=== PATIENT | male | born 1960 | race Caucasian/White ===

== ENCOUNTER 2016-11-06 10:56 | Emergency (ER) | payer OTHER ==
[~2016-11-06] VITALS: Ht 172.7 cm; Wt 51.0 kg
[~2016-11-06 10:56] MED LIST: CLON-379 PO; HYDR-3498 PO; LANT3I SC; METO-429 PO; MYCO160 PO; NIFE30TA66 PO; PRED-253 PO; PROM25TA14 PO; TACR1CAP26 PO
[2016-11-06 11:07] VITALS: Ht 172.7 cm; Wt 51.0 kg
[2016-11-06] MEDS ORDERED: CEPH-443 PO (11:49)
--- NOTE | 2016-11-06 12:04 | ERD ---
ER Documentation Chief Complaint Date/Time DATE: 11/06/16 TIME: 12:02 Chief Complaint R hand thump pain x 6 days from cut, pt DM and R kidney tx. HPI Patient is insulin-dependent diabetic he has a right kidney transplant for 1 year. He is a 6 days ago he cut his right thumb and currently it is painful. He thinks it is infected. No fevers or chills ROS All systems reviewed and are negative except as per history of present illness. Medications Home Meds Active Scripts Cephalexin* (Keflex*) 500 Mg Capsule, 500 MG PO QID for 5 Days, CAP Prov:DILLAN FLORES DO 11/06/16 Hydrocodone Bit-Acetaminophen* ([place]*) 5-325 Mg Tab, 1 TAB PO Q4H, #10 TAB Prov:GREENRAYO DO 04/28/16 Promethazine Hcl* (Phenergan*) 25 Mg Tablet, 25 MG PO Q6H Y for NAUSEA, #14 TAB Prov:GREENMOLLYRAYO DO 04/28/16 Nifedipine* (Procardia XL*) 30 Mg/Bottle Tab.osm.24, 30 MG PO DAILY, #30 TAB.SA FOR BP >140 Prov:GONZALO CR PAPER SHEETER 04/14/15 Metoprolol Tartrate* (Lopressor*) 50 Mg Tab, 50 MG PO BID, #60 TAB Prov:GONZALO CR PAPER SHEETER 04/14/15 Reported Medications Insulin Glargine* (Lantus*) 100 Unit/Ml Soln, 10 UNIT SC QAM, #1 VIAL 04/28/16 Mycophenolate Sodium* (Myfortic*) 180 Mg Tab, 540 MG PO BID, TAB 06/03/14 Clonidine Hcl* (Clonidine Hcl*) 0.1 Mg Tab, 0.1 MG PO Q4H Y for ELEVATED BLOOD PRESSURE, TAB PRN FOR SBP>160 06/03/14 Prednisone (Prednisone) 5 Mg Tablet, 5 MG PO DAILY, 0 Refills 11/26/10 Tacrolimus* (Prograf*) 1 Mg Capsule, 3 MG PO BID, 0 Refills 11/26/10 Allergies Allergies: Coded Allergies: magnesium (Verified Allergy, Intermediate, 11/06/16) NUMBNESS AND HOT FUSHES PMhx/Soc History of Surgery: Yes (RENAL TRANSPLANT,) Anesthesia Reaction: No Hx 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 Disorder: No Hx Respiratory Disorders: No Hx Cardiac Disorders: Yes (HTN) Hx Psychiatric Problems: No Hx Miscellaneous Medical Probl: Yes (prior polysubstance abuse) Hx Alcohol Use: Yes (2 CANS OF BEER) Hx Substance Use: No Hx Tobacco Use: Yes Smoking Status: Current every day smoker Physical Exam Vitals Vital Signs Date Time Temp Pulse Resp B/P Pulse Ox O2 Delivery O2 Flow Rate FiO2 11/06/16 11:07 98.1 67 16 123/76 98 Physical Exam Const: [] Head: Atraumatic Eyes: Normal Conjunctiva ENT: Normal External Ears, Nose and Mouth. Neck: Full range of motion..~ No meningismus. Resp: Clear to auscultation bilaterally Cardio: Regular rate and rhythm, no murmurs Abd: Soft, non tender, non distended. Normal bowel sounds Skin: No petechiae or rashes Back: No midline or flank tenderness Ext: No cyanosis, . He has a few fingers that have been amputated distally. His right thumb at the distal edge has mild to moderate tenderness to palpation with very faint eschar no warmth no erythema no fluctuance no induration. Neur: Awake and alert Psych: Normal Mood and Affect Procedures/MDM This may be an early infection so I will treat him with antibiotics Keflex. At this point I doubt it is osteomyelitis since it is too early is no fevers or chills. His skin is mostly intact. Differential includes abscess or cellulitis or gangrenous finger dry gangrene or wet gangrene or osteomyelitis. Departure Diagnosis: Primary Impression: Pain of finger of right hand Condition: Stable Patient Instructions: Staph Infection (non-MRSA) DILLAN FLORES DO Nov 06, 2016 12:04
== END 2016-11-06 12:00 | disposition home or self-care (01) ==
LOC: FTE 10:56
DX: M79.641 Pain in right hand (principal); E11.9 Type 2 diabetes mellitus without complications; I10 Essential (primary) hypertension; F17.210 Nicotine dependence, cigarettes, uncomplicated; Z79.4 Long term (current) use of insulin
CPT/HCPCS: 99283

== ENCOUNTER 2016-11-14 15:31 | Emergency (ER) | payer OTHER ==
[~2016-11-14] VITALS: Wt 50.5 kg
[~2016-11-14 15:31] MED LIST changes: +CEPH-443 PO
--- NOTE | 2016-11-14 17:00 | RADRPT ---
PROCEDURE: XR Thumb. CLINICAL INDICATION: Right thumb pain TECHNIQUE: Three views of the right thumb are available for review. COMPARISON: None available FINDINGS: There is no acute osseous or articular abnormality. No evidence for fracture. Bone mineral density is preserved. The articular surfaces are smooth without evidence of marginal erosions. There is sof t tissue swelling. Extensive atherosclerotic vascular calcifications are present. IMPRESSION: 1. Soft tissue swelling. 2. No evidence of cortical destruction or soft tissue gas to suggest osteomyelitis. Please note th at MRI is more sensitive in evaluating for early changes of osteomyelitis. 3. Atherosclerotic vascular calcifications. RPTAT: XX .Isiah Sims MD, MD Date Time Electronically viewed and signed by .Isiah Sims MD, on 11/14/2016 16:59 .d/
[2016-11-14] MEDS ORDERED: NEOM28OI TP (17:18)
[2016-11-14] MEDS ORDERED: DOXY100T20 PO (17:18)
--- NOTE | 2016-11-14 17:23 | ERD ---
ER Documentation Chief Complaint Date/Time DATE: 11/14/16 TIME: 17:20 Chief Complaint fingertip "infection" unresolved post antbx, dark area on tip. hx dm, ampt. HPI This 56-year-old male complains of pain in discoloration of his right thumb tip over the last week. He was seen here and prescribed antibiotics. He is here for recheck. There is a dark area on the tip. Denies any restricted range of motion weakness. 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 There is a history of insulin-dependent diabetes, dialysis and renal transplant. 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 ROS All systems reviewed and are negative except as per history of present illness. Medications Home Meds Active Scripts Doxycycline Hyclate* (Doxycycline Hyclate*) 100 Mg Tablet.dr, 100 MG PO BID for 10 Days, #20 TAB Prov:KAYLIN SAUL MD 11/14/16 Neomycin Sutton/Bacitrac Zn/Poly (Triple Antibiotic Ointment) 28 Gm Oint...g., 28 GM TP BID for 10 Days Prov:KAYLIN SAUL MD 11/14/16 Cephalexin* (Keflex*) 500 Mg Capsule, 500 MG PO QID for 5 Days, CAP Prov:DILLAN FLORES DO 11/06/16 Hydrocodone Bit-Acetaminophen* ([place]*) 5-325 Mg Tab, 1 TAB PO Q4H, #10 TAB Prov:RAYO KRAFT DO 04/28/16 Promethazine Hcl* (Phenergan*) 25 Mg Tablet, 25 MG PO Q6H Y for NAUSEA, #14 TAB Prov:GREENRAYO DO 04/28/16 Nifedipine* (Procardia XL*) 30 Mg/Bottle Tab.osm.24, 30 MG PO DAILY, #30 TAB.SA FOR BP >140 Prov:GONZALO CR NP 04/14/15 Metoprolol Tartrate* (Lopressor*) 50 Mg Tab, 50 MG PO BID, #60 TAB Prov:GONZALO CR COSMETIC ACCOUNT COORDINATOR 04/14/15 Reported Medications Insulin Glargine* (Lantus*) 100 Unit/Ml Soln, 10 UNIT SC QAM, #1 VIAL 04/28/16 Mycophenolate Sodium* (Myfortic*) 180 Mg Tab, 540 MG PO BID, TAB 06/03/14 Clonidine Hcl* (Clonidine Hcl*) 0.1 Mg Tab, 0.1 MG PO Q4H Y for ELEVATED BLOOD PRESSURE, TAB PRN FOR SBP>160 06/03/14 Prednisone (Prednisone) 5 Mg Tablet, 5 MG PO DAILY, 0 Refills 11/26/10 Tacrolimus* (Prograf*) 1 Mg Capsule, 3 MG PO BID, 0 Refills 11/26/10 Allergies Allergies: Coded Allergies: magnesium (Verified Allergy, Intermediate, 11/06/16) NUMBNESS AND HOT FUSHES PMhx/Soc History of Surgery: Yes (RENAL TRANSPLANT,) Anesthesia Reaction: No Hx 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 Disorder: No Hx Respiratory Disorders: No Hx Cardiac Disorders: Yes (HTN) Hx Psychiatric Problems: No Hx Miscellaneous Medical Probl: Yes (prior polysubstance abuse, DMII) Hx Alcohol Use: Yes (2 CANS OF BEER) Hx Substance Use: No Hx Tobacco Use: Yes Smoking Status: Former smoker Physical Exam Vitals Vital Signs Date Time Temp Pulse Resp B/P Pulse Ox O2 Delivery O2 Flow Rate FiO2 11/14/16 15:38 97.6 74 20 109/72 98 Physical Exam Const: [] Alert, [id number]. Head: Atraumatic Eyes: Normal Conjunctiva ENT: Normal External Ears, Nose and Mouth. Neck: Full range of motion..~ No meningismus. Resp: Clear to auscultation bilaterally Cardio: Regular rate and rhythm, no murmurs Abd: Soft, non tender, non distended. Normal bowel sounds Skin: No petechiae or rashes. On the tip of the right thumb there is a small superficial fluctuant paronychia type lesion without significant erythema or warmth or streaking prednisone appreciable bony tenderness or deformities. Small amount of purulent discharge is expressed from the fingertip. Back: No midline or flank tenderness Ext: No cyanosis, or edema Neur: Awake and alert Psych: Normal Mood and Affect Procedures/MDM X-ray righ thumb 2V Interpreted by me: Bones: [No fracture] Joints: [No dislocation] Foreign body: [None]. Impression-normal right thumb x-ray Procedure note-the right thumb tip was debrided of a small paronychial lesion and unroofed. The wound was dressed. This patient presents with a history of severe vascular disease and signs of a paronychia which does not appear to result in any significant deeper infection. There is no evidence of tenosynovitis, osteomyelitis currently but patient certainly is at risk given his comorbidities.. Will be treated with doxycycline, instructions for wound care and referral to hand surgeon for further evaluation treatment. Departure Diagnosis: Primary Impression: Paronychia of finger of right hand Additional Impression: Pain of finger Laterality: right Qualified Code: M79.644 - Pain of finger of right hand Condition: Stable Patient Instructions: Paronychia Referrals: LINN ELLSI MD Additional Instructions: X-ray read as normal. Recheck for worsening redness, fevers, new symptoms. See orthopedist for further evaluation and treatment. KAYLIN SAUL MD Nov 14, 2016 17:22
== END 2016-11-14 17:33 | disposition home or self-care (01) ==
LOC: FTE 15:31
DX: L03.011 Cellulitis of right finger (principal); I10 Essential (primary) hypertension; E11.9 Type 2 diabetes mellitus without complications; Z79.4 Long term (current) use of insulin; Z79.84 Long term (current) use of oral hypoglycemic drugs; Z87.891 Personal history of nicotine dependence
CPT/HCPCS: 29125; 73140; Z7502

== ENCOUNTER 2017-02-03 12:28 | Emergency (ER) | payer OTHER ==
[~2017-02-03] VITALS: Ht 157.5 cm; Wt 62.1 kg
[~2017-02-03 12:28] MED LIST changes: +DOXY100T20 PO; +NEOM28OI TP
[2017-02-03 12:31] VITALS: Ht 157.5 cm; Wt 62.1 kg
[2017-02-03] MEDS ORDERED: CEPHALEXIN 500 MG CAP PO ONE (14:00)
[2017-02-03] MEDS ORDERED: TRIMETHOPRIM/SULFAMETHOX (DS) TAB PO ONE (14:00)
[2017-02-03] MEDS ORDERED: NEOM28OI TP (14:13)
[2017-02-03] MEDS ORDERED: CEPH-443 PO (14:13)
[2017-02-03] MEDS ORDERED: BACTDS PO (14:13)
--- NOTE | 2017-02-03 14:15 | ERD ---
ER Documentation Chief Complaint Date/Time DATE: 02/03/17 TIME: 14:13 Chief Complaint left ring figer,nailbed, pain HPI This 56-year-old male complains of some redness and pain near the nail on his left fourth digit. 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 He states that he was cutting his nails may have cut them too short. Denies any fevers, restricted range of motion or weakness. ROS All systems reviewed and are negative except as per history of present illness. Medications Home Meds Active Scripts Cephalexin* (Keflex*) 500 Mg Capsule, 500 MG PO QID for 7 Days, CAP Prov:KAYLIN SAUL MD 02/03/17 Sulfamethoxazole-Trimethoprim* (Bactrim* DS) 800-160 Mg Tab, 1 TAB PO BID for 7 Days, TAB Prov:KAYLIN SAUL MD 02/03/17 Neomycin Sutton/Bacitrac Zn/Poly (Triple Antibiotic Ointment) 28 Gm Oint...g., 28 GM TP TID for 7 Days Prov:KAYLIN SAUL MD 02/03/17 Doxycycline Hyclate* (Doxycycline Hyclate*) 100 Mg Tablet.dr, 100 MG PO BID for 10 Days, #20 TAB Prov:KAYLIN SAUL MD 11/14/16 Neomycin Sutton/Bacitrac Zn/Poly (Triple Antibiotic Ointment) 28 Gm Oint...g., 28 GM TP BID for 10 Days Prov:KAYLIN SAUL MD 11/14/16 Cephalexin* (Keflex*) 500 Mg Capsule, 500 MG PO QID for 5 Days, CAP Prov:DILLAN FLORES DO 11/06/16 Hydrocodone Bit-Acetaminophen* ([place]*) 5-325 Mg Tab, 1 TAB PO Q4H, #10 TAB Prov:RAYO KRAFT DO 04/28/16 Promethazine Hcl* (Phenergan*) 25 Mg Tablet, 25 MG PO Q6H Y for NAUSEA, #14 TAB Prov:RAYO KRAFT DO 04/28/16 Nifedipine* (Procardia XL*) 30 Mg/Bottle Tab.osm.24, 30 MG PO DAILY, #30 TAB.SA FOR BP >140 Prov:GONZALO CR CHILD CARE COORDINATOR 04/14/15 Metoprolol Tartrate* (Lopressor*) 50 Mg Tab, 50 MG PO BID, #60 TAB Prov:GONZALO CR CHILD CARE COORDINATOR 04/14/15 Reported Medications Insulin Glargine* (Lantus*) 100 Unit/Ml Soln, 10 UNIT SC QAM, #1 VIAL 04/28/16 Mycophenolate Sodium* (Myfortic*) 180 Mg Tab, 540 MG PO BID, TAB 06/03/14 Clonidine Hcl* (Clonidine Hcl*) 0.1 Mg Tab, 0.1 MG PO Q4H Y for ELEVATED BLOOD PRESSURE, TAB PRN FOR SBP>160 06/03/14 Prednisone (Prednisone) 5 Mg Tablet, 5 MG PO DAILY, 0 Refills 11/26/10 Tacrolimus* (Prograf*) 1 Mg Capsule, 3 MG PO BID, 0 Refills 11/26/10 Allergies Allergies: Coded Allergies: magnesium (Verified Allergy, Intermediate, 11/06/16) NUMBNESS AND HOT FUSHES PMhx/Soc History of Surgery: Yes (RENAL TRANSPLANT,) Anesthesia Reaction: No Hx 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 Disorder: No Hx Respiratory Disorders: No Hx Cardiac Disorders: Yes (HTN) Hx Psychiatric Problems: No Hx Miscellaneous Medical Probl: Yes (prior polysubstance abuse, DMII) Hx Alcohol Use: Yes (2 CANS OF BEER) Hx Substance Use: No Hx Tobacco Use: Yes Smoking Status: Never smoker Physical Exam Vitals Vital Signs Date Time Temp Pulse Resp B/P Pulse Ox O2 Delivery O2 Flow Rate FiO2 02/03/17 12:31 98.1 83 18 131/85 99 Physical Exam Const: [] Alert, [id number] per Head: Atraumatic Eyes: Normal Conjunctiva ENT: Normal External Ears, Nose and Mouth. Neck: Full range of motion..~ No meningismus. Resp: Clear to auscultation bilaterally Cardio: Regular rate and rhythm, no murmurs Abd: Soft, non tender, non distended. Normal bowel sounds Skin: No petechiae or rashes Back: No midline or flank tenderness Ext: No cyanosis, or edema. There is some redness and tenderness on the lateral aspect of the nail of the left fourth digit. There is no bony tenderness or deformities or significant swelling. Neur: Awake and alert Psych: Normal Mood and Affect Results 24 hrs Current Medications Medications (Trade) Dose Ordered Sig/Kathryn Route PRN Reason Start Time Stop Time Status Last Admin Dose Admin Trimethoprim/ Sulfamethoxazole (Bactrim (Ds)) 1 tab ONCE ONCE PO 02/03/17 14:00 02/03/17 14:01 DC 02/03/17 14:07 Cephalexin (Keflex) 500 mg ONCE ONCE PO 02/03/17 14:00 02/03/17 14:01 DC 02/03/17 14:07 Procedures/[facility] Procedure note- Left fourth digit was prepped with alcohol. The paronychia was debrided and positive pus is expressed. Wound was dressed and patient tolerated procedure well. Patient presents with a paronychia left fourth digit. There is no signs to suggest osteomyelitis, acute ischemia or gangrene. Patient was treated with Bactrim and Keflex instructions to recheck in 2 days otherwise with primary care doctor this week. Return sooner for fevers, redness, new or worsening symptoms with additional discoloration or signs of ischemia. Departure Diagnosis: Primary Impression: Paronychia Laterality: left Qualified Code: L03.012 - Paronychia, left Condition: Stable Patient Instructions: Paronychia Additional Instructions: Recheck for worsening redness, fevers, new or worsening symptoms. KAYLIN SAUL MD Feb 03, 2017 14:15
== END 2017-02-03 14:34 | disposition home or self-care (01) ==
LOC: FTE 12:28
DX: L03.012 Cellulitis of left finger (principal); E11.9 Type 2 diabetes mellitus without complications; I10 Essential (primary) hypertension; Z87.891 Personal history of nicotine dependence
CPT/HCPCS: Z7502; Z7610; 99284

== ENCOUNTER 2017-04-11 13:05 | Emergency (ER) | payer OTHER ==
[~2017-04-11] VITALS: Ht 157.5 cm; Wt 52.0 kg
[~2017-04-11 13:05] MED LIST changes: +BACTDS PO
[2017-04-11 13:19] VITALS: Ht 157.5 cm; Wt 52.0 kg
[2017-04-11] MEDS ORDERED: SOD CHLORIDE 0.9% 1,000 ML IV STA (13:29)
[2017-04-11 14:09] LABS: ADD SCAN DIFF NO
[2017-04-11 14:12] LABS: ABNORMAL IP MESSAGE 1; BASOPHILS % 0.7 % (0.0-2.0); EOSINOPHILS % 0.5 % (0.0-7.0); HEMATOCRIT 48.1 % (42.0-52.0); HEMOGLOBIN 16.1 g/dl (14.0-18.0); LYMPHOCYTES # 0.4 10^3/ul (0.8-2.9); MEAN CORPUSCULAR HEMOGLOBIN 34.5 pg (29.0-33.0); MEAN CORPUSCULAR HGB CONC 33.5 g/dl (32.0-37.0); MEAN CORPUSCULAR VOLUME 103.2 fl (82.0-101.0); MONOCYTE # 0.3 10^3/ul (0.3-0.9); MONOCYTES % 7.4 % (0.0-11.0); NEUTROPHIL # 3.6 10^3/ul (1.6-7.5); NEUTROPHILS % 81.9 % (39.0-77.0); PLATELET COUNT 188 10^3/UL (140-415); RED BLOOD COUNT 4.66 10^6/ul (4.70-6.10); WHITE BLOOD COUNT 4.3 10^3/ul (4.8-10.8)
[2017-04-11 14:15] LABS: ADD UMIC YES; URINE BILIRUBIN (Dip) NEGATIVE (NEGATIVE); URINE BLOOD (Dip) TRACE (NEGATIVE); URINE COLOR LT. YELLOW (YELLOW); URINE GLUCOSE (Dip) NEGATIVE (NEGATIVE); URINE KETONES (Dip) NEGATIVE (NEGATIVE); URINE LEUKOCYTE ESTERASE (Dip) NEGATIVE (NEGATIVE); URINE NITRITE (Dip) NEGATIVE (NEGATIVE); URINE TOTAL PROTEIN (Dip) 2+ (NEGATIVE); URINE UROBILINOGEN (Dip) 0.2 E.U./dL (0.1-1.0)
--- NOTE | 2017-04-11 14:20 | ERD ---
ER Documentation Chief Complaint Date/Time DATE: 04/11/17 TIME: 14:18 Chief Complaint Complains of right finger pain and swelling x 2 days HPI 56-year-old male history of diabetes, history of osteomyelitis comes to emergency department right third digit pain and swelling, headache, generalized weakness, and vomiting. 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 He states that it is clear to yellow drainage and there is pain at the tip of the finger. He also complains of generalized headache, and he threw up one time this morning. He has felt generally weak today. He denies any fevers, chills, neck stiffness, chest pain or abdominal pain. This patient also secondarily comes in with right third digit pain 1 day. 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 Patient's pain today is better. ROS All systems reviewed and are negative except as per history of present illness. Medications Home Meds Active Scripts Hydrocodone/Acetaminophen ([place] 5-325 Tablet) 1 Each Tablet, 1 TAB PO Q6H Y for PAIN, #10 TAB Prov:JEAN-PIERRE CAMPBELL PA-C 04/11/17 Sulfamethoxazole/Trimethoprim* (Bactrim Ds* Tablet) 1 Each Tablet, 1 TAB PO BID , #14 TAB Prov:JEAN-PIERRE CAMPBELL PA-C 04/11/17 Cephalexin* (Keflex*) 500 Mg Capsule, 500 MG PO QID for 7 Days, CAP Prov:JEAN-PIERRE CAMPBELL PA-C 04/11/17 Cephalexin* (Keflex*) 500 Mg Capsule, 500 MG PO QID for 7 Days, CAP Prov:KAYLIN BLUE MD 02/03/17 Sulfamethoxazole-Trimethoprim* (Bactrim* DS) 800-160 Mg Tab, 1 TAB PO BID for 7 Days, TAB Prov:KAYLIN BLUE MD 02/03/17 Neomycin [place]/Bacitrac Zn/Poly (Triple Antibiotic Ointment) 28 Gm Oint...g., 28 GM TP TID for 7 Days Prov:KAYLIN BLUE MD 02/03/17 Doxycycline Hyclate* (Doxycycline Hyclate*) 100 Mg Tablet.dr, 100 MG PO BID for 10 Days, #20 TAB Prov:KAYLIN BLUE MD 11/14/16 Neomycin [place]/Bacitrac Zn/Poly (Triple Antibiotic Ointment) 28 Gm Oint...g., 28 GM TP BID for 10 Days Prov:KAYLIN BLUE MD 11/14/16 Cephalexin* (Keflex*) 500 Mg Capsule, 500 MG PO QID for 5 Days, CAP Prov:DILLAN FLORES DO 11/06/16 Hydrocodone Bit-Acetaminophen* ([place]*) 5-325 Mg Tab, 1 TAB PO Q4H, #10 TAB Prov:RAYO KRAFT DO 04/28/16 Promethazine Hcl* (Phenergan*) 25 Mg Tablet, 25 MG PO Q6H Y for NAUSEA, #14 TAB Prov:RAYO KRAFT DO 04/28/16 Nifedipine* (Procardia XL*) 30 Mg/Bottle Tab.osm.24, 30 MG PO DAILY, #30 TAB.SA FOR BP >140 Prov:GONZALO CR NP 04/14/15 Metoprolol Tartrate* (Lopressor*) 50 Mg Tab, 50 MG PO BID, #60 TAB Prov:GONZALO CR NP 04/14/15 Reported Medications Insulin Glargine* (Lantus*) 100 Unit/Ml Soln, 10 UNIT SC QAM, #1 VIAL 04/28/16 Mycophenolate Sodium* (Myfortic*) 180 Mg Tab, 540 MG PO BID, TAB 06/03/14 Clonidine Hcl* (Clonidine Hcl*) 0.1 Mg Tab, 0.1 MG PO Q4H Y for ELEVATED BLOOD PRESSURE, TAB PRN FOR SBP>160 06/03/14 Prednisone (Prednisone) 5 Mg Tablet, 5 MG PO DAILY, 0 Refills 11/26/10 Tacrolimus* (Prograf*) 1 Mg Capsule, 3 MG PO BID, 0 Refills 11/26/10 Allergies Allergies: Coded Allergies: magnesium (Verified Allergy, Intermediate, 11/06/16) NUMBNESS AND HOT FUSHES PMhx/Soc History of Surgery: Yes (RENAL TRANSPLANT,) Anesthesia Reaction: No Hx 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 Disorder: No Hx Respiratory Disorders: No Hx Cardiac Disorders: Yes (HTN) Hx Psychiatric Problems: No Hx Miscellaneous Medical Probl: Yes (prior polysubstance abuse, DMII) Hx Alcohol Use: Yes (2 CANS OF BEER) Hx Substance Use: No Hx Tobacco Use: Yes Smoking Status: Never smoker Physical Exam Vitals Vital Signs Date Time Temp Pulse Resp B/P Pulse Ox O2 Delivery O2 Flow Rate FiO2 04/11/17 13:19 97.8 77 20 176/94 100 Physical Exam General: Well-developed, well-nourished. The patient appears in no acute distress. HEENT: Head is normocephalic, atraumatic. No scleral icterus. Pupils are equal , round, and reactive. Oral mucous membranes are moist. No pharyngeal erythema. Neck: Supple. Nontender. Lungs: Clear to auscultation. Normal air movement. Heart: Regular rate and rhythm. S1 and S2 are normal. No murmurs, gallops, or rubs. Abdomen: Soft, nontender, nondistended. Bowel sounds are normoactive. Extremities: Multiple amputations of digits, the right third digit nailbed is intact, there is slight erythema and tenderness at the tip of the finger below the nailbed. Right third digit has slight drainage beneath the nail. No erythema, or warmth, cap refill < 2sec. Neurologic: Alert and oriented 3. No focal deficits. Skin: Normal turgor. No rash or lesions. Result Diagram: 04/11/17 1355 04/11/17 1355 Results 24 hrs Laboratory Tests Test 04/11/17 13:55 04/11/17 14:05 White Blood Count 4.310^3/ul Red Blood Count 4.6610^6/ul Hemoglobin 16.1g/dl Hematocrit 48.1% Mean Corpuscular Volume 103.2fl Mean Corpuscular Hemoglobin 34.5pg Mean Corpuscular Hemoglobin Concent 33.5g/dl Red Cell Distribution Width 12.0% Platelet Count 20213^3/UL Mean Platelet Volume 11.0fl Neutrophils % 81.9% Lymphocytes % 9.0% Monocytes % 7.4% Eosinophils % 0.5% Basophils % 0.7% Nucleated Red Blood Cells % 0.0/100WBC Neutrophils # 3.610^3/ul Lymphocytes # 0.410^3/ul Monocytes # 0.310^3/ul Eosinophils # 0.010^3/ul Basophils # 0.010^3/ul Nucleated Red Blood Cells # 0.010^3/ul Sodium Level 144mmol/L Potassium Level 5.4mmol/L Chloride Level 107mmol/L Carbon Dioxide Level 25mmol/L Anion Gap 17 Blood Urea Nitrogen 20mg/dl Creatinine 1.34mg/dl Glucose Level 160mg/dl Calcium Level 10.9mg/dl Total Bilirubin 0.8mg/dl Direct Bilirubin 0.00mg/dl Indirect Bilirubin 0.8mg/dl Aspartate Amino Transf (AST/SGOT) 115IU/L Alanine Aminotransferase (ALT/SGPT) 110IU/L Alkaline Phosphatase 112IU/L Troponin I 0.018ng/ml Total Protein 8.9g/dl Albumin 5.0g/dl Globulin 3.90g/dl Albumin/Globulin Ratio 1.28 Urine Color LT. YELLOW Urine Clarity CLEAR Urine pH 6.0 Urine Specific [place] 1.020 Urine Ketones NEGATIVE Urine Nitrite NEGATIVE Urine Bilirubin NEGATIVE Urine Urobilinogen 0.2 E.U./dL Urine Leukocyte Esterase NEGATIVE Urine Microscopic RBC 2-5/HPF Urine Microscopic WBC 5-10/HPF Urine Hemoglobin TRACE Urine Glucose NEGATIVE% Urine Total Protein 2+ Current Medications Medications (Trade) Dose Ordered Sig/Kathryn Route PRN Reason Start Time Stop Time Status Last Admin Dose Admin Sodium Chloride (NS) 1,000 ml @ 1,000 mls/hr Q1H STAT IV 04/11/17 13:29 04/11/17 14:28 DC 04/11/17 14:37 Morphine Sulfate (morphine) 4 mg ONCE STAT IV 04/11/17 15:02 04/11/17 15:03 DC 04/11/17 15:05 Ondansetron HCl (Zofran Inj) 4 mg ONCE STAT IV 04/11/17 15:02 04/11/17 15:03 DC 04/11/17 15:05 12-lead EKG(interpreted by supervising physician): Dr. Blue Rate/Rhythm: Normal Sinus Rhythm, rate of 67 QRS, ST, T-waves: Nonspecific ST changes, no reciprocal changes, no changes consistent w/ acute ischemia, no intervals, no dysrhythmias, no ectopy Impression: No evidence of ischemia or arrhythmia Patient: MELITA GRIFFIN : 1960 Age: 56 Sex: M MR #: [id number] DOS: 04/11/17 1329 Ordering MD: JEAN-PIERRE CAMPBELL PA-C Location: [facility] Room/Bed: PROCEDURE: XR Chest. CLINICAL INDICATION: Abdominal pain. TECHNIQUE: Single frontal view of the chest was obtained. COMPARISON: Chest x-ray 04/28/2060 09:[address] scan abdomen pelvis 2014. FINDINGS: There is soft tissue calcifications in the medial aspect of the left arm. There are degenerative osteophytes in the thoracic spine. The heart, cardiomediastinal silhouette and hilar structures are normal. The pulmonary vasculature is normal. There is a left-sided aorta. The lungs are mildly hyperinflated with flattening of the diaphragm. There is a stable 1.1 cm calcification projecting over the medial aspect of the left diaphragm. This corresponds to a calcified lymph node or granuloma a resting in the epidural space ventral to the right ventricle. This is seen on the prior CT scan of . The costophrenic angles are normal. IMPRESSION: 1. Soft tissue calcifications are noted in the anterior mediastinum and medial left arm which may relate to renal osteodystrophy. 2. Pulmonary hyperinflation with no evidence of active cardiopulmonary disease in the chest. There is no evidence of pneumoperitoneum. RPTAT:AAJJ Physician Johanny Date Time Electronically viewed and signed by Jonas Ferraro Physician on 04/11/2017 14:46 JM/ CC: JEAN-PIERRE CAMPBELL PA-C PROCEDURE: XR finger CLINICAL INDICATION: Right middle finger pain TECHNIQUE: 3 views of the right middle finger were obtained. COMPARISON: No prior studies are available for comparison. FINDINGS: There is truncation of the third distal tuft, query postoperative change. Cannot exclude infection at the tip. There is also amputation at the head of the second proximal phalanx. There are extensive vascular calcifications. IMPRESSION: 1. Truncation of the third distal tuft, query postoperative change. Cannot exclude osteomyelitis at the tip of and if there is persistent clinical concern recommend MRI. RPTAT: UU .Parveen James MD, Date Time Electronically viewed and signed by .Parveen James MD, on 04/11/2017 14: 48 .K/ CC: JEAN-PIERRE CAMPBELL PA-C Procedures/MDM Number ER course: Patient had a line established, blood and urine were obtained. He was given a fluid bolus of normal saline 1 L, morphine 4 mg and Zofran 4 mg IV for pain. He was reassessed and states that he is feeling much better at this time. MDM: 56-year-old male comes to the ER for generalized weakness, nausea and headache. Patient's workup was essentially benign. There is no evidence of leukocytosis. Patient has a history of hepatitis C, with mild transaminitis. Creatinine is 1.34, he reports that that is been normal and his medical record was reviewed and a few months ago it was approximately 1.3 previously. Potassium was 5.4, there are no EKG changes, including peak T waves. Patient has not been seen previously and his potassium has been 5.3 and 5.0. No signs of sepsis, renal failure. Overall he is feeling fine, he was given fluids and pain medication and feels much better at this time. I will give him a short course of [place] for home for pain control. 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 He states he has had improved pain starting today. Given his history patient recovered with antibiotics. At this time suspicion for osteomyelitis or limb threatening process is low. The case was reviewed and discussed with Dr. Blue who agrees with the plan of care including labs, treatment, and advanced imaging as appropriate. Patient's blood pressure was elevated (>120/80) but appears stable without evidence of hypertension emergency or urgency. The patient was counseled about the risks of hypertension and urged to pursue outpatient monitoring and therapy within a week with their primary care physician. Departure Diagnosis: Primary Impression: General weakness Additional Impression: Pain of finger Condition: Good JEAN-PIERRE CAMPBELL PA-C Apr 11, 2017 14:20
[2017-04-11 14:41] LABS: ALBUMIN/GLOBULIN RATIO 1.28; BILIRUBIN,INDIRECT 0.8 mg/dl (0-1.1); BILIRUBIN,TOTAL 0.8 mg/dl (0.2-1.3); CALCIUM 10.9 mg/dl (8.4-10.2); CREATININE 1.34 mg/dl (0.61-1.24); POTASSIUM 5.4 mmol/L (3.5-5.1); TOTAL PROTEIN 8.9 g/dl (6.1-8.1)
--- NOTE | 2017-04-11 14:46 | RADRPT ---
PROCEDURE: XR Chest. CLINICAL INDICATION: Abdominal pain. TECHNIQUE: Single frontal view of the chest was obtained. COMPARISON: Chest x-ray 04/28/2060 09:[address] scan abdomen pelvis 12/24/2014. FINDINGS: There is soft tissue calcifications in the medial aspect of the left arm. There are degenerative os teophytes in the thoracic spine. The heart, cardiomediastinal silhouette and hilar structures are n ormal. The pulmonary vasculature is normal. There is a left-sided aorta. The lungs are mildly hyper inflated with flattening of the diaphragm. There is a stable 1.1 cm calcification projecting over t he medial aspect of the left diaphragm. This corresponds to a calcified lymph node or granuloma a r esting in the epidural space ventral to the right ventricle. This is seen on the prior CT scan of 0 12/24/2014. The costophrenic angles are normal. IMPRESSION: 1. Soft tissue calcifications are noted in the anterior mediastinum and medial left arm which may re late to renal osteodystrophy. 2. Pulmonary hyperinflation with no evidence of active cardiopulmonary disease in the chest. There is no evidence of pneumoperitoneum. RPTAT:AAJJ Physician Johanny Date Time Electronically viewed and signed by Physician Johanny on 04/11/2017 14:46 MARINE/
--- NOTE | 2017-04-11 14:48 | RADRPT ---
PROCEDURE: XR finger CLINICAL INDICATION: Right middle finger pain TECHNIQUE: 3 views of the right middle finger were obtained. COMPARISON: No prior studies are available for comparison. FINDINGS: There is truncation of the third distal tuft, query postoperative change. Cannot exclude infection at the tip. There is also amputation at the head of the second proximal phalanx. There are extensi ve vascular calcifications. IMPRESSION: 1. Truncation of the third distal tuft, query postoperative change. Cannot exclude osteomyelitis a t the tip of and if there is persistent clinical concern recommend MRI. RPTAT: UU .Parveen James MD, MD Date Time Electronically viewed and signed by .Parveen James MD, on 04/11/2017 14:48 .K/
[2017-04-11 14:53] LABS: TROPONIN-I 0.018 ng/ml (0.00-0.12)
[2017-04-11] MEDS ORDERED: morphine 4 MG/ML VIAL IV STA (15:02)
[2017-04-11] MEDS ORDERED: ONDANSETRON 4 MG INJ IV STA (15:02)
[2017-04-11] MEDS ORDERED: CEPH-443 PO (15:26)
[2017-04-11] MEDS ORDERED: SULF1TAB31 PO (15:26)
[2017-04-11] MEDS ORDERED: HYDR-906 PO (15:26)
[2017-04-11 16:51] VITALS: TEMP 98.2
== END 2017-04-11 16:51 | disposition home or self-care (01) ==
LOC: FTE 13:05
DX: R53.1 Weakness (principal); E11.9 Type 2 diabetes mellitus without complications; I10 Essential (primary) hypertension; Z79.4 Long term (current) use of insulin
CPT/HCPCS: 36415; 71010; 73140; 80053; 81001; 84484; 85025; 87040; 87086; 96374; 96375; J2270; J2405; J7030; Z7502

== ENCOUNTER 2017-05-03 18:29 | Inpatient (IN) | payer OTHER ==
[~2017-05-03] VITALS: Ht 172.7 cm; Wt 52.0 kg
[~2017-05-03 18:29] MED LIST changes: +HYDR-906 PO; +SULF1TAB31 PO
[2017-05-03] MEDS ORDERED: ONDANSETRON 4 MG INJ IV STA (18:50)
[2017-05-03] MEDS ORDERED: morphine 4 MG/ML VIAL IV STA (18:50)
[2017-05-03] MEDS ORDERED: SOD CHLORIDE 0.9% 1,000 ML IV STA (18:50)
[2017-05-03] MEDS ORDERED: ONDANSETRON 4 MG INJ IV PRN (19:00)
[2017-05-03] MEDS ORDERED: ACETAMINOPHEN 325 MG TAB PO PRN ×2 (19:00→20:00)
[2017-05-03 19:21] LABS: ABNORMAL IP MESSAGE 1; BASOPHILS % 0.5 % (0.0-2.0); EOSINOPHILS # 0.1 10^3/ul (0.0-0.5); EOSINOPHILS % 1.9 % (0.0-7.0); HEMATOCRIT 45.8 % (42.0-52.0); HEMOGLOBIN 15.1 g/dl (14.0-18.0); LYMPHOCYTES # 0.5 10^3/ul (0.8-2.9); LYMPHOCYTES % 13.6 % (15.0-51.0); MEAN CORPUSCULAR HEMOGLOBIN 34.6 pg (29.0-33.0); MEAN CORPUSCULAR VOLUME 104.8 fl (82.0-101.0); MEAN PLATELET VOLUME 10.7 fl (7.4-10.4); MONOCYTE # 0.5 10^3/ul (0.3-0.9); MONOCYTES % 13.6 % (0.0-11.0); NEUTROPHIL # 2.6 10^3/ul (1.6-7.5); NEUTROPHILS % 70.1 % (39.0-77.0); PLATELET COUNT 148 10^3/UL (140-415); RED BLOOD COUNT 4.37 10^6/ul (4.70-6.10); RED CELL DISTRIBUTION WIDTH 13.2 % (11.5-14.5); WHITE BLOOD COUNT 3.7 10^3/ul (4.8-10.8)
[2017-05-03 19:23] LABS: ADD SCAN DIFF NO
[2017-05-03 19:56] LABS: ADD UMIC YES; UR ASCORBIC ACID NEGATIVE (NEGATIVE); UR BILIRUBIN (Dip) NEGATIVE (NEGATIVE); UR BLOOD (Dip) NEGATIVE (NEGATIVE); UR CLARITY CLEAR (CLEAR); UR COLOR YELLOW (YELLOW); UR GLUCOSE (Dip) NEGATIVE (NEGATIVE); UR KETONES (Dip) NEGATIVE (NEGATIVE); UR LEUKOCYTE ESTERASE (Dip) NEGATIVE Leu/ul (NEGATIVE); UR NITRITE (Dip) NEGATIVE (NEGATIVE); UR RBC 2 /HPF (0-5); UR SPECIFIC GRAVITY (Dip) 1.013 (1.003-1.030); UR TOTAL PROTEIN (Dip) 1+ mg/dl (NEGATIVE); UR UROBILINOGEN (Dip) NEGATIVE (NEGATIVE)
[2017-05-03] MEDS ORDERED: PANTOPRAZOLE 40 MG INJ IV ONE (20:00)
[2017-05-03] MEDS ORDERED: FUROSEMIDE 40 MG INJ IV ONE (20:00)
[2017-05-03 20:01] LABS: TROPONIN-I 0.032 ng/ml (0.00-0.12)
[2017-05-03 20:07] LABS: ALBUMIN 4.7 g/dl (3.3-4.9); ALBUMIN/GLOBULIN RATIO 1.56; BILIRUBIN,INDIRECT 0.4 mg/dl (0-1.1); BILIRUBIN,TOTAL 0.4 mg/dl (0.2-1.3); CALCIUM 10.6 mg/dl (8.4-10.2); CREATININE 1.46 mg/dl (0.61-1.24); POTASSIUM 4.3 mmol/L (3.5-5.1); TOTAL PROTEIN 7.7 g/dl (6.1-8.1)
--- NOTE | 2017-05-03 20:17 | CONS ---
Date/Time of Note Date/Time of Note DATE: 05/03/17 TIME: 20:17 Assessment/Plan Assessment/Plan Chief Complaint/Hosp Course Impression: 1. pancreatitis with elevated lipase 2. elevated transaminases 3. macrocytic anemia Recommendations: 1. NPO 2. IVF 3. check folic acid and B12 for macrocytic anemia 4. protonix 40 mg po bid 5. stool for occult blood 6. check acute hepatitis panel 7. trend amylase and lipase Problems: Consultation Date/Type/Reason Admit Date/Time Date of Consultation: May 03, 2017 Type of Consultation: GI Reason for Consultation abdominal pain, nausea and vomiting Hx of Present Illness 56-year-old male who is admitted for intractable abdominal pain, nausea and vomiting. He has h/o hypertension and diabetes. He presents with abdominal pain and vomiting. He had a kidney transplant done in 2009. He said that his last creatinine was 1.9 and his usual creatinine is 1.5. He saw his primary doctor last week. He is trying to take all of his antirejection medicines but said that he is vomiting the medications that he is taking. He said that his primary doctor is Dr. Lange. He denies EtOH use. No f, c, cp, sob, dysuria, dysphagia. all point ros administered, pertinent positives and negatives in HPI otherwise negative. Past Medical History Medical History: diabetes, GERD, hypertension, renal disease Past Surgical History s/p kidney transplant Family History Significant Family History: diabetes Social History Alcohol Use: none Smoking Status: Never smoker Drug Use: none Exam/Review of Systems Vital Signs Vitals Vital Signs Date Time Temp Pulse Resp B/P Pulse Ox O2 Delivery O2 Flow Rate FiO2 05/03/17 19:01 73 16 167/99 98 Room Air 05/03/17 18:32 98.8 Exam Constitutional: alert, oriented, well developed Psych: nl mood/affect, no complaints Head: atraumatic, normocephalic Eyes: EOMI, nl conjunctiva, nl lids, nl sclera ENMT: mucosa pink and moist, nl external ears & nose, nl lips & teeth, nl nasal mucosa & septum Neck: non-tender, supple Respiratory: clear to auscultation, normal air movement Cardiovascular: nl pulses, regular rate and rhythm Gastrointestinal: bowel sounds, non-tender, soft 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: nl mental status, nl speech, nl strength Results Result Diagram: 05/03/17190905/03/171909 Results 24 hrs Laboratory Tests Test 05/03/17 19:00 05/03/17 19:10 Urine Color YELLOW Urine Clarity CLEAR Urine pH 5.0 Urine Specific [place] 1.013 Urine Ketones NEGATIVE Urine Nitrite NEGATIVE Urine Bilirubin NEGATIVE Urine Urobilinogen NEGATIVE Urine Leukocyte Esterase NEGATIVE Urine Microscopic RBC 2 Urine Microscopic WBC 0 Urine Hemoglobin NEGATIVE Urine Glucose NEGATIVE Urine Total Protein 1+ H White Blood Count 3.7 L Red Blood Count 4.37 L Hemoglobin 15.1 Hematocrit 45.8 Mean Corpuscular Volume 104.8 H Mean Corpuscular Hemoglobin 34.6 H Mean Corpuscular Hemoglobin Concent 33.0 Red Cell Distribution Width 13.2 Platelet Count 148 # Mean Platelet Volume 10.7 H Neutrophils % 70.1 Lymphocytes % 13.6 L Monocytes % 13.6 H Eosinophils % 1.9 Basophils % 0.5 Nucleated Red Blood Cells % 0.0 Neutrophils # 2.6 Lymphocytes # 0.5 L Monocytes # 0.5 Eosinophils # 0.1 Basophils # 0.0 Nucleated Red Blood Cells # 0.0 Sodium Level 140 Potassium Level 4.3 Chloride Level 105 Carbon Dioxide Level 24 Anion Gap 15 Blood Urea Nitrogen 17 Creatinine 1.46 H Glucose Level 131 Calcium Level 10.6 H Total Bilirubin 0.4 Direct Bilirubin 0.00 Indirect Bilirubin 0.4 Aspartate Amino Transf (AST/SGOT) 97 H Alanine Aminotransferase (ALT/SGPT) 107 H Alkaline Phosphatase 93 Troponin I 0.032 Total Protein 7.7 Albumin 4.7 Globulin 3.00 Albumin/Globulin Ratio 1.56 Lipase 317 H Medications Medications Current Medications Clonidine (Catap[place]) 0.1 mg Q4H PRN PO ELEVATED BLOOD PRESSURE>150; Start at 20:00 Acetaminophen/ Hydrocodone Bitart ([place] (5/325)) 1 tab Q4H PO ; Start 05/03/17 at 20:00 Acetaminophen/ Hydrocodone Bitart ([place] (5/325)) 1 tab Q6H PRN PO PAIN; Start 05/03/17 at 20:00 Insulin Glargine (Lantus) 10 unit QAM SC ; Start 05/04/17 at 09:00 Metoprolol Tartrate (Lopressor) 50 mg BID PO ; Start 05/03/17 at 21:00 Mycophenolate Sodium (Myfortic) 540 mg BID PO ; Start 05/03/17 at 21:00 Nifedipine (Procardia Xl) 30 mg DAILY PO ; Start 05/04/17 at 09:00 Prednisone (Prednisone) 5 mg DAILY PO ; Start 05/04/17 at 09:00 Tacrolimus (Prograf) 3 mg BID PO ; Start 05/03/17 at 21:00 Acetaminophen (Tylenol Tab) 650 mg Q6 PRN PO FEVER GREATER THAN 100.6; Start at 20:00 Pantoprazole (Protonix Iv) 40 mg DAILY@06 IV ; Start 05/04/17 at 06:00 LIZ TEJEDA MD May 03, 2017 20:17
[2017-05-03] MEDS ORDERED: TACROLIMUS 1 MG CAP PO SCH (21:00)
--- NOTE | 2017-05-03 21:15 | ERA ---
ER Documentation Chief Complaint Date/Time DATE: 05/03/17 TIME: 21:13 Chief Complaint mid ap since last night. vomiting today. hx kidney transplant 2009 HPI Patient is a 56-year-old male with hypertension and diabetes who presents with abdominal pain and vomiting. He had a kidney transplant done in 2009. He said that his last creatinine was 1.9 and his usual creatinine is 1.5. He saw his primary doctor last week. He is trying to take all of his antirejection medicines but said that he is vomiting the medications that he is taking. He said that his primary doctor is Dr. Lange. ROS All systems reviewed and are negative except as per history of present illness. Medications Home Meds Active Scripts Hydrocodone/Acetaminophen (Justin 5-325 Tablet) 1 Each Tablet, 1 TAB PO Q6H Y for PAIN, #10 TAB Prov:JEAN-PIERRE CAMPBELL PA-C 04/11/17 Sulfamethoxazole/Trimethoprim* (Bactrim Ds* Tablet) 1 Each Tablet, 1 TAB PO BID , #14 TAB Prov:JEAN-PIERRE CAMPBELL PA-C 04/11/17 Cephalexin* (Keflex*) 500 Mg Capsule, 500 MG PO QID for 7 Days, CAP Prov:JEAN-PIERRE CAMPBELL PA-C 04/11/17 Cephalexin* (Keflex*) 500 Mg Capsule, 500 MG PO QID for 7 Days, CAP Prov:KAYLIN SAUL MD 02/03/17 Sulfamethoxazole-Trimethoprim* (Bactrim* DS) 800-160 Mg Tab, 1 TAB PO BID for 7 Days, TAB Prov:KAYLIN SAUL MD 02/03/17 Neomycin Sutton/Bacitrac Zn/Poly (Triple Antibiotic Ointment) 28 Gm Oint...g., 28 GM TP TID for 7 Days Prov:KAYLIN SAUL MD 02/03/17 Doxycycline Hyclate* (Doxycycline Hyclate*) 100 Mg Tablet.dr, 100 MG PO BID for 10 Days, #20 TAB Prov:KAYLIN SAUL MD 11/14/16 Neomycin Sutton/Bacitrac Zn/Poly (Triple Antibiotic Ointment) 28 Gm Oint...g., 28 GM TP BID for 10 Days Prov:KAYLIN SAUL MD 11/14/16 Cephalexin* (Keflex*) 500 Mg Capsule, 500 MG PO QID for 5 Days, CAP Prov:DILLAN FLORES DO 11/06/16 Hydrocodone Bit-Acetaminophen* (Justin*) 5-325 Mg Tab, 1 TAB PO Q4H, #10 TAB Prov:RAYO KRAFT DO 04/28/16 Promethazine Hcl* (Phenergan*) 25 Mg Tablet, 25 MG PO Q6H Y for NAUSEA, #14 TAB Prov:RAYO KRAFT DO 04/28/16 Nifedipine* (Procardia XL*) 30 Mg/Bottle Tab.osm.24, 30 MG PO DAILY, #30 TAB.SA FOR BP >140 Prov:GONZALO CR TERRAZZO GRINDER 04/14/15 Metoprolol Tartrate* (Lopressor*) 50 Mg Tab, 50 MG PO BID, #60 TAB Prov:GONZALO CR TERRAZZO GRINDER 04/14/15 Reported Medications Insulin Glargine* (Lantus*) 100 Unit/Ml Soln, 10 UNIT SC QAM, #1 VIAL 04/28/16 Mycophenolate Sodium* (Myfortic*) 180 Mg Tab, 540 MG PO BID, TAB 06/03/14 Clonidine Hcl* (Clonidine Hcl*) 0.1 Mg Tab, 0.1 MG PO Q4H Y for ELEVATED BLOOD PRESSURE, TAB PRN FOR SBP>160 06/03/14 Prednisone (Prednisone) 5 Mg Tablet, 5 MG PO DAILY, 0 Refills 11/26/10 Tacrolimus* (Prograf*) 1 Mg Capsule, 3 MG PO BID, 0 Refills 11/26/10 Allergies Allergies: Coded Allergies: magnesium (Verified Allergy, Intermediate, 05/03/17) NUMBNESS AND HOT FUSHES PMhx/Soc History of Surgery: Yes (RENAL TRANSPLANT) Anesthesia Reaction: No Hx 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 Disorder: No Hx Respiratory Disorders: No Hx Cardiac Disorders: Yes (HTN) Hx Psychiatric Problems: No Hx Miscellaneous Medical Probl: Yes (prior polysubstance abuse, DMII) Hx Alcohol Use: Yes (occasionally) Hx Substance Use: Yes (marijuana prescription last used 22 days ago) Hx Tobacco Use: No Smoking Status: Never smoker FmHx Family History: diabetes Physical Exam Vitals Vital Signs Date Time Temp Pulse Resp B/P Pulse Ox O2 Delivery O2 Flow Rate FiO2 05/03/17 19:01 73 16 167/99 98 Room Air 05/03/17 18:32 98.8 77 16 181/100 100 Physical Exam Const: Moderate distress Head: Atraumatic Eyes: Normal Conjunctiva ENT: Normal External Ears, Nose and Mouth. Neck: Full range of motion..~ No meningismus. Resp: Clear to auscultation bilaterally Cardio: Regular rate and rhythm, no murmurs Abd: Soft, diffuse tenderness to palpation without rebound or guarding Skin: No petechiae or rashes Back: No midline or flank tenderness Ext: No cyanosis, or edema Neur: Awake and alert Psych: Normal Mood and Affect Result Diagram: 05/03/17190905/03/171909 Results 24 hrs Laboratory Tests Test 05/03/17 19:00 05/03/17 19:10 Urine Color YELLOW Urine Clarity CLEAR Urine pH 5.0 Urine Specific [place] 1.013 Urine Ketones NEGATIVEmg/dL Urine Nitrite NEGATIVEmg/dL Urine Bilirubin NEGATIVEmg/dL Urine Urobilinogen NEGATIVEmg/dL Urine Leukocyte Esterase NEGATIVELeu/ul Urine Microscopic RBC 2/HPF Urine Microscopic WBC 0/HPF Urine Hemoglobin NEGATIVEmg/dL Urine Glucose NEGATIVEmg/dL Urine Total Protein 1+mg/dl White Blood Count 3.710^3/ul Red Blood Count 4.3710^6/ul Hemoglobin 15.1g/dl Hematocrit 45.8% Mean Corpuscular Volume 104.8fl Mean Corpuscular Hemoglobin 34.6pg Mean Corpuscular Hemoglobin Concent 33.0g/dl Red Cell Distribution Width 13.2% Platelet Count 18918^3/UL Mean Platelet Volume 10.7fl Neutrophils % 70.1% Lymphocytes % 13.6% Monocytes % 13.6% Eosinophils % 1.9% Basophils % 0.5% Nucleated Red Blood Cells % 0.0/100WBC Neutrophils # 2.610^3/ul Lymphocytes # 0.510^3/ul Monocytes # 0.510^3/ul Eosinophils # 0.110^3/ul Basophils # 0.010^3/ul Nucleated Red Blood Cells # 0.010^3/ul Sodium Level 140mmol/L Potassium Level 4.3mmol/L Chloride Level 105mmol/L Carbon Dioxide Level 24mmol/L Anion Gap 15 Blood Urea Nitrogen 17mg/dl Creatinine 1.46mg/dl Glucose Level 131mg/dl Calcium Level 10.6mg/dl Total Bilirubin 0.4mg/dl Direct Bilirubin 0.00mg/dl Indirect Bilirubin 0.4mg/dl Aspartate Amino Transf (AST/SGOT) 97IU/L Alanine Aminotransferase (ALT/SGPT) 107IU/L Alkaline Phosphatase 93IU/L Troponin I 0.032ng/ml Total Protein 7.7g/dl Albumin 4.7g/dl Globulin 3.00g/dl Albumin/Globulin Ratio 1.56 Lipase 317U/L Current Medications Medications (Trade) Dose Ordered Sig/Kathryn Route PRN Reason Start Time Stop Time Status Last Admin Dose Admin Sodium Chloride (NS) 1,000 ml @ 1,000 mls/hr Q1H STAT IV 05/03/17 18:50 05/03/17 19:49 DC 05/03/17 19:19 Morphine Sulfate (morphine) 4 mg ONCE STAT IV 05/03/17 18:50 05/03/17 18:52 DC 05/03/17 19:19 Ondansetron HCl (Zofran Inj) 4 mg ONCE STAT IV 05/03/17 18:50 05/03/17 18:52 DC 05/03/17 19:19 Ondansetron HCl (Zofran Inj) 4 mg BRIDGE ORDER PRN IV NAUSEA AND/OR VOMITING 05/03/17 19:00 05/03/17 19:50 DC Acetaminophen (Tylenol Tab) 650 mg ER BRIDGE PRN PO MILD PAIN/FEVER 05/03/17 19:00 05/03/17 19:50 DC Clonidine (Catapres) 0.1 mg Q4H PRN PO ELEVATED BLOOD PRESSURE>150 05/03/17 20:00 05/03/17 20:56 Acetaminophen/ Hydrocodone Bitart ([place]in (5/325)) 1 tab Q4H PO 05/03/17 20:00 Acetaminophen/ Hydrocodone Bitart ([place] (5/325)) 1 tab Q6H PRN PO PAIN 05/03/17 20:00 Insulin Glargine (Lantus) 10 unit QAM SC 05/04/17 09:00 Metoprolol Tartrate (Lopressor) 50 mg BID PO 05/03/17 21:00 Mycophenolate Sodium (Myfortic) 540 mg BID PO 05/03/17 21:00 Nifedipine (Procardia Xl) 30 mg DAILY PO 05/04/17 09:00 Prednisone (Prednisone) 5 mg DAILY PO 05/04/17 09:00 Tacrolimus (Prograf) 3 mg BID PO 05/03/17 21:00 Furosemide (Lasix) 40 mg ONCE ONCE IV 05/03/17 20:00 05/03/17 20:00 DC Furosemide (Lasix) 40 mg DAILY IV 05/04/17 09:00 05/04/17 09:00 DC Acetaminophen (Tylenol Tab) 650 mg Q6 PRN PO FEVER GREATER THAN 100.6 05/03/17 20:00 Pantoprazole (Protonix Iv) 40 mg ONCE ONCE IV 05/03/17 20:00 05/03/17 20:01 DC 05/03/17 20:08 Pantoprazole (Protonix Iv) 40 mg DAILY@06 IV 05/04/17 06:00 05/04/17 06:00 DC Insulin Aspart (Novolog Insulin Pen) NOVOLOG *MILD* ALGORITHM WITH MEALS BEDTIME SC 05/03/17 21:00 UNV Miscellaneous Information (* Miscellaneous Pharmacy Order) HYPOGLYCEMIA PROTOCOL w... ONCE ONCE XX 05/03/17 20:30 05/03/17 20:31 UNV Miscellaneous Information (* Miscellaneous Pharmacy Order) Discontinue Glyburide, Glipizide,... ONCE ONCE XX 05/03/17 20:30 05/03/17 20:31 UNV Miscellaneous Information Discontinue all previ... ONCE ONCE XX 05/03/17 20:30 05/03/17 20:31 UNV Lactated Ringer's (Lr) 1,000 ml @ 120 mls/hr Q8H20M IV 05/03/17 21:00 UNV Procedures/MDM EKG read by me: Rate/Rhythm: Regular rate and rhythm at a normal rate Intervals: Normal Impression: No evidence of ischemia or arrhythmia Patient is a 56-year-old male with kidney transplant, dialysis, and hypertension who presents with intractable abdominal pain and vomiting. I am concerned about his vomiting because he is unable to keep his antirejection medications down. Therefore I do think that he requires morphine, Zofran, and IV fluids. I believe he requires admission to the hospital. I spoke with Dr. Maier who was admitted him in the past and Dr. Maier agrees to admit him to the hospital again to a medical surgical bed. At this point I doubt kidney rejection, appendicitis, cholecystitis, or bowel obstruction. He does have a mild elevation of his lipase but at this point I doubt pancreatitis. Departure Diagnosis: Primary Impression: Intractable vomiting Qualified Code: R11.2 - Intractable vomiting with nausea, unspecified vomiting type Additional Impression: Abdominal pain Qualified Code: R10.84 - Generalized abdominal pain Condition: BENJAMIN Mccann MD May 03, 2017 21:15
[2017-05-03] MEDS: INSULIN ASPART [NOVOLOG] 3 ML PEN SC SCH (21:30)
[2017-05-03] MEDS: LACTATED RINGER'S 1,000 ML IV SCH (21:58)
[2017-05-03] MEDS ORDERED: DEXTROSE 50% 50 ML SYRINGE IV PRN ×2 (22:00)
[2017-05-03] MEDS ORDERED: GLUCOSE GEL 15 GRAM TUBE BUCCAL PRN (22:00)
[2017-05-03] MEDS ORDERED: GLUCAGON 1 MG INJ IM PRN (22:00)
[2017-05-03] MEDS ORDERED: GLUCOSE GEL 15 GRAM TUBE PO PRN ×2 (22:00)
[2017-05-03] MEDS: MYCOPHENOLATE (SR) 180 MG TAB PO SCH (22:21)
[2017-05-03] MEDS: TACROLIMUS 0.5 MG CAP PO SCH ×2 (22:21→22:42)
[2017-05-03 22:50] VITALS: Ht 172.7 cm; Wt 52.0 kg
[2017-05-03 23:09] VITALS: PULSE 63
[2017-05-03] MEDS: HYDROCODONE/APAP (5/325) TAB PO SCH ×2 (23:11→23:48)
[2017-05-03] MEDS: METOPROLOL 50 MG TAB PO SCH (23:18)
[2017-05-04] VITALS (11 sets, daily range): BP systolic 103–179; BP diastolic 64–100; PULSE 50–69; RESP 18–20
[2017-05-04] MEDS: ACCUCHECK AT 2AM (Patients on SS coverage) XX SCH (02:00)
[2017-05-04] MEDS: HYDROCODONE/APAP (5/325) TAB PO SCH ×4 (04:08→16:11)
[2017-05-04] MEDS: LACTATED RINGER'S 1,000 ML IV SCH ×2 (05:19→13:08)
[2017-05-04] MEDS ORDERED: PANTOPRAZOLE 40 MG INJ IV SCH (06:00)
--- NOTE | 2017-05-04 07:42 | CONS ---
Date/Time of Note Date/Time of Note DATE: 05/04/17 TIME: 07:40 Assessment/Plan Assessment/Plan Chief Complaint/Hosp Course Impression: 1. pancreatitis with elevated lipase: symptomatically improved 2. elevated transaminases 3. macrocytic anemia Recommendations: 1. trial of clear liquids 2. IVF 3. check folic acid and B12 for macrocytic anemia 4. protonix 40 mg po bid 5. stool for occult blood 6. f/u acute hepatitis panel 7. trend amylase and lipase Problems: Consultation Date/Type/Reason Admit Date/Time May 03, 2017 at 20:05 Initial Consult Date Type of Consultation: GI 24 HR Interval Summary Free Text/Dictation abdominal pain, n/v improved Exam/Review of Systems Vital Signs Vitals Vital Signs Date Time Temp Pulse Resp B/P Pulse Ox O2 Delivery O2 Flow Rate FiO2 05/04/17 05:51 50 05/04/17 04:00 98.8 20 179/100 98 05/03/17 22:43 Room Air Intake and Output 05/03/17 05/03/17 05/04/17 15:00 23:00 07:00 Intake Total 1240 ml Output Total 400 ml Balance 840 ml Exam Constitutional: alert, oriented, well developed Psych: nl mood/affect, no complaints Head: atraumatic, normocephalic Eyes: EOMI, nl conjunctiva, nl lids, nl sclera ENMT: mucosa pink and moist, nl external ears & nose, nl lips & teeth, nl nasal mucosa & septum Neck: non-tender, supple Respiratory: clear to auscultation, normal air movement Cardiovascular: nl pulses, regular rate and rhythm Gastrointestinal: bowel sounds, non-tender, soft Results Result Diagram: 05/03/17190905/03/171909 Results 24 hrs Laboratory Tests Test 05/03/17 19:00 05/03/17 19:10 05/03/17 22:00 Urine Color YELLOW Urine Clarity CLEAR Urine pH 5.0 Urine Specific [place] 1.013 Urine Ketones NEGATIVE Urine Nitrite NEGATIVE Urine Bilirubin NEGATIVE Urine Urobilinogen NEGATIVE Urine Leukocyte Esterase NEGATIVE Urine Microscopic RBC 2 Urine Microscopic WBC 0 Urine Hemoglobin NEGATIVE Urine Glucose NEGATIVE Urine Total Protein 1+ H White Blood Count 3.7 L Red Blood Count 4.37 L Hemoglobin 15.1 Hematocrit 45.8 Mean Corpuscular Volume 104.8 H Mean Corpuscular Hemoglobin 34.6 H Mean Corpuscular Hemoglobin Concent 33.0 Red Cell Distribution Width 13.2 Platelet Count 148 # Mean Platelet Volume 10.7 H Neutrophils % 70.1 Lymphocytes % 13.6 L Monocytes % 13.6 H Eosinophils % 1.9 Basophils % 0.5 Nucleated Red Blood Cells % 0.0 Neutrophils # 2.6 Lymphocytes # 0.5 L Monocytes # 0.5 Eosinophils # 0.1 Basophils # 0.0 Nucleated Red Blood Cells # 0.0 Sodium Level 140 Potassium Level 4.3 Chloride Level 105 Carbon Dioxide Level 24 Anion Gap 15 Blood Urea Nitrogen 17 Creatinine 1.46 H Glucose Level 131 Calcium Level 10.6 H Total Bilirubin 0.4 Direct Bilirubin 0.00 Indirect Bilirubin 0.4 Aspartate Amino Transf (AST/SGOT) 97 H Alanine Aminotransferase (ALT/SGPT) 107 H Alkaline Phosphatase 93 Troponin I 0.032 Total Protein 7.7 Albumin 4.7 Globulin 3.00 Albumin/Globulin Ratio 1.56 Lipase 317 H Bedside Glucose 102 Medications Medications Current Medications Clonidine (Catapres) 0.1 mg Q4H PRN PO ELEVATED BLOOD PRESSURE>150 Last administered on 05/04/17 04:09; Admin Dose 0.1 MG; Start 05/03/17 at 20:00 Acetaminophen/ Hydrocodone Bitart ([place] (5/325)) 1 tab Q4H PO Last administered on 05/04/17 04:08; Admin Dose 1 TAB; Start 05/03/17 at 20:00 Acetaminophen/ Hydrocodone Bitart ([place] (5/325)) 1 tab Q6H PRN PO PAIN; Start 05/03/17 at 20:00 Insulin Glargine (Lantus) 10 unit QAM SC ; Start 05/04/17 at 09:00 Metoprolol Tartrate (Lopressor) 50 mg BID PO Last administered on 05/03/17 23: 18; Admin Dose 50 MG; Start 05/03/17 at 21:00 Mycophenolate Sodium (Myfortic) 540 mg BID PO Last administered on 05/03/17 22: 21; Admin Dose 540 MG; Start 05/03/17 at 21:00 Nifedipine (Procardia Xl) 30 mg DAILY PO ; Start 05/04/17 at 09:00 Prednisone (Prednisone) 5 mg DAILY PO ; Start 05/04/17 at 09:00 Acetaminophen 650 mg 650 mg Q6 PRN PO FEVER GREATER THAN 100.6; Start 05/03/17 at 20:00 Lactated Ringer's (Lr) 1,000 ml @ 120 mls/hr Q8H20M IV Last administered on 05:19; Admin Dose 120 MLS/HR; Start 05/03/17 at 21:00 Diagnostic Test (Pha) (Accu-Chek) 1 ea 02 XX Last administered on 05/04/17 02: 00; Admin Dose 1 EA; Start 05/04/17 at 02:00 Miscellaneous Information 1 ea NOTE XX ; Start 05/03/17 at 22:00 Glucose (Glutose) 15 gm Q15M PRN PO DECREASED GLUCOSE; Start 05/03/17 at 22:00 Glucose (Glutose) 22.5 gm Q15M PRN PO DECREASED GLUCOSE; Start 05/03/17 at 22:00 Dextrose (D50w Syringe) 25 ml Q15M PRN IV DECREASED GLUCOSE; Start 05/03/17 at 22:00 Dextrose (D50w Syringe) 50 ml Q15M PRN IV DECREASED GLUCOSE; Start 05/03/17 at 22:00 Glucagon (Glucagen) 1 mg Q15M PRN IM DECREASED GLUCOSE; Start 05/03/17 at 22:00 Glucose (Glutose) 15 gm Q15M PRN BUCCAL DECREASED GLUCOSE; Start 05/03/17 at 22: 00 Tacrolimus (Prograf) 3 mg BID PO Last administered on 05/03/17 22:42; Admin Dose 3 MG; Start 05/03/17 at 22:30 LIZ TEJEDA MD May 04, 2017 07:42
[2017-05-04] MEDS: INSULIN ASPART [NOVOLOG] 3 ML PEN SC SCH ×4 (08:00→21:00)
[2017-05-04] MEDS: METOPROLOL 50 MG TAB PO SCH (08:34)
[2017-05-04] MEDS: NIFEdipine (XL) 30 MG TAB PO SCH (08:36)
[2017-05-04] MEDS: MYCOPHENOLATE (SR) 180 MG TAB PO SCH ×2 (08:36→21:05)
[2017-05-04] MEDS: TACROLIMUS 0.5 MG CAP PO SCH ×2 (08:37→21:05)
[2017-05-04] MEDS: predniSONE 5 MG TAB PO SCH (08:37)
[2017-05-04] MEDS ORDERED: FUROSEMIDE 40 MG INJ IV SCH (09:00)
[2017-05-04] MEDS ORDERED: INSULIN GLARGINE [LANtus] 3 ML PEN SC SCH (09:00)
[2017-05-04 09:39] LABS: HAAIG REFLEX REFLEX FILED
[2017-05-04 10:03] LABS: AMYLASE 118 U/L (11-123)
[2017-05-04 11:04] LABS: HEPATITIS B CORE ANTIBODY NEGATIVE (NEGATIVE)
[2017-05-04 11:21] LABS: FOLATE 13.2 ng/ml (2.8-20.0)
[2017-05-04] MEDS ORDERED: TACR0.5C PO (11:40)
--- NOTE | 2017-05-04 12:32 | HP ---
Date/Time of Note Date/Time of Note DATE: 05/04/17 TIME: 11:51 Assessment/Plan VTE Prophylaxis VTE Prophylaxis Intervention: other Lines/Catheters IV Catheter Type (from Nrsg): Peripheral IV Urinary Cath still in place: No Assessment/Plan Assessment/Plan - Abdominal pain - Admit to hospital- Tele - Gi CONSULT- Dr Preston notified - covering for Dr Hartley - clear liquid diet - IVF - Zofran, Tylenol. Protonix - Renal disease-SP RENAL TRANSPLANT- 2009 - nephrology consult- Dr Silas Chand is notified -Intractable vomiting- none at present - Former smoker - reinforce smoking cessation - GERD - Protonix - Diabetes - Glycemic control - Hypertension - RESUME HOME MEDS -prior polysubstance abuse-marijuana prescription last used 22 days ago -SCD for DVT prophylaxis Dw Dr Maier/staff/patient HPI/ROS Admit Date/Time Admit Date/Time May 03, 2017 at 20:05 Hx of Present Illness Late Entry for 05/03/2017 at 2035 Chief Complaint mid ap since last night. vomiting today. hx kidney transplant 2009 HPI Patient is a 56-year-old male with past history of hypertension, diabetes, kidney transplant in 2009 is admitted for abdominal pain and vomiting x 1 day Per patient his creatinine was 1.9 and his baseline creatinine is 1.5. He saw his primary doctor last week. Patient stated his antirejection medicines is causing vomiting every time he takes it. He said that his primary doctor is Dr. Lange.Patient is admitted under Dr Maier for further evaluation and treatment. ROS All systems reviewed and are negative except as per history of present illness. Allergies Allergies: Coded Allergies: magnesium (Verified Allergy, Intermediate, 05/03/17) NUMBNESS AND HOT FUSHES ROS ENT: no complaints Respiratory: no complaints Cardiovascular: no complaints Gastrointestinal: nausea, pain Genitourinary: no complaints Musculoskeletal: back pain Psychological: nl mood/affect, no complaints PMH/Family/Social Past Medical History PMhx/Soc History of Surgery: Yes (RENAL TRANSPLANT) Anesthesia Reaction: No Hx 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 Disorder: No Hx Respiratory Disorders: No Hx Cardiac Disorders: Yes (HTN) Hx Psychiatric Problems: No Hx Miscellaneous Medical Probl: Yes (prior polysubstance abuse, DMII) Hx Alcohol Use: Yes (occasionally) Hx Substance Use: Yes (marijuana prescription last used 22 days ago) Hx Tobacco Use: No Smoking Status: Never smoker FmHx Family History: diabetes Medical History: diabetes, GERD, hypertension, renal disease Social History Alcohol Use: none Smoking Status: Former smoker Drug Use: marijuana Exam/Review of Systems Vital Signs Vitals Vital Signs Date Time Temp Pulse Resp B/P Pulse Ox O2 Delivery O2 Flow Rate FiO2 05/04/17 08:00 98.3 52 18 169/90 96 Room Air Intake and Output 05/03/17 05/03/17 05/04/17 15:00 23:00 07:00 Intake Total 1240 ml Output Total 400 ml Balance 840 ml Exam Constitutional: alert, oriented Psych: nl mood/affect Respiratory: clear to auscultation, normal air movement Cardiovascular: nl pulses, regular rate and rhythm Gastrointestinal: soft, tender (Soft, diffuse tenderness to palpation without rebound or guarding) Musculoskeletal: nl extremities to inspection Extremities: normal pulses 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: nl mental status, nl speech Labs Result Diagram: 05/03/17190905/03/171909 Medications Medications Current Medications Clonidine (Catapres) 0.1 mg Q4H PRN PO ELEVATED BLOOD PRESSURE>150 Last administered on 05/04/17 04:09; Admin Dose 0.1 MG; Start 05/03/17 at 20:00 Acetaminophen/ Hydrocodone Bitart ([place] (5/325)) 1 tab Q4H PO Last administered on 05/04/17 08:36; Admin Dose 1 TAB; Start 05/03/17 at 20:00 Acetaminophen/ Hydrocodone Bitart ([place] (5/325)) 1 tab Q6H PRN PO PAIN; Start 05/03/17 at 20:00 Insulin Glargine (Lantus) 10 unit QAM SC Last administered on 05/04/17 08:38; Admin Dose 10 UNIT; Start 05/04/17 at 09:00 Metoprolol Tartrate (Lopressor) 50 mg BID PO Last administered on 05/03/17 23: 18; Admin Dose 50 MG; Start 05/03/17 at 21:00 Mycophenolate Sodium (Myfortic) 540 mg BID PO Last administered on 05/04/17 08: 36; Admin Dose 540 MG; Start 05/03/17 at 21:00 Nifedipine (Procardia Xl) 30 mg DAILY PO Last administered on 05/04/17 08:36; Admin Dose 30 MG; Start 05/04/17 at 09:00 Prednisone (Prednisone) 5 mg DAILY PO Last administered on 05/04/17 08:37; Admin Dose 5 MG; Start 05/04/17 at 09:00 Acetaminophen 650 mg 650 mg Q6 PRN PO FEVER GREATER THAN 100.6; Start 05/03/17 at 20:00 Lactated Ringer's (Lr) 1,000 ml @ 120 mls/hr Q8H20M IV Last administered on 05:19; Admin Dose 120 MLS/HR; Start 05/03/17 at 21:00 Diagnostic Test (Pha) (Accu-Chek) 1 ea 02 XX Last administered on 05/04/17 02: 00; Admin Dose 1 EA; Start 05/04/17 at 02:00 Miscellaneous Information 1 ea NOTE XX ; Start 05/03/17 at 22:00 Glucose (Glutose) 15 gm Q15M PRN PO DECREASED GLUCOSE; Start 05/03/17 at 22:00 Glucose (Glutose) 22.5 gm Q15M PRN PO DECREASED GLUCOSE; Start 05/03/17 at 22:00 Dextrose (D50w Syringe) 25 ml Q15M PRN IV DECREASED GLUCOSE; Start 05/03/17 at 22:00 Dextrose (D50w Syringe) 50 ml Q15M PRN IV DECREASED GLUCOSE; Start 05/03/17 at 22:00 Glucagon (Glucagen) 1 mg Q15M PRN IM DECREASED GLUCOSE; Start 05/03/17 at 22:00 Glucose (Glutose) 15 gm Q15M PRN BUCCAL DECREASED GLUCOSE; Start 05/03/17 at 22: 00 Tacrolimus (Prograf) 3 mg BID PO Last administered on 05/04/17 08:37; Admin Dose 3 MG; Start 05/03/17 at 22:30 Procedures Procedures EKG Rate/Rhythm: Regular rate and rhythm at a normal rate Intervals: Normal Impression: No evidence of ischemia or arrhythmia tion. He does have a mild elevation of his lipase but at this point I doubt pancreatitis. EILEEN COBURN May 04, 2017 12:05
--- NOTE | 2017-05-04 15:01 | CONS ---
Date/Time of Note Date/Time of Note DATE: 05/04/17 TIME: 14:51 Assessment/Plan Assessment/Plan Additional Assessment/Plan 1. Acute Kidney injury due to prerenal azotemia 2. 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 H/o Kidney transplant in 2009 - now on Prograf, myfortic and prednisone 4. abdominal pain Plan: Continue prograf 3 mg BID, prednisone 5 mg daily and myfortic 540mg BID change IVF from LR to NS at 100 cc /hr, will reassess kidney function in AM Expecting Creatinine to improve with IVF will follow up Thank you for this consultation,we will continue to follow up on patient Total time spent is more than 90 minutes, communicated with patient and also communicated with Nursing staff Consultation Date/Type/Reason Admit Date/Time May 03, 2017 at 20:05 Date of Consultation: May 04, 2017 Type of Consultation: NEPHROLOGY Reason for Consultation acute kidney injury Referring Provider: LUPE KAPLAN MD Hx of Present Illness 56-year-old male with past history of hypertension, diabetes, kidney transplant in 2009 is admitted for abdominal pain and vomiting x 1 day Per patient his creatinine was 1.9 and his baseline creatinine is 1.5. He saw his primary doctor last week. Patient stated his antirejection medicines is causing vomiting every time he takes it. pt has been on prograf, prednisone and myfortic pt is not sure about which medication is causing vomiting c/o vomiting, abdominal pain, other ROS negative ENT: no complaints Respiratory: no complaints Cardiovascular: no complaints Gastrointestinal: nausea, pain Genitourinary: no complaints Musculoskeletal: back pain Psychological: nl mood/affect Past Medical History Medical History: diabetes, GERD, hypertension, renal disease (h/o kideny transplant, post transplant CKD ) Past Surgical History Past Surgical Hx: other (h/o Kidney transplant) Social History Alcohol Use: none Smoking Status: Former smoker Drug Use: marijuana Exam/Review of Systems Vital Signs Vitals Vital Signs Date Time Temp Pulse Resp B/P Pulse Ox O2 Delivery O2 Flow Rate FiO2 05/04/17 14:40 52 18 103/64 05/04/17 12:00 98.8 100 Room Air Intake and Output 05/03/17 05/03/17 05/04/17 15:00 23:00 07:00 Intake Total 1240 ml Output Total 400 ml Balance 840 ml Exam Constitutional: alert, oriented, well developed Psych: nl mood/affect, no complaints Head: atraumatic, normocephalic Eyes: EOMI, nl conjunctiva, nl lids, nl sclera ENMT: mucosa pink and moist, nl external ears & nose, nl lips & teeth, nl nasal mucosa & septum Neck: non-tender, supple Respiratory: clear to auscultation, normal air movement Cardiovascular: nl pulses, regular rate and rhythm Gastrointestinal: bowel sounds, non-tender, soft Results Result Diagram: 05/03/17190905/03/171909 Results 24 hrs Laboratory Tests Test 05/03/17 19:00 05/03/17 19:10 05/03/17 22:00 05/04/17 08:14 Urine Color YELLOW Urine Clarity CLEAR Urine pH 5.0 Urine Specific [place] 1.013 Urine Ketones NEGATIVE Urine Nitrite NEGATIVE Urine Bilirubin NEGATIVE Urine Urobilinogen NEGATIVE Urine Leukocyte Esterase NEGATIVE Urine Microscopic RBC 2 Urine Microscopic WBC 0 Urine Hemoglobin NEGATIVE Urine Glucose NEGATIVE Urine Total Protein 1+ H White Blood Count 3.7 L Red Blood Count 4.37 L Hemoglobin 15.1 Hematocrit 45.8 Mean Corpuscular Volume 104.8 H Mean Corpuscular Hemoglobin 34.6 H Mean Corpuscular Hemoglobin Concent 33.0 Red Cell Distribution Width 13.2 Platelet Count 148 # Mean Platelet Volume 10.7 H Neutrophils % 70.1 Lymphocytes % 13.6 L Monocytes % 13.6 H Eosinophils % 1.9 Basophils % 0.5 Nucleated Red Blood Cells % 0.0 Neutrophils # 2.6 Lymphocytes # 0.5 L Monocytes # 0.5 Eosinophils # 0.1 Basophils # 0.0 Nucleated Red Blood Cells # 0.0 Sodium Level 140 Potassium Level 4.3 Chloride Level 105 Carbon Dioxide Level 24 Anion Gap 15 Blood Urea Nitrogen 17 Creatinine 1.46 H Glucose Level 131 Calcium Level 10.6 H Total Bilirubin 0.4 Direct Bilirubin 0.00 Indirect Bilirubin 0.4 Aspartate Amino Transf (AST/SGOT) 97 H Alanine Aminotransferase (ALT/SGPT) 107 H Alkaline Phosphatase 93 Troponin I 0.032 Total Protein 7.7 Albumin 4.7 Globulin 3.00 Albumin/Globulin Ratio 1.56 Lipase 317 H Bedside Glucose 102 118 Test 05/04/17 09:35 05/04/17 12:03 Hemoglobin A1c 6.8 H Amylase Level 118 Lipase 180 Vitamin B12 Level 278 Folate 13.2 Hepatitis B Surface Antigen NEGATIVE Hepatitis B Core Total Antibody NEGATIVE Hepatitis C Antibody REACTIVE H Bedside Glucose 88 Medications Medications Current Medications Clonidine (Catapres) 0.1 mg Q4H PRN PO ELEVATED BLOOD PRESSURE>150 Last administered on 05/04/17 12:11; Admin Dose 0.1 MG; Start 05/03/17 at 20:00 Acetaminophen/ Hydrocodone Bitart ([place] (5/325)) 1 tab Q4H PO Last administered on 05/04/17 12:11; Admin Dose 1 TAB; Start 05/03/17 at 20:00 Acetaminophen/ Hydrocodone Bitart ([place] (5/325)) 1 tab Q6H PRN PO PAIN; Start 05/03/17 at 20:00 Insulin Glargine (Lantus) 10 unit QAM SC Last administered on 05/04/17 08:38; Admin Dose 10 UNIT; Start 05/04/17 at 09:00 Metoprolol Tartrate (Lopressor) 50 mg BID PO Last administered on 05/03/17 23: 18; Admin Dose 50 MG; Start 05/03/17 at 21:00 Mycophenolate Sodium (Myfortic) 540 mg BID PO Last administered on 05/04/17 08: 36; Admin Dose 540 MG; Start 05/03/17 at 21:00 Nifedipine (Procardia Xl) 30 mg DAILY PO Last administered on 05/04/17 08:36; Admin Dose 30 MG; Start 05/04/17 at 09:00 Prednisone (Prednisone) 5 mg DAILY PO Last administered on 05/04/17 08:37; Admin Dose 5 MG; Start 05/04/17 at 09:00 Acetaminophen 650 mg 650 mg Q6 PRN PO FEVER GREATER THAN 100.6; Start 05/03/17 at 20:00 Lactated Ringer's (Lr) 1,000 ml @ 120 mls/hr Q8H20M IV Last administered on 13:08; Admin Dose 120 MLS/HR; Start 05/03/17 at 21:00 Diagnostic Test (Pha) (Accu-Chek) 1 ea 02 XX Last administered on 05/04/17 02: 00; Admin Dose 1 EA; Start 05/04/17 at 02:00 Miscellaneous Information 1 ea NOTE XX ; Start 05/03/17 at 22:00 Glucose (Glutose) 15 gm Q15M PRN PO DECREASED GLUCOSE; Start 05/03/17 at 22:00 Glucose (Glutose) 22.5 gm Q15M PRN PO DECREASED GLUCOSE; Start 05/03/17 at 22:00 Dextrose (D50w Syringe) 25 ml Q15M PRN IV DECREASED GLUCOSE; Start 05/03/17 at 22:00 Dextrose (D50w Syringe) 50 ml Q15M PRN IV DECREASED GLUCOSE; Start 05/03/17 at 22:00 Glucagon (Glucagen) 1 mg Q15M PRN IM DECREASED GLUCOSE; Start 05/03/17 at 22:00 Glucose (Glutose) 15 gm Q15M PRN BUCCAL DECREASED GLUCOSE; Start 05/03/17 at 22: 00 Tacrolimus (Prograf) 3 mg BID PO Last administered on 05/04/17 08:37; Admin Dose 3 MG; Start 05/03/17 at 22:30 SHAKA SIMPSON MD May 04, 2017 15:00
[2017-05-04] MEDS: SOD CHLORIDE 0.9% 1,000 ML IV SCH (15:14)
--- NOTE | 2017-05-04 15:51 | CONS ---
Date/Time of Note Date/Time of Note DATE: 05/04/17 TIME: 15:45 Assessment/Plan Assessment/Plan Chief Complaint/Hosp Course Impression: 1. pancreatitis with elevated lipase: symptomatically improved. amylase and lipase normalized. 2. elevated transaminases 3. macrocytic anemia 4. HCV positive Recommendations: 1. advance diet to 2g 1800 ADA diet 2. IVF 3. check CMP tomorrow 4. protonix 40 mg po bid 5. stool for occult blood 6. elevated transaminases likely due to HCV. This can be treated as out-pt with hepatology referral at [facility] or [facility]. Problems: Consultation Date/Type/Reason Admit Date/Time May 03, 2017 at 20:05 Type of Consultation: GI Referring Provider: LUPE KAPLAN MD 24 HR Interval Summary Free Text/Dictation abdominal pain, n/v improved. Constitutional: improved Exam/Review of Systems Vital Signs Vitals Vital Signs Date Time Temp Pulse Resp B/P Pulse Ox O2 Delivery O2 Flow Rate FiO2 05/04/17 14:40 52 18 103/64 05/04/17 12:00 98.8 100 Room Air Intake and Output 05/03/17 05/03/17 05/04/17 15:00 23:00 07:00 Intake Total 1240 ml Output Total 400 ml Balance 840 ml Exam Constitutional: alert, oriented, well developed Psych: nl mood/affect, no complaints Head: atraumatic, normocephalic Eyes: EOMI, nl conjunctiva, nl lids, nl sclera ENMT: mucosa pink and moist, nl external ears & nose, nl lips & teeth, nl nasal mucosa & septum Neck: non-tender, supple Respiratory: clear to auscultation, normal air movement Cardiovascular: nl pulses, regular rate and rhythm Gastrointestinal: bowel sounds, non-tender, soft Results Result Diagram: 05/03/17190905/03/171909 Results 24 hrs Laboratory Tests Test 05/03/17 19:00 05/03/17 19:10 05/03/17 22:00 05/04/17 08:14 Urine Color YELLOW Urine Clarity CLEAR Urine pH 5.0 Urine Specific [place] 1.013 Urine Ketones NEGATIVE Urine Nitrite NEGATIVE Urine Bilirubin NEGATIVE Urine Urobilinogen NEGATIVE Urine Leukocyte Esterase NEGATIVE Urine Microscopic RBC 2 Urine Microscopic WBC 0 Urine Hemoglobin NEGATIVE Urine Glucose NEGATIVE Urine Total Protein 1+ H White Blood Count 3.7 L Red Blood Count 4.37 L Hemoglobin 15.1 Hematocrit 45.8 Mean Corpuscular Volume 104.8 H Mean Corpuscular Hemoglobin 34.6 H Mean Corpuscular Hemoglobin Concent 33.0 Red Cell Distribution Width 13.2 Platelet Count 148 # Mean Platelet Volume 10.7 H Neutrophils % 70.1 Lymphocytes % 13.6 L Monocytes % 13.6 H Eosinophils % 1.9 Basophils % 0.5 Nucleated Red Blood Cells % 0.0 Neutrophils # 2.6 Lymphocytes # 0.5 L Monocytes # 0.5 Eosinophils # 0.1 Basophils # 0.0 Nucleated Red Blood Cells # 0.0 Sodium Level 140 Potassium Level 4.3 Chloride Level 105 Carbon Dioxide Level 24 Anion Gap 15 Blood Urea Nitrogen 17 Creatinine 1.46 H Glucose Level 131 Calcium Level 10.6 H Total Bilirubin 0.4 Direct Bilirubin 0.00 Indirect Bilirubin 0.4 Aspartate Amino Transf (AST/SGOT) 97 H Alanine Aminotransferase (ALT/SGPT) 107 H Alkaline Phosphatase 93 Troponin I 0.032 Total Protein 7.7 Albumin 4.7 Globulin 3.00 Albumin/Globulin Ratio 1.56 Lipase 317 H Bedside Glucose 102 118 Test 05/04/17 09:35 05/04/17 12:03 Hemoglobin A1c 6.8 H Amylase Level 118 Lipase 180 Vitamin B12 Level 278 Folate 13.2 Hepatitis B Surface Antigen NEGATIVE Hepatitis B Core Total Antibody NEGATIVE Hepatitis C Antibody REACTIVE H Bedside Glucose 88 Medications Medications Current Medications Clonidine (Catapres) 0.1 mg Q4H PRN PO ELEVATED BLOOD PRESSURE>150 Last administered on 05/04/17 12:11; Admin Dose 0.1 MG; Start 05/03/17 at 20:00 Acetaminophen/ Hydrocodone Bitart ([place] (5/325)) 1 tab Q4H PO Last administered on 05/04/17 12:11; Admin Dose 1 TAB; Start 05/03/17 at 20:00 Acetaminophen/ Hydrocodone Bitart ([place] (5/325)) 1 tab Q6H PRN PO PAIN; Start 05/03/17 at 20:00 Insulin Glargine (Lantus) 10 unit QAM SC Last administered on 05/04/17 08:38; Admin Dose 10 UNIT; Start 05/04/17 at 09:00 Metoprolol Tartrate (Lopressor) 50 mg BID PO Last administered on 05/03/17 23: 18; Admin Dose 50 MG; Start 05/03/17 at 21:00 Mycophenolate Sodium (Myfortic) 540 mg BID PO Last administered on 05/04/17 08: 36; Admin Dose 540 MG; Start 05/03/17 at 21:00 Nifedipine (Procardia Xl) 30 mg DAILY PO Last administered on 05/04/17 08:36; Admin Dose 30 MG; Start 05/04/17 at 09:00 Prednisone (Prednisone) 5 mg DAILY PO Last administered on 05/04/17 08:37; Admin Dose 5 MG; Start 05/04/17 at 09:00 Acetaminophen (Tylenol Tab) 650 mg Q6 PRN PO FEVER GREATER THAN 100.6; Start at 20:00 Diagnostic Test (Pha) (Accu-Chek) 1 ea 02 XX Last administered on 05/04/17 02: 00; Admin Dose 1 EA; Start 05/04/17 at 02:00 Miscellaneous Information 1 ea NOTE XX ; Start 05/03/17 at 22:00 Glucose (Glutose) 15 gm Q15M PRN PO DECREASED GLUCOSE; Start 05/03/17 at 22:00 Glucose (Glutose) 22.5 gm Q15M PRN PO DECREASED GLUCOSE; Start 05/03/17 at 22:00 Dextrose (D50w Syringe) 25 ml Q15M PRN IV DECREASED GLUCOSE; Start 05/03/17 at 22:00 Dextrose (D50w Syringe) 50 ml Q15M PRN IV DECREASED GLUCOSE; Start 05/03/17 at 22:00 Glucagon (Glucagen) 1 mg Q15M PRN IM DECREASED GLUCOSE; Start 05/03/17 at 22:00 Glucose (Glutose) 15 gm Q15M PRN BUCCAL DECREASED GLUCOSE; Start 05/03/17 at 22: 00 Tacrolimus 3 mg 3 mg BID PO Last administered on 05/04/17 08:37; Admin Dose 3 MG; Start 05/03/17 at 22:30 Sodium Chloride (NS) 1,000 ml @ 100 mls/hr Q10H IV Last administered on 15:14; Admin Dose 100 MLS/HR; Start 05/04/17 at 15:00 LIZ TEJEDA MD May 04, 2017 15:51
--- NOTE | 2017-05-04 17:53 | PN ---
Date/Time of Note Date/Time of Note DATE: 05/04/17 TIME: 17:15 Assessment/Plan VTE Prophylaxis VTE Prophylaxis Intervention: other Lines/Catheters IV Catheter Type (from Nrsg): Peripheral IV Urinary Cath still in place: No Assessment/Plan Assessment/Plan - Bradycardia- change Metoprolol 25 mg po bid. Hol;d if hr < 60. cont to monitor - Abdominal pain - Admit to hospital- Tele - per Gi CONSULT- Dr Preston - covering for Dr Hartley - clear liquid diet - IVF - Zofran, Tylenol. Protonix - Renal disease-SP [employer]NAL TRANSPLANT- 2009 - nephrology consult- Dr Silas Chand is notified -Intractable vomiting- none at present - Former smoker - reinforce smoking cessation - GERD - Protonix - Diabetes - Glycemic control - Hypertension - RESUME HOME MEDS -prior polysubstance abuse-marijuana prescription last used 22 days ago -SCD for DVT prophylaxis Dw Dr Maier/staff/patient Subjective 24 Hr Interval Summary Respiratory: no complaints Cardiovascular: no complaints Gastrointestinal: pain Genitourinary: no complaints Musculoskeletal: no complaints Exam/Review of Systems Vital Signs Vitals Vital Signs Date Time Temp Pulse Resp B/P Pulse Ox O2 Delivery O2 Flow Rate FiO2 05/04/17 16:00 55 05/04/17 14:40 18 103/64 05/04/17 12:00 98.8 100 Room Air Intake and Output 05/03/17 05/03/17 05/04/17 15:00 23:00 07:00 Intake Total 1240 ml Output Total 400 ml Balance 840 ml Exam Respiratory: clear to auscultation, normal air movement Cardiovascular: nl pulses, regular rate and rhythm Gastrointestinal: soft, tender (DIFFUSE TENDERNESS ON MILD PALPATION) Results Result Diagram: 05/03/17190905/03/171909 Results 24 hrs Laboratory Tests Test 05/03/17 19:00 05/03/17 19:10 05/03/17 22:00 05/04/17 08:14 Urine Color YELLOW Urine Clarity CLEAR Urine pH 5.0 Urine Specific [place] 1.013 Urine Ketones NEGATIVE Urine Nitrite NEGATIVE Urine Bilirubin NEGATIVE Urine Urobilinogen NEGATIVE Urine Leukocyte Esterase NEGATIVE Urine Microscopic RBC 2 Urine Microscopic WBC 0 Urine Hemoglobin NEGATIVE Urine Glucose NEGATIVE Urine Total Protein 1+ H White Blood Count 3.7 L Red Blood Count 4.37 L Hemoglobin 15.1 Hematocrit 45.8 Mean Corpuscular Volume 104.8 H Mean Corpuscular Hemoglobin 34.6 H Mean Corpuscular Hemoglobin Concent 33.0 Red Cell Distribution Width 13.2 Platelet Count 148 # Mean Platelet Volume 10.7 H Neutrophils % 70.1 Lymphocytes % 13.6 L Monocytes % 13.6 H Eosinophils % 1.9 Basophils % 0.5 Nucleated Red Blood Cells % 0.0 Neutrophils # 2.6 Lymphocytes # 0.5 L Monocytes # 0.5 Eosinophils # 0.1 Basophils # 0.0 Nucleated Red Blood Cells # 0.0 Sodium Level 140 Potassium Level 4.3 Chloride Level 105 Carbon Dioxide Level 24 Anion Gap 15 Blood Urea Nitrogen 17 Creatinine 1.46 H Glucose Level 131 Calcium Level 10.6 H Total Bilirubin 0.4 Direct Bilirubin 0.00 Indirect Bilirubin 0.4 Aspartate Amino Transf (AST/SGOT) 97 H Alanine Aminotransferase (ALT/SGPT) 107 H Alkaline Phosphatase 93 Troponin I 0.032 Total Protein 7.7 Albumin 4.7 Globulin 3.00 Albumin/Globulin Ratio 1.56 Lipase 317 H Bedside Glucose 102 118 Test 05/04/17 09:35 05/04/17 12:03 Hemoglobin A1c 6.8 H Amylase Level 118 Lipase 180 Vitamin B12 Level 278 Folate 13.2 Hepatitis B Surface Antigen NEGATIVE Hepatitis B Core Total Antibody NEGATIVE Hepatitis C Antibody REACTIVE H Bedside Glucose 88 Medications Medications Current Medications Clonidine (Catapres) 0.1 mg Q4H PRN PO ELEVATED BLOOD PRESSURE>150 Last administered on 05/04/17 12:11; Admin Dose 0.1 MG; Start 05/03/17 at 20:00 Acetaminophen/ Hydrocodone Bitart ([place] (5/325)) 1 tab Q4H PO Last administered on 05/04/17 16:11; Admin Dose 1 TAB; Start 05/03/17 at 20:00 Acetaminophen/ Hydrocodone Bitart ([place] (5/325)) 1 tab Q6H PRN PO PAIN; Start 05/03/17 at 20:00 Insulin Glargine (Lantus) 10 unit QAM SC Last administered on 05/04/17 08:38; Admin Dose 10 UNIT; Start 05/04/17 at 09:00 Metoprolol Tartrate (Lopressor) 50 mg BID PO Last administered on 05/03/17 23: 18; Admin Dose 50 MG; Start 05/03/17 at 21:00 Mycophenolate Sodium (Myfortic) 540 mg BID PO Last administered on 05/04/17 08: 36; Admin Dose 540 MG; Start 05/03/17 at 21:00 Nifedipine (Procardia Xl) 30 mg DAILY PO Last administered on 05/04/17 08:36; Admin Dose 30 MG; Start 05/04/17 at 09:00 Prednisone (Prednisone) 5 mg DAILY PO Last administered on 05/04/17 08:37; Admin Dose 5 MG; Start 05/04/17 at 09:00 Acetaminophen (Tylenol Tab) 650 mg Q6 PRN PO FEVER GREATER THAN 100.6; Start at 20:00 Diagnostic Test (Pha) (Accu-Chek) 1 ea 02 XX Last administered on 05/04/17 02: 00; Admin Dose 1 EA; Start 05/04/17 at 02:00 Miscellaneous Information 1 ea NOTE XX ; Start 05/03/17 at 22:00 Glucose (Glutose) 15 gm Q15M PRN PO DECREASED GLUCOSE; Start 05/03/17 at 22:00 Glucose (Glutose) 22.5 gm Q15M PRN PO DECREASED GLUCOSE; Start 05/03/17 at 22:00 Dextrose (D50w Syringe) 25 ml Q15M PRN IV DECREASED GLUCOSE; Start 05/03/17 at 22:00 Dextrose (D50w Syringe) 50 ml Q15M PRN IV DECREASED GLUCOSE; Start 05/03/17 at 22:00 Glucagon (Glucagen) 1 mg Q15M PRN IM DECREASED GLUCOSE; Start 05/03/17 at 22:00 Glucose (Glutose) 15 gm Q15M PRN BUCCAL DECREASED GLUCOSE; Start 05/03/17 at 22: 00 Tacrolimus 3 mg 3 mg BID PO Last administered on 05/04/17 08:37; Admin Dose 3 MG; Start 05/03/17 at 22:30 Sodium Chloride (NS) 1,000 ml @ 100 mls/hr Q10H IV Last administered on 15:14; Admin Dose 100 MLS/HR; Start 05/04/17 at 15:00 EILEEN COBURN May 04, 2017 17:26
[2017-05-04] MEDS ORDERED: ONDANSETRON 4 MG INJ IV PRN (19:30)
[2017-05-04] MEDS: METOPROLOL 25 MG TAB PO SCH (21:03)
[2017-05-04] MEDS: morphine 2 MG INJ IV PRN (21:09)
[2017-05-05] VITALS (10 sets, daily range): BP systolic 118–149; BP diastolic 65–84; PULSE 53–72; RESP 18–20
[2017-05-05] MEDS: ACCUCHECK AT 2AM (Patients on SS coverage) XX SCH (02:00)
[2017-05-05] MEDS: SOD CHLORIDE 0.9% 1,000 ML IV SCH ×2 (04:42→13:42)
[2017-05-05 06:48] LABS: BASOPHILS % 0.3 % (0.0-2.0); EOSINOPHILS # 0.1 10^3/ul (0.0-0.5); EOSINOPHILS % 2.7 % (0.0-7.0); HEMATOCRIT 46.2 % (42.0-52.0); HEMOGLOBIN 15.2 g/dl (14.0-18.0); LYMPHOCYTES # 0.7 10^3/ul (0.8-2.9); MEAN CORPUSCULAR HEMOGLOBIN 33.7 pg (29.0-33.0); MEAN CORPUSCULAR HGB CONC 32.9 g/dl (32.0-37.0); MEAN CORPUSCULAR VOLUME 102.4 fl (82.0-101.0); MEAN PLATELET VOLUME 10.8 fl (7.4-10.4); MONOCYTE # 0.4 10^3/ul (0.3-0.9); MONOCYTES % 13.1 % (0.0-11.0); NEUTROPHILS % 62.3 % (39.0-77.0); PLATELET COUNT 133 10^3/UL (140-415); RED BLOOD COUNT 4.51 10^6/ul (4.70-6.10); RED CELL DISTRIBUTION WIDTH 12.7 % (11.5-14.5); WHITE BLOOD COUNT 3.3 10^3/ul (4.8-10.8)
[2017-05-05 07:13] LABS: ALBUMIN 3.9 g/dl (3.3-4.9); ALBUMIN/GLOBULIN RATIO 1.34; BILIRUBIN,INDIRECT 0.8 mg/dl (0-1.1); BILIRUBIN,TOTAL 0.8 mg/dl (0.2-1.3); CALCIUM 10.4 mg/dl (8.4-10.2); CREATININE 1.24 mg/dl (0.61-1.24); POTASSIUM 5.1 mmol/L (3.5-5.1); TOTAL PROTEIN 6.8 g/dl (6.1-8.1)
[2017-05-05] MEDS: INSULIN ASPART [NOVOLOG] 3 ML PEN SC SCH ×4 (08:00→21:00)
[2017-05-05] MEDS: predniSONE 5 MG TAB PO SCH (08:21)
[2017-05-05] MEDS: NIFEdipine (XL) 30 MG TAB PO SCH (08:22)
[2017-05-05] MEDS: TACROLIMUS 0.5 MG CAP PO SCH ×2 (08:24→21:00)
[2017-05-05] MEDS: METOPROLOL 25 MG TAB PO SCH ×2 (08:28→20:55)
[2017-05-05] MEDS: INSULIN GLARGINE [LANtus] 3 ML PEN SC SCH (08:30)
[2017-05-05] MEDS: morphine 2 MG INJ IV PRN (08:31)
[2017-05-05] MEDS: MYCOPHENOLATE (SR) 180 MG TAB PO SCH ×2 (08:48→20:56)
--- NOTE | 2017-05-05 11:44 | PN ---
Date/Time of Note Date/Time of Note DATE: 05/05/17 TIME: 11:37 Assessment/Plan VTE Prophylaxis VTE Prophylaxis Intervention: SCD's Lines/Catheters [facility] Peripheral IV Urinary Cath still in place: No Assessment/Plan Chief Complaint/Hosp Course Sinus rhythm on telemetry patient remains hemodynamically stable, transfer to [facility]. Problems: Assessment/Plan -Intractable nausea and vomiting on admission, currently resolved -Abdominal pain -Possible pancreatitis -HCV positive -Acute kidney injury -History of kidney transplant in 2009, continue Prograf Myfortic and prednisone -Diabetes mellitus, continue Lantus and NovoLog -Hypertension, continue metoprolol. Further recommendations based on clinical course. Plan of care discussed with Dr. Maier. Exam/Review of Systems Vital Signs Vitals Vital Signs Date Time Temp Pulse Resp B/P Pulse Ox O2 Delivery O2 Flow Rate FiO2 05/05/17 08:00 66 05/05/17 07:54 98.9 18 139/76 98 05/04/17 16:00 Room Air Intake and Output 05/04/17 05/04/17 05/05/17 15:00 23:00 07:00 Intake Total 1000 ml 1150 ml 1550 ml Output Total 600 ml 420 ml 700 ml Balance 400 ml 730 ml 850 ml Exam Constitutional: alert, oriented Head: normocephalic ENMT: nl external ears & nose Neck: supple Respiratory: normal air movement Cardiovascular: nl pulses Gastrointestinal: non-tender, soft Extremities: normal pulses 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: nl mental status Results Result Diagram: 05/05/17 0600 05/05/17 0600 Results 24 hrs Laboratory Tests Test 05/04/17 12:03 05/04/17 17:12 05/04/17 21:21 05/05/17 06:00 Bedside Glucose 88 81 185 White Blood Count 3.3 L Red Blood Count 4.51 L Hemoglobin 15.2 Hematocrit 46.2 Mean Corpuscular Volume 102.4 H Mean Corpuscular Hemoglobin 33.7 H Mean Corpuscular Hemoglobin Concent 32.9 Red Cell Distribution Width 12.7 Platelet Count 133 L Mean Platelet Volume 10.8 H Neutrophils % 62.3 Lymphocytes % 21.0 Monocytes % 13.1 H Eosinophils % 2.7 Basophils % 0.3 Nucleated Red Blood Cells % 0.0 Neutrophils # 2.0 Lymphocytes # 0.7 L Monocytes # 0.4 Eosinophils # 0.1 Basophils # 0.0 Nucleated Red Blood Cells # 0.0 Sodium Level 140 Potassium Level 5.1 Chloride Level 103 Carbon Dioxide Level 22 Anion Gap 20 H Blood Urea Nitrogen 15 Creatinine 1.24 Glucose Level 118 Hemoglobin A1c 6.7 H Calcium Level 10.4 H Total Bilirubin 0.8 Direct Bilirubin 0.00 Indirect Bilirubin 0.8 Aspartate Amino Transf (AST/SGOT) 67 H Alanine Aminotransferase (ALT/SGPT) 77 H Alkaline Phosphatase 76 Total Protein 6.8 Albumin 3.9 Globulin 2.90 Albumin/Globulin Ratio 1.34 Test 05/05/17 08:16 Bedside Glucose 124 Medications Medications Current Medications Clonidine (Catapres) 0.1 mg Q4H PRN PO ELEVATED BLOOD PRESSURE>150 Last administered on 05/04/17 12:11; Admin Dose 0.1 MG; Start 05/03/17 at 20:00 Acetaminophen/ Hydrocodone Bitart ([place] (5/325)) 1 tab Q6H PRN PO PAIN; Start 05/03/17 at 20:00 Mycophenolate Sodium (Myfortic) 540 mg BID PO Last administered on 05/05/17 08: 48; Admin Dose 540 MG; Start 05/03/17 at 21:00 Nifedipine (Procardia Xl) 30 mg DAILY PO Last administered on 05/05/17 08:22; Admin Dose 30 MG; Start 05/04/17 at 09:00 Prednisone (Prednisone) 5 mg DAILY PO Last administered on 05/05/17 08:21; Admin Dose 5 MG; Start 05/04/17 at 09:00 Acetaminophen (Tylenol Tab) 650 mg Q6 PRN PO FEVER GREATER THAN 100.6; Start at 20:00 Diagnostic Test (Pha) (Accu-Chek) 1 ea 02 XX Last administered on 05/04/17 02: 00; Admin Dose 1 EA; Start 05/04/17 at 02:00 Miscellaneous Information 1 ea NOTE XX ; Start 05/03/17 at 22:00 Glucose (Glutose) 15 gm Q15M PRN PO DECREASED GLUCOSE; Start 05/03/17 at 22:00 Glucose (Glutose) 22.5 gm Q15M PRN PO DECREASED GLUCOSE; Start 05/03/17 at 22:00 Dextrose (D50w Syringe) 25 ml Q15M PRN IV DECREASED GLUCOSE; Start 05/03/17 at 22:00 Dextrose (D50w Syringe) 50 ml Q15M PRN IV DECREASED GLUCOSE; Start 05/03/17 at 22:00 Glucagon (Glucagen) 1 mg Q15M PRN IM DECREASED GLUCOSE; Start 05/03/17 at 22:00 Glucose (Glutose) 15 gm Q15M PRN BUCCAL DECREASED GLUCOSE; Start 05/03/17 at 22: 00 Tacrolimus 3 mg 3 mg BID PO Last administered on 05/05/17 08:24; Admin Dose 3 MG; Start 05/03/17 at 22:30 Sodium Chloride (NS) 1,000 ml @ 100 mls/hr Q10H IV Last administered on 04:42; Admin Dose 100 MLS/HR; Start 05/04/17 at 15:00 Metoprolol Tartrate (Lopressor) 25 mg BID PO Last administered on 05/04/17 21: 03; Admin Dose 25 MG; Start 05/04/17 at 21:00 Acetaminophen/ Hydrocodone Bitart ([place] (5/325)) 1 tab Q6H PRN PO PAIN; Start 05/05/17 at 00:00 Morphine Sulfate (morphine) 2 mg Q6 PRN IV PAIN LEVEL 7-10 Last administered on 05/05/17 08:31; Admin Dose 2 MG; Start 05/04/17 at 19:30 Ondansetron HCl (Zofran Inj) 4 mg Q6H PRN IV NAUSEA AND/OR VOMITING; Start 05/04 at 19:30 Insulin Glargine (Lantus) 10 unit QAM@08 SC ; Start 05/05/17 at 08:30 LETI RODRIGUEZ May 05, 2017 11:43
[2017-05-05] MEDS: HYDROCODONE/APAP (5/325) TAB PO PRN ×2 (15:21→20:56)
--- NOTE | 2017-05-05 18:55 | CONS ---
Date/Time of Note Date/Time of Note DATE: 05/05/17 TIME: 18:53 Assessment/Plan Assessment/Plan Chief Complaint/Hosp Course 56-year-old male with past history of hypertension, diabetes, kidney transplant in 2009 is admitted for abdominal pain and vomiting x 1 day Per patient his creatinine was 1.9 and his baseline creatinine is 1.5. He saw his primary doctor last week. Patient stated his antirejection medicines is causing vomiting every time he takes it. pt has been on prograf, prednisone and myfortic pt is not sure about which medication is causing vomiting Problems: Additional Assessment/Plan 1. Acute Kidney injury due to prerenal azotemia 2. 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 H/o Kidney transplant in 2009 - now on Prograf, myfortic and prednisone 4. abdominal pain Plan: Continue prograf 3 mg BID, prednisone 5 mg daily and myfortic 540mg BID decrease NS to 40 cc/hr , Cr improved to 1.2 Expecting Creatinine to improve with IVF- d/c IVF will follow up Consultation Date/Type/Reason Admit Date/Time May 03, 2017 at 20:05 Initial Consult Date 05/04/17 Type of Consultation: GI Referring Provider: LUPE KAPLAN MD Exam/Review of Systems Vital Signs Vitals Vital Signs Date Time Temp Pulse Resp B/P Pulse Ox O2 Delivery O2 Flow Rate FiO2 05/05/17 16:00 69 05/05/17 07:54 98.9 18 139/76 98 05/04/17 16:00 Room Air Intake and Output 05/04/17 05/04/17 05/05/17 15:00 23:00 07:00 Intake Total 1000 ml 1150 ml 1550 ml Output Total 600 ml 420 ml 700 ml Balance 400 ml 730 ml 850 ml Results Result Diagram: 05/05/17 0600 05/05/17 0600 Results 24 hrs Laboratory Tests Test 05/04/17 21:21 05/05/17 06:00 05/05/17 08:16 05/05/17 13:00 Bedside Glucose 185 124 145 White Blood Count 3.3 L Red Blood Count 4.51 L Hemoglobin 15.2 Hematocrit 46.2 Mean Corpuscular Volume 102.4 H Mean Corpuscular Hemoglobin 33.7 H Mean Corpuscular Hemoglobin Concent 32.9 Red Cell Distribution Width 12.7 Platelet Count 133 L Mean Platelet Volume 10.8 H Neutrophils % 62.3 Lymphocytes % 21.0 Monocytes % 13.1 H Eosinophils % 2.7 Basophils % 0.3 Nucleated Red Blood Cells % 0.0 Neutrophils # 2.0 Lymphocytes # 0.7 L Monocytes # 0.4 Eosinophils # 0.1 Basophils # 0.0 Nucleated Red Blood Cells # 0.0 Sodium Level 140 Potassium Level 5.1 Chloride Level 103 Carbon Dioxide Level 22 Anion Gap 20 H Blood Urea Nitrogen 15 Creatinine 1.24 Glucose Level 118 Hemoglobin A1c 6.7 H Calcium Level 10.4 H Total Bilirubin 0.8 Direct Bilirubin 0.00 Indirect Bilirubin 0.8 Aspartate Amino Transf (AST/SGOT) 67 H Alanine Aminotransferase (ALT/SGPT) 77 H Alkaline Phosphatase 76 Total Protein 6.8 Albumin 3.9 Globulin 2.90 Albumin/Globulin Ratio 1.34 Test 05/05/17 17:33 Bedside Glucose 178 Medications Medications Current Medications Clonidine (Catapres) 0.1 mg Q4H PRN PO ELEVATED BLOOD PRESSURE>150 Last administered on 05/04/17 12:11; Admin Dose 0.1 MG; Start 05/03/17 at 20:00 Acetaminophen/ Hydrocodone Bitart ([place] (5/325)) 1 tab Q6H PRN PO PAIN Last administered on 05/05/17 15:21; Admin Dose 1 TAB; Start 05/03/17 at 20:00 Mycophenolate Sodium (Myfortic) 540 mg BID PO Last administered on 05/05/17 08: 48; Admin Dose 540 MG; Start 05/03/17 at 21:00 Nifedipine (Procardia Xl) 30 mg DAILY PO Last administered on 05/05/17 08:22; Admin Dose 30 MG; Start 05/04/17 at 09:00 Prednisone (Prednisone) 5 mg DAILY PO Last administered on 05/05/17 08:21; Admin Dose 5 MG; Start 05/04/17 at 09:00 Acetaminophen (Tylenol Tab) 650 mg Q6 PRN PO FEVER GREATER THAN 100.6; Start at 20:00 Diagnostic Test (Pha) (Accu-Chek) 1 ea 02 XX Last administered on 05/04/17 02: 00; Admin Dose 1 EA; Start 05/04/17 at 02:00 Miscellaneous Information 1 ea NOTE XX ; Start 05/03/17 at 22:00 Glucose (Glutose) 15 gm Q15M PRN PO DECREASED GLUCOSE; Start 05/03/17 at 22:00 Glucose (Glutose) 22.5 gm Q15M PRN PO DECREASED GLUCOSE; Start 05/03/17 at 22:00 Dextrose (D50w Syringe) 25 ml Q15M PRN IV DECREASED GLUCOSE; Start 05/03/17 at 22:00 Dextrose (D50w Syringe) 50 ml Q15M PRN IV DECREASED GLUCOSE; Start 05/03/17 at 22:00 Glucagon (Glucagen) 1 mg Q15M PRN IM DECREASED GLUCOSE; Start 05/03/17 at 22:00 Glucose (Glutose) 15 gm Q15M PRN BUCCAL DECREASED GLUCOSE; Start 05/03/17 at 22: 00 Tacrolimus 3 mg 3 mg BID PO Last administered on 05/05/17 08:24; Admin Dose 3 MG; Start 05/03/17 at 22:30 Sodium Chloride (NS) 1,000 ml @ 100 mls/hr Q10H IV Last administered on 13:42; Admin Dose 100 MLS/HR; Start 05/04/17 at 15:00 Metoprolol Tartrate (Lopressor) 25 mg BID PO Last administered on 05/04/17 21: 03; Admin Dose 25 MG; Start 05/04/17 at 21:00 Acetaminophen/ Hydrocodone Bitart ([place] (5/325)) 1 tab Q6H PRN PO PAIN; Start 05/05/17 at 00:00 Morphine Sulfate (morphine) 2 mg Q6 PRN IV PAIN LEVEL 7-10 Last administered on 05/05/17 08:31; Admin Dose 2 MG; Start 05/04/17 at 19:30 Ondansetron HCl (Zofran Inj) 4 mg Q6H PRN IV NAUSEA AND/OR VOMITING; Start 05/04 at 19:30 Insulin Glargine (Lantus) 10 unit QAM@08 SC Last administered on 05/05/17 08:30 ; Admin Dose 10 UNIT; Start 05/05/17 at 08:30 SHAKA SIMPSON MD May 05, 2017 18:55
[2017-05-06] MEDS: SOD CHLORIDE 0.9% 1,000 ML IV SCH (00:45)
[2017-05-06] MEDS: ACCUCHECK AT 2AM (Patients on SS coverage) XX SCH (00:55)
[2017-05-06 06:51] LABS: ADD SCAN DIFF NO
[2017-05-06 06:53] LABS: BASOPHILS % 0.3 % (0.0-2.0); EOSINOPHILS # 0.1 10^3/ul (0.0-0.5); EOSINOPHILS % 2.8 % (0.0-7.0); HEMATOCRIT 48.2 % (42.0-52.0); HEMOGLOBIN 16.3 g/dl (14.0-18.0); LYMPHOCYTES # 0.8 10^3/ul (0.8-2.9); LYMPHOCYTES % 25.7 % (15.0-51.0); MEAN CORPUSCULAR HEMOGLOBIN 34.5 pg (29.0-33.0); MEAN CORPUSCULAR HGB CONC 33.8 g/dl (32.0-37.0); MEAN CORPUSCULAR VOLUME 102.1 fl (82.0-101.0); MEAN PLATELET VOLUME 10.7 fl (7.4-10.4); MONOCYTE # 0.4 10^3/ul (0.3-0.9); MONOCYTES % 12.5 % (0.0-11.0); NEUTROPHIL # 1.9 10^3/ul (1.6-7.5); NEUTROPHILS % 58.4 % (39.0-77.0); PLATELET COUNT 137 10^3/UL (140-415); RED BLOOD COUNT 4.72 10^6/ul (4.70-6.10); RED CELL DISTRIBUTION WIDTH 12.6 % (11.5-14.5); WHITE BLOOD COUNT 3.2 10^3/ul (4.8-10.8)
[2017-05-06 07:12] LABS: CALCIUM 10.8 mg/dl (8.4-10.2); CREATININE 1.19 mg/dl (0.61-1.24); POTASSIUM 4.6 mmol/L (3.5-5.1)
[2017-05-06 07:34] VITALS: BP 143/80; RESP 17
[2017-05-06] MEDS: INSULIN GLARGINE [LANtus] 3 ML PEN SC SCH (08:00)
[2017-05-06] MEDS: INSULIN ASPART [NOVOLOG] 3 ML PEN SC SCH ×4 (08:00→21:00)
--- NOTE | 2017-05-06 09:52 | PN ---
Date/Time of Note Date/Time of Note DATE: 05/06/17 TIME: 09:49 Assessment/Plan Lines/Catheters IV Catheter Type (from Nrs): Peripheral IV Urinary Cath still in place: No Assessment/Plan Assessment/Plan -Intractable nausea and vomiting on admission, currently resolved -Abdominal pain -Possible pancreatitis -HCV positive -Acute kidney injury -History of kidney transplant in 2009, continue Prograf Myfortic and prednisone -Diabetes mellitus, continue Lantus and NovoLog -Hypertension, continue metoprolol. Further recommendations based on clinical course. Plan of care discussed with Dr. Maier. Subjective 24 Hr Interval Summary Free Text/Dictation c/o abdominal pain- pain med is effective, Sinus rhythm on telemetry, ambulatory in [address] per staff ,patient remains hemodynamically stable, Respiratory: no complaints Cardiovascular: no complaints Gastrointestinal: pain Genitourinary: no complaints Musculoskeletal: no complaints Exam/Review of Systems Vital Signs Vitals Vital Signs Date Time Temp Pulse Resp B/P Pulse Ox O2 Delivery O2 Flow Rate FiO2 05/06/17 07:34 98.2 71 17 143/80 98 05/04/17 16:00 Room Air Intake and Output 05/05/17 05/05/17 05/06/17 15:00 23:00 07:00 Intake Total 300 ml 830 ml Output Total 1500 ml Balance 300 ml -670 ml Exam Constitutional: alert, oriented, well developed Respiratory: clear to auscultation, normal air movement Cardiovascular: nl pulses, regular rate and rhythm Gastrointestinal: soft, tender Musculoskeletal: nl extremities to inspection Extremities: normal pulses 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: nl mental status, nl speech Results Result Diagram: 05/06/17 0551 05/06/17 0551 Results 24 hrs Laboratory Tests Test 05/05/17 13:00 05/05/17 17:33 05/05/17 21:05 05/06/17 02:00 Bedside Glucose 145 178 113 Stool Occult Blood NEGATIVE Test 05/06/17 05:51 05/06/17 08:33 White Blood Count 3.2 L Red Blood Count 4.72 Hemoglobin 16.3 Hematocrit 48.2 Mean Corpuscular Volume 102.1 H Mean Corpuscular Hemoglobin 34.5 H Mean Corpuscular Hemoglobin Concent 33.8 Red Cell Distribution Width 12.6 Platelet Count 137 L Mean Platelet Volume 10.7 H Neutrophils % 58.4 Lymphocytes % 25.7 Monocytes % 12.5 H Eosinophils % 2.8 Basophils % 0.3 Nucleated Red Blood Cells % 0.0 Neutrophils # 1.9 Lymphocytes # 0.8 Monocytes # 0.4 Eosinophils # 0.1 Basophils # 0.0 Nucleated Red Blood Cells # 0.0 Sodium Level 143 Potassium Level 4.6 Chloride Level 103 Carbon Dioxide Level 23 Anion Gap 22 H Blood Urea Nitrogen 13 Creatinine 1.19 Glucose Level 99 Calcium Level 10.8 H Bedside Glucose 107 Medications Medications Current Medications Clonidine (Catapres) 0.1 mg Q4H PRN PO ELEVATED BLOOD PRESSURE>150 Last administered on 05/04/17 12:11; Admin Dose 0.1 MG; Start 05/03/17 at 20:00 Acetaminophen/ Hydrocodone Bitart ([place] (5/325)) 1 tab Q6H PRN PO PAIN Last administered on 05/05/17 20:56; Admin Dose 1 TAB; Start 05/03/17 at 20:00 Mycophenolate Sodium (Myfortic) 540 mg BID PO Last administered on 05/05/17 20: 56; Admin Dose 540 MG; Start 05/03/17 at 21:00 Nifedipine (Procardia Xl) 30 mg DAILY PO Last administered on 05/05/17 08:22; Admin Dose 30 MG; Start 05/04/17 at 09:00 Prednisone (Prednisone) 5 mg DAILY PO Last administered on 05/05/17 08:21; Admin Dose 5 MG; Start 05/04/17 at 09:00 Acetaminophen (Tylenol Tab) 650 mg Q6 PRN PO FEVER GREATER THAN 100.6; Start at 20:00 Diagnostic Test (Pha) (Accu-Chek) 1 ea 02 XX Last administered on 05/04/17 02: 00; Admin Dose 1 EA; Start 05/04/17 at 02:00 Miscellaneous Information 1 ea NOTE XX ; Start 05/03/17 at 22:00 Glucose (Glutose) 15 gm Q15M PRN PO DECREASED GLUCOSE; Start 05/03/17 at 22:00 Glucose (Glutose) 22.5 gm Q15M PRN PO DECREASED GLUCOSE; Start 05/03/17 at 22:00 Dextrose (D50w Syringe) 25 ml Q15M PRN IV DECREASED GLUCOSE; Start 05/03/17 at 22:00 Dextrose (D50w Syringe) 50 ml Q15M PRN IV DECREASED GLUCOSE; Start 05/03/17 at 22:00 Glucagon (Glucagen) 1 mg Q15M PRN IM DECREASED GLUCOSE; Start 05/03/17 at 22:00 Glucose (Glutose) 15 gm Q15M PRN BUCCAL DECREASED GLUCOSE; Start 05/03/17 at 22: 00 Tacrolimus 3 mg 3 mg BID PO Last administered on 05/05/17 21:00; Admin Dose 3 MG; Start 05/03/17 at 22:30 Sodium Chloride (NS) 1,000 ml @ 40 mls/hr Q24H IV Last administered on 00:45; Admin Dose 40 MLS/HR; Start 05/04/17 at 15:00 Metoprolol Tartrate (Lopressor) 25 mg BID PO Last administered on 05/05/17 20: 55; Admin Dose 25 MG; Start 05/04/17 at 21:00 Acetaminophen/ Hydrocodone Bitart ([place] (5/325)) 1 tab Q6H PRN PO PAIN; Start 05/05/17 at 00:00 Morphine Sulfate (morphine) 2 mg Q6 PRN IV PAIN LEVEL 7-10 Last administered on 05/05/17 08:31; Admin Dose 2 MG; Start 05/04/17 at 19:30 Ondansetron HCl (Zofran Inj) 4 mg Q6H PRN IV NAUSEA AND/OR VOMITING; Start 05/04 at 19:30 Insulin Glargine (Lantus) 10 unit QAM@08 SC Last administered on 05/05/17 08:30 ; Admin Dose 10 UNIT; Start 05/05/17 at 08:30 EILEEN COBURN May 06, 2017 09:51
[2017-05-06] MEDS: predniSONE 5 MG TAB PO SCH (10:28)
[2017-05-06] MEDS: METOPROLOL 25 MG TAB PO SCH ×2 (10:28→20:42)
[2017-05-06] MEDS: NIFEdipine (XL) 30 MG TAB PO SCH (10:28)
[2017-05-06] MEDS: TACROLIMUS 0.5 MG CAP PO SCH ×2 (10:29→20:42)
[2017-05-06] MEDS: MYCOPHENOLATE (SR) 180 MG TAB PO SCH ×2 (10:29→20:42)
[2017-05-06] MEDS: morphine 2 MG INJ IV PRN (10:40)
--- NOTE | 2017-05-06 11:04 | CONS ---
Date/Time of Note Date/Time of Note DATE: 05/06/17 TIME: 11:03 Assessment/Plan Assessment/Plan Chief Complaint/Hosp Course Impression: 1. pancreatitis with elevated lipase: symptomatically improved. amylase and lipase normalized. 2. elevated transaminases 3. macrocytic anemia 4. HCV positive Recommendations: 1. advance diet to 2g 1800 ADA diet 2. IVF 3. check CMP tomorrow 4. protonix 40 mg po bid 5. stool for occult blood 6. elevated transaminases likely due to HCV. This can be treated as out-pt with hepatology referral at [facility] or [facility]. 7. ok from gi perspective to dc if ok with primary and other consultants. Problems: Consultation Date/Type/Reason Admit Date/Time May 03, 2017 at 20:05 Type of Consultation: GI Referring Provider: LUPE KAPLAN MD 24 HR Interval Summary Free Text/Dictation no n/v, no abdominal pain, wants to go home Constitutional: improved Exam/Review of Systems Vital Signs Vitals Vital Signs Date Time Temp Pulse Resp B/P Pulse Ox O2 Delivery O2 Flow Rate FiO2 05/06/17 07:34 98.2 71 17 143/80 98 05/04/17 16:00 Room Air Intake and Output 05/05/17 05/05/17 05/06/17 15:00 23:00 07:00 Intake Total 300 ml 830 ml Output Total 1500 ml Balance 300 ml -670 ml Exam Constitutional: alert, oriented, well developed Psych: nl mood/affect, no complaints Head: atraumatic, normocephalic Eyes: EOMI, nl conjunctiva, nl lids, nl sclera ENMT: mucosa pink and moist, nl external ears & nose, nl lips & teeth, nl nasal mucosa & septum Neck: non-tender, supple Respiratory: clear to auscultation, normal air movement Cardiovascular: nl pulses, regular rate and rhythm Gastrointestinal: bowel sounds, non-tender, soft Results Result Diagram: 05/06/17 0551 05/06/17 0551 Results 24 hrs Laboratory Tests Test 05/05/17 13:00 05/05/17 17:33 05/05/17 21:05 05/06/17 02:00 Bedside Glucose 145 178 113 Stool Occult Blood NEGATIVE Test 05/06/17 05:51 05/06/17 08:33 White Blood Count 3.2 L Red Blood Count 4.72 Hemoglobin 16.3 Hematocrit 48.2 Mean Corpuscular Volume 102.1 H Mean Corpuscular Hemoglobin 34.5 H Mean Corpuscular Hemoglobin Concent 33.8 Red Cell Distribution Width 12.6 Platelet Count 137 L Mean Platelet Volume 10.7 H Neutrophils % 58.4 Lymphocytes % 25.7 Monocytes % 12.5 H Eosinophils % 2.8 Basophils % 0.3 Nucleated Red Blood Cells % 0.0 Neutrophils # 1.9 Lymphocytes # 0.8 Monocytes # 0.4 Eosinophils # 0.1 Basophils # 0.0 Nucleated Red Blood Cells # 0.0 Sodium Level 143 Potassium Level 4.6 Chloride Level 103 Carbon Dioxide Level 23 Anion Gap 22 H Blood Urea Nitrogen 13 Creatinine 1.19 Glucose Level 99 Calcium Level 10.8 H Bedside Glucose 107 Medications Medications Current Medications Clonidine (Catapres) 0.1 mg Q4H PRN PO ELEVATED BLOOD PRESSURE>150 Last administered on 05/04/17 12:11; Admin Dose 0.1 MG; Start 05/03/17 at 20:00 Acetaminophen/ Hydrocodone Bitart ([place] (5/325)) 1 tab Q6H PRN PO PAIN Last administered on 05/05/17 20:56; Admin Dose 1 TAB; Start 05/03/17 at 20:00 Mycophenolate Sodium (Myfortic) 540 mg BID PO Last administered on 05/06/17 10: 29; Admin Dose 540 MG; Start 05/03/17 at 21:00 Nifedipine (Procardia Xl) 30 mg DAILY PO Last administered on 05/06/17 10:28; Admin Dose 30 MG; Start 05/04/17 at 09:00 Prednisone (Prednisone) 5 mg DAILY PO Last administered on 05/06/17 10:28; Admin Dose 5 MG; Start 05/04/17 at 09:00 Acetaminophen (Tylenol Tab) 650 mg Q6 PRN PO FEVER GREATER THAN 100.6; Start at 20:00 Diagnostic Test (Pha) (Accu-Chek) 1 ea 02 XX Last administered on 05/04/17 02: 00; Admin Dose 1 EA; Start 05/04/17 at 02:00 Miscellaneous Information 1 ea NOTE XX ; Start 05/03/17 at 22:00 Glucose (Glutose) 15 gm Q15M PRN PO DECREASED GLUCOSE; Start 05/03/17 at 22:00 Glucose (Glutose) 22.5 gm Q15M PRN PO DECREASED GLUCOSE; Start 05/03/17 at 22:00 Dextrose (D50w Syringe) 25 ml Q15M PRN IV DECREASED GLUCOSE; Start 05/03/17 at 22:00 Dextrose (D50w Syringe) 50 ml Q15M PRN IV DECREASED GLUCOSE; Start 05/03/17 at 22:00 Glucagon (Glucagen) 1 mg Q15M PRN IM DECREASED GLUCOSE; Start 05/03/17 at 22:00 Glucose (Glutose) 15 gm Q15M PRN BUCCAL DECREASED GLUCOSE; Start 05/03/17 at 22: 00 Tacrolimus 3 mg 3 mg BID PO Last administered on 05/06/17 10:29; Admin Dose 3 MG; Start 05/03/17 at 22:30 Sodium Chloride (NS) 1,000 ml @ 40 mls/hr Q24H IV Last administered on 00:45; Admin Dose 40 MLS/HR; Start 05/04/17 at 15:00 Metoprolol Tartrate (Lopressor) 25 mg BID PO Last administered on 05/06/17 10: 28; Admin Dose 25 MG; Start 05/04/17 at 21:00 Acetaminophen/ Hydrocodone Bitart ([place] (5/325)) 1 tab Q6H PRN PO PAIN; Start 05/05/17 at 00:00 Morphine Sulfate (morphine) 2 mg Q6 PRN IV PAIN LEVEL 7-10 Last administered on 05/06/17 10:40; Admin Dose 2 MG; Start 05/04/17 at 19:30 Ondansetron HCl (Zofran Inj) 4 mg Q6H PRN IV NAUSEA AND/OR VOMITING; Start 05/04 at 19:30 Insulin Glargine (Lantus) 10 unit QAM@08 SC Last administered on 05/05/17 08:30 ; Admin Dose 10 UNIT; Start 05/05/17 at 08:30 LIZ TEJEDA MD May 06, 2017 11:04
[2017-05-06 11:25] VITALS: BP 142/84; RESP 19
--- NOTE | 2017-05-06 13:23 | CONS ---
Date/Time of Note Date/Time of Note DATE: 05/06/17 TIME: 13:21 Assessment/Plan Assessment/Plan Chief Complaint/Hosp Course 56-year-old male with past history of hypertension, diabetes, kidney transplant in 2009 is admitted for abdominal pain and vomiting x 1 day Per patient his creatinine was 1.9 and his baseline creatinine is 1.5. He saw his primary doctor last week. Patient stated his antirejection medicines is causing vomiting every time he takes it. pt has been on prograf, prednisone and myfortic pt is not sure about which medication is causing vomiting Problems: Additional Assessment/Plan 1. Acute Kidney injury due to prerenal azotemia 2. 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 H/o Kidney transplant in 2009 - now on Prograf, myfortic and prednisone 4. abdominal pain Plan: Continue prograf 3 mg BID, prednisone 5 mg daily and myfortic 540mg BID cr imrpoved to normal, d/c IV fluids will follow up Consultation Date/Type/Reason Admit Date/Time May 03, 2017 at 20:05 Initial Consult Date 05/04/17 Type of Consultation: NEPHROLOGY Reason for Consultation Kidney transplant, DESHAUN Referring Provider: LUPE KAPLAN MD 24 HR Interval Summary Free Text/Dictation Cr normal, electrolytes stable, making good urine, BP stable Exam/Review of Systems Vital Signs Vitals Vital Signs Date Time Temp Pulse Resp B/P Pulse Ox O2 Delivery O2 Flow Rate FiO2 05/06/17 11:25 98.6 70 19 142/84 99 05/04/17 16:00 Room Air Intake and Output 05/05/17 05/05/17 05/06/17 15:00 23:00 07:00 Intake Total 300 ml 830 ml Output Total 1500 ml Balance 300 ml -670 ml Exam Constitutional: alert, oriented, well developed Psych: nl mood/affect, no complaints Head: atraumatic, normocephalic Eyes: EOMI, nl conjunctiva, nl lids, nl sclera ENMT: mucosa pink and moist, nl external ears & nose, nl lips & teeth, nl nasal mucosa & septum Neck: non-tender, supple Respiratory: clear to auscultation, normal air movement Cardiovascular: nl pulses, regular rate and rhythm Gastrointestinal: bowel sounds, non-tender, soft RLQ renal allograft in place, no bruit, no thrill Results Result Diagram: 05/06/17 0551 05/06/17 0551 Results 24 hrs Laboratory Tests Test 05/05/17 17:33 05/05/17 21:05 05/06/17 02:00 05/06/17 05:51 Bedside Glucose 178 113 Stool Occult Blood NEGATIVE White Blood Count 3.2 L Red Blood Count 4.72 Hemoglobin 16.3 Hematocrit 48.2 Mean Corpuscular Volume 102.1 H Mean Corpuscular Hemoglobin 34.5 H Mean Corpuscular Hemoglobin Concent 33.8 Red Cell Distribution Width 12.6 Platelet Count 137 L Mean Platelet Volume 10.7 H Neutrophils % 58.4 Lymphocytes % 25.7 Monocytes % 12.5 H Eosinophils % 2.8 Basophils % 0.3 Nucleated Red Blood Cells % 0.0 Neutrophils # 1.9 Lymphocytes # 0.8 Monocytes # 0.4 Eosinophils # 0.1 Basophils # 0.0 Nucleated Red Blood Cells # 0.0 Sodium Level 143 Potassium Level 4.6 Chloride Level 103 Carbon Dioxide Level 23 Anion Gap 22 H Blood Urea Nitrogen 13 Creatinine 1.19 Glucose Level 99 Calcium Level 10.8 H Test 05/06/17 08:33 05/06/17 11:45 Bedside Glucose 107 156 Medications Medications Current Medications Clonidine (Catapres) 0.1 mg Q4H PRN PO ELEVATED BLOOD PRESSURE>150 Last administered on 05/04/17 12:11; Admin Dose 0.1 MG; Start 05/03/17 at 20:00 Acetaminophen/ Hydrocodone Bitart ([place] (5/325)) 1 tab Q6H PRN PO PAIN Last administered on 05/05/17 20:56; Admin Dose 1 TAB; Start 05/03/17 at 20:00 Mycophenolate Sodium (Myfortic) 540 mg BID PO Last administered on 05/06/17 10: 29; Admin Dose 540 MG; Start 05/03/17 at 21:00 Nifedipine (Procardia Xl) 30 mg DAILY PO Last administered on 05/06/17 10:28; Admin Dose 30 MG; Start 05/04/17 at 09:00 Prednisone (Prednisone) 5 mg DAILY PO Last administered on 05/06/17 10:28; Admin Dose 5 MG; Start 05/04/17 at 09:00 Acetaminophen (Tylenol Tab) 650 mg Q6 PRN PO FEVER GREATER THAN 100.6; Start at 20:00 Diagnostic Test (Pha) (Accu-Chek) 1 ea 02 XX Last administered on 05/04/17 02: 00; Admin Dose 1 EA; Start 05/04/17 at 02:00 Miscellaneous Information 1 ea NOTE XX ; Start 05/03/17 at 22:00 Glucose (Glutose) 15 gm Q15M PRN PO DECREASED GLUCOSE; Start 05/03/17 at 22:00 Glucose (Glutose) 22.5 gm Q15M PRN PO DECREASED GLUCOSE; Start 05/03/17 at 22:00 Dextrose (D50w Syringe) 25 ml Q15M PRN IV DECREASED GLUCOSE; Start 05/03/17 at 22:00 Dextrose (D50w Syringe) 50 ml Q15M PRN IV DECREASED GLUCOSE; Start 05/03/17 at 22:00 Glucagon (Glucagen) 1 mg Q15M PRN IM DECREASED GLUCOSE; Start 05/03/17 at 22:00 Glucose (Glutose) 15 gm Q15M PRN BUCCAL DECREASED GLUCOSE; Start 05/03/17 at 22: 00 Tacrolimus 3 mg 3 mg BID PO Last administered on 05/06/17 10:29; Admin Dose 3 MG; Start 05/03/17 at 22:30 Sodium Chloride (NS) 1,000 ml @ 40 mls/hr Q24H IV Last administered on 00:45; Admin Dose 40 MLS/HR; Start 05/04/17 at 15:00 Metoprolol Tartrate (Lopressor) 25 mg BID PO Last administered on 05/06/17 10: 28; Admin Dose 25 MG; Start 05/04/17 at 21:00 Acetaminophen/ Hydrocodone Bitart ([place] (5/325)) 1 tab Q6H PRN PO PAIN; Start 05/05/17 at 00:00 Morphine Sulfate (morphine) 2 mg Q6 PRN IV PAIN LEVEL 7-10 Last administered on 05/06/17 10:40; Admin Dose 2 MG; Start 05/04/17 at 19:30 Ondansetron HCl (Zofran Inj) 4 mg Q6H PRN IV NAUSEA AND/OR VOMITING; Start 05/04 at 19:30 Insulin Glargine (Lantus) 10 unit QAM@08 SC Last administered on 7/3/17at 08:30 ; Admin Dose 10 UNIT; Start 05/05/17 at 08:30 SHAKA SIMPSON MD May 06, 2017 13:23
[2017-05-06 15:42] VITALS: BP 122/70; RESP 17
[2017-05-06] MEDS: HYDROCODONE/APAP (5/325) TAB PO PRN ×2 (16:43→20:45)
[2017-05-06 19:41] VITALS: BP 142/74; RESP 15
[2017-05-06 23:32] VITALS: BP 132/78; RESP 16
[2017-05-07] MEDS: ACCUCHECK AT 2AM (Patients on SS coverage) XX SCH (02:00)
[2017-05-07 03:50] VITALS: BP 149/87; RESP 17
[2017-05-07 07:32] LABS: ADD SCAN DIFF NO
[2017-05-07 07:37] LABS: BASOPHILS % 0.3 % (0.0-2.0); EOSINOPHILS # 0.1 10^3/ul (0.0-0.5); EOSINOPHILS % 2.8 % (0.0-7.0); HEMATOCRIT 52.9 % (42.0-52.0); HEMOGLOBIN 17.4 g/dl (14.0-18.0); LYMPHOCYTES # 0.8 10^3/ul (0.8-2.9); LYMPHOCYTES % 27.6 % (15.0-51.0); MEAN CORPUSCULAR HEMOGLOBIN 33.4 pg (29.0-33.0); MEAN CORPUSCULAR HGB CONC 32.9 g/dl (32.0-37.0); MEAN CORPUSCULAR VOLUME 101.5 fl (82.0-101.0); MEAN PLATELET VOLUME 10.8 fl (7.4-10.4); MONOCYTE # 0.5 10^3/ul (0.3-0.9); MONOCYTES % 17.8 % (0.0-11.0); NEUTROPHIL # 1.5 10^3/ul (1.6-7.5); NEUTROPHILS % 51.2 % (39.0-77.0); PLATELET COUNT 147 10^3/UL (140-415); RED BLOOD COUNT 5.21 10^6/ul (4.70-6.10); RED CELL DISTRIBUTION WIDTH 12.6 % (11.5-14.5); WHITE BLOOD COUNT 2.9 10^3/ul (4.8-10.8)
[2017-05-07] MEDS: INSULIN GLARGINE [LANtus] 3 ML PEN SC SCH (07:57)
[2017-05-07] MEDS: INSULIN ASPART [NOVOLOG] 3 ML PEN SC SCH ×4 (07:57→21:00)
[2017-05-07 07:59] VITALS: BP 129/76; RESP 18
[2017-05-07 08:10] LABS: CALCIUM 11.3 mg/dl (8.4-10.2); CREATININE 1.21 mg/dl (0.61-1.24); POTASSIUM 5.1 mmol/L (3.5-5.1)
[2017-05-07] MEDS: TACROLIMUS 0.5 MG CAP PO SCH ×2 (08:42→22:42)
[2017-05-07] MEDS: MYCOPHENOLATE (SR) 180 MG TAB PO SCH ×2 (08:42→23:12)
[2017-05-07] MEDS: predniSONE 5 MG TAB PO SCH (08:43)
[2017-05-07] MEDS: NIFEdipine (XL) 30 MG TAB PO SCH (08:43)
[2017-05-07] MEDS: METOPROLOL 25 MG TAB PO SCH ×2 (08:43→22:44)
[2017-05-07] MEDS: morphine 2 MG INJ IV PRN ×2 (08:44→16:40)
--- NOTE | 2017-05-07 11:26 | PN ---
Date/Time of Note Date/Time of Note DATE: 05/07/17 TIME: 11:24 Assessment/Plan VTE Prophylaxis VTE Prophylaxis Intervention: SCD's Lines/Catheters IV C[facility] Type (from [facility] Saline Lock Urinary Cath still in place: No Assessment/Plan Chief Complaint/Hosp Course Patient with gradually increased calcium, will discuss with nephrology regarding IV fluids, patient denies any nausea vomiting, creatinine returned to normal value. Assessment/Plan -Intractable nausea and vomiting on admission, currently resolved -Abdominal pain -Possible pancreatitis -HCV positive -Acute kidney injury -History of kidney transplant in 2009, continue Prograf Myfortic and prednisone -Diabetes mellitus, continue Lantus and NovoLog -Hypertension, continue metoprolol. Further recommendations based on clinical course. Plan of care discussed with Dr. Maier. Problems: Exam/Review of Systems Vital Signs Vitals Vital Signs Date Time Temp Pulse Resp B/P Pulse Ox O2 Delivery O2 Flow Rate FiO2 05/07/17 07:59 98.7 79 18 129/76 100 05/04/17 16:00 Room Air Intake and Output 05/06/17 05/06/17 05/07/17 15:00 23:00 07:00 Intake Total 400 ml 200 ml Output Total 1400 ml 1100 ml Balance -1000 ml -900 ml Exam Constitutional: alert, oriented Head: normocephalic ENMT: nl external ears & nose Neck: supple Respiratory: normal air movement Cardiovascular: nl pulses Gastrointestinal: non-tender, soft Extremities: normal pulses 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: nl mental status Results Result Diagram: 05/07/17 0640 05/07/17 0640 Results 24 hrs Laboratory Tests Test 05/06/17 11:45 05/06/17 17:03 05/06/17 20:41 05/07/17 06:40 Bedside Glucose 156 175 135 White Blood Count 2.9 L Red Blood Count 5.21 Hemoglobin 17.4 Hematocrit 52.9 H Mean Corpuscular Volume 101.5 H Mean Corpuscular Hemoglobin 33.4 H Mean Corpuscular Hemoglobin Concent 32.9 Red Cell Distribution Width 12.6 Platelet Count 147 Mean Platelet Volume 10.8 H Neutrophils % 51.2 Lymphocytes % 27.6 Monocytes % 17.8 H Eosinophils % 2.8 Basophils % 0.3 Nucleated Red Blood Cells % 0.0 Neutrophils # 1.5 L Lymphocytes # 0.8 Monocytes # 0.5 Eosinophils # 0.1 Basophils # 0.0 Nucleated Red Blood Cells # 0.0 Sodium Level 142 Potassium Level 5.1 Chloride Level 101 Carbon Dioxide Level 24 Anion Gap 22 H Blood Urea Nitrogen 13 Creatinine 1.21 Glucose Level 128 Calcium Level 11.3 H Test 05/07/17 07:54 Bedside Glucose 111 Medications Medications Current Medications Clonidine (Catapres) 0.1 mg Q4H PRN PO ELEVATED BLOOD PRESSURE>150 Last administered on 05/04/17 12:11; Admin Dose 0.1 MG; Start 05/03/17 at 20:00 Acetaminophen/ Hydrocodone Bitart ([place] (5/325)) 1 tab Q6H PRN PO PAIN Last administered on 05/06/17 20:45; Admin Dose 1 TAB; Start 05/03/17 at 20:00 Mycophenolate Sodium (Myfortic) 540 mg BID PO Last administered on 05/07/17 08: 42; Admin Dose 540 MG; Start 05/03/17 at 21:00 Nifedipine (Procardia Xl) 30 mg DAILY PO Last administered on 05/07/17 08:43; Admin Dose 30 MG; Start 05/04/17 at 09:00 Prednisone (Prednisone) 5 mg DAILY PO Last administered on 05/07/17 08:43; Admin Dose 5 MG; Start 05/04/17 at 09:00 Acetaminophen (Tylenol Tab) 650 mg Q6 PRN PO FEVER GREATER THAN 100.6; Start at 20:00 Diagnostic Test (Pha) (Accu-Chek) 1 ea 02 XX Last administered on 05/04/17 02: 00; Admin Dose 1 EA; Start 05/04/17 at 02:00 Miscellaneous Information 1 ea NOTE XX ; Start 05/03/17 at 22:00 Glucose (Glutose) 15 gm Q15M PRN PO DECREASED GLUCOSE; Start 05/03/17 at 22:00 Glucose (Glutose) 22.5 gm Q15M PRN PO DECREASED GLUCOSE; Start 05/03/17 at 22:00 Dextrose (D50w Syringe) 25 ml Q15M PRN IV DECREASED GLUCOSE; Start 05/03/17 at 22:00 Dextrose (D50w Syringe) 50 ml Q15M PRN IV DECREASED GLUCOSE; Start 05/03/17 at 22:00 Glucagon (Glucagen) 1 mg Q15M PRN IM DECREASED GLUCOSE; Start 05/03/17 at 22:00 Glucose (Glutose) 15 gm Q15M PRN BUCCAL DECREASED GLUCOSE; Start 05/03/17 at 22: 00 Tacrolimus (Prograf) 3 mg BID PO Last administered on 05/07/17 08:42; Admin Dose 3 MG; Start 05/03/17 at 22:30 Metoprolol Tartrate (Lopressor) 25 mg BID PO Last administered on 05/07/17 08: 43; Admin Dose 25 MG; Start 05/04/17 at 21:00 Acetaminophen/ Hydrocodone Bitart ([place] (5/325)) 1 tab Q6H PRN PO PAIN Last administered on 05/06/17 16:43; Admin Dose 1 TAB; Start 05/05/17 at 00:00 Morphine Sulfate (morphine) 2 mg Q6 PRN IV PAIN LEVEL 7-10 Last administered on 05/07/17 08:44; Admin Dose 2 MG; Start 05/04/17 at 19:30 Ondansetron HCl (Zofran Inj) 4 mg Q6H PRN IV NAUSEA AND/OR VOMITING; Start 05/04 at 19:30 Insulin Glargine (Lantus) 10 unit QAM@08 SC Last administered on 05/07/17 07:57 ; Admin Dose 10 UNIT; Start 05/05/17 at 08:30 LEIT RODRIGUEZ May 07, 2017 11:26
[2017-05-07 11:40] VITALS: BP 119/76; RESP 17
--- NOTE | 2017-05-07 12:29 | CONS ---
Date/Time of Note Date/Time of Note DATE: 05/07/17 TIME: 12:26 Assessment/Plan Assessment/Plan Additional Assessment/Plan Impression: 1. pancreatitis with elevated lipase: symptomatically improved. amylase and lipase normalized. 2. elevated transaminases 3. macrocytic anemia 4. HCV positive 5. Diabetes mellitus 6. Renal transplant Plan Continue with PPI If emesis persist then we will start the patient on Reglan. Consultation Date/Type/Reason Admit Date/Time May 03, 2017 at 20:05 Initial Consult Date 05/04/17 Type of Consultation: NEPHROLOGY Referring Provider: LUPE KAPLAN MD 24 HR Interval Summary Free Text/Dictation Patient complains of constant regurgitation No abdominal pain Exam/Review of Systems Vital Signs Vitals Vital Signs Date Time Temp Pulse Resp B/P Pulse Ox O2 Delivery O2 Flow Rate FiO2 05/07/17 11:40 98.1 64 17 119/76 100 05/04/17 16:00 Room Air Intake and Output 05/06/17 05/06/17 05/07/17 15:00 23:00 07:00 Intake Total 400 ml 200 ml Output Total 1400 ml 1100 ml Balance -1000 ml -900 ml Exam Constitutional: alert, oriented, well developed Psych: nl mood/affect, no complaints Head: atraumatic, normocephalic Eyes: EOMI, PERRL, nl conjunctiva, nl lids, nl sclera ENMT: nl external ears & nose, nl lips & teeth, nl nasal mucosa & septum Neck: non-tender, supple Respiratory: clear to auscultation, normal air movement Cardiovascular: nl pulses, regular rate and rhythm Gastrointestinal: nl liver, spleen, non-tender, soft Musculoskeletal: nl extremities to inspection, nl gait and stance Extremities: normal pulses 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: HYDRAUL[employer] II-XII intact, nl mental status, nl speech, nl strength Skin: nl turgor, No rash or lesions Lymph: nl lymph nodes Results Result Diagram: 05/07/17 0640 05/07/17 0640 Results 24 hrs Laboratory Tests Test 05/06/17 17:03 05/06/17 20:41 05/07/17 06:40 05/07/17 07:54 Bedside Glucose 175 135 111 White Blood Count 2.9 L Red Blood Count 5.21 Hemoglobin 17.4 Hematocrit 52.9 H Mean Corpuscular Volume 101.5 H Mean Corpuscular Hemoglobin 33.4 H Mean Corpuscular Hemoglobin Concent 32.9 Red Cell Distribution Width 12.6 Platelet Count 147 Mean Platelet Volume 10.8 H Neutrophils % 51.2 Lymphocytes % 27.6 Monocytes % 17.8 H Eosinophils % 2.8 Basophils % 0.3 Nucleated Red Blood Cells % 0.0 Neutrophils # 1.5 L Lymphocytes # 0.8 Monocytes # 0.5 Eosinophils # 0.1 Basophils # 0.0 Nucleated Red Blood Cells # 0.0 Sodium Level 142 Potassium Level 5.1 Chloride Level 101 Carbon Dioxide Level 24 Anion Gap 22 H Blood Urea Nitrogen 13 Creatinine 1.21 Glucose Level 128 Calcium Level 11.3 H Medications Medications Current Medications Clonidine (Catapres) 0.1 mg Q4H PRN PO ELEVATED BLOOD PRESSURE>150 Last administered on 05/04/17 12:11; Admin Dose 0.1 MG; Start 05/03/17 at 20:00 Acetaminophen/ Hydrocodone Bitart ([place] (5/325)) 1 tab Q6H PRN PO PAIN Last administered on 05/06/17 20:45; Admin Dose 1 TAB; Start 05/03/17 at 20:00 Mycophenolate Sodium (Myfortic) 540 mg BID PO Last administered on 05/07/17 08: 42; Admin Dose 540 MG; Start 05/03/17 at 21:00 Nifedipine (Procardia Xl) 30 mg DAILY PO Last administered on 05/07/17 08:43; Admin Dose 30 MG; Start 05/04/17 at 09:00 Prednisone (Prednisone) 5 mg DAILY PO Last administered on 05/07/17 08:43; Admin Dose 5 MG; Start 05/04/17 at 09:00 Acetaminophen (Tylenol Tab) 650 mg Q6 PRN PO FEVER GREATER THAN 100.6; Start at 20:00 Diagnostic Test (Pha) (Accu-Chek) 1 ea 02 XX Last administered on 05/04/17 02: 00; Admin Dose 1 EA; Start 05/04/17 at 02:00 Miscellaneous Information 1 ea NOTE XX ; Start 05/03/17 at 22:00 Glucose (Glutose) 15 gm Q15M PRN PO DECREASED GLUCOSE; Start 05/03/17 at 22:00 Glucose (Glutose) 22.5 gm Q15M PRN PO DECREASED GLUCOSE; Start 05/03/17 at 22:00 Dextrose (D50w Syringe) 25 ml Q15M PRN IV DECREASED GLUCOSE; Start 05/03/17 at 22:00 Dextrose (D50w Syringe) 50 ml Q15M PRN IV DECREASED GLUCOSE; Start 05/03/17 at 22:00 Glucagon (Glucagen) 1 mg Q15M PRN IM DECREASED GLUCOSE; Start 05/03/17 at 22:00 Glucose (Glutose) 15 gm Q15M PRN BUCCAL DECREASED GLUCOSE; Start 05/03/17 at 22: 00 Tacrolimus (Prograf) 3 mg BID PO Last administered on 05/07/17 08:42; Admin Dose 3 MG; Start 05/03/17 at 22:30 Metoprolol Tartrate (Lopressor) 25 mg BID PO Last administered on 05/07/17 08: 43; Admin Dose 25 MG; Start 05/04/17 at 21:00 Acetaminophen/ Hydrocodone Bitart ([place] (5/325)) 1 tab Q6H PRN PO PAIN Last administered on 05/06/17 16:43; Admin Dose 1 TAB; Start 05/05/17 at 00:00 Morphine Sulfate (morphine) 2 mg Q6 PRN IV PAIN LEVEL 7-10 Last administered on 05/07/17 08:44; Admin Dose 2 MG; Start 05/04/17 at 19:30 Ondansetron HCl (Zofran Inj) 4 mg Q6H PRN IV NAUSEA AND/OR VOMITING; Start 05/04 at 19:30 Insulin Glargine (Lantus) 10 unit QAM@08 SC Last administered on 05/07/17 07:57 ; Admin Dose 10 UNIT; Start 05/05/17 at 08:30 UCHE ZEPEDA MD May 07, 2017 12:29
--- NOTE | 2017-05-07 12:35 | CONS ---
Date/Time of Note Date/Time of Note DATE: 05/07/17 TIME: 12:33 Assessment/Plan Assessment/Plan Chief Complaint/Hosp Course 56-year-old male with past history of hypertension, diabetes, kidney transplant in 2009 is admitted for abdominal pain and vomiting x 1 day Per patient his creatinine was 1.9 and his baseline creatinine is 1.5. He saw his primary doctor last week. Patient stated his antirejection medicines is causing vomiting every time he takes it. pt has been on prograf, prednisone and myfortic pt is not sure about which medication is causing vomiting Problems: Additional Assessment/Plan 1. Acute Kidney injury due to prerenal azotemia 2. 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 H/o Kidney transplant in 2009 - now on Prograf, myfortic and prednisone 4. abdominal pain 5. hypercalemia due to steroids Plan: Continue prograf 3 mg BID, prednisone 5 mg daily and myfortic 540mg BID cr imrpoved to normal, monitor Ca, will give NS at 100 cc/hr x 2 liter then follow up on calcium will follow up Consultation Date/Type/Reason Admit Date/Time May 03, 2017 at 20:05 Initial Consult Date 05/04/17 Type of Consultation: NEPHROLOGY Reason for Consultation kidney transplant, Hypercalcemia Referring Provider: LUPE KAPLAN MD 24 HR Interval Summary Free Text/Dictation stable, no complaints Exam/Review of Systems Vital Signs Vitals Vital Signs Date Time Temp Pulse Resp B/P Pulse Ox O2 Delivery O2 Flow Rate FiO2 05/07/17 11:40 98.1 64 17 119/76 100 05/04/17 16:00 Room Air Intake and Output 05/06/17 05/06/17 05/07/17 15:00 23:00 07:00 Intake Total 400 ml 200 ml Output Total 1400 ml 1100 ml Balance -1000 ml -900 ml Exam Constitutional: alert, oriented, well developed Psych: nl mood/affect, no complaints Head: atraumatic, normocephalic Eyes: EOMI, nl conjunctiva, nl lids, nl sclera ENMT: mucosa pink and moist, nl external ears & nose, nl lips & teeth, nl nasal mucosa & septum Neck: non-tender, supple Respiratory: clear to auscultation, normal air movement Cardiovascular: nl pulses, regular rate and rhythm Gastrointestinal: bowel sounds, non-tender, soft RLQ renal allograft in place, no bruit, no thrill Results Result Diagram: 05/07/17 0640 05/07/17 0640 Results 24 hrs Laboratory Tests Test 05/06/17 17:03 05/06/17 20:41 05/07/17 06:40 05/07/17 07:54 Bedside Glucose 175 135 111 White Blood Count 2.9 L Red Blood Count 5.21 Hemoglobin 17.4 Hematocrit 52.9 H Mean Corpuscular Volume 101.5 H Mean Corpuscular Hemoglobin 33.4 H Mean Corpuscular Hemoglobin Concent 32.9 Red Cell Distribution Width 12.6 Platelet Count 147 Mean Platelet Volume 10.8 H Neutrophils % 51.2 Lymphocytes % 27.6 Monocytes % 17.8 H Eosinophils % 2.8 Basophils % 0.3 Nucleated Red Blood Cells % 0.0 Neutrophils # 1.5 L Lymphocytes # 0.8 Monocytes # 0.5 Eosinophils # 0.1 Basophils # 0.0 Nucleated Red Blood Cells # 0.0 Sodium Level 142 Potassium Level 5.1 Chloride Level 101 Carbon Dioxide Level 24 Anion Gap 22 H Blood Urea Nitrogen 13 Creatinine 1.21 Glucose Level 128 Calcium Level 11.3 H Medications Medications Current Medications Clonidine (Catapres) 0.1 mg Q4H PRN PO ELEVATED BLOOD PRESSURE>150 Last administered on 05/04/17 12:11; Admin Dose 0.1 MG; Start 05/03/17 at 20:00 Acetaminophen/ Hydrocodone Bitart ([place] (5/325)) 1 tab Q6H PRN PO PAIN Last administered on 05/06/17 20:45; Admin Dose 1 TAB; Start 05/03/17 at 20:00 Mycophenolate Sodium (Myfortic) 540 mg BID PO Last administered on 05/07/17 08: 42; Admin Dose 540 MG; Start 05/03/17 at 21:00 Nifedipine (Procardia Xl) 30 mg DAILY PO Last administered on 05/07/17 08:43; Admin Dose 30 MG; Start 05/04/17 at 09:00 Prednisone (Prednisone) 5 mg DAILY PO Last administered on 05/07/17 08:43; Admin Dose 5 MG; Start 05/04/17 at 09:00 Acetaminophen (Tylenol Tab) 650 mg Q6 PRN PO FEVER GREATER THAN 100.6; Start at 20:00 Diagnostic Test (Pha) (Accu-Chek) 1 ea 02 XX Last administered on 05/04/17 02: 00; Admin Dose 1 EA; Start 05/04/17 at 02:00 Miscellaneous Information 1 ea NOTE XX ; Start 05/03/17 at 22:00 Glucose (Glutose) 15 gm Q15M PRN PO DECREASED GLUCOSE; Start 05/03/17 at 22:00 Glucose (Glutose) 22.5 gm Q15M PRN PO DECREASED GLUCOSE; Start 05/03/17 at 22:00 Dextrose (D50w Syringe) 25 ml Q15M PRN IV DECREASED GLUCOSE; Start 05/03/17 at 22:00 Dextrose (D50w Syringe) 50 ml Q15M PRN IV DECREASED GLUCOSE; Start 05/03/17 at 22:00 Glucagon (Glucagen) 1 mg Q15M PRN IM DECREASED GLUCOSE; Start 05/03/17 at 22:00 Glucose (Glutose) 15 gm Q15M PRN BUCCAL DECREASED GLUCOSE; Start 05/03/17 at 22: 00 Tacrolimus (Prograf) 3 mg BID PO Last administered on 05/07/17 08:42; Admin Dose 3 MG; Start 05/03/17 at 22:30 Metoprolol Tartrate (Lopressor) 25 mg BID PO Last administered on 05/07/17 08: 43; Admin Dose 25 MG; Start 05/04/17 at 21:00 Acetaminophen/ Hydrocodone Bitart ([place] (5/325)) 1 tab Q6H PRN PO PAIN Last administered on 05/06/17 16:43; Admin Dose 1 TAB; Start 05/05/17 at 00:00 Morphine Sulfate (morphine) 2 mg Q6 PRN IV PAIN LEVEL 7-10 Last administered on 05/07/17 08:44; Admin Dose 2 MG; Start 05/04/17 at 19:30 Ondansetron HCl (Zofran Inj) 4 mg Q6H PRN IV NAUSEA AND/OR VOMITING; Start 05/04 at 19:30 Insulin Glargine (Lantus) 10 unit QAM@08 SC Last administered on 05/07/17 07:57 ; Admin Dose 10 UNIT; Start 05/05/17 at 08:30 SHAKA SIMPSON MD May 07, 2017 12:35
[2017-05-07] MEDS: SOD CHLORIDE 0.9% 1,000 ML IV SCH ×2 (14:21→23:00)
[2017-05-07 16:03] VITALS: BP 129/79; RESP 18
[2017-05-07 16:56] VITALS: BP 122/80; PULSE 60; RESP 18
[2017-05-07 20:31] VITALS: BP 115/68; RESP 19
[2017-05-07] MEDS: HYDROCODONE/APAP (5/325) TAB PO PRN (21:14)
[2017-05-08] MEDS: ACCUCHECK AT 2AM (Patients on SS coverage) XX SCH ×2 (02:00→23:48)
[2017-05-08 02:07] VITALS: BP 126/74; RESP 19
[2017-05-08] MEDS: SOD CHLORIDE 0.9% 1,000 ML IV SCH ×2 (05:16→18:16)
[2017-05-08] MEDS: HYDROCODONE/APAP (5/325) TAB PO PRN ×3 (06:05→18:15)
[2017-05-08 06:14] LABS: ADD SCAN DIFF NO
[2017-05-08 06:20] LABS: BASOPHILS % 0.9 % (0.0-2.0); EOSINOPHILS # 0.1 10^3/ul (0.0-0.5); EOSINOPHILS % 1.8 % (0.0-7.0); HEMATOCRIT 52.2 % (42.0-52.0); HEMOGLOBIN 17.3 g/dl (14.0-18.0); LYMPHOCYTES # 1.1 10^3/ul (0.8-2.9); LYMPHOCYTES % 33.4 % (15.0-51.0); MEAN CORPUSCULAR HEMOGLOBIN 33.8 pg (29.0-33.0); MEAN CORPUSCULAR HGB CONC 33.1 g/dl (32.0-37.0); MEAN PLATELET VOLUME 11.1 fl (7.4-10.4); MONOCYTE # 0.5 10^3/ul (0.3-0.9); MONOCYTES % 15.8 % (0.0-11.0); NEUTROPHIL # 1.6 10^3/ul (1.6-7.5); NEUTROPHILS % 47.8 % (39.0-77.0); PLATELET COUNT 149 10^3/UL (140-415); RED BLOOD COUNT 5.12 10^6/ul (4.70-6.10); RED CELL DISTRIBUTION WIDTH 12.6 % (11.5-14.5); WHITE BLOOD COUNT 3.4 10^3/ul (4.8-10.8)
[2017-05-08 07:20] LABS: CALCIUM 11.1 mg/dl (8.4-10.2); CREATININE 1.26 mg/dl (0.61-1.24); POTASSIUM 4.3 mmol/L (3.5-5.1)
[2017-05-08] MEDS: INSULIN ASPART [NOVOLOG] 3 ML PEN SC SCH ×4 (08:00→20:47)
[2017-05-08 08:13] VITALS: BP 127/77; RESP 20
[2017-05-08] MEDS: METOPROLOL 25 MG TAB PO SCH ×2 (08:35→20:49)
[2017-05-08] MEDS: predniSONE 5 MG TAB PO SCH (08:36)
[2017-05-08] MEDS: MYCOPHENOLATE (SR) 180 MG TAB PO SCH ×2 (08:36→20:49)
[2017-05-08] MEDS: TACROLIMUS 0.5 MG CAP PO SCH ×2 (08:36→20:50)
[2017-05-08] MEDS: NIFEdipine (XL) 30 MG TAB PO SCH (08:36)
[2017-05-08] MEDS: INSULIN GLARGINE [LANtus] 3 ML PEN SC SCH (08:38)
[2017-05-08 14:14] VITALS: BP 129/77; RESP 20
--- NOTE | 2017-05-08 16:09 | PN ---
Date/Time of Note Date/Time of Note DATE: 05/08/17 TIME: 15:59 Assessment/Plan VTE Prophylaxis VTE Prophylaxis Intervention: other Lines/Catheters [facility]from [facility] Saline Lock Urinary Cath still in place: No Assessment/Plan Assessment/Plan Patient with gradually increased calcium, will discuss with nephrology regarding IV fluids, patient denies any nausea vomiting, creatinine returned to normal value. Assessment/Plan -Intractable nausea and vomiting on admission, currently resolved -Abdominal pain -Possible pancreatitis -HCV positive -Acute kidney injury -History of kidney transplant in 2009, continue Prograf Myfortic and prednisone -Diabetes mellitus, continue Lantus and NovoLog -Hypertension, continue metoprolol. Further recommendations based on clinical course. Plan of care discussed with Dr. Maier. Subjective 24 Hr Interval Summary Free Text/Dictation nc/o abdominal pain- gi follows ambulates well- afebrile, no NVD reporesd Respiratory: no complaints Cardiovascular: no complaints Gastrointestinal: pain Genitourinary: no complaints Musculoskeletal: no complaints Exam/Review of Systems Vital Signs Vitals Vital Signs Date Time Temp Pulse Resp B/P Pulse Ox O2 Delivery O2 Flow Rate FiO2 05/08/17 14:14 97.9 75 20 129/77 98 05/07/17 16:56 Room Air Intake and Output 05/07/17 05/07/17 05/08/17 14:59 22:59 06:59 Intake Total 880 ml 1300 ml Balance 880 ml 1300 ml Exam Constitutional: alert, oriented, well developed Respiratory: clear to auscultation, normal air movement Cardiovascular: nl pulses, regular rate and rhythm Gastrointestinal: non-tender, soft 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: nl mental status, nl speech Results Result Diagram: 05/08/17 0520 05/08/17 0520 Results 24 hrs Laboratory Tests Test 05/07/17 16:52 05/07/17 21:20 05/07/17 22:38 05/08/17 05:20 Bedside Glucose 131 157 123 White Blood Count 3.4 L Red Blood Count 5.12 Hemoglobin 17.3 Hematocrit 52.2 H Mean Corpuscular Volume 102.0 H Mean Corpuscular Hemoglobin 33.8 H Mean Corpuscular Hemoglobin Concent 33.1 Red Cell Distribution Width 12.6 Platelet Count 149 Mean Platelet Volume 11.1 H Neutrophils % 47.8 Lymphocytes % 33.4 Monocytes % 15.8 H Eosinophils % 1.8 Basophils % 0.9 Nucleated Red Blood Cells % 0.0 Neutrophils # 1.6 Lymphocytes # 1.1 Monocytes # 0.5 Eosinophils # 0.1 Basophils # 0.0 Nucleated Red Blood Cells # 0.0 Sodium Level 141 Potassium Level 4.3 Chloride Level 101 Carbon Dioxide Level 23 Anion Gap 21 H Blood Urea Nitrogen 17 Creatinine 1.26 H Glucose Level 97 Calcium Level 11.1 H Test 05/08/17 07:50 05/08/17 11:34 Bedside Glucose 96 96 Medications Medications Current Medications Clonidine (Catapres) 0.1 mg Q4H PRN PO ELEVATED BLOOD PRESSURE>150 Last administered on 05/04/17 12:11; Admin Dose 0.1 MG; Start 05/03/17 at 20:00 Acetaminophen/ Hydrocodone Bitart ([place] (5/325)) 1 tab Q6H PRN PO PAIN Last administered on 05/07/17 21:14; Admin Dose 1 TAB; Start 05/03/17 at 20:00 Mycophenolate Sodium (Myfortic) 540 mg BID PO Last administered on 05/08/17 08: 36; Admin Dose 540 MG; Start 05/03/17 at 21:00 Nifedipine (Procardia Xl) 30 mg DAILY PO Last administered on 05/08/17 08:36; Admin Dose 30 MG; Start 05/04/17 at 09:00 Prednisone (Prednisone) 5 mg DAILY PO Last administered on 05/08/17 08:36; Admin Dose 5 MG; Start 05/04/17 at 09:00 Acetaminophen (Tylenol Tab) 650 mg Q6 PRN PO FEVER GREATER THAN 100.6; Start at 20:00 Diagnostic Test (Pha) (Accu-Chek) 1 ea 02 XX Last administered on 05/04/17 02: 00; Admin Dose 1 EA; Start 05/04/17 at 02:00 Miscellaneous Information 1 ea NOTE XX ; Start 05/03/17 at 22:00 Glucose (Glutose) 15 gm Q15M PRN PO DECREASED GLUCOSE; Start 05/03/17 at 22:00 Glucose (Glutose) 22.5 gm Q15M PRN PO DECREASED GLUCOSE; Start 05/03/17 at 22:00 Dextrose (D50w Syringe) 25 ml Q15M PRN IV DECREASED GLUCOSE; Start 05/03/17 at 22:00 Dextrose (D50w Syringe) 50 ml Q15M PRN IV DECREASED GLUCOSE; Start 05/03/17 at 22:00 Glucagon (Glucagen) 1 mg Q15M PRN IM DECREASED GLUCOSE; Start 05/03/17 at 22:00 Glucose (Glutose) 15 gm Q15M PRN BUCCAL DECREASED GLUCOSE; Start 05/03/17 at 22: 00 Tacrolimus (Prograf) 3 mg BID PO Last administered on 05/08/17 08:36; Admin Dose 3 MG; Start 05/03/17 at 22:30 Metoprolol Tartrate (Lopressor) 25 mg BID PO Last administered on 05/08/17 08: 35; Admin Dose 25 MG; Start 05/04/17 at 21:00 Acetaminophen/ Hydrocodone Bitart ([place] (5/325)) 1 tab Q6H PRN PO PAIN Last administered on 05/08/17 11:55; Admin Dose 1 TAB; Start 05/05/17 at 00:00 Morphine Sulfate (morphine) 2 mg Q6 PRN IV PAIN LEVEL 7-10 Last administered on 05/07/17 16:40; Admin Dose 2 MG; Start 05/04/17 at 19:30 Ondansetron HCl (Zofran Inj) 4 mg Q6H PRN IV NAUSEA AND/OR VOMITING; Start 05/04 at 19:30 Insulin Glargine 10 unit 10 unit QAM@08 SC Last administered on 05/08/17 08:38 ; Admin Dose 10 UNIT; Start 05/05/17 at 08:30 Sodium Chloride (NS) 1,000 ml @ 100 mls/hr Q10H IV Last administered on 05:16; Admin Dose 100 MLS/HR; Start 05/07/17 at 13:00 EILEEN COBURN May 08, 2017 16:09
--- NOTE | 2017-05-08 17:06 | CONS ---
Date/Time of Note Date/Time of Note DATE: 05/08/17 TIME: 17:05 Assessment/Plan Assessment/Plan Chief Complaint/Hosp Course 56-year-old male with past history of hypertension, diabetes, kidney transplant in 2009 is admitted for abdominal pain and vomiting x 1 day Per patient his creatinine was 1.9 and his baseline creatinine is 1.5. He saw his primary doctor last week. Patient stated his antirejection medicines is causing vomiting every time he takes it. pt has been on prograf, prednisone and myfortic pt is not sure about which medication is causing vomiting Problems: Additional Assessment/Plan Additional Assessment/Plan 1. Acute Kidney injury due to prerenal azotemia 2. 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 H/o Kidney transplant in 2009 - now on Prograf, myfortic and prednisone 4. abdominal pain 5. hypercalemia due to steroids Plan: Continue prograf 3 mg BID, prednisone 5 mg daily and myfortic 540mg BID cr imrpoved to normal, monitor Ca, s/p 1 lite rNS, Now Ca 11.1 will follow up Consultation Date/Type/Reason Admit Date/Time May 03, 2017 at 20:05 Initial Consult Date 05/04/17 Type of Consultation: NEPHROLOGY Referring Provider: LUPE KAPLAN MD 24 HR Interval Summary Free Text/Dictation doing ok, BP stable, afebrile, Cr 1.26, Ca 11.1 Exam/Review of Systems Vital Signs Vitals Vital Signs Date Time Temp Pulse Resp B/P Pulse Ox O2 Delivery O2 Flow Rate FiO2 05/08/17 14:14 97.9 75 20 129/77 98 05/07/17 16:56 Room Air Intake and Output 05/07/17 05/07/17 05/08/17 15:00 23:00 07:00 Intake Total 880 ml 1300 ml Balance 880 ml 1300 ml Exam Constitutional: alert, oriented, well developed Psych: nl mood/affect, no complaints Head: atraumatic, normocephalic Eyes: EOMI, nl conjunctiva, nl lids, nl sclera ENMT: mucosa pink and moist, nl external ears & nose, nl lips & teeth, nl nasal mucosa & septum Neck: non-tender, supple Respiratory: clear to auscultation, normal air movement Cardiovascular: nl pulses, regular rate and rhythm Gastrointestinal: bowel sounds, non-tender, soft RLQ renal allograft in place, no bruit, no thrill Results Result Diagram: 05/08/17 0520 05/08/17 0520 Results 24 hrs Laboratory Tests Test 05/07/17 21:20 05/07/17 22:38 05/08/17 05:20 05/08/17 07:50 Bedside Glucose 157 123 96 White Blood Count 3.4 L Red Blood Count 5.12 Hemoglobin 17.3 Hematocrit 52.2 H Mean Corpuscular Volume 102.0 H Mean Corpuscular Hemoglobin 33.8 H Mean Corpuscular Hemoglobin Concent 33.1 Red Cell Distribution Width 12.6 Platelet Count 149 Mean Platelet Volume 11.1 H Neutrophils % 47.8 Lymphocytes % 33.4 Monocytes % 15.8 H Eosinophils % 1.8 Basophils % 0.9 Nucleated Red Blood Cells % 0.0 Neutrophils # 1.6 Lymphocytes # 1.1 Monocytes # 0.5 Eosinophils # 0.1 Basophils # 0.0 Nucleated Red Blood Cells # 0.0 Sodium Level 141 Potassium Level 4.3 Chloride Level 101 Carbon Dioxide Level 23 Anion Gap 21 H Blood Urea Nitrogen 17 Creatinine 1.26 H Glucose Level 97 Calcium Level 11.1 H Test 05/08/17 11:34 Bedside Glucose 96 Medications Medications Current Medications Clonidine (Catapres) 0.1 mg Q4H PRN PO ELEVATED BLOOD PRESSURE>150 Last administered on 05/04/17 12:11; Admin Dose 0.1 MG; Start 05/03/17 at 20:00 Acetaminophen/ Hydrocodone Bitart ([place] (5/325)) 1 tab Q6H PRN PO PAIN Last administered on 05/07/17 21:14; Admin Dose 1 TAB; Start 05/03/17 at 20:00 Mycophenolate Sodium (Myfortic) 540 mg BID PO Last administered on 05/08/17 08: 36; Admin Dose 540 MG; Start 05/03/17 at 21:00 Nifedipine (Procardia Xl) 30 mg DAILY PO Last administered on 05/08/17 08:36; Admin Dose 30 MG; Start 05/04/17 at 09:00 Prednisone (Prednisone) 5 mg DAILY PO Last administered on 05/08/17 08:36; Admin Dose 5 MG; Start 05/04/17 at 09:00 Acetaminophen (Tylenol Tab) 650 mg Q6 PRN PO FEVER GREATER THAN 100.6; Start at 20:00 Diagnostic Test (Pha) (Accu-Chek) 1 ea 02 XX Last administered on 05/04/17 02: 00; Admin Dose 1 EA; Start 05/04/17 at 02:00 Miscellaneous Information 1 ea NOTE XX ; Start 05/03/17 at 22:00 Glucose (Glutose) 15 gm Q15M PRN PO DECREASED GLUCOSE; Start 05/03/17 at 22:00 Glucose (Glutose) 22.5 gm Q15M PRN PO DECREASED GLUCOSE; Start 05/03/17 at 22:00 Dextrose (D50w Syringe) 25 ml Q15M PRN IV DECREASED GLUCOSE; Start 05/03/17 at 22:00 Dextrose (D50w Syringe) 50 ml Q15M PRN IV DECREASED GLUCOSE; Start 05/03/17 at 22:00 Glucagon (Glucagen) 1 mg Q15M PRN IM DECREASED GLUCOSE; Start 05/03/17 at 22:00 Glucose (Glutose) 15 gm Q15M PRN BUCCAL DECREASED GLUCOSE; Start 05/03/17 at 22: 00 Tacrolimus (Prograf) 3 mg BID PO Last administered on 05/08/17 08:36; Admin Dose 3 MG; Start 05/03/17 at 22:30 Metoprolol Tartrate (Lopressor) 25 mg BID PO Last administered on 05/08/17 08: 35; Admin Dose 25 MG; Start 05/04/17 at 21:00 Acetaminophen/ Hydrocodone Bitart ([place] (5/325)) 1 tab Q6H PRN PO PAIN Last administered on 05/08/17 11:55; Admin Dose 1 TAB; Start 05/05/17 at 00:00 Morphine Sulfate (morphine) 2 mg Q6 PRN IV PAIN LEVEL 7-10 Last administered on 05/07/17 16:40; Admin Dose 2 MG; Start 05/04/17 at 19:30 Ondansetron HCl (Zofran Inj) 4 mg Q6H PRN IV NAUSEA AND/OR VOMITING; Start 05/04 at 19:30 Insulin Glargine 10 unit 10 unit QAM@08 SC Last administered on 05/08/17 08:38 ; Admin Dose 10 UNIT; Start 05/05/17 at 08:30 Sodium Chloride (NS) 1,000 ml @ 100 mls/hr Q10H IV Last administered on 05:16; Admin Dose 100 MLS/HR; Start 05/07/17 at 13:00 SHAKA SIMPSON MD May 08, 2017 17:06
[2017-05-08 20:06] VITALS: BP 145/89; RESP 18
--- NOTE | 2017-05-08 20:44 | CONS ---
Date/Time of Note Date/Time of Note DATE: 05/08/17 TIME: 20:44 Assessment/Plan Assessment/Plan Additional Assessment/Plan Impression: 1. pancreatitis with elevated lipase: symptomatically improved. amylase and lipase normalized. 2. elevated transaminases 3. macrocytic anemia 4. HCV positive 5. Diabetes mellitus 6. Renal transplant Plan Continue with PPI If emesis persist then we will start the patient on Reglan. Consultation Date/Type/Reason Admit Date/Time May 03, 2017 at 20:05 Initial Consult Date 05/04/17 Type of Consultation: NEPHROLOGY Referring Provider: LUPE KAPLAN MD 24 HR Interval Summary Constitutional: improved, no complaints Exam/Review of Systems Vital Signs Vitals Vital Signs Date Time Temp Pulse Resp B/P Pulse Ox O2 Delivery O2 Flow Rate FiO2 05/08/17 20:06 98.2 75 18 145/89 99 05/07/17 16:56 Room Air Intake and Output 05/07/17 05/07/17 05/08/17 15:00 23:00 07:00 Intake Total 880 ml 1300 ml Balance 880 ml 1300 ml Exam Constitutional: alert, oriented, well developed Psych: nl mood/affect, no complaints Head: atraumatic, normocephalic Eyes: EOMI, PERRL, nl conjunctiva, nl lids, nl sclera ENMT: nl external ears & nose, nl lips & teeth, nl nasal mucosa & septum Neck: non-tender, supple Respiratory: clear to auscultation, normal air movement Cardiovascular: nl pulses, regular rate and rhythm Gastrointestinal: nl liver, spleen, non-tender, soft Musculoskeletal: nl extremities to inspection, nl gait and stance Extremities: normal pulses 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: MIXER RUNNER II-XII intact, nl mental status, nl speech, nl strength Skin: nl turgor, No rash or lesions Lymph: nl lymph nodes Results Result Diagram: 05/08/17 0520 05/08/17 0520 Results 24 hrs Laboratory Tests Test 05/07/17 21:20 05/07/17 22:38 05/08/17 05:20 05/08/17 07:50 Bedside Glucose 157 123 96 White Blood Count 3.4 L Red Blood Count 5.12 Hemoglobin 17.3 Hematocrit 52.2 H Mean Corpuscular Volume 102.0 H Mean Corpuscular Hemoglobin 33.8 H Mean Corpuscular Hemoglobin Concent 33.1 Red Cell Distribution Width 12.6 Platelet Count 149 Mean Platelet Volume 11.1 H Neutrophils % 47.8 Lymphocytes % 33.4 Monocytes % 15.8 H Eosinophils % 1.8 Basophils % 0.9 Nucleated Red Blood Cells % 0.0 Neutrophils # 1.6 Lymphocytes # 1.1 Monocytes # 0.5 Eosinophils # 0.1 Basophils # 0.0 Nucleated Red Blood Cells # 0.0 Sodium Level 141 Potassium Level 4.3 Chloride Level 101 Carbon Dioxide Level 23 Anion Gap 21 H Blood Urea Nitrogen 17 Creatinine 1.26 H Glucose Level 97 Calcium Level 11.1 H Test 05/08/17 11:34 05/08/17 17:12 Bedside Glucose 96 162 Medications Medications Current Medications Clonidine (Catapres) 0.1 mg Q4H PRN PO ELEVATED BLOOD PRESSURE>150 Last administered on 05/04/17 12:11; Admin Dose 0.1 MG; Start 05/03/17 at 20:00 Acetaminophen/ Hydrocodone Bitart ([place] (5/325)) 1 tab Q6H PRN PO PAIN Last administered on 05/07/17 21:14; Admin Dose 1 TAB; Start 05/03/17 at 20:00 Mycophenolate Sodium (Myfortic) 540 mg BID PO Last administered on 05/08/17 08: 36; Admin Dose 540 MG; Start 05/03/17 at 21:00 Nifedipine (Procardia Xl) 30 mg DAILY PO Last administered on 05/08/17 08:36; Admin Dose 30 MG; Start 05/04/17 at 09:00 Prednisone (Prednisone) 5 mg DAILY PO Last administered on 05/08/17 08:36; Admin Dose 5 MG; Start 05/04/17 at 09:00 Acetaminophen (Tylenol Tab) 650 mg Q6 PRN PO FEVER GREATER THAN 100.6; Start at 20:00 Diagnostic Test (Pha) (Accu-Chek) 1 ea 02 XX Last administered on 05/04/17 02: 00; Admin Dose 1 EA; Start 05/04/17 at 02:00 Miscellaneous Information 1 ea NOTE XX ; Start 05/03/17 at 22:00 Glucose (Glutose) 15 gm Q15M PRN PO DECREASED GLUCOSE; Start 05/03/17 at 22:00 Glucose (Glutose) 22.5 gm Q15M PRN PO DECREASED GLUCOSE; Start 05/03/17 at 22:00 Dextrose (D50w Syringe) 25 ml Q15M PRN IV DECREASED GLUCOSE; Start 05/03/17 at 22:00 Dextrose (D50w Syringe) 50 ml Q15M PRN IV DECREASED GLUCOSE; Start 05/03/17 at 22:00 Glucagon (Glucagen) 1 mg Q15M PRN IM DECREASED GLUCOSE; Start 05/03/17 at 22:00 Glucose (Glutose) 15 gm Q15M PRN BUCCAL DECREASED GLUCOSE; Start 05/03/17 at 22: 00 Tacrolimus (Prograf) 3 mg BID PO Last administered on 05/08/17 08:36; Admin Dose 3 MG; Start 05/03/17 at 22:30 Metoprolol Tartrate (Lopressor) 25 mg BID PO Last administered on 05/08/17 08: 35; Admin Dose 25 MG; Start 05/04/17 at 21:00 Acetaminophen/ Hydrocodone Bitart ([place] (5/325)) 1 tab Q6H PRN PO PAIN Last administered on 05/08/17 18:15; Admin Dose 1 TAB; Start 05/05/17 at 00:00 Morphine Sulfate (morphine) 2 mg Q6 PRN IV PAIN LEVEL 7-10 Last administered on 05/07/17 16:40; Admin Dose 2 MG; Start 05/04/17 at 19:30 Ondansetron HCl (Zofran Inj) 4 mg Q6H PRN IV NAUSEA AND/OR VOMITING; Start 05/04 at 19:30 Insulin Glargine 10 unit 10 unit QAM@08 SC Last administered on 05/08/17 08:38 ; Admin Dose 10 UNIT; Start 05/05/17 at 08:30 Sodium Chloride (NS) 1,000 ml @ 100 mls/hr Q10H IV Last administered on 18:16; Admin Dose 100 MLS/HR; Start 05/07/17 at 13:00 UCHE ZEPEDA MD May 08, 2017 20:44
[2017-05-09] MEDS: HYDROCODONE/APAP (5/325) TAB PO PRN ×2 (02:09→08:35)
[2017-05-09 02:12] VITALS: BP 159/86; PULSE 72; RESP 18
[2017-05-09 02:51] VITALS: BP 135/96; RESP 19
[2017-05-09] MEDS: INSULIN ASPART [NOVOLOG] 3 ML PEN SC SCH ×2 (08:00→12:22)
[2017-05-09 08:03] VITALS: BP 152/90; RESP 17
[2017-05-09] MEDS: INSULIN GLARGINE [LANtus] 3 ML PEN SC SCH (08:32)
[2017-05-09] MEDS: TACROLIMUS 0.5 MG CAP PO SCH (08:35)
[2017-05-09] MEDS: MYCOPHENOLATE (SR) 180 MG TAB PO SCH (08:35)
[2017-05-09] MEDS: METOPROLOL 25 MG TAB PO SCH (08:36)
[2017-05-09] MEDS: NIFEdipine (XL) 30 MG TAB PO SCH (08:36)
[2017-05-09] MEDS: predniSONE 5 MG TAB PO SCH (08:36)
[2017-05-09] MEDS ORDERED: HYDR-906 PO (11:47)
[2017-05-09] MEDS ORDERED: PRED5 PO (11:47)
[2017-05-09] MEDS ORDERED: FAMO20TA18 PO (11:47)
[2017-05-09] MEDS ORDERED: TACR0.5C18 PO (11:47)
[2017-05-09] MEDS ORDERED: MYCO160 PO (11:47)
[2017-05-09 14:36] VITALS: BP 126/70; RESP 18
--- NOTE | 2017-05-09 17:13 | DS ---
Date/Time of Note Date/Time of Note DATE: 05/09/17 TIME: 17:11 Discharge Summary Admission/Discharge Info Admit Date/Time May 03, 2017 at 20:05 Discharge Date/Time May 09, 2017 at 15:30 Discharge Diagnosis -Intractable nausea and vomiting on admission, currently resolved -Abdominal pain -Possible pancreatitis -HCV positive -Acute kidney injury -History of kidney transplant in 2009 -Diabetes mellitus -Hypertension Patient Condition: Good Hx of Present Illness Patient is a 56-year-old male with past history of hypertension, diabetes, kidney transplant in 2009 is admitted for abdominal pain and vomiting x 1 day Per patient his creatinine was 1.9 and his baseline creatinine is 1.5. He saw his primary doctor last week. Patient stated his antirejection medicines is causing vomiting every time he takes it. He said that his primary doctor is Dr. Lange.Patient is admitted under Dr Maier for further evaluation and treatment. Hospital Course -Intractable nausea and vomiting on admission, currently resolved -Abdominal pain -Possible pancreatitis -HCV positive -Acute kidney injury -History of kidney transplant in 2009, continue Prograf Myfortic and prednisone -Diabetes mellitus, continue Lantus and NovoLog -Hypertension, continue metoprolol. Home Meds Active Scripts Famotidine* (Famotidine*) 20 Mg Tablet, 20 MG PO BID, #60 TAB Prov:LETI RODRIGUEZ 05/09/17 Tacrolimus* (Prograf*) 0.5 Mg Capsule, 3 MG PO BID for 30 Days, CAP Prov:LETI RODRIGUEZ 05/09/17 Prednisone* (Prednisone*) 5 Mg Tab, 5 MG PO DAILY for 30 Days, TAB Prov:LETI RODRIGUEZ 05/09/17 Mycophenolate Sodium* (Myfortic*) 180 Mg Tab, 540 MG PO BID for 30 Days, TAB Prov:LETI RODRIGUEZ 05/09/17 Hydrocodone/Acetaminophen ([place] 5-325 Tablet) 1 Each Tablet, 1 TAB PO Q6H Y for PAIN, #30 TAB Prov:LETI RODRIGUEZ 05/09/17 Nifedipine* (Procardia XL*) 30 Mg/Bottle Tab.osm.24, 30 MG PO DAILY, #30 TAB.SA FOR BP >140 Prov:GONZALO CR NP 04/14/15 Metoprolol Tartrate* (Lopressor*) 50 Mg Tab, 50 MG PO BID, #60 TAB Prov:CRGONZALO Argenis GONZALES 04/14/15 Reported Medications Insulin Glargine* (Lantus*) 100 Unit/Ml Soln, 10 UNIT SC QAM, #1 VIAL 04/28/16 Clonidine Hcl* (Clonidine Hcl*) 0.1 Mg Tab, 0.1 MG PO Q4H Y for ELEVATED BLOOD PRESSURE, TAB PRN FOR SBP>160 06/03/14 Discontinued Reported Medications Tacrolimus* (Tacrolimus*) 0.5 Mg Capsule, 0.5 MG PO QHS, CAP 05/04/17 Mycophenolate Sodium* (Myfortic*) 180 Mg Tab, 540 MG PO BID, TAB 06/03/14 Prednisone (Prednisone) 5 Mg Tablet, 5 MG PO DAILY, 0 Refills 11/26/10 Tacrolimus* (Prograf*) 1 Mg Capsule, 1 MG PO DAILY, 0 Refills 11/26/10 Discontinued Scripts Sulfamethoxazole/Trimethoprim* (Bactrim Ds* Tablet) 1 Each Tablet, 1 TAB PO BID , #14 TAB Prov:JEAN-PIERRE CAMPBELL PA-C 04/11/17 Cephalexin* (Keflex*) 500 Mg Capsule, 500 MG PO QID for 7 Days, CAP Prov:JEAN-PIERRE CAMPBELL PA-C 04/11/17 Cephalexin* (Keflex*) 500 Mg Capsule, 500 MG PO QID for 7 Days, CAP Prov:KAYLIN SAUL MD 02/03/17 Sulfamethoxazole-Trimethoprim* (Bactrim* DS) 800-160 Mg Tab, 1 TAB PO BID for 7 Days, TAB Prov:KAYLIN SAUL MD 02/03/17 Neomycin [place]/Bacitrac Zn/Poly (Triple Antibiotic Ointment) 28 Gm Oint...g., 28 GM TP TID for 7 Days Prov:KAYLIN SAUL MD 02/03/17 Doxycycline Hyclate* (Doxycycline Hyclate*) 100 Mg Tablet.dr, 100 MG PO BID for 10 Days, #20 TAB Prov:KAYLIN SAUL MD 11/14/16 Neomycin [place]/Bacitrac Zn/Poly (Triple Antibiotic Ointment) 28 Gm Oint...g., 28 GM TP BID for 10 Days Prov:KAYLIN SAUL MD 11/14/16 Cephalexin* (Keflex*) 500 Mg Capsule, 500 MG PO QID for 5 Days, CAP Prov:DILLAN FLORES DO 11/06/16 Hydrocodone Bit-Acetaminophen* ([place]*) 5-325 Mg Tab, 1 TAB PO Q4H, #10 TAB Prov:SWAPNILRAYO 04/28/16 Promethazine Hcl* (Phenergan*) 25 Mg Tablet, 25 MG PO Q6H Y for NAUSEA, #14 TAB Prov:SWAPNILRAYOHARRIS OLVERA 04/28/16 Follow-up Plan Follow-up with PMD in 1 to weeks BMP in 1 2 weeks for follow-up with Dr. Chand in 1-2 weeks Primary Care Provider Zeus Lange Time spent on discharge: > 30 minutes Pending Labs Laboratory Tests Test 05/08/17 17:12 05/08/17 20:47 05/09/17 07:52 05/09/17 11:52 Bedside Glucose 162mg/dL (70-220) 127mg/dL (70-220) 98mg/dL (70-220) 217mg/dL (70-220) LETI RODRIGUEZ May 09, 2017 17:12
--- NOTE | 2017-05-09 17:41 | CONS ---
Date/Time of Note Date/Time of Note DATE: 05/09/17 TIME: 17:40 Assessment/Plan Assessment/Plan Additional Assessment/Plan 1. Acute Kidney injury due to prerenal azotemia 2. 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 H/o Kidney transplant in 2009 - now on Prograf, myfortic and prednisone 4. abdominal pain 5. hypercalemia due to steroids Plan: Continue prograf 3 mg BID, prednisone 5 mg daily and myfortic 540mg BID cr imrpoved to normal, monitor Ca, s/p 1 lite rNS, Now Ca 11.1 will follow up Consultation Date/Type/Reason Admit Date/Time May 03, 2017 at 20:05 Initial Consult Date 05/04/17 Type of Consultation: NEPHROLOGY Referring Provider: LUPE KAPLAN MD 24 HR Interval Summary Free Text/Dictation afebrile, BP stable, no complaints, Exam/Review of Systems Vital Signs Vitals Vital Signs Date Time Temp Pulse Resp B/P Pulse Ox O2 Delivery O2 Flow Rate FiO2 05/09/17 14:36 97.9 70 18 126/70 100 05/07/17 16:56 Room Air Intake and Output 05/08/17 05/08/17 05/09/17 15:00 23:00 07:00 Intake Total 560 ml 1440 ml Balance 560 ml 1440 ml Exam Constitutional: alert, oriented, well developed Psych: nl mood/affect, no complaints Head: atraumatic, normocephalic Eyes: EOMI, nl conjunctiva, nl lids, nl sclera ENMT: mucosa pink and moist, nl external ears & nose, nl lips & teeth, nl nasal mucosa & septum Neck: non-tender, supple Respiratory: clear to auscultation, normal air movement Cardiovascular: nl pulses, regular rate and rhythm Gastrointestinal: bowel sounds, non-tender, soft RLQ renal allograft in place, no bruit, no thrill Results Result Diagram: 05/08/17 0520 05/08/17 0520 Results 24 hrs Laboratory Tests Test 05/08/17 20:47 05/09/17 07:52 05/09/17 11:52 Bedside Glucose 127 98 217 SHAKA SIMPSON MD May 09, 2017 17:41
== END 2017-05-09 15:30 | disposition home or self-care (01) | DRG 439 ==
LOC: E/R 18:29 → MS4 20:05 → PP2 05-07 16:23
PROVIDERS: ADMIT Internal Medicine; ATTEND Internal Medicine
DX: K85.90 Acute pancreatitis without necrosis or infection, unspecified (principal); N17.9 Acute kidney failure, unspecified; E11.22 Type 2 diabetes mellitus with diabetic chronic kidney disease; Z94.0 Kidney transplant status; I12.9 Hypertensive chronic kidney disease with stage 1 through stage 4 chronic kidney disease, or unspecified chronic kidney disease; K21.9 Gastro-esophageal reflux disease without esophagitis; D53.9 Nutritional anemia, unspecified; E87.5 Hyperkalemia; N18.9 Chronic kidney disease, unspecified; R74.0 Nonspecific elevation of levels of transaminase and lactic acid dehydrogenase [LDH]; F12.90 Cannabis use, unspecified, uncomplicated; Z87.891 Personal history of nicotine dependence
CPT/HCPCS: 36415; 80048; 80053; 81001; 82150; 82270; 82607; 82746; 82962; 83036; 83690; 84484; 85025; 86704; 86709; 86803; 87340; 93005; 96374; 96375; C9113; J1815; J2270; J2405; J7030; J7120; J7507; J7512

== ENCOUNTER 2017-08-08 13:34 | Inpatient (IN) | payer OTHER ==
[~2017-08-08] VITALS: Ht 172.7 cm; Wt 44.0 kg
[~2017-08-08 13:34] MED LIST changes: -BACTDS PO; -CEPH-443 PO; -DOXY100T20 PO; +FAMO20TA18 PO; -HYDR-3498 PO; -NEOM28OI TP; -PRED-253 PO; +PRED5TAB PO; -PROM25TA14 PO; -SULF1TAB31 PO; +TACR0.5C18 PO; -TACR1CAP26 PO
[2017-08-08] MEDS ORDERED: VANCOMYCIN 1 GM (PMX) 250 ML IVPB ONE (15:00)
[2017-08-08] MEDS: ACETAMINOPHEN 325 MG TAB PO STA ×2 (15:04→15:06)
[2017-08-08] MEDS: PIPER-TAZO 3.375 GM IV (PMX) 100 ML IVPB STA ×2 (15:05→15:37)
[2017-08-08] MEDS ORDERED: ONDANSETRON 4 MG INJ IV STA (15:09)
[2017-08-08] MEDS ORDERED: morphine 4 MG/ML VIAL IV STA (15:09)
[2017-08-08 15:20] LABS: ABNORMAL IP MESSAGE 1; BASOPHILS % 0.6 % (0.0-2.0); EOSINOPHILS % 0.6 % (0.0-7.0); HEMATOCRIT 50.7 % (42.0-52.0); HEMOGLOBIN 16.4 g/dl (14.0-18.0); LYMPHOCYTES # 0.3 10^3/ul (0.8-2.9); LYMPHOCYTES % 7.4 % (15.0-51.0); MEAN CORPUSCULAR HEMOGLOBIN 34.1 pg (29.0-33.0); MEAN CORPUSCULAR HGB CONC 32.3 g/dl (32.0-37.0); MEAN CORPUSCULAR VOLUME 105.4 fl (82.0-101.0); MEAN PLATELET VOLUME 10.5 fl (7.4-10.4); MONOCYTE # 0.2 10^3/ul (0.3-0.9); MONOCYTES % 5.3 % (0.0-11.0); NEUTROPHIL # 2.9 10^3/ul (1.6-7.5); NEUTROPHILS % 86.1 % (39.0-77.0); PLATELET COUNT 147 10^3/UL (140-415); POSITIVE DIFF @See below; RED BLOOD COUNT 4.81 10^6/ul (4.70-6.10); RED CELL DISTRIBUTION WIDTH 12.5 % (11.5-14.5); WHITE BLOOD COUNT 3.4 10^3/ul (4.8-10.8)
[2017-08-08 15:41] LABS: INR 1.01; PROTIME 13.3 Sec (12.2-14.2)
[2017-08-08 15:42] LABS: PARTIAL THROMBOPLASTIN TIME 28.5 Sec (25.0-35.0)
[2017-08-08 15:46] LABS: ALBUMIN 4.3 g/dl (3.3-4.9); ALBUMIN/GLOBULIN RATIO 1.19; BILIRUBIN,INDIRECT 0.4 mg/dl (0-1.1); BILIRUBIN,TOTAL 0.4 mg/dl (0.2-1.3); CALCIUM 10.1 mg/dl (8.4-10.2); CREATININE 1.6 mg/dl (0.61-1.24); TOTAL PROTEIN 7.9 g/dl (6.1-8.1)
[2017-08-08 15:55] LABS: ADD UMIC YES; UR ASCORBIC ACID NEGATIVE (NEGATIVE); UR BILIRUBIN (Dip) NEGATIVE (NEGATIVE); UR BLOOD (Dip) NEGATIVE (NEGATIVE); UR CLARITY CLEAR (CLEAR); UR COLOR YELLOW (YELLOW); UR GLUCOSE (Dip) NEGATIVE (NEGATIVE); UR KETONES (Dip) NEGATIVE (NEGATIVE); UR LEUKOCYTE ESTERASE (Dip) NEGATIVE Leu/ul (NEGATIVE); UR NITRITE (Dip) NEGATIVE (NEGATIVE); UR RBC 1 /HPF (0-5); UR SPECIFIC GRAVITY (Dip) 1.021 (1.003-1.030); UR TOTAL PROTEIN (Dip) 2+ mg/dl (NEGATIVE); UR UROBILINOGEN (Dip) 1+ mg/dL (NEGATIVE)
--- NOTE | 2017-08-08 16:29 | RADRPT ---
PROCEDURE: XR left Hand. CLINICAL INDICATION: Ulcer/pain TECHNIQUE: Three views of the left hand were obtained. COMPARISON: No prior studies are available for comparison. 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 There is irregu larity of the soft tissues overlying the second distal phalanx. There is also cortical irregularity at the tuft. Early osteomyelitis cannot be excluded. The remaining osseous structures are intact and there are are extensive vascular calcifications. There is calcification in the soft tissues lateral to the distal radius. IMPRESSION: 1. Cortical irregularity at the tuft of the second distal phalanx with overlying soft tissue defect , suggesting early osteomyelitis. Please note that MRI is more sensitive in evaluating for early elana nges of osteomyelitis. 2. 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 3. Extensive vascular calcifications. RPTAT: HH .Isiah Sims MD, Date Time Electronically viewed and signed by .Isiah Sims MD, on 08/08/2017 16:28 .d/
[2017-08-08 16:42] VITALS: TEMP 97.7
[2017-08-08] MEDS ORDERED: DIPHENHYDRAMINE 50 MG INJ IV ONE (17:00)
--- NOTE | 2017-08-08 17:23 | ERA ---
ER Documentation Chief Complaint Date/Time DATE: 08/08/17 TIME: 17:10 Chief Complaint SWELLING ON FINGERS HPI 56-year-old man complains of left index and right ring fingertip pain 4 days. He has had similar pains in the past and has required fingertip amputation secondary to uncontrolled diabetes and osteomyelitis. 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 He denies direct injury to the fingers, no skin breakdown, no bleeding, no fevers or chills. Patient denies chest pain or shortness of breath, no recent antibiotic use. ROS All systems reviewed and are negative except as per history of present illness. Medications Home Meds Active Scripts Famotidine* (Famotidine*) 20 Mg Tablet, 20 MG PO BID, #60 TAB Prov:LETI RODRIGUEZ 05/09/17 Tacrolimus* (Prograf*) 0.5 Mg Capsule, 3 MG PO BID for 30 Days, CAP Prov:LETI RODRIGUEZ 05/09/17 Prednisone* (Prednisone*) 5 Mg Tab, 5 MG PO DAILY for 30 Days, TAB Prov:LETI RODRIGUEZ 05/09/17 Mycophenolate Sodium* (Myfortic*) 180 Mg Tab, 540 MG PO BID for 30 Days, TAB Prov:LETI RODRIGUEZ 05/09/17 Hydrocodone/Acetaminophen (Amagon 5-325 Tablet) 1 Each Tablet, 1 TAB PO Q6H Y for PAIN, #30 TAB Prov:LETI RODRIGUEZ 05/09/17 Nifedipine* (Procardia XL*) 30 Mg/Bottle Tab.osm.24, 30 MG PO DAILY, #30 TAB.SA FOR BP >140 Prov:GONZALO CR SPORTS MARKETING COORDINATOR 04/14/15 Metoprolol Tartrate* (Lopressor*) 50 Mg Tab, 50 MG PO BID, #60 TAB Prov:GONZALO CR SPORTS MARKETING COORDINATOR 04/14/15 Reported Medications Insulin Glargine* (Lantus*) 100 Unit/Ml Soln, 10 UNIT SC QAM, #1 VIAL 04/28/16 Clonidine Hcl* (Clonidine Hcl*) 0.1 Mg Tab, 0.1 MG PO Q4H Y for ELEVATED BLOOD PRESSURE, TAB PRN FOR SBP>160 06/03/14 Allergies Allergies: Coded Allergies: magnesium (Verified Allergy, Intermediate, 08/08/17) NUMBNESS AND HOT FUSHES PMhx/Soc Hypertension, diabetes mellitus, dyslipidemia, prior kidney transplant not currently on hemodialysis History of Surgery: Yes (Renal transplant 2009) Anesthesia Reaction: No Hx 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 Disorder: No Hx Respiratory Disorders: No Hx Cardiac Disorders: Yes (HTN) Hx Psychiatric Problems: No Hx Miscellaneous Medical Probl: Yes (Prior polysubstane abuse,DMII) Hx Alcohol Use: Yes (occasionally) Hx Substance Use: Yes (marijuana) Hx Tobacco Use: No Smoking Status: Former smoker FmHx Family History: No diabetes Physical Exam Vitals Vital Signs Date Time Temp Pulse Resp B/P Pulse Ox O2 Delivery O2 Flow Rate FiO2 08/08/17 16:42 97.7 66 18 100/68 99 Room Air 08/08/17 13:43 98.2 76 18 107/62 98 Physical Exam GENERAL: Well-developed, well-nourished, well-hydrated, in no apparent distress , looks nontoxic in appearance HEENT: Moist mucous membranes, pink conjunctiva, no cervical spine tenderness or step-off deformities, no goiter, no jaundice or icterus, extraocular movements intact without pain. No submandibular induration, and no pharyngeal erythema NEURO: Alert and oriented 3, cranial nerves II through XII intact bilaterally, pupils equal round reactive to light, no focal deficits or facial asymmetry, sensation intact distally Strength 5/5 in upper and lower extremities bilaterally CARDIAC: Regular rate and rhythm, no murmurs rubs or gallops LUNGS: Clear bilaterally no wheezing crackles or stridor ABDOMEN: Soft nontender, no guarding, no rigidity, no rebound, no psoas sign no obturator sign. Normoactive bowel sounds SKIN: Warm and dry to touch, no abrasions, contusions, or hematomas, no lacerations, no ecchymosis, no target lesions, and without ulcers EXTREMITIES: Left index finger and right ring finger are both indurated with distal pallor, multiple superficial abrasions to the hand, and prior finger amputation with stump's appearing clean and dry PSYCH: Normal affect without agitation or irritability Result Diagram: 08/08/17 1504 08/08/17 1504 Results 24 hrs Laboratory Tests Test 08/08/17 15:04 08/08/17 15:30 White Blood Count 3.410^3/ul Red Blood Count 4.8110^6/ul Hemoglobin 16.4g/dl Hematocrit 50.7% Mean Corpuscular Volume 105.4fl Mean Corpuscular Hemoglobin 34.1pg Mean Corpuscular Hemoglobin Concent 32.3g/dl Red Cell Distribution Width 12.5% Platelet Count 09624^3/UL Mean Platelet Volume 10.5fl Neutrophils % 86.1% Lymphocytes % 7.4% Monocytes % 5.3% Eosinophils % 0.6% Basophils % 0.6% Nucleated Red Blood Cells % 0.0/100WBC Neutrophils # 2.910^3/ul Lymphocytes # 0.310^3/ul Monocytes # 0.210^3/ul Eosinophils # 0.010^3/ul Basophils # 0.010^3/ul Nucleated Red Blood Cells # 0.010^3/ul Prothrombin Time 13.3Sec Prothrombin Time Ratio 1.0 INR International Normalized Ratio 1.01 Activated Partial Thromboplast Time 28.5Sec Sodium Level 140mmol/L Potassium Level 6.0mmol/L Chloride Level 107mmol/L Carbon Dioxide Level 25mmol/L Anion Gap 14 Blood Urea Nitrogen 32mg/dl Creatinine 1.60mg/dl Glucose Level 218mg/dl Lactic Acid Level 1.7mmol/L Calcium Level 10.1mg/dl Total Bilirubin 0.4mg/dl Direct Bilirubin 0.00mg/dl Indirect Bilirubin 0.4mg/dl Aspartate Amino Transf (AST/SGOT) 67IU/L Alanine Aminotransferase (ALT/SGPT) 57IU/L Alkaline Phosphatase 103IU/L Total Protein 7.9g/dl Albumin 4.3g/dl Globulin 3.60g/dl Albumin/Globulin Ratio 1.19 Urine Color YELLOW Urine Clarity CLEAR Urine pH 5.0 Urine Specific [place] 1.021 Urine Ketones NEGATIVEmg/dL Urine Nitrite NEGATIVEmg/dL Urine Bilirubin NEGATIVEmg/dL Urine Urobilinogen 1+mg/dL Urine Leukocyte Esterase NEGATIVELeu/ul Urine Microscopic RBC 1/HPF Urine Microscopic WBC 1/HPF Urine Hemoglobin NEGATIVEmg/dL Urine Glucose NEGATIVEmg/dL Urine Total Protein 2+mg/dl Current Medications Medications (Trade) Dose Ordered Sig/Kathryn Route PRN Reason Start Time Stop Time Status Last Admin Dose Admin Acetaminophen 650 mg 650 mg ONCE STAT PO 08/08/17 14:50 08/08/17 14:53 DC Vancomycin HCl 250 ml @ 125 mls/hr ONCE ONCE IVPB 08/08/17 15:00 08/08/17 16:59 DC 08/08/17 16:14 Piperacillin Sod/ Tazobactam Sod (Zosyn 3.375gm/ 100 ml (Pmx)) 100 ml @ 100 mls/hr ONCE STAT IVPB 08/08/17 14:50 08/08/17 15:49 DC 08/08/17 15:37 Morphine Sulfate (morphine) 4 mg ONCE STAT IV 08/08/17 15:09 08/08/17 15:10 DC 08/08/17 15:37 Ondansetron HCl (Zofran Inj) 4 mg ONCE STAT IV 08/08/17 15:09 08/08/17 15:10 DC 08/08/17 15:37 Diphenhydramine HCl (Benadryl) 25 mg ONCE ONCE IV 08/08/17 17:00 08/08/17 17:01 DC 08/08/17 17:03 Furosemide 20 mg 20 mg ONCE ONCE IV 08/08/17 17:30 08/08/17 17:31 Calcium Gluconate/ Sodium Chloride (Ca Gluc/NS) 110 ml @ 110 mls/hr ONCE ONCE IVPB 08/08/17 17:30 08/08/17 18:29 UNV Procedures/MDM IV line was established 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 Patient was afebrile. I administered morphine 4 mg IV, Zofran 4 mg IV, vancomycin 1 g IV, Zosyn 3.375 g IV, and acetaminophen 650 mg p.o. Three-view x-ray of the left hand was performed, read by me no acute fracture dislocation noted although there is evidence of early osteomyelitis of the tuft of the distal phalanx of the left index finger. Three-view x-ray of the right hand was performed, read by me no acute fracture dislocation noted with evidence of early osteomyelitis of the tuft of the distal phalanx of the fourth digit. EKG performed, read by me revealed a sinus bradycardia 52 bpm, normal axis, narrow QRS complex, no concerning ST elevations or depressions noted. CBC was unremarkable, electrolytes revealed hyperkalemia at 6 with acute kidney injury and a BUN/creatinine of 38/1.6. Liver function tests normal, troponin negative, lactic acid low Coagulation profile was normal. I also administered Benadryl 50 mg IV 1, for suspected hyperkalemia patient received furosemide 20 mg IV and calcium gluconate 1 g IV. Patient has no signs of acute soft tissue infection but has osteomyelitis of the left index and right ring finger with evidence of hyperkalemia and acute kidney injury. He will be admitted to [facility] for continued medical management and IV antibiotics. Departure Diagnosis: Primary Impression: Finger osteomyelitis, left Additional Impressions: Finger osteomyelitis, right Acute kidney injury Hyperkalemia Condition: LIZ Marinelli MD Aug 08, 2017 17:22
[2017-08-08] MEDS ORDERED: FUROSEMIDE 20 MG INJ IV ONE (17:30)
[2017-08-08] MEDS ORDERED: ALBUTEROL 0.083% (NEB) 2.5 MG/3 ML AMP HHN STA (17:42)
[2017-08-08] MEDS ORDERED: CALCIUM GLUCONATE 10% 1 GM in SOD CHLORIDE 0.9% 100 ML IVPB ONE (18:30)
[2017-08-08 19:05] VITALS: BP 163/73; RESP 18
[2017-08-08 19:27] LABS: CALCIUM 9.7 mg/dl (8.4-10.2); CREATININE 1.5 mg/dl (0.61-1.24); POTASSIUM 5.9 mmol/L (3.5-5.1)
[2017-08-08 19:33] VITALS: Ht 172.7 cm; Wt 44.0 kg
[2017-08-08 20:00] VITALS: BP 130/67; RESP 20
--- NOTE | 2017-08-08 20:59 | RADRPT ---
PROCEDURE: XR Hand. CLINICAL INDICATION: Pain and swelling. TECHNIQUE: Three views of the right hand. COMPARISON: Right third finger x-rays dated 04/11/2017. FINDINGS: The patient is status post amputation of the second finger at the second proximal phalanx neck. Soft tissue swelling is noted along the fingers. Apparent increased periosteal reaction is seen at the t ip of the third distal phalanx, possibly representing osteomyelitis. No fracture or dislocation is i dentified. There are arterial calcifications. IMPRESSION: 1. Apparent increased periosteal reaction at the tip of the third distal phalanx, possibly represen ting osteomyelitis. 2. Status post amputation of the second finger at the second proximal phalanx neck. RPTAT: HTAR .Chandler Hernandez MD, Date Time Electronically viewed and signed by .Chandler Hernandez MD, on 08/08/2017 20:59 .R/
[2017-08-08] MEDS ORDERED: VANCOMYCIN IV PER PHARMACY XX SCH (21:00)
[2017-08-08] MEDS ORDERED: CEFEPIME 1GM/50 ML (PMX) 50 ML IVPB SCH (21:00)
[2017-08-08] MEDS ORDERED: [UNRECOGNIZED DRUG - REMARK] XX ONE (21:00)
[2017-08-08] MEDS: INSULIN ASPART [NOVOLOG] 3 ML PEN SC SCH (21:00)
[2017-08-08] MEDS ORDERED: HYDROCODONE/APAP (5/325) TAB PO PRN (21:00)
[2017-08-08] MEDS ORDERED: GLUCOSE GEL 15 GRAM TUBE PO PRN ×2 (21:30)
[2017-08-08] MEDS ORDERED: GLUCAGON 1 MG INJ IM PRN (21:30)
[2017-08-08] MEDS ORDERED: GLUCOSE GEL 15 GRAM TUBE BUCCAL PRN (21:30)
[2017-08-08] MEDS ORDERED: DEXTROSE 50% 50 ML SYRINGE IV PRN ×2 (21:30)
[2017-08-08] MEDS: MYCOPHENOLATE (SR) 180 MG TAB PO SCH (22:28)
[2017-08-08] MEDS: FAMOTIDINE 20 MG TAB PO SCH (22:28)
[2017-08-08] MEDS: METOPROLOL 50 MG TAB PO SCH (22:29)
[2017-08-08] MEDS: TACROLIMUS 0.5 MG CAP PO SCH (22:29)
[2017-08-08] MEDS: INSULIN GLARGINE [LANtus] 3 ML PEN SC SCH (22:46)
[2017-08-09] MEDS: DAPTOMYCIN 250 MG in SOD CHLORIDE 0.9% 100 ML IVPB SCH ×2 (00:57→23:45)
[2017-08-09] MEDS: ACCU-CHEK XX SCH (01:08)
[2017-08-09] MEDS ORDERED: ACCU-CHEK XX SCH (02:00)
[2017-08-09 02:28] VITALS: BP 146/57; RESP 20
[2017-08-09 05:51] LABS: BASOPHILS % 0.8 % (0.0-2.0); EOSINOPHILS # 0.1 10^3/ul (0.0-0.5); EOSINOPHILS % 2.5 % (0.0-7.0); HEMATOCRIT 46.9 % (42.0-52.0); HEMOGLOBIN 15.4 g/dl (14.0-18.0); LYMPHOCYTES # 0.7 10^3/ul (0.8-2.9); LYMPHOCYTES % 19.6 % (15.0-51.0); MEAN CORPUSCULAR HEMOGLOBIN 34.3 pg (29.0-33.0); MEAN CORPUSCULAR HGB CONC 32.8 g/dl (32.0-37.0); MEAN CORPUSCULAR VOLUME 104.5 fl (82.0-101.0); MEAN PLATELET VOLUME 10.9 fl (7.4-10.4); MONOCYTE # 0.5 10^3/ul (0.3-0.9); MONOCYTES % 12.8 % (0.0-11.0); NEUTROPHIL # 2.3 10^3/ul (1.6-7.5); NEUTROPHILS % 63.8 % (39.0-77.0); PLATELET COUNT 146 10^3/UL (140-415); RED BLOOD COUNT 4.49 10^6/ul (4.70-6.10); RED CELL DISTRIBUTION WIDTH 12.4 % (11.5-14.5); WHITE BLOOD COUNT 3.7 10^3/ul (4.8-10.8)
[2017-08-09 06:15] LABS: CALCIUM 9.7 mg/dl (8.4-10.2); CREATININE 1.59 mg/dl (0.61-1.24); POTASSIUM 4.5 mmol/L (3.5-5.1)
[2017-08-09 07:28] VITALS: BP 172/87; RESP 18
[2017-08-09] MEDS: INSULIN ASPART [NOVOLOG] 3 ML PEN SC SCH ×4 (08:15→21:00)
[2017-08-09] MEDS: predniSONE 5 MG TAB PO SCH (08:42)
[2017-08-09] MEDS: FAMOTIDINE 20 MG TAB PO SCH (08:43)
[2017-08-09] MEDS: METOPROLOL 50 MG TAB PO SCH ×2 (08:43→21:00)
[2017-08-09] MEDS: MYCOPHENOLATE (SR) 180 MG TAB PO SCH ×2 (08:44→21:11)
[2017-08-09] MEDS: TACROLIMUS 0.5 MG CAP PO SCH ×2 (08:52→21:10)
[2017-08-09] MEDS ORDERED: CEFEPIME 1GM/50 ML (PMX) 50 ML IVPB SCH (09:00)
[2017-08-09] MEDS: INSULIN GLARGINE [LANtus] 3 ML PEN SC SCH ×2 (09:11→21:17)
[2017-08-09] MEDS: HYDROCODONE/APAP (7.5/325) TAB PO PRN ×3 (10:39→21:12)
[2017-08-09] MEDS: AMLODIPINE 5 MG TAB PO SCH (10:45)
--- NOTE | 2017-08-09 11:54 | CONS ---
Date/Time of Note Date/Time of Note DATE: 08/09/17 TIME: 11:54 Assessment/Plan Assessment/Plan Additional Assessment/Plan ASSESSMENT: 1. Acute Kidney inury on CKD due to Prerenal azotemia and Infection 2. Left finger infection possibel recurrent OM of left finger 3.h/o OM of R 2nd finger s/p amputation at proximal phalanx neck, and h/o OM of L 3rd finger s/p amputation at middle and distal phalanges 4. 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 h/o ESRD, was on HD - s/p renal transplant in 2009 (on tacrolimus 3mg bid, mycophenolate 540 mg bid, prednisone 5 mg daily), mild renal insufficiency at baseline 6. rheumatoid arthritis 7. chronic HCV infection 8. HTN 9. dyslipidemia 10. h/o polysubstance and IV drug use. 11. h/o pernicious anemia. 12. h/o erosive esophagitis and gastritis Plan: pt has previously had a full CKD work up - no need to repeat it I will give IVF NS Monitor Cr and electrolytes and replace as needed BP stable IV abx as per ID Continue current Immunosuppression for kidney transplant,( tacrolimus 3mg bid, mycophenolate 540 mg bid, prednisone 5 mg daily) pt has no signs and symptoms of tracrolimus toxicity, so we will monitor it. Thanks for consultation, we will conitnue to follow up on patient. Consultation Date/Type/Reason Admit Date/Time Aug 08, 2017 at 16:53 Date of Consultation: Aug 09, 2017 Type of Consultation: NEPHROLOGY Reason for Consultation acute kidney injury, CKD Referring Provider: LUPE KAPLAN MD Hx of Present Illness 56 yo male with DM and s/p renal transplant in 2009 (on tacrolimus 3mg bid, mycophenolate 540 mg bid, prednisone 5 mg daily), rheumatoid arthritis and HCV infection. Pt has h/o OM of R 2nd finger s/p amputation at proximal phalanx neck , and h/o OM of L 3rd finger s/p amputation at middle and distal phalanges. Pt was readmitted on 08/08/2017 due to pain in his R 4th finger and L 2nd finger. Pt denies purulence. 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 XR showed periosteal reaction at the tip of R 3rd distal phalanx, suspicious for OM, cortical irregularity at the tuft of L 2nd distal phalanx with overlying soft tissue defect, suggesting early OM. Pt is receiving daptomycin and cefepime. Pt reports less stiffness and pain of the effected fingers. pt had a Creatinine of 1.6 on admission, BP stable, awaiting MRI of finger to be done, renal has been consulted for DESHAUN on CKD and management of immunosuppression. Constitutional: no complaints Eyes: no complaints ENT: no complaints Respiratory: no complaints Cardiovascular: no complaints Gastrointestinal: no complaints Genitourinary: no complaints Musculoskeletal: other (finger pain left ) Skin: no complaints Neurologic: no complaints Endocrine: no complaints Lymphatic: no complaints Psychological: no complaints Immunologic: no complaints Past Medical History Medical History: diabetes, high cholesterol, hypertension, other (Recurrent left finger OM ) Past Surgical History Past Surgical Hx: other (kidnety transplant surgery . left finger surgery ) Family History Significant Family History: no pertinent family hx Social History Alcohol Use: none Smoking Status: Former smoker Drug Use: none Exam/Review of Systems Vital Signs Vitals Vital Signs Date Time Temp Pulse Resp B/P Pulse Ox O2 Delivery O2 Flow Rate FiO2 08/09/17 07:28 97.9 60 18 172/87 98 08/08/17 18:19 Room Air 08/08/17 18:18 21 Intake and Output 08/08/17 08/08/17 08/09/17 15:00 23:00 07:00 Intake Total 460 ml 100 ml Output Total 1000 ml Balance 460 ml -900 ml Exam Constitutional: alert Psych: no complaints Head: normocephalic Eyes: nl conjunctiva ENMT: nl external ears & nose, nl lips & teeth, nl nasal mucosa & septum Neck: non-tender, supple Respiratory: clear to auscultation, normal air movement Cardiovascular: nl pulses, regular rate and rhythm Gastrointestinal: non-tender, soft Musculoskeletal: other (left finger swelling possible abscess vs OM ) Extremities: normal pulses 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: INSIDE SALES EXECUTIVE II-XII intact, nl mental status, nl speech, nl strength Lymph: nl lymph nodes Results Result Diagram: 08/09/1752508/09/17525 Results 24 hrs Laboratory Tests Test 08/08/17 15:04 08/08/17 15:30 08/08/17 17:45 08/08/17 20:06 White Blood Count 3.4 L Red Blood Count 4.81 Hemoglobin 16.4 Hematocrit 50.7 Mean Corpuscular Volume 105.4 H Mean Corpuscular Hemoglobin 34.1 H Mean Corpuscular Hemoglobin Concent 32.3 Red Cell Distribution Width 12.5 Platelet Count 147 Mean Platelet Volume 10.5 H Neutrophils % 86.1 H Lymphocytes % 7.4 L Monocytes % 5.3 Eosinophils % 0.6 Basophils % 0.6 Nucleated Red Blood Cells % 0.0 Neutrophils # 2.9 Lymphocytes # 0.3 L Monocytes # 0.2 L Eosinophils # 0.0 Basophils # 0.0 Nucleated Red Blood Cells # 0.0 Prothrombin Time 13.3 Prothrombin Time Ratio 1.0 INR International Normalized Ratio 1.01 Activated Partial Thromboplast Time 28.5 Sodium Level 140 136 Potassium Level 6.0 H 5.9 H Chloride Level 107 107 Carbon Dioxide Level 25 25 Anion Gap 14 10 Blood Urea Nitrogen 32 H 31 H Creatinine 1.60 H 1.50 H Glucose Level 218 249 H Lactic Acid Level 1.7 1.5 2.0 Calcium Level 10.1 9.7 Total Bilirubin 0.4 Direct Bilirubin 0.00 Indirect Bilirubin 0.4 Aspartate Amino Transf (AST/SGOT) 67 H Alanine Aminotransferase (ALT/SGPT) 57 Alkaline Phosphatase 103 Total Protein 7.9 Albumin 4.3 Globulin 3.60 H Albumin/Globulin Ratio 1.19 Urine Color YELLOW Urine Clarity CLEAR Urine pH 5.0 Urine Specific [place] 1.021 Urine Ketones NEGATIVE Urine Nitrite NEGATIVE Urine Bilirubin NEGATIVE Urine Urobilinogen 1+ H Urine Leukocyte Esterase NEGATIVE Urine Microscopic RBC 1 Urine Microscopic WBC 1 Urine Hemoglobin NEGATIVE Urine Glucose NEGATIVE Urine Total Protein 2+ H Troponin I 0.024 Test 08/08/17 20:28 08/08/17 22:42 08/09/17 05:26 08/09/17 08:40 Bedside Glucose 179 92 Hemoglobin A1c 7.1 H White Blood Count 3.7 L Red Blood Count 4.49 L Hemoglobin 15.4 Hematocrit 46.9 Mean Corpuscular Volume 104.5 H Mean Corpuscular Hemoglobin 34.3 H Mean Corpuscular Hemoglobin Concent 32.8 Red Cell Distribution Width 12.4 Platelet Count 146 Mean Platelet Volume 10.9 H Neutrophils % 63.8 Lymphocytes % 19.6 Monocytes % 12.8 H Eosinophils % 2.5 Basophils % 0.8 Nucleated Red Blood Cells % 0.0 Neutrophils # 2.3 Lymphocytes # 0.7 L Monocytes # 0.5 Eosinophils # 0.1 Basophils # 0.0 Nucleated Red Blood Cells # 0.0 Erythrocyte Sedimentation Rate 4 Sodium Level 142 Potassium Level 4.5 Chloride Level 110 Carbon Dioxide Level 24 Anion Gap 13 Blood Urea Nitrogen 28 H Creatinine 1.59 H Glucose Level 110 # Calcium Level 9.7 Medications Medications Current Medications Clonidine (Catapres) 0.1 mg Q4H PRN PO ELEVATED BLOOD PRESSURE Last administered on 08/09/17 11:25; Admin Dose 0.1 MG; Start 08/08/17 at 21:00 Insulin Glargine (Lantus) 5 unit BID SC Last administered on 08/09/17 09:11; Admin Dose 5 UNIT; Start 08/08/17 at 21:25 Metoprolol Tartrate (Lopressor) 50 mg BID PO Last administered on 08/09/17 08: 43; Admin Dose 50 MG; Start 08/08/17 at 21:26 Mycophenolate Sodium (Myfortic) 540 mg BID PO Last administered on 08/09/17 08 :44; Admin Dose 540 MG; Start 08/08/17 at 22:00 Prednisone (Prednisone) 5 mg DAILY PO Last administered on 08/09/17 08:42; Admin Dose 5 MG; Start 08/09/17 at 09:00 Tacrolimus (Prograf) 3 mg BID PO Last administered on 08/09/17 08:52; Admin Dose 3 MG; Start 08/08/17 at 21:00 Diagnostic Test (Pha) (Accu-Chek) 1 ea 02 XX ; Start 08/09/17 at 02:00 Miscellaneous Information 1 ea NOTE XX ; Start 08/08/17 at 21:30 Glucose (Glutose) 15 gm Q15M PRN PO DECREASED GLUCOSE; Start 08/08/17 at 21:30 Glucose (Glutose) 22.5 gm Q15M PRN PO DECREASED GLUCOSE; Start 08/08/17 at 21: 30 Dextrose (D50w Syringe) 25 ml Q15M PRN IV DECREASED GLUCOSE; Start 08/08/17 at 21:30 Dextrose (D50w Syringe) 50 ml Q15M PRN IV DECREASED GLUCOSE; Start 08/08/17 at 21:30 Glucagon (Glucagen) 1 mg Q15M PRN IM DECREASED GLUCOSE; Start 08/08/17 at 21:30 Glucose 15 gm 15 gm Q15M PRN BUCCAL DECREASED GLUCOSE; Start 08/08/17 at 21:30 Daptomycin 250 mg/ Sodium Chloride 100 ml @ 200 mls/hr Q24H IVPB Last administered on 08/09/17 00:57; Admin Dose 200 MLS/HR; Start 08/09/17 at 00:00 Cefepime HCl (Maxipime 1gm/50 ml (Pmx)) 50 ml @ 100 mls/hr Q12 IVPB Last administered on 08/09/17 08:42; Admin Dose 100 MLS/HR; Start 08/09/17 at 09:00 Acetaminophen/ Hydrocodone Bitart ([place] (7.5-325)) 1 tab Q4H PRN PO PAIN LEVEL 4-7 Last administered on 08/09/17 10:39; Admin Dose 1 TAB; Start at 09:30 Amlodipine Besylate (Norvasc) 5 mg DAILY PO Last administered on 08/09/17 10: 45; Admin Dose 5 MG; Start 08/09/17 at 09:30 Pantoprazole (Protonix Tab) 40 mg DAILY@06 PO ; Start 08/10/17 at 10:00 SHAKA SIMPSON MD Aug 09, 2017 11:54
[2017-08-09] MEDS ORDERED: SOD CHLORIDE 0.9% 1,000 ML IV SCH (12:00)
--- NOTE | 2017-08-09 13:22 | CONS ---
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 (XR showed periosteal reaction at the tip of R 3rd distal phalanx, suspicious for OM) and L 2nd fingertip (XR showed cortical irregularity at the tuft of L 2nd distal phalanx with overlying soft tissue defect, suggesting early OM) - h/o OM of R 2nd finger s/p amputation at proximal phalanx neck, and h/o OM of L 3rd finger s/p amputation at middle and distal phalanges - DM - h/o ESRD, was on HD - s/p renal transplant in 2009 (on tacrolimus 3mg bid, mycophenolate 540 mg bid , prednisone 5 mg daily), mild renal insufficiency at baseline - rheumatoid arthritis - chronic HCV infection - HTN - dyslipidemia - h/o polysubstance and IV drug use. - h/o pernicious anemia. - h/o hyperparathyroidism. - h/o erosive esophagitis and gastritis recommendations - will review the result of MRI - I recommend vascular studies/consult on his vascular sufficiency of b/l fingers - I recommend pip/tazo and daptomycin (vancomycin was switched to dapto by the primary provider) 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 and his RN Problems: Consultation Date/Type/Reason Admit Date/Time Aug 08, 2017 at 16:53 Date of Consultation: Aug 09, 2017 Type of Consultation: ID Reason for Consultation recurrent OM finger tips Hx of Present Illness This is a 56 yo male with DM and s/p renal transplant in 2009 (on tacrolimus 3mg bid, mycophenolate 540 mg bid, prednisone 5 mg daily), rheumatoid arthritis and HCV infection. Pt has h/o OM of R 2nd finger s/p amputation at proximal phalanx neck, and h/o OM of L 3rd finger s/p amputation at middle and distal phalanges. Pt was readmitted on 08/08/2017 due to pain in his R 4th finger and L 2nd finger. Pt denies purulence. 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 XR showed periosteal reaction at the tip of R 3rd distal phalanx, suspicious for OM, cortical irregularity at the tuft of L 2nd distal phalanx with overlying soft tissue defect, suggesting early OM. Pt is receiving daptomycin and cefepime. Pt reports less stiffness and pain of the effected fingers. At present Pt's waiting for MRI of b/l hands. Dr. Maier requested ID consultation on this Pt. Constitutional: no complaints Eyes: no complaints ENT: no complaints Respiratory: no complaints Cardiovascular: no complaints Gastrointestinal: no complaints Genitourinary: no complaints Musculoskeletal: bone/joint pain (R 3rd and L 2nd finger), restricted range of motion (R 3rd finger), No swelling Skin: laceration (R 4th finger) Neurologic: no complaints Past Medical History Medical History: diabetes, renal disease, other (ESRD, used to be on HD) Past Surgical History Past Surgical Hx: endoscopy, other (s/p renal transplant) Social History Alcohol Use: none Smoking Status: Former smoker Exam/Review of Systems Vital Signs Vitals Vital Signs Date Time Temp Pulse Resp B/P Pulse Ox O2 Delivery O2 Flow Rate FiO2 08/09/17 07:28 97.9 60 18 172/87 98 08/08/17 18:19 Room Air 08/08/17 18:18 21 Intake and Output 08/08/17 08/08/17 08/09/17 15:00 23:00 07:00 Intake Total 460 ml 100 ml Output Total 1000 ml Balance 460 ml -900 ml Exam Constitutional: alert, oriented, well developed Psych: nl mood/affect, no complaints Head: atraumatic, normocephalic Eyes: nl conjunctiva, nl lids, nl sclera ENMT: nl external ears & nose, nl nasal mucosa & septum Neck: supple Respiratory: clear to auscultation, normal air movement Cardiovascular: nl pulses, regular rate and rhythm Gastrointestinal: non-tender, soft Musculoskeletal: other (tender R3rd and L 2nd finger tips; s/p amputation of R 2nd and L 3rd finger tips), swelling Extremities: other (old AVF in her LUE), No edema 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: MERCHANDISE COORDINATOR II-XII intact, nl mental status, nl speech Skin: rash or lesions (laceration to R 4th finger tip) Results Result Diagram: 08/09/1752508/09/17525 Results 24 hrs Laboratory Tests Test 08/08/17 15:04 08/08/17 15:30 08/08/17 17:45 08/08/17 20:06 White Blood Count 3.4 L Red Blood Count 4.81 Hemoglobin 16.4 Hematocrit 50.7 Mean Corpuscular Volume 105.4 H Mean Corpuscular Hemoglobin 34.1 H Mean Corpuscular Hemoglobin Concent 32.3 Red Cell Distribution Width 12.5 Platelet Count 147 Mean Platelet Volume 10.5 H Neutrophils % 86.1 H Lymphocytes % 7.4 L Monocytes % 5.3 Eosinophils % 0.6 Basophils % 0.6 Nucleated Red Blood Cells % 0.0 Neutrophils # 2.9 Lymphocytes # 0.3 L Monocytes # 0.2 L Eosinophils # 0.0 Basophils # 0.0 Nucleated Red Blood Cells # 0.0 Prothrombin Time 13.3 Prothrombin Time Ratio 1.0 INR International Normalized Ratio 1.01 Activated Partial Thromboplast Time 28.5 Sodium Level 140 136 Potassium Level 6.0 H 5.9 H Chloride Level 107 107 Carbon Dioxide Level 25 25 Anion Gap 14 10 Blood Urea Nitrogen 32 H 31 H Creatinine 1.60 H 1.50 H Glucose Level 218 249 H Lactic Acid Level 1.7 1.5 2.0 Calcium Level 10.1 9.7 Total Bilirubin 0.4 Direct Bilirubin 0.00 Indirect Bilirubin 0.4 Aspartate Amino Transf (AST/SGOT) 67 H Alanine Aminotransferase (ALT/SGPT) 57 Alkaline Phosphatase 103 Total Protein 7.9 Albumin 4.3 Globulin 3.60 H Albumin/Globulin Ratio 1.19 Urine Color YELLOW Urine Clarity CLEAR Urine pH 5.0 Urine Specific [place] 1.021 Urine Ketones NEGATIVE Urine Nitrite NEGATIVE Urine Bilirubin NEGATIVE Urine Urobilinogen 1+ H Urine Leukocyte Esterase NEGATIVE Urine Microscopic RBC 1 Urine Microscopic WBC 1 Urine Hemoglobin NEGATIVE Urine Glucose NEGATIVE Urine Total Protein 2+ H Troponin I 0.024 Test 08/08/17 20:28 08/08/17 22:42 08/09/17 05:26 08/09/17 08:40 Bedside Glucose 179 92 Hemoglobin A1c 7.1 H White Blood Count 3.7 L Red Blood Count 4.49 L Hemoglobin 15.4 Hematocrit 46.9 Mean Corpuscular Volume 104.5 H Mean Corpuscular Hemoglobin 34.3 H Mean Corpuscular Hemoglobin Concent 32.8 Red Cell Distribution Width 12.4 Platelet Count 146 Mean Platelet Volume 10.9 H Neutrophils % 63.8 Lymphocytes % 19.6 Monocytes % 12.8 H Eosinophils % 2.5 Basophils % 0.8 Nucleated Red Blood Cells % 0.0 Neutrophils # 2.3 Lymphocytes # 0.7 L Monocytes # 0.5 Eosinophils # 0.1 Basophils # 0.0 Nucleated Red Blood Cells # 0.0 Erythrocyte Sedimentation Rate 4 Sodium Level 142 Potassium Level 4.5 Chloride Level 110 Carbon Dioxide Level 24 Anion Gap 13 Blood Urea Nitrogen 28 H Creatinine 1.59 H Glucose Level 110 # Calcium Level 9.7 Test 08/09/17 12:37 Bedside Glucose 130 Medications Medications Current Medications Clonidine (Catapres) 0.1 mg Q4H PRN PO ELEVATED BLOOD PRESSURE Last administered on 08/09/17 11:25; Admin Dose 0.1 MG; Start 08/08/17 at 21:00 Insulin Glargine (Lantus) 5 unit BID SC Last administered on 08/09/17 09:11; Admin Dose 5 UNIT; Start 08/08/17 at 21:25 Metoprolol Tartrate (Lopressor) 50 mg BID PO Last administered on 08/09/17 08: 43; Admin Dose 50 MG; Start 08/08/17 at 21:26 Mycophenolate Sodium (Myfortic) 540 mg BID PO Last administered on 08/09/17 08 :44; Admin Dose 540 MG; Start 08/08/17 at 22:00 Prednisone (Prednisone) 5 mg DAILY PO Last administered on 08/09/17 08:42; Admin Dose 5 MG; Start 08/09/17 at 09:00 Tacrolimus (Prograf) 3 mg BID PO Last administered on 08/09/17 08:52; Admin Dose 3 MG; Start 08/08/17 at 21:00 Diagnostic Test (Pha) (Accu-Chek) 1 ea 02 XX ; Start 08/09/17 at 02:00 Miscellaneous Information 1 ea NOTE XX ; Start 08/08/17 at 21:30 Glucose (Glutose) 15 gm Q15M PRN PO DECREASED GLUCOSE; Start 08/08/17 at 21:30 Glucose (Glutose) 22.5 gm Q15M PRN PO DECREASED GLUCOSE; Start 08/08/17 at 21: 30 Dextrose (D50w Syringe) 25 ml Q15M PRN IV DECREASED GLUCOSE; Start 08/08/17 at 21:30 Dextrose (D50w Syringe) 50 ml Q15M PRN IV DECREASED GLUCOSE; Start 08/08/17 at 21:30 Glucagon (Glucagen) 1 mg Q15M PRN IM DECREASED GLUCOSE; Start 08/08/17 at 21:30 Glucose 15 gm 15 gm Q15M PRN BUCCAL DECREASED GLUCOSE; Start 08/08/17 at 21:30 Daptomycin 250 mg/ Sodium Chloride 100 ml @ 200 mls/hr Q24H IVPB Last administered on 08/09/17 00:57; Admin Dose 200 MLS/HR; Start 08/09/17 at 00:00 Cefepime HCl (Maxipime 1gm/50 ml (Pmx)) 50 ml @ 100 mls/hr Q12 IVPB Last administered on 08/09/17 08:42; Admin Dose 100 MLS/HR; Start 08/09/17 at 09:00 Acetaminophen/ Hydrocodone Bitart ([place] (7.5-325)) 1 tab Q4H PRN PO PAIN LEVEL 4-7 Last administered on 08/09/17 10:39; Admin Dose 1 TAB; Start at 09:30 Amlodipine Besylate (Norvasc) 5 mg DAILY PO Last administered on 08/09/17 10: 45; Admin Dose 5 MG; Start 08/09/17 at 09:30 Pantoprazole 40 mg 40 mg DAILY@06 PO ; Start 08/10/17 at 10:00 Sodium Chloride (NS) 1,000 ml @ 70 mls/hr [id number] IV Last administered on 08/09 12:39; Admin Dose 70 MLS/HR; Start 08/09/17 at 12:00; Stop 08/10/17 at 02: 17 MAGO VAIL M.D. Aug 09, 2017 13:14
[2017-08-09 13:43] VITALS: BP 103/66; RESP 16
[2017-08-09 13:46] VITALS: BP 136/63
[2017-08-09] MEDS: PIPER-TAZO 2.25 GM (PMX) 50 ML IVPB SCH ×2 (14:24→21:11)
--- NOTE | 2017-08-09 16:57 | HP ---
Date/Time of Note Date/Time of Note DATE: 08/09/17 TIME: 16:57 Assessment/Plan VTE Prophylaxis VTE Prophylaxis Intervention: other Lines/Catheters [facility] Saline Lock Urinary Cath still in place: No Assessment/Plan Assessment/Plan --Left finger infection possibel recurrent OM of left finger - Per ID -Acute Kidney inury on CKD due to Prerenal azotemia and Infection - Per Nephrology -h/o OM of R 2nd finger s/p amputation at proximal phalanx neck, and h/o OM of L 3rd finger s/p amputation at middle and distal phalanges - DM causing low proteinuric CKD from Diabetic nephropathy - Glycemic control -h/o ESRD, was on HD - s/p renal transplant in 2009 (on tacrolimus 3mg bid, mycophenolate 540 mg bid, prednisone 5 mg daily), mild renal insufficiency at baseline - rheumatoid arthritis - chronic HCV infection - HTN - dyslipidemia - h/o polysubstance and IV drug use. - h/o pernicious anemia. -h/o erosive esophagitis and gastritis Plan of care dR Maier HPI/ROS Admit Date/Time Admit Date/Time Aug 08, 2017 at 16:53 ROS Eyes: no complaints ENT: no complaints Respiratory: no complaints Cardiovascular: no complaints Gastrointestinal: no complaints Genitourinary: no complaints Musculoskeletal: other (finger pain left ) Skin: no complaints Neurologic: no complaints Lymphatic: no complaints Psychological: no complaints Immunologic: no complaints PMH/Family/Social Past Medical History Medical History: diabetes, high cholesterol, hypertension, other (Recurrent left finger OM ) Past Surgical History Past Surgical Hx: other (kidnety transplant surgery . left finger surgery ) Social History Alcohol Use: none Smoking Status: Former smoker Drug Use: none Exam/Review of Systems Vital Signs Vitals Vital Signs Date Time Temp Pulse Resp B/P Pulse Ox O2 Delivery O2 Flow Rate FiO2 08/09/17 13:46 136/63 08/09/17 07:28 97.9 60 18 98 08/08/17 18:19 Room Air 08/08/17 18:18 21 Intake and Output 08/08/17 08/08/17 08/09/17 15:00 23:00 07:00 Intake Total 460 ml 100 ml Output Total 1000 ml Balance 460 ml -900 ml Exam Constitutional: alert, oriented Psych: nl mood/affect Respiratory: clear to auscultation, normal air movement Cardiovascular: nl pulses, regular rate and rhythm Gastrointestinal: non-tender, soft Musculoskeletal: nl extremities to inspection Labs Result Diagram: 08/09/1752508/09/17525 Medications Medications Current Medications Clonidine (Catapres) 0.1 mg Q4H PRN PO ELEVATED BLOOD PRESSURE Last administered on 08/09/17 11:25; Admin Dose 0.1 MG; Start 08/08/17 at 21:00 Insulin Glargine (Lantus) 5 unit BID SC Last administered on 08/09/17 09:11; Admin Dose 5 UNIT; Start 08/08/17 at 21:25 Metoprolol Tartrate (Lopressor) 50 mg BID PO Last administered on 08/09/17 08: 43; Admin Dose 50 MG; Start 08/08/17 at 21:26 Mycophenolate Sodium (Myfortic) 540 mg BID PO Last administered on 08/09/17 08 :44; Admin Dose 540 MG; Start 08/08/17 at 22:00 Prednisone (Prednisone) 5 mg DAILY PO Last administered on 08/09/17 08:42; Admin Dose 5 MG; Start 08/09/17 at 09:00 Tacrolimus (Prograf) 3 mg BID PO Last administered on 08/09/17 08:52; Admin Dose 3 MG; Start 08/08/17 at 21:00 Diagnostic Test (Pha) (Accu-Chek) 1 ea 02 XX ; Start 08/09/17 at 02:00 Miscellaneous Information 1 ea NOTE XX ; Start 08/08/17 at 21:30 Glucose (Glutose) 15 gm Q15M PRN PO DECREASED GLUCOSE; Start 08/08/17 at 21:30 Glucose (Glutose) 22.5 gm Q15M PRN PO DECREASED GLUCOSE; Start 08/08/17 at 21: 30 Dextrose (D50w Syringe) 25 ml Q15M PRN IV DECREASED GLUCOSE; Start 08/08/17 at 21:30 Dextrose (D50w Syringe) 50 ml Q15M PRN IV DECREASED GLUCOSE; Start 08/08/17 at 21:30 Glucagon (Glucagen) 1 mg Q15M PRN IM DECREASED GLUCOSE; Start 08/08/17 at 21:30 Glucose 15 gm 15 gm Q15M PRN BUCCAL DECREASED GLUCOSE; Start 08/08/17 at 21:30 Daptomycin/Sodium Chloride (Cubicin/NS) 100 ml @ 200 mls/hr Q24H IVPB Last administered on 08/09/17 00:57; Admin Dose 200 MLS/HR; Start 08/09/17 at 00:00 Acetaminophen/ Hydrocodone Bitart ([place] (7.5-325)) 1 tab Q4H PRN PO PAIN LEVEL 4-7 Last administered on 08/09/17 15:41; Admin Dose 1 TAB; Start at 09:30 Amlodipine Besylate (Norvasc) 5 mg DAILY PO Last administered on 08/09/17 10: 45; Admin Dose 5 MG; Start 08/09/17 at 09:30 Pantoprazole 40 mg 40 mg DAILY@06 PO ; Start 08/10/17 at 10:00 Sodium Chloride 1,000 ml @ 70 mls/hr [id number] IV Last administered on 12:39; Admin Dose 70 MLS/HR; Start 08/09/17 at 12:00; Stop 08/10/17 at 02: 17 Piperacillin Sod/ Tazobactam Sod (Zosyn 2.25gm/ 50ml (Pmx)) 50 ml @ 100 mls/hr Q8 IVPB Last administered on 08/09/17 14:24; Admin Dose 100 MLS/HR; Start 08/09/17 at 14:30 EILEEN COBURN Aug 09, 2017 16:57
--- NOTE | 2017-08-09 16:58 | PN ---
Date/Time of Note Date/Time of Note DATE: 08/09/17 TIME: 16:57 Assessment/Plan Lines/Catheters IV Catheter Type (from Nrsg): Saline Lock Urinary Cath still in place: No Subjective 24 Hr Interval Summary Free Text/Dictation Awaiting for MRI darrin mahmood staff Exam/Review of Systems Vital Signs Vitals Vital Signs Date Time Temp Pulse Resp B/P Pulse Ox O2 Delivery O2 Flow Rate FiO2 08/09/17 13:46 136/63 08/09/17 07:28 97.9 60 18 98 08/08/17 18:19 Room Air 08/08/17 18:18 21 Intake and Output 08/08/17 08/08/17 08/09/17 15:00 23:00 07:00 Intake Total 460 ml 100 ml Output Total 1000 ml Balance 460 ml -900 ml Results Result Diagram: 08/09/17 0526 08/09/17 0526 Results 24 hrs Laboratory Tests Test 08/08/17 17:45 08/08/17 20:06 08/08/17 20:28 08/08/17 22:42 Sodium Level 136 Potassium Level 5.9 H Chloride Level 107 Carbon Dioxide Level 25 Anion Gap 10 Blood Urea Nitrogen 31 H Creatinine 1.50 H Glucose Level 249 H Lactic Acid Level 1.5 2.0 Calcium Level 9.7 Troponin I 0.024 Bedside Glucose 179 Hemoglobin A1c 7.1 H Test 08/09/17 05:26 08/09/17 08:40 08/09/17 12:37 White Blood Count 3.7 L Red Blood Count 4.49 L Hemoglobin 15.4 Hematocrit 46.9 Mean Corpuscular Volume 104.5 H Mean Corpuscular Hemoglobin 34.3 H Mean Corpuscular Hemoglobin Concent 32.8 Red Cell Distribution Width 12.4 Platelet Count 146 Mean Platelet Volume 10.9 H Neutrophils % 63.8 Lymphocytes % 19.6 Monocytes % 12.8 H Eosinophils % 2.5 Basophils % 0.8 Nucleated Red Blood Cells % 0.0 Neutrophils # 2.3 Lymphocytes # 0.7 L Monocytes # 0.5 Eosinophils # 0.1 Basophils # 0.0 Nucleated Red Blood Cells # 0.0 Erythrocyte Sedimentation Rate 4 Sodium Level 142 Potassium Level 4.5 Chloride Level 110 Carbon Dioxide Level 24 Anion Gap 13 Blood Urea Nitrogen 28 H Creatinine 1.59 H Glucose Level 110 # Calcium Level 9.7 Bedside Glucose 92 130 Medications Medications Current Medications Clonidine (Catapres) 0.1 mg Q4H PRN PO ELEVATED BLOOD PRESSURE Last administered on 08/09/17 11:25; Admin Dose 0.1 MG; Start 08/08/17 at 21:00 Insulin Glargine (Lantus) 5 unit BID SC Last administered on 08/09/17 09:11; Admin Dose 5 UNIT; Start 08/08/17 at 21:25 Metoprolol Tartrate (Lopressor) 50 mg BID PO Last administered on 08/09/17 08: 43; Admin Dose 50 MG; Start 08/08/17 at 21:26 Mycophenolate Sodium (Myfortic) 540 mg BID PO Last administered on 08/09/17 08 :44; Admin Dose 540 MG; Start 08/08/17 at 22:00 Prednisone (Prednisone) 5 mg DAILY PO Last administered on 08/09/17 08:42; Admin Dose 5 MG; Start 08/09/17 at 09:00 Tacrolimus (Prograf) 3 mg BID PO Last administered on 08/09/17 08:52; Admin Dose 3 MG; Start 08/08/17 at 21:00 Diagnostic Test (Pha) (Accu-Chek) 1 ea 02 XX ; Start 08/09/17 at 02:00 Miscellaneous Information 1 ea NOTE XX ; Start 08/08/17 at 21:30 Glucose (Glutose) 15 gm Q15M PRN PO DECREASED GLUCOSE; Start 08/08/17 at 21:30 Glucose (Glutose) 22.5 gm Q15M PRN PO DECREASED GLUCOSE; Start 08/08/17 at 21: 30 Dextrose (D50w Syringe) 25 ml Q15M PRN IV DECREASED GLUCOSE; Start 08/08/17 at 21:30 Dextrose (D50w Syringe) 50 ml Q15M PRN IV DECREASED GLUCOSE; Start 08/08/17 at 21:30 Glucagon (Glucagen) 1 mg Q15M PRN IM DECREASED GLUCOSE; Start 08/08/17 at 21:30 Glucose 15 gm 15 gm Q15M PRN BUCCAL DECREASED GLUCOSE; Start 08/08/17 at 21:30 Daptomycin/Sodium Chloride (Cubicin/NS) 100 ml @ 200 mls/hr Q24H IVPB Last administered on 08/09/17 00:57; Admin Dose 200 MLS/HR; Start 08/09/17 at 00:00 Acetaminophen/ Hydrocodone Bitart ([place] (7.5-325)) 1 tab Q4H PRN PO PAIN LEVEL 4-7 Last administered on 08/09/17 15:41; Admin Dose 1 TAB; Start at 09:30 Amlodipine Besylate (Norvasc) 5 mg DAILY PO Last administered on 08/09/17 10: 45; Admin Dose 5 MG; Start 08/09/17 at 09:30 Pantoprazole 40 mg 40 mg DAILY@06 PO ; Start 08/10/17 at 10:00 Sodium Chloride 1,000 ml @ 70 mls/hr [id number] IV Last administered on 12:39; Admin Dose 70 MLS/HR; Start 08/09/17 at 12:00; Stop 08/10/17 at 02: 17 Piperacillin Sod/ Tazobactam Sod (Zosyn 2.25gm/ 50ml (Pmx)) 50 ml @ 100 mls/hr Q8 IVPB Last administered on 08/09/17 14:24; Admin Dose 100 MLS/HR; Start 08/09/17 at 14:30 EILEEN COBURN Aug 09, 2017 16:58
[2017-08-09 20:35] VITALS: BP 171/75; RESP 18
[2017-08-10] MEDS: ACCU-CHEK XX SCH (01:33)
[2017-08-10] MEDS ORDERED: VANCOMYCIN 1 GM in NS 250 ML IVPB SCH (03:00)
[2017-08-10] MEDS: PIPER-TAZO 2.25 GM (PMX) 50 ML IVPB SCH ×3 (05:18→21:29)
[2017-08-10] MEDS: HYDROCODONE/APAP (7.5/325) TAB PO PRN ×3 (05:18→19:46)
[2017-08-10 06:17] LABS: CREATININE 1.57 mg/dl (0.61-1.24)
[2017-08-10 08:13] VITALS: BP 122/56; PULSE 50; RESP 18
[2017-08-10] MEDS: INSULIN ASPART [NOVOLOG] 3 ML PEN SC SCH ×4 (08:25→20:38)
[2017-08-10] MEDS: INSULIN GLARGINE [LANtus] 3 ML PEN SC SCH ×2 (08:40→20:40)
[2017-08-10] MEDS: predniSONE 5 MG TAB PO SCH (08:44)
[2017-08-10] MEDS: AMLODIPINE 5 MG TAB PO SCH (08:44)
[2017-08-10] MEDS: MYCOPHENOLATE (SR) 180 MG TAB PO SCH ×2 (08:45→20:32)
[2017-08-10] MEDS: TACROLIMUS 0.5 MG CAP PO SCH ×2 (08:45→20:33)
[2017-08-10] MEDS: METOPROLOL 50 MG TAB PO SCH ×2 (08:46→20:31)
[2017-08-10] MEDS: PANTOPRAZOLE (EC) 40 MG TAB PO SCH (11:08)
--- NOTE | 2017-08-10 12:04 | CONS ---
Date/Time of Note Date/Time of Note DATE: 08/10/17 TIME: 12:03 Assessment/Plan Assessment/Plan Chief Complaint/Hosp Course 56 yo male with DM and s/p renal transplant in 2009 (on tacrolimus 3mg bid, mycophenolate 540 mg bid, prednisone 5 mg daily), rheumatoid arthritis and HCV infection. Pt has h/o OM of R 2nd finger s/p amputation at proximal phalanx neck , and h/o OM of L 3rd finger s/p amputation at middle and distal phalanges. Pt was readmitted on 08/08/2017 due to pain in his R 4th finger and L 2nd finger. Pt denies purulence. 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 XR showed periosteal reaction at the tip of R 3rd distal phalanx, suspicious for OM, cortical irregularity at the tuft of L 2nd distal phalanx with overlying soft tissue defect, suggesting early OM. Pt is receiving daptomycin and cefepime. Pt reports less stiffness and pain of the effected fingers. pt had a Creatinine of 1.6 on admission, BP stable, awaiting MRI of finger to be done, renal has been consulted for DESHAUN on CKD and management of immunosuppression. Problems: Additional Assessment/Plan 1. Acute Kidney inury on CKD due to Prerenal azotemia and Infection 2. Left finger infection possibel recurrent OM of left finger 3.h/o OM of R 2nd finger s/p amputation at proximal phalanx neck, and h/o OM of L 3rd finger s/p amputation at middle and distal phalanges 4. 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 h/o ESRD, was on HD - s/p renal transplant in 2009 (on tacrolimus 3mg bid, mycophenolate 540 mg bid, prednisone 5 mg daily), mild renal insufficiency at baseline 6. rheumatoid arthritis 7. chronic HCV infection 8. HTN 9. dyslipidemia 10. h/o polysubstance and IV drug use. 11. h/o pernicious anemia. 12. h/o erosive esophagitis and gastritis Plan: pt has previously had a full CKD work up - no need to repeat it S/p 1 liter IVF NS, Now Cr 1.58 stable Monitor Cr and electrolytes and replace as needed IV abx as per ID Continue current Immunosuppression for kidney transplant,( tacrolimus 3mg bid, mycophenolate 540 mg bid, prednisone 5 mg daily) pt has no signs and symptoms of tracrolimus toxicity, so we will monitor it. Progral level is ordered with AM labs tomorrow Consultation Date/Type/Reason Admit Date/Time Aug 08, 2017 at 16:53 Initial Consult Date 08/09/17 Type of Consultation: NEPHROLOGY Referring Provider: LUPE KAPLAN MD 24 HR Interval Summary Free Text/Dictation Cr 1.58 stable, pt is on IV Abx as per ID, on Immunosuppression Exam/Review of Systems Vital Signs Vitals Vital Signs Date Time Temp Pulse Resp B/P Pulse Ox O2 Delivery O2 Flow Rate FiO2 08/10/17 08:13 98.2 50 18 122/56 97 Room Air 08/08/17 18:18 21 Intake and Output 08/09/17 08/09/17 08/10/17 15:00 23:00 07:00 Intake Total 50 ml 1510 ml 780 ml Output Total 400 ml Balance 50 ml 1510 ml 380 ml Exam Constitutional: alert Psych: no complaints Head: normocephalic Eyes: nl conjunctiva ENMT: nl external ears & nose, nl lips & teeth, nl nasal mucosa & septum Neck: non-tender, supple Respiratory: clear to auscultation, normal air movement Cardiovascular: nl pulses, regular rate and rhythm Gastrointestinal: non-tender, soft Musculoskeletal: other (left finger swelling possible abscess vs OM ) Extremities: normal pulses 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: JACKET PREPARER II-XII intact, nl mental status, nl speech, nl strength Lymph: nl lymph nodes Results Result Diagram: 08/09/17 0526 08/10/17 0507 Results 24 hrs Laboratory Tests Test 08/09/17 12:37 08/09/17 17:44 08/09/17 21:08 08/10/17 05:07 Bedside Glucose 130 233 H 167 Blood Urea Nitrogen 25 H Creatinine 1.57 H Creatine Kinase 29 Test 08/10/17 08:08 Bedside Glucose 148 Medications Medications Current Medications Clonidine (Catapres) 0.1 mg Q4H PRN PO ELEVATED BLOOD PRESSURE Last administered on 08/10/17 05:26; Admin Dose 0.1 MG; Start 08/08/17 at 21:00 Insulin Glargine (Lantus) 5 unit BID SC Last administered on 08/10/17 08:40; Admin Dose 5 UNIT; Start 08/08/17 at 21:25 Metoprolol Tartrate (Lopressor) 50 mg BID PO Last administered on 08/09/17 08: 43; Admin Dose 50 MG; Start 08/08/17 at 21:26 Mycophenolate Sodium (Myfortic) 540 mg BID PO Last administered on 08/10/17 08 :45; Admin Dose 540 MG; Start 08/08/17 at 22:00 Prednisone (Prednisone) 5 mg DAILY PO Last administered on 08/10/17 08:44; Admin Dose 5 MG; Start 08/09/17 at 09:00 Tacrolimus (Prograf) 3 mg BID PO Last administered on 08/10/17 08:45; Admin Dose 3 MG; Start 08/08/17 at 21:00 Diagnostic Test (Pha) (Accu-Chek) 1 ea 02 XX ; Start 08/09/17 at 02:00 Miscellaneous Information 1 ea NOTE XX ; Start 08/08/17 at 21:30 Glucose (Glutose) 15 gm Q15M PRN PO DECREASED GLUCOSE; Start 08/08/17 at 21:30 Glucose (Glutose) 22.5 gm Q15M PRN PO DECREASED GLUCOSE; Start 08/08/17 at 21: 30 Dextrose (D50w Syringe) 25 ml Q15M PRN IV DECREASED GLUCOSE; Start 08/08/17 at 21:30 Dextrose (D50w Syringe) 50 ml Q15M PRN IV DECREASED GLUCOSE; Start 08/08/17 at 21:30 Glucagon (Glucagen) 1 mg Q15M PRN IM DECREASED GLUCOSE; Start 08/08/17 at 21:30 Glucose 15 gm 15 gm Q15M PRN BUCCAL DECREASED GLUCOSE; Start 08/08/17 at 21:30 Daptomycin/Sodium Chloride (Cubicin/NS) 100 ml @ 200 mls/hr Q24H IVPB Last administered on 08/09/17 23:45; Admin Dose 200 MLS/HR; Start 08/09/17 at 00:00 Acetaminophen/ Hydrocodone Bitart ([place] (7.5-325)) 1 tab Q4H PRN PO PAIN LEVEL 4-7 Last administered on 08/10/17 05:18; Admin Dose 1 TAB; Start at 09:30 Amlodipine Besylate (Norvasc) 5 mg DAILY PO Last administered on 08/10/17 08: 44; Admin Dose 5 MG; Start 08/09/17 at 09:30 Pantoprazole 40 mg 40 mg DAILY@06 PO Last administered on 08/10/17 11:08; Admin Dose 40 MG; Start 08/10/17 at 10:00 Piperacillin Sod/ Tazobactam Sod (Zosyn 2.25gm/ 50ml (Pmx)) 50 ml @ 100 mls/hr Q8 IVPB Last administered on 08/10/17 05:18; Admin Dose 100 MLS/HR; Start 08/09/17 at 14:30 SHAKA SIMPSON MD Aug 10, 2017 12:04
--- NOTE | 2017-08-10 12:05 | CONS ---
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 (XR showed periosteal reaction at the tip of R 3rd distal phalanx, suspicious for OM) and L 2nd fingertip (XR showed cortical irregularity at the tuft of L 2nd distal phalanx with overlying soft tissue defect, suggesting early OM) - h/o OM of R 2nd finger s/p amputation at proximal phalanx neck, and h/o OM of L 3rd finger s/p amputation at middle and distal phalanges - DM - h/o ESRD, was on HD - s/p renal transplant in 2009 (on tacrolimus 3mg bid, mycophenolate 540 mg bid , prednisone 5 mg daily), mild renal insufficiency at baseline - rheumatoid arthritis - chronic HCV infection - HTN - dyslipidemia - h/o polysubstance and IV drug use. - h/o pernicious anemia. - h/o hyperparathyroidism. - h/o erosive esophagitis and gastritis recommendations - will review the result of MRI (not done yet) - I recommend pip/tazo and daptomycin (08/09/2017-) 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 Problems: Consultation Date/Type/Reason Admit Date/Time Aug 08, 2017 at 16:53 Initial Consult Date 08/09/17 Type of Consultation: ID Referring Provider: LUPE KAPLAN MD 24 HR Interval Summary Constitutional: improved, no complaints Detailed Summary Eyes: no complaints ENT: no complaints Respiratory: no complaints Cardiovascular: no complaints Gastrointestinal: no complaints Genitourinary: no complaints Musculoskeletal: other (pain of L 2nd and R 3rd fingers is rated at 3), restricted range of motion (although less restructed than before), No swelling Neurologic: no complaints, other (Pt reports intact sensation of fingers) Exam/Review of Systems Vital Signs Vitals Vital Signs Date Time Temp Pulse Resp B/P Pulse Ox O2 Delivery O2 Flow Rate FiO2 08/10/17 08:13 98.2 50 18 122/56 97 Room Air 08/08/17 18:18 21 Intake and Output 08/09/17 08/09/17 08/10/17 15:00 23:00 07:00 Intake Total 50 ml 1510 ml 780 ml Output Total 400 ml Balance 50 ml 1510 ml 380 ml Exam Constitutional: alert, oriented, well developed Psych: nl mood/affect, no complaints Head: atraumatic, normocephalic Eyes: nl conjunctiva, nl lids ENMT: nl external ears & nose, nl nasal mucosa & septum Neck: supple Respiratory: clear to auscultation, normal air movement Cardiovascular: nl pulses, regular rate and rhythm Gastrointestinal: non-tender, soft Musculoskeletal: other (s/p amputation of R 2nd and L 3rd finger tips. R 3rd and L 2nd finger tips are dry and TTP) Extremities: No edema 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: [employer] II-XII intact, nl mental status Results Result Diagram: 08/09/17 0526 08/10/17 0507 Results 24 hrs Laboratory Tests Test 08/09/17 12:37 08/09/17 17:44 08/09/17 21:08 08/10/17 05:07 Bedside Glucose 130 233 H 167 Blood Urea Nitrogen 25 H Creatinine 1.57 H Creatine Kinase 29 Test 08/10/17 08:08 Bedside Glucose 148 Medications Medications Current Medications Clonidine (Catapres) 0.1 mg Q4H PRN PO ELEVATED BLOOD PRESSURE Last administered on 08/10/17 05:26; Admin Dose 0.1 MG; Start 08/08/17 at 21:00 Insulin Glargine (Lantus) 5 unit BID SC Last administered on 08/10/17 08:40; Admin Dose 5 UNIT; Start 08/08/17 at 21:25 Metoprolol Tartrate (Lopressor) 50 mg BID PO Last administered on 08/09/17 08: 43; Admin Dose 50 MG; Start 08/08/17 at 21:26 Mycophenolate Sodium (Myfortic) 540 mg BID PO Last administered on 08/10/17 08 :45; Admin Dose 540 MG; Start 08/08/17 at 22:00 Prednisone (Prednisone) 5 mg DAILY PO Last administered on 08/10/17 08:44; Admin Dose 5 MG; Start 08/09/17 at 09:00 Tacrolimus (Prograf) 3 mg BID PO Last administered on 08/10/17 08:45; Admin Dose 3 MG; Start 08/08/17 at 21:00 Diagnostic Test (Pha) (Accu-Chek) 1 ea 02 XX ; Start 08/09/17 at 02:00 Miscellaneous Information 1 ea NOTE XX ; Start 08/08/17 at 21:30 Glucose (Glutose) 15 gm Q15M PRN PO DECREASED GLUCOSE; Start 08/08/17 at 21:30 Glucose (Glutose) 22.5 gm Q15M PRN PO DECREASED GLUCOSE; Start 08/08/17 at 21: 30 Dextrose (D50w Syringe) 25 ml Q15M PRN IV DECREASED GLUCOSE; Start 08/08/17 at 21:30 Dextrose (D50w Syringe) 50 ml Q15M PRN IV DECREASED GLUCOSE; Start 08/08/17 at 21:30 Glucagon (Glucagen) 1 mg Q15M PRN IM DECREASED GLUCOSE; Start 08/08/17 at 21:30 Glucose 15 gm 15 gm Q15M PRN BUCCAL DECREASED GLUCOSE; Start 08/08/17 at 21:30 Daptomycin/Sodium Chloride (Cubicin/NS) 100 ml @ 200 mls/hr Q24H IVPB Last administered on 08/09/17 23:45; Admin Dose 200 MLS/HR; Start 08/09/17 at 00:00 Acetaminophen/ Hydrocodone Bitart ([place] (7.5-325)) 1 tab Q4H PRN PO PAIN LEVEL 4-7 Last administered on 08/10/17 05:18; Admin Dose 1 TAB; Start at 09:30 Amlodipine Besylate (Norvasc) 5 mg DAILY PO Last administered on 08/10/17 08: 44; Admin Dose 5 MG; Start 08/09/17 at 09:30 Pantoprazole 40 mg 40 mg DAILY@06 PO Last administered on 08/10/17 11:08; Admin Dose 40 MG; Start 08/10/17 at 10:00 Piperacillin Sod/ Tazobactam Sod (Zosyn 2.25gm/ 50ml (Pmx)) 50 ml @ 100 mls/hr Q8 IVPB Last administered on 08/10/17 05:18; Admin Dose 100 MLS/HR; Start 08/09/17 at 14:30 MAGO VAIL M.D. Aug 10, 2017 12:05
[2017-08-10 14:03] VITALS: BP 149/61; PULSE 60; RESP 18
--- NOTE | 2017-08-10 14:25 | PN ---
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 - h/o pernicious anemia. -h/o erosive esophagitis and gastritis Plan of care dR Maier Subjective 24 Hr Interval Summary Free Text/Dictation going for MRI- both hand, afebrile, no new events reported Respiratory: no complaints Cardiovascular: no complaints Gastrointestinal: no complaints Musculoskeletal: bone/joint pain Skin: no complaints Neurologic: no complaints Exam/Review of Systems Vital Signs Vitals Vital Signs Date Time Temp Pulse Resp B/P Pulse Ox O2 Delivery O2 Flow Rate FiO2 08/10/17 14:03 97.3 60 18 149/61 99 Room Air 08/08/17 18:18 21 Intake and Output 08/09/17 08/09/17 08/10/17 15:00 23:00 07:00 Intake Total 50 ml 1510 ml 780 ml Output Total 400 ml Balance 50 ml 1510 ml 380 ml Exam Constitutional: alert, oriented Respiratory: clear to auscultation, normal air movement Gastrointestinal: non-tender, soft Musculoskeletal: other Extremities: normal pulses 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: nl speech Results Result Diagram: 08/09/17 0526 08/10/17 0507 Results 24 hrs Laboratory Tests Test 08/09/17 17:44 08/09/17 21:08 08/10/17 05:07 08/10/17 08:08 Bedside Glucose 233 H 167 148 Blood Urea Nitrogen 25 H Creatinine 1.57 H Creatine Kinase 29 Test 08/10/17 12:16 Bedside Glucose 154 Medications Medications Current Medications Clonidine (Catapres) 0.1 mg Q4H PRN PO ELEVATED BLOOD PRESSURE Last administered on 08/10/17 05:26; Admin Dose 0.1 MG; Start 08/08/17 at 21:00 Insulin Glargine (Lantus) 5 unit BID SC Last administered on 08/10/17 08:40; Admin Dose 5 UNIT; Start 08/08/17 at 21:25 Metoprolol Tartrate (Lopressor) 50 mg BID PO Last administered on 08/09/17 08: 43; Admin Dose 50 MG; Start 08/08/17 at 21:26 Mycophenolate Sodium (Myfortic) 540 mg BID PO Last administered on 08/10/17 08 :45; Admin Dose 540 MG; Start 08/08/17 at 22:00 Prednisone (Prednisone) 5 mg DAILY PO Last administered on 08/10/17 08:44; Admin Dose 5 MG; Start 08/09/17 at 09:00 Tacrolimus (Prograf) 3 mg BID PO Last administered on 08/10/17 08:45; Admin Dose 3 MG; Start 08/08/17 at 21:00 Diagnostic Test (Pha) (Accu-Chek) 1 ea 02 XX ; Start 08/09/17 at 02:00 Miscellaneous Information 1 ea NOTE XX ; Start 08/08/17 at 21:30 Glucose (Glutose) 15 gm Q15M PRN PO DECREASED GLUCOSE; Start 08/08/17 at 21:30 Glucose (Glutose) 22.5 gm Q15M PRN PO DECREASED GLUCOSE; Start 08/08/17 at 21: 30 Dextrose (D50w Syringe) 25 ml Q15M PRN IV DECREASED GLUCOSE; Start 08/08/17 at 21:30 Dextrose (D50w Syringe) 50 ml Q15M PRN IV DECREASED GLUCOSE; Start 08/08/17 at 21:30 Glucagon (Glucagen) 1 mg Q15M PRN IM DECREASED GLUCOSE; Start 08/08/17 at 21:30 Glucose 15 gm 15 gm Q15M PRN BUCCAL DECREASED GLUCOSE; Start 08/08/17 at 21:30 Daptomycin/Sodium Chloride (Cubicin/NS) 100 ml @ 200 mls/hr Q24H IVPB Last administered on 08/09/17 23:45; Admin Dose 200 MLS/HR; Start 08/09/17 at 00:00 Acetaminophen/ Hydrocodone Bitart ([place] (7.5-325)) 1 tab Q4H PRN PO PAIN LEVEL 4-7 Last administered on 08/10/17 12:17; Admin Dose 1 TAB; Start at 09:30 Amlodipine Besylate (Norvasc) 5 mg DAILY PO Last administered on 08/10/17 08: 44; Admin Dose 5 MG; Start 08/09/17 at 09:30 Pantoprazole 40 mg 40 mg DAILY@06 PO Last administered on 08/10/17 11:08; Admin Dose 40 MG; Start 08/10/17 at 10:00 Piperacillin Sod/ Tazobactam Sod (Zosyn 2.25gm/ 50ml (Pmx)) 50 ml @ 100 mls/hr Q8 IVPB Last administered on 08/10/17 05:18; Admin Dose 100 MLS/HR; Start 08/09/17 at 14:30 EILEEN COBURN Aug 10, 2017 14:25
[2017-08-10 20:00] VITALS: BP 189/79; RESP 18
[2017-08-11] MEDS: DAPTOMYCIN 250 MG in SOD CHLORIDE 0.9% 100 ML IVPB SCH ×2 (00:36→23:19)
--- NOTE | 2017-08-11 01:34 | HP ---
DATE OF ADMISSION: 08/08/2017 CHIEF COMPLAINT AND HISTORY OF PRESENT ILLNESS: The patient is a 56-year-old gentleman well known t o me from previous admissions. The patient has history of hypertension, diabetes, status post renal transplant in 2009, hepatitis C, came to ER with a history of pain and swelling of tip of left inde x finger and right 3rd finger. The patient also has superficial ulceration. The patient also has h istory of previous amputation of right index finger and left middle finger in the past. Patient did not have any fever or chills. No reported recent trauma. No reported chest pain, shortness of hayley ath. Patient does say that he has a history of melenic stool and vomiting. The patient stated that he has been losing weight and in fact, his weight from back in May 2017 was 52 kg, now he is down to 44 kg. The patient stated that he was supposed to see a GI doctor as an outpatient, but could no t see due to referral issues. The patient was seen in the ER and underwent right hand x-ray, which revealed increased periosteal of the third distal phalanx, possibly representing osteomyelitis . The patient is status post amputation of the right second finger at the 2nd proximal phalanx neck . The patient also had soft tissue swelling along the fingers. Left hand x-ray is pending. The patel olea is being admitted for further evaluation and management. REVIEW OF SYSTEMS: A total of 10 systems reviewed. The patient does have occasional upper abdomina l discomfort and had intermittent vomiting and recently had melenic stool. In addition, patient has pain in the left index finger and right 3rd finger. No leg edema. No shortness of breath. No hea dache, dizziness, syncope. Rest of review of systems unremarkable. PAST MEDICAL HISTORY: As stated above. ALLERGIES: MAGNESIUM WHICH CAUSES NUMBNESS AND HOT FLASHES. FAMILY HISTORY: Mother in her 70s due to CVA and had history of diabetes and chronic kidney di sease, and was on hemodialysis. Father at age 76 due to NV with a history of diabetes. SOCIAL HISTORY: The patient is , has 3 children, on disability. No smoking. No alcohol abu se. History of polysubstance abuse and IV drug abuse in the past, specifically cocaine and marijuan a. PAST SURGICAL HISTORY: The patient is status post right knee transplant in 2009 at [facility], st atus post left upper extremity AV graft, status post repair of left upper extremity graft, pseudoane urysm and thrombectomy in 2009, status post amputation of the left middle finger and right index fin elsa. ALLERGIES: MAGNESIUM. PHYSICAL EXAMINATION: GENERAL: The patient to be conscious, awake, alert. VITAL SIGNS: On the day of admission, temperature 97.5, pulse 66, respirations 18, blood pressure 1 30/67, O2 saturation 96% on room air. HEENT: Atraumatic, normocephalic. Conjunctivae and lids normal. Oropharynx clear. NECK: Supple. No mass, no thyromegaly. CHEST: Fairly clear. No use of accessory muscles. CARDIOVASCULAR: S1, S2 normal, no murmur. ABDOMEN: Soft, nontender. Bowel sounds present. EXTREMITIES: No leg edema. Pedal pulses palpable. SKIN: Without acute rash. Left index finger has tenderness, mild swelling and erythema and superfi cial ulceration. Right 3rd fingertip also has superficial ulceration and local tenderness. NEUROLOGIC: The patient is awake, alert, fairly oriented with no gross focal deficit. LABORATORY DATA: On the day of admission, WBC 3.4, hemoglobin 16.4, platelets 147. Chemistry upon admission, sodium 140, potassium 6, BUN 32, creatinine 1.6, glucose 218, calcium 10.1, bilirubin 0.4 , AST 67, ALT 57, alkaline phosphatase is 103, albumin 4.3. IMPRESSION: 1. Right 3rd finger distal osteomyelitis. Left index finger distal phalanx also suggests early ost eomyelitis. Extensive vascular calcification also noted. 2. Hypertension. 3. Diabetes mellitus. 4. Weight loss, abdominal pain and melenic stools. 5. Diabetes mellitus. 6. End-stage renal disease status post kidney transplant. 7. Hyperkalemia. 8. Hepatitis C. 9. Weight loss. PLAN: Patient admitted on medical floor. Patient will be started on IV daptomycin and IV cefepime. The patient will receive treatment for hyperkalemia and nephrology consult from Dr. Hector Chand and I D consult, Dr. Johnson has been requested. We will put him on sliding scale and Lantus. We will c ontinue metoprolol and antirejection medication. We will get a GI consult from Dr. Hartley regarding weight loss, melena and history of intermittent vomiting and abdominal pain. Meanwhile, we will ob tain abdominal CT scan. The patient was recently seen by Dr. Hartley for pancreatitis, and in the pa st had upper endoscopy which revealed diffuse distal esophagitis. We will empirically start patient on Protonix. I will hold off on any antiplatelet or anticoagulant. Further recommendations will d epend on patient's hospital course. Dictated By: LUPE DUARTE/NAK[place] Conf#: [id number] DID#: [id number]
[2017-08-11] MEDS: ACCU-CHEK XX SCH (02:00)
[2017-08-11 02:56] VITALS: BP 161/85; RESP 20
[2017-08-11] MEDS: PIPER-TAZO 2.25 GM (PMX) 50 ML IVPB SCH ×3 (05:28→22:43)
[2017-08-11] MEDS: HYDROCODONE/APAP (7.5/325) TAB PO PRN ×4 (05:29→22:47)
[2017-08-11] MEDS: PANTOPRAZOLE (EC) 40 MG TAB PO SCH (05:29)
[2017-08-11 05:50] LABS: BASOPHILS % 0.7 % (0.0-2.0); EOSINOPHILS # 0.1 10^3/ul (0.0-0.5); EOSINOPHILS % 2.1 % (0.0-7.0); HEMATOCRIT 48.6 % (42.0-52.0); HEMOGLOBIN 15.9 g/dl (14.0-18.0); MEAN CORPUSCULAR HEMOGLOBIN 33.1 pg (29.0-33.0); MEAN CORPUSCULAR HGB CONC 32.7 g/dl (32.0-37.0); MEAN CORPUSCULAR VOLUME 101.3 fl (82.0-101.0); MEAN PLATELET VOLUME 10.5 fl (7.4-10.4); MONOCYTE # 0.4 10^3/ul (0.3-0.9); MONOCYTES % 9.5 % (0.0-11.0); NEUTROPHIL # 2.7 10^3/ul (1.6-7.5); NEUTROPHILS % 64.5 % (39.0-77.0); PLATELET COUNT 150 10^3/UL (140-415); RED CELL DISTRIBUTION WIDTH 12.2 % (11.5-14.5); WHITE BLOOD COUNT 4.2 10^3/ul (4.8-10.8)
[2017-08-11 06:09] LABS: INR 1.1; PROTIME 14.2 Sec (12.2-14.2); PT RATIO 1.1
[2017-08-11 06:10] LABS: PARTIAL THROMBOPLASTIN TIME 28.4 Sec (25.0-35.0)
[2017-08-11 06:22] LABS: ALBUMIN 3.2 g/dl (3.3-4.9); ALBUMIN/GLOBULIN RATIO 0.88; BILIRUBIN,INDIRECT 0.4 mg/dl (0-1.1); BILIRUBIN,TOTAL 0.4 mg/dl (0.2-1.3); CREATININE 1.62 mg/dl (0.61-1.24); POTASSIUM 4.7 mmol/L (3.5-5.1); TOTAL PROTEIN 6.8 g/dl (6.1-8.1)
[2017-08-11 06:26] LABS: CALCIUM 9.8 mg/dl (8.4-10.2); CREATININE 1.6 mg/dl (0.61-1.24); POTASSIUM 4.8 mmol/L (3.5-5.1)
[2017-08-11 07:23] VITALS: BP 160/92; RESP 18
--- NOTE | 2017-08-11 07:47 | RADRPT ---
PROCEDURE: MRI OF THE LEFT HAND. CLINICAL INDICATION: Second digit osteomyelitis. Left hand. TECHNIQUE: Multiple MR pulse sequences in multiple planes were obtained. Images were interpreted o high-resolution PACS system. COMPARISON: DR HAND 08/08/2017; MR 12/24/2014 FINDINGS: There is a skin and subcutaneous wound overlying the second distal phalanx seen on the coronal seque nce image 5. There is subcutaneous edema and skin thickening in this region, in keeping with celluli tis. No evidence for a drainable fluid collection. Surgical changes seen at the third flexor tendons . There is abnormal T1 bone marrow signal infiltration and edema throughout the second distal phalanx of cortical destruction consistent with osteomyelitis. There has been amputation of the third middle and distal phalanges. The third proximal phalanx demonstrate normal bone marrow signal. Bone marrow signal elsewhere in the hand is also normal without additional foci of osteomyelitis. IMPRESSION: 1. Evidence of osteomyelitis at the second distal phalanx with overlying wound/ulcer. 2. Findings of cellulitis about the second distal phalanx without evidence of a drainable fluid col lection. RPTAT: HH .Isiah Sims MD, MD Date Time Electronically viewed and signed by .Isiah Sims MD, on 08/11/2017 07:47 .d/
--- NOTE | 2017-08-11 07:54 | RADRPT ---
PROCEDURE: MRI OF THE RIGHT HAND. CLINICAL INDICATION: Clinical concern is for osteomyelitis of the ring finger. TECHNIQUE: Multiple MR pulse sequences in multiple planes were obtained. Images were interpreted o high-resolution PACS system. COMPARISON: MR 08/10/2017; DR CORTES 08/08/2017 FINDINGS: There is subcutaneous edema surrounding the fourth middle and distal phalanges with mild skin thicke ronel, compatible with cellulitis based on the clinical scenario. No drainable fluid collection is id entified. There are surgical changes at the second flexor tendons noting abrupt blunting of the seco nd flexor digitorum profundus, either surgery related or remote tear. The remaining tendons are main tained. The patient has undergone prior amputation of the second middle and distal phalanges. There is no ev idence for osteomyelitis throughout the hand. There is skin and subcutaneous induration surrounding the first distal phalanx volarly either from scarring or prior infection. IMPRESSION: 1. Subcutaneous edema and skin thickening over the distal fourth phalanx, compatible with celluliti s. 2. No evidence for osteomyelitis at this time. 3. Prior amputation of the second middle and distal phalanges noting surgical changes at the flexor tendons. RPTAT: HH .Isiah Sims MD, Date Time Electronically viewed and signed by .Isiah Sims MD, MD on 08/11/2017 07:53 .d/
[2017-08-11] MEDS: INSULIN ASPART [NOVOLOG] 3 ML PEN SC SCH ×4 (07:58→20:33)
[2017-08-11] MEDS: INSULIN GLARGINE [LANtus] 3 ML PEN SC SCH (08:12)
[2017-08-11] MEDS: TACROLIMUS 0.5 MG CAP PO SCH ×2 (08:18→20:29)
[2017-08-11] MEDS: predniSONE 5 MG TAB PO SCH (08:18)
[2017-08-11] MEDS: METOPROLOL 50 MG TAB PO SCH ×2 (08:20→20:29)
[2017-08-11] MEDS: AMLODIPINE 5 MG TAB PO SCH (08:39)
[2017-08-11] MEDS: MYCOPHENOLATE (SR) 180 MG TAB PO SCH ×2 (08:42→20:28)
[2017-08-11 10:45] VITALS: BP 132/83; PULSE 58
--- NOTE | 2017-08-11 11:09 | CONS ---
DATE OF ADMISSION: 08/08/2017 DATE OF CONSULTATION: TYPE OF CONSULTATION: Gastrointestinal. HISTORY OF PRESENT ILLNESS: The patient is a 56-year-old male with a history of diabetes mellitus; renal transplant in 2009; on Tacrolimus 3 mg b.i.d., Mycophenolate 540 mg b.i.d., Prednisone; rheuma toid arthritis; history of hepatitis C virus infection who was admitted to the hospital for osteomye litis of the 2nd finger, status post amputation; history of ____ left 3rd finger, status post-amputa tion; now is readmitted with the pain in the right 4th finger and the left 2nd finger. GI consult h as been called for history of anemia and significant weight loss. The patient also complains of shun n in the epigastric area. PAST MEDICAL HISTORY: Diabetes mellitus, end-stage renal disease, status post renal transplant, on immunosuppressive medication, rheumatoid arthritis, chronic hepatitis C viral infection, hypertensio n, dyslipidemia, history of polysubstance and IV drug abuse, hypoparathyroidism, history of pernicio us anemia. PHYSICAL EXAMINATION GENERAL: Thin built, definitely lost weight, alert, awake, not in distress. CARDIOVASCULAR: No murmur, gallop or click. LUNGS: Clear. ABDOMEN: Benign. EXTREMITIES: No edema. CENTRAL NERVOUS SYSTEM: Grossly within normal limits. LABORATORY DATA: Hematocrit dropped from 50 to 46, but is stable; creatine is 1.57; glucose is 154. Hand x-ray was done on 08/08/2017 which shows tip of the 3rd distal phalanx possible osteomyelitis . IMPRESSION: 1. Osteomyelitis of the finger. 2. Diabetes mellitus. 3. Status post renal transplant, on immunosuppressive medication. 4. Hepatitis C virus infection in the past. 5. Epigastric pain for months. 6. Significant weight loss. The patient definitely looks cachectic. 7. History of melena which stopped 5 days ago. PLAN: At this point is to continue present care. We will continue PPI, monitor H and H and the pat ient will undergo upper endoscopy when more stable. Dictated By: UCHE LEVINE/NTS Conf#: [id number] DID#: [id number] CC: LUPE KAPLAN MD;*EndCC*
--- NOTE | 2017-08-11 11:38 | CONS ---
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 (XR showed periosteal reaction at the tip of R 3rd distal phalanx, suspicious for OM, MRI showed cellulitis of distal R 4th phalanx, without OM) and L 2nd fingertip (XR showed cortical irregularity at the tuft of L 2nd distal phalanx with overlying soft tissue defect, suggesting early OM, MRI showed OM at L 2nd distal phalanx with, cellulitis about L 2nd distal phalanx without drainable fluid collection.) - h/o OM of R 2nd finger s/p amputation at proximal phalanx neck, and h/o OM of L 3rd finger s/p amputation at middle and distal phalanges - DM - h/o ESRD, was on HD - s/p renal transplant in 2009 (on tacrolimus 3mg bid, mycophenolate 540 mg bid , prednisone 5 mg daily), mild renal insufficiency at baseline - rheumatoid arthritis - chronic HCV infection - HTN - dyslipidemia - h/o polysubstance and IV drug use. - h/o pernicious anemia. - h/o hyperparathyroidism. - h/o erosive esophagitis and gastritis - myalgia recommendations - continue pip/tazo and daptomycin (08/09/2017-). I recommend 6 weeks of IV antibiotics for his recurrent OM. Need to monitor CK while Pt's on daptomycin. CK was 28 on 08/10/2017. Will check again tomorrow. If his myalgia worsens, will change dapto - I recommend hand surgery consult 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 Problems: Consultation Date/Type/Reason Admit Date/Time Aug 08, 2017 at 16:53 Initial Consult Date 08/09/17 Type of Consultation: ID Referring Provider: LUPE KAPLAN MD 24 HR Interval Summary Constitutional: no complaints Detailed Summary Eyes: no complaints ENT: no complaints Respiratory: no complaints Cardiovascular: no complaints Gastrointestinal: no complaints Genitourinary: no complaints Musculoskeletal: bone/joint pain (chronic arthritis pain of the body, myalgia) , restricted range of motion (L 2nd) Skin: skin lesions (swelling of skin of L 2nd distal phalanx, no pus) Neurologic: no complaints Exam/Review of Systems Vital Signs Vitals Vital Signs Date Time Temp Pulse Resp B/P Pulse Ox O2 Delivery O2 Flow Rate FiO2 08/11/17 10:45 58 132/83 08/11/17 07:23 98.2 18 99 08/10/17 14:03 Room Air 08/08/17 18:18 21 Intake and Output 08/10/17 08/10/17 08/11/17 15:00 23:00 07:00 Intake Total 1060 ml 550 ml Output Total 100 ml Balance 1060 ml 450 ml Results Result Diagram: 08/11/17 0454 08/11/17 0454 Results 24 hrs Laboratory Tests Test 08/10/17 12:16 08/10/17 17:18 08/10/17 20:36 08/11/17 04:54 Bedside Glucose 154 252 H 178 White Blood Count 4.2 L Red Blood Count 4.80 Hemoglobin 15.9 Hematocrit 48.6 Mean Corpuscular Volume 101.3 H Mean Corpuscular Hemoglobin 33.1 H Mean Corpuscular Hemoglobin Concent 32.7 Red Cell Distribution Width 12.2 Platelet Count 150 Mean Platelet Volume 10.5 H Neutrophils % 64.5 Lymphocytes % 23.0 Monocytes % 9.5 Eosinophils % 2.1 Basophils % 0.7 Nucleated Red Blood Cells % 0.0 Neutrophils # 2.7 Lymphocytes # 1.0 Monocytes # 0.4 Eosinophils # 0.1 Basophils # 0.0 Nucleated Red Blood Cells # 0.0 Prothrombin Time 14.2 Prothrombin Time Ratio 1.1 INR International Normalized Ratio 1.10 Activated Partial Thromboplast Time 28.4 Sodium Level 139 Potassium Level 4.8 Chloride Level 109 Carbon Dioxide Level 22 Anion Gap 13 Blood Urea Nitrogen 21 H Creatinine 1.60 H Glucose Level 118 Calcium Level 9.8 Magnesium Level 1.6 L Total Bilirubin 0.4 Direct Bilirubin 0.00 Indirect Bilirubin 0.4 Aspartate Amino Transf (AST/SGOT) 46 Alanine Aminotransferase (ALT/SGPT) 46 Alkaline Phosphatase 73 Total Protein 6.8 Albumin 3.2 L Globulin 3.60 H Albumin/Globulin Ratio 0.88 Test 08/11/17 07:57 Bedside Glucose 97 Medications Medications Current Medications Clonidine (Catapres) 0.1 mg Q4H PRN PO ELEVATED BLOOD PRESSURE Last administered on 08/11/17t 02:14; Admin Dose 0.1 MG; Start 08/08/17 at 21:00 Insulin Glargine (Lantus) 5 unit BID SC Last administered on 08/11/17 08:12; Admin Dose 5 UNIT; Start 08/08/17 at 21:25 Metoprolol Tartrate (Lopressor) 50 mg BID PO Last administered on 08/11/17 08: 20; Admin Dose 50 MG; Start 08/08/17 at 21:26 Mycophenolate Sodium (Myfortic) 540 mg BID PO Last administered on 08/11/17 08 :42; Admin Dose 540 MG; Start 08/08/17 at 22:00 Prednisone (Prednisone) 5 mg DAILY PO Last administered on 08/11/17 08:18; Admin Dose 5 MG; Start 08/09/17 at 09:00 Tacrolimus (Prograf) 3 mg BID PO Last administered on 08/11/17 08:18; Admin Dose 3 MG; Start 08/08/17 at 21:00 Diagnostic Test (Pha) (Accu-Chek) 1 ea 02 XX ; Start 08/09/17 at 02:00 Miscellaneous Information 1 ea NOTE XX ; Start 08/08/17 at 21:30 Glucose (Glutose) 15 gm Q15M PRN PO DECREASED GLUCOSE; Start 08/08/17 at 21:30 Glucose (Glutose) 22.5 gm Q15M PRN PO DECREASED GLUCOSE; Start 08/08/17 at 21: 30 Dextrose (D50w Syringe) 25 ml Q15M PRN IV DECREASED GLUCOSE; Start 08/08/17 at 21:30 Dextrose (D50w Syringe) 50 ml Q15M PRN IV DECREASED GLUCOSE; Start 08/08/17 at 21:30 Glucagon (Glucagen) 1 mg Q15M PRN IM DECREASED GLUCOSE; Start 08/08/17 at 21:30 Glucose 15 gm 15 gm Q15M PRN BUCCAL DECREASED GLUCOSE; Start 08/08/17 at 21:30 Daptomycin/Sodium Chloride (Cubicin/NS) 100 ml @ 200 mls/hr Q24H IVPB Last administered on 08/11/17 00:36; Admin Dose 200 MLS/HR; Start 08/09/17 at 00:00 Acetaminophen/ Hydrocodone Bitart ([place] (7.5-325)) 1 tab Q4H PRN PO PAIN LEVEL 4-7 Last administered on 08/11/17 10:44; Admin Dose 1 TAB; Start at 09:30 Amlodipine Besylate (Norvasc) 5 mg DAILY PO Last administered on 08/11/17 08: 39; Admin Dose 5 MG; Start 08/09/17 at 09:30 Pantoprazole 40 mg 40 mg DAILY@06 PO Last administered on 08/11/17 05:29; Admin Dose 40 MG; Start 08/10/17 at 10:00 Piperacillin Sod/ Tazobactam Sod (Zosyn 2.25gm/ 50ml (Pmx)) 50 ml @ 100 mls/hr Q8 IVPB Last administered on 08/11/17 05:28; Admin Dose 100 MLS/HR; Start 08/09/17 at 14:30 MAGO VAIL M.D. Aug 11, 2017 11:38
--- NOTE | 2017-08-11 14:46 | PN ---
Date/Time of Note Date/Time of Note DATE: 08/11/17 TIME: 14:38 Assessment/Plan VTE Prophylaxis VTE Prophylaxis Intervention: SCD's Lines/Catheters IV Catheter Type (from [facility]): [facility] [facility] Urinary Cath still in place: No Assessment/Plan Chief Complaint/Hosp Course Patient with episode of hypoglycemia, will hold Lantus, continue NovoLog per mild algorithm sliding scale. Problems: Assessment/Plan - Right 3rd finger distal osteomyelitis. Left index finger distal phalanx also suggests early osteomyelitis. Continue antibiotics per ID. Dr. Awan is following infection disease consultation. - Weight loss, abdominal pain and melenic stools. Continue PPI. Dr Hartley is following in in gastroenterology consultation. Plan for endoscopy when patient is more stable - End-stage renal disease, status post kidney transplant in 2009. Continued on antirejection therapy with baseline creatinine is about 1.5. - Hypertension. Continue Norvasc and metoprolol. - Diabetes mellitus. Continue NovoLog per mild algorithm sliding scale. - Hepatitis C. Further recommendations based on clinical course. Plan of care discussed with Dr. Maier. Exam/Review of Systems Vital Signs Vitals Vital Signs Date Time Temp Pulse Resp B/P Pulse Ox O2 Delivery O2 Flow Rate FiO2 08/11/17 10:45 58 132/83 08/11/17 07:23 98.2 18 99 08/10/17 14:03 Room Air 08/08/17 18:18 21 Intake and Output 08/10/17 08/10/17 08/11/17 15:00 23:00 07:00 Intake Total 1060 ml 550 ml Output Total 100 ml Balance 1060 ml 450 ml Exam Constitutional: alert, oriented Head: normocephalic Neck: supple Respiratory: normal air movement Cardiovascular: nl pulses Gastrointestinal: non-tender, soft Extremities: normal pulses, other (swelling L 2nd distal phalanx) Results Result Diagram: 08/11/17 0454 08/11/17 0454 Results 24 hrs Laboratory Tests Test 08/10/17 17:18 08/10/17 20:36 08/11/17 04:54 08/11/17 07:57 Bedside Glucose 252 H 178 97 White Blood Count 4.2 L Red Blood Count 4.80 Hemoglobin 15.9 Hematocrit 48.6 Mean Corpuscular Volume 101.3 H Mean Corpuscular Hemoglobin 33.1 H Mean Corpuscular Hemoglobin Concent 32.7 Red Cell Distribution Width 12.2 Platelet Count 150 Mean Platelet Volume 10.5 H Neutrophils % 64.5 Lymphocytes % 23.0 Monocytes % 9.5 Eosinophils % 2.1 Basophils % 0.7 Nucleated Red Blood Cells % 0.0 Neutrophils # 2.7 Lymphocytes # 1.0 Monocytes # 0.4 Eosinophils # 0.1 Basophils # 0.0 Nucleated Red Blood Cells # 0.0 Prothrombin Time 14.2 Prothrombin Time Ratio 1.1 INR International Normalized Ratio 1.10 Activated Partial Thromboplast Time 28.4 Sodium Level 139 Potassium Level 4.8 Chloride Level 109 Carbon Dioxide Level 22 Anion Gap 13 Blood Urea Nitrogen 21 H Creatinine 1.60 H Glucose Level 118 Calcium Level 9.8 Magnesium Level 1.6 L Total Bilirubin 0.4 Direct Bilirubin 0.00 Indirect Bilirubin 0.4 Aspartate Amino Transf (AST/SGOT) 46 Alanine Aminotransferase (ALT/SGPT) 46 Alkaline Phosphatase 73 Total Protein 6.8 Albumin 3.2 L Globulin 3.60 H Albumin/Globulin Ratio 0.88 Test 08/11/17 12:03 08/11/17 13:47 08/11/17 14:14 Bedside Glucose 192 67 L 135 Medications Medications Current Medications Clonidine (Catapres) 0.1 mg Q4H PRN PO ELEVATED BLOOD PRESSURE Last administered on 08/11/17 02:14; Admin Dose 0.1 MG; Start 08/08/17 at 21:00 Insulin Glargine (Lantus) 5 unit BID SC Last administered on 08/11/17 08:12; Admin Dose 5 UNIT; Start 08/08/17 at 21:25 Metoprolol Tartrate (Lopressor) 50 mg BID PO Last administered on 08/11/17 08: 20; Admin Dose 50 MG; Start 08/08/17 at 21:26 Mycophenolate Sodium (Myfortic) 540 mg BID PO Last administered on 08/11/17 08 :42; Admin Dose 540 MG; Start 08/08/17 at 22:00 Prednisone (Prednisone) 5 mg DAILY PO Last administered on 08/11/17 08:18; Admin Dose 5 MG; Start 08/09/17 at 09:00 Tacrolimus (Prograf) 3 mg BID PO Last administered on 08/11/17 08:18; Admin Dose 3 MG; Start 08/08/17 at 21:00 Diagnostic Test (Pha) (Accu-Chek) 1 ea 02 XX ; Start 08/09/17 at 02:00 Miscellaneous Information 1 ea NOTE XX ; Start 08/08/17 at 21:30 Glucose (Glutose) 15 gm Q15M PRN PO DECREASED GLUCOSE; Start 08/08/17 at 21:30 Glucose (Glutose) 22.5 gm Q15M PRN PO DECREASED GLUCOSE; Start 08/08/17 at 21: 30 Dextrose (D50w Syringe) 25 ml Q15M PRN IV DECREASED GLUCOSE; Start 08/08/17 at 21:30 Dextrose (D50w Syringe) 50 ml Q15M PRN IV DECREASED GLUCOSE; Start 08/08/17 at 21:30 Glucagon (Glucagen) 1 mg Q15M PRN IM DECREASED GLUCOSE; Start 08/08/17 at 21:30 Glucose 15 gm 15 gm Q15M PRN BUCCAL DECREASED GLUCOSE; Start 08/08/17 at 21:30 Daptomycin/Sodium Chloride (Cubicin/NS) 100 ml @ 200 mls/hr Q24H IVPB Last administered on 08/11/17 00:36; Admin Dose 200 MLS/HR; Start 08/09/17 at 00:00 Acetaminophen/ Hydrocodone Bitart ([place] (7.5-325)) 1 tab Q4H PRN PO PAIN LEVEL 4-7 Last administered on 08/11/17 10:44; Admin Dose 1 TAB; Start at 09:30 Amlodipine Besylate (Norvasc) 5 mg DAILY PO Last administered on 08/11/17 08: 39; Admin Dose 5 MG; Start 08/09/17 at 09:30 Pantoprazole 40 mg 40 mg DAILY@06 PO Last administered on 08/11/17 05:29; Admin Dose 40 MG; Start 08/10/17 at 10:00 Piperacillin Sod/ Tazobactam Sod (Zosyn 2.25gm/ 50ml (Pmx)) 50 ml @ 100 mls/hr Q8 IVPB Last administered on 08/11/17 14:17; Admin Dose 100 MLS/HR; Start 08/09/17 at 14:30 LETI RODRIGUEZ Aug 11, 2017 14:46 LETI RODRIGUEZ Aug 11, 2017 14:46
[2017-08-11 15:07] VITALS: BP 137/80; RESP 18
--- NOTE | 2017-08-11 16:44 | CONS ---
Date/Time of Note Date/Time of Note DATE: 08/11/17 TIME: 16:43 Assessment/Plan Assessment/Plan Additional Assessment/Plan IMPRESSION: 1. Osteomyelitis of the finger. 2. Diabetes mellitus. 3. Status post renal transplant, on immunosuppressive medication. 4. Hepatitis C virus infection in the past. 5. Epigastric pain for months. 6. Significant weight loss. The patient definitely looks cachectic. 7. History of melena which stopped 5 days ago. 8. Cachexia PLAN: At this point is to continue present care. We will continue PPI, monitor H and H and the patient will undergo upper endoscopy in a.m. to find out the cause of his persistent epigastric pain melanotic stool and weight loss. Discussed with the patient and is agreed for the procedure Consultation Date/Type/Reason Admit Date/Time Aug 08, 2017 at 16:53 Initial Consult Date 08/09/17 Type of Consultation: ID Referring Provider: LUPE KAPLAN MD 24 HR Interval Summary Free Text/Dictation Patient does complain of epigastric pain Constitutional: improved Exam/Review of Systems Vital Signs Vitals Vital Signs Date Time Temp Pulse Resp B/P Pulse Ox O2 Delivery O2 Flow Rate FiO2 08/11/17 15:07 97.4 64 18 137/80 98 08/10/17 14:03 Room Air 08/08/17 18:18 21 Intake and Output 08/10/17 08/10/17 08/11/17 15:00 23:00 07:00 Intake Total 1060 ml 550 ml Output Total 100 ml Balance 1060 ml 450 ml Exam Constitutional: alert, oriented, well developed Psych: nl mood/affect, no complaints Head: atraumatic, normocephalic Eyes: EOMI, PERRL, nl conjunctiva, nl lids, nl sclera ENMT: nl external ears & nose, nl lips & teeth, nl nasal mucosa & septum Neck: non-tender, supple Respiratory: clear to auscultation, normal air movement Cardiovascular: nl pulses, regular rate and rhythm Gastrointestinal: nl liver, spleen, non-tender, soft Musculoskeletal: nl extremities to inspection, nl gait and stance Extremities: normal pulses 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: SAFETY REPRESENTATIVE II-XII intact, nl mental status, nl speech, nl strength Skin: nl turgor, No rash or lesions Lymph: nl lymph nodes Results Result Diagram: 08/11/17 0454 08/11/17 0454 Results 24 hrs Laboratory Tests Test 08/10/17 17:18 08/10/17 20:36 08/11/17 04:54 08/11/17 07:57 Bedside Glucose 252 H 178 97 White Blood Count 4.2 L Red Blood Count 4.80 Hemoglobin 15.9 Hematocrit 48.6 Mean Corpuscular Volume 101.3 H Mean Corpuscular Hemoglobin 33.1 H Mean Corpuscular Hemoglobin Concent 32.7 Red Cell Distribution Width 12.2 Platelet Count 150 Mean Platelet Volume 10.5 H Neutrophils % 64.5 Lymphocytes % 23.0 Monocytes % 9.5 Eosinophils % 2.1 Basophils % 0.7 Nucleated Red Blood Cells % 0.0 Neutrophils # 2.7 Lymphocytes # 1.0 Monocytes # 0.4 Eosinophils # 0.1 Basophils # 0.0 Nucleated Red Blood Cells # 0.0 Prothrombin Time 14.2 Prothrombin Time Ratio 1.1 INR International Normalized Ratio 1.10 Activated Partial Thromboplast Time 28.4 Sodium Level 139 Potassium Level 4.8 Chloride Level 109 Carbon Dioxide Level 22 Anion Gap 13 Blood Urea Nitrogen 21 H Creatinine 1.60 H Glucose Level 118 Calcium Level 9.8 Magnesium Level 1.6 L Total Bilirubin 0.4 Direct Bilirubin 0.00 Indirect Bilirubin 0.4 Aspartate Amino Transf (AST/SGOT) 46 Alanine Aminotransferase (ALT/SGPT) 46 Alkaline Phosphatase 73 Total Protein 6.8 Albumin 3.2 L Globulin 3.60 H Albumin/Globulin Ratio 0.88 Test 08/11/17 12:03 08/11/17 13:47 08/11/17 14:14 08/11/17 14:35 Bedside Glucose 192 67 L 135 161 Medications Medications Current Medications Clonidine (Catapres) 0.1 mg Q4H PRN PO ELEVATED BLOOD PRESSURE Last administered on 08/11/17 02:14; Admin Dose 0.1 MG; Start 08/08/17 at 21:00 Insulin Glargine (Lantus) 5 unit BID SC Last administered on 08/11/17 08:12; Admin Dose 5 UNIT; Start 08/08/17 at 21:25; Status Future Hold Metoprolol Tartrate (Lopressor) 50 mg BID PO Last administered on 08/11/17 08: 20; Admin Dose 50 MG; Start 08/08/17 at 21:26 Mycophenolate Sodium (Myfortic) 540 mg BID PO Last administered on 08/11/17 08 :42; Admin Dose 540 MG; Start 08/08/17 at 22:00 Prednisone (Prednisone) 5 mg DAILY PO Last administered on 08/11/17 08:18; Admin Dose 5 MG; Start 08/09/17 at 09:00 Tacrolimus (Prograf) 3 mg BID PO Last administered on 08/11/17 08:18; Admin Dose 3 MG; Start 08/08/17 at 21:00 Diagnostic Test (Pha) (Accu-Chek) 1 ea 02 XX ; Start 08/09/17 at 02:00 Miscellaneous Information 1 ea NOTE XX ; Start 08/08/17 at 21:30 Glucose (Glutose) 15 gm Q15M PRN PO DECREASED GLUCOSE; Start 08/08/17 at 21:30 Glucose (Glutose) 22.5 gm Q15M PRN PO DECREASED GLUCOSE; Start 08/08/17 at 21: 30 Dextrose (D50w Syringe) 25 ml Q15M PRN IV DECREASED GLUCOSE; Start 08/08/17 at 21:30 Dextrose (D50w Syringe) 50 ml Q15M PRN IV DECREASED GLUCOSE; Start 08/08/17 at 21:30 Glucagon (Glucagen) 1 mg Q15M PRN IM DECREASED GLUCOSE; Start 08/08/17 at 21:30 Glucose 15 gm 15 gm Q15M PRN BUCCAL DECREASED GLUCOSE; Start 08/08/17 at 21:30 Daptomycin/Sodium Chloride (Cubicin/NS) 100 ml @ 200 mls/hr Q24H IVPB Last administered on 08/11/17 00:36; Admin Dose 200 MLS/HR; Start 08/09/17 at 00:00 Acetaminophen/ Hydrocodone Bitart ([place] (7.5-325)) 1 tab Q4H PRN PO PAIN LEVEL 4-7 Last administered on 08/11/17 10:44; Admin Dose 1 TAB; Start at 09:30 Amlodipine Besylate (Norvasc) 5 mg DAILY PO Last administered on 08/11/17 08: 39; Admin Dose 5 MG; Start 08/09/17 at 09:30 Pantoprazole 40 mg 40 mg DAILY@06 PO Last administered on 08/11/17 05:29; Admin Dose 40 MG; Start 08/10/17 at 10:00 Piperacillin Sod/ Tazobactam Sod (Zosyn 2.25gm/ 50ml (Pmx)) 50 ml @ 100 mls/hr Q8 IVPB Last administered on 08/11/17t 14:17; Admin Dose 100 MLS/HR; Start 08/09/17 at 14:30 UCHE ZEPEDA MD Aug 11, 2017 16:44
--- NOTE | 2017-08-11 16:48 | CONS ---
Date/Time of Note Date/Time of Note DATE: 08/11/17 TIME: 16:46 Assessment/Plan Assessment/Plan Additional Assessment/Plan 1. Acute Kidney inury on CKD due to Prerenal azotemia and Infection 2. Left finger infection possibel recurrent OM of left finger 3.h/o OM of R 2nd finger s/p amputation at proximal phalanx neck, and h/o OM of L 3rd finger s/p amputation at middle and distal phalanges 4. 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 h/o ESRD, was on HD - s/p renal transplant in 2009 (on tacrolimus 3mg bid, mycophenolate 540 mg bid, prednisone 5 mg daily), mild renal insufficiency at baseline 6. rheumatoid arthritis 7. chronic HCV infection 8. HTN 9. dyslipidemia 10. h/o polysubstance and IV drug use. 11. h/o pernicious anemia. 12. h/o erosive esophagitis and gastritis Plan: pt has previously had a full CKD work up - no need to repeat it Cr 1.6, stable in last few days Monitor Cr and electrolytes and replace as needed IV abx as per ID Continue current Immunosuppression for kidney transplant,( tacrolimus 3mg bid, mycophenolate 540 mg bid, prednisone 5 mg daily) pt has no signs and symptoms of tracrolimus toxicity, so we will monitor it. Consultation Date/Type/Reason Admit Date/Time Aug 08, 2017 at 16:53 Initial Consult Date 08/09/17 Type of Consultation: NEPHROLOGY Referring Provider: LUPE KAPLAN MD 24 HR Interval Summary Free Text/Dictation Cr stable around 1.6, Other electrolytes normal Exam/Review of Systems Vital Signs Vitals Vital Signs Date Time Temp Pulse Resp B/P Pulse Ox O2 Delivery O2 Flow Rate FiO2 08/11/17 15:07 97.4 64 18 137/80 98 08/10/17 14:03 Room Air 08/08/17 18:18 21 Intake and Output 08/10/17 08/10/17 08/11/17 15:00 23:00 07:00 Intake Total 1060 ml 550 ml Output Total 100 ml Balance 1060 ml 450 ml Exam Constitutional: alert Psych: no complaints Head: normocephalic ENMT: nl external ears & nose Neck: non-tender, supple Respiratory: clear to auscultation, diminished breath sounds, normal air movement Cardiovascular: nl pulses, regular rate and rhythm Gastrointestinal: non-tender, soft Musculoskeletal: nl extremities to inspection, other ((left finger swelling possible abscess vs OM )) 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: EDITOR NEWS II-XII intact, nl mental status, nl speech Results Result Diagram: 08/11/17 0454 08/11/17 0454 Results 24 hrs Laboratory Tests Test 08/10/17 17:18 08/10/17 20:36 08/11/17 04:54 08/11/17 07:57 Bedside Glucose 252 H 178 97 White Blood Count 4.2 L Red Blood Count 4.80 Hemoglobin 15.9 Hematocrit 48.6 Mean Corpuscular Volume 101.3 H Mean Corpuscular Hemoglobin 33.1 H Mean Corpuscular Hemoglobin Concent 32.7 Red Cell Distribution Width 12.2 Platelet Count 150 Mean Platelet Volume 10.5 H Neutrophils % 64.5 Lymphocytes % 23.0 Monocytes % 9.5 Eosinophils % 2.1 Basophils % 0.7 Nucleated Red Blood Cells % 0.0 Neutrophils # 2.7 Lymphocytes # 1.0 Monocytes # 0.4 Eosinophils # 0.1 Basophils # 0.0 Nucleated Red Blood Cells # 0.0 Prothrombin Time 14.2 Prothrombin Time Ratio 1.1 INR International Normalized Ratio 1.10 Activated Partial Thromboplast Time 28.4 Sodium Level 139 Potassium Level 4.8 Chloride Level 109 Carbon Dioxide Level 22 Anion Gap 13 Blood Urea Nitrogen 21 H Creatinine 1.60 H Glucose Level 118 Calcium Level 9.8 Magnesium Level 1.6 L Total Bilirubin 0.4 Direct Bilirubin 0.00 Indirect Bilirubin 0.4 Aspartate Amino Transf (AST/SGOT) 46 Alanine Aminotransferase (ALT/SGPT) 46 Alkaline Phosphatase 73 Total Protein 6.8 Albumin 3.2 L Globulin 3.60 H Albumin/Globulin Ratio 0.88 Test 08/11/17 12:03 08/11/17 13:47 08/11/17 14:14 08/11/17 14:35 Bedside Glucose 192 67 L 135 161 Medications Medications Current Medications Clonidine (Catapres) 0.1 mg Q4H PRN PO ELEVATED BLOOD PRESSURE Last administered on 08/11/17 02:14; Admin Dose 0.1 MG; Start 08/08/17 at 21:00 Insulin Glargine (Lantus) 5 unit BID SC Last administered on 08/11/17 08:12; Admin Dose 5 UNIT; Start 08/08/17 at 21:25; Status Future Hold Metoprolol Tartrate (Lopressor) 50 mg BID PO Last administered on 08/11/17 08: 20; Admin Dose 50 MG; Start 08/08/17 at 21:26 Mycophenolate Sodium (Myfortic) 540 mg BID PO Last administered on 08/11/17 08 :42; Admin Dose 540 MG; Start 08/08/17 at 22:00 Prednisone (Prednisone) 5 mg DAILY PO Last administered on 08/11/17 08:18; Admin Dose 5 MG; Start 08/09/17 at 09:00 Tacrolimus (Prograf) 3 mg BID PO Last administered on 08/11/17 08:18; Admin Dose 3 MG; Start 08/08/17 at 21:00 Diagnostic Test (Pha) (Accu-Chek) 1 ea 02 XX ; Start 08/09/17 at 02:00 Miscellaneous Information 1 ea NOTE XX ; Start 08/08/17 at 21:30 Glucose (Glutose) 15 gm Q15M PRN PO DECREASED GLUCOSE; Start 08/08/17 at 21:30 Glucose (Glutose) 22.5 gm Q15M PRN PO DECREASED GLUCOSE; Start 08/08/17 at 21: 30 Dextrose (D50w Syringe) 25 ml Q15M PRN IV DECREASED GLUCOSE; Start 08/08/17 at 21:30 Dextrose (D50w Syringe) 50 ml Q15M PRN IV DECREASED GLUCOSE; Start 08/08/17 at 21:30 Glucagon (Glucagen) 1 mg Q15M PRN IM DECREASED GLUCOSE; Start 08/08/17 at 21:30 Glucose 15 gm 15 gm Q15M PRN BUCCAL DECREASED GLUCOSE; Start 08/08/17 at 21:30 Daptomycin/Sodium Chloride (Cubicin/NS) 100 ml @ 200 mls/hr Q24H IVPB Last administered on 08/11/17 00:36; Admin Dose 200 MLS/HR; Start 08/09/17 at 00:00 Acetaminophen/ Hydrocodone Bitart ([place] (7.5-325)) 1 tab Q4H PRN PO PAIN LEVEL 4-7 Last administered on 08/11/17 10:44; Admin Dose 1 TAB; Start at 09:30 Amlodipine Besylate (Norvasc) 5 mg DAILY PO Last administered on 08/11/17 08: 39; Admin Dose 5 MG; Start 08/09/17 at 09:30 Pantoprazole 40 mg 40 mg DAILY@06 PO Last administered on 08/11/17 05:29; Admin Dose 40 MG; Start 08/10/17 at 10:00 Piperacillin Sod/ Tazobactam Sod (Zosyn 2.25gm/ 50ml (Pmx)) 50 ml @ 100 mls/hr Q8 IVPB Last administered on 08/11/17 14:17; Admin Dose 100 MLS/HR; Start 08/09/17 at 14:30 SHAKA SIMPSON MD Aug 11, 2017 16:48
[2017-08-11 20:17] VITALS: BP 170/92; RESP 20
--- NOTE | 2017-08-11 20:43 | RADRPT ---
PROCEDURE: XR Chest. CLINICAL INDICATION: Preoperative. TECHNIQUE: Single frontal view. COMPARISON: 04/11/2017. FINDINGS: The lungs are clear. The heart size is normal. There is no pleural effusion or pneumothorax. Surgical clips are present in the neck IMPRESSION: 1. Prior neck surgery. 2. Otherwise normal chest x-ray. RPTAT: QQ .Arun Mora MD, MD Date Time Electronically viewed and signed by .Arun Mora MD, on 08/11/2017 20:42 .R/
[2017-08-12] VITALS (13 sets, daily range): BP systolic 100–176; BP diastolic 60–101; PULSE 48–68; RESP 14–34
[2017-08-12] MEDS: ACCU-CHEK XX SCH (02:00)
[2017-08-12] MEDS: PANTOPRAZOLE (EC) 40 MG TAB PO SCH (06:00)
[2017-08-12] MEDS: PIPER-TAZO 2.25 GM (PMX) 50 ML IVPB SCH ×3 (06:02→21:03)
[2017-08-12] MEDS: HYDROCODONE/APAP (7.5/325) TAB PO PRN ×3 (06:12→20:55)
[2017-08-12 06:23] LABS: WHITE BLOOD COUNT 5.7 10^3/ul (4.8-10.8)
[2017-08-12 06:24] LABS: BASOPHILS % 0.5 % (0.0-2.0); EOSINOPHILS # 0.1 10^3/ul (0.0-0.5); EOSINOPHILS % 1.2 % (0.0-7.0); HEMOGLOBIN 17.1 g/dl (14.0-18.0); LYMPHOCYTES # 1.1 10^3/ul (0.8-2.9); LYMPHOCYTES % 18.6 % (15.0-51.0); MEAN CORPUSCULAR HEMOGLOBIN 32.7 pg (29.0-33.0); MEAN CORPUSCULAR HGB CONC 32.3 g/dl (32.0-37.0); MEAN CORPUSCULAR VOLUME 101.3 fl (82.0-101.0); MEAN PLATELET VOLUME 10.8 fl (7.4-10.4); MONOCYTE # 0.6 10^3/ul (0.3-0.9); MONOCYTES % 9.9 % (0.0-11.0); NEUTROPHIL # 3.9 10^3/ul (1.6-7.5); NEUTROPHILS % 69.4 % (39.0-77.0); PLATELET COUNT 168 10^3/UL (140-415); RED BLOOD COUNT 5.23 10^6/ul (4.70-6.10); RED CELL DISTRIBUTION WIDTH 12.1 % (11.5-14.5)
[2017-08-12 06:53] LABS: CALCIUM 10.4 mg/dl (8.4-10.2); CREATININE 1.5 mg/dl (0.61-1.24)
[2017-08-12] MEDS: INSULIN ASPART [NOVOLOG] 3 ML PEN SC SCH ×4 (08:07→21:10)
[2017-08-12] MEDS: METOPROLOL 50 MG TAB PO SCH ×2 (08:27→21:00)
[2017-08-12] MEDS: predniSONE 5 MG TAB PO SCH (08:28)
[2017-08-12] MEDS: TACROLIMUS 0.5 MG CAP PO SCH ×2 (08:28→20:53)
[2017-08-12] MEDS: AMLODIPINE 5 MG TAB PO SCH (08:28)
[2017-08-12] MEDS: MYCOPHENOLATE (SR) 180 MG TAB PO SCH ×2 (08:28→20:54)
[2017-08-12] MEDS ORDERED: PROPOFOL 40 ML ONE (10:13)
[2017-08-12] MEDS ORDERED: FENTAnyl 50 MCG/ML VIAL ONE (10:13)
[2017-08-12] MEDS ORDERED: LIDOCAINE 100 MG SYRINGE ONE (10:13)
--- NOTE | 2017-08-12 10:31 | OPPN ---
Date/Time of Note Date/Time of Note DATE: 08/12/17 TIME: 10:29 Proc Note GI Procedure Date 08/12/17 Pre-procedure Diagnosis Weight loss epigastric pain and history of melanotic stool Post-procedure Diagnosis Severe gastritis, esophagitis Procedure Performed: Endoscopy Surgeon see signature line Bow Rehairer none Anesthesia Type: MAC Tourniquet Time none EBL none Transfusion required none Biopsy 1: 3 gastric biopsies, esophageal biopsy 1 Grafts/Implants none Tubes/Drains none Complication(s) none Pt Condition post procedure: stable Disposition: PACU Indications: persistent vomiting Operative\Procedure Findings EGD with biopsies Severe gastritis Erosive esophagitis Procedure Description See dictated report UCHE ZEPEDA MD Aug 12, 2017 10:31
[2017-08-12] MEDS ORDERED: ONDANSETRON 4 MG INJ IV PRN (11:30)
[2017-08-12] MEDS ORDERED: FENTAnyl 25 MCG IV PRN (11:30)
[2017-08-12] MEDS ORDERED: MIDAZOLAM IV PRN (11:30)
--- NOTE | 2017-08-12 14:33 | PN ---
Date/Time of Note Date/Time of Note DATE: 08/12/17 TIME: 14:29 Assessment/Plan VTE Prophylaxis VTE Prophylaxis Intervention: LMWH Lines/Catheters IV [facility]ter Type (from [facility] Peripheral IV Urinary Cath still in place: No Assessment/Plan Chief Complaint/Hosp Course Assessment/Plan - Right 3rd finger distal osteomyelitis. Left index finger distal phalanx also suggests early osteomyelitis. Continue antibiotics per ID. Dr. Awan is following infection disease consultation. - Weight loss, abdominal pain and melenic stools. Continue PPI. Dr Hartley is following in in gastroenterology consultation. Plan for endoscopy when patient is more stable - End-stage renal disease, status post kidney transplant in 2009. Continued on antirejection therapy with baseline creatinine is about 1.5. - Hypertension. Continue Norvasc and metoprolol. - Diabetes mellitus. Continue NovoLog per mild algorithm sliding scale. - Hepatitis C. Further recommendations based on clinical course. Plan of care discussed with Dr. Maier. Problems: Exam/Review of Systems Vital Signs Vitals Vital Signs Date Time Temp Pulse Resp B/P Pulse Ox O2 Delivery O2 Flow Rate FiO2 08/12/17 11:43 98.1 58 18 113/67 98 Room Air 08/08/17 18:18 21 Intake and Output 08/11/17 08/11/17 08/12/17 15:00 23:00 07:00 Intake Total 50 ml 420 ml 390 ml Output Total 600 ml 800 ml Balance 50 ml -180 ml -410 ml Exam Constitutional: alert, oriented Head: normocephalic Neck: supple Respiratory: normal air movement Cardiovascular: nl pulses Gastrointestinal: non-tender, soft Extremities: normal pulses, other (swelling L 2nd distal phalanx) Results Result Diagram: 08/12/17 0540 08/12/17 0540 Results 24 hrs Laboratory Tests Test 08/11/17 14:35 08/11/17 17:37 08/11/17 20:32 08/12/17 05:40 Bedside Glucose 161 181 174 White Blood Count 5.7 # Red Blood Count 5.23 Hemoglobin 17.1 Hematocrit 53.0 H Mean Corpuscular Volume 101.3 H Mean Corpuscular Hemoglobin 32.7 Mean Corpuscular Hemoglobin Concent 32.3 Red Cell Distribution Width 12.1 Platelet Count 168 Mean Platelet Volume 10.8 H Neutrophils % 69.4 Lymphocytes % 18.6 Monocytes % 9.9 Eosinophils % 1.2 Basophils % 0.5 Nucleated Red Blood Cells % 0.0 Neutrophils # 3.9 Lymphocytes # 1.1 Monocytes # 0.6 Eosinophils # 0.1 Basophils # 0.0 Nucleated Red Blood Cells # 0.0 Sodium Level 139 Potassium Level 5.0 Chloride Level 108 Carbon Dioxide Level 23 Anion Gap 13 Blood Urea Nitrogen 20 Creatinine 1.50 H Glucose Level 113 Calcium Level 10.4 H Creatine Kinase 25 Test 08/12/17 08:05 08/12/17 10:14 08/12/17 11:42 Bedside Glucose 113 104 94 Medications Medications Current Medications Clonidine (Catapres) 0.1 mg Q4H PRN PO ELEVATED BLOOD PRESSURE Last administered on 08/12/17 06:11; Admin Dose 0.1 MG; Start 08/08/17 at 21:00 Insulin Glargine (Lantus) 5 unit BID SC Last administered on 08/11/17 08:12; Admin Dose 5 UNIT; Start 08/08/17 at 21:25; Status Future Hold Metoprolol Tartrate (Lopressor) 50 mg BID PO Last administered on 08/12/17 08 :27; Admin Dose 50 MG; Start 08/08/17 at 21:26 Mycophenolate Sodium (Myfortic) 540 mg BID PO Last administered on 08/11/17 20 :28; Admin Dose 540 MG; Start 08/08/17 at 22:00 Prednisone (Prednisone) 5 mg DAILY PO Last administered on 08/11/17 08:18; Admin Dose 5 MG; Start 08/09/17 at 09:00 Tacrolimus (Prograf) 3 mg BID PO Last administered on 08/11/17 20:29; Admin Dose 3 MG; Start 08/08/17 at 21:00 Diagnostic Test (Pha) (Accu-Chek) 1 ea 02 XX ; Start 08/09/17 at 02:00 Miscellaneous Information 1 ea NOTE XX ; Start 08/08/17 at 21:30 Glucose (Glutose) 15 gm Q15M PRN PO DECREASED GLUCOSE; Start 08/08/17 at 21:30 Glucose (Glutose) 22.5 gm Q15M PRN PO DECREASED GLUCOSE; Start 08/08/17 at 21: 30 Dextrose (D50w Syringe) 25 ml Q15M PRN IV DECREASED GLUCOSE; Start 08/08/17 at 21:30 Dextrose (D50w Syringe) 50 ml Q15M PRN IV DECREASED GLUCOSE; Start 08/08/17 at 21:30 Glucagon (Glucagen) 1 mg Q15M PRN IM DECREASED GLUCOSE; Start 08/08/17 at 21:30 Glucose 15 gm 15 gm Q15M PRN BUCCAL DECREASED GLUCOSE; Start 08/08/17 at 21:30 Daptomycin/Sodium Chloride (Cubicin/NS) 100 ml @ 200 mls/hr Q24H IVPB Last administered on 08/11/17 23:19; Admin Dose 200 MLS/HR; Start 08/09/17 at 00:00 Acetaminophen/ Hydrocodone Bitart ([place] (7.5-325)) 1 tab Q4H PRN PO PAIN LEVEL 4-7 Last administered on 08/12/17 14:08; Admin Dose 1 TAB; Start at 09:30 Amlodipine Besylate (Norvasc) 5 mg DAILY PO Last administered on 08/12/17 08: 28; Admin Dose 5 MG; Start 08/09/17 at 09:30 Pantoprazole 40 mg 40 mg DAILY@06 PO Last administered on 08/11/17 05:29; Admin Dose 40 MG; Start 08/10/17 at 10:00 Piperacillin Sod/ Tazobactam Sod (Zosyn 2.25gm/ 50ml (Pmx)) 50 ml @ 100 mls/hr Q8 IVPB Last administered on 08/12/17 13:32; Admin Dose 100 MLS/HR; Start at 14:30 LETI RODRIGUEZ Aug 12, 2017 14:33
--- NOTE | 2017-08-12 17:13 | CONS ---
Date/Time of Note Date/Time of Note DATE: 08/12/17 TIME: 17:12 Assessment/Plan Assessment/Plan Additional Assessment/Plan 1. Acute Kidney inury on CKD due to Prerenal azotemia and Infection 2. Left finger infection possibel recurrent OM of left finger 3.h/o OM of R 2nd finger s/p amputation at proximal phalanx neck, and h/o OM of L 3rd finger s/p amputation at middle and distal phalanges 4. 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 h/o ESRD, was on HD - s/p renal transplant in 2009 (on tacrolimus 3mg bid, mycophenolate 540 mg bid, prednisone 5 mg daily), mild renal insufficiency at baseline 6. rheumatoid arthritis 7. chronic HCV infection 8. HTN 9. dyslipidemia 10. h/o polysubstance and IV drug use. 11. h/o pernicious anemia. 12. h/o erosive esophagitis and gastritis Plan: pt has previously had a full CKD work up - no need to repeat it Cr 1.5, K 5.0, stable in last few days Monitor Cr and electrolytes and replace as needed IV abx as per ID Continue current Immunosuppression for kidney transplant,( tacrolimus 3mg bid, mycophenolate 540 mg bid, prednisone 5 mg daily) pt has no signs and symptoms of tracrolimus toxicity, so we will monitor it. Consultation Date/Type/Reason Admit Date/Time Aug 08, 2017 at 16:53 Initial Consult Date 08/09/17 Type of Consultation: NEPHROLOGY Referring Provider: LUPE KAPLAN MD 24 HR Interval Summary Free Text/Dictation no acute events, getting IV abx Exam/Review of Systems Vital Signs Vitals Vital Signs Date Time Temp Pulse Resp B/P Pulse Ox O2 Delivery O2 Flow Rate FiO2 08/12/17 15:14 98.1 56 16 129/83 99 08/12/17 11:43 Room Air 08/08/17 18:18 21 Intake and Output 08/11/17 08/11/17 08/12/17 15:00 23:00 07:00 Intake Total 50 ml 420 ml 390 ml Output Total 600 ml 800 ml Balance 50 ml -180 ml -410 ml Results Result Diagram: 08/12/17 0540 08/12/17 0540 Results 24 hrs Laboratory Tests Test 08/11/17 17:37 08/11/17 20:32 08/12/17 05:40 08/12/17 08:05 Bedside Glucose 181 174 113 White Blood Count 5.7 # Red Blood Count 5.23 Hemoglobin 17.1 Hematocrit 53.0 H Mean Corpuscular Volume 101.3 H Mean Corpuscular Hemoglobin 32.7 Mean Corpuscular Hemoglobin Concent 32.3 Red Cell Distribution Width 12.1 Platelet Count 168 Mean Platelet Volume 10.8 H Neutrophils % 69.4 Lymphocytes % 18.6 Monocytes % 9.9 Eosinophils % 1.2 Basophils % 0.5 Nucleated Red Blood Cells % 0.0 Neutrophils # 3.9 Lymphocytes # 1.1 Monocytes # 0.6 Eosinophils # 0.1 Basophils # 0.0 Nucleated Red Blood Cells # 0.0 Sodium Level 139 Potassium Level 5.0 Chloride Level 108 Carbon Dioxide Level 23 Anion Gap 13 Blood Urea Nitrogen 20 Creatinine 1.50 H Glucose Level 113 Calcium Level 10.4 H Creatine Kinase 25 Test 08/12/17 10:14 08/12/17 11:42 Bedside Glucose 104 94 Medications Medications Current Medications Clonidine (Catapres) 0.1 mg Q4H PRN PO ELEVATED BLOOD PRESSURE Last administered on 08/12/17 06:11; Admin Dose 0.1 MG; Start 08/08/17 at 21:00 Insulin Glargine (Lantus) 5 unit BID SC Last administered on 08/11/17 08:12; Admin Dose 5 UNIT; Start 08/08/17 at 21:25; Status Future Hold Metoprolol Tartrate (Lopressor) 50 mg BID PO Last administered on 08/12/17 08 :27; Admin Dose 50 MG; Start 08/08/17 at 21:26 Mycophenolate Sodium (Myfortic) 540 mg BID PO Last administered on 08/11/17 20 :28; Admin Dose 540 MG; Start 08/08/17 at 22:00 Prednisone (Prednisone) 5 mg DAILY PO Last administered on 08/11/17 08:18; Admin Dose 5 MG; Start 08/09/17 at 09:00 Tacrolimus (Prograf) 3 mg BID PO Last administered on 08/11/17 20:29; Admin Dose 3 MG; Start 08/08/17 at 21:00 Diagnostic Test (Pha) (Accu-Chek) 1 ea 02 XX ; Start 08/09/17 at 02:00 Miscellaneous Information 1 ea NOTE XX ; Start 08/08/17 at 21:30 Glucose (Glutose) 15 gm Q15M PRN PO DECREASED GLUCOSE; Start 08/08/17 at 21:30 Glucose (Glutose) 22.5 gm Q15M PRN PO DECREASED GLUCOSE; Start 08/08/17 at 21: 30 Dextrose (D50w Syringe) 25 ml Q15M PRN IV DECREASED GLUCOSE; Start 08/08/17 at 21:30 Dextrose (D50w Syringe) 50 ml Q15M PRN IV DECREASED GLUCOSE; Start 08/08/17 at 21:30 Glucagon (Glucagen) 1 mg Q15M PRN IM DECREASED GLUCOSE; Start 08/08/17 at 21:30 Glucose 15 gm 15 gm Q15M PRN BUCCAL DECREASED GLUCOSE; Start 08/08/17 at 21:30 Daptomycin/Sodium Chloride (Cubicin/NS) 100 ml @ 200 mls/hr Q24H IVPB Last administered on 08/11/17 23:19; Admin Dose 200 MLS/HR; Start 08/09/17 at 00:00 Acetaminophen/ Hydrocodone Bitart ([place] (7.5-325)) 1 tab Q4H PRN PO PAIN LEVEL 4-7 Last administered on 08/12/17 14:08; Admin Dose 1 TAB; Start at 09:30 Amlodipine Besylate (Norvasc) 5 mg DAILY PO Last administered on 08/12/17 08: 28; Admin Dose 5 MG; Start 08/09/17 at 09:30 Pantoprazole 40 mg 40 mg DAILY@06 PO Last administered on 08/11/17 05:29; Admin Dose 40 MG; Start 08/10/17 at 10:00 Piperacillin Sod/ Tazobactam Sod (Zosyn 2.25gm/ 50ml (Pmx)) 50 ml @ 100 mls/hr Q8 IVPB Last administered on 08/12/17 13:32; Admin Dose 100 MLS/HR; Start at 14:30 Enoxaparin Sodium (Lovenox) 30 mg DAILY SC ; Start 08/13/17 at 09:00 SHAKA SIMPSON MD Aug 12, 2017 17:13
--- NOTE | 2017-08-12 17:33 | CONS ---
Date/Time of Note Date/Time of Note DATE: 08/12/17 TIME: 17:28 Assessment/Plan Assessment/Plan Chief Complaint/Hosp Course assessment/impression - recurrent OM of R 3rd fingertip (XR showed periosteal reaction at the tip of R 3rd distal phalanx, suspicious for OM, MRI showed cellulitis of distal R 4th phalanx, without OM) and L 2nd fingertip (XR showed cortical irregularity at the tuft of L 2nd distal phalanx with overlying soft tissue defect, suggesting early OM, MRI showed OM at L 2nd distal phalanx with, cellulitis about L 2nd distal phalanx without drainable fluid collection.) - h/o OM of R 2nd finger s/p amputation at proximal phalanx neck, and h/o OM of L 3rd finger s/p amputation at middle and distal phalanges - DM - erosive esophagitis and gastritis s/p EGD on 08/12/2017 - h/o ESRD, was on HD - s/p renal transplant in 2009 (on tacrolimus 3mg bid, mycophenolate 540 mg bid , prednisone 5 mg daily), mild renal insufficiency at baseline - rheumatoid arthritis - chronic HCV infection - HTN - dyslipidemia - h/o polysubstance and IV drug use. - h/o pernicious anemia. - h/o hyperparathyroidism. - myalgia recommendations - continue pip/tazo and daptomycin (08/09/2017-). I recommend 6 weeks of IV antibiotics for his recurrent OM. Need to monitor CK while Pt's on daptomycin. CK was 25 on 08/12/2017. - I recommend hand surgery consult 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 Problems: Consultation Date/Type/Reason Admit Date/Time Aug 08, 2017 at 16:53 Initial Consult Date 08/09/17 Type of Consultation: ID Referring Provider: LUPE KAPLAN MD 24 HR Interval Summary Free Text/Dictation s/p EGD Constitutional: no complaints Detailed Summary Eyes: no complaints ENT: no complaints Respiratory: no complaints Cardiovascular: no complaints Gastrointestinal: No diarrhea, No pain Musculoskeletal: bone/joint pain (pain of L 2nd finger tip is rated at 3), restricted range of motion (due to swelling of fingertip of L 2nd finger) Skin: other (denies drainage), No erythema Neurologic: no complaints Exam/Review of Systems Vital Signs Vitals Vital Signs Date Time Temp Pulse Resp B/P Pulse Ox O2 Delivery O2 Flow Rate FiO2 08/12/17 15:14 98.1 56 16 129/83 99 08/12/17 11:43 Room Air 08/08/17 18:18 21 Intake and Output 08/11/17 08/11/17 08/12/17 15:00 23:00 07:00 Intake Total 50 ml 420 ml 390 ml Output Total 600 ml 800 ml Balance 50 ml -180 ml -410 ml Exam Constitutional: alert, oriented, well developed Psych: nl mood/affect, no complaints Head: normocephalic Eyes: nl conjunctiva, nl lids ENMT: nl external ears & nose, nl nasal mucosa & septum Neck: supple Respiratory: clear to auscultation, normal air movement Musculoskeletal: range of motion (limited range of motion of L 2nd finger), swelling (L 2nd fingertip) 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: FIRE ASSISTANT II-XII intact, nl mental status Skin: other (pale skin of L 2nd fingertip) Results Result Diagram: 08/12/17 0540 08/12/17 0540 Results 24 hrs Laboratory Tests Test 08/11/17 17:37 08/11/17 20:32 08/12/17 05:40 08/12/17 08:05 Bedside Glucose 181 174 113 White Blood Count 5.7 # Red Blood Count 5.23 Hemoglobin 17.1 Hematocrit 53.0 H Mean Corpuscular Volume 101.3 H Mean Corpuscular Hemoglobin 32.7 Mean Corpuscular Hemoglobin Concent 32.3 Red Cell Distribution Width 12.1 Platelet Count 168 Mean Platelet Volume 10.8 H Neutrophils % 69.4 Lymphocytes % 18.6 Monocytes % 9.9 Eosinophils % 1.2 Basophils % 0.5 Nucleated Red Blood Cells % 0.0 Neutrophils # 3.9 Lymphocytes # 1.1 Monocytes # 0.6 Eosinophils # 0.1 Basophils # 0.0 Nucleated Red Blood Cells # 0.0 Sodium Level 139 Potassium Level 5.0 Chloride Level 108 Carbon Dioxide Level 23 Anion Gap 13 Blood Urea Nitrogen 20 Creatinine 1.50 H Glucose Level 113 Calcium Level 10.4 H Creatine Kinase 25 Test 08/12/17 10:14 08/12/17 11:42 Bedside Glucose 104 94 Medications Medications Current Medications Clonidine (Catapres) 0.1 mg Q4H PRN PO ELEVATED BLOOD PRESSURE Last administered on 08/12/17t 06:11; Admin Dose 0.1 MG; Start 08/08/17 at 21:00 Insulin Glargine (Lantus) 5 unit BID SC Last administered on 08/11/17 08:12; Admin Dose 5 UNIT; Start 08/08/17 at 21:25; Status Future Hold Metoprolol Tartrate (Lopressor) 50 mg BID PO Last administered on 08/12/17 08 :27; Admin Dose 50 MG; Start 08/08/17 at 21:26 Mycophenolate Sodium (Myfortic) 540 mg BID PO Last administered on 08/11/17 20 :28; Admin Dose 540 MG; Start 08/08/17 at 22:00 Prednisone (Prednisone) 5 mg DAILY PO Last administered on 08/11/17 08:18; Admin Dose 5 MG; Start 08/09/17 at 09:00 Tacrolimus (Prograf) 3 mg BID PO Last administered on 08/11/17 20:29; Admin Dose 3 MG; Start 08/08/17 at 21:00 Diagnostic Test (Pha) (Accu-Chek) 1 ea 02 XX ; Start 08/09/17 at 02:00 Miscellaneous Information 1 ea NOTE XX ; Start 08/08/17 at 21:30 Glucose (Glutose) 15 gm Q15M PRN PO DECREASED GLUCOSE; Start 08/08/17 at 21:30 Glucose (Glutose) 22.5 gm Q15M PRN PO DECREASED GLUCOSE; Start 08/08/17 at 21: 30 Dextrose (D50w Syringe) 25 ml Q15M PRN IV DECREASED GLUCOSE; Start 08/08/17 at 21:30 Dextrose (D50w Syringe) 50 ml Q15M PRN IV DECREASED GLUCOSE; Start 08/08/17 at 21:30 Glucagon (Glucagen) 1 mg Q15M PRN IM DECREASED GLUCOSE; Start 08/08/17 at 21:30 Glucose 15 gm 15 gm Q15M PRN BUCCAL DECREASED GLUCOSE; Start 08/08/17 at 21:30 Daptomycin/Sodium Chloride (Cubicin/NS) 100 ml @ 200 mls/hr Q24H IVPB Last administered on 08/11/17 23:19; Admin Dose 200 MLS/HR; Start 08/09/17 at 00:00 Acetaminophen/ Hydrocodone Bitart ([place] (7.5-325)) 1 tab Q4H PRN PO PAIN LEVEL 4-7 Last administered on 08/12/17 14:08; Admin Dose 1 TAB; Start at 09:30 Amlodipine Besylate (Norvasc) 5 mg DAILY PO Last administered on 08/12/17 08: 28; Admin Dose 5 MG; Start 08/09/17 at 09:30 Pantoprazole 40 mg 40 mg DAILY@06 PO Last administered on 08/11/17 05:29; Admin Dose 40 MG; Start 08/10/17 at 10:00 Piperacillin Sod/ Tazobactam Sod (Zosyn 2.25gm/ 50ml (Pmx)) 50 ml @ 100 mls/hr Q8 IVPB Last administered on 08/12/17 13:32; Admin Dose 100 MLS/HR; Start at 14:30 Enoxaparin Sodium (Lovenox) 30 mg DAILY SC ; Start 08/13/17 at 09:00 MAGO VAIL M.D. Aug 12, 2017 17:33
[2017-08-13] VITALS (9 sets, daily range): BP systolic 132–180; BP diastolic 73–100; PULSE 74–94; RESP 16–18
[2017-08-13] MEDS: DAPTOMYCIN 250 MG in SOD CHLORIDE 0.9% 100 ML IVPB SCH (00:26)
[2017-08-13] MEDS: ACCU-CHEK XX SCH (02:00)
--- NOTE | 2017-08-13 04:47 | GILP ---
DATE OF PROCEDURE: PROCEDURE: Esophagogastroduodenoscopy with biopsy. INDICATION: The patient is a 56-year-old male undergoing this procedure for significant weight loss , epigastric pain and history of passing black colored stool. The purpose is to evaluate the upper GI tract and find out the cause of his symptoms. The risk of the procedure, related and unrelated complications, anesthetic risks, alternatives discu ssed. Informed consent was obtained. DESCRIPTION OF PROCEDURE: Patient was brought to the GI lab, sedated by Dr. Aviles. After optim al sedation, scope was passed with much ease into esophagus. Z-line was at 30 cm. The patient had a -like projection extending proximally by about 2 cm. Also had element of erosive esophagitis . Stomach mucosa revealed severe gastritis. Multiple biopsies obtained. Duodenum, first and secon d part appeared normal. Retroversion also was normal. Scope was straightened out and removed with good patient tolerance. IMPRESSION: 1. Erosive esophagitis, rule out Juan's. 2. Severe gastritis. PLAN: Continue PPI. Pending H. pylori results. Dictated By: UCHE LEVINE/NAK[place] Conf#: [id number] DID#: [id number] CC: LUPE KAPLAN MD;*End*
[2017-08-13] MEDS: PIPER-TAZO 2.25 GM (PMX) 50 ML IVPB SCH ×3 (06:09→22:18)
[2017-08-13] MEDS: PANTOPRAZOLE (EC) 40 MG TAB PO SCH (06:10)
[2017-08-13 06:19] LABS: BASOPHILS % 0.7 % (0.0-2.0); EOSINOPHILS # 0.1 10^3/ul (0.0-0.5); EOSINOPHILS % 1.9 % (0.0-7.0); HEMATOCRIT 48.9 % (42.0-52.0); HEMOGLOBIN 16.2 g/dl (14.0-18.0); LYMPHOCYTES # 1.1 10^3/ul (0.8-2.9); LYMPHOCYTES % 27.2 % (15.0-51.0); MEAN CORPUSCULAR HEMOGLOBIN 33.8 pg (29.0-33.0); MEAN CORPUSCULAR HGB CONC 33.1 g/dl (32.0-37.0); MEAN CORPUSCULAR VOLUME 101.9 fl (82.0-101.0); MEAN PLATELET VOLUME 10.9 fl (7.4-10.4); MONOCYTE # 0.5 10^3/ul (0.3-0.9); MONOCYTES % 12.6 % (0.0-11.0); NEUTROPHIL # 2.4 10^3/ul (1.6-7.5); NEUTROPHILS % 57.4 % (39.0-77.0); PLATELET COUNT 142 10^3/UL (140-415); RED CELL DISTRIBUTION WIDTH 11.9 % (11.5-14.5); WHITE BLOOD COUNT 4.1 10^3/ul (4.8-10.8)
[2017-08-13 06:49] LABS: CALCIUM 10.2 mg/dl (8.4-10.2); CREATININE 1.54 mg/dl (0.61-1.24)
[2017-08-13 06:54] LABS: POTASSIUM 5.2 mmol/L (3.5-5.1)
[2017-08-13] MEDS: INSULIN ASPART [NOVOLOG] 3 ML PEN SC SCH ×4 (08:02→21:00)
[2017-08-13] MEDS: METOPROLOL 50 MG TAB PO SCH ×2 (08:03→20:59)
[2017-08-13] MEDS: predniSONE 5 MG TAB PO SCH (08:04)
[2017-08-13] MEDS: AMLODIPINE 5 MG TAB PO SCH (08:04)
[2017-08-13] MEDS: MYCOPHENOLATE (SR) 180 MG TAB PO SCH ×2 (08:04→21:01)
[2017-08-13] MEDS: TACROLIMUS 0.5 MG CAP PO SCH ×2 (08:05→20:58)
[2017-08-13] MEDS: ENOXAPARIN 30 MG/0.3 ML SYG SC SCH (08:41)
[2017-08-13] MEDS ORDERED: ONDANSETRON 4 MG INJ IV PRN (09:00)
[2017-08-13] MEDS: HYDROCODONE/APAP (7.5/325) TAB PO PRN (09:42)
--- NOTE | 2017-08-13 09:47 | CONS ---
Date/Time of Note Date/Time of Note DATE: 08/13/17 TIME: 09:44 Assessment/Plan Assessment/Plan Chief Complaint/Hosp Course assessment/impression - recurrent OM of R 3rd fingertip (XR showed periosteal reaction at the tip of R 3rd distal phalanx, suspicious for OM, MRI showed cellulitis of distal R 4th phalanx, without OM) and L 2nd fingertip (XR showed cortical irregularity at the tuft of L 2nd distal phalanx with overlying soft tissue defect, suggesting early OM, MRI showed OM at L 2nd distal phalanx with, cellulitis about L 2nd distal phalanx without drainable fluid collection.) - h/o OM of R 2nd finger s/p amputation at proximal phalanx neck, and h/o OM of L 3rd finger s/p amputation at middle and distal phalanges - DM - erosive esophagitis and gastritis s/p EGD on 08/12/2017 - h/o ESRD, was on HD - s/p renal transplant in 2009 (on tacrolimus 3mg bid, mycophenolate 540 mg bid , prednisone 5 mg daily), mild renal insufficiency at baseline - rheumatoid arthritis - chronic HCV infection - HTN - dyslipidemia - h/o polysubstance and IV drug use. - h/o pernicious anemia. - h/o hyperparathyroidism. - myalgia recommendations - continue pip/tazo and daptomycin (08/09/2017-). I recommend 6 weeks of IV antibiotics for his recurrent OM. Need to monitor CK while Pt's on daptomycin. CK was 25 on 08/12/2017. Will adjust the dose according to GFR - I recommend hand surgery consult if available 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 Problems: Consultation Date/Type/Reason Admit Date/Time Aug 08, 2017 at 16:53 Initial Consult Date 08/09/17 Type of Consultation: ID Referring Provider: LUPE KAPLAN MD 24 HR Interval Summary Constitutional: no complaints Detailed Summary Eyes: no complaints ENT: no complaints Respiratory: no complaints Cardiovascular: no complaints Gastrointestinal: no complaints Genitourinary: no complaints Musculoskeletal: bone/joint pain ("better"), restricted range of motion ( better than before) Skin: other (denies purulence from L 2nd fingertip) Neurologic: no complaints Exam/Review of Systems Vital Signs Vitals Vital Signs Date Time Temp Pulse Resp B/P Pulse Ox O2 Delivery O2 Flow Rate FiO2 10/11/17 07:41 97.8 81 18 178/95 98 08/12/17 11:43 Room Air Intake and Output 08/12/17 08/12/17 08/13/17 15:00 23:00 07:00 Intake Total 100 ml 410 ml 510 ml Output Total 725 ml Balance 100 ml 410 ml -215 ml Exam Constitutional: alert, oriented, well developed Psych: nl mood/affect, no complaints Head: atraumatic, normocephalic Eyes: nl conjunctiva, nl lids ENMT: nl external ears & nose, nl nasal mucosa & septum Neck: supple Musculoskeletal: joint tenderness (upon deep palpation of L 2nd fingertip), range of motion (can flex L 2nd finger 45 degrees), swelling (L 2nd fingertip) Extremities: normal pulses, No edema Skin: nl turgor Results Result Diagram: 08/13/17 0534 08/13/17 0534 Results 24 hrs Laboratory Tests Test 08/12/17 10:14 08/12/17 11:42 08/12/17 17:23 08/12/17 21:06 Bedside Glucose 104 94 206 157 Test 08/13/17 02:37 08/13/17 05:34 08/13/17 08:00 Bedside Glucose 128 116 White Blood Count 4.1 #L Red Blood Count 4.80 Hemoglobin 16.2 Hematocrit 48.9 Mean Corpuscular Volume 101.9 H Mean Corpuscular Hemoglobin 33.8 H Mean Corpuscular Hemoglobin Concent 33.1 Red Cell Distribution Width 11.9 Platelet Count 142 Mean Platelet Volume 10.9 H Neutrophils % 57.4 Lymphocytes % 27.2 Monocytes % 12.6 H Eosinophils % 1.9 Basophils % 0.7 Nucleated Red Blood Cells % 0.0 Neutrophils # 2.4 Lymphocytes # 1.1 Monocytes # 0.5 Eosinophils # 0.1 Basophils # 0.0 Nucleated Red Blood Cells # 0.0 Sodium Level 135 Potassium Level 5.2 H Chloride Level 107 Carbon Dioxide Level 23 Anion Gap 10 Blood Urea Nitrogen 24 H Creatinine 1.54 H Glucose Level 122 Calcium Level 10.2 Medications Medications Current Medications Clonidine (Catapres) 0.1 mg Q4H PRN PO ELEVATED BLOOD PRESSURE Last administered on 08/12/17t 06:11; Admin Dose 0.1 MG; Start 08/08/17 at 21:00 Insulin Glargine (Lantus) 5 unit BID SC Last administered on 08/11/17 08:12; Admin Dose 5 UNIT; Start 08/08/17 at 21:25; Status Future Hold Metoprolol Tartrate (Lopressor) 50 mg BID PO Last administered on 08/13/17 08 :03; Admin Dose 50 MG; Start 08/08/17 at 21:26 Mycophenolate Sodium (Myfortic) 540 mg BID PO Last administered on 08/13/17 08:04; Admin Dose 540 MG; Start 08/08/17 at 22:00 Prednisone (Prednisone) 5 mg DAILY PO Last administered on 08/13/17 08:04; Admin Dose 5 MG; Start 08/09/17 at 09:00 Tacrolimus (Prograf) 3 mg BID PO Last administered on 08/13/17 08:05; Admin Dose 3 MG; Start 08/08/17 at 21:00 Diagnostic Test (Pha) (Accu-Chek) 1 ea 02 XX ; Start 08/09/17 at 02:00 Miscellaneous Information 1 ea NOTE XX ; Start 08/08/17 at 21:30 Glucose (Glutose) 15 gm Q15M PRN PO DECREASED GLUCOSE; Start 08/08/17 at 21:30 Glucose (Glutose) 22.5 gm Q15M PRN PO DECREASED GLUCOSE; Start 08/08/17 at 21: 30 Dextrose (D50w Syringe) 25 ml Q15M PRN IV DECREASED GLUCOSE; Start 08/08/17 at 21:30 Dextrose (D50w Syringe) 50 ml Q15M PRN IV DECREASED GLUCOSE; Start 08/08/17 at 21:30 Glucagon (Glucagen) 1 mg Q15M PRN IM DECREASED GLUCOSE; Start 08/08/17 at 21:30 Glucose 15 gm 15 gm Q15M PRN BUCCAL DECREASED GLUCOSE; Start 08/08/17 at 21:30 Daptomycin/Sodium Chloride (Cubicin/NS) 100 ml @ 200 mls/hr Q24H IVPB Last administered on 08/13/17 00:26; Admin Dose 200 MLS/HR; Start 08/09/17 at 00:00 Acetaminophen/ Hydrocodone Bitart ([place] (7.5-325)) 1 tab Q4H PRN PO PAIN LEVEL 4-7 Last administered on 08/13/17 09:42; Admin Dose 1 TAB; Start at 09:30 Amlodipine Besylate (Norvasc) 5 mg DAILY PO Last administered on 08/13/17 08: 04; Admin Dose 5 MG; Start 08/09/17 at 09:30 Pantoprazole 40 mg 40 mg DAILY@06 PO Last administered on 08/13/17 06:10; Admin Dose 40 MG; Start 08/10/17 at 10:00 Piperacillin Sod/ Tazobactam Sod (Zosyn 2.25gm/ 50ml (Pmx)) 50 ml @ 100 mls/hr Q8 IVPB Last administered on 08/13/17 06:09; Admin Dose 100 MLS/HR; Start at 14:30 Enoxaparin Sodium (Lovenox) 30 mg DAILY SC ; Start 08/13/17 at 09:00 Ondansetron HCl (Zofran Inj) 4 mg Q6H PRN IV NAUSEA AND/OR VOMITING Last administered on 08/13/17 09:41; Admin Dose 4 MG; Start 08/13/17 at 09:00 MAGO VAIL M.D. Aug 13, 2017 09:47
--- NOTE | 2017-08-13 11:19 | PN ---
Date/Time of Note Date/Time of Note DATE: 08/13/17 TIME: 11:15 Assessment/Plan VTE Prophylaxis VTE Prophylaxis Intervention: SCD's Lines/Catheters IV Catheter Type (from [facility]): [facility] Lock Urinary Cath still in place: No Assessment/Plan Chief Complaint/Hosp Course Pt is s/p EGD, has emesis, complains of pain. Assessment/Plan - Right 3rd finger distal osteomyelitis. Left index finger distal phalanx also suggests early osteomyelitis. Continue antibiotics per ID. Dr. Awan is following infection disease consultation. - Erosive esophagitis, rule out Juan's. Severe gastritis per EGD on 08/13. Continue Protonix. - Weight loss, abdominal pain and melenic stools. Dr Hartley is following in in gastroenterology consultation. - End-stage renal disease, status post kidney transplant in 2009. Continued on antirejection therapy with baseline creatinine is about 1.5. - Hypertension. Continue Norvasc and metoprolol. - Diabetes mellitus. Continue NovoLog per mild algorithm sliding scale. - Hepatitis C. Further recommendations based on clinical course. Plan of care discussed with Dr. Maier. Problems: Exam/Review of Systems Vital Signs Vitals Vital Signs Date Time Temp Pulse Resp B/P Pulse Ox O2 Delivery O2 Flow Rate FiO2 08/13/17 11:00 77 175/93 08/13/17 07:41 97.8 18 98 08/12/17 11:43 Room Air Intake and Output 08/12/17 08/12/17 08/13/17 14:59 22:59 06:59 Intake Total 100 ml 410 ml 510 ml Output Total 725 ml Balance 100 ml 410 ml -215 ml Exam Constitutional: alert, oriented Head: normocephalic Neck: supple Respiratory: normal air movement Cardiovascular: nl pulses Gastrointestinal: non-tender, soft Extremities: normal pulses, other (swelling L 2nd distal phalanx) Results Result Diagram: 08/13/17 0534 08/13/17 0534 Results 24 hrs Laboratory Tests Test 08/12/17 11:42 08/12/17 17:23 08/12/17 21:06 08/13/17 02:37 Bedside Glucose 94 206 157 128 Test 08/13/17 05:34 08/13/17 08:00 White Blood Count 4.1 #L Red Blood Count 4.80 Hemoglobin 16.2 Hematocrit 48.9 Mean Corpuscular Volume 101.9 H Mean Corpuscular Hemoglobin 33.8 H Mean Corpuscular Hemoglobin Concent 33.1 Red Cell Distribution Width 11.9 Platelet Count 142 Mean Platelet Volume 10.9 H Neutrophils % 57.4 Lymphocytes % 27.2 Monocytes % 12.6 H Eosinophils % 1.9 Basophils % 0.7 Nucleated Red Blood Cells % 0.0 Neutrophils # 2.4 Lymphocytes # 1.1 Monocytes # 0.5 Eosinophils # 0.1 Basophils # 0.0 Nucleated Red Blood Cells # 0.0 Sodium Level 135 Potassium Level 5.2 H Chloride Level 107 Carbon Dioxide Level 23 Anion Gap 10 Blood Urea Nitrogen 24 H Creatinine 1.54 H Glucose Level 122 Calcium Level 10.2 Bedside Glucose 116 Medications Medications Current Medications Clonidine (Catapres) 0.1 mg Q4H PRN PO ELEVATED BLOOD PRESSURE Last administered on 08/12/17 06:11; Admin Dose 0.1 MG; Start 08/08/17 at 21:00 Insulin Glargine (Lantus) 5 unit BID SC Last administered on 08/11/17 08:12; Admin Dose 5 UNIT; Start 08/08/17 at 21:25; Status Future Hold Metoprolol Tartrate (Lopressor) 50 mg BID PO Last administered on 08/13/17 08 :03; Admin Dose 50 MG; Start 08/08/17 at 21:26 Mycophenolate Sodium (Myfortic) 540 mg BID PO Last administered on 08/13/17 08:04; Admin Dose 540 MG; Start 08/08/17 at 22:00 Prednisone (Prednisone) 5 mg DAILY PO Last administered on 08/13/17 08:04; Admin Dose 5 MG; Start 08/09/17 at 09:00 Tacrolimus (Prograf) 3 mg BID PO Last administered on 08/13/17 08:05; Admin Dose 3 MG; Start 08/08/17 at 21:00 Diagnostic Test (Pha) (Accu-Chek) 1 ea 02 XX ; Start 08/09/17 at 02:00 Miscellaneous Information 1 ea NOTE XX ; Start 08/08/17 at 21:30 Glucose (Glutose) 15 gm Q15M PRN PO DECREASED GLUCOSE; Start 08/08/17 at 21:30 Glucose (Glutose) 22.5 gm Q15M PRN PO DECREASED GLUCOSE; Start 08/08/17 at 21: 30 Dextrose (D50w Syringe) 25 ml Q15M PRN IV DECREASED GLUCOSE; Start 08/08/17 at 21:30 Dextrose (D50w Syringe) 50 ml Q15M PRN IV DECREASED GLUCOSE; Start 08/08/17 at 21:30 Glucagon (Glucagen) 1 mg Q15M PRN IM DECREASED GLUCOSE; Start 08/08/17 at 21:30 Glucose 15 gm 15 gm Q15M PRN BUCCAL DECREASED GLUCOSE; Start 08/08/17 at 21:30 Daptomycin/Sodium Chloride (Cubicin/NS) 100 ml @ 200 mls/hr Q24H IVPB Last administered on 08/13/17 00:26; Admin Dose 200 MLS/HR; Start 08/09/17 at 00:00 Acetaminophen/ Hydrocodone Bitart ([place] (7.5-325)) 1 tab Q4H PRN PO PAIN LEVEL 4-7 Last administered on 08/13/17 09:42; Admin Dose 1 TAB; Start at 09:30 Amlodipine Besylate (Norvasc) 5 mg DAILY PO Last administered on 08/13/17 08: 04; Admin Dose 5 MG; Start 08/09/17 at 09:30 Pantoprazole 40 mg 40 mg DAILY@06 PO Last administered on 08/13/17 06:10; Admin Dose 40 MG; Start 08/10/17 at 10:00 Piperacillin Sod/ Tazobactam Sod (Zosyn 2.25gm/ 50ml (Pmx)) 50 ml @ 100 mls/hr Q8 IVPB Last administered on 08/13/17 06:09; Admin Dose 100 MLS/HR; Start at 14:30 Enoxaparin Sodium (Lovenox) 30 mg DAILY SC ; Start 08/13/17 at 09:00 Ondansetron HCl (Zofran Inj) 4 mg Q6H PRN IV NAUSEA AND/OR VOMITING Last administered on 08/13/17 09:41; Admin Dose 4 MG; Start 08/13/17 at 09:00 LETI RODRIGUEZ Aug 13, 2017 11:19
[2017-08-13] MEDS: ONDANSETRON 4 MG INJ IV PRN ×2 (11:48→16:07)
[2017-08-13] MEDS: morphine 2 MG INJ IV PRN ×3 (11:48→21:09)
[2017-08-13] MEDS: hydrALAzine 20 MG INJ IV PRN (14:19)
--- NOTE | 2017-08-13 17:19 | CONS ---
Date/Time of Note Date/Time of Note DATE: 08/13/17 TIME: 17:18 Assessment/Plan Assessment/Plan Additional Assessment/Plan IMPRESSION: 1. Osteomyelitis of the finger. 2. Diabetes mellitus. 3. Status post renal transplant, on immunosuppressive medication. 4. Hepatitis C virus infection in the past. 5. Epigastric pain for months. 6. Significant weight loss. The patient definitely looks cachectic. 7. History of melena which stopped 5 days ago. 8. Cachexia 9. Juan esophagus Plan Continue PPI Reglan for nausea vomiting Megace to improved appetite Consultation Date/Type/Reason Admit Date/Time Aug 08, 2017 at 16:53 Initial Consult Date 08/09/17 Type of Consultation: ID Referring Provider: LUPE KAPLAN MD 24 HR Interval Summary Free Text/Dictation Complaints of epigastric pain and nausea Exam/Review of Systems Vital Signs Vitals Vital Signs Date Time Temp Pulse Resp B/P Pulse Ox O2 Delivery O2 Flow Rate FiO2 08/13/17 14:43 97.9 89 16 132/73 98 Room Air Intake and Output 08/12/17 08/12/17 08/13/17 15:00 23:00 07:00 Intake Total 100 ml 410 ml 510 ml Output Total 725 ml Balance 100 ml 410 ml -215 ml Exam Constitutional: alert, oriented, well developed Psych: nl mood/affect, no complaints Head: atraumatic, normocephalic Eyes: EOMI, PERRL, nl conjunctiva, nl lids, nl sclera ENMT: nl external ears & nose, nl lips & teeth, nl nasal mucosa & septum Neck: non-tender, supple Respiratory: clear to auscultation, normal air movement Cardiovascular: nl pulses, regular rate and rhythm Gastrointestinal: nl liver, spleen, non-tender, soft Musculoskeletal: nl extremities to inspection, nl gait and stance Extremities: normal pulses 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: BUCKLE ASSEMBLER II-XII intact, nl mental status, nl speech, nl strength Skin: nl turgor, No rash or lesions Lymph: nl lymph nodes Results Result Diagram: 08/13/17 0534 08/13/17 0534 Results 24 hrs Laboratory Tests Test 08/12/17 17:23 08/12/17 21:06 08/13/17 02:37 08/13/17 05:34 Bedside Glucose 206 157 128 White Blood Count 4.1 #L Red Blood Count 4.80 Hemoglobin 16.2 Hematocrit 48.9 Mean Corpuscular Volume 101.9 H Mean Corpuscular Hemoglobin 33.8 H Mean Corpuscular Hemoglobin Concent 33.1 Red Cell Distribution Width 11.9 Platelet Count 142 Mean Platelet Volume 10.9 H Neutrophils % 57.4 Lymphocytes % 27.2 Monocytes % 12.6 H Eosinophils % 1.9 Basophils % 0.7 Nucleated Red Blood Cells % 0.0 Neutrophils # 2.4 Lymphocytes # 1.1 Monocytes # 0.5 Eosinophils # 0.1 Basophils # 0.0 Nucleated Red Blood Cells # 0.0 Sodium Level 135 Potassium Level 5.2 H Chloride Level 107 Carbon Dioxide Level 23 Anion Gap 10 Blood Urea Nitrogen 24 H Creatinine 1.54 H Glucose Level 122 Calcium Level 10.2 Test 08/13/17 08:00 08/13/17 11:52 Bedside Glucose 116 135 Medications Medications Current Medications Clonidine (Catapres) 0.1 mg Q4H PRN PO ELEVATED BLOOD PRESSURE Last administered on 08/12/17 06:11; Admin Dose 0.1 MG; Start 08/08/17 at 21:00 Insulin Glargine (Lantus) 5 unit BID SC Last administered on 08/11/17 08:12; Admin Dose 5 UNIT; Start 08/08/17 at 21:25; Status Future Hold Metoprolol Tartrate (Lopressor) 50 mg BID PO Last administered on 08/13/17 08 :03; Admin Dose 50 MG; Start 08/08/17 at 21:26 Mycophenolate Sodium (Myfortic) 540 mg BID PO Last administered on 08/13/17 08:04; Admin Dose 540 MG; Start 08/08/17 at 22:00 Prednisone (Prednisone) 5 mg DAILY PO Last administered on 08/13/17 08:04; Admin Dose 5 MG; Start 08/09/17 at 09:00 Tacrolimus (Prograf) 3 mg BID PO Last administered on 08/13/17 08:05; Admin Dose 3 MG; Start 08/08/17 at 21:00 Diagnostic Test (Pha) (Accu-Chek) 1 ea 02 XX ; Start 08/09/17 at 02:00 Miscellaneous Information 1 ea NOTE XX ; Start 08/08/17 at 21:30 Glucose (Glutose) 15 gm Q15M PRN PO DECREASED GLUCOSE; Start 08/08/17 at 21:30 Glucose (Glutose) 22.5 gm Q15M PRN PO DECREASED GLUCOSE; Start 08/08/17 at 21: 30 Dextrose (D50w Syringe) 25 ml Q15M PRN IV DECREASED GLUCOSE; Start 08/08/17 at 21:30 Dextrose (D50w Syringe) 50 ml Q15M PRN IV DECREASED GLUCOSE; Start 08/08/17 at 21:30 Glucagon (Glucagen) 1 mg Q15M PRN IM DECREASED GLUCOSE; Start 08/08/17 at 21:30 Glucose 15 gm 15 gm Q15M PRN BUCCAL DECREASED GLUCOSE; Start 08/08/17 at 21:30 Daptomycin/Sodium Chloride (Cubicin/NS) 100 ml @ 200 mls/hr Q24H IVPB Last administered on 08/13/17 00:26; Admin Dose 200 MLS/HR; Start 08/09/17 at 00:00 Acetaminophen/ Hydrocodone Bitart ([place] (7.5-325)) 1 tab Q4H PRN PO PAIN LEVEL 4-7 Last administered on 08/13/17 09:42; Admin Dose 1 TAB; Start at 09:30 Amlodipine Besylate 5 mg 5 mg DAILY PO Last administered on 08/13/17 08:04; Admin Dose 5 MG; Start 08/09/17 at 09:30 Piperacillin Sod/ Tazobactam Sod (Zosyn 2.25gm/ 50ml (Pmx)) 50 ml @ 100 mls/hr Q8 IVPB Last administered on 08/13/17 13:40; Admin Dose 100 MLS/HR; Start at 14:30 Enoxaparin Sodium (Lovenox) 30 mg DAILY SC ; Start 08/13/17 at 09:00 Morphine Sulfate (morphine) 2 mg Q4H PRN IV PAIN LEVEL 6-10 Last administered on 08/13/17 16:07; Admin Dose 2 MG; Start 08/13/17 at 11:30 Ondansetron HCl (Zofran Inj) 4 mg Q4H PRN IV NAUSEA AND/OR VOMITING Last administered on 08/13/17 16:07; Admin Dose 4 MG; Start 08/13/17 at 11:30 Hydralazine HCl (Apresoline) 10 mg Q6H PRN IV ELEVATED BLOOD PRESSURE Last administered on 08/13/17t 14:19; Admin Dose 10 MG; Start 08/13/17 at 14:00 Pantoprazole (Protonix Iv) 40 mg DAILY@06 IV ; Start 08/14/17 at 21:00 Metoclopramide HCl (Reglan) 10 mg Q8 IV ; Start 08/13/17 at 22:00 UCHE ZEPEDA MD Aug 13, 2017 17:19
[2017-08-13] MEDS ORDERED: BARIUM SULF 2% 450 ML BTL (BERRY SMOOTHIE) PO ONE (17:30)
--- NOTE | 2017-08-13 18:48 | CONS ---
Date/Time of Note Date/Time of Note DATE: 08/13/17 TIME: 18:47 Assessment/Plan Assessment/Plan Additional Assessment/Plan 1. Acute Kidney inury on CKD due to Prerenal azotemia and Infection 2. Left finger infection possibel recurrent OM of left finger 3.h/o OM of R 2nd finger s/p amputation at proximal phalanx neck, and h/o OM of L 3rd finger s/p amputation at middle and distal phalanges 4. 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 h/o ESRD, was on HD - s/p renal transplant in 2009 (on tacrolimus 3mg bid, mycophenolate 540 mg bid, prednisone 5 mg daily), mild renal insufficiency at baseline 6. rheumatoid arthritis 7. chronic HCV infection 8. HTN 9. dyslipidemia 10. h/o polysubstance and IV drug use. 11. h/o pernicious anemia. 12. h/o erosive esophagitis and gastritis Plan: pt has previously had a full CKD work up - no need to repeat it Cr 1.5, K 5.2- will give kayexalate 15 gram po x 1 dose today , Monitor Cr and electrolytes and replace as needed IV abx as per ID Continue current Immunosuppression for kidney transplant,( tacrolimus 3mg bid, mycophenolate 540 mg bid, prednisone 5 mg daily) pt has no signs and symptoms of tracrolimus toxicity, so we will monitor it. Consultation Date/Type/Reason Admit Date/Time Aug 08, 2017 at 16:53 Initial Consult Date 08/09/17 Type of Consultation: NEPHROLOGY Referring Provider: LUPE KAPLAN MD 24 HR Interval Summary Free Text/Dictation K 5.2, Cr 1.5 Exam/Review of Systems Vital Signs Vitals Vital Signs Date Time Temp Pulse Resp B/P Pulse Ox O2 Delivery O2 Flow Rate FiO2 08/13/17 14:43 97.9 89 16 132/73 98 Room Air Intake and Output 08/12/17 08/12/17 08/13/17 15:00 23:00 07:00 Intake Total 100 ml 410 ml 510 ml Output Total 725 ml Balance 100 ml 410 ml -215 ml Exam Constitutional: alert Psych: no complaints Head: normocephalic ENMT: nl external ears & nose Neck: non-tender, supple Respiratory: clear to auscultation, diminished breath sounds, normal air movement Cardiovascular: nl pulses, regular rate and rhythm Gastrointestinal: non-tender, soft Musculoskeletal: nl extremities to inspection, other ((left finger swelling possible abscess vs OM )) 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: HOUSEHOLD CHORES II-XII intact, nl mental status, nl speech Results Result Diagram: 08/13/17 0534 08/13/17 0534 Results 24 hrs Laboratory Tests Test 08/12/17 21:06 08/13/17 02:37 08/13/17 05:34 08/13/17 08:00 Bedside Glucose 157 128 116 White Blood Count 4.1 #L Red Blood Count 4.80 Hemoglobin 16.2 Hematocrit 48.9 Mean Corpuscular Volume 101.9 H Mean Corpuscular Hemoglobin 33.8 H Mean Corpuscular Hemoglobin Concent 33.1 Red Cell Distribution Width 11.9 Platelet Count 142 Mean Platelet Volume 10.9 H Neutrophils % 57.4 Lymphocytes % 27.2 Monocytes % 12.6 H Eosinophils % 1.9 Basophils % 0.7 Nucleated Red Blood Cells % 0.0 Neutrophils # 2.4 Lymphocytes # 1.1 Monocytes # 0.5 Eosinophils # 0.1 Basophils # 0.0 Nucleated Red Blood Cells # 0.0 Sodium Level 135 Potassium Level 5.2 H Chloride Level 107 Carbon Dioxide Level 23 Anion Gap 10 Blood Urea Nitrogen 24 H Creatinine 1.54 H Glucose Level 122 Calcium Level 10.2 Test 08/13/17 11:52 08/13/17 17:48 Bedside Glucose 135 185 Medications Medications Current Medications Clonidine (Catapres) 0.1 mg Q4H PRN PO ELEVATED BLOOD PRESSURE Last administered on 08/12/17 06:11; Admin Dose 0.1 MG; Start 08/08/17 at 21:00 Insulin Glargine (Lantus) 5 unit BID SC Last administered on 08/11/17 08:12; Admin Dose 5 UNIT; Start 08/08/17 at 21:25; Status Future Hold Metoprolol Tartrate (Lopressor) 50 mg BID PO Last administered on 08/13/17 08 :03; Admin Dose 50 MG; Start 08/08/17 at 21:26 Mycophenolate Sodium (Myfortic) 540 mg BID PO Last administered on 08/13/17 08:04; Admin Dose 540 MG; Start 08/08/17 at 22:00 Prednisone (Prednisone) 5 mg DAILY PO Last administered on 08/13/17 08:04; Admin Dose 5 MG; Start 08/09/17 at 09:00 Tacrolimus (Prograf) 3 mg BID PO Last administered on 08/13/17 08:05; Admin Dose 3 MG; Start 08/08/17 at 21:00 Diagnostic Test (Pha) (Accu-Chek) 1 ea 02 XX ; Start 08/09/17 at 02:00 Miscellaneous Information 1 ea NOTE XX ; Start 08/08/17 at 21:30 Glucose (Glutose) 15 gm Q15M PRN PO DECREASED GLUCOSE; Start 08/08/17 at 21:30 Glucose (Glutose) 22.5 gm Q15M PRN PO DECREASED GLUCOSE; Start 08/08/17 at 21: 30 Dextrose (D50w Syringe) 25 ml Q15M PRN IV DECREASED GLUCOSE; Start 08/08/17 at 21:30 Dextrose (D50w Syringe) 50 ml Q15M PRN IV DECREASED GLUCOSE; Start 08/08/17 at 21:30 Glucagon (Glucagen) 1 mg Q15M PRN IM DECREASED GLUCOSE; Start 08/08/17 at 21:30 Glucose 15 gm 15 gm Q15M PRN BUCCAL DECREASED GLUCOSE; Start 08/08/17 at 21:30 Daptomycin/Sodium Chloride (Cubicin/NS) 100 ml @ 200 mls/hr Q24H IVPB Last administered on 08/13/17 00:26; Admin Dose 200 MLS/HR; Start 08/09/17 at 00:00 Acetaminophen/ Hydrocodone Bitart ([place] (7.5-325)) 1 tab Q4H PRN PO PAIN LEVEL 4-7 Last administered on 08/13/17 09:42; Admin Dose 1 TAB; Start at 09:30 Amlodipine Besylate 5 mg 5 mg DAILY PO Last administered on 08/13/17 08:04; Admin Dose 5 MG; Start 08/09/17 at 09:30 Piperacillin Sod/ Tazobactam Sod (Zosyn 2.25gm/ 50ml (Pmx)) 50 ml @ 100 mls/hr Q8 IVPB Last administered on 08/13/17 13:40; Admin Dose 100 MLS/HR; Start at 14:30 Enoxaparin Sodium (Lovenox) 30 mg DAILY SC ; Start 08/13/17 at 09:00 Morphine Sulfate (morphine) 2 mg Q4H PRN IV PAIN LEVEL 6-10 Last administered on 08/13/17 16:07; Admin Dose 2 MG; Start 08/13/17 at 11:30 Ondansetron HCl (Zofran Inj) 4 mg Q4H PRN IV NAUSEA AND/OR VOMITING Last administered on 08/13/17 16:07; Admin Dose 4 MG; Start 08/13/17 at 11:30 Hydralazine HCl (Apresoline) 10 mg Q6H PRN IV ELEVATED BLOOD PRESSURE Last administered on 08/13/17 14:19; Admin Dose 10 MG; Start 08/13/17 at 14:00 Pantoprazole (Protonix Iv) 40 mg DAILY@06 IV ; Start 08/14/17 at 21:00 Metoclopramide HCl (Reglan) 10 mg Q8 IV ; Start 08/13/17 at 22:00 SHAKA SIMPSON MD Aug 13, 2017 18:48
[2017-08-13] MEDS ORDERED: NA POLYST SULFON 15 GM/60 ML BTL PO ONE (19:00)
[2017-08-13] MEDS: METOCLOPRAMIDE 10 MG INJ IV SCH (21:09)
--- NOTE | 2017-08-13 22:04 | RADRPT ---
PROCEDURE: CT Abdomen and Pelvis without contrast. CLINICAL INDICATION: Abdominal and pelvic pain. Weight loss. TECHNIQUE: CT scan of the abdomen and pelvis without contrast was performed. Coronal and sagittal reformatted images were obtained from the axial source images. Images were reviewed on a high-resolu [employer] Edge PACS workstation. Total exam DLP is 386.10 mGy-cm. CTDIvol is 7.19 mGy. One or more of the fo llowin dose reduction techniques were used: Automated exposure control, adjustment of the mA and/or kV according to patient size, use of iterative reconstruction technique. COMPARISON: CT scan of the abdomen and pelvis dated 04/10/2015. FINDINGS: The lung bases are normal. There is no pleural effusion. The liver is normal in size and attenuation. There is no focal hepatic lesion. The gallbladder is distended but otherwise unremarkable. The bile ducts are normal. The spleen is normal in size. There is no focal splenic lesion. Both adrenals are normal with no enlargement or mass. The pancreas is unremarkable with no mass or evidence of pancreatitis. Both kidneys are severely atrophic and calcified consistent with chronic renal failure. The abdominal aorta is not dilated. There is calcification in the aorta consistent with atherosclero sis. There is no retroperitoneal lymphadenopathy or mass. There is no pelvic lymphadenopathy or mass. A transplant kidney is present in the right iliac fossa, unchanged. The bladder is unremarkable. The periappendiceal region is unremarkable with no evidence of appendicitis. The bowel and mesentery are normal. There is no free fluid or free gas. There are degenerative changes of the spine and hips. There is no fracture or lytic lesion. There is diffuse osteosclerosis consistent with renal osteodystrophy. IMPRESSION: 1. Distended gallbladder. 2. Severely atrophic and calcified kidneys, unchanged. 3. Atherosclerosis. 4. Transplant kidney in the right iliac fossa. 5. Degenerative changes of the spine and hips. 6. Diffuse osteosclerosis consistent with renal osteodystrophy. RPTAT: QQ .Arun Mora MD, MD Date Time Electronically viewed and signed by .Arun Mora MD, MD on 08/13/2017 22:03 .R/
[2017-08-14] MEDS: DAPTOMYCIN 250 MG in SOD CHLORIDE 0.9% 100 ML IVPB SCH (00:58)
[2017-08-14] MEDS: ACCU-CHEK XX SCH (01:33)
[2017-08-14] MEDS: morphine 2 MG INJ IV PRN ×4 (01:36→20:55)
[2017-08-14 02:00] VITALS: BP 134/90; RESP 20
[2017-08-14] MEDS: PIPER-TAZO 2.25 GM (PMX) 50 ML IVPB SCH ×3 (05:37→20:55)
[2017-08-14] MEDS: METOCLOPRAMIDE 10 MG INJ IV SCH ×3 (05:37→20:55)
[2017-08-14 07:57] VITALS: BP 128/85; RESP 16
[2017-08-14] MEDS: TACROLIMUS 0.5 MG CAP PO SCH (08:09)
[2017-08-14] MEDS: predniSONE 5 MG TAB PO SCH (08:10)
[2017-08-14] MEDS: AMLODIPINE 5 MG TAB PO SCH (08:11)
[2017-08-14] MEDS: METOPROLOL 50 MG TAB PO SCH ×2 (08:11→20:32)
[2017-08-14] MEDS: ENOXAPARIN 30 MG/0.3 ML SYG SC SCH (08:12)
[2017-08-14] MEDS: MYCOPHENOLATE (SR) 180 MG TAB PO SCH ×2 (08:12→20:30)
[2017-08-14] MEDS: INSULIN ASPART [NOVOLOG] 3 ML PEN SC SCH ×4 (08:23→21:09)
--- NOTE | 2017-08-14 10:37 | CONS ---
Date/Time of Note Date/Time of Note DATE: 08/14/17 TIME: 10:36 Assessment/Plan Assessment/Plan Additional Assessment/Plan IMPRESSION: 1. Osteomyelitis of the finger. 2. Diabetes mellitus. 3. Status post renal transplant, on immunosuppressive medication. 4. Hepatitis C virus infection in the past. 5. Epigastric pain for months. 6. Significant weight loss. The patient definitely looks cachectic. 7. History of melena which stopped 5 days ago. 8. Cachexia 9. Juan esophagus 10. Distended gallbladder but normal biliary system Plan Continue PPI Reglan for nausea vomiting Megace to improved appetite Consultation Date/Type/Reason Admit Date/Time Aug 08, 2017 at 16:53 Initial Consult Date 08/09/17 Type of Consultation: NEPHROLOGY Referring Provider: LUPE KAPLAN MD 24 HR Interval Summary Free Text/Dictation Is able to eat much better. Exam/Review of Systems Vital Signs Vitals Vital Signs Date Time Temp Pulse Resp B/P Pulse Ox O2 Delivery O2 Flow Rate FiO2 08/14/17 07:57 98.1 82 16 128/85 98 08/13/17 14:43 Room Air Intake and Output 08/13/17 08/13/17 08/14/17 15:00 23:00 07:00 Intake Total 50 ml 290 ml 590 ml Output Total 1100 ml 600 ml Balance 50 ml -810 ml -10 ml Exam Constitutional: alert, oriented, well developed Psych: nl mood/affect, no complaints Head: atraumatic, normocephalic Eyes: EOMI, PERRL, nl conjunctiva, nl lids, nl sclera ENMT: nl external ears & nose, nl lips & teeth, nl nasal mucosa & septum Neck: non-tender, supple Respiratory: clear to auscultation, normal air movement Cardiovascular: nl pulses, regular rate and rhythm Gastrointestinal: nl liver, spleen, non-tender, soft Musculoskeletal: nl extremities to inspection, nl gait and stance Extremities: normal pulses 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: LIBRARY SPECIALIST II-XII intact, nl mental status, nl speech, nl strength Skin: nl turgor, No rash or lesions Lymph: nl lymph nodes Results Result Diagram: 08/13/17 0534 08/13/17 0534 Results 24 hrs Laboratory Tests Test 08/13/17 11:52 08/13/17 17:48 08/13/17 21:03 08/14/17 08:01 Bedside Glucose 135 185 150 222 H Medications Medications Current Medications Clonidine (Catapres) 0.1 mg Q4H PRN PO ELEVATED BLOOD PRESSURE Last administered on 08/12/17 06:11; Admin Dose 0.1 MG; Start 08/08/17 at 21:00 Insulin Glargine (Lantus) 5 unit BID SC Last administered on 08/11/17 08:12; Admin Dose 5 UNIT; Start 08/08/17 at 21:25; Status Future Hold Metoprolol Tartrate (Lopressor) 50 mg BID PO Last administered on 08/14/17 08 :11; Admin Dose 50 MG; Start 08/08/17 at 21:26 Mycophenolate Sodium (Myfortic) 540 mg BID PO Last administered on 08/14/17 08:12; Admin Dose 540 MG; Start 08/08/17 at 22:00 Prednisone (Prednisone) 5 mg DAILY PO Last administered on 08/14/17 08:10; Admin Dose 5 MG; Start 08/09/17 at 09:00 Tacrolimus (Prograf) 3 mg BID PO Last administered on 08/14/17 08:09; Admin Dose 3 MG; Start 08/08/17 at 21:00 Diagnostic Test (Pha) (Accu-Chek) 1 ea 02 XX ; Start 08/09/17 at 02:00 Miscellaneous Information 1 ea NOTE XX ; Start 08/08/17 at 21:30 Glucose (Glutose) 15 gm Q15M PRN PO DECREASED GLUCOSE; Start 08/08/17 at 21:30 Glucose (Glutose) 22.5 gm Q15M PRN PO DECREASED GLUCOSE; Start 08/08/17 at 21: 30 Dextrose (D50w Syringe) 25 ml Q15M PRN IV DECREASED GLUCOSE; Start 08/08/17 at 21:30 Dextrose (D50w Syringe) 50 ml Q15M PRN IV DECREASED GLUCOSE; Start 08/08/17 at 21:30 Glucagon (Glucagen) 1 mg Q15M PRN IM DECREASED GLUCOSE; Start 08/08/17 at 21:30 Glucose 15 gm 15 gm Q15M PRN BUCCAL DECREASED GLUCOSE; Start 08/08/17 at 21:30 Daptomycin/Sodium Chloride (Cubicin/NS) 100 ml @ 200 mls/hr Q24H IVPB Last administered on 08/14/17 00:58; Admin Dose 200 MLS/HR; Start 08/09/17 at 00:00 Acetaminophen/ Hydrocodone Bitart ([place] (7.5-325)) 1 tab Q4H PRN PO PAIN LEVEL 4-7 Last administered on 08/13/17 09:42; Admin Dose 1 TAB; Start at 09:30 Amlodipine Besylate 5 mg 5 mg DAILY PO Last administered on 08/14/17 08:11; Admin Dose 5 MG; Start 08/09/17 at 09:30 Piperacillin Sod/ Tazobactam Sod (Zosyn 2.25gm/ 50ml (Pmx)) 50 ml @ 100 mls/hr Q8 IVPB Last administered on 08/14/17 05:37; Admin Dose 100 MLS/HR; Start at 14:30 Enoxaparin Sodium (Lovenox) 30 mg DAILY SC ; Start 08/13/17 at 09:00 Morphine Sulfate (morphine) 2 mg Q4H PRN IV PAIN LEVEL 6-10 Last administered on 08/14/17 10:00; Admin Dose 2 MG; Start 08/13/17 at 11:30 Ondansetron HCl (Zofran Inj) 4 mg Q4H PRN IV NAUSEA AND/OR VOMITING Last administered on 08/13/17 16:07; Admin Dose 4 MG; Start 08/13/17 at 11:30 Hydralazine HCl (Apresoline) 10 mg Q6H PRN IV ELEVATED BLOOD PRESSURE Last administered on 08/13/17 14:19; Admin Dose 10 MG; Start 08/13/17 at 14:00 Pantoprazole (Protonix Iv) 40 mg DAILY@06 IV ; Start 08/14/17 at 21:00 Metoclopramide HCl (Reglan) 10 mg Q8 IV Last administered on 08/14/17 05:37; Admin Dose 10 MG; Start 08/13/17 at 22:00 UCHE ZEPEDA MD Aug 14, 2017 10:37
--- NOTE | 2017-08-14 11:04 | CONS ---
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 (XR showed periosteal reaction at the tip of R 3rd distal phalanx, suspicious for OM, MRI showed cellulitis of distal R 4th phalanx, without OM) and L 2nd fingertip (XR showed cortical irregularity at the tuft of L 2nd distal phalanx with overlying soft tissue defect, suggesting early OM, MRI showed OM at L 2nd distal phalanx with, cellulitis about L 2nd distal phalanx without drainable fluid collection.) - h/o OM of R 2nd finger s/p amputation at proximal phalanx neck, and h/o OM of L 3rd finger s/p amputation at middle and distal phalanges - DM - Juan's esophagus and gastritis s/p EGD on 08/12/2017. No H. pylori on Bx - h/o ESRD, was on HD - s/p renal transplant in 2009 (on tacrolimus 3mg bid, mycophenolate 540 mg bid , prednisone 5 mg daily), mild renal insufficiency at baseline - rheumatoid arthritis - chronic HCV infection - HTN - dyslipidemia - h/o polysubstance and IV drug use. - h/o pernicious anemia. - h/o hyperparathyroidism. recommendations - continue pip/tazo and daptomycin (08/09/2017-). I recommend 6 weeks of IV antibiotics for his recurrent OM. Need to monitor CK while Pt's on daptomycin. CK was 25 on 08/12/2017. Will adjust the dose according to GFR - I recommend hand surgery consult if available 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 Problems: Consultation Date/Type/Reason Admit Date/Time Aug 08, 2017 at 16:53 Initial Consult Date 08/09/17 Type of Consultation: ID Referring Provider: LUPE KAPLAN MD 24 HR Interval Summary Constitutional: improved, no complaints Detailed Summary Eyes: no complaints ENT: no complaints Respiratory: no complaints Cardiovascular: no complaints Gastrointestinal: no complaints Genitourinary: no complaints Musculoskeletal: No bone/joint pain (reports no more pain of L 2nd finger) Neurologic: no complaints Exam/Review of Systems Vital Signs Vitals Vital Signs Date Time Temp Pulse Resp B/P Pulse Ox O2 Delivery O2 Flow Rate FiO2 08/14/17 07:57 98.1 82 16 128/85 98 08/13/17 14:43 Room Air Intake and Output 08/13/17 08/13/17 08/14/17 15:00 23:00 07:00 Intake Total 50 ml 290 ml 590 ml Output Total 1100 ml 600 ml Balance 50 ml -810 ml -10 ml Exam Constitutional: alert, oriented, well developed Psych: nl mood/affect, no complaints Head: atraumatic, normocephalic Eyes: nl conjunctiva, nl lids ENMT: nl external ears & nose, nl nasal mucosa & septum Musculoskeletal: other (only upon deep palpation, tender L 2nd fingertip), swelling (L 2nd finger but can flex more easily) Extremities: normal pulses, other (AVF in LUE), No edema 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, nl mental status, nl speech, nl strength Skin: rash or lesions (old lacerations on finger tips, pale skin of L 2nd finger) Results Result Diagram: 08/13/17 0534 08/13/17 0534 Results 24 hrs Laboratory Tests Test 08/13/17 11:52 08/13/17 17:48 08/13/17 21:03 08/14/17 08:01 Bedside Glucose 135 185 150 222 H Medications Medications Current Medications Clonidine (Catapres) 0.1 mg Q4H PRN PO ELEVATED BLOOD PRESSURE Last administered on 08/12/17 06:11; Admin Dose 0.1 MG; Start 08/08/17 at 21:00 Insulin Glargine (Lantus) 5 unit BID SC Last administered on 08/11/17 08:12; Admin Dose 5 UNIT; Start 08/08/17 at 21:25; Status Future Hold Metoprolol Tartrate (Lopressor) 50 mg BID PO Last administered on 08/14/17 08 :11; Admin Dose 50 MG; Start 08/08/17 at 21:26 Mycophenolate Sodium (Myfortic) 540 mg BID PO Last administered on 08/14/17 08:12; Admin Dose 540 MG; Start 08/08/17 at 22:00 Prednisone (Prednisone) 5 mg DAILY PO Last administered on 08/14/17 08:10; Admin Dose 5 MG; Start 08/09/17 at 09:00 Tacrolimus (Prograf) 3 mg BID PO Last administered on 08/14/17 08:09; Admin Dose 3 MG; Start 08/08/17 at 21:00 Diagnostic Test (Pha) (Accu-Chek) 1 ea 02 XX ; Start 08/09/17 at 02:00 Miscellaneous Information 1 ea NOTE XX ; Start 08/08/17 at 21:30 Glucose (Glutose) 15 gm Q15M PRN PO DECREASED GLUCOSE; Start 08/08/17 at 21:30 Glucose (Glutose) 22.5 gm Q15M PRN PO DECREASED GLUCOSE; Start 08/08/17 at 21: 30 Dextrose (D50w Syringe) 25 ml Q15M PRN IV DECREASED GLUCOSE; Start 08/08/17 at 21:30 Dextrose (D50w Syringe) 50 ml Q15M PRN IV DECREASED GLUCOSE; Start 08/08/17 at 21:30 Glucagon (Glucagen) 1 mg Q15M PRN IM DECREASED GLUCOSE; Start 08/08/17 at 21:30 Glucose 15 gm 15 gm Q15M PRN BUCCAL DECREASED GLUCOSE; Start 08/08/17 at 21:30 Daptomycin/Sodium Chloride (Cubicin/NS) 100 ml @ 200 mls/hr Q24H IVPB Last administered on 08/14/17 00:58; Admin Dose 200 MLS/HR; Start 08/09/17 at 00:00 Acetaminophen/ Hydrocodone Bitart ([place] (7.5-325)) 1 tab Q4H PRN PO PAIN LEVEL 4-7 Last administered on 08/13/17 09:42; Admin Dose 1 TAB; Start at 09:30 Amlodipine Besylate 5 mg 5 mg DAILY PO Last administered on 08/14/17 08:11; Admin Dose 5 MG; Start 08/09/17 at 09:30 Piperacillin Sod/ Tazobactam Sod (Zosyn 2.25gm/ 50ml (Pmx)) 50 ml @ 100 mls/hr Q8 IVPB Last administered on 08/14/17 05:37; Admin Dose 100 MLS/HR; Start at 14:30 Enoxaparin Sodium (Lovenox) 30 mg DAILY SC ; Start 08/13/17 at 09:00 Morphine Sulfate (morphine) 2 mg Q4H PRN IV PAIN LEVEL 6-10 Last administered on 08/14/17 10:00; Admin Dose 2 MG; Start 08/13/17 at 11:30 Ondansetron HCl (Zofran Inj) 4 mg Q4H PRN IV NAUSEA AND/OR VOMITING Last administered on 08/13/17 16:07; Admin Dose 4 MG; Start 08/13/17 at 11:30 Hydralazine HCl (Apresoline) 10 mg Q6H PRN IV ELEVATED BLOOD PRESSURE Last administered on 08/13/17 14:19; Admin Dose 10 MG; Start 08/13/17 at 14:00 Pantoprazole (Protonix Iv) 40 mg DAILY@06 IV ; Start 08/14/17 at 21:00 Metoclopramide HCl (Reglan) 10 mg Q8 IV Last administered on 08/14/17 05:37; Admin Dose 10 MG; Start 08/13/17 at 22:00 MAGO VAIL M.D. Aug 14, 2017 11:04
[2017-08-14 13:52] VITALS: BP 107/71; RESP 16
--- NOTE | 2017-08-14 17:38 | PN ---
Date/Time of Note Date/Time of Note DATE: 08/14/17 TIME: 17:32 Assessment/Plan VTE Prophylaxis VTE Prophylaxis Intervention: other Lines/Catheters IV [facility] Type [facility] Peripheral IV Urinary Cath still in place: No Assessment/Plan Assessment/Plan -Abdominal pain - CT abd/pelvis- distended - per GI - Right 3rd finger distal osteomyelitis. Left index finger distal phalanx also suggests early osteomyelitis. Continue antibiotics per ID. Dr. Awan is following infection disease consultation. - Erosive esophagitis, rule out Juan's. Severe gastritis per EGD on 08/13. Continue Protonix. - Weight loss, abdominal pain and melenic stools. Dr Hartley is following in in gastroenterology consultation. - End-stage renal disease, status post kidney transplant in 2009. Continued on antirejection therapy with baseline creatinine is about 1.5. - Hypertension. Continue Norvasc and metoprolol. - Diabetes mellitus. Continue NovoLog per mild algorithm sliding scale. - Hepatitis C. Further recommendations based on clinical course. Plan of care discussed with Dr. Maier. Exam/Review of Systems Vital Signs Vitals Vital Signs Date Time Temp Pulse Resp B/P Pulse Ox O2 Delivery O2 Flow Rate FiO2 08/14/17 13:52 97.7 68 16 107/71 96 08/13/17 14:43 Room Air Intake and Output 08/13/17 08/13/17 08/14/17 15:00 23:00 07:00 Intake Total 50 ml 290 ml 590 ml Output Total 1100 ml 600 ml Balance 50 ml -810 ml -10 ml Exam Constitutional: alert, well developed Respiratory: diminished breath sounds Results Result Diagram: 08/13/17 0534 08/13/17 0534 Results 24 hrs Laboratory Tests Test 08/13/17 17:48 08/13/17 21:03 08/14/17 08:01 08/14/17 11:57 Bedside Glucose 185 150 222 H 163 Test 08/14/17 16:43 Bedside Glucose 298 H Medications Medications Current Medications Clonidine (Catapres) 0.1 mg Q4H PRN PO ELEVATED BLOOD PRESSURE Last administered on 08/12/17 06:11; Admin Dose 0.1 MG; Start 08/08/17 at 21:00 Insulin Glargine (Lantus) 5 unit BID SC Last administered on 08/11/17 08:12; Admin Dose 5 UNIT; Start 08/08/17 at 21:25; Status Future Hold Metoprolol Tartrate (Lopressor) 50 mg BID PO Last administered on 08/14/17 08 :11; Admin Dose 50 MG; Start 08/08/17 at 21:26 Mycophenolate Sodium (Myfortic) 540 mg BID PO Last administered on 08/14/17 08:12; Admin Dose 540 MG; Start 08/08/17 at 22:00 Prednisone (Prednisone) 5 mg DAILY PO Last administered on 08/14/17 08:10; Admin Dose 5 MG; Start 08/09/17 at 09:00 Tacrolimus (Prograf) 3 mg BID PO Last administered on 08/14/17 08:09; Admin Dose 3 MG; Start 08/08/17 at 21:00 Diagnostic Test (Pha) (Accu-Chek) 1 ea 02 XX ; Start 08/09/17 at 02:00 Miscellaneous Information 1 ea NOTE XX ; Start 08/08/17 at 21:30 Glucose (Glutose) 15 gm Q15M PRN PO DECREASED GLUCOSE; Start 08/08/17 at 21:30 Glucose (Glutose) 22.5 gm Q15M PRN PO DECREASED GLUCOSE; Start 08/08/17 at 21: 30 Dextrose (D50w Syringe) 25 ml Q15M PRN IV DECREASED GLUCOSE; Start 08/08/17 at 21:30 Dextrose (D50w Syringe) 50 ml Q15M PRN IV DECREASED GLUCOSE; Start 08/08/17 at 21:30 Glucagon (Glucagen) 1 mg Q15M PRN IM DECREASED GLUCOSE; Start 08/08/17 at 21:30 Glucose 15 gm 15 gm Q15M PRN BUCCAL DECREASED GLUCOSE; Start 08/08/17 at 21:30 Daptomycin/Sodium Chloride (Cubicin/NS) 100 ml @ 200 mls/hr Q24H IVPB Last administered on 08/14/17 00:58; Admin Dose 200 MLS/HR; Start 08/09/17 at 00:00 Acetaminophen/ Hydrocodone Bitart ([place] (7.5-325)) 1 tab Q4H PRN PO PAIN LEVEL 4-7 Last administered on 08/13/17 09:42; Admin Dose 1 TAB; Start at 09:30 Amlodipine Besylate 5 mg 5 mg DAILY PO Last administered on 08/14/17 08:11; Admin Dose 5 MG; Start 08/09/17 at 09:30 Piperacillin Sod/ Tazobactam Sod (Zosyn 2.25gm/ 50ml (Pmx)) 50 ml @ 100 mls/hr Q8 IVPB Last administered on 08/14/17 13:59; Admin Dose 100 MLS/HR; Start at 14:30 Enoxaparin Sodium (Lovenox) 30 mg DAILY SC ; Start 08/13/17 at 09:00 Morphine Sulfate (morphine) 2 mg Q4H PRN IV PAIN LEVEL 6-10 Last administered on 08/14/17 10:00; Admin Dose 2 MG; Start 08/13/17 at 11:30 Ondansetron HCl (Zofran Inj) 4 mg Q4H PRN IV NAUSEA AND/OR VOMITING Last administered on 08/13/17 16:07; Admin Dose 4 MG; Start 08/13/17 at 11:30 Hydralazine HCl (Apresoline) 10 mg Q6H PRN IV ELEVATED BLOOD PRESSURE Last administered on 08/13/17 14:19; Admin Dose 10 MG; Start 08/13/17 at 14:00 Pantoprazole (Protonix Iv) 40 mg DAILY@06 IV ; Start 08/14/17 at 21:00 Metoclopramide HCl (Reglan) 10 mg Q8 IV Last administered on 08/14/17 05:37; Admin Dose 10 MG; Start 08/13/17 at 22:00 EILEEN COBURN Aug 14, 2017 17:38
[2017-08-14] MEDS: SOD CHLORIDE 0.45% 1,000 ML IV SCH (17:55)
[2017-08-14 19:37] VITALS: BP 133/81; RESP 18
[2017-08-14 19:52] LABS: ABNORMAL IP MESSAGE 1; BASOPHILS % 0.5 % (0.0-2.0); HEMATOCRIT 52.9 % (42.0-52.0); HEMOGLOBIN 17.7 g/dl (14.0-18.0); LYMPHOCYTES # 0.5 10^3/ul (0.8-2.9); LYMPHOCYTES % 10.9 % (15.0-51.0); MEAN CORPUSCULAR HEMOGLOBIN 33.9 pg (29.0-33.0); MEAN CORPUSCULAR HGB CONC 33.5 g/dl (32.0-37.0); MEAN CORPUSCULAR VOLUME 101.3 fl (82.0-101.0); MEAN PLATELET VOLUME 11.2 fl (7.4-10.4); MONOCYTE # 0.5 10^3/ul (0.3-0.9); MONOCYTES % 11.7 % (0.0-11.0); NEUTROPHIL # 3.2 10^3/ul (1.6-7.5); NEUTROPHILS % 76.7 % (39.0-77.0); PLATELET COUNT 152 10^3/UL (140-415); POSITIVE DIFF @See below; RED BLOOD COUNT 5.22 10^6/ul (4.70-6.10); RED CELL DISTRIBUTION WIDTH 11.9 % (11.5-14.5); WHITE BLOOD COUNT 4.1 10^3/ul (4.8-10.8)
[2017-08-14 19:54] LABS: CALCIUM 10.2 mg/dl (8.4-10.2); CREATININE 1.81 mg/dl (0.61-1.24); POTASSIUM 5.5 mmol/L (3.5-5.1)
[2017-08-14] MEDS: PANTOPRAZOLE 40 MG INJ IV SCH (20:30)
--- NOTE | 2017-08-14 20:31 | CONS ---
Date/Time of Note Date/Time of Note DATE: 08/14/17 TIME: 20:29 Assessment/Plan Assessment/Plan Additional Assessment/Plan 1. Acute Kidney inury on CKD due to Prerenal azotemia and Infection 2. Left finger infection possibel recurrent OM of left finger 3.h/o OM of R 2nd finger s/p amputation at proximal phalanx neck, and h/o OM of L 3rd finger s/p amputation at middle and distal phalanges 4. 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 h/o ESRD, was on HD - s/p renal transplant in 2009 (on tacrolimus 3mg bid, mycophenolate 540 mg bid, prednisone 5 mg daily), mild renal insufficiency at baseline 6. rheumatoid arthritis 7. chronic HCV infection 8. HTN 9. dyslipidemia 10. h/o polysubstance and IV drug use. 11. h/o pernicious anemia. 12. h/o erosive esophagitis and gastritis Plan: pt has previously had a full CKD work up - no need to repeat it Cr bumped to 1.8, K 5.5- will stop his Prograf due to worsenign Cr and Hyperkalemia- Continue IV NS at 60 cc/hr IV abx as per ID Continue current Immunosuppression for kidney transplant,( Tacrolimus stoppday today - continue mycophenolate 540 mg bid, prednisone 5 mg daily) pt has no signs and symptoms of tracrolimus toxicity, so we will monitor it. Consultation Date/Type/Reason Admit Date/Time Aug 08, 2017 at 16:53 Initial Consult Date 08/09/17 Type of Consultation: NEPHROLOGY Referring Provider: LUPE KAPLAN MD 24 HR Interval Summary Free Text/Dictation Cr bumped to 1.8, K 5.5, pt is on Daptomycin, prograf Exam/Review of Systems Vital Signs Vitals Vital Signs Date Time Temp Pulse Resp B/P Pulse Ox O2 Delivery O2 Flow Rate FiO2 08/14/17 19:37 98.0 79 18 133/81 98 08/13/17 14:43 Room Air Intake and Output 08/13/17 08/13/17 08/14/17 15:00 23:00 07:00 Intake Total 50 ml 290 ml 590 ml Output Total 1100 ml 600 ml Balance 50 ml -810 ml -10 ml Exam Constitutional: alert Psych: no complaints Head: normocephalic ENMT: nl external ears & nose Neck: non-tender, supple Respiratory: clear to auscultation, diminished breath sounds, normal air movement Cardiovascular: nl pulses, regular rate and rhythm Gastrointestinal: non-tender, soft Musculoskeletal: nl extremities to inspection, other ((left finger swelling possible abscess vs OM )) 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, nl mental status, nl speech Results Result Diagram: 08/14/17185208/14/171852 Results 24 hrs Laboratory Tests Test 08/13/17 21:03 08/14/17 08:01 08/14/17 11:57 08/14/17 16:43 Bedside Glucose 150 222 H 163 298 H Test 08/14/17 18:53 White Blood Count 4.1 L Red Blood Count 5.22 Hemoglobin 17.7 Hematocrit 52.9 H Mean Corpuscular Volume 101.3 H Mean Corpuscular Hemoglobin 33.9 H Mean Corpuscular Hemoglobin Concent 33.5 Red Cell Distribution Width 11.9 Platelet Count 152 Mean Platelet Volume 11.2 H Neutrophils % 76.7 Lymphocytes % 10.9 L Monocytes % 11.7 H Eosinophils % 0.0 Basophils % 0.5 Nucleated Red Blood Cells % 0.0 Neutrophils # 3.2 Lymphocytes # 0.5 L Monocytes # 0.5 Eosinophils # 0.0 Basophils # 0.0 Nucleated Red Blood Cells # 0.0 Sodium Level 137 Potassium Level 5.5 H Chloride Level 104 Carbon Dioxide Level 21 Anion Gap 18 #H Blood Urea Nitrogen 29 H Creatinine 1.81 H Glucose Level 314 #H Calcium Level 10.2 Medications Medications Current Medications Clonidine (Catapres) 0.1 mg Q4H PRN PO ELEVATED BLOOD PRESSURE Last administered on 08/12/17 06:11; Admin Dose 0.1 MG; Start 08/08/17 at 21:00 Metoprolol Tartrate (Lopressor) 50 mg BID PO Last administered on 08/14/17 08 :11; Admin Dose 50 MG; Start 08/08/17 at 21:26 Mycophenolate Sodium (Myfortic) 540 mg BID PO Last administered on 08/14/17 08:12; Admin Dose 540 MG; Start 08/08/17 at 22:00 Prednisone (Prednisone) 5 mg DAILY PO Last administered on 10/12/17at 08:10; Admin Dose 5 MG; Start 08/09/17 at 09:00 Tacrolimus (Prograf) 3 mg BID PO Last administered on 08/14/17 08:09; Admin Dose 3 MG; Start 08/08/17 at 21:00 Diagnostic Test (Pha) (Accu-Chek) 1 ea 02 XX ; Start 08/09/17 at 02:00 Miscellaneous Information 1 ea NOTE XX ; Start 08/08/17 at 21:30 Glucose (Glutose) 15 gm Q15M PRN PO DECREASED GLUCOSE; Start 08/08/17 at 21:30 Glucose (Glutose) 22.5 gm Q15M PRN PO DECREASED GLUCOSE; Start 08/08/17 at 21: 30 Dextrose (D50w Syringe) 25 ml Q15M PRN IV DECREASED GLUCOSE; Start 08/08/17 at 21:30 Dextrose (D50w Syringe) 50 ml Q15M PRN IV DECREASED GLUCOSE; Start 08/08/17 at 21:30 Glucagon (Glucagen) 1 mg Q15M PRN IM DECREASED GLUCOSE; Start 08/08/17 at 21:30 Glucose 15 gm 15 gm Q15M PRN BUCCAL DECREASED GLUCOSE; Start 08/08/17 at 21:30 Daptomycin/Sodium Chloride (Cubicin/NS) 100 ml @ 200 mls/hr Q24H IVPB Last administered on 08/14/17 00:58; Admin Dose 200 MLS/HR; Start 08/09/17 at 00:00 Acetaminophen/ Hydrocodone Bitart ([place] (7.5-325)) 1 tab Q4H PRN PO PAIN LEVEL 4-7 Last administered on 08/13/17 09:42; Admin Dose 1 TAB; Start at 09:30 Amlodipine Besylate 5 mg 5 mg DAILY PO Last administered on 08/14/17 08:11; Admin Dose 5 MG; Start 08/09/17 at 09:30 Piperacillin Sod/ Tazobactam Sod (Zosyn 2.25gm/ 50ml (Pmx)) 50 ml @ 100 mls/hr Q8 IVPB Last administered on 08/14/17 13:59; Admin Dose 100 MLS/HR; Start at 14:30 Enoxaparin Sodium (Lovenox) 30 mg DAILY SC ; Start 08/13/17 at 09:00 Morphine Sulfate (morphine) 2 mg Q4H PRN IV PAIN LEVEL 6-10 Last administered on 08/14/17 17:56; Admin Dose 2 MG; Start 08/13/17 at 11:30 Ondansetron HCl (Zofran Inj) 4 mg Q4H PRN IV NAUSEA AND/OR VOMITING Last administered on 08/13/17 16:07; Admin Dose 4 MG; Start 08/13/17 at 11:30 Hydralazine HCl (Apresoline) 10 mg Q6H PRN IV ELEVATED BLOOD PRESSURE Last administered on 08/13/17 14:19; Admin Dose 10 MG; Start 08/13/17 at 14:00 Pantoprazole (Protonix Iv) 40 mg DAILY@06 IV ; Start 08/14/17 at 21:00 Metoclopramide HCl (Reglan) 10 mg Q8 IV Last administered on 08/14/17 05:37; Admin Dose 10 MG; Start 08/13/17 at 22:00 Insulin Glargine 8 unit 8 unit BID SC ; Start 08/14/17 at 21:00 Sodium Chloride (1/2 NS) 1,000 ml @ 60 mls/hr [id number] IV Last administered on 08/14/17 17:55; Admin Dose 60 MLS/HR; Start 08/14/17 at 18:00 SHAKA SIMPSON MD Aug 14, 2017 20:31
[2017-08-14] MEDS: INSULIN GLARGINE [LANtus] 3 ML PEN SC SCH (21:09)
[2017-08-15] MEDS: DAPTOMYCIN 250 MG in SOD CHLORIDE 0.9% 100 ML IVPB SCH (00:21)
[2017-08-15] MEDS: ACCU-CHEK XX SCH (02:00)
[2017-08-15] MEDS: METOCLOPRAMIDE 10 MG INJ IV SCH ×3 (05:07→21:25)
[2017-08-15] MEDS: PANTOPRAZOLE 40 MG INJ IV SCH (05:07)
[2017-08-15] MEDS: PIPER-TAZO 2.25 GM (PMX) 50 ML IVPB SCH ×3 (05:07→21:26)
[2017-08-15 06:12] LABS: BASOPHILS % 0.6 % (0.0-2.0); EOSINOPHILS # 0.1 10^3/ul (0.0-0.5); EOSINOPHILS % 1.2 % (0.0-7.0); HEMATOCRIT 47.1 % (42.0-52.0); HEMOGLOBIN 15.5 g/dl (14.0-18.0); LYMPHOCYTES # 1.2 10^3/ul (0.8-2.9); LYMPHOCYTES % 23.4 % (15.0-51.0); MEAN CORPUSCULAR HEMOGLOBIN 33.3 pg (29.0-33.0); MEAN CORPUSCULAR HGB CONC 32.9 g/dl (32.0-37.0); MEAN CORPUSCULAR VOLUME 101.3 fl (82.0-101.0); MEAN PLATELET VOLUME 11.2 fl (7.4-10.4); MONOCYTE # 0.7 10^3/ul (0.3-0.9); MONOCYTES % 13.7 % (0.0-11.0); NEUTROPHIL # 3.1 10^3/ul (1.6-7.5); NEUTROPHILS % 60.7 % (39.0-77.0); PLATELET COUNT 149 10^3/UL (140-415); RED BLOOD COUNT 4.65 10^6/ul (4.70-6.10); RED CELL DISTRIBUTION WIDTH 11.9 % (11.5-14.5); WHITE BLOOD COUNT 5.1 10^3/ul (4.8-10.8)
[2017-08-15 06:26] LABS: CALCIUM 10.4 mg/dl (8.4-10.2); CREATININE 1.76 mg/dl (0.61-1.24)
[2017-08-15 07:22] VITALS: BP 139/51; RESP 18
[2017-08-15] MEDS: INSULIN ASPART [NOVOLOG] 3 ML PEN SC SCH ×4 (08:04→21:00)
[2017-08-15] MEDS: METOPROLOL 50 MG TAB PO SCH ×2 (08:14→21:25)
[2017-08-15] MEDS: predniSONE 5 MG TAB PO SCH (08:14)
[2017-08-15] MEDS: MYCOPHENOLATE (SR) 180 MG TAB PO SCH ×2 (08:14→20:42)
[2017-08-15] MEDS: HYDROCODONE/APAP (7.5/325) TAB PO PRN ×3 (08:30→20:42)
[2017-08-15] MEDS: INSULIN GLARGINE [LANtus] 3 ML PEN SC SCH ×2 (08:44→21:29)
[2017-08-15] MEDS: ENOXAPARIN 30 MG/0.3 ML SYG SC SCH (09:00)
--- NOTE | 2017-08-15 09:36 | CONS ---
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 (XR showed periosteal reaction at the tip of R 3rd distal phalanx, suspicious for OM, MRI showed cellulitis of distal R 4th phalanx, without OM) and L 2nd fingertip (XR showed cortical irregularity at the tuft of L 2nd distal phalanx with overlying soft tissue defect, suggesting early OM, MRI showed OM at L 2nd distal phalanx with, cellulitis about L 2nd distal phalanx without drainable fluid collection.) - h/o OM of R 2nd finger s/p amputation at proximal phalanx neck, and h/o OM of L 3rd finger s/p amputation at middle and distal phalanges - DM - Juan's esophagus and gastritis s/p EGD on 08/12/2017. No H. pylori on Bx - h/o ESRD, was on HD - s/p renal transplant in 2009 (on tacrolimus 3mg bid, mycophenolate 540 mg bid , prednisone 5 mg daily), mild renal insufficiency at baseline - rheumatoid arthritis - chronic HCV infection - HTN - dyslipidemia - h/o polysubstance and IV drug use. - h/o pernicious anemia. - h/o hyperparathyroidism. recommendations - continue pip/tazo and daptomycin (08/09/2017-). I recommend 6 weeks of IV antibiotics for his recurrent OM. Need to monitor CK while Pt's on daptomycin. CK was 25 on 08/12/2017. Will adjust the dose according to GFR - hand hygiene and prevention of injuries and infection at work discussed with Pt several times during this admission. He understood. 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 Problems: Consultation Date/Type/Reason Admit Date/Time Aug 08, 2017 at 16:53 Initial Consult Date 08/09/17 Type of Consultation: ID Referring Provider: LUPE KAPLAN MD 24 HR Interval Summary Constitutional: improved Detailed Summary Eyes: no complaints ENT: no complaints Respiratory: no complaints Cardiovascular: no complaints Gastrointestinal: no complaints Genitourinary: no complaints Musculoskeletal: other (denies pain of L 2nd finger), swelling (L 2nd finger), No bone/joint pain, No restricted range of motion Skin: laceration (from prior injuries on various fingertips) Neurologic: no complaints Endocrine: no complaints Exam/Review of Systems Vital Signs Vitals Vital Signs Date Time Temp Pulse Resp B/P Pulse Ox O2 Delivery O2 Flow Rate FiO2 08/15/17 07:22 97.7 64 18 139/51 08/14/17 19:37 98 08/13/17 14:43 Room Air Intake and Output 08/14/17 08/14/17 08/15/17 15:00 23:00 07:00 Intake Total 50 ml 720 ml 1650 ml Output Total 650 ml Balance 50 ml 720 ml 1000 ml Exam Constitutional: alert, oriented, well developed Psych: nl mood/affect, no complaints Head: atraumatic, normocephalic Eyes: nl conjunctiva, nl lids ENMT: nl external ears & nose, nl nasal mucosa & septum Neck: supple Musculoskeletal: range of motion (full of L 2nd finger), swelling (of L 2nd finger, but no induration or tenderness) Extremities: No edema Skin: other (pale color and scab on L 2nd finger, but no drainage) Results Result Diagram: 08/15/17 0530 08/15/17 0530 Results 24 hrs Laboratory Tests Test 08/14/17 11:57 08/14/17 16:43 08/14/17 18:53 08/14/17 20:28 Bedside Glucose 163 298 H 264 H White Blood Count 4.1 L Red Blood Count 5.22 Hemoglobin 17.7 Hematocrit 52.9 H Mean Corpuscular Volume 101.3 H Mean Corpuscular Hemoglobin 33.9 H Mean Corpuscular Hemoglobin Concent 33.5 Red Cell Distribution Width 11.9 Platelet Count 152 Mean Platelet Volume 11.2 H Neutrophils % 76.7 Lymphocytes % 10.9 L Monocytes % 11.7 H Eosinophils % 0.0 Basophils % 0.5 Nucleated Red Blood Cells % 0.0 Neutrophils # 3.2 Lymphocytes # 0.5 L Monocytes # 0.5 Eosinophils # 0.0 Basophils # 0.0 Nucleated Red Blood Cells # 0.0 Sodium Level 137 Potassium Level 5.5 H Chloride Level 104 Carbon Dioxide Level 21 Anion Gap 18 #H Blood Urea Nitrogen 29 H Creatinine 1.81 H Glucose Level 314 #H Calcium Level 10.2 Test 08/15/17 02:47 08/15/17 05:30 08/15/17 08:02 Bedside Glucose 108 120 White Blood Count 5.1 # Red Blood Count 4.65 L Hemoglobin 15.5 Hematocrit 47.1 Mean Corpuscular Volume 101.3 H Mean Corpuscular Hemoglobin 33.3 H Mean Corpuscular Hemoglobin Concent 32.9 Red Cell Distribution Width 11.9 Platelet Count 149 Mean Platelet Volume 11.2 H Neutrophils % 60.7 Lymphocytes % 23.4 Monocytes % 13.7 H Eosinophils % 1.2 Basophils % 0.6 Nucleated Red Blood Cells % 0.0 Neutrophils # 3.1 Lymphocytes # 1.2 Monocytes # 0.7 Eosinophils # 0.1 Basophils # 0.0 Nucleated Red Blood Cells # 0.0 Sodium Level 138 Potassium Level 5.0 Chloride Level 105 Carbon Dioxide Level 26 Anion Gap 12 Blood Urea Nitrogen 28 H Creatinine 1.76 H Glucose Level 126 # Calcium Level 10.4 H Medications Medications Current Medications Clonidine (Catapres) 0.1 mg Q4H PRN PO ELEVATED BLOOD PRESSURE Last administered on 08/12/17 06:11; Admin Dose 0.1 MG; Start 08/08/17 at 21:00 Metoprolol Tartrate (Lopressor) 50 mg BID PO Last administered on 08/15/17 08 :14; Admin Dose 50 MG; Start 08/08/17 at 21:26 Mycophenolate Sodium (Myfortic) 540 mg BID PO Last administered on 08/15/17 08:14; Admin Dose 540 MG; Start 08/08/17 at 22:00 Prednisone (Prednisone) 5 mg DAILY PO Last administered on 08/15/17 08:14; Admin Dose 5 MG; Start 08/09/17 at 09:00 Diagnostic Test (Pha) (Accu-Chek) 1 ea 02 XX Last administered on 08/15/17 02 :00; Admin Dose 1 EA; Start 08/09/17 at 02:00 Miscellaneous Information 1 ea NOTE XX ; Start 08/08/17 at 21:30 Glucose (Glutose) 15 gm Q15M PRN PO DECREASED GLUCOSE; Start 08/08/17 at 21:30 Glucose (Glutose) 22.5 gm Q15M PRN PO DECREASED GLUCOSE; Start 08/08/17 at 21: 30 Dextrose (D50w Syringe) 25 ml Q15M PRN IV DECREASED GLUCOSE; Start 08/08/17 at 21:30 Dextrose (D50w Syringe) 50 ml Q15M PRN IV DECREASED GLUCOSE; Start 08/08/17 at 21:30 Glucagon (Glucagen) 1 mg Q15M PRN IM DECREASED GLUCOSE; Start 08/08/17 at 21:30 Glucose 15 gm 15 gm Q15M PRN BUCCAL DECREASED GLUCOSE; Start 08/08/17 at 21:30 Daptomycin/Sodium Chloride (Cubicin/NS) 100 ml @ 200 mls/hr Q24H IVPB Last administered on 08/15/17 00:21; Admin Dose 200 MLS/HR; Start 08/09/17 at 00:00 Acetaminophen/ Hydrocodone Bitart ([place] (7.5-325)) 1 tab Q4H PRN PO PAIN LEVEL 4-7 Last administered on 08/15/17 08:30; Admin Dose 1 TAB; Start at 09:30 Amlodipine Besylate 5 mg 5 mg DAILY PO Last administered on 08/14/17 08:11; Admin Dose 5 MG; Start 08/09/17 at 09:30 Piperacillin Sod/ Tazobactam Sod (Zosyn 2.25gm/ 50ml (Pmx)) 50 ml @ 100 mls/hr Q8 IVPB Last administered on 08/15/17 05:07; Admin Dose 100 MLS/HR; Start at 14:30 Enoxaparin Sodium (Lovenox) 30 mg DAILY SC ; Start 08/13/17 at 09:00 Morphine Sulfate (morphine) 2 mg Q4H PRN IV PAIN LEVEL 6-10 Last administered on 08/14/17 20:55; Admin Dose 2 MG; Start 08/13/17 at 11:30 Ondansetron HCl (Zofran Inj) 4 mg Q4H PRN IV NAUSEA AND/OR VOMITING Last administered on 08/13/17 16:07; Admin Dose 4 MG; Start 08/13/17 at 11:30 Hydralazine HCl (Apresoline) 10 mg Q6H PRN IV ELEVATED BLOOD PRESSURE Last administered on 08/13/17 14:19; Admin Dose 10 MG; Start 08/13/17 at 14:00 Pantoprazole (Protonix Iv) 40 mg DAILY@06 IV Last administered on 08/15/17 05 :07; Admin Dose 40 MG; Start 08/14/17 at 21:00 Metoclopramide HCl (Reglan) 10 mg Q8 IV Last administered on 08/15/17 05:07; Admin Dose 10 MG; Start 08/13/17 at 22:00 Insulin Glargine 8 unit 8 unit BID SC Last administered on 08/15/17 08:44; Admin Dose 8 UNIT; Start 08/14/17 at 21:00 Sodium Chloride (1/2 NS) 1,000 ml @ 60 mls/hr [id number] IV Last administered on 08/14/17 17:55; Admin Dose 60 MLS/HR; Start 08/14/17 at 18:00 MAGO VAIL M.D. Aug 15, 2017 09:36
[2017-08-15] MEDS: AMLODIPINE 5 MG TAB PO SCH (09:47)
[2017-08-15 09:48] VITALS: BP 127/80; PULSE 54
[2017-08-15] MEDS: SOD CHLORIDE 0.45% 1,000 ML IV SCH ×2 (10:29→14:03)
[2017-08-15 12:54] VITALS: BP 122/54; RESP 18
--- NOTE | 2017-08-15 14:35 | CONS ---
Date/Time of Note Date/Time of Note DATE: 08/15/17 TIME: 14:33 Assessment/Plan Assessment/Plan Additional Assessment/Plan 1. Acute Kidney inury on CKD due to Prerenal azotemia and Infection 2. Left finger infection possibel recurrent OM of left finger 3.h/o OM of R 2nd finger s/p amputation at proximal phalanx neck, and h/o OM of L 3rd finger s/p amputation at middle and distal phalanges 4. 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 h/o ESRD, was on HD - s/p renal transplant in 2009 (on tacrolimus 3mg bid, mycophenolate 540 mg bid, prednisone 5 mg daily), mild renal insufficiency at baseline 6. rheumatoid arthritis 7. chronic HCV infection 8. HTN 9. dyslipidemia 10. h/o polysubstance and IV drug use. 11. h/o pernicious anemia. 12. h/o erosive esophagitis and gastritis 13. Hyperkalemia- resolved after prograf stopped Plan: pt has previously had a full CKD work up - no need to repeat it Cr slightly improved to 1.76- K normal today, Prograf was stopped yesterday , we will continue to hold off prograf now Continue IV NS at 60 cc/hr IV abx as per ID Continue current Immunosuppression for kidney transplant,( Tacrolimus stoppday on - continue mycophenolate 540 mg bid, prednisone 5 mg daily) pt has no signs and symptoms of tracrolimus toxicity, so we will monitor it. Consultation Date/Type/Reason Admit Date/Time Aug 08, 2017 at 16:53 Initial Consult Date 08/09/17 Type of Consultation: NEPHROLOGY Referring Provider: LUPE KAPLAN MD 24 HR Interval Summary Free Text/Dictation doing ok, BP stable, Cr 1.76- sligklty better than last time Exam/Review of Systems Vital Signs Vitals Vital Signs Date Time Temp Pulse Resp B/P Pulse Ox O2 Delivery O2 Flow Rate FiO2 08/15/17 12:54 98.0 62 18 122/54 100 08/13/17 14:43 Room Air Intake and Output 08/14/17 08/14/17 08/15/17 15:00 23:00 07:00 Intake Total 50 ml 720 ml 1650 ml Output Total 650 ml Balance 50 ml 720 ml 1000 ml Exam Constitutional: alert Psych: no complaints Head: normocephalic ENMT: nl external ears & nose Neck: non-tender, supple Respiratory: clear to auscultation, diminished breath sounds, normal air movement Cardiovascular: nl pulses, regular rate and rhythm Gastrointestinal: non-tender, soft Musculoskeletal: nl extremities to inspection, other ((left finger swelling )) 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: MACHINE SETUP OPERATOR II-XII intact, nl mental status, nl speech Results Result Diagram: 08/15/17 0530 08/15/17 0530 Results 24 hrs Laboratory Tests Test 08/14/17 16:43 08/14/17 18:53 08/14/17 20:28 08/15/17 02:47 Bedside Glucose 298 H 264 H 108 White Blood Count 4.1 L Red Blood Count 5.22 Hemoglobin 17.7 Hematocrit 52.9 H Mean Corpuscular Volume 101.3 H Mean Corpuscular Hemoglobin 33.9 H Mean Corpuscular Hemoglobin Concent 33.5 Red Cell Distribution Width 11.9 Platelet Count 152 Mean Platelet Volume 11.2 H Neutrophils % 76.7 Lymphocytes % 10.9 L Monocytes % 11.7 H Eosinophils % 0.0 Basophils % 0.5 Nucleated Red Blood Cells % 0.0 Neutrophils # 3.2 Lymphocytes # 0.5 L Monocytes # 0.5 Eosinophils # 0.0 Basophils # 0.0 Nucleated Red Blood Cells # 0.0 Sodium Level 137 Potassium Level 5.5 H Chloride Level 104 Carbon Dioxide Level 21 Anion Gap 18 #H Blood Urea Nitrogen 29 H Creatinine 1.81 H Glucose Level 314 #H Calcium Level 10.2 Test 08/15/17 05:30 08/15/17 08:02 08/15/17 12:05 White Blood Count 5.1 # Red Blood Count 4.65 L Hemoglobin 15.5 Hematocrit 47.1 Mean Corpuscular Volume 101.3 H Mean Corpuscular Hemoglobin 33.3 H Mean Corpuscular Hemoglobin Concent 32.9 Red Cell Distribution Width 11.9 Platelet Count 149 Mean Platelet Volume 11.2 H Neutrophils % 60.7 Lymphocytes % 23.4 Monocytes % 13.7 H Eosinophils % 1.2 Basophils % 0.6 Nucleated Red Blood Cells % 0.0 Neutrophils # 3.1 Lymphocytes # 1.2 Monocytes # 0.7 Eosinophils # 0.1 Basophils # 0.0 Nucleated Red Blood Cells # 0.0 Sodium Level 138 Potassium Level 5.0 Chloride Level 105 Carbon Dioxide Level 26 Anion Gap 12 Blood Urea Nitrogen 28 H Creatinine 1.76 H Glucose Level 126 # Calcium Level 10.4 H Bedside Glucose 120 188 Medications Medications Current Medications Clonidine (Catapres) 0.1 mg Q4H PRN PO ELEVATED BLOOD PRESSURE Last administered on 08/12/17 06:11; Admin Dose 0.1 MG; Start 08/08/17 at 21:00 Metoprolol Tartrate (Lopressor) 50 mg BID PO Last administered on 08/15/17 08 :14; Admin Dose 50 MG; Start 08/08/17 at 21:26 Mycophenolate Sodium (Myfortic) 540 mg BID PO Last administered on 08/15/17 08:14; Admin Dose 540 MG; Start 08/08/17 at 22:00 Prednisone (Prednisone) 5 mg DAILY PO Last administered on 08/15/17 08:14; Admin Dose 5 MG; Start 08/09/17 at 09:00 Diagnostic Test (Pha) (Accu-Chek) 1 ea 02 XX Last administered on 08/15/17 02 :00; Admin Dose 1 EA; Start 08/09/17 at 02:00 Miscellaneous Information 1 ea NOTE XX ; Start 08/08/17 at 21:30 Glucose (Glutose) 15 gm Q15M PRN PO DECREASED GLUCOSE; Start 08/08/17 at 21:30 Glucose (Glutose) 22.5 gm Q15M PRN PO DECREASED GLUCOSE; Start 08/08/17 at 21: 30 Dextrose (D50w Syringe) 25 ml Q15M PRN IV DECREASED GLUCOSE; Start 08/08/17 at 21:30 Dextrose (D50w Syringe) 50 ml Q15M PRN IV DECREASED GLUCOSE; Start 08/08/17 at 21:30 Glucagon (Glucagen) 1 mg Q15M PRN IM DECREASED GLUCOSE; Start 08/08/17 at 21:30 Glucose (Glutose) 15 gm Q15M PRN BUCCAL DECREASED GLUCOSE; Start 08/08/17 at 21 :30 Acetaminophen/ Hydrocodone Bitart ([place] (7.5-325)) 1 tab Q4H PRN PO PAIN LEVEL 4-7 Last administered on 08/15/17 14:17; Admin Dose 1 TAB; Start at 09:30 Amlodipine Besylate 5 mg 5 mg DAILY PO Last administered on 08/15/17 09:47; Admin Dose 5 MG; Start 08/09/17 at 09:30 Piperacillin Sod/ Tazobactam Sod (Zosyn 2.25gm/ 50ml (Pmx)) 50 ml @ 100 mls/hr Q8 IVPB Last administered on 08/15/17 05:07; Admin Dose 100 MLS/HR; Start at 14:30 Enoxaparin Sodium (Lovenox) 30 mg DAILY SC ; Start 08/13/17 at 09:00 Morphine Sulfate (morphine) 2 mg Q4H PRN IV PAIN LEVEL 6-10 Last administered on 08/14/17 20:55; Admin Dose 2 MG; Start 08/13/17 at 11:30 Ondansetron HCl (Zofran Inj) 4 mg Q4H PRN IV NAUSEA AND/OR VOMITING Last administered on 08/13/17 16:07; Admin Dose 4 MG; Start 08/13/17 at 11:30 Hydralazine HCl (Apresoline) 10 mg Q6H PRN IV ELEVATED BLOOD PRESSURE Last administered on 08/13/17 14:19; Admin Dose 10 MG; Start 08/13/17 at 14:00 Pantoprazole (Protonix Iv) 40 mg DAILY@06 IV Last administered on 08/15/17 05 :07; Admin Dose 40 MG; Start 08/14/17 at 21:00 Metoclopramide HCl (Reglan) 10 mg Q8 IV Last administered on 08/15/17 14:10; Admin Dose 10 MG; Start 08/13/17 at 22:00 Insulin Glargine 8 unit 8 unit BID SC Last administered on 08/15/17 08:44; Admin Dose 8 UNIT; Start 08/14/17 at 21:00 Sodium Chloride 1,000 ml @ 60 mls/hr [id number] IV Last administered on 14:03; Admin Dose 60 MLS/HR; Start 08/14/17 at 18:00 Daptomycin/Sodium Chloride (Cubicin/NS) 100 ml @ 200 mls/hr Q48H IVPB ; Start 08/17/17 at 00:00 SHAKA SIMPSON MD Aug 15, 2017 14:35
--- NOTE | 2017-08-15 15:56 | RADRPT ---
Vent Rate: 60 bpm RR Interval: 0 msec IN Interval: 174 msec QRS Duration: 86 msec QT Interval: 446 msec QTC Interval: 446 msec P-R-T [place]: 79 - 72 - 81 degrees Normal sinus rhythm with sinus arrhythmia Septal infarct , age undetermined Abnormal ECG Electronically Signed By: Freeman Carrillo [id number]
--- NOTE | 2017-08-15 16:44 | PN ---
Date/Time of Note Date/Time of Note DATE: 08/15/17 TIME: 16:43 Assessment/Plan VTE Prophylaxis VTE Prophylaxis Intervention: SCD's Lines/Catheters IV [facility]ter Type (from [facility]): Peripheral IV Urinary Cath still in place: No Assessment/Plan Chief Complaint/Hosp Course Pt denies any emesis denies nausea denies abdominal pain. Assessment/Plan - Right 3rd finger distal osteomyelitis. Left index finger distal phalanx also suggests early osteomyelitis. Continue antibiotics per ID. Dr. Awan is following infection disease consultation. - Juan's esophagus and severe gastritis per EGD on 08/13. Continue Protonix. - Weight loss, abdominal pain and melenic stools. Dr Hartley is following in in gastroenterology consultation. - End-stage renal disease, status post kidney transplant in 2009. Continued on antirejection therapy with baseline creatinine is about 1.5. - Hypertension. Continue Norvasc and metoprolol. - Diabetes mellitus. Continue NovoLog per mild algorithm sliding scale. - Hepatitis C. Further recommendations based on clinical course. Plan of care discussed with Dr. Maier. Problems: Exam/Review of Systems Vital Signs Vitals Vital Signs Date Time Temp Pulse Resp B/P Pulse Ox O2 Delivery O2 Flow Rate FiO2 08/15/17 12:54 98.0 62 18 122/54 100 08/13/17 14:43 Room Air Intake and Output 08/14/17 08/14/17 08/15/17 15:00 23:00 07:00 Intake Total 50 ml 720 ml 1650 ml Output Total 650 ml Balance 50 ml 720 ml 1000 ml Exam Constitutional: alert, oriented Head: normocephalic Neck: supple Respiratory: normal air movement Cardiovascular: nl pulses Gastrointestinal: non-tender, soft Extremities: normal pulses, other (swelling L 2nd distal phalanx) Results Result Diagram: 08/15/17 0530 08/15/17 0530 Results 24 hrs Laboratory Tests Test 08/14/17 18:53 08/14/17 20:28 08/15/17 02:47 08/15/17 05:30 White Blood Count 4.1 L 5.1 # Red Blood Count 5.22 4.65 L Hemoglobin 17.7 15.5 Hematocrit 52.9 H 47.1 Mean Corpuscular Volume 101.3 H 101.3 H Mean Corpuscular Hemoglobin 33.9 H 33.3 H Mean Corpuscular Hemoglobin Concent 33.5 32.9 Red Cell Distribution Width 11.9 11.9 Platelet Count 152 149 Mean Platelet Volume 11.2 H 11.2 H Neutrophils % 76.7 60.7 Lymphocytes % 10.9 L 23.4 Monocytes % 11.7 H 13.7 H Eosinophils % 0.0 1.2 Basophils % 0.5 0.6 Nucleated Red Blood Cells % 0.0 0.0 Neutrophils # 3.2 3.1 Lymphocytes # 0.5 L 1.2 Monocytes # 0.5 0.7 Eosinophils # 0.0 0.1 Basophils # 0.0 0.0 Nucleated Red Blood Cells # 0.0 0.0 Sodium Level 137 138 Potassium Level 5.5 H 5.0 Chloride Level 104 105 Carbon Dioxide Level 21 26 Anion Gap 18 #H 12 Blood Urea Nitrogen 29 H 28 H Creatinine 1.81 H 1.76 H Glucose Level 314 #H 126 # Calcium Level 10.2 10.4 H Bedside Glucose 264 H 108 Test 08/15/17 08:02 08/15/17 12:05 Bedside Glucose 120 188 Medications Medications Current Medications Clonidine (Catapres) 0.1 mg Q4H PRN PO ELEVATED BLOOD PRESSURE Last administered on 08/12/17 06:11; Admin Dose 0.1 MG; Start 08/08/17 at 21:00 Metoprolol Tartrate (Lopressor) 50 mg BID PO Last administered on 08/15/17 08 :14; Admin Dose 50 MG; Start 08/08/17 at 21:26 Mycophenolate Sodium (Myfortic) 540 mg BID PO Last administered on 08/15/17 08:14; Admin Dose 540 MG; Start 08/08/17 at 22:00 Prednisone (Prednisone) 5 mg DAILY PO Last administered on 08/15/17 08:14; Admin Dose 5 MG; Start 08/09/17 at 09:00 Diagnostic Test (Pha) (Accu-Chek) 1 ea 02 XX Last administered on 08/15/17 02 :00; Admin Dose 1 EA; Start 08/09/17 at 02:00 Miscellaneous Information 1 ea NOTE XX ; Start 08/08/17 at 21:30 Glucose (Glutose) 15 gm Q15M PRN PO DECREASED GLUCOSE; Start 08/08/17 at 21:30 Glucose (Glutose) 22.5 gm Q15M PRN PO DECREASED GLUCOSE; Start 08/08/17 at 21: 30 Dextrose (D50w Syringe) 25 ml Q15M PRN IV DECREASED GLUCOSE; Start 08/08/17 at 21:30 Dextrose (D50w Syringe) 50 ml Q15M PRN IV DECREASED GLUCOSE; Start 08/08/17 at 21:30 Glucagon (Glucagen) 1 mg Q15M PRN IM DECREASED GLUCOSE; Start 08/08/17 at 21:30 Glucose (Glutose) 15 gm Q15M PRN BUCCAL DECREASED GLUCOSE; Start 08/08/17 at 21 :30 Acetaminophen/ Hydrocodone Bitart ([place] (7.5-325)) 1 tab Q4H PRN PO PAIN LEVEL 4-7 Last administered on 08/15/17 14:17; Admin Dose 1 TAB; Start at 09:30 Amlodipine Besylate 5 mg 5 mg DAILY PO Last administered on 08/15/17 09:47; Admin Dose 5 MG; Start 08/09/17 at 09:30 Piperacillin Sod/ Tazobactam Sod (Zosyn 2.25gm/ 50ml (Pmx)) 50 ml @ 100 mls/hr Q8 IVPB Last administered on 08/15/17 14:44; Admin Dose 100 MLS/HR; Start at 14:30 Enoxaparin Sodium (Lovenox) 30 mg DAILY SC ; Start 08/13/17 at 09:00 Morphine Sulfate (morphine) 2 mg Q4H PRN IV PAIN LEVEL 6-10 Last administered on 08/14/17 20:55; Admin Dose 2 MG; Start 08/13/17 at 11:30 Ondansetron HCl (Zofran Inj) 4 mg Q4H PRN IV NAUSEA AND/OR VOMITING Last administered on 08/13/17 16:07; Admin Dose 4 MG; Start 08/13/17 at 11:30 Hydralazine HCl (Apresoline) 10 mg Q6H PRN IV ELEVATED BLOOD PRESSURE Last administered on 08/13/17 14:19; Admin Dose 10 MG; Start 08/13/17 at 14:00 Pantoprazole (Protonix Iv) 40 mg DAILY@06 IV Last administered on 08/15/17 05 :07; Admin Dose 40 MG; Start 08/14/17 at 21:00 Metoclopramide HCl (Reglan) 10 mg Q8 IV Last administered on 08/15/17 14:10; Admin Dose 10 MG; Start 08/13/17 at 22:00 Insulin Glargine 8 unit 8 unit BID SC Last administered on 08/15/17 08:44; Admin Dose 8 UNIT; Start 08/14/17 at 21:00 Sodium Chloride 1,000 ml @ 60 mls/hr [id number] IV Last administered on 14:03; Admin Dose 60 MLS/HR; Start 08/14/17 at 18:00 Daptomycin/Sodium Chloride (Cubicin/NS) 100 ml @ 200 mls/hr Q48H IVPB ; Start 08/17/17 at 00:00 LETI RODRIGUEZ Aug 15, 2017 16:44
--- NOTE | 2017-08-15 18:45 | CONS ---
Date/Time of Note Date/Time of Note DATE: 08/15/17 TIME: 18:45 Assessment/Plan Assessment/Plan Additional Assessment/Plan IMPRESSION: 1. Osteomyelitis of the finger. 2. Diabetes mellitus. 3. Status post renal transplant, on immunosuppressive medication. 4. Hepatitis C virus infection in the past. 5. Epigastric pain for months. 6. Significant weight loss. The patient definitely looks cachectic. 7. History of melena which stopped 5 days ago. 8. Cachexia 9. Juan esophagus 10. Distended gallbladder but normal biliary system Plan Continue PPI Reglan for nausea vomiting Megace to improved appetite Consultation Date/Type/Reason Admit Date/Time Aug 08, 2017 at 16:53 Initial Consult Date 08/09/17 Type of Consultation: NEPHROLOGY Referring Provider: LUPE KAPLAN MD 24 HR Interval Summary Free Text/Dictation Appetite is improving slowly Constitutional: improved Exam/Review of Systems Vital Signs Vitals Vital Signs Date Time Temp Pulse Resp B/P Pulse Ox O2 Delivery O2 Flow Rate FiO2 08/15/17 12:54 98.0 62 18 122/54 100 08/13/17 14:43 Room Air Intake and Output 08/14/17 08/14/17 08/15/17 15:00 23:00 07:00 Intake Total 50 ml 720 ml 1650 ml Output Total 650 ml Balance 50 ml 720 ml 1000 ml Exam Constitutional: alert, oriented, well developed Psych: nl mood/affect, no complaints Head: atraumatic, normocephalic Eyes: EOMI, PERRL, nl conjunctiva, nl lids, nl sclera ENMT: nl external ears & nose, nl lips & teeth, nl nasal mucosa & septum Neck: non-tender, supple Respiratory: clear to auscultation, normal air movement Cardiovascular: nl pulses, regular rate and rhythm Gastrointestinal: nl liver, spleen, non-tender, soft Musculoskeletal: nl extremities to inspection, nl gait and stance Extremities: normal pulses 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: SCIENTIFIC ILLUSTRATOR II-XII intact, nl mental status, nl speech, nl strength Skin: nl turgor, No rash or lesions Lymph: nl lymph nodes Results Result Diagram: 08/15/17 0530 08/15/17 0530 Results 24 hrs Laboratory Tests Test 08/14/17 18:53 08/14/17 20:28 08/15/17 02:47 08/15/17 05:30 White Blood Count 4.1 L 5.1 # Red Blood Count 5.22 4.65 L Hemoglobin 17.7 15.5 Hematocrit 52.9 H 47.1 Mean Corpuscular Volume 101.3 H 101.3 H Mean Corpuscular Hemoglobin 33.9 H 33.3 H Mean Corpuscular Hemoglobin Concent 33.5 32.9 Red Cell Distribution Width 11.9 11.9 Platelet Count 152 149 Mean Platelet Volume 11.2 H 11.2 H Neutrophils % 76.7 60.7 Lymphocytes % 10.9 L 23.4 Monocytes % 11.7 H 13.7 H Eosinophils % 0.0 1.2 Basophils % 0.5 0.6 Nucleated Red Blood Cells % 0.0 0.0 Neutrophils # 3.2 3.1 Lymphocytes # 0.5 L 1.2 Monocytes # 0.5 0.7 Eosinophils # 0.0 0.1 Basophils # 0.0 0.0 Nucleated Red Blood Cells # 0.0 0.0 Sodium Level 137 138 Potassium Level 5.5 H 5.0 Chloride Level 104 105 Carbon Dioxide Level 21 26 Anion Gap 18 #H 12 Blood Urea Nitrogen 29 H 28 H Creatinine 1.81 H 1.76 H Glucose Level 314 #H 126 # Calcium Level 10.2 10.4 H Bedside Glucose 264 H 108 Test 08/15/17 08:02 08/15/17 12:05 08/15/17 17:50 Bedside Glucose 120 188 216 Medications Medications Current Medications Clonidine (Catapres) 0.1 mg Q4H PRN PO ELEVATED BLOOD PRESSURE Last administered on 08/12/17 06:11; Admin Dose 0.1 MG; Start 08/08/17 at 21:00 Metoprolol Tartrate (Lopressor) 50 mg BID PO Last administered on 08/15/17 08 :14; Admin Dose 50 MG; Start 08/08/17 at 21:26 Mycophenolate Sodium (Myfortic) 540 mg BID PO Last administered on 08/15/17 08:14; Admin Dose 540 MG; Start 08/08/17 at 22:00 Prednisone (Prednisone) 5 mg DAILY PO Last administered on 08/15/17 08:14; Admin Dose 5 MG; Start 08/09/17 at 09:00 Diagnostic Test (Pha) (Accu-Chek) 1 ea 02 XX Last administered on 08/15/17 02 :00; Admin Dose 1 EA; Start 08/09/17 at 02:00 Miscellaneous Information 1 ea NOTE XX ; Start 08/08/17 at 21:30 Glucose (Glutose) 15 gm Q15M PRN PO DECREASED GLUCOSE; Start 08/08/17 at 21:30 Glucose (Glutose) 22.5 gm Q15M PRN PO DECREASED GLUCOSE; Start 08/08/17 at 21: 30 Dextrose (D50w Syringe) 25 ml Q15M PRN IV DECREASED GLUCOSE; Start 08/08/17 at 21:30 Dextrose (D50w Syringe) 50 ml Q15M PRN IV DECREASED GLUCOSE; Start 08/08/17 at 21:30 Glucagon (Glucagen) 1 mg Q15M PRN IM DECREASED GLUCOSE; Start 08/08/17 at 21:30 Glucose (Glutose) 15 gm Q15M PRN BUCCAL DECREASED GLUCOSE; Start 08/08/17 at 21 :30 Acetaminophen/ Hydrocodone Bitart ([place] (7.5-325)) 1 tab Q4H PRN PO PAIN LEVEL 4-7 Last administered on 08/15/17 14:17; Admin Dose 1 TAB; Start at 09:30 Amlodipine Besylate 5 mg 5 mg DAILY PO Last administered on 08/15/17 09:47; Admin Dose 5 MG; Start 08/09/17 at 09:30 Piperacillin Sod/ Tazobactam Sod (Zosyn 2.25gm/ 50ml (Pmx)) 50 ml @ 100 mls/hr Q8 IVPB Last administered on 08/15/17 14:44; Admin Dose 100 MLS/HR; Start at 14:30 Enoxaparin Sodium (Lovenox) 30 mg DAILY SC ; Start 08/13/17 at 09:00 Morphine Sulfate (morphine) 2 mg Q4H PRN IV PAIN LEVEL 6-10 Last administered on 08/14/17 20:55; Admin Dose 2 MG; Start 08/13/17 at 11:30 Ondansetron HCl (Zofran Inj) 4 mg Q4H PRN IV NAUSEA AND/OR VOMITING Last administered on 08/13/17 16:07; Admin Dose 4 MG; Start 08/13/17 at 11:30 Hydralazine HCl (Apresoline) 10 mg Q6H PRN IV ELEVATED BLOOD PRESSURE Last administered on 08/13/17 14:19; Admin Dose 10 MG; Start 08/13/17 at 14:00 Pantoprazole (Protonix Iv) 40 mg DAILY@06 IV Last administered on 08/15/17 05 :07; Admin Dose 40 MG; Start 08/14/17 at 21:00 Metoclopramide HCl (Reglan) 10 mg Q8 IV Last administered on 08/15/17 14:10; Admin Dose 10 MG; Start 08/13/17 at 22:00 Insulin Glargine 8 unit 8 unit BID SC Last administered on 08/15/17 08:44; Admin Dose 8 UNIT; Start 08/14/17 at 21:00 Sodium Chloride 1,000 ml @ 60 mls/hr [id number] IV Last administered on 14:03; Admin Dose 60 MLS/HR; Start 08/14/17 at 18:00 Daptomycin/Sodium Chloride (Cubicin/NS) 100 ml @ 200 mls/hr Q48H IVPB ; Start 08/17/17 at 00:00 UCHE ZEPEDA MD Aug 15, 2017 18:45
[2017-08-15 20:44] VITALS: BP 188/81; PULSE 60; RESP 18
[2017-08-15 21:30] VITALS: BP 132/78; RESP 18
[2017-08-16 01:30] VITALS: BP 188/88; PULSE 50; RESP 18
[2017-08-16] MEDS: hydrALAzine 20 MG INJ IV PRN (01:33)
[2017-08-16] MEDS: ACCU-CHEK XX SCH (01:39)
[2017-08-16 02:11] VITALS: BP 157/86; RESP 18
[2017-08-16] MEDS: HYDROCODONE/APAP (7.5/325) TAB PO PRN ×4 (02:50→21:38)
[2017-08-16] MEDS: SOD CHLORIDE 0.45% 1,000 ML IV SCH ×2 (03:20→21:39)
[2017-08-16] MEDS: METOCLOPRAMIDE 10 MG INJ IV SCH ×3 (05:31→22:43)
[2017-08-16] MEDS: PANTOPRAZOLE 40 MG INJ IV SCH (05:31)
[2017-08-16] MEDS: PIPER-TAZO 2.25 GM (PMX) 50 ML IVPB SCH ×3 (05:32→22:43)
[2017-08-16 06:32] LABS: BASOPHILS % 0.6 % (0.0-2.0); EOSINOPHILS # 0.1 10^3/ul (0.0-0.5); EOSINOPHILS % 1.2 % (0.0-7.0); HEMOGLOBIN 15.7 g/dl (14.0-18.0); LYMPHOCYTES # 1.2 10^3/ul (0.8-2.9); LYMPHOCYTES % 25.3 % (15.0-51.0); MEAN CORPUSCULAR HEMOGLOBIN 33.6 pg (29.0-33.0); MEAN CORPUSCULAR HGB CONC 33.4 g/dl (32.0-37.0); MEAN CORPUSCULAR VOLUME 100.6 fl (82.0-101.0); MEAN PLATELET VOLUME 11.2 fl (7.4-10.4); MONOCYTE # 0.5 10^3/ul (0.3-0.9); MONOCYTES % 10.4 % (0.0-11.0); NEUTROPHILS % 62.1 % (39.0-77.0); PLATELET COUNT 161 10^3/UL (140-415); RED BLOOD COUNT 4.67 10^6/ul (4.70-6.10); RED CELL DISTRIBUTION WIDTH 11.8 % (11.5-14.5); WHITE BLOOD COUNT 4.8 10^3/ul (4.8-10.8)
[2017-08-16 07:09] LABS: CALCIUM 10.2 mg/dl (8.4-10.2); CREATININE 1.74 mg/dl (0.61-1.24); POTASSIUM 4.4 mmol/L (3.5-5.1)
[2017-08-16 07:39] VITALS: BP 149/70; RESP 18
[2017-08-16] MEDS: INSULIN ASPART [NOVOLOG] 3 ML PEN SC SCH ×4 (07:49→21:34)
[2017-08-16] MEDS: INSULIN GLARGINE [LANtus] 3 ML PEN SC SCH ×2 (07:56→21:34)
[2017-08-16] MEDS: predniSONE 5 MG TAB PO SCH (08:30)
[2017-08-16] MEDS: MYCOPHENOLATE (SR) 180 MG TAB PO SCH ×2 (08:30→21:22)
[2017-08-16] MEDS: METOPROLOL 50 MG TAB PO SCH ×2 (08:31→21:26)
[2017-08-16] MEDS: AMLODIPINE 5 MG TAB PO SCH (08:31)
[2017-08-16] MEDS: ENOXAPARIN 30 MG/0.3 ML SYG SC SCH (09:00)
--- NOTE | 2017-08-16 10:50 | PN ---
Date/Time of Note Date/Time of Note DATE: 08/16/17 TIME: 10:50 Assessment/Plan VTE Prophylaxis VTE Prophylaxis Intervention: other Lines/Catheters IV [facility] Type (from [facility] Peripheral IV Urinary Cath still in place: No Assessment/Plan Chief Complaint/Hosp Course - Right 3rd finger distal osteomyelitis. Left index finger distal phalanx also suggests early osteomyelitis. Continue antibiotics per ID. Dr. Awan is following infection disease consultation. - Juan's esophagus and severe gastritis per EGD on 08/13. Continue Protonix. - Weight loss, abdominal pain and melenic stools. Dr Hartley is following in in gastroenterology consultation. - End-stage renal disease, status post kidney transplant in 2009. Continued on antirejection therapy with baseline creatinine is about 1.5. - Hypertension. Continue Norvasc and metoprolol. - Diabetes mellitus. Continue NovoLog per mild algorithm sliding scale. - Hepatitis C. Problems: Subjective 24 Hr Interval Summary Free Text/Dictation Patient has no complaints Exam/Review of Systems Vital Signs Vitals Vital Signs Date Time Temp Pulse Resp B/P Pulse Ox O2 Delivery O2 Flow Rate FiO2 08/16/17 07:39 97.6 77 18 149/70 99 08/16/17 02:11 Room Air Intake and Output 08/15/17 08/15/17 08/16/17 15:00 23:00 07:00 Intake Total 900 ml 1590 ml Output Total 700 ml 850 ml Balance 200 ml 740 ml Exam Constitutional: well developed Head: atraumatic, normocephalic Neck: supple Respiratory: clear to auscultation Cardiovascular: regular rate and rhythm Gastrointestinal: non-tender, soft Extremities: normal pulses Results Result Diagram: 08/16/17 0515 08/16/17 0515 Results 24 hrs Laboratory Tests Test 08/15/17 12:05 08/15/17 17:50 08/15/17 21:22 08/16/17 01:37 Bedside Glucose 188 216 153 71 Test 08/16/17 05:15 08/16/17 07:48 White Blood Count 4.8 Red Blood Count 4.67 L Hemoglobin 15.7 Hematocrit 47.0 Mean Corpuscular Volume 100.6 Mean Corpuscular Hemoglobin 33.6 H Mean Corpuscular Hemoglobin Concent 33.4 Red Cell Distribution Width 11.8 Platelet Count 161 Mean Platelet Volume 11.2 H Neutrophils % 62.1 Lymphocytes % 25.3 Monocytes % 10.4 Eosinophils % 1.2 Basophils % 0.6 Nucleated Red Blood Cells % 0.0 Neutrophils # 3.0 Lymphocytes # 1.2 Monocytes # 0.5 Eosinophils # 0.1 Basophils # 0.0 Nucleated Red Blood Cells # 0.0 Sodium Level 140 Potassium Level 4.4 Chloride Level 107 Carbon Dioxide Level 24 Anion Gap 13 Blood Urea Nitrogen 25 H Creatinine 1.74 H Glucose Level 82 # Calcium Level 10.2 Bedside Glucose 86 Medications Medications Current Medications Clonidine (Catapres) 0.1 mg Q4H PRN PO ELEVATED BLOOD PRESSURE Last administered on 08/12/17 06:11; Admin Dose 0.1 MG; Start 08/08/17 at 21:00 Metoprolol Tartrate (Lopressor) 50 mg BID PO Last administered on 08/16/17 08 :31; Admin Dose 50 MG; Start 08/08/17 at 21:26 Mycophenolate Sodium (Myfortic) 540 mg BID PO Last administered on 08/16/17 08:30; Admin Dose 540 MG; Start 08/08/17 at 22:00 Prednisone (Prednisone) 5 mg DAILY PO Last administered on 08/16/17 08:30; Admin Dose 5 MG; Start 08/09/17 at 09:00 Diagnostic Test (Pha) (Accu-Chek) 1 ea 02 XX Last administered on 08/16/17 01 :39; Admin Dose 1 EA; Start 08/09/17 at 02:00 Miscellaneous Information 1 ea NOTE XX ; Start 08/08/17 at 21:30 Glucose (Glutose) 15 gm Q15M PRN PO DECREASED GLUCOSE; Start 08/08/17 at 21:30 Glucose (Glutose) 22.5 gm Q15M PRN PO DECREASED GLUCOSE; Start 08/08/17 at 21: 30 Dextrose (D50w Syringe) 25 ml Q15M PRN IV DECREASED GLUCOSE; Start 08/08/17 at 21:30 Dextrose (D50w Syringe) 50 ml Q15M PRN IV DECREASED GLUCOSE; Start 08/08/17 at 21:30 Glucagon (Glucagen) 1 mg Q15M PRN IM DECREASED GLUCOSE; Start 08/08/17 at 21:30 Glucose (Glutose) 15 gm Q15M PRN BUCCAL DECREASED GLUCOSE; Start 08/08/17 at 21 :30 Acetaminophen/ Hydrocodone Bitart ([place] (7.5-325)) 1 tab Q4H PRN PO PAIN LEVEL 4-7 Last administered on 08/16/17 08:02; Admin Dose 1 TAB; Start at 09:30 Amlodipine Besylate 5 mg 5 mg DAILY PO Last administered on 08/16/17 08:31; Admin Dose 5 MG; Start 08/09/17 at 09:30 Piperacillin Sod/ Tazobactam Sod (Zosyn 2.25gm/ 50ml (Pmx)) 50 ml @ 100 mls/hr Q8 IVPB Last administered on 08/16/17 05:32; Admin Dose 100 MLS/HR; Start at 14:30 Enoxaparin Sodium (Lovenox) 30 mg DAILY SC ; Start 08/13/17 at 09:00 Morphine Sulfate (morphine) 2 mg Q4H PRN IV PAIN LEVEL 6-10 Last administered on 08/14/17 20:55; Admin Dose 2 MG; Start 08/13/17 at 11:30 Ondansetron HCl (Zofran Inj) 4 mg Q4H PRN IV NAUSEA AND/OR VOMITING Last administered on 08/13/17 16:07; Admin Dose 4 MG; Start 08/13/17 at 11:30 Hydralazine HCl (Apresoline) 10 mg Q6H PRN IV ELEVATED BLOOD PRESSURE Last administered on 08/16/17 01:33; Admin Dose 10 MG; Start 08/13/17 at 14:00 Pantoprazole (Protonix Iv) 40 mg DAILY@06 IV Last administered on 08/16/17 05 :31; Admin Dose 40 MG; Start 08/14/17 at 21:00 Metoclopramide HCl (Reglan) 10 mg Q8 IV Last administered on 08/16/17 05:31; Admin Dose 10 MG; Start 08/13/17 at 22:00 Insulin Glargine 8 unit 8 unit BID SC Last administered on 08/16/17 07:56; Admin Dose 8 UNIT; Start 08/14/17 at 21:00 Sodium Chloride 1,000 ml @ 60 mls/hr [id number] IV Last administered on 03:20; Admin Dose 60 MLS/HR; Start 08/14/17 at 18:00 Daptomycin/Sodium Chloride (Cubicin/NS) 100 ml @ 200 mls/hr Q48H IVPB ; Start 08/17/17 at 00:00 ROJAS BYRD Aug 16, 2017 10:50
--- NOTE | 2017-08-16 11:50 | CONS ---
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 (XR showed periosteal reaction at the tip of R 3rd distal phalanx, suspicious for OM, MRI showed cellulitis of distal R 4th phalanx, without OM) and L 2nd fingertip (XR showed cortical irregularity at the tuft of L 2nd distal phalanx with overlying soft tissue defect, suggesting early OM, MRI showed OM at L 2nd distal phalanx with, cellulitis about L 2nd distal phalanx without drainable fluid collection.) - h/o OM of R 2nd finger s/p amputation at proximal phalanx neck, and h/o OM of L 3rd finger s/p amputation at middle and distal phalanges - DM - Juan's esophagus and gastritis s/p EGD on 08/12/2017. No H. pylori on Bx - h/o ESRD, was on HD - s/p renal transplant in 2009 (on tacrolimus 3mg bid, mycophenolate 540 mg bid , prednisone 5 mg daily), mild renal insufficiency at baseline - rheumatoid arthritis - chronic HCV infection - HTN - dyslipidemia - h/o polysubstance and IV drug use. - h/o pernicious anemia. - h/o hyperparathyroidism. recommendations - continue pip/tazo and daptomycin (08/09/2017-). I recommend 6 weeks of IV antibiotics for his recurrent OM. Need to monitor CK while Pt's on daptomycin. CK was 25 on 08/12/2017. Will adjust the dose according to GFR - hand hygiene and prevention of injuries and infection at work discussed with Pt several times during this admission. He understood. 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 Problems: Consultation Date/Type/Reason Admit Date/Time Aug 08, 2017 at 16:53 Initial Consult Date 08/09/17 Type of Consultation: ID Referring Provider: LUPE KAPLAN MD 24 HR Interval Summary Constitutional: no complaints Detailed Summary Eyes: no complaints ENT: no complaints Respiratory: no complaints Cardiovascular: no complaints Gastrointestinal: no complaints Genitourinary: no complaints Musculoskeletal: No bone/joint pain, No swelling Skin: no complaints Exam/Review of Systems Vital Signs Vitals Vital Signs Date Time Temp Pulse Resp B/P Pulse Ox O2 Delivery O2 Flow Rate FiO2 08/16/17 07:39 97.6 77 18 149/70 99 08/16/17 02:11 Room Air Intake and Output 08/15/17 08/15/17 08/16/17 15:00 23:00 07:00 Intake Total 900 ml 1590 ml Output Total 700 ml 850 ml Balance 200 ml 740 ml Exam Constitutional: alert, oriented, well developed Psych: nl mood/affect, no complaints Head: atraumatic, normocephalic Eyes: nl conjunctiva, nl lids, nl sclera ENMT: nl external ears & nose, nl nasal mucosa & septum Neck: supple Musculoskeletal: nl extremities to inspection, other (AVF of LUE) Extremities: No edema 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, nl mental status Skin: other (L 2nd fingertip is pale but non-TTP), rash or lesions (old lacerations on fingertips, no purulence) Results Result Diagram: 08/16/17 0515 08/16/17 0515 Results 24 hrs Laboratory Tests Test 08/15/17 12:05 08/15/17 17:50 08/15/17 21:22 08/16/17 01:37 Bedside Glucose 188 216 153 71 Test 08/16/17 05:15 08/16/17 07:48 White Blood Count 4.8 Red Blood Count 4.67 L Hemoglobin 15.7 Hematocrit 47.0 Mean Corpuscular Volume 100.6 Mean Corpuscular Hemoglobin 33.6 H Mean Corpuscular Hemoglobin Concent 33.4 Red Cell Distribution Width 11.8 Platelet Count 161 Mean Platelet Volume 11.2 H Neutrophils % 62.1 Lymphocytes % 25.3 Monocytes % 10.4 Eosinophils % 1.2 Basophils % 0.6 Nucleated Red Blood Cells % 0.0 Neutrophils # 3.0 Lymphocytes # 1.2 Monocytes # 0.5 Eosinophils # 0.1 Basophils # 0.0 Nucleated Red Blood Cells # 0.0 Sodium Level 140 Potassium Level 4.4 Chloride Level 107 Carbon Dioxide Level 24 Anion Gap 13 Blood Urea Nitrogen 25 H Creatinine 1.74 H Glucose Level 82 # Calcium Level 10.2 Bedside Glucose 86 Medications Medications Current Medications Clonidine (Catapres) 0.1 mg Q4H PRN PO ELEVATED BLOOD PRESSURE Last administered on 08/12/17t 06:11; Admin Dose 0.1 MG; Start 08/08/17 at 21:00 Metoprolol Tartrate (Lopressor) 50 mg BID PO Last administered on 08/16/17 08 :31; Admin Dose 50 MG; Start 08/08/17 at 21:26 Mycophenolate Sodium (Myfortic) 540 mg BID PO Last administered on 08/16/17 08:30; Admin Dose 540 MG; Start 08/08/17 at 22:00 Prednisone (Prednisone) 5 mg DAILY PO Last administered on 08/16/17 08:30; Admin Dose 5 MG; Start 08/09/17 at 09:00 Diagnostic Test (Pha) (Accu-Chek) 1 ea 02 XX Last administered on 08/16/17 01 :39; Admin Dose 1 EA; Start 08/09/17 at 02:00 Miscellaneous Information 1 ea NOTE XX ; Start 08/08/17 at 21:30 Glucose (Glutose) 15 gm Q15M PRN PO DECREASED GLUCOSE; Start 08/08/17 at 21:30 Glucose (Glutose) 22.5 gm Q15M PRN PO DECREASED GLUCOSE; Start 08/08/17 at 21: 30 Dextrose (D50w Syringe) 25 ml Q15M PRN IV DECREASED GLUCOSE; Start 08/08/17 at 21:30 Dextrose (D50w Syringe) 50 ml Q15M PRN IV DECREASED GLUCOSE; Start 08/08/17 at 21:30 Glucagon (Glucagen) 1 mg Q15M PRN IM DECREASED GLUCOSE; Start 08/08/17 at 21:30 Glucose (Glutose) 15 gm Q15M PRN BUCCAL DECREASED GLUCOSE; Start 08/08/17 at 21 :30 Acetaminophen/ Hydrocodone Bitart ([place] (7.5-325)) 1 tab Q4H PRN PO PAIN LEVEL 4-7 Last administered on 08/16/17 08:02; Admin Dose 1 TAB; Start at 09:30 Amlodipine Besylate 5 mg 5 mg DAILY PO Last administered on 08/16/17 08:31; Admin Dose 5 MG; Start 08/09/17 at 09:30 Piperacillin Sod/ Tazobactam Sod (Zosyn 2.25gm/ 50ml (Pmx)) 50 ml @ 100 mls/hr Q8 IVPB Last administered on 08/16/17 05:32; Admin Dose 100 MLS/HR; Start at 14:30 Enoxaparin Sodium (Lovenox) 30 mg DAILY SC ; Start 08/13/17 at 09:00 Morphine Sulfate (morphine) 2 mg Q4H PRN IV PAIN LEVEL 6-10 Last administered on 08/14/17 20:55; Admin Dose 2 MG; Start 08/13/17 at 11:30 Ondansetron HCl (Zofran Inj) 4 mg Q4H PRN IV NAUSEA AND/OR VOMITING Last administered on 08/13/17 16:07; Admin Dose 4 MG; Start 08/13/17 at 11:30 Hydralazine HCl (Apresoline) 10 mg Q6H PRN IV ELEVATED BLOOD PRESSURE Last administered on 08/16/17 01:33; Admin Dose 10 MG; Start 08/13/17 at 14:00 Pantoprazole (Protonix Iv) 40 mg DAILY@06 IV Last administered on 08/16/17 05 :31; Admin Dose 40 MG; Start 08/14/17 at 21:00 Metoclopramide HCl (Reglan) 10 mg Q8 IV Last administered on 08/16/17 05:31; Admin Dose 10 MG; Start 08/13/17 at 22:00 Insulin Glargine 8 unit 8 unit BID SC Last administered on 08/16/17 07:56; Admin Dose 8 UNIT; Start 08/14/17 at 21:00 Sodium Chloride 1,000 ml @ 60 mls/hr [id number] IV Last administered on 03:20; Admin Dose 60 MLS/HR; Start 08/14/17 at 18:00 Daptomycin/Sodium Chloride (Cubicin/NS) 100 ml @ 200 mls/hr Q48H IVPB ; Start 08/17/17 at 00:00 MAGO VAIL M.D. Aug 16, 2017 11:50
--- NOTE | 2017-08-16 13:58 | CONS ---
Date/Time of Note Date/Time of Note DATE: 08/16/17 TIME: 13:56 Assessment/Plan Assessment/Plan Additional Assessment/Plan 1. Acute Kidney inury on CKD due to Prerenal azotemia and Infection 2. 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 h/o ESRD, was on HD - s/p renal transplant in 2009 (on tacrolimus 3mg bid, mycophenolate 540 mg bid, prednisone 5 mg daily), mild renal insufficiency at baseline 6. rheumatoid arthritis 7. chronic HCV infection 8. HTN 9. dyslipidemia 10. h/o polysubstance and IV drug use. 11. h/o pernicious anemia. 12. h/o erosive esophagitis and gastritis 13. Hyperkalemia- resolved after prograf stopped Plan: -pt has previously had a full CKD work up - no need to repeat it -Cr slightly improved to 1.74- K normal today, Prograf was stopped yesterday , we will continue to hold off prograf now -Continue IV NS at 60 cc/hr -IV abx as per ID -Continue current Immunosuppression for kidney transplant,( Tacrolimus stopped day on - continue mycophenolate 540 mg bid, prednisone 5 mg daily) -pt has no signs and symptoms of tacrolimus toxicity, so we will monitor it. - Dw Dr Silas Chand Consultation Date/Type/Reason Admit Date/Time Aug 08, 2017 at 16:53 Initial Consult Date 08/09/17 Type of Consultation: ID Referring Provider: LUPE KAPLAN MD 24 HR Interval Summary Constitutional: improved, requiring IVF Detailed Summary Respiratory: no complaints Cardiovascular: no complaints Gastrointestinal: no complaints Genitourinary: no complaints Musculoskeletal: bone/joint pain Exam/Review of Systems Vital Signs Vitals Vital Signs Date Time Temp Pulse Resp B/P Pulse Ox O2 Delivery O2 Flow Rate FiO2 08/16/17 07:39 97.6 77 18 149/70 99 08/16/17 02:11 Room Air Intake and Output 08/15/17 08/15/17 08/16/17 15:00 23:00 07:00 Intake Total 900 ml 1590 ml Output Total 700 ml 850 ml Balance 200 ml 740 ml Exam Constitutional: alert, well developed Respiratory: clear to auscultation, normal air movement Cardiovascular: nl pulses, regular rate and rhythm Gastrointestinal: non-tender, soft Musculoskeletal: other (OM of left finger ) Extremities: normal pulses 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: nl mental status, nl speech, nl strength Results Result Diagram: 08/16/17 0515 08/16/17 0515 Results 24 hrs Laboratory Tests Test 08/15/17 17:50 08/15/17 21:22 08/16/17 01:37 08/16/17 05:15 Bedside Glucose 216 153 71 White Blood Count 4.8 Red Blood Count 4.67 L Hemoglobin 15.7 Hematocrit 47.0 Mean Corpuscular Volume 100.6 Mean Corpuscular Hemoglobin 33.6 H Mean Corpuscular Hemoglobin Concent 33.4 Red Cell Distribution Width 11.8 Platelet Count 161 Mean Platelet Volume 11.2 H Neutrophils % 62.1 Lymphocytes % 25.3 Monocytes % 10.4 Eosinophils % 1.2 Basophils % 0.6 Nucleated Red Blood Cells % 0.0 Neutrophils # 3.0 Lymphocytes # 1.2 Monocytes # 0.5 Eosinophils # 0.1 Basophils # 0.0 Nucleated Red Blood Cells # 0.0 Sodium Level 140 Potassium Level 4.4 Chloride Level 107 Carbon Dioxide Level 24 Anion Gap 13 Blood Urea Nitrogen 25 H Creatinine 1.74 H Glucose Level 82 # Calcium Level 10.2 Test 08/16/17 07:48 08/16/17 12:01 Bedside Glucose 86 100 Medications Medications Current Medications Clonidine (Catapres) 0.1 mg Q4H PRN PO ELEVATED BLOOD PRESSURE Last administered on 08/12/17 06:11; Admin Dose 0.1 MG; Start 08/08/17 at 21:00 Metoprolol Tartrate (Lopressor) 50 mg BID PO Last administered on 08/16/17 08 :31; Admin Dose 50 MG; Start 08/08/17 at 21:26 Mycophenolate Sodium (Myfortic) 540 mg BID PO Last administered on 08/16/17 08:30; Admin Dose 540 MG; Start 08/08/17 at 22:00 Prednisone (Prednisone) 5 mg DAILY PO Last administered on 08/16/17 08:30; Admin Dose 5 MG; Start 08/09/17 at 09:00 Diagnostic Test (Pha) (Accu-Chek) 1 ea 02 XX Last administered on 08/16/17 01 :39; Admin Dose 1 EA; Start 08/09/17 at 02:00 Miscellaneous Information 1 ea NOTE XX ; Start 08/08/17 at 21:30 Glucose (Glutose) 15 gm Q15M PRN PO DECREASED GLUCOSE; Start 08/08/17 at 21:30 Glucose (Glutose) 22.5 gm Q15M PRN PO DECREASED GLUCOSE; Start 08/08/17 at 21: 30 Dextrose (D50w Syringe) 25 ml Q15M PRN IV DECREASED GLUCOSE; Start 08/08/17 at 21:30 Dextrose (D50w Syringe) 50 ml Q15M PRN IV DECREASED GLUCOSE; Start 08/08/17 at 21:30 Glucagon (Glucagen) 1 mg Q15M PRN IM DECREASED GLUCOSE; Start 08/08/17 at 21:30 Glucose (Glutose) 15 gm Q15M PRN BUCCAL DECREASED GLUCOSE; Start 08/08/17 at 21 :30 Acetaminophen/ Hydrocodone Bitart ([place] (7.5-325)) 1 tab Q4H PRN PO PAIN LEVEL 4-7 Last administered on 08/16/17 12:17; Admin Dose 1 TAB; Start at 09:30 Amlodipine Besylate 5 mg 5 mg DAILY PO Last administered on 08/16/17 08:31; Admin Dose 5 MG; Start 08/09/17 at 09:30 Piperacillin Sod/ Tazobactam Sod (Zosyn 2.25gm/ 50ml (Pmx)) 50 ml @ 100 mls/hr Q8 IVPB Last administered on 08/16/17 05:32; Admin Dose 100 MLS/HR; Start at 14:30 Enoxaparin Sodium (Lovenox) 30 mg DAILY SC ; Start 08/13/17 at 09:00 Morphine Sulfate (morphine) 2 mg Q4H PRN IV PAIN LEVEL 6-10 Last administered on 08/14/17 20:55; Admin Dose 2 MG; Start 08/13/17 at 11:30 Ondansetron HCl (Zofran Inj) 4 mg Q4H PRN IV NAUSEA AND/OR VOMITING Last administered on 08/13/17 16:07; Admin Dose 4 MG; Start 08/13/17 at 11:30 Hydralazine HCl (Apresoline) 10 mg Q6H PRN IV ELEVATED BLOOD PRESSURE Last administered on 08/16/17 01:33; Admin Dose 10 MG; Start 08/13/17 at 14:00 Pantoprazole (Protonix Iv) 40 mg DAILY@06 IV Last administered on 08/16/17 05 :31; Admin Dose 40 MG; Start 08/14/17 at 21:00 Metoclopramide HCl (Reglan) 10 mg Q8 IV Last administered on 08/16/17 05:31; Admin Dose 10 MG; Start 08/13/17 at 22:00 Insulin Glargine 8 unit 8 unit BID SC Last administered on 08/16/17 07:56; Admin Dose 8 UNIT; Start 08/14/17 at 21:00 Sodium Chloride 1,000 ml @ 60 mls/hr [id number] IV Last administered on 03:20; Admin Dose 60 MLS/HR; Start 08/14/17 at 18:00 Daptomycin/Sodium Chloride (Cubicin/NS) 100 ml @ 200 mls/hr Q48H IVPB ; Start 08/17/17 at 00:00 EILEEN COBURN Aug 16, 2017 13:58
[2017-08-16 14:48] VITALS: BP 119/64; RESP 16
--- NOTE | 2017-08-16 16:18 | CONS ---
Date/Time of Note Date/Time of Note DATE: 08/16/17 TIME: 16:17 Assessment/Plan Assessment/Plan Additional Assessment/Plan IMPRESSION: 1. Osteomyelitis of the finger. 2. Diabetes mellitus. 3. Status post renal transplant, on immunosuppressive medication. 4. Hepatitis C virus infection in the past. 5. Epigastric pain for months. 6. Significant weight loss. The patient definitely looks cachectic. 7. History of melena which stopped 5 days ago. 8. Cachexia, patient is eating better and feeling good now 9. Juan esophagus 10. Distended gallbladder but normal biliary system Plan Continue PPI Reglan for nausea vomiting Megace to improved appetite Consultation Date/Type/Reason Admit Date/Time Aug 08, 2017 at 16:53 Initial Consult Date 08/09/17 Type of Consultation: ID Referring Provider: LUPE KAPLAN MD Exam/Review of Systems Vital Signs Vitals Vital Signs Date Time Temp Pulse Resp B/P Pulse Ox O2 Delivery O2 Flow Rate FiO2 08/16/17 14:48 98.4 61 16 119/64 98 08/16/17 02:11 Room Air Intake and Output 08/15/17 08/15/17 08/16/17 15:00 23:00 07:00 Intake Total 900 ml 1590 ml Output Total 700 ml 850 ml Balance 200 ml 740 ml Exam Constitutional: alert, oriented, well developed Psych: nl mood/affect, no complaints Head: atraumatic, normocephalic Eyes: EOMI, PERRL, nl conjunctiva, nl lids, nl sclera ENMT: nl external ears & nose, nl lips & teeth, nl nasal mucosa & septum Neck: non-tender, supple Respiratory: clear to auscultation, normal air movement Cardiovascular: nl pulses, regular rate and rhythm Gastrointestinal: nl liver, spleen, non-tender, soft Musculoskeletal: nl extremities to inspection, nl gait and stance Extremities: normal pulses 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, nl mental status, nl speech, nl strength Skin: nl turgor, No rash or lesions Lymph: nl lymph nodes Results Result Diagram: 08/16/17 0515 08/16/17 0515 Results 24 hrs Laboratory Tests Test 08/15/17 17:50 08/15/17 21:22 08/16/17 01:37 08/16/17 05:15 Bedside Glucose 216 153 71 White Blood Count 4.8 Red Blood Count 4.67 L Hemoglobin 15.7 Hematocrit 47.0 Mean Corpuscular Volume 100.6 Mean Corpuscular Hemoglobin 33.6 H Mean Corpuscular Hemoglobin Concent 33.4 Red Cell Distribution Width 11.8 Platelet Count 161 Mean Platelet Volume 11.2 H Neutrophils % 62.1 Lymphocytes % 25.3 Monocytes % 10.4 Eosinophils % 1.2 Basophils % 0.6 Nucleated Red Blood Cells % 0.0 Neutrophils # 3.0 Lymphocytes # 1.2 Monocytes # 0.5 Eosinophils # 0.1 Basophils # 0.0 Nucleated Red Blood Cells # 0.0 Sodium Level 140 Potassium Level 4.4 Chloride Level 107 Carbon Dioxide Level 24 Anion Gap 13 Blood Urea Nitrogen 25 H Creatinine 1.74 H Glucose Level 82 # Calcium Level 10.2 Test 08/16/17 07:48 08/16/17 12:01 Bedside Glucose 86 100 Medications Medications Current Medications Clonidine (Catapres) 0.1 mg Q4H PRN PO ELEVATED BLOOD PRESSURE Last administered on 08/12/17 06:11; Admin Dose 0.1 MG; Start 08/08/17 at 21:00 Metoprolol Tartrate (Lopressor) 50 mg BID PO Last administered on 08/16/17 08 :31; Admin Dose 50 MG; Start 08/08/17 at 21:26 Mycophenolate Sodium (Myfortic) 540 mg BID PO Last administered on 08/16/17 08:30; Admin Dose 540 MG; Start 08/08/17 at 22:00 Prednisone (Prednisone) 5 mg DAILY PO Last administered on 08/16/17 08:30; Admin Dose 5 MG; Start 08/09/17 at 09:00 Diagnostic Test (Pha) (Accu-Chek) 1 ea 02 XX Last administered on 08/16/17 01 :39; Admin Dose 1 EA; Start 08/09/17 at 02:00 Miscellaneous Information 1 ea NOTE XX ; Start 08/08/17 at 21:30 Glucose (Glutose) 15 gm Q15M PRN PO DECREASED GLUCOSE; Start 08/08/17 at 21:30 Glucose (Glutose) 22.5 gm Q15M PRN PO DECREASED GLUCOSE; Start 08/08/17 at 21: 30 Dextrose (D50w Syringe) 25 ml Q15M PRN IV DECREASED GLUCOSE; Start 08/08/17 at 21:30 Dextrose (D50w Syringe) 50 ml Q15M PRN IV DECREASED GLUCOSE; Start 08/08/17 at 21:30 Glucagon (Glucagen) 1 mg Q15M PRN IM DECREASED GLUCOSE; Start 08/08/17 at 21:30 Glucose (Glutose) 15 gm Q15M PRN BUCCAL DECREASED GLUCOSE; Start 08/08/17 at 21 :30 Acetaminophen/ Hydrocodone Bitart ([place] (7.5-325)) 1 tab Q4H PRN PO PAIN LEVEL 4-7 Last administered on 08/16/17 12:17; Admin Dose 1 TAB; Start at 09:30 Amlodipine Besylate 5 mg 5 mg DAILY PO Last administered on 08/16/17 08:31; Admin Dose 5 MG; Start 08/09/17 at 09:30 Piperacillin Sod/ Tazobactam Sod (Zosyn 2.25gm/ 50ml (Pmx)) 50 ml @ 100 mls/hr Q8 IVPB Last administered on 08/16/17 14:05; Admin Dose 100 MLS/HR; Start at 14:30 Enoxaparin Sodium (Lovenox) 30 mg DAILY SC ; Start 08/13/17 at 09:00 Morphine Sulfate (morphine) 2 mg Q4H PRN IV PAIN LEVEL 6-10 Last administered on 08/14/17 20:55; Admin Dose 2 MG; Start 08/13/17 at 11:30 Ondansetron HCl (Zofran Inj) 4 mg Q4H PRN IV NAUSEA AND/OR VOMITING Last administered on 08/13/17 16:07; Admin Dose 4 MG; Start 08/13/17 at 11:30 Hydralazine HCl (Apresoline) 10 mg Q6H PRN IV ELEVATED BLOOD PRESSURE Last administered on 08/16/17 01:33; Admin Dose 10 MG; Start 08/13/17 at 14:00 Metoclopramide HCl (Reglan) 10 mg Q8 IV Last administered on 08/16/17 05:31; Admin Dose 10 MG; Start 08/13/17 at 22:00 Insulin Glargine 8 unit 8 unit BID SC Last administered on 08/16/17 07:56; Admin Dose 8 UNIT; Start 08/14/17 at 21:00 Sodium Chloride 1,000 ml @ 60 mls/hr [id number] IV Last administered on 03:20; Admin Dose 60 MLS/HR; Start 08/14/17 at 18:00 Daptomycin/Sodium Chloride (Cubicin/NS) 100 ml @ 200 mls/hr Q48H IVPB ; Start 08/17/17 at 00:00 Pantoprazole (Protonix Tab) 40 mg DAILY@06 PO ; Start 08/17/17 at 06:00 UCHE ZEPEDA MD Aug 16, 2017 16:18
[2017-08-16 20:00] VITALS: BP 116/68; PULSE 64; RESP 18
[2017-08-17] MEDS: DAPTOMYCIN 250 MG in SOD CHLORIDE 0.9% 100 ML IVPB SCH (00:26)
[2017-08-17 02:00] VITALS: BP 112/72; PULSE 56; RESP 18
[2017-08-17] MEDS: ACCU-CHEK XX SCH (02:00)
[2017-08-17] MEDS: PANTOPRAZOLE (EC) 40 MG TAB PO SCH (05:34)
[2017-08-17] MEDS: METOCLOPRAMIDE 10 MG INJ IV SCH ×3 (05:34→21:23)
[2017-08-17] MEDS: PIPER-TAZO 2.25 GM (PMX) 50 ML IVPB SCH ×3 (05:34→21:22)
[2017-08-17 07:24] VITALS: BP 99/59; RESP 16
[2017-08-17] MEDS: INSULIN ASPART [NOVOLOG] 3 ML PEN SC SCH ×4 (08:01→21:25)
[2017-08-17] MEDS: INSULIN GLARGINE [LANtus] 3 ML PEN SC SCH ×2 (08:09→21:21)
[2017-08-17] MEDS: HYDROCODONE/APAP (7.5/325) TAB PO PRN ×3 (08:10→21:21)
[2017-08-17] MEDS: predniSONE 5 MG TAB PO SCH (08:52)
[2017-08-17] MEDS: MYCOPHENOLATE (SR) 180 MG TAB PO SCH ×2 (08:52→21:21)
[2017-08-17] MEDS: AMLODIPINE 5 MG TAB PO SCH (09:00)
[2017-08-17] MEDS: METOPROLOL 50 MG TAB PO SCH ×2 (09:00→21:20)
[2017-08-17] MEDS: ENOXAPARIN 30 MG/0.3 ML SYG SC SCH (09:00)
--- NOTE | 2017-08-17 11:53 | PN ---
Date/Time of Note Date/Time of Note DATE: 08/17/17 TIME: 11:53 Assessment/Plan VTE Prophylaxis VTE Prophylaxis Intervention: other Lines/Catheters IV C[facility]ter Type [facility]from [facility] Peripheral IV Urinary Cath still in place: No Assessment/Plan Chief Complaint/Hosp Course - Right 3rd finger distal osteomyelitis. Left index finger distal phalanx also suggests early osteomyelitis. Continue antibiotics per ID. Dr. Awan is following infection disease consultation. - Juan's esophagus and severe gastritis per EGD on 08/13. Continue Protonix. - Weight loss, abdominal pain and melenic stools. Dr Hartley is following in in gastroenterology consultation. - End-stage renal disease, status post kidney transplant in 2009. Continued on antirejection therapy with baseline creatinine is about 1.5. - Hypertension. Continue Norvasc and metoprolol. - Diabetes mellitus. Continue NovoLog per mild algorithm sliding scale. - Hepatitis C. Problems: Subjective 24 Hr Interval Summary Free Text/Dictation Patient has no complaints Exam/Review of Systems Vital Signs Vitals Vital Signs Date Time Temp Pulse Resp B/P Pulse Ox O2 Delivery O2 Flow Rate FiO2 08/17/17 07:24 98.0 55 16 99/59 97 08/17/17 02:00 Room Air Intake and Output 08/16/17 08/16/17 08/17/17 15:00 23:00 07:00 Intake Total 50 ml 1480 ml 1340 ml Output Total 1000 ml 800 ml Balance 50 ml 480 ml 540 ml Exam Constitutional: well developed Head: atraumatic, normocephalic Neck: supple Respiratory: clear to auscultation Cardiovascular: regular rate and rhythm Gastrointestinal: non-tender, soft Extremities: normal pulses Results Result Diagram: 08/16/17 0515 08/16/17 0515 Results 24 hrs Laboratory Tests Test 08/16/17 12:01 08/16/17 17:19 08/16/17 21:19 08/17/17 02:06 Bedside Glucose 100 137 194 122 Test 08/17/17 07:59 Bedside Glucose 100 Medications Medications Current Medications Clonidine (Catapres) 0.1 mg Q4H PRN PO ELEVATED BLOOD PRESSURE Last administered on 08/12/17t 06:11; Admin Dose 0.1 MG; Start 08/08/17 at 21:00 Metoprolol Tartrate (Lopressor) 50 mg BID PO Last administered on 08/16/17 21 :26; Admin Dose 50 MG; Start 08/08/17 at 21:26 Mycophenolate Sodium (Myfortic) 540 mg BID PO Last administered on 08/17/17 08:52; Admin Dose 540 MG; Start 08/08/17 at 22:00 Prednisone (Prednisone) 5 mg DAILY PO Last administered on 08/17/17 08:52; Admin Dose 5 MG; Start 08/09/17 at 09:00 Diagnostic Test (Pha) (Accu-Chek) 1 ea 02 XX Last administered on 08/16/17 01 :39; Admin Dose 1 EA; Start 08/09/17 at 02:00 Miscellaneous Information 1 ea NOTE XX ; Start 08/08/17 at 21:30 Glucose (Glutose) 15 gm Q15M PRN PO DECREASED GLUCOSE; Start 08/08/17 at 21:30 Glucose (Glutose) 22.5 gm Q15M PRN PO DECREASED GLUCOSE; Start 08/08/17 at 21: 30 Dextrose (D50w Syringe) 25 ml Q15M PRN IV DECREASED GLUCOSE; Start 08/08/17 at 21:30 Dextrose (D50w Syringe) 50 ml Q15M PRN IV DECREASED GLUCOSE; Start 08/08/17 at 21:30 Glucagon (Glucagen) 1 mg Q15M PRN IM DECREASED GLUCOSE; Start 08/08/17 at 21:30 Glucose (Glutose) 15 gm Q15M PRN BUCCAL DECREASED GLUCOSE; Start 08/08/17 at 21 :30 Acetaminophen/ Hydrocodone Bitart ([place] (7.5-325)) 1 tab Q4H PRN PO PAIN LEVEL 4-7 Last administered on 08/17/17 08:10; Admin Dose 1 TAB; Start at 09:30 Amlodipine Besylate 5 mg 5 mg DAILY PO Last administered on 08/16/17 08:31; Admin Dose 5 MG; Start 08/09/17 at 09:30 Piperacillin Sod/ Tazobactam Sod (Zosyn 2.25gm/ 50ml (Pmx)) 50 ml @ 100 mls/hr Q8 IVPB Last administered on 08/17/17 05:34; Admin Dose 100 MLS/HR; Start at 14:30 Enoxaparin Sodium (Lovenox) 30 mg DAILY SC ; Start 08/13/17 at 09:00 Morphine Sulfate (morphine) 2 mg Q4H PRN IV PAIN LEVEL 6-10 Last administered on 08/14/17 20:55; Admin Dose 2 MG; Start 08/13/17 at 11:30 Ondansetron HCl (Zofran Inj) 4 mg Q4H PRN IV NAUSEA AND/OR VOMITING Last administered on 08/13/17 16:07; Admin Dose 4 MG; Start 08/13/17 at 11:30 Hydralazine HCl (Apresoline) 10 mg Q6H PRN IV ELEVATED BLOOD PRESSURE Last administered on 08/16/17 01:33; Admin Dose 10 MG; Start 08/13/17 at 14:00 Metoclopramide HCl (Reglan) 10 mg Q8 IV Last administered on 08/17/17 05:34; Admin Dose 10 MG; Start 08/13/17 at 22:00 Insulin Glargine 8 unit 8 unit BID SC Last administered on 08/17/17 08:09; Admin Dose 8 UNIT; Start 08/14/17 at 21:00 Sodium Chloride 1,000 ml @ 60 mls/hr [id number] IV Last administered on 21:39; Admin Dose 60 MLS/HR; Start 08/14/17 at 18:00 Daptomycin/Sodium Chloride (Cubicin/NS) 100 ml @ 200 mls/hr Q48H IVPB Last administered on 08/17/17 00:26; Admin Dose 200 MLS/HR; Start 08/17/17 at 00: 00 Pantoprazole (Protonix Tab) 40 mg DAILY@06 PO Last administered on 08/17/17 05:34; Admin Dose 40 MG; Start 08/17/17 at 06:00 ROJAS BYRD Aug 17, 2017 11:53
--- NOTE | 2017-08-17 12:26 | CONS ---
Date/Time of Note Date/Time of Note DATE: 08/17/17 TIME: 12:24 Assessment/Plan Assessment/Plan Additional Assessment/Plan 1. Acute Kidney inury on CKD due to Prerenal azotemia and Infection 2. 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 h/o ESRD, was on HD - s/p renal transplant in 2009 (on tacrolimus 3mg bid, mycophenolate 540 mg bid, prednisone 5 mg daily), mild renal insufficiency at baseline 6. rheumatoid arthritis 7. chronic HCV infection 8. HTN 9. dyslipidemia 10. h/o polysubstance and IV drug use. 11. h/o pernicious anemia. 12. h/o erosive esophagitis and gastritis 13. Hyperkalemia- resolved after prograf stopped Plan: -pt has previously had a full CKD work up - no need to repeat it -Cr slightly improved to 1.74- K normal today, - no labs today, Prograf was stopped yesterday , we will continue to hold off prograf now -Continue IV NS at 60 cc/hr -IV abx as per ID -Continue current Immunosuppression for kidney transplant,( Tacrolimus stopped day on - continue mycophenolate 540 mg bid, prednisone 5 mg daily) -pt has no signs and symptoms of tacrolimus toxicity, so we will monitor it. - Dw Dr Silas Chand Consultation Date/Type/Reason Admit Date/Time Aug 08, 2017 at 16:53 Initial Consult Date 08/09/17 Type of Consultation: ID Referring Provider: LUPE KAPLAN MD 24 HR Interval Summary Constitutional: improved, requiring IVF Detailed Summary Respiratory: no complaints Cardiovascular: no complaints Gastrointestinal: no complaints Genitourinary: no complaints Musculoskeletal: bone/joint pain Skin: no complaints Neurologic: no complaints Exam/Review of Systems Vital Signs Vitals Vital Signs Date Time Temp Pulse Resp B/P Pulse Ox O2 Delivery O2 Flow Rate FiO2 08/17/17 07:24 98.0 55 16 99/59 97 08/17/17 02:00 Room Air Intake and Output 08/16/17 08/16/17 08/17/17 15:00 23:00 07:00 Intake Total 50 ml 1480 ml 1340 ml Output Total 1000 ml 800 ml Balance 50 ml 480 ml 540 ml Exam Constitutional: alert, oriented Respiratory: clear to auscultation, normal air movement Cardiovascular: nl pulses, other (S1S2), regular rate and rhythm Gastrointestinal: non-tender, soft Musculoskeletal: other (Left finger osteomylitis- improving- noerythema, edema , drainage noted.) Extremities: normal pulses 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: nl mental status, nl speech Results Result Diagram: 08/16/1715 08/16/1715 Results 24 hrs Laboratory Tests Test 08/16/17 17:19 08/16/17 21:19 08/17/17 02:06 08/17/17 07:59 Bedside Glucose 137 194 122 100 Test 08/17/17 12:09 Bedside Glucose 127 Medications Medications Current Medications Clonidine (Catapres) 0.1 mg Q4H PRN PO ELEVATED BLOOD PRESSURE Last administered on 08/12/17 06:11; Admin Dose 0.1 MG; Start 08/08/17 at 21:00 Metoprolol Tartrate (Lopressor) 50 mg BID PO Last administered on 08/16/17 21 :26; Admin Dose 50 MG; Start 08/08/17 at 21:26 Mycophenolate Sodium (Myfortic) 540 mg BID PO Last administered on 08/17/17 08:52; Admin Dose 540 MG; Start 08/08/17 at 22:00 Prednisone (Prednisone) 5 mg DAILY PO Last administered on 08/17/17 08:52; Admin Dose 5 MG; Start 08/09/17 at 09:00 Diagnostic Test (Pha) (Accu-Chek) 1 ea 02 XX Last administered on 08/16/17 01 :39; Admin Dose 1 EA; Start 08/09/17 at 02:00 Miscellaneous Information 1 ea NOTE XX ; Start 08/08/17 at 21:30 Glucose (Glutose) 15 gm Q15M PRN PO DECREASED GLUCOSE; Start 08/08/17 at 21:30 Glucose (Glutose) 22.5 gm Q15M PRN PO DECREASED GLUCOSE; Start 08/08/17 at 21: 30 Dextrose (D50w Syringe) 25 ml Q15M PRN IV DECREASED GLUCOSE; Start 08/08/17 at 21:30 Dextrose (D50w Syringe) 50 ml Q15M PRN IV DECREASED GLUCOSE; Start 08/08/17 at 21:30 Glucagon (Glucagen) 1 mg Q15M PRN IM DECREASED GLUCOSE; Start 08/08/17 at 21:30 Glucose (Glutose) 15 gm Q15M PRN BUCCAL DECREASED GLUCOSE; Start 08/08/17 at 21 :30 Acetaminophen/ Hydrocodone Bitart ([place] (7.5-325)) 1 tab Q4H PRN PO PAIN LEVEL 4-7 Last administered on 08/17/17 08:10; Admin Dose 1 TAB; Start at 09:30 Amlodipine Besylate 5 mg 5 mg DAILY PO Last administered on 08/16/17 08:31; Admin Dose 5 MG; Start 08/09/17 at 09:30 Piperacillin Sod/ Tazobactam Sod (Zosyn 2.25gm/ 50ml (Pmx)) 50 ml @ 100 mls/hr Q8 IVPB Last administered on 08/17/17 05:34; Admin Dose 100 MLS/HR; Start at 14:30 Enoxaparin Sodium (Lovenox) 30 mg DAILY SC ; Start 08/13/17 at 09:00 Morphine Sulfate (morphine) 2 mg Q4H PRN IV PAIN LEVEL 6-10 Last administered on 08/14/17 20:55; Admin Dose 2 MG; Start 08/13/17 at 11:30 Ondansetron HCl (Zofran Inj) 4 mg Q4H PRN IV NAUSEA AND/OR VOMITING Last administered on 08/13/17 16:07; Admin Dose 4 MG; Start 08/13/17 at 11:30 Hydralazine HCl (Apresoline) 10 mg Q6H PRN IV ELEVATED BLOOD PRESSURE Last administered on 08/16/17 01:33; Admin Dose 10 MG; Start 08/13/17 at 14:00 Metoclopramide HCl (Reglan) 10 mg Q8 IV Last administered on 08/17/17 05:34; Admin Dose 10 MG; Start 08/13/17 at 22:00 Insulin Glargine 8 unit 8 unit BID SC Last administered on 08/17/17 08:09; Admin Dose 8 UNIT; Start 08/14/17 at 21:00 Sodium Chloride 1,000 ml @ 60 mls/hr [id number] IV Last administered on 21:39; Admin Dose 60 MLS/HR; Start 08/14/17 at 18:00 Daptomycin/Sodium Chloride (Cubicin/NS) 100 ml @ 200 mls/hr Q48H IVPB Last administered on 08/17/17 00:26; Admin Dose 200 MLS/HR; Start 08/17/17 at 00: 00 Pantoprazole (Protonix Tab) 40 mg DAILY@06 PO Last administered on 08/17/17 05:34; Admin Dose 40 MG; Start 08/17/17 at 06:00 EILEEN COBURN Aug 17, 2017 12:26
[2017-08-17] MEDS: SOD CHLORIDE 0.45% 1,000 ML IV SCH ×2 (12:40→17:23)
--- NOTE | 2017-08-17 13:30 | CONS ---
Date/Time of Note Date/Time of Note DATE: 08/17/17 TIME: 13:27 Assessment/Plan Assessment/Plan Chief Complaint/Hosp Course assessment/impression - recurrent OM of R 3rd fingertip (XR showed periosteal reaction at the tip of R 3rd distal phalanx, suspicious for OM, MRI showed cellulitis of distal R 4th phalanx, without OM) and L 2nd fingertip (XR showed cortical irregularity at the tuft of L 2nd distal phalanx with overlying soft tissue defect, suggesting early OM, MRI showed OM at L 2nd distal phalanx with, cellulitis about L 2nd distal phalanx without drainable fluid collection.) - h/o OM of R 2nd finger s/p amputation at proximal phalanx neck, and h/o OM of L 3rd finger s/p amputation at middle and distal phalanges - DM - Juan's esophagus and gastritis s/p EGD on 08/12/2017. No H. pylori on Bx - h/o ESRD, was on HD - s/p renal transplant in 2009 (on tacrolimus 3mg bid, mycophenolate 540 mg bid , prednisone 5 mg daily), mild renal insufficiency at baseline - rheumatoid arthritis - chronic HCV infection - HTN - dyslipidemia - h/o polysubstance and IV drug use. - h/o pernicious anemia. - h/o hyperparathyroidism. recommendations - continue renally dosed pip/tazo and daptomycin (08/09/2017-). I recommend 6 weeks of IV antibiotics for his recurrent OM. Need to monitor CK while Pt's on daptomycin. CK was 25 on 08/12/2017. Will adjust the dose according to GFR - hand hygiene and prevention of injuries and infection at work discussed with Pt several times during this admission. He understood. 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 Problems: Consultation Date/Type/Reason Admit Date/Time Aug 08, 2017 at 16:53 Initial Consult Date 08/09/17 Type of Consultation: ID Referring Provider: LUPE KAPLAN MD 24 HR Interval Summary Constitutional: no complaints Detailed Summary Eyes: no complaints ENT: no complaints Respiratory: no complaints Cardiovascular: no complaints Gastrointestinal: no complaints Genitourinary: no complaints, other (urinating a lot) Musculoskeletal: no complaints, No bone/joint pain Skin: skin lesions (old lacerations on fingertips, none is painful and purulent ) Exam/Review of Systems Vital Signs Vitals Vital Signs Date Time Temp Pulse Resp B/P Pulse Ox O2 Delivery O2 Flow Rate FiO2 08/17/17 07:24 98.0 55 16 99/59 97 08/17/17 02:00 Room Air Intake and Output 08/16/17 08/16/17 08/17/17 15:00 23:00 07:00 Intake Total 50 ml 1480 ml 1340 ml Output Total 1000 ml 800 ml Balance 50 ml 480 ml 540 ml Exam Constitutional: alert, oriented, well developed Psych: nl mood/affect, no complaints Head: atraumatic, normocephalic Eyes: nl conjunctiva, nl lids, nl sclera ENMT: nl external ears & nose, nl nasal mucosa & septum Neck: supple Musculoskeletal: swelling (L 2nd fingertip, only tender to deep palpation) Extremities: normal pulses, No edema 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: 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-XII 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, nl mental status, nl speech Skin: rash or lesions (old dried lacerations on fingertips) Results Result Diagram: 08/16/1715 08/16/1715 Results 24 hrs Laboratory Tests Test 08/16/17 17:19 08/16/17 21:19 08/17/17 02:06 08/17/17 07:59 Bedside Glucose 137 194 122 100 Test 08/17/17 12:09 Bedside Glucose 127 Medications Medications Current Medications Clonidine (Catapres) 0.1 mg Q4H PRN PO ELEVATED BLOOD PRESSURE Last administered on 08/12/17 06:11; Admin Dose 0.1 MG; Start 08/08/17 at 21:00 Metoprolol Tartrate (Lopressor) 50 mg BID PO Last administered on 08/16/17 21 :26; Admin Dose 50 MG; Start 08/08/17 at 21:26 Mycophenolate Sodium (Myfortic) 540 mg BID PO Last administered on 08/17/17 08:52; Admin Dose 540 MG; Start 08/08/17 at 22:00 Prednisone (Prednisone) 5 mg DAILY PO Last administered on 08/17/17 08:52; Admin Dose 5 MG; Start 08/09/17 at 09:00 Diagnostic Test (Pha) (Accu-Chek) 1 ea 02 XX Last administered on 08/16/17 01 :39; Admin Dose 1 EA; Start 08/09/17 at 02:00 Miscellaneous Information 1 ea NOTE XX ; Start 08/08/17 at 21:30 Glucose (Glutose) 15 gm Q15M PRN PO DECREASED GLUCOSE; Start 08/08/17 at 21:30 Glucose (Glutose) 22.5 gm Q15M PRN PO DECREASED GLUCOSE; Start 08/08/17 at 21: 30 Dextrose (D50w Syringe) 25 ml Q15M PRN IV DECREASED GLUCOSE; Start 08/08/17 at 21:30 Dextrose (D50w Syringe) 50 ml Q15M PRN IV DECREASED GLUCOSE; Start 08/08/17 at 21:30 Glucagon (Glucagen) 1 mg Q15M PRN IM DECREASED GLUCOSE; Start 08/08/17 at 21:30 Glucose (Glutose) 15 gm Q15M PRN BUCCAL DECREASED GLUCOSE; Start 08/08/17 at 21 :30 Acetaminophen/ Hydrocodone Bitart ([place] (7.5-325)) 1 tab Q4H PRN PO PAIN LEVEL 4-7 Last administered on 08/17/17 08:10; Admin Dose 1 TAB; Start at 09:30 Amlodipine Besylate 5 mg 5 mg DAILY PO Last administered on 08/16/17 08:31; Admin Dose 5 MG; Start 08/09/17 at 09:30 Piperacillin Sod/ Tazobactam Sod (Zosyn 2.25gm/ 50ml (Pmx)) 50 ml @ 100 mls/hr Q8 IVPB Last administered on 08/17/17 05:34; Admin Dose 100 MLS/HR; Start at 14:30 Enoxaparin Sodium (Lovenox) 30 mg DAILY SC ; Start 08/13/17 at 09:00 Morphine Sulfate (morphine) 2 mg Q4H PRN IV PAIN LEVEL 6-10 Last administered on 08/14/17 20:55; Admin Dose 2 MG; Start 08/13/17 at 11:30 Ondansetron HCl (Zofran Inj) 4 mg Q4H PRN IV NAUSEA AND/OR VOMITING Last administered on 08/13/17 16:07; Admin Dose 4 MG; Start 08/13/17 at 11:30 Hydralazine HCl (Apresoline) 10 mg Q6H PRN IV ELEVATED BLOOD PRESSURE Last administered on 08/16/17 01:33; Admin Dose 10 MG; Start 08/13/17 at 14:00 Metoclopramide HCl (Reglan) 10 mg Q8 IV Last administered on 08/17/17 05:34; Admin Dose 10 MG; Start 08/13/17 at 22:00 Insulin Glargine 8 unit 8 unit BID SC Last administered on 08/17/17 08:09; Admin Dose 8 UNIT; Start 08/14/17 at 21:00 Sodium Chloride 1,000 ml @ 60 mls/hr [id number] IV Last administered on 21:39; Admin Dose 60 MLS/HR; Start 08/14/17 at 18:00 Daptomycin/Sodium Chloride (Cubicin/NS) 100 ml @ 200 mls/hr Q48H IVPB Last administered on 08/17/17 00:26; Admin Dose 200 MLS/HR; Start 08/17/17 at 00: 00 Pantoprazole (Protonix Tab) 40 mg DAILY@06 PO Last administered on 08/17/17 05:34; Admin Dose 40 MG; Start 08/17/17 at 06:00 MAOG VAIL M.D. Aug 17, 2017 13:30
[2017-08-17 14:43] VITALS: BP 124/63; RESP 16
[2017-08-17 20:15] VITALS: BP 133/80; RESP 20
[2017-08-18] MEDS: ACCU-CHEK XX SCH (02:00)
[2017-08-18 02:02] VITALS: BP 127/78; RESP 20
[2017-08-18] MEDS: PANTOPRAZOLE (EC) 40 MG TAB PO SCH (05:11)
[2017-08-18] MEDS: HYDROCODONE/APAP (7.5/325) TAB PO PRN ×4 (05:11→22:59)
[2017-08-18] MEDS: PIPER-TAZO 2.25 GM (PMX) 50 ML IVPB SCH ×3 (05:11→21:20)
[2017-08-18] MEDS: METOCLOPRAMIDE 10 MG INJ IV SCH ×3 (05:12→21:55)
[2017-08-18 07:53] VITALS: BP 146/81; RESP 18
[2017-08-18] MEDS: INSULIN ASPART [NOVOLOG] 3 ML PEN SC SCH ×4 (08:14→20:53)
[2017-08-18] MEDS: METOPROLOL 50 MG TAB PO SCH ×2 (08:17→20:14)
[2017-08-18] MEDS: MYCOPHENOLATE (SR) 180 MG TAB PO SCH ×2 (08:17→20:15)
[2017-08-18] MEDS: predniSONE 5 MG TAB PO SCH (08:17)
[2017-08-18] MEDS: AMLODIPINE 5 MG TAB PO SCH (08:18)
[2017-08-18] MEDS: ENOXAPARIN 30 MG/0.3 ML SYG SC SCH (09:00)
[2017-08-18] MEDS: INSULIN GLARGINE [LANtus] 3 ML PEN SC SCH ×2 (09:06→20:57)
--- NOTE | 2017-08-18 10:03 | CONS ---
Date/Time of Note Date/Time of Note DATE: 08/18/17 TIME: 09:59 Assessment/Plan Assessment/Plan Additional Assessment/Plan 1. Acute Kidney inury on CKD due to Prerenal azotemia and Infection 2. Left finger infection possibel recurrent OM of left finger 3.h/o OM of R 2nd finger s/p amputation at proximal phalanx neck, and h/o OM of L 3rd finger s/p amputation at middle and distal phalanges 4. 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 h/o ESRD, was on HD - s/p renal transplant in 2009 (on tacrolimus 3mg bid, mycophenolate 540 mg bid, prednisone 5 mg daily), mild renal insufficiency at baseline 6. rheumatoid arthritis 7. chronic HCV infection 8. HTN 9. dyslipidemia 10. h/o polysubstance and IV drug use. 11. h/o pernicious anemia. 12. h/o erosive esophagitis and gastritis 13. Hyperkalemia- resolved after prograf stopped Plan: Cr last one is 1.76- no labs today to review yet - prograf was stopped last week due to rising cr and Hyperkalemia- we will continue to hold off prograf now Continue IV NS at 60 cc/hr stat CBC and BMP ordered for today- depending on labs we will decide for IVF and resumption of prograf. IV abx as per ID pt has previously had a full CKD work up - no need to repeat it Continue current Immunosuppression for kidney transplant,( Tacrolimus stoppday on - continue mycophenolate 540 mg bid, prednisone 5 mg daily) pt has no signs and symptoms of tracrolimus toxicity, so we will monitor it. Consultation Date/Type/Reason Admit Date/Time Aug 08, 2017 at 16:53 Initial Consult Date 08/09/17 Type of Consultation: NEPHROLOGY Referring Provider: LUPE KAPLAN MD 24 HR Interval Summary Free Text/Dictation pt stable, doing well, no labs today to review last cr 1.74 Exam/Review of Systems Vital Signs Vitals Vital Signs Date Time Temp Pulse Resp B/P Pulse Ox O2 Delivery O2 Flow Rate FiO2 08/18/17 07:53 97.7 60 18 146/81 98 08/17/17 02:00 Room Air Intake and Output 08/17/17 08/17/17 08/18/17 15:00 23:00 07:00 Intake Total 50 ml 1230 ml 1330 ml Output Total 1200 ml 750 ml Balance 50 ml 30 ml 580 ml Exam Constitutional: alert Psych: no complaints Head: normocephalic ENMT: nl external ears & nose Neck: non-tender, supple Respiratory: clear to auscultation, diminished breath sounds, normal air movement Cardiovascular: nl pulses, regular rate and rhythm Gastrointestinal: non-tender, soft Musculoskeletal: nl extremities to inspection, other ((left finger swelling )) 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, nl mental status, nl speech Results Result Diagram: 08/16/1751408/16/17514 Results 24 hrs Laboratory Tests Test 08/17/17 12:09 08/17/17 17:14 08/17/17 21:18 08/18/17 02:41 Bedside Glucose 127 173 192 81 Test 08/18/17 08:06 08/18/17 08:24 08/18/17 08:49 Bedside Glucose 67 L 87 130 Medications Medications Current Medications Clonidine (Catapres) 0.1 mg Q4H PRN PO ELEVATED BLOOD PRESSURE Last administered on 08/12/17 06:11; Admin Dose 0.1 MG; Start 08/08/17 at 21:00 Metoprolol Tartrate (Lopressor) 50 mg BID PO Last administered on 08/18/17 08 :17; Admin Dose 50 MG; Start 08/08/17 at 21:26 Mycophenolate Sodium (Myfortic) 540 mg BID PO Last administered on 08/18/17 08:17; Admin Dose 540 MG; Start 08/08/17 at 22:00 Prednisone (Prednisone) 5 mg DAILY PO Last administered on 08/18/17 08:17; Admin Dose 5 MG; Start 08/09/17 at 09:00 Diagnostic Test (Pha) (Accu-Chek) 1 ea 02 XX Last administered on 08/16/17 01 :39; Admin Dose 1 EA; Start 08/09/17 at 02:00 Miscellaneous Information 1 ea NOTE XX ; Start 08/08/17 at 21:30 Glucose (Glutose) 15 gm Q15M PRN PO DECREASED GLUCOSE; Start 08/08/17 at 21:30 Glucose (Glutose) 22.5 gm Q15M PRN PO DECREASED GLUCOSE; Start 08/08/17 at 21: 30 Dextrose (D50w Syringe) 25 ml Q15M PRN IV DECREASED GLUCOSE; Start 08/08/17 at 21:30 Dextrose (D50w Syringe) 50 ml Q15M PRN IV DECREASED GLUCOSE; Start 08/08/17 at 21:30 Glucagon (Glucagen) 1 mg Q15M PRN IM DECREASED GLUCOSE; Start 08/08/17 at 21:30 Glucose (Glutose) 15 gm Q15M PRN BUCCAL DECREASED GLUCOSE; Start 08/08/17 at 21 :30 Acetaminophen/ Hydrocodone Bitart ([place] (7.5-325)) 1 tab Q4H PRN PO PAIN LEVEL 4-7 Last administered on 08/18/17 05:11; Admin Dose 1 TAB; Start at 09:30 Amlodipine Besylate 5 mg 5 mg DAILY PO Last administered on 08/18/17 08:18; Admin Dose 5 MG; Start 08/09/17 at 09:30 Piperacillin Sod/ Tazobactam Sod (Zosyn 2.25gm/ 50ml (Pmx)) 50 ml @ 100 mls/hr Q8 IVPB Last administered on 08/18/17 05:11; Admin Dose 100 MLS/HR; Start at 14:30 Enoxaparin Sodium (Lovenox) 30 mg DAILY SC ; Start 08/13/17 at 09:00 Morphine Sulfate (morphine) 2 mg Q4H PRN IV PAIN LEVEL 6-10 Last administered on 08/14/17 20:55; Admin Dose 2 MG; Start 08/13/17 at 11:30 Ondansetron HCl (Zofran Inj) 4 mg Q4H PRN IV NAUSEA AND/OR VOMITING Last administered on 08/13/17 16:07; Admin Dose 4 MG; Start 08/13/17 at 11:30 Hydralazine HCl (Apresoline) 10 mg Q6H PRN IV ELEVATED BLOOD PRESSURE Last administered on 08/16/17 01:33; Admin Dose 10 MG; Start 08/13/17 at 14:00 Metoclopramide HCl (Reglan) 10 mg Q8 IV Last administered on 08/17/17 21:23; Admin Dose 10 MG; Start 08/13/17 at 22:00 Insulin Glargine 8 unit 8 unit BID SC Last administered on 08/18/17 09:06; Admin Dose 8 UNIT; Start 08/14/17 at 21:00 Sodium Chloride 1,000 ml @ 60 mls/hr [id number] IV Last administered on 17:23; Admin Dose 60 MLS/HR; Start 08/14/17 at 18:00 Daptomycin/Sodium Chloride (Cubicin/NS) 100 ml @ 200 mls/hr Q48H IVPB Last administered on 08/17/17 00:26; Admin Dose 200 MLS/HR; Start 08/17/17 at 00: 00 Pantoprazole (Protonix Tab) 40 mg DAILY@06 PO Last administered on 08/18/17 05:11; Admin Dose 40 MG; Start 08/17/17 at 06:00 SHAKA SIMPSON MD Aug 18, 2017 10:03
--- NOTE | 2017-08-18 10:41 | CONS ---
Date/Time of Note Date/Time of Note DATE: 08/18/17 TIME: 10:39 Assessment/Plan Assessment/Plan Chief Complaint/Hosp Course assessment/impression - recurrent OM of R 3rd fingertip (XR showed periosteal reaction at the tip of R 3rd distal phalanx, suspicious for OM, MRI showed cellulitis of distal R 4th phalanx, without OM) and L 2nd fingertip (XR showed cortical irregularity at the tuft of L 2nd distal phalanx with overlying soft tissue defect, suggesting early OM, MRI showed OM at L 2nd distal phalanx with, cellulitis about L 2nd distal phalanx without drainable fluid collection.) - h/o OM of R 2nd finger s/p amputation at proximal phalanx neck, and h/o OM of L 3rd finger s/p amputation at middle and distal phalanges - DM - Juan's esophagus and gastritis s/p EGD on 08/12/2017. No H. pylori on Bx - h/o ESRD, was on HD - s/p renal transplant in 2009 (on tacrolimus 3mg bid, mycophenolate 540 mg bid , prednisone 5 mg daily), mild renal insufficiency at baseline - rheumatoid arthritis - chronic HCV infection - HTN - dyslipidemia - h/o polysubstance and IV drug use. - h/o pernicious anemia. - h/o hyperparathyroidism. recommendations - continue renally dosed pip/tazo and daptomycin (08/09/2017-). I recommend 6 weeks of IV antibiotics for his recurrent OM. Need to monitor CK while Pt's on daptomycin. CK was 25 on 08/12/2017. Will adjust the dose according to GFR - hand hygiene and prevention of injuries and infection at work discussed with Pt several times during this admission. He understood. 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 Problems: Consultation Date/Type/Reason Admit Date/Time Aug 08, 2017 at 16:53 Initial Consult Date 08/09/17 Type of Consultation: ID Referring Provider: LUPE KAPLAN MD 24 HR Interval Summary Constitutional: no complaints Detailed Summary Eyes: no complaints ENT: no complaints Respiratory: no complaints Cardiovascular: no complaints Gastrointestinal: no complaints Genitourinary: no complaints, No dysuria Musculoskeletal: no complaints, other (s/p amputation of fingertip of R 2nd and L 3rd), No bone/joint pain, No restricted range of motion Skin: other (old skin tears and laceration on finger tips, painless) Neurologic: no complaints Exam/Review of Systems Vital Signs Vitals Vital Signs Date Time Temp Pulse Resp B/P Pulse Ox O2 Delivery O2 Flow Rate FiO2 08/18/17 07:53 97.7 60 18 146/81 98 08/17/17 02:00 Room Air Intake and Output 08/17/17 08/17/17 08/18/17 15:00 23:00 07:00 Intake Total 50 ml 1230 ml 1330 ml Output Total 1200 ml 750 ml Balance 50 ml 30 ml 580 ml Exam Constitutional: alert, oriented, well developed Psych: nl mood/affect, no complaints Head: atraumatic, normocephalic Eyes: nl conjunctiva, nl lids ENMT: nl external ears & nose, nl nasal mucosa & septum Neck: supple Musculoskeletal: range of motion (full), swelling (mild, L 2rd finger) Extremities: normal pulses, No edema 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: DRIER II-XII intact, nl mental status, nl speech, nl strength Skin: rash or lesions (old lecerations on the finger tips, fingertips were non- TTP) Results Result Diagram: 08/16/1751408/16/1715 Results 24 hrs Laboratory Tests Test 08/17/17 12:09 08/17/17 17:14 08/17/17 21:18 08/18/17 02:41 Bedside Glucose 127 173 192 81 Test 08/18/17 08:06 08/18/17 08:24 08/18/17 08:49 Bedside Glucose 67 L 87 130 Medications Medications Current Medications Clonidine (Catapres) 0.1 mg Q4H PRN PO ELEVATED BLOOD PRESSURE Last administered on 08/12/17 06:11; Admin Dose 0.1 MG; Start 08/08/17 at 21:00 Metoprolol Tartrate (Lopressor) 50 mg BID PO Last administered on 08/18/17 08 :17; Admin Dose 50 MG; Start 08/08/17 at 21:26 Mycophenolate Sodium (Myfortic) 540 mg BID PO Last administered on 08/18/17 08:17; Admin Dose 540 MG; Start 08/08/17 at 22:00 Prednisone (Prednisone) 5 mg DAILY PO Last administered on 08/18/17 08:17; Admin Dose 5 MG; Start 08/09/17 at 09:00 Diagnostic Test (Pha) (Accu-Chek) 1 ea 02 XX Last administered on 08/16/17 01 :39; Admin Dose 1 EA; Start 08/09/17 at 02:00 Miscellaneous Information 1 ea NOTE XX ; Start 08/08/17 at 21:30 Glucose (Glutose) 15 gm Q15M PRN PO DECREASED GLUCOSE; Start 08/08/17 at 21:30 Glucose (Glutose) 22.5 gm Q15M PRN PO DECREASED GLUCOSE; Start 08/08/17 at 21: 30 Dextrose (D50w Syringe) 25 ml Q15M PRN IV DECREASED GLUCOSE; Start 08/08/17 at 21:30 Dextrose (D50w Syringe) 50 ml Q15M PRN IV DECREASED GLUCOSE; Start 08/08/17 at 21:30 Glucagon (Glucagen) 1 mg Q15M PRN IM DECREASED GLUCOSE; Start 08/08/17 at 21:30 Glucose (Glutose) 15 gm Q15M PRN BUCCAL DECREASED GLUCOSE; Start 08/08/17 at 21 :30 Acetaminophen/ Hydrocodone Bitart ([place] (7.5-325)) 1 tab Q4H PRN PO PAIN LEVEL 4-7 Last administered on 08/18/17 10:10; Admin Dose 1 TAB; Start at 09:30 Amlodipine Besylate 5 mg 5 mg DAILY PO Last administered on 08/18/17 08:18; Admin Dose 5 MG; Start 08/09/17 at 09:30 Piperacillin Sod/ Tazobactam Sod (Zosyn 2.25gm/ 50ml (Pmx)) 50 ml @ 100 mls/hr Q8 IVPB Last administered on 08/18/17 05:11; Admin Dose 100 MLS/HR; Start at 14:30 Enoxaparin Sodium (Lovenox) 30 mg DAILY SC ; Start 08/13/17 at 09:00 Morphine Sulfate (morphine) 2 mg Q4H PRN IV PAIN LEVEL 6-10 Last administered on 08/14/17 20:55; Admin Dose 2 MG; Start 08/13/17 at 11:30 Ondansetron HCl (Zofran Inj) 4 mg Q4H PRN IV NAUSEA AND/OR VOMITING Last administered on 08/13/17 16:07; Admin Dose 4 MG; Start 08/13/17 at 11:30 Hydralazine HCl (Apresoline) 10 mg Q6H PRN IV ELEVATED BLOOD PRESSURE Last administered on 08/16/17 01:33; Admin Dose 10 MG; Start 08/13/17 at 14:00 Metoclopramide HCl (Reglan) 10 mg Q8 IV Last administered on 08/17/17 21:23; Admin Dose 10 MG; Start 08/13/17 at 22:00 Insulin Glargine 8 unit 8 unit BID SC Last administered on 08/18/17 09:06; Admin Dose 8 UNIT; Start 08/14/17 at 21:00 Sodium Chloride 1,000 ml @ 60 mls/hr [id number] IV Last administered on 17:23; Admin Dose 60 MLS/HR; Start 08/14/17 at 18:00 Daptomycin/Sodium Chloride (Cubicin/NS) 100 ml @ 200 mls/hr Q48H IVPB Last administered on 08/17/17 00:26; Admin Dose 200 MLS/HR; Start 08/17/17 at 00: 00 Pantoprazole (Protonix Tab) 40 mg DAILY@06 PO Last administered on 08/18/17 05:11; Admin Dose 40 MG; Start 08/17/17 at 06:00 MAGO VAIL M.D. Aug 18, 2017 10:41
[2017-08-18 11:50] LABS: BASOPHILS % 0.8 % (0.0-2.0); HEMATOCRIT 48.5 % (42.0-52.0); HEMOGLOBIN 15.3 g/dl (14.0-18.0); LYMPHOCYTES # 0.7 10^3/ul (0.8-2.9); LYMPHOCYTES % 17.2 % (15.0-51.0); MEAN CORPUSCULAR HEMOGLOBIN 32.4 pg (29.0-33.0); MEAN CORPUSCULAR HGB CONC 31.5 g/dl (32.0-37.0); MEAN CORPUSCULAR VOLUME 102.8 fl (82.0-101.0); MEAN PLATELET VOLUME 11.3 fl (7.4-10.4); MONOCYTE # 0.5 10^3/ul (0.3-0.9); MONOCYTES % 13.1 % (0.0-11.0); NEUTROPHIL # 2.7 10^3/ul (1.6-7.5); NEUTROPHILS % 67.6 % (39.0-77.0); PLATELET COUNT 146 10^3/UL (140-415); RED BLOOD COUNT 4.72 10^6/ul (4.70-6.10); RED CELL DISTRIBUTION WIDTH 11.9 % (11.5-14.5)
[2017-08-18 12:29] LABS: CALCIUM 10.2 mg/dl (8.4-10.2); CREATININE 1.52 mg/dl (0.61-1.24); POTASSIUM 4.6 mmol/L (3.5-5.1)
[2017-08-18] MEDS: SOD CHLORIDE 0.45% 1,000 ML IV SCH ×2 (13:21→22:00)
[2017-08-18 14:26] VITALS: BP 118/70; RESP 18
--- NOTE | 2017-08-18 18:21 | PN ---
Date/Time of Note Date/Time of Note DATE: 08/18/17 TIME: 18:19 Assessment/Plan VTE Prophylaxis VTE Prophylaxis Intervention: SCD's Lines/Catheters IV Catheter Type (from [facility]): Peripheral IV Urinary Cath still in place: No Assessment/Plan Chief Complaint/Hosp Course Pt denies any emesis denies nausea denies, tolerated diet well, denies abdominal pain. Assessment/Plan - Right 3rd finger distal osteomyelitis. Left index finger distal phalanx also suggests early osteomyelitis. Continue antibiotics per ID. Dr. Awan is following infection disease consultation. - Juan's esophagus and severe gastritis per EGD on 08/13. Continue Protonix. - Weight loss, abdominal pain and melenic stools. Dr Hartley is following in in gastroenterology consultation. - End-stage renal disease, status post kidney transplant in 2009. Continued on antirejection therapy with baseline creatinine is about 1.5. - Hypertension. Continue Norvasc and metoprolol. - Diabetes mellitus. Continue NovoLog per mild algorithm sliding scale. - Hepatitis C. Further recommendations based on clinical course. Plan of care discussed with Dr. Maier. Problems: Exam/Review of Systems Vital Signs Vitals Vital Signs Date Time Temp Pulse Resp B/P Pulse Ox O2 Delivery O2 Flow Rate FiO2 08/18/17 14:26 98.4 65 18 118/70 96 08/17/17 02:00 Room Air Intake and Output 08/17/17 08/17/17 08/18/17 15:00 23:00 07:00 Intake Total 50 ml 1230 ml 1330 ml Output Total 1200 ml 750 ml Balance 50 ml 30 ml 580 ml Exam Constitutional: alert, oriented Head: normocephalic Neck: supple Respiratory: normal air movement Cardiovascular: nl pulses Gastrointestinal: non-tender, soft Extremities: normal pulses Results Result Diagram: 08/18/17 1114 08/18/17 1114 Results 24 hrs Laboratory Tests Test 08/17/17 21:18 08/18/17 02:41 08/18/17 08:06 08/18/17 08:24 Bedside Glucose 192 81 67 L 87 Test 08/18/17 08:49 08/18/17 11:14 08/18/17 12:00 08/18/17 17:33 Bedside Glucose 130 131 114 White Blood Count 4.0 L Red Blood Count 4.72 Hemoglobin 15.3 Hematocrit 48.5 Mean Corpuscular Volume 102.8 H Mean Corpuscular Hemoglobin 32.4 Mean Corpuscular Hemoglobin Concent 31.5 L Red Cell Distribution Width 11.9 Platelet Count 146 Mean Platelet Volume 11.3 H Neutrophils % 67.6 Lymphocytes % 17.2 Monocytes % 13.1 H Eosinophils % 1.0 Basophils % 0.8 Nucleated Red Blood Cells % 0.0 Neutrophils # 2.7 Lymphocytes # 0.7 L Monocytes # 0.5 Eosinophils # 0.0 Basophils # 0.0 Nucleated Red Blood Cells # 0.0 Sodium Level 139 Potassium Level 4.6 Chloride Level 106 Carbon Dioxide Level 22 Anion Gap 16 Blood Urea Nitrogen 20 Creatinine 1.52 H Glucose Level 110 Calcium Level 10.2 Medications Medications Current Medications Clonidine (Catapres) 0.1 mg Q4H PRN PO ELEVATED BLOOD PRESSURE Last administered on 08/12/17 06:11; Admin Dose 0.1 MG; Start 08/08/17 at 21:00 Metoprolol Tartrate (Lopressor) 50 mg BID PO Last administered on 08/18/17 08 :17; Admin Dose 50 MG; Start 08/08/17 at 21:26 Mycophenolate Sodium (Myfortic) 540 mg BID PO Last administered on 08/18/17 08:17; Admin Dose 540 MG; Start 08/08/17 at 22:00 Prednisone (Prednisone) 5 mg DAILY PO Last administered on 08/18/17 08:17; Admin Dose 5 MG; Start 08/09/17 at 09:00 Diagnostic Test (Pha) (Accu-Chek) 1 ea 02 XX Last administered on 08/16/17 01 :39; Admin Dose 1 EA; Start 08/09/17 at 02:00 Miscellaneous Information 1 ea NOTE XX ; Start 08/08/17 at 21:30 Glucose (Glutose) 15 gm Q15M PRN PO DECREASED GLUCOSE; Start 08/08/17 at 21:30 Glucose (Glutose) 22.5 gm Q15M PRN PO DECREASED GLUCOSE; Start 08/08/17 at 21: 30 Dextrose (D50w Syringe) 25 ml Q15M PRN IV DECREASED GLUCOSE; Start 08/08/17 at 21:30 Dextrose (D50w Syringe) 50 ml Q15M PRN IV DECREASED GLUCOSE; Start 08/08/17 at 21:30 Glucagon (Glucagen) 1 mg Q15M PRN IM DECREASED GLUCOSE; Start 08/08/17 at 21:30 Glucose (Glutose) 15 gm Q15M PRN BUCCAL DECREASED GLUCOSE; Start 08/08/17 at 21 :30 Acetaminophen/ Hydrocodone Bitart ([place] (7.5-325)) 1 tab Q4H PRN PO PAIN LEVEL 4-7 Last administered on 08/18/17 17:45; Admin Dose 1 TAB; Start at 09:30 Amlodipine Besylate 5 mg 5 mg DAILY PO Last administered on 08/18/17 08:18; Admin Dose 5 MG; Start 08/09/17 at 09:30 Piperacillin Sod/ Tazobactam Sod (Zosyn 2.25gm/ 50ml (Pmx)) 50 ml @ 100 mls/hr Q8 IVPB Last administered on 08/18/17 13:19; Admin Dose 100 MLS/HR; Start at 14:30 Enoxaparin Sodium (Lovenox) 30 mg DAILY SC ; Start 08/13/17 at 09:00 Morphine Sulfate (morphine) 2 mg Q4H PRN IV PAIN LEVEL 6-10 Last administered on 08/14/17 20:55; Admin Dose 2 MG; Start 08/13/17 at 11:30 Ondansetron HCl (Zofran Inj) 4 mg Q4H PRN IV NAUSEA AND/OR VOMITING Last administered on 08/13/17 16:07; Admin Dose 4 MG; Start 08/13/17 at 11:30 Hydralazine HCl (Apresoline) 10 mg Q6H PRN IV ELEVATED BLOOD PRESSURE Last administered on 08/16/17 01:33; Admin Dose 10 MG; Start 08/13/17 at 14:00 Metoclopramide HCl 10 mg 10 mg Q8 IV Last administered on 08/17/17 21:23; Admin Dose 10 MG; Start 08/13/17 at 22:00 Sodium Chloride 1,000 ml @ 60 mls/hr [id number] IV Last administered on 13:21; Admin Dose 60 MLS/HR; Start 08/14/17 at 18:00 Daptomycin/Sodium Chloride (Cubicin/NS) 100 ml @ 200 mls/hr Q48H IVPB Last administered on 08/17/17 00:26; Admin Dose 200 MLS/HR; Start 08/17/17 at 00: 00 Pantoprazole (Protonix Tab) 40 mg DAILY@06 PO Last administered on 08/18/17 05:11; Admin Dose 40 MG; Start 08/17/17 at 06:00 Insulin Glargine (Lantus) 5 unit BID SC ; Start 08/18/17 at 21:00 LETI RODRIGUEZ Aug 18, 2017 18:21
[2017-08-18 20:24] VITALS: BP 164/88; RESP 18
[2017-08-18 23:00] VITALS: BP 143/79; PULSE 55; RESP 20
[2017-08-18] MEDS: DAPTOMYCIN 250 MG in SOD CHLORIDE 0.9% 100 ML IVPB SCH (23:50)
[2017-08-19] MEDS: ACCU-CHEK XX SCH (01:29)
[2017-08-19 02:12] VITALS: BP 160/63; RESP 18
[2017-08-19] MEDS: PIPER-TAZO 2.25 GM (PMX) 50 ML IVPB SCH ×3 (04:45→21:23)
[2017-08-19] MEDS: METOCLOPRAMIDE 10 MG INJ IV SCH ×3 (04:49→21:26)
[2017-08-19] MEDS: PANTOPRAZOLE (EC) 40 MG TAB PO SCH (06:00)
[2017-08-19 06:37] LABS: BASOPHIL # 0.1 10^3/ul (0.0-0.1); BASOPHILS % 1.5 % (0.0-2.0); EOSINOPHILS % 1.2 % (0.0-7.0); HEMOGLOBIN 15.8 g/dl (14.0-18.0); LYMPHOCYTES % 28.9 % (15.0-51.0); MEAN CORPUSCULAR HEMOGLOBIN 33.5 pg (29.0-33.0); MEAN CORPUSCULAR HGB CONC 32.9 g/dl (32.0-37.0); MEAN CORPUSCULAR VOLUME 101.7 fl (82.0-101.0); MEAN PLATELET VOLUME 11.4 fl (7.4-10.4); MONOCYTE # 0.4 10^3/ul (0.3-0.9); MONOCYTES % 10.6 % (0.0-11.0); NEUTROPHILS % 57.5 % (39.0-77.0); PLATELET COUNT 155 10^3/UL (140-415); RED BLOOD COUNT 4.72 10^6/ul (4.70-6.10); RED CELL DISTRIBUTION WIDTH 11.6 % (11.5-14.5); WHITE BLOOD COUNT 3.4 10^3/ul (4.8-10.8)
[2017-08-19 07:13] LABS: CALCIUM 10.5 mg/dl (8.4-10.2); CREATININE 1.45 mg/dl (0.61-1.24)
[2017-08-19 07:54] VITALS: BP 151/93; RESP 16
[2017-08-19] MEDS: INSULIN ASPART [NOVOLOG] 3 ML PEN SC SCH ×4 (08:15→21:00)
[2017-08-19] MEDS: ENOXAPARIN 30 MG/0.3 ML SYG SC SCH ×2 (09:00→09:09)
[2017-08-19] MEDS: HYDROCODONE/APAP (7.5/325) TAB PO PRN ×2 (09:05→13:39)
[2017-08-19] MEDS: MYCOPHENOLATE (SR) 180 MG TAB PO SCH ×2 (09:05→21:23)
[2017-08-19] MEDS: AMLODIPINE 5 MG TAB PO SCH (09:06)
[2017-08-19] MEDS: METOPROLOL 50 MG TAB PO SCH ×2 (09:06→21:24)
[2017-08-19] MEDS: predniSONE 5 MG TAB PO SCH (09:06)
[2017-08-19] MEDS: INSULIN GLARGINE [LANtus] 3 ML PEN SC SCH ×2 (09:09→21:26)
--- NOTE | 2017-08-19 09:14 | CONS ---
Date/Time of Note Date/Time of Note DATE: 08/19/17 TIME: 09:12 Assessment/Plan Assessment/Plan Additional Assessment/Plan 1. Acute Kidney inury on CKD due to Prerenal azotemia and Infection 2. Left finger infection possibel recurrent OM of left finger 3.h/o OM of R 2nd finger s/p amputation at proximal phalanx neck, and h/o OM of L 3rd finger s/p amputation at middle and distal phalanges 4. 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 h/o ESRD, was on HD - s/p renal transplant in 2009 (on tacrolimus 3mg bid, mycophenolate 540 mg bid, prednisone 5 mg daily), mild renal insufficiency at baseline 6. rheumatoid arthritis 7. chronic HCV infection 8. HTN 9. dyslipidemia 10. h/o polysubstance and IV drug use. 11. h/o pernicious anemia. 12. h/o erosive esophagitis and gastritis 13. Hyperkalemia- resolved after prograf stopped Plan: Cr improved to 1.45 - prograf was stopped last week due to rising cr and Hyperkalemia- we will continue to hold off prograf now and plan is to start it from Continue IV NS at 60 cc/hr IV abx as per ID pt has previously had a full CKD work up - no need to repeat it Continue current Immunosuppression for kidney transplant,( Tacrolimus stoppday on - continue mycophenolate 540 mg bid, prednisone 5 mg daily) pt has no signs and symptoms of tracrolimus toxicity, so we will monitor it. Consultation Date/Type/Reason Admit Date/Time Aug 08, 2017 at 16:53 Initial Consult Date 08/09/17 Type of Consultation: NEPHROLOGY Reason for Consultation kidney transplant patient with Acute kidney injury Referring Provider: LUPE KAPLAN MD 24 HR Interval Summary Free Text/Dictation Cr improved to 1.45, tacrolimus has been on hold Exam/Review of Systems Vital Signs Vitals Vital Signs Date Time Temp Pulse Resp B/P Pulse Ox O2 Delivery O2 Flow Rate FiO2 08/19/17 07:54 97.8 62 16 151/93 99 08/17/17 02:00 Room Air Intake and Output 08/18/17 08/18/17 08/19/17 15:00 23:00 07:00 Intake Total 270 ml 1570 ml 750 ml Output Total 1800 ml Balance 270 ml -230 ml 750 ml Exam Constitutional: alert Psych: no complaints Head: normocephalic ENMT: nl external ears & nose Neck: non-tender, supple Respiratory: clear to auscultation, diminished breath sounds, normal air movement Cardiovascular: nl pulses, regular rate and rhythm Gastrointestinal: non-tender, soft Musculoskeletal: nl extremities to inspection, other ((left finger swelling )) 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: SURVEILLANCE DIRECTOR II-XII intact, nl mental status, nl speech Results Result Diagram: 08/19/17 0543 08/19/17 0543 Results 24 hrs Laboratory Tests Test 08/18/17 11:14 08/18/17 12:00 08/18/17 17:33 08/18/17 20:52 White Blood Count 4.0 L Red Blood Count 4.72 Hemoglobin 15.3 Hematocrit 48.5 Mean Corpuscular Volume 102.8 H Mean Corpuscular Hemoglobin 32.4 Mean Corpuscular Hemoglobin Concent 31.5 L Red Cell Distribution Width 11.9 Platelet Count 146 Mean Platelet Volume 11.3 H Neutrophils % 67.6 Lymphocytes % 17.2 Monocytes % 13.1 H Eosinophils % 1.0 Basophils % 0.8 Nucleated Red Blood Cells % 0.0 Neutrophils # 2.7 Lymphocytes # 0.7 L Monocytes # 0.5 Eosinophils # 0.0 Basophils # 0.0 Nucleated Red Blood Cells # 0.0 Sodium Level 139 Potassium Level 4.6 Chloride Level 106 Carbon Dioxide Level 22 Anion Gap 16 Blood Urea Nitrogen 20 Creatinine 1.52 H Glucose Level 110 Calcium Level 10.2 Bedside Glucose 131 114 171 Test 08/19/17 05:43 08/19/17 08:06 White Blood Count 3.4 L Red Blood Count 4.72 Hemoglobin 15.8 Hematocrit 48.0 Mean Corpuscular Volume 101.7 H Mean Corpuscular Hemoglobin 33.5 H Mean Corpuscular Hemoglobin Concent 32.9 Red Cell Distribution Width 11.6 Platelet Count 155 Mean Platelet Volume 11.4 H Neutrophils % 57.5 Lymphocytes % 28.9 Monocytes % 10.6 Eosinophils % 1.2 Basophils % 1.5 Nucleated Red Blood Cells % 0.0 Neutrophils # 2.0 Lymphocytes # 1.0 Monocytes # 0.4 Eosinophils # 0.0 Basophils # 0.1 Nucleated Red Blood Cells # 0.0 Sodium Level 140 Potassium Level 5.0 Chloride Level 107 Carbon Dioxide Level 23 Anion Gap 15 Blood Urea Nitrogen 23 H Creatinine 1.45 H Glucose Level 81 Calcium Level 10.5 H Creatine Kinase 26 Bedside Glucose 89 Medications Medications Current Medications Clonidine (Catapres) 0.1 mg Q4H PRN PO ELEVATED BLOOD PRESSURE Last administered on 08/12/17 06:11; Admin Dose 0.1 MG; Start 08/08/17 at 21:00 Metoprolol Tartrate (Lopressor) 50 mg BID PO Last administered on 08/19/17 09 :06; Admin Dose 50 MG; Start 08/08/17 at 21:26 Mycophenolate Sodium (Myfortic) 540 mg BID PO Last administered on 08/19/17 09:05; Admin Dose 540 MG; Start 08/08/17 at 22:00 Prednisone (Prednisone) 5 mg DAILY PO Last administered on 08/19/17 09:06; Admin Dose 5 MG; Start 08/09/17 at 09:00 Diagnostic Test (Pha) (Accu-Chek) 1 ea 02 XX Last administered on 08/16/17 01 :39; Admin Dose 1 EA; Start 08/09/17 at 02:00 Miscellaneous Information 1 ea NOTE XX ; Start 08/08/17 at 21:30 Glucose (Glutose) 15 gm Q15M PRN PO DECREASED GLUCOSE; Start 08/08/17 at 21:30 Glucose (Glutose) 22.5 gm Q15M PRN PO DECREASED GLUCOSE; Start 08/08/17 at 21: 30 Dextrose (D50w Syringe) 25 ml Q15M PRN IV DECREASED GLUCOSE; Start 08/08/17 at 21:30 Dextrose (D50w Syringe) 50 ml Q15M PRN IV DECREASED GLUCOSE; Start 08/08/17 at 21:30 Glucagon (Glucagen) 1 mg Q15M PRN IM DECREASED GLUCOSE; Start 08/08/17 at 21:30 Glucose (Glutose) 15 gm Q15M PRN BUCCAL DECREASED GLUCOSE; Start 08/08/17 at 21 :30 Acetaminophen/ Hydrocodone Bitart ([place] (7.5-325)) 1 tab Q4H PRN PO PAIN LEVEL 4-7 Last administered on 08/19/17 09:05; Admin Dose 1 TAB; Start at 09:30 Amlodipine Besylate 5 mg 5 mg DAILY PO Last administered on 08/19/17 09:06; Admin Dose 5 MG; Start 08/09/17 at 09:30 Piperacillin Sod/ Tazobactam Sod (Zosyn 2.25gm/ 50ml (Pmx)) 50 ml @ 100 mls/hr Q8 IVPB Last administered on 08/19/17 04:45; Admin Dose 100 MLS/HR; Start at 14:30 Enoxaparin Sodium (Lovenox) 30 mg DAILY SC Last administered on 08/19/17 09: 09; Admin Dose 30 MG; Start 08/13/17 at 09:00 Morphine Sulfate (morphine) 2 mg Q4H PRN IV PAIN LEVEL 6-10 Last administered on 08/14/17 20:55; Admin Dose 2 MG; Start 08/13/17 at 11:30 Ondansetron HCl (Zofran Inj) 4 mg Q4H PRN IV NAUSEA AND/OR VOMITING Last administered on 08/13/17 16:07; Admin Dose 4 MG; Start 08/13/17 at 11:30 Hydralazine HCl (Apresoline) 10 mg Q6H PRN IV ELEVATED BLOOD PRESSURE Last administered on 08/16/17 01:33; Admin Dose 10 MG; Start 08/13/17 at 14:00 Metoclopramide HCl 10 mg 10 mg Q8 IV Last administered on 08/17/17 21:23; Admin Dose 10 MG; Start 08/13/17 at 22:00 Sodium Chloride 1,000 ml @ 60 mls/hr [id number] IV Last administered on 13:21; Admin Dose 60 MLS/HR; Start 08/14/17 at 18:00 Daptomycin/Sodium Chloride (Cubicin/NS) 100 ml @ 200 mls/hr Q48H IVPB Last administered on 08/18/17 23:50; Admin Dose 200 MLS/HR; Start 08/17/17 at 00: 00 Pantoprazole (Protonix Tab) 40 mg DAILY@06 PO Last administered on 08/18/17 05:11; Admin Dose 40 MG; Start 08/17/17 at 06:00 Insulin Glargine (Lantus) 5 unit BID SC Last administered on 08/19/17 09:09; Admin Dose 5 UNIT; Start 08/18/17 at 21:00 SHAKA SIMPSON MD Aug 19, 2017 09:14
--- NOTE | 2017-08-19 11:34 | CONS ---
Date/Time of Note Date/Time of Note DATE: 08/19/17 TIME: 11:23 Assessment/Plan Assessment/Plan Chief Complaint/Hosp Course assessment/impression - recurrent OM of R 3rd fingertip (XR showed periosteal reaction at the tip of R 3rd distal phalanx, suspicious for OM, MRI showed cellulitis of distal R 4th phalanx, without OM) and L 2nd fingertip (XR showed cortical irregularity at the tuft of L 2nd distal phalanx with overlying soft tissue defect, suggesting early OM, MRI showed OM at L 2nd distal phalanx with, cellulitis about L 2nd distal phalanx without drainable fluid collection.) - h/o OM of R 2nd finger s/p amputation at proximal phalanx neck, and h/o OM of L 3rd finger s/p amputation at middle and distal phalanges - DM - Juan's esophagus and gastritis s/p EGD on 08/12/2017. No H. pylori on Bx - h/o ESRD, was on HD - s/p renal transplant in 2009 (on tacrolimus 3mg bid, mycophenolate 540 mg bid , prednisone 5 mg daily), mild renal insufficiency at baseline - rheumatoid arthritis - chronic HCV infection - HTN - dyslipidemia - h/o polysubstance and IV drug use. - h/o pernicious anemia. - h/o hyperparathyroidism. recommendations - continue renally dosed pip/tazo and daptomycin (08/09/2017-). I recommend 6 weeks of IV antibiotics for his recurrent OM. Need to monitor CK while Pt's on daptomycin. CK was 25 on 08/12/2017. will repeat tomorrow. Will adjust the dose according to GFR - management, hand hygiene, gloves, and prevention of injuries and infection discussed with Pt Problems: Consultation Date/Type/Reason Admit Date/Time Aug 08, 2017 at 16:53 Initial Consult Date 08/09/17 Type of Consultation: ID Referring Provider: LUPE KAPLAN MD 24 HR Interval Summary Constitutional: no complaints Detailed Summary Eyes: no complaints ENT: no complaints Respiratory: no complaints Cardiovascular: no complaints Gastrointestinal: no complaints Genitourinary: no complaints Musculoskeletal: No bone/joint pain Skin: no complaints, skin lesions (old laceration on fingertips), No erythema Neurologic: no complaints Exam/Review of Systems Vital Signs Vitals Vital Signs Date Time Temp Pulse Resp B/P Pulse Ox O2 Delivery O2 Flow Rate FiO2 08/19/17 07:54 97.8 62 16 151/93 99 08/17/17 02:00 Room Air Intake and Output 08/18/17 08/18/17 08/19/17 15:00 23:00 07:00 Intake Total 270 ml 1570 ml 750 ml Output Total 1800 ml Balance 270 ml -230 ml 750 ml Exam Constitutional: alert, oriented, well developed Psych: no complaints Head: normocephalic Eyes: nl conjunctiva ENMT: nl external ears & nose, nl nasal mucosa & septum Neck: supple Musculoskeletal: swelling (L 2nd fingertip, but not fluctuant) Extremities: normal pulses, No edema 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: GUEST EXPERIENCE SPECIALIST II-XII intact, nl mental status, nl speech, nl strength Skin: other (pale color of L 2nd fingertip but non-TTP) Results Result Diagram: 08/19/17 0543 08/19/17 0543 Results 24 hrs Laboratory Tests Test 08/18/17 12:00 08/18/17 17:33 08/18/17 20:52 08/19/17 05:43 Bedside Glucose 131 114 171 White Blood Count 3.4 L Red Blood Count 4.72 Hemoglobin 15.8 Hematocrit 48.0 Mean Corpuscular Volume 101.7 H Mean Corpuscular Hemoglobin 33.5 H Mean Corpuscular Hemoglobin Concent 32.9 Red Cell Distribution Width 11.6 Platelet Count 155 Mean Platelet Volume 11.4 H Neutrophils % 57.5 Lymphocytes % 28.9 Monocytes % 10.6 Eosinophils % 1.2 Basophils % 1.5 Nucleated Red Blood Cells % 0.0 Neutrophils # 2.0 Lymphocytes # 1.0 Monocytes # 0.4 Eosinophils # 0.0 Basophils # 0.1 Nucleated Red Blood Cells # 0.0 Sodium Level 140 Potassium Level 5.0 Chloride Level 107 Carbon Dioxide Level 23 Anion Gap 15 Blood Urea Nitrogen 23 H Creatinine 1.45 H Glucose Level 81 Calcium Level 10.5 H Creatine Kinase 26 Test 08/19/17 08:06 Bedside Glucose 89 Medications Medications Current Medications Clonidine (Catapres) 0.1 mg Q4H PRN PO ELEVATED BLOOD PRESSURE Last administered on 08/12/17t 06:11; Admin Dose 0.1 MG; Start 08/08/17 at 21:00 Metoprolol Tartrate (Lopressor) 50 mg BID PO Last administered on 08/19/17 09 :06; Admin Dose 50 MG; Start 08/08/17 at 21:26 Mycophenolate Sodium (Myfortic) 540 mg BID PO Last administered on 08/19/17 09:05; Admin Dose 540 MG; Start 08/08/17 at 22:00 Prednisone (Prednisone) 5 mg DAILY PO Last administered on 08/19/17 09:06; Admin Dose 5 MG; Start 08/09/17 at 09:00 Diagnostic Test (Pha) (Accu-Chek) 1 ea 02 XX Last administered on 08/16/17 01 :39; Admin Dose 1 EA; Start 08/09/17 at 02:00 Miscellaneous Information 1 ea NOTE XX ; Start 08/08/17 at 21:30 Glucose (Glutose) 15 gm Q15M PRN PO DECREASED GLUCOSE; Start 08/08/17 at 21:30 Glucose (Glutose) 22.5 gm Q15M PRN PO DECREASED GLUCOSE; Start 08/08/17 at 21: 30 Dextrose (D50w Syringe) 25 ml Q15M PRN IV DECREASED GLUCOSE; Start 08/08/17 at 21:30 Dextrose (D50w Syringe) 50 ml Q15M PRN IV DECREASED GLUCOSE; Start 08/08/17 at 21:30 Glucagon (Glucagen) 1 mg Q15M PRN IM DECREASED GLUCOSE; Start 08/08/17 at 21:30 Glucose (Glutose) 15 gm Q15M PRN BUCCAL DECREASED GLUCOSE; Start 08/08/17 at 21 :30 Acetaminophen/ Hydrocodone Bitart ([place] (7.5-325)) 1 tab Q4H PRN PO PAIN LEVEL 4-7 Last administered on 08/19/17 09:05; Admin Dose 1 TAB; Start at 09:30 Amlodipine Besylate 5 mg 5 mg DAILY PO Last administered on 08/19/17 09:06; Admin Dose 5 MG; Start 08/09/17 at 09:30 Piperacillin Sod/ Tazobactam Sod (Zosyn 2.25gm/ 50ml (Pmx)) 50 ml @ 100 mls/hr Q8 IVPB Last administered on 08/19/17 04:45; Admin Dose 100 MLS/HR; Start at 14:30 Enoxaparin Sodium (Lovenox) 30 mg DAILY SC ; Start 08/13/17 at 09:00 Morphine Sulfate (morphine) 2 mg Q4H PRN IV PAIN LEVEL 6-10 Last administered on 08/14/17 20:55; Admin Dose 2 MG; Start 08/13/17 at 11:30 Ondansetron HCl (Zofran Inj) 4 mg Q4H PRN IV NAUSEA AND/OR VOMITING Last administered on 08/13/17 16:07; Admin Dose 4 MG; Start 08/13/17 at 11:30 Hydralazine HCl (Apresoline) 10 mg Q6H PRN IV ELEVATED BLOOD PRESSURE Last administered on 08/16/17 01:33; Admin Dose 10 MG; Start 08/13/17 at 14:00 Metoclopramide HCl 10 mg 10 mg Q8 IV Last administered on 08/17/17 21:23; Admin Dose 10 MG; Start 08/13/17 at 22:00 Sodium Chloride 1,000 ml @ 60 mls/hr [id number] IV Last administered on 13:21; Admin Dose 60 MLS/HR; Start 08/14/17 at 18:00 Daptomycin/Sodium Chloride (Cubicin/NS) 100 ml @ 200 mls/hr Q48H IVPB Last administered on 08/18/17 23:50; Admin Dose 200 MLS/HR; Start 08/17/17 at 00: 00 Pantoprazole (Protonix Tab) 40 mg DAILY@06 PO Last administered on 08/18/17 05:11; Admin Dose 40 MG; Start 08/17/17 at 06:00 Insulin Glargine (Lantus) 5 unit BID SC Last administered on 08/19/17 09:09; Admin Dose 5 UNIT; Start 08/18/17 at 21:00 MAGO VAIL M.D. Aug 19, 2017 11:34
[2017-08-19 14:40] VITALS: BP 129/83; RESP 16
[2017-08-19] MEDS: SOD CHLORIDE 0.45% 1,000 ML IV SCH (15:02)
--- NOTE | 2017-08-19 15:12 | PN ---
Date/Time of Note Date/Time of Note DATE: 08/19/17 TIME: 15:11 Assessment/Plan VTE Prophylaxis VTE Prophylaxis Intervention: SCD's Lines/Catheters IV Catheter Type (from [facility]): Peripheral IV Urinary Cath still in place: No Assessment/Plan Chief Complaint/Hosp Course Pt denies any emesis denies nausea denies, tolerated diet well, denies abdominal pain. Case management to arrange home health for IV antibiotics. Assessment/Plan - Right 3rd finger distal osteomyelitis. Left index finger distal phalanx also suggests early osteomyelitis. Continue antibiotics per ID. Dr. Awan is following infection disease consultation. - Juan's esophagus and severe gastritis per EGD on 08/13. Continue Protonix. - Weight loss, abdominal pain and melenic stools. Dr Hartley is following in in gastroenterology consultation. - End-stage renal disease, status post kidney transplant in 2009. Continued on antirejection therapy with baseline creatinine is about 1.5. - Hypertension. Continue Norvasc and metoprolol. - Diabetes mellitus. Continue NovoLog per mild algorithm sliding scale. - Hepatitis C. Further recommendations based on clinical course. Plan of care discussed with Dr. Maier. Problems: Exam/Review of Systems Vital Signs Vitals Vital Signs Date Time Temp Pulse Resp B/P Pulse Ox O2 Delivery O2 Flow Rate FiO2 08/19/17 07:54 97.8 62 16 151/93 99 08/17/17 02:00 Room Air Intake and Output 08/18/17 08/18/17 08/19/17 15:00 23:00 07:00 Intake Total 270 ml 1570 ml 750 ml Output Total 1800 ml Balance 270 ml -230 ml 750 ml Exam Constitutional: alert, oriented Head: normocephalic Neck: supple Respiratory: normal air movement Cardiovascular: nl pulses Gastrointestinal: non-tender, soft Extremities: normal pulses Results Result Diagram: 08/19/17 0543 08/19/17 0543 Results 24 hrs Laboratory Tests Test 08/18/17 17:33 08/18/17 20:52 08/19/17 05:43 08/19/17 08:06 Bedside Glucose 114 171 89 White Blood Count 3.4 L Red Blood Count 4.72 Hemoglobin 15.8 Hematocrit 48.0 Mean Corpuscular Volume 101.7 H Mean Corpuscular Hemoglobin 33.5 H Mean Corpuscular Hemoglobin Concent 32.9 Red Cell Distribution Width 11.6 Platelet Count 155 Mean Platelet Volume 11.4 H Neutrophils % 57.5 Lymphocytes % 28.9 Monocytes % 10.6 Eosinophils % 1.2 Basophils % 1.5 Nucleated Red Blood Cells % 0.0 Neutrophils # 2.0 Lymphocytes # 1.0 Monocytes # 0.4 Eosinophils # 0.0 Basophils # 0.1 Nucleated Red Blood Cells # 0.0 Sodium Level 140 Potassium Level 5.0 Chloride Level 107 Carbon Dioxide Level 23 Anion Gap 15 Blood Urea Nitrogen 23 H Creatinine 1.45 H Glucose Level 81 Calcium Level 10.5 H Creatine Kinase 26 Test 08/19/17 12:11 Bedside Glucose 140 Medications Medications Current Medications Clonidine (Catapres) 0.1 mg Q4H PRN PO ELEVATED BLOOD PRESSURE Last administered on 08/12/17 06:11; Admin Dose 0.1 MG; Start 08/08/17 at 21:00 Metoprolol Tartrate (Lopressor) 50 mg BID PO Last administered on 08/19/17 09 :06; Admin Dose 50 MG; Start 08/08/17 at 21:26 Mycophenolate Sodium (Myfortic) 540 mg BID PO Last administered on 08/19/17 09:05; Admin Dose 540 MG; Start 08/08/17 at 22:00 Prednisone (Prednisone) 5 mg DAILY PO Last administered on 08/19/17 09:06; Admin Dose 5 MG; Start 08/09/17 at 09:00 Diagnostic Test (Pha) (Accu-Chek) 1 ea 02 XX Last administered on 08/16/17 01 :39; Admin Dose 1 EA; Start 08/09/17 at 02:00 Miscellaneous Information 1 ea NOTE XX ; Start 08/08/17 at 21:30 Glucose (Glutose) 15 gm Q15M PRN PO DECREASED GLUCOSE; Start 08/08/17 at 21:30 Glucose (Glutose) 22.5 gm Q15M PRN PO DECREASED GLUCOSE; Start 08/08/17 at 21: 30 Dextrose (D50w Syringe) 25 ml Q15M PRN IV DECREASED GLUCOSE; Start 08/08/17 at 21:30 Dextrose (D50w Syringe) 50 ml Q15M PRN IV DECREASED GLUCOSE; Start 08/08/17 at 21:30 Glucagon (Glucagen) 1 mg Q15M PRN IM DECREASED GLUCOSE; Start 08/08/17 at 21:30 Glucose (Glutose) 15 gm Q15M PRN BUCCAL DECREASED GLUCOSE; Start 08/08/17 at 21 :30 Acetaminophen/ Hydrocodone Bitart ([place] (7.5-325)) 1 tab Q4H PRN PO PAIN LEVEL 4-7 Last administered on 08/19/17 13:39; Admin Dose 1 TAB; Start at 09:30 Amlodipine Besylate 5 mg 5 mg DAILY PO Last administered on 08/19/17 09:06; Admin Dose 5 MG; Start 08/09/17 at 09:30 Piperacillin Sod/ Tazobactam Sod (Zosyn 2.25gm/ 50ml (Pmx)) 50 ml @ 100 mls/hr Q8 IVPB Last administered on 08/19/17 13:05; Admin Dose 100 MLS/HR; Start at 14:30 Enoxaparin Sodium (Lovenox) 30 mg DAILY SC ; Start 08/13/17 at 09:00 Morphine Sulfate (morphine) 2 mg Q4H PRN IV PAIN LEVEL 6-10 Last administered on 08/14/17 20:55; Admin Dose 2 MG; Start 08/13/17 at 11:30 Ondansetron HCl (Zofran Inj) 4 mg Q4H PRN IV NAUSEA AND/OR VOMITING Last administered on 08/13/17 16:07; Admin Dose 4 MG; Start 08/13/17 at 11:30 Hydralazine HCl (Apresoline) 10 mg Q6H PRN IV ELEVATED BLOOD PRESSURE Last administered on 08/16/17 01:33; Admin Dose 10 MG; Start 08/13/17 at 14:00 Metoclopramide HCl 10 mg 10 mg Q8 IV Last administered on 08/17/17 21:23; Admin Dose 10 MG; Start 08/13/17 at 22:00 Sodium Chloride 1,000 ml @ 60 mls/hr [id number] IV Last administered on 15:02; Admin Dose 60 MLS/HR; Start 08/14/17 at 18:00 Daptomycin/Sodium Chloride (Cubicin/NS) 100 ml @ 200 mls/hr Q48H IVPB Last administered on 08/18/17 23:50; Admin Dose 200 MLS/HR; Start 08/17/17 at 00: 00 Pantoprazole (Protonix Tab) 40 mg DAILY@06 PO Last administered on 08/18/17 05:11; Admin Dose 40 MG; Start 08/17/17 at 06:00 Insulin Glargine (Lantus) 5 unit BID SC Last administered on 08/19/17 09:09; Admin Dose 5 UNIT; Start 08/18/17 at 21:00 LETI RODRIGUEZ Aug 19, 2017 15:12
[2017-08-19] MEDS ORDERED: MEGESTROL 40 MG TAB PO SCH (17:00)
--- NOTE | 2017-08-19 18:04 | CONS ---
Date/Time of Note Date/Time of Note DATE: 08/19/17 TIME: 18:04 Assessment/Plan Assessment/Plan Additional Assessment/Plan IMPRESSION: 1. Osteomyelitis of the finger. 2. Diabetes mellitus. 3. Status post renal transplant, on immunosuppressive medication. 4. Hepatitis C virus infection in the past. 5. Epigastric pain for months. 6. Significant weight loss. The patient definitely looks cachectic. 7. History of melena which stopped 5 days ago. 8. Cachexia, patient is eating better and feeling good now 9. Juan esophagus 10. Distended gallbladder but normal biliary system Plan Continue PPI Reglan for nausea vomiting Consultation Date/Type/Reason Admit Date/Time Aug 08, 2017 at 16:53 Initial Consult Date 08/09/17 Type of Consultation: ID Referring Provider: LUPE KAPLAN MD 24 HR Interval Summary Constitutional: improved Exam/Review of Systems Vital Signs Vitals Vital Signs Date Time Temp Pulse Resp B/P Pulse Ox O2 Delivery O2 Flow Rate FiO2 08/19/17 14:40 98.8 71 16 129/83 99 08/17/17 02:00 Room Air Intake and Output 08/18/17 08/18/17 08/19/17 15:00 23:00 07:00 Intake Total 270 ml 1570 ml 750 ml Output Total 1800 ml Balance 270 ml -230 ml 750 ml Exam Constitutional: alert, oriented, well developed Psych: nl mood/affect, no complaints Head: atraumatic, normocephalic Eyes: EOMI, PERRL, nl conjunctiva, nl lids, nl sclera ENMT: nl external ears & nose, nl lips & teeth, nl nasal mucosa & septum Neck: non-tender, supple Respiratory: clear to auscultation, normal air movement Cardiovascular: nl pulses, regular rate and rhythm Gastrointestinal: nl liver, spleen, non-tender, soft Musculoskeletal: nl extremities to inspection, nl gait and stance Extremities: normal pulses 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: PULP MIXER II-XII intact, nl mental status, nl speech, nl strength Skin: nl turgor, No rash or lesions Lymph: nl lymph nodes Results Result Diagram: 08/19/17 0543 08/19/17 0543 Results 24 hrs Laboratory Tests Test 08/18/17 20:52 08/19/17 05:43 08/19/17 08:06 08/19/17 12:11 Bedside Glucose 171 89 140 White Blood Count 3.4 L Red Blood Count 4.72 Hemoglobin 15.8 Hematocrit 48.0 Mean Corpuscular Volume 101.7 H Mean Corpuscular Hemoglobin 33.5 H Mean Corpuscular Hemoglobin Concent 32.9 Red Cell Distribution Width 11.6 Platelet Count 155 Mean Platelet Volume 11.4 H Neutrophils % 57.5 Lymphocytes % 28.9 Monocytes % 10.6 Eosinophils % 1.2 Basophils % 1.5 Nucleated Red Blood Cells % 0.0 Neutrophils # 2.0 Lymphocytes # 1.0 Monocytes # 0.4 Eosinophils # 0.0 Basophils # 0.1 Nucleated Red Blood Cells # 0.0 Sodium Level 140 Potassium Level 5.0 Chloride Level 107 Carbon Dioxide Level 23 Anion Gap 15 Blood Urea Nitrogen 23 H Creatinine 1.45 H Glucose Level 81 Calcium Level 10.5 H Creatine Kinase 26 Test 08/19/17 17:16 Bedside Glucose 153 Medications Medications Current Medications Clonidine (Catapres) 0.1 mg Q4H PRN PO ELEVATED BLOOD PRESSURE Last administered on 08/12/17 06:11; Admin Dose 0.1 MG; Start 08/08/17 at 21:00 Metoprolol Tartrate (Lopressor) 50 mg BID PO Last administered on 08/19/17 09 :06; Admin Dose 50 MG; Start 08/08/17 at 21:26 Mycophenolate Sodium (Myfortic) 540 mg BID PO Last administered on 08/19/17 09:05; Admin Dose 540 MG; Start 08/08/17 at 22:00 Prednisone (Prednisone) 5 mg DAILY PO Last administered on 08/19/17 09:06; Admin Dose 5 MG; Start 08/09/17 at 09:00 Diagnostic Test (Pha) (Accu-Chek) 1 ea 02 XX Last administered on 08/16/17 01 :39; Admin Dose 1 EA; Start 08/09/17 at 02:00 Miscellaneous Information 1 ea NOTE XX ; Start 08/08/17 at 21:30 Glucose (Glutose) 15 gm Q15M PRN PO DECREASED GLUCOSE; Start 08/08/17 at 21:30 Glucose (Glutose) 22.5 gm Q15M PRN PO DECREASED GLUCOSE; Start 08/08/17 at 21: 30 Dextrose (D50w Syringe) 25 ml Q15M PRN IV DECREASED GLUCOSE; Start 08/08/17 at 21:30 Dextrose (D50w Syringe) 50 ml Q15M PRN IV DECREASED GLUCOSE; Start 08/08/17 at 21:30 Glucagon (Glucagen) 1 mg Q15M PRN IM DECREASED GLUCOSE; Start 08/08/17 at 21:30 Glucose (Glutose) 15 gm Q15M PRN BUCCAL DECREASED GLUCOSE; Start 08/08/17 at 21 :30 Acetaminophen/ Hydrocodone Bitart ([place] (7.5-325)) 1 tab Q4H PRN PO PAIN LEVEL 4-7 Last administered on 08/19/17 13:39; Admin Dose 1 TAB; Start at 09:30 Amlodipine Besylate 5 mg 5 mg DAILY PO Last administered on 08/19/17 09:06; Admin Dose 5 MG; Start 08/09/17 at 09:30 Piperacillin Sod/ Tazobactam Sod (Zosyn 2.25gm/ 50ml (Pmx)) 50 ml @ 100 mls/hr Q8 IVPB Last administered on 08/19/17 13:05; Admin Dose 100 MLS/HR; Start at 14:30 Enoxaparin Sodium (Lovenox) 30 mg DAILY SC ; Start 08/13/17 at 09:00 Morphine Sulfate (morphine) 2 mg Q4H PRN IV PAIN LEVEL 6-10 Last administered on 08/14/17 20:55; Admin Dose 2 MG; Start 08/13/17 at 11:30 Ondansetron HCl (Zofran Inj) 4 mg Q4H PRN IV NAUSEA AND/OR VOMITING Last administered on 08/13/17 16:07; Admin Dose 4 MG; Start 08/13/17 at 11:30 Hydralazine HCl (Apresoline) 10 mg Q6H PRN IV ELEVATED BLOOD PRESSURE Last administered on 08/16/17 01:33; Admin Dose 10 MG; Start 08/13/17 at 14:00 Metoclopramide HCl 10 mg 10 mg Q8 IV Last administered on 08/17/17 21:23; Admin Dose 10 MG; Start 08/13/17 at 22:00 Sodium Chloride 1,000 ml @ 60 mls/hr [id number] IV Last administered on 15:02; Admin Dose 60 MLS/HR; Start 08/14/17 at 18:00 Daptomycin/Sodium Chloride (Cubicin/NS) 100 ml @ 200 mls/hr Q48H IVPB Last administered on 08/18/17 23:50; Admin Dose 200 MLS/HR; Start 08/17/17 at 00: 00 Pantoprazole (Protonix Tab) 40 mg DAILY@06 PO Last administered on 08/18/17 05:11; Admin Dose 40 MG; Start 08/17/17 at 06:00 Insulin Glargine (Lantus) 5 unit BID SC Last administered on 08/19/17 09:09; Admin Dose 5 UNIT; Start 08/18/17 at 21:00 Megestrol Acetate (Megace Susp) 400 mg DAILY PO ; Start 08/20/17 at 09:00 UCHE ZEPEDA MD Aug 19, 2017 18:04
[2017-08-19 20:22] VITALS: BP 142/93; RESP 20
[2017-08-20] MEDS: ACCU-CHEK XX SCH (02:00)
[2017-08-20 03:03] VITALS: BP 135/84; RESP 18
[2017-08-20] MEDS: PANTOPRAZOLE (EC) 40 MG TAB PO SCH (05:10)
[2017-08-20] MEDS: PIPER-TAZO 2.25 GM (PMX) 50 ML IVPB SCH ×3 (05:10→21:13)
[2017-08-20] MEDS: METOCLOPRAMIDE 10 MG INJ IV SCH ×4 (05:10→21:13)
[2017-08-20] MEDS: SOD CHLORIDE 0.45% 1,000 ML IV SCH (05:10)
[2017-08-20 07:23] LABS: CALCIUM 10.5 mg/dl (8.4-10.2); CREATININE 1.38 mg/dl (0.61-1.24); POTASSIUM 4.6 mmol/L (3.5-5.1)
[2017-08-20 07:54] VITALS: BP 120/81; RESP 16
[2017-08-20] MEDS: INSULIN ASPART [NOVOLOG] 3 ML PEN SC SCH ×4 (08:15→21:00)
[2017-08-20] MEDS ORDERED: MEGESTROL PO SCH (09:00)
[2017-08-20] MEDS: ENOXAPARIN 30 MG/0.3 ML SYG SC SCH (09:00)
[2017-08-20] MEDS: MEGESTROL (40 MG/ML) 10ML CUP PO SCH (09:16)
[2017-08-20] MEDS: MYCOPHENOLATE (SR) 180 MG TAB PO SCH ×2 (09:16→21:02)
[2017-08-20] MEDS: AMLODIPINE 5 MG TAB PO SCH (09:16)
[2017-08-20] MEDS: METOPROLOL 50 MG TAB PO SCH ×2 (09:17→21:03)
[2017-08-20] MEDS: predniSONE 5 MG TAB PO SCH (09:17)
[2017-08-20] MEDS: INSULIN GLARGINE [LANtus] 3 ML PEN SC SCH ×2 (09:20→21:06)
--- NOTE | 2017-08-20 09:59 | CONS ---
Date/Time of Note Date/Time of Note DATE: 08/20/17 TIME: 09:59 Assessment/Plan Assessment/Plan Chief Complaint/Hosp Course assessment/impression - recurrent OM of R 3rd fingertip (XR showed periosteal reaction at the tip of R 3rd distal phalanx, suspicious for OM, MRI showed cellulitis of distal R 4th phalanx, without OM) and L 2nd fingertip (XR showed cortical irregularity at the tuft of L 2nd distal phalanx with overlying soft tissue defect, suggesting early OM, MRI showed OM at L 2nd distal phalanx with, cellulitis about L 2nd distal phalanx without drainable fluid collection.) - h/o OM of R 2nd finger s/p amputation at proximal phalanx neck, and h/o OM of L 3rd finger s/p amputation at middle and distal phalanges - DM - Juan's esophagus and gastritis s/p EGD on 08/12/2017. No H. pylori on Bx - h/o ESRD, was on HD - s/p renal transplant in 2009 (on tacrolimus 3mg bid, mycophenolate 540 mg bid , prednisone 5 mg daily), mild renal insufficiency at baseline - rheumatoid arthritis - chronic HCV infection - HTN - dyslipidemia - h/o polysubstance and IV drug use. - h/o pernicious anemia. - h/o hyperparathyroidism. recommendations - continue renally dosed pip/tazo and daptomycin (08/09/2017-). I recommend 6 weeks of IV antibiotics for his recurrent OM. Need to monitor CK while Pt's on daptomycin. CK was 23 on 08/20/2017. Will adjust the dose according to GFR - management, hand hygiene, gloves, and prevention of injuries and infection discussed with Pt during this admission Problems: Consultation Date/Type/Reason Admit Date/Time Aug 08, 2017 at 16:53 Initial Consult Date 08/09/17 Type of Consultation: ID Referring Provider: LUPE KAPLAN MD 24 HR Interval Summary Free Text/Dictation Pt was in the shower and I could not evaluate him today Exam/Review of Systems Vital Signs Vitals Vital Signs Date Time Temp Pulse Resp B/P Pulse Ox O2 Delivery O2 Flow Rate FiO2 08/20/17 07:54 97.9 74 16 120/81 98 08/17/17 02:00 Room Air Intake and Output 08/19/17 08/19/1708/20/17 15:00 23:00 07:00 Intake Total 810 ml 1490 ml 500 ml Output Total 1450 ml 1350 ml 1050 ml Balance -640 ml 140 ml -550 ml Results Result Diagram: 08/19/17 0543 08/20/17 0536 Results 24 hrs Laboratory Tests Test 08/19/17 12:11 08/19/17 17:16 08/19/17 21:20 08/20/17 05:36 Bedside Glucose 140 153 152 Sodium Level 139 Potassium Level 4.6 Chloride Level 106 Carbon Dioxide Level 20 L Anion Gap 18 H Blood Urea Nitrogen 26 H Creatinine 1.38 H Glucose Level 97 Calcium Level 10.5 H Creatine Kinase 23 Test 08/20/17 08:06 Bedside Glucose 103 Medications Medications Current Medications Clonidine (Catapres) 0.1 mg Q4H PRN PO ELEVATED BLOOD PRESSURE Last administered on 08/12/17 06:11; Admin Dose 0.1 MG; Start 08/08/17 at 21:00 Metoprolol Tartrate (Lopressor) 50 mg BID PO Last administered on 08/20/17 09 :17; Admin Dose 50 MG; Start 08/08/17 at 21:26 Mycophenolate Sodium (Myfortic) 540 mg BID PO Last administered on 08/20/17 09:16; Admin Dose 540 MG; Start 08/08/17 at 22:00 Prednisone (Prednisone) 5 mg DAILY PO Last administered on 08/20/17 09:17; Admin Dose 5 MG; Start 08/09/17 at 09:00 Diagnostic Test (Pha) (Accu-Chek) 1 ea 02 XX Last administered on 08/16/17 01 :39; Admin Dose 1 EA; Start 08/09/17 at 02:00 Miscellaneous Information 1 ea NOTE XX ; Start 08/08/17 at 21:30 Glucose (Glutose) 15 gm Q15M PRN PO DECREASED GLUCOSE; Start 08/08/17 at 21:30 Glucose (Glutose) 22.5 gm Q15M PRN PO DECREASED GLUCOSE; Start 08/08/17 at 21: 30 Dextrose (D50w Syringe) 25 ml Q15M PRN IV DECREASED GLUCOSE; Start 08/08/17 at 21:30 Dextrose (D50w Syringe) 50 ml Q15M PRN IV DECREASED GLUCOSE; Start 08/08/17 at 21:30 Glucagon (Glucagen) 1 mg Q15M PRN IM DECREASED GLUCOSE; Start 08/08/17 at 21:30 Glucose (Glutose) 15 gm Q15M PRN BUCCAL DECREASED GLUCOSE; Start 08/08/17 at 21 :30 Acetaminophen/ Hydrocodone Bitart ([place] (7.5-325)) 1 tab Q4H PRN PO PAIN LEVEL 4-7 Last administered on 08/19/17 13:39; Admin Dose 1 TAB; Start at 09:30 Amlodipine Besylate 5 mg 5 mg DAILY PO Last administered on 08/20/17 09:16; Admin Dose 5 MG; Start 08/09/17 at 09:30 Piperacillin Sod/ Tazobactam Sod (Zosyn 2.25gm/ 50ml (Pmx)) 50 ml @ 100 mls/hr Q8 IVPB Last administered on 08/20/17 05:10; Admin Dose 100 MLS/HR; Start at 14:30 Enoxaparin Sodium (Lovenox) 30 mg DAILY SC ; Start 08/13/17 at 09:00 Morphine Sulfate (morphine) 2 mg Q4H PRN IV PAIN LEVEL 6-10 Last administered on 08/14/17 20:55; Admin Dose 2 MG; Start 08/13/17 at 11:30 Ondansetron HCl (Zofran Inj) 4 mg Q4H PRN IV NAUSEA AND/OR VOMITING Last administered on 08/13/17 16:07; Admin Dose 4 MG; Start 08/13/17 at 11:30 Hydralazine HCl (Apresoline) 10 mg Q6H PRN IV ELEVATED BLOOD PRESSURE Last administered on 08/16/17 01:33; Admin Dose 10 MG; Start 08/13/17 at 14:00 Metoclopramide HCl 10 mg 10 mg Q8 IV Last administered on 08/20/17 05:10; Admin Dose 10 MG; Start 08/13/17 at 22:00 Sodium Chloride (1/2 NS) 1,000 ml @ 60 mls/hr [id number] IV Last administered on 08/20/17 05:10; Admin Dose 60 MLS/HR; Start 08/14/17 at 18:00 Pantoprazole (Protonix Tab) 40 mg DAILY@06 PO Last administered on 08/20/17 05:10; Admin Dose 40 MG; Start 08/17/17 at 06:00 Insulin Glargine (Lantus) 5 unit BID SC Last administered on 08/20/17 09:20; Admin Dose 5 UNIT; Start 08/18/17 at 21:00 Megestrol Acetate 400 mg 400 mg DAILY PO Last administered on 08/20/17 09:16 ; Admin Dose 400 MG; Start 08/20/17 at 09:00 Daptomycin/Sodium Chloride (Cubicin/NS) 100 ml @ 200 mls/hr Q24H IVPB ; Start 08/20/17 at 16:00 MAGO VAIL M.D. Aug 20, 2017 09:59
[2017-08-20] MEDS: morphine 2 MG INJ IV PRN (10:04)
--- NOTE | 2017-08-20 15:13 | CONS ---
Date/Time of Note Date/Time of Note DATE: 08/20/17 TIME: 15:11 Assessment/Plan Assessment/Plan Additional Assessment/Plan 1. Acute Kidney inury on CKD due to Prerenal azotemia and Infection 2. Left finger infection possibel recurrent OM of left finger 3.h/o OM of R 2nd finger s/p amputation at proximal phalanx neck, and h/o OM of L 3rd finger s/p amputation at middle and distal phalanges 4. 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 h/o ESRD, was on HD - s/p renal transplant in 2009 (on tacrolimus 3mg bid, mycophenolate 540 mg bid, prednisone 5 mg daily), mild renal insufficiency at baseline 6. rheumatoid arthritis 7. chronic HCV infection 8. HTN 9. dyslipidemia 10. h/o polysubstance and IV drug use. 11. h/o pernicious anemia. 12. h/o erosive esophagitis and gastritis 13. Hyperkalemia- resolved after prograf stopped Plan: Cr improved to 1.38 - prograf was stopped last week due to rising cr and Hyperkalemia- we will continue to hold off prograf now and plan is to start it from Tomorrow. d/c IV fluid NS IV abx as per ID pt has previously had a full CKD work up - no need to repeat it Continue current Immunosuppression for kidney transplant,( Tacrolimus stoppday on - continue mycophenolate 540 mg bid, prednisone 5 mg daily) pt has no signs and symptoms of tracrolimus toxicity, so we will monitor it. Consultation Date/Type/Reason Admit Date/Time Aug 08, 2017 at 16:53 Initial Consult Date 08/09/17 Type of Consultation: NEPHROLOGY Referring Provider: LUPE KAPLAN MD 24 HR Interval Summary Free Text/Dictation Cr 1.38 but HCo3 20, p tstable, no complaitns from renal point of view Exam/Review of Systems Vital Signs Vitals Vital Signs Date Time Temp Pulse Resp B/P Pulse Ox O2 Delivery O2 Flow Rate FiO2 08/20/17 07:54 97.9 74 16 120/81 98 08/17/17 02:00 Room Air Intake and Output 08/19/17 08/19/17 08/20/17 15:00 23:00 07:00 Intake Total 810 ml 1490 ml 550 ml Output Total 1450 ml 1350 ml 1050 ml Balance -640 ml 140 ml -500 ml Exam Constitutional: alert Psych: no complaints Head: normocephalic ENMT: nl external ears & nose Neck: non-tender, supple Respiratory: clear to auscultation, diminished breath sounds, normal air movement Cardiovascular: nl pulses, regular rate and rhythm Gastrointestinal: non-tender, soft Musculoskeletal: nl extremities to inspection, other ((left finger swelling )) 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: CHEMISTRY ASSOCIATE II-XII intact, nl mental status, nl speech Results Result Diagram: 08/19/17 0543 08/20/17 0536 Results 24 hrs Laboratory Tests Test 08/19/17 17:16 08/19/17 21:20 08/20/17 05:36 08/20/17 08:06 Bedside Glucose 153 152 103 Sodium Level 139 Potassium Level 4.6 Chloride Level 106 Carbon Dioxide Level 20 L Anion Gap 18 H Blood Urea Nitrogen 26 H Creatinine 1.38 H Glucose Level 97 Calcium Level 10.5 H Creatine Kinase 23 Test 08/20/17 12:35 Bedside Glucose 138 Medications Medications Current Medications Clonidine (Catapres) 0.1 mg Q4H PRN PO ELEVATED BLOOD PRESSURE Last administered on 08/12/17 06:11; Admin Dose 0.1 MG; Start 08/08/17 at 21:00 Metoprolol Tartrate (Lopressor) 50 mg BID PO Last administered on 08/20/17 09 :17; Admin Dose 50 MG; Start 08/08/17 at 21:26 Mycophenolate Sodium (Myfortic) 540 mg BID PO Last administered on 08/20/17 09:16; Admin Dose 540 MG; Start 08/08/17 at 22:00 Prednisone (Prednisone) 5 mg DAILY PO Last administered on 08/20/17 09:17; Admin Dose 5 MG; Start 08/09/17 at 09:00 Diagnostic Test (Pha) (Accu-Chek) 1 ea 02 XX Last administered on 08/16/17 01 :39; Admin Dose 1 EA; Start 08/09/17 at 02:00 Miscellaneous Information 1 ea NOTE XX ; Start 08/08/17 at 21:30 Glucose (Glutose) 15 gm Q15M PRN PO DECREASED GLUCOSE; Start 08/08/17 at 21:30 Glucose (Glutose) 22.5 gm Q15M PRN PO DECREASED GLUCOSE; Start 08/08/17 at 21: 30 Dextrose (D50w Syringe) 25 ml Q15M PRN IV DECREASED GLUCOSE; Start 08/08/17 at 21:30 Dextrose (D50w Syringe) 50 ml Q15M PRN IV DECREASED GLUCOSE; Start 08/08/17 at 21:30 Glucagon (Glucagen) 1 mg Q15M PRN IM DECREASED GLUCOSE; Start 08/08/17 at 21:30 Glucose (Glutose) 15 gm Q15M PRN BUCCAL DECREASED GLUCOSE; Start 08/08/17 at 21 :30 Acetaminophen/ Hydrocodone Bitart ([place] (7.5-325)) 1 tab Q4H PRN PO PAIN LEVEL 4-7 Last administered on 08/19/17 13:39; Admin Dose 1 TAB; Start at 09:30 Amlodipine Besylate 5 mg 5 mg DAILY PO Last administered on 08/20/17 09:16; Admin Dose 5 MG; Start 08/09/17 at 09:30 Piperacillin Sod/ Tazobactam Sod (Zosyn 2.25gm/ 50ml (Pmx)) 50 ml @ 100 mls/hr Q8 IVPB Last administered on 08/20/17 13:48; Admin Dose 100 MLS/HR; Start at 14:30 Enoxaparin Sodium (Lovenox) 30 mg DAILY SC ; Start 08/13/17 at 09:00 Morphine Sulfate (morphine) 2 mg Q4H PRN IV PAIN LEVEL 6-10 Last administered on 08/20/17 10:04; Admin Dose 2 MG; Start 08/13/17 at 11:30 Ondansetron HCl (Zofran Inj) 4 mg Q4H PRN IV NAUSEA AND/OR VOMITING Last administered on 08/13/17 16:07; Admin Dose 4 MG; Start 08/13/17 at 11:30 Hydralazine HCl (Apresoline) 10 mg Q6H PRN IV ELEVATED BLOOD PRESSURE Last administered on 08/16/17 01:33; Admin Dose 10 MG; Start 08/13/17 at 14:00 Metoclopramide HCl 10 mg 10 mg Q8 IV Last administered on 08/20/17 05:10; Admin Dose 10 MG; Start 08/13/17 at 22:00 Sodium Chloride (1/2 NS) 1,000 ml @ 60 mls/hr [id number] IV Last administered on 08/20/17 05:10; Admin Dose 60 MLS/HR; Start 08/14/17 at 18:00 Pantoprazole (Protonix Tab) 40 mg DAILY@06 PO Last administered on 08/20/17 05:10; Admin Dose 40 MG; Start 08/17/17 at 06:00 Insulin Glargine (Lantus) 5 unit BID SC Last administered on 08/20/17 09:20; Admin Dose 5 UNIT; Start 08/18/17 at 21:00 Megestrol Acetate 400 mg 400 mg DAILY PO Last administered on 08/20/17 09:16 ; Admin Dose 400 MG; Start 08/20/17 at 09:00 Daptomycin/Sodium Chloride (Cubicin/NS) 100 ml @ 200 mls/hr Q24H IVPB ; Start 08/20/17 at 16:00 SHAKA SIMPSON MD Aug 20, 2017 15:13
[2017-08-20] MEDS: DAPTOMYCIN 250 MG in SOD CHLORIDE 0.9% 100 ML IVPB SCH (16:35)
--- NOTE | 2017-08-20 17:16 | PN ---
Date/Time of Note Date/Time of Note DATE: 08/20/17 TIME: 17:11 Assessment/Plan VTE Prophylaxis VTE Prophylaxis Intervention: SCD's Lines/Catheters IV Catheter Type (from [facility] Peripheral IV Urinary Cath still in place: No Assessment/Plan Chief Complaint/Hosp Course Pt denies any emesis denies nausea denies, tolerated diet well, denies abdominal pain. Case management to arrange home health for IV antibiotics. PICC line ordered. Assessment/Plan - Right 3rd finger distal osteomyelitis. Left index finger distal phalanx also suggests early osteomyelitis. Continue antibiotics per ID. Dr. Awan is following infection disease consultation. - Juan's esophagus and severe gastritis per EGD on 08/13. Continue Protonix. - Weight loss, abdominal pain and melenic stools. Dr Hartley is following in in gastroenterology consultation. - End-stage renal disease, status post kidney transplant in 2009. Continued on antirejection therapy with baseline creatinine is about 1.5. - Hypertension. Continue Norvasc and metoprolol. - Diabetes mellitus. Continue NovoLog per mild algorithm sliding scale. - Hepatitis C. Further recommendations based on clinical course. Plan of care discussed with Dr. Maier. Problems: Exam/Review of Systems Vital Signs Vitals Vital Signs Date Time Temp Pulse Resp B/P Pulse Ox O2 Delivery O2 Flow Rate FiO2 08/20/17 07:54 97.9 74 16 120/81 98 08/17/17 02:00 Room Air Intake and Output 08/19/17 08/19/17 08/20/17 15:00 23:00 07:00 Intake Total 810 ml 1490 ml 550 ml Output Total 1450 ml 1350 ml 1050 ml Balance -640 ml 140 ml -500 ml Exam Constitutional: alert, oriented Head: normocephalic Neck: supple Respiratory: normal air movement Cardiovascular: nl pulses Gastrointestinal: non-tender, soft Extremities: normal pulses Results Result Diagram: 08/19/17 0543 08/20/17 0536 Results 24 hrs Laboratory Tests Test 08/19/17 17:16 08/19/17 21:20 08/20/17 05:36 08/20/17 08:06 Bedside Glucose 153 152 103 Sodium Level 139 Potassium Level 4.6 Chloride Level 106 Carbon Dioxide Level 20 L Anion Gap 18 H Blood Urea Nitrogen 26 H Creatinine 1.38 H Glucose Level 97 Calcium Level 10.5 H Creatine Kinase 23 Test 08/20/17 12:35 Bedside Glucose 138 Medications Medications Current Medications Clonidine (Catapres) 0.1 mg Q4H PRN PO ELEVATED BLOOD PRESSURE Last administered on 08/12/17 06:11; Admin Dose 0.1 MG; Start 08/08/17 at 21:00 Metoprolol Tartrate (Lopressor) 50 mg BID PO Last administered on 08/20/17 09 :17; Admin Dose 50 MG; Start 08/08/17 at 21:26 Mycophenolate Sodium (Myfortic) 540 mg BID PO Last administered on 08/20/17 09:16; Admin Dose 540 MG; Start 08/08/17 at 22:00 Prednisone (Prednisone) 5 mg DAILY PO Last administered on 08/20/17 09:17; Admin Dose 5 MG; Start 08/09/17 at 09:00 Diagnostic Test (Pha) (Accu-Chek) 1 ea 02 XX Last administered on 08/16/17 01 :39; Admin Dose 1 EA; Start 08/09/17 at 02:00 Miscellaneous Information 1 ea NOTE XX ; Start 08/08/17 at 21:30 Glucose (Glutose) 15 gm Q15M PRN PO DECREASED GLUCOSE; Start 08/08/17 at 21:30 Glucose (Glutose) 22.5 gm Q15M PRN PO DECREASED GLUCOSE; Start 08/08/17 at 21: 30 Dextrose (D50w Syringe) 25 ml Q15M PRN IV DECREASED GLUCOSE; Start 08/08/17 at 21:30 Dextrose (D50w Syringe) 50 ml Q15M PRN IV DECREASED GLUCOSE; Start 08/08/17 at 21:30 Glucagon (Glucagen) 1 mg Q15M PRN IM DECREASED GLUCOSE; Start 08/08/17 at 21:30 Glucose (Glutose) 15 gm Q15M PRN BUCCAL DECREASED GLUCOSE; Start 08/08/17 at 21 :30 Acetaminophen/ Hydrocodone Bitart ([place] (7.5-325)) 1 tab Q4H PRN PO PAIN LEVEL 4-7 Last administered on 08/19/17 13:39; Admin Dose 1 TAB; Start at 09:30 Amlodipine Besylate 5 mg 5 mg DAILY PO Last administered on 08/20/17 09:16; Admin Dose 5 MG; Start 08/09/17 at 09:30 Piperacillin Sod/ Tazobactam Sod (Zosyn 2.25gm/ 50ml (Pmx)) 50 ml @ 100 mls/hr Q8 IVPB Last administered on 08/20/17 13:48; Admin Dose 100 MLS/HR; Start at 14:30 Enoxaparin Sodium (Lovenox) 30 mg DAILY SC ; Start 08/13/17 at 09:00 Morphine Sulfate (morphine) 2 mg Q4H PRN IV PAIN LEVEL 6-10 Last administered on 08/20/17 10:04; Admin Dose 2 MG; Start 08/13/17 at 11:30 Ondansetron HCl (Zofran Inj) 4 mg Q4H PRN IV NAUSEA AND/OR VOMITING Last administered on 08/13/17 16:07; Admin Dose 4 MG; Start 08/13/17 at 11:30 Hydralazine HCl (Apresoline) 10 mg Q6H PRN IV ELEVATED BLOOD PRESSURE Last administered on 08/16/17 01:33; Admin Dose 10 MG; Start 08/13/17 at 14:00 Metoclopramide HCl (Reglan) 10 mg Q8 IV Last administered on 08/20/17 05:10; Admin Dose 10 MG; Start 08/13/17 at 22:00 Pantoprazole (Protonix Tab) 40 mg DAILY@06 PO Last administered on 08/20/17 05:10; Admin Dose 40 MG; Start 08/17/17 at 06:00 Insulin Glargine (Lantus) 5 unit BID SC Last administered on 08/20/17 09:20; Admin Dose 5 UNIT; Start 08/18/17 at 21:00 Megestrol Acetate 400 mg 400 mg DAILY PO Last administered on 08/20/17 09:16 ; Admin Dose 400 MG; Start 08/20/17 at 09:00 Daptomycin/Sodium Chloride (Cubicin/NS) 100 ml @ 200 mls/hr Q24H IVPB Last administered on 08/20/17 16:35; Admin Dose 200 MLS/HR; Start 08/20/17 at 16: 00 Tacrolimus (Prograf) 1 mg Q12 PO ; Start 08/21/17 at 09:00 LETI RODRIGUEZ Aug 20, 2017 17:16
[2017-08-20] MEDS ORDERED: LORAZEPAM 2 MG INJ IV ONE (17:30)
[2017-08-20] MEDS ORDERED: LIDOCAINE 1% (MPF) 5 ML VIAL SC ONE (18:00)
[2017-08-20 19:55] VITALS: BP 134/72; RESP 20
[2017-08-20] MEDS: HYDROCODONE/APAP (7.5/325) TAB PO PRN (21:13)
[2017-08-21 02:00] VITALS: BP 106/71; RESP 20
[2017-08-21] MEDS: ACCU-CHEK XX SCH (02:00)
[2017-08-21] MEDS: METOCLOPRAMIDE 10 MG INJ IV SCH ×3 (05:38→22:16)
[2017-08-21] MEDS: PIPER-TAZO 2.25 GM (PMX) 50 ML IVPB SCH ×3 (05:38→22:16)
[2017-08-21] MEDS: PANTOPRAZOLE (EC) 40 MG TAB PO SCH (05:39)
[2017-08-21 06:29] LABS: BASOPHILS % 0.6 % (0.0-2.0); EOSINOPHILS % 0.2 % (0.0-7.0); HEMATOCRIT 45.6 % (42.0-52.0); HEMOGLOBIN 14.6 g/dl (14.0-18.0); LYMPHOCYTES # 0.9 10^3/ul (0.8-2.9); LYMPHOCYTES % 17.4 % (15.0-51.0); MEAN CORPUSCULAR HEMOGLOBIN 32.9 pg (29.0-33.0); MEAN CORPUSCULAR VOLUME 102.7 fl (82.0-101.0); MEAN PLATELET VOLUME 11.5 fl (7.4-10.4); MONOCYTE # 0.6 10^3/ul (0.3-0.9); MONOCYTES % 12.5 % (0.0-11.0); NEUTROPHIL # 3.5 10^3/ul (1.6-7.5); NEUTROPHILS % 68.9 % (39.0-77.0); PLATELET COUNT 143 10^3/UL (140-415); RED BLOOD COUNT 4.44 10^6/ul (4.70-6.10); RED CELL DISTRIBUTION WIDTH 11.9 % (11.5-14.5); WHITE BLOOD COUNT 5.1 10^3/ul (4.8-10.8)
[2017-08-21 07:09] LABS: CALCIUM 10.3 mg/dl (8.4-10.2); CREATININE 1.69 mg/dl (0.61-1.24); POTASSIUM 4.8 mmol/L (3.5-5.1)
[2017-08-21 07:26] VITALS: BP 115/74; RESP 20
[2017-08-21] MEDS: INSULIN ASPART [NOVOLOG] 3 ML PEN SC SCH ×4 (08:15→21:12)
[2017-08-21] MEDS ORDERED: TACROLIMUS 1 MG CAP PO SCH (09:00)
--- NOTE | 2017-08-21 09:24 | CONS ---
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 (XR showed periosteal reaction at the tip of R 3rd distal phalanx, suspicious for OM, MRI showed cellulitis of distal R 4th phalanx, without OM) and L 2nd fingertip (XR showed cortical irregularity at the tuft of L 2nd distal phalanx with overlying soft tissue defect, suggesting early OM, MRI showed OM at L 2nd distal phalanx with, cellulitis about L 2nd distal phalanx without drainable fluid collection.) - h/o OM of R 2nd finger s/p amputation at proximal phalanx neck, and h/o OM of L 3rd finger s/p amputation at middle and distal phalanges - DM - Juan's esophagus and gastritis s/p EGD on 08/12/2017. No H. pylori on Bx - h/o ESRD, was on HD - s/p renal transplant in 2009 (on tacrolimus 3mg bid, mycophenolate 540 mg bid , prednisone 5 mg daily), mild renal insufficiency at baseline - rheumatoid arthritis - chronic HCV infection - HTN - dyslipidemia - h/o polysubstance and IV drug use. - h/o pernicious anemia. - h/o hyperparathyroidism. recommendations - continue renally dosed pip/tazo and daptomycin (08/09/2017-). I recommend 6 weeks of IV antibiotics for his recurrent OM. Need to monitor CK while Pt's on daptomycin. CK was 23 on 08/20/2017. Will adjust the dose according to GFR 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 Problems: Consultation Date/Type/Reason Admit Date/Time Aug 08, 2017 at 16:53 Initial Consult Date 08/09/17 Type of Consultation: ID Referring Provider: LUPE KAPLAN MD 24 HR Interval Summary Constitutional: no complaints Detailed Summary Eyes: no complaints ENT: no complaints Respiratory: no complaints Cardiovascular: no complaints Gastrointestinal: no complaints Genitourinary: no complaints Musculoskeletal: other (reports FROM of L 2nd finger) Skin: laceration (old lacerations on finger tips, unchanged), no complaints Neurologic: no complaints Exam/Review of Systems Vital Signs Vitals Vital Signs Date Time Temp Pulse Resp B/P Pulse Ox O2 Delivery O2 Flow Rate FiO2 08/21/17 07:26 98.0 59 20 115/74 99 Intake and Output 08/20/17 08/20/17 08/21/17 15:00 23:00 07:00 Intake Total 50 ml 1660 ml 580 ml Output Total 950 ml 1200 ml Balance 50 ml 710 ml -620 ml Exam Constitutional: alert, oriented, well developed Psych: nl mood/affect, no complaints Head: atraumatic, normocephalic Eyes: nl conjunctiva, nl lids, nl sclera ENMT: nl external ears & nose Neck: supple Musculoskeletal: nl extremities to inspection, other (L 2nd finger has FROM, non-TTP), No swelling Extremities: No edema 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: WOODS BOSS II-XII intact, nl mental status, nl speech, nl strength Skin: nl turgor Results Result Diagram: 08/21/17 0539 08/21/17 0539 Results 24 hrs Laboratory Tests Test 08/20/17 12:35 08/20/17 17:25 08/20/17 21:01 08/21/17 05:39 Bedside Glucose 138 234 H 126 White Blood Count 5.1 # Red Blood Count 4.44 L Hemoglobin 14.6 Hematocrit 45.6 Mean Corpuscular Volume 102.7 H Mean Corpuscular Hemoglobin 32.9 Mean Corpuscular Hemoglobin Concent 32.0 Red Cell Distribution Width 11.9 Platelet Count 143 Mean Platelet Volume 11.5 H Neutrophils % 68.9 Lymphocytes % 17.4 Monocytes % 12.5 H Eosinophils % 0.2 Basophils % 0.6 Nucleated Red Blood Cells % 0.0 Neutrophils # 3.5 Lymphocytes # 0.9 Monocytes # 0.6 Eosinophils # 0.0 Basophils # 0.0 Nucleated Red Blood Cells # 0.0 Sodium Level 138 Potassium Level 4.8 Chloride Level 107 Carbon Dioxide Level 19 L Anion Gap 17 H Blood Urea Nitrogen 42 #H Creatinine 1.69 H Glucose Level 112 Calcium Level 10.3 H Test 08/21/17 08:12 Bedside Glucose 110 Medications Medications Current Medications Clonidine (Catapres) 0.1 mg Q4H PRN PO ELEVATED BLOOD PRESSURE Last administered on 08/12/17t 06:11; Admin Dose 0.1 MG; Start 08/08/17 at 21:00 Metoprolol Tartrate (Lopressor) 50 mg BID PO Last administered on 08/20/17 21 :03; Admin Dose 50 MG; Start 08/08/17 at 21:26 Mycophenolate Sodium (Myfortic) 540 mg BID PO Last administered on 08/20/17 21:02; Admin Dose 540 MG; Start 08/08/17 at 22:00 Prednisone (Prednisone) 5 mg DAILY PO Last administered on 08/20/17 09:17; Admin Dose 5 MG; Start 08/09/17 at 09:00 Diagnostic Test (Pha) (Accu-Chek) 1 ea 02 XX Last administered on 08/16/17 01 :39; Admin Dose 1 EA; Start 08/09/17 at 02:00 Miscellaneous Information 1 ea NOTE XX ; Start 08/08/17 at 21:30 Glucose (Glutose) 15 gm Q15M PRN PO DECREASED GLUCOSE; Start 08/08/17 at 21:30 Glucose (Glutose) 22.5 gm Q15M PRN PO DECREASED GLUCOSE; Start 08/08/17 at 21: 30 Dextrose (D50w Syringe) 25 ml Q15M PRN IV DECREASED GLUCOSE; Start 08/08/17 at 21:30 Dextrose (D50w Syringe) 50 ml Q15M PRN IV DECREASED GLUCOSE; Start 08/08/17 at 21:30 Glucagon (Glucagen) 1 mg Q15M PRN IM DECREASED GLUCOSE; Start 08/08/17 at 21:30 Glucose (Glutose) 15 gm Q15M PRN BUCCAL DECREASED GLUCOSE; Start 08/08/17 at 21 :30 Acetaminophen/ Hydrocodone Bitart ([place] (7.5-325)) 1 tab Q4H PRN PO PAIN LEVEL 4-7 Last administered on 08/20/17 21:13; Admin Dose 1 TAB; Start at 09:30 Amlodipine Besylate 5 mg 5 mg DAILY PO Last administered on 08/20/17 09:16; Admin Dose 5 MG; Start 08/09/17 at 09:30 Piperacillin Sod/ Tazobactam Sod (Zosyn 2.25gm/ 50ml (Pmx)) 50 ml @ 100 mls/hr Q8 IVPB Last administered on 08/21/17 05:38; Admin Dose 100 MLS/HR; Start at 14:30 Enoxaparin Sodium (Lovenox) 30 mg DAILY SC ; Start 08/13/17 at 09:00 Morphine Sulfate (morphine) 2 mg Q4H PRN IV PAIN LEVEL 6-10 Last administered on 08/20/17 10:04; Admin Dose 2 MG; Start 08/13/17 at 11:30 Ondansetron HCl (Zofran Inj) 4 mg Q4H PRN IV NAUSEA AND/OR VOMITING Last administered on 08/13/17 16:07; Admin Dose 4 MG; Start 08/13/17 at 11:30 Hydralazine HCl (Apresoline) 10 mg Q6H PRN IV ELEVATED BLOOD PRESSURE Last administered on 08/16/17 01:33; Admin Dose 10 MG; Start 08/13/17 at 14:00 Metoclopramide HCl (Reglan) 10 mg Q8 IV Last administered on 08/21/17 05:38; Admin Dose 10 MG; Start 08/13/17 at 22:00 Pantoprazole (Protonix Tab) 40 mg DAILY@06 PO Last administered on 08/21/17 05:39; Admin Dose 40 MG; Start 08/17/17 at 06:00 Insulin Glargine (Lantus) 5 unit BID SC Last administered on 08/20/17 21:06; Admin Dose 5 UNIT; Start 08/18/17 at 21:00 Megestrol Acetate 400 mg 400 mg DAILY PO Last administered on 08/20/17 09:16 ; Admin Dose 400 MG; Start 08/20/17 at 09:00 Daptomycin/Sodium Chloride (Cubicin/NS) 100 ml @ 200 mls/hr Q24H IVPB Last administered on 08/20/17 16:35; Admin Dose 200 MLS/HR; Start 08/20/17 at 16: 00 Tacrolimus (Prograf) 1 mg Q12 PO ; Start 08/21/17 at 09:00 MAGO VAIL M.D. Aug 21, 2017 09:24
[2017-08-21] MEDS: MEGESTROL (40 MG/ML) 10ML CUP PO SCH (09:41)
[2017-08-21] MEDS: predniSONE 5 MG TAB PO SCH (09:42)
[2017-08-21] MEDS: AMLODIPINE 5 MG TAB PO SCH (09:43)
[2017-08-21] MEDS: MYCOPHENOLATE (SR) 180 MG TAB PO SCH ×2 (09:43→21:07)
[2017-08-21] MEDS: METOPROLOL 50 MG TAB PO SCH ×2 (09:44→21:00)
[2017-08-21] MEDS: ENOXAPARIN 30 MG/0.3 ML SYG SC SCH (09:47)
[2017-08-21] MEDS: morphine 2 MG INJ IV PRN (09:59)
[2017-08-21] MEDS: INSULIN GLARGINE [LANtus] 3 ML PEN SC SCH ×2 (10:06→21:11)
--- NOTE | 2017-08-21 10:09 | CONS ---
Date/Time of Note Date/Time of Note DATE: 08/21/17 TIME: 10:08 Assessment/Plan Assessment/Plan Additional Assessment/Plan Additional Assessment/Plan IMPRESSION: 1. Osteomyelitis of the finger. 2. Diabetes mellitus. 3. Status post renal transplant, on immunosuppressive medication. 4. Hepatitis C virus infection in the past. 5. Epigastric pain for months. 6. Significant weight loss. The patient definitely looks cachectic. 7. History of melena which stopped 5 days ago. 8. Cachexia, patient is eating better and feeling good now 9. Juan esophagus 10. Distended gallbladder but normal biliary system Plan Continue PPI Reglan for nausea vomiting We will record patient's weight on a regular basis Consultation Date/Type/Reason Admit Date/Time Aug 08, 2017 at 16:53 Initial Consult Date 08/09/17 Type of Consultation: ID Referring Provider: LUPE KAPLAN MD 24 HR Interval Summary Free Text/Dictation Patient is eating much better No GI complaints Constitutional: improved Exam/Review of Systems Vital Signs Vitals Vital Signs Date Time Temp Pulse Resp B/P Pulse Ox O2 Delivery O2 Flow Rate FiO2 08/21/17 07:26 98.0 59 20 115/74 99 Intake and Output 08/20/17 08/20/17 08/21/17 15:00 23:00 07:00 Intake Total 50 ml 1660 ml 580 ml Output Total 950 ml 1200 ml Balance 50 ml 710 ml -620 ml Exam Constitutional: alert, oriented, well developed Psych: nl mood/affect, no complaints Head: atraumatic, normocephalic Eyes: EOMI, PERRL, nl conjunctiva, nl lids, nl sclera ENMT: nl external ears & nose, nl lips & teeth, nl nasal mucosa & septum Neck: non-tender, supple Respiratory: clear to auscultation, normal air movement Cardiovascular: nl pulses, regular rate and rhythm Gastrointestinal: nl liver, spleen, non-tender, soft Musculoskeletal: nl extremities to inspection, nl gait and stance Extremities: normal pulses 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: RESTAURANT CREW II-XII intact, nl mental status, nl speech, nl strength Skin: nl turgor, No rash or lesions Lymph: nl lymph nodes Results Result Diagram: 08/21/17 0539 08/21/17 0539 Results 24 hrs Laboratory Tests Test 08/20/17 12:35 08/20/17 17:25 08/20/17 21:01 08/21/17 05:39 Bedside Glucose 138 234 H 126 White Blood Count 5.1 # Red Blood Count 4.44 L Hemoglobin 14.6 Hematocrit 45.6 Mean Corpuscular Volume 102.7 H Mean Corpuscular Hemoglobin 32.9 Mean Corpuscular Hemoglobin Concent 32.0 Red Cell Distribution Width 11.9 Platelet Count 143 Mean Platelet Volume 11.5 H Neutrophils % 68.9 Lymphocytes % 17.4 Monocytes % 12.5 H Eosinophils % 0.2 Basophils % 0.6 Nucleated Red Blood Cells % 0.0 Neutrophils # 3.5 Lymphocytes # 0.9 Monocytes # 0.6 Eosinophils # 0.0 Basophils # 0.0 Nucleated Red Blood Cells # 0.0 Sodium Level 138 Potassium Level 4.8 Chloride Level 107 Carbon Dioxide Level 19 L Anion Gap 17 H Blood Urea Nitrogen 42 #H Creatinine 1.69 H Glucose Level 112 Calcium Level 10.3 H Test 08/21/17 08:12 08/21/17 10:03 Bedside Glucose 110 136 Medications Medications Current Medications Clonidine (Catapres) 0.1 mg Q4H PRN PO ELEVATED BLOOD PRESSURE Last administered on 08/12/17 06:11; Admin Dose 0.1 MG; Start 08/08/17 at 21:00 Metoprolol Tartrate (Lopressor) 50 mg BID PO Last administered on 08/21/17 09 :44; Admin Dose 50 MG; Start 08/08/17 at 21:26 Mycophenolate Sodium (Myfortic) 540 mg BID PO Last administered on 08/21/17 09:43; Admin Dose 540 MG; Start 08/08/17 at 22:00 Prednisone (Prednisone) 5 mg DAILY PO Last administered on 08/21/17 09:42; Admin Dose 5 MG; Start 08/09/17 at 09:00 Diagnostic Test (Pha) (Accu-Chek) 1 ea 02 XX Last administered on 08/16/17 01 :39; Admin Dose 1 EA; Start 08/09/17 at 02:00 Miscellaneous Information 1 ea NOTE XX ; Start 08/08/17 at 21:30 Glucose (Glutose) 15 gm Q15M PRN PO DECREASED GLUCOSE; Start 08/08/17 at 21:30 Glucose (Glutose) 22.5 gm Q15M PRN PO DECREASED GLUCOSE; Start 08/08/17 at 21: 30 Dextrose (D50w Syringe) 25 ml Q15M PRN IV DECREASED GLUCOSE; Start 08/08/17 at 21:30 Dextrose (D50w Syringe) 50 ml Q15M PRN IV DECREASED GLUCOSE; Start 08/08/17 at 21:30 Glucagon (Glucagen) 1 mg Q15M PRN IM DECREASED GLUCOSE; Start 08/08/17 at 21:30 Glucose (Glutose) 15 gm Q15M PRN BUCCAL DECREASED GLUCOSE; Start 08/08/17 at 21 :30 Acetaminophen/ Hydrocodone Bitart ([place] (7.5-325)) 1 tab Q4H PRN PO PAIN LEVEL 4-7 Last administered on 08/20/17 21:13; Admin Dose 1 TAB; Start at 09:30 Amlodipine Besylate 5 mg 5 mg DAILY PO Last administered on 08/21/17 09:43; Admin Dose 5 MG; Start 08/09/17 at 09:30 Piperacillin Sod/ Tazobactam Sod (Zosyn 2.25gm/ 50ml (Pmx)) 50 ml @ 100 mls/hr Q8 IVPB Last administered on 08/21/17 05:38; Admin Dose 100 MLS/HR; Start at 14:30 Enoxaparin Sodium (Lovenox) 30 mg DAILY SC Last administered on 08/21/17 09: 47; Admin Dose 30 MG; Start 08/13/17 at 09:00 Morphine Sulfate (morphine) 2 mg Q4H PRN IV PAIN LEVEL 6-10 Last administered on 08/21/17 09:59; Admin Dose 2 MG; Start 08/13/17 at 11:30 Ondansetron HCl (Zofran Inj) 4 mg Q4H PRN IV NAUSEA AND/OR VOMITING Last administered on 08/13/17 16:07; Admin Dose 4 MG; Start 08/13/17 at 11:30 Hydralazine HCl (Apresoline) 10 mg Q6H PRN IV ELEVATED BLOOD PRESSURE Last administered on 08/16/17 01:33; Admin Dose 10 MG; Start 08/13/17 at 14:00 Metoclopramide HCl (Reglan) 10 mg Q8 IV Last administered on 08/21/17 05:38; Admin Dose 10 MG; Start 08/13/17 at 22:00 Pantoprazole (Protonix Tab) 40 mg DAILY@06 PO Last administered on 08/21/17 05:39; Admin Dose 40 MG; Start 08/17/17 at 06:00 Insulin Glargine (Lantus) 5 unit BID SC Last administered on 08/21/17 10:06; Admin Dose 5 UNIT; Start 08/18/17 at 21:00 Megestrol Acetate 400 mg 400 mg DAILY PO Last administered on 08/21/17 09:41 ; Admin Dose 400 MG; Start 08/20/17 at 09:00 Daptomycin/Sodium Chloride (Cubicin/NS) 100 ml @ 200 mls/hr Q24H IVPB Last administered on 08/20/17 16:35; Admin Dose 200 MLS/HR; Start 08/20/17 at 16: 00 Tacrolimus (Prograf) 1 mg Q12 PO Last administered on 08/21/17 09:44; Admin Dose 1 MG; Start 08/21/17 at 09:00 UCHE ZEPEDA MD Aug 21, 2017 10:09
[2017-08-21] MEDS: DAPTOMYCIN 250 MG in SOD CHLORIDE 0.9% 100 ML IVPB SCH (15:29)
[2017-08-21] MEDS ORDERED: LORAZEPAM 2 MG INJ IV ONE (17:00)
--- NOTE | 2017-08-21 17:41 | CONS ---
Date/Time of Note Date/Time of Note DATE: 08/21/17 TIME: 17:39 Assessment/Plan Assessment/Plan Additional Assessment/Plan 1. Acute Kidney inury on CKD due to Prerenal azotemia and Infection 2. Left finger infection possibel recurrent OM of left finger 3.h/o OM of R 2nd finger s/p amputation at proximal phalanx neck, and h/o OM of L 3rd finger s/p amputation at middle and distal phalanges 4. 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 h/o ESRD, was on HD - s/p renal transplant in 2009 (on tacrolimus 3mg bid, mycophenolate 540 mg bid, prednisone 5 mg daily), mild renal insufficiency at baseline 6. rheumatoid arthritis 7. chronic HCV infection 8. HTN 9. dyslipidemia 10. h/o polysubstance and IV drug use. 11. h/o pernicious anemia. 12. h/o erosive esophagitis and gastritis 13. Hyperkalemia- resolved after prograf stopped Plan: Cr bumped from 1.38 to 1.69- after prograf was restarted, will stop prograf for now if continues to have high Cr then we will give IVF NS IV abx as per ID pt has previously had a full CKD work up - no need to repeat it Continue current Immunosuppression for kidney transplant,( Tacrolimus stoppday on - resumed on 08/20 and again stopped on 08/21/17- continue mycophenolate 540 mg bid, prednisone 5 mg daily) pt has no signs and symptoms of tracrolimus toxicity, so we will monitor it. Consultation Date/Type/Reason Admit Date/Time Aug 08, 2017 at 16:53 Initial Consult Date 08/09/17 Type of Consultation: NEPHROLOGY Referring Provider: LUPE KAPLAN MD Exam/Review of Systems Vital Signs Vitals Vital Signs Date Time Temp Pulse Resp B/P Pulse Ox O2 Delivery O2 Flow Rate FiO2 08/21/17 07:26 98.0 59 20 115/74 99 Intake and Output 08/20/17 08/20/17 08/21/17 15:00 23:00 07:00 Intake Total 50 ml 1660 ml 580 ml Output Total 950 ml 1200 ml Balance 50 ml 710 ml -620 ml Exam Constitutional: alert Psych: no complaints Head: normocephalic ENMT: nl external ears & nose Neck: non-tender, supple Respiratory: clear to auscultation, diminished breath sounds, normal air movement Cardiovascular: nl pulses, regular rate and rhythm Gastrointestinal: non-tender, soft Musculoskeletal: nl extremities to inspection, other ((left finger swelling )) 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: TECHNOLOGY ADMINISTRATOR II-XII intact, nl mental status, nl speech Results Result Diagram: 08/21/17 0539 08/21/17 0539 Results 24 hrs Laboratory Tests Test 08/20/17 21:01 08/21/17 05:39 08/21/17 08:12 08/21/17 10:03 Bedside Glucose 126 110 136 White Blood Count 5.1 # Red Blood Count 4.44 L Hemoglobin 14.6 Hematocrit 45.6 Mean Corpuscular Volume 102.7 H Mean Corpuscular Hemoglobin 32.9 Mean Corpuscular Hemoglobin Concent 32.0 Red Cell Distribution Width 11.9 Platelet Count 143 Mean Platelet Volume 11.5 H Neutrophils % 68.9 Lymphocytes % 17.4 Monocytes % 12.5 H Eosinophils % 0.2 Basophils % 0.6 Nucleated Red Blood Cells % 0.0 Neutrophils # 3.5 Lymphocytes # 0.9 Monocytes # 0.6 Eosinophils # 0.0 Basophils # 0.0 Nucleated Red Blood Cells # 0.0 Sodium Level 138 Potassium Level 4.8 Chloride Level 107 Carbon Dioxide Level 19 L Anion Gap 17 H Blood Urea Nitrogen 42 #H Creatinine 1.69 H Glucose Level 112 Calcium Level 10.3 H Test 08/21/17 12:20 Bedside Glucose 97 Medications Medications Current Medications Clonidine (Catapres) 0.1 mg Q4H PRN PO ELEVATED BLOOD PRESSURE Last administered on 08/12/17 06:11; Admin Dose 0.1 MG; Start 08/08/17 at 21:00 Metoprolol Tartrate (Lopressor) 50 mg BID PO Last administered on 08/21/17 09 :44; Admin Dose 50 MG; Start 08/08/17 at 21:26 Mycophenolate Sodium (Myfortic) 540 mg BID PO Last administered on 08/21/17 09:43; Admin Dose 540 MG; Start 08/08/17 at 22:00 Prednisone (Prednisone) 5 mg DAILY PO Last administered on 08/21/17 09:42; Admin Dose 5 MG; Start 08/09/17 at 09:00 Diagnostic Test (Pha) (Accu-Chek) 1 ea 02 XX Last administered on 08/16/17 01 :39; Admin Dose 1 EA; Start 08/09/17 at 02:00 Miscellaneous Information 1 ea NOTE XX ; Start 08/08/17 at 21:30 Glucose (Glutose) 15 gm Q15M PRN PO DECREASED GLUCOSE; Start 08/08/17 at 21:30 Glucose (Glutose) 22.5 gm Q15M PRN PO DECREASED GLUCOSE; Start 08/08/17 at 21: 30 Dextrose (D50w Syringe) 25 ml Q15M PRN IV DECREASED GLUCOSE; Start 08/08/17 at 21:30 Dextrose (D50w Syringe) 50 ml Q15M PRN IV DECREASED GLUCOSE; Start 08/08/17 at 21:30 Glucagon (Glucagen) 1 mg Q15M PRN IM DECREASED GLUCOSE; Start 08/08/17 at 21:30 Glucose (Glutose) 15 gm Q15M PRN BUCCAL DECREASED GLUCOSE; Start 08/08/17 at 21 :30 Acetaminophen/ Hydrocodone Bitart ([place] (7.5-325)) 1 tab Q4H PRN PO PAIN LEVEL 4-7 Last administered on 08/20/17 21:13; Admin Dose 1 TAB; Start at 09:30 Amlodipine Besylate 5 mg 5 mg DAILY PO Last administered on 08/21/17 09:43; Admin Dose 5 MG; Start 08/09/17 at 09:30 Piperacillin Sod/ Tazobactam Sod (Zosyn 2.25gm/ 50ml (Pmx)) 50 ml @ 100 mls/hr Q8 IVPB Last administered on 08/21/17 14:37; Admin Dose 100 MLS/HR; Start at 14:30 Enoxaparin Sodium (Lovenox) 30 mg DAILY SC Last administered on 08/21/17 09: 47; Admin Dose 30 MG; Start 08/13/17 at 09:00 Morphine Sulfate (morphine) 2 mg Q4H PRN IV PAIN LEVEL 6-10 Last administered on 08/21/17 09:59; Admin Dose 2 MG; Start 08/13/17 at 11:30 Ondansetron HCl (Zofran Inj) 4 mg Q4H PRN IV NAUSEA AND/OR VOMITING Last administered on 08/13/17 16:07; Admin Dose 4 MG; Start 08/13/17 at 11:30 Hydralazine HCl (Apresoline) 10 mg Q6H PRN IV ELEVATED BLOOD PRESSURE Last administered on 08/16/17 01:33; Admin Dose 10 MG; Start 08/13/17 at 14:00 Metoclopramide HCl (Reglan) 10 mg Q8 IV Last administered on 08/21/17 14:37; Admin Dose 10 MG; Start 08/13/17 at 22:00 Pantoprazole (Protonix Tab) 40 mg DAILY@06 PO Last administered on 08/21/17 05:39; Admin Dose 40 MG; Start 08/17/17 at 06:00 Insulin Glargine (Lantus) 5 unit BID SC Last administered on 08/21/17 10:06; Admin Dose 5 UNIT; Start 08/18/17 at 21:00 Megestrol Acetate 400 mg 400 mg DAILY PO Last administered on 08/21/17 09:41 ; Admin Dose 400 MG; Start 08/20/17 at 09:00 Daptomycin/Sodium Chloride (Cubicin/NS) 100 ml @ 200 mls/hr Q24H IVPB Last administered on 08/21/17 15:29; Admin Dose 200 MLS/HR; Start 08/20/17 at 16: 00 Tacrolimus (Prograf) 1 mg Q12 PO Last administered on 08/21/17 09:44; Admin Dose 1 MG; Start 08/21/17 at 09:00 SHAKA SIMPSON MD Aug 21, 2017 17:41
--- NOTE | 2017-08-21 18:11 | RADRPT ---
PROCEDURE: XR Chest. CLINICAL INDICATION: PICC placement. TECHNIQUE: Portable AP semi supine view of the chest was obtained. COMPARISON: 04/28/2016 FINDINGS: The distal tip of the right sided PICC is slightly called and probably within the azygos vein. The c ardiomediastinal silhouette is within normal limits. The lungs are clear. There is no evidence for pleural effusion, pneumothorax or pulmonary vascular congestion. The osseous structures are intact with no evidence for acute abnormality. RPTAT:[id number] IMPRESSION: Distal tip of the right PICC is believed to be directed into the azygos vein without evidence for ac zara intrathoracic pathology. Physician Dc Date Time Electronically viewed and signed by Physician Dc on 08/21/2017 18:10 JR/
--- NOTE | 2017-08-21 18:12 | RADRPT ---
PROCEDURE: XR Chest. CLINICAL INDICATION: PICC line placement. TECHNIQUE: Single frontal chest x-ray. COMPARISON: 08/21/2017 at 17 57 FINDINGS: Right PICC line is been slightly pulled back with the tip now in a straight position in the SVC.. Pr eviously demonstrated distal loop is no longer present. Heart is normal in size.. There is no conge stive heart failure.. No focal infiltrate is seen. There is no pleural effusion. There is no pneum othorax. The osseous structures are unremarkable. IMPRESSION: Straightening of the distal aspect of the right PICC line with tip in the SVC. RPTAT: [id number] .Harmeet Sierra MD, Date Time Electronically viewed and signed by .Harmeet Sierra MD, on 08/21/2017 18:11 .K/
--- NOTE | 2017-08-21 19:10 | RADRPT ---
PROCEDURE: Ultrasound guidance for placement of needle in right upper extremity vein. CLINICAL INDICATION: Venous access. TECHNIQUE: Limited sonography of the right upper extremity was performed. Ultrasound images were recorded and stored in the patient's medical record. COMPARISON: None. FINDINGS: The ultrasound images demonstrate a patent right upper extremity vein. The PICC line was inserted b y the PICC line nurse. IMPRESSION: 1. Ultrasound guidance for a needle placement in a right upper extremity vein. 2. The visualized right upper extremity vein is patent. RPTAT: QQ .Arun Mora MD, MD Date Time Electronically viewed and signed by .Arun Mora MD, on 08/21/2017 19:10 .R/
--- NOTE | 2017-08-21 22:01 | PN ---
Date/Time of Note Date/Time of Note DATE: 08/21/17 TIME: 22:00 Assessment/Plan Lines/Catheters IV [facility]ter Type (from [facility]): PICC Line Urinary Cath still in place: No Assessment/Plan Assessment/Plan - Right 3rd finger distal osteomyelitis. Left index finger distal phalanx also suggests early osteomyelitis. Continue antibiotics per ID. Dr. Awan is following infection disease consultation. - Juan's esophagus and severe gastritis per EGD on 08/13. Continue Protonix. - Weight loss, abdominal pain and melenic stools. Dr Hartley is following in in gastroenterology consultation. - End-stage renal disease, status post kidney transplant in 2009. Continued on antirejection therapy with baseline creatinine is about 1.5. - Hypertension. Continue Norvasc and metoprolol. - Diabetes mellitus. Continue NovoLog per mild algorithm sliding scale. - Hepatitis C. Further recommendations based on clinical course. Plan of care discussed with Dr. Maier. Exam/Review of Systems Vital Signs Vitals Vital Signs Date Time Temp Pulse Resp B/P Pulse Ox O2 Delivery O2 Flow Rate FiO2 08/21/17 07:26 98.0 59 20 115/74 99 Intake and Output 08/20/17 08/20/17 08/21/17 15:00 23:00 07:00 Intake Total 50 ml 1660 ml 580 ml Output Total 950 ml 1200 ml Balance 50 ml 710 ml -620 ml Results Result Diagram: 08/21/17 0539 08/21/17 0539 Results 24 hrs Laboratory Tests Test 08/21/17 05:39 08/21/17 08:12 08/21/17 10:03 08/21/17 12:20 White Blood Count 5.1 # Red Blood Count 4.44 L Hemoglobin 14.6 Hematocrit 45.6 Mean Corpuscular Volume 102.7 H Mean Corpuscular Hemoglobin 32.9 Mean Corpuscular Hemoglobin Concent 32.0 Red Cell Distribution Width 11.9 Platelet Count 143 Mean Platelet Volume 11.5 H Neutrophils % 68.9 Lymphocytes % 17.4 Monocytes % 12.5 H Eosinophils % 0.2 Basophils % 0.6 Nucleated Red Blood Cells % 0.0 Neutrophils # 3.5 Lymphocytes # 0.9 Monocytes # 0.6 Eosinophils # 0.0 Basophils # 0.0 Nucleated Red Blood Cells # 0.0 Sodium Level 138 Potassium Level 4.8 Chloride Level 107 Carbon Dioxide Level 19 L Anion Gap 17 H Blood Urea Nitrogen 42 #H Creatinine 1.69 H Glucose Level 112 Calcium Level 10.3 H Bedside Glucose 110 136 97 Test 08/21/17 18:39 08/21/17 21:05 Bedside Glucose 122 203 Medications Medications Current Medications Clonidine (Catapres) 0.1 mg Q4H PRN PO ELEVATED BLOOD PRESSURE Last administered on 08/12/17 06:11; Admin Dose 0.1 MG; Start 08/08/17 at 21:00 Metoprolol Tartrate (Lopressor) 50 mg BID PO Last administered on 08/21/17 09 :44; Admin Dose 50 MG; Start 08/08/17 at 21:26 Mycophenolate Sodium (Myfortic) 540 mg BID PO Last administered on 08/21/17 21:07; Admin Dose 540 MG; Start 08/08/17 at 22:00 Prednisone (Prednisone) 5 mg DAILY PO Last administered on 08/21/17 09:42; Admin Dose 5 MG; Start 08/09/17 at 09:00 Diagnostic Test (Pha) (Accu-Chek) 1 ea 02 XX Last administered on 08/16/17 01 :39; Admin Dose 1 EA; Start 08/09/17 at 02:00 Miscellaneous Information 1 ea NOTE XX ; Start 08/08/17 at 21:30 Glucose (Glutose) 15 gm Q15M PRN PO DECREASED GLUCOSE; Start 08/08/17 at 21:30 Glucose (Glutose) 22.5 gm Q15M PRN PO DECREASED GLUCOSE; Start 08/08/17 at 21: 30 Dextrose (D50w Syringe) 25 ml Q15M PRN IV DECREASED GLUCOSE; Start 08/08/17 at 21:30 Dextrose (D50w Syringe) 50 ml Q15M PRN IV DECREASED GLUCOSE; Start 08/08/17 at 21:30 Glucagon (Glucagen) 1 mg Q15M PRN IM DECREASED GLUCOSE; Start 08/08/17 at 21:30 Glucose (Glutose) 15 gm Q15M PRN BUCCAL DECREASED GLUCOSE; Start 08/08/17 at 21 :30 Acetaminophen/ Hydrocodone Bitart ([place] (7.5-325)) 1 tab Q4H PRN PO PAIN LEVEL 4-7 Last administered on 08/20/17 21:13; Admin Dose 1 TAB; Start at 09:30 Amlodipine Besylate 5 mg 5 mg DAILY PO Last administered on 08/21/17 09:43; Admin Dose 5 MG; Start 08/09/17 at 09:30 Piperacillin Sod/ Tazobactam Sod (Zosyn 2.25gm/ 50ml (Pmx)) 50 ml @ 100 mls/hr Q8 IVPB Last administered on 08/21/17 14:37; Admin Dose 100 MLS/HR; Start at 14:30 Enoxaparin Sodium (Lovenox) 30 mg DAILY SC Last administered on 08/21/17 09: 47; Admin Dose 30 MG; Start 08/13/17 at 09:00 Morphine Sulfate (morphine) 2 mg Q4H PRN IV PAIN LEVEL 6-10 Last administered on 08/21/17 09:59; Admin Dose 2 MG; Start 08/13/17 at 11:30 Ondansetron HCl (Zofran Inj) 4 mg Q4H PRN IV NAUSEA AND/OR VOMITING Last administered on 08/13/17 16:07; Admin Dose 4 MG; Start 08/13/17 at 11:30 Hydralazine HCl (Apresoline) 10 mg Q6H PRN IV ELEVATED BLOOD PRESSURE Last administered on 08/16/17 01:33; Admin Dose 10 MG; Start 08/13/17 at 14:00 Metoclopramide HCl (Reglan) 10 mg Q8 IV Last administered on 08/21/17 14:37; Admin Dose 10 MG; Start 08/13/17 at 22:00 Pantoprazole (Protonix Tab) 40 mg DAILY@06 PO Last administered on 08/21/17 05:39; Admin Dose 40 MG; Start 08/17/17 at 06:00 Insulin Glargine (Lantus) 5 unit BID SC Last administered on 08/21/17 21:11; Admin Dose 5 UNIT; Start 08/18/17 at 21:00 Megestrol Acetate 400 mg 400 mg DAILY PO Last administered on 08/21/17 09:41 ; Admin Dose 400 MG; Start 08/20/17 at 09:00 Daptomycin/Sodium Chloride (Cubicin/NS) 100 ml @ 200 mls/hr Q24H IVPB Last administered on 10/19/17at 15:29; Admin Dose 200 MLS/HR; Start 08/20/17 at 16: 00 IV Flush (NS 10 ml) 10 ml PRN PRN IV IV PROTOCOL; Start 08/21/17 at 19:30 EILEEN COBURN Aug 21, 2017 22:01
[2017-08-21 22:44] VITALS: BP 111/46; RESP 18
[2017-08-22] MEDS: HYDROCODONE/APAP (7.5/325) TAB PO PRN ×2 (02:21→21:28)
[2017-08-22] MEDS: ACCU-CHEK XX SCH (02:22)
[2017-08-22 03:32] VITALS: BP 131/60; RESP 18
[2017-08-22] MEDS: PIPER-TAZO 2.25 GM (PMX) 50 ML IVPB SCH ×3 (05:31→21:23)
[2017-08-22] MEDS: METOCLOPRAMIDE 10 MG INJ IV SCH ×3 (05:31→21:23)
[2017-08-22] MEDS: PANTOPRAZOLE (EC) 40 MG TAB PO SCH (05:31)
[2017-08-22 05:59] LABS: BASOPHILS % 1.2 % (0.0-2.0); EOSINOPHILS % 0.3 % (0.0-7.0); HEMATOCRIT 41.7 % (42.0-52.0); HEMOGLOBIN 13.7 g/dl (14.0-18.0); LYMPHOCYTES % 30.4 % (15.0-51.0); MEAN CORPUSCULAR HEMOGLOBIN 32.9 pg (29.0-33.0); MEAN CORPUSCULAR HGB CONC 32.9 g/dl (32.0-37.0); MEAN CORPUSCULAR VOLUME 100.2 fl (82.0-101.0); MEAN PLATELET VOLUME 11.5 fl (7.4-10.4); MONOCYTE # 0.5 10^3/ul (0.3-0.9); MONOCYTES % 14.5 % (0.0-11.0); NEUTROPHIL # 1.8 10^3/ul (1.6-7.5); NEUTROPHILS % 53.3 % (39.0-77.0); PLATELET COUNT 144 10^3/UL (140-415); RED BLOOD COUNT 4.16 10^6/ul (4.70-6.10); RED CELL DISTRIBUTION WIDTH 11.8 % (11.5-14.5); WHITE BLOOD COUNT 3.3 10^3/ul (4.8-10.8)
[2017-08-22 06:37] LABS: MAGNESIUM 1.6 mg/dl (1.7-2.5); PHOSPHORUS 3.7 mg/dl (2.5-4.9)
[2017-08-22 06:41] LABS: CALCIUM 10.4 mg/dl (8.4-10.2); CREATININE 1.54 mg/dl (0.61-1.24); POTASSIUM 4.1 mmol/L (3.5-5.1)
[2017-08-22] MEDS: INSULIN ASPART [NOVOLOG] 3 ML PEN SC SCH ×4 (07:59→20:58)
[2017-08-22 08:08] VITALS: BP 225/84; RESP 18
[2017-08-22 08:25] VITALS: BP 158/58; PULSE 75
[2017-08-22] MEDS: METOPROLOL 50 MG TAB PO SCH ×2 (08:26→20:54)
[2017-08-22] MEDS: MYCOPHENOLATE (SR) 180 MG TAB PO SCH ×2 (08:26→20:54)
[2017-08-22] MEDS: MEGESTROL (40 MG/ML) 10ML CUP PO SCH (08:26)
[2017-08-22] MEDS: AMLODIPINE 5 MG TAB PO SCH (08:26)
[2017-08-22] MEDS: predniSONE 5 MG TAB PO SCH (08:27)
[2017-08-22] MEDS: ENOXAPARIN 30 MG/0.3 ML SYG SC SCH (08:32)
[2017-08-22] MEDS: INSULIN GLARGINE [LANtus] 3 ML PEN SC SCH ×2 (08:32→20:58)
[2017-08-22] MEDS: morphine 2 MG INJ IV PRN ×2 (09:52→15:40)
[2017-08-22 09:56] VITALS: BP 118/49; PULSE 72
--- NOTE | 2017-08-22 10:18 | CONS ---
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 (XR showed periosteal reaction at the tip of R 3rd distal phalanx, suspicious for OM, MRI showed cellulitis of distal R 4th phalanx, without OM) and L 2nd fingertip (XR showed cortical irregularity at the tuft of L 2nd distal phalanx with overlying soft tissue defect, suggesting early OM, MRI showed OM at L 2nd distal phalanx with, cellulitis about L 2nd distal phalanx without drainable fluid collection.) - h/o OM of R 2nd finger s/p amputation at proximal phalanx neck, and h/o OM of L 3rd finger s/p amputation at middle and distal phalanges - DM - Juan's esophagus and gastritis s/p EGD on 08/12/2017. No H. pylori on Bx - h/o ESRD, was on HD - s/p renal transplant in 2009 (on tacrolimus 3mg bid, mycophenolate 540 mg bid , prednisone 5 mg daily), chronic renal insufficiency at baseline - rheumatoid arthritis - chronic HCV infection - HTN - dyslipidemia - h/o polysubstance and IV drug use. - h/o pernicious anemia. - h/o hyperparathyroidism. recommendations - I recommend renally dosed pip/tazo and daptomycin (08/09/2017-) x6 weeks for his recurrent OM. Suggested end date:09/20/2017. Please order weekly CBC, BMP and CK while Pt's on IV antibiotic at home. CK was 23 on 08/20/2017. Please ensure that Pt gets a follow up appointment with an ID specialist who is contracted with his insurance. 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 Problems: Consultation Date/Type/Reason Admit Date/Time Aug 08, 2017 at 16:53 Initial Consult Date 08/09/17 Type of Consultation: ID Referring Provider: LUPE KAPLAN MD 24 HR Interval Summary Constitutional: no complaints Detailed Summary Eyes: no complaints ENT: no complaints Respiratory: no complaints Cardiovascular: no complaints Gastrointestinal: no complaints Genitourinary: no complaints Musculoskeletal: no complaints (Pt has had amputation of R 2nd and L 3rd fingers) Skin: no complaints, skin lesions (old laceration on R 3rd fingertip) Neurologic: no complaints Exam/Review of Systems Vital Signs Vitals Vital Signs Date Time Temp Pulse Resp B/P Pulse Ox O2 Delivery O2 Flow Rate FiO2 08/22/17 09:56 72 118/49 08/22/17 08:08 98.6 18 98 Intake and Output 08/21/17 08/21/17 08/22/17 15:00 23:00 07:00 Intake Total 480 ml 250 ml Output Total 900 ml 300 ml 200 ml Balance -420 ml -50 ml -200 ml Exam Constitutional: alert, oriented, well developed Psych: nl mood/affect, no complaints Head: atraumatic, normocephalic Eyes: nl conjunctiva, nl lids, nl sclera ENMT: nl external ears & nose, nl nasal mucosa & septum Neck: supple Musculoskeletal: nl extremities to inspection, range of motion (normal of all intact fingers), No swelling Extremities: other (AVF in LUE), No edema 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: [employer] II-XII intact, nl mental status, nl speech Skin: rash or lesions (old laceration on R 3rd finger tip is closed and non-TTP ) Results Result Diagram: 08/22/17 0501 08/22/17 0501 Results 24 hrs Laboratory Tests Test 08/21/17 12:20 08/21/17 18:39 08/21/17 21:05 08/22/17 02:15 Bedside Glucose 97 122 203 92 Test 08/22/17 05:01 08/22/17 07:58 White Blood Count 3.3 #L Red Blood Count 4.16 L Hemoglobin 13.7 L Hematocrit 41.7 L Mean Corpuscular Volume 100.2 Mean Corpuscular Hemoglobin 32.9 Mean Corpuscular Hemoglobin Concent 32.9 Red Cell Distribution Width 11.8 Platelet Count 144 Mean Platelet Volume 11.5 H Neutrophils % 53.3 Lymphocytes % 30.4 Monocytes % 14.5 H Eosinophils % 0.3 Basophils % 1.2 Nucleated Red Blood Cells % 0.0 Neutrophils # 1.8 Lymphocytes # 1.0 Monocytes # 0.5 Eosinophils # 0.0 Basophils # 0.0 Nucleated Red Blood Cells # 0.0 Sodium Level 140 Potassium Level 4.1 Chloride Level 107 Carbon Dioxide Level 25 Anion Gap 12 Blood Urea Nitrogen 42 H Creatinine 1.54 H Glucose Level 89 Calcium Level 10.4 H Phosphorus Level 3.7 Magnesium Level 1.6 L Bedside Glucose 103 Medications Medications Current Medications Clonidine (Catapres) 0.1 mg Q4H PRN PO ELEVATED BLOOD PRESSURE Last administered on 08/12/17 06:11; Admin Dose 0.1 MG; Start 08/08/17 at 21:00 Metoprolol Tartrate (Lopressor) 50 mg BID PO Last administered on 08/22/17 08 :26; Admin Dose 50 MG; Start 08/08/17 at 21:26 Mycophenolate Sodium (Myfortic) 540 mg BID PO Last administered on 08/22/17 08:26; Admin Dose 540 MG; Start 08/08/17 at 22:00 Prednisone (Prednisone) 5 mg DAILY PO Last administered on 08/22/17 08:27; Admin Dose 5 MG; Start 08/09/17 at 09:00 Diagnostic Test (Pha) (Accu-Chek) 1 ea 02 XX Last administered on 08/22/17 02 :22; Admin Dose 1 EA; Start 08/09/17 at 02:00 Miscellaneous Information 1 ea NOTE XX ; Start 08/08/17 at 21:30 Glucose (Glutose) 15 gm Q15M PRN PO DECREASED GLUCOSE; Start 08/08/17 at 21:30 Glucose (Glutose) 22.5 gm Q15M PRN PO DECREASED GLUCOSE; Start 08/08/17 at 21: 30 Dextrose (D50w Syringe) 25 ml Q15M PRN IV DECREASED GLUCOSE; Start 08/08/17 at 21:30 Dextrose (D50w Syringe) 50 ml Q15M PRN IV DECREASED GLUCOSE; Start 08/08/17 at 21:30 Glucagon (Glucagen) 1 mg Q15M PRN IM DECREASED GLUCOSE; Start 08/08/17 at 21:30 Glucose (Glutose) 15 gm Q15M PRN BUCCAL DECREASED GLUCOSE; Start 08/08/17 at 21 :30 Acetaminophen/ Hydrocodone Bitart ([place] (7.5-325)) 1 tab Q4H PRN PO PAIN LEVEL 4-7 Last administered on 08/22/17 02:21; Admin Dose 1 TAB; Start at 09:30 Amlodipine Besylate 5 mg 5 mg DAILY PO Last administered on 08/22/17 08:26; Admin Dose 5 MG; Start 08/09/17 at 09:30 Piperacillin Sod/ Tazobactam Sod (Zosyn 2.25gm/ 50ml (Pmx)) 50 ml @ 100 mls/hr Q8 IVPB Last administered on 08/22/17 05:31; Admin Dose 100 MLS/HR; Start at 14:30 Enoxaparin Sodium (Lovenox) 30 mg DAILY SC Last administered on 08/22/17 08: 32; Admin Dose 30 MG; Start 08/13/17 at 09:00 Morphine Sulfate (morphine) 2 mg Q4H PRN IV PAIN LEVEL 6-10 Last administered on 08/22/17 09:52; Admin Dose 2 MG; Start 08/13/17 at 11:30 Ondansetron HCl (Zofran Inj) 4 mg Q4H PRN IV NAUSEA AND/OR VOMITING Last administered on 08/13/17 16:07; Admin Dose 4 MG; Start 08/13/17 at 11:30 Hydralazine HCl (Apresoline) 10 mg Q6H PRN IV ELEVATED BLOOD PRESSURE Last administered on 08/16/17 01:33; Admin Dose 10 MG; Start 08/13/17 at 14:00 Metoclopramide HCl (Reglan) 10 mg Q8 IV Last administered on 08/22/17 05:31; Admin Dose 10 MG; Start 08/13/17 at 22:00 Pantoprazole (Protonix Tab) 40 mg DAILY@06 PO Last administered on 08/22/17 05:31; Admin Dose 40 MG; Start 08/17/17 at 06:00 Insulin Glargine (Lantus) 5 unit BID SC Last administered on 08/22/17 08:32; Admin Dose 5 UNIT; Start 08/18/17 at 21:00 Megestrol Acetate (Megace Susp) 400 mg DAILY PO Last administered on 08:26; Admin Dose 400 MG; Start 08/20/17 at 09:00 IV Flush 10 ml 10 ml PRN PRN IV IV PROTOCOL; Start 08/21/17 at 19:30 Daptomycin/Sodium Chloride (Cubicin/NS) 100 ml @ 200 mls/hr Q48H IVPB ; Start 08/23/17 at 16:00; Stop 09/20/17 at 23:59 MAGO VAIL M.D. Aug 22, 2017 10:18
[2017-08-22 13:40] VITALS: BP 112/46; RESP 16
--- NOTE | 2017-08-22 16:47 | PN ---
Date/Time of Note Date/Time of Note DATE: 08/22/17 TIME: 16:45 Assessment/Plan VTE Prophylaxis VTE Prophylaxis Intervention: SCD's Lines/Catheters IV [facility] Type (from [facility]): PICC Line Central line still needed: Yes Urinary Cath still in place: No Assessment/Plan Chief Complaint/Hosp Course Patient remains hemodynamically stable, dissipate discharge home upon arrangement for home health IV antibiotics by case management. Patient needs renally dosed Zosyn and daptomycin until 09/20 ( orders written)according to infectious disease recommendations. This management also arranged for follow- up with infection disease according to patient's insurance. Plan of care is discussed with nurse outreach case manager Brandi. Assessment/Plan - Right 3rd finger distal osteomyelitis. Left index finger distal phalanx also suggests early osteomyelitis. Continue antibiotics per ID. Dr. Awan is following infection disease consultation. - Juan's esophagus and severe gastritis per EGD on 08/13. Continue Protonix. - Weight loss, abdominal pain and melenic stools. Dr Hartley is following in in gastroenterology consultation. - End-stage renal disease, status post kidney transplant in 2009. Continued on antirejection therapy with baseline creatinine is about 1.5. - Hypertension. Continue Norvasc and metoprolol. - Diabetes mellitus. Continue NovoLog per mild algorithm sliding scale. - Hepatitis C. Further recommendations based on clinical course. Plan of care discussed with Dr. Maier. Problems: Exam/Review of Systems Vital Signs Vitals Vital Signs Date Time Temp Pulse Resp B/P Pulse Ox O2 Delivery O2 Flow Rate FiO2 08/22/17 13:40 98.6 64 16 112/46 99 Intake and Output 08/21/17 08/21/17 08/22/17 15:00 23:00 07:00 Intake Total 480 ml 250 ml Output Total 900 ml 300 ml 200 ml Balance -420 ml -50 ml -200 ml Exam Constitutional: alert, oriented Head: normocephalic Neck: supple Respiratory: normal air movement Cardiovascular: nl pulses Gastrointestinal: non-tender, soft Extremities: normal pulses Results Result Diagram: 08/22/17 0501 08/22/17 0501 Results 24 hrs Laboratory Tests Test 08/21/17 18:39 08/21/17 21:05 08/22/17 02:15 08/22/17 05:01 Bedside Glucose 122 203 92 White Blood Count 3.3 #L Red Blood Count 4.16 L Hemoglobin 13.7 L Hematocrit 41.7 L Mean Corpuscular Volume 100.2 Mean Corpuscular Hemoglobin 32.9 Mean Corpuscular Hemoglobin Concent 32.9 Red Cell Distribution Width 11.8 Platelet Count 144 Mean Platelet Volume 11.5 H Neutrophils % 53.3 Lymphocytes % 30.4 Monocytes % 14.5 H Eosinophils % 0.3 Basophils % 1.2 Nucleated Red Blood Cells % 0.0 Neutrophils # 1.8 Lymphocytes # 1.0 Monocytes # 0.5 Eosinophils # 0.0 Basophils # 0.0 Nucleated Red Blood Cells # 0.0 Sodium Level 140 Potassium Level 4.1 Chloride Level 107 Carbon Dioxide Level 25 Anion Gap 12 Blood Urea Nitrogen 42 H Creatinine 1.54 H Glucose Level 89 Calcium Level 10.4 H Phosphorus Level 3.7 Magnesium Level 1.6 L Test 08/22/17 07:58 08/22/17 12:05 Bedside Glucose 103 157 Medications Medications Current Medications Clonidine (Catapres) 0.1 mg Q4H PRN PO ELEVATED BLOOD PRESSURE Last administered on 08/12/17 06:11; Admin Dose 0.1 MG; Start 08/08/17 at 21:00 Metoprolol Tartrate (Lopressor) 50 mg BID PO Last administered on 08/22/17 08 :26; Admin Dose 50 MG; Start 08/08/17 at 21:26 Mycophenolate Sodium (Myfortic) 540 mg BID PO Last administered on 08/22/17 08:26; Admin Dose 540 MG; Start 08/08/17 at 22:00 Prednisone (Prednisone) 5 mg DAILY PO Last administered on 08/22/17 08:27; Admin Dose 5 MG; Start 08/09/17 at 09:00 Diagnostic Test (Pha) (Accu-Chek) 1 ea 02 XX Last administered on 08/22/17 02 :22; Admin Dose 1 EA; Start 08/09/17 at 02:00 Miscellaneous Information 1 ea NOTE XX ; Start 08/08/17 at 21:30 Glucose (Glutose) 15 gm Q15M PRN PO DECREASED GLUCOSE; Start 08/08/17 at 21:30 Glucose (Glutose) 22.5 gm Q15M PRN PO DECREASED GLUCOSE; Start 08/08/17 at 21: 30 Dextrose (D50w Syringe) 25 ml Q15M PRN IV DECREASED GLUCOSE; Start 08/08/17 at 21:30 Dextrose (D50w Syringe) 50 ml Q15M PRN IV DECREASED GLUCOSE; Start 08/08/17 at 21:30 Glucagon (Glucagen) 1 mg Q15M PRN IM DECREASED GLUCOSE; Start 08/08/17 at 21:30 Glucose (Glutose) 15 gm Q15M PRN BUCCAL DECREASED GLUCOSE; Start 08/08/17 at 21 :30 Acetaminophen/ Hydrocodone Bitart ([place] (7.5-325)) 1 tab Q4H PRN PO PAIN LEVEL 4-7 Last administered on 08/22/17 02:21; Admin Dose 1 TAB; Start at 09:30 Amlodipine Besylate 5 mg 5 mg DAILY PO Last administered on 08/22/17 08:26; Admin Dose 5 MG; Start 08/09/17 at 09:30 Piperacillin Sod/ Tazobactam Sod (Zosyn 2.25gm/ 50ml (Pmx)) 50 ml @ 100 mls/hr Q8 IVPB Last administered on 08/22/17 13:27; Admin Dose 100 MLS/HR; Start at 14:30 Enoxaparin Sodium (Lovenox) 30 mg DAILY SC Last administered on 08/22/17 08: 32; Admin Dose 30 MG; Start 08/13/17 at 09:00 Morphine Sulfate (morphine) 2 mg Q4H PRN IV PAIN LEVEL 6-10 Last administered on 08/22/17 15:40; Admin Dose 2 MG; Start 08/13/17 at 11:30 Ondansetron HCl (Zofran Inj) 4 mg Q4H PRN IV NAUSEA AND/OR VOMITING Last administered on 08/13/17 16:07; Admin Dose 4 MG; Start 08/13/17 at 11:30 Hydralazine HCl (Apresoline) 10 mg Q6H PRN IV ELEVATED BLOOD PRESSURE Last administered on 08/16/17 01:33; Admin Dose 10 MG; Start 08/13/17 at 14:00 Metoclopramide HCl (Reglan) 10 mg Q8 IV Last administered on 08/22/17 13:27; Admin Dose 10 MG; Start 08/13/17 at 22:00 Pantoprazole (Protonix Tab) 40 mg DAILY@06 PO Last administered on 08/22/17 05:31; Admin Dose 40 MG; Start 08/17/17 at 06:00 Insulin Glargine (Lantus) 5 unit BID SC Last administered on 08/22/17 08:32; Admin Dose 5 UNIT; Start 08/18/17 at 21:00 Megestrol Acetate (Megace Susp) 400 mg DAILY PO Last administered on 08:26; Admin Dose 400 MG; Start 08/20/17 at 09:00 IV Flush 10 ml 10 ml PRN PRN IV IV PROTOCOL; Start 08/21/17 at 19:30 Daptomycin/Sodium Chloride (Cubicin/NS) 100 ml @ 200 mls/hr Q48H IVPB ; Start 08/23/17 at 16:00; Stop 09/20/17 at 23:59 LETI RODRIGUEZ Aug 22, 2017 16:47
--- NOTE | 2017-08-22 17:39 | CONS ---
Date/Time of Note Date/Time of Note DATE: 08/22/17 TIME: 17:38 Assessment/Plan Assessment/Plan Additional Assessment/Plan IMPRESSION: 1. Osteomyelitis of the finger. 2. Diabetes mellitus. 3. Status post renal transplant, on immunosuppressive medication. 4. Hepatitis C virus infection in the past. 5. Epigastric pain for months. 6. Significant weight loss. The patient definitely looks cachectic. 7. History of melena which stopped 5 days ago. 8. Cachexia, patient is eating better and feeling good now 9. Juan esophagus 10. Distended gallbladder but normal biliary system Plan Continue PPI Reglan for nausea vomiting We will record patient's weight on a regular basis. Patient weight is not recorded Consultation Date/Type/Reason Admit Date/Time Aug 08, 2017 at 16:53 Initial Consult Date 08/09/17 Type of Consultation: ID Referring Provider: LUPE KAPLAN MD 24 HR Interval Summary Constitutional: improved, no complaints Exam/Review of Systems Vital Signs Vitals Vital Signs Date Time Temp Pulse Resp B/P Pulse Ox O2 Delivery O2 Flow Rate FiO2 08/22/17 13:40 98.6 64 16 112/46 99 Intake and Output 08/21/17 08/21/17 08/22/17 15:00 23:00 07:00 Intake Total 480 ml 250 ml Output Total 900 ml 300 ml 200 ml Balance -420 ml -50 ml -200 ml Exam Constitutional: alert, oriented, well developed Psych: nl mood/affect, no complaints Head: atraumatic, normocephalic Eyes: EOMI, PERRL, nl conjunctiva, nl lids, nl sclera ENMT: nl external ears & nose, nl lips & teeth, nl nasal mucosa & septum Neck: non-tender, supple Respiratory: clear to auscultation, normal air movement Cardiovascular: nl pulses, regular rate and rhythm Gastrointestinal: nl liver, spleen, non-tender, soft Musculoskeletal: nl extremities to inspection, nl gait and stance Extremities: normal pulses 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, nl mental status, nl speech, nl strength Skin: nl turgor, No rash or lesions Lymph: nl lymph nodes Results Result Diagram: 08/22/17 0501 08/22/17 0501 Results 24 hrs Laboratory Tests Test 08/21/17 18:39 08/21/17 21:05 08/22/17 02:15 08/22/17 05:01 Bedside Glucose 122 203 92 White Blood Count 3.3 #L Red Blood Count 4.16 L Hemoglobin 13.7 L Hematocrit 41.7 L Mean Corpuscular Volume 100.2 Mean Corpuscular Hemoglobin 32.9 Mean Corpuscular Hemoglobin Concent 32.9 Red Cell Distribution Width 11.8 Platelet Count 144 Mean Platelet Volume 11.5 H Neutrophils % 53.3 Lymphocytes % 30.4 Monocytes % 14.5 H Eosinophils % 0.3 Basophils % 1.2 Nucleated Red Blood Cells % 0.0 Neutrophils # 1.8 Lymphocytes # 1.0 Monocytes # 0.5 Eosinophils # 0.0 Basophils # 0.0 Nucleated Red Blood Cells # 0.0 Sodium Level 140 Potassium Level 4.1 Chloride Level 107 Carbon Dioxide Level 25 Anion Gap 12 Blood Urea Nitrogen 42 H Creatinine 1.54 H Glucose Level 89 Calcium Level 10.4 H Phosphorus Level 3.7 Magnesium Level 1.6 L Test 08/22/17 07:58 08/22/17 12:05 Bedside Glucose 103 157 Medications Medications Current Medications Clonidine (Catapres) 0.1 mg Q4H PRN PO ELEVATED BLOOD PRESSURE Last administered on 08/12/17 06:11; Admin Dose 0.1 MG; Start 08/08/17 at 21:00 Metoprolol Tartrate (Lopressor) 50 mg BID PO Last administered on 08/22/17 08 :26; Admin Dose 50 MG; Start 08/08/17 at 21:26 Mycophenolate Sodium (Myfortic) 540 mg BID PO Last administered on 08/22/17 08:26; Admin Dose 540 MG; Start 08/08/17 at 22:00 Prednisone (Prednisone) 5 mg DAILY PO Last administered on 08/22/17 08:27; Admin Dose 5 MG; Start 08/09/17 at 09:00 Diagnostic Test (Pha) (Accu-Chek) 1 ea 02 XX Last administered on 08/22/17 02 :22; Admin Dose 1 EA; Start 08/09/17 at 02:00 Miscellaneous Information 1 ea NOTE XX ; Start 08/08/17 at 21:30 Glucose (Glutose) 15 gm Q15M PRN PO DECREASED GLUCOSE; Start 08/08/17 at 21:30 Glucose (Glutose) 22.5 gm Q15M PRN PO DECREASED GLUCOSE; Start 08/08/17 at 21: 30 Dextrose (D50w Syringe) 25 ml Q15M PRN IV DECREASED GLUCOSE; Start 08/08/17 at 21:30 Dextrose (D50w Syringe) 50 ml Q15M PRN IV DECREASED GLUCOSE; Start 08/08/17 at 21:30 Glucagon (Glucagen) 1 mg Q15M PRN IM DECREASED GLUCOSE; Start 08/08/17 at 21:30 Glucose (Glutose) 15 gm Q15M PRN BUCCAL DECREASED GLUCOSE; Start 08/08/17 at 21 :30 Acetaminophen/ Hydrocodone Bitart ([place] (7.5-325)) 1 tab Q4H PRN PO PAIN LEVEL 4-7 Last administered on 08/22/17 02:21; Admin Dose 1 TAB; Start at 09:30 Amlodipine Besylate 5 mg 5 mg DAILY PO Last administered on 08/22/17 08:26; Admin Dose 5 MG; Start 08/09/17 at 09:30 Piperacillin Sod/ Tazobactam Sod (Zosyn 2.25gm/ 50ml (Pmx)) 50 ml @ 100 mls/hr Q8 IVPB Last administered on 08/22/17 13:27; Admin Dose 100 MLS/HR; Start at 14:30 Enoxaparin Sodium (Lovenox) 30 mg DAILY SC Last administered on 08/22/17 08: 32; Admin Dose 30 MG; Start 08/13/17 at 09:00 Morphine Sulfate (morphine) 2 mg Q4H PRN IV PAIN LEVEL 6-10 Last administered on 08/22/17 15:40; Admin Dose 2 MG; Start 08/13/17 at 11:30 Ondansetron HCl (Zofran Inj) 4 mg Q4H PRN IV NAUSEA AND/OR VOMITING Last administered on 08/13/17 16:07; Admin Dose 4 MG; Start 08/13/17 at 11:30 Hydralazine HCl (Apresoline) 10 mg Q6H PRN IV ELEVATED BLOOD PRESSURE Last administered on 08/16/17 01:33; Admin Dose 10 MG; Start 08/13/17 at 14:00 Metoclopramide HCl (Reglan) 10 mg Q8 IV Last administered on 08/22/17 13:27; Admin Dose 10 MG; Start 08/13/17 at 22:00 Pantoprazole (Protonix Tab) 40 mg DAILY@06 PO Last administered on 08/22/17 05:31; Admin Dose 40 MG; Start 08/17/17 at 06:00 Insulin Glargine (Lantus) 5 unit BID SC Last administered on 08/22/17 08:32; Admin Dose 5 UNIT; Start 08/18/17 at 21:00 Megestrol Acetate (Megace Susp) 400 mg DAILY PO Last administered on 08:26; Admin Dose 400 MG; Start 08/20/17 at 09:00 IV Flush 10 ml 10 ml PRN PRN IV IV PROTOCOL; Start 08/21/17 at 19:30 Daptomycin/Sodium Chloride (Cubicin/NS) 100 ml @ 200 mls/hr Q48H IVPB ; Start 08/23/17 at 16:00; Stop 09/20/17 at 23:59 UCHE ZEPEDA MD Aug 22, 2017 17:39
--- NOTE | 2017-08-22 18:24 | CONS ---
Date/Time of Note Date/Time of Note DATE: 08/22/17 TIME: 18:23 Assessment/Plan Assessment/Plan Additional Assessment/Plan 1. Acute Kidney inury on CKD due to Prerenal azotemia and Infection 2. Left finger infection possibel recurrent OM of left finger 3.h/o OM of R 2nd finger s/p amputation at proximal phalanx neck, and h/o OM of L 3rd finger s/p amputation at middle and distal phalanges 4. 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 h/o ESRD, was on HD - s/p renal transplant in 2009 (on tacrolimus 3mg bid, mycophenolate 540 mg bid, prednisone 5 mg daily), mild renal insufficiency at baseline 6. rheumatoid arthritis 7. chronic HCV infection 8. HTN 9. dyslipidemia 10. h/o polysubstance and IV drug use. 11. h/o pernicious anemia. 12. h/o erosive esophagitis and gastritis 13. Hyperkalemia- resolved after prograf stopped Plan: Cr 1.54 from 1.69 after prograf stopped yesterday if continues to have high Cr then we will give IVF NS IV abx as per ID pt has previously had a full CKD work up - no need to repeat it Continue current Immunosuppression for kidney transplant,( Tacrolimus stoppday on - resumed on 08/20 and again stopped on 08/21/17- continue mycophenolate 540 mg bid, prednisone 5 mg daily) Consultation Date/Type/Reason Admit Date/Time Aug 08, 2017 at 16:53 Initial Consult Date 08/09/17 Type of Consultation: NEPHROLOGY Referring Provider: LUPE KAPLAN MD 24 HR Interval Summary Free Text/Dictation Cr 1.54, Prograf stoppe dyesteday Exam/Review of Systems Vital Signs Vitals Vital Signs Date Time Temp Pulse Resp B/P Pulse Ox O2 Delivery O2 Flow Rate FiO2 08/22/17 13:40 98.6 64 16 112/46 99 Intake and Output 08/21/17 08/21/17 08/22/17 15:00 23:00 07:00 Intake Total 480 ml 250 ml Output Total 900 ml 300 ml 200 ml Balance -420 ml -50 ml -200 ml Results Result Diagram: 08/22/17 0501 08/22/17 0501 Results 24 hrs Laboratory Tests Test 08/21/17 18:39 08/21/17 21:05 08/22/17 02:15 08/22/17 05:01 Bedside Glucose 122 203 92 White Blood Count 3.3 #L Red Blood Count 4.16 L Hemoglobin 13.7 L Hematocrit 41.7 L Mean Corpuscular Volume 100.2 Mean Corpuscular Hemoglobin 32.9 Mean Corpuscular Hemoglobin Concent 32.9 Red Cell Distribution Width 11.8 Platelet Count 144 Mean Platelet Volume 11.5 H Neutrophils % 53.3 Lymphocytes % 30.4 Monocytes % 14.5 H Eosinophils % 0.3 Basophils % 1.2 Nucleated Red Blood Cells % 0.0 Neutrophils # 1.8 Lymphocytes # 1.0 Monocytes # 0.5 Eosinophils # 0.0 Basophils # 0.0 Nucleated Red Blood Cells # 0.0 Sodium Level 140 Potassium Level 4.1 Chloride Level 107 Carbon Dioxide Level 25 Anion Gap 12 Blood Urea Nitrogen 42 H Creatinine 1.54 H Glucose Level 89 Calcium Level 10.4 H Phosphorus Level 3.7 Magnesium Level 1.6 L Test 08/22/17 07:58 08/22/17 12:05 08/22/17 17:31 Bedside Glucose 103 157 141 Medications Medications Current Medications Clonidine (Catapres) 0.1 mg Q4H PRN PO ELEVATED BLOOD PRESSURE Last administered on 08/12/17 06:11; Admin Dose 0.1 MG; Start 08/08/17 at 21:00 Metoprolol Tartrate (Lopressor) 50 mg BID PO Last administered on 08/22/17 08 :26; Admin Dose 50 MG; Start 08/08/17 at 21:26 Mycophenolate Sodium (Myfortic) 540 mg BID PO Last administered on 08/22/17 08:26; Admin Dose 540 MG; Start 08/08/17 at 22:00 Prednisone (Prednisone) 5 mg DAILY PO Last administered on 08/22/17 08:27; Admin Dose 5 MG; Start 08/09/17 at 09:00 Diagnostic Test (Pha) (Accu-Chek) 1 ea 02 XX Last administered on 08/22/17 02 :22; Admin Dose 1 EA; Start 08/09/17 at 02:00 Miscellaneous Information 1 ea NOTE XX ; Start 08/08/17 at 21:30 Glucose (Glutose) 15 gm Q15M PRN PO DECREASED GLUCOSE; Start 08/08/17 at 21:30 Glucose (Glutose) 22.5 gm Q15M PRN PO DECREASED GLUCOSE; Start 08/08/17 at 21: 30 Dextrose (D50w Syringe) 25 ml Q15M PRN IV DECREASED GLUCOSE; Start 08/08/17 at 21:30 Dextrose (D50w Syringe) 50 ml Q15M PRN IV DECREASED GLUCOSE; Start 08/08/17 at 21:30 Glucagon (Glucagen) 1 mg Q15M PRN IM DECREASED GLUCOSE; Start 08/08/17 at 21:30 Glucose (Glutose) 15 gm Q15M PRN BUCCAL DECREASED GLUCOSE; Start 08/08/17 at 21 :30 Acetaminophen/ Hydrocodone Bitart ([place] (7.5-325)) 1 tab Q4H PRN PO PAIN LEVEL 4-7 Last administered on 08/22/17 02:21; Admin Dose 1 TAB; Start at 09:30 Amlodipine Besylate 5 mg 5 mg DAILY PO Last administered on 08/22/17 08:26; Admin Dose 5 MG; Start 08/09/17 at 09:30 Piperacillin Sod/ Tazobactam Sod (Zosyn 2.25gm/ 50ml (Pmx)) 50 ml @ 100 mls/hr Q8 IVPB Last administered on 08/22/17 13:27; Admin Dose 100 MLS/HR; Start at 14:30 Enoxaparin Sodium (Lovenox) 30 mg DAILY SC Last administered on 08/22/17 08: 32; Admin Dose 30 MG; Start 08/13/17 at 09:00 Morphine Sulfate (morphine) 2 mg Q4H PRN IV PAIN LEVEL 6-10 Last administered on 08/22/17 15:40; Admin Dose 2 MG; Start 08/13/17 at 11:30 Ondansetron HCl (Zofran Inj) 4 mg Q4H PRN IV NAUSEA AND/OR VOMITING Last administered on 08/13/17 16:07; Admin Dose 4 MG; Start 08/13/17 at 11:30 Hydralazine HCl (Apresoline) 10 mg Q6H PRN IV ELEVATED BLOOD PRESSURE Last administered on 08/16/17 01:33; Admin Dose 10 MG; Start 08/13/17 at 14:00 Metoclopramide HCl (Reglan) 10 mg Q8 IV Last administered on 08/22/17 13:27; Admin Dose 10 MG; Start 08/13/17 at 22:00 Pantoprazole (Protonix Tab) 40 mg DAILY@06 PO Last administered on 08/22/17 05:31; Admin Dose 40 MG; Start 08/17/17 at 06:00 Insulin Glargine (Lantus) 5 unit BID SC Last administered on 08/22/17 08:32; Admin Dose 5 UNIT; Start 08/18/17 at 21:00 Megestrol Acetate (Megace Susp) 400 mg DAILY PO Last administered on 08:26; Admin Dose 400 MG; Start 08/20/17 at 09:00 IV Flush 10 ml 10 ml PRN PRN IV IV PROTOCOL; Start 08/21/17 at 19:30 Daptomycin/Sodium Chloride (Cubicin/NS) 100 ml @ 200 mls/hr Q48H IVPB ; Start 08/23/17 at 16:00; Stop 09/20/17 at 23:59 SHAKA SIMPSON MD Aug 22, 2017 18:24
[2017-08-22 20:00] VITALS: BP 123/52; RESP 20
[2017-08-23] MEDS: ACCU-CHEK XX SCH (02:00)
[2017-08-23 02:11] VITALS: BP 104/53; RESP 18
[2017-08-23] MEDS: morphine 2 MG INJ IV PRN ×3 (04:32→19:48)
[2017-08-23] MEDS: PIPER-TAZO 2.25 GM (PMX) 50 ML IVPB SCH ×3 (05:14→21:35)
[2017-08-23] MEDS: PANTOPRAZOLE (EC) 40 MG TAB PO SCH (05:14)
[2017-08-23] MEDS: METOCLOPRAMIDE 10 MG INJ IV SCH ×3 (05:14→21:34)
[2017-08-23 07:00] LABS: CALCIUM 10.8 mg/dl (8.4-10.2); CREATININE 1.66 mg/dl (0.61-1.24)
[2017-08-23] MEDS: INSULIN ASPART [NOVOLOG] 3 ML PEN SC SCH ×4 (08:13→21:00)
[2017-08-23] MEDS: MEGESTROL (40 MG/ML) 10ML CUP PO SCH (08:14)
[2017-08-23] MEDS: AMLODIPINE 5 MG TAB PO SCH (08:14)
[2017-08-23] MEDS: METOPROLOL 50 MG TAB PO SCH ×2 (08:15→21:50)
[2017-08-23] MEDS: MYCOPHENOLATE (SR) 180 MG TAB PO SCH ×2 (08:15→21:35)
[2017-08-23] MEDS: predniSONE 5 MG TAB PO SCH (08:15)
[2017-08-23 08:21] VITALS: BP 146/51; RESP 16
[2017-08-23] MEDS: INSULIN GLARGINE [LANtus] 3 ML PEN SC SCH ×2 (08:22→21:42)
[2017-08-23] MEDS: ENOXAPARIN 30 MG/0.3 ML SYG SC SCH (08:23)
--- NOTE | 2017-08-23 12:39 | CONS ---
Date/Time of Note Date/Time of Note DATE: 08/23/17 TIME: 12:36 Assessment/Plan Assessment/Plan Chief Complaint/Hosp Course assessment/impression - recurrent OM of R 3rd fingertip (XR showed periosteal reaction at the tip of R 3rd distal phalanx, suspicious for OM, MRI showed cellulitis of distal R 4th phalanx, without OM) and L 2nd fingertip (XR showed cortical irregularity at the tuft of L 2nd distal phalanx with overlying soft tissue defect, suggesting early OM, MRI showed OM at L 2nd distal phalanx with, cellulitis about L 2nd distal phalanx without drainable fluid collection.) - h/o OM of R 2nd finger s/p amputation at proximal phalanx neck, and h/o OM of L 3rd finger s/p amputation at middle and distal phalanges - DM - Juan's esophagus and gastritis s/p EGD on 08/12/2017. No H. pylori on Bx - h/o ESRD, was on HD - s/p renal transplant in 2009 (on tacrolimus 3mg bid, mycophenolate 540 mg bid , prednisone 5 mg daily), chronic renal insufficiency at baseline - rheumatoid arthritis - chronic HCV infection - HTN - dyslipidemia - h/o polysubstance and IV drug use. - h/o pernicious anemia. - h/o hyperparathyroidism. recommendations - I recommend renally dosed pip/tazo and daptomycin (08/09/2017-) x6 weeks for his recurrent OM. Suggested end date:09/20/2017. Please order weekly CBC, BMP and CK while Pt's on IV antibiotic at home. CK was 23 on 08/20/2017. Please ensure that Pt gets a follow up appointment with an ID specialist who is contracted with his insurance. 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 Problems: Consultation Date/Type/Reason Admit Date/Time Aug 08, 2017 at 16:53 Initial Consult Date 08/09/17 Type of Consultation: ID Referring Provider: LUPE KAPLAN MD 24 HR Interval Summary Constitutional: no complaints Detailed Summary Eyes: no complaints ENT: no complaints Respiratory: no complaints Cardiovascular: no complaints Gastrointestinal: no complaints Genitourinary: no complaints Musculoskeletal: other (s/p amputation of fingertip of R 2nd and L 3rd), No bone/joint pain, No restricted range of motion Skin: laceration (old lacerations on fingertips) Neurologic: no complaints Exam/Review of Systems Vital Signs Vitals Vital Signs Date Time Temp Pulse Resp B/P Pulse Ox O2 Delivery O2 Flow Rate FiO2 08/23/17 08:21 98.7 77 16 146/51 97 Intake and Output 08/22/17 08/22/17 08/23/17 15:00 23:00 07:00 Intake Total 750 ml 2040 ml 100 ml Output Total 800 ml 800 ml Balance -50 ml 1240 ml 100 ml Exam Constitutional: alert, oriented, well developed Psych: nl mood/affect, no complaints Head: atraumatic, normocephalic Eyes: nl conjunctiva, nl lids ENMT: nl external ears & nose, nl nasal mucosa & septum Neck: supple Musculoskeletal: other (FROM of bilateral fingers) Extremities: No edema 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, nl mental status, nl speech Skin: nl turgor, rash or lesions (old lacerations on the fingertips are clean) Results Result Diagram: 08/22/17 0501 08/23/17 0516 Results 24 hrs Laboratory Tests Test 08/22/17 17:31 08/22/17 20:53 08/23/17 05:16 08/23/17 08:12 Bedside Glucose 141 157 122 Sodium Level 141 Potassium Level 4.0 Chloride Level 107 Carbon Dioxide Level 23 Anion Gap 15 Blood Urea Nitrogen 48 H Creatinine 1.66 H Glucose Level 106 Calcium Level 10.8 H Test 08/23/17 11:58 Bedside Glucose 135 Medications Medications Current Medications Clonidine (Catapres) 0.1 mg Q4H PRN PO ELEVATED BLOOD PRESSURE Last administered on 08/12/17 06:11; Admin Dose 0.1 MG; Start 08/08/17 at 21:00 Metoprolol Tartrate (Lopressor) 50 mg BID PO Last administered on 08/23/17 08 :15; Admin Dose 50 MG; Start 08/08/17 at 21:26 Mycophenolate Sodium (Myfortic) 540 mg BID PO Last administered on 08/23/17 08:15; Admin Dose 540 MG; Start 08/08/17 at 22:00 Prednisone (Prednisone) 5 mg DAILY PO Last administered on 08/23/17 08:15; Admin Dose 5 MG; Start 08/09/17 at 09:00 Diagnostic Test (Pha) (Accu-Chek) 1 ea 02 XX Last administered on 08/22/17 02 :22; Admin Dose 1 EA; Start 08/09/17 at 02:00 Miscellaneous Information 1 ea NOTE XX ; Start 08/08/17 at 21:30 Glucose (Glutose) 15 gm Q15M PRN PO DECREASED GLUCOSE; Start 08/08/17 at 21:30 Glucose (Glutose) 22.5 gm Q15M PRN PO DECREASED GLUCOSE; Start 08/08/17 at 21: 30 Dextrose (D50w Syringe) 25 ml Q15M PRN IV DECREASED GLUCOSE; Start 08/08/17 at 21:30 Dextrose (D50w Syringe) 50 ml Q15M PRN IV DECREASED GLUCOSE; Start 08/08/17 at 21:30 Glucagon (Glucagen) 1 mg Q15M PRN IM DECREASED GLUCOSE; Start 08/08/17 at 21:30 Glucose (Glutose) 15 gm Q15M PRN BUCCAL DECREASED GLUCOSE; Start 08/08/17 at 21 :30 Acetaminophen/ Hydrocodone Bitart ([place] (7.5-325)) 1 tab Q4H PRN PO PAIN LEVEL 4-7 Last administered on 08/22/17 21:28; Admin Dose 1 TAB; Start at 09:30 Amlodipine Besylate 5 mg 5 mg DAILY PO Last administered on 08/23/17 08:14; Admin Dose 5 MG; Start 08/09/17 at 09:30 Piperacillin Sod/ Tazobactam Sod (Zosyn 2.25gm/ 50ml (Pmx)) 50 ml @ 100 mls/hr Q8 IVPB Last administered on 08/23/17 05:14; Admin Dose 100 MLS/HR; Start at 14:30 Enoxaparin Sodium (Lovenox) 30 mg DAILY SC Last administered on 08/22/17 08: 32; Admin Dose 30 MG; Start 08/13/17 at 09:00 Morphine Sulfate (morphine) 2 mg Q4H PRN IV PAIN LEVEL 6-10 Last administered on 08/23/17 11:19; Admin Dose 2 MG; Start 08/13/17 at 11:30 Ondansetron HCl (Zofran Inj) 4 mg Q4H PRN IV NAUSEA AND/OR VOMITING Last administered on 08/13/17 16:07; Admin Dose 4 MG; Start 08/13/17 at 11:30 Hydralazine HCl (Apresoline) 10 mg Q6H PRN IV ELEVATED BLOOD PRESSURE Last administered on 08/16/17 01:33; Admin Dose 10 MG; Start 08/13/17 at 14:00 Metoclopramide HCl (Reglan) 10 mg Q8 IV Last administered on 08/23/17 05:14; Admin Dose 10 MG; Start 08/13/17 at 22:00 Pantoprazole (Protonix Tab) 40 mg DAILY@06 PO Last administered on 08/23/17 05:14; Admin Dose 40 MG; Start 08/17/17 at 06:00 Insulin Glargine (Lantus) 5 unit BID SC Last administered on 08/23/17 08:22; Admin Dose 5 UNIT; Start 08/18/17 at 21:00 Megestrol Acetate (Megace Susp) 400 mg DAILY PO Last administered on 08:26; Admin Dose 400 MG; Start 08/20/17 at 09:00 IV Flush 10 ml 10 ml PRN PRN IV IV PROTOCOL; Start 08/21/17 at 19:30 Daptomycin/Sodium Chloride (Cubicin/NS) 100 ml @ 200 mls/hr Q48H IVPB ; Start 08/23/17 at 16:00; Stop 09/20/17 at 23:59 MAGO VAIL M.D. Aug 23, 2017 12:38
[2017-08-23 14:08] VITALS: BP 172/61; RESP 16
[2017-08-23] MEDS ORDERED: DAPTOMYCIN 250 MG in SOD CHLORIDE 0.9% 100 ML IVPB SCH (16:00)
--- NOTE | 2017-08-23 16:06 | PN ---
Date/Time of Note Date/Time of Note DATE: 08/23/17 TIME: 16:05 Assessment/Plan Lines/Catheters IV Catheter Type (from Nrs): PICC Line Urinary Cath still in place: No Assessment/Plan Assessment/Plan - Right 3rd finger distal osteomyelitis. Left index finger distal phalanx also suggests early osteomyelitis. Continue antibiotics per ID. Dr. Awan is following infection disease consultation. - Juan's esophagus and severe gastritis per EGD on 08/13. Continue Protonix. - Weight loss, abdominal pain and melenic stools. Dr Hartley is following in in gastroenterology consultation. - End-stage renal disease, status post kidney transplant in 2009. Continued on antirejection therapy with baseline creatinine is about 1.5. - Hypertension. Continue Norvasc and metoprolol. - Diabetes mellitus. Continue NovoLog per mild algorithm sliding scale. - Hepatitis C. Further recommendations based on clinical course. Plan of care discussed with Dr. Maier. Exam/Review of Systems Vital Signs Vitals Vital Signs Date Time Temp Pulse Resp B/P Pulse Ox O2 Delivery O2 Flow Rate FiO2 08/23/17 14:08 98.5 16 172/61 98 08/23/17 08:21 77 Intake and Output 08/22/17 08/22/17 08/23/17 15:00 23:00 07:00 Intake Total 750 ml 2040 ml 100 ml Output Total 800 ml 800 ml Balance -50 ml 1240 ml 100 ml Results Result Diagram: 08/22/17 0501 08/23/17 0516 Results 24 hrs Laboratory Tests Test 08/22/17 17:31 08/22/17 20:53 08/23/17 05:16 08/23/17 08:12 Bedside Glucose 141 157 122 Sodium Level 141 Potassium Level 4.0 Chloride Level 107 Carbon Dioxide Level 23 Anion Gap 15 Blood Urea Nitrogen 48 H Creatinine 1.66 H Glucose Level 106 Calcium Level 10.8 H Test 08/23/17 11:58 Bedside Glucose 135 Medications Medications Current Medications Clonidine (Catapres) 0.1 mg Q4H PRN PO ELEVATED BLOOD PRESSURE Last administered on 08/12/17 06:11; Admin Dose 0.1 MG; Start 08/08/17 at 21:00 Metoprolol Tartrate (Lopressor) 50 mg BID PO Last administered on 08/23/17 08 :15; Admin Dose 50 MG; Start 08/08/17 at 21:26 Mycophenolate Sodium (Myfortic) 540 mg BID PO Last administered on 08/23/17 08:15; Admin Dose 540 MG; Start 08/08/17 at 22:00 Prednisone (Prednisone) 5 mg DAILY PO Last administered on 08/23/17 08:15; Admin Dose 5 MG; Start 08/09/17 at 09:00 Diagnostic Test (Pha) (Accu-Chek) 1 ea 02 XX Last administered on 08/22/17 02 :22; Admin Dose 1 EA; Start 08/09/17 at 02:00 Miscellaneous Information 1 ea NOTE XX ; Start 08/08/17 at 21:30 Glucose (Glutose) 15 gm Q15M PRN PO DECREASED GLUCOSE; Start 08/08/17 at 21:30 Glucose (Glutose) 22.5 gm Q15M PRN PO DECREASED GLUCOSE; Start 08/08/17 at 21: 30 Dextrose (D50w Syringe) 25 ml Q15M PRN IV DECREASED GLUCOSE; Start 08/08/17 at 21:30 Dextrose (D50w Syringe) 50 ml Q15M PRN IV DECREASED GLUCOSE; Start 08/08/17 at 21:30 Glucagon (Glucagen) 1 mg Q15M PRN IM DECREASED GLUCOSE; Start 08/08/17 at 21:30 Glucose (Glutose) 15 gm Q15M PRN BUCCAL DECREASED GLUCOSE; Start 08/08/17 at 21 :30 Acetaminophen/ Hydrocodone Bitart ([place] (7.5-325)) 1 tab Q4H PRN PO PAIN LEVEL 4-7 Last administered on 08/22/17 21:28; Admin Dose 1 TAB; Start at 09:30 Amlodipine Besylate 5 mg 5 mg DAILY PO Last administered on 08/23/17 08:14; Admin Dose 5 MG; Start 08/09/17 at 09:30 Piperacillin Sod/ Tazobactam Sod (Zosyn 2.25gm/ 50ml (Pmx)) 50 ml @ 100 mls/hr Q8 IVPB Last administered on 08/23/17 14:49; Admin Dose 100 MLS/HR; Start at 14:30 Enoxaparin Sodium (Lovenox) 30 mg DAILY SC Last administered on 08/22/17 08: 32; Admin Dose 30 MG; Start 08/13/17 at 09:00 Morphine Sulfate (morphine) 2 mg Q4H PRN IV PAIN LEVEL 6-10 Last administered on 08/23/17 11:19; Admin Dose 2 MG; Start 08/13/17 at 11:30 Ondansetron HCl (Zofran Inj) 4 mg Q4H PRN IV NAUSEA AND/OR VOMITING Last administered on 08/13/17 16:07; Admin Dose 4 MG; Start 08/13/17 at 11:30 Hydralazine HCl (Apresoline) 10 mg Q6H PRN IV ELEVATED BLOOD PRESSURE Last administered on 08/16/17 01:33; Admin Dose 10 MG; Start 08/13/17 at 14:00 Metoclopramide HCl (Reglan) 10 mg Q8 IV Last administered on 08/23/17 14:49; Admin Dose 10 MG; Start 08/13/17 at 22:00 Pantoprazole (Protonix Tab) 40 mg DAILY@06 PO Last administered on 08/23/17 05:14; Admin Dose 40 MG; Start 08/17/17 at 06:00 Insulin Glargine (Lantus) 5 unit BID SC Last administered on 08/23/17 08:22; Admin Dose 5 UNIT; Start 08/18/17 at 21:00 Megestrol Acetate (Megace Susp) 400 mg DAILY PO Last administered on 08:26; Admin Dose 400 MG; Start 08/20/17 at 09:00 IV Flush 10 ml 10 ml PRN PRN IV IV PROTOCOL; Start 08/21/17 at 19:30 Daptomycin/Sodium Chloride (Cubicin/NS) 100 ml @ 200 mls/hr Q48H IVPB ; Start 08/23/17 at 16:00; Stop 09/20/17 at 23:59 EIELEN COBURN Aug 23, 2017 16:06
--- NOTE | 2017-08-23 17:28 | CONS ---
Date/Time of Note Date/Time of Note DATE: 08/23/17 TIME: 17:28 Assessment/Plan Assessment/Plan Additional Assessment/Plan 1. Acute Kidney inury on CKD due to Prerenal azotemia and Infection 2. Left finger infection possibel recurrent OM of left finger 3.h/o OM of R 2nd finger s/p amputation at proximal phalanx neck, and h/o OM of L 3rd finger s/p amputation at middle and distal phalanges 4. 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 h/o ESRD, was on HD - s/p renal transplant in 2009 (on tacrolimus 3mg bid, mycophenolate 540 mg bid, prednisone 5 mg daily), mild renal insufficiency at baseline 6. rheumatoid arthritis 7. chronic HCV infection 8. HTN 9. dyslipidemia 10. h/o polysubstance and IV drug use. 11. h/o pernicious anemia. 12. h/o erosive esophagitis and gastritis 13. Hyperkalemia- resolved after prograf stopped Plan: Cr 1.66 if continues to have high Cr then we will give IVF NS IV abx as per ID pt has previously had a full CKD work up - no need to repeat it Continue current Immunosuppression for kidney transplant,( Tacrolimus stoppday on - resumed on 08/20 and again stopped on 08/21/17- continue mycophenolate 540 mg bid, prednisone 5 mg daily) Consultation Date/Type/Reason Admit Date/Time Aug 08, 2017 at 16:53 Initial Consult Date 08/09/17 Type of Consultation: NEPHROLOGY Referring Provider: LUPE KAPLAN MD Exam/Review of Systems Vital Signs Vitals Vital Signs Date Time Temp Pulse Resp B/P Pulse Ox O2 Delivery O2 Flow Rate FiO2 08/23/17 14:08 98.5 16 172/61 98 08/23/17 08:21 77 Intake and Output 08/22/17 08/22/17 08/23/17 14:59 22:59 06:59 Intake Total 750 ml 2040 ml 100 ml Output Total 800 ml 800 ml Balance -50 ml 1240 ml 100 ml Results Result Diagram: 08/22/17 0501 08/23/17 0516 Results 24 hrs Laboratory Tests Test 08/22/17 17:31 08/22/17 20:53 08/23/17 05:16 08/23/17 08:12 Bedside Glucose 141 157 122 Sodium Level 141 Potassium Level 4.0 Chloride Level 107 Carbon Dioxide Level 23 Anion Gap 15 Blood Urea Nitrogen 48 H Creatinine 1.66 H Glucose Level 106 Calcium Level 10.8 H Test 08/23/17 11:58 Bedside Glucose 135 Medications Medications Current Medications Clonidine (Catapres) 0.1 mg Q4H PRN PO ELEVATED BLOOD PRESSURE Last administered on 08/12/17 06:11; Admin Dose 0.1 MG; Start 08/08/17 at 21:00 Metoprolol Tartrate (Lopressor) 50 mg BID PO Last administered on 08/23/17 08 :15; Admin Dose 50 MG; Start 08/08/17 at 21:26 Mycophenolate Sodium (Myfortic) 540 mg BID PO Last administered on 08/23/17 08:15; Admin Dose 540 MG; Start 08/08/17 at 22:00 Prednisone (Prednisone) 5 mg DAILY PO Last administered on 08/23/17 08:15; Admin Dose 5 MG; Start 08/09/17 at 09:00 Diagnostic Test (Pha) (Accu-Chek) 1 ea 02 XX Last administered on 08/22/17 02 :22; Admin Dose 1 EA; Start 08/09/17 at 02:00 Miscellaneous Information 1 ea NOTE XX ; Start 08/08/17 at 21:30 Glucose (Glutose) 15 gm Q15M PRN PO DECREASED GLUCOSE; Start 08/08/17 at 21:30 Glucose (Glutose) 22.5 gm Q15M PRN PO DECREASED GLUCOSE; Start 08/08/17 at 21: 30 Dextrose (D50w Syringe) 25 ml Q15M PRN IV DECREASED GLUCOSE; Start 08/08/17 at 21:30 Dextrose (D50w Syringe) 50 ml Q15M PRN IV DECREASED GLUCOSE; Start 08/08/17 at 21:30 Glucagon (Glucagen) 1 mg Q15M PRN IM DECREASED GLUCOSE; Start 08/08/17 at 21:30 Glucose (Glutose) 15 gm Q15M PRN BUCCAL DECREASED GLUCOSE; Start 08/08/17 at 21 :30 Acetaminophen/ Hydrocodone Bitart ([place] (7.5-325)) 1 tab Q4H PRN PO PAIN LEVEL 4-7 Last administered on 08/22/17 21:28; Admin Dose 1 TAB; Start at 09:30 Amlodipine Besylate 5 mg 5 mg DAILY PO Last administered on 08/23/17 08:14; Admin Dose 5 MG; Start 08/09/17 at 09:30 Piperacillin Sod/ Tazobactam Sod (Zosyn 2.25gm/ 50ml (Pmx)) 50 ml @ 100 mls/hr Q8 IVPB Last administered on 08/23/17 14:49; Admin Dose 100 MLS/HR; Start at 14:30 Enoxaparin Sodium (Lovenox) 30 mg DAILY SC Last administered on 08/22/17 08: 32; Admin Dose 30 MG; Start 08/13/17 at 09:00 Morphine Sulfate (morphine) 2 mg Q4H PRN IV PAIN LEVEL 6-10 Last administered on 08/23/17 11:19; Admin Dose 2 MG; Start 08/13/17 at 11:30 Ondansetron HCl (Zofran Inj) 4 mg Q4H PRN IV NAUSEA AND/OR VOMITING Last administered on 08/13/17 16:07; Admin Dose 4 MG; Start 08/13/17 at 11:30 Hydralazine HCl (Apresoline) 10 mg Q6H PRN IV ELEVATED BLOOD PRESSURE Last administered on 08/16/17 01:33; Admin Dose 10 MG; Start 08/13/17 at 14:00 Metoclopramide HCl (Reglan) 10 mg Q8 IV Last administered on 08/23/17 14:49; Admin Dose 10 MG; Start 08/13/17 at 22:00 Pantoprazole (Protonix Tab) 40 mg DAILY@06 PO Last administered on 08/23/17 05:14; Admin Dose 40 MG; Start 08/17/17 at 06:00 Insulin Glargine (Lantus) 5 unit BID SC Last administered on 08/23/17 08:22; Admin Dose 5 UNIT; Start 08/18/17 at 21:00 Megestrol Acetate (Megace Susp) 400 mg DAILY PO Last administered on 08:26; Admin Dose 400 MG; Start 08/20/17 at 09:00 IV Flush 10 ml 10 ml PRN PRN IV IV PROTOCOL; Start 10/19/17 at 19:30 Daptomycin/Sodium Chloride (Cubicin/NS) 100 ml @ 200 mls/hr Q48H IVPB ; Start 08/23/17 at 16:00; Stop 09/20/17 at 23:59 SHAKA SIMPSON MD Aug 23, 2017 17:28
[2017-08-23 21:00] VITALS: BP 150/60; PULSE 72; RESP 19
[2017-08-24] MEDS: ACCU-CHEK XX SCH (02:00)
[2017-08-24 03:10] VITALS: BP 110/57; PULSE 65; RESP 19
[2017-08-24] MEDS: PIPER-TAZO 2.25 GM (PMX) 50 ML IVPB SCH ×3 (05:46→19:27)
[2017-08-24] MEDS: PANTOPRAZOLE (EC) 40 MG TAB PO SCH (05:47)
[2017-08-24] MEDS: morphine 2 MG INJ IV PRN ×2 (05:48→13:15)
[2017-08-24] MEDS: METOCLOPRAMIDE 10 MG INJ IV SCH ×2 (05:54→14:08)
[2017-08-24 06:21] LABS: BASOPHILS % 1.1 % (0.0-2.0); EOSINOPHILS # 0.1 10^3/ul (0.0-0.5); EOSINOPHILS % 1.3 % (0.0-7.0); HEMATOCRIT 41.6 % (42.0-52.0); HEMOGLOBIN 13.5 g/dl (14.0-18.0); LYMPHOCYTES # 1.2 10^3/ul (0.8-2.9); LYMPHOCYTES % 31.6 % (15.0-51.0); MEAN CORPUSCULAR HEMOGLOBIN 32.6 pg (29.0-33.0); MEAN CORPUSCULAR HGB CONC 32.5 g/dl (32.0-37.0); MEAN CORPUSCULAR VOLUME 100.5 fl (82.0-101.0); MEAN PLATELET VOLUME 11.7 fl (7.4-10.4); MONOCYTE # 0.5 10^3/ul (0.3-0.9); MONOCYTES % 12.6 % (0.0-11.0); NEUTROPHILS % 53.1 % (39.0-77.0); PLATELET COUNT 139 10^3/UL (140-415); RED BLOOD COUNT 4.14 10^6/ul (4.70-6.10); RED CELL DISTRIBUTION WIDTH 11.9 % (11.5-14.5); WHITE BLOOD COUNT 3.7 10^3/ul (4.8-10.8)
[2017-08-24 06:50] LABS: CALCIUM 10.2 mg/dl (8.4-10.2); CREATININE 1.6 mg/dl (0.61-1.24); POTASSIUM 4.2 mmol/L (3.5-5.1)
[2017-08-24 07:53] VITALS: BP 181/87; RESP 16
[2017-08-24] MEDS: INSULIN ASPART [NOVOLOG] 3 ML PEN SC SCH ×3 (08:13→17:35)
[2017-08-24] MEDS: MYCOPHENOLATE (SR) 180 MG TAB PO SCH (08:14)
[2017-08-24] MEDS: MEGESTROL (40 MG/ML) 10ML CUP PO SCH (08:14)
[2017-08-24] MEDS: METOPROLOL 50 MG TAB PO SCH (08:15)
[2017-08-24] MEDS: AMLODIPINE 5 MG TAB PO SCH (08:16)
[2017-08-24] MEDS: predniSONE 5 MG TAB PO SCH (08:16)
[2017-08-24] MEDS: INSULIN GLARGINE [LANtus] 3 ML PEN SC SCH (08:26)
[2017-08-24] MEDS: ENOXAPARIN 30 MG/0.3 ML SYG SC SCH (08:27)
--- NOTE | 2017-08-24 10:53 | CONS ---
Date/Time of Note Date/Time of Note DATE: 08/24/17 TIME: 10:51 Assessment/Plan Assessment/Plan Chief Complaint/Hosp Course assessment/impression - recurrent OM of R 3rd fingertip (XR showed periosteal reaction at the tip of R 3rd distal phalanx, suspicious for OM, MRI showed cellulitis of distal R 4th phalanx, without OM) and L 2nd fingertip (XR showed cortical irregularity at the tuft of L 2nd distal phalanx with overlying soft tissue defect, suggesting early OM, MRI showed OM at L 2nd distal phalanx with, cellulitis about L 2nd distal phalanx without drainable fluid collection.) - h/o OM of R 2nd finger s/p amputation at proximal phalanx neck, and h/o OM of L 3rd finger s/p amputation at middle and distal phalanges - DM - Juan's esophagus and gastritis s/p EGD on 08/12/2017. No H. pylori on Bx - h/o ESRD, was on HD - s/p renal transplant in 2009 (on tacrolimus 3mg bid, mycophenolate 540 mg bid , prednisone 5 mg daily), chronic renal insufficiency at baseline - rheumatoid arthritis - chronic HCV infection - HTN - dyslipidemia - h/o polysubstance and IV drug use. - h/o pernicious anemia. - h/o hyperparathyroidism. recommendations - I recommend renally dosed pip/tazo and daptomycin (08/09/2017-) x6 weeks for his recurrent OM. Suggested end date:09/20/2017. Please order weekly CBC, BMP and CK while Pt's on IV antibiotic at home. CK was 23 on 08/20/2017. Please ensure that Pt gets a follow up appointment with an ID specialist who is contracted with his insurance. 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 Problems: Consultation Date/Type/Reason Admit Date/Time Aug 08, 2017 at 16:53 Initial Consult Date 08/09/17 Type of Consultation: ID Referring Provider: LUPE KAPLAN MD 24 HR Interval Summary Constitutional: improved, no complaints Detailed Summary Eyes: no complaints Respiratory: no complaints Cardiovascular: no complaints Gastrointestinal: no complaints Genitourinary: no complaints, No dysuria Musculoskeletal: other (FROM of fingers), No bone/joint pain, No swelling Skin: no complaints, skin lesions (old lacerations on fingertips are non- painful) Neurologic: no complaints Exam/Review of Systems Vital Signs Vitals Vital Signs Date Time Temp Pulse Resp B/P Pulse Ox O2 Delivery O2 Flow Rate FiO2 08/24/17 07:53 98.3 64 16 181/87 100 08/24/17 03:10 Room Air Intake and Output 08/23/17 08/23/17 08/24/17 15:00 23:00 07:00 Intake Total 1600 ml 920 ml 850 ml Output Total 800 ml 1100 ml 1200 ml Balance 800 ml -180 ml -350 ml Exam Constitutional: alert, oriented, well developed Psych: nl mood/affect, no complaints Head: atraumatic, normocephalic Eyes: nl conjunctiva, nl lids ENMT: nl external ears & nose, nl nasal mucosa & septum Neck: supple Musculoskeletal: other (s/p amputation of R 2nd and L 3rd fingertips), range of motion (full), No joint tenderness, No swelling Extremities: normal pulses, other (AVF in LUE), No edema Results Result Diagram: 08/24/1751708/24/17517 Results 24 hrs Laboratory Tests Test 08/23/17 11:58 08/23/17 17:29 08/23/17 21:33 08/24/17 05:18 Bedside Glucose 135 219 151 White Blood Count 3.7 L Red Blood Count 4.14 L Hemoglobin 13.5 L Hematocrit 41.6 L Mean Corpuscular Volume 100.5 Mean Corpuscular Hemoglobin 32.6 Mean Corpuscular Hemoglobin Concent 32.5 Red Cell Distribution Width 11.9 Platelet Count 139 L Mean Platelet Volume 11.7 H Neutrophils % 53.1 Lymphocytes % 31.6 Monocytes % 12.6 H Eosinophils % 1.3 Basophils % 1.1 Nucleated Red Blood Cells % 0.0 Neutrophils # 2.0 Lymphocytes # 1.2 Monocytes # 0.5 Eosinophils # 0.1 Basophils # 0.0 Nucleated Red Blood Cells # 0.0 Sodium Level 140 Potassium Level 4.2 Chloride Level 107 Carbon Dioxide Level 23 Anion Gap 14 Blood Urea Nitrogen 44 H Creatinine 1.60 H Glucose Level 104 Calcium Level 10.2 Test 08/24/17 08:12 Bedside Glucose 110 Medications Medications Current Medications Clonidine (Catapres) 0.1 mg Q4H PRN PO ELEVATED BLOOD PRESSURE Last administered on 08/12/17 06:11; Admin Dose 0.1 MG; Start 08/08/17 at 21:00 Metoprolol Tartrate (Lopressor) 50 mg BID PO Last administered on 08/24/17 08 :15; Admin Dose 50 MG; Start 08/08/17 at 21:26 Mycophenolate Sodium (Myfortic) 540 mg BID PO Last administered on 08/24/17 08:14; Admin Dose 540 MG; Start 08/08/17 at 22:00 Prednisone (Prednisone) 5 mg DAILY PO Last administered on 08/24/17 08:16; Admin Dose 5 MG; Start 08/09/17 at 09:00 Diagnostic Test (Pha) (Accu-Chek) 1 ea 02 XX Last administered on 08/22/17 02 :22; Admin Dose 1 EA; Start 08/09/17 at 02:00 Miscellaneous Information 1 ea NOTE XX ; Start 08/08/17 at 21:30 Glucose (Glutose) 15 gm Q15M PRN PO DECREASED GLUCOSE; Start 08/08/17 at 21:30 Glucose (Glutose) 22.5 gm Q15M PRN PO DECREASED GLUCOSE; Start 08/08/17 at 21: 30 Dextrose (D50w Syringe) 25 ml Q15M PRN IV DECREASED GLUCOSE; Start 08/08/17 at 21:30 Dextrose (D50w Syringe) 50 ml Q15M PRN IV DECREASED GLUCOSE; Start 08/08/17 at 21:30 Glucagon (Glucagen) 1 mg Q15M PRN IM DECREASED GLUCOSE; Start 08/08/17 at 21:30 Glucose (Glutose) 15 gm Q15M PRN BUCCAL DECREASED GLUCOSE; Start 08/08/17 at 21 :30 Acetaminophen/ Hydrocodone Bitart ([place] (7.5-325)) 1 tab Q4H PRN PO PAIN LEVEL 4-7 Last administered on 08/22/17 21:28; Admin Dose 1 TAB; Start at 09:30 Amlodipine Besylate 5 mg 5 mg DAILY PO Last administered on 08/24/17 08:16; Admin Dose 5 MG; Start 08/09/17 at 09:30 Piperacillin Sod/ Tazobactam Sod (Zosyn 2.25gm/ 50ml (Pmx)) 50 ml @ 100 mls/hr Q8 IVPB Last administered on 08/24/17 05:46; Admin Dose 100 MLS/HR; Start at 14:30 Enoxaparin Sodium (Lovenox) 30 mg DAILY SC Last administered on 08/24/17 08: 27; Admin Dose 30 MG; Start 08/13/17 at 09:00 Morphine Sulfate (morphine) 2 mg Q4H PRN IV PAIN LEVEL 6-10 Last administered on 08/24/17 05:48; Admin Dose 2 MG; Start 08/13/17 at 11:30 Ondansetron HCl (Zofran Inj) 4 mg Q4H PRN IV NAUSEA AND/OR VOMITING Last administered on 08/13/17 16:07; Admin Dose 4 MG; Start 08/13/17 at 11:30 Hydralazine HCl (Apresoline) 10 mg Q6H PRN IV ELEVATED BLOOD PRESSURE Last administered on 08/16/17 01:33; Admin Dose 10 MG; Start 08/13/17 at 14:00 Metoclopramide HCl (Reglan) 10 mg Q8 IV Last administered on 08/23/17 21:34; Admin Dose 10 MG; Start 08/13/17 at 22:00 Pantoprazole (Protonix Tab) 40 mg DAILY@06 PO Last administered on 08/24/17 05:47; Admin Dose 40 MG; Start 08/17/17 at 06:00 Insulin Glargine (Lantus) 5 unit BID SC Last administered on 08/24/17 08:26; Admin Dose 5 UNIT; Start 08/18/17 at 21:00 Megestrol Acetate (Megace Susp) 400 mg DAILY PO Last administered on 08:14; Admin Dose 400 MG; Start 08/20/17 at 09:00 IV Flush 10 ml 10 ml PRN PRN IV IV PROTOCOL; Start 08/21/17 at 19:30 Daptomycin/Sodium Chloride (Cubicin/NS) 100 ml @ 200 mls/hr Q48H IVPB Last administered on 08/23/17 19:48; Admin Dose 200 MLS/HR; Start 08/23/17 at 16: 00; Stop 09/20/17 at 23:59 MAGO VAIL M.D. Aug 24, 2017 10:53
--- NOTE | 2017-08-24 12:14 | CONS ---
Date/Time of Note Date/Time of Note DATE: 08/24/17 TIME: 12:11 Assessment/Plan Assessment/Plan Additional Assessment/Plan 1. Acute Kidney inury on CKD due to Prerenal azotemia and Infection 2. Left finger infection possibel recurrent OM of left finger 3.h/o OM of R 2nd finger s/p amputation at proximal phalanx neck, and h/o OM of L 3rd finger s/p amputation at middle and distal phalanges 4. 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 h/o ESRD, was on HD - s/p renal transplant in 2009 (on tacrolimus 3mg bid, mycophenolate 540 mg bid, prednisone 5 mg daily), mild renal insufficiency at baseline 6. rheumatoid arthritis 7. chronic HCV infection 8. HTN 9. dyslipidemia 10. h/o polysubstance and IV drug use. 11. h/o pernicious anemia. 12. h/o erosive esophagitis and gastritis 13. Hyperkalemia- resolved after prograf stopped Plan: Cr 1.66- will give NS at 60 cc/hr x 2 liter then stop IV abx as per ID pt has previously had a full CKD work up - no need to repeat it Continue current Immunosuppression for kidney transplant,( Tacrolimus stoppday on - resumed on 08/20 and again stopped on 08/21/17- continue mycophenolate 540 mg bid, prednisone 5 mg daily) Will follow up Consultation Date/Type/Reason Admit Date/Time Aug 08, 2017 at 16:53 Initial Consult Date 08/09/17 Type of Consultation: NEPHROLOGY Referring Provider: LUPE KAPLAN MD 24 HR Interval Summary Free Text/Dictation Cr remains elevaed 1.6, Bp stable Exam/Review of Systems Vital Signs Vitals Vital Signs Date Time Temp Pulse Resp B/P Pulse Ox O2 Delivery O2 Flow Rate FiO2 08/24/17 07:53 98.3 64 16 181/87 100 08/24/17 03:10 Room Air Intake and Output 08/23/17 08/23/17 08/24/17 15:00 23:00 07:00 Intake Total 1600 ml 920 ml 850 ml Output Total 800 ml 1100 ml 1200 ml Balance 800 ml -180 ml -350 ml Exam Constitutional: alert Respiratory: clear to auscultation, diminished breath sounds, normal air movement Cardiovascular: nl pulses, regular rate and rhythm Gastrointestinal: non-tender, soft Musculoskeletal: nl extremities to inspection, other ((left finger swelling )) 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: MAINTENANCE CONSTRUCTION HEL[employer] II-XII intact, nl mental status, nl speech Results Result Diagram: 08/24/1751708/24/17517 Results 24 hrs Laboratory Tests Test 08/23/17 17:29 08/23/17 21:33 08/24/17 05:18 08/24/17 08:12 Bedside Glucose 219 151 110 White Blood Count 3.7 L Red Blood Count 4.14 L Hemoglobin 13.5 L Hematocrit 41.6 L Mean Corpuscular Volume 100.5 Mean Corpuscular Hemoglobin 32.6 Mean Corpuscular Hemoglobin Concent 32.5 Red Cell Distribution Width 11.9 Platelet Count 139 L Mean Platelet Volume 11.7 H Neutrophils % 53.1 Lymphocytes % 31.6 Monocytes % 12.6 H Eosinophils % 1.3 Basophils % 1.1 Nucleated Red Blood Cells % 0.0 Neutrophils # 2.0 Lymphocytes # 1.2 Monocytes # 0.5 Eosinophils # 0.1 Basophils # 0.0 Nucleated Red Blood Cells # 0.0 Sodium Level 140 Potassium Level 4.2 Chloride Level 107 Carbon Dioxide Level 23 Anion Gap 14 Blood Urea Nitrogen 44 H Creatinine 1.60 H Glucose Level 104 Calcium Level 10.2 Medications Medications Current Medications Clonidine (Catapres) 0.1 mg Q4H PRN PO ELEVATED BLOOD PRESSURE Last administered on 08/12/17 06:11; Admin Dose 0.1 MG; Start 08/08/17 at 21:00 Metoprolol Tartrate (Lopressor) 50 mg BID PO Last administered on 08/24/17 08 :15; Admin Dose 50 MG; Start 08/08/17 at 21:26 Mycophenolate Sodium (Myfortic) 540 mg BID PO Last administered on 08/24/17 08:14; Admin Dose 540 MG; Start 08/08/17 at 22:00 Prednisone (Prednisone) 5 mg DAILY PO Last administered on 08/24/17 08:16; Admin Dose 5 MG; Start 08/09/17 at 09:00 Diagnostic Test (Pha) (Accu-Chek) 1 ea 02 XX Last administered on 08/22/17 02 :22; Admin Dose 1 EA; Start 08/09/17 at 02:00 Miscellaneous Information 1 ea NOTE XX ; Start 08/08/17 at 21:30 Glucose (Glutose) 15 gm Q15M PRN PO DECREASED GLUCOSE; Start 08/08/17 at 21:30 Glucose (Glutose) 22.5 gm Q15M PRN PO DECREASED GLUCOSE; Start 08/08/17 at 21: 30 Dextrose (D50w Syringe) 25 ml Q15M PRN IV DECREASED GLUCOSE; Start 08/08/17 at 21:30 Dextrose (D50w Syringe) 50 ml Q15M PRN IV DECREASED GLUCOSE; Start 08/08/17 at 21:30 Glucagon (Glucagen) 1 mg Q15M PRN IM DECREASED GLUCOSE; Start 08/08/17 at 21:30 Glucose (Glutose) 15 gm Q15M PRN BUCCAL DECREASED GLUCOSE; Start 08/08/17 at 21 :30 Acetaminophen/ Hydrocodone Bitart ([place] (7.5-325)) 1 tab Q4H PRN PO PAIN LEVEL 4-7 Last administered on 08/22/17 21:28; Admin Dose 1 TAB; Start at 09:30 Amlodipine Besylate 5 mg 5 mg DAILY PO Last administered on 08/24/17 08:16; Admin Dose 5 MG; Start 08/09/17 at 09:30 Piperacillin Sod/ Tazobactam Sod (Zosyn 2.25gm/ 50ml (Pmx)) 50 ml @ 100 mls/hr Q8 IVPB Last administered on 08/24/17 05:46; Admin Dose 100 MLS/HR; Start at 14:30 Enoxaparin Sodium (Lovenox) 30 mg DAILY SC Last administered on 08/24/17 08: 27; Admin Dose 30 MG; Start 08/13/17 at 09:00 Morphine Sulfate (morphine) 2 mg Q4H PRN IV PAIN LEVEL 6-10 Last administered on 08/24/17 05:48; Admin Dose 2 MG; Start 08/13/17 at 11:30 Ondansetron HCl (Zofran Inj) 4 mg Q4H PRN IV NAUSEA AND/OR VOMITING Last administered on 08/13/17 16:07; Admin Dose 4 MG; Start 08/13/17 at 11:30 Hydralazine HCl (Apresoline) 10 mg Q6H PRN IV ELEVATED BLOOD PRESSURE Last administered on 08/16/17 01:33; Admin Dose 10 MG; Start 08/13/17 at 14:00 Metoclopramide HCl (Reglan) 10 mg Q8 IV Last administered on 08/23/17 21:34; Admin Dose 10 MG; Start 08/13/17 at 22:00 Pantoprazole (Protonix Tab) 40 mg DAILY@06 PO Last administered on 08/24/17 05:47; Admin Dose 40 MG; Start 08/17/17 at 06:00 Insulin Glargine (Lantus) 5 unit BID SC Last administered on 08/24/17 08:26; Admin Dose 5 UNIT; Start 08/18/17 at 21:00 Megestrol Acetate (Megace Susp) 400 mg DAILY PO Last administered on 08:14; Admin Dose 400 MG; Start 08/20/17 at 09:00 IV Flush 10 ml 10 ml PRN PRN IV IV PROTOCOL; Start 08/21/17 at 19:30 Daptomycin/Sodium Chloride (Cubicin/NS) 100 ml @ 200 mls/hr Q48H IVPB Last administered on 08/23/17 19:48; Admin Dose 200 MLS/HR; Start 08/23/17 at 16: 00; Stop 09/20/17 at 23:59 SHAKA SIMPSON MD Aug 24, 2017 12:14
[2017-08-24] MEDS ORDERED: SOD CHLORIDE 0.9% 1,000 ML IV SCH (12:30)
[2017-08-24 16:06] VITALS: BP 187/86; RESP 16
--- NOTE | 2017-08-24 18:26 | PDOCDIS ---
Discharge Instructions HOME CARE INSTRUCTIONS: Special Diet: 1800 ADA FOLLOW UP/APPOINTMENTS Follow-up Plan FU with Primary x 1 week FU with nephrology as recommended. FU with infection disease as recommended. Call 911 or go to the nearest hospital if symptoms get worse. Patient and family verbalized understanding dc instructions. [facility]/ staff EILEEN COBURN Aug 24, 2017 18:26
[2017-08-24] MEDS ORDERED: MEGE400O4 PO (18:34)
[2017-08-24] MEDS ORDERED: PRED20TA PO (18:34)
--- NOTE | 2017-08-24 18:39 | DS ---
Date/Time of Note Date/Time of Note DATE: 08/24/17 TIME: 18:39 Discharge Summary Admission/Discharge Info Admit Date/Time Aug 08, 2017 at 16:53 Discharge Date/Time Hospital Course assessment/impression - recurrent OM of R 3rd fingertip (XR showed periosteal reaction at the tip of R 3rd distal phalanx, suspicious for OM, MRI showed cellulitis of distal R 4th phalanx, without OM) and L 2nd fingertip (XR showed cortical irregularity at the tuft of L 2nd distal phalanx with overlying soft tissue defect, suggesting early OM, MRI showed OM at L 2nd distal phalanx with, cellulitis about L 2nd distal phalanx without drainable fluid collection.) - h/o OM of R 2nd finger s/p amputation at proximal phalanx neck, and h/o OM of L 3rd finger s/p amputation at middle and distal phalanges - DM - Juan's esophagus and gastritis s/p EGD on 08/12/2017. No H. pylori on Bx - h/o ESRD, was on HD - s/p renal transplant in 2009 (on tacrolimus 3mg bid, mycophenolate 540 mg bid , prednisone 5 mg daily), chronic renal insufficiency at baseline - rheumatoid arthritis - chronic HCV infection - HTN - dyslipidemia - h/o polysubstance and IV drug use. - h/o pernicious anemia. - h/o hyperparathyroidism. recommendations - I recommend renally dosed pip/tazo and daptomycin (08/09/2017-) x6 weeks for his recurrent OM. Suggested end date:09/20/2017. Please order weekly CBC, BMP and CK while Pt's on IV antibiotic at home. CK was 23 on 08/20/2017. Please ensure that Pt gets a follow up appointment with an ID specialist who is contracted with his insurance. 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 Home Meds Active Scripts Megestrol Acetate (Megestrol Acetate) 400 Mg/10 Ml Oral.susp, 400 MG PO DAILY for 30 Days Prov:EILEEN COBURN 08/24/17 Prednisone* (Prednisone*) 20 Mg Tab, 5 MG PO DAILY for 30 Days, TAB Prov:EILEEN COBURN 08/24/17 Famotidine* (Famotidine*) 20 Mg Tablet, 20 MG PO BID, #60 TAB Prov:CALIN RODRIGUEZA 05/09/17 Tacrolimus* (Prograf*) 0.5 Mg Capsule, 3 MG PO BID for 30 Days, CAP Prov:ERICA RODRIGUEZLANA 05/09/17 Prednisone* (Prednisone*) 5 Mg Tab, 5 MG PO DAILY for 30 Days, TAB Prov:ERICA RODRIGUEZLANA 05/09/17 Mycophenolate Sodium* (Myfortic*) 180 Mg Tab, 540 MG PO BID for 30 Days, TAB Prov:JENNIFER,LETI 05/09/17 Hydrocodone/Acetaminophen ([place] 5-325 Tablet) 1 Each Tablet, 1 TAB PO Q6H Y for PAIN, #30 TAB Prov:KENDRICK RODRIGUEZETLANA 05/09/17 Metoprolol Tartrate* (Lopressor*) 50 Mg Tab, 50 MG PO BID, #60 TAB Prov:GONZALO CR SECOND CHEF 04/14/15 Reported Medications Insulin Glargine* (Lantus*) 100 Unit/Ml Soln, 5 UNIT SC BID, #1 VIAL 04/28/16 Clonidine Hcl* (Clonidine Hcl*) 0.1 Mg Tab, 0.1 MG PO Q4H Y for ELEVATED BLOOD PRESSURE, TAB PRN FOR SBP>160 06/03/14 Follow-up Plan FU with Primary x 1 week FU with nephrology as recommended. FU with infection disease as recommended. Call 911 or go to the nearest hospital if symptoms get worse. Patient and family verbalized understanding dc instructions. Dw Dr Sloan/ staff Primary Care Provider Zeus Doan Pending Labs Laboratory Tests Test 08/23/17 21:33 08/24/17 05:18 08/24/17 08:12 08/24/17 12:22 Bedside Glucose 151mg/dL (70-220) 110mg/dL (70-220) 151mg/dL (70-220) White Blood Count 3.710^3/ul (4.8-10.8) Red Blood Count 4.1410^6/ul (4.70-6.10) Hemoglobin 13.5g/dl (14.0-18.0) Hematocrit 41.6% (42.0-52.0) Mean Corpuscular Volume 100.5fl (82.0-101.0) Mean Corpuscular Hemoglobin 32.6pg (29.0-33.0) Mean Corpuscular Hemoglobin Concent 32.5g/dl (32.0-37.0) Red Cell Distribution Width 11.9% (11.5-14.5) Platelet Count 16393^3/UL (140-415) Mean Platelet Volume 11.7fl (7.4-10.4) Neutrophils % 53.1% (39.0-77.0) Lymphocytes % 31.6% (15.0-51.0) Monocytes % 12.6% (0.0-11.0) Eosinophils % 1.3% (0.0-7.0) Basophils % 1.1% (0.0-2.0) Nucleated Red Blood Cells % 0.0/100WBC (0.0-0.0) Neutrophils # 2.010^3/ul (1.6-7.5) Lymphocytes # 1.210^3/ul (0.8-2.9) Monocytes # 0.510^3/ul (0.3-0.9) Eosinophils # 0.110^3/ul (0.0-0.5) Basophils # 0.010^3/ul (0.0-0.1) Nucleated Red Blood Cells # 0.010^3/ul (0.0-0.0) Sodium Level 140mmol/L (135-144) Potassium Level 4.2mmol/L (3.5-5.1) Chloride Level 107mmol/L (97-110) Carbon Dioxide Level 23mmol/L (21-31) Anion Gap 14 (8-16) Blood Urea Nitrogen 44mg/dl (7-20) Creatinine 1.60mg/dl (0.61-1.24) Glucose Level 104mg/dl (70-220) Calcium Level 10.2mg/dl (8.4-10.2) Test 08/24/17 17:28 Bedside Glucose 147mg/dL (70-220) EILEEN COBURN Aug 24, 2017 18:39
== END 2017-08-24 21:00 | disposition home health service (06) | DRG 540 ==
LOC: FTE 13:34 → MS2 16:53
PROVIDERS: ADMIT Internal Medicine; ATTEND Internal Medicine
PROC: 02HV33Z Insertion of Infusion Device into Superior Vena Cava, Percutaneous Approach (ICD-10-PCS; 2017-08-08)
PROC: 0DB68ZX Excision of Stomach, Via Natural or Artificial Opening Endoscopic, Diagnostic (ICD-10-PCS; 2017-08-12)
PROC: 0DB58ZX Excision of Esophagus, Via Natural or Artificial Opening Endoscopic, Diagnostic (ICD-10-PCS; principal; 2017-08-12 09:30)
DX: M86.8X8 Other osteomyelitis, other site (principal); N17.9 Acute kidney failure, unspecified; R64 Cachexia; E11.21 Type 2 diabetes mellitus with diabetic nephropathy; Z94.0 Kidney transplant status; Z68.1 Body mass index [BMI] 19.9 or less, adult; K92.1 Melena; E87.5 Hyperkalemia; L03.011 Cellulitis of right finger; L03.012 Cellulitis of left finger; E78.5 Hyperlipidemia, unspecified; Z87.891 Personal history of nicotine dependence; Z79.4 Long term (current) use of insulin; Z79.52 Long term (current) use of systemic steroids; E11.22 Type 2 diabetes mellitus with diabetic chronic kidney disease; I12.9 Hypertensive chronic kidney disease with stage 1 through stage 4 chronic kidney disease, or unspecified chronic kidney disease; N18.9 Chronic kidney disease, unspecified; M06.9 Rheumatoid arthritis, unspecified; Z89.022 Acquired absence of left finger(s); Z89.021 Acquired absence of right finger(s); B19.20 Unspecified viral hepatitis C without hepatic coma; K29.70 Gastritis, unspecified, without bleeding; K22.70 Barrett's esophagus without dysplasia
CPT/HCPCS: 36415; 36569; 71010; 73218; 74176; 76937; 80048; 80053; 80197; 81001; 82550; 82565; 82962; 83036; 83605; 83735; 84100; 84484; 84520; 85025; 85610; 85651; 85730; 87040; 88305; 88312; 88313; 93005; 94640; 94664; 96365; 96366; 96368; 96375; J1940; C9113; J0360; J0610; J0692; J1200; J1650; J1815; J2001; J2060; J2270; J2405; J2543; J2765; J3010; J3370; J7030; J7507; J7512

== ENCOUNTER 2017-09-20 14:24 | Emergency (ER) | payer OTHER ==
[~2017-09-20] VITALS: Ht 167.6 cm; Wt 48.6 kg
[~2017-09-20 14:24] MED LIST changes: +MEGE400O4 PO; -NIFE30TA66 PO; +PRED20TA PO
[2017-09-20 14:29] VITALS: Ht 167.6 cm; Wt 48.6 kg
[2017-09-20 14:58] LABS: ABNORMAL IP MESSAGE 1; BASOPHILS % 0.7 % (0.0-2.0); HEMATOCRIT 42.2 % (42.0-52.0); HEMOGLOBIN 13.9 g/dl (14.0-18.0); LYMPHOCYTES # 0.3 10^3/ul (0.8-2.9); MEAN CORPUSCULAR HEMOGLOBIN 33.7 pg (29.0-33.0); MEAN CORPUSCULAR HGB CONC 32.9 g/dl (32.0-37.0); MEAN CORPUSCULAR VOLUME 102.2 fl (82.0-101.0); MEAN PLATELET VOLUME 11.2 fl (7.4-10.4); MONOCYTE # 0.2 10^3/ul (0.3-0.9); NEUTROPHIL # 2.5 10^3/ul (1.6-7.5); PLATELET COUNT 145 10^3/UL (140-415); POSITIVE DIFF @See below; RED BLOOD COUNT 4.13 10^6/ul (4.70-6.10)
[2017-09-20 15:14] LABS: INR 1.01; PARTIAL THROMBOPLASTIN TIME 26.9 Sec (25.0-35.0); PROTIME 13.3 Sec (12.2-14.2)
[2017-09-20 15:22] LABS: BILIRUBIN,INDIRECT 0.1 mg/dl (0-1.1); BILIRUBIN,TOTAL 0.1 mg/dl (0.2-1.3); CALCIUM 10.2 mg/dl (8.4-10.2)
[2017-09-20 15:25] LABS: TOTAL PROTEIN 7.1 g/dl (6.1-8.1)
[2017-09-20 15:29] LABS: ALBUMIN/GLOBULIN RATIO 1.29; CREATININE 1.78 mg/dl (0.61-1.24)
[2017-09-20 15:32] LABS: TROPONIN-I 0.027 ng/ml (0.00-0.12)
--- NOTE | 2017-09-20 15:38 | RADRPT ---
PROCEDURE: Chest radiograph CLINICAL INDICATION: Possible Sepsis. COMPARISON: Radiograph 04/28/2016. TECHNIQUE: Single frontal chest radiograph. FINDINGS: Right PICC terminates in the superior vena cava. Calcified granuloma within the left lower lung. 6 mm nodule in the right mid lung. No pleural effusion or focal parenchymal opacity. The cardiomediastinal silhouette is normal. No suspicious bone lesion. Surgical clips within the lower right neck. IMPRESSION: 6 mm nodule in the right mid lung. Chest CT should be considered for further evaluation. RPTAT: PP Physician Pam Date Time Electronically viewed and signed by Physician Pam on 09/20/2017 15:38 LG/
[2017-09-20 16:05] LABS: ADD UMIC YES; UR ASCORBIC ACID NEGATIVE (NEGATIVE); UR BILIRUBIN (Dip) NEGATIVE (NEGATIVE); UR BLOOD (Dip) NEGATIVE (NEGATIVE); UR CLARITY CLEAR (CLEAR); UR COLOR YELLOW (YELLOW); UR GLUCOSE (Dip) 3+ mg/dL (NEGATIVE); UR KETONES (Dip) NEGATIVE (NEGATIVE); UR LEUKOCYTE ESTERASE (Dip) NEGATIVE Leu/ul (NEGATIVE); UR NITRITE (Dip) NEGATIVE (NEGATIVE); UR RBC 0 /HPF (0-5); UR SPECIFIC GRAVITY (Dip) 1.023 (1.003-1.030); UR TOTAL PROTEIN (Dip) 2+ mg/dl (NEGATIVE); UR UROBILINOGEN (Dip) NEGATIVE (NEGATIVE)
--- NOTE | 2017-09-20 16:11 | ERD ---
ER Documentation Chief Complaint Chief Complaint Complains of weakness Hx of Dialysis HPI 56-year-old male presents the emergency department complaining of generalized weakness. Patient has a long-standing history of a renal transplant, he is no longer on dialysis. He states that recently has been receiving IV antibiotics through his PICC line for osteomyelitis of his finger. This is been ongoing for a long time now. He presents the emergency department complaining of generalized, but not focal weakness. He reports no fevers or chills, cough or shortness of breath, vomiting or abdominal pain, urinary symptoms. His symptoms are generally nonspecific. ROS All systems reviewed and are negative except as per history of present illness. Medications Home Meds Active Scripts Megestrol Acetate (Megestrol Acetate) 400 Mg/10 Ml Oral.susp, 400 MG PO DAILY for 30 Days Prov:EILEEN COBURN 08/24/17 Famotidine* (Famotidine*) 20 Mg Tablet, 20 MG PO BID, #60 TAB Prov:LETI RODRIGUEZ 05/09/17 Tacrolimus* (Prograf*) 0.5 Mg Capsule, 3 MG PO BID for 30 Days, CAP Prov:LETI RODRIGUEZ 05/09/17 Mycophenolate Sodium* (Myfortic*) 180 Mg Tab, 540 MG PO BID for 30 Days, TAB Prov:LETI RODRIGUEZ 05/09/17 Hydrocodone/Acetaminophen ([place] 5-325 Tablet) 1 Each Tablet, 1 TAB PO Q6H Y for PAIN, #30 TAB Prov:LETI RODRIGUEZ 05/09/17 Metoprolol Tartrate* (Lopressor*) 50 Mg Tab, 50 MG PO BID, #60 TAB Prov:GONZALO CR NP 04/14/15 Reported Medications Insulin Glargine* (Lantus*) 100 Unit/Ml Soln, 5 UNIT SC BID, #1 VIAL 04/28/16 Clonidine Hcl* (Clonidine Hcl*) 0.1 Mg Tab, 0.1 MG PO Q4H Y for ELEVATED BLOOD PRESSURE, TAB PRN FOR SBP>160 06/03/14 Discontinued Scripts Prednisone* (Prednisone*) 20 Mg Tab, 5 MG PO DAILY for 30 Days, TAB Prov:EILEEN COBURN 08/24/17 Prednisone* (Prednisone*) 5 Mg Tab, 5 MG PO DAILY for 30 Days, TAB Prov:LETI RODRIGUEZ 05/09/17 Allergies Allergies: Coded Allergies: magnesium (Verified Allergy, Intermediate, 08/08/17) NUMBNESS AND HOT FUSHES PMhx/Soc History of Surgery: Yes (FINGER SX, kidney transplant ) Anesthesia Reaction: No Hx 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 Disorder: No Hx Respiratory Disorders: No Hx Cardiac Disorders: Yes (HTN) Hx Psychiatric Problems: No Hx Alcohol Use: No Hx Substance Use: Yes (MARIJUANA) Hx Tobacco Use: No Smoking Status: Never smoker FmHx Noncontributory for chief complaint Physical Exam Vitals Vital Signs Date Time Temp Pulse Resp B/P Pulse Ox O2 Delivery O2 Flow Rate FiO2 09/20/17 15:33 67 17 97/73 100 Room Air 09/20/17 14:45 Nasal Cannula 09/20/17 14:29 97.1 122 20 132/75 80 Physical Exam GENERAL: Patient is chronically cachectic but in no acute distress HEENT: Pupils equal, round, and reactive to light. EOMI. There is no scleral icterus. Well-hydrated NECK: C-spine is soft and supple, there is no meningismus. There is no cervical lymphadenopathy. LUNGS: Clear to auscultation bilaterally. There are no rales, wheezes or rhonchi. HEART: Regular rate and rhythm, no murmurs, clicks, rubs or gallops. ABDOMEN: Soft, non-tender, non-distended. There are bowel sounds in all four quadrants. No rebound or guarding. EXTREMITIES: There is no peripheral cyanosis or edema. No focal swelling or erythema. Left upper extremity dialysis grafts are noted. No obvious bruit, thrill or evidence of infection NEURO: The patient moves all four extremities with 5/5 strength. Cranial nerves II - XII are intact. Normal gait. Alert and oriented SKIN: There is no apparent rash or petechiae. PICC line is noted without evidence of infection HEME/LYMPHATIC: There is no evidence of excessive bruising or lymphedema. PSYCHIATRIC: The patient does not appear anxious or depressed. Result Diagram: 09/20/17 1431 09/20/17 1431 Results 24 hrs Laboratory Tests Test 09/20/17 14:31 09/20/17 14:46 White Blood Count 3.010^3/ul Red Blood Count 4.1310^6/ul Hemoglobin 13.9g/dl Hematocrit 42.2% Mean Corpuscular Volume 102.2fl Mean Corpuscular Hemoglobin 33.7pg Mean Corpuscular Hemoglobin Concent 32.9g/dl Red Cell Distribution Width 13.0% Platelet Count 57191^3/UL Mean Platelet Volume 11.2fl Neutrophils % 82.0% Lymphocytes % 10.0% Monocytes % 7.0% Eosinophils % 0.0% Basophils % 0.7% Nucleated Red Blood Cells % 0.0/100WBC Neutrophils # 2.510^3/ul Lymphocytes # 0.310^3/ul Monocytes # 0.210^3/ul Eosinophils # 0.010^3/ul Basophils # 0.010^3/ul Nucleated Red Blood Cells # 0.010^3/ul Prothrombin Time 13.3Sec Prothrombin Time Ratio 1.0 INR International Normalized Ratio 1.01 Activated Partial Thromboplast Time 26.9Sec Sodium Level 141mmol/L Potassium Level 5.0mmol/L Chloride Level 110mmol/L Carbon Dioxide Level 18mmol/L Anion Gap 18 Blood Urea Nitrogen 23mg/dl Creatinine 1.78mg/dl Glucose Level 209mg/dl Lactic Acid Level 1.6mmol/L Calcium Level 10.2mg/dl Total Bilirubin 0.1mg/dl Direct Bilirubin 0.00mg/dl Indirect Bilirubin 0.1mg/dl Aspartate Amino Transf (AST/SGOT) 117IU/L Alanine Aminotransferase (ALT/SGPT) 143IU/L Alkaline Phosphatase 83IU/L Troponin I 0.027ng/ml Total Protein 7.1g/dl Albumin 4.0g/dl Globulin 3.10g/dl Albumin/Globulin Ratio 1.29 Urine Color YELLOW Urine Clarity CLEAR Urine pH 5.0 Urine Specific [place] 1.023 Urine Ketones NEGATIVEmg/dL Urine Nitrite NEGATIVEmg/dL Urine Bilirubin NEGATIVEmg/dL Urine Urobilinogen NEGATIVEmg/dL Urine Leukocyte Esterase NEGATIVELeu/ul Urine Microscopic RBC 0/HPF Urine Microscopic WBC 1/HPF Urine Hemoglobin NEGATIVEmg/dL Urine Glucose 3+mg/dL Urine Total Protein 2+mg/dl Procedures/MDM Patient was taken to a room, seen and evaluated. Comfort measures were initiated. Diagnostic tests were ordered and reviewed. 3 LEAD RHYTHM STRIP: Normal sinus rhythm without ectopy EK lead EKG reviewed by myself: Normal Sinus Rhythm Normal [place] and intervals No ST elevation, depression, or T wave inversion Impression: Normal EKG RADIOLOGY: reviewed with the radiologist REEVALUATION: Patient is remained stable in the emergency department. His heart rate normalized, he was ambulatory without difficulty. MEDICAL DECISION MAKIN-year-old male after kidney transplant presents with generalized weakness. Differential diagnosis entertained was broad and potential high acuity and focused on possible infectious, electrolyte, ischemic concerns. Ultimately, patient's clinical presentation and diagnostic workup demonstrates none of these high risk considerations. He is afebrile with a normal white count and a normal lactate and no evidence of acute infection at this time. His electrolytes demonstrated kidney function which is about the same as what it has been since his transplant. He has no evidence of severe dehydration at this time and clinically feels well and seems appropriate for outpatient care. Departure Diagnosis: Primary Impression: Acute weakness Condition: Stable Patient Instructions: Weakness, Unk Cause Referrals: LIZ BASS (PCP) Additional Instructions: Please continue your antibiotics with your PICC line at home as usual. Return for any problems or concerns. MILAN LEE Sep 20, 2017 16:11
[2017-09-20 16:15] VITALS: BP 121/52; PULSE 58; RESP 16; TEMP 97.5
== END 2017-09-20 16:26 | disposition home or self-care (01) ==
LOC: E/R 14:24
DX: R53.1 Weakness (principal); I10 Essential (primary) hypertension; E11.9 Type 2 diabetes mellitus without complications; R07.9 Chest pain, unspecified; Z79.4 Long term (current) use of insulin
CPT/HCPCS: 36415; 71010; 80053; 81001; 83605; 84484; 85025; 85610; 85730; 87040; 87086; 93005; Z7502

== ENCOUNTER 2017-10-03 10:42 | Emergency (ER) | payer OTHER ==
[~2017-10-03] VITALS: Ht 172.7 cm; Wt 49.6 kg
[~2017-10-03 10:42] MED LIST changes: -PRED20TA PO; -PRED5TAB PO
[2017-10-03 10:44] VITALS: Ht 172.7 cm; Wt 49.6 kg
[2017-10-03] MEDS ORDERED: DOXY100T20 PO (11:48)
--- NOTE | 2017-10-03 11:53 | ERD ---
ER Documentation Chief Complaint Chief Complaint Pt states " I had a varicose vein ruptured" to L leg, no bleeding, DM HPI This 56-year-old male presents with some bleeding from a varicose vein 3 days ago. He currently has no bleeding.This 56-year-old male presents with some bleeding from a varicose vein 3 days ago. He has some bruising as well.He has an additional complaint of some redness and pain in the tip of his left index finger. He has a history of amputations due to peripheral vascular disease. ROS All systems reviewed and are negative except as per history of present illness. Medications Home Meds Active Scripts Doxycycline Hyclate* (Doxycycline Hyclate*) 100 Mg Tablet.dr, 100 MG PO BID for 10 Days, TAB Prov:KAYLIN SAUL MD 10/03/17 Megestrol Acetate (Megestrol Acetate) 400 Mg/10 Ml Oral.susp, 400 MG PO DAILY for 30 Days Prov:EILEEN COBURN 08/24/17 Famotidine* (Famotidine*) 20 Mg Tablet, 20 MG PO BID, #60 TAB Prov:LETI RODRIGUEZ 05/09/17 Tacrolimus* (Prograf*) 0.5 Mg Capsule, 3 MG PO BID for 30 Days, CAP Prov:LETI RODRIGUEZ 05/09/17 Mycophenolate Sodium* (Myfortic*) 180 Mg Tab, 540 MG PO BID for 30 Days, TAB Prov:LETI RODRIGUEZ 05/09/17 Hydrocodone/Acetaminophen ([place] 5-325 Tablet) 1 Each Tablet, 1 TAB PO Q6H Y for PAIN, #30 TAB Prov:LETI RODRIGUEZ 05/09/17 Metoprolol Tartrate* (Lopressor*) 50 Mg Tab, 50 MG PO BID, #60 TAB Prov:GONZALO CR NP 04/14/15 Reported Medications Insulin Glargine* (Lantus*) 100 Unit/Ml Soln, 5 UNIT SC BID, #1 VIAL 04/28/16 Clonidine Hcl* (Clonidine Hcl*) 0.1 Mg Tab, 0.1 MG PO Q4H Y for ELEVATED BLOOD PRESSURE, TAB PRN FOR SBP>160 06/03/14 Allergies Allergies: Coded Allergies: magnesium (Verified Allergy, Intermediate, 08/08/17) NUMBNESS AND HOT FUSHES PMhx/Soc History of Surgery: Yes (FINGER SX, kidney transplant ) Anesthesia Reaction: No Hx 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 Disorder: No Hx Respiratory Disorders: No Hx Cardiac Disorders: Yes (HTN) Hx Psychiatric Problems: No Hx Alcohol Use: No Hx Substance Use: Yes (MARIJUANA) Hx Tobacco Use: No Physical Exam Vitals Vital Signs Date Time Temp Pulse Resp B/P Pulse Ox O2 Delivery O2 Flow Rate FiO2 10/03/17 10:44 97.4 89 16 135/75 100 Physical Exam Const: []Alert, pleasant, not ill-appearing . Head: Atraumatic Eyes: Normal Conjunctiva ENT: Normal External Ears, Nose and Mouth. Neck: Full range of motion..~ No meningismus. Resp: Clear to auscultation bilaterally Cardio: Regular rate and rhythm, no murmurs Abd: Soft, non tender, non distended. Normal bowel sounds Skin: No petechiae or rashes Back: No midline or flank tenderness Ext: No cyanosis, or edema. Slight redness and scabbing the tip of the left index finger. He has no significant tenderness and cap refill is less than 2 seconds. No appreciable fluctuance. The distal aspect of the left posterior calf there is a scab previous varicose vein bleeding which is currently not bleeding. The surrounding bruising without warmth, erythema. There is no calf swelling or Homans sign. Neur: Awake and alert Psych: Normal Mood and Affect Procedures/MDM . Slight redness and scabbing the tip of the left index finger. He has no significant tenderness and cap refill is less than 2 seconds. No appreciable fluctuance. The distal aspect of the left posterior calf there is a scab previous varicose vein bleeding which is currently not bleeding. The surrounding bruising without warmth, erythema. There is no calf swelling or Homans sign.Patient has appears to be satisfactorily healing ruptured varicose vein without active bleeding. Signs or symptoms status is DVT, significant cellulitis. Is possibly an early infection of the tip of his left index finger without significant signs of cellulitis, abscess, signs or symptoms to suggest cellulitis or tenosynovitis.We discharged home the prescription of doxycycline, return precautions and primary care follow-up. Departure Diagnosis: Primary Impression: Paronychia Additional Impression: Varicose ulceration Laterality: left Qualified Code: I83.029 - Varicose ulcer of left lower extremity Condition: Stable Patient Instructions: Paronychia, Varicose Veins Additional Instructions: MELANI HERNÁNDEZ, KAYLIN BARRETO MD Oct 03, 2017 11:53
== END 2017-10-03 12:52 | disposition home or self-care (01) ==
LOC: FTE 10:42
DX: L03.012 Cellulitis of left finger (principal); I83.029 Varicose veins of left lower extremity with ulcer of unspecified site; L97.829 Non-pressure chronic ulcer of other part of left lower leg with unspecified severity; I10 Essential (primary) hypertension; E11.9 Type 2 diabetes mellitus without complications; Z79.4 Long term (current) use of insulin
CPT/HCPCS: 99283

== ENCOUNTER 2017-10-09 17:35 | Emergency (ER) | payer OTHER ==
[~2017-10-09] VITALS: Ht 170.2 cm; Wt 48.9 kg
[~2017-10-09 17:35] MED LIST changes: +DOXY100T20 PO
[2017-10-09 17:40] VITALS: Ht 170.2 cm; Wt 48.9 kg
[2017-10-09] MEDS ORDERED: HYDROCODONE/APAP (5/325) TAB PO ONE (19:00)
--- NOTE | 2017-10-09 19:14 | ERD ---
ER Documentation Chief Complaint Chief Complaint left leg pain since yesterday, bruise noted to left leg HPI This a 56-year-old male presents emergency department today complaining of left lower leg pain and bruising after "his vein exploded". Denies any trauma, fevers or chills. ROS All systems reviewed and are negative except as per history of present illness. Medications Home Meds Active Scripts Acetaminophen* (Tylophen*) 500 Mg Capsule, 1 CAP PO Q6H Y for PAIN AND OR ELEVATED TEMP, #30 CAP Prov:CHATA GILBERT PA-C 10/09/17 Hydrocodone/Acetaminophen ([place] 5-325 Tablet) 1 Each Tablet, 1 TAB PO Q6H Y for PAIN, #10 TAB Prov:CHATA GILBERT PA-C 10/09/17 Doxycycline Hyclate* (Doxycycline Hyclate*) 100 Mg Tablet.dr, 100 MG PO BID for 10 Days, TAB Prov:KAYLIN SAUL MD 10/03/17 Megestrol Acetate (Megestrol Acetate) 400 Mg/10 Ml Oral.susp, 400 MG PO DAILY for 30 Days Prov:EILEEN COBURN 08/24/17 Famotidine* (Famotidine*) 20 Mg Tablet, 20 MG PO BID, #60 TAB Prov:LETI RODRIGUEZ 05/09/17 Tacrolimus* (Prograf*) 0.5 Mg Capsule, 3 MG PO BID for 30 Days, CAP Prov:LETI RODRIGUEZ 05/09/17 Mycophenolate Sodium* (Myfortic*) 180 Mg Tab, 540 MG PO BID for 30 Days, TAB Prov:LETI RODRIGUEZ 05/09/17 Hydrocodone/Acetaminophen ([place] 5-325 Tablet) 1 Each Tablet, 1 TAB PO Q6H Y for PAIN, #30 TAB Prov:LETI RODRIGUEZ 05/09/17 Metoprolol Tartrate* (Lopressor*) 50 Mg Tab, 50 MG PO BID, #60 TAB Prov:GONZALO CR NP 04/14/15 Reported Medications Insulin Glargine* (Lantus*) 100 Unit/Ml Soln, 5 UNIT SC BID, #1 VIAL 04/28/16 Clonidine Hcl* (Clonidine Hcl*) 0.1 Mg Tab, 0.1 MG PO Q4H Y for ELEVATED BLOOD PRESSURE, TAB PRN FOR SBP>160 06/03/14 Allergies Allergies: Coded Allergies: magnesium (Verified Allergy, Intermediate, 08/08/17) NUMBNESS AND HOT FUSHES PMhx/Soc History of Surgery: Yes (FINGER SX, kidney transplant ) Anesthesia Reaction: No Hx 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 Disorder: No Hx Respiratory Disorders: No Hx Cardiac Disorders: Yes (HTN) Hx Psychiatric Problems: No Hx Alcohol Use: No Hx Substance Use: Yes (MARIJUANA) Hx Tobacco Use: No Physical Exam Vitals Vital Signs Date Time Temp Pulse Resp B/P Pulse Ox O2 Delivery O2 Flow Rate FiO2 10/09/17 17:40 98.2 80 18 168/90 97 Physical Exam Const: NAD Head: Atraumatic Eyes: Normal Conjunctiva ENT: Normal External Ears, Nose and Mouth. Neck: Full range of motion..~ No meningismus. Resp: Clear to auscultation bilaterally Cardio: Regular rate and rhythm, no murmurs Skin: No petechiae or rashes Ext: Left lower leg with evidence of ecchymosis. Full active range of motion at knee and ankle. Pulses 2+. Distal neurovascularly intact. No erythema or warmth. Neur: Awake and alert Psych: Normal Mood and Affect Results 24 hrs Current Medications Medications (Trade) Dose Ordered Sig/Kathryn Route PRN Reason Start Time Stop Time Status Last Admin Dose Admin Acetaminophen/ Hydrocodone Bitart ([place] (5/325)) 1 tab ONCE ONCE PO 10/09/17 19:00 10/09/17 19:01 DC 10/09/17 19:28 DIAGNOSTIC IMAGING REPORT Patient: MELITA GRIFFIN : 1960 Age: 56 Sex: M MR #: [id number] DOS: 10/09/17 0000 Ordering MD: CHATA GILBERT PA-C Location: [facility] Room/Bed: PROCEDURE: US Lower extremity Venous. CLINICAL INDICATION: Pain and swelling TECHNIQUE: Multiple sonographic images of the left lower extremity deep venous system was obtained utilizing grayscale, color-flow, compressive sonography and doppler imaging with augmentation. The images were reviewed on a PACS workstation. COMPARISON: None. FINDINGS: There is normal compressibility and flow within the left common femoral, deep femoral, superficial femoral and popliteal veins. Normal respiratory variation and augmentation is seen. There is normal color flow and compressibility of left posterior tibial and peroneal veins IMPRESSION: No sonographic evidence for left lower extremity deep venous thrombosis. RPTAT: HH .Rom Martinez MD, MD Date Time Electronically viewed and signed by .Rom Martinez MD, MD on 10/09/2017 19:26 .W/ CC: CHATA GILBERT PA-C Procedures/MDM This 56-year-old male who presents the emergency department today complaining of bruising in his lower leg after his "vein exploded". Patient is afebrile and otherwise well-appearing. Patient had previously taken [place] for a problem that he had previously and was seen here in the emergency department for. Upon review of patient's medical records he was here for a paronychia. Patient does have a history of a kidney transplant RA diabetes and hepatitis C from a blood transfusion in the early . He no longer is on dialysis. I discussed the patient with Dr. English and he recommended a venous US and pain medication. Patient was given a [place] here in the emergency department. Doppler ultrasound shows no sonographic evidence for left lower extremity deep venous thrombosis. Symptoms at this time is consistent with lower extremity bruising. There is no erythema or warmth. Low suspicion for phlebitis or cellulitis. Patient will be given a prescription for short course of [place], Tylenol for home At this time the patient is stable for discharge and outpatient management. Patient should follow up with their PCP in the next 1-2 days. They may return to the emergency department sooner for any persistent or worsening of symptoms. Patient understood and agreed with the plan. Departure Diagnosis: Primary Impression: Pain of left leg Additional Impression: Ecchymosis Condition: Fair CHATA GILBERT PA-C Oct 09, 2017 19:14
--- NOTE | 2017-10-09 19:27 | RADRPT ---
PROCEDURE: US Lower extremity Venous. CLINICAL INDICATION: Pain and swelling TECHNIQUE: Multiple sonographic images of the left lower extremity deep venous system was obtained utilizing grayscale, color-flow, compressive sonography and doppler imaging with augmentation. The images were reviewed on a PACS workstation. COMPARISON: None. FINDINGS: There is normal compressibility and flow within the left common femoral, deep femoral, superficial f emoral and popliteal veins. Normal respiratory variation and augmentation is seen. There is normal color flow and compressibility of left posterior tibial and peroneal veins IMPRESSION: No sonographic evidence for left lower extremity deep venous thrombosis. RPTAT: HH .Rom Martinez MD, MD Date Time Electronically viewed and signed by .Rom Martinez MD, on 10/09/2017 19:26 .W/
[2017-10-09] MEDS ORDERED: ACET500C5 PO (19:39)
[2017-10-09] MEDS ORDERED: HYDR-906 PO (19:39)
[2017-10-09 19:59] VITALS: BP 158/44; PULSE 74; RESP 18; TEMP 98.1
== END 2017-10-09 20:02 | disposition home or self-care (01) ==
LOC: FTE 17:35
DX: M79.605 Pain in left leg (principal); R58 Hemorrhage, not elsewhere classified; I10 Essential (primary) hypertension; Z79.4 Long term (current) use of insulin
CPT/HCPCS: 93971; Z7502; Z7610; 99284

== ENCOUNTER 2018-03-14 02:16 | Inpatient (IN) | END 2018-04-10 19:10 | disposition home or self-care (01) | DRG 638 ==

== ENCOUNTER 2018-09-23 17:49 | Emergency (ER) | END 2018-09-23 22:40 | disposition home or self-care (01) ==

== ENCOUNTER 2018-12-09 13:35 | Inpatient (IN) | payer OTHER ==
[~2018-12-09] VITALS: Ht 172.7 cm; Wt 52.0 kg
[2018-12-09] VITALS (7 sets, daily range): BP systolic 148–210; BP diastolic 56–101; PULSE 64–92; RESP 18–20; Ht 172.7 cm; Wt 52.0 kg
[~2018-12-09 13:35] MED LIST changes: +ASPI-831 PO; +ATOR10TA65 PO; -DOXY100T20 PO; -FAMO20TA18 PO; +GLIP5TAB13 PO; -HYDR-906 PO; +INSU100C SQ; -LANT3I SC; -MEGE400O4 PO; -METO-429 PO; +METO10TA92 PO; +ONDA4TAB14 PO; +PRED5TAB PO; +SITA50TA2 PO; +TACR0.5C PO; -TACR0.5C18 PO
[2018-12-09] MEDS ORDERED: VANCOMYCIN 1 GM (PMX) 250 ML IVPB STA (14:06)
[2018-12-09] MEDS ORDERED: PIPER-TAZO 3.375 GM IV (PMX) 100 ML IVPB STA (14:06)
[2018-12-09] MEDS ORDERED: ACETAMINOPHEN 325 MG TAB PO PRN ×2 (14:30→18:30)
[2018-12-09] MEDS ORDERED: ONDANSETRON 4 MG INJ IV PRN (14:30)
[2018-12-09] MEDS ORDERED: CLON-379 PO (14:55)
[2018-12-09] MEDS ORDERED: GLIP5TAB13 PO (14:55)
[2018-12-09] MEDS ORDERED: PRED5TAB PO (14:55)
[2018-12-09] MEDS ORDERED: MYCO180T2 PO (14:56)
[2018-12-09] MEDS ORDERED: TACR1CAP PO ×2 (14:57)
[2018-12-09] MEDS ORDERED: SITA50TA2 PO (15:00)
--- NOTE | 2018-12-09 15:17 | ERD ---
ER Documentation Chief Complaint Chief Complaint RIGHT 3RD FINGER TIP NECROTIC HPI Patient is a 58-year-old male with diabetes and history of kidney disease with kidney transplant who presents with right third finger necrosis. The patient has had 4 days of symptoms and the skin has been darkening over the past 3 days. He denies pain at this time. Upon review of old medical records the patient has multiple visits to the ER with admissions. He has had no treatment as of yet. ROS All systems reviewed and are negative except as per history of present illness. Medications Home Meds Reported Medications Sitagliptin* (Januvia*) 50 Mg Tablet, 50 MG PO DAILY, #30 TAB 12/09/18 Tacrolimus* (Tacrolimus*) 1 Mg Capsule, 3 MG PO QAM, CAP 12/09/18 Tacrolimus* (Tacrolimus*) 1 Mg Capsule, 2 MG PO QHS, CAP 12/09/18 Mycophenolate Sodium* (Mycophenolic Acid*) 180 Mg Tablet.dr, 540 MG PO Q12, TAB 12/09/18 Prednisone* (Prednisone*) 5 Mg Tab, 5 MG PO DAILY, TAB 12/09/18 Glipizide* (Glipizide*) 5 Mg Tablet, 5 MG PO AC BREAKFAST DINNER, TAB 12/09/18 Clonidine Hcl* (Clonidine Hcl*) 0.1 Mg Tab, 0.1 MG PO DAILY, TAB 12/09/18 Insulin Lispro (Humalog) 100 Unit/1 Ml Cartridge, 0 SQ SLIDING SCALE, EA INSURANECE NOT COVERED THIS INSULIN 09/23/18 Discontinued Reported Medications Atorvastatin Calcium (Atorvastatin Calcium) 10 Mg Tablet, 10 MG PO QHS, #30 TAB 09/23/18 Prednisone* (Prednisone*) 5 Mg Tab, 5 MG PO DAILY, TAB 09/23/18 Metoclopramide* (Reglan*) 10 Mg Tablet, 10 MG PO NEEDED, TAB 09/23/18 Glipizide* (Glipizide*) 5 Mg Tablet, 5 MG PO AC BREAKFAST DINNER, TAB 09/23/18 Sitagliptin* (Januvia*) 50 Mg Tablet, 50 MG PO DAILY, #30 TAB 09/23/18 Tacrolimus* (Tacrolimus*) 0.5 Mg Capsule, 2 MG PO Q12, CAP 09/23/18 Clonidine Hcl* (Clonidine Hcl*) 0.1 Mg Tab, 0.1 MG PO DAILY, TAB 09/23/18 Discontinued Scripts Ondansetron (Ondansetron Odt) 4 Mg Tab.rapdis, 4 MG PO Q6H PRN for NAUSEA AND/OR VOMITING, #10 TAB Prov:LIZ OCHOA MD 09/23/18 Aspirin (Aspirin) 81 Mg Chew, 81 MG PO DAILY for 30 Days, TAB Prov:LETI RODRIGUEZ 04/10/18 Mycophenolate Sodium* (Myfortic*) 180 Mg Tab, 540 MG PO BID for 30 Days, TAB Prov:LETI RODRIGUEZ 05/09/17 Allergies Allergies: Coded Allergies: magnesium (Unverified Allergy, Intermediate, 12/09/18) NUMBNESS AND HOT FUSHES PMhx/Soc History of Surgery: Yes (kidney transplant 2011) Anesthesia Reaction: No Hx 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 Disorder: No Hx Respiratory Disorders: No Hx Cardiac Disorders: Yes (HTN, hyperlipidemia) Hx Psychiatric Problems: No Hx Miscellaneous Medical Probl: Yes (DM) Hx Alcohol Use: No Hx Substance Use: No Hx Tobacco Use: No Smoking Status: Never smoker FmHx Family History: diabetes Physical Exam Vitals Vital Signs Date Temp Pulse Resp B/P (MAP) Pulse Ox O2 O2 Flow FiO2 Time Delivery Rate 12/09/18 98.1 67 16 137/85 100 13:46 (102) Physical Exam Const: No acute distress Head: Atraumatic Eyes: Normal Conjunctiva ENT: Normal External Ears, Nose and Mouth. Neck: Full range of motion. No meningismus. Resp: Clear to auscultation bilaterally Cardio: Regular rate and rhythm, no murmurs Abd: Soft, non tender, non distended. Normal bowel sounds Skin: Gangrene to the distal right third finger Back: No midline or flank tenderness Ext: Previous amputations to multiple different fingers Neur: Awake and alert Psych: Normal Mood and Affect Result Diagram: 12/09/18 1430 Results 24 hrs Laboratory Tests Test 12/09/18 14:30 12/09/18 14:35 White Blood Count 6.3 10^3/ul Red Blood Count 2.76 10^6/ul Hemoglobin 9.2 g/dl Hematocrit 28.4 % Mean Corpuscular Volume 102.9 fl Mean Corpuscular Hemoglobin 33.3 pg Mean Corpuscular Hemoglobin Concent 32.4 g/dl Red Cell Distribution Width 13.2 % Platelet Count 152 10^3/UL Mean Platelet Volume 11.1 fl Immature Granulocytes % 0.300 % Neutrophils % 93.2 % Lymphocytes % 3.0 % Monocytes % 3.3 % Eosinophils % 0.0 % Basophils % 0.2 % Nucleated Red Blood Cells % 0.0 /100WBC Immature Granulocytes # 0.020 10^3/ul Neutrophils # 5.9 10^3/ul Lymphocytes # 0.2 10^3/ul Monocytes # 0.2 10^3/ul Eosinophils # 0.0 10^3/ul Basophils # 0.0 10^3/ul Nucleated Red Blood Cells # 0.0 10^3/ul Prothrombin Time 13.7 Sec Prothrombin Time Ratio 1.1 INR International Normalized Ratio 1.04 Activated Partial Thromboplast Time 28.2 Sec POC Venous Lactate 2.2 mmol/L Current Medications Medications Dose Sig/Kathryn Start Time Status Last (Trade) Ordered Route PRN Stop Time Admin Dose Reason Admin Vancomycin 250 ml @ ONCE STAT 12/09/18 12/09/18 HCl 125 mls/hr IVPB 14:06 12/09/18 15:02 16:05 Piperacillin 100 ml @ ONCE STAT 12/09/18 DC 12/09/18 Sod/ 200 mls/hr IVPB 14:06 12/09/18 14:41 Tazobactam 14:35 Sod Ondansetron 4 mg BRIDGE ORDER 12/09/18 HCl (Zofran PRN IV 14:30 12/10/18 Inj) NAUSEA/VOMITI 14:29 NG 650 mg ER BRIDGE 12/09/18 Acetaminophen PRN PO 14:30 12/10/18 (Tylenol .MILD PAIN 14:29 Tab) 1-3 OR TEMP Procedures/MDM X-ray of the right hand read by radiology. EKG read by me: Rate/Rhythm: Sinus bradycardia Intervals: Normal Impression: Bradycardia without ischemia Sepsis Documentation: Patient's infectious symptoms have not stabilized and the patient is at risk of rapid decompensation. The patient will be admitted for careful hydration, antibiotic therapy, and infectious source control. SEVERE SEPSIS CRITERIA: Infectious source: Gangrene of the right third finger End organ damage indicated by: Lactic acid 2.2 SEPSIS MANAGEMENT Time of recognition of sepsis: 1435. Time of recognition of severe sepsis: 1435. Time of recognition of septic shock: No septic shock at this time. 3 HOUR BUNDLE Blood cultures x 2 before broad-spectrum antibiotics: Yes 30 ml/kg NS bolus given Initial lactate 2.2 Repeat lactate pending SEPTIC SHOCK ASSESSMENT: No lactic acid > 4.0 No persistent hypotension (SBP < 90 or 40 mmHg drop, MAP < 65) despite 30 mL/kg IV fluid bolus VOLUME REASSESSMENT FOR SEPTIC SHOCK: No septic shock at this time PERSISTENT HYPOTENSION TREATMENT: Comfort care no Central line not Required Vasopressor started not required I considered further perfusion assessment with CVP measurement, SCVO2, bedside ultrasound volume assessment, passive leg raise, trial of further fluid bolus. And proceeded with 30 ml/kg fluid bolus of NSS, broad spectrum antibiotics, and admission. CRITICAL CARE Critical care time 35 minutes Emergent fluid management while maintaining close respiratory support. Provision of immediate and broad-spectrum antibiotic therapy. Simultaneous assessment for possible sources in order to direct targeted therapy. Consideration for invasive and chemical support to prevent cardiopulmonary collapse. Critical care time is independent of procedures performed. Departure Diagnosis: Primary Impression: Severe sepsis Additional Impressions: Gangrene Hyperkalemia Renal failure Renal failure chronicity: unspecified chronicity Qualified Codes: N19 - Unspecified kidney failure Condition: Serious BENJAMIN CHAPMAN MD Dec 09, 2018 15:17
[2018-12-09] MEDS ORDERED: NA BICARBONATE 8.4% 50 ML SYG IV STA (15:18)
[2018-12-09] MEDS ORDERED: INSULIN LISPRO 100 UNIT/ML VIAL SC ONE (15:30)
--- NOTE | 2018-12-09 16:50 | NUR ---
Patient admitted to 2283, alert and verbally responsive. No acute distress. oriented to staff, call light. Instructed patient to ask for assistance. Call light within reach.
--- NOTE | 2018-12-09 18:03 | HP ---
Date/Time of Note Date/Time of Note DATE: 12/09/18 TIME: 17:46 Assessment/Plan VTE Prophylaxis Pharmacological prophylaxis: heparin Lines/Catheters IV [facility] Saline Lock Assessment/Plan Assessment/Plan -Severe sepsis, continue IV fluids monitor lactate, continue broad-spectrum antibiotics. Dr. Olmstead is asked to see patient in infection disease consultation. -Right middle finger cellulitis with gangrene -Hyperkalemia -Renal failure, patient baseline creatinine is 1.5. Continue IV fluids. Dr. Meyers is asked to see patient in nephrology consultation. -Status post kidney transplant in 2009. -Diabetes mellitus type 2 we will continue Lantus and NovoLog will obtain hemoglobin A1c. -Hypertension -History of right fourth finger gangrene -History of Juan's esophagus and severe gastritis. -Chronic HCV infection -Rheumatoid arthritis -History of polysubstance and IV drug use Further recommendations based on clinical course. Plan of care discussed with Dr. Maier. Result Diagram: 12/09/18 1430 12/09/18 1430 Results 24hrs Laboratory Tests Test 12/09/18 14:30 12/09/18 14:35 12/09/18 14:45 12/09/18 15:45 White Blood Count 6.3 Red Blood Count 2.76 #L Hemoglobin 9.2 #L Hematocrit 28.4 #L Mean Corpuscular Volume 102.9 H Mean Corpuscular 33.3 H Hemoglobin Mean Corpuscular 32.4 Hemoglobin Concent Red Cell Distribution 13.2 Width Platelet Count 152 Mean Platelet Volume 11.1 H Immature Granulocytes % 0.300 Neutrophils % 93.2 H Lymphocytes % 3.0 L Monocytes % 3.3 Eosinophils % 0.0 Basophils % 0.2 Nucleated Red Blood 0.0 Cells % Immature Granulocytes # 0.020 Neutrophils # 5.9 Lymphocytes # 0.2 L Monocytes # 0.2 L Eosinophils # 0.0 Basophils # 0.0 Nucleated Red Blood 0.0 Cells # Prothrombin Time 13.7 Prothrombin Time Ratio 1.1 INR International 1.04 Normalized Ratio Activated 28.2 Partial Thromboplast Time Sodium Level 134 L Potassium Level 6.1 *H Chloride Level 107 Carbon Dioxide Level 18 L Anion Gap 9 Blood Urea Nitrogen 48 H Creatinine 3.21 H Est Glomerular Filtrat 20 L Rate mL/min Glucose Level 500 *H Calcium Level 9.0 Total Bilirubin 0.1 L Direct Bilirubin 0.00 Indirect Bilirubin 0.1 Aspartate Amino 30 Transf (AST/SGOT) Alanine 27 Aminotransferase (ALT/SG PT) Alkaline Phosphatase 94 Troponin I 0.040 Total Protein 6.4 Albumin 3.3 Globulin 3.10 Albumin/Globulin Ratio 1.06 POC Venous Lactate 2.2 *H Urine Color YELLOW Urine Clarity CLEAR Urine pH 5.0 Urine Specific [place] 1.017 Urine Ketones NEGATIVE Urine Nitrite NEGATIVE Urine Bilirubin NEGATIVE Urine Urobilinogen NEGATIVE Urine Leukocyte Esterase NEGATIVE Urine Microscopic RBC 2 Urine Microscopic WBC 1 Urine Hemoglobin 1+ H Urine Glucose 3+ H Urine Total Protein 3+ H Bedside Glucose 531 *H Test 12/09/18 17:18 Bedside Glucose 393 H HPI/ROS Admit Date/Time Admit Date/Time Dec 09, 2018 at 14:30 Hx of Present Illness The patient is 58-year-old gentleman known to me from previous admission when patient was admitted for right fourth finger cellulitis, gangrene and osteomyelitis was treated with long-term antibiotics. Patient has multiple chronic conditions including diabetes mellitus type 2, end-stage renal disease status post kidney transplant in 2009 currently on antirejection therapy, chronic HCV infection, rheumatoid arthritis, hypertension, history of Juan's esophagus and severe gastritis, history of polysubstance and IV drug use. Patient presented to emergency room with right third finger necrosis, patient stated that the symptoms started 4 days ago and skin darkening progressed over the last couple of days. Patient denies any fever chills denies any nausea vomiting diarrhea, patient denies any chest pain denies shortness of breath. L actic acid was elevated however patient did not have any fever no leukocytosis. Patient blood sugar was 500 and he also noted to have hyperkalemia which was treated in the emergency room. Patient was started on broad-spectrum antibiotics and admitted for further evaluation and management. ROS 12 point review of system is negative except for what mentioned in HPI PMH/Family/Social Past Medical History Medical History: diabetes, hypertension, renal disease Medications Current Medications Ondansetron HCl (Zofran Inj) 4 mg BRIDGE ORDER PRN IV NAUSEA/VOMITING; Start 12/09/18 at 14:30; Stop 12/10/18 at 14:29 Acetaminophen (Tylenol Tab) 650 mg ER BRIDGE PRN PO .MILD PAIN 1-3 OR TEMP; St art 12/09/18 at 14:30; Stop 2/7/19 at 14:29 Coded Allergies: magnesium (Unverified Allergy, Intermediate, 12/09/18) NUMBNESS AND HOT FUSHES Past Surgical History Past Surgical Hx: other (Status post kidney transplant in 2009) Family History Significant Family History: other Social History Alcohol Use: none Smoking Status: Never smoker Drug Use: other (Former drug user) Exam/Review of Systems Vital Signs Vitals Vital Signs Date Temp Pulse Resp B/P (MAP) Pulse Ox O2 O2 Flow FiO2 Time Delivery Rate 12/09/18 98.0 60 20 172/92 96 Room Air 16:32 (118) Exam Constitutional: alert, oriented Neck: supple Respiratory: clear to auscultation Cardiovascular: nl pulses Gastrointestinal: soft, non-tender Musculoskeletal: nl extremities to inspection Extremities: normal pulses, other (Right middle finger tip necrosis) 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: nl mental status Skin: nl LETI Mattson Dec 09, 2018 17:57
[2018-12-09] MEDS: SOD CHLORIDE 0.9% 1,000 ML IV SCH (18:24)
[2018-12-09] MEDS: morphine SULFATE/PF (2 MG/2 ML) SYG IV PRN ×2 (18:25→22:42)
[2018-12-09] MEDS ORDERED: DEXTROSE 50% 50 ML SYRINGE IV PRN ×2 (18:30)
[2018-12-09] MEDS ORDERED: GLUCAGON 1 MG INJ IM PRN (18:30)
[2018-12-09] MEDS ORDERED: BISACODYL (EC) 5 MG TAB PO PRN (18:30)
[2018-12-09] MEDS ORDERED: GLUCOSE GEL 15 GRAM TUBE PO PRN ×2 (18:30)
[2018-12-09] MEDS ORDERED: GLUCOSE GEL 15 GRAM TUBE BUCCAL PRN (18:30)
[2018-12-09] MEDS ORDERED: SODIUM POLYSTYRENE 15 GM KIT (POWDER + SORBITOL) PO ONE (18:30)
[2018-12-09] MEDS ORDERED: DOCUSATE SODIUM 100 MG CAP PO PRN (18:30)
--- NOTE | 2018-12-09 18:30 | NUR ---
Patient was transferred from [facility] to Telemetry. No shortness of breath noted. no complaint of pain.
--- NOTE | 2018-12-09 18:35 | NUR ---
Patient being transferred to [facility], patient alert and verbally responsive. Patient with order for Kayexalate 3ogm, patient refusing per patient medication makes him sick in his stomach, explained to the patient, willing to take 15gm, paged STATEMENT PROCESSOR Hilda, waiting for call back. Report given to Roxanne DÍAZ. IV hydration infusing.
[2018-12-09] MEDS ORDERED: SODIUM CHLORIDE 0.9% 1L BAG IV* STA (19:14)
--- NOTE | 2018-12-09 19:38 | NUR ---
EOSS Received call from chemistry of elevated lactic acid. Patient also took only half of dose of kayexelate due to stomach discomfort. Dr. Maier made aware. Received order for NS bolus and AM lab draws. Noted and carried out. Endorsed to car shifter RN regarding bolus dose and calculation. All needs attended to and met. Kept comfortable. Call light within reach.
[2018-12-09] MEDS: INSULIN ASPART [NOVOLOG] 3 ML PEN SC SCH (20:22)
[2018-12-09] MEDS: FAMOTIDINE 20 MG TAB PO SCH (20:47)
[2018-12-09] MEDS: HEPARIN 5,000 UNIT/1 ML VIAL SC SCH (20:49)
[2018-12-09] MEDS ORDERED: hydrALAzine 20 MG INJ IV PRN (21:00)
[2018-12-09] MEDS: AMLODIPINE 10 MG TAB PO SCH (21:31)
[2018-12-09] MEDS: MYCOPHENOLATE (SR) 180 MG TAB PO SCH (21:31)
[2018-12-09] MEDS: TACROLIMUS 1 MG CAP PO SCH (21:31)
[2018-12-09] MEDS: INSULIN GLARGINE [LANTus] (100 UNITS/ML) SYG SC SCH (21:38)
[2018-12-09] MEDS: ONDANSETRON 4 MG INJ IV PRN (23:00)
[2018-12-09] MEDS ORDERED: ZOLPIDEM 5 MG TAB PO PRN (23:30)
[2018-12-10] VITALS (13 sets, daily range): BP systolic 120–211; BP diastolic 68–98; PULSE 60–80; RESP 18–22
[2018-12-10] MEDS: ACCU-CHEK XX SCH (01:51)
[2018-12-10] MEDS ORDERED: VANCOMYCIN IV PER PHARMACY XX SCH (04:30)
--- NOTE | 2018-12-10 04:51 | NUR ---
blood culture - gram (+) cocci in pairs and clusters, Dr. Maier notified, got order for Vancomycin IV per pharmacy; will continue to monitor patient
--- NOTE | 2018-12-10 06:28 | NUR ---
end of shift: patient is alert and oriented; sinus rhythm on monitor; BP better controlled after giving IV Hydralazine, Clonidine and Amlodipine; given Morphine for generalized pain; placed on O2 -2 L NC due to some shortness of breath; patient refused Heparion SC, will get order for SCD; needs attended; will endorse to dayshift nurse
[2018-12-10] MEDS: SOD CHLORIDE 0.9% 1,000 ML IV SCH ×2 (06:43→21:00)
[2018-12-10] MEDS ORDERED: glipiZIDE 5 MG TAB PO SCH (07:00)
[2018-12-10] MEDS: morphine SULFATE/PF (2 MG/2 ML) SYG IV PRN ×2 (07:03→12:56)
[2018-12-10] MEDS: INSULIN ASPART [NOVOLOG] 3 ML PEN SC SCH ×7 (08:00→20:35)
--- NOTE | 2018-12-10 08:01 | CONS ---
Assessment/Plan Assessment/Plan Hospital Course (Demo Recall) asked to consult. will be in shortly Consultation Date/Type/Reason Admit Date/Time Dec 09, 2018 at 14:30 Initial Consult Date Date/Time of Note DATE: 12/10/18 TIME: 08:01 Exam/Review of Systems Exam Vitals Vital Signs Date Temp Pulse Resp B/P (MAP) Pulse Ox O2 O2 Flow FiO2 Time Delivery Rate 12/10/18 97.4 80 18 211/98 99 07:20 (135) 12/10/18 Nasal 2.0 04:27 Cannula Intake and Output 12/09/18 12/09/18 12/10/18 1515:00 23:00 07:00 IntakeIntake Total 240 ml 300 ml OutputOutput Total 400 ml BalanceBalance 240 ml -100 ml Results Result Diagram: 12/10/18 0526 12/10/18 0527 Results 24hrs Laboratory Tests Test 12/09/18 14:30 12/09/18 14:35 12/09/18 14:45 12/09/18 15:45 White Blood Count 6.3 Red Blood Count 2.76 #L Hemoglobin 9.2 #L Hematocrit 28.4 #L Mean Corpuscular Volume 102.9 H Mean Corpuscular 33.3 H Hemoglobin Mean Corpuscular 32.4 Hemoglobin Concent Red Cell Distribution 13.2 Width Platelet Count 152 Mean Platelet Volume 11.1 H Immature Granulocytes % 0.300 Neutrophils % 93.2 H Lymphocytes % 3.0 L Monocytes % 3.3 Eosinophils % 0.0 Basophils % 0.2 Nucleated Red Blood 0.0 Cells % Immature Granulocytes # 0.020 Neutrophils # 5.9 Lymphocytes # 0.2 L Monocytes # 0.2 L Eosinophils # 0.0 Basophils # 0.0 Nucleated Red Blood 0.0 Cells # Prothrombin Time 13.7 Prothrombin Time Ratio 1.1 INR International 1.04 Normalized Ratio Activated 28.2 Partial Thromboplast Time Sodium Level 134 L Potassium Level 6.1 *H Chloride Level 107 Carbon Dioxide Level 18 L Anion Gap 9 Blood Urea Nitrogen 48 H Creatinine 3.21 H Est Glomerular Filtrat 20 L Rate mL/min Glucose Level 500 *H Calcium Level 9.0 Total Bilirubin 0.1 L Direct Bilirubin 0.00 Indirect Bilirubin 0.1 Aspartate Amino 30 Transf (AST/SGOT) Alanine 27 Aminotransferase (ALT/SG PT) Alkaline Phosphatase 94 Troponin I 0.040 Total Protein 6.4 Albumin 3.3 Globulin 3.10 Albumin/Globulin Ratio 1.06 POC Venous Lactate 2.2 *H Urine Color YELLOW Urine Clarity CLEAR Urine pH 5.0 Urine Specific [place] 1.017 Urine Ketones NEGATIVE Urine Nitrite NEGATIVE Urine Bilirubin NEGATIVE Urine Urobilinogen NEGATIVE Urine Leukocyte Esterase NEGATIVE Urine Microscopic RBC 2 Urine Microscopic WBC 1 Urine Hemoglobin 1+ H Urine Glucose 3+ H Urine Total Protein 3+ H Bedside Glucose 531 *H Test 12/09/18 17:18 12/09/18 17:56 12/09/18 20:21 12/10/18 05:26 Bedside Glucose 393 H 89 Lactic Acid Level 4.9 *H White Blood Count 8.0 # Red Blood Count 3.23 L Hemoglobin 10.6 L Hematocrit 32.8 L Mean Corpuscular Volume 101.5 H Mean Corpuscular 32.8 Hemoglobin Mean Corpuscular 32.3 Hemoglobin Concent Red Cell Distribution 13.2 Width Platelet Count 183 # Mean Platelet Volume 11.7 H Immature Granulocytes % 0.500 H Neutrophils % 83.7 H Lymphocytes % 8.5 L Monocytes % 6.6 Eosinophils % 0.3 Basophils % 0.4 Nucleated Red Blood 0.0 Cells % Immature Granulocytes # 0.040 H Neutrophils # 6.7 Lymphocytes # 0.7 L Monocytes # 0.5 Eosinophils # 0.0 Basophils # 0.0 Nucleated Red Blood 0.0 Cells # Test 12/10/18 05:27 12/10/18 07:05 Sodium Level 141 Potassium Level 4.8 Chloride Level 114 H Carbon Dioxide Level 18 L Anion Gap 9 Blood Urea Nitrogen 43 H Creatinine 3.14 H Est Glomerular Filtrat 20 L Rate mL/min Glucose Level 63 #L Hemoglobin A1c 10.5 H Lactic Acid Level 1.6 Calcium Level 9.5 Total Bilirubin 0.1 L Direct Bilirubin 0.00 Indirect Bilirubin 0.1 Aspartate Amino 34 Transf (AST/SGOT) Alanine 25 Aminotransferase (ALT/SG PT) Alkaline Phosphatase 92 Total Protein 6.7 Albumin 3.3 Globulin 3.40 H Albumin/Globulin Ratio 0.97 Bedside Glucose 77 Medications Medication Current Medications Clonidine (Catapres) 0.1 mg DAILY PO ; Start 12/10/18 at 09:00 Mycophenolate Sodium (Myfortic) 540 mg Q12 PO Last administered on 12/09/18at 21:31; Admin Dose 540 MG; Start 12/09/18 at 21:00 Prednisone (Prednisone) 5 mg DAILY PO ; Start 12/10/18 at 09:00 Tacrolimus (Prograf) 2 mg QHS PO Last administered on 12/09/18at 21:31; Admin Dose 2 MG; Start 12/09/18 at 21:00 Tacrolimus (Prograf) 3 mg QAM PO ; Start 12/10/18 at 09:00 Diagnostic Test (Pha) (Accu-Chek) 1 ea 02 XX ; Start 12/10/18 at 02:00 Insulin Glargine (Lantus) 13 units DAILY@2000 SC Last administered on 12/09/18at 21:38; Admin Dose 13 UNITS; Start 12/09/18 at 20:00 Insulin Aspart (Novolog Insulin Pen) 4 unit WITH MEALS SC ; Start 12/10/18 at 08:00 Insulin Aspart (Novolog Insulin Pen) NOVOLOG *MILD* ALGORITHM WITH MEALS BEDTIME SC ; Start 12/09/18 at 21:00 Ondansetron HCl (Zofran Inj) 4 mg Q6H PRN IV NAUSEA/VOMITING Last administered on 12/09/18at 23:00; Admin Dose 4 MG; Start 12/09/18 at 18:30 Acetaminophen (Tylenol Tab) 650 mg Q6H PRN PO .PAIN 1-3 OR TEMP Last administered on 12/09/18at 22:14; Admin Dose 650 MG; Start 12/09/18 at 18:30 Morphine Sulfate (morphine SULFATE (PF)) 2 mg Q4H PRN IV .SEVERE PAIN 7-10 Last administered on 12/10/18 07:03; Admin Dose 2 MG; Start 12/09/18 at 18:30 Docusate Sodium (Colace) 100 mg Q12H PRN PO .CONSTIPATION; Start 12/09/18 at 18:30 Bisacodyl (Dulcolax) 5 mg DAILY PRN PO .CONSTIPATION; Start 12/09/18 at 18:30 Famotidine (Pepcid) 20 mg DAILY PO Last administered on 12/09/18at 20:47; Admin D ose 20 MG; Start 12/09/18 at 21:00 Heparin Sodium (Porcine) (Heparin (5000 Units/1ml)) 5,000 unit Q12 SC ; Start 12/09/18 at 21:00 Sodium Chloride 1,000 ml @ 75 mls/hr [id number] IV Last administered on 12/10/18at 06:43; Admin Dose 75 MLS/HR; Start 12/09/18 at 18:30 Miscellaneous Information 1 ea NOTE XX ; Start 12/09/18 at 18:30 Glucose (Glutose) 15 gm Q15M PRN PO DECREASED GLUCOSE; Start 12/09/18 at 18:30 Glucose (Glutose) 22.5 gm Q15M PRN PO DECREASED GLUCOSE; Start 12/09/18 at 18:30 Dextrose (D50w Syringe) 25 ml Q15M PRN IV DECREASED GLUCOSE; Start 12/09/18 at 18:30 Dextrose (D50w Syringe) 50 ml Q15M PRN IV DECREASED GLUCOSE; Start 12/09/18 at 18:30 Glucagon (Glucagen) 1 mg Q15M PRN IM DECREASED GLUCOSE; Start 12/09/18 at 18:30 Glucose (Glutose) 15 gm Q15M PRN BUCCAL DECREASED GLUCOSE; Start 12/09/18 at 18:30 Hydralazine HCl (Apresoline) 20 mg Q4 PRN IV SBP > 160 Last administered on 12/09/18at 21:32; Admin Dose 20 MG; Start 12/09/18 at 21:00 Clonidine (Catapres) 0.1 mg Q6H PRN PO SBP> 160 Last administered on 12/09/18at 22:14; Admin Dose 0.1 MG; Start 12/09/18 at 21:00 Amlodipine Besylate (Norvasc) 10 mg DAILY PO Last administered on 12/09/18at 21:31; Admin Dose 10 MG; Start 12/09/18 at 21:00 Zolpidem Tartrate (Ambien) 5 mg HS PRN PO INSOMNIA; Start 12/09/18 at 23:30 Vancomycin HCl (Vanco Iv Per Pharmacy) VANCOMYCIN PER PHARMACY PER PROTOCOL XX ; Start 12/10/18 at 04:30 Vancomycin/Sodium Chloride 250 ml @ 125 mls/hr Q48H IVPB ; Start 12/10/18 at 15:00 PARAMJIT COTTRELL MD Dec 10, 2018 08:01
[2018-12-10] MEDS: TACROLIMUS 1 MG CAP PO SCH ×2 (08:20→20:34)
[2018-12-10] MEDS: MYCOPHENOLATE (SR) 180 MG TAB PO SCH ×2 (08:20→20:34)
[2018-12-10] MEDS: FAMOTIDINE 20 MG TAB PO SCH (08:20)
[2018-12-10] MEDS: predniSONE 5 MG TAB PO SCH (08:20)
[2018-12-10] MEDS: AMLODIPINE 10 MG TAB PO SCH (08:21)
[2018-12-10] MEDS: HEPARIN 5,000 UNIT/1 ML VIAL SC SCH ×2 (08:22→21:00)
--- NOTE | 2018-12-10 10:30 | QN ---
Documentation Comment seen and excamined HARVINDER BLOOD MD Dec 10, 2018 10:30
--- NOTE | 2018-12-10 11:13 | NUR ---
RX NOTE RE: VANCOMYCIN VANCO PER RX BUN/SCR: 43/3.14 WBC: 8 TMAX: 99.2 ALLERGIES: MAGNESIUM HEIGHT: 68" WEIGHT: 52KG VANCOMYCIN 1GM X1 GIVEN, C/W VANCOMYCIN 750MG IV Q48HR. PHARMACY TO FOLLOW
--- NOTE | 2018-12-10 11:44 | CONS ---
Assessment/Plan Assessment/Plan Hospital Course (Demo Recall) progressive swelling of distal aspect of right ring finger with xray showing further of erosion and lucency involving the distal aspect of the distal phalanx of the right ring finger suspicious for osteomyelitis with improved but slight associated soft tissue swelling Hx of: - OM of R 4th digit: swelling with new erosive changes and osteopenia of the underlying R 4th distal phalanx, suggestive of osteomyelitis; wound culture grew Serratia on 03/18/18 and Serratia + CoNS (likely colonizer) on 04/04/18 ; Pt declined amputation. ESR 39 on 03/18/2018 - mild subtle increased activity within the upper aspect of LUE, nonspecific, on WBC tagged scan on 04/05/2018 - h/o OM of R 3rd fingertip (XR showed periosteal reaction at the tip of R 3rd distal phalanx, suspicious for OM, MRI showed cellulitis of distal R 4th phalanx, without OM) and L 2nd fingertip (XR showed cortical irregularity at the tuft of L 2nd distal phalanx with overlying soft tissue defect, suggesting early OM, MRI showed OM at L 2nd distal phalanx with, cellulitis about L 2nd distal phalanx without drainable fluid collection.) - h/o OM of R 2nd finger s/p amputation at proximal phalanx neck, and h/o OM of L 3rd finger s/p amputation at middle and distal phalanges - DM - Hgb A1c 12.2% - h/o Juan's esophagus and gastritis s/p EGD on 08/12/2017. No H. pylori on Bx - h/o ESRD, was on HD - s/p renal transplant in 2009 (on tacrolimus, mycophenolate and prednisone), chronic renal insufficiency at baseline - BLE atherosclerosis - Seen by Vascular Surgery - onychomycosis, tinea pedis - Seen by Podiatry - rheumatoid arthritis - chronic HCV infection - HTN - dyslipidemia - h/o polysubstance and IV drug use. - h/o pernicious anemia. - h/o hyperparathyroidism - thrombosed graft of LUE Recommendations: - Hold off Vanco - consider vasc surgery eval - cont. zosyn for now - Consider MRI - ESR serially Consultation Date/Type/Reason Admit Date/Time Dec 09, 2018 at 14:30 Date of Consultation: Dec 10, 2018 Type of Consult id Reason for Consultation abx recs Date/Time of Note DATE: 12/10/18 TIME: 11:36 Hx of Present Illness This is a 56 yo male with DM and s/p renal transplant in 2009 (on tacrolimus 3mg bid, mycophenolate 540 mg bid, prednisone 5 mg daily), rheumatoid arthritis and HCV infection. Pt has h/o OM of R 2nd finger s/p amputation at proximal phalanx neck, and h/o OM of L 3rd finger s/p amputation at middle and distal phalanges. Pt was readmitted on 08/08/2017 due to pain in his R 4th finger and L 2nd finger. He was diagnosed with OM of R 3rd fingertip (XR showed periosteal reaction at the tip of R 3rd distal phalanx, suspicious for OM, MRI showed cellulitis of dis jeffrey R 4th phalanx, without OM) and L 2nd fingertip (XR showed cortical irregularity at the tuft of L 2nd distal phalanx with overlying soft tissue defect, suggesting early OM, MRI showed OM at L 2nd distal phalanx with, cellulitis about L 2nd distal phalanx without drainable fluid collection. He com pleted a six week course of Dapto/Zosyn. He has not tolerated Vanco in the past with ARF. He was admitted again in April of 2018 for recurrent OM of Distal fourth digit swelling with new erosive changes and osteopenia of the underlying fourth distal phalanx, suggestive of osteomyelitis.Cxs revealed proteus on that admission. He completed a 6 week course of po levofloxacin at that time. He has now been admitted for progressive swelling of distal aspect of right ring finger with xray showing further of erosion and lucency involving the distal aspect of the distal phalanx of the right ring finger suspicious for osteomyelitis with improved but slight associated soft tissue swelling. Past Medical History Medical History: diabetes, hypertension, renal disease Home Meds Reported Medications Sitagliptin* (Januvia*) 50 Mg Tablet, 50 MG PO DAILY, #30 TAB 12/09/18 Tacrolimus* (Tacrolimus*) 1 Mg Capsule, 3 MG PO QAM, CAP 12/09/18 Tacrolimus* (Tacrolimus*) 1 Mg Capsule, 2 MG PO QHS, CAP 12/09/18 Mycophenolate Sodium* (Mycophenolic Acid*) 180 Mg Tablet.dr, 540 MG PO Q12, TAB 12/09/18 Prednisone* (Prednisone*) 5 Mg Tab, 5 MG PO DAILY, TAB 12/09/18 Glipizide* (Glipizide*) 5 Mg Tablet, 5 MG PO AC BREAKFAST DINNER, TAB 12/09/18 Clonidine Hcl* (Clonidine Hcl*) 0.1 Mg Tab, 0.1 MG PO DAILY, TAB 12/09/18 Insulin Lispro (Humalog) 100 Unit/1 Ml Cartridge, 0 SQ SLIDING SCALE, EA INSURANECE NOT COVERED THIS INSULIN 09/23/18 Discontinued Reported Medications Atorvastatin Calcium (Atorvastatin Calcium) 10 Mg Tablet, 10 MG PO QHS, #30 TAB 09/23/18 Prednisone* (Prednisone*) 5 Mg Tab, 5 MG PO DAILY, TAB 09/23/18 Metoclopramide* (Reglan*) 10 Mg Tablet, 10 MG PO NEEDED, TAB 09/23/18 Glipizide* (Glipizide*) 5 Mg Tablet, 5 MG PO AC BREAKFAST DINNER, TAB 09/23/18 Sitagliptin* (Januvia*) 50 Mg Tablet, 50 MG PO DAILY, #30 TAB 09/23/18 Tacrolimus* (Tacrolimus*) 0.5 Mg Capsule, 2 MG PO Q12, CAP 09/23/18 Clonidine Hcl* (Clonidine Hcl*) 0.1 Mg Tab, 0.1 MG PO DAILY, TAB 09/23/18 Discontinued Scripts Ondansetron (Ondansetron Odt) 4 Mg Tab.rapdis, 4 MG PO Q6H PRN for NAUSEA AND/OR VOMITING, #10 TAB Prov:LIZ OCHOA MD 09/23/18 Aspirin (Aspirin) 81 Mg Chew, 81 MG PO DAILY for 30 Days, TAB Prov:LETI RODRIGUEZ 04/10/18 Mycophenolate Sodium* (Myfortic*) 180 Mg Tab, 540 MG PO BID for 30 Days, TAB Prov:LETI RODRIGUEZ 05/09/17 Medications Current Medications Clonidine (Catapres) 0.1 mg DAILY PO Last administered on 12/10/18at 08:20; Admin Dose 0.1 MG; Start 12/10/18 at 09:00 Mycophenolate Sodium (Myfortic) 540 mg Q12 PO Last administered on 12/10/18at 08:20; Admin Dose 540 MG; Start 12/09/18 at 21:00 Prednisone (Prednisone) 5 mg DAILY PO Last administered on 12/10/18 08:20; Admin Dose 5 MG; Start 12/10/18 at 09:00 Tacrolimus (Prograf) 2 mg QHS PO Last administered on 12/09/18 21:31; Admin Dose 2 MG; Start 12/09/18 at 21:00 Tacrolimus (Prograf) 3 mg QAM PO Last administered on 12/10/18 08:20; Admin Dose 3 MG; Start 12/10/18 at 09:00 Diagnostic Test (Pha) (Accu-Chek) 1 ea 02 XX ; Start 12/10/18 at 02:00 Insulin Glargine (Lantus) 13 units DAILY@2000 SC Last administered on 12/09/18 21:38; Admin Dose 13 UNITS; Start 12/09/18 at 20:00 Insulin Aspart (Novolog Insulin Pen) 4 unit WITH MEALS SC ; Start 12/10/18 at 08:00 Insulin Aspart (Novolog Insulin Pen) NOVOLOG *MILD* ALGORITHM WITH MEALS BEDTIME SC ; Start 12/09/18 at 21:00 Ondansetron HCl (Zofran Inj) 4 mg Q6H PRN IV NAUSEA/VOMITING Last administered on 12/09/18 23:00; Admin Dose 4 MG; Start 12/09/18 at 18:30 Acetaminophen (Tylenol Tab) 650 mg Q6H PRN PO .PAIN 1-3 OR TEMP Last administered on 12/09/18 22:14; Admin Dose 650 MG; Start 12/09/18 at 18:30 Morphine Sulfate (morphine SULFATE (PF)) 2 mg Q4H PRN IV .SEVERE PAIN 7-10 Last administered on 12/10/18 07:03; Admin Dose 2 MG; Start 12/09/18 at 18:30 Docusate Sodium (Colace) 100 mg Q12H PRN PO .CONSTIPATION; Start 12/09/18 at 18:30 Bisacodyl (Dulcolax) 5 mg DAILY PRN PO .CONSTIPATION; Start 12/09/18 at 18:30 Famotidine (Pepcid) 20 mg DAILY PO Last administered on 12/10/18 08:20; Admin Dose 20 MG; Start 12/09/18 at 21:00 Heparin Sodium (Porcine) (Heparin (5000 Units/1ml)) 5,000 unit Q12 SC ; Start 12/09/18 at 21:00 Sodium Chloride 1,000 ml @ 75 mls/hr [id number] IV Last administered on 12/10/18at 06:43; Admin Dose 75 MLS/HR; Start 12/09/18 at 18:30 Miscellaneous Information 1 ea NOTE XX ; Start 12/09/18 at 18:30 Glucose (Glutose) 15 gm Q15M PRN PO DECREASED GLUCOSE; Start 12/09/18 at 18:30 Glucose (Glutose) 22.5 gm Q15M PRN PO DECREASED GLUCOSE; Start 12/09/18 at 18:30 Dextrose (D50w Syringe) 25 ml Q15M PRN IV DECREASED GLUCOSE; Start 12/09/18 at 18:30 Dextrose (D50w Syringe) 50 ml Q15M PRN IV DECREASED GLUCOSE; Start 12/09/18 at 18:30 Glucagon (Glucagen) 1 mg Q15M PRN IM DECREASED GLUCOSE; Start 12/09/18 at 18:30 Glucose (Glutose) 15 gm Q15M PRN BUCCAL DECREASED GLUCOSE; Start 12/09/18 at 18:30 Hydralazine HCl (Apresoline) 20 mg Q4 PRN IV SBP > 160 Last administered on 12/09/18at 21:32; Admin Dose 20 MG; Start 12/09/18 at 21:00 Clonidine (Catapres) 0.1 mg Q6H PRN PO SBP> 160 Last administered on 12/09/18at 22:14; Admin Dose 0.1 MG; Start 12/09/18 at 21:00 Amlodipine Besylate (Norvasc) 10 mg DAILY PO Last administered on 12/10/18at 08:21; Admin Dose 10 MG; Start 12/09/18 at 21:00 Zolpidem Tartrate (Ambien) 5 mg HS PRN PO INSOMNIA; Start 12/09/18 at 23:30 Vancomycin HCl (Vanco Iv Per Pharmacy) VANCOMYCIN PER PHARMACY PER PROTOCOL XX ; Start 12/10/18 at 04:30 Vancomycin/Sodium Chloride 250 ml @ 125 mls/hr Q48H IVPB ; Start 12/11/18 at 15:00 Allergies: Coded Allergies: magnesium (Unverified Allergy, Intermediate, 12/09/18) NUMBNESS AND HOT FUSHES Past Surgical History Past Surgical Hx: other (Status post kidney transplant in 2009) Social History Alcohol Use: none Smoking Status: Never smoker Drug Use: other (Former drug user) Exam/Review of Systems Exam Vitals Vital Signs Date Temp Pulse Resp B/P (MAP) Pulse Ox O2 O2 Flow FiO2 Time Delivery Rate 12/10/18 98.3 70 18 146/78 96 Room Air 11:30 (100) 12/10/18 2.0 08:20 Intake and Output 12/09/18 12/09/18 12/10/18 1515:00 23:00 07:00 IntakeIntake Total 240 ml 300 ml OutputOutput Total 400 ml BalanceBalance 240 ml -100 ml Constitutional: alert, oriented, well developed Psych: no complaints, nl mood/affect Head: normocephalic, atraumatic Eyes: nl conjunctiva, EOMI, nl lids, nl sclera, PERRL Neck: supple, non-tender Respiratory: clear to auscultation, normal air movement Cardiovascular: regular rate and rhythm, nl pulses Extremities: other (purplish necrotic changes of finger. ) Results Result Diagram: 12/10/18 0526 12/10/18 0527 Results 24hrs Laboratory Tests Test 12/09/18 14:30 12/09/18 14:35 12/09/18 14:45 12/09/18 15:45 White Blood Count 6.3 Red Blood Count 2.76 #L Hemoglobin 9.2 #L Hematocrit 28.4 #L Mean Corpuscular Volume 102.9 H Mean Corpuscular 33.3 H Hemoglobin Mean Corpuscular 32.4 Hemoglobin Concent Red Cell Distribution 13.2 Width Platelet Count 152 Mean Platelet Volume 11.1 H Immature Granulocytes % 0.300 Neutrophils % 93.2 H Lymphocytes % 3.0 L Monocytes % 3.3 Eosinophils % 0.0 Basophils % 0.2 Nucleated Red Blood 0.0 Cells % Immature Granulocytes # 0.020 Neutrophils # 5.9 Lymphocytes # 0.2 L Monocytes # 0.2 L Eosinophils # 0.0 Basophils # 0.0 Nucleated Red Blood 0.0 Cells # Prothrombin Time 13.7 Prothrombin Time Ratio 1.1 INR International 1.04 Normalized Ratio Activated 28.2 Partial Thromboplast Time Sodium Level 134 L Potassium Level 6.1 *H Chloride Level 107 Carbon Dioxide Level 18 L Anion Gap 9 Blood Urea Nitrogen 48 H Creatinine 3.21 H Est Glomerular Filtrat 20 L Rate mL/min Glucose Level 500 *H Calcium Level 9.0 Total Bilirubin 0.1 L Direct Bilirubin 0.00 Indirect Bilirubin 0.1 Aspartate Amino 30 Transf (AST/SGOT) Alanine 27 Aminotransferase (ALT/SG PT) Alkaline Phosphatase 94 Troponin I 0.040 Total Protein 6.4 Albumin 3.3 Globulin 3.10 Albumin/Globulin Ratio 1.06 POC Venous Lactate 2.2 *H Urine Color YELLOW Urine Clarity CLEAR Urine pH 5.0 Urine Specific [place] 1.017 Urine Ketones NEGATIVE Urine Nitrite NEGATIVE Urine Bilirubin NEGATIVE Urine Urobilinogen NEGATIVE Urine Leukocyte Esterase NEGATIVE Urine Microscopic RBC 2 Urine Microscopic WBC 1 Urine Hemoglobin 1+ H Urine Glucose 3+ H Urine Total Protein 3+ H Bedside Glucose 531 *H Test 12/09/18 17:18 12/09/18 17:56 12/09/18 20:21 12/10/18 05:26 Bedside Glucose 393 H 89 Lactic Acid Level 4.9 *H White Blood Count 8.0 # Red Blood Count 3.23 L Hemoglobin 10.6 L Hematocrit 32.8 L Mean Corpuscular Volume 101.5 H Mean Corpuscular 32.8 Hemoglobin Mean Corpuscular 32.3 Hemoglobin Concent Red Cell Distribution 13.2 Width Platelet Count 183 # Mean Platelet Volume 11.7 H Immature Granulocytes % 0.500 H Neutrophils % 83.7 H Lymphocytes % 8.5 L Monocytes % 6.6 Eosinophils % 0.3 Basophils % 0.4 Nucleated Red Blood 0.0 Cells % Immature Granulocytes # 0.040 H Neutrophils # 6.7 Lymphocytes # 0.7 L Monocytes # 0.5 Eosinophils # 0.0 Basophils # 0.0 Nucleated Red Blood 0.0 Cells # Test 12/10/18 05:27 12/10/18 07:05 12/10/18 08:17 Sodium Level 141 Potassium Level 4.8 Chloride Level 114 H Carbon Dioxide Level 18 L Anion Gap 9 Blood Urea Nitrogen 43 H Creatinine 3.14 H Est Glomerular Filtrat 20 L Rate mL/min Glucose Level 63 #L Hemoglobin A1c 10.5 H Lactic Acid Level 1.6 Calcium Level 9.5 Total Bilirubin 0.1 L Direct Bilirubin 0.00 Indirect Bilirubin 0.1 Aspartate Amino 34 Transf (AST/SGOT) Alanine 25 Aminotransferase (ALT/SG PT) Alkaline Phosphatase 92 Total Protein 6.7 Albumin 3.3 Globulin 3.40 H Albumin/Globulin Ratio 0.97 Bedside Glucose 77 95 Medications Medication Current Medications Clonidine (Catapres) 0.1 mg DAILY PO Last administered on 12/10/18 08:20; Admin Dose 0.1 MG; Start 12/10/18 at 09:00 Mycophenolate Sodium (Myfortic) 540 mg Q12 PO Last administered on 12/10/18 08:20; Admin Dose 540 MG; Start 12/09/18 at 21:00 Prednisone (Prednisone) 5 mg DAILY PO Last administered on 12/10/18 08:20; Admin Dose 5 MG; Start 12/10/18 at 09:00 Tacrolimus (Prograf) 2 mg QHS PO Last administered on 12/09/18 21:31; Admin Dose 2 MG; Start 12/09/18 at 21:00 Tacrolimus (Prograf) 3 mg QAM PO Last administered on 12/10/18 08:20; Admin Dose 3 MG; Start 12/10/18 at 09:00 Diagnostic Test (Pha) (Accu-Chek) 1 ea 02 XX ; Start 12/10/18 at 02:00 Insulin Glargine (Lantus) 13 units DAILY@2000 SC Last administered on 12/09/18 21:38; Admin Dose 13 UNITS; Start 12/09/18 at 20:00 Insulin Aspart (Novolog Insulin Pen) 4 unit WITH MEALS SC ; Start 12/10/18 at 08:00 Insulin Aspart (Novolog Insulin Pen) NOVOLOG *MILD* ALGORITHM WITH MEALS BEDTIME SC ; Start 12/09/18 at 21:00 Ondansetron HCl (Zofran Inj) 4 mg Q6H PRN IV NAUSEA/VOMITING Last administered on 12/09/18 23:00; Admin Dose 4 MG; Start 12/09/18 at 18:30 Acetaminophen (Tylenol Tab) 650 mg Q6H PRN PO .PAIN 1-3 OR TEMP Last administered on 12/09/18 22:14; Admin Dose 650 MG; Start 12/09/18 at 18:30 Morphine Sulfate (morphine SULFATE (PF)) 2 mg Q4H PRN IV .SEVERE PAIN 7-10 Last administered on 12/10/18 07:03; Admin Dose 2 MG; Start 12/09/18 at 18:30 Docusate Sodium (Colace) 100 mg Q12H PRN PO .CONSTIPATION; Start 12/09/18 at 18:30 Bisacodyl (Dulcolax) 5 mg DAILY PRN PO .CONSTIPATION; Start 12/09/18 at 18:30 Famotidine (Pepcid) 20 mg DAILY PO Last administered on 12/10/18at 08:20; Admin Dose 20 MG; Start 12/09/18 at 21:00 Heparin Sodium (Porcine) (Heparin (5000 Units/1ml)) 5,000 unit Q12 SC ; Start 12/09/18 at 21:00 Sodium Chloride 1,000 ml @ 75 mls/hr [id number] IV Last administered on 12/10/18at 06:43; Admin Dose 75 MLS/HR; Start 12/09/18 at 18:30 Miscellaneous Information 1 ea NOTE XX ; Start 12/09/18 at 18:30 Glucose (Glutose) 15 gm Q15M PRN PO DECREASED GLUCOSE; Start 12/09/18 at 18:30 Glucose (Glutose) 22.5 gm Q15M PRN PO DECREASED GLUCOSE; Start 12/09/18 at 18:30 Dextrose (D50w Syringe) 25 ml Q15M PRN IV DECREASED GLUCOSE; Start 12/09/18 at 18:30 Dextrose (D50w Syringe) 50 ml Q15M PRN IV DECREASED GLUCOSE; Start 12/09/18 at 18:30 Glucagon (Glucagen) 1 mg Q15M PRN IM DECREASED GLUCOSE; Start 12/09/18 at 18:30 Glucose (Glutose) 15 gm Q15M PRN BUCCAL DECREASED GLUCOSE; Start 12/09/18 at 18:30 Hydralazine HCl (Apresoline) 20 mg Q4 PRN IV SBP > 160 Last administered on 12/09/18at 21:32; Admin Dose 20 MG; Start 12/09/18 at 21:00 Clonidine (Catapres) 0.1 mg Q6H PRN PO SBP> 160 Last administered on 12/09/18at 22:14; Admin Dose 0.1 MG; Start 12/09/18 at 21:00 Amlodipine Besylate (Norvasc) 10 mg DAILY PO Last administered on 12/10/18at 08:21; Admin Dose 10 MG; Start 12/09/18 at 21:00 Zolpidem Tartrate (Ambien) 5 mg HS PRN PO INSOMNIA; Start 12/09/18 at 23:30 Vancomycin HCl (Vanco Iv Per Pharmacy) VANCOMYCIN PER PHARMACY PER PROTOCOL XX ; Start 12/10/18 at 04:30 Vancomycin/Sodium Chloride 250 ml @ 125 mls/hr Q48H IVPB ; Start 12/11/18 at 15 :00 PARAMJIT COTTRELL MD Dec 10, 2018 11:44
[2018-12-10] MEDS: PIPER-TAZO 2.25 GM (PMX) 50 ML IVPB SCH ×2 (14:49→21:04)
--- NOTE | 2018-12-10 15:44 | PN ---
Date/Time of Note Date/Time of Note DATE: 12/10/18 TIME: 15:42 Assessment/Plan VTE Prophylaxis Risk score (from [facility] [place]0 risk: 3 SCD applied (from [facility] [place]): No Lines/Catheters IV Catheter Type (from [facility]): Peripheral IV Assessment/Plan Hospital Course Assessment/Plan -Severe sepsis, continue IV fluids monitor lactate, continue broad-spectrum antibiotics. Dr. Olmstead is following in infection disease consultation. -Right middle finger cellulitis with gangrene -Hyperkalemia -Renal failure, patient baseline creatinine is 1.5. Continue IV fluids. Dr. Meyers is following in nephrology consultation. -Status post kidney transplant in 2009. -Diabetes mellitus type 2, hemoglobin A1c is 10.5. Continue Lantus and NovoLog. -Hypertension. -History of right fourth finger gangrene -History of Juan's esophagus and severe gastritis. -Chronic HCV infection -Rheumatoid arthritis -History of polysubstance and IV drug use Further recommendations based on clinical course. Plan of care discussed with Dr. Maier. Result Diagram: 12/10/18 0526 12/10/18 0527 Results 24hrs Laboratory Tests Test 12/09/18 15:45 12/09/18 17:18 12/09/18 17:56 12/09/18 20:21 Bedside Glucose 531 *H 393 H 89 Lactic Acid Level 4.9 *H Test 12/10/18 05:26 12/10/18 05:27 12/10/18 07:05 12/10/18 08:17 White Blood Count 8.0 # Red Blood Count 3.23 L Hemoglobin 10.6 L Hematocrit 32.8 L Mean Corpuscular Volume 101.5 H Mean Corpuscular 32.8 Hemoglobin Mean Corpuscular 32.3 Hemoglobin Concent Red Cell Distribution 13.2 Width Platelet Count 183 # Mean Platelet Volume 11.7 H Immature Granulocytes % 0.500 H Neutrophils % 83.7 H Lymphocytes % 8.5 L Monocytes % 6.6 Eosinophils % 0.3 Basophils % 0.4 Nucleated Red Blood 0.0 Cells % Immature Granulocytes # 0.040 H Neutrophils # 6.7 Lymphocytes # 0.7 L Monocytes # 0.5 Eosinophils # 0.0 Basophils # 0.0 Nucleated Red Blood 0.0 Cells # Sodium Level 141 Potassium Level 4.8 Chloride Level 114 H Carbon Dioxide Level 18 L Anion Gap 9 Blood Urea Nitrogen 43 H Creatinine 3.14 H Est Glomerular Filtrat 20 L Rate mL/min Glucose Level 63 #L Hemoglobin A1c 10.5 H Lactic Acid Level 1.6 Calcium Level 9.5 Total Bilirubin 0.1 L Direct Bilirubin 0.00 Indirect Bilirubin 0.1 Aspartate Amino 34 Transf (AST/SGOT) Alanine 25 Aminotransferase (ALT/SG PT) Alkaline Phosphatase 92 Total Protein 6.7 Albumin 3.3 Globulin 3.40 H Albumin/Globulin Ratio 0.97 Bedside Glucose 77 95 Test 12/10/18 12:01 12/10/18 13:00 Bedside Glucose 81 Urine Random Sodium 106 H Exam/Review of Systems Exam Vitals Vital Signs Date Temp Pulse Resp B/P (MAP) Pulse Ox O2 O2 Flow FiO2 Time Delivery Rate 12/10/18 98.2 73 19 162/77 99 Room Air 15:19 (105) 12/10/18 2.0 08:20 Intake and Output 12/09/18 12/09/18 12/10/18 1515:00 23:00 07:00 IntakeIntake Total 240 ml 300 ml OutputOutput Total 400 ml BalanceBalance 240 ml -100 ml Exam Constitutional: alert, oriented Respiratory: clear to auscultation Cardiovascular: nl pulses Gastrointestinal: soft, non-tender Musculoskeletal: nl extremities to inspection Extremities: normal pulses, other (Right middle finger tip necrosis) 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: nl mental status Skin: nl turgor Results Results 24hrs Laboratory Tests Test 12/09/18 15:45 12/09/18 17:18 12/09/18 17:56 12/09/18 20:21 Bedside Glucose 531 *H 393 H 89 Lactic Acid Level 4.9 *H Test 12/10/18 05:26 12/10/18 05:27 12/10/18 07:05 12/10/18 08:17 White Blood Count 8.0 # Red Blood Count 3.23 L Hemoglobin 10.6 L Hematocrit 32.8 L Mean Corpuscular Volume 101.5 H Mean Corpuscular 32.8 Hemoglobin Mean Corpuscular 32.3 Hemoglobin Concent Red Cell Distribution 13.2 Width Platelet Count 183 # Mean Platelet Volume 11.7 H Immature Granulocytes % 0.500 H Neutrophils % 83.7 H Lymphocytes % 8.5 L Monocytes % 6.6 Eosinophils % 0.3 Basophils % 0.4 Nucleated Red Blood 0.0 Cells % Immature Granulocytes # 0.040 H Neutrophils # 6.7 Lymphocytes # 0.7 L Monocytes # 0.5 Eosinophils # 0.0 Basophils # 0.0 Nucleated Red Blood 0.0 Cells # Sodium Level 141 Potassium Level 4.8 Chloride Level 114 H Carbon Dioxide Level 18 L Anion Gap 9 Blood Urea Nitrogen 43 H Creatinine 3.14 H Est Glomerular Filtrat 20 L Rate mL/min Glucose Level 63 #L Hemoglobin A1c 10.5 H Lactic Acid Level 1.6 Calcium Level 9.5 Total Bilirubin 0.1 L Direct Bilirubin 0.00 Indirect Bilirubin 0.1 Aspartate Amino 34 Transf (AST/SGOT) Alanine 25 Aminotransferase (ALT/SG PT) Alkaline Phosphatase 92 Total Protein 6.7 Albumin 3.3 Globulin 3.40 H Albumin/Globulin Ratio 0.97 Bedside Glucose 77 95 Test 12/10/18 12:01 12/10/18 13:00 Bedside Glucose 81 Urine Random Sodium 106 H Medications Medication Current Medications Clonidine (Catapres) 0.1 mg DAILY PO Last administered on 12/10/18 08:20; Admin Dose 0.1 MG; Start 12/10/18 at 09:00 Mycophenolate Sodium (Myfortic) 540 mg Q12 PO Last administered on 12/10/18 08:20; Admin Dose 540 MG; Start 12/09/18 at 21:00 Prednisone (Prednisone) 5 mg DAILY PO Last administered on 12/10/18 08:20; Admin Dose 5 MG; Start 12/10/18 at 09:00 Tacrolimus (Prograf) 2 mg QHS PO Last administered on 12/09/18 21:31; Admin Dose 2 MG; Start 12/09/18 at 21:00 Tacrolimus (Prograf) 3 mg QAM PO Last administered on 12/10/18 08:20; Admin Dose 3 MG; Start 12/10/18 at 09:00 Diagnostic Test (Pha) (Accu-Chek) 1 ea 02 XX ; Start 12/10/18 at 02:00 Insulin Glargine (Lantus) 13 units DAILY@2000 SC Last administered on 12/09/18 21:38; Admin Dose 13 UNITS; Start 12/09/18 at 20:00 Insulin Aspart (Novolog Insulin Pen) 4 unit WITH MEALS SC Last administered on 12/10/18at 12:06; Admin Dose 4 UNIT; Start 12/10/18 at 08:00 Insulin Aspart (Novolog Insulin Pen) NOVOLOG *MILD* ALGORITHM WITH MEALS BEDTIME SC ; Start 12/09/18 at 21:00 Ondansetron HCl (Zofran Inj) 4 mg Q6H PRN IV NAUSEA/VOMITING Last administered on 12/09/18at 23:00; Admin Dose 4 MG; Start 12/09/18 at 18:30 Acetaminophen (Tylenol Tab) 650 mg Q6H PRN PO .PAIN 1-3 OR TEMP Last administered on 12/09/18at 22:14; Admin Dose 650 MG; Start 12/09/18 at 18:30 Morphine Sulfate (morphine SULFATE (PF)) 2 mg Q4H PRN IV .SEVERE PAIN 7-10 Last administered on 12/10/18at 12:56; Admin Dose 2 MG; Start 12/09/18 at 18:30 Docusate Sodium (Colace) 100 mg Q12H PRN PO .CONSTIPATION; Start 12/09/18 at 18:30 Bisacodyl (Dulcolax) 5 mg DAILY PRN PO .CONSTIPATION; Start 12/09/18 at 18:30 Famotidine (Pepcid) 20 mg DAILY PO Last administered on 12/10/18at 08:20; Admin Dose 20 MG; Start 12/09/18 at 21:00 Heparin Sodium (Porcine) (Heparin (5000 Units/1ml)) 5,000 unit Q12 SC ; Start 12/09/18 at 21:00 Sodium Chloride 1,000 ml @ 75 mls/hr [id number] IV Last administered on 12/10/18at 06:43; Admin Dose 75 MLS/HR; Start 12/09/18 at 18:30 Miscellaneous Information 1 ea NOTE XX ; Start 12/09/18 at 18:30 Glucose (Glutose) 15 gm Q15M PRN PO DECREASED GLUCOSE; Start 12/09/18 at 18:30 Glucose (Glutose) 22.5 gm Q15M PRN PO DECREASED GLUCOSE; Start 12/09/18 at 18:30 Dextrose (D50w Syringe) 25 ml Q15M PRN IV DECREASED GLUCOSE; Start 12/09/18 at 18:30 Dextrose (D50w Syringe) 50 ml Q15M PRN IV DECREASED GLUCOSE; Start 12/09/18 at 18:30 Glucagon (Glucagen) 1 mg Q15M PRN IM DECREASED GLUCOSE; Start 12/09/18 at 18:30 Glucose (Glutose) 15 gm Q15M PRN BUCCAL DECREASED GLUCOSE; Start 12/09/18 at 18:30 Hydralazine HCl (Apresoline) 20 mg Q4 PRN IV SBP > 160 Last administered on 12/09/18at 21:32; Admin Dose 20 MG; Start 12/09/18 at 21:00 Clonidine (Catapres) 0.1 mg Q6H PRN PO SBP> 160 Last administered on 12/09/18at 22:14; Admin Dose 0.1 MG; Start 12/09/18 at 21:00 Amlodipine Besylate (Norvasc) 10 mg DAILY PO Last administered on 12/10/18at 08:21; Admin Dose 10 MG; Start 12/09/18 at 21:00 Zolpidem Tartrate (Ambien) 5 mg HS PRN PO INSOMNIA; Start 12/09/18 at 23:30 Piperacillin Sod/ Tazobactam Sod 50 ml @ 100 mls/hr Q8 IVPB Last administered on 12/10/18at 14:49; Admin Dose 100 MLS/HR; Start 12/10/18 at 14:00 LETI RODRIGUEZ Dec 10, 2018 15:44
--- NOTE | 2018-12-10 17:01 | HP ---
DATE OF ADMISSION: 12/09/2018 TYPE OF CONSULTATION: Renal. REASON FOR CONSULTATION: Acute renal failure. 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 The patient said that the symptoms started 4 days ago and the skin darkening progressed o geremias the last couple of days. Denies any fevers, chills, nausea, vomiting, diarrhea, any chest pain, ay shortness of breath. On admission, lactic acid was elevated. Blood sugar was 500. On admission, labs showed sodium of 134, potassium of 6.1, bicarbonate of 18, BUN of 48, creatinine of 3.21. The patient's baseline creatinine is 1.5 and lactate was 4.9. Renal was consulted. White count was 6.3, hemoglobin 9.2, platelet count 152. The patient received Kayexalate and was admitted for further ma nagement and was started on IV fluids. PAST MEDICAL HISTORY: Significant for: 1. Diabetes. 2. Hypertension. 3. History of right foot gangrene. 4. History of Juan esophagus with severe gastritis. 5. Chronic HCV infection. 6. Rheumatoid arthritis. 7. History of polysubstance abuse. 8. DDRT in 2009. ALLERGIES: MAGNESIUM. PAST SURGICAL HISTORY: Status post DDRT in 2009. SOCIAL HISTORY: Former drug user. MEDICATIONS TAKING AT HOME: 1. Clonidine 0.1. 2. Glipizide 5 mg. 3. Insulin lispro. 4. Prednisone 5. 5. Januvia 50. 6. Mycophenolate 550 q.12. 7. Tacrolimus 3 q.a.m. and 2 q.p.m. REVIEW OF SYSTEMS: The patient denies any chest pain, any shortness of breath, denies any abdominal pain, nausea, vomiting, diarrhea. According to the patient, he has not been eating much. Denies any headache, any blurry vision. Denies any urinary problems. Denies any nocturia. PHYSICAL EXAMINATION: VITAL SIGNS: Blood pressure initially was 132/85, heart rate of 70, afebrile, saturating 96%. GENERAL: The patient is awake, alert, oriented, does not appear to be in any acute distress. NECK: Supple. No JVD. HEART: Regular rate, rhythm. LUNGS: Clear to auscultate bilaterally. EXTREMITIES: The patient had a right middle toe necrosis. NEUROLOGIC: Nonfocal. ABDOMEN: Right abdomen has no tenderness to palpation at the graft site. LABORATORY DATA: Shows BUN of 48, creatinine of 3.21, baseline around 1.5. White count of 8.0, hemo globin 10.6, platelet count 183. UA showed 1+ hemoglobin, urine sodium 106, urine glucose 3+, urine total protein is 3+. ASSESSMENT AND PLAN: This is a 58-year-old male who presented with: 1. Acute on chronic renal failure. The patient denies any symptoms. The patient's baseline creatin ine is 1.5. UA shows proteinuria and glucosuria. The patient could have osmotic diuresis secondary to hyperglycemia, rule out acute tubular necrosis, also rule out obstruction. 2. Hyperkalemia, could be secondary to uncontrolled sugars/worsening renal failure, rule out Prograf toxicity. 3. Metabolic acidosis. 4. Sepsis, questionable. 5. Right middle finger cellulitis with gangrene. 6. Status post donor renal transplantation in 2009. 6. Hypertension. 7. Right 4th toe gangrene. 8. Severe peripheral vascular disease. 9. History of Juan's esophagitis. 10. Chronic hepatitis C virus infection. 11. History of polysubstance use. PLAN: At this period of time, the patient is admitted to med/surg unit. We will get stat renal ultr asound. Renally dose all meds. We would be cautious in giving IV antibiotics like vancomycin and Zo syn that could damage the kidneys. We will also get a stat renal ultrasound to check for hydronephro sis. We will also check for tacrolimus level. Continue the current immunosuppression. Rest of the treatment will depend on the patient's hospitalization course. Dictated By: HARVINDER KUMAR/NAKIA Conf#: [id number] DID#: [id number] CC: LUPE KAPLAN MD; RAMILA GONZALEZ MD;*EndCC*
--- NOTE | 2018-12-10 17:47 | CONS ---
Assessment/Plan Assessment/Plan Problems: (1) Type 2 diabetes mellitus with diabetic peripheral angiopathy with gangrene Status: Chronic Comment: Pt. w/ good glycemic control on insulin doses chosen by primary team based on sq insulin protocol. Consider adding linagliptin if BG highly variable. Will monitor and adjust insulin doses as needed. Of note, pt. w/ poor control at home given A1c of 10.5%, especially in the setting of anemia of chronic renal disease which falsely lowers A1c. Pt. needs DM education more than he needs inpt. endocrinology at this time. Pt. would benefit from outpt. endo follow-up. 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 R 3rd finger became painful and began to darken and turn dusky. Yesterday came to ER for this and denied other symptoms. Despite normal WBC and afebrile (+) elevated lactic acid. Blood cultures (+) for gram (+) cocci. BG w as > 500 mg/dL, A1c 10.5%. Primary team initiated insulin via insulin order set. BG IMMEDIATELY normalized and now in goal range. Endo consulted. Constitutional: no complaints Eyes: no complaints ENT: no complaints Respiratory: no complaints Cardiovascular: no complaints Gastrointestinal: no complaints Genitourinary: no complaints Musculoskeletal: bone/joint pain (R 3rd finger) Neurologic: no complaints Past Medical History Medical History: diabetes, high cholesterol, hypertension, renal disease, other (PVD, RA, gastritis, Juan's Esophagus, ) Home Meds Reported Medications Sitagliptin* (Januvia*) 50 Mg Tablet, 50 MG PO DAILY, #30 TAB 12/09/18 Tacrolimus* (Tacrolimus*) 1 Mg Capsule, 3 MG PO QAM, CAP 12/09/18 Tacrolimus* (Tacrolimus*) 1 Mg Capsule, 2 MG PO QHS, CAP 12/09/18 Mycophenolate Sodium* (Mycophenolic Acid*) 180 Mg Tablet.dr, 540 MG PO Q12, TAB 12/09/18 Prednisone* (Prednisone*) 5 Mg Tab, 5 MG PO DAILY, TAB 12/09/18 Glipizide* (Glipizide*) 5 Mg Tablet, 5 MG PO AC BREAKFAST DINNER, TAB 12/09/18 Clonidine Hcl* (Clonidine Hcl*) 0.1 Mg Tab, 0.1 MG PO DAILY, TAB 12/09/18 Insulin Lispro (Humalog) 100 Unit/1 Ml Cartridge, 0 SQ SLIDING SCALE, EA INSURANECE NOT COVERED THIS INSULIN 09/23/18 Discontinued Reported Medications Atorvastatin Calcium (Atorvastatin Calcium) 10 Mg Tablet, 10 MG PO QHS, #30 TAB 09/23/18 Prednisone* (Prednisone*) 5 Mg Tab, 5 MG PO DAILY, TAB 09/23/18 Metoclopramide* (Reglan*) 10 Mg Tablet, 10 MG PO NEEDED, TAB 09/23/18 Glipizide* (Glipizide*) 5 Mg Tablet, 5 MG PO AC BREAKFAST DINNER, TAB 09/23/18 Sitagliptin* (Januvia*) 50 Mg Tablet, 50 MG PO DAILY, #30 TAB 09/23/18 Tacrolimus* (Tacrolimus*) 0.5 Mg Capsule, 2 MG PO Q12, CAP 09/23/18 Clonidine Hcl* (Clonidine Hcl*) 0.1 Mg Tab, 0.1 MG PO DAILY, TAB 09/23/18 Discontinued Scripts Ondansetron (Ondansetron Odt) 4 Mg Tab.rapdis, 4 MG PO Q6H PRN for NAUSEA AND/OR VOMITING, #10 TAB Prov:LIZ OCHOA MD 09/23/18 Aspirin (Aspirin) 81 Mg Chew, 81 MG PO DAILY for 30 Days, TAB Prov:LETI RODRIGUEZ 04/10/18 Mycophenolate Sodium* (Myfortic*) 180 Mg Tab, 540 MG PO BID for 30 Days, TAB Prov:LETI RODRIGUEZ 05/09/17 Medications Current Medications Clonidine (Catapres) 0.1 mg DAILY PO Last administered on 12/10/18 08:20; Admin Dose 0.1 MG; Start 12/10/18 at 09:00 Mycophenolate Sodium (Myfortic) 540 mg Q12 PO Last administered on 12/10/18 08:20; Admin Dose 540 MG; Start 12/09/18 at 21:00 Prednisone (Prednisone) 5 mg DAILY PO Last administered on 12/10/18 08:20; Admin Dose 5 MG; Start 12/10/18 at 09:00 Tacrolimus (Prograf) 2 mg QHS PO Last administered on 12/09/18 21:31; Admin Dose 2 MG; Start 12/09/18 at 21:00 Tacrolimus (Prograf) 3 mg QAM PO Last administered on 12/10/18 08:20; Admin Dose 3 MG; Start 12/10/18 at 09:00 Diagnostic Test (Pha) (Accu-Chek) 1 ea 02 XX ; Start 12/10/18 at 02:00 Insulin Glargine (Lantus) 13 units DAILY@2000 SC Last administered on 12/09/18 21:38; Admin Dose 13 UNITS; Start 12/09/18 at 20:00 Insulin Aspart (Novolog Insulin Pen) 4 unit WITH MEALS SC Last administered on 12/10/18 12:06; Admin Dose 4 UNIT; Start 12/10/18 at 08:00 Insulin Aspart (Novolog Insulin Pen) NOVOLOG *MILD* ALGORITHM WITH MEALS BEDTIME SC ; Start 12/09/18 at 21:00 Ondansetron HCl (Zofran Inj) 4 mg Q6H PRN IV NAUSEA/VOMITING Last administered on 12/09/18 23:00; Admin Dose 4 MG; Start 12/09/18 at 18:30 Acetaminophen (Tylenol Tab) 650 mg Q6H PRN PO .PAIN 1-3 OR TEMP Last administered on 12/09/18 22:14; Admin Dose 650 MG; Start 12/09/18 at 18:30 Morphine Sulfate (morphine SULFATE (PF)) 2 mg Q4H PRN IV .SEVERE PAIN 7-10 Last administered on 12/10/18 12:56; Admin Dose 2 MG; Start 12/09/18 at 18:30 Docusate Sodium (Colace) 100 mg Q12H PRN PO .CONSTIPATION; Start 12/09/18 at 18:30 Bisacodyl (Dulcolax) 5 mg DAILY PRN PO .CONSTIPATION; Start 12/09/18 at 18:30 Famotidine (Pepcid) 20 mg DAILY PO Last administered on 12/10/18at 08:20; Admin Dose 20 MG; Start 12/09/18 at 21:00 Heparin Sodium (Porcine) (Heparin (5000 Units/1ml)) 5,000 unit Q12 SC ; Start 12/09/18 at 21:00 Sodium Chloride 1,000 ml @ 75 mls/hr [id number] IV Last administered on 12/10/18at 06:43; Admin Dose 75 MLS/HR; Start 12/09/18 at 18:30 Miscellaneous Information 1 ea NOTE XX ; Start 12/09/18 at 18:30 Glucose (Glutose) 15 gm Q15M PRN PO DECREASED GLUCOSE; Start 12/09/18 at 18:30 Glucose (Glutose) 22.5 gm Q15M PRN PO DECREASED GLUCOSE; Start 12/09/18 at 18:30 Dextrose (D50w Syringe) 25 ml Q15M PRN IV DECREASED GLUCOSE; Start 12/09/18 at 18:30 Dextrose (D50w Syringe) 50 ml Q15M PRN IV DECREASED GLUCOSE; Start 12/09/18 at 18:30 Glucagon (Glucagen) 1 mg Q15M PRN IM DECREASED GLUCOSE; Start 12/09/18 at 18:30 Glucose (Glutose) 15 gm Q15M PRN BUCCAL DECREASED GLUCOSE; Start 12/09/18 at 18:30 Hydralazine HCl (Apresoline) 20 mg Q4 PRN IV SBP > 160 Last administered on 12/09/18at 21:32; Admin Dose 20 MG; Start 12/09/18 at 21:00 Clonidine (Catapres) 0.1 mg Q6H PRN PO SBP> 160 Last administered on 12/09/18at 22:14; Admin Dose 0.1 MG; Start 12/09/18 at 21:00 Amlodipine Besylate (Norvasc) 10 mg DAILY PO Last administered on 12/10/18at 08:21; Admin Dose 10 MG; Start 12/09/18 at 21:00 Zolpidem Tartrate (Ambien) 5 mg HS PRN PO INSOMNIA; Start 12/09/18 at 23:30 Piperacillin Sod/ Tazobactam Sod 50 ml @ 100 mls/hr Q8 IVPB Last administered on 12/10/18at 14:49; Admin Dose 100 MLS/HR; Start 12/10/18 at 14:00 Allergies: Coded Allergies: magnesium (Unverified Allergy, Intermediate, 12/09/18) NUMBNESS AND HOT FUSHES Past Surgical History Past Surgical Hx: other (parathyroidectomy, AV-shunt, Kidney transplant, multiple distal finger amputations) Family History Significant Family History: diabetes, vascular disease (CVA) Social History b. 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 PT. VIGOROUSLY DENIES THIS.) Exam/Review of Systems Exam Vitals VS - Last 72 Hours, by Label Date Temp Pulse Resp B/P (MAP) Pulse Ox O2 O2 Flow FiO2 Time Delivery Rate 12/10/18 73 16:13 12/10/18 98.2 73 19 162/77 99 Room Air 15:19 (105) 12/10/18 72 12:15 12/10/18 98.3 70 18 146/78 96 Room Air 11:30 (100) 12/10/18 Nasal 2.0 08:20 Cannula 12/10/18 69 08:16 12/10/18 97.4 80 18 211/98 99 07:20 (135) 12/10/18 98.2 60 18 120/75 98 Nasal 2.0 04:27 (90) Cannula 12/10/18 71 04:00 12/10/18 99.2 79 18 132/68 99 Nasal 2.0 00:30 (89) Cannula 12/10/18 80 00:00 12/09/18 92 170/90 22:38 (116) 12/09/18 91 198/93 22:15 (128) 12/09/18 Nasal 2.0 20:00 Cannula 12/09/18 71 20:00 12/09/18 99.0 77 18 210/101 95 Room Air 19:55 (137) 12/09/18 71 18:47 12/09/18 148/56 17:05 (86) 12/09/18 97.9 64 20 202/101 100 17:00 (134) 12/09/18 98.0 60 20 172/92 96 Room Air 16:32 (118) 12/09/18 98.1 67 16 137/85 100 13:46 (102) Vital Signs Date Temp Pulse Resp B/P (MAP) Pulse Ox O2 O2 Flow FiO2 Time Delivery Rate 12/10/18 73 16:13 12/10/18 98.2 19 162/77 99 Room Air 15:19 (105) 12/10/18 2.0 08:20 Intake and Output 12/09/18 12/09/18 12/10/18 1515:00 23:00 07:00 IntakeIntake Total 240 ml 300 ml OutputOutput Total 400 ml BalanceBalance 240 ml -100 ml Constitutional: alert, oriented, frail Psych: no complaints, nl mood/affect Eyes: nl conjunctiva, EOMI, nl lids, nl sclera, PERRL ENMT: nl external ears & nose, mucosa pink and moist Neck: supple, non-tender; No bruits, No masses, No thyromegaly Respiratory: clear to auscultation, normal air movement Cardiovascular: regular rate and rhythm, murmurs/extra sounds ((+) JUN RUSB); No nl pulses, No edema, No rub Gastrointestinal: soft, nl liver, spleen, bowel sounds, tender ((+) TTP BLQ); No mass, No rebound or guarding Musculoskeletal: No nl extremities to inspection (L distal 3rd digit, R distal 2nd digit amputated; R distal digit ecchymotic and some surrounding erythema) Extremities: No normal pulses, No cyanosis, No clubbing, No edema 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, nl mental status, nl speech, nl strength, other (tremulous) Additional Comments Bedside Glucose - 72 Hours Test 12/09/18 15:45 12/09/18 17:18 12/09/18 20:21 12/10/18 07:05 Bedside 531 393 89 77 Glucose mg/dL (70-220) mg/dL (70-220) mg/dL (70-220) mg/dL (70-220) *H H Test 12/10/18 08:17 12/10/18 12:01 12/10/18 17:29 Bedside 95 81 162 Glucose mg/dL (70-220) mg/dL (70-220) mg/dL (70-220) Results Result Diagram: 12/10/18 0526 12/10/18 0527 Results 24hrs Laboratory Tests Test 12/09/18 17:56 12/09/18 20:21 12/10/18 05:26 12/10/18 05:27 Lactic Acid Level 4.9 *H 1.6 Bedside Glucose 89 White Blood Count 8.0 # Red Blood Count 3.23 L Hemoglobin 10.6 L Hematocrit 32.8 L Mean Corpuscular Volume 101.5 H Mean Corpuscular 32.8 Hemoglobin Mean Corpuscular 32.3 Hemoglobin Concent Red Cell Distribution 13.2 Width Platelet Count 183 # Mean Platelet Volume 11.7 H Immature Granulocytes % 0.500 H Neutrophils % 83.7 H Lymphocytes % 8.5 L Monocytes % 6.6 Eosinophils % 0.3 Basophils % 0.4 Nucleated Red Blood 0.0 Cells % Immature Granulocytes # 0.040 H Neutrophils # 6.7 Lymphocytes # 0.7 L Monocytes # 0.5 Eosinophils # 0.0 Basophils # 0.0 Nucleated Red Blood 0.0 Cells # Sodium Level 141 Potassium Level 4.8 Chloride Level 114 H Carbon Dioxide Level 18 L Anion Gap 9 Blood Urea Nitrogen 43 H Creatinine 3.14 H Est Glomerular Filtrat 20 L Rate mL/min Glucose Level 63 #L Hemoglobin A1c 10.5 H Calcium Level 9.5 Total Bilirubin 0.1 L Direct Bilirubin 0.00 Indirect Bilirubin 0.1 Aspartate Amino 34 Transf (AST/SGOT) Alanine 25 Aminotransferase (ALT/SG PT) Alkaline Phosphatase 92 Total Protein 6.7 Albumin 3.3 Globulin 3.40 H Albumin/Globulin Ratio 0.97 Test 12/10/18 07:05 12/10/18 08:17 12/10/18 12:01 12/10/18 13:00 Bedside Glucose 77 95 81 Urine Eosinophils % 0.0 Urine Random Sodium 106 H Medications Medication Current Medications Clonidine (Catapres) 0.1 mg DAILY PO Last administered on 12/10/18at 08:20; Admin Dose 0.1 MG; Start 12/10/18 at 09:00 Mycophenolate Sodium (Myfortic) 540 mg Q12 PO Last administered on 12/10/18 08:20; Admin Dose 540 MG; Start 12/09/18 at 21:00 Prednisone (Prednisone) 5 mg DAILY PO Last administered on 12/10/18 08:20; Admin Dose 5 MG; Start 12/10/18 at 09:00 Tacrolimus (Prograf) 2 mg QHS PO Last administered on 12/09/18 21:31; Admin Dose 2 MG; Start 12/09/18 at 21:00 Tacrolimus (Prograf) 3 mg QAM PO Last administered on 12/10/18 08:20; Admin Dose 3 MG; Start 12/10/18 at 09:00 Diagnostic Test (Pha) (Accu-Chek) 1 ea 02 XX ; Start 12/10/18 at 02:00 Insulin Glargine (Lantus) 13 units DAILY@2000 SC Last administered on 12/09/18 21:38; Admin Dose 13 UNITS; Start 12/09/18 at 20:00 Insulin Aspart (Novolog Insulin Pen) 4 unit WITH MEALS SC Last administered on 12/10/18 12:06; Admin Dose 4 UNIT; Start 12/10/18 at 08:00 Insulin Aspart (Novolog Insulin Pen) NOVOLOG *MILD* ALGORITHM WITH MEALS BEDTIME SC ; Start 12/09/18 at 21:00 Ondansetron HCl (Zofran Inj) 4 mg Q6H PRN IV NAUSEA/VOMITING Last administered on 12/09/18 23:00; Admin Dose 4 MG; Start 12/09/18 at 18:30 Acetaminophen (Tylenol Tab) 650 mg Q6H PRN PO .PAIN 1-3 OR TEMP Last administered on 12/09/18 22:14; Admin Dose 650 MG; Start 12/09/18 at 18:30 Morphine Sulfate (morphine SULFATE (PF)) 2 mg Q4H PRN IV .SEVERE PAIN 7-10 Last administered on 12/10/18 12:56; Admin Dose 2 MG; Start 12/09/18 at 18:30 Docusate Sodium (Colace) 100 mg Q12H PRN PO .CONSTIPATION; Start 12/09/18 at 18:30 Bisacodyl (Dulcolax) 5 mg DAILY PRN PO .CONSTIPATION; Start 12/09/18 at 18:30 Famotidine (Pepcid) 20 mg DAILY PO Last administered on 12/10/18at 08:20; Admin Dose 20 MG; Start 12/09/18 at 21:00 Heparin Sodium (Porcine) (Heparin (5000 Units/1ml)) 5,000 unit Q12 SC ; Start 12/09/18 at 21:00 Sodium Chloride 1,000 ml @ 75 mls/hr [id number] IV Last administered on 12/10/18at 06:43; Admin Dose 75 MLS/HR; Start 12/09/18 at 18:30 Miscellaneous Information 1 ea NOTE XX ; Start 12/09/18 at 18:30 Glucose (Glutose) 15 gm Q15M PRN PO DECREASED GLUCOSE; Start 12/09/18 at 18:30 Glucose (Glutose) 22.5 gm Q15M PRN PO DECREASED GLUCOSE; Start 12/09/18 at 18:30 Dextrose (D50w Syringe) 25 ml Q15M PRN IV DECREASED GLUCOSE; Start 12/09/18 at 18:30 Dextrose (D50w Syringe) 50 ml Q15M PRN IV DECREASED GLUCOSE; Start 12/09/18 at 18:30 Glucagon (Glucagen) 1 mg Q15M PRN IM DECREASED GLUCOSE; Start 12/09/18 at 18:30 Glucose (Glutose) 15 gm Q15M PRN BUCCAL DECREASED GLUCOSE; Start 12/09/18 at 18:30 Hydralazine HCl (Apresoline) 20 mg Q4 PRN IV SBP > 160 Last administered on 12/09/18at 21:32; Admin Dose 20 MG; Start 12/09/18 at 21:00 Clonidine (Catapres) 0.1 mg Q6H PRN PO SBP> 160 Last administered on 12/09/18at 22:14; Admin Dose 0.1 MG; Start 12/09/18 at 21:00 Amlodipine Besylate (Norvasc) 10 mg DAILY PO Last administered on 12/10/18at 08: 21; Admin Dose 10 MG; Start 12/09/18 at 21:00 Zolpidem Tartrate (Ambien) 5 mg HS PRN PO INSOMNIA; Start 12/09/18 at 23:30 Piperacillin Sod/ Tazobactam Sod 50 ml @ 100 mls/hr Q8 IVPB Last administered on 12/10/18at 14:49; Admin Dose 100 MLS/HR; Start 12/10/18 at 14:00 SYLVESTER CAGLE MD Dec 10, 2018 17:44
[2018-12-10] MEDS: HYDROCODONE/APAP (10/325) TAB PO PRN (18:50)
--- NOTE | 2018-12-10 19:04 | NUR ---
EOSS: Continue NS at 75c/hr, BS checked as ordered and covered with Insulin. Medicated for pain as needed. BP elevated in AM am, BP meds given. All needs attended. Will continue to monitor.
--- NOTE | 2018-12-10 19:34 | CONS ---
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 The patient said that the symptoms started 4 days ago and the skin darkening progressed over the last couple of days. On admission the blood sugar was 500, sodium 134, potassium 6.1, bicarbonate 18, BUN of 48, creatinine of 3.21. The patient's baseline creatinine is 1.5 and that has been going gradually up since 2017. Patient states that he has an appointment at [facility] on December 11, 2018 to have biopsy of the kidney transplant because of the rising creatinine. He underwent a renal ultrasound and that showed that the transplanted kidney is a little a hydronephrotic. Therefore a urological consultation was requested. Patient states that he does have a nocturia about 3 times a night and during the day he voids 4-5 times. He denies any dysuria. He states his urinary stream is strong and there is no gross hematuria. He denies any history of urinary tract infection. The patient does have severe atherosclerosis of his vessels. He does have peripheral vascular disease. He is creatinine has been going up gradually and he was supposed to go to [facility] tomorrow to undergo biopsy of his transplanted kidney. On the ultrasound that he had today it did show a small right hydronephrosis and that is not unusual to see that in the transplanted kidney especially when the bladder is full. I will have the nurse check his postvoid residual after he voids and also may start him on tamsulosin to help him empty his bladder better. A urine culture has already been ordered and was has to make sure there is no urinary tract infection. 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 The patient said that the symptoms started 4 days ago and the skin darkening progressed over the last couple of days. On admission the blood sugar was 500, sodium 134, potassium 6.1, bicarbonate 18, BUN of 48, creatinine of 3.21. The patient's baseline creatinine is 1.5 and that has been going gradually up since 2017. Patient states that he has an appointment at [facility] on December 11, 2018 to have biopsy of the kidney transplant because of the rising creatinine. He underwent a renal ultrasound and that showed that the transplanted kidney is a little a hydronephrotic. Therefore a urological consultation was requested. Patient states that he does have a nocturia about 3 times a night and during the day he voids 4-5 times. He denies any dysuria. He states his urinary stream is strong and there is no gross hematuria. He denies any history of urinary tract infection. Constitutional: no complaints Eyes: no complaints ENT: no complaints Respiratory: No shortness of breath Cardiovascular: No chest pain Gastrointestinal: No nausea, No vomiting Genitourinary: flank pain (Left side about a week earlier but that has subsided.); No dysuria, No hematuria Skin: other (Ischemia and apparent necrosis of the tip of the right middle finger) Neurologic: no complaints Endocrine: other (History of diabetes) Lymphatic: no complaints Psychological: no complaints Immunologic: no complaints Past Medical History Medical History: diabetes, high cholesterol, hypertension, renal disease, other (PVD, RA, gastritis, Juan's Esophagus, ) Home Meds Reported Medications Sitagliptin* (Januvia*) 50 Mg Tablet, 50 MG PO DAILY, #30 TAB 12/09/18 Tacrolimus* (Tacrolimus*) 1 Mg Capsule, 3 MG PO QAM, CAP 12/09/18 Tacrolimus* (Tacrolimus*) 1 Mg Capsule, 2 MG PO QHS, CAP 12/09/18 Mycophenolate Sodium* (Mycophenolic Acid*) 180 Mg Tablet.dr, 540 MG PO Q12, TAB 12/09/18 Prednisone* (Prednisone*) 5 Mg Tab, 5 MG PO DAILY, TAB 12/09/18 Glipizide* (Glipizide*) 5 Mg Tablet, 5 MG PO AC BREAKFAST DINNER, TAB 12/09/18 Clonidine Hcl* (Clonidine Hcl*) 0.1 Mg Tab, 0.1 MG PO DAILY, TAB 12/09/18 Insulin Lispro (Humalog) 100 Unit/1 Ml Cartridge, 0 SQ SLIDING SCALE, EA INSURANECE NOT COVERED THIS INSULIN 09/23/18 Discontinued Reported Medications Atorvastatin Calcium (Atorvastatin Calcium) 10 Mg Tablet, 10 MG PO QHS, #30 TAB 09/23/18 Prednisone* (Prednisone*) 5 Mg Tab, 5 MG PO DAILY, TAB 09/23/18 Metoclopramide* (Reglan*) 10 Mg Tablet, 10 MG PO NEEDED, TAB 09/23/18 Glipizide* (Glipizide*) 5 Mg Tablet, 5 MG PO AC BREAKFAST DINNER, TAB 09/23/18 Sitagliptin* (Januvia*) 50 Mg Tablet, 50 MG PO DAILY, #30 TAB 09/23/18 Tacrolimus* (Tacrolimus*) 0.5 Mg Capsule, 2 MG PO Q12, CAP 09/23/18 Clonidine Hcl* (Clonidine Hcl*) 0.1 Mg Tab, 0.1 MG PO DAILY, TAB 09/23/18 Discontinued Scripts Ondansetron (Ondansetron Odt) 4 Mg Tab.rapdis, 4 MG PO Q6H PRN for NAUSEA AND/OR VOMITING, #10 TAB Prov:LIZ OCHOA MD 09/23/18 Aspirin (Aspirin) 81 Mg Chew, 81 MG PO DAILY for 30 Days, TAB Prov:LETI RODRIGUEZ 04/10/18 Mycophenolate Sodium* (Myfortic*) 180 Mg Tab, 540 MG PO BID for 30 Days, TAB Prov:LETI RODRIGUEZ 05/09/17 Medications Current Medications Mycophenolate Sodium (Myfortic) 540 mg Q12 PO Last administered on 12/10/18at 08:20; Admin Dose 540 MG; Start 12/09/18 at 21:00 Prednisone (Prednisone) 5 mg DAILY PO Last administered on 12/10/18at 08:20; Admin Dose 5 MG; Start 12/10/18 at 09:00 Tacrolimus (Prograf) 2 mg QHS PO Last administered on 12/09/18 21:31; Admin Dose 2 MG; Start 12/09/18 at 21:00 Tacrolimus (Prograf) 3 mg QAM PO Last administered on 12/10/18 08:20; Admin Dose 3 MG; Start 12/10/18 at 09:00 Diagnostic Test (Pha) (Accu-Chek) 1 ea 02 XX ; Start 12/10/18 at 02:00 Insulin Glargine (Lantus) 13 units DAILY@2000 SC Last administered on 12/09/18 21:38; Admin Dose 13 UNITS; Start 12/09/18 at 20:00 Insulin Aspart (Novolog Insulin Pen) 4 unit WITH MEALS SC Last administered on 12/10/18 17:38; Admin Dose 4 UNIT; Start 12/10/18 at 08:00 Insulin Aspart (Novolog Insulin Pen) NOVOLOG *MILD* ALGORITHM WITH MEALS BEDTIME SC Last administered on 12/10/18 17:38; Admin Dose 1 UNIT; Start 12/09/18 at 21:00 Ondansetron HCl (Zofran Inj) 4 mg Q6H PRN IV NAUSEA/VOMITING Last administered on 12/09/18 23:00; Admin Dose 4 MG; Start 12/09/18 at 18:30 Acetaminophen (Tylenol Tab) 650 mg Q6H PRN PO .PAIN 1-3 OR TEMP Last administered on 12/09/18 22:14; Admin Dose 650 MG; Start 12/09/18 at 18:30 Morphine Sulfate (morphine SULFATE (PF)) 2 mg Q4H PRN IV .SEVERE PAIN 7-10 Last administered on 12/10/18 12:56; Admin Dose 2 MG; Start 12/09/18 at 18:30 Docusate Sodium (Colace) 100 mg Q12H PRN PO .CONSTIPATION; Start 12/09/18 at 18:30 Bisacodyl (Dulcolax) 5 mg DAILY PRN PO .CONSTIPATION; Start 12/09/18 at 18:30 Famotidine (Pepcid) 20 mg DAILY PO Last administered on 12/10/18 08:20; Admin Dose 20 MG; Start 12/09/18 at 21:00 Heparin Sodium (Porcine) (Heparin (5000 Units/1ml)) 5,000 unit Q12 SC ; Start 12/09/18 at 21:00 Sodium Chloride 1,000 ml @ 75 mls/hr [id number] IV Last administered on 12/10/18at 06:43; Admin Dose 75 MLS/HR; Start 12/09/18 at 18:30 Miscellaneous Information 1 ea NOTE XX ; Start 12/09/18 at 18:30 Glucose (Glutose) 15 gm Q15M PRN PO DECREASED GLUCOSE; Start 12/09/18 at 18:30 Glucose (Glutose) 22.5 gm Q15M PRN PO DECREASED GLUCOSE; Start 12/09/18 at 18:30 Dextrose (D50w Syringe) 25 ml Q15M PRN IV DECREASED GLUCOSE; Start 12/09/18 at 18:30 Dextrose (D50w Syringe) 50 ml Q15M PRN IV DECREASED GLUCOSE; Start 12/09/18 at 18:30 Glucagon (Glucagen) 1 mg Q15M PRN IM DECREASED GLUCOSE; Start 12/09/18 at 18:30 Glucose (Glutose) 15 gm Q15M PRN BUCCAL DECREASED GLUCOSE; Start 12/09/18 at 18:30 Hydralazine HCl (Apresoline) 20 mg Q4 PRN IV SBP > 160 Last administered on 12/09/18at 21:32; Admin Dose 20 MG; Start 12/09/18 at 21:00 Clonidine (Catapres) 0.1 mg Q6H PRN PO SBP> 160 Last administered on 12/09/18at 22:14; Admin Dose 0.1 MG; Start 12/09/18 at 21:00 Amlodipine Besylate (Norvasc) 10 mg DAILY PO Last administered on 12/10/18at 08:21; Admin Dose 10 MG; Start 12/09/18 at 21:00 Zolpidem Tartrate (Ambien) 5 mg HS PRN PO INSOMNIA; Start 12/09/18 at 23:30 Piperacillin Sod/ Tazobactam Sod 50 ml @ 100 mls/hr Q8 IVPB Last administered on 12/10/18at 14:49; Admin Dose 100 MLS/HR; Start 12/10/18 at 14:00 Acetaminophen/ Hydrocodone Bitart (Novice (10/325)) 1 tab Q6H PRN PO MODERATE PAIN LEVEL 4-6 Last administered on 2/7/19at 18:50; Admin Dose 1 TAB; Start 12/10/18 at 19:00 Clonidine (Catapres) 0.1 mg BID PO ; Start 12/10/18 at 21:00; Status UNV Hydralazine HCl (Apresoline) 25 mg Q8 PO ; Start 12/10/18 at 22:00; Status UNV Allergies: Coded Allergies: magnesium (Unverified Allergy, Intermediate, 12/09/18) NUMBNESS AND HOT FUSHES Past Surgical History Past Surgical Hx: other (parathyroidectomy, AV-shunt, Kidney transplant, multiple distal finger amputations) Social History Alcohol Use: sober Smoking Status: Never smoker Drug Use: cocaine (in past), marijuana (intermittent), other (OF NOTE: MULTIPLE CHART NOTES INDICATE H/O IVDA. PT. VIGOROUSLY DENIES THIS.) Exam/Review of Systems Exam Vitals Vital Signs Date Temp Pulse Resp B/P (MAP) Pulse Ox O2 O2 Flow FiO2 Time Delivery Rate 12/10/18 73 16:13 12/10/18 98.2 19 162/77 99 Room Air 15:19 (105) 12/10/18 2.0 08:20 Intake and Output 12/09/18 12/09/18 12/10/18 1515:00 23:00 07:00 IntakeIntake Total 240 ml 300 ml OutputOutput Total 400 ml BalanceBalance 240 ml -100 ml Constitutional: alert, oriented Psych: no complaints Head: normocephalic Eyes: nl conjunctiva ENMT: nl external ears & nose Neck: supple, non-tender Respiratory: normal air movement; No wheezing Cardiovascular: No jugular venous distention (JVD) Gastrointestinal: soft, non-tender, other (No tenderness over the transplanted kidney) Genitourinary - Male: nl penis, nl scrotum, other (Rectal exam: Prostate is soft and mildly enlarged.) Extremities: other (Tip of right index finger amputated, tip of left middle finger amputated) 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: nl mental status Skin: other (Ischemia of right middle finger) Results Result Diagram: 12/10/1852512/10/18 05 Results 24hrs Laboratory Tests Test 12/09/18 20:21 12/10/18 05:26 12/10/18 05:27 12/10/18 07:05 Bedside Glucose 89 77 White Blood Count 8.0 # Red Blood Count 3.23 L Hemoglobin 10.6 L Hematocrit 32.8 L Mean Corpuscular Volume 101.5 H Mean Corpuscular 32.8 Hemoglobin Mean Corpuscular 32.3 Hemoglobin Concent Red Cell Distribution 13.2 Width Platelet Count 183 # Mean Platelet Volume 11.7 H Immature Granulocytes % 0.500 H Neutrophils % 83.7 H Lymphocytes % 8.5 L Monocytes % 6.6 Eosinophils % 0.3 Basophils % 0.4 Nucleated Red Blood 0.0 Cells % Immature Granulocytes # 0.040 H Neutrophils # 6.7 Lymphocytes # 0.7 L Monocytes # 0.5 Eosinophils # 0.0 Basophils # 0.0 Nucleated Red Blood 0.0 Cells # Sodium Level 141 Potassium Level 4.8 Chloride Level 114 H Carbon Dioxide Level 18 L Anion Gap 9 Blood Urea Nitrogen 43 H Creatinine 3.14 H Est Glomerular Filtrat 20 L Rate mL/min Glucose Level 63 #L Hemoglobin A1c 10.5 H Lactic Acid Level 1.6 Calcium Level 9.5 Total Bilirubin 0.1 L Direct Bilirubin 0.00 Indirect Bilirubin 0.1 Aspartate Amino 34 Transf (AST/SGOT) Alanine 25 Aminotransferase (ALT/SG PT) Alkaline Phosphatase 92 Total Protein 6.7 Albumin 3.3 Globulin 3.40 H Albumin/Globulin Ratio 0.97 Test 12/10/18 08:17 12/10/18 12:01 12/10/18 13:00 12/10/18 17:29 Bedside Glucose 95 81 162 Urine Eosinophils % 0.0 Urine Random Sodium 106 H Imaging Imaging Renal ultrasound: FINDINGS: Bilateral [place] kidneys are atrophic. No hydronephrosis. Transplant right pelvic kidney measures 13 cm in length. Mild hydronephrosis with pelvic wall thickening. The urinary bladder is mildly distended with diffuse wall thickening. Small free fluid. CT of the abdomen and pelvis done in September 2018: The lung bases are clear. The heart size is normal, without pericardial thickening or effusion. The liver is normal in size and density without focal mass or intrahepatic biliary dilatation. The spleen is normal in size and homogeneous in density. The stomach is partially collapsed, but is grossly unremarkable. The pancreas as visualized is normal. The gallbladder and biliary tree are unremarkable and there is no evidence for biliary dilatation. The adrenal glands are symmetric and normal. Bilateral calcified atrophic kidneys again seen. The aorta is of normal caliber. Aortic vascular calcifications are present. Extensive calcifications in the splenic artery. There is no retroperitoneal lymphadenopathy. The paul hepatis region is clear. The bowel and mesentery, as visualized, are equally unremarkable. CT pelvis: Transcribe kidney again seen in the right iliac fossa, with mild perinephric fluid and fat inflammatory changes. A contrast enhanced CT examination the abdomen and pelvis may be of further use. The small bowel loops situated within the pelvis are unremarkable. The pelvic organs are otherwise normal. The pelvic sidewalls and inguinal regions are clear. The sigmoid colon and rectum are remarkable for mild sigmoid diverticulosis. No mass, lymphadenopathy, or free fluid is seen. No acute inflammation is seen. Dystrophic calcifications in the bilateral seminal vesicles and in the arterial structures over the pelvis. The surrounding osseous structures are degenerative changes in the bilateral hips with joint compartment narrowing and marginal osteophytes. No osteolytic or osteoblastic lesion is detected. Medications Medication Current Medications Mycophenolate Sodium (Myfortic) 540 mg Q12 PO Last administered on 12/10/18 08:20; Admin Dose 540 MG; Start 12/09/18 at 21:00 Prednisone (Prednisone) 5 mg DAILY PO Last administered on 12/10/18 08:20; Admin Dose 5 MG; Start 12/10/18 at 09:00 Tacrolimus (Prograf) 2 mg QHS PO Last administered on 12/09/18 21:31; Admin Dose 2 MG; Start 12/09/18 at 21:00 Tacrolimus (Prograf) 3 mg QAM PO Last administered on 12/10/18 08:20; Admin Dose 3 MG; Start 12/10/18 at 09:00 Diagnostic Test (Pha) (Accu-Chek) 1 ea 02 XX ; Start 12/10/18 at 02:00 Insulin Glargine (Lantus) 13 units DAILY@2000 SC Last administered on 12/09/18 21:38; Admin Dose 13 UNITS; Start 12/09/18 at 20:00 Insulin Aspart (Novolog Insulin Pen) 4 unit WITH MEALS SC Last administered on 12/10/18 17:38; Admin Dose 4 UNIT; Start 12/10/18 at 08:00 Insulin Aspart (Novolog Insulin Pen) NOVOLOG *MILD* ALGORITHM WITH MEALS BEDTIME SC Last administered on 12/10/18 17:38; Admin Dose 1 UNIT; Start 12/09/18 at 21:00 Ondansetron HCl (Zofran Inj) 4 mg Q6H PRN IV NAUSEA/VOMITING Last administered on 12/09/18at 23:00; Admin Dose 4 MG; Start 12/09/18 at 18:30 Acetaminophen (Tylenol Tab) 650 mg Q6H PRN PO .PAIN 1-3 OR TEMP Last administered on 12/09/18at 22:14; Admin Dose 650 MG; Start 12/09/18 at 18:30 Morphine Sulfate (morphine SULFATE (PF)) 2 mg Q4H PRN IV .SEVERE PAIN 7-10 Last administered on 12/10/18at 12:56; Admin Dose 2 MG; Start 12/09/18 at 18:30 Docusate Sodium (Colace) 100 mg Q12H PRN PO .CONSTIPATION; Start 12/09/18 at 18:30 Bisacodyl (Dulcolax) 5 mg DAILY PRN PO .CONSTIPATION; Start 12/09/18 at 18:30 Famotidine (Pepcid) 20 mg DAILY PO Last administered on 12/10/18at 08:20; Admin Dose 20 MG; Start 12/09/18 at 21:00 Heparin Sodium (Porcine) (Heparin (5000 Units/1ml)) 5,000 unit Q12 SC ; Start 12/09/18 at 21:00 Sodium Chloride 1,000 ml @ 75 mls/hr [id number] IV Last administered on 12/10/18at 06:43; Admin Dose 75 MLS/HR; Start 12/09/18 at 18:30 Miscellaneous Information 1 ea NOTE XX ; Start 12/09/18 at 18:30 Glucose (Glutose) 15 gm Q15M PRN PO DECREASED GLUCOSE; Start 12/09/18 at 18:30 Glucose (Glutose) 22.5 gm Q15M PRN PO DECREASED GLUCOSE; Start 12/09/18 at 18:30 Dextrose (D50w Syringe) 25 ml Q15M PRN IV DECREASED GLUCOSE; Start 12/09/18 at 18:30 Dextrose (D50w Syringe) 50 ml Q15M PRN IV DECREASED GLUCOSE; Start 12/09/18 at 18:30 Glucagon (Glucagen) 1 mg Q15M PRN IM DECREASED GLUCOSE; Start 12/09/18 at 18:30 Glucose (Glutose) 15 gm Q15M PRN BUCCAL DECREASED GLUCOSE; Start 12/09/18 at 18:30 Hydralazine HCl (Apresoline) 20 mg Q4 PRN IV SBP > 160 Last administered on 12/09/18at 21:32; Admin Dose 20 MG; Start 12/09/18 at 21:00 Clonidine (Catapres) 0.1 mg Q6H PRN PO SBP> 160 Last administered on 12/09/18at 22:14; Admin Dose 0.1 MG; Start 12/09/18 at 21:00 Amlodipine Besylate (Norvasc) 10 mg DAILY PO Last administered on 12/10/18at 08:21; Admin Dose 10 MG; Start 12/09/18 at 21:00 Zolpidem Tartrate (Ambien) 5 mg HS PRN PO INSOMNIA; Start 12/09/18 at 23:30 Piperacillin Sod/ Tazobactam Sod 50 ml @ 100 mls/hr Q8 IVPB Last administered on 12/10/18at 14:49; Admin Dose 100 MLS/HR; Start 12/10/18 at 14:00 Acetaminophen/ Hydrocodone Bitart (Novice (10/325)) 1 tab Q6H PRN PO MODERATE PAIN LEVEL 4-6 Last administered on 12/10/18at 18:50; Admin Dose 1 TAB; Start 12/10/18 at 19:00 Clonidine (Catapres) 0.1 mg BID PO ; Start 12/10/18 at 21:00; Status UNV Hydralazine HCl (Apresoline) 25 mg Q8 PO ; Start 12/10/18 at 22:00; Status UNV RAMILA GONZALEZ MD Dec 10, 2018 19:24
[2018-12-10] MEDS: TAMSULOSIN (SR) 0.4 MG CAP PO SCH (20:34)
[2018-12-10] MEDS: INSULIN GLARGINE [LANTus] (100 UNITS/ML) SYG SC SCH (20:41)
--- NOTE | 2018-12-10 23:57 | CONS ---
DATE OF ADMISSION: 12/09/2018 DATE OF CONSULTATION: 12/10/2018 REASON FOR CONSULTATION: Hypertension. REQUESTING PHYSICIAN: Lul Kaplan MD. HISTORY OF PRESENT ILLNESS: Mr. Manley is a 58-year-old male with history of diabetes mellitus, Juan's esophagus, rheumatoid arthritis, kidney transplant in 2009, and renal failure who presents with gangrenous changes of the right middle finger. Initially upon arrival, temperature 98.1, blood pressure 137/85, pulse 67, respiratory rate 16, satting 100%. The patient's labs were notable for white count 6.3, hemoglobin 9.2, platelet count 152. Sodium 134, potassium 6.1, creatinine 3.21, BUN of 48, glucose of 500. Troponin negative. The patient underwent a hand x-ray revealing further erosion and this involved the distal aspect of the phalanx of the right ring finger, suspicious for osteomyelitis which is improved with slight associated soft tissue swelling. There is increased soft tissue swelling around the soft tissue of the right middle finger, the osseous segments appeared unchanged with slight sclerosis and shortening of the tuft, and has previous amputations of proximal phalanx of the right index finger. The patient had no current chart for my review at this time. The patient had been admitted to floor, and since being admitted to the floor, the patient has continued to have elevated systolic blood pressures, is labile but as high as 160s and even 200 at times. PAST MEDICAL HISTORY: As above in HPI. MEDICATIONS CURRENTLY IN HOSPITAL: 1. Prednisone 5 mg a day. 2. Clonidine 0.1 mg daily. 3. Ambien. 4. Tacrolimus (Prograf). 5. Pepcid. 6. Heparin. 7. Hydralazine. 8. Norvasc. 9. IV fluid hydration. 10. Lantus. ALLERGIES: MAGNESIUM. SOCIAL HISTORY: History of polysubstance abuse. None currently. FAMILY HISTORY: No history of sudden cardiac or early CAD. REVIEW OF SYSTEMS: As above in HPI. CONSTITUTIONAL: No fevers, chills. PULMONARY: No current shortness of breath. CARDIOVASCULAR: No current chest pain. GASTROINTESTINAL: No vomiting. GENITOURINARY: Renal failure. PSYCHIATRIC: No documented psych history. NEUROLOGIC: No documented CVA. ENDOCRINE: Diabetes mellitus. PHYSICAL EXAMINATION: VITAL SIGNS: Temperature 98.2, blood pressure 162/77, pulse 73, respiratory rate 19, satting 99%. GENERAL: The patient is alert, awake, in no acute distress. NECK: JVP approximately 8 to 9 cm of water. CHEST: Fair air movement throughout. HEART: Regular rate and rhythm. Normal S1, S2, I/ systolic murmur, nondisplaced PMI. ABDOMEN: Positive bowel sounds, soft. EXTREMITIES: No significant pitting edema, 1+ pulses bilateral posterior tibial. LABORATORY DATA: Most recently from today, sodium 141, potassium 4.8, creatinine of 3.1, BUN of 43, white count of 8, hemoglobin 10.6, platelet count 183. IMAGING STUDIES: As above in HPI. No further imaging studies for my review at this time. ELECTROCARDIOGRAM: No electrocardiogram for my review at this time. IMPRESSION: 1. Hypertension, uncontrolled. 2. Gangrenous changes of the patient's finger. 3. Renal failure. 4. Rheumatoid arthritis. 5. Diabetes mellitus. 6. History of Juan's esophagus. 7. Dyslipidemia. RECOMMENDATIONS: 1. At this time, would maintain the patient on telemetry monitoring to follow rhythm and rates closely. 2. Would continue the patient's Norvasc and at this time in the setting of renal failure, will add hydralazine in order to improve overall systolic blood pressure control, likely somewhat labile due to clonidine dosing daily and would just like to wean this off as possible. 3. Continue the patient's oral hypoglycemics, following blood sugars closely. 4. Check a 2D echo to further assess patient's ejection fraction, wall motion and any major valve abnormalities, and will completely rule out myocardial infarction. Additionally, we will check a baseline EKG now and repeat EKG in the morning to assess for any significant abnormalities or changes, and will check a fasting lipid panel for general risk stratification at this time. 5. Further workup and treatment of patient's ongoing clinical issues including gangrenous finger per PMD and alternative consultations. Thank you for allowing me to take part in the care of this patient. I will continue to follow very closely with you with further recommendations to be made as the patient progresses through his inpatient hospital clinical course. Dictated By: ABDELRAHMAN DELUNA/NAKIA Conf#: [id number] DID#: [id number] CC: LUL KAPLAN MD;*EndCC* MTDD
[2018-12-11] VITALS (12 sets, daily range): BP systolic 117–161; BP diastolic 68–81; PULSE 60–97; RESP 17–19
[2018-12-11] MEDS: ACCU-CHEK XX SCH (00:38)
[2018-12-11] MEDS: HYDROCODONE/APAP (10/325) TAB PO PRN ×4 (01:07→23:33)
[2018-12-11] MEDS: PIPER-TAZO 2.25 GM (PMX) 50 ML IVPB SCH ×3 (05:12→22:37)
[2018-12-11] MEDS: INSULIN ASPART [NOVOLOG] 3 ML PEN SC SCH ×7 (08:00→21:00)
[2018-12-11] MEDS: AMLODIPINE 10 MG TAB PO SCH (08:51)
[2018-12-11] MEDS: MYCOPHENOLATE (SR) 180 MG TAB PO SCH (08:52)
[2018-12-11] MEDS: TACROLIMUS 1 MG CAP PO SCH ×2 (08:52→20:58)
[2018-12-11] MEDS: predniSONE 5 MG TAB PO SCH (08:53)
[2018-12-11] MEDS: FAMOTIDINE 20 MG TAB PO SCH (08:53)
[2018-12-11] MEDS: HEPARIN 5,000 UNIT/1 ML VIAL SC SCH ×2 (09:00→20:14)
[2018-12-11] MEDS: SOD CHLORIDE 0.9% 1,000 ML IV SCH ×2 (09:57→21:14)
[2018-12-11] MEDS ORDERED: morphine 2 MG INJ IV PRN (11:22)
--- NOTE | 2018-12-11 12:03 | CONS ---
[facility] Name: Esvin Manley Unit Number: [id number] Date of : 1960 Patient Status: Admitted Inpatient Attending Doctor: Lul Maier MD Edit: HARVINDER BLOOD MD on 12/11/18 @ 22:10 PT SEEN an examined with RN OPERATING ROOM Acute on chronic renal failure, spoke to [facility] Cr was 2.5 in 10/20 now 3.19 culd be due to sepsis vs ATN vs prograft toxicity vs mild hydro iv fluids hold myfortic due to bacterimia progratt levels pending urology called spoke to [facility] will accept pt for higher level of care > will need renal biopsy and transplant urology dr alvarado renal tranplant [facility] will see pt renally dose all meds avodi nephrotoxins Assessment/Plan Assessment/Plan Hospital Course (Demo Recall) 1. Acute on chronic renal failure. Hydronephrosis. 2. Hyperkalemia, could be secondary to uncontrolled sugars/worsening renal failure, rule out Prograf toxicity. 3. Metabolic acidosis. 4. Sepsis, questionable. 5. Right middle finger cellulitis with gangrene. 6. Status post donor renal transplantation in 2009. 6. Hypertension. 7. Right 4th toe gangrene. 8. Severe peripheral vascular disease. 9. History of Juan's esophagitis. 10. Chronic hepatitis C virus infection. 11. History of polysubstance use. 12. DM type II Assessment/Plan (Daily) -creatinine the same -c/w IV fluids - hydronephrosis management dr Noguera. -continue the current immunosuppression. Consultation Date/Type/Reason Admit Date/Time Dec 09, 2018 at 14:30 Initial Consult Date 12/10/18 Type of Consult nephrology Reason for Consultation dr Meyers Requesting Provider: HARVINDER BLOOD MD Date/Time of Note DATE: 12/11/18 TIME: 12:00 24 HR Interval Summary Constitutional: no complaints Exam/Review of Systems Exam Vitals Vital Signs Date Temp Pulse Resp B/P (MAP) Pulse Ox O2 O2 Flow FiO2 Time Delivery Rate 12/11/18 98.2 97 18 161/81 99 11:13 (107) 12/10/18 Nasal 2.0 23:11 Cannula Intake and Output 12/10/18 12/10/18 12/11/18 1515:00 23:00 07:00 IntakeIntake Total 680 ml 250 ml OutputOutput Total 300 ml 300 ml BalanceBalance -300 ml 680 ml -50 ml Constitutional: alert Head: normocephalic ENMT: nl external ears & nose Neck: supple Respiratory: clear to auscultation Cardiovascular: regular rate and rhythm Gastrointestinal: soft Results Result Diagram: 12/10/18 0526 12/11/18 1016 Results 24hrs Laboratory Tests Test 12/10/18 12:01 12/10/18 13:00 12/10/18 17:29 12/10/18 20:33 Bedside Glucose 81 162 172 Urine Eosinophils % 0.0 Urine Random Sodium 106 H Test 12/11/18 00:19 12/11/18 00:32 12/11/18 01:01 12/11/18 05:22 Creatine Kinase 26 26 Creatine Kinase Index 2.9 3.6 Creatinine Kinase MB 0.76 0.94 (Mass) Troponin I 0.086 0.080 Bedside Glucose 59 L 106 Test 12/11/18 08:44 12/11/18 09:11 12/11/18 10:16 12/11/18 11:28 Bedside Glucose 69 L 113 69 L Sodium Level 138 Potassium Level 4.8 Chloride Level 116 H Carbon Dioxide Level 18 L Anion Gap 4 L Blood Urea Nitrogen 36 H Creatinine 3.19 H Est Glomerular Filtrat 20 L Rate mL/min Glucose Level 61 L Calcium Level 9.1 Medications Medication Current Medications Mycophenolate Sodium (Myfortic) 540 mg Q12 PO Last administered on 12/11/18at 08:52; Admin Dose 540 MG; Start 12/09/18 at 21:00 Prednisone (Prednisone) 5 mg DAILY PO Last administered on 12/11/18at 08:53; Admi n Dose 5 MG; Start 12/10/18 at 09:00 Tacrolimus (Prograf) 2 mg QHS PO Last administered on 12/10/18 20:34; Admin Dose 2 MG; Start 12/09/18 at 21:00 Tacrolimus (Prograf) 3 mg QAM PO Last administered on 12/11/18 08:52; Admin Dose 3 MG; Start 12/10/18 at 09:00 Diagnostic Test (Pha) (Accu-Chek) 1 ea 02 XX Last administered on 12/11/18 00:38; Admin Dose 1 EA; Start 12/10/18 at 02:00 Insulin Glargine (Lantus) 13 units DAILY@2000 SC Last administered on 12/10/18 20:41; Admin Dose 13 UNITS; Start 12/09/18 at 20:00 Insulin Aspart (Novolog Insulin Pen) 4 unit WITH MEALS SC Last administered on 12/11/18 09:33; Admin Dose 4 UNIT; Start 12/10/18 at 08:00 Insulin Aspart (Novolog Insulin Pen) NOVOLOG *MILD* ALGORITHM WITH MEALS BEDTIME SC Last administered on 12/10/18 17:38; Admin Dose 1 UNIT; Start 12/09/18 at 21:00 Ondansetron HCl (Zofran Inj) 4 mg Q6H PRN IV NAUSEA/VOMITING Last administered on 12/09/18 23:00; Admin Dose 4 MG; Start 12/09/18 at 18:30 Acetaminophen (Tylenol Tab) 650 mg Q6H PRN PO .PAIN 1-3 OR TEMP Last administered on 12/09/18 22:14; Admin Dose 650 MG; Start 12/09/18 at 18:30 Docusate Sodium (Colace) 100 mg Q12H PRN PO .CONSTIPATION; Start 12/09/18 at 18:30 Bisacodyl (Dulcolax) 5 mg DAILY PRN PO .CONSTIPATION; Start 12/09/18 at 18:30 Famotidine (Pepcid) 20 mg DAILY PO Last administered on 12/11/18 08:53; Admin Dose 20 MG; Start 12/09/18 at 21:00 Heparin Sodium (Porcine) (Heparin (5000 Units/1ml)) 5,000 unit Q12 SC ; Start 12/09/18 at 21:00 Sodium Chloride 1,000 ml @ 75 mls/hr [id number] IV Last administered on 12/11/18 09:57; Admin Dose 75 MLS/HR; Start 12/09/18 at 18:30 Miscellaneous Information 1 ea NOTE XX ; Start 12/09/18 at 18:30 Glucose (Glutose) 15 gm Q15M PRN PO DECREASED GLUCOSE; Start 12/09/18 at 18:30 Glucose (Glutose) 22.5 gm Q15M PRN PO DECREASED GLUCOSE; Start 12/09/18 at 18:30 Dextrose (D50w Syringe) 25 ml Q15M PRN IV DECREASED GLUCOSE; Start 12/09/18 at 18:30 Dextrose (D50w Syringe) 50 ml Q15M PRN IV DECREASED GLUCOSE; Start 12/09/18 at 18:30 Glucagon (Glucagen) 1 mg Q15M PRN IM DECREASED GLUCOSE; Start 12/09/18 at 18:30 Glucose (Glutose) 15 gm Q15M PRN BUCCAL DECREASED GLUCOSE; Start 12/09/18 at 18:30 Hydralazine HCl (Apresoline) 20 mg Q4 PRN IV SBP > 160 Last administered on 12/09/18 21:32; Admin Dose 20 MG; Start 12/09/18 at 21:00 Clonidine (Catapres) 0.1 mg Q6H PRN PO SBP> 160 Last administered on 12/09/18 22:14; Admin Dose 0.1 MG; Start 12/09/18 at 21:00 Amlodipine Besylate (Norvasc) 10 mg DAILY PO Last administered on 12/11/18 08: 51; Admin Dose 10 MG; Start 12/09/18 at 21:00 Zolpidem Tartrate (Ambien) 5 mg HS PRN PO INSOMNIA; Start 12/09/18 at 23:30 Piperacillin Sod/ Tazobactam Sod 50 ml @ 100 mls/hr Q8 IVPB Last administered on 12/11/18 05:12; Admin Dose 100 MLS/HR; Start 12/10/18 at 14:00 Acetaminophen/ Hydrocodone Bitart ([place] (10/325)) 1 tab Q6H PRN PO MODERATE PAIN LEVEL 4-6 Last administered on 12/11/18 08:52; Admin Dose 1 TAB; Start 12/10/18 at 19:00 Clonidine (Catapres) 0.1 mg BID PO Last administered on 2/8/19at 11:04; Admin Dose 0.1 MG; Start 12/10/18 at 21:00 Hydralazine HCl (Apresoline) 25 mg Q8 PO Last administered on 12/11/18at 05:12; Admin Dose 25 MG; Start 12/10/18 at 22:00 Tamsulosin HCl (Flomax) 0.4 mg HS PO Last administered on 12/10/18at 20:34; Admin Dose 0.4 MG; Start 12/10/18 at 21:00 Morphine Sulfate (morphine) 2 mg Q4H PRN IV .SEVERE PAIN 7-10; Start 12/11/18 at 11:22 GENNARO GAO Dec 11, 2018 12:02
--- NOTE | 2018-12-11 12:40 | CONS ---
Assessment/Plan Assessment/Plan Hospital Course (Demo Recall) IMPRESSION: 1. Hypertension-labile 2. Gangrenous changes of the patient's finger. 3. Renal failure on HD 4. Rheumatoid arthritis. 5. Diabetes mellitus. 6. History of Juan's esophagus. 7. Dyslipidemia. Recc: -Tele -serial ecg's -Continue clonidine and increase hydralazine -Continue Norvasc -Continue immunosuppresives -HD for volume removal Consultation Date/Type/Reason Admit Date/Time Dec 09, 2018 at 14:30 Initial Consult Date 12/10/18 Type of Consult Cardiology Reason for Consultation HTN Requesting Provider: HARVINDER BLOOD MD Date/Time of Note DATE: 12/11/18 TIME: 12:36 Exam/Review of Systems Vital Signs Vitals Vital Signs Date Temp Pulse Resp B/P (MAP) Pulse Ox O2 O2 Flow FiO2 Time Delivery Rate 12/11/18 98.2 97 18 161/81 99 11:13 (107) 12/10/18 Nasal 2.0 23:11 Cannula Intake and Output 12/10/18 12/10/18 12/11/18 1515:00 23:00 07:00 IntakeIntake Total 680 ml 250 ml OutputOutput Total 300 ml 300 ml BalanceBalance -300 ml 680 ml -50 ml Exam Exam Review of Systems: CONSTITUTIONAL: No fevers, chills. PULMONARY: No sob CARDIOVASCULAR: No chest pain/palpitations GASTROINTESTINAL: No nausea/vomiting. GENITOURINARY: No hematuria/dysuria. MUSCULOSKELETAL: No myagias/arthalgias. PSYCHIATRIC: The patient denies depression. NEUROLOGIC: No weakness Constitutional: alert Psych: no complaints Head: normocephalic ENMT: mucosa pink and moist Neck: supple, jvd (9 cm water) Respiratory: diminished breath sounds (at bases/B) Cardiovascular: regular rate and rhythm Gastrointestinal: soft, non-tender Musculoskeletal: muscle tone (normal) Extremities: other (gangrenous changes of finger) 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: other (No focal deficits) Labs Result Diagram: 12/10/18 0526 12/11/18 1016 Results 24hrs Laboratory Tests Test 12/10/18 13:00 12/10/18 17:29 12/10/18 20:33 12/11/18 00:19 Urine Eosinophils % 0.0 Urine Random Sodium 106 H Bedside Glucose 162 172 Creatine Kinase 26 Creatine Kinase Index 2.9 Creatinine Kinase MB 0.76 (Mass) Troponin I 0.086 Test 12/11/18 00:32 12/11/18 01:01 12/11/18 05:22 12/11/18 08:44 Bedside Glucose 59 L 106 69 L Creatine Kinase 26 Creatine Kinase Index 3.6 Creatinine Kinase MB 0.94 (Mass) Troponin I 0.080 Test 12/11/18 09:11 12/11/18 10:16 12/11/18 11:28 12/11/18 12:10 Bedside Glucose 113 69 L 127 Sodium Level 138 Potassium Level 4.8 Chloride Level 116 H Carbon Dioxide Level 18 L Anion Gap 4 L Blood Urea Nitrogen 36 H Creatinine 3.19 H Est Glomerular Filtrat 20 L Rate mL/min Glucose Level 61 L Calcium Level 9.1 Medications Medications Current Medications Mycophenolate Sodium (Myfortic) 540 mg Q12 PO Last administered on 12/11/18 08:52; Admin Dose 540 MG; Start 12/09/18 at 21:00 Prednisone (Prednisone) 5 mg DAILY PO Last administered on 12/11/18 08:53; Admin Dose 5 MG; Start 12/10/18 at 09:00 Tacrolimus (Prograf) 2 mg QHS PO Last administered on 12/10/18 20:34; Admin Dose 2 MG; Start 12/09/18 at 21:00 Tacrolimus (Prograf) 3 mg QAM PO Last administered on 12/11/18 08:52; Admin Dose 3 MG; Start 12/10/18 at 09:00 Diagnostic Test (Pha) (Accu-Chek) 1 ea 02 XX Last administered on 12/11/18 00:38; Admin Dose 1 EA; Start 12/10/18 at 02:00 Insulin Glargine (Lantus) 13 units DAILY@2000 SC Last administered on 12/10/18 20:41; Admin Dose 13 UNITS; Start 12/09/18 at 20:00 Insulin Aspart (Novolog Insulin Pen) 4 unit WITH MEALS SC Last administered on 12/11/18 12:14; Admin Dose 4 UNIT; Start 12/10/18 at 08:00 Insulin Aspart (Novolog Insulin Pen) NOVOLOG *MILD* ALGORITHM WITH MEALS BEDTIME SC Last administered on 12/10/18 17:38; Admin Dose 1 UNIT; Start at 21:00 Ondansetron HCl (Zofran Inj) 4 mg Q6H PRN IV NAUSEA/VOMITING Last administered on 12/09/18at 23:00; Admin Dose 4 MG; Start 12/09/18 at 18:30 Acetaminophen (Tylenol Tab) 650 mg Q6H PRN PO .PAIN 1-3 OR TEMP Last administered on 12/09/18at 22:14; Admin Dose 650 MG; Start 12/09/18 at 18:30 Docusate Sodium (Colace) 100 mg Q12H PRN PO .CONSTIPATION; Start 12/09/18 at 18:30 Bisacodyl (Dulcolax) 5 mg DAILY PRN PO .CONSTIPATION; Start 12/09/18 at 18:30 Famotidine (Pepcid) 20 mg DAILY PO Last administered on 12/11/18at 08:53; Admin Dose 20 MG; Start 12/09/18 at 21:00 Heparin Sodium (Porcine) (Heparin (5000 Units/1ml)) 5,000 unit Q12 SC ; Start 12/09/18 at 21:00 Sodium Chloride 1,000 ml @ 75 mls/hr [id number] IV Last administered on 12/11/18at 09:57; Admin Dose 75 MLS/HR; Start 12/09/18 at 18:30 Miscellaneous Information 1 ea NOTE XX ; Start 12/09/18 at 18:30 Glucose (Glutose) 15 gm Q15M PRN PO DECREASED GLUCOSE; Start 12/09/18 at 18:30 Glucose (Glutose) 22.5 gm Q15M PRN PO DECREASED GLUCOSE; Start 12/09/18 at 18:30 Dextrose (D50w Syringe) 25 ml Q15M PRN IV DECREASED GLUCOSE; Start 12/09/18 at 18:30 Dextrose (D50w Syringe) 50 ml Q15M PRN IV DECREASED GLUCOSE; Start 12/09/18 at 18:30 Glucagon (Glucagen) 1 mg Q15M PRN IM DECREASED GLUCOSE; Start 12/09/18 at 18:30 Glucose (Glutose) 15 gm Q15M PRN BUCCAL DECREASED GLUCOSE; Start 12/09/18 at 18:30 Hydralazine HCl (Apresoline) 20 mg Q4 PRN IV SBP > 160 Last administered on 12/09/18at 21:32; Admin Dose 20 MG; Start 12/09/18 at 21:00 Clonidine (Catapres) 0.1 mg Q6H PRN PO SBP> 160 Last administered on 12/09/18 22:14; Admin Dose 0.1 MG; Start 12/09/18 at 21:00 Amlodipine Besylate (Norvasc) 10 mg DAILY PO Last administered on 12/11/18 08:5 1; Admin Dose 10 MG; Start 12/09/18 at 21:00 Zolpidem Tartrate (Ambien) 5 mg HS PRN PO INSOMNIA; Start 12/09/18 at 23:30 Piperacillin Sod/ Tazobactam Sod 50 ml @ 100 mls/hr Q8 IVPB Last administered on 12/11/18 05:12; Admin Dose 100 MLS/HR; Start 12/10/18 at 14:00 Acetaminophen/ Hydrocodone Bitart ([place] (10/325)) 1 tab Q6H PRN PO MODERATE PAIN LEVEL 4-6 Last administered on 12/11/18 08:52; Admin Dose 1 TAB; Start 12/10/18 at 19:00 Clonidine (Catapres) 0.1 mg BID PO Last administered on 12/11/18 11:04; Admin Dose 0.1 MG; Start 12/10/18 at 21:00 Hydralazine HCl (Apresoline) 25 mg Q8 PO Last administered on 12/11/18 05:12; Admin Dose 25 MG; Start 12/10/18 at 22:00 Tamsulosin HCl (Flomax) 0.4 mg HS PO Last administered on 12/10/18 20:34; Admin Dose 0.4 MG; Start 12/10/18 at 21:00 Morphine Sulfate (morphine) 2 mg Q4H PRN IV .SEVERE PAIN 7-10; Start 12/11/18 at 11:22 ABDELRAHMAN KNOTT Dec 11, 2018 12:40
--- NOTE | 2018-12-11 13:37 | CONS ---
Assessment/Plan Assessment/Plan Problems: (1) Type 2 diabetes mellitus with diabetic peripheral angiopathy with gangrene Status: Chronic Comment: Good glycemic control w/ BG lower fasting and pre-lunch, higher pre- dinner and at hs. Decrease lantus to 10 units but add NPH 4 units in am w/ prednisone. Cont. Novolog 4 units qac. Hopefully this provides better glucose stability throughout the day. Reeval tomorrow. 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 Qualified Codes: E11.52 - Type 2 diabetes mellitus with diabetic peripheral angiopathy with gangrene; Z79.4 - custodial (current) use of insulin Consultation Date/Type/Reason Admit Date/Time Dec 09, 2018 at 14:30 Initial Consult Date 12/10/18 Type of Consult Endocrinology Reason for Consultation T2DM management Requesting Provider: HARVINDER BLOOD MD Date/Time of Note DATE: 12/11/18 TIME: 13:35 24 HR Interval Summary Constitutional: no complaints, improved Detailed Summary Respiratory: no complaints Cardiovascular: no complaints Gastrointestinal: no complaints Genitourinary: no complaints Musculoskeletal: no complaints Neurologic: no complaints Exam/Review of Systems Exam Vitals VS - Last 72 Hours, by Label Date Temp Pulse Resp B/P (MAP) Pulse Ox O2 O2 Flow FiO2 Time Delivery Rate 12/11/18 87 12:01 12/11/18 98.2 97 18 161/81 99 11:13 (107) 12/11/18 66 08:20 12/11/18 98.0 65 19 119/68 98 07:45 (85) 12/11/18 97.7 61 19 117/72 99 04:03 (87) 12/11/18 64 04:00 12/11/18 60 00:00 12/10/18 98.1 71 22 160/91 100 23:27 (114) 12/10/18 Nasal 2.0 23:11 Cannula 12/10/18 75 20:11 12/10/18 98.7 73 21 159/84 99 20:00 (109) 12/10/18 73 16:13 12/10/18 98.2 73 19 162/77 99 Room Air 15:19 (105) 12/10/18 72 12:15 12/10/18 98.3 70 18 146/78 96 Room Air 11:30 (100) 12/10/18 Nasal 2.0 08:20 Cannula 12/10/18 69 08:16 12/10/18 97.4 80 18 211/98 99 07:20 (135) 12/10/18 98.2 60 18 120/75 98 Nasal 2.0 04:27 (90) Cannula 12/10/18 71 04:00 12/10/18 99.2 79 18 132/68 99 Nasal 2.0 00:30 (89) Cannula 12/10/18 80 00:00 12/09/18 92 170/90 22:38 (116) 12/09/18 91 198/93 22:15 (128) 12/09/18 Nasal 2.0 20:00 Cannula 12/09/18 71 20:00 12/09/18 99.0 77 18 210/101 95 Room Air 19:55 (137) 12/09/18 71 18:47 12/09/18 148/56 17:05 (86) 12/09/18 97.9 64 20 202/101 100 17:00 (134) 12/09/18 98.0 60 20 172/92 96 Room Air 16:32 (118) 12/09/18 98.1 67 16 137/85 100 13:46 (102) Vital Signs Date Temp Pulse Resp B/P (MAP) Pulse Ox O2 O2 Flow FiO2 Time Delivery Rate 12/11/18 87 12:01 12/11/18 98.2 18 161/81 99 11:13 (107) 12/10/18 Nasal 2.0 23:11 Cannula Intake and Output 12/10/18 12/10/18 12/11/18 1515:00 23:00 07:00 IntakeIntake Total 680 ml 250 ml OutputOutput Total 300 ml 300 ml BalanceBalance -300 ml 680 ml -50 ml Constitutional: alert, oriented, frail Psych: no complaints, nl mood/affect Respiratory: clear to auscultation, normal air movement Cardiovascular: regular rate and rhythm; No edema, No murmurs/extra sounds, No rub Gastrointestinal: soft, nl liver, spleen, non-tender, bowel sounds; No mass, No rebound or guarding Musculoskeletal: No nl extremities to inspection (distal finger amps, R distal 3rd finger w/ blue discoloration) Extremities: No cyanosis, No clubbing, No edema 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: 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 MAKER II-XII intact, nl mental status, nl speech, nl strength Additional Comments Bedside Glucose - 72 Hours Test 12/09/18 15:45 12/09/18 17:18 12/09/18 20:21 12/10/18 07:05 Bedside 531 393 89 77 Glucose mg/dL (70-220) mg/dL (70-220) mg/dL (70-220) mg/dL (70-220) *H H Test 12/10/18 08:17 12/10/18 12:01 12/10/18 17:29 12/10/18 20:33 Bedside 95 81 162 172 Glucose mg/dL (70-220) mg/dL (70-220) mg/dL (70-220) mg/dL (70-220) Test 12/11/18 00:32 12/11/18 01:01 12/11/18 08:44 12/11/18 09:11 Bedside 59 106 69 113 Glucose mg/dL (70-220) mg/dL (70-220) mg/dL (70-220) mg/dL (70-220) L L Test 12/11/18 11:28 12/11/18 12:10 Bedside 69 127 Glucose mg/dL (70-220) mg/dL (70-220) L Results Result Diagram: 12/10/18 0526 12/11/18 1016 Results 24hrs Laboratory Tests Test 12/10/18 17:29 12/10/18 20:33 12/11/18 00:19 12/11/18 00:32 Bedside Glucose 162 172 59 L Creatine Kinase 26 Creatine Kinase Index 2.9 Creatinine Kinase MB 0.76 (Mass) Troponin I 0.086 Test 12/11/18 01:01 12/11/18 05:22 12/11/18 08:44 12/11/18 09:11 Bedside Glucose 106 69 L 113 Creatine Kinase 26 Creatine Kinase Index 3.6 Creatinine Kinase MB 0.94 (Mass) Troponin I 0.080 Test 12/11/18 10:16 12/11/18 11:28 12/11/18 12:10 12/11/18 12:17 Sodium Level 138 Potassium Level 4.8 Chloride Level 116 H Carbon Dioxide Level 18 L Anion Gap 4 L Blood Urea Nitrogen 36 H Creatinine 3.19 H Est Glomerular Filtrat 20 L Rate mL/min Glucose Level 61 L Calcium Level 9.1 Bedside Glucose 69 L 127 Creatine Kinase 28 Creatine Kinase Index 3.7 Creatinine Kinase MB 1.04 (Mass) Troponin I 0.051 Medications Medication Current Medications Mycophenolate Sodium (Myfortic) 540 mg Q12 PO Last administered on 12/11/18 08:52; Admin Dose 540 MG; Start 12/09/18 at 21:00 Prednisone (Prednisone) 5 mg DAILY PO Last administered on 12/11/18 08:53; Admin Dose 5 MG; Start 12/10/18 at 09:00 Tacrolimus (Prograf) 2 mg QHS PO Last administered on 12/10/18 20:34; Admin Dose 2 MG; Start 12/09/18 at 21:00 Tacrolimus (Prograf) 3 mg QAM PO Last administered on 12/11/18 08:52; Admin Dose 3 MG; Start 12/10/18 at 09:00 Diagnostic Test (Pha) (Accu-Chek) 1 ea 02 XX Last administered on 12/11/18 00:38; Admin Dose 1 EA; Start 12/10/18 at 02:00 Insulin Aspart (Novolog Insulin Pen) 4 unit WITH MEALS SC Last administered on 12/11/18 12:14; Admin Dose 4 UNIT; Start 12/10/18 at 08:00 Insulin Aspart (Novolog Insulin Pen) NOVOLOG *MILD* ALGORITHM WITH MEALS BEDTIME SC Last administered on 12/10/18 17:38; Admin Dose 1 UNIT; Start 12/09/18 at 21:00 Ondansetron HCl (Zofran Inj) 4 mg Q6H PRN IV NAUSEA/VOMITING Last administered on 12/09/18 23:00; Admin Dose 4 MG; Start 12/09/18 at 18:30 Acetaminophen (Tylenol Tab) 650 mg Q6H PRN PO .PAIN 1-3 OR TEMP Last administered on 12/09/18 22:14; Admin Dose 650 MG; Start 12/09/18 at 18:30 Docusate Sodium (Colace) 100 mg Q12H PRN PO .CONSTIPATION; Start 12/09/18 at 18:30 Bisacodyl (Dulcolax) 5 mg DAILY PRN PO .CONSTIPATION; Start 12/09/18 at 18:30 Famotidine (Pepcid) 20 mg DAILY PO Last administered on 12/11/18 08:53; Admin Dose 20 MG; Start 12/09/18 at 21:00 Heparin Sodium (Porcine) (Heparin (5000 Units/1ml)) 5,000 unit Q12 SC ; Start 12/09/18 at 21:00 Sodium Chloride 1,000 ml @ 75 mls/hr [id number] IV Last administered on 12/11/18at 09:57; Admin Dose 75 MLS/HR; Start 12/09/18 at 18:30 Miscellaneous Information 1 ea NOTE XX ; Start 12/09/18 at 18:30 Glucose (Glutose) 15 gm Q15M PRN PO DECREASED GLUCOSE; Start 12/09/18 at 18:30 Glucose (Glutose) 22.5 gm Q15M PRN PO DECREASED GLUCOSE; Start 12/09/18 at 18:30 Dextrose (D50w Syringe) 25 ml Q15M PRN IV DECREASED GLUCOSE; Start 12/09/18 at 18:30 Dextrose (D50w Syringe) 50 ml Q15M PRN IV DECREASED GLUCOSE; Start 12/09/18 at 18:30 Glucagon (Glucagen) 1 mg Q15M PRN IM DECREASED GLUCOSE; Start 12/09/18 at 18:30 Glucose (Glutose) 15 gm Q15M PRN BUCCAL DECREASED GLUCOSE; Start 12/09/18 at 18:30 Hydralazine HCl (Apresoline) 20 mg Q4 PRN IV SBP > 160 Last administered on 12/09/18at 21:32; Admin Dose 20 MG; Start 12/09/18 at 21:00 Clonidine (Catapres) 0.1 mg Q6H PRN PO SBP> 160 Last administered on 12/09/18at 22:14; Admin Dose 0.1 MG; Start 12/09/18 at 21:00 Amlodipine Besylate (Norvasc) 10 mg DAILY PO Last administered on 12/11/18 08:51; Admin Dose 10 MG; Start 12/09/18 at 21:00 Zolpidem Tartrate (Ambien) 5 mg HS PRN PO INSOMNIA; Start 12/09/18 at 23:30 Piperacillin Sod/ Tazobactam Sod 50 ml @ 100 mls/hr Q8 IVPB Last administered on 12/11/18at 05:12; Admin Dose 100 MLS/HR; Start 12/10/18 at 14:00 Acetaminophen/ Hydrocodone Bitart ([place] (10)) 1 tab Q6H PRN PO MODERATE PAIN LEVEL 4-6 Last administered on 12/11/18at 08:52; Admin Dose 1 TAB; Start 12/10/18 at 19:00 Clonidine (Catapres) 0.1 mg BID PO Last administered on 12/11/18at 11:04; Admin Dose 0.1 MG; Start 12/10/18 at 21:00 Hydralazine HCl (Apresoline) 25 mg Q8 PO Last administered on 12/11/18at 05:12; Admin Dose 25 MG; Start 12/10/18 at 22:00 Tamsulosin HCl (Flomax) 0.4 mg HS PO Last administered on 12/10/18at 20:34; Admin Dose 0.4 MG; Start 12/10/18 at 21:00 Morphine Sulfate (morphine) 2 mg Q4H PRN IV .SEVERE PAIN 7-10; Start 12/11/18 at 11:22 Insulin Glargine (Lantus) 10 units DAILY@2000 SC ; Start 12/11/18 at 20:00 Insulin Human NPH (Humulin N) 4 unit DAILY@0900 SC ; Start 12/12/18 at 09:00 SYLVESTER CAGLE MD Dec 11, 2018 13:37
[2018-12-11] MEDS ORDERED: VANCOMYCIN 750 MG (PMX) 250 ML IVPB SCH (15:00)
--- NOTE | 2018-12-11 15:03 | CONS ---
Assessment/Plan Assessment/Plan Hospital Course (Demo Recall) - progressive swelling of distal aspect of right ring finger with x-ray showing further of erosion and lucency involving the distal aspect of the distal phalanx of the right ring finger suspicious for osteomyelitis with improved but slight associated soft tissue swelling - h/o OM of R 4th digit: swelling with new erosive changes and osteopenia of the underlying R 4th distal phalanx, suggestive of osteomyelitis; wound culture grew Serratia on 03/18/18 and Serratia + CoNS (likely colonizer) on 04/04/18 ; Pt declined amputation. ESR 39 on 03/18/2018. S/p Levaquin x 6 weeks - bacteremia d/t S. aureus 12/09/2018 - S. aureus and GNR in urine cx 12/09/2018 - h/o mild subtle increased activity within the upper aspect of LUE, nonspecific, on WBC tagged scan on 04/05/2018 - h/o OM of R 3rd fingertip (XR showed periosteal reaction at the tip of R 3rd distal phalanx, suspicious for OM, MRI showed cellulitis of distal R 4th phalanx, without OM) and L 2nd fingertip (XR showed cortical irregularity at the tuft of L 2nd distal phalanx with overlying soft tissue defect, suggesting early OM, MRI showed OM at L 2nd distal phalanx with, cellulitis about L 2nd distal phalanx without drainable fluid collection.) - h/o OM of R 2nd finger s/p amputation at proximal phalanx neck, and h/o OM of L 3rd finger s/p amputation at middle and distal phalanges - DM - Hgb A1c 10.5% - h/o Juan's esophagus and gastritis s/p EGD on 08/12/2017. No H. pylori on Bx - h/o ESRD, was on HD - s/p renal transplant in 2009 (on tacrolimus, mycophenolate and prednisone), chronic renal insufficiency at baseline - BLE atherosclerosis - Seen by Vascular Surgery during last admit - onychomycosis, tinea pedis - Seen by Contact Manager during last admit - rheumatoid arthritis - chronic HCV infection - HTN - dyslipidemia - h/o polysubstance and IV drug use. - anemia of chronic disease with h/o pernicious anemia - h/o hyperparathyroidism - thrombosed graft of LUE Recommendations: - Hold off vancomycin - Continue Zosyn for now - F/u final blood and urine cx - Ordered repeat blood cx in AM - Consider vasc surgery eval - Consider MRI - ESR serially Management d/w patient, RN Yvette, and Dr. Olmstead Consultation Date/Type/Reason Admit Date/Time Dec 09, 2018 at 14:30 Initial Consult Date 12/10/18 Requesting Provider: HARVINDER BLOOD MD Date/Time of Note DATE: 12/11/18 TIME: 15:01 24 HR Interval Summary Free Text/Dictation Denies pain, SOB, n/v/d, dysuria. Blood cx growing S. aureus and urine cx growing S. aureus and GNR. Exam/Review of Systems Exam Vitals Vital Signs Date Temp Pulse Resp B/P (MAP) Pulse Ox O2 O2 Flow FiO2 Time Delivery Rate 12/11/18 87 12:01 12/11/18 98.2 18 161/81 99 11:13 (107) 12/10/18 Nasal 2.0 23:11 Cannula Intake and Output 12/10/18 12/10/18 12/11/18 1515:00 23:00 07:00 IntakeIntake Total 680 ml 250 ml OutputOutput Total 300 ml 300 ml BalanceBalance -300 ml 680 ml -50 ml Constitutional: alert, oriented, well developed, frail, other (thin, cachectic) Psych: no complaints, nl mood/affect Head: normocephalic, atraumatic ENMT: nl external ears & nose, nl nasal mucosa & septum Neck: supple Respiratory: clear to auscultation, normal air movement Cardiovascular: regular rate and rhythm, nl pulses; No edema Gastrointestinal: soft, non-tender Musculoskeletal: other (LUE AVF graft with no TTP, no bruit, no thrill) Extremities: normal pulses, other (partial amputation of R 2nd and 3rd fingers and L 2nd and 3rd fingers; Blue discoloration of R middle finger distally; R 3rd and 4th fingers are swollen); No edema 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: nl mental status, nl speech, nl strength Skin: nl turgor Results Result Diagram: 12/10/18 0526 12/11/18 1016 Results 24hrs Laboratory Tests Test 12/10/18 17:29 12/10/18 20:33 12/11/18 00:19 12/11/18 00:32 Bedside Glucose 162 172 59 L Creatine Kinase 26 Creatine Kinase Index 2.9 Creatinine Kinase MB 0.76 (Mass) Troponin I 0.086 Test 12/11/18 01:01 12/11/18 05:22 12/11/18 08:44 12/11/18 09:11 Bedside Glucose 106 69 L 113 Creatine Kinase 26 Creatine Kinase Index 3.6 Creatinine Kinase MB 0.94 (Mass) Troponin I 0.080 Test 12/11/18 10:16 12/11/18 11:28 12/11/18 12:10 12/11/18 12:17 Sodium Level 138 Potassium Level 4.8 Chloride Level 116 H Carbon Dioxide Level 18 L Anion Gap 4 L Blood Urea Nitrogen 36 H Creatinine 3.19 H Est Glomerular Filtrat 20 L Rate mL/min Glucose Level 61 L Calcium Level 9.1 Bedside Glucose 69 L 127 Creatine Kinase 28 Creatine Kinase Index 3.7 Creatinine Kinase MB 1.04 (Mass) Troponin I 0.051 Imaging Imaging Renal US 12/10/2018: Mild transplant kidney hydronephrosis with pelvic wall thickening. Diffuse bladder wall thickening. Infectious/inflammatory process not excluded. R hand x-ray 12/09/2018: 1. There is been further of erosion and lucency involving the distal aspect of the distal phalanx of the right ring finger suspicious for osteomyelitis with improved but slight associated soft tissue swelling. 2. Although there is increased soft tissue swelling involving the soft tissues of the right middle finger the osseous elements appear unchanged with slight sclerosis in shortening of the tuft at the distal phalanx but with no acute osseous destruction identified. 3. There is again previous amputation at the distal aspect of the proximal phalanx of the right index finger. 4. Well-marginated lucencies are again seen in the waist of the right carpal navicular and within the proximal lateral capitate suspicious for cysts. 5. Extensive vascular calcification is again evident. Medications Medication Current Medications Mycophenolate Sodium (Myfortic) 540 mg Q12 PO Last administered on 12/11/18at 08:52; Admin Dose 540 MG; Start 12/09/18 at 21:00 Prednisone (Prednisone) 5 mg DAILY PO Last administered on 12/11/18at 08:53; Admin Dose 5 MG; Start 12/10/18 at 09:00 Tacrolimus (Prograf) 2 mg QHS PO Last administered on 12/10/18at 20:34; Admin Dose 2 MG; Start 12/09/18 at 21:00 Tacrolimus (Prograf) 3 mg QAM PO Last administered on 12/11/18 08:52; Admin Dose 3 MG; Start 12/10/18 at 09:00 Diagnostic Test (Pha) (Accu-Chek) 1 ea 02 XX Last administered on 12/11/18 00:38; Admin Dose 1 EA; Start 12/10/18 at 02:00 Insulin Aspart (Novolog Insulin Pen) 4 unit WITH MEALS SC Last administered on 12/11/18 12:14; Admin Dose 4 UNIT; Start 12/10/18 at 08:00 Insulin Aspart (Novolog Insulin Pen) NOVOLOG *MILD* ALGORITHM WITH MEALS BEDTIME SC Last administered on 12/10/18 17:38; Admin Dose 1 UNIT; Start 12/09/18 at 21:00 Ondansetron HCl (Zofran Inj) 4 mg Q6H PRN IV NAUSEA/VOMITING Last administered on 12/09/18 23:00; Admin Dose 4 MG; Start 12/09/18 at 18:30 Acetaminophen (Tylenol Tab) 650 mg Q6H PRN PO .PAIN 1-3 OR TEMP Last administered on 12/09/18 22:14; Admin Dose 650 MG; Start 12/09/18 at 18:30 Docusate Sodium (Colace) 100 mg Q12H PRN PO .CONSTIPATION; Start 12/09/18 at 18:30 Bisacodyl (Dulcolax) 5 mg DAILY PRN PO .CONSTIPATION; Start 12/09/18 at 18:30 Famotidine (Pepcid) 20 mg DAILY PO Last administered on 12/11/18 08:53; Admin Dose 20 MG; Start 12/09/18 at 21:00 Heparin Sodium (Porcine) (Heparin (5000 Units/1ml)) 5,000 unit Q12 SC ; Start 12/09/18 at 21:00 Sodium Chloride 1,000 ml @ 75 mls/hr [id number] IV Last administered on 12/11/18 09:57; Admin Dose 75 MLS/HR; Start 12/09/18 at 18:30 Miscellaneous Information 1 ea NOTE XX ; Start 12/09/18 at 18:30 Glucose (Glutose) 15 gm Q15M PRN PO DECREASED GLUCOSE; Start 12/09/18 at 18:30 Glucose (Glutose) 22.5 gm Q15M PRN PO DECREASED GLUCOSE; Start 12/09/18 at 18:30 Dextrose (D50w Syringe) 25 ml Q15M PRN IV DECREASED GLUCOSE; Start 12/09/18 at 18:30 Dextrose (D50w Syringe) 50 ml Q15M PRN IV DECREASED GLUCOSE; Start 12/09/18 at 18:30 Glucagon (Glucagen) 1 mg Q15M PRN IM DECREASED GLUCOSE; Start 12/09/18 at 18:30 Glucose (Glutose) 15 gm Q15M PRN BUCCAL DECREASED GLUCOSE; Start 12/09/18 at 18:30 Hydralazine HCl (Apresoline) 20 mg Q4 PRN IV SBP > 160 Last administered on 12/09/18 21:32; Admin Dose 20 MG; Start 12/09/18 at 21:00 Clonidine (Catapres) 0.1 mg Q6H PRN PO SBP> 160 Last administered on 12/09/18 22:14; Admin Dose 0.1 MG; Start 12/09/18 at 21:00 Amlodipine Besylate (Norvasc) 10 mg DAILY PO Last administered on 12/11/18 08:51; Admin Dose 10 MG; Start 12/09/18 at 21:00 Zolpidem Tartrate (Ambien) 5 mg HS PRN PO INSOMNIA; Start 12/09/18 at 23:30 Piperacillin Sod/ Tazobactam Sod 50 ml @ 100 mls/hr Q8 IVPB Last administered on 12/11/18 14:54; Admin Dose 100 MLS/HR; Start 12/10/18 at 14:00 Acetaminophen/ Hydrocodone Bitart ([place] (10325)) 1 tab Q6H PRN PO MODERATE PAIN LEVEL 4-6 Last administered on 12/11/18 08:52; Admin Dose 1 TAB; Start 12/10/18 at 19:00 Clonidine (Catapres) 0.1 mg BID PO Last administered on 12/11/18 11:04; Admin Dose 0.1 MG; Start 12/10/18 at 21:00 Hydralazine HCl (Apresoline) 25 mg Q8 PO Last administered on 12/11/18 14:55; Admin Dose 25 MG; Start 12/10/18 at 22:00 Tamsulosin HCl (Flomax) 0.4 mg HS PO Last administered on 12/10/18at 20:34; Admin Dose 0.4 MG; Start 12/10/18 at 21:00 Morphine Sulfate (morphine) 2 mg Q4H PRN IV .SEVERE PAIN 7-10; Start 12/11/18 at 11:22 Insulin Glargine (Lantus) 10 units DAILY@2000 SC ; Start 12/11/18 at 20:00 Insulin Human NPH (Humulin N) 4 unit DAILY@0900 SC ; Start 12/12/18 at 09:00 CYNTHIA SHANNON NP Dec 11, 2018 15:03
--- NOTE | 2018-12-11 15:34 | PN ---
Date/Time of Note Date/Time of Note DATE: 12/11/18 TIME: 15:24 Assessment/Plan VTE Prophylaxis [place] [facility] [place] risk: 3 [place] applied [place] [facility] [place] Yes Pharmacological prophylaxis: heparin Lines/Catheters IV [facility]ter Type (from [facility]): Peripheral IV Assessment/Plan Hospital Course Patient remains hemodynamically stable, afebrile, been seen by multiple consultants. Assessment/Plan -Severe sepsis with Staphylococcus bacteremia, continue antibiotics per ID. Dr. Olmstead is following in infection disease consultation. -Right middle finger cellulitis with gangrene. Dr. Castro is asked to see patient in orthopedic surgery consultation. -Hyperkalemia -Renal failure, patient baseline creatinine is 1.5. Continue IV fluids. Dr. Meyres is following in nephrology consultation. -Status post kidney transplant in 2009. -Poorly controlled diabetes mellitus type 2, hemoglobin A1c is 10.5. Continue Lantus and NovoLog. Dr. Almonte is following in endocrinology consultation. -Hypertension. -History of right fourth finger gangrene -History of Juan's esophagus and severe gastritis. -Chronic HCV infection -Rheumatoid arthritis -History of polysubstance and IV drug use -Poor medical compliance with his diabetic regimen Further recommendations based on clinical course. Plan of care discussed with Dr. Maier. Result Diagram: 12/10/18 0526 12/11/18 1016 Results 24hrs Laboratory Tests Test 12/10/18 17:29 12/10/18 20:33 12/11/18 00:19 12/11/18 00:32 Bedside Glucose 162 172 59 L Creatine Kinase 26 Creatine Kinase Index 2.9 Creatinine Kinase MB 0.76 (Mass) Troponin I 0.086 Test 12/11/18 01:01 12/11/18 05:22 12/11/18 08:44 12/11/18 09:11 Bedside Glucose 106 69 L 113 Creatine Kinase 26 Creatine Kinase Index 3.6 Creatinine Kinase MB 0.94 (Mass) Troponin I 0.080 Test 12/11/18 10:16 12/11/18 11:28 12/11/18 12:10 12/11/18 12:17 Sodium Level 138 Potassium Level 4.8 Chloride Level 116 H Carbon Dioxide Level 18 L Anion Gap 4 L Blood Urea Nitrogen 36 H Creatinine 3.19 H Est Glomerular Filtrat 20 L Rate mL/min Glucose Level 61 L Calcium Level 9.1 Bedside Glucose 69 L 127 Creatine Kinase 28 Creatine Kinase Index 3.7 Creatinine Kinase MB 1.04 (Mass) Troponin I 0.051 Exam/Review of Systems Exam Vitals Vital Signs Date Temp Pulse Resp B/P (MAP) Pulse Ox O2 O2 Flow FiO2 Time Delivery Rate 12/11/18 87 12:01 12/11/18 98.2 18 161/81 99 11:13 (107) 12/10/18 Nasal 2.0 23:11 Cannula Intake and Output 12/10/18 12/10/18 12/11/18 1515:00 23:00 07:00 IntakeIntake Total 680 ml 250 ml OutputOutput Total 300 ml 300 ml BalanceBalance -300 ml 680 ml -50 ml Exam Constitutional: alert, oriented Respiratory: clear to auscultation Cardiovascular: nl pulses Gastrointestinal: soft, non-tender Musculoskeletal: nl extremities to inspection Extremities: normal pulses, other (Right middle finger tip necrosis) 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: nl mental status Skin: nl turgor Results Results 24hrs Laboratory Tests Test 12/10/18 17:29 12/10/18 20:33 12/11/18 00:19 12/11/18 00:32 Bedside Glucose 162 172 59 L Creatine Kinase 26 Creatine Kinase Index 2.9 Creatinine Kinase MB 0.76 (Mass) Troponin I 0.086 Test 12/11/18 01:01 12/11/18 05:22 12/11/18 08:44 12/11/18 09:11 Bedside Glucose 106 69 L 113 Creatine Kinase 26 Creatine Kinase Index 3.6 Creatinine Kinase MB 0.94 (Mass) Troponin I 0.080 Test 12/11/18 10:16 12/11/18 11:28 12/11/18 12:10 12/11/18 12:17 Sodium Level 138 Potassium Level 4.8 Chloride Level 116 H Carbon Dioxide Level 18 L Anion Gap 4 L Blood Urea Nitrogen 36 H Creatinine 3.19 H Est Glomerular Filtrat 20 L Rate mL/min Glucose Level 61 L Calcium Level 9.1 Bedside Glucose 69 L 127 Creatine Kinase 28 Creatine Kinase Index 3.7 Creatinine Kinase MB 1.04 (Mass) Troponin I 0.051 Medications Medication Current Medications Mycophenolate Sodium (Myfortic) 540 mg Q12 PO Last administered on 12/11/18at 08:52; Admin Dose 540 MG; Start 12/09/18 at 21:00 Prednisone (Prednisone) 5 mg DAILY PO Last administered on 12/11/18 08:53; Admin Dose 5 MG; Start 12/10/18 at 09:00 Tacrolimus (Prograf) 2 mg QHS PO Last administered on 12/10/18 20:34; Admin Dose 2 MG; Start 12/09/18 at 21:00 Tacrolimus (Prograf) 3 mg QAM PO Last administered on 12/11/18 08:52; Admin Dose 3 MG; Start 12/10/18 at 09:00 Diagnostic Test (Pha) (Accu-Chek) 1 ea 02 XX Last administered on 12/11/18 00:38; Admin Dose 1 EA; Start 12/10/18 at 02:00 Insulin Aspart (Novolog Insulin Pen) 4 unit WITH MEALS SC Last administered on 12/11/18 12:14; Admin Dose 4 UNIT; Start 12/10/18 at 08:00 Insulin Aspart (Novolog Insulin Pen) NOVOLOG *MILD* ALGORITHM WITH MEALS BEDTIME SC Last administered on 12/10/18 17:38; Admin Dose 1 UNIT; Start 12/09/18 at 21:00 Ondansetron HCl (Zofran Inj) 4 mg Q6H PRN IV NAUSEA/VOMITING Last administered on 12/09/18 23:00; Admin Dose 4 MG; Start 12/09/18 at 18:30 Acetaminophen (Tylenol Tab) 650 mg Q6H PRN PO .PAIN 1-3 OR TEMP Last administered on 12/09/18 22:14; Admin Dose 650 MG; Start 12/09/18 at 18:30 Docusate Sodium (Colace) 100 mg Q12H PRN PO .CONSTIPATION; Start 12/09/18 at 18:30 Bisacodyl (Dulcolax) 5 mg DAILY PRN PO .CONSTIPATION; Start 12/09/18 at 18:30 Famotidine (Pepcid) 20 mg DAILY PO Last administered on 12/11/18 08:53; Admin D ose 20 MG; Start 12/09/18 at 21:00 Heparin Sodium (Porcine) (Heparin (5000 Units/1ml)) 5,000 unit Q12 SC ; Start 12/09/18 at 21:00 Sodium Chloride 1,000 ml @ 75 mls/hr [id number] IV Last administered on 12/11/18 09:57; Admin Dose 75 MLS/HR; Start 12/09/18 at 18:30 Miscellaneous Information 1 ea NOTE XX ; Start 12/09/18 at 18:30 Glucose (Glutose) 15 gm Q15M PRN PO DECREASED GLUCOSE; Start 12/09/18 at 18:30 Glucose (Glutose) 22.5 gm Q15M PRN PO DECREASED GLUCOSE; Start 12/09/18 at 18:30 Dextrose (D50w Syringe) 25 ml Q15M PRN IV DECREASED GLUCOSE; Start 12/09/18 at 18:30 Dextrose (D50w Syringe) 50 ml Q15M PRN IV DECREASED GLUCOSE; Start 12/09/18 at 18:30 Glucagon (Glucagen) 1 mg Q15M PRN IM DECREASED GLUCOSE; Start 12/09/18 at 18:30 Glucose (Glutose) 15 gm Q15M PRN BUCCAL DECREASED GLUCOSE; Start 12/09/18 at 18:30 Hydralazine HCl (Apresoline) 20 mg Q4 PRN IV SBP > 160 Last administered on 12/09/18at 21:32; Admin Dose 20 MG; Start 12/09/18 at 21:00 Clonidine (Catapres) 0.1 mg Q6H PRN PO SBP> 160 Last administered on 12/09/18 22:14; Admin Dose 0.1 MG; Start 12/09/18 at 21:00 Amlodipine Besylate (Norvasc) 10 mg DAILY PO Last administered on 12/11/18 08:51; Admin Dose 10 MG; Start 12/09/18 at 21:00 Zolpidem Tartrate (Ambien) 5 mg HS PRN PO INSOMNIA; Start 12/09/18 at 23:30 Piperacillin Sod/ Tazobactam Sod 50 ml @ 100 mls/hr Q8 IVPB Last administered on 12/11/18 14:54; Admin Dose 100 MLS/HR; Start 12/10/18 at 14:00 Acetaminophen/ Hydrocodone Bitart ([place] (10/325)) 1 tab Q6H PRN PO MODERATE PAIN LEVEL 4-6 Last administered on 12/11/18 08:52; Admin Dose 1 TAB; Start 12/10/18 at 19:00 Clonidine (Catapres) 0.1 mg BID PO Last administered on 12/11/18at 11:04; Admin Dose 0.1 MG; Start 12/10/18 at 21:00 Hydralazine HCl (Apresoline) 25 mg Q8 PO Last administered on 12/11/18at 14:55; Admin Dose 25 MG; Start 12/10/18 at 22:00 Tamsulosin HCl (Flomax) 0.4 mg HS PO Last administered on 12/10/18at 20:34; Admin Dose 0.4 MG; Start 12/10/18 at 21:00 Morphine Sulfate (morphine) 2 mg Q4H PRN IV .SEVERE PAIN 7-10; Start 12/11/18 at 11:22 Insulin Glargine (Lantus) 10 units DAILY@2000 SC ; Start 12/11/18 at 20:00 Insulin Human NPH (Humulin N) 4 unit DAILY@0900 SC ; Start 12/12/18 at 09:00 LETI RODRIGUEZ Dec 11, 2018 15:34
--- NOTE | 2018-12-11 15:53 | NUR ---
Diabetes Education Referral: Thank you for the referral. R: Upon discharge, pt's insurance covers Basaglar and Admelog. HbA1c 10.5%; 52kg; BMI 17; Cr 3.14; Admitting serum glucose 500 mg/dl Pt stated he has had T2DM for about 3 years. Pt stated he used to inject Lantus but his insurance switched him to Basalgar. He stated he tried Basaglar for over 1 month and never saw the effect so he stopped using it about 10 days prior to this admission. Pt stated he tried to get Humalog but neither his PCP or his public speaking coach would prescribe it. Prior to this admission pt was taking Glipizide 5 mg BID and Januvia (unknown dose) BID. With the use of handouts discussed the timing of the insulins, locations of administration, to rotate the administration site, proper storage of the insulin, and to never inject insulin cold. Also discussed with patient how diabetes works in the body, where the glucose comes from, how food breaks down into glucose, and how different insulins (Basaglar and Admelog) work. Reviewed glucose targets (pre and post meal), reviewed the different food groups and when/how to manage glucose by adjusting the carbohydrates and proteins. Pt stated he has a glucometer at home; briefly reviewed the correct finger stick technique. Pt very upset that "no one takes care of me or my DM". Provided resources for future follow up and encouraged pt to find a PCP or living skills advisor to help manage his BG. Pt very fearful of having to go back onto HD. Will continue to follow.
--- NOTE | 2018-12-11 18:19 | RADRPT ---
Echocardiogram Report Patient Name: MELITA GRIFFINPatient ID: [id number] : 1960 (58y 2m)Study Date: 12/11/2018 7:42:09 AM Gender: MAccession #: [id number] Tech: [place] Location: Ref.Physician: ABDELRAHMAN AMEZCUA Height(Cm): BSA: Weight(Kg): Quality: AdequateAccount #: Procedures: Echocardiographic Report: Transthoracic echocardiogram with complete 2D, M-Mode, and doppler examination. Indications: Hypertension. Measurements: 2D/M Mode Doppler Measurement Value Normal Range Measurement Value Normal Range LVIDd 2D 3.8 [ 4.2 - 5.8 ] cm JENNY VTI 1.6 [ 2.0 - 4.0 ] cm2 LVIDs 2D 2.5 [ 2.5 - 4.0 ] cm AV Mean Robert 1.6 [ 70.0 - 90.0 ] cm/sec LVPWd 2D 1.1 [ 0.6 - 1.0 ] cm AV Mean PG 13.0 [ 2.0 - 4.0 ] mmHg IVSd 2D 1.4 [ 0.6 - 1.0 ] cm AV VTI 47.7 cm AoR Diam 2D 2.7 [ 2.6 - 3.4 ] cm LVOT Mean Robert 0.7 [ 60.0 - 80.0 ] cm/sec EDV 2D 60.0 [ 62.0 - 150.0 ] ml LVOT Mean PG 2.0 [ 1.0 - 3.0 ] mmHg ESV 2D 21.7 [ 21.0 - 61.0 ] ml LVOT Peak Robert 1.1 [ 70.0 - 110.0 ] cm/sec EF 2D 63.8 [ 52.0 - 72.0 ] percent LVOT Peak PG 5.0 [ 2.0 - 6.0 ] mmHg LA Dimen 2D 3.6 [ 3.0 - 4.0 ] cm LVOT VTI 25.1 [ 20.0 - 30.0 ] cm LVOT Diam 2.0 [ 2.3 - 2.9 ] cm MV E Peak Robert 0.7 [ 60.0 - 130.0 ] cm/sec MV A Peak Robert 0.4 [ 100.0 - 120.0 ] cm/sec MV E/A 1.8 [ 0.8 - 1.5 ] ratio MV Decel Time 349 [ 104 - 258 ] msec Lat E` Robert 0.1 [ 10.0 - 15.0 ] cm/sec Lateral E/E` 10.3 [ 1.0 - 2.0 ] ratio MV E/A 1.8 [ 0.8 - 1.5 ] ratio TR Peak Robert 2.3 [ 100.0 - 280.0 ] cm/sec TR Peak PG 22.0 mmHg RVSP 25.0 [ 10.0 - 36.0 ] mmHg RA Pressure 3.0 mmHg Findings: Left Ventricle: Normal left ventricular systolic function. Normal left ventricular cavity size. Moderate asymmetric septal hypertrophy. Ejection fraction is visually estimated at 60-65 %. Tissue Doppler/Mitral Doppler indices are within normal limits. Right Ventricle: Normal right ventricular size. Normal right ventricular systolic function. Left Atrium: The left atrium is normal in size. Right Atrium: The right atrium is normal in size. Mitral Valve: Mitral valve leaflets appear mildly thickened. Mild mitral annular calcification. Trace mitral regurgitation. Aortic Valve: Mild to moderate aortic stenosis. Aortic valve Max velocity 2.45 m/sec. Max PG 24.00 mmHg. Mean PG 13.00 mmHg. Aortic valve area 1.65 cm2. Aortic cusps appear moderately calcified. Tricuspid Valve: Normal appearance of the tricuspid valve. Estimated peak PA systolic pressure 25 mmHg. There is trace tricuspid regurgitation. Pulmonic Valve: Normal pulmonic valve appearance. Pericardium: Normal pericardium with no significant pericardial effusion. Aorta: Normal aortic root. IVC: Normal size and normal respiratory collapse consistent with normal right atrial pressure. Conclusions: Normal left ventricular systolic function. Normal left ventricular cavity size. Moderate asymmetric septal hypertrophy. Ejection fraction is visually estimated at 60-65 %. Tissue Doppler/Mitral Doppler indices are within normal limits. Mitral valve leaflets appear mildly thickened. Mild mitral annular calcification. Trace mitral regurgitation. Mild to moderate aortic stenosis. Aortic valve Max velocity 2.45 m/sec. Max PG 24.00 mmHg. Mean PG 13.00 mmHg. Aortic valve area 1.65 cm2. Aortic cusps appear moderately calcified. Normal appearance of the tricuspid valve. Estimated peak PA systolic pressure 25 mmHg. There is trace tricuspid regurgitation. Electronically Signed By: Abdelrahman Amezcua 2018-12-11 18:18:41 PST
--- NOTE | 2018-12-11 19:49 | NUR ---
EOSS: Patient BS went down to 69, couple of times, Dr. Almonte made aware with order. For CM consult for transfer to [facility] re: medical service and renal, liver transplant to follow.Continue IV fluids. All needs attended. Will continue to monitor.
[2018-12-11] MEDS ORDERED: INSULIN GLARGINE [LANTus] (100 UNITS/ML) SYG SC SCH (20:00)
[2018-12-11] MEDS: TAMSULOSIN (SR) 0.4 MG CAP PO SCH (20:58)
--- NOTE | 2018-12-11 21:12 | NUR ---
NURSING NOTE: PT IS REFUSING IV FLUID. PT STATES "I'M TAKING ON TOO MUCH WATER." CALLED DR. KAPLAN TO INFORM . AWARE. NO NEW ORDERS
[2018-12-12] VITALS (10 sets, daily range): BP systolic 105–164; BP diastolic 66–85; PULSE 63–104; RESP 16–20
[2018-12-12] MEDS: SOD CHLORIDE 0.9% 1,000 ML IV SCH ×2 (00:15→20:15)
[2018-12-12] MEDS: ACCU-CHEK XX SCH (02:14)
[2018-12-12] MEDS: PIPER-TAZO 2.25 GM (PMX) 50 ML IVPB SCH ×3 (05:32→23:42)
[2018-12-12] MEDS: HYDROCODONE/APAP (10/325) TAB PO PRN ×4 (05:33→23:43)
--- NOTE | 2018-12-12 07:00 | NUR ---
NURSING NOTE EOSS: ALL PT NEEDS TAKEN CARE OF. DID HOURLY ROUNDING. GAVE PAIN MEDS PRN ORDERED. ENCOURAGED PT TO TURN Q 2HRS. PT TOLERATED WELL. PT REFUSED IV FLUID. DR. KAPLAN MADE AWARE. DID BLADDER SCAN FOR POST VOID RESIDUAL ORDERED. V/S STABLE. ENDORSED TO DAYSHIFT RN
[2018-12-12] MEDS: INSULIN ASPART [NOVOLOG] 3 ML PEN SC SCH ×7 (08:00→21:00)
[2018-12-12] MEDS: HEPARIN 5,000 UNIT/1 ML VIAL SC SCH ×2 (09:00→21:00)
[2018-12-12] MEDS: predniSONE 5 MG TAB PO SCH (09:53)
[2018-12-12] MEDS: AMLODIPINE 10 MG TAB PO SCH (09:54)
[2018-12-12] MEDS: FAMOTIDINE 20 MG TAB PO SCH (09:54)
[2018-12-12] MEDS: TACROLIMUS 1 MG CAP PO SCH ×2 (09:54→21:37)
[2018-12-12] MEDS: NPH, HUMAN INSULIN ISOPHANE 3ML VIAL SC SCH (09:59)
--- NOTE | 2018-12-12 11:08 | PN ---
Date/Time of Note Date/Time of Note DATE: 12/12/18 TIME: 11:07 Assessment/Plan VTE Prophylaxis Risk score (from [facility])>0 risk: 2 SCD applied (from [facility]): Yes Pharmacological prophylaxis: LMWH Lines/Catheters IV Catheter Type (from [facility]): Peripheral IV Assessment/Plan Hospital Course -Severe sepsis with Staphylococcus bacteremia, continue antibiotics per ID. Dr. Olmstead is following in infection disease consultation. -Right middle finger cellulitis with gangrene. Dr. Castro is asked to see patient in orthopedic surgery consultation. -Hyperkalemia -Renal failure, patient baseline creatinine is 1.5. Continue IV fluids. Dr. Meyers is following in nephrology consultation. -Status post kidney transplant in 2009. -Poorly controlled diabetes mellitus type 2, hemoglobin A1c is 10.5. Continue Lantus and NovoLog. Dr. Almonte is following in endocrinology consultation. -Hypertension. -History of right fourth finger gangrene -History of Juan's esophagus and severe gastritis. -Chronic HCV infection -Rheumatoid arthritis -History of polysubstance and IV drug use -Poor medical compliance with his diabetic regimen Result Diagram: 12/12/18 0537 12/12/18 0537 Results 24hrs Laboratory Tests Test 12/11/18 11:28 12/11/18 12:10 12/11/18 12:17 12/11/18 17:37 Bedside Glucose 69 L 127 152 Creatine Kinase 28 Creatine Kinase Index 3.7 Creatinine Kinase MB 1.04 (Mass) Troponin I 0.051 Test 12/11/18 20:46 12/12/18 02:11 12/12/18 05:37 12/12/18 07:49 Bedside Glucose 137 124 108 White Blood Count 5.8 # Red Blood Count 3.04 L Hemoglobin 10.0 L Hematocrit 31.7 L Mean Corpuscular Volume 104.3 H Mean Corpuscular 32.9 Hemoglobin Mean Corpuscular 31.5 L Hemoglobin Concent Red Cell Distribution 13.2 Width Platelet Count 218 Mean Platelet Volume 10.7 H Immature Granulocytes % 0.500 H Neutrophils % 70.5 Lymphocytes % 17.5 Monocytes % 10.7 Eosinophils % 0.5 Basophils % 0.3 Nucleated Red Blood 0.0 Cells % Immature Granulocytes # 0.030 Neutrophils # 4.1 Lymphocytes # 1.0 Monocytes # 0.6 Eosinophils # 0.0 Basophils # 0.0 Nucleated Red Blood 0.0 Cells # Sodium Level 139 Potassium Level 5.2 H Chloride Level 112 H Carbon Dioxide Level 16 L Anion Gap 11 # Blood Urea Nitrogen 40 H Creatinine 3.47 H Est Glomerular Filtrat 18 L Rate mL/min Glucose Level 55 L Calcium Level 9.8 Magnesium Level 2.0 Test 12/12/18 09:51 Bedside Glucose 85 Subjective 24 Hr Interval Summary Free Text/Dictation Patient has no complaints, states that the gangrene is improved Exam/Review of Systems Exam Vitals Vital Signs Date Temp Pulse Resp B/P (MAP) Pulse Ox O2 O2 Flow FiO2 Time Delivery Rate 12/12/18 67 08:01 12/12/18 97.5 20 113/66 100 Nasal 07:20 (82) Cannula 12/11/18 2.0 20:00 Intake and Output 12/11/18 12/11/18 12/12/18 1515:00 23:00 07:00 IntakeIntake Total 1000 ml 2180 ml 500 ml OutputOutput Total 800 ml 350 ml BalanceBalance 1000 ml 1380 ml 150 ml Constitutional: well developed Head: normocephalic, atraumatic Neck: supple Respiratory: diminished breath sounds Cardiovascular: regular rate and rhythm Gastrointestinal: soft, non-tender Extremities: normal pulses Results Results 24hrs Laboratory Tests Test 12/11/18 11:28 12/11/18 12:10 12/11/18 12:17 12/11/18 17:37 Bedside Glucose 69 L 127 152 Creatine Kinase 28 Creatine Kinase Index 3.7 Creatinine Kinase MB 1.04 (Mass) Troponin I 0.051 Test 12/11/18 20:46 12/12/18 02:11 12/12/18 05:37 12/12/18 07:49 Bedside Glucose 137 124 108 White Blood Count 5.8 # Red Blood Count 3.04 L Hemoglobin 10.0 L Hematocrit 31.7 L Mean Corpuscular Volume 104.3 H Mean Corpuscular 32.9 Hemoglobin Mean Corpuscular 31.5 L Hemoglobin Concent Red Cell Distribution 13.2 Width Platelet Count 218 Mean Platelet Volume 10.7 H Immature Granulocytes % 0.500 H Neutrophils % 70.5 Lymphocytes % 17.5 Monocytes % 10.7 Eosinophils % 0.5 Basophils % 0.3 Nucleated Red Blood 0.0 Cells % Immature Granulocytes # 0.030 Neutrophils # 4.1 Lymphocytes # 1.0 Monocytes # 0.6 Eosinophils # 0.0 Basophils # 0.0 Nucleated Red Blood 0.0 Cells # Sodium Level 139 Potassium Level 5.2 H Chloride Level 112 H Carbon Dioxide Level 16 L Anion Gap 11 # Blood Urea Nitrogen 40 H Creatinine 3.47 H Est Glomerular Filtrat 18 L Rate mL/min Glucose Level 55 L Calcium Level 9.8 Magnesium Level 2.0 Test 12/12/18 09:51 Bedside Glucose 85 Medications Medication Current Medications Prednisone (Prednisone) 5 mg DAILY PO Last administered on 12/12/18 09:53; Admin Dose 5 MG; Start 12/10/18 at 09:00 Tacrolimus (Prograf) 2 mg QHS PO Last administered on 12/11/18 20:58; Admin Dose 2 MG; Start 12/09/18 at 21:00 Tacrolimus (Prograf) 3 mg QAM PO Last administered on 12/12/18 09:54; Admin Dose 3 MG; Start 12/10/18 at 09:00 Diagnostic Test (Pha) (Accu-Chek) 1 ea 02 XX Last administered on 12/12/18 02:14; Admin Dose 1 EA; Start 12/10/18 at 02:00 Insulin Aspart (Novolog Insulin Pen) 4 unit WITH MEALS SC Last administered on 12/12/18 08:25; Admin Dose 4 UNIT; Start 12/10/18 at 08:00 Insulin Aspart (Novolog Insulin Pen) NOVOLOG *MILD* ALGORITHM WITH MEALS BEDTIME SC Last administered on 12/11/18 17:50; Admin Dose 1 UNIT; Start 12/09/18 at 21:00 Ondansetron HCl (Zofran Inj) 4 mg Q6H PRN IV NAUSEA/VOMITING Last administered on 12/09/18 23:00; Admin Dose 4 MG; Start 12/09/18 at 18:30 Acetaminophen (Tylenol Tab) 650 mg Q6H PRN PO .PAIN 1-3 OR TEMP Last administered on 12/09/18 22:14; Admin Dose 650 MG; Start 12/09/18 at 18:30 Docusate Sodium (Colace) 100 mg Q12H PRN PO .CONSTIPATION; Start 12/09/18 at 18:30 Bisacodyl (Dulcolax) 5 mg DAILY PRN PO .CONSTIPATION; Start 12/09/18 at 18:30 Famotidine (Pepcid) 20 mg DAILY PO Last administered on 12/12/18 09:54; Admin Dose 20 MG; Start 12/09/18 at 21:00 Heparin Sodium (Porcine) (Heparin (5000 Units/1ml)) 5,000 unit Q12 SC ; Start 12/09/18 at 21:00 Sodium Chloride 1,000 ml @ 50 mls/hr Q20H IV Last administered on 12/11/18at 09:57; Admin Dose 75 MLS/HR; Start 12/09/18 at 18:30 Miscellaneous Information 1 ea NOTE XX ; Start 12/09/18 at 18:30 Glucose (Glutose) 15 gm Q15M PRN PO DECREASED GLUCOSE; Start 12/09/18 at 18:30 Glucose (Glutose) 22.5 gm Q15M PRN PO DECREASED GLUCOSE; Start 12/09/18 at 18:30 Dextrose (D50w Syringe) 25 ml Q15M PRN IV DECREASED GLUCOSE; Start 12/09/18 at 18:30 Dextrose (D50w Syringe) 50 ml Q15M PRN IV DECREASED GLUCOSE; Start 12/09/18 at 18:30 Glucagon (Glucagen) 1 mg Q15M PRN IM DECREASED GLUCOSE; Start 12/09/18 at 18:30 Glucose (Glutose) 15 gm Q15M PRN BUCCAL DECREASED GLUCOSE; Start 12/09/18 at 18: 30 Hydralazine HCl (Apresoline) 20 mg Q4 PRN IV SBP > 160 Last administered on 12/09/18at 21:32; Admin Dose 20 MG; Start 12/09/18 at 21:00 Clonidine (Catapres) 0.1 mg Q6H PRN PO SBP> 160 Last administered on 12/09/18at 22:14; Admin Dose 0.1 MG; Start 12/09/18 at 21:00 Amlodipine Besylate (Norvasc) 10 mg DAILY PO Last administered on 12/12/18 09:54; Admin Dose 10 MG; Start 12/09/18 at 21:00 Zolpidem Tartrate (Ambien) 5 mg HS PRN PO INSOMNIA; Start 12/09/18 at 23:30 Piperacillin Sod/ Tazobactam Sod 50 ml @ 100 mls/hr Q8 IVPB Last administered on 2/9/19at 05:32; Admin Dose 100 MLS/HR; Start 12/10/18 at 14:00 Acetaminophen/ Hydrocodone Bitart ([place] (10/325)) 1 tab Q6H PRN PO MODERATE PAIN LEVEL 4-6 Last administered on 12/12/18 05:33; Admin Dose 1 TAB; Start 12/10/18 at 19:00 Clonidine (Catapres) 0.1 mg BID PO Last administered on 12/12/18 09:54; Admin Dose 0.1 MG; Start 12/10/18 at 21:00 Hydralazine HCl (Apresoline) 25 mg Q8 PO Last administered on 12/12/18 05:32; Admin Dose 25 MG; Start 12/10/18 at 22:00 Tamsulosin HCl (Flomax) 0.4 mg HS PO Last administered on 12/11/18 20:58; Admin Dose 0.4 MG; Start 12/10/18 at 21:00 Morphine Sulfate (morphine) 2 mg Q4H PRN IV .SEVERE PAIN 7-10; Start 12/11/18 at 11:22 Insulin Glargine (Lantus) 10 units DAILY@2000 SC Last administered on 12/11/18 21:04; Admin Dose 10 UNITS; Start 12/11/18 at 20:00 Insulin Human NPH (Humulin N) 4 unit DAILY@0900 SC Last administered on 12/12/18 09:59; Admin Dose 4 UNIT; Start 12/12/18 at 09:00 ROJAS BYRD Dec 12, 2018 11:08
--- NOTE | 2018-12-12 11:34 | CONS ---
Assessment/Plan Assessment/Plan Hospital Course (Demo Recall) IMPRESSION: 1. Hypertension-labile 2. Gangrenous changes of the patient's finger. 3. Renal failure on HD 4. Rheumatoid arthritis. 5. Diabetes mellitus. 6. History of Juan's esophagus. 7. Dyslipidemia. Recc: -Tele -serial ecg's -Continue clonidine and increase hydralazine -Continue Norvasc -Continue immunosuppresives -HD for volume removal Consultation Date/Type/Reason Admit Date/Time Dec 09, 2018 at 14:30 Initial Consult Date 12/10/18 Type of Consult Cardiology Reason for Consultation HTN Requesting Provider: HARVINDER BLOOD MD Date/Time of Note DATE: 12/12/18 TIME: 11:31 Exam/Review of Systems Vital Signs Vitals Vital Signs Date Temp Pulse Resp B/P (MAP) Pulse Ox O2 O2 Flow FiO2 Time Delivery Rate 12/12/18 97.8 68 20 105/68 97 Room Air 11:09 (80) 12/11/18 2.0 20:00 Intake and Output 12/11/18 12/11/18 12/12/18 1515:00 23:00 07:00 IntakeIntake Total 1000 ml 2180 ml 500 ml OutputOutput Total 800 ml 350 ml BalanceBalance 1000 ml 1380 ml 150 ml Exam Exam Review of Systems: CONSTITUTIONAL: No fevers, chills. PULMONARY: No sob CARDIOVASCULAR: No chest pain/palpitations GASTROINTESTINAL: No nausea/vomiting. GENITOURINARY: No hematuria/dysuria. MUSCULOSKELETAL: No myagias/arthalgias. PSYCHIATRIC: The patient denies depression. NEUROLOGIC: No weakness Constitutional: alert Psych: no complaints Head: normocephalic ENMT: mucosa pink and moist Neck: supple, jvd (9 cm water) Respiratory: diminished breath sounds (at bases/B) Cardiovascular: regular rate and rhythm Gastrointestinal: soft, non-tender Musculoskeletal: muscle tone (normal) Extremities: edema (none) 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: other (No focal deficits) Labs Result Diagram: 12/12/18 0537 12/12/18 0537 Results 24hrs Laboratory Tests Test 12/11/18 12:10 12/11/18 12:17 12/11/18 17:37 12/11/18 20:46 Bedside Glucose 127 152 137 Creatine Kinase 28 Creatine Kinase Index 3.7 Creatinine Kinase MB 1.04 (Mass) Troponin I 0.051 Test 12/12/18 02:11 12/12/18 05:37 12/12/18 07:49 12/12/18 09:51 Bedside Glucose 124 108 85 White Blood Count 5.8 # Red Blood Count 3.04 L Hemoglobin 10.0 L Hematocrit 31.7 L Mean Corpuscular Volume 104.3 H Mean Corpuscular 32.9 Hemoglobin Mean Corpuscular 31.5 L Hemoglobin Concent Red Cell Distribution 13.2 Width Platelet Count 218 Mean Platelet Volume 10.7 H Immature Granulocytes % 0.500 H Neutrophils % 70.5 Lymphocytes % 17.5 Monocytes % 10.7 Eosinophils % 0.5 Basophils % 0.3 Nucleated Red Blood 0.0 Cells % Immature Granulocytes # 0.030 Neutrophils # 4.1 Lymphocytes # 1.0 Monocytes # 0.6 Eosinophils # 0.0 Basophils # 0.0 Nucleated Red Blood 0.0 Cells # Sodium Level 139 Potassium Level 5.2 H Chloride Level 112 H Carbon Dioxide Level 16 L Anion Gap 11 # Blood Urea Nitrogen 40 H Creatinine 3.47 H Est Glomerular Filtrat 18 L Rate mL/min Glucose Level 55 L Calcium Level 9.8 Magnesium Level 2.0 Medications Medications Current Medications Prednisone (Prednisone) 5 mg DAILY PO Last administered on 12/12/18 09:53; Admin Dose 5 MG; Start 12/10/18 at 09:00 Tacrolimus (Prograf) 2 mg QHS PO Last administered on 12/11/18 20:58; Admin Dose 2 MG; Start 12/09/18 at 21:00 Tacrolimus (Prograf) 3 mg QAM PO Last administered on 12/12/18 09:54; Admin Dose 3 MG; Start 12/10/18 at 09:00 Diagnostic Test (Pha) (Accu-Chek) 1 ea 02 XX Last administered on 12/12/18 02:14; Admin Dose 1 EA; Start 12/10/18 at 02:00 Insulin Aspart (Novolog Insulin Pen) 4 unit WITH MEALS SC Last administered on 12/12/18 08:25; Admin Dose 4 UNIT; Start 12/10/18 at 08:00 Insulin Aspart (Novolog Insulin Pen) NOVOLOG *MILD* ALGORITHM WITH MEALS BEDTIME SC Last administered on 12/11/18 17:50; Admin Dose 1 UNIT; Start 12/09/18 at 21:00 Ondansetron HCl (Zofran Inj) 4 mg Q6H PRN IV NAUSEA/VOMITING Last administered on 12/09/18at 23:00; Admin Dose 4 MG; Start 12/09/18 at 18:30 Acetaminophen (Tylenol Tab) 650 mg Q6H PRN PO .PAIN 1-3 OR TEMP Last administered on 12/09/18at 22:14; Admin Dose 650 MG; Start 12/09/18 at 18:30 Docusate Sodium (Colace) 100 mg Q12H PRN PO .CONSTIPATION; Start 12/09/18 at 18:30 Bisacodyl (Dulcolax) 5 mg DAILY PRN PO .CONSTIPATION; Start 12/09/18 at 18:30 Famotidine (Pepcid) 20 mg DAILY PO Last administered on 12/12/18at 09:54; Admin Dose 20 MG; Start 12/09/18 at 21:00 Heparin Sodium (Porcine) (Heparin (5000 Units/1ml)) 5,000 unit Q12 SC ; Start 12/09/18 at 21:00 Sodium Chloride 1,000 ml @ 50 mls/hr Q20H IV Last administered on 12/11/18at 09:57; Admin Dose 75 MLS/HR; Start 12/09/18 at 18:30 Miscellaneous Information 1 ea NOTE XX ; Start 12/09/18 at 18:30 Glucose (Glutose) 15 gm Q15M PRN PO DECREASED GLUCOSE; Start 12/09/18 at 18:30 Glucose (Glutose) 22.5 gm Q15M PRN PO DECREASED GLUCOSE; Start 12/09/18 at 18:30 Dextrose (D50w Syringe) 25 ml Q15M PRN IV DECREASED GLUCOSE; Start 12/09/18 at 18:30 Dextrose (D50w Syringe) 50 ml Q15M PRN IV DECREASED GLUCOSE; Start 12/09/18 at 18:30 Glucagon (Glucagen) 1 mg Q15M PRN IM DECREASED GLUCOSE; Start 12/09/18 at 18:30 Glucose (Glutose) 15 gm Q15M PRN BUCCAL DECREASED GLUCOSE; Start 12/09/18 at 18:30 Hydralazine HCl (Apresoline) 20 mg Q4 PRN IV SBP > 160 Last administered on 12/09/18at 21:32; Admin Dose 20 MG; Start 12/09/18 at 21:00 Clonidine (Catapres) 0.1 mg Q6H PRN PO SBP> 160 Last administered on 12/09/18 22:14; Admin Dose 0.1 MG; Start 12/09/18 at 21:00 Amlodipine Besylate (Norvasc) 10 mg DAILY PO Last administered on 12/12/18 09:54; Admin Dose 10 MG; Start 12/09/18 at 21:00 Zolpidem Tartrate (Ambien) 5 mg HS PRN PO INSOMNIA; Start 12/09/18 at 23:30 Piperacillin Sod/ Tazobactam Sod 50 ml @ 100 mls/hr Q8 IVPB Last administered on 12/12/18 05:32; Admin Dose 100 MLS/HR; Start 12/10/18 at 14:00 Acetaminophen/ Hydrocodone Bitart ([place] (10/325)) 1 tab Q6H PRN PO MODERATE PAIN LEVEL 4-6 Last administered on 12/12/18 05:33; Admin Dose 1 TAB; Start 12/10/18 at 19:00 Clonidine (Catapres) 0.1 mg BID PO Last administered on 12/12/18 09:54; Admin Dose 0.1 MG; Start 12/10/18 at 21:00 Hydralazine HCl (Apresoline) 25 mg Q8 PO Last administered on 12/12/18 05:32; Admin Dose 25 MG; Start 12/10/18 at 22:00 Tamsulosin HCl (Flomax) 0.4 mg HS PO Last administered on 12/11/18 20:58; Admin Dose 0.4 MG; Start 12/10/18 at 21:00 Morphine Sulfate (morphine) 2 mg Q4H PRN IV .SEVERE PAIN 7-10; Start 12/11/18 at 11:22 Insulin Glargine (Lantus) 10 units DAILY@2000 SC Last administered on 12/11/18 21:04; Admin Dose 10 UNITS; Start 12/11/18 at 20:00 Insulin Human NPH (Humulin N) 4 unit DAILY@0900 SC Last administered on 12/12/18 09:59; Admin Dose 4 UNIT; Start 12/12/18 at 09:00 ABDELRAHMAN KNOTT Dec 12, 2018 11:34
--- NOTE | 2018-12-12 12:41 | NUR ---
CASE MANAGEMENT NOTE RECEIVED ORDER TO ARRANGE FOR TRANSFER TO [facility], MARGARITO CONTACTED ELIUD AT THE TRANSFER CENTER, PER HER TRANSPLANT WAS DONE AT [facility] AND SHE REQUESTED THAT MD BLOOD CONTACT MD ROBERTS AT [facility] AND HAVE MD CALL THE TRANSFER CENTER TO ACCEPT THE PT, CM FAXED OVER FACESHEET REQUESTED BY YESENIA ALONG WITH CELL PHONE. CM WILL CONTINUE TO FOLLOW UP. CM ALSO S/W TO MD BLOOD AND MADE HER AWARE. PER MD PT WILL NEED TO BE ADMITTED UNDER MEDICAL AND MD ROBERTS WILL FOLLOW ONCE PT IS ADMITTED.CM WILL MAKE [facility] AWARE. CORINA EVERETT RN,[facility] EXT [phone]
--- NOTE | 2018-12-12 12:55 | CONS ---
Assessment/Plan Assessment/Plan Hospital Course (Demo Recall) Type 2 DM -fasting and prelunch hypoglycemia -will decrease lantus to 8 units at bedtime -decrease novolog to 3 units TIDAC -continue NPH 4 units daily, if hypoglycemia persists will consider d iscontinuing -continue mild dose novolog correction with meals and bedtime -check FS AC and hS Consultation Date/Type/Reason Admit Date/Time Dec 09, 2018 at 14:30 Initial Consult Date 12/10/18 Requesting Provider: HARVINDER BLOOD MD Date/Time of Note DATE: 12/12/18 TIME: 12:52 24 HR Interval Summary Free Text/Dictation Patient seen and examined at bedside, no acute events overnight. Hypoglycemia noted today. Exam/Review of Systems Exam Vitals Vital Signs Date Temp Pulse Resp B/P (MAP) Pulse Ox O2 O2 Flow FiO2 Time Delivery Rate 12/12/18 97.8 68 20 105/68 97 Room Air 11:09 (80) 12/11/18 2.0 20:00 Intake and Output 12/11/18 12/11/18 12/12/18 1414:59 22:59 06:59 IntakeIntake Total 1000 ml 2180 ml 500 ml OutputOutput Total 800 ml 350 ml BalanceBalance 1000 ml 1380 ml 150 ml Exam General: Comfortable in appearance, not in acute distress. Skin appropriate for ethnicity Eye: Extraocular movements are intact, Normal conjunctiva. HENT: Normocephalic, atraumatic. Respiratory: Respirations are non-labored, Breath sounds are equal, Symmetrical chest wall expansion. Cardiovascular: S1, S2. No murmur. No LE edema Gastrointestinal: Soft, Non-tender, Non-distended, Normal bowel sounds. Integumentary: Warm to touch. Right third fingertip with gangrene Neurologic: Alert, Oriented. Cognition and Speech: Speech clear and coherent, Functional cognition intact. Psychiatric: Cooperative, Appropriate mood & affect. Results Result Diagram: 12/12/1837 12/12/1837 Results 24hrs Laboratory Tests Test 12/11/18 17:37 12/11/18 20:46 12/12/18 02:11 12/12/18 05:37 Bedside Glucose 152 137 124 White Blood Count 5.8 # Red Blood Count 3.04 L Hemoglobin 10.0 L Hematocrit 31.7 L Mean Corpuscular Volume 104.3 H Mean Corpuscular 32.9 Hemoglobin Mean Corpuscular 31.5 L Hemoglobin Concent Red Cell Distribution 13.2 Width Platelet Count 218 Mean Platelet Volume 10.7 H Immature Granulocytes % 0.500 H Neutrophils % 70.5 Lymphocytes % 17.5 Monocytes % 10.7 Eosinophils % 0.5 Basophils % 0.3 Nucleated Red Blood 0.0 Cells % Immature Granulocytes # 0.030 Neutrophils # 4.1 Lymphocytes # 1.0 Monocytes # 0.6 Eosinophils # 0.0 Basophils # 0.0 Nucleated Red Blood 0.0 Cells # Sodium Level 139 Potassium Level 5.2 H Chloride Level 112 H Carbon Dioxide Level 16 L Anion Gap 11 # Blood Urea Nitrogen 40 H Creatinine 3.47 H Est Glomerular Filtrat 18 L Rate mL/min Glucose Level 55 L Calcium Level 9.8 Magnesium Level 2.0 Test 12/12/18 07:49 12/12/18 09:51 12/12/18 12:30 Bedside Glucose 108 85 66 L Medications Medication Current Medications Prednisone (Prednisone) 5 mg DAILY PO Last administered on 12/12/18 09:53; Admin Dose 5 MG; Start 12/10/18 at 09:00 Tacrolimus (Prograf) 2 mg QHS PO Last administered on 12/11/18 20:58; Admin Dose 2 MG; Start 12/09/18 at 21:00 Tacrolimus (Prograf) 3 mg QAM PO Last administered on 12/12/18 09:54; Admin Dose 3 MG; Start 12/10/18 at 09:00 Diagnostic Test (Pha) (Accu-Chek) 1 ea 02 XX Last administered on 12/12/18 02:14; Admin Dose 1 EA; Start 12/10/18 at 02:00 Insulin Aspart (Novolog Insulin Pen) 4 unit WITH MEALS SC Last administered on 12/12/18 08:25; Admin Dose 4 UNIT; Start 12/10/18 at 08:00 Insulin Aspart (Novolog Insulin Pen) NOVOLOG *MILD* ALGORITHM WITH MEALS BEDTIME SC Last administered on 12/11/18 17:50; Admin Dose 1 UNIT; Start 12/09/18 at 21:00 Ondansetron HCl (Zofran Inj) 4 mg Q6H PRN IV NAUSEA/VOMITING Last administered on 12/09/18 23:00; Admin Dose 4 MG; Start 12/09/18 at 18:30 Acetaminophen (Tylenol Tab) 650 mg Q6H PRN PO .PAIN 1-3 OR TEMP Last administered on 12/09/18at 22:14; Admin Dose 650 MG; Start 12/09/18 at 18:30 Docusate Sodium (Colace) 100 mg Q12H PRN PO .CONSTIPATION; Start 12/09/18 at 18:30 Bisacodyl (Dulcolax) 5 mg DAILY PRN PO .CONSTIPATION; Start 12/09/18 at 18:30 Famotidine (Pepcid) 20 mg DAILY PO Last administered on 12/12/18at 09:54; Admin Dose 20 MG; Start 12/09/18 at 21:00 Heparin Sodium (Porcine) (Heparin (5000 Units/1ml)) 5,000 unit Q12 SC ; Start 12/09/18 at 21:00 Sodium Chloride 1,000 ml @ 50 mls/hr Q20H IV Last administered on 12/11/18at 09:57; Admin Dose 75 MLS/HR; Start 12/09/18 at 18:30 Miscellaneous Information 1 ea NOTE XX ; Start 12/09/18 at 18:30 Glucose (Glutose) 15 gm Q15M PRN PO DECREASED GLUCOSE; Start 12/09/18 at 18:30 Glucose (Glutose) 22.5 gm Q15M PRN PO DECREASED GLUCOSE; Start 12/09/18 at 18:30 Dextrose (D50w Syringe) 25 ml Q15M PRN IV DECREASED GLUCOSE; Start 12/09/18 at 18:30 Dextrose (D50w Syringe) 50 ml Q15M PRN IV DECREASED GLUCOSE; Start 12/09/18 at 18:30 Glucagon (Glucagen) 1 mg Q15M PRN IM DECREASED GLUCOSE; Start 12/09/18 at 18:30 Glucose (Glutose) 15 gm Q15M PRN BUCCAL DECREASED GLUCOSE; Start 12/09/18 at 18:30 Hydralazine HCl (Apresoline) 20 mg Q4 PRN IV SBP > 160 Last administered on 12/09/18at 21:32; Admin Dose 20 MG; Start 12/09/18 at 21:00 Clonidine (Catapres) 0.1 mg Q6H PRN PO SBP> 160 Last administered on 12/09/18at 22:14; Admin Dose 0.1 MG; Start 12/09/18 at 21:00 Amlodipine Besylate (Norvasc) 10 mg DAILY PO Last administered on 12/12/18 09:54; Admin Dose 10 MG; Start 12/09/18 at 21:00 Zolpidem Tartrate (Ambien) 5 mg HS PRN PO INSOMNIA; Start 12/09/18 at 23:30 Piperacillin Sod/ Tazobactam Sod 50 ml @ 100 mls/hr Q8 IVPB Last administered on 12/12/18 05:32; Admin Dose 100 MLS/HR; Start 12/10/18 at 14:00 Acetaminophen/ Hydrocodone Bitart ([place] ()) 1 tab Q6H PRN PO MODERATE PAIN LEVEL 4-6 Last administered on 12/12/18 11:41; Admin Dose 1 TAB; Start 12/10/18 at 19:00 Clonidine (Catapres) 0.1 mg BID PO Last administered on 12/12/18 09:54; Admin Dose 0.1 MG; Start 12/10/18 at 21:00 Hydralazine HCl (Apresoline) 25 mg Q8 PO Last administered on 12/12/18 05:32; Admin Dose 25 MG; Start 12/10/18 at 22:00 Tamsulosin HCl (Flomax) 0.4 mg HS PO Last administered on 12/11/18 20:58; Admin Dose 0.4 MG; Start 12/10/18 at 21:00 Morphine Sulfate (morphine) 2 mg Q4H PRN IV .SEVERE PAIN 7-10; Start 12/11/18 at 11:22 Insulin Glargine (Lantus) 10 units DAILY@2000 SC Last administered on 12/11/18 21:04; Admin Dose 10 UNITS; Start 12/11/18 at 20:00 Insulin Human NPH (Humulin N) 4 unit DAILY@0900 SC Last administered on 12/12/18 09:59; Admin Dose 4 UNIT; Start 12/12/18 at 09:00 LASHAWN CORTEZ MD Dec 12, 2018 12:55
--- NOTE | 2018-12-12 13:36 | CONS ---
Assessment/Plan Assessment/Plan Hospital Course (Demo Recall) - Progressive swelling of distal aspect of right ring finger with x-ray showing further of erosion and lucency involving the distal aspect of the distal phalanx of the right ring finger suspicious for osteomyelitis with improved but slight associated soft tissue swelling - Hx OM of R 4th digit: swelling with new erosive changes and osteopenia of the underlying R 4th distal phalanx, suggestive of osteomyelitis; wound culture grew Serratia on 03/18/18 and Serratia + CoNS (likely colonizer) on 04/04/18 ; Pt declined amputation. ESR 39 on 03/18/2018. S/p Levaquin x 6 weeks - Bacteremia d/t S. aureus 12/09/2018 - MRSA and K. pneumoniae in urine cx 12/09/2018 - Hx mild subtle increased activity within the upper aspect of LUE, nonspecific, on WBC tagged scan on 04/05/2018 - Hx OM of R 3rd fingertip (XR showed periosteal reaction at the tip of R 3rd distal phalanx, suspicious for OM, MRI showed cellulitis of distal R 4th phalanx, without OM) and L 2nd fingertip (XR showed cortical irregularity at the tuft of L 2nd distal phalanx with overlying soft tissue defect, suggesting early OM, MRI showed OM at L 2nd distal phalanx with, cellulitis about L 2nd distal phalanx without drainable fluid collection.) - Hx OM of R 2nd finger s/p amputation at proximal phalanx neck, and h/o OM of L 3rd finger s/p amputation at middle and distal phalanges - DM - Hgb A1c 10.5% - Hx Juan's esophagus and gastritis s/p EGD on 08/12/2017. No H. pylori on Bx - Hx ESRD, was on HD - S/p renal transplant in 2009 (on tacrolimus, mycophenolate and prednisone), chronic renal insufficiency at baseline - BLE atherosclerosis - Seen by Vascular Surgery during last admit - Onychomycosis, tinea pedis - Seen by General Cargo Clerk during last admit - Rheumatoid arthritis - Chronic HCV infection - HTN - Dyslipidemia - Hx polysubstance and IV drug use. - Anemia of chronic disease with h/o pernicious anemia - Hx hyperparathyroidism - Thrombosed graft of LUE Recommendations: - Hold off vancomycin - Continue Zosyn for now - F/u repeat blood cultures (pending in process) - Consider vasc surgery eval - Consider MRI - ESR serially Management d/w patient, and with Dr. Olmstead Thank you Consultation Date/Type/Reason Admit Date/Time Dec 09, 2018 at 14:30 Initial Consult Date 12/10/18 Requesting Provider: HARVINDER BLOOD MD Date/Time of Note DATE: 12/12/18 TIME: 13:27 24 HR Interval Summary Free Text/Dictation Patient has remained afebrile. He denied all ROS, showed me his R 3rd finger and states the "swelling less." Urine culture grew MRSA and K pneumoniae, patient was moved to an isolation room. Repeat blood culture from 12/09/18 growing MSSA as well. Repeat blood cultures from this am are pending in process. Exam/Review of Systems Exam Vitals Vital Signs Date Temp Pulse Resp B/P (MAP) Pulse Ox O2 O2 Flow FiO2 Time Delivery Rate 12/12/18 70 12:01 12/12/18 97.8 20 105/68 97 Room Air 11:09 (80) 12/11/18 2.0 20:00 Intake and Output 12/11/18 12/11/18 12/12/18 1515:00 23:00 07:00 IntakeIntake Total 1000 ml 2180 ml 500 ml OutputOutput Total 800 ml 350 ml BalanceBalance 1000 ml 1380 ml 150 ml Exam Constitutional: alert, oriented, well developed, frail, other (thin, cachectic) Psych: no complaints, nl mood/affect Head: normocephalic, atraumatic ENMT: nl external ears & nose, nl nasal mucosa & septum Neck: supple Respiratory: clear to auscultation, normal air movement Cardiovascular: regular rate and rhythm, nl pulses; No edema Gastrointestinal: soft, non-tender Musculoskeletal: other (LUE AVF graft with no TTP, no bruit, no thrill) Extremities: normal pulses, other (partial amputation of R 2nd and 3rd fingers and L 2nd and 3rd fingers; Blue discoloration of R middle finger distally; R 3rd and 4th fingers are swollen); No edema 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: nl mental status, nl speech, nl strength Skin: nl turgor Results Result Diagram: 12/12/18 0537 12/12/18 0537 Results 24hrs Laboratory Tests Test 12/11/18 17:37 12/11/18 20:46 12/12/18 02:11 12/12/18 05:37 Bedside Glucose 152 137 124 White Blood Count 5.8 # Red Blood Count 3.04 L Hemoglobin 10.0 L Hematocrit 31.7 L Mean Corpuscular Volume 104.3 H Mean Corpuscular 32.9 Hemoglobin Mean Corpuscular 31.5 L Hemoglobin Concent Red Cell Distribution 13.2 Width Platelet Count 218 Mean Platelet Volume 10.7 H Immature Granulocytes % 0.500 H Neutrophils % 70.5 Lymphocytes % 17.5 Monocytes % 10.7 Eosinophils % 0.5 Basophils % 0.3 Nucleated Red Blood 0.0 Cells % Immature Granulocytes # 0.030 Neutrophils # 4.1 Lymphocytes # 1.0 Monocytes # 0.6 Eosinophils # 0.0 Basophils # 0.0 Nucleated Red Blood 0.0 Cells # Sodium Level 139 Potassium Level 5.2 H Chloride Level 112 H Carbon Dioxide Level 16 L Anion Gap 11 # Blood Urea Nitrogen 40 H Creatinine 3.47 H Est Glomerular Filtrat 18 L Rate mL/min Glucose Level 55 L Calcium Level 9.8 Magnesium Level 2.0 Test 12/12/18 07:49 12/12/18 09:51 12/12/18 12:30 12/12/18 13:12 Bedside Glucose 108 85 66 L 69 L Medications Medication Current Medications Prednisone (Prednisone) 5 mg DAILY PO Last administered on 12/12/18 09:53; Admin Dose 5 MG; Start 12/10/18 at 09:00 Tacrolimus (Prograf) 2 mg QHS PO Last administered on 12/11/18 20:58; Admin Dose 2 MG; Start 12/09/18 at 21:00 Tacrolimus (Prograf) 3 mg QAM PO Last administered on 12/12/18at 09:54; Admin Dose 3 MG; Start 12/10/18 at 09:00 Diagnostic Test (Pha) (Accu-Chek) 1 ea 02 XX Last administered on 12/12/18 02:14; Admin Dose 1 EA; Start 12/10/18 at 02:00 Insulin Aspart (Novolog Insulin Pen) NOVOLOG *MILD* ALGORITHM WITH MEALS BEDTIME SC Last administered on 12/11/18 17:50; Admin Dose 1 UNIT; Start 12/09/18 at 21:00 Ondansetron HCl (Zofran Inj) 4 mg Q6H PRN IV NAUSEA/VOMITING Last administered on 12/09/18at 23:00; Admin Dose 4 MG; Start 12/09/18 at 18:30 Acetaminophen (Tylenol Tab) 650 mg Q6H PRN PO .PAIN 1-3 OR TEMP Last administered on 12/09/18at 22:14; Admin Dose 650 MG; Start 12/09/18 at 18:30 Docusate Sodium (Colace) 100 mg Q12H PRN PO .CONSTIPATION; Start 12/09/18 at 18:30 Bisacodyl (Dulcolax) 5 mg DAILY PRN PO .CONSTIPATION; Start 12/09/18 at 18:30 Famotidine (Pepcid) 20 mg DAILY PO Last administered on 12/12/18at 09:54; Admin Dose 20 MG; Start 12/09/18 at 21:00 Heparin Sodium (Porcine) (Heparin (5000 Units/1ml)) 5,000 unit Q12 SC ; Start 12/09/18 at 21:00 Sodium Chloride 1,000 ml @ 50 mls/hr Q20H IV Last administered on 12/11/18at 09:57; Admin Dose 75 MLS/HR; Start 12/09/18 at 18:30 Miscellaneous Information 1 ea NOTE XX ; Start 12/09/18 at 18:30 Glucose (Glutose) 15 gm Q15M PRN PO DECREASED GLUCOSE; Start 12/09/18 at 18:30 Glucose (Glutose) 22.5 gm Q15M PRN PO DECREASED GLUCOSE; Start 12/09/18 at 18:30 Dextrose (D50w Syringe) 25 ml Q15M PRN IV DECREASED GLUCOSE; Start 12/09/18 at 18:30 Dextrose (D50w Syringe) 50 ml Q15M PRN IV DECREASED GLUCOSE; Start 12/09/18 at 18:30 Glucagon (Glucagen) 1 mg Q15M PRN IM DECREASED GLUCOSE; Start 12/09/18 at 18:30 Glucose (Glutose) 15 gm Q15M PRN BUCCAL DECREASED GLUCOSE; Start 12/09/18 at 18:30 Hydralazine HCl (Apresoline) 20 mg Q4 PRN IV SBP > 160 Last administered on 12/09/18at 21:32; Admin Dose 20 MG; Start 12/09/18 at 21:00 Clonidine (Catapres) 0.1 mg Q6H PRN PO SBP> 160 Last administered on 12/09/18 22:14; Admin Dose 0.1 MG; Start 12/09/18 at 21:00 Amlodipine Besylate (Norvasc) 10 mg DAILY PO Last administered on 12/12/18 09:54; Admin Dose 10 MG; Start 12/09/18 at 21:00 Zolpidem Tartrate (Ambien) 5 mg HS PRN PO INSOMNIA; Start 12/09/18 at 23:30 Piperacillin Sod/ Tazobactam Sod 50 ml @ 100 mls/hr Q8 IVPB Last administered on 12/12/18 05:32; Admin Dose 100 MLS/HR; Start 12/10/18 at 14:00 Acetaminophen/ Hydrocodone Bitart ([place] ()) 1 tab Q6H PRN PO MODERATE PAIN LEVEL 4-6 Last administered on 12/12/18 11:41; Admin Dose 1 TAB; Start 12/10/18 at 19:00 Clonidine (Catapres) 0.1 mg BID PO Last administered on 12/12/18 09:54; Admin Dose 0.1 MG; Start 12/10/18 at 21:00 Hydralazine HCl (Apresoline) 25 mg Q8 PO Last administered on 12/12/18 05:32; Admin Dose 25 MG; Start 12/10/18 at 22:00 Tamsulosin HCl (Flomax) 0.4 mg HS PO Last administered on 12/11/18 20:58; Admin Dose 0.4 MG; Start 12/10/18 at 21:00 Morphine Sulfate (morphine) 2 mg Q4H PRN IV .SEVERE PAIN 7-10; Start 12/11/18 at 11:22 Insulin Human NPH (Humulin N) 4 unit DAILY@0900 SC Last administered on 12/12/18 09:59; Admin Dose 4 UNIT; Start 12/12/18 at 09:00 Insulin Aspart (Novolog Insulin Pen) 3 unit WITH MEALS SC ; Start 12/12/18 at 1 8:00 Insulin Glargine (Lantus) 8 units DAILY@2000 SC ; Start 12/12/18 at 20:00 MAHAD MAHARAJ NP Dec 12, 2018 13:36
--- NOTE | 2018-12-12 13:53 | CONS ---
Consult Date/Type/Reason Admit Date/Time Dec 09, 2018 at 14:30 Initial Consult Date 12/10/18 Type of Consultation: Urology Reason for Consultation Mild hydronephrosis in the transplanted kidney, urinary tract infection Requesting Provider: HARVINDER BLOOD MD Date/Time of Note DATE: 12/12/18 TIME: 13:42 Subjective Patient is comfortable and he denies any pain in the suprapubic area Objective Vitals Vital Signs Date Temp Pulse Resp B/P (MAP) Pulse Ox O2 O2 Flow FiO2 Time Delivery Rate 12/12/18 70 12:01 12/12/18 97.8 20 105/68 97 Room Air 11:09 (80) 12/11/18 2.0 20:00 Intake and Output 12/11/18 12/11/18 12/12/18 1414:59 22:59 06:59 IntakeIntake Total 1000 ml 2180 ml 500 ml OutputOutput Total 800 ml 350 ml BalanceBalance 1000 ml 1380 ml 150 ml Exam The abdomen is soft the patient is able to void on his own and this morning he voided 220 mL and his postvoid residual by the bladder scan was 110 ml Results/Medications Result Diagram: 12/12/18 0537 12/12/18 0537 Results 24 hrs Laboratory Tests Test 12/11/18 17:37 12/11/18 20:46 12/12/18 02:11 12/12/18 05:37 Bedside Glucose 152 137 124 White Blood Count 5.8 # Red Blood Count 3.04 L Hemoglobin 10.0 L Hematocrit 31.7 L Mean Corpuscular Volume 104.3 H Mean Corpuscular 32.9 Hemoglobin Mean Corpuscular 31.5 L Hemoglobin Concent Red Cell Distribution 13.2 Width Platelet Count 218 Mean Platelet Volume 10.7 H Immature Granulocytes % 0.500 H Neutrophils % 70.5 Lymphocytes % 17.5 Monocytes % 10.7 Eosinophils % 0.5 Basophils % 0.3 Nucleated Red Blood 0.0 Cells % Immature Granulocytes # 0.030 Neutrophils # 4.1 Lymphocytes # 1.0 Monocytes # 0.6 Eosinophils # 0.0 Basophils # 0.0 Nucleated Red Blood 0.0 Cells # Sodium Level 139 Potassium Level 5.2 H Chloride Level 112 H Carbon Dioxide Level 16 L Anion Gap 11 # Blood Urea Nitrogen 40 H Creatinine 3.47 H Est Glomerular Filtrat 18 L Rate mL/min Glucose Level 55 L Calcium Level 9.8 Magnesium Level 2.0 Test 12/12/18 07:49 12/12/18 09:51 12/12/18 12:30 12/12/18 13:12 Bedside Glucose 108 85 66 L 69 L Home Meds Reported Medications Sitagliptin* (Januvia*) 50 Mg Tablet, 50 MG PO DAILY, #30 TAB 12/09/18 Tacrolimus* (Tacrolimus*) 1 Mg Capsule, 3 MG PO QAM, CAP 12/09/18 Tacrolimus* (Tacrolimus*) 1 Mg Capsule, 2 MG PO QHS, CAP 12/09/18 Mycophenolate Sodium* (Mycophenolic Acid*) 180 Mg Tablet.dr, 540 MG PO Q12, TAB 12/09/18 Prednisone* (Prednisone*) 5 Mg Tab, 5 MG PO DAILY, TAB 12/09/18 Glipizide* (Glipizide*) 5 Mg Tablet, 5 MG PO AC BREAKFAST DINNER, TAB 12/09/18 Clonidine Hcl* (Clonidine Hcl*) 0.1 Mg Tab, 0.1 MG PO DAILY, TAB 12/09/18 Insulin Lispro (Humalog) 100 Unit/1 Ml Cartridge, 0 SQ SLIDING SCALE, EA INSURANECE NOT COVERED THIS INSULIN 09/23/18 Discontinued Reported Medications Atorvastatin Calcium (Atorvastatin Calcium) 10 Mg Tablet, 10 MG PO QHS, #30 TAB 09/23/18 Prednisone* (Prednisone*) 5 Mg Tab, 5 MG PO DAILY, TAB 09/23/18 Metoclopramide* (Reglan*) 10 Mg Tablet, 10 MG PO NEEDED, TAB 09/23/18 Glipizide* (Glipizide*) 5 Mg Tablet, 5 MG PO AC BREAKFAST DINNER, TAB 09/23/18 Sitagliptin* (Januvia*) 50 Mg Tablet, 50 MG PO DAILY, #30 TAB 09/23/18 Tacrolimus* (Tacrolimus*) 0.5 Mg Capsule, 2 MG PO Q12, CAP 09/23/18 Clonidine Hcl* (Clonidine Hcl*) 0.1 Mg Tab, 0.1 MG PO DAILY, TAB 09/23/18 Discontinued Scripts Ondansetron (Ondansetron Odt) 4 Mg Tab.rapdis, 4 MG PO Q6H PRN for NAUSEA AND/OR VOMITING, #10 TAB Prov:LIZ OCHOA MD 09/23/18 Aspirin (Aspirin) 81 Mg Chew, 81 MG PO DAILY for 30 Days, TAB Prov:LETI RODRIGUEZ 04/10/18 Mycophenolate Sodium* (Myfortic*) 180 Mg Tab, 540 MG PO BID for 30 Days, TAB Prov:LETI RODRIGUEZ 05/09/17 Medications Current Medications Prednisone (Prednisone) 5 mg DAILY PO Last administered on 12/12/18 09:53; Admin Dose 5 MG; Start 12/10/18 at 09:00 Tacrolimus (Prograf) 2 mg QHS PO Last administered on 12/11/18 20:58; Admin Dose 2 MG; Start 12/09/18 at 21:00 Tacrolimus (Prograf) 3 mg QAM PO Last administered on 12/12/18 09:54; Admin Dose 3 MG; Start 12/10/18 at 09:00 Diagnostic Test (Pha) (Accu-Chek) 1 ea 02 XX Last administered on 12/12/18 02:14; Admin Dose 1 EA; Start 12/10/18 at 02:00 Insulin Aspart (Novolog Insulin Pen) NOVOLOG *MILD* ALGORITHM WITH MEALS BEDTIME SC Last administered on 12/11/18 17:50; Admin Dose 1 UNIT; Start 12/09/18 at 21:00 Ondansetron HCl (Zofran Inj) 4 mg Q6H PRN IV NAUSEA/VOMITING Last administered on 12/09/18 23:00; Admin Dose 4 MG; Start 12/09/18 at 18:30 Acetaminophen (Tylenol Tab) 650 mg Q6H PRN PO .PAIN 1-3 OR TEMP Last administered on 12/09/18 22:14; Admin Dose 650 MG; Start 12/09/18 at 18:30 Docusate Sodium (Colace) 100 mg Q12H PRN PO .CONSTIPATION; Start 12/09/18 at 18:30 Bisacodyl (Dulcolax) 5 mg DAILY PRN PO .CONSTIPATION; Start 12/09/18 at 18:30 Famotidine (Pepcid) 20 mg DAILY PO Last administered on 12/12/18 09:54; Admin Dose 20 MG; Start 12/09/18 at 21:00 Heparin Sodium (Porcine) (Heparin (5000 Units/1ml)) 5,000 unit Q12 SC ; Start 12/09/18 at 21:00 Sodium Chloride 1,000 ml @ 50 mls/hr Q20H IV Last administered on 12/11/18 09:57; Admin Dose 75 MLS/HR; Start 12/09/18 at 18:30 Miscellaneous Information 1 ea NOTE XX ; Start 12/09/18 at 18:30 Glucose (Glutose) 15 gm Q15M PRN PO DECREASED GLUCOSE; Start 12/09/18 at 18:30 Glucose (Glutose) 22.5 gm Q15M PRN PO DECREASED GLUCOSE; Start 12/09/18 at 18:30 Dextrose (D50w Syringe) 25 ml Q15M PRN IV DECREASED GLUCOSE; Start 12/09/18 at 18:30 Dextrose (D50w Syringe) 50 ml Q15M PRN IV DECREASED GLUCOSE; Start 12/09/18 at 18:30 Glucagon (Glucagen) 1 mg Q15M PRN IM DECREASED GLUCOSE; Start 12/09/18 at 18:30 Glucose (Glutose) 15 gm Q15M PRN BUCCAL DECREASED GLUCOSE; Start 12/09/18 at 18:30 Hydralazine HCl (Apresoline) 20 mg Q4 PRN IV SBP > 160 Last administered on 12/09/18 21:32; Admin Dose 20 MG; Start 12/09/18 at 21:00 Clonidine (Catapres) 0.1 mg Q6H PRN PO SBP> 160 Last administered on 12/09/18 22:14; Admin Dose 0.1 MG; Start 12/09/18 at 21:00 Amlodipine Besylate (Norvasc) 10 mg DAILY PO Last administered on 12/12/18 09:54; Admin Dose 10 MG; Start 12/09/18 at 21:00 Zolpidem Tartrate (Ambien) 5 mg HS PRN PO INSOMNIA; Start 12/09/18 at 23:30 Piperacillin Sod/ Tazobactam Sod 50 ml @ 100 mls/hr Q8 IVPB Last administered on 12/12/18 05:32; Admin Dose 100 MLS/HR; Start 12/10/18 at 14:00 Acetaminophen/ Hydrocodone Bitart ([place] (10/325)) 1 tab Q6H PRN PO MODERATE PAIN LEVEL 4-6 Last administered on 12/12/18at 11:41; Admin Dose 1 TAB; Start 12/10/18 at 19:00 Clonidine (Catapres) 0.1 mg BID PO Last administered on 12/12/18at 09:54; Admin Dose 0.1 MG; Start 12/10/18 at 21:00 Hydralazine HCl (Apresoline) 25 mg Q8 PO Last administered on 12/12/18at 05:32; Admin Dose 25 MG; Start 12/10/18 at 22:00 Tamsulosin HCl (Flomax) 0.4 mg HS PO Last administered on 12/11/18at 20:58; Admin Dose 0.4 MG; Start 12/10/18 at 21:00 Morphine Sulfate (morphine) 2 mg Q4H PRN IV .SEVERE PAIN 7-10; Start 12/11/18 at 11:22 Insulin Human NPH (Humulin N) 4 unit DAILY@0900 SC Last administered on 12/12/18at 09:59; Admin Dose 4 UNIT; Start 12/12/18 at 09:00 Insulin Aspart (Novolog Insulin Pen) 3 unit WITH MEALS SC ; Start 12/12/18 at 18:00 Insulin Glargine (Lantus) 8 units DAILY@2000 SC ; Start 12/12/18 at 20:00 Assessment/Plan Hospital Course (Demo Recall) This is a 58-year-old male with a past medical history of cadaveric kidney transplant in 2009, on Tacrolimus , prednisone 5 mg daily, rheumatoid arthritis, HCV infection, history of 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 The patient said that the symptoms started 4 days ago and the skin darkening progressed over the last couple of days. On admission the blood sugar was 500, sodium 134, potassium 6.1, bicarbonate 18, BUN of 48, creatinine of 3.21. The patient's baseline creatinine is 1.5 and that has been going gradually up since 2017. Patient states that he has an appointment at [facility] on December 11, 2018 to have biopsy of the kidney transplant because of the rising creatinine. He underwent a renal ultrasound and that showed that the transplanted kidney is a little a hydronephrotic. Therefore a urological consultation was requested. Patient states that he does have nocturia about 3 times a night and during the day he voids 4-5 times. He denies any dysuria. He states his urinary stream is strong and there is no gross hematuria. He denies any history of urinary tract infection. The patient does have severe atherosclerosis of his vessels. He does have peripheral vascular disease. He is creatinine has been going up gradually and he was supposed to go to [facility] to undergo biopsy of his transplanted kidney. The ultrasound that he had did show a small right hydronephrosis and that is not unusual to see that in the transplanted kidney especially when the bladder is full. The patient does void and he did this morning about 220 mL and his postvoid residual by bladder scan was 110 mL. His urine culture did show MRSA. He is being followed by infectious disease and he is on Zosyn. RAMILA GONZALEZ MD Dec 12, 2018 13:53
--- NOTE | 2018-12-12 13:53 | CONS ---
Assessment/Plan Assessment/Plan Hospital Course (Demo Recall) 1. Acute on chronic renal failure. Creatinine is increasing. Hydronephrosis. Dr Blood spoke to [facility], Cr was 2.5 in 10/20 now 3.47. It could be due to sepsis vs ATN vs Prograf toxicity vs mild hydronephrosis. Recommended transfer to tertiary center 2. Hyperkalemia, could be secondary to uncontrolled sugars/worsening renal failure, rule out Prograf toxicity. 3. Metabolic acidosis. 4. Sepsis, questionable. 5. Right middle finger cellulitis with gangrene. 6. Status post donor renal transplantation in 2009. 6. Hypertension. 7. Right 4th toe gangrene. 8. Severe peripheral vascular disease. 9. History of Juan's esophagitis. 10. Chronic hepatitis C virus infection. 11. History of polysubstance use. 12. DM type II Assessment/Plan (Daily) -iv fluids -hold myfortic due to bacteremia. -Prograf levels pending -urology dr Noguera called -spoke to [facility] will accept pt for higher level of care > will need renal biopsy and transplant urology -dr Jordan renal transplant team will see pt -renally dose all meds -avoid nephrotoxins Consultation Date/Type/Reason Admit Date/Time Dec 09, 2018 at 14:30 Initial Consult Date 12/10/18 Type of Consult nephrology Requesting Provider: HARVINDER BLOOD MD Date/Time of Note DATE: 12/12/18 TIME: 13:49 24 HR Interval Summary Constitutional: no complaints Exam/Review of Systems Exam Vitals Vital Signs Date Temp Pulse Resp B/P (MAP) Pulse Ox O2 O2 Flow FiO2 Time Delivery Rate 12/12/18 70 12:01 12/12/18 97.8 20 105/68 97 Room Air 11:09 (80) 12/11/18 2.0 20:00 Intake and Output 12/11/18 12/11/18 12/12/18 1515:00 23:00 07:00 IntakeIntake Total 1000 ml 2180 ml 500 ml OutputOutput Total 800 ml 350 ml BalanceBalance 1000 ml 1380 ml 150 ml Constitutional: alert, oriented Eyes: nl conjunctiva ENMT: nl external ears & nose Neck: supple Respiratory: clear to auscultation Cardiovascular: regular rate and rhythm Results Result Diagram: 12/12/18 0537 12/12/18 0537 Results 24hrs Laboratory Tests Test 12/11/18 17:37 12/11/18 20:46 12/12/18 02:11 12/12/18 05:37 Bedside Glucose 152 137 124 White Blood Count 5.8 # Red Blood Count 3.04 L Hemoglobin 10.0 L Hematocrit 31.7 L Mean Corpuscular Volume 104.3 H Mean Corpuscular 32.9 Hemoglobin Mean Corpuscular 31.5 L Hemoglobin Concent Red Cell Distribution 13.2 Width Platelet Count 218 Mean Platelet Volume 10.7 H Immature Granulocytes % 0.500 H Neutrophils % 70.5 Lymphocytes % 17.5 Monocytes % 10.7 Eosinophils % 0.5 Basophils % 0.3 Nucleated Red Blood 0.0 Cells % Immature Granulocytes # 0.030 Neutrophils # 4.1 Lymphocytes # 1.0 Monocytes # 0.6 Eosinophils # 0.0 Basophils # 0.0 Nucleated Red Blood 0.0 Cells # Sodium Level 139 Potassium Level 5.2 H Chloride Level 112 H Carbon Dioxide Level 16 L Anion Gap 11 # Blood Urea Nitrogen 40 H Creatinine 3.47 H Est Glomerular Filtrat 18 L Rate mL/min Glucose Level 55 L Calcium Level 9.8 Magnesium Level 2.0 Test 12/12/18 07:49 12/12/18 09:51 12/12/18 12:30 12/12/18 13:12 Bedside Glucose 108 85 66 L 69 L Medications Medication Current Medications Prednisone (Prednisone) 5 mg DAILY PO Last administered on 12/12/18at 09:53; Admin Dose 5 MG; Start 12/10/18 at 09:00 Tacrolimus (Prograf) 2 mg QHS PO Last administered on 12/11/18at 20:58; Admin Dose 2 MG; Start 12/09/18 at 21:00 Tacrolimus (Prograf) 3 mg QAM PO Last administered on 12/12/18 09:54; Admin Dose 3 MG; Start 12/10/18 at 09:00 Diagnostic Test (Pha) (Accu-Chek) 1 ea 02 XX Last administered on 12/12/18at 02:14; Admin Dose 1 EA; Start 12/10/18 at 02:00 Insulin Aspart (Novolog Insulin Pen) NOVOLOG *MILD* ALGORITHM WITH MEALS BEDTIME SC Last administered on 12/11/18at 17:50; Admin Dose 1 UNIT; Start 12/09/18 at 21:00 Ondansetron HCl (Zofran Inj) 4 mg Q6H PRN IV NAUSEA/VOMITING Last administered on 12/09/18at 23:00; Admin Dose 4 MG; Start 12/09/18 at 18:30 Acetaminophen (Tylenol Tab) 650 mg Q6H PRN PO .PAIN 1-3 OR TEMP Last administered on 12/09/18at 22:14; Admin Dose 650 MG; Start 12/09/18 at 18:30 Docusate Sodium (Colace) 100 mg Q12H PRN PO .CONSTIPATION; Start 12/09/18 at 18:30 Bisacodyl (Dulcolax) 5 mg DAILY PRN PO .CONSTIPATION; Start 12/09/18 at 18:30 Famotidine (Pepcid) 20 mg DAILY PO Last administered on 12/12/18at 09:54; Admin Dose 20 MG; Start 12/09/18 at 21:00 Heparin Sodium (Porcine) (Heparin (5000 Units/1ml)) 5,000 unit Q12 SC ; Start 12/09/18 at 21:00 Sodium Chloride 1,000 ml @ 50 mls/hr Q20H IV Last administered on 12/11/18 09:57; Admin Dose 75 MLS/HR; Start 12/09/18 at 18:30 Miscellaneous Information 1 ea NOTE XX ; Start 12/09/18 at 18:30 Glucose (Glutose) 15 gm Q15M PRN PO DECREASED GLUCOSE; Start 12/09/18 at 18:30 Glucose (Glutose) 22.5 gm Q15M PRN PO DECREASED GLUCOSE; Start 12/09/18 at 18:30 Dextrose (D50w Syringe) 25 ml Q15M PRN IV DECREASED GLUCOSE; Start 12/09/18 at 18:30 Dextrose (D50w Syringe) 50 ml Q15M PRN IV DECREASED GLUCOSE; Start 12/09/18 at 18:30 Glucagon (Glucagen) 1 mg Q15M PRN IM DECREASED GLUCOSE; Start 12/09/18 at 18:30 Glucose (Glutose) 15 gm Q15M PRN BUCCAL DECREASED GLUCOSE; Start 12/09/18 at 18:30 Hydralazine HCl (Apresoline) 20 mg Q4 PRN IV SBP > 160 Last administered on 2/6/19at 21:32; Admin Dose 20 MG; Start 12/09/18 at 21:00 Clonidine (Catapres) 0.1 mg Q6H PRN PO SBP> 160 Last administered on 12/09/18 22:14; Admin Dose 0.1 MG; Start 12/09/18 at 21:00 Amlodipine Besylate (Norvasc) 10 mg DAILY PO Last administered on 12/12/18 09:54; Admin Dose 10 MG; Start 12/09/18 at 21:00 Zolpidem Tartrate (Ambien) 5 mg HS PRN PO INSOMNIA; Start 12/09/18 at 23:30 Piperacillin Sod/ Tazobactam Sod 50 ml @ 100 mls/hr Q8 IVPB Last administered on 12/12/18 05:32; Admin Dose 100 MLS/HR; Start 12/10/18 at 14:00 Acetaminophen/ Hydrocodone Bitart ([place] (10/325)) 1 tab Q6H PRN PO MODERATE PAIN LEVEL 4-6 Last administered on 12/12/18 11:41; Admin Dose 1 TAB; Start 12/10/18 at 19:00 Clonidine (Catapres) 0.1 mg BID PO Last administered on 12/12/18 09:54; Admin Dose 0.1 MG; Start 12/10/18 at 21:00 Hydralazine HCl (Apresoline) 25 mg Q8 PO Last administered on 12/12/18 05:32; Admin Dose 25 MG; Start 12/10/18 at 22:00 Tamsulosin HCl (Flomax) 0.4 mg HS PO Last administered on 12/11/18 20:58; Admin Dose 0.4 MG; Start 12/10/18 at 21:00 Morphine Sulfate (morphine) 2 mg Q4H PRN IV .SEVERE PAIN 7-10; Start 12/11/18 at 11:22 Insulin Human NPH (Humulin N) 4 unit DAILY@0900 SC Last administered on 12/12/18 09:59; Admin Dose 4 UNIT; Start 12/12/18 at 09:00 Insulin Aspart (Novolog Insulin Pen) 3 unit WITH MEALS SC ; Start 12/12/18 at 18:00 Insulin Glargine (Lantus) 8 units DAILY@2000 SC ; Start 2/9/19 at 20:00 GENNARO GAO Dec 12, 2018 13:53
--- NOTE | 2018-12-12 16:10 | NUR ---
MARGARITO NOTE FOLLOWED UP WITH ESSIE AT [facility] IN REGARD TO UPDATES AND AT THIS TIME, MARGARITO WAS DIRECTED TO CALL [phone] Addendum: 12/12/18 at 1623 by JF EVERETT RN, CM CM WAS CONNECTED TO THE COORDINATOR, KEO [phone] SILAS.
--- NOTE | 2018-12-12 16:13 | CONS ---
DATE OF ADMISSION: 12/09/2018 DATE OF CONSULTATION: 12/12/2018 TYPE OF CONSULTATION: Orthopedic surgical consultation. HISTORY OF PRESENT ILLNESS: The patient is a 58-year-old male with a known history of diabetes along with chronic kidney disease who had a kidney transplant lately. 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 At this time, he developed some swelling and discoloration involving the tip of the right middle fing er, which started about a week ago and was admitted. According to the patient since his admission, he is having decreasing pain and swelling involving the distal phalanx of the right middle finger. He had an AV shunt placed in the upper extremities for his chronic disease and because of that, he wa s developing ischemic gangrene involving multiple finger and was treated with amputation more on the left side. There was an old shunt in the left upper extremity and there were multiple fingers which was treated with amputation. On the right side, the brachial artery was palpable and right hand is r elatively warm, even though radial artery and ulnar artery is not palpable. Right hand itself is als o warm. There is a preexisting amputation of the distal phalanx of the right index finger and there is a brownish discoloration involving the distal phalanx of the right middle finger. There also was a mild deformity involving the distal phalanx of the right ring finger. X-ray shows soft tissue swel ling involving the distal phalanx of the right middle finger; however, there were no bony destruction s. PHYSICAL EXAMINATION: He is afebrile at this time, and there was no leukocytosis. DIAGNOSTIC IMPRESSION: Possible residual ischemic changes involving the distal phalanx of the right middle finger. RECOMMENDATIONS FOR MANAGEMENT: While discussing for possible amputation of the distal phalanx of th e right middle finger, the patient claims that is entirely pain free and he feels that it is better a t this time than the time of admission and he wanted to wait for a while before we can consider amput ation and because of the absence of pain and because of the absence of any signs of acute pyogenic pr ocess, I felt that it is acceptable to wait and see for a while before we carry out any amputation. Dictated By: REMINGTON MOON/NAKIA Conf#: [id number] [facility]#: [id number]
--- NOTE | 2018-12-12 16:31 | NUR ---
CM NOTE CM WAS CONNECTED TO THE COORDINATOR FOR TRANSPLANT,KIDNEY TRANSPLANT KEO [phone] TRANSPLANT. PER HER SHE WORKS WITH DR ROBERTS AND SHE WILL CONTACT [facility] [phone] AND WILL FOLLOW UP,SHE WAS PROVIDED THE NUMBER OF THE FLOOR AND WILL FOLLOW UP. A CM WILL FOLLOW UP. CORINA EVERETT RN [facility] EXT [id number]
[2018-12-12] MEDS: TAMSULOSIN (SR) 0.4 MG CAP PO SCH (21:36)
[2018-12-12] MEDS: INSULIN GLARGINE [LANTus] (100 UNITS/ML) SYG SC SCH (22:09)
[2018-12-13] VITALS (9 sets, daily range): BP systolic 106–157; BP diastolic 66–86; PULSE 62–87; RESP 18
[2018-12-13] MEDS: ACCU-CHEK XX SCH (02:00)
[2018-12-13] MEDS: HYDROCODONE/APAP (10/325) TAB PO PRN ×3 (06:08→18:22)
[2018-12-13] MEDS: PIPER-TAZO 2.25 GM (PMX) 50 ML IVPB SCH (06:16)
--- NOTE | 2018-12-13 06:41 | NUR ---
EOSS Pt AAO x4. No s/s of respiratory distress, pain or discomfort.Voided clear jv urine. Dressing change today per order. All medications well tolerated. Call within reach, bed in low position, brakes locked, call light within reach, upper side rails in raised position, belongings and bedside table positioned within patient's reach. No acute changes
[2018-12-13] MEDS: INSULIN ASPART [NOVOLOG] 3 ML PEN SC SCH ×6 (08:31→21:00)
[2018-12-13] MEDS: NPH, HUMAN INSULIN ISOPHANE 3ML VIAL SC SCH (08:31)
[2018-12-13] MEDS: HEPARIN 5,000 UNIT/1 ML VIAL SC SCH ×2 (08:58→21:00)
[2018-12-13] MEDS: predniSONE 5 MG TAB PO SCH (09:08)
[2018-12-13] MEDS: FAMOTIDINE 20 MG TAB PO SCH (09:08)
[2018-12-13] MEDS: AMLODIPINE 10 MG TAB PO SCH (09:09)
[2018-12-13] MEDS: TACROLIMUS 1 MG CAP PO SCH ×2 (09:09→22:03)
--- NOTE | 2018-12-13 09:16 | CONS ---
[facility] HCIS Consult Follow-up Patient Name: Esvin Manley Unit Number: [id number] Date of : 1960 Patient Status: Admitted Inpatient Attending Doctor: Lul Maier MD Edit: HARVINDER BLOOD MD on 12/13/18 @ 16:51 PT SEEN an examined with BICYCLE REPAIRMAN Acute on chronic renal failure[facility]5 [facility]/20 now 3.19> 3.9 culd be due to sepsis vs ATN vs prograft toxicity vs mild hydro hold myfortic due to bacterimia dec Prograft already to 2/2 Prograft levels pending Kayexalate prn bicarb gtt iv bicarb monitor UOP [facility] of [facility] > will need renal biopsy and transplant urology dr jordan renal tranplant [facility]o will see pt renally dose all meds [place] nephrotoxins Already spoke to finance effectiveness manager , manoloiikaterin for auth Assessment/Plan Assessment/Plan Hospital Course (Demo Recall) 1. Acute on chronic renal failure. Creatinine is increasing. Hydronephrosis. Dr Blood spoke to [facility], Cr was 2.5 in 10/20 on admission is 3.47. It could be due to sepsis vs ATN vs Prograf toxicity vs mild hydronephrosis. Recommended transfer to tertiary center 2. Hyperkalemia, could be secondary to uncontrolled sugars/worsening renal failure, rule out Prograf toxicity. 3. Metabolic acidosis. 4. Sepsis, questionable. 5. Right middle finger cellulitis with gangrene. 6. Status post donor renal transplantation in 2009. 6. Hypertension. 7. Right 4th toe gangrene. 8. Severe peripheral vascular disease. 9. History of Juan's esophagitis. 10. Chronic hepatitis C virus infection. 11. History of polysubstance use. 12. DM type II Assessment/Plan (Daily) -c/w iv fluids -Prograf levels pending -urology dr Noguera [facility] of [facility] > will need renal biopsy and transplant urology -dr Jordan renal transplant team will see pt -renally dose all meds -avoid nephrotoxins Consultation Date/Type/Reason Admit Date/Time Dec 09, 2018 at 14:30 Initial Consult Date 12/10/18 Type of Consult nephrology Requesting Provider: HARVINDER BLOOD MD Date/Time of Note DATE: 12/13/18 TIME: 09:15 Exam/Review of Systems Exam Vitals Vital Signs Date Temp Pulse Resp B/P (MAP) Pulse Ox O2 O2 Flow FiO2 Time Delivery Rate 12/13/18 63 08:01 12/13/18 98.0 18 127/75 98 07:52 (92) 12/13/18 Nasal 2.0 01:59 Cannula Intake and Output 12/12/18 12/12/18 12/13/18 1515:00 23:00 07:00 IntakeIntake Total 960 ml 350 ml OutputOutput Total 225 ml 900 ml 200 ml BalanceBalance -225 ml 60 ml 150 ml Constitutional: alert, oriented Respiratory: clear to auscultation Cardiovascular: regular rate and rhythm Gastrointestinal: soft Results Result Diagram: 12/12/18 0537 12/12/18 0537 Results 24hrs Laboratory Tests Test 12/12/18 09:51 12/12/18 12:30 12/12/18 13:12 12/12/18 17:08 Bedside Glucose 85 66 L 69 L 211 Test 12/12/18 21:40 12/13/18 08:21 Bedside Glucose 174 189 Medications Medication Current Medications Prednisone (Prednisone) 5 mg DAILY PO Last administered on 12/13/18at 09:08; Admin Dose 5 MG; Start 12/10/18 at 09:00 Tacrolimus (Prograf) 2 mg QHS PO Last administered on 12/12/18at 21:37; Admin Dose 2 MG; Start 12/09/18 at 21:00 Diagnostic Test (Pha) (Accu-Chek) 1 ea 02 XX Last administered on 12/12/18at 02:14; Admin Dose 1 EA; Start 12/10/18 at 02:00 Insulin Aspart (Novolog Insulin Pen) NOVOLOG *MILD* ALGORITHM WITH MEALS BEDTIME SC Last administered on 12/13/18 08:31; Admin Dose 2 UNIT; Start 12/09/18 at 21:00 Ondansetron HCl (Zofran Inj) 4 mg Q6H PRN IV NAUSEA/VOMITING Last administered on 12/09/18at 23:00; Admin Dose 4 MG; Start 12/09/18 at 18:30 Acetaminophen (Tylenol Tab) 650 mg Q6H PRN PO .PAIN 1-3 OR TEMP Last administered on 12/09/18at 22:14; Admin Dose 650 MG; Start 12/09/18 at 18:30 Docusate Sodium (Colace) 100 mg Q12H PRN PO .CONSTIPATION; Start 12/09/18 at 18:30 Bisacodyl (Dulcolax) 5 mg DAILY PRN PO .CONSTIPATION; Start 12/09/18 at 18:30 Famotidine (Pepcid) 20 mg DAILY PO Last administered on 12/13/18at 09:08; Admin Dose 20 MG; Start 12/09/18 at 21:00 Heparin Sodium (Porcine) (Heparin (5000 Units/1ml)) 5,000 unit Q12 SC ; Start 12/09/18 at 21:00 Sodium Chloride 1,000 ml @ 50 mls/hr Q20H IV Last administered on 12/11/18at 09:57; Admin Dose 75 MLS/HR; Start 12/09/18 at 18:30 Miscellaneous Information 1 ea NOTE XX ; Start 12/09/18 at 18:30 Glucose (Glutose) 15 gm Q15M PRN PO DECREASED GLUCOSE; Start 12/09/18 at 18:30 Glucose (Glutose) 22.5 gm Q15M PRN PO DECREASED GLUCOSE; Start 12/09/18 at 18:30 Dextrose (D50w Syringe) 25 ml Q15M PRN IV DECREASED GLUCOSE; Start 12/09/18 at 18:30 Dextrose (D50w Syringe) 50 ml Q15M PRN IV DECREASED GLUCOSE; Start 12/09/18 at 18:30 Glucagon (Glucagen) 1 mg Q15M PRN IM DECREASED GLUCOSE; Start 12/09/18 at 18:30 Glucose (Glutose) 15 gm Q15M PRN BUCCAL DECREASED GLUCOSE; Start 12/09/18 at 18:30 Hydralazine HCl (Apresoline) 20 mg Q4 PRN IV SBP > 160 Last administered on 12/09 21:32; Admin Dose 20 MG; Start 12/09/18 at 21:00 Clonidine (Catapres) 0.1 mg Q6H PRN PO SBP> 160 Last administered on 12/09/18 22:14; Admin Dose 0.1 MG; Start 12/09/18 at 21:00 Amlodipine Besylate (Norvasc) 10 mg DAILY PO Last administered on 12/13/18 09:09; Admin Dose 10 MG; Start 12/09/18 at 21:00 Zolpidem Tartrate (Ambien) 5 mg HS PRN PO INSOMNIA; Start 12/09/18 at 23:30 Piperacillin Sod/ Tazobactam Sod 50 ml @ 100 mls/hr Q8 IVPB Last administered on 12/13/18 06:16; Admin Dose 100 MLS/HR; Start 12/10/18 at 14:00 Acetaminophen/ Hydrocodone Bitart ([place] ()) 1 tab Q6H PRN PO MODERATE PAIN LEVEL 4-6 Last administered on 12/13/18 06:08; Admin Dose 1 TAB; Start 12/10/18 at 19:00 Clonidine (Catapres) 0.1 mg BID PO Last administered on 12/13/18 09:09; Admin Dose 0.1 MG; Start 12/10/18 at 21:00 Hydralazine HCl (Apresoline) 25 mg Q8 PO Last administered on 12/13/18 06:07; Admin Dose 25 MG; Start 12/10/18 at 22:00 Tamsulosin HCl (Flomax) 0.4 mg HS PO Last administered on 12/12/18 21:36; Admin Dose 0.4 MG; Start 12/10/18 at 21:00 Morphine Sulfate (morphine) 2 mg Q4H PRN IV .SEVERE PAIN 7-10; Start 12/11/18 at 11:22 Insulin Human NPH (Humulin N) 4 unit DAILY@0900 SC Last administered on 12/13/18 08:31; Admin Dose 4 UNIT; Start 12/12/18 at 09:00 Insulin Aspart (Novolog Insulin Pen) 3 unit WITH MEALS SC Last administered on 12/13/18 08:31; Admin Dose 3 UNIT; Start 12/12/18 at 18:00 Insulin Glargine (Lantus) 8 units DAILY@2000 SC Last administered on 12/12/18at 22:09; Admin Dose 8 UNITS; Start 12/12/18 at 20:00 Tacrolimus (Prograf) 2 mg QAM PO Last administered on 12/13/18at 09:09; Admin Dose 2 MG; Start 12/13/18 at 09:00 GENNARO GAO Dec 13, 2018 09:16
--- NOTE | 2018-12-13 11:11 | CONS ---
Assessment/Plan Assessment/Plan Hospital Course (Demo Recall) IMPRESSION: 1. Hypertension-labile 2. Gangrenous changes of the patient's finger. 3. Renal failure on HD 4. Rheumatoid arthritis. 5. Diabetes mellitus. 6. History of Juan's esophagus. 7. Dyslipidemia. Recc: -Tele -serial ecg's -Continue clonidine and hydralazine with reasonable bp control -Continue Norvasc -Continue immunosuppresives -HD for volume removal -ongoing ortho eval of finger with probable conservative management at this time Consultation Date/Type/Reason Admit Date/Time Dec 09, 2018 at 14:30 Initial Consult Date 12/10/18 Type of Consult Cardiology Reason for Consultation HTN Requesting Provider: HARVINDER BLOOD MD Date/Time of Note DATE: 12/13/18 TIME: 11:09 Exam/Review of Systems Vital Signs Vitals Vital Signs Date Temp Pulse Resp B/P (MAP) Pulse Ox O2 O2 Flow FiO2 Time Delivery Rate 12/13/18 63 08:01 12/13/18 98.0 18 127/75 98 07:52 (92) 12/13/18 Nasal 2.0 01:59 Cannula Intake and Output 12/12/18 12/12/18 12/13/18 1515:00 23:00 07:00 IntakeIntake Total 960 ml 350 ml OutputOutput Total 225 ml 900 ml 200 ml BalanceBalance -225 ml 60 ml 150 ml Exam Exam Review of Systems: CONSTITUTIONAL: No fevers, chills. PULMONARY: No sob CARDIOVASCULAR: No chest pain/palpitations GASTROINTESTINAL: No nausea/vomiting. GENITOURINARY: No hematuria/dysuria. MUSCULOSKELETAL: No myagias/arthalgias. PSYCHIATRIC: The patient denies depression. NEUROLOGIC: No weakness Constitutional: alert, oriented Psych: no complaints Head: normocephalic ENMT: mucosa pink and moist Neck: supple, jvd (9 cm water) Respiratory: clear to auscultation Cardiovascular: regular rate and rhythm Gastrointestinal: soft, non-tender Musculoskeletal: muscle tone (normal) Extremities: edema (none) 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: other (No focal defiicts) Labs Result Diagram: 12/12/18 0537 12/12/18 0537 Results 24hrs Laboratory Tests Test 12/12/18 12:30 12/12/18 13:12 12/12/18 17:08 12/12/18 21:40 Bedside Glucose 66 L 69 L 211 174 Test 12/13/18 08:21 Bedside Glucose 189 Medications Medications Current Medications Prednisone (Prednisone) 5 mg DAILY PO Last administered on 12/13/18 09:08; Admin Dose 5 MG; Start 12/10/18 at 09:00 Tacrolimus (Prograf) 2 mg QHS PO Last administered on 12/12/18 21:37; Admin Dose 2 MG; Start 12/09/18 at 21:00 Diagnostic Test (Pha) (Accu-Chek) 1 ea 02 XX Last administered on 12/12/18 02:14; Admin Dose 1 EA; Start 12/10/18 at 02:00 Insulin Aspart (Novolog Insulin Pen) NOVOLOG *MILD* ALGORITHM WITH MEALS BEDT JÚNIOR SC Last administered on 12/13/18 08:31; Admin Dose 2 UNIT; Start 12/09/18 at 21:00 Ondansetron HCl (Zofran Inj) 4 mg Q6H PRN IV NAUSEA/VOMITING Last administered on 12/09/18 23:00; Admin Dose 4 MG; Start 12/09/18 at 18:30 Acetaminophen (Tylenol Tab) 650 mg Q6H PRN PO .PAIN 1-3 OR TEMP Last adm inistered on 12/09/18 22:14; Admin Dose 650 MG; Start 12/09/18 at 18:30 Docusate Sodium (Colace) 100 mg Q12H PRN PO .CONSTIPATION; Start 12/09/18 at 18:30 Bisacodyl (Dulcolax) 5 mg DAILY PRN PO .CONSTIPATION; Start 12/09/18 at 18:30 Famotidine (Pepcid) 20 mg DAILY PO Last administered on 12/13/18 09:08; Admin Dose 20 MG; Start 12/09/18 at 21:00 Heparin Sodium (Porcine) (Heparin (5000 Units/1ml)) 5,000 unit Q12 SC ; Start 12/09/18 at 21:00 Sodium Chloride 1,000 ml @ 50 mls/hr Q20H IV Last administered on 12/11/18 09:57; Admin Dose 75 MLS/HR; Start 12/09/18 at 18:30 Miscellaneous Information 1 ea NOTE XX ; Start 12/09/18 at 18:30 Glucose (Glutose) 15 gm Q15M PRN PO DECREASED GLUCOSE; Start 12/09/18 at 18:30 Glucose (Glutose) 22.5 gm Q15M PRN PO DECREASED GLUCOSE; Start 12/09/18 at 18:30 Dextrose (D50w Syringe) 25 ml Q15M PRN IV DECREASED GLUCOSE; Start 12/09/18 at 18:30 Dextrose (D50w Syringe) 50 ml Q15M PRN IV DECREASED GLUCOSE; Start 12/09/18 at 18:30 Glucagon (Glucagen) 1 mg Q15M PRN IM DECREASED GLUCOSE; Start 12/09/18 at 18:30 Glucose (Glutose) 15 gm Q15M PRN BUCCAL DECREASED GLUCOSE; Start 12/09/18 at 18:30 Hydralazine HCl (Apresoline) 20 mg Q4 PRN IV SBP > 160 Last administered on 12/09/18 21:32; Admin Dose 20 MG; Start 12/09/18 at 21:00 Clonidine (Catapres) 0.1 mg Q6H PRN PO SBP> 160 Last administered on 12/09/18 22:14; Admin Dose 0.1 MG; Start 12/09/18 at 21:00 Amlodipine Besylate (Norvasc) 10 mg DAILY PO Last administered on 12/13/18 09:09; Admin Dose 10 MG; Start 12/09/18 at 21:00 Zolpidem Tartrate (Ambien) 5 mg HS PRN PO INSOMNIA; Start 12/09/18 at 23:30 Piperacillin Sod/ Tazobactam Sod 50 ml @ 100 mls/hr Q8 IVPB Last administered on 12/13/18 06:16; Admin Dose 100 MLS/HR; Start 12/10/18 at 14:00 Acetaminophen/ Hydrocodone Bitart ([place] (10/325)) 1 tab Q6H PRN PO MODERATE PAIN LEVEL 4-6 Last administered on 12/13/18 06:08; Admin Dose 1 TAB; Start 12/10/18 at 19:00 Clonidine (Catapres) 0.1 mg BID PO Last administered on 12/13/18 09:09; Admin Dose 0.1 MG; Start 12/10/18 at 21:00 Hydralazine HCl (Apresoline) 25 mg Q8 PO Last administered on 12/13/18 06:07; Admin Dose 25 MG; Start 12/10/18 at 22:00 Tamsulosin HCl (Flomax) 0.4 mg HS PO Last administered on 12/12/18 21:36; Admin Dose 0.4 MG; Start 12/10/18 at 21:00 Morphine Sulfate (morphine) 2 mg Q4H PRN IV .SEVERE PAIN 7-10; Start 12/11/18 at 11:22 Insulin Human NPH (Humulin N) 4 unit DAILY@0900 SC Last administered on 12/13/18 08:31; Admin Dose 4 UNIT; Start 12/12/18 at 09:00 Insulin Aspart (Novolog Insulin Pen) 3 unit WITH MEALS SC Last administered on 12/13/18 08:31; Admin Dose 3 UNIT; Start 12/12/18 at 18:00 Insulin Glargine (Lantus) 8 units DAILY@2000 SC Last administered on 12/12/18 22:09; Admin Dose 8 UNITS; Start 12/12/18 at 20:00 Tacrolimus (Prograf) 2 mg QAM PO Last administered on 12/13/18 09:09; Admin Dose 2 MG; Start 12/13/18 at 09:00 ABDELRAHMAN KNOTT Dec 13, 2018 11:11
--- NOTE | 2018-12-13 11:29 | CONS ---
Assessment/Plan Assessment/Plan Hospital Course (Demo Recall) - Progressive swelling of distal aspect of right ring finger with x-ray showing further of erosion and lucency involving the distal aspect of the distal phalanx of the right ring finger suspicious for osteomyelitis with improved but slight associated soft tissue swelling - Hx OM of R 4th digit: swelling with new erosive changes and osteopenia of the underlying R 4th distal phalanx, suggestive of osteomyelitis; wound culture grew Serratia on 03/18/18 and Serratia + CoNS (likely colonizer) on 04/04/18 ; Pt declined amputation. ESR 39 on 03/18/2018. S/p Levaquin x 6 weeks - Bacteremia d/t S. aureus 12/09/2018, repeat blood cx 12/12/18 NGTD - MRSA and K. pneumoniae in urine cx 12/09/2018 - UA was neg for pyuria - Hx mild subtle increased activity within the upper aspect of LUE, nonspecific, on WBC tagged scan on 04/05/2018 - Hx OM of R 3rd fingertip (XR showed periosteal reaction at the tip of R 3rd distal phalanx, suspicious for OM, MRI showed cellulitis of distal R 4th phalanx, without OM) and L 2nd fingertip (XR showed cortical irregularity at the tuft of L 2nd distal phalanx with overlying soft tissue defect, suggesting early OM, MRI showed OM at L 2nd distal phalanx with, cellulitis about L 2nd distal phalanx without drainable fluid collection.) - Hx OM of R 2nd finger s/p amputation at proximal phalanx neck, and h/o OM of L 3rd finger s/p amputation at middle and distal phalanges - DM - Hgb A1c 10.5% - Hx Juan's esophagus and gastritis s/p EGD on 08/12/2017. No H. pylori on Bx - Hx ESRD, was on HD - S/p renal transplant in 2009 (on tacrolimus, mycophenolate and prednisone), chronic renal insufficiency at baseline - BLE atherosclerosis - Seen by Vascular Surgery during last admit - Onychomycosis, tinea pedis - Seen by [facility] during last admit - Rheumatoid arthritis - Chronic HCV infection - HTN - Dyslipidemia - Hx polysubstance and IV drug use. - Anemia of chronic disease with h/o pernicious anemia - Hx hyperparathyroidism - Thrombosed graft of LUE Recommendations: - Hold off vancomycin - Start unasyn - ordered - Discontinue zosyn - ordered - F/u repeat blood cultures 12/12/18 (NGTD) - Consider vasc surgery eval - Consider MRI - ESR serially Management d/w patient, and with Dr. Olmstead Thank you Consultation Date/Type/Reason Admit Date/Time Dec 09, 2018 at 14:30 Initial Consult Date 12/10/18 Type of Consult ID Requesting Provider: HARVINDER BLOOD MD Date/Time of Note DATE: 12/13/18 TIME: 11:28 24 HR Interval Summary Free Text/Dictation Patient states "jorge glaser" and shows me his wrapped right 3rd finger and states "I can't see it because the dressing is there." Remains afebrile, no acute issues reported by nursing. Exam/Review of Systems Exam Vitals Vital Signs Date Temp Pulse Resp B/P (MAP) Pulse Ox O2 O2 Flow FiO2 Time Delivery Rate 12/13/18 63 08:01 12/13/18 98.0 18 127/75 98 07:52 (92) 12/13/18 Nasal 2.0 01:59 Cannula Intake and Output 12/12/18 12/12/18 12/13/18 1414:59 22:59 06:59 IntakeIntake Total 960 ml 350 ml OutputOutput Total 225 ml 900 ml 200 ml BalanceBalance -225 ml 60 ml 150 ml Allergies Coded Allergies magnesium (Unverified Allergy, Intermediate, 12/09/18) NUMBNESS AND HOT FUSHES Exam Constitutional: alert, oriented, well developed, frail, other (thin, cachectic) Psych: no complaints, nl mood/affect Head: normocephalic, atraumatic ENMT: nl external ears & nose, nl nasal mucosa & septum Neck: supple Respiratory: clear to auscultation, normal air movement Cardiovascular: regular rate and rhythm, nl pulses; No edema Gastrointestinal: soft, non-tender Musculoskeletal: other (LUE AVF graft with no TTP, no bruit, no thrill) Extremities: normal pulses, other (partial amputation of R 2nd and 3rd fingers and L 2nd and 3rd fingers; R middle finger is covered with a cdi kerlix gauze; R 3rd and 4th fingers are swollen); No edema 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: nl mental status, nl speech, nl strength Skin: nl turgor Results Result Diagram: 12/12/18 0537 12/12/18 0537 Results 24hrs Laboratory Tests Test 12/12/18 12:30 12/12/18 13:12 12/12/18 17:08 12/12/18 21:40 Bedside Glucose 66 L 69 L 211 174 Test 12/13/18 08:21 Bedside Glucose 189 Medications Medication Current Medications Prednisone (Prednisone) 5 mg DAILY PO Last administered on 12/13/18 09:08; Admin Dose 5 MG; Start 12/10/18 at 09:00 Tacrolimus (Prograf) 2 mg QHS PO Last administered on 12/12/18 21:37; Admin Dose 2 MG; Start 12/09/18 at 21:00 Diagnostic Test (Pha) (Accu-Chek) 1 ea 02 XX Last administered on 12/12/18 02:14; Admin Dose 1 EA; Start 12/10/18 at 02:00 Insulin Aspart (Novolog Insulin Pen) NOVOLOG *MILD* ALGORITHM WITH MEALS BEDTIME SC Last administered on 12/13/18 08:31; Admin Dose 2 UNIT; Start 12/09/18 at 21:00 Ondansetron HCl (Zofran Inj) 4 mg Q6H PRN IV NAUSEA/VOMITING Last administered on 12/09/18 23:00; Admin Dose 4 MG; Start 12/09/18 at 18:30 Acetaminophen (Tylenol Tab) 650 mg Q6H PRN PO .PAIN 1-3 OR TEMP Last administered on 12/09/18 22:14; Admin Dose 650 MG; Start 12/09/18 at 18:30 Docusate Sodium (Colace) 100 mg Q12H PRN PO .CONSTIPATION; Start 12/09/18 at 18:30 Bisacodyl (Dulcolax) 5 mg DAILY PRN PO .CONSTIPATION; Start 12/09/18 at 18:30 Famotidine (Pepcid) 20 mg DAILY PO Last administered on 12/13/18 09:08; Admin Dose 20 MG; Start 12/09/18 at 21:00 Heparin Sodium (Porcine) (Heparin (5000 Units/1ml)) 5,000 unit Q12 SC ; Start 12/09/18 at 21:00 Sodium Chloride 1,000 ml @ 50 mls/hr Q20H IV Last administered on 12/11/18 09:57; Admin Dose 75 MLS/HR; Start 12/09/18 at 18:30 Miscellaneous Information 1 ea NOTE XX ; Start 12/09/18 at 18:30 Glucose (Glutose) 15 gm Q15M PRN PO DECREASED GLUCOSE; Start 12/09/18 at 18:30 Glucose (Glutose) 22.5 gm Q15M PRN PO DECREASED GLUCOSE; Start 12/09/18 at 18:30 Dextrose (D50w Syringe) 25 ml Q15M PRN IV DECREASED GLUCOSE; Start 12/09/18 at 18:30 Dextrose (D50w Syringe) 50 ml Q15M PRN IV DECREASED GLUCOSE; Start 12/09/18 at 18:30 Glucagon (Glucagen) 1 mg Q15M PRN IM DECREASED GLUCOSE; Start 12/09/18 at 18:30 Glucose (Glutose) 15 gm Q15M PRN BUCCAL DECREASED GLUCOSE; Start 12/09/18 at 18:30 Hydralazine HCl (Apresoline) 20 mg Q4 PRN IV SBP > 160 Last administered on 12/09/18 21:32; Admin Dose 20 MG; Start 12/09/18 at 21:00 Clonidine (Catapres) 0.1 mg Q6H PRN PO SBP> 160 Last administered on 12/09/18 22:14; Admin Dose 0.1 MG; Start 12/09/18 at 21:00 Amlodipine Besylate (Norvasc) 10 mg DAILY PO Last administered on 12/13/18 09:09; Admin Dose 10 MG; Start 12/09/18 at 21:00 Zolpidem Tartrate (Ambien) 5 mg HS PRN PO INSOMNIA; Start 12/09/18 at 23:30 Piperacillin Sod/ Tazobactam Sod 50 ml @ 100 mls/hr Q8 IVPB Last administered on 12/13/18 06:16; Admin Dose 100 MLS/HR; Start 12/10/18 at 14:00 Acetaminophen/ Hydrocodone Bitart ([place] (10/325)) 1 tab Q6H PRN PO MODERATE PAIN LEVEL 4-6 Last administered on 12/13/18 06:08; Admin Dose 1 TAB; Start 12/10/18 at 19:00 Clonidine (Catapres) 0.1 mg BID PO Last administered on 12/13/18 09:09; Admin Dose 0.1 MG; Start 12/10/18 at 21:00 Hydralazine HCl (Apresoline) 25 mg Q8 PO Last administered on 12/13/18 06:07; Admin Dose 25 MG; Start 12/10/18 at 22:00 Tamsulosin HCl (Flomax) 0.4 mg HS PO Last administered on 12/12/18 21:36; Admin Dose 0.4 MG; Start 12/10/18 at 21:00 Morphine Sulfate (morphine) 2 mg Q4H PRN IV .SEVERE PAIN 7-10; Start 12/11/18 at 11:22 Insulin Human NPH (Humulin N) 4 unit DAILY@0900 SC Last administered on 12/13/18 08:31; Admin Dose 4 UNIT; Start 12/12/18 at 09:00 Insulin Aspart (Novolog Insulin Pen) 3 unit WITH MEALS SC Last administered on 12/13/18 08:31; Admin Dose 3 UNIT; Start 12/12/18 at 18:00 Insulin Glargine (Lantus) 8 units DAILY@2000 SC Last administered on 12/12/18 22:09; Admin Dose 8 UNITS; Start 12/12/18 at 20:00 Tacrolimus (Prograf) 2 mg QAM PO Last administered on 12/13/18 09:09; Admin Dose 2 MG; Start 12/13/18 at 09:00 MAHAD MAHARAJ NP Dec 13, 2018 11:29
--- NOTE | 2018-12-13 12:04 | PN ---
Date/Time of Note Date/Time of Note DATE: 12/13/18 TIME: 12:03 Assessment/Plan VTE Prophylaxis Risk score (from Ns)>0 risk: 2 SCD applied (from Ns): Yes Pharmacological prophylaxis: LMWH Lines/Catheters [facility] [place] Assessment/Plan Hospital Course -Severe sepsis with Staphylococcus bacteremia, continue antibiotics per ID. Dr. Olmstead is following in infection disease consultation. -Right middle finger cellulitis with gangrene. Dr. Castro is asked to see patient in orthopedic surgery consultation. -Hyperkalemia -Renal failure, patient baseline creatinine is 1.5. Continue IV fluids. Dr. Meyers is following in nephrology consultation. -Status post kidney transplant in 2009. -Poorly controlled diabetes mellitus type 2, hemoglobin A1c is 10.5. Continue Lantus and NovoLog. Dr. Almonte is following in endocrinology consultation. -Hypertension. -History of right fourth finger gangrene -History of Juan's esophagus and severe gastritis. -Chronic HCV infection -Rheumatoid arthritis -History of polysubstance and IV drug use -Poor medical compliance with his diabetic regimen Result Diagram: 12/12/18 0537 12/12/18 0537 Results 24hrs Laboratory Tests Test 12/12/18 12:30 12/12/18 13:12 12/12/18 17:08 12/12/18 21:40 Bedside Glucose 66 L 69 L 211 174 Test 12/13/18 08:21 Bedside Glucose 189 Subjective 24 Hr Interval Summary Free Text/Dictation Patient has no complaints Exam/Review of Systems Exam Vitals Vital Signs Date Temp Pulse Resp B/P (MAP) Pulse Ox O2 O2 Flow FiO2 Time Delivery Rate 12/13/18 98.0 70 18 106/66 98 11:51 (79) 12/13/18 Nasal 2.0 01:59 Cannula Intake and Output 12/12/18 12/12/18 12/13/18 1515:00 23:00 07:00 IntakeIntake Total 960 ml 350 ml OutputOutput Total 225 ml 900 ml 200 ml BalanceBalance -225 ml 60 ml 150 ml Constitutional: well developed Head: normocephalic, atraumatic Neck: supple Respiratory: clear to auscultation Cardiovascular: regular rate and rhythm Gastrointestinal: soft, non-tender Extremities: normal pulses Results Results 24hrs Laboratory Tests Test 12/12/18 12:30 2/9/19 13:12 12/12/18 17:08 12/12/18 21:40 Bedside Glucose 66 L 69 L 211 174 Test 12/13/18 08:21 Bedside Glucose 189 Medications Medication Current Medications Prednisone (Prednisone) 5 mg DAILY PO Last administered on 12/13/18 09:08; Admin Dose 5 MG; Start 12/10/18 at 09:00 Tacrolimus (Prograf) 2 mg QHS PO Last administered on 12/12/18 21:37; Admin D ose 2 MG; Start 12/09/18 at 21:00 Diagnostic Test (Pha) (Accu-Chek) 1 ea 02 XX Last administered on 12/12/18 02:14; Admin Dose 1 EA; Start 12/10/18 at 02:00 Insulin Aspart (Novolog Insulin Pen) NOVOLOG *MILD* ALGORITHM WITH MEALS BEDTIME SC Last administered on 12/13/18 08:31; Admin Dose 2 UNIT; Start 12/09/18 at 21:00 Ondansetron HCl (Zofran Inj) 4 mg Q6H PRN IV NAUSEA/VOMITING Last administered on 12/09/18 23:00; Admin Dose 4 MG; Start 12/09/18 at 18:30 Acetaminophen (Tylenol Tab) 650 mg Q6H PRN PO .PAIN 1-3 OR TEMP Last administered on 12/09/18 22:14; Admin Dose 650 MG; Start 12/09/18 at 18:30 Docusate Sodium (Colace) 100 mg Q12H PRN PO .CONSTIPATION; Start 12/09/18 at 18:30 Bisacodyl (Dulcolax) 5 mg DAILY PRN PO .CONSTIPATION; Start 12/09/18 at 18:30 Famotidine (Pepcid) 20 mg DAILY PO Last administered on 12/13/18 09:08; Admin Dose 20 MG; Start 12/09/18 at 21:00 Heparin Sodium (Porcine) (Heparin (5000 Units/1ml)) 5,000 unit Q12 SC ; Start 12/09/18 at 21:00 Sodium Chloride 1,000 ml @ 50 mls/hr Q20H IV Last administered on 12/11/18 09:57; Admin Dose 75 MLS/HR; Start 12/09/18 at 18:30 Miscellaneous Information 1 ea NOTE XX ; Start 12/09/18 at 18:30 Glucose (Glutose) 15 gm Q15M PRN PO DECREASED GLUCOSE; Start 12/09/18 at 18:30 Glucose (Glutose) 22.5 gm Q15M PRN PO DECREASED GLUCOSE; Start 12/09/18 at 18:30 Dextrose (D50w Syringe) 25 ml Q15M PRN IV DECREASED GLUCOSE; Start 12/09/18 at 18:30 Dextrose (D50w Syringe) 50 ml Q15M PRN IV DECREASED GLUCOSE; Start 12/09/18 at 18:30 Glucagon (Glucagen) 1 mg Q15M PRN IM DECREASED GLUCOSE; Start 12/09/18 at 18:30 Glucose (Glutose) 15 gm Q15M PRN BUCCAL DECREASED GLUCOSE; Start 12/09/18 at 18:30 Hydralazine HCl (Apresoline) 20 mg Q4 PRN IV SBP > 160 Last administered on 12/09/18at 21:32; Admin Dose 20 MG; Start 12/09/18 at 21:00 Clonidine (Catapres) 0.1 mg Q6H PRN PO SBP> 160 Last administered on 12/09/18 22:14; Admin Dose 0.1 MG; Start 12/09/18 at 21:00 Amlodipine Besylate (Norvasc) 10 mg DAILY PO Last administered on 12/13/18 09:09; Admin Dose 10 MG; Start 12/09/18 at 21:00 Zolpidem Tartrate (Ambien) 5 mg HS PRN PO INSOMNIA; Start 12/09/18 at 23:30 Piperacillin Sod/ Tazobactam Sod 50 ml @ 100 mls/hr Q8 IVPB Last administered on 12/13/18at 06:16; Admin Dose 100 MLS/HR; Start 12/10/18 at 14:00 Acetaminophen/ Hydrocodone Bitart ([place] (10/325)) 1 tab Q6H PRN PO MODERATE PAIN LEVEL 4-6 Last administered on 12/13/18 06:08; Admin Dose 1 TAB; Start 12/10/18 at 19:00 Clonidine (Catapres) 0.1 mg BID PO Last administered on 12/13/18 09:09; Admin Dose 0.1 MG; Start 12/10/18 at 21:00 Hydralazine HCl (Apresoline) 25 mg Q8 PO Last administered on 12/13/18 06:07; Admin Dose 25 MG; Start 12/10/18 at 22:00 Tamsulosin HCl (Flomax) 0.4 mg HS PO Last administered on 12/12/18 21:36; Admin Dose 0.4 MG; Start 12/10/18 at 21:00 Morphine Sulfate (morphine) 2 mg Q4H PRN IV .SEVERE PAIN 7-10; Start 12/11/18 at 11:22 Insulin Human NPH (Humulin N) 4 unit DAILY@0900 SC Last administered on 12/13/18 08:31; Admin Dose 4 UNIT; Start 12/12/18 at 09:00 Insulin Aspart (Novolog Insulin Pen) 3 unit WITH MEALS SC Last administered on 12/13/18 08:31; Admin Dose 3 UNIT; Start 12/12/18 at 18:00 Insulin Glargine (Lantus) 8 units DAILY@2000 SC Last administered on 12/12/18 22:09; Admin Dose 8 UNITS; Start 12/12/18 at 20:00 Tacrolimus (Prograf) 2 mg QAM PO Last administered on 12/13/18 09:09; Admin Dose 2 MG; Start 12/13/18 at 09:00 ROJAS BYRD Dec 13, 2018 12:04
--- NOTE | 2018-12-13 12:11 | CONS ---
Assessment/Plan Assessment/Plan Hospital Course (Demo Recall) EMR reviewed case d/w rocket motor tester Unasyn x 6 weeks Consultation Date/Type/Reason Admit Date/Time Dec 09, 2018 at 14:30 Initial Consult Date Type of Consult id Requesting Provider: HARVINDER BLOOD MD Date/Time of Note DATE: 12/13/18 TIME: 12:10 Exam/Review of Systems Exam Vitals Vital Signs Date Temp Pulse Resp B/P (MAP) Pulse Ox O2 O2 Flow FiO2 Time Delivery Rate 12/13/18 98.0 70 18 106/66 98 11:51 (79) 12/13/18 Nasal 2.0 01:59 Cannula Intake and Output 12/12/18 12/12/18 12/13/18 1515:00 23:00 07:00 IntakeIntake Total 960 ml 350 ml OutputOutput Total 225 ml 900 ml 200 ml BalanceBalance -225 ml 60 ml 150 ml Results Result Diagram: 12/12/18 0537 12/12/18 0537 Results 24hrs Laboratory Tests Test 12/12/18 12:30 12/12/18 13:12 12/12/18 17:08 12/12/18 21:40 Bedside Glucose 66 L 69 L 211 174 Test 12/13/18 08:21 Bedside Glucose 189 Medications Medication Current Medications Prednisone (Prednisone) 5 mg DAILY PO Last administered on 12/13/18at 09:08; Admin Dose 5 MG; Start 12/10/18 at 09:00 Tacrolimus (Prograf) 2 mg QHS PO Last administered on 12/12/18at 21:37; Admin Dose 2 MG; Start 12/09/18 at 21:00 Diagnostic Test (Pha) (Accu-Chek) 1 ea 02 XX Last administered on 12/12/18at 02:14; Admin Dose 1 EA; Start 12/10/18 at 02:00 Insulin Aspart (Novolog Insulin Pen) NOVOLOG *MILD* ALGORITHM WITH MEALS BEDTIME SC Last administered on 12/13/18at 08:31; Admin Dose 2 UNIT; Start 12/09/18 at 21:00 Ondansetron HCl (Zofran Inj) 4 mg Q6H PRN IV NAUSEA/VOMITING Last administered on 12/09/18at 23:00; Admin Dose 4 MG; Start 12/09/18 at 18:30 Acetaminophen (Tylenol Tab) 650 mg Q6H PRN PO .PAIN 1-3 OR TEMP Last administered on 12/09/18at 22:14; Admin Dose 650 MG; Start 12/09/18 at 18:30 Docusate Sodium (Colace) 100 mg Q12H PRN PO .CONSTIPATION; Start 12/09/18 at 18:30 Bisacodyl (Dulcolax) 5 mg DAILY PRN PO .CONSTIPATION; Start 12/09/18 at 18:30 Famotidine (Pepcid) 20 mg DAILY PO Last administered on 12/13/18at 09:08; Admin Dose 20 MG; Start 12/09/18 at 21:00 Heparin Sodium (Porcine) (Heparin (5000 Units/1ml)) 5,000 unit Q12 SC ; Start 12/09/18 at 21:00 Sodium Chloride 1,000 ml @ 50 mls/hr Q20H IV Last administered on 12/11/18at 09:57; Admin Dose 75 MLS/HR; Start 12/09/18 at 18:30 Miscellaneous Information 1 ea NOTE XX ; Start 12/09/18 at 18:30 Glucose (Glutose) 15 gm Q15M PRN PO DECREASED GLUCOSE; Start 12/09/18 at 18:30 Glucose (Glutose) 22.5 gm Q15M PRN PO DECREASED GLUCOSE; Start 12/09/18 at 18:30 Dextrose (D50w Syringe) 25 ml Q15M PRN IV DECREASED GLUCOSE; Start 12/09/18 at 18:30 Dextrose (D50w Syringe) 50 ml Q15M PRN IV DECREASED GLUCOSE; Start 12/09/18 at 18:30 Glucagon (Glucagen) 1 mg Q15M PRN IM DECREASED GLUCOSE; Start 12/09/18 at 18:30 Glucose (Glutose) 15 gm Q15M PRN BUCCAL DECREASED GLUCOSE; Start 12/09/18 at 18:30 Hydralazine HCl (Apresoline) 20 mg Q4 PRN IV SBP > 160 Last administered on 12/09/18at 21:32; Admin Dose 20 MG; Start 12/09/18 at 21:00 Clonidine (Catapres) 0.1 mg Q6H PRN PO SBP> 160 Last administered on 12/09/18at 22:14; Admin Dose 0.1 MG; Start 12/09/18 at 21:00 Amlodipine Besylate (Norvasc) 10 mg DAILY PO Last administered on 12/13/18 09:09; Admin Dose 10 MG; Start 12/09/18 at 21:00 Zolpidem Tartrate (Ambien) 5 mg HS PRN PO INSOMNIA; Start 12/09/18 at 23:30 Piperacillin Sod/ Tazobactam Sod 50 ml @ 100 mls/hr Q8 IVPB Last administered on 12/13/18 06:16; Admin Dose 100 MLS/HR; Start 12/10/18 at 14:00 Acetaminophen/ Hydrocodone Bitart ([place] ()) 1 tab Q6H PRN PO MODERATE PAIN LEVEL 4-6 Last administered on 12/13/18 06:08; Admin Dose 1 TAB; Start 12/10/18 at 19:00 Clonidine (Catapres) 0.1 mg BID PO Last administered on 12/13/18 09:09; Admin Dose 0.1 MG; Start 12/10/18 at 21:00 Hydralazine HCl (Apresoline) 25 mg Q8 PO Last administered on 12/13/18 06:07; Admin Dose 25 MG; Start 12/10/18 at 22:00 Tamsulosin HCl (Flomax) 0.4 mg HS PO Last administered on 12/12/18 21:36; Admin Dose 0.4 MG; Start 12/10/18 at 21:00 Morphine Sulfate (morphine) 2 mg Q4H PRN IV .SEVERE PAIN 7-10; Start 12/11/18 at 11:22 Insulin Human NPH (Humulin N) 4 unit DAILY@0900 SC Last administered on 12/13/18 08:31; Admin Dose 4 UNIT; Start 12/12/18 at 09:00 Insulin Aspart (Novolog Insulin Pen) 3 unit WITH MEALS SC Last administered on 12/13/18 08:31; Admin Dose 3 UNIT; Start 12/12/18 at 18:00 Insulin Glargine (Lantus) 8 units DAILY@2000 SC Last administered on 12/12/18 22:09; Admin Dose 8 UNITS; Start 12/12/18 at 20:00 Tacrolimus (Prograf) 2 mg QAM PO Last administered on 12/13/18 09:09; Admin Dose 2 MG; Start 2/10/19 at 09:00 PARAMJIT COTTRELL MD Dec 13, 2018 12:11
--- NOTE | 2018-12-13 12:13 | NUR ---
Blood glucose 59. Patient stated he felt shaky and weak. He refused apple juice but wanted 1 can of regular cola (240ml).1 can of cola given. He started feeling better 5 minutes after he was drinking the soda. He said there is no more shakiness.
--- NOTE | 2018-12-13 12:29 | NUR ---
Blood glucose went up to 112 at this time. Patient denies shakiness or weakness and is talking with the at bedside. Continue to monitor.
--- NOTE | 2018-12-13 13:07 | CONS ---
Assessment/Plan Assessment/Plan Hospital Course (Demo Recall) Type 2 DM -Prelunch hypoglycemia which started prior to initiation of NPH -will decrease Novolog to 2 units with breakfast and also adjust novolog correction scale to start correction at FS >180 -continue Novolog 3 units with lunch and dinner -continue Lantus 8 units at bedtime -continue NPH 4 units daily to cover prednisone -mild dose Novolog correction with meals and bedtime adjusted to start when FS >180 -check FS AC and HS Consultation Date/Type/Reason Admit Date/Time Dec 09, 2018 at 14:30 Initial Consult Date 12/10/18 Requesting Provider: HARVINDER BLOOD MD Date/Time of Note DATE: 12/13/18 TIME: 13:03 24 HR Interval Summary Free Text/Dictation Patient seen and examined at bedside. prelunch hypoglycemia noted again today. He remains on prednisone 5mg po daily. Exam/Review of Systems Exam Vitals Vital Signs Date Temp Pulse Resp B/P (MAP) Pulse Ox O2 O2 Flow FiO2 Time Delivery Rate 12/13/18 98.0 70 18 106/66 98 11:51 (79) 12/13/18 Nasal 2.0 01:59 Cannula Intake and Output 12/12/18 12/12/18 12/13/18 1515:00 23:00 07:00 IntakeIntake Total 960 ml 350 ml OutputOutput Total 225 ml 900 ml 200 ml BalanceBalance -225 ml 60 ml 150 ml Exam General: Comfortable in appearance, not in acute distress. Skin appropriate for ethnicity Eye: Extraocular movements are intact, Normal conjunctiva. HENT: Normocephalic, atraumatic. Respiratory: Respirations are non-labored, Symmetrical chest wall expansion. Cardiovascular: Good peripheral pulse. No LE edema Gastrointestinal: Soft, Non-tender, Non-distended.. Integumentary: Warm to touch. Neurologic: Alert, Oriented. Cognition and Speech: Speech clear and coherent, Functional cognition intact. Psychiatric: Cooperative, Appropriate mood & affect. Results Result Diagram: 12/12/18 0537 12/12/18 0537 Results 24hrs Laboratory Tests Test 12/12/18 13:12 12/12/18 17:08 12/12/18 21:40 12/13/18 08:21 Bedside Glucose 69 L 211 174 189 Test 12/13/18 12:13 12/13/18 12:27 12/13/18 12:45 12/13/18 12:55 Bedside Glucose 59 L 112 116 119 Medications Medication Current Medications Prednisone (Prednisone) 5 mg DAILY PO Last administered on 12/13/18 09:08; Admin Dose 5 MG; Start 12/10/18 at 09:00 Tacrolimus (Prograf) 2 mg QHS PO Last administered on 12/12/18 21:37; Admin Dose 2 MG; Start 12/09/18 at 21:00 Diagnostic Test (Pha) (Accu-Chek) 1 ea 02 XX Last administered on 12/12/18 02:14; Admin Dose 1 EA; Start 12/10/18 at 02:00 Insulin Aspart (Novolog Insulin Pen) NOVOLOG *MILD* ALGORITHM WITH MEALS BEDTIME SC Last administered on 12/13/18 08:31; Admin Dose 2 UNIT; Start 12/09/18 at 21:00 Ondansetron HCl (Zofran Inj) 4 mg Q6H PRN IV NAUSEA/VOMITING Last administered on 12/09/18 23:00; Admin Dose 4 MG; Start 12/09/18 at 18:30 Acetaminophen (Tylenol Tab) 650 mg Q6H PRN PO .PAIN 1-3 OR TEMP Last administered on 12/09/18 22:14; Admin Dose 650 MG; Start 12/09/18 at 18:30 Docusate Sodium (Colace) 100 mg Q12H PRN PO .CONSTIPATION; Start 12/09/18 at 18:30 Bisacodyl (Dulcolax) 5 mg DAILY PRN PO .CONSTIPATION; Start 12/09/18 at 18:30 Famotidine (Pepcid) 20 mg DAILY PO Last administered on 12/13/18 09:08; Admin Dose 20 MG; Start 12/09/18 at 21:00 Heparin Sodium (Porcine) (Heparin (5000 Units/1ml)) 5,000 unit Q12 SC ; Start 12/09/18 at 21:00 Sodium Chloride 1,000 ml @ 50 mls/hr Q20H IV Last administered on 12/11/18 09:57; Admin Dose 75 MLS/HR; Start 12/09/18 at 18:30 Miscellaneous Information 1 ea NOTE XX ; Start 12/09/18 at 18:30 Glucose (Glutose) 15 gm Q15M PRN PO DECREASED GLUCOSE; Start 12/09/18 at 18:30 Glucose (Glutose) 22.5 gm Q15M PRN PO DECREASED GLUCOSE; Start 12/09/18 at 18:30 Dextrose (D50w Syringe) 25 ml Q15M PRN IV DECREASED GLUCOSE; Start 12/09/18 at 18:30 Dextrose (D50w Syringe) 50 ml Q15M PRN IV DECREASED GLUCOSE; Start 12/09/18 at 18:30 Glucagon (Glucagen) 1 mg Q15M PRN IM DECREASED GLUCOSE; Start 12/09/18 at 18:30 Glucose (Glutose) 15 gm Q15M PRN BUCCAL DECREASED GLUCOSE; Start 12/09/18 at 18:30 Hydralazine HCl (Apresoline) 20 mg Q4 PRN IV SBP > 160 Last administered on 12/09/18 21:32; Admin Dose 20 MG; Start 12/09/18 at 21:00 Clonidine (Catapres) 0.1 mg Q6H PRN PO SBP> 160 Last administered on 12/09/18 22:14; Admin Dose 0.1 MG; Start 12/09/18 at 21:00 Amlodipine Besylate (Norvasc) 10 mg DAILY PO Last administered on 12/13/18 09:09; Admin Dose 10 MG; Start 12/09/18 at 21:00 Zolpidem Tartrate (Ambien) 5 mg HS PRN PO INSOMNIA; Start 12/09/18 at 23:30 Acetaminophen/ Hydrocodone Bitart ([place] (10/325)) 1 tab Q6H PRN PO MODERATE PAIN LEVEL 4-6 Last administered on 12/13/18 06:08; Admin Dose 1 TAB; Start 12/10/18 at 19:00 Clonidine (Catapres) 0.1 mg BID PO Last administered on 12/13/18 09:09; Admin Dose 0.1 MG; Start 12/10/18 at 21:00 Hydralazine HCl (Apresoline) 25 mg Q8 PO Last administered on 12/13/18 06:07; Admin Dose 25 MG; Start 12/10/18 at 22:00 Tamsulosin HCl (Flomax) 0.4 mg HS PO Last administered on 12/12/18 21:36; Admin Dose 0.4 MG; Start 12/10/18 at 21:00 Morphine Sulfate (morphine) 2 mg Q4H PRN IV .SEVERE PAIN 7-10; Start 12/11/18 at 11:22 Insulin Human NPH (Humulin N) 4 unit DAILY@0900 SC Last administered on 12/13/18at 08:31; Admin Dose 4 UNIT; Start 12/12/18 at 09:00 Insulin Aspart (Novolog Insulin Pen) 3 unit WITH MEALS SC Last administered on 12/13/18at 08:31; Admin Dose 3 UNIT; Start 12/12/18 at 18:00 Insulin Glargine (Lantus) 8 units DAILY@2000 SC Last administered on 12/12/18at 22:09; Admin Dose 8 UNITS; Start 12/12/18 at 20:00 Tacrolimus (Prograf) 2 mg QAM PO Last administered on 12/13/18at 09:09; Admin Dose 2 MG; Start 12/13/18 at 09:00 Ampicillin Sodium/ Sulbactam Sodium 50 ml @ 100 mls/hr Q12 IVPB ; Start 12/13/18 at 13:00 LASHAWN CORTEZ MD Dec 13, 2018 13:07
[2018-12-13] MEDS: AMPICILLIN/SULB 1.5GM/NS (PMX) 50 ML IVPB SCH ×2 (14:10→21:00)
[2018-12-13] MEDS: SOD CHLORIDE 0.9% 1,000 ML IV SCH (14:58)
[2018-12-13] MEDS ORDERED: SODIUM POLYSTYRENE 15 GM KIT (POWDER + SORBITOL) PO ONE (17:00)
[2018-12-13] MEDS ORDERED: NA BICARBONATE 8.4% 50 ML SYG IV ONE (17:00)
--- NOTE | 2018-12-13 17:20 | NUR ---
pt adamantly refused PO kayexalate, Dr Fofana spoke with pt and he agreed to enema form but that is no longer available, Dr Fofana notified
[2018-12-13] MEDS ORDERED: STERILE IV SCH (17:30)
[2018-12-13] MEDS ORDERED: SODIUM BICARBONATE IV SCH (17:30)
[2018-12-13] MEDS: SODIUM BICARBONATE (IV ADD) 50 MEQ in DEXTROSE 5% 950 ML IV SCH (17:30)
--- NOTE | 2018-12-13 19:03 | CONS ---
Consult Date/Type/Reason Admit Date/Time Dec 09, 2018 at 14:30 Initial Consult Date 12/10/18 Type of Consultation: Urology Reason for Consultation High postvoid residual, urinary tract infection and hydronephrosis in the transplanted kidney. Requesting Provider: HARVINDER BLOOD MD Date/Time of Note DATE: 12/13/18 TIME: 19:00 Subjective The patient states he is comfortable and is voiding better. Objective Vitals Vital Signs Date Temp Pulse Resp B/P (MAP) Pulse Ox O2 O2 Flow FiO2 Time Delivery Rate 12/13/18 98.0 73 18 112/67 98 16:10 (82) 12/13/18 Nasal 2.0 01:59 Cannula Intake and Output 12/12/18 12/12/18 12/13/18 1515:00 23:00 07:00 IntakeIntake Total 960 ml 400 ml OutputOutput Total 225 ml 900 ml 200 ml BalanceBalance -225 ml 60 ml 200 ml Exam There is no suprapubic tenderness, the urine is clear. He is trying to double void to minimize the postvoid residual. Results/Medications Result Diagram: 12/12/18 0537 12/13/18 1539 Results 24 hrs Laboratory Tests Test 12/12/18 21:40 12/13/18 08:21 12/13/18 12:13 12/13/18 12:27 Bedside Glucose 174 189 59 L 112 Test 12/13/18 12:45 12/13/18 12:55 12/13/18 15:39 12/13/18 17:38 Bedside Glucose 116 119 206 Sodium Level 137 Potassium Level 5.8 H Chloride Level 112 H Carbon Dioxide Level 15 L Anion Gap 10 Blood Urea Nitrogen 45 H Creatinine 3.92 H Est Glomerular 16 L Filtrat Rate mL/min Glucose Level 164 # Calcium Level 9.8 Home Meds Reported Medications Sitagliptin* (Januvia*) 50 Mg Tablet, 50 MG PO DAILY, #30 TAB 12/09/18 Tacrolimus* (Tacrolimus*) 1 Mg Capsule, 3 MG PO QAM, CAP 12/09/18 Tacrolimus* (Tacrolimus*) 1 Mg Capsule, 2 MG PO QHS, CAP 12/09/18 Mycophenolate Sodium* (Mycophenolic Acid*) 180 Mg Tablet.dr, 540 MG PO Q12, TAB 12/09/18 Prednisone* (Prednisone*) 5 Mg Tab, 5 MG PO DAILY, TAB 12/09/18 Glipizide* (Glipizide*) 5 Mg Tablet, 5 MG PO AC BREAKFAST DINNER, TAB 12/09/18 Clonidine Hcl* (Clonidine Hcl*) 0.1 Mg Tab, 0.1 MG PO DAILY, TAB 12/09/18 Insulin Lispro (Humalog) 100 Unit/1 Ml Cartridge, 0 SQ SLIDING SCALE, EA INSURANECE NOT COVERED THIS INSULIN 09/23/18 Discontinued Reported Medications Atorvastatin Calcium (Atorvastatin Calcium) 10 Mg Tablet, 10 MG PO QHS, #30 TAB 09/23/18 Prednisone* (Prednisone*) 5 Mg Tab, 5 MG PO DAILY, TAB 09/23/18 Metoclopramide* (Reglan*) 10 Mg Tablet, 10 MG PO NEEDED, TAB 09/23/18 Glipizide* (Glipizide*) 5 Mg Tablet, 5 MG PO AC BREAKFAST DINNER, TAB 09/23/18 Sitagliptin* (Januvia*) 50 Mg Tablet, 50 MG PO DAILY, #30 TAB 09/23/18 Tacrolimus* (Tacrolimus*) 0.5 Mg Capsule, 2 MG PO Q12, CAP 09/23/18 Clonidine Hcl* (Clonidine Hcl*) 0.1 Mg Tab, 0.1 MG PO DAILY, TAB 09/23/18 Discontinued Scripts Ondansetron (Ondansetron Odt) 4 Mg Tab.rapdis, 4 MG PO Q6H PRN for NAUSEA AND/OR VOMITING, #10 TAB Prov:LIZ OCHOA MD 09/23/18 Aspirin (Aspirin) 81 Mg Chew, 81 MG PO DAILY for 30 Days, TAB Prov:LETI RODRIGUEZ 04/10/18 Mycophenolate Sodium* (Myfortic*) 180 Mg Tab, 540 MG PO BID for 30 Days, TAB Prov:LETI RODRIGUEZ 05/09/17 Medications Current Medications Prednisone (Prednisone) 5 mg DAILY PO Last administered on 12/13/18at 09:08; Admin Dose 5 MG; Start 12/10/18 at 09:00 Diagnostic Test (Pha) (Accu-Chek) 1 ea 02 XX Last administered on 12/12/18at 02:14; Admin Dose 1 EA; Start 12/10/18 at 02:00 Ondansetron HCl (Zofran Inj) 4 mg Q6H PRN IV NAUSEA/VOMITING Last administered on 12/09/18at 23:00; Admin Dose 4 MG; Start 12/09/18 at 18:30 Acetaminophen (Tylenol Tab) 650 mg Q6H PRN PO .PAIN 1-3 OR TEMP Last administered on 12/09/18at 22:14; Admin Dose 650 MG; Start 12/09/18 at 18:30 Docusate Sodium (Colace) 100 mg Q12H PRN PO .CONSTIPATION; Start 12/09/18 at 18:30 Bisacodyl (Dulcolax) 5 mg DAILY PRN PO .CONSTIPATION; Start 12/09/18 at 18:30 Famotidine (Pepcid) 20 mg DAILY PO Last administered on 12/13/18at 09:08; Admin Dose 20 MG; Start 12/09/18 at 21:00 Heparin Sodium (Porcine) (Heparin (5000 Units/1ml)) 5,000 unit Q12 SC ; Start 12/09/18 at 21:00 Miscellaneous Information 1 ea NOTE XX ; Start 12/09/18 at 18:30 Glucose (Glutose) 15 gm Q15M PRN PO DECREASED GLUCOSE; Start 12/09/18 at 18:30 Glucose (Glutose) 22.5 gm Q15M PRN PO DECREASED GLUCOSE; Start 12/09/18 at 18:30 Dextrose (D50w Syringe) 25 ml Q15M PRN IV DECREASED GLUCOSE; Start 12/09/18 at 18:30 Dextrose (D50w Syringe) 50 ml Q15M PRN IV DECREASED GLUCOSE; Start 12/09/18 at 18:30 Glucagon (Glucagen) 1 mg Q15M PRN IM DECREASED GLUCOSE; Start 12/09/18 at 18:30 Glucose (Glutose) 15 gm Q15M PRN BUCCAL DECREASED GLUCOSE; Start 12/09/18 at 18:30 Hydralazine HCl (Apresoline) 20 mg Q4 PRN IV SBP > 160 Last administered on 12/09/18at 21:32; Admin Dose 20 MG; Start 12/09/18 at 21:00 Clonidine (Catapres) 0.1 mg Q6H PRN PO SBP> 160 Last administered on 12/09/18at 22:14; Admin Dose 0.1 MG; Start 12/09/18 at 21:00 Amlodipine Besylate (Norvasc) 10 mg DAILY PO Last administered on 12/13/18 09:09; Admin Dose 10 MG; Start 12/09/18 at 21:00 Zolpidem Tartrate (Ambien) 5 mg HS PRN PO INSOMNIA; Start 12/09/18 at 23:30 Acetaminophen/ Hydrocodone Bitart ([place] (10/325)) 1 tab Q6H PRN PO MODERATE PAIN LEVEL 4-6 Last administered on 12/13/18 18:22; Admin Dose 1 TAB; Start 12/10/18 at 19:00 Clonidine (Catapres) 0.1 mg BID PO Last administered on 12/13/18 09:09; Admin Dose 0.1 MG; Start 12/10/18 at 21:00 Hydralazine HCl (Apresoline) 25 mg Q8 PO Last administered on 12/13/18 06:07; Admin Dose 25 MG; Start 12/10/18 at 22:00 Tamsulosin HCl (Flomax) 0.4 mg HS PO Last administered on 12/12/18 21:36; Admin Dose 0.4 MG; Start 12/10/18 at 21:00 Morphine Sulfate (morphine) 2 mg Q4H PRN IV .SEVERE PAIN 7-10; Start 12/11/18 at 11:22 Insulin Human NPH (Humulin N) 4 unit DAILY@0900 SC Last administered on 12/13/18 08:31; Admin Dose 4 UNIT; Start 12/12/18 at 09:00 Insulin Glargine (Lantus) 8 units DAILY@2000 SC Last administered on 12/12/18 22:09; Admin Dose 8 UNITS; Start 12/12/18 at 20:00 Tacrolimus (Prograf) 2 mg QAM PO Last administered on 12/13/18 09:09; Admin Dose 2 MG; Start 12/13/18 at 09:00 Ampicillin Sodium/ Sulbactam Sodium 50 ml @ 100 mls/hr Q12 IVPB Last administered on 12/13/18 14:10; Admin Dose 100 MLS/HR; Start 12/13/18 at 13:00 Insulin Aspart (Novolog Insulin Pen) 3 unit AC LUNCH DINNER SC Last administered on 12/13/18 17:46; Admin Dose 3 UNIT; Start 12/13/18 at 17:30 Insulin Aspart (Novolog Insulin Pen) NOVOLOG *MILD* ALGORITHM WITH MEALS BEDTIME SC Last administered on 12/13/18at 17:46; Admin Dose 1 UNIT; Start 12/13/18 at 18:00 Insulin Aspart (Novolog Insulin Pen) 2 unit AC BREAKFAST SC ; Start 12/14/18 at 07:00 Sodium Bicarbonate 50 meq/Dextrose 1,000 ml @ 40 mls/hr Q24H IV ; Start 12/13/18 at 17:30; Stop 12/14/18 at 18:29 Tacrolimus (Prograf) 1 mg QHS PO ; Start 12/13/18 at 21:00 Assessment/Plan Hospital Course (Demo Recall) This is a 58-year-old male with a past medical history of cadaveric kidney transplant in 2009, on Tacrolimus , prednisone 5 mg daily, rheumatoid arthritis, HCV infection, history of 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 The patient said that the symptoms started 4 days ago and the skin darkening progressed over the last couple of days. On admission the blood sugar was 500, sodium 134, potassium 6.1, bicarbonate 18, BUN of 48, creatinine of 3.21. The patient's baseline creatinine is 1.5 and that has been going gradually up since 2017. Patient states that he has an appointment at [facility] on December 11, 2018 to have biopsy of the kidney transplant because of the rising creatinine. He underwent a renal ultrasound and that showed that the transplanted kidney is a little a hydronephrotic. Therefore a urological consultation was requested. Patient states that he does have nocturia about 3 times a night and during the day he voids 4-5 times. He denies any dysuria. He states his urinary stream is strong and there is no gross hematuria. He denies any history of urinary tract infection. The patient does have severe atherosclerosis of his vessels. He does have peripheral vascular disease. He is creatinine has been going up gradually and he was supposed to go to [facility] to undergo biopsy of his transplanted kidney. The ultrasound that he had did show a small right hydronephrosis and that is not unusual to see that in the transplanted kidney especially when the bladder is full. The patient does void and the postvoid residual ranged between 64 and 98 mL. Plan is to continue to treat the infection and on encourage him to double urinate to help empty his bladder better. RAMILA GONZALEZ MD Dec 13, 2018 19:03
--- NOTE | 2018-12-13 20:40 | NUR ---
Nursing Note: Dr. Brigido Garcia. Per pharmacy, hospitalist can sign. Notified Dr. Mcfarland Addendum: 12/14/18 at 0457 by KENNETH LAMAS RN ERROR
--- NOTE | 2018-12-13 20:40 | NUR ---
Nursing Note: Dr. Fofana wants patient to receive Veltassa for his K+ level of 5.8 since he previously refused Kayexalate. According to pharmacy, has to sign non-formulary drug request form. Notified pharmacy that MD is not here. Per pharmacy, hospitalist can sign. Notified Dr. Fofana. Per MD, hospitalist can sign. Notified Dr. Funk. Per Dr. Funk he will come sign form.
[2018-12-13] MEDS: TAMSULOSIN (SR) 0.4 MG CAP PO SCH (21:51)
[2018-12-13] MEDS ORDERED: SPECIAL NON-STANDARD MEDICATION PO ONE (22:00)
[2018-12-13] MEDS: INSULIN GLARGINE [LANTus] (100 UNITS/ML) SYG SC SCH (22:02)
[2018-12-13] MEDS ORDERED: PATIROMER CALCIUM SORBITEX 16.8 GM PKT PO SCH (22:30)
[2018-12-14] VITALS (12 sets, daily range): BP systolic 112–155; BP diastolic 54–83; PULSE 69–96; RESP 18–19
[2018-12-14] MEDS: HYDROCODONE/APAP (10/325) TAB PO PRN ×3 (00:28→13:33)
--- NOTE | 2018-12-14 00:39 | NUR ---
Nursing Note: Unable to insert new IV. Notified Dr. Hobbs. New order for PICC line insertion.
[2018-12-14] MEDS ORDERED: LIDOCAINE 1% (MPF) 5 ML VIAL SC ONE (01:00)
--- NOTE | 2018-12-14 01:33 | NUR ---
Nursing Note: Spoke to Bryon from [facility] Addendum: 12/14/18 at 0135 by KENNETH LAMAS RN CORRECTION: Spoke to Bryon from [facility]. Per Bryon there is no bed yet.
[2018-12-14] MEDS: ACCU-CHEK XX SCH (02:00)
--- NOTE | 2018-12-14 05:50 | NUR ---
Nursing Note: Dr. Cobb awarethataptient has not received his sodium bicarb IV fluids due to not having an IV access.
[2018-12-14] MEDS ORDERED: INSULIN ASPART [NOVOLOG] 3 ML PEN SC SCH (07:00)
--- NOTE | 2018-12-14 07:00 | NUR ---
EOSS: Patient resting comfortably in stable condition.Pt a/o X4 and on room air. VS stable. Sodium carbonate IV fluids not infused. Consent for PICC line obtained. Will endorse to oncoming RN.
[2018-12-14] MEDS: AMPICILLIN/SULB 1.5GM/NS (PMX) 50 ML IVPB SCH ×2 (07:52→16:27)
[2018-12-14] MEDS: INSULIN ASPART [NOVOLOG] 3 ML PEN SC SCH ×6 (07:53→20:50)
[2018-12-14] MEDS: TACROLIMUS 1 MG CAP PO SCH ×2 (07:54→21:08)
[2018-12-14] MEDS: predniSONE 5 MG TAB PO SCH (07:54)
[2018-12-14] MEDS: FAMOTIDINE 20 MG TAB PO SCH (07:55)
[2018-12-14] MEDS: AMLODIPINE 10 MG TAB PO SCH (07:55)
[2018-12-14] MEDS: HEPARIN 5,000 UNIT/1 ML VIAL SC SCH ×2 (07:58→21:00)
[2018-12-14] MEDS: NPH, HUMAN INSULIN ISOPHANE 3ML VIAL SC SCH (08:06)
--- NOTE | 2018-12-14 11:08 | CONS ---
Assessment/Plan Assessment/Plan Hospital Course (Demo Recall) - Progressive swelling of distal aspect of right ring finger with x-ray showing further of erosion and lucency involving the distal aspect of the distal phalanx of the right ring finger suspicious for osteomyelitis with improved but slight associated soft tissue swelling - Hx OM of R 4th digit: swelling with new erosive changes and osteopenia of the underlying R 4th distal phalanx, suggestive of osteomyelitis; wound culture grew Serratia on 03/18/18 and Serratia + CoNS (likely colonizer) on 04/04/18 ; Pt declined amputation. ESR 39 on 03/18/2018. S/p Levaquin x 6 weeks - Bacteremia d/t S. aureus 12/09/2018, repeat blood cx 12/12/18 NGTD - MRSA and K. pneumoniae in urine cx 12/09/2018 - UA was neg for pyuria - Hx mild subtle increased activity within the upper aspect of LUE, nonspecific, on WBC tagged scan on 04/05/2018 - Hx OM of R 3rd fingertip (XR showed periosteal reaction at the tip of R 3rd distal phalanx, suspicious for OM, MRI showed cellulitis of distal R 4th phalanx, without OM) and L 2nd fingertip (XR showed cortical irregularity at the tuft of L 2nd distal phalanx with overlying soft tissue defect, suggesting early OM, MRI showed OM at L 2nd distal phalanx with, cellulitis about L 2nd distal phalanx without drainable fluid collection.) - Hx OM of R 2nd finger s/p amputation at proximal phalanx neck, and h/o OM of L 3rd finger s/p amputation at middle and distal phalanges - DM - Hgb A1c 10.5% - Hx Juan's esophagus and gastritis s/p EGD on 08/12/2017. No H. pylori on Bx - Hx ESRD, was on HD - S/p renal transplant in 2009 (on tacrolimus, mycophenolate and prednisone), chronic renal insufficiency at baseline - BLE atherosclerosis - Seen by Vascular Surgery during last admit - Onychomycosis, tinea pedis - Seen by [employer] Worker during last admit - Rheumatoid arthritis - Chronic HCV infection - HTN - Dyslipidemia - Hx polysubstance and IV drug use. - Anemia of chronic disease with h/o pernicious anemia - Hx hyperparathyroidism - Thrombosed graft of LUE Recommendations: - Hold off vancomycin - Continue renally dosed unasyn x6 week course - F/u repeat blood cultures 12/12/18 (NGTD) - Consider vasc surgery eval - Consider MRI - ESR serially Management d/w patient, Dr. Blood, and with Dr. Olmstead Thank you Consultation Date/Type/Reason Admit Date/Time Dec 09, 2018 at 14:30 Initial Consult Date 12/10/18 Type of Consult ID Requesting Provider: HARVINDER BLOOD MD Date/Time of Note DATE: 12/14/18 TIME: 11:06 24 HR Interval Summary Free Text/Dictation Pending transfer to [facility], no bed yet. Patient remains afebrile. Blood culture repeat 12/12/18 is ngtd. When I spoke with patient he denied all ROS. Exam/Review of Systems Exam Vitals Vital Signs Date Temp Pulse Resp B/P (MAP) Pulse Ox O2 O2 Flow FiO2 Time Delivery Rate 12/14/18 88 08:01 12/14/18 98.0 18 133/71 98 07:39 (91) 12/13/18 Nasal 2.0 01:59 Cannula Intake and Output 12/13/18 12/13/18 12/14/18 1515:00 23:00 07:00 IntakeIntake Total 50 ml 850 ml 500 ml OutputOutput Total 1025 ml 369 ml BalanceBalance 50 ml -175 ml 131 ml Exam Constitutional: alert, oriented, well developed, frail, other (thin, cachectic) Psych: no complaints, nl mood/affect Head: normocephalic, atraumatic ENMT: nl external ears & nose, nl nasal mucosa & septum Neck: supple Respiratory: clear to auscultation, normal air movement Cardiovascular: regular rate and rhythm, nl pulses; No edema Gastrointestinal: soft, non-tender Musculoskeletal: other (LUE AVF graft site with no TTP, no bruit, no thrill) Extremities: normal pulses, other (partial amputation of R 2nd and 3rd fingers and L 2nd and 3rd fingers; R middle finger is open to air, greyish discoloration of tip, nonttp with swelling.; R 3rd and 4th fingers are swollen); No edema 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: nl mental status, nl speech, nl strength Skin: nl turgor Results Result Diagram: 12/12/18 0537 12/14/18 0508 Results 24hrs Laboratory Tests Test 12/13/18 12:13 12/13/18 12:27 12/13/18 12:45 12/13/18 12:55 Bedside Glucose 59 L 112 116 119 Test 12/13/18 15:39 12/13/18 17:38 12/13/18 21:55 12/13/18 23:30 Sodium Level 137 Potassium Level 5.8 H Chloride Level 112 H Carbon Dioxide 15 L Level Anion Gap 10 Blood Urea 45 H Nitrogen Creatinine 3.92 H Est Glomerular 16 L Filtrat Rate mL/min Glucose Level 164 # Calcium Level 9.8 Bedside Glucose 206 162 Urine Color YELLOW Urine Clarity SLIGHTLY CLOUDY A Urine pH 5.0 Urine Specific 1.017 [place] Urine Ketones NEGATIVE Urine Nitrite NEGATIVE Urine Bilirubin NEGATIVE Urine NEGATIVE Urobilinogen Urine Leukocyte NEGATIVE Esterase Urine Microscopic 1 RBC Urine Microscopic 1 WBC Urine Hemoglobin NEGATIVE Urine Glucose 1+ H Urine Total 2+ H Protein Test 12/14/18 03:50 12/14/18 05:08 12/14/18 07:53 Bedside Glucose 146 129 Sodium Level 138 Potassium Level 5.3 H Chloride Level 114 H Carbon Dioxide 15 L Level Anion Gap 9 Blood Urea 47 H Nitrogen Creatinine 4.01 H Est Glomerular 15 L Filtrat Rate mL/min Glucose Level 133 Calcium Level 9.6 Imaging Imaging CXR 12/13/18 IMPRESSION: No pneumonia or failure. Hyperinflation. Probable skin fold right chest, however, pneumothorax cannot be ruled out. chest x-ray is recommended for more definitive diagnosis. Abd/Pelvis CT 12/13/18 IMPRESSION: 1. Right iliac fossa transplant kidney. Mild prominence and urothelial thickening of the transplant collecting system similar to at least 08/13/2017, with decreased surrounding soft tissue stranding. This is nonspecific, superimposed infectious process may have a similar imaging appearance. 2. Atrophic bilateral [place] kidneys. Prominence of the left greater than right distal [place] ureters, similar in appearance to the baseline available exam dated 01/12/2013. 3. Extensive vascular calcifications as above, including coronary artery calcifications. 4. Small to moderate amount of intraperitoneal free fluid. 5. Additional findings as described above Echo 12/10/18 Conclusions: Normal left ventricular systolic function. Normal left ventricular cavity size. Moderate asymmetric septal hypertrophy. Ejection fraction is visually estimated at 60-65 %. Tissue Doppler/Mitral Doppler indices are within normal limits. Mitral valve leaflets appear mildly thickened. Mild mitral annular calcification. Trace mitral regurgitation. Mild to moderate aortic stenosis. Aortic valve Max velocity 2.45 m/sec. Max PG 24.00 mmHg. Mean PG 13.00 mmHg. Aortic valve area 1.65 cm2. Aortic cusps appear moderately calcified. Normal appearance of the tricuspid valve. Estimated peak PA systolic pressure 25 mmHg. There is trace tricuspid regurgitation. Medications Medication Current Medications Prednisone (Prednisone) 5 mg DAILY PO Last administered on 12/14/18at 07:54; Admin Dose 5 MG; Start 12/10/18 at 09:00 Diagnostic Test (Pha) (Accu-Chek) 1 ea 02 XX Last administered on 12/12/18at 02:14; Admin Dose 1 EA; Start 12/10/18 at 02:00 Ondansetron HCl (Zofran Inj) 4 mg Q6H PRN IV NAUSEA/VOMITING Last administered on 12/09/18at 23:00; Admin Dose 4 MG; Start 12/09/18 at 18:30 Acetaminophen (Tylenol Tab) 650 mg Q6H PRN PO .PAIN 1-3 OR TEMP Last administered on 12/09/18at 22:14; Admin Dose 650 MG; Start 12/09/18 at 18:30 Docusate Sodium (Colace) 100 mg Q12H PRN PO .CONSTIPATION; Start 12/09/18 at 18:30 Bisacodyl (Dulcolax) 5 mg DAILY PRN PO .CONSTIPATION; Start 12/09/18 at 18:30 Famotidine (Pepcid) 20 mg DAILY PO Last administered on 12/14/18at 07:55; Admin Dose 20 MG; Start 12/09/18 at 21:00 Heparin Sodium (Porcine) (Heparin (5000 Units/1ml)) 5,000 unit Q12 SC ; Start 12/09/18 at 21:00 Miscellaneous Information 1 ea NOTE XX ; Start 12/09/18 at 18:30 Glucose (Glutose) 15 gm Q15M PRN PO DECREASED GLUCOSE; Start 12/09/18 at 18:30 Glucose (Glutose) 22.5 gm Q15M PRN PO DECREASED GLUCOSE; Start 12/09/18 at 18:30 Dextrose (D50w Syringe) 25 ml Q15M PRN IV DECREASED GLUCOSE; Start 12/09/18 at 18:30 Dextrose (D50w Syringe) 50 ml Q15M PRN IV DECREASED GLUCOSE; Start 12/09/18 at 18:30 Glucagon (Glucagen) 1 mg Q15M PRN IM DECREASED GLUCOSE; Start 12/09/18 at 18:30 Glucose (Glutose) 15 gm Q15M PRN BUCCAL DECREASED GLUCOSE; Start 12/09/18 at 18:30 Hydralazine HCl (Apresoline) 20 mg Q4 PRN IV SBP > 160 Last administered on 12/09/18at 21:32; Admin Dose 20 MG; Start 12/09/18 at 21:00 Clonidine (Catapres) 0.1 mg Q6H PRN PO SBP> 160 Last administered on 12/09/18 22:14; Admin Dose 0.1 MG; Start 12/09/18 at 21:00 Amlodipine Besylate (Norvasc) 10 mg DAILY PO Last administered on 12/14/18 07:55; Admin Dose 10 MG; Start 12/09/18 at 21:00 Zolpidem Tartrate (Ambien) 5 mg HS PRN PO INSOMNIA; Start 12/09/18 at 23:30 Acetaminophen/ Hydrocodone Bitart ([place] (10/325)) 1 tab Q6H PRN PO MODERATE PAIN LEVEL 4-6 Last administered on 12/14/18 06:48; Admin Dose 1 TAB; Start 12/10/18 at 19:00 Clonidine (Catapres) 0.1 mg BID PO Last administered on 12/14/18at 07:55; Admin Dose 0.1 MG; Start 12/10/18 at 21:00 Hydralazine HCl (Apresoline) 25 mg Q8 PO Last administered on 12/14/18 06:35; Admin Dose 25 MG; Start 12/10/18 at 22:00 Tamsulosin HCl (Flomax) 0.4 mg HS PO Last administered on 12/13/18 21:51; Admin Dose 0.4 MG; Start 12/10/18 at 21:00 Morphine Sulfate (morphine) 2 mg Q4H PRN IV .SEVERE PAIN 7-10; Start 12/11/18 at 11:22 Insulin Human NPH (Humulin N) 4 unit DAILY@0900 SC Last administered on 12/14/18 08:06; Admin Dose 4 UNIT; Start 12/12/18 at 09:00 Insulin Glargine (Lantus) 8 units DAILY@2000 SC Last administered on 12/13/18 22:02; Admin Dose 8 UNITS; Start 12/12/18 at 20:00 Tacrolimus (Prograf) 2 mg QAM PO Last administered on 12/14/18at 07:54; Admin Dose 2 MG; Start 12/13/18 at 09:00 Ampicillin Sodium/ Sulbactam Sodium 50 ml @ 100 mls/hr Q12 IVPB Last administered on 12/13/18 14:10; Admin Dose 100 MLS/HR; Start 12/13/18 at 13:00 Insulin Aspart (Novolog Insulin Pen) 3 unit AC LUNCH DINNER SC Last administered on 12/13/18 17:46; Admin Dose 3 UNIT; Start 12/13/18 at 17:30 Insulin Aspart (Novolog Insulin Pen) NOVOLOG *MILD* ALGORITHM WITH MEALS BEDTIME SC Last administered on 12/13/18 17:46; Admin Dose 1 UNIT; Start 12/13/18 at 18:00 Insulin Aspart (Novolog Insulin Pen) 2 unit AC BREAKFAST SC Last administered on 12/14/18 08:06; Admin Dose 2 UNIT; Start 12/14/18 at 07:00 Sodium Bicarbonate 50 meq/Dextrose 1,000 ml @ 40 mls/hr Q24H IV ; Start 12/13/18 at 17:30; Stop 12/14/18 at 18:29 Tacrolimus (Prograf) 1 mg QHS PO Last administered on 12/13/18 22:03; Admin Dose 1 MG; Start 12/13/18 at 21:00 MAHAD MAHARAJ NP Dec 14, 2018 11:08
--- NOTE | 2018-12-14 11:17 | CONS ---
Assessment/Plan Assessment/Plan Hospital Course (Demo Recall) IMPRESSION: 1. Hypertension-labile 2. Gangrenous changes of the patient's finger. 3. Renal failure on HD 4. Rheumatoid arthritis. 5. Diabetes mellitus. 6. History of Juan's esophagus. 7. Dyslipidemia. Recc: -Tele -serial ecg's -Continue clonidine and hydralazine with reasonable bp control -Continue Norvasc -Continue immunosuppresives -HD for volume removal -ongoing ortho eval of finger with probable conservative management at this time Consultation Date/Type/Reason Admit Date/Time Dec 09, 2018 at 14:30 Initial Consult Date 12/10/18 Type of Consult Cardiology Reason for Consultation HTN Requesting Provider: HARVINDER BLOOD MD Date/Time of Note DATE: 12/14/18 TIME: 11:16 Exam/Review of Systems Vital Signs Vitals Vital Signs Date Temp Pulse Resp B/P (MAP) Pulse Ox O2 O2 Flow FiO2 Time Delivery Rate 12/14/18 88 08:01 12/14/18 98.0 18 133/71 98 07:39 (91) 12/13/18 Nasal 2.0 01:59 Cannula Intake and Output 12/13/18 12/13/18 12/14/18 1515:00 23:00 07:00 IntakeIntake Total 50 ml 850 ml 500 ml OutputOutput Total 1025 ml 369 ml BalanceBalance 50 ml -175 ml 131 ml Exam Exam Review of Systems: CONSTITUTIONAL: No fevers, chills. PULMONARY: No sob CARDIOVASCULAR: No chest pain/palpitations GASTROINTESTINAL: No nausea/vomiting. GENITOURINARY: No hematuria/dysuria. MUSCULOSKELETAL: No myagias/arthalgias. PSYCHIATRIC: The patient denies depression. NEUROLOGIC: No weakness Constitutional: alert Head: normocephalic ENMT: mucosa pink and moist Neck: supple, jvd (9 cm water) Respiratory: diminished breath sounds (at bases/B) Cardiovascular: regular rate and rhythm Gastrointestinal: soft, non-tender Musculoskeletal: muscle tone (normnal) Extremities: edema (none), other (finger with gangrenous changes) Labs Result Diagram: 12/12/18 0537 12/14/18 0508 Results 24hrs Laboratory Tests Test 12/13/18 12:13 12/13/18 12:27 12/13/18 12:45 12/13/18 12:55 Bedside Glucose 59 L 112 116 119 Test 12/13/18 15:39 12/13/18 17:38 12/13/18 21:55 12/13/18 23:30 Sodium Level 137 Potassium Level 5.8 H Chloride Level 112 H Carbon Dioxide 15 L Level Anion Gap 10 Blood Urea 45 H Nitrogen Creatinine 3.92 H Est Glomerular 16 L Filtrat Rate mL/min Glucose Level 164 # Calcium Level 9.8 Bedside Glucose 206 162 Urine Color YELLOW Urine Clarity SLIGHTLY CLOUDY A Urine pH 5.0 Urine Specific 1.017 [place] Urine Ketones NEGATIVE Urine Nitrite NEGATIVE Urine Bilirubin NEGATIVE Urine NEGATIVE Urobilinogen Urine Leukocyte NEGATIVE Esterase Urine Microscopic 1 RBC Urine Microscopic 1 WBC Urine Hemoglobin NEGATIVE Urine Glucose 1+ H Urine Total 2+ H Protein Test 12/14/18 03:50 12/14/18 05:08 12/14/18 07:53 Bedside Glucose 146 129 Sodium Level 138 Potassium Level 5.3 H Chloride Level 114 H Carbon Dioxide 15 L Level Anion Gap 9 Blood Urea 47 H Nitrogen Creatinine 4.01 H Est Glomerular 15 L Filtrat Rate mL/min Glucose Level 133 Calcium Level 9.6 Medications Medications Current Medications Prednisone (Prednisone) 5 mg DAILY PO Last administered on 12/14/18 07:54; Admin Dose 5 MG; Start 12/10/18 at 09:00 Diagnostic Test (Pha) (Accu-Chek) 1 ea 02 XX Last administered on 12/12/18at 02:14; Admin Dose 1 EA; Start 12/10/18 at 02:00 Ondansetron HCl (Zofran Inj) 4 mg Q6H PRN IV NAUSEA/VOMITING Last administered on 12/09/18at 23:00; Admin Dose 4 MG; Start 12/09/18 at 18:30 Acetaminophen (Tylenol Tab) 650 mg Q6H PRN PO .PAIN 1-3 OR TEMP Last administered on 12/09/18 22:14; Admin Dose 650 MG; Start 12/09/18 at 18:30 Docusate Sodium (Colace) 100 mg Q12H PRN PO .CONSTIPATION; Start 12/09/18 at 18:30 Bisacodyl (Dulcolax) 5 mg DAILY PRN PO .CONSTIPATION; Start 12/09/18 at 18:30 Famotidine (Pepcid) 20 mg DAILY PO Last administered on 12/14/18 07:55; Admin Dose 20 MG; Start 12/09/18 at 21:00 Heparin Sodium (Porcine) (Heparin (5000 Units/1ml)) 5,000 unit Q12 SC ; Start 12/09/18 at 21:00 Miscellaneous Information 1 ea NOTE XX ; Start 12/09/18 at 18:30 Glucose (Glutose) 15 gm Q15M PRN PO DECREASED GLUCOSE; Start 12/09/18 at 18:30 Glucose (Glutose) 22.5 gm Q15M PRN PO DECREASED GLUCOSE; Start 12/09/18 at 18:30 Dextrose (D50w Syringe) 25 ml Q15M PRN IV DECREASED GLUCOSE; Start 12/09/18 at 18:30 Dextrose (D50w Syringe) 50 ml Q15M PRN IV DECREASED GLUCOSE; Start 12/09/18 at 18:30 Glucagon (Glucagen) 1 mg Q15M PRN IM DECREASED GLUCOSE; Start 12/09/18 at 18:30 Glucose (Glutose) 15 gm Q15M PRN BUCCAL DECREASED GLUCOSE; Start 12/09/18 at 18:30 Hydralazine HCl (Apresoline) 20 mg Q4 PRN IV SBP > 160 Last administered on 12/09/18at 21:32; Admin Dose 20 MG; Start 12/09/18 at 21:00 Clonidine (Catapres) 0.1 mg Q6H PRN PO SBP> 160 Last administered on 12/09/18at 22:14; Admin Dose 0.1 MG; Start 12/09/18 at 21:00 Amlodipine Besylate (Norvasc) 10 mg DAILY PO Last administered on 12/14/18 07:55; Admin Dose 10 MG; Start 12/09/18 at 21:00 Zolpidem Tartrate (Ambien) 5 mg HS PRN PO INSOMNIA; Start 12/09/18 at 23:30 Acetaminophen/ Hydrocodone Bitart ([place] (10/325)) 1 tab Q6H PRN PO MODERATE PAIN LEVEL 4-6 Last administered on 12/14/18 06:48; Admin Dose 1 TAB; Start 12/10/18 at 19:00 Clonidine (Catapres) 0.1 mg BID PO Last administered on 12/14/18 07:55; Admin Dose 0.1 MG; Start 12/10/18 at 21:00 Hydralazine HCl (Apresoline) 25 mg Q8 PO Last administered on 12/14/18 06:35; Admin Dose 25 MG; Start 12/10/18 at 22:00 Tamsulosin HCl (Flomax) 0.4 mg HS PO Last administered on 12/13/18 21:51; Admin Dose 0.4 MG; Start 12/10/18 at 21:00 Morphine Sulfate (morphine) 2 mg Q4H PRN IV .SEVERE PAIN 7-10; Start 12/11/18 at 11:22 Insulin Human NPH (Humulin N) 4 unit DAILY@0900 SC Last administered on 12/14/18 08:06; Admin Dose 4 UNIT; Start 12/12/18 at 09:00 Insulin Glargine (Lantus) 8 units DAILY@2000 SC Last administered on 12/13/18 22:02; Admin Dose 8 UNITS; Start 12/12/18 at 20:00 Tacrolimus (Prograf) 2 mg QAM PO Last administered on 12/14/18 07:54; Admin Dose 2 MG; Start 12/13/18 at 09:00 Ampicillin Sodium/ Sulbactam Sodium 50 ml @ 100 mls/hr Q12 IVPB Last administered on 12/13/18 14:10; Admin Dose 100 MLS/HR; Start 12/13/18 at 13:00 Insulin Aspart (Novolog Insulin Pen) 3 unit AC LUNCH DINNER SC Last administered on 12/13/18 17:46; Admin Dose 3 UNIT; Start 12/13/18 at 17:30 Insulin Aspart (Novolog Insulin Pen) NOVOLOG *MILD* ALGORITHM WITH MEALS BEDTIME SC Last administered on 12/13/18 17:46; Admin Dose 1 UNIT; Start 12/13/18 at 18:00 Insulin Aspart (Novolog Insulin Pen) 2 unit AC BREAKFAST SC Last administered on 12/14/18 08:06; Admin Dose 2 UNIT; Start 12/14/18 at 07:00 Sodium Bicarbonate 50 meq/Dextrose 1,000 ml @ 40 mls/hr Q24H IV ; Start 12/13/18 at 17:30; Stop 12/14/18 at 18:29 Tacrolimus (Prograf) 1 mg QHS PO Last administered on 12/13/18 22:03; Admin Dose 1 MG; Start 12/13/18 at 21:00 ABDELRAHMAN KNOTT Dec 14, 2018 11:17
--- NOTE | 2018-12-14 11:35 | NUR ---
MARGARITO Notes: T/c made to [facility] [employer] Fidel PN: [phone] whom stated that they are still waiting for the Financial Clearance of the patient. As soon as they will get it they will call us back for the bed. Addendum: 12/14/18 at 1355 by ALEK IQBAL RN, CM MARGARITO Notes: T/c made to SHARON Draper CM to discuss the case, as per Baron we need an GUERDA for this patient since this a CAP patient to [facility]. Reached out to Tegan eW[employer]s ext [phone] left a message to her voicemail to contact Mayra of [facility] PN: [phone] for them to coordinate with this transfer. Notified both persons that MD Harper wants tihis case expedited due to worsening kiidney function of the patient. Will follow the case for the day. MARGARITO Bernard ext [phone]
[2018-12-14] MEDS ORDERED: SPECIAL NON-STANDARD MEDICATION PO ONE (12:30)
--- NOTE | 2018-12-14 12:40 | CONS ---
Assessment/Plan Assessment/Plan Assessment/Plan (Daily) 58 y/o with #. Acute on chronic renal failure, spoke to [facility] Cr was 2.5 in 10/20 now 3.19> 3.9 culd be due to sepsis vs ATN due to sepsis/meds vs prograft toxicity vs mild hydro; Cr continue to rise. Pt also has underlying DM nephropathy ;hold myfortic due to bacterimia;dec Prograft already to 2/2 from 3/2 Levels 12m resend new levels # Hyperkalemia, could be secondary to uncontrolled sugars/worsening renal failure/acidosis , vs prograft , dose reduced #. Non gap Metabolic acidosis.due to worsening renal failure #. Sepsis # Right middle finger cellulitis with gangrene. # Status post donor renal transplantation in 2009. # Hypertension. #. Right 4th toe gangrene. #. Severe peripheral vascular disease. #. History of Juan's esophagitis. #. Chronic hepatitis C virus infection. # History of polysubstance use. #. DM type II Assessment/Plan (Daily) -We will again give Veltassa for hyperkalemia. -Patient cannot have a PICC line will get as ordered by PMD will order midline and patient will have a IV bicarb as patient is refusing it -Monitor potassium, urine output, currently no emergent indication of dialysis, however continue to monitor the patient closely very closely -Prograf was reduced to 2 / 2 repeat Prograf level sent. Hold Myfortic due to staph bacteremia. Continue with prednisone -ID to renally dose all antibiotics -Continue with Flomax , urology following -Patient will likely need kidney biopsy patient also has history of Prograf toxicity unable to monitor Prograf levels in [facility] as it takes 4 days for the levels to come back need to be transferred to higher level of care for further monitoring and possible kidney biopsy and immunosuppression with -spoke the patient at the bedside, so spoke to the nurse coordinator Christa at [facility], spoke to the telephonic nurse case manager still waiting for GUERDA between insurances patient needs to get transferred to higher level of care NOHEMY -Renally dose all meds -Avoid nephrotoxins -repeat blood cultures pending -DM control per primary Consultation Date/Type/Reason Admit Date/Time Dec 09, 2018 at 14:30 Initial Consult Date 12/10/18 Requesting Provider: HARVINDER BLOOD MD Date/Time of Note DATE: 12/14/18 TIME: 12:28 24 HR Interval Summary Free Text/Dictation he feels okay. Denies any chest pain/shortness of breath Was placed for PICC line however will switch her to midline uop 1294 in last 24 hours cr continue to get worse k 5.3 today given Veltassa yesterday Exam/Review of Systems Exam Vitals Vital Signs Date Temp Pulse Resp B/P (MAP) Pulse Ox O2 O2 Flow FiO2 Time Delivery Rate 12/14/18 98.0 69 18 116/70 97 11:16 (85) 12/13/18 Nasal 2.0 01:59 Cannula Intake and Output 12/13/18 12/13/18 12/14/18 1515:00 23:00 07:00 IntakeIntake Total 50 ml 850 ml 500 ml OutputOutput Total 1025 ml 369 ml BalanceBalance 50 ml -175 ml 131 ml Exam Constitutional: alert, oriented Respiratory: clear to auscultation Cardiovascular: regular rate and rhythm Gastrointestinal: soft Left flank tenderness Gangrene Results Result Diagram: 12/12/18 0537 12/14/18 0508 Results 24hrs Laboratory Tests Test 12/13/18 12:45 12/13/18 12:55 12/13/18 15:39 12/13/18 17:38 Bedside Glucose 116 119 206 Sodium Level 137 Potassium Level 5.8 H Chloride Level 112 H Carbon Dioxide 15 L Level Anion Gap 10 Blood Urea 45 H Nitrogen Creatinine 3.92 H Est Glomerular 16 L Filtrat Rate mL/min Glucose Level 164 # Calcium Level 9.8 Test 12/13/18 21:55 12/13/18 23:30 12/14/18 03:50 12/14/18 05:08 Bedside Glucose 162 146 Urine Color YELLOW Urine Clarity SLIGHTLY CLOUDY A Urine pH 5.0 Urine Specific 1.017 [place] Urine Ketones NEGATIVE Urine Nitrite NEGATIVE Urine Bilirubin NEGATIVE Urine NEGATIVE Urobilinogen Urine Leukocyte NEGATIVE Esterase Urine Microscopic 1 RBC Urine Microscopic 1 WBC Urine Hemoglobin NEGATIVE Urine Glucose 1+ H Urine Total 2+ H Protein Sodium Level 138 Potassium Level 5.3 H Chloride Level 114 H Carbon Dioxide 15 L Level Anion Gap 9 Blood Urea 47 H Nitrogen Creatinine 4.01 H Est Glomerular 15 L Filtrat Rate mL/min Glucose Level 133 Calcium Level 9.6 Test 12/14/18 07:53 12/14/18 12:27 Bedside Glucose 129 177 Medications Medication Current Medications Prednisone (Prednisone) 5 mg DAILY PO Last administered on 12/14/18at 07:54; Admin Dose 5 MG; Start 12/10/18 at 09:00 Diagnostic Test (Pha) (Accu-Chek) 1 ea 02 XX Last administered on 12/12/18at 02:14; Admin Dose 1 EA; Start 12/10/18 at 02:00 Ondansetron HCl (Zofran Inj) 4 mg Q6H PRN IV NAUSEA/VOMITING Last administered on 12/09/18at 23:00; Admin Dose 4 MG; Start 12/09/18 at 18:30 Acetaminophen (Tylenol Tab) 650 mg Q6H PRN PO .PAIN 1-3 OR TEMP Last administered on 12/09/18at 22:14; Admin Dose 650 MG; Start 12/09/18 at 18:30 Docusate Sodium (Colace) 100 mg Q12H PRN PO .CONSTIPATION; Start 12/09/18 at 18:30 Bisacodyl (Dulcolax) 5 mg DAILY PRN PO .CONSTIPATION; Start 12/09/18 at 18:30 Famotidine (Pepcid) 20 mg DAILY PO Last administered on 12/14/18at 07:55; Admin Dose 20 MG; Start 12/09/18 at 21:00 Heparin Sodium (Porcine) (Heparin (5000 Units/1ml)) 5,000 unit Q12 SC ; Start 12/09/18 at 21:00 Miscellaneous Information 1 ea NOTE XX ; Start 12/09/18 at 18:30 Glucose (Glutose) 15 gm Q15M PRN PO DECREASED GLUCOSE; Start 12/09/18 at 18:30 Glucose (Glutose) 22.5 gm Q15M PRN PO DECREASED GLUCOSE; Start 12/09/18 at 18:30 Dextrose (D50w Syringe) 25 ml Q15M PRN IV DECREASED GLUCOSE; Start 12/09/18 at 18:30 Dextrose (D50w Syringe) 50 ml Q15M PRN IV DECREASED GLUCOSE; Start 12/09/18 at 18:30 Glucagon (Glucagen) 1 mg Q15M PRN IM DECREASED GLUCOSE; Start 12/09/18 at 18:30 Glucose (Glutose) 15 gm Q15M PRN BUCCAL DECREASED GLUCOSE; Start 12/09/18 at 18:30 Hydralazine HCl (Apresoline) 20 mg Q4 PRN IV SBP > 160 Last administered on 12/09/18 21:32; Admin Dose 20 MG; Start 12/09/18 at 21:00 Clonidine (Catapres) 0.1 mg Q6H PRN PO SBP> 160 Last administered on 12/09/18 22:14; Admin Dose 0.1 MG; Start 12/09/18 at 21:00 Amlodipine Besylate (Norvasc) 10 mg DAILY PO Last administered on 12/14/18 07:55; Admin Dose 10 MG; Start 12/09/18 at 21:00 Zolpidem Tartrate (Ambien) 5 mg HS PRN PO INSOMNIA; Start 12/09/18 at 23:30 Acetaminophen/ Hydrocodone Bitart ([place] (10)) 1 tab Q6H PRN PO MODERATE PAIN LEVEL 4-6 Last administered on 12/14/18 06:48; Admin Dose 1 TAB; Start 12/10/18 at 19:00 Clonidine (Catapres) 0.1 mg BID PO Last administered on 12/14/18 07:55; Admin Dose 0.1 MG; Start 12/10/18 at 21:00 Hydralazine HCl (Apresoline) 25 mg Q8 PO Last administered on 12/14/18 06:35; Admin Dose 25 MG; Start 12/10/18 at 22:00 Tamsulosin HCl (Flomax) 0.4 mg HS PO Last administered on 12/13/18 21:51; Admin Dose 0.4 MG; Start 12/10/18 at 21:00 Morphine Sulfate (morphine) 2 mg Q4H PRN IV .SEVERE PAIN 7-10; Start 12/11/18 at 11:22 Insulin Human NPH (Humulin N) 4 unit DAILY@0900 SC Last administered on 12/14/18 08:06; Admin Dose 4 UNIT; Start 12/12/18 at 09:00 Insulin Glargine (Lantus) 8 units DAILY@2000 SC Last administered on 12/13/18 22:02; Admin Dose 8 UNITS; Start 12/12/18 at 20:00 Tacrolimus (Prograf) 2 mg QAM PO Last administered on 2/11/19at 07:54; Admin Dose 2 MG; Start 12/13/18 at 09:00 Ampicillin Sodium/ Sulbactam Sodium 50 ml @ 100 mls/hr Q12 IVPB Last administered on 12/13/18at 14:10; Admin Dose 100 MLS/HR; Start 12/13/18 at 13:00 Insulin Aspart (Novolog Insulin Pen) 3 unit AC LUNCH DINNER SC Last administered on 12/13/18at 17:46; Admin Dose 3 UNIT; Start 12/13/18 at 17:30 Insulin Aspart (Novolog Insulin Pen) NOVOLOG *MILD* ALGORITHM WITH MEALS BEDTIME SC Last administered on 12/13/18at 17:46; Admin Dose 1 UNIT; Start 12/13/18 at 18:00 Insulin Aspart (Novolog Insulin Pen) 2 unit AC BREAKFAST SC Last administered on 12/14/18at 08:06; Admin Dose 2 UNIT; Start 12/14/18 at 07:00 Sodium Bicarbonate 50 meq/Dextrose 1,000 ml @ 40 mls/hr Q24H IV ; Start 12/13/18 at 17:30; Stop 12/14/18 at 18:29 Tacrolimus (Prograf) 1 mg QHS PO Last administered on 12/13/18at 22:03; Admin Dose 1 MG; Start 12/13/18 at 21:00 Non-Formulary Medication 1 ea ONCE ONCE PO ; Start 12/14/18 at 12:30; Stop 12/14/18 at 12:31; Status HARVINDER COLLINS MD Dec 14, 2018 12:39
[2018-12-14] MEDS ORDERED: PATIROMER CALCIUM SORBITEX 16.8 GM PKT PO SCH (13:30)
--- NOTE | 2018-12-14 13:59 | CONS ---
Assessment/Plan Assessment/Plan Problems: (1) Type 2 diabetes mellitus with diabetic peripheral angiopathy with gangrene Status: Chronic Comment: Post-prandial BG after breakfast low yesterday but high today. Yesterday, scheduled bolus of Novolog was decreased from 3 to 2. Clearly pt. needs 3 units novolog w/ breakfast and will re-implement this. However, the correctional scale of 1 unit to 40 mg/dL starting at 140 mg/dL is likely too much for this pt. in the mornings when prednisone is not active. Will give pt. 2 different correctional scales. Cont. mild alg. for dinner and hs but start a lower custom scale of 1:50 mg/dL over 200 mg/dL. Cont. lantus 8 units qhs and NPH 4 units in the morning w/ prednisone and 3 units Novolog w/ all meals. Reeval tomorrow. 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 Monitor mood. Consultation Date/Type/Reason Admit Date/Time Dec 09, 2018 at 14:30 Initial Consult Date 12/10/18 Type of Consult Endocrinology Reason for Consultation T2DM OOC Requesting Provider: HARVINDER BLOOD MD Date/Time of Note DATE: 12/14/18 TIME: 13:54 24 HR Interval Summary Constitutional: no complaints, improved Detailed Summary Respiratory: no complaints Cardiovascular: no complaints Gastrointestinal: no complaints Genitourinary: no complaints Musculoskeletal: bone/joint pain (diffuse but pain meds help) Neurologic: no complaints Psychological: depression Exam/Review of Systems Exam Vitals VS - Last 72 Hours, by Label Date Temp Pulse Resp B/P (MAP) Pulse Ox O2 O2 Flow FiO2 Time Delivery Rate 12/14/18 69 12:01 12/14/18 98.0 69 18 116/70 97 11:16 (85) 12/14/18 88 08:01 12/14/18 98.0 73 18 133/71 98 07:39 (91) 12/14/18 97.4 78 18 155/83 100 04:00 (107) 12/14/18 75 04:00 12/14/18 96 00:00 12/14/18 98.3 75 18 132/72 96 00:00 (92) 12/13/18 98.4 86 18 156/82 98 20:00 (106) 12/13/18 81 20:00 12/13/18 98.0 73 18 112/67 98 16:10 (82) 12/13/18 82 16:01 12/13/18 72 12:01 12/13/18 98.0 70 18 106/66 98 11:51 (79) 12/13/18 63 08:01 12/13/18 98.0 87 18 127/75 98 07:52 (92) 12/13/18 62 04:00 12/13/18 98.2 72 18 130/78 97 04:00 (95) 12/13/18 Nasal 2.0 01:59 Cannula 12/13/18 74 00:00 12/13/18 98.0 70 18 108/67 100 00:00 (81) 12/12/18 Nasal 2.0 20:20 Cannula 12/12/18 94 20:00 12/12/18 98.0 104 18 164/85 99 20:00 (111) 12/12/18 98 16:01 12/12/18 97.5 80 16 131/73 95 Nasal 15:26 (92) Cannula 12/12/18 70 12:01 12/12/18 97.8 68 20 105/68 97 Room Air 11:09 (80) 12/12/18 67 08:01 12/12/18 97.5 63 20 113/66 100 Nasal 07:20 (82) Cannula 12/12/18 98.2 79 18 131/75 99 04:13 (93) 12/12/18 65 04:00 12/12/18 72 00:00 12/11/18 98.2 76 18 132/73 99 23:51 (92) 12/11/18 Nasal 2.0 20:00 Cannula 12/11/18 78 20:00 12/11/18 97.9 81 17 141/71 100 19:45 (94) 12/11/18 82 16:17 12/11/18 97.7 82 18 129/72 100 16:15 (91) Vital Signs Date Temp Pulse Resp B/P (MAP) Pulse Ox O2 O2 Flow FiO2 Time Delivery Rate 12/14/18 69 12:01 12/14/18 98.0 18 116/70 97 11:16 (85) 12/13/18 Nasal 2.0 01:59 Cannula Intake and Output 12/13/18 12/13/18 12/14/18 1515:00 23:00 07:00 IntakeIntake Total 50 ml 850 ml 500 ml OutputOutput Total 1025 ml 369 ml BalanceBalance 50 ml -175 ml 131 ml Constitutional: alert, oriented, frail Psych: depression (tearful) Respiratory: clear to auscultation, normal air movement Cardiovascular: regular rate and rhythm; No edema, No murmurs/extra sounds, No rub Gastrointestinal: soft, nl liver, spleen, non-tender, bowel sounds; No mass, No rebound or guarding Musculoskeletal: No nl extremities to inspection (R 2nd finger and L 3rd finger distal amps, R 3rd finger w/ distal ecchymosis but improved vs. day of admit) Extremities: No cyanosis, No clubbing, No edema 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: HIV NURSE II-XII intact, nl mental status, nl speech, nl strength, other (tremulous) Additional Comments Bedside Glucose - 72 Hours Test 12/11/18 17:37 12/11/18 20:46 12/12/18 02:11 12/12/18 07:49 Bedside 152 137 124 108 Glucose mg/dL (70-220) mg/dL (70-220) mg/dL (70-220) mg/dL (70-220) Test 12/12/18 09:51 12/12/18 12:30 12/12/18 13:12 12/12/18 17:08 Bedside 85 66 69 211 Glucose mg/dL (70-220) mg/dL (70-220) mg/dL (70-220) mg/dL (70-220) L L Test 12/12/18 21:40 12/13/18 08:21 12/13/18 12:13 12/13/18 12:27 Bedside 174 189 59 112 Glucose mg/dL (70-220) mg/dL (70-220) mg/dL (70-220) mg/dL (70-220) L Test 12/13/18 12:45 12/13/18 12:55 12/13/18 17:38 12/13/18 21:55 Bedside 116 119 206 162 Glucose mg/dL (70-220) mg/dL (70-220) mg/dL (70-220) mg/dL (70-220) Test 12/14/18 03:50 12/14/18 07:53 12/14/18 12:27 Bedside 146 129 177 Glucose mg/dL (70-220) mg/dL (70-220) mg/dL (70-220) Results Result Diagram: 12/12/18 0537 12/14/18 0508 Results 24hrs Laboratory Tests Test 12/13/18 15:39 12/13/18 17:38 12/13/18 21:55 12/13/18 23:30 Sodium Level 137 Potassium Level 5.8 H Chloride Level 112 H Carbon Dioxide 15 L Level Anion Gap 10 Blood Urea 45 H Nitrogen Creatinine 3.92 H Est Glomerular 16 L Filtrat Rate mL/min Glucose Level 164 # Calcium Level 9.8 Bedside Glucose 206 162 Urine Color YELLOW Urine Clarity SLIGHTLY CLOUDY A Urine pH 5.0 Urine Specific 1.017 [place] Urine Ketones NEGATIVE Urine Nitrite NEGATIVE Urine Bilirubin NEGATIVE Urine NEGATIVE Urobilinogen Urine Leukocyte NEGATIVE Esterase Urine Microscopic 1 RBC Urine Microscopic 1 WBC Urine Hemoglobin NEGATIVE Urine Glucose 1+ H Urine Total 2+ H Protein Test 12/14/18 03:50 12/14/18 05:08 12/14/18 07:53 12/14/18 12:27 Bedside Glucose 146 129 177 Sodium Level 138 Potassium Level 5.3 H Chloride Level 114 H Carbon Dioxide 15 L Level Anion Gap 9 Blood Urea 47 H Nitrogen Creatinine 4.01 H Est Glomerular 15 L Filtrat Rate mL/min Glucose Level 133 Calcium Level 9.6 Medications Medication Current Medications Prednisone (Prednisone) 5 mg DAILY PO Last administered on 12/14/18at 07:54; Admin Dose 5 MG; Start 12/10/18 at 09:00 Diagnostic Test (Pha) (Accu-Chek) 1 ea 02 XX Last administered on 12/12/18at 02:14; Admin Dose 1 EA; Start 12/10/18 at 02:00 Ondansetron HCl (Zofran Inj) 4 mg Q6H PRN IV NAUSEA/VOMITING Last administered on 12/09/18at 23:00; Admin Dose 4 MG; Start 12/09/18 at 18:30 Acetaminophen (Tylenol Tab) 650 mg Q6H PRN PO .PAIN 1-3 OR TEMP Last administered on 12/09/18at 22:14; Admin Dose 650 MG; Start 12/09/18 at 18:30 Docusate Sodium (Colace) 100 mg Q12H PRN PO .CONSTIPATION; Start 12/09/18 at 18:30 Bisacodyl (Dulcolax) 5 mg DAILY PRN PO .CONSTIPATION; Start 12/09/18 at 18:30 Famotidine (Pepcid) 20 mg DAILY PO Last administered on 12/14/18at 07:55; Admin Dose 20 MG; Start 12/09/18 at 21:00 Heparin Sodium (Porcine) (Heparin (5000 Units/1ml)) 5,000 unit Q12 SC ; Start 12/09/18 at 21:00 Miscellaneous Information 1 ea NOTE XX ; Start 12/09/18 at 18:30 Glucose (Glutose) 15 gm Q15M PRN PO DECREASED GLUCOSE; Start 12/09/18 at 18:30 Glucose (Glutose) 22.5 gm Q15M PRN PO DECREASED GLUCOSE; Start 12/09/18 at 18:30 Dextrose (D50w Syringe) 25 ml Q15M PRN IV DECREASED GLUCOSE; Start 12/09/18 at 18:30 Dextrose (D50w Syringe) 50 ml Q15M PRN IV DECREASED GLUCOSE; Start 12/09/18 at 18:30 Glucagon (Glucagen) 1 mg Q15M PRN IM DECREASED GLUCOSE; Start 12/09/18 at 18:30 Glucose (Glutose) 15 gm Q15M PRN BUCCAL DECREASED GLUCOSE; Start 12/09/18 at 18: 30 Hydralazine HCl (Apresoline) 20 mg Q4 PRN IV SBP > 160 Last administered on 12/09/18at 21:32; Admin Dose 20 MG; Start 12/09/18 at 21:00 Clonidine (Catapres) 0.1 mg Q6H PRN PO SBP> 160 Last administered on 12/09/18at 22:14; Admin Dose 0.1 MG; Start 12/09/18 at 21:00 Amlodipine Besylate (Norvasc) 10 mg DAILY PO Last administered on 12/14/18at 07:55; Admin Dose 10 MG; Start 12/09/18 at 21:00 Zolpidem Tartrate (Ambien) 5 mg HS PRN PO INSOMNIA; Start 12/09/18 at 23:30 Acetaminophen/ Hydrocodone Bitart ([place] (10)) 1 tab Q6H PRN PO MODERATE PAIN LEVEL 4-6 Last administered on 12/14/18 13:33; Admin Dose 1 TAB; Start 12/10/18 at 19:00 Clonidine (Catapres) 0.1 mg BID PO Last administered on 12/14/18 07:55; Admin Dose 0.1 MG; Start 12/10/18 at 21:00 Hydralazine HCl (Apresoline) 25 mg Q8 PO Last administered on 12/14/18 13:33; Admin Dose 25 MG; Start 12/10/18 at 22:00 Tamsulosin HCl (Flomax) 0.4 mg HS PO Last administered on 12/13/18 21:51; Admin Dose 0.4 MG; Start 12/10/18 at 21:00 Morphine Sulfate (morphine) 2 mg Q4H PRN IV .SEVERE PAIN 7-10; Start 12/11/18 at 11:22 Insulin Human NPH (Humulin N) 4 unit DAILY@0900 SC Last administered on 12/14/18 08:06; Admin Dose 4 UNIT; Start 12/12/18 at 09:00 Insulin Glargine (Lantus) 8 units DAILY@2000 SC Last administered on 12/13/18 22:02; Admin Dose 8 UNITS; Start 12/12/18 at 20:00 Tacrolimus (Prograf) 2 mg QAM PO Last administered on 12/14/18 07:54; Admin Dose 2 MG; Start 12/13/18 at 09:00 Ampicillin Sodium/ Sulbactam Sodium 50 ml @ 100 mls/hr Q12 IVPB Last administered on 12/13/18 14:10; Admin Dose 100 MLS/HR; Start 12/13/18 at 13:00 Insulin Aspart (Novolog Insulin Pen) 3 unit AC LUNCH DINNER SC Last administered on 12/14/18 12:33; Admin Dose 3 UNIT; Start 12/13/18 at 17:30 Sodium Bicarbonate 50 meq/Dextrose 1,000 ml @ 40 mls/hr Q24H IV ; Start 12/13/18 at 17:30; Stop 12/14/18 at 18:29 Tacrolimus (Prograf) 1 mg QHS PO Last administered on 12/13/18at 22:03; Admin Dose 1 MG; Start 12/13/18 at 21:00 Insulin Aspart (Novolog Insulin Pen) 3 unit AC BREAKFAST SC ; Start 12/15/18 at 07:00 Insulin Aspart (Novolog Insulin Pen) NOVOLOG *MILD* ALGORITHM AC DINNER BEDTIME SC ; Start 12/14/18 at 17:30 Insulin Aspart (Novolog Insulin Pen) NOVOLOG *CUSTOM* ALGORITHM AC BREAKFAST LUNCH SC ; Start 12/15/18 at 07:00 Miscellaneous Information (* Miscellaneous Pharmacy Order) Discontinue all previ... ONCE ONCE XX ; Start 12/14/18 at 14:00; Stop 12/14/18 at 14:01; Status UNSYLVESTER CAMARENA MD Dec 14, 2018 13:59
--- NOTE | 2018-12-14 14:13 | PN ---
Date/Time of Note Date/Time of Note DATE: 12/14/18 TIME: 14:12 Assessment/Plan VTE Prophylaxis Risk score (from Nsg)>0 risk: 1 SCD applied (from Nsg): Yes Pharmacological prophylaxis: heparin Lines/Catheters IV Catheter Type (from Nrsg): [place]ine [place] Assessment/Plan Hospital Course Patient is awake alert, pending transfer to [facility]. DW with Dorene [employer] for Dr Olmstead for possibly down grading abx due to nephrotoxicity. Assessment/Plan -Severe sepsis with Staphylococcus bacteremia, continue antibiotics per ID. Dr. Olmstead is following in infection disease consultation. -Right middle finger cellulitis with gangrene. Dr. Castro is asked to see patient in orthopedic surgery consultation. -Hyperkalemia -Renal failure, patient baseline creatinine is 1.5. Continue IV fluids. Dr. Meyers is following in nephrology consultation. -Status post cadaveric kidney transplant in 2009. -Poorly controlled diabetes mellitus type 2, hemoglobin A1c is 10.5. Continue Lantus and NovoLog. Dr. Almonte is following in endocrinology consultation. -Hypertension. -History of right fourth finger gangrene -History of Juan's esophagus and severe gastritis. -Chronic HCV infection -Rheumatoid arthritis -History of polysubstance and IV drug use -Poor medical compliance with his diabetic regimen Further recommendations based on clinical course. Plan of care discussed with Dr. Maier. Result Diagram: 12/12/18 0537 12/14/18 0508 Results 24hrs Laboratory Tests Test 12/13/18 15:39 12/13/18 17:38 12/13/18 21:55 12/13/18 23:30 Sodium Level 137 Potassium Level 5.8 H Chloride Level 112 H Carbon Dioxide 15 L Level Anion Gap 10 Blood Urea 45 H Nitrogen Creatinine 3.92 H Est Glomerular 16 L Filtrat Rate mL/min Glucose Level 164 # Calcium Level 9.8 Bedside Glucose 206 162 Urine Color YELLOW Urine Clarity SLIGHTLY CLOUDY A Urine pH 5.0 Urine Specific 1.017 [place] Urine Ketones NEGATIVE Urine Nitrite NEGATIVE Urine Bilirubin NEGATIVE Urine NEGATIVE Urobilinogen Urine Leukocyte NEGATIVE Esterase Urine Microscopic 1 RBC Urine Microscopic 1 WBC Urine Hemoglobin NEGATIVE Urine Glucose 1+ H Urine Total 2+ H Protein Test 12/14/18 03:50 12/14/18 05:08 12/14/18 07:53 12/14/18 12:27 Bedside Glucose 146 129 177 Sodium Level 138 Potassium Level 5.3 H Chloride Level 114 H Carbon Dioxide 15 L Level Anion Gap 9 Blood Urea 47 H Nitrogen Creatinine 4.01 H Est Glomerular 15 L Filtrat Rate mL/min Glucose Level 133 Calcium Level 9.6 Exam/Review of Systems Exam Vitals Vital Signs Date Temp Pulse Resp B/P (MAP) Pulse Ox O2 O2 Flow FiO2 Time Delivery Rate 12/14/18 69 12:01 12/14/18 98.0 18 116/70 97 11:16 (85) 12/13/18 Nasal 2.0 01:59 Cannula Intake and Output 12/13/18 12/13/18 12/14/18 1515:00 23:00 07:00 IntakeIntake Total 50 ml 850 ml 500 ml OutputOutput Total 1025 ml 369 ml BalanceBalance 50 ml -175 ml 131 ml Exam Constitutional: alert, oriented Respiratory: clear to auscultation Cardiovascular: nl pulses Gastrointestinal: soft, non-tender Musculoskeletal: nl extremities to inspection Extremities: normal pulses, other (Right middle finger tip necrosis) 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: nl mental status Skin: nl turgor Results Results 24hrs Laboratory Tests Test 12/13/18 15:39 12/13/18 17:38 12/13/18 21:55 12/13/18 23:30 Sodium Level 137 Potassium Level 5.8 H Chloride Level 112 H Carbon Dioxide 15 L Level Anion Gap 10 Blood Urea 45 H Nitrogen Creatinine 3.92 H Est Glomerular 16 L Filtrat Rate mL/min Glucose Level 164 # Calcium Level 9.8 Bedside Glucose 206 162 Urine Color YELLOW Urine Clarity SLIGHTLY CLOUDY A Urine pH 5.0 Urine Specific 1.017 [place] Urine Ketones NEGATIVE Urine Nitrite NEGATIVE Urine Bilirubin NEGATIVE Urine NEGATIVE Urobilinogen Urine Leukocyte NEGATIVE Esterase Urine Microscopic 1 RBC Urine Microscopic 1 WBC Urine Hemoglobin NEGATIVE Urine Glucose 1+ H Urine Total 2+ H Protein Test 12/14/18 03:50 12/14/18 05:08 12/14/18 07:53 12/14/18 12:27 Bedside Glucose 146 129 177 Sodium Level 138 Potassium Level 5.3 H Chloride Level 114 H Carbon Dioxide 15 L Level Anion Gap 9 Blood Urea 47 H Nitrogen Creatinine 4.01 H Est Glomerular 15 L Filtrat Rate mL/min Glucose Level 133 Calcium Level 9.6 Medications Medication Current Medications Prednisone (Prednisone) 5 mg DAILY PO Last administered on 12/14/18at 07:54; Admin Dose 5 MG; Start 12/10/18 at 09:00 Diagnostic Test (Pha) (Accu-Chek) 1 ea 02 XX Last administered on 12/12/18at 02:14; Admin Dose 1 EA; Start 12/10/18 at 02:00 Ondansetron HCl (Zofran Inj) 4 mg Q6H PRN IV NAUSEA/VOMITING Last administered on 12/09/18at 23:00; Admin Dose 4 MG; Start 12/09/18 at 18:30 Acetaminophen (Tylenol Tab) 650 mg Q6H PRN PO .PAIN 1-3 OR TEMP Last administered on 12/09/18at 22:14; Admin Dose 650 MG; Start 12/09/18 at 18:30 Docusate Sodium (Colace) 100 mg Q12H PRN PO .CONSTIPATION; Start 12/09/18 at 18:30 Bisacodyl (Dulcolax) 5 mg DAILY PRN PO .CONSTIPATION; Start 12/09/18 at 18:30 Famotidine (Pepcid) 20 mg DAILY PO Last administered on 12/14/18at 07:55; Admin Dose 20 MG; Start 12/09/18 at 21:00 Heparin Sodium (Porcine) (Heparin (5000 Units/1ml)) 5,000 unit Q12 SC ; Start 12/09/18 at 21:00 Miscellaneous Information 1 ea NOTE XX ; Start 12/09/18 at 18:30 Glucose (Glutose) 15 gm Q15M PRN PO DECREASED GLUCOSE; Start 12/09/18 at 18:30 Glucose (Glutose) 22.5 gm Q15M PRN PO DECREASED GLUCOSE; Start 12/09/18 at 18:30 Dextrose (D50w Syringe) 25 ml Q15M PRN IV DECREASED GLUCOSE; Start 12/09/18 at 18:30 Dextrose (D50w Syringe) 50 ml Q15M PRN IV DECREASED GLUCOSE; Start 12/09/18 at 1 8:30 Glucagon (Glucagen) 1 mg Q15M PRN IM DECREASED GLUCOSE; Start 12/09/18 at 18:30 Glucose (Glutose) 15 gm Q15M PRN BUCCAL DECREASED GLUCOSE; Start 12/09/18 at 18:30 Hydralazine HCl (Apresoline) 20 mg Q4 PRN IV SBP > 160 Last administered on 12/09/18 21:32; Admin Dose 20 MG; Start 12/09/18 at 21:00 Clonidine (Catapres) 0.1 mg Q6H PRN PO SBP> 160 Last administered on 12/09/18 22:14; Admin Dose 0.1 MG; Start 12/09/18 at 21:00 Amlodipine Besylate (Norvasc) 10 mg DAILY PO Last administered on 12/14/18 07:55; Admin Dose 10 MG; Start 12/09/18 at 21:00 Zolpidem Tartrate (Ambien) 5 mg HS PRN PO INSOMNIA; Start 12/09/18 at 23:30 Acetaminophen/ Hydrocodone Bitart ([place] (10)) 1 tab Q6H PRN PO MODERATE PAIN LEVEL 4-6 Last administered on 12/14/18 13:33; Admin Dose 1 TAB; Start 12/10/18 at 19:00 Clonidine (Catapres) 0.1 mg BID PO Last administered on 12/14/18 07:55; Admin Dose 0.1 MG; Start 12/10/18 at 21:00 Hydralazine HCl (Apresoline) 25 mg Q8 PO Last administered on 12/14/18 13:33; Admin Dose 25 MG; Start 12/10/18 at 22:00 Tamsulosin HCl (Flomax) 0.4 mg HS PO Last administered on 12/13/18 21:51; Admin Dose 0.4 MG; Start 12/10/18 at 21:00 Morphine Sulfate (morphine) 2 mg Q4H PRN IV .SEVERE PAIN 7-10; Start 12/11/18 at 11:22 Insulin Human NPH (Humulin N) 4 unit DAILY@0900 SC Last administered on 12/14/18 08:06; Admin Dose 4 UNIT; Start 12/12/18 at 09:00 Insulin Glargine (Lantus) 8 units DAILY@2000 SC Last administered on 12/13/18 22:02; Admin Dose 8 UNITS; Start 12/12/18 at 20:00 Tacrolimus (Prograf) 2 mg QAM PO Last administered on 12/14/18 07:54; Admin Dose 2 MG; Start 12/13/18 at 09:00 Ampicillin Sodium/ Sulbactam Sodium 50 ml @ 100 mls/hr Q12 IVPB Last administe red on 12/13/18at 14:10; Admin Dose 100 MLS/HR; Start 12/13/18 at 13:00 Insulin Aspart (Novolog Insulin Pen) 3 unit AC LUNCH DINNER SC Last administered on 12/14/18at 12:33; Admin Dose 3 UNIT; Start 12/13/18 at 17:30 Sodium Bicarbonate 50 meq/Dextrose 1,000 ml @ 40 mls/hr Q24H IV ; Start 12/13/18 at 17:30; Stop 12/14/18 at 18:29 Tacrolimus (Prograf) 1 mg QHS PO Last administered on 12/13/18at 22:03; Admin Dose 1 MG; Start 12/13/18 at 21:00 Insulin Aspart (Novolog Insulin Pen) 3 unit AC BREAKFAST SC ; Start 12/15/18 at 07:00 Insulin Aspart (Novolog Insulin Pen) NOVOLOG *MILD* ALGORITHM AC DINNER BEDTIME SC ; Start 12/14/18 at 17:30 Insulin Aspart (Novolog Insulin Pen) NOVOLOG *CUSTOM* ALGORITHM AC BREAKFAST LUNCH SC ; Start 12/15/18 at 07:00 Escitalopram Oxalate (Lexapro) 10 mg DAILY PO ; Start 12/14/18 at 14:00 LETI RODRIGUEZ Dec 14, 2018 14:13
[2018-12-14] MEDS: ESCITALOPRAM 10 MG TAB PO SCH (14:41)
[2018-12-14] MEDS: ONDANSETRON 4 MG INJ IV PRN ×2 (16:27→23:07)
[2018-12-14] MEDS: SODIUM BICARBONATE (IV ADD) 50 MEQ in DEXTROSE 5% 950 ML IV SCH (17:30)
--- NOTE | 2018-12-14 17:46 | NUR ---
RN notes patient awake in bed, aox4 able to make needs known, due medications given. pt had c/o pain, managed well with pain medications and relaxation technique, pt to be transferred to [facility] CM working on the case. pt aware with POC. stable at this time, will endorse
[2018-12-14] MEDS: INSULIN GLARGINE [LANTus] (100 UNITS/ML) SYG SC SCH (19:58)
[2018-12-14] MEDS: TAMSULOSIN (SR) 0.4 MG CAP PO SCH (21:08)
[2018-12-14] MEDS ORDERED: morphine LIQ (10 MG/5 ML) CUP PO PRN (23:00)
[2018-12-15] VITALS (11 sets, daily range): BP systolic 114–130; BP diastolic 44–56; PULSE 71–103; RESP 18–19
[2018-12-15] MEDS: AMPICILLIN/SULB 1.5GM/NS (PMX) 50 ML IVPB SCH ×3 (00:40→21:40)
[2018-12-15] MEDS: ACCU-CHEK XX SCH (01:23)
--- NOTE | 2018-12-15 01:55 | NUR ---
Sharona from [facility] called re update on pt status . she said there is no bed and CM will work on it tomorrow.
--- NOTE | 2018-12-15 06:03 | NUR ---
eoss; pt states feeling weak refusing some of his meds. on 24h urine collection for creat clearance started 12/15 and due 12/16 @ 0100. plan transfer to [facility] when CM arrange transfer. tele shows SR/stach. will continue to monitor.
[2018-12-15] MEDS: INSULIN ASPART [NOVOLOG] 3 ML PEN SC SCH ×7 (07:00→22:30)
[2018-12-15] MEDS: HEPARIN 5,000 UNIT/1 ML VIAL SC SCH ×2 (07:54→21:00)
[2018-12-15] MEDS: FAMOTIDINE 20 MG TAB PO SCH (07:55)
[2018-12-15] MEDS: AMLODIPINE 10 MG TAB PO SCH (07:55)
[2018-12-15] MEDS: predniSONE 5 MG TAB PO SCH (07:55)
[2018-12-15] MEDS: ESCITALOPRAM 10 MG TAB PO SCH (07:55)
[2018-12-15] MEDS: TACROLIMUS 1 MG CAP PO SCH ×2 (07:56→21:18)
[2018-12-15] MEDS: NPH, HUMAN INSULIN ISOPHANE 3ML VIAL SC SCH (08:02)
--- NOTE | 2018-12-15 08:52 | CONS ---
Consult Date/Type/Reason Admit Date/Time Dec 09, 2018 at 14:30 Initial Consult Date 12/10/18 Type of Consultation: Urology Reason for Consultation Mild hydronephrosis of the transplanted kidney Requesting Provider: HARVINDER BLOOD MD Date/Time of Note DATE: 12/15/18 TIME: 08:47 Subjective Patient denies having any pain and states that he is voiding well. Objective Vitals Vital Signs Date Temp Pulse Resp B/P (MAP) Pulse Ox O2 O2 Flow FiO2 Time Delivery Rate 12/15/18 77 04:00 12/15/18 97.9 18 122/55 98 03:56 (77) 12/13/18 Nasal 2.0 01:59 Cannula Intake and Output 12/14/18 12/14/18 12/15/18 1515:00 23:00 07:00 IntakeIntake Total 700 ml 130 ml OutputOutput Total 730 ml 200 ml BalanceBalance -30 ml -70 ml Exam The abdomen is soft and there is no suprapubic tenderness. Results/Medications Result Diagram: 12/15/18 0544 12/15/18 0544 Results 24 hrs Laboratory Tests Test 12/14/18 12:27 12/14/18 17:11 12/14/18 19:57 12/15/18 01:06 Bedside Glucose 177 126 170 Urine Eosinophils % 0.0 Test 12/15/18 05:44 12/15/18 07:51 White Blood Count 4.4 #L Red Blood Count 2.67 L Hemoglobin 8.8 L Hematocrit 27.8 L Mean Corpuscular 104.1 H Volume Mean Corpuscular 33.0 Hemoglobin Mean Corpuscular 31.7 L Hemoglobin Concent Red Cell 12.7 Distribution Width Platelet Count 192 Mean Platelet Volume 10.0 Immature 0.700 H Granulocytes % Neutrophils % 72.8 Lymphocytes % 15.9 Monocytes % 9.4 Eosinophils % 0.7 Basophils % 0.5 Nucleated Red Blood 0.0 Cells % Immature 0.030 Granulocytes # Neutrophils # 3.2 Lymphocytes # 0.7 L Monocytes # 0.4 Eosinophils # 0.0 Basophils # 0.0 Nucleated Red Blood 0.0 Cells # Sodium Level 138 Potassium Level 5.6 H Chloride Level 116 H Carbon Dioxide Level 15 L Anion Gap 7 Blood Urea Nitrogen 46 H Creatinine 4.34 H Est Glomerular 14 L Filtrat Rate mL/min Glucose Level 129 Calcium Level 9.7 Bedside Glucose 115 Home Meds Reported Medications Sitagliptin* (Januvia*) 50 Mg Tablet, 50 MG PO DAILY, #30 TAB 12/09/18 Tacrolimus* (Tacrolimus*) 1 Mg Capsule, 3 MG PO QAM, CAP 12/09/18 Tacrolimus* (Tacrolimus*) 1 Mg Capsule, 2 MG PO QHS, CAP 12/09/18 Mycophenolate Sodium* (Mycophenolic Acid*) 180 Mg Tablet.dr, 540 MG PO Q12, TAB 12/09/18 Prednisone* (Prednisone*) 5 Mg Tab, 5 MG PO DAILY, TAB 12/09/18 Glipizide* (Glipizide*) 5 Mg Tablet, 5 MG PO AC BREAKFAST DINNER, TAB 12/09/18 Clonidine Hcl* (Clonidine Hcl*) 0.1 Mg Tab, 0.1 MG PO DAILY, TAB 12/09/18 Insulin Lispro (Humalog) 100 Unit/1 Ml Cartridge, 0 SQ SLIDING SCALE, EA INSURANECE NOT COVERED THIS INSULIN 09/23/18 Discontinued Reported Medications Atorvastatin Calcium (Atorvastatin Calcium) 10 Mg Tablet, 10 MG PO QHS, #30 TAB 09/23/18 Prednisone* (Prednisone*) 5 Mg Tab, 5 MG PO DAILY, TAB 09/23/18 Metoclopramide* (Reglan*) 10 Mg Tablet, 10 MG PO NEEDED, TAB 09/23/18 Glipizide* (Glipizide*) 5 Mg Tablet, 5 MG PO AC BREAKFAST DINNER, TAB 09/23/18 Sitagliptin* (Januvia*) 50 Mg Tablet, 50 MG PO DAILY, #30 TAB 09/23/18 Tacrolimus* (Tacrolimus*) 0.5 Mg Capsule, 2 MG PO Q12, CAP 09/23/18 Clonidine Hcl* (Clonidine Hcl*) 0.1 Mg Tab, 0.1 MG PO DAILY, TAB 09/23/18 Discontinued Scripts Ondansetron (Ondansetron Odt) 4 Mg Tab.rapdis, 4 MG PO Q6H PRN for NAUSEA AND/OR VOMITING, #10 TAB Prov:LIZ OCHOA MD 09/23/18 Aspirin (Aspirin) 81 Mg Chew, 81 MG PO DAILY for 30 Days, TAB Prov:LETI RODRIGUEZ 04/10/18 Mycophenolate Sodium* (Myfortic*) 180 Mg Tab, 540 MG PO BID for 30 Days, TAB Prov:LETI RODRIGUEZ 05/09/17 Medications Current Medications Prednisone (Prednisone) 5 mg DAILY PO Last administered on 12/15/18at 07:55; Admin Dose 5 MG; Start 12/10/18 at 09:00 Diagnostic Test (Pha) (Accu-Chek) 1 ea 02 XX Last administered on 12/12/18at 02:14; Admin Dose 1 EA; Start 12/10/18 at 02:00 Ondansetron HCl (Zofran Inj) 4 mg Q6H PRN IV NAUSEA/VOMITING Last administered on 12/14/18at 23:07; Admin Dose 4 MG; Start 12/09/18 at 18:30 Acetaminophen (Tylenol Tab) 650 mg Q6H PRN PO .PAIN 1-3 OR TEMP Last administered on 12/09/18at 22:14; Admin Dose 650 MG; Start 12/09/18 at 18:30 Docusate Sodium (Colace) 100 mg Q12H PRN PO .CONSTIPATION; Start 12/09/18 at 18:30 Bisacodyl (Dulcolax) 5 mg DAILY PRN PO .CONSTIPATION; Start 12/09/18 at 18:30 Famotidine (Pepcid) 20 mg DAILY PO Last administered on 12/15/18at 07:55; Admin Dose 20 MG; Start 12/09/18 at 21:00 Heparin Sodium (Porcine) (Heparin (5000 Units/1ml)) 5,000 unit Q12 SC ; Start 12/09/18 at 21:00 Miscellaneous Information 1 ea NOTE XX ; Start 12/09/18 at 18:30 Glucose (Glutose) 15 gm Q15M PRN PO DECREASED GLUCOSE; Start 12/09/18 at 18:30 Glucose (Glutose) 22.5 gm Q15M PRN PO DECREASED GLUCOSE; Start 12/09/18 at 18:30 Dextrose (D50w Syringe) 25 ml Q15M PRN IV DECREASED GLUCOSE; Start 12/09/18 at 18:30 Dextrose (D50w Syringe) 50 ml Q15M PRN IV DECREASED GLUCOSE; Start 12/09/18 at 18:30 Glucagon (Glucagen) 1 mg Q15M PRN IM DECREASED GLUCOSE; Start 12/09/18 at 18:30 Glucose (Glutose) 15 gm Q15M PRN BUCCAL DECREASED GLUCOSE; Start 12/09/18 at 18:30 Hydralazine HCl (Apresoline) 20 mg Q4 PRN IV SBP > 160 Last administered on 12/09 21:32; Admin Dose 20 MG; Start 12/09/18 at 21:00 Clonidine (Catapres) 0.1 mg Q6H PRN PO SBP> 160 Last administered on 12/09/18 22:14; Admin Dose 0.1 MG; Start 12/09/18 at 21:00 Amlodipine Besylate (Norvasc) 10 mg DAILY PO Last administered on 12/15/18 07:55; Admin Dose 10 MG; Start 12/09/18 at 21:00 Zolpidem Tartrate (Ambien) 5 mg HS PRN PO INSOMNIA; Start 12/09/18 at 23:30 Acetaminophen/ Hydrocodone Bitart ([place] (10/325)) 1 tab Q6H PRN PO MODERATE PAIN LEVEL 4-6 Last administered on 12/14/18 13:33; Admin Dose 1 TAB; Start 12/10/18 at 19:00 Clonidine (Catapres) 0.1 mg BID PO Last administered on 12/15/18 07:56; Admin Dose 0.1 MG; Start 12/10/18 at 21:00 Hydralazine HCl (Apresoline) 25 mg Q8 PO Last administered on 12/15/18 05:46; Admin Dose 25 MG; Start 12/10/18 at 22:00 Tamsulosin HCl (Flomax) 0.4 mg HS PO Last administered on 12/14/18 21:08; Admin Dose 0.4 MG; Start 12/10/18 at 21:00 Insulin Human NPH (Humulin N) 4 unit DAILY@0900 SC Last administered on 12/15/18 08:02; Admin Dose 4 UNIT; Start 12/12/18 at 09:00 Insulin Glargine (Lantus) 8 units DAILY@2000 SC Last administered on 12/13/18 22:02; Admin Dose 8 UNITS; Start 12/12/18 at 20:00 Tacrolimus (Prograf) 2 mg QAM PO Last administered on 12/15/18 07:56; Admin Dose 2 MG; Start 12/13/18 at 09:00 Ampicillin Sodium/ Sulbactam Sodium 50 ml @ 100 mls/hr Q12 IVPB Last administered on 12/15/18at 07:56; Admin Dose 100 MLS/HR; Start 12/13/18 at 13:00 Insulin Aspart (Novolog Insulin Pen) 3 unit AC LUNCH DINNER SC Last administered on 12/14/18at 12:33; Admin Dose 3 UNIT; Start 12/13/18 at 17:30 Tacrolimus (Prograf) 1 mg QHS PO Last administered on 12/14/18at 21:08; Admin Dose 1 MG; Start 12/13/18 at 21:00 Insulin Aspart (Novolog Insulin Pen) 3 unit AC BREAKFAST SC Last administered on 12/15/18at 08:01; Admin Dose 3 UNIT; Start 12/15/18 at 07:00 Insulin Aspart (Novolog Insulin Pen) NOVOLOG *MILD* ALGORITHM AC DINNER BEDTIME SC ; Start 12/14/18 at 17:30 Insulin Aspart (Novolog Insulin Pen) NOVOLOG *CUSTOM* ALGORITHM AC BREAKFAST LUNCH SC ; Start 12/15/18 at 07:00 Escitalopram Oxalate (Lexapro) 10 mg DAILY PO Last administered on 12/15/18at 07:55; Admin Dose 10 MG; Start 12/14/18 at 14:00 Morphine Sulfate (morphine) 6 mg Q4H PRN PO SEVERE PAIN LEVEL 7-10; Start 12/14/18 at 23:[address] scan of the abdomen and pelvis: FINDINGS: In the absence of intravenous contrast, the study constitutes a limited assessment of the solid organs, bowel and vessels. Lower thorax: Trace bilateral pleural effusions with mild associated atelectatic changes. Small hiatal hernia. Coronary artery calcifications are partially visualized. Liver: Normal. Bile Ducts: Normal Gallbladder: Mild diffuse wall thickening, nonspecific in the setting of free fluid. Pancreas: Normal. Spleen: Normal. Adrenal Glands: Normal. Kidneys/Ureters: Bilateral [place] kidneys are atrophic and largely calcified. Prominence of the left greater than right distal [place] ureters, similar in appearance to the baseline available exam on 01/12/2013. Right iliac fossa transplant kidney. There is mild prominence and wall thickening of the transplant collecting system similar to at least 08/13/2017, with decreased surrounding soft tissue stranding. Bladder: Normal. Reproductive organs: Hydrocele. Calcification of the vas deferens, a finding seen in association with diabetes. Prostate gland is normal in size. Gastrointestinal Tract: Apparent periampullary duodenal diverticulum. Moderate amount of stool in the colon. Gas filled appendix without findings to suggest appendicitis. Peritoneum/Retroperitoneum: Small to moderate amount of intraperitoneal free fluid. Diffuse mesenteric edema. Lymph nodes: No gross adenopathy. Vessels: Atherosclerotic calcifications of the aorta and its branches, particularly of the splenic artery and branches of the SMA. Musculoskeletal: Diffusely increased sclerosis of the osseous structures compatible with renal osteodystrophy. Mild multilevel degenerative changes of the visualized spine, and hips. Scattered soft tissue calcifications are present. Assessment/Plan Hospital Course (Demo Recall) This is a 58-year-old male with a past medical history of cadaveric kidney transplant in 2009, on Tacrolimus , prednisone 5 mg daily, rheumatoid arthritis, HCV infection, history of digital right 4th toe gangrene, history of diabetes with CKD III due to diabetic nephropathy, history of severe peripheral arterial disease, multiple small digital amputations, hypertension, who came to the emerg ency department complaining of right 3rd finger necrosis. The patient said that the symptoms started 4 days ago and the skin darkening progressed over the last couple of days. On admission the blood sugar was 500, sodium 134, potassium 6.1, bicarbonate 18, BUN of 48, creatinine of 3.21. The patient's baseline creatinine is 1.5 and that has been going gradually up since 2017. Patient stated that he had an appointment at [facility] on December 11, 2018 to have biopsy of the kidney transplant because of the rising creatinine. He underwent a renal ultrasound and that showed that the transplanted kidney is a little hydronephrotic. Therefore a urological consultation was requested. Patient states that he does have nocturia about 3 times a night and during the day he voids 4-5 times. He denies any dysuria. He states his urinary stream is strong and there is no gross hematuria. He denies any history of urinary tract infection. The patient does have severe atherosclerosis of his vessels. He does have peripheral vascular disease. His creatinine has been going up gradually and he was supposed to go to [facility] to undergo biopsy of his transplanted kidney. The ultrasound that he had did show a small right hydronephrosis and that is not unusual to see that in the transplanted kidney especially when the bladder is full. The patient does void and the postvoid residual ranged between 64 and 98 mL. We will try to recheck his postvoid residual again Plan is to continue to treat the infection and encourage him to double urinate to help empty his bladder better. RAMILA GONZALEZ MD Dec 15, 2018 08:51
[2018-12-15] MEDS: HYDROCODONE/APAP (10/325) TAB PO PRN ×2 (08:55→18:54)
[2018-12-15] MEDS ORDERED: NA BICARBONATE 8.4% 50 ML SYG IV ONE ×2 (10:30→12:00)
--- NOTE | 2018-12-15 10:51 | CONS ---
Consult Date/Type/Reason Admit Date/Time Dec 09, 2018 at 14:30 Initial Consult Date 12/10/18 Type of Consultation: Urology Requesting Provider: HARVINDER BLOOD MD Date/Time of Note DATE: 12/15/18 TIME: 10:51 Subjective VS reviewed Objective Vitals Vital Signs Date Temp Pulse Resp B/P (MAP) Pulse Ox O2 O2 Flow FiO2 Time Delivery Rate 12/15/18 103 08:01 12/15/18 97.9 18 122/55 98 03:56 (77) 12/13/18 Nasal 2.0 01:59 Cannula Intake and Output 12/14/18 12/14/18 12/15/18 1515:00 23:00 07:00 IntakeIntake Total 700 ml 130 ml OutputOutput Total 730 ml 200 ml BalanceBalance -30 ml -70 ml Results/Medications Result Diagram: 12/15/18 0544 12/15/18 0544 Results 24 hrs Laboratory Tests Test 12/14/18 12:27 12/14/18 17:11 12/14/18 19:57 12/15/18 01:06 Bedside Glucose 177 126 170 Urine Eosinophils % 0.0 Test 12/15/18 05:44 12/15/18 07:51 White Blood Count 4.4 #L Red Blood Count 2.67 L Hemoglobin 8.8 L Hematocrit 27.8 L Mean Corpuscular 104.1 H Volume Mean Corpuscular 33.0 Hemoglobin Mean Corpuscular 31.7 L Hemoglobin Concent Red Cell 12.7 Distribution Width Platelet Count 192 Mean Platelet Volume 10.0 Immature 0.700 H Granulocytes % Neutrophils % 72.8 Lymphocytes % 15.9 Monocytes % 9.4 Eosinophils % 0.7 Basophils % 0.5 Nucleated Red Blood 0.0 Cells % Immature 0.030 Granulocytes # Neutrophils # 3.2 Lymphocytes # 0.7 L Monocytes # 0.4 Eosinophils # 0.0 Basophils # 0.0 Nucleated Red Blood 0.0 Cells # Sodium Level 138 Potassium Level 5.6 H Chloride Level 116 H Carbon Dioxide Level 15 L Anion Gap 7 Blood Urea Nitrogen 46 H Creatinine 4.34 H Est Glomerular 14 L Filtrat Rate mL/min Glucose Level 129 Calcium Level 9.7 Bedside Glucose 115 Home Meds Reported Medications Sitagliptin* (Januvia*) 50 Mg Tablet, 50 MG PO DAILY, #30 TAB 12/09/18 Tacrolimus* (Tacrolimus*) 1 Mg Capsule, 3 MG PO QAM, CAP 12/09/18 Tacrolimus* (Tacrolimus*) 1 Mg Capsule, 2 MG PO QHS, CAP 12/09/18 Mycophenolate Sodium* (Mycophenolic Acid*) 180 Mg Tablet.dr, 540 MG PO Q12, TAB 12/09/18 Prednisone* (Prednisone*) 5 Mg Tab, 5 MG PO DAILY, TAB 12/09/18 Glipizide* (Glipizide*) 5 Mg Tablet, 5 MG PO AC BREAKFAST DINNER, TAB 12/09/18 Clonidine Hcl* (Clonidine Hcl*) 0.1 Mg Tab, 0.1 MG PO DAILY, TAB 12/09/18 Insulin Lispro (Humalog) 100 Unit/1 Ml Cartridge, 0 SQ SLIDING SCALE, EA INSURANECE NOT COVERED THIS INSULIN 09/23/18 Discontinued Reported Medications Atorvastatin Calcium (Atorvastatin Calcium) 10 Mg Tablet, 10 MG PO QHS, #30 TAB 09/23/18 Prednisone* (Prednisone*) 5 Mg Tab, 5 MG PO DAILY, TAB 09/23/18 Metoclopramide* (Reglan*) 10 Mg Tablet, 10 MG PO NEEDED, TAB 09/23/18 Glipizide* (Glipizide*) 5 Mg Tablet, 5 MG PO AC BREAKFAST DINNER, TAB 09/23/18 Sitagliptin* (Januvia*) 50 Mg Tablet, 50 MG PO DAILY, #30 TAB 09/23/18 Tacrolimus* (Tacrolimus*) 0.5 Mg Capsule, 2 MG PO Q12, CAP 09/23/18 Clonidine Hcl* (Clonidine Hcl*) 0.1 Mg Tab, 0.1 MG PO DAILY, TAB 09/23/18 Discontinued Scripts Ondansetron (Ondansetron Odt) 4 Mg Tab.rapdis, 4 MG PO Q6H PRN for NAUSEA AND/OR VOMITING, #10 TAB Prov:LIZ OCHOA MD 09/23/18 Aspirin (Aspirin) 81 Mg Chew, 81 MG PO DAILY for 30 Days, TAB Prov:LETI RODRIGUEZ 04/10/18 Mycophenolate Sodium* (Myfortic*) 180 Mg Tab, 540 MG PO BID for 30 Days, TAB Prov:LETI RODRIGUEZ 05/09/17 Medications Current Medications Prednisone (Prednisone) 5 mg DAILY PO Last administered on 12/15/18at 07:55; Admin Dose 5 MG; Start 12/10/18 at 09:00 Diagnostic Test (Pha) (Accu-Chek) 1 ea 02 XX Last administered on 12/12/18at 02:14; Admin Dose 1 EA; Start 12/10/18 at 02:00 Ondansetron HCl (Zofran Inj) 4 mg Q6H PRN IV NAUSEA/VOMITING Last administered on 12/14/18at 23:07; Admin Dose 4 MG; Start 12/09/18 at 18:30 Acetaminophen (Tylenol Tab) 650 mg Q6H PRN PO .PAIN 1-3 OR TEMP Last administered on 12/09/18at 22:14; Admin Dose 650 MG; Start 12/09/18 at 18:30 Docusate Sodium (Colace) 100 mg Q12H PRN PO .CONSTIPATION; Start 12/09/18 at 18:30 Bisacodyl (Dulcolax) 5 mg DAILY PRN PO .CONSTIPATION; Start 12/09/18 at 18:30 Famotidine (Pepcid) 20 mg DAILY PO Last administered on 12/15/18at 07:55; Admin Dose 20 MG; Start 12/09/18 at 21:00 Heparin Sodium (Porcine) (Heparin (5000 Units/1ml)) 5,000 unit Q12 SC ; Start 12/09/18 at 21:00 Miscellaneous Information 1 ea NOTE XX ; Start 12/09/18 at 18:30 Glucose (Glutose) 15 gm Q15M PRN PO DECREASED GLUCOSE; Start 12/09/18 at 18:30 Glucose (Glutose) 22.5 gm Q15M PRN PO DECREASED GLUCOSE; Start 12/09/18 at 18:30 Dextrose (D50w Syringe) 25 ml Q15M PRN IV DECREASED GLUCOSE; Start 12/09/18 at 18:30 Dextrose (D50w Syringe) 50 ml Q15M PRN IV DECREASED GLUCOSE; Start 12/09/18 at 18:30 Glucagon (Glucagen) 1 mg Q15M PRN IM DECREASED GLUCOSE; Start 12/09/18 at 18:30 Glucose (Glutose) 15 gm Q15M PRN BUCCAL DECREASED GLUCOSE; Start 12/09/18 at 18:30 Hydralazine HCl (Apresoline) 20 mg Q4 PRN IV SBP > 160 Last administered on 12/09/18 21:32; Admin Dose 20 MG; Start 12/09/18 at 21:00 Clonidine (Catapres) 0.1 mg Q6H PRN PO SBP> 160 Last administered on 12/09/18 22:14; Admin Dose 0.1 MG; Start 12/09/18 at 21:00 Amlodipine Besylate (Norvasc) 10 mg DAILY PO Last administered on 12/15/18 07:55; Admin Dose 10 MG; Start 12/09/18 at 21:00 Zolpidem Tartrate (Ambien) 5 mg HS PRN PO INSOMNIA; Start 12/09/18 at 23:30 Acetaminophen/ Hydrocodone Bitart ([place] (10)) 1 tab Q6H PRN PO MODERATE PAIN LEVEL 4-6 Last administered on 12/15/18 08:55; Admin Dose 1 TAB; Start 12/10/18 at 19:00 Clonidine (Catapres) 0.1 mg BID PO Last administered on 12/15/18 07:56; Admin Dose 0.1 MG; Start 12/10/18 at 21:00 Hydralazine HCl (Apresoline) 25 mg Q8 PO Last administered on 12/15/18 05:46; Admin Dose 25 MG; Start 12/10/18 at 22:00 Tamsulosin HCl (Flomax) 0.4 mg HS PO Last administered on 12/14/18 21:08; Admin Dose 0.4 MG; Start 12/10/18 at 21:00 Insulin Human NPH (Humulin N) 4 unit DAILY@0900 SC Last administered on 12/15/18 08:02; Admin Dose 4 UNIT; Start 12/12/18 at 09:00 Insulin Glargine (Lantus) 8 units DAILY@2000 SC Last administered on 12/13/18 22:02; Admin Dose 8 UNITS; Start 12/12/18 at 20:00 Ampicillin Sodium/ Sulbactam Sodium 50 ml @ 100 mls/hr Q12 IVPB Last administered on 12/15/18 07:56; Admin Dose 100 MLS/HR; Start 12/13/18 at 13:00 Insulin Aspart (Novolog Insulin Pen) 3 unit AC LUNCH DINNER SC Last administered on 2/11/19at 12:33; Admin Dose 3 UNIT; Start 12/13/18 at 17:30 Tacrolimus (Prograf) 1 mg QHS PO Last administered on 12/14/18at 21:08; Admin Dose 1 MG; Start 12/13/18 at 21:00 Insulin Aspart (Novolog Insulin Pen) 3 unit AC BREAKFAST SC Last administered on 12/15/18at 08:01; Admin Dose 3 UNIT; Start 12/15/18 at 07:00 Insulin Aspart (Novolog Insulin Pen) NOVOLOG *MILD* ALGORITHM AC DINNER BEDTIME SC ; Start 12/14/18 at 17:30 Insulin Aspart (Novolog Insulin Pen) NOVOLOG *CUSTOM* ALGORITHM AC BREAKFAST LUNCH SC ; Start 12/15/18 at 07:00 Escitalopram Oxalate (Lexapro) 10 mg DAILY PO Last administered on 12/15/18at 07:55; Admin Dose 10 MG; Start 12/14/18 at 14:00 Morphine Sulfate (morphine) 6 mg Q4H PRN PO SEVERE PAIN LEVEL 7-10; Start 12/14/18 at 23:00 Tacrolimus (Prograf) 1 mg QAM PO ; Start 12/16/18 at 09:00 Miscellaneous Information (* Miscellaneous Pharmacy Order) GIVE VELTASSA 16.8 GM X1 ONCE XX ; Start 12/15/18 at 10:30 Patiromer (Veltassa) 16.8 gm ONCE PO ; Start 12/15/18 at 11:00; Stop 12/15/18 at 11:01 RAQUEL BAIRES MD Dec 15, 2018 10:51
[2018-12-15] MEDS ORDERED: PATIROMER CALCIUM SORBITEX 16.8 GM PKT PO SCH (11:00)
--- NOTE | 2018-12-15 12:00 | NUR ---
case management note followed up with Tegan Wells ext [phone] left a message to her voicemail to contact Mayra of [facility] PN: [phone] in regard to the transfer to [facility], cm will continue to follow up.
--- NOTE | 2018-12-15 12:31 | CONS ---
Assessment/Plan Assessment/Plan Assessment/Plan (Daily) 8 y/o with #. Acute on chronic renal failure, spoke to [facility] Cr was 2.5 in 10/20 now 3.19> 3.9 culd be due to sepsis vs ATN due to sepsis/meds vs prograft toxicity vs mild hydro; Cr continue to rise. Pt also has underlying DM nephropathy ;hold myfortic due to bacterimia;dec Prograft already to 2/2 from 3/2 Levels 12m resend new levels , Cr continue to rise # Hyperkalemia, could be secondary to uncontrolled sugars/worsening renal failure/acidosis , vs prograft , dose reduced #. Non gap Metabolic acidosis.due to worsening renal failure #. Sepsis # Right middle finger cellulitis with gangrene. # Status post donor renal transplantation in 2009. # Hypertension. #. Right 4th toe gangrene. #. Severe peripheral vascular disease. #. History of Juan's esophagitis. #. Chronic hepatitis C virus infection. # History of polysubstance use. #. DM type II Assessment/Plan (Daily) -We will again give Veltassa for hyperkalemia. -We will start the patient on bicarb drip patient had refused it yesterday we will do it again patient agreed -Dose reduce Prograft 11/03 -Nichole, and agreed -We will need sw worker consult to address for depression will need psych consult -he is refusing dialysis controlled currently said that he would go back to [place] if he needs to be started on dialysis need to address depression issues. Spoke to PMD -Monitor potassium, urine output, patient might need hemodialysis in the next 24 hours - Hold Myfortic due to staph bacteremia. Continue with prednisone -ID to renally dose all antibiotics -Continue with Flomax , urology following -Patient will likely need kidney biopsy patient also has history of Prograf toxicity unable to monitor Prograf levels in [facility] as it takes 4 days for the levels to come back need to be transferred to higher level of care for further monitoring and possible kidney biopsy and immunosuppression with -spoke the patient at the bedside, so spoke to the nurse coordinator Christa at [facility], spoke to the dependency case manager still waiting for GUERDA between insurances patient needs to get transferred to higher level of care NOHEMY -Renally dose all meds -Avoid nephrotoxins -repeat blood cultures neg -DM control per primary Consultation Date/Type/Reason Admit Date/Time Dec 09, 2018 at 14:30 Initial Consult Date 12/10/18 Requesting Provider: HARVINDER BLOOD MD Date/Time of Note DATE: 12/15/18 TIME: 12:26 24 HR Interval Summary Free Text/Dictation Refused bicarb drip yesterday. Spoke to the patient today due to worsening renal failure, metabolic acidosis and the necessity to do bicarb drip, patient agreed Patient is also very depressed tearful said if he started on dialysis he wants to go back to [place], rest all his issues will also talk to social services counselor Still having urine output of 1 L Exam/Review of Systems Exam Vitals Vital Signs Date Temp Pulse Resp B/P (MAP) Pulse Ox O2 O2 Flow FiO2 Time Delivery Rate 12/15/18 103 08:01 12/15/18 97.9 18 122/55 98 03:56 (77) 12/13/18 Nasal 2.0 01:59 Cannula Intake and Output 12/14/18 12/14/18 12/15/18 1414:59 22:59 06:59 IntakeIntake Total 500 ml 700 ml 130 ml OutputOutput Total 100 ml 730 ml 200 ml BalanceBalance 400 ml -30 ml -70 ml Exam Constitutional: alert, oriented Respiratory: clear to auscultation Cardiovascular: regular rate and rhythm Gastrointestinal: soft Left flank tenderness Gangrene Results Result Diagram: 12/15/18 0544 12/15/18 0544 Results 24hrs Laboratory Tests Test 12/14/18 12:27 12/14/18 17:11 12/14/18 19:57 12/15/18 01:06 Bedside Glucose 177 126 170 Urine Eosinophils % 0.0 Test 12/15/18 05:44 12/15/18 07:51 12/15/18 12:24 White Blood Count 4.4 #L Red Blood Count 2.67 L Hemoglobin 8.8 L Hematocrit 27.8 L Mean Corpuscular 104.1 H Volume Mean Corpuscular 33.0 Hemoglobin Mean Corpuscular 31.7 L Hemoglobin Concent Red Cell 12.7 Distribution Width Platelet Count 192 Mean Platelet Volume 10.0 Immature 0.700 H Granulocytes % Neutrophils % 72.8 Lymphocytes % 15.9 Monocytes % 9.4 Eosinophils % 0.7 Basophils % 0.5 Nucleated Red Blood 0.0 Cells % Immature 0.030 Granulocytes # Neutrophils # 3.2 Lymphocytes # 0.7 L Monocytes # 0.4 Eosinophils # 0.0 Basophils # 0.0 Nucleated Red Blood 0.0 Cells # Sodium Level 138 Potassium Level 5.6 H Chloride Level 116 H Carbon Dioxide Level 15 L Anion Gap 7 Blood Urea Nitrogen 46 H Creatinine 4.34 H Est Glomerular 14 L Filtrat Rate mL/min Glucose Level 129 Calcium Level 9.7 Bedside Glucose 115 178 Medications Medication Current Medications Prednisone (Prednisone) 5 mg DAILY PO Last administered on 12/15/18 07:55; Admin Dose 5 MG; Start 12/10/18 at 09:00 Diagnostic Test (Pha) (Accu-Chek) 1 ea 02 XX Last administered on 12/12/18at 02:14; Admin Dose 1 EA; Start 12/10/18 at 02:00 Ondansetron HCl (Zofran Inj) 4 mg Q6H PRN IV NAUSEA/VOMITING Last administered on 12/14/18 23:07; Admin Dose 4 MG; Start 12/09/18 at 18:30 Acetaminophen (Tylenol Tab) 650 mg Q6H PRN PO .PAIN 1-3 OR TEMP Last administered on 12/09/18at 22:14; Admin Dose 650 MG; Start 12/09/18 at 18:30 Docusate Sodium (Colace) 100 mg Q12H PRN PO .CONSTIPATION; Start 12/09/18 at 18:30 Bisacodyl (Dulcolax) 5 mg DAILY PRN PO .CONSTIPATION; Start 12/09/18 at 18:30 Famotidine (Pepcid) 20 mg DAILY PO Last administered on 12/15/18at 07:55; Admin Dose 20 MG; Start 12/09/18 at 21:00 Heparin Sodium (Porcine) (Heparin (5000 Units/1ml)) 5,000 unit Q12 SC ; Start 12/09/18 at 21:00 Miscellaneous Information 1 ea NOTE XX ; Start 12/09/18 at 18:30 Glucose (Glutose) 15 gm Q15M PRN PO DECREASED GLUCOSE; Start 12/09/18 at 18:30 Glucose (Glutose) 22.5 gm Q15M PRN PO DECREASED GLUCOSE; Start 12/09/18 at 18:30 Dextrose (D50w Syringe) 25 ml Q15M PRN IV DECREASED GLUCOSE; Start 12/09/18 at 18:30 Dextrose (D50w Syringe) 50 ml Q15M PRN IV DECREASED GLUCOSE; Start 12/09/18 at 18:30 Glucagon (Glucagen) 1 mg Q15M PRN IM DECREASED GLUCOSE; Start 12/09/18 at 18:30 Glucose (Glutose) 15 gm Q15M PRN BUCCAL DECREASED GLUCOSE; Start 12/09/18 at 18:30 Hydralazine HCl (Apresoline) 20 mg Q4 PRN IV SBP > 160 Last administered on 12/09/18 21:32; Admin Dose 20 MG; Start 12/09/18 at 21:00 Clonidine (Catapres) 0.1 mg Q6H PRN PO SBP> 160 Last administered on 12/09/18 22:14; Admin Dose 0.1 MG; Start 12/09/18 at 21:00 Amlodipine Besylate (Norvasc) 10 mg DAILY PO Last administered on 12/15/18 07:55; Admin Dose 10 MG; Start 12/09/18 at 21:00 Zolpidem Tartrate (Ambien) 5 mg HS PRN PO INSOMNIA; Start 12/09/18 at 23:30 Acetaminophen/ Hydrocodone Bitart ([place] (10/325)) 1 tab Q6H PRN PO MODERATE PAIN LEVEL 4-6 Last administered on 12/15/18 08:55; Admin Dose 1 TAB; Start 12/10/18 at 19:00 Clonidine (Catapres) 0.1 mg BID PO Last administered on 12/15/18 07:56; Admin Dose 0.1 MG; Start 12/10/18 at 21:00 Hydralazine HCl (Apresoline) 25 mg Q8 PO Last administered on 12/15/18 05:46; Admin Dose 25 MG; Start 12/10/18 at 22:00 Tamsulosin HCl (Flomax) 0.4 mg HS PO Last administered on 12/14/18 21:08; Admin Dose 0.4 MG; Start 12/10/18 at 21:00 Insulin Human NPH (Humulin N) 4 unit DAILY@0900 SC Last administered on 12/15/18 08:02; Admin Dose 4 UNIT; Start 12/12/18 at 09:00 Insulin Glargine (Lantus) 8 units DAILY@2000 SC Last administered on 12/13/18at 22:02; Admin Dose 8 UNITS; Start 12/12/18 at 20:00 Ampicillin Sodium/ Sulbactam Sodium 50 ml @ 100 mls/hr Q12 IVPB Last administered on 12/15/18at 07:56; Admin Dose 100 MLS/HR; Start 12/13/18 at 13:00 Insulin Aspart (Novolog Insulin Pen) 3 unit AC LUNCH DINNER SC Last administered on 12/14/18at 12:33; Admin Dose 3 UNIT; Start 12/13/18 at 17:30 Tacrolimus (Prograf) 1 mg QHS PO Last administered on 12/14/18at 21:08; Admin Dose 1 MG; Start 12/13/18 at 21:00 Insulin Aspart (Novolog Insulin Pen) 3 unit AC BREAKFAST SC Last administered on 12/15/18at 08:01; Admin Dose 3 UNIT; Start 12/15/18 at 07:00 Insulin Aspart (Novolog Insulin Pen) NOVOLOG *MILD* ALGORITHM AC DINNER BEDTIME SC ; Start 12/14/18 at 17:30 Insulin Aspart (Novolog Insulin Pen) NOVOLOG *CUSTOM* ALGORITHM AC BREAKFAST LUNCH SC ; Start 12/15/18 at 07:00 Escitalopram Oxalate (Lexapro) 10 mg DAILY PO Last administered on 12/15/18at 07:55; Admin Dose 10 MG; Start 12/14/18 at 14:00 Morphine Sulfate (morphine) 6 mg Q4H PRN PO SEVERE PAIN LEVEL 7-10; Start 12/14/18 at 23:00 Tacrolimus (Prograf) 1 mg QAM PO ; Start 12/16/18 at 09:00 Miscellaneous Information (* Miscellaneous Pharmacy Order) GIVE VELTASSA 16.8 GM X1 ONCE XX ; Start 12/15/18 at 10:30 Sodium Bicarbonate 50 meq/Dextrose 1,000 ml @ 40 mls/hr Q24H IV ; Start 12/15/18 at 13:00 HARVINDER BLOOD MD Dec 15, 2018 12:31
[2018-12-15] MEDS ORDERED: CA CHLORIDE 10% 10 ML SYRINGE IV STA (12:36)
--- NOTE | 2018-12-15 12:49 | NUR ---
case management note followed up with Fidel [phone] at the transplant center and made him aware that mary anne was provided to [facility],per Fidel he will contact abhinav yun and will follow up, he also made cm aware that hospital is at capacity and even after clearance (financial) they will have to have a bed before pt can be transfer, cm will continue to follow up.
[2018-12-15] MEDS ORDERED: SODIUM BICARBONATE (IV ADD) 50 MEQ in DEXTROSE 5% 1,000 ML IV SCH (13:00)
[2018-12-15] MEDS: ONDANSETRON 4 MG INJ IV PRN (13:02)
--- NOTE | 2018-12-15 14:37 | CONS ---
Assessment/Plan Assessment/Plan Hospital Course (Demo Recall) - Progressive swelling of distal aspect of right ring finger with x-ray showing further of erosion and lucency involving the distal aspect of the distal phalanx of the right ring finger suspicious for osteomyelitis with improved but slight associated soft tissue swelling - Hx OM of R 4th digit: swelling with new erosive changes and osteopenia of the underlying R 4th distal phalanx, suggestive of osteomyelitis; wound culture grew Serratia on 03/18/18 and Serratia + CoNS (likely colonizer) on 04/04/18 ; Pt declined amputation. ESR 39 on 03/18/2018. S/p Levaquin x 6 weeks - Bacteremia d/t MSSA 12/09/2018, repeat blood cx 12/12/18 NGTD - MRSA and K. pneumoniae in urine cx 12/09/2018 - UA was neg for pyuria - Hx mild subtle increased activity within the upper aspect of LUE, nonspecific, on WBC tagged scan on 04/05/2018 - Hx OM of R 3rd fingertip (XR showed periosteal reaction at the tip of R 3rd distal phalanx, suspicious for OM, MRI showed cellulitis of distal R 4th phalanx, without OM) and L 2nd fingertip (XR showed cortical irregularity at the tuft of L 2nd distal phalanx with overlying soft tissue defect, suggesting early OM, MRI showed OM at L 2nd distal phalanx with, cellulitis about L 2nd distal phalanx without drainable fluid collection.) - Hx OM of R 2nd finger s/p amputation at proximal phalanx neck, and h/o OM of L 3rd finger s/p amputation at middle and distal phalanges - Acute on chronic renal failure - Hyperkalemia with metabolic acidosis - Hx ESRD, was on HD - S/p renal transplant in 2009 (on tacrolimus, mycophenolate and prednisone), chronic renal insufficiency at baseline - DM - Hgb A1c 10.5% - Hx Juan's esophagus and gastritis s/p EGD on 08/12/2017. No H. pylori on Bx - BLE atherosclerosis - Seen by Vascular Surgery during last admit - Onychomycosis, tinea pedis - Seen by [employer] during last admit - Rheumatoid arthritis - Chronic HCV infection - HTN - Dyslipidemia - Hx polysubstance and IV drug use. - Anemia of chronic disease with h/o pernicious anemia - Hx hyperparathyroidism - Thrombosed graft of LUE - Depression Recommendations: - Continue renally dosed Unasyn (12/13/2018-) x6 week course - F/u repeat blood cultures 12/12/18 (NGTD) - Consider vasc surgery eval - Consider MRI - Serial ESR Management d/w patient, RN Tor, and with Dr. Olmstead Consultation Date/Type/Reason Admit Date/Time Dec 09, 2018 at 14:30 Initial Consult Date 12/10/18 Requesting Provider: HARVINDER BLOOD MD Date/Time of Note DATE: 12/15/18 TIME: 14:37 24 HR Interval Summary Free Text/Dictation Pt states "I feel sick". C/o generalized weakness, nausea but no vomiting. Currently denies pain. States has 3 children, "but they are all working". Reports sadness re: current medical condition. Chart reviewed; Attempting to transfer to [facility] to be followed by Renal Transplant Service Exam/Review of Systems Exam Vitals Vital Signs Date Temp Pulse Resp B/P (MAP) Pulse Ox O2 O2 Flow FiO2 Time Delivery Rate 12/15/18 97.7 79 18 130/56 100 Nasal 12:42 (80) Cannula 12/13/18 2.0 01:59 Intake and Output 12/14/18 12/14/18 12/15/18 1414:59 22:59 06:59 IntakeIntake Total 500 ml 700 ml 130 ml OutputOutput Total 100 ml 730 ml 200 ml BalanceBalance 400 ml -30 ml -70 ml Exam Constitutional: alert, oriented, well developed, frail, other (thin, cachectic) Psych: depression (started to become tearful; poor eye contact) Head: normocephalic, atraumatic ENMT: nl external ears & nose, nl nasal mucosa & septum Neck: supple Respiratory: clear to auscultation, normal air movement Cardiovascular: regular rate and rhythm, nl pulses; No edema Gastrointestinal: soft, distended, tender Musculoskeletal: other (LUE AVF graft site with no TTP, no bruit, no thrill) Extremities: normal pulses, other (partial amputation of R 2nd and 3rd fingers and L 2nd and 3rd fingers; [place] discoloration of R middle finger distally; R 3rd and 4th fingers are swollen); No edema 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: nl mental status, nl speech, nl strength Skin: nl turgor Results Result Diagram: 12/15/18 0544 12/15/18 0544 Results 24hrs Laboratory Tests Test 12/14/18 17:11 12/14/18 19:57 12/15/18 01:06 12/15/18 05:44 Bedside Glucose 126 170 Urine Eosinophils % 0.0 White Blood Count 4.4 #L Red Blood Count 2.67 L Hemoglobin 8.8 L Hematocrit 27.8 L Mean Corpuscular 104.1 H Volume Mean Corpuscular 33.0 Hemoglobin Mean Corpuscular 31.7 L Hemoglobin Concent Red Cell 12.7 Distribution Width Platelet Count 192 Mean Platelet Volume 10.0 Immature 0.700 H Granulocytes % Neutrophils % 72.8 Lymphocytes % 15.9 Monocytes % 9.4 Eosinophils % 0.7 Basophils % 0.5 Nucleated Red Blood 0.0 Cells % Immature 0.030 Granulocytes # Neutrophils # 3.2 Lymphocytes # 0.7 L Monocytes # 0.4 Eosinophils # 0.0 Basophils # 0.0 Nucleated Red Blood 0.0 Cells # Sodium Level 138 Potassium Level 5.6 H Chloride Level 116 H Carbon Dioxide Level 15 L Anion Gap 7 Blood Urea Nitrogen 46 H Creatinine 4.34 H Est Glomerular 14 L Filtrat Rate mL/min Glucose Level 129 Calcium Level 9.7 Test 12/15/18 07:51 12/15/18 12:24 Bedside Glucose 115 178 Imaging Imaging Abd/Pelvis CT 12/13/18 1. Right iliac fossa transplant kidney. Mild prominence and urothelial thickening of the transplant collecting system similar to at least 08/13/2017, with decreased surrounding soft tissue stranding. This is nonspecific, superimposed infectious process may have a similar imaging appearance. 2. Atrophic bilateral hoopa kidneys. Prominence of the left greater than right distal hoopa ureters, similar in appearance to the baseline available exam dated 01/12/2013. 3. Extensive vascular calcifications as above, including coronary artery calcifications. 4. Small to moderate amount of intraperitoneal free fluid. 5. Additional findings as described above CXR 12/13/18 No pneumonia or failure. Hyperinflation. Probable skin fold right chest, however, pneumothorax cannot be ruled out. chest x-ray is recommended for more definitive diagnosis. Echo 12/10/18 Normal left ventricular systolic function. Normal left ventricular cavity size. Moderate asymmetric septal hypertrophy. Ejection fraction is visually estimated at 60-65 %. Tissue Doppler/Mitral Doppler indices are within normal limits. Mitral valve leaflets appear mildly thickened. Mild mitral annular calcification. Trace mitral regurgitation. Mild to moderate aortic stenosis. Aortic valve Max velocity 2.45 m/sec. Max PG 24.00 mmHg. Mean PG 13.00 mmHg. Aortic valve area 1.65 cm2. Aortic cusps appear moderately calcified. Normal appearance of the tricuspid valve. Estimated peak PA systolic pressure 25 mmHg. There is trace tricuspid regurgitation. Medications Medication Current Medications Prednisone (Prednisone) 5 mg DAILY PO Last administered on 12/15/18 07:55; Admin Dose 5 MG; Start 12/10/18 at 09:00 Diagnostic Test (Pha) (Accu-Chek) 1 ea 02 XX Last administered on 12/12/18 02:14; Admin Dose 1 EA; Start 12/10/18 at 02:00 Ondansetron HCl (Zofran Inj) 4 mg Q6H PRN IV NAUSEA/VOMITING Last administered on 12/15/18 13:02; Admin Dose 4 MG; Start 12/09/18 at 18:30 Acetaminophen (Tylenol Tab) 650 mg Q6H PRN PO .PAIN 1-3 OR TEMP Last administered on 12/09/18 22:14; Admin Dose 650 MG; Start 12/09/18 at 18:30 Docusate Sodium (Colace) 100 mg Q12H PRN PO .CONSTIPATION; Start 12/09/18 at 18:30 Bisacodyl (Dulcolax) 5 mg DAILY PRN PO .CONSTIPATION; Start 12/09/18 at 18:30 Famotidine (Pepcid) 20 mg DAILY PO Last administered on 12/15/18at 07:55; Admin Dose 20 MG; Start 12/09/18 at 21:00 Heparin Sodium (Porcine) (Heparin (5000 Units/1ml)) 5,000 unit Q12 SC ; Start 12/09/18 at 21:00 Miscellaneous Information 1 ea NOTE XX ; Start 12/09/18 at 18:30 Glucose (Glutose) 15 gm Q15M PRN PO DECREASED GLUCOSE; Start 12/09/18 at 18:30 Glucose (Glutose) 22.5 gm Q15M PRN PO DECREASED GLUCOSE; Start 12/09/18 at 18:30 Dextrose (D50w Syringe) 25 ml Q15M PRN IV DECREASED GLUCOSE; Start 12/09/18 at 18:30 Dextrose (D50w Syringe) 50 ml Q15M PRN IV DECREASED GLUCOSE; Start 12/09/18 at 18:30 Glucagon (Glucagen) 1 mg Q15M PRN IM DECREASED GLUCOSE; Start 12/09/18 at 18:30 Glucose (Glutose) 15 gm Q15M PRN BUCCAL DECREASED GLUCOSE; Start 12/09/18 at 18:30 Hydralazine HCl (Apresoline) 20 mg Q4 PRN IV SBP > 160 Last administered on 12/09/18 21:32; Admin Dose 20 MG; Start 12/09/18 at 21:00 Clonidine (Catapres) 0.1 mg Q6H PRN PO SBP> 160 Last administered on 12/09/18 22:14; Admin Dose 0.1 MG; Start 12/09/18 at 21:00 Amlodipine Besylate (Norvasc) 10 mg DAILY PO Last administered on 12/15/18 07:55; Admin Dose 10 MG; Start 12/09/18 at 21:00 Zolpidem Tartrate (Ambien) 5 mg HS PRN PO INSOMNIA; Start 12/09/18 at 23:30 Acetaminophen/ Hydrocodone Bitart ([place] (10/325)) 1 tab Q6H PRN PO MODERATE PAIN LEVEL 4-6 Last administered on 12/15/18 08:55; Admin Dose 1 TAB; Start 12/10/18 at 19:00 Clonidine (Catapres) 0.1 mg BID PO Last administered on 12/15/18 07:56; Admin Dose 0.1 MG; Start 12/10/18 at 21:00 Hydralazine HCl (Apresoline) 25 mg Q8 PO Last administered on 12/15/18 13:36; Admin Dose 25 MG; Start 12/10/18 at 22:00 Tamsulosin HCl (Flomax) 0.4 mg HS PO Last administered on 12/14/18 21:08; Admin Dose 0.4 MG; Start 12/10/18 at 21:00 Insulin Human NPH (Humulin N) 4 unit DAILY@0900 SC Last administered on 10/21at 08:02; Admin Dose 4 UNIT; Start 12/12/18 at 09:00 Insulin Glargine (Lantus) 8 units DAILY@2000 SC Last administered on 12/13/18at 22:02; Admin Dose 8 UNITS; Start 12/12/18 at 20:00 Ampicillin Sodium/ Sulbactam Sodium 50 ml @ 100 mls/hr Q12 IVPB Last administered on 12/15/18at 07:56; Admin Dose 100 MLS/HR; Start 12/13/18 at 13:00 Insulin Aspart (Novolog Insulin Pen) 3 unit AC LUNCH DINNER SC Last administered on 12/15/18at 12:42; Admin Dose 3 UNIT; Start 12/13/18 at 17:30 Tacrolimus (Prograf) 1 mg QHS PO Last administered on 12/14/18at 21:08; Admin Dose 1 MG; Start 12/13/18 at 21:00 Insulin Aspart (Novolog Insulin Pen) 3 unit AC BREAKFAST SC Last administered on 12/15/18at 08:01; Admin Dose 3 UNIT; Start 12/15/18 at 07:00 Insulin Aspart (Novolog Insulin Pen) NOVOLOG *MILD* ALGORITHM AC DINNER BEDTIME SC ; Start 12/14/18 at 17:30 Insulin Aspart (Novolog Insulin Pen) NOVOLOG *CUSTOM* ALGORITHM AC BREAKFAST LUNCH SC ; Start 12/15/18 at 07:00 Escitalopram Oxalate (Lexapro) 10 mg DAILY PO Last administered on 12/15/18at 07:55; Admin Dose 10 MG; Start 12/14/18 at 14:00 Morphine Sulfate (morphine) 6 mg Q4H PRN PO SEVERE PAIN LEVEL 7-10; Start 12/14/18 at 23:00 Tacrolimus (Prograf) 1 mg QAM PO ; Start 12/16/18 at 09:00 Miscellaneous Information (* Miscellaneous Pharmacy Order) GIVE VELTASSA 16.8 GM X1 ONCE XX ; Start 12/15/18 at 10:30 Sodium Bicarbonate 50 meq/Dextrose 1,000 ml @ 40 mls/hr Q24H IV Last administered on 12/15/18at 12:23; Admin Dose 40 MLS/HR; Start 12/15/18 at 13:00 CYNTHIA SHANNON NP Dec 15, 2018 14:37
--- NOTE | 2018-12-15 15:26 | NUR ---
SW: CONSULTATION SW received consultation to meet with this patient for depression and refusal of HD. SW met with this 58-year-old Vietnamese/ Nigerien speaking male at bedside. 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 Patient states he currently lives with and children at [address] [place] [address] #[place] [address]. States he is disabled but unable to receive financial assistance, as he states he is an illegal immigrant. [facility] Patient states he was independent at home prior to hospitalization. States that his primary mode of transportation is public bus. Patient states that he has been refusing to get his HD because it is "hard." Patient unable to provide any additional information. He did admit to feeling depressed, but states he does not want to talk about it. States he plans to speak with his family about it. States he has good support from his family, but states he has not had a chance to speak with his family today about how he is feeling. States he does NOT want to , and wants to get better, and is considering HD. He verbalized understanding of the risks of not getting HD. States he is merely feeling sad at this time due to his condition, but states that he wants to get better. Patient denies any past/ present thoughts, ideations or plans of suicide/ homicide. Patient declined speaking with psychiatric therapist, and states that he does not want to take any antidepressant medication. States he merely wants to speak with his family later today. He denies any questions/ concerns at this time. SW provided psychosocial counseling and affirmation of feelings. Patient aware that SW remains available as needed throughout patient's treatment process.
--- NOTE | 2018-12-15 16:02 | PN ---
Date/Time of Note Date/Time of Note DATE: 12/15/18 TIME: 15:59 Assessment/Plan VTE Prophylaxis Risk score (from Ns)>0 risk: 1 SCD applied (from Ns): No Lines/Catheters IV C[facility] Type [facility]from [facility] Mid Line Assessment/Plan Hospital Course Patient is very depressed, refused starting on dialysis. Suggested psychiatric consult, patient refused. Assessment/Plan -Severe sepsis with Staphylococcus bacteremia, continue antibiotics per ID. Dr. Olmstead is following in infection disease consultation. -Right middle finger cellulitis with gangrene. S/p evaluation by Dr. Castro in orthopedic surgery consultation. -Hyperkalemia -Renal failure, patient baseline creatinine is 1.5. Continue IV fluids. Dr. Meyers is following in nephrology consultation. -Status post cadaveric kidney transplant in 2009. -Poorly controlled diabetes mellitus type 2, hemoglobin A1c is 10.5. Continue Lantus and NovoLog. Dr. Almonte is following in endocrinology consultation. -Hypertension. -History of right fourth finger gangrene -History of Juan's esophagus and severe gastritis. -Chronic HCV infection -Rheumatoid arthritis -History of polysubstance and IV drug use -Poor medical compliance with his diabetic regimen Further recommendations based on clinical course. Plan of care discussed with Dr. Maier. Result Diagram: 12/15/18 0544 12/15/18 0544 Results 24hrs Laboratory Tests Test 12/14/18 17:11 12/14/18 19:57 12/15/18 01:06 12/15/18 05:44 Bedside Glucose 126 170 Urine Eosinophils % 0.0 White Blood Count 4.4 #L Red Blood Count 2.67 L Hemoglobin 8.8 L Hematocrit 27.8 L Mean Corpuscular 104.1 H Volume Mean Corpuscular 33.0 Hemoglobin Mean Corpuscular 31.7 L Hemoglobin Concent Red Cell 12.7 Distribution Width Platelet Count 192 Mean Platelet Volume 10.0 Immature 0.700 H Granulocytes % Neutrophils % 72.8 Lymphocytes % 15.9 Monocytes % 9.4 Eosinophils % 0.7 Basophils % 0.5 Nucleated Red Blood 0.0 Cells % Immature 0.030 Granulocytes # Neutrophils # 3.2 Lymphocytes # 0.7 L Monocytes # 0.4 Eosinophils # 0.0 Basophils # 0.0 Nucleated Red Blood 0.0 Cells # Sodium Level 138 Potassium Level 5.6 H Chloride Level 116 H Carbon Dioxide Level 15 L Anion Gap 7 Blood Urea Nitrogen 46 H Creatinine 4.34 H Est Glomerular 14 L Filtrat Rate mL/min Glucose Level 129 Calcium Level 9.7 Test 12/15/18 07:51 12/15/18 12:24 Bedside Glucose 115 178 Exam/Review of Systems Exam Vitals Vital Signs Date Temp Pulse Resp B/P (MAP) Pulse Ox O2 O2 Flow FiO2 Time Delivery Rate 12/15/18 97.9 86 19 114/44 96 15:44 (67) 12/15/18 Nasal 12:42 Cannula 12/13/18 2.0 01:59 Intake and Output 12/14/18 12/14/18 12/15/18 1515:00 23:00 07:00 IntakeIntake Total 700 ml 130 ml OutputOutput Total 730 ml 200 ml BalanceBalance -30 ml -70 ml Exam Constitutional: alert, oriented Respiratory: clear to auscultation Cardiovascular: nl pulses Gastrointestinal: soft, non-tender Musculoskeletal: nl extremities to inspection Extremities: normal pulses, other (Right middle finger tip necrosis, resolving) 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: nl mental status Skin: nl turgor Results Results 24hrs Laboratory Tests Test 12/14/18 17:11 12/14/18 19:57 12/15/18 01:06 12/15/18 05:44 Bedside Glucose 126 170 Urine Eosinophils % 0.0 White Blood Count 4.4 #L Red Blood Count 2.67 L Hemoglobin 8.8 L Hematocrit 27.8 L Mean Corpuscular 104.1 H Volume Mean Corpuscular 33.0 Hemoglobin Mean Corpuscular 31.7 L Hemoglobin Concent Red Cell 12.7 Distribution Width Platelet Count 192 Mean Platelet Volume 10.0 Immature 0.700 H Granulocytes % Neutrophils % 72.8 Lymphocytes % 15.9 Monocytes % 9.4 Eosinophils % 0.7 Basophils % 0.5 Nucleated Red Blood 0.0 Cells % Immature 0.030 Granulocytes # Neutrophils # 3.2 Lymphocytes # 0.7 L Monocytes # 0.4 Eosinophils # 0.0 Basophils # 0.0 Nucleated Red Blood 0.0 Cells # Sodium Level 138 Potassium Level 5.6 H Chloride Level 116 H Carbon Dioxide Level 15 L Anion Gap 7 Blood Urea Nitrogen 46 H Creatinine 4.34 H Est Glomerular 14 L Filtrat Rate mL/min Glucose Level 129 Calcium Level 9.7 Test 12/15/18 07:51 12/15/18 12:24 Bedside Glucose 115 178 Medications Medication Current Medications Prednisone (Prednisone) 5 mg DAILY PO Last administered on 12/15/18at 07:55; Admin Dose 5 MG; Start 12/10/18 at 09:00 Diagnostic Test (Pha) (Accu-Chek) 1 ea 02 XX Last administered on 12/12/18at 02:14; Admin Dose 1 EA; Start 12/10/18 at 02:00 Ondansetron HCl (Zofran Inj) 4 mg Q6H PRN IV NAUSEA/VOMITING Last administered on 12/15/18at 13:02; Admin Dose 4 MG; Start 12/09/18 at 18:30 Acetaminophen (Tylenol Tab) 650 mg Q6H PRN PO .PAIN 1-3 OR TEMP Last administered on 12/09/18at 22:14; Admin Dose 650 MG; Start 12/09/18 at 18:30 Docusate Sodium (Colace) 100 mg Q12H PRN PO .CONSTIPATION; Start 12/09/18 at 18:30 Bisacodyl (Dulcolax) 5 mg DAILY PRN PO .CONSTIPATION; Start 12/09/18 at 18:30 Famotidine (Pepcid) 20 mg DAILY PO Last administered on 12/15/18at 07:55; Admin Dose 20 MG; Start 12/09/18 at 21:00 Heparin Sodium (Porcine) (Heparin (5000 Units/1ml)) 5,000 unit Q12 SC ; Start 12/09/18 at 21:00 Miscellaneous Information 1 ea NOTE XX ; Start 12/09/18 at 18:30 Glucose (Glutose) 15 gm Q15M PRN PO DECREASED GLUCOSE; Start 12/09/18 at 18:30 Glucose (Glutose) 22.5 gm Q15M PRN PO DECREASED GLUCOSE; Start 12/09/18 at 18:30 Dextrose (D50w Syringe) 25 ml Q15M PRN IV DECREASED GLUCOSE; Start 12/09/18 at 18:30 Dextrose (D50w Syringe) 50 ml Q15M PRN IV DECREASED GLUCOSE; Start 12/09/18 at 18:30 Glucagon (Glucagen) 1 mg Q15M PRN IM DECREASED GLUCOSE; Start 12/09/18 at 18:30 Glucose (Glutose) 15 gm Q15M PRN BUCCAL DECREASED GLUCOSE; Start 12/09/18 at 18:30 Hydralazine HCl (Apresoline) 20 mg Q4 PRN IV SBP > 160 Last administered on 12/09/18 21:32; Admin Dose 20 MG; Start 12/09/18 at 21:00 Clonidine (Catapres) 0.1 mg Q6H PRN PO SBP> 160 Last administered on 12/09/18 22:14; Admin Dose 0.1 MG; Start 12/09/18 at 21:00 Amlodipine Besylate (Norvasc) 10 mg DAILY PO Last administered on 12/15/18 07:55; Admin Dose 10 MG; Start 12/09/18 at 21:00 Zolpidem Tartrate (Ambien) 5 mg HS PRN PO INSOMNIA; Start 12/09/18 at 23:30 Acetaminophen/ Hydrocodone Bitart ([place] (10/)) 1 tab Q6H PRN PO MODERATE PAIN LEVEL 4-6 Last administered on 12/15/18 08:55; Admin Dose 1 TAB; Start 12/10/18 at 19:00 Clonidine (Catapres) 0.1 mg BID PO Last administered on 12/15/18 07:56; Admin Dose 0.1 MG; Start 12/10/18 at 21:00 Hydralazine HCl (Apresoline) 25 mg Q8 PO Last administered on 12/15/18 13:36; Admin Dose 25 MG; Start 12/10/18 at 22:00 Tamsulosin HCl (Flomax) 0.4 mg HS PO Last administered on 12/14/18 21:08; Admin Dose 0.4 MG; Start 12/10/18 at 21:00 Insulin Human NPH (Humulin N) 4 unit DAILY@0900 SC Last administered on 12/15/18 08:02; Admin Dose 4 UNIT; Start 12/12/18 at 09:00 Insulin Glargine (Lantus) 8 units DAILY@2000 SC Last administered on 12/13/18 22:02; Admin Dose 8 UNITS; Start 12/12/18 at 20:00 Ampicillin Sodium/ Sulbactam Sodium 50 ml @ 100 mls/hr Q12 IVPB Last administ ered on 12/15/18 07:56; Admin Dose 100 MLS/HR; Start 12/13/18 at 13:00 Insulin Aspart (Novolog Insulin Pen) 3 unit AC LUNCH DINNER SC Last administered on 12/15/18at 12:42; Admin Dose 3 UNIT; Start 12/13/18 at 17:30 Tacrolimus (Prograf) 1 mg QHS PO Last administered on 12/14/18at 21:08; Admin Dose 1 MG; Start 12/13/18 at 21:00 Insulin Aspart (Novolog Insulin Pen) 3 unit AC BREAKFAST SC Last administered on 12/15/18at 08:01; Admin Dose 3 UNIT; Start 12/15/18 at 07:00 Insulin Aspart (Novolog Insulin Pen) NOVOLOG *MILD* ALGORITHM AC DINNER BEDTIME SC ; Start 12/14/18 at 17:30 Insulin Aspart (Novolog Insulin Pen) NOVOLOG *CUSTOM* ALGORITHM AC BREAKFAST LUNCH SC ; Start 12/15/18 at 07:00 Escitalopram Oxalate (Lexapro) 10 mg DAILY PO Last administered on 12/15/18at 07:55; Admin Dose 10 MG; Start 12/14/18 at 14:00 Morphine Sulfate (morphine) 6 mg Q4H PRN PO SEVERE PAIN LEVEL 7-10; Start 12/14/18 at 23:00 Tacrolimus (Prograf) 1 mg QAM PO ; Start 12/16/18 at 09:00 Miscellaneous Information (* Miscellaneous Pharmacy Order) GIVE VELTASSA 16.8 GM X1 ONCE XX ; Start 12/15/18 at 10:30 Sodium Bicarbonate 50 meq/Dextrose 1,000 ml @ 40 mls/hr Q24H IV Last administered on 12/15/18at 12:23; Admin Dose 40 MLS/HR; Start 12/15/18 at 13:00 LETI RODRIGUEZ Dec 15, 2018 16:02
--- NOTE | 2018-12-15 16:30 | NUR ---
cm note followed up with pretty at [facility] and per him no bed available at this time, he requested that chart be copied, imaging on disc, poltz on chart and a discharge summary also, extension service specialist in charge sandy made aware.
--- NOTE | 2018-12-15 17:47 | NUR ---
RN notes patient awake in bed, aox4 able to make needs known. all due medications given, needs attended. pt s/w Dr. Fofana and is agreeable to have dialysis if needed. FC inserted per Dr. Fofana's order. per CM, pending bed from [facility]. pt aware with POC. stable at this time, will endorse
--- NOTE | 2018-12-15 18:06 | CONS ---
Assessment/Plan Assessment/Plan Problems: (1) Abdominal pain Status: Acute Comment: Pt. attributes to veltassa. Zofran not helpful. Will try reglan. (2) Nausea with vomiting Status: Acute Comment: Pt. attributes to veltassa. Zofran not helpful. Will try reglan. (3) Type 2 diabetes mellitus with diabetic peripheral angiopathy with gangrene Status: Chronic Comment: BG in fair control. Slightly higher now that pt. has started on IV D5 for NaHCO3. If BG continues to elevate will increase insulin doses. If not, current level is acceptable. Reeval tomorrow. Qualifiers: Diabetes mellitus shelter insulin use: with shelter use Qualified Codes: E11.52 - Type 2 diabetes mellitus with diabetic peripheral angiopathy with gangrene; Z79.4 - intermediate (current) use of insulin Consultation Date/Type/Reason Admit Date/Time Dec 09, 2018 at 14:30 Initial Consult Date 12/10/18 Type of Consult Endocrinology Reason for Consultation T2DM OOC Requesting Provider: HARVINDER BLOOD MD Date/Time of Note DATE: 12/15/18 TIME: 18:02 24 HR Interval Summary Constitutional: No no complaints, No improved Detailed Summary Respiratory: no complaints Cardiovascular: no complaints Gastrointestinal: pain, nausea (attributes to veltassa) Genitourinary: no complaints Musculoskeletal: no complaints Neurologic: no complaints Exam/Review of Systems Exam Vitals VS - Last 72 Hours, by Label Date Temp Pulse Resp B/P (MAP) Pulse Ox O2 O2 Flow FiO2 Time Delivery Rate 12/15/18 92 16:01 12/15/18 97.9 86 19 114/44 96 15:44 (67) 12/15/18 97.7 79 18 130/56 100 Nasal 12:42 (80) Cannula 12/15/18 82 12:01 12/15/18 103 08:01 12/15/18 77 04:00 12/15/18 97.9 78 18 122/55 98 03:56 (77) 12/15/18 71 00:00 12/14/18 98.2 85 19 112/54 99 23:56 (73) 12/14/18 98.0 84 19 117/56 99 20:45 (76) 12/14/18 92 20:00 12/14/18 86 16:02 12/14/18 98.0 80 18 122/60 99 15:53 (80) 12/14/18 69 12:01 12/14/18 98.0 69 18 116/70 97 11:16 (85) 12/14/18 88 08:01 12/14/18 98.0 73 18 133/71 98 07:39 (91) 12/14/18 97.4 78 18 155/83 100 04:00 (107) 12/14/18 75 04:00 12/14/18 96 00:00 12/14/18 98.3 75 18 132/72 96 00:00 (92) 12/13/18 98.4 86 18 156/82 98 20:00 (106) 12/13/18 81 20:00 12/13/18 98.0 73 18 112/67 98 16:10 (82) 12/13/18 82 16:01 12/13/18 72 12:01 12/13/18 98.0 70 18 106/66 98 11:51 (79) 12/13/18 63 08:01 12/13/18 98.0 87 18 127/75 98 07:52 (92) 12/13/18 62 04:00 12/13/18 98.2 72 18 130/78 97 04:00 (95) 12/13/18 Nasal 2.0 01:59 Cannula 12/13/18 74 00:00 12/13/18 98.0 70 18 108/67 100 00:00 (81) 12/12/18 Nasal 2.0 20:20 Cannula 12/12/18 94 20:00 12/12/18 98.0 104 18 164/85 99 20:00 (111) Vital Signs Date Temp Pulse Resp B/P (MAP) Pulse Ox O2 O2 Flow FiO2 Time Delivery Rate 12/15/18 92 16:01 12/15/18 97.9 19 114/44 96 15:44 (67) 12/15/18 Nasal 12:42 Cannula 12/13/18 2.0 01:59 Intake and Output 12/14/18 12/14/18 12/15/18 1515:00 23:00 07:00 IntakeIntake Total 700 ml 130 ml OutputOutput Total 730 ml 200 ml BalanceBalance -30 ml -70 ml Constitutional: alert, oriented, frail Psych: depression Respiratory: clear to auscultation, normal air movement Cardiovascular: regular rate and rhythm; No edema, No murmurs/extra sounds, No rub Gastrointestinal: soft, nl liver, spleen, bowel sounds, distended, tender (diffusely TTP); No non-tender, No mass, No rebound or guarding Musculoskeletal: nl extremities to inspection Extremities: No cyanosis, No clubbing, No edema 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: DATA CONTROL CLERK II-XII intact, nl mental status, nl speech, nl strength Additional Comments Bedside Glucose - 72 Hours Test 12/12/18 21:40 12/13/18 08:21 12/13/18 12:13 12/13/18 12:27 Bedside 174 189 59 112 Glucose mg/dL (70-220) mg/dL (70-220) mg/dL (70-220) mg/dL (70-220) L Test 12/13/18 12:45 12/13/18 12:55 12/13/18 17:38 12/13/18 21:55 Bedside 116 119 206 162 Glucose mg/dL (70-220) mg/dL (70-220) mg/dL (70-220) mg/dL (70-220) Test 12/14/18 03:50 12/14/18 07:53 12/14/18 12:27 12/14/18 17:11 Bedside 146 129 177 126 Glucose mg/dL (70-220) mg/dL (70-220) mg/dL (70-220) mg/dL (70-220) Test 12/14/18 19:57 12/15/18 07:51 12/15/18 12:24 12/15/18 16:57 Bedside 170 115 178 192 Glucose mg/dL (70-220) mg/dL (70-220) mg/dL (70-220) mg/dL (70-220) Results Result Diagram: 12/15/1844 12/15/1844 Results 24hrs Laboratory Tests Test 12/14/18 19:57 12/15/18 01:06 12/15/18 05:44 12/15/18 07:51 Bedside Glucose 170 115 Urine Eosinophils % 0.0 White Blood Count 4.4 #L Red Blood Count 2.67 L Hemoglobin 8.8 L Hematocrit 27.8 L Mean Corpuscular 104.1 H Volume Mean Corpuscular 33.0 Hemoglobin Mean Corpuscular 31.7 L Hemoglobin Concent Red Cell 12.7 Distribution Width Platelet Count 192 Mean Platelet Volume 10.0 Immature 0.700 H Granulocytes % Neutrophils % 72.8 Lymphocytes % 15.9 Monocytes % 9.4 Eosinophils % 0.7 Basophils % 0.5 Nucleated Red Blood 0.0 Cells % Immature 0.030 Granulocytes # Neutrophils # 3.2 Lymphocytes # 0.7 L Monocytes # 0.4 Eosinophils # 0.0 Basophils # 0.0 Nucleated Red Blood 0.0 Cells # Sodium Level 138 Potassium Level 5.6 H Chloride Level 116 H Carbon Dioxide Level 15 L Anion Gap 7 Blood Urea Nitrogen 46 H Creatinine 4.34 H Est Glomerular 14 L Filtrat Rate mL/min Glucose Level 129 Calcium Level 9.7 Test 12/15/18 12:24 12/15/18 16:57 Bedside Glucose 178 192 Medications Medication Current Medications Prednisone (Prednisone) 5 mg DAILY PO Last administered on 12/15/18 07:55; Admin Dose 5 MG; Start 12/10/18 at 09:00 Diagnostic Test (Pha) (Accu-Chek) 1 ea 02 XX Last administered on 12/12/18at 02:14; Admin Dose 1 EA; Start 12/10/18 at 02:00 Ondansetron HCl (Zofran Inj) 4 mg Q6H PRN IV NAUSEA/VOMITING Last administered on 12/15/18 13:02; Admin Dose 4 MG; Start 12/09/18 at 18:30 Acetaminophen (Tylenol Tab) 650 mg Q6H PRN PO .PAIN 1-3 OR TEMP Last administered on 12/09/18at 22:14; Admin Dose 650 MG; Start 12/09/18 at 18:30 Docusate Sodium (Colace) 100 mg Q12H PRN PO .CONSTIPATION; Start 12/09/18 at 18:30 Bisacodyl (Dulcolax) 5 mg DAILY PRN PO .CONSTIPATION; Start 12/09/18 at 18:30 Famotidine (Pepcid) 20 mg DAILY PO Last administered on 12/15/18at 07:55; Admin Dose 20 MG; Start 12/09/18 at 21:00 Heparin Sodium (Porcine) (Heparin (5000 Units/1ml)) 5,000 unit Q12 SC ; Start 12/09/18 at 21:00 Miscellaneous Information 1 ea NOTE XX ; Start 12/09/18 at 18:30 Glucose (Glutose) 15 gm Q15M PRN PO DECREASED GLUCOSE; Start 12/09/18 at 18:30 Glucose (Glutose) 22.5 gm Q15M PRN PO DECREASED GLUCOSE; Start 12/09/18 at 18:30 Dextrose (D50w Syringe) 25 ml Q15M PRN IV DECREASED GLUCOSE; Start 12/09/18 at 18:30 Dextrose (D50w Syringe) 50 ml Q15M PRN IV DECREASED GLUCOSE; Start 12/09/18 at 18:30 Glucagon (Glucagen) 1 mg Q15M PRN IM DECREASED GLUCOSE; Start 12/09/18 at 18:30 Glucose (Glutose) 15 gm Q15M PRN BUCCAL DECREASED GLUCOSE; Start 12/09/18 at 1 8:30 Hydralazine HCl (Apresoline) 20 mg Q4 PRN IV SBP > 160 Last administered on 12/09/18 21:32; Admin Dose 20 MG; Start 12/09/18 at 21:00 Clonidine (Catapres) 0.1 mg Q6H PRN PO SBP> 160 Last administered on 12/09/18 22:14; Admin Dose 0.1 MG; Start 12/09/18 at 21:00 Amlodipine Besylate (Norvasc) 10 mg DAILY PO Last administered on 12/15/18 07:55; Admin Dose 10 MG; Start 12/09/18 at 21:00 Zolpidem Tartrate (Ambien) 5 mg HS PRN PO INSOMNIA; Start 12/09/18 at 23:30 Acetaminophen/ Hydrocodone Bitart ([place] (10/325)) 1 tab Q6H PRN PO MODERATE PAIN LEVEL 4-6 Last administered on 12/15/18 08:55; Admin Dose 1 TAB; Start 12/10/18 at 19:00 Clonidine (Catapres) 0.1 mg BID PO Last administered on 12/15/18 07:56; Admin Dose 0.1 MG; Start 12/10/18 at 21:00 Hydralazine HCl (Apresoline) 25 mg Q8 PO Last administered on 12/15/18 13:36; Admin Dose 25 MG; Start 12/10/18 at 22:00 Tamsulosin HCl (Flomax) 0.4 mg HS PO Last administered on 12/14/18 21:08; Admin Dose 0.4 MG; Start 12/10/18 at 21:00 Insulin Human NPH (Humulin N) 4 unit DAILY@0900 SC Last administered on 12/15/18 08:02; Admin Dose 4 UNIT; Start 12/12/18 at 09:00 Insulin Glargine (Lantus) 8 units DAILY@2000 SC Last administered on 12/13/18 22:02; Admin Dose 8 UNITS; Start 12/12/18 at 20:00 Ampicillin Sodium/ Sulbactam Sodium 50 ml @ 100 mls/hr Q12 IVPB Last administered on 12/15/18 07:56; Admin Dose 100 MLS/HR; Start 12/13/18 at 13:00 Insulin Aspart (Novolog Insulin Pen) 3 unit AC LUNCH DINNER SC Last administered on 12/15/18 17:00; Admin Dose 3 UNIT; Start 12/13/18 at 17:30 Tacrolimus (Prograf) 1 mg QHS PO Last administered on 12/14/18 21:08; Admin Dose 1 MG; Start 12/13/18 at 21:00 Insulin Aspart (Novolog Insulin Pen) 3 unit AC BREAKFAST SC Last administered on 12/15/18 08:01; Admin Dose 3 UNIT; Start 12/15/18 at 07:00 Insulin Aspart (Novolog Insulin Pen) NOVOLOG *MILD* ALGORITHM AC DINNER BEDTIME SC Last administered on 12/15/18 17:00; Admin Dose 1 UNIT; Start 12/14/18 at 17:30 Insulin Aspart (Novolog Insulin Pen) NOVOLOG *CUSTOM* ALGORITHM AC BREAKFAST LUNCH SC ; Start 12/15/18 at 07:00 Escitalopram Oxalate (Lexapro) 10 mg DAILY PO Last administered on 12/15/18at 07:55; Admin Dose 10 MG; Start 12/14/18 at 14:00 Morphine Sulfate (morphine) 6 mg Q4H PRN PO SEVERE PAIN LEVEL 7-10; Start 12/14/18 at 23:00 Tacrolimus (Prograf) 1 mg QAM PO ; Start 12/16/18 at 09:00 Miscellaneous Information (* Miscellaneous Pharmacy Order) GIVE VELTASSA 16.8 GM X1 ONCE XX ; Start 12/15/18 at 10:30 Sodium Bicarbonate 50 meq/Dextrose 1,000 ml @ 40 mls/hr Q24H IV Last administered on 12/15/18at 12:23; Admin Dose 40 MLS/HR; Start 12/15/18 at 13:00 SYLVESTER CAGLE MD Dec 15, 2018 18:06
[2018-12-15] MEDS ORDERED: METOCLOPRAMIDE 10 MG INJ IV PRN (18:30)
[2018-12-15] MEDS: TAMSULOSIN (SR) 0.4 MG CAP PO SCH (21:18)
[2018-12-15] MEDS: INSULIN GLARGINE [LANTus] (100 UNITS/ML) SYG SC SCH (22:30)
[2018-12-16] VITALS (12 sets, daily range): BP systolic 106–150; BP diastolic 43–68; PULSE 76–98; RESP 18–19
[2018-12-16] MEDS: ACCU-CHEK XX SCH (01:55)
--- NOTE | 2018-12-16 04:29 | NUR ---
Pt.s V/S have been stable, no distress nor pain noted, , NSR, 24 hr urine collection sent to lab, pt. oliguric w/ dark colored urine on the feliciano cath , pt. has moods, signs of depression; refused some medications inspite teachings; pt. refused to have me resume his IVF, refused IVF w/ Na Bicarb totally inspite teachings.
[2018-12-16] MEDS: INSULIN ASPART [NOVOLOG] 3 ML PEN SC SCH ×7 (07:00→20:56)
[2018-12-16] MEDS: TACROLIMUS 1 MG CAP PO SCH ×2 (08:12→20:56)
[2018-12-16] MEDS: ESCITALOPRAM 10 MG TAB PO SCH (08:12)
[2018-12-16] MEDS: FAMOTIDINE 20 MG TAB PO SCH (08:12)
[2018-12-16] MEDS: predniSONE 5 MG TAB PO SCH (08:12)
[2018-12-16] MEDS: AMLODIPINE 10 MG TAB PO SCH (08:13)
[2018-12-16] MEDS: HEPARIN 5,000 UNIT/1 ML VIAL SC SCH ×2 (08:16→20:50)
[2018-12-16] MEDS: NPH, HUMAN INSULIN ISOPHANE 3ML VIAL SC SCH (08:24)
[2018-12-16] MEDS: HYDROCODONE/APAP (10/325) TAB PO PRN ×2 (08:29→19:08)
[2018-12-16] MEDS: AMPICILLIN/SULB 1.5GM/NS (PMX) 50 ML IVPB SCH ×2 (08:29→20:44)
--- NOTE | 2018-12-16 11:46 | PN ---
Date/Time of Note Date/Time of Note DATE: 12/16/18 TIME: 11:43 Assessment/Plan VTE Prophylaxis Risk score (from Ns)>0 risk: 1 [place] [facility] [place] contraindicated: patient refusal Pharmacological prophylaxis: heparin Lines/Catheters [facility] Mid Line Central line still needed: Yes Urinary Cath still in place: Yes Reason Cath still needed: urinary retention Assessment/Plan Hospital Course Patient is very depressed refused assessment, medication and Accu-Chek. Obtain an psychiatric consult. Assessment/Plan -Severe sepsis with Staphylococcus bacteremia, continue antibiotics per ID. Dr. Olmstead is following in infection disease consultation. -Right middle finger cellulitis with gangrene. S/p evaluation by Dr. Castro in orthopedic surgery consultation. -Hyperkalemia -Acute on chronic renal failure, patient baseline creatinine is 1.5. Continue IV fluids. Dr. Meyers is following in nephrology consultation. -Status post cadaveric kidney transplant in 2009. -Poorly controlled diabetes mellitus type 2, hemoglobin A1c is 10.5. Continue Lantus and NovoLog. Dr. Almonte is following in endocrinology consultation. -Hypertension. -History of right fourth finger gangrene -History of Juan's esophagus and severe gastritis. -Chronic HCV infection -Rheumatoid arthritis -History of polysubstance and IV drug use -Poor medical compliance with his diabetic regimen Further recommendations based on clinical course. Plan of care discussed with Dr. Maier. Result Diagram: 12/16/18 0504 12/16/18 0525 Results 24hrs Laboratory Tests Test 12/15/18 12:24 12/15/18 16:57 12/15/18 18:43 12/15/18 21:49 Bedside Glucose 178 192 192 Sodium Level 138 Potassium Level 5.6 H Chloride Level 111 H Carbon Dioxide Level 16 L Anion Gap 11 Blood Urea Nitrogen 48 H Creatinine 4.32 H Est Glomerular 14 L Filtrat Rate mL/min Glucose Level 179 Calcium Level 10.4 H Test 12/16/18 01:00 12/16/18 01:35 12/16/18 01:54 12/16/18 05:04 Urine Random 110.61 Creatinine Urine Total Volume 600 24 Hours Urine Creatinine 24 Timed Creatinine Clearance 10.7 L Urine Collection 24 Duration Urine Total Volume 600 (Protein) Urine Total Protein 24 Hour Bedside Glucose 181 White Blood Count 5.5 # Red Blood Count 2.76 L Hemoglobin 9.0 L Hematocrit 28.4 L Mean Corpuscular 102.9 H Volume Mean Corpuscular 32.6 Hemoglobin Mean Corpuscular 31.7 L Hemoglobin Concent Red Cell 12.7 Distribution Width Platelet Count 210 Mean Platelet Volume 10.7 H Immature 0.500 H Granulocytes % Neutrophils % 81.0 H Lymphocytes % 9.9 L Monocytes % 8.0 Eosinophils % 0.2 Basophils % 0.4 Nucleated Red Blood 0.0 Cells % Immature 0.030 Granulocytes # Neutrophils # 4.4 Lymphocytes # 0.5 L Monocytes # 0.4 Eosinophils # 0.0 Basophils # 0.0 Nucleated Red Blood 0.0 Cells # Phosphorus Level 5.4 H Test 12/16/18 05:25 12/16/18 07:35 12/16/18 08:14 12/16/18 10:44 Sodium Level 140 Potassium Level 5.4 H Chloride Level 112 H Carbon Dioxide Level 17 L Anion Gap 11 Blood Urea Nitrogen 49 H Creatinine 4.20 H Est Glomerular 15 L Filtrat Rate mL/min Glucose Level 119 # Calcium Level 9.9 Bedside Glucose 94 145 104 Exam/Review of Systems Exam Vitals Vital Signs Date Temp Pulse Resp B/P (MAP) Pulse Ox O2 O2 Flow FiO2 Time Delivery Rate 12/16/18 98 08:32 12/16/18 97.9 19 150/63 100 08:00 (92) 12/15/18 Nasal 12:42 Cannula 12/13/18 2.0 01:59 Intake and Output 12/15/18 12/15/18 12/16/18 1515:00 23:00 07:00 IntakeIntake Total 250 ml 120 ml OutputOutput Total 300 ml 125 ml BalanceBalance -300 ml 250 ml -5 ml Exam Constitutional: alert, oriented Respiratory: clear to auscultation Cardiovascular: nl pulses Gastrointestinal: soft, non-tender Musculoskeletal: nl extremities to inspection Extremities: normal pulses, other (Right middle finger tip necrosis, resolving) 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: nl mental status Skin: nl turgor Results Results 24hrs Laboratory Tests Test 12/15/18 12:24 12/15/18 16:57 12/15/18 18:43 12/15/18 21:49 Bedside Glucose 178 192 192 Sodium Level 138 Potassium Level 5.6 H Chloride Level 111 H Carbon Dioxide Level 16 L Anion Gap 11 Blood Urea Nitrogen 48 H Creatinine 4.32 H Est Glomerular 14 L Filtrat Rate mL/min Glucose Level 179 Calcium Level 10.4 H Test 12/16/18 01:00 12/16/18 01:35 12/16/18 01:54 12/16/18 05:04 Urine Random 110.61 Creatinine Urine Total Volume 600 24 Hours Urine Creatinine 24 Timed Creatinine Clearance 10.7 L Urine Collection 24 Duration Urine Total Volume 600 (Protein) Urine Total Protein 24 Hour Bedside Glucose 181 White Blood Count 5.5 # Red Blood Count 2.76 L Hemoglobin 9.0 L Hematocrit 28.4 L Mean Corpuscular 102.9 H Volume Mean Corpuscular 32.6 Hemoglobin Mean Corpuscular 31.7 L Hemoglobin Concent Red Cell 12.7 Distribution Width Platelet Count 210 Mean Platelet Volume 10.7 H Immature 0.500 H Granulocytes % Neutrophils % 81.0 H Lymphocytes % 9.9 L Monocytes % 8.0 Eosinophils % 0.2 Basophils % 0.4 Nucleated Red Blood 0.0 Cells % Immature 0.030 Granulocytes # Neutrophils # 4.4 Lymphocytes # 0.5 L Monocytes # 0.4 Eosinophils # 0.0 Basophils # 0.0 Nucleated Red Blood 0.0 Cells # Phosphorus Level 5.4 H Test 12/16/18 05:25 12/16/18 07:35 12/16/18 08:14 12/16/18 10:44 Sodium Level 140 Potassium Level 5.4 H Chloride Level 112 H Carbon Dioxide Level 17 L Anion Gap 11 Blood Urea Nitrogen 49 H Creatinine 4.20 H Est Glomerular 15 L Filtrat Rate mL/min Glucose Level 119 # Calcium Level 9.9 Bedside Glucose 94 145 104 Medications Medication Current Medications Prednisone (Prednisone) 5 mg DAILY PO Last administered on 12/16/18at 08:12; Admin Dose 5 MG; Start 12/10/18 at 09:00 Diagnostic Test (Pha) (Accu-Chek) 1 ea 02 XX Last administered on 12/16/18at 01:55; Admin Dose 1 EA; Start 12/10/18 at 02:00 Ondansetron HCl (Zofran Inj) 4 mg Q6H PRN IV NAUSEA/VOMITING Last administered on 12/15/18at 13:02; Admin Dose 4 MG; Start 12/09/18 at 18:30 Acetaminophen (Tylenol Tab) 650 mg Q6H PRN PO .PAIN 1-3 OR TEMP Last administered on 12/09/18at 22:14; Admin Dose 650 MG; Start 12/09/18 at 18:30 Docusate Sodium (Colace) 100 mg Q12H PRN PO .CONSTIPATION; Start 12/09/18 at 18:30 Bisacodyl (Dulcolax) 5 mg DAILY PRN PO .CONSTIPATION; Start 12/09/18 at 18:30 Famotidine (Pepcid) 20 mg DAILY PO Last administered on 12/16/18at 08:12; Admin Dose 20 MG; Start 12/09/18 at 21:00 Heparin Sodium (Porcine) (Heparin (5000 Units/1ml)) 5,000 unit Q12 SC ; Start 12/09/18 at 21:00 Miscellaneous Information 1 ea NOTE XX ; Start 12/09/18 at 18:30 Glucose (Glutose) 15 gm Q15M PRN PO DECREASED GLUCOSE; Start 12/09/18 at 18:30 Glucose (Glutose) 22.5 gm Q15M PRN PO DECREASED GLUCOSE; Start 12/09/18 at 18:30 Dextrose (D50w Syringe) 25 ml Q15M PRN IV DECREASED GLUCOSE; Start 12/09/18 at 18:30 Dextrose (D50w Syringe) 50 ml Q15M PRN IV DECREASED GLUCOSE; Start 12/09/18 at 18:30 Glucagon (Glucagen) 1 mg Q15M PRN IM DECREASED GLUCOSE; Start 12/09/18 at 18:30 Glucose (Glutose) 15 gm Q15M PRN BUCCAL DECREASED GLUCOSE; Start 12/09/18 at 18:30 Hydralazine HCl (Apresoline) 20 mg Q4 PRN IV SBP > 160 Last administered on 12/09/18at 21:32; Admin Dose 20 MG; Start 12/09/18 at 21:00 Clonidine (Catapres) 0.1 mg Q6H PRN PO SBP> 160 Last administered on 12/09/18at 22:14; Admin Dose 0.1 MG; Start 12/09/18 at 21:00 Amlodipine Besylate (Norvasc) 10 mg DAILY PO Last administered on 12/16/18at 08:13; Admin Dose 10 MG; Start 12/09/18 at 21:00 Zolpidem Tartrate (Ambien) 5 mg HS PRN PO INSOMNIA; Start 12/09/18 at 23:30 Acetaminophen/ Hydrocodone Bitart ([place] (10/325)) 1 tab Q6H PRN PO MODERATE PAIN LEVEL 4-6 Last administered on 12/16/18 08:29; Admin Dose 1 TAB; Start 12/10/18 at 19:00 Clonidine (Catapres) 0.1 mg BID PO Last administered on 12/16/18 08:13; Admin Dose 0.1 MG; Start 12/10/18 at 21:00 Hydralazine HCl (Apresoline) 25 mg Q8 PO Last administered on 12/15/18 21:18; Admin Dose 25 MG; Start 12/10/18 at 22:00 Tamsulosin HCl (Flomax) 0.4 mg HS PO Last administered on 12/15/18 21:18; Admin Dose 0.4 MG; Start 12/10/18 at 21:00 Insulin Human NPH (Humulin N) 4 unit DAILY@0900 SC Last administered on 12/16/18 08:24; Admin Dose 4 UNIT; Start 12/12/18 at 09:00 Insulin Glargine (Lantus) 8 units DAILY@2000 SC Last administered on 12/15/18 22:30; Admin Dose 8 UNITS; Start 12/12/18 at 20:00 Ampicillin Sodium/ Sulbactam Sodium 50 ml @ 100 mls/hr Q12 IVPB Last administered on 12/16/18 08:29; Admin Dose 100 MLS/HR; Start 12/13/18 at 13:00 Insulin Aspart (Novolog Insulin Pen) 3 unit AC LUNCH DINNER SC Last administered on 12/15/18 17:00; Admin Dose 3 UNIT; Start 12/13/18 at 17:30 Tacrolimus (Prograf) 1 mg QHS PO Last administered on 12/15/18 21:18; Admin Dose 1 MG; Start 12/13/18 at 21:00 Insulin Aspart (Novolog Insulin Pen) 3 unit AC BREAKFAST SC Last administered on 12/16/18 08:24; Admin Dose 3 UNIT; Start 12/15/18 at 07:00 Insulin Aspart (Novolog Insulin Pen) NOVOLOG *MILD* ALGORITHM AC DINNER BEDTIME SC Last administered on 12/15/18 22:30; Admin Dose 1 UNIT; Start 12/14/18 at 17:30 Insulin Aspart (Novolog Insulin Pen) NOVOLOG *CUSTOM* ALGORITHM AC BREAKFAST LUNCH SC ; Start 12/15/18 at 07:00 Escitalopram Oxalate (Lexapro) 10 mg DAILY PO Last administered on 12/16/18at 08:12; Admin Dose 10 MG; Start 12/14/18 at 14:00 Morphine Sulfate (morphine) 6 mg Q4H PRN PO SEVERE PAIN LEVEL 7-10; Start 12/14/18 at 23:00 Tacrolimus (Prograf) 1 mg QAM PO Last administered on 12/16/18at 08:12; Admin Dose 1 MG; Start 12/16/18 at 09:00 Miscellaneous Information (* Miscellaneous Pharmacy Order) GIVE VELTASSA 16.8 GM X1 ONCE XX ; Start 12/15/18 at 10:30 Sodium Bicarbonate 50 meq/Dextrose 1,000 ml @ 40 mls/hr Q24H IV Last administered on 12/15/18at 12:23; Admin Dose 40 MLS/HR; Start 12/15/18 at 13:00 Metoclopramide HCl (Reglan) 10 mg Q6H PRN IV NAUSEA; Start 12/15/18 at 18:30 LETI RODRIGUEZ Dec 16, 2018 11:46
--- NOTE | 2018-12-16 11:51 | NUR ---
RN NOTES: PT IS REFUSING TO HAVE HIS BLOOD SUGAR CHECKED NOW. HE SAYS THAT HE DOES NOT WANT TO EAT RIGHT NOW. I TOLD HIM TO LET ME KNOW WHEN HE WANTS TO EAT SO THAT I CAN CHECK HIS BLOOD SUGAR AND GIVEN HIM NOVOLOG 3 UNITS SCHEDULED AND SLIDING SCALE IF NEEDED. WILL CONTINUE TO MONITOR PT.
[2018-12-16] MEDS ORDERED: NA BICARBONATE 8.4% 50 ML SYG IV ONE (13:00)
--- NOTE | 2018-12-16 13:09 | CONS ---
Assessment/Plan Assessment/Plan Hospital Course (Demo Recall) - Progressive swelling of distal aspect of right ring finger with x-ray showing further of erosion and lucency involving the distal aspect of the distal phalanx of the right ring finger suspicious for osteomyelitis with improved but slight associated soft tissue swelling - Hx OM of R 4th digit: swelling with new erosive changes and osteopenia of the underlying R 4th distal phalanx, suggestive of osteomyelitis; wound culture grew Serratia on 03/18/18 and Serratia + CoNS (likely colonizer) on 04/04/18 ; Pt declined amputation. ESR 39 on 03/18/2018. S/p Levaquin x 6 weeks - Bacteremia d/t MSSA 12/09/2018, repeat blood cx 12/12/18 NGTD - MRSA and K. pneumoniae in urine cx 12/09/2018 - UA was neg for pyuria - Hx mild subtle increased activity within the upper aspect of LUE, nonspecific, on WBC tagged scan on 04/05/2018 - Hx OM of R 3rd fingertip (XR showed periosteal reaction at the tip of R 3rd distal phalanx, suspicious for OM, MRI showed cellulitis of distal R 4th phalanx, without OM) and L 2nd fingertip (XR showed cortical irregularity at the tuft of L 2nd distal phalanx with overlying soft tissue defect, suggesting early OM, MRI showed OM at L 2nd distal phalanx with, cellulitis about L 2nd distal phalanx without drainable fluid collection.) - Hx OM of R 2nd finger s/p amputation at proximal phalanx neck, and h/o OM of L 3rd finger s/p amputation at middle and distal phalanges - Acute on chronic renal failure - Hyperkalemia with metabolic acidosis - Hx ESRD, was on HD - S/p renal transplant in 2009 (on tacrolimus, mycophenolate and prednisone), chronic renal insufficiency at baseline - DM - Hgb A1c 10.5% - Hx Juan's esophagus and gastritis s/p EGD on 08/12/2017. No H. pylori on Bx - BLE atherosclerosis - Seen by Vascular Surgery during last admit - Onychomycosis, tinea pedis - Seen by [employer] during last admit - Rheumatoid arthritis - Chronic HCV infection - HTN - Dyslipidemia - Hx polysubstance and IV drug use. - Anemia of chronic disease with h/o pernicious anemia - Hx hyperparathyroidism - Thrombosed graft of LUE - Depression Recommendations: - Continue renally dosed Unasyn (12/13/2018-)x 2 weeks and then PO Augmentin x 4weeks to complete therapy - F/u repeat blood cultures 12/12/18 (NGTD) - Consider vasc surgery eval - Serial ESR Consultation Date/Type/Reason Admit Date/Time Dec 09, 2018 at 14:30 Initial Consult Date Type of Consult id Requesting Provider: HARVINDER BLOOD MD Date/Time of Note DATE: 12/16/18 TIME: 13:08 Exam/Review of Systems Exam Vitals Vital Signs Date Temp Pulse Resp B/P (MAP) Pulse Ox O2 O2 Flow FiO2 Time Delivery Rate 12/16/18 81 12:20 12/16/18 97.9 19 124/68 98 11:40 (86) 12/15/18 Nasal 12:42 Cannula 12/13/18 2.0 01:59 Intake and Output 12/15/18 12/15/18 12/16/18 1515:00 23:00 07:00 IntakeIntake Total 250 ml 120 ml OutputOutput Total 300 ml 125 ml BalanceBalance -300 ml 250 ml -5 ml Constitutional: alert, oriented, well developed Head: normocephalic, atraumatic Eyes: nl conjunctiva, EOMI, nl lids, nl sclera, PERRL Respiratory: clear to auscultation, normal air movement Gastrointestinal: soft, nl liver, spleen, non-tender Skin: other (finger healing) Results Result Diagram: 12/16/18 0504 12/16/18 0525 Results 24hrs Laboratory Tests Test 12/15/18 16:57 12/15/18 18:43 12/15/18 21:49 12/16/18 01:00 Bedside Glucose 192 192 Sodium Level 138 Potassium Level 5.6 H Chloride Level 111 H Carbon Dioxide Level 16 L Anion Gap 11 Blood Urea Nitrogen 48 H Creatinine 4.32 H Est Glomerular 14 L Filtrat Rate mL/min Glucose Level 179 Calcium Level 10.4 H Urine Random 110.61 Creatinine Urine Total Volume 600 24 Hours Urine Creatinine 24 Timed Creatinine Clearance 10.7 L Test 12/16/18 01:35 12/16/18 01:54 12/16/18 05:04 12/16/18 05:25 Urine Collection 24 Duration Urine Total Volume 600 (Protein) Urine Total Protein 24 Hour Bedside Glucose 181 White Blood Count 5.5 # Red Blood Count 2.76 L Hemoglobin 9.0 L Hematocrit 28.4 L Mean Corpuscular 102.9 H Volume Mean Corpuscular 32.6 Hemoglobin Mean Corpuscular 31.7 L Hemoglobin Concent Red Cell 12.7 Distribution Width Platelet Count 210 Mean Platelet Volume 10.7 H Immature 0.500 H Granulocytes % Neutrophils % 81.0 H Lymphocytes % 9.9 L Monocytes % 8.0 Eosinophils % 0.2 Basophils % 0.4 Nucleated Red Blood 0.0 Cells % Immature 0.030 Granulocytes # Neutrophils # 4.4 Lymphocytes # 0.5 L Monocytes # 0.4 Eosinophils # 0.0 Basophils # 0.0 Nucleated Red Blood 0.0 Cells # Phosphorus Level 5.4 H Sodium Level 140 Potassium Level 5.4 H Chloride Level 112 H Carbon Dioxide Level 17 L Anion Gap 11 Blood Urea Nitrogen 49 H Creatinine 4.20 H Est Glomerular 15 L Filtrat Rate mL/min Glucose Level 119 # Calcium Level 9.9 Test 12/16/18 07:35 12/16/18 08:14 12/16/18 10:44 Bedside Glucose 94 145 104 Medications Medication Current Medications Prednisone (Prednisone) 5 mg DAILY PO Last administered on 12/16/18at 08:12; Admin Dose 5 MG; Start 12/10/18 at 09:00 Diagnostic Test (Pha) (Accu-Chek) 1 ea 02 XX Last administered on 12/16/18at 01:55; Admin Dose 1 EA; Start 12/10/18 at 02:00 Ondansetron HCl (Zofran Inj) 4 mg Q6H PRN IV NAUSEA/VOMITING Last administered on 12/15/18at 13:02; Admin Dose 4 MG; Start 12/09/18 at 18:30 Acetaminophen (Tylenol Tab) 650 mg Q6H PRN PO .PAIN 1-3 OR TEMP Last admini stered on 12/09/18at 22:14; Admin Dose 650 MG; Start 12/09/18 at 18:30 Docusate Sodium (Colace) 100 mg Q12H PRN PO .CONSTIPATION; Start 12/09/18 at 18:30 Bisacodyl (Dulcolax) 5 mg DAILY PRN PO .CONSTIPATION; Start 12/09/18 at 18:30 Famotidine (Pepcid) 20 mg DAILY PO Last administered on 12/16/18at 08:12; Admin Dose 20 MG; Start 12/09/18 at 21:00 Heparin Sodium (Porcine) (Heparin (5000 Units/1ml)) 5,000 unit Q12 SC ; Start 12/09/18 at 21:00 Miscellaneous Information 1 ea NOTE XX ; Start 12/09/18 at 18:30 Glucose (Glutose) 15 gm Q15M PRN PO DECREASED GLUCOSE; Start 12/09/18 at 18:30 Glucose (Glutose) 22.5 gm Q15M PRN PO DECREASED GLUCOSE; Start 12/09/18 at 18:30 Dextrose (D50w Syringe) 25 ml Q15M PRN IV DECREASED GLUCOSE; Start 12/09/18 at 18:30 Dextrose (D50w Syringe) 50 ml Q15M PRN IV DECREASED GLUCOSE; Start 12/09/18 at 18:30 Glucagon (Glucagen) 1 mg Q15M PRN IM DECREASED GLUCOSE; Start 12/09/18 at 18:30 Glucose (Glutose) 15 gm Q15M PRN BUCCAL DECREASED GLUCOSE; Start 12/09/18 at 18:30 Hydralazine HCl (Apresoline) 20 mg Q4 PRN IV SBP > 160 Last administered on 12/09/18at 21:32; Admin Dose 20 MG; Start 12/09/18 at 21:00 Clonidine (Catapres) 0.1 mg Q6H PRN PO SBP> 160 Last administered on 12/09/18at 22:14; Admin Dose 0.1 MG; Start 12/09/18 at 21:00 Amlodipine Besylate (Norvasc) 10 mg DAILY PO Last administered on 12/16/18at 08:13; Admin Dose 10 MG; Start 12/09/18 at 21:00 Zolpidem Tartrate (Ambien) 5 mg HS PRN PO INSOMNIA; Start 12/09/18 at 23:30 Acetaminophen/ Hydrocodone Bitart ([place] (10/325)) 1 tab Q6H PRN PO MODERATE PAIN LEVEL 4-6 Last administered on 12/16/18 08:29; Admin Dose 1 TAB; Start 12/10/18 at 19:00 Clonidine (Catapres) 0.1 mg BID PO Last administered on 12/16/18at 08:13; Admin Dose 0.1 MG; Start 12/10/18 at 21:00 Hydralazine HCl (Apresoline) 25 mg Q8 PO Last administered on 12/15/18 21:18; Admin Dose 25 MG; Start 12/10/18 at 22:00 Tamsulosin HCl (Flomax) 0.4 mg HS PO Last administered on 12/15/18 21:18; Admin Dose 0.4 MG; Start 12/10/18 at 21:00 Insulin Human NPH (Humulin N) 4 unit DAILY@0900 SC Last administered on 12/16/18 08:24; Admin Dose 4 UNIT; Start 12/12/18 at 09:00 Insulin Glargine (Lantus) 8 units DAILY@2000 SC Last administered on 12/15/18 22:30; Admin Dose 8 UNITS; Start 12/12/18 at 20:00 Ampicillin Sodium/ Sulbactam Sodium 50 ml @ 100 mls/hr Q12 IVPB Last administered on 12/16/18 08:29; Admin Dose 100 MLS/HR; Start 12/13/18 at 13:00 Insulin Aspart (Novolog Insulin Pen) 3 unit AC LUNCH DINNER SC Last administered on 12/15/18 17:00; Admin Dose 3 UNIT; Start 12/13/18 at 17:30 Tacrolimus (Prograf) 1 mg QHS PO Last administered on 12/15/18 21:18; Admin Dose 1 MG; Start 12/13/18 at 21:00 Insulin Aspart (Novolog Insulin Pen) 3 unit AC BREAKFAST SC Last administered on 12/16/18 08:24; Admin Dose 3 UNIT; Start 12/15/18 at 07:00 Insulin Aspart (Novolog Insulin Pen) NOVOLOG *MILD* ALGORITHM AC DINNER BEDTIME SC Last administered on 12/15/18 22:30; Admin Dose 1 UNIT; Start 12/14/18 at 17:30 Insulin Aspart (Novolog Insulin Pen) NOVOLOG *CUSTOM* ALGORITHM AC BREAKFAST LUNCH SC ; Start 12/15/18 at 07:00 Escitalopram Oxalate (Lexapro) 10 mg DAILY PO Last administered on 12/16/18 08:12; Admin Dose 10 MG; Start 12/14/18 at 14:00 Morphine Sulfate (morphine) 6 mg Q4H PRN PO SEVERE PAIN LEVEL 7-10; Start 12/14/18 at 23:00 Tacrolimus (Prograf) 1 mg QAM PO Last administered on 12/16/18at 08:12; Admin Dose 1 MG; Start 12/16/18 at 09:00 Miscellaneous Information (* Miscellaneous Pharmacy Order) GIVE VELTASSA 16.8 GM X1 ONCE XX ; Start 12/15/18 at 10:30 Metoclopramide HCl (Reglan) 10 mg Q6H PRN IV NAUSEA; Start 12/15/18 at 18:30 Sodium Bicarbonate (Sodium Bicarbonate Tab) 650 mg BID ONCE PO ; Start 12/16/18 at 13:00; Stop 12/16/18 at 13:01; Status UNV Miscellaneous Information (* Miscellaneous Pharmacy Order) VELTASSA 16 GM PO X1 ONCE XX ; Start 12/16/18 at 13:00; Status UNV PARAMJIT COTTRELL MD Dec 16, 2018 13:09
--- NOTE | 2018-12-16 13:11 | PN ---
Date/Time of Note Date/Time of Note DATE: 12/16/18 TIME: 13:05 Assessment/Plan VTE Prophylaxis Risk score (from Ns)>0 risk: 1 SCD applied (from Ns): No SCD contraindicated: low risk/ambulating Pharmacological prophylaxis: NA/contraindicated Pharm contraindication: low risk/ambulating Lines/Catheters [facility] Urinary Cath still in place: Yes Reason Cath still needed: urinary retention Assessment/Plan Hospital Course 58 y/o with 58 y/o with #. Acute on chronic renal failure, spoke to vikas Cr was 2.5 in 10/20 now 3.19> 3.9 culd be due to sepsis vs ATN due to sepsis/meds vs prograft toxicity vs mild hydro; Cr continue to rise. Pt also has underlying DM nephropathy ;hold myfortic due to bacterimia;dec Prograft already to 2/2 from 3/2 Levels 12m resend new levels , Cr continue to rise, # Hyperkalemia, could be secondary to uncontrolled sugars/worsening renal failure/acidosis , vs prograft , dose reduced #. Non gap Metabolic acidosis.due to worsening renal failure #. Sepsis # Right middle finger cellulitis with gangrene. # Status post donor renal transplantation in 2009. # Hypertension. #. Right 4th toe gangrene. #. Severe peripheral vascular disease. #. History of Juan's esophagitis. #. Chronic hepatitis C virus infection. # History of polysubstance use. #. DM type II Assessment/Plan (Daily) -We will again give Veltassa for hyperkalemia. -We will start the patient on bicarb drip > pt refused - Cr is stable today infact downtrended a bit probaly had ATN which could have peaked, montior Cr -cw Prograft 11/03 -Varela, -Monitor potassium, urine output, patient might need hemodialysis in the next 24 hours - Hold Myfortic due to staph bacteremia. Continue with prednisone -ID to renally dose all antibiotics -Continue with Flomax , urology following -Patient will likely need kidney biopsy patient also has history of Prograf toxicity unable to monitor Prograf levels in critical [facility] Hospital as it takes 4 days for the levels to come back need to be transferred to higher level of care for further monitoring and possible kidney biopsy and immunosuppression with -spoke the patient at the bedside, so spoke to the nurse coordinator Christa at [facility], spoke to the outpatient case manager still waiting for GUERDA between insurances patient needs to get transferred to higher level of care NOHEMY -Renally dose all meds -Avoid nephrotoxins -repeat blood cultures neg -DM control per primary Result Diagram: 12/16/18 0504 12/16/18 0525 Results 24hrs Laboratory Tests Test 12/15/18 16:57 12/15/18 18:43 12/15/18 21:49 12/16/18 01:00 Bedside Glucose 192 192 Sodium Level 138 Potassium Level 5.6 H Chloride Level 111 H Carbon Dioxide Level 16 L Anion Gap 11 Blood Urea Nitrogen 48 H Creatinine 4.32 H Est Glomerular 14 L Filtrat Rate mL/min Glucose Level 179 Calcium Level 10.4 H Urine Random 110.61 Creatinine Urine Total Volume 600 24 Hours Urine Creatinine 24 Timed Creatinine Clearance 10.7 L Test 12/16/18 01:35 12/16/18 01:54 12/16/18 05:04 12/16/18 05:25 Urine Collection 24 Duration Urine Total Volume 600 (Protein) Urine Total Protein 24 Hour Bedside Glucose 181 White Blood Count 5.5 # Red Blood Count 2.76 L Hemoglobin 9.0 L Hematocrit 28.4 L Mean Corpuscular 102.9 H Volume Mean Corpuscular 32.6 Hemoglobin Mean Corpuscular 31.7 L Hemoglobin Concent Red Cell 12.7 Distribution Width Platelet Count 210 Mean Platelet Volume 10.7 H Immature 0.500 H Granulocytes % Neutrophils % 81.0 H Lymphocytes % 9.9 L Monocytes % 8.0 Eosinophils % 0.2 Basophils % 0.4 Nucleated Red Blood 0.0 Cells % Immature 0.030 Granulocytes # Neutrophils # 4.4 Lymphocytes # 0.5 L Monocytes # 0.4 Eosinophils # 0.0 Basophils # 0.0 Nucleated Red Blood 0.0 Cells # Phosphorus Level 5.4 H Sodium Level 140 Potassium Level 5.4 H Chloride Level 112 H Carbon Dioxide Level 17 L Anion Gap 11 Blood Urea Nitrogen 49 H Creatinine 4.20 H Est Glomerular 15 L Filtrat Rate mL/min Glucose Level 119 # Calcium Level 9.9 Test 12/16/18 07:35 12/16/18 08:14 12/16/18 10:44 Bedside Glucose 94 145 104 Subjective 24 Hr Interval Summary Free Text/Dictation Pt has uop 1L yesterday No sob k 5.4 refusing bicarb gtt Exam/Review of Systems Exam Vitals Vital Signs Date Temp Pulse Resp B/P (MAP) Pulse Ox O2 O2 Flow FiO2 Time Delivery Rate 12/16/18 81 12:20 12/16/18 97.9 19 124/68 98 11:40 (86) 12/15/18 Nasal 12:42 Cannula 12/13/18 2.0 01:59 Intake and Output 12/15/18 12/15/18 12/16/18 1515:00 23:00 07:00 IntakeIntake Total 250 ml 120 ml OutputOutput Total 300 ml 125 ml BalanceBalance -300 ml 250 ml -5 ml Exam Constitutional: alert, oriented Respiratory: clear to auscultation Cardiovascular: regular rate and rhythm Gastrointestinal: soft Left flank tenderness Gangrene Results Results 24hrs Laboratory Tests Test 12/15/18 16:57 12/15/18 18:43 12/15/18 21:49 12/16/18 01:00 Bedside Glucose 192 192 Sodium Level 138 Potassium Level 5.6 H Chloride Level 111 H Carbon Dioxide Level 16 L Anion Gap 11 Blood Urea Nitrogen 48 H Creatinine 4.32 H Est Glomerular 14 L Filtrat Rate mL/min Glucose Level 179 Calcium Level 10.4 H Urine Random 110.61 Creatinine Urine Total Volume 600 24 Hours Urine Creatinine 24 Timed Creatinine Clearance 10.7 L Test 12/16/18 01:35 12/16/18 01:54 12/16/18 05:04 12/16/18 05:25 Urine Collection 24 Duration Urine Total Volume 600 (Protein) Urine Total Protein 24 Hour Bedside Glucose 181 White Blood Count 5.5 # Red Blood Count 2.76 L Hemoglobin 9.0 L Hematocrit 28.4 L Mean Corpuscular 102.9 H Volume Mean Corpuscular 32.6 Hemoglobin Mean Corpuscular 31.7 L Hemoglobin Concent Red Cell 12.7 Distribution Width Platelet Count 210 Mean Platelet Volume 10.7 H Immature 0.500 H Granulocytes % Neutrophils % 81.0 H Lymphocytes % 9.9 L Monocytes % 8.0 Eosinophils % 0.2 Basophils % 0.4 Nucleated Red Blood 0.0 Cells % Immature 0.030 Granulocytes # Neutrophils # 4.4 Lymphocytes # 0.5 L Monocytes # 0.4 Eosinophils # 0.0 Basophils # 0.0 Nucleated Red Blood 0.0 Cells # Phosphorus Level 5.4 H Sodium Level 140 Potassium Level 5.4 H Chloride Level 112 H Carbon Dioxide Level 17 L Anion Gap 11 Blood Urea Nitrogen 49 H Creatinine 4.20 H Est Glomerular 15 L Filtrat Rate mL/min Glucose Level 119 # Calcium Level 9.9 Test 12/16/18 07:35 12/16/18 08:14 12/16/18 10:44 Bedside Glucose 94 145 104 Medications Medication Current Medications Prednisone (Prednisone) 5 mg DAILY PO Last administered on 12/16/18at 08:12; Admin Dose 5 MG; Start 12/10/18 at 09:00 Diagnostic Test (Pha) (Accu-Chek) 1 ea 02 XX Last administered on 12/16/18 01:55; Admin Dose 1 EA; Start 12/10/18 at 02:00 Ondansetron HCl (Zofran Inj) 4 mg Q6H PRN IV NAUSEA/VOMITING Last administered on 12/15/18at 13:02; Admin Dose 4 MG; Start 12/09/18 at 18:30 Acetaminophen (Tylenol Tab) 650 mg Q6H PRN PO .PAIN 1-3 OR TEMP Last administered on 12/09/18at 22:14; Admin Dose 650 MG; Start 12/09/18 at 18:30 Docusate Sodium (Colace) 100 mg Q12H PRN PO .CONSTIPATION; Start 12/09/18 at 18:30 Bisacodyl (Dulcolax) 5 mg DAILY PRN PO .CONSTIPATION; Start 12/09/18 at 18:30 Famotidine (Pepcid) 20 mg DAILY PO Last administered on 12/16/18at 08:12; Admin Dose 20 MG; Start 12/09/18 at 21:00 Heparin Sodium (Porcine) (Heparin (5000 Units/1ml)) 5,000 unit Q12 SC ; Start 12/09/18 at 21:00 Miscellaneous Information 1 ea NOTE XX ; Start 12/09/18 at 18:30 Glucose (Glutose) 15 gm Q15M PRN PO DECREASED GLUCOSE; Start 12/09/18 at 18:30 Glucose (Glutose) 22.5 gm Q15M PRN PO DECREASED GLUCOSE; Start 12/09/18 at 18:30 Dextrose (D50w Syringe) 25 ml Q15M PRN IV DECREASED GLUCOSE; Start 12/09/18 at 18:30 Dextrose (D50w Syringe) 50 ml Q15M PRN IV DECREASED GLUCOSE; Start 12/09/18 at 18:30 Glucagon (Glucagen) 1 mg Q15M PRN IM DECREASED GLUCOSE; Start 12/09/18 at 18:30 Glucose (Glutose) 15 gm Q15M PRN BUCCAL DECREASED GLUCOSE; Start 12/09/18 at 18:30 Hydralazine HCl (Apresoline) 20 mg Q4 PRN IV SBP > 160 Last administered on 12/09/18at 21:32; Admin Dose 20 MG; Start 12/09/18 at 21:00 Clonidine (Catapres) 0.1 mg Q6H PRN PO SBP> 160 Last administered on 12/09/18 22:14; Admin Dose 0.1 MG; Start 12/09/18 at 21:00 Amlodipine Besylate (Norvasc) 10 mg DAILY PO Last administered on 12/16/18 08:13; Admin Dose 10 MG; Start 12/09/18 at 21:00 Zolpidem Tartrate (Ambien) 5 mg HS PRN PO INSOMNIA; Start 12/09/18 at 23:30 Acetaminophen/ Hydrocodone Bitart ([place] (10/325)) 1 tab Q6H PRN PO MODERATE PAIN LEVEL 4-6 Last administered on 12/16/18 08:29; Admin Dose 1 TAB; Start 12/10/18 at 19:00 Clonidine (Catapres) 0.1 mg BID PO Last administered on 12/16/18 08:13; Admin Dose 0.1 MG; Start 12/10/18 at 21:00 Hydralazine HCl (Apresoline) 25 mg Q8 PO Last administered on 12/15/18 21:18; Admin Dose 25 MG; Start 12/10/18 at 22:00 Tamsulosin HCl (Flomax) 0.4 mg HS PO Last administered on 12/15/18 21:18; Admin Dose 0.4 MG; Start 12/10/18 at 21:00 Insulin Human NPH (Humulin N) 4 unit DAILY@0900 SC Last administered on 12/16/18 08:24; Admin Dose 4 UNIT; Start 12/12/18 at 09:00 Insulin Glargine (Lantus) 8 units DAILY@2000 SC Last administered on 12/15/18 22:30; Admin Dose 8 UNITS; Start 12/12/18 at 20:00 Ampicillin Sodium/ Sulbactam Sodium 50 ml @ 100 mls/hr Q12 IVPB Last administered on 12/16/18 08:29; Admin Dose 100 MLS/HR; Start 12/13/18 at 13:00 Insulin Aspart (Novolog Insulin Pen) 3 unit AC LUNCH DINNER SC Last administered on 12/15/18at 17:00; Admin Dose 3 UNIT; Start 12/13/18 at 17:30 Tacrolimus (Prograf) 1 mg QHS PO Last administered on 12/15/18 21:18; Admin Dose 1 MG; Start 12/13/18 at 21:00 Insulin Aspart (Novolog Insulin Pen) 3 unit AC BREAKFAST SC Last administered on 12/16/18 08:24; Admin Dose 3 UNIT; Start 12/15/18 at 07:00 Insulin Aspart (Novolog Insulin Pen) NOVOLOG *MILD* ALGORITHM AC DINNER BEDTIME SC Last administered on 12/15/18 22:30; Admin Dose 1 UNIT; Start 12/14/18 at 17:30 Insulin Aspart (Novolog Insulin Pen) NOVOLOG *CUSTOM* ALGORITHM AC BREAKFAST LUNCH SC ; Start 12/15/18 at 07:00 Escitalopram Oxalate (Lexapro) 10 mg DAILY PO Last administered on 12/16/18 08:12; Admin Dose 10 MG; Start 12/14/18 at 14:00 Morphine Sulfate (morphine) 6 mg Q4H PRN PO SEVERE PAIN LEVEL 7-10; Start 12/14/18 at 23:00 Tacrolimus (Prograf) 1 mg QAM PO Last administered on 12/16/18at 08:12; Admin Dose 1 MG; Start 12/16/18 at 09:00 Miscellaneous Information (* Miscellaneous Pharmacy Order) GIVE VELTASSA 16.8 GM X1 ONCE XX ; Start 12/15/18 at 10:30 Metoclopramide HCl (Reglan) 10 mg Q6H PRN IV NAUSEA; Start 12/15/18 at 18:30 Sodium Bicarbonate (Sodium Bicarbonate Tab) 650 mg BID ONCE PO ; Start 12/16/18 at 13:00; Stop 12/16/18 at 13:01; Status UNV Miscellaneous Information (* Miscellaneous Pharmacy Order) VELTASSA 16 GM PO X1 ONCE XX ; Start 12/16/18 at 13:00; Status UNV HARVINDER BLOOD MD Dec 16, 2018 13:11
--- NOTE | 2018-12-16 13:28 | CONS ---
Assessment/Plan Assessment/Plan Hospital Course (Demo Recall) IMPRESSION: 1. Hypertension-labile 2. Gangrenous changes of the patient's finger. 3. Renal failure on HD 4. Rheumatoid arthritis. 5. Diabetes mellitus. 6. History of Juan's esophagus. 7. Dyslipidemia. Recc: -Tele -serial ecg's -Continue clonidine and hydralazine with reasonable bp control -Continue Norvasc -Continue immunosuppresives -HD for volume removal -ongoing ortho eval of finger with probable conservative management at this time Consultation Date/Type/Reason Admit Date/Time Dec 09, 2018 at 14:30 Initial Consult Date 12/10/18 Type of Consult Cardiology Reason for Consultation HTN Requesting Provider: HARVINDER BLOOD MD Date/Time of Note DATE: 12/16/18 TIME: 13:25 Exam/Review of Systems Vital Signs Vitals Vital Signs Date Temp Pulse Resp B/P (MAP) Pulse Ox O2 O2 Flow FiO2 Time Delivery Rate 12/16/18 81 12:20 12/16/18 97.9 19 124/68 98 11:40 (86) 12/15/18 Nasal 12:42 Cannula 12/13/18 2.0 01:59 Intake and Output 12/15/18 12/15/18 12/16/18 1515:00 23:00 07:00 IntakeIntake Total 250 ml 120 ml OutputOutput Total 300 ml 125 ml BalanceBalance -300 ml 250 ml -5 ml Exam Exam Review of Systems: CONSTITUTIONAL: No fevers, chills. PULMONARY: No sob CARDIOVASCULAR: No chest pain/palpitations GASTROINTESTINAL: No nausea/vomiting. GENITOURINARY: No hematuria/dysuria. MUSCULOSKELETAL: No myagias/arthalgias. PSYCHIATRIC: The patient denies depression. NEUROLOGIC: No weakness Constitutional: alert Psych: no complaints ENMT: mucosa pink and moist Neck: supple, jvd (9cm) Respiratory: diminished breath sounds Cardiovascular: regular rate and rhythm Gastrointestinal: soft, non-tender Musculoskeletal: muscle tone (yobany) Extremities: edema (none), other (gangrenous changes of finger) 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: other (No focal degficits) Labs Result Diagram: 12/16/18 0504 12/16/18 0525 Results 24hrs Laboratory Tests Test 12/15/18 16:57 12/15/18 18:43 12/15/18 21:49 12/16/18 01:00 Bedside Glucose 192 192 Sodium Level 138 Potassium Level 5.6 H Chloride Level 111 H Carbon Dioxide Level 16 L Anion Gap 11 Blood Urea Nitrogen 48 H Creatinine 4.32 H Est Glomerular 14 L Filtrat Rate mL/min Glucose Level 179 Calcium Level 10.4 H Urine Random 110.61 Creatinine Urine Total Volume 600 24 Hours Urine Creatinine 24 Timed Creatinine Clearance 10.7 L Test 12/16/18 01:35 12/16/18 01:54 12/16/18 05:04 12/16/18 05:25 Urine Collection 24 Duration Urine Total Volume 600 (Protein) Urine Total Protein 24 Hour Bedside Glucose 181 White Blood Count 5.5 # Red Blood Count 2.76 L Hemoglobin 9.0 L Hematocrit 28.4 L Mean Corpuscular 102.9 H Volume Mean Corpuscular 32.6 Hemoglobin Mean Corpuscular 31.7 L Hemoglobin Concent Red Cell 12.7 Distribution Width Platelet Count 210 Mean Platelet Volume 10.7 H Immature 0.500 H Granulocytes % Neutrophils % 81.0 H Lymphocytes % 9.9 L Monocytes % 8.0 Eosinophils % 0.2 Basophils % 0.4 Nucleated Red Blood 0.0 Cells % Immature 0.030 Granulocytes # Neutrophils # 4.4 Lymphocytes # 0.5 L Monocytes # 0.4 Eosinophils # 0.0 Basophils # 0.0 Nucleated Red Blood 0.0 Cells # Phosphorus Level 5.4 H Sodium Level 140 Potassium Level 5.4 H Chloride Level 112 H Carbon Dioxide Level 17 L Anion Gap 11 Blood Urea Nitrogen 49 H Creatinine 4.20 H Est Glomerular 15 L Filtrat Rate mL/min Glucose Level 119 # Calcium Level 9.9 Test 12/16/18 07:35 12/16/18 08:14 12/16/18 10:44 Bedside Glucose 94 145 104 Medications Medications Current Medications Prednisone (Prednisone) 5 mg DAILY PO Last administered on 12/16/18at 08:12; Admin Dose 5 MG; Start 12/10/18 at 09:00 Diagnostic Test (Pha) (Accu-Chek) 1 ea 02 XX Last administered on 12/16/18at 01:55; Admin Dose 1 EA; Start 12/10/18 at 02:00 Ondansetron HCl (Zofran Inj) 4 mg Q6H PRN IV NAUSEA/VOMITING Last administered on 12/15/18at 13:02; Admin Dose 4 MG; Start 12/09/18 at 18:30 Acetaminophen (Tylenol Tab) 650 mg Q6H PRN PO .PAIN 1-3 OR TEMP Last administered on 12/09/18at 22:14; Admin Dose 650 MG; Start 12/09/18 at 18:30 Docusate Sodium (Colace) 100 mg Q12H PRN PO .CONSTIPATION; Start 12/09/18 at 18:30 Bisacodyl (Dulcolax) 5 mg DAILY PRN PO .CONSTIPATION; Start 12/09/18 at 18:30 Famotidine (Pepcid) 20 mg DAILY PO Last administered on 12/16/18at 08:12; Admin Dose 20 MG; Start 12/09/18 at 21:00 Heparin Sodium (Porcine) (Heparin (5000 Units/1ml)) 5,000 unit Q12 SC ; Start 12/09/18 at 21:00 Miscellaneous Information 1 ea NOTE XX ; Start 12/09/18 at 18:30 Glucose (Glutose) 15 gm Q15M PRN PO DECREASED GLUCOSE; Start 12/09/18 at 18:30 Glucose (Glutose) 22.5 gm Q15M PRN PO DECREASED GLUCOSE; Start 12/09/18 at 18:30 Dextrose (D50w Syringe) 25 ml Q15M PRN IV DECREASED GLUCOSE; Start 12/09/18 at 18:30 Dextrose (D50w Syringe) 50 ml Q15M PRN IV DECREASED GLUCOSE; Start 12/09/18 at 18:30 Glucagon (Glucagen) 1 mg Q15M PRN IM DECREASED GLUCOSE; Start 12/09/18 at 18:30 Glucose (Glutose) 15 gm Q15M PRN BUCCAL DECREASED GLUCOSE; Start 12/09/18 at 18:30 Hydralazine HCl (Apresoline) 20 mg Q4 PRN IV SBP > 160 Last administered on 12/09/18at 21:32; Admin Dose 20 MG; Start 12/09/18 at 21:00 Clonidine (Catapres) 0.1 mg Q6H PRN PO SBP> 160 Last administered on 12/09/18at 22:14; Admin Dose 0.1 MG; Start 12/09/18 at 21:00 Amlodipine Besylate (Norvasc) 10 mg DAILY PO Last administered on 12/16/18at 08:13; Admin Dose 10 MG; Start 12/09/18 at 21:00 Zolpidem Tartrate (Ambien) 5 mg HS PRN PO INSOMNIA; Start 12/09/18 at 23:30 Acetaminophen/ Hydrocodone Bitart ([place] (10/325)) 1 tab Q6H PRN PO MODERATE PAIN LEVEL 4-6 Last administered on 12/16/18 08:29; Admin Dose 1 TAB; Start 12/10/18 at 19:00 Clonidine (Catapres) 0.1 mg BID PO Last administered on 12/16/18 08:13; Admin Dose 0.1 MG; Start 12/10/18 at 21:00 Hydralazine HCl (Apresoline) 25 mg Q8 PO Last administered on 12/15/18 21:18; Admin Dose 25 MG; Start 12/10/18 at 22:00 Tamsulosin HCl (Flomax) 0.4 mg HS PO Last administered on 12/15/18 21:18; Admin Dose 0.4 MG; Start 12/10/18 at 21:00 Insulin Human NPH (Humulin N) 4 unit DAILY@0900 SC Last administered on 12/16/18 08:24; Admin Dose 4 UNIT; Start 12/12/18 at 09:00 Insulin Glargine (Lantus) 8 units DAILY@2000 SC Last administered on 12/15/18 22:30; Admin Dose 8 UNITS; Start 12/12/18 at 20:00 Ampicillin Sodium/ Sulbactam Sodium 50 ml @ 100 mls/hr Q12 IVPB Last administered on 12/16/18 08:29; Admin Dose 100 MLS/HR; Start 12/13/18 at 13:00 Insulin Aspart (Novolog Insulin Pen) 3 unit AC LUNCH DINNER SC Last administered on 12/15/18 17:00; Admin Dose 3 UNIT; Start 12/13/18 at 17:30 Tacrolimus (Prograf) 1 mg QHS PO Last administered on 12/15/18 21:18; Admin Dose 1 MG; Start 12/13/18 at 21:00 Insulin Aspart (Novolog Insulin Pen) 3 unit AC BREAKFAST SC Last administered on 12/16/18 08:24; Admin Dose 3 UNIT; Start 12/15/18 at 07:00 Insulin Aspart (Novolog Insulin Pen) NOVOLOG *MILD* ALGORITHM AC DINNER BEDTIME SC Last administered on 12/15/18at 22:30; Admin Dose 1 UNIT; Start 12/14/18 at 17:30 Insulin Aspart (Novolog Insulin Pen) NOVOLOG *CUSTOM* ALGORITHM AC BREAKFAST LUNCH SC ; Start 12/15/18 at 07:00 Escitalopram Oxalate (Lexapro) 10 mg DAILY PO Last administered on 12/16/18at 08:12; Admin Dose 10 MG; Start 12/14/18 at 14:00 Morphine Sulfate (morphine) 6 mg Q4H PRN PO SEVERE PAIN LEVEL 7-10; Start 12/14/18 at 23:00 Tacrolimus (Prograf) 1 mg QAM PO Last administered on 12/16/18at 08:12; Admin Dose 1 MG; Start 12/16/18 at 09:00 Miscellaneous Information (* Miscellaneous Pharmacy Order) GIVE VELTASSA 16.8 GM X1 ONCE XX ; Start 12/15/18 at 10:30 Metoclopramide HCl (Reglan) 10 mg Q6H PRN IV NAUSEA; Start 12/15/18 at 18:30 Sodium Bicarbonate (Sodium Bicarbonate Tab) 650 mg BID PO ; Start 12/16/18 at 13:00 Patiromer (Veltassa) 16.8 gm ONCE PO ; Start 12/16/18 at 14:00; Stop 12/16/18 at 20:00 ABDELRAHMAN KNOTT Dec 16, 2018 13:28
--- NOTE | 2018-12-16 13:31 | CONS ---
Assessment/Plan Assessment/Plan Problems: (1) Type 2 diabetes mellitus with diabetic peripheral angiopathy with gangrene Status: Chronic Comment: Excellent glycemic control. All values in goal range today and only minimally above goal last night. Cont. current insulin doses and reeval tomorrow. 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 Consultation Date/Type/Reason Admit Date/Time Dec 09, 2018 at 14:30 Initial Consult Date 12/10/18 Type of Consult Endocrinology Reason for Consultation [address] Requesting Provider: HARVINDER BLOOD MD Date/Time of Note DATE: 12/16/18 TIME: 13:28 24 HR Interval Summary Constitutional: no complaints, improved Detailed Summary Respiratory: no complaints Cardiovascular: no complaints Gastrointestinal: no complaints; No pain, No decreased appetite, No nausea, No vomiting Genitourinary: no complaints Musculoskeletal: no complaints Neurologic: no complaints Exam/Review of Systems Exam Vitals VS - Last 72 Hours, by Label Date Temp Pulse Resp B/P (MAP) Pulse Ox O2 O2 Flow FiO2 Time Delivery Rate 12/16/18 81 12:20 12/16/18 97.9 78 19 124/68 98 11:40 (86) 12/16/18 98 08:32 12/16/18 97.9 93 19 150/63 100 08:00 (92) 12/16/18 79 04:00 12/16/18 98.2 84 19 106/43 99 03:18 (64) 12/16/18 79 00:00 12/15/18 98.1 96 19 117/53 99 23:12 (74) 12/15/18 78 20:00 12/15/18 98.1 91 19 119/51 98 19:32 (73) 12/15/18 92 16:01 12/15/18 97.9 86 19 114/44 96 15:44 (67) 12/15/18 97.7 79 18 130/56 100 Nasal 12:42 (80) Cannula 12/15/18 82 12:01 12/15/18 103 08:01 12/15/18 77 04:00 12/15/18 97.9 78 18 122/55 98 03:56 (77) 12/15/18 71 00:00 12/14/18 98.2 85 19 112/54 99 23:56 (73) 12/14/18 98.0 84 19 117/56 99 20:45 (76) 12/14/18 92 20:00 12/14/18 86 16:02 12/14/18 98.0 80 18 122/60 99 15:53 (80) 12/14/18 69 12:01 12/14/18 98.0 69 18 116/70 97 11:16 (85) 12/14/18 88 08:01 12/14/18 98.0 73 18 133/71 98 07:39 (91) 12/14/18 97.4 78 18 155/83 100 04:00 (107) 12/14/18 75 04:00 12/14/18 96 00:00 12/14/18 98.3 75 18 132/72 96 00:00 (92) 12/13/18 98.4 86 18 156/82 98 20:00 (106) 12/13/18 81 20:00 12/13/18 98.0 73 18 112/67 98 16:10 (82) 12/13/18 82 16:01 Vital Signs Date Temp Pulse Resp B/P (MAP) Pulse Ox O2 O2 Flow FiO2 Time Delivery Rate 12/16/18 81 12:20 12/16/18 97.9 19 124/68 98 11:40 (86) 12/15/18 Nasal 12:42 Cannula 12/13/18 2.0 01:59 Intake and Output 12/15/18 12/15/18 12/16/18 1515:00 23:00 07:00 IntakeIntake Total 250 ml 120 ml OutputOutput Total 300 ml 125 ml BalanceBalance -300 ml 250 ml -5 ml Constitutional: alert, oriented, frail Psych: no complaints, nl mood/affect Respiratory: clear to auscultation, normal air movement Cardiovascular: regular rate and rhythm; No edema, No murmurs/extra sounds, No rub Gastrointestinal: soft, nl liver, spleen, non-tender, bowel sounds; No mass, No rebound or guarding Musculoskeletal: No nl extremities to inspection (R 3rd finger w/ demarcating gangrene. 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, nl mental status, nl speech, nl strength Additional Comments Bedside Glucose - 72 Hours Test 12/13/18 17:38 12/13/18 21:55 12/14/18 03:50 12/14/18 07:53 Bedside 206 162 146 129 Glucose mg/dL (70-220) mg/dL (70-220) mg/dL (70-220) mg/dL (70-220) Test 12/14/18 12:27 12/14/18 17:11 12/14/18 19:57 12/15/18 07:51 Bedside 177 126 170 115 Glucose mg/dL (70-220) mg/dL (70-220) mg/dL (70-220) mg/dL (70-220) Test 12/15/18 12:24 12/15/18 16:57 12/15/18 21:49 12/16/18 01:54 Bedside 178 192 192 181 Glucose mg/dL (70-220) mg/dL (70-220) mg/dL (70-220) mg/dL (70-220) Test 12/16/18 07:35 12/16/18 08:14 12/16/18 10:44 Bedside 94 145 104 Glucose mg/dL (70-220) mg/dL (70-220) mg/dL (70-220) Results Result Diagram: 12/16/18 0504 12/16/18 0525 Results 24hrs Laboratory Tests Test 12/15/18 16:57 12/15/18 18:43 12/15/18 21:49 12/16/18 01:00 Bedside Glucose 192 192 Sodium Level 138 Potassium Level 5.6 H Chloride Level 111 H Carbon Dioxide Level 16 L Anion Gap 11 Blood Urea Nitrogen 48 H Creatinine 4.32 H Est Glomerular 14 L Filtrat Rate mL/min Glucose Level 179 Calcium Level 10.4 H Urine Random 110.61 Creatinine Urine Total Volume 600 24 Hours Urine Creatinine 24 Timed Creatinine Clearance 10.7 L Test 12/16/18 01:35 12/16/18 01:54 12/16/18 05:04 12/16/18 05:25 Urine Collection 24 Duration Urine Total Volume 600 (Protein) Urine Total Protein 24 Hour Bedside Glucose 181 White Blood Count 5.5 # Red Blood Count 2.76 L Hemoglobin 9.0 L Hematocrit 28.4 L Mean Corpuscular 102.9 H Volume Mean Corpuscular 32.6 Hemoglobin Mean Corpuscular 31.7 L Hemoglobin Concent Red Cell 12.7 Distribution Width Platelet Count 210 Mean Platelet Volume 10.7 H Immature 0.500 H Granulocytes % Neutrophils % 81.0 H Lymphocytes % 9.9 L Monocytes % 8.0 Eosinophils % 0.2 Basophils % 0.4 Nucleated Red Blood 0.0 Cells % Immature 0.030 Granulocytes # Neutrophils # 4.4 Lymphocytes # 0.5 L Monocytes # 0.4 Eosinophils # 0.0 Basophils # 0.0 Nucleated Red Blood 0.0 Cells # Phosphorus Level 5.4 H Sodium Level 140 Potassium Level 5.4 H Chloride Level 112 H Carbon Dioxide Level 17 L Anion Gap 11 Blood Urea Nitrogen 49 H Creatinine 4.20 H Est Glomerular 15 L Filtrat Rate mL/min Glucose Level 119 # Calcium Level 9.9 Test 12/16/18 07:35 12/16/18 08:14 12/16/18 10:44 Bedside Glucose 94 145 104 Medications Medication Current Medications Prednisone (Prednisone) 5 mg DAILY PO Last administered on 12/16/18 08:12; Admin Dose 5 MG; Start 12/10/18 at 09:00 Diagnostic Test (Pha) (Accu-Chek) 1 ea 02 XX Last administered on 12/16/18 01:55; Admin Dose 1 EA; Start 12/10/18 at 02:00 Ondansetron HCl (Zofran Inj) 4 mg Q6H PRN IV NAUSEA/VOMITING Last administered on 12/15/18 13:02; Admin Dose 4 MG; Start 12/09/18 at 18:30 Acetaminophen (Tylenol Tab) 650 mg Q6H PRN PO .PAIN 1-3 OR TEMP Last administered on 12/09/18 22:14; Admin Dose 650 MG; Start 12/09/18 at 18:30 Docusate Sodium (Colace) 100 mg Q12H PRN PO .CONSTIPATION; Start 12/09/18 at 18:30 Bisacodyl (Dulcolax) 5 mg DAILY PRN PO .CONSTIPATION; Start 12/09/18 at 18:30 Famotidine (Pepcid) 20 mg DAILY PO Last administered on 12/16/18 08:12; Admin Dose 20 MG; Start 12/09/18 at 21:00 Heparin Sodium (Porcine) (Heparin (5000 Units/1ml)) 5,000 unit Q12 SC ; Start 12/09/18 at 21:00 Miscellaneous Information 1 ea NOTE XX ; Start 12/09/18 at 18:30 Glucose (Glutose) 15 gm Q15M PRN PO DECREASED GLUCOSE; Start 12/09/18 at 18:30 Glucose (Glutose) 22.5 gm Q15M PRN PO DECREASED GLUCOSE; Start 12/09/18 at 18:30 Dextrose (D50w Syringe) 25 ml Q15M PRN IV DECREASED GLUCOSE; Start 12/09/18 at 18:30 Dextrose (D50w Syringe) 50 ml Q15M PRN IV DECREASED GLUCOSE; Start 12/09/18 at 18:30 Glucagon (Glucagen) 1 mg Q15M PRN IM DECREASED GLUCOSE; Start 12/09/18 at 18:30 Glucose (Glutose) 15 gm Q15M PRN BUCCAL DECREASED GLUCOSE; Start 12/09/18 at 18:30 Hydralazine HCl (Apresoline) 20 mg Q4 PRN IV SBP > 160 Last administered on 12/09/18at 21:32; Admin Dose 20 MG; Start 12/09/18 at 21:00 Clonidine (Catapres) 0.1 mg Q6H PRN PO SBP> 160 Last administered on 12/09/18at 22:14; Admin Dose 0.1 MG; Start 12/09/18 at 21:00 Amlodipine Besylate (Norvasc) 10 mg DAILY PO Last administered on 12/16/18 08:13; Admin Dose 10 MG; Start 12/09/18 at 21:00 Zolpidem Tartrate (Ambien) 5 mg HS PRN PO INSOMNIA; Start 12/09/18 at 23:30 Acetaminophen/ Hydrocodone Bitart ([place] (10/325)) 1 tab Q6H PRN PO MODERATE PAIN LEVEL 4-6 Last administered on 12/16/18at 08:29; Admin Dose 1 TAB; Start 12/10/18 at 19:00 Clonidine (Catapres) 0.1 mg BID PO Last administered on 12/16/18at 08:13; Admin Dose 0.1 MG; Start 12/10/18 at 21:00 Hydralazine HCl (Apresoline) 25 mg Q8 PO Last administered on 12/15/18 21:18; Admin Dose 25 MG; Start 12/10/18 at 22:00 Tamsulosin HCl (Flomax) 0.4 mg HS PO Last administered on 12/15/18 21:18; Admin Dose 0.4 MG; Start 12/10/18 at 21:00 Insulin Human NPH (Humulin N) 4 unit DAILY@0900 SC Last administered on 12/16/18 08:24; Admin Dose 4 UNIT; Start 12/12/18 at 09:00 Insulin Glargine (Lantus) 8 units DAILY@2000 SC Last administered on 12/15/18 22:30; Admin Dose 8 UNITS; Start 12/12/18 at 20:00 Ampicillin Sodium/ Sulbactam Sodium 50 ml @ 100 mls/hr Q12 IVPB Last administered on 12/16/18 08:29; Admin Dose 100 MLS/HR; Start 12/13/18 at 13:00 Insulin Aspart (Novolog Insulin Pen) 3 unit AC LUNCH DINNER SC Last administered on 12/15/18 17:00; Admin Dose 3 UNIT; Start 12/13/18 at 17:30 Tacrolimus (Prograf) 1 mg QHS PO Last administered on 12/15/18 21:18; Admin Dose 1 MG; Start 12/13/18 at 21:00 Insulin Aspart (Novolog Insulin Pen) 3 unit AC BREAKFAST SC Last administered on 12/16/18 08:24; Admin Dose 3 UNIT; Start 12/15/18 at 07:00 Insulin Aspart (Novolog Insulin Pen) NOVOLOG *MILD* ALGORITHM AC DINNER BEDTIME SC Last administered on 12/15/18 22:30; Admin Dose 1 UNIT; Start 12/14/18 at 17:30 Insulin Aspart (Novolog Insulin Pen) NOVOLOG *CUSTOM* ALGORITHM AC BREAKFAST LUNCH SC ; Start 12/15/18 at 07:00 Escitalopram Oxalate (Lexapro) 10 mg DAILY PO Last administered on 12/16/18 08:12; Admin Dose 10 MG; Start 12/14/18 at 14:00 Morphine Sulfate (morphine) 6 mg Q4H PRN PO SEVERE PAIN LEVEL 7-10; Start 12/14/18 at 23:00 Tacrolimus (Prograf) 1 mg QAM PO Last administered on 2/13/19at 08:12; Admin Dose 1 MG; Start 12/16/18 at 09:00 Miscellaneous Information (* Miscellaneous Pharmacy Order) GIVE VELTASSA 16.8 GM X1 ONCE XX ; Start 12/15/18 at 10:30 Metoclopramide HCl (Reglan) 10 mg Q6H PRN IV NAUSEA; Start 12/15/18 at 18:30 Sodium Bicarbonate (Sodium Bicarbonate Tab) 650 mg BID PO ; Start 12/16/18 at 13:00 Patiromer (Veltassa) 16.8 gm ONCE PO ; Start 12/16/18 at 14:00; Stop 12/16/18 at 20:00 SYLVESTER CAGLE MD Dec 16, 2018 13:31
[2018-12-16] MEDS ORDERED: PATIROMER CALCIUM SORBITEX 16.8 GM PKT PO SCH (14:00)
[2018-12-16] MEDS: NA BICARBONATE 650 MG TAB PO SCH ×2 (15:04→20:48)
--- NOTE | 2018-12-16 15:11 | NUR ---
RN NOTES: PT HAS BEEN REFUSING SEVERAL OF THE MEDICATIONS THAT ARE SCHEDULED. HE REFUSED VELTASSA AND SODIUM BICARB IV PUSH. HE SAYS THAT THESE MEDICATIONS MAKE HIM NAUSEOUS AND BURN UP INSIDE. HE ALSO REFUSED THE AFTERNOON DOSE OF NOVOLOG 3 UNITS BECAUSE HE SAID THAT HE DOESN'T WANT TO EAT NOW AND DOESN'T WANT HIS INSULIN NOW. WILL CONTINUE TO MONITOR PT. Addendum: 12/16/18 at 1525 by BUD MEDEIROS RN MD AWARE OF PT REFUSING MEDS
--- NOTE | 2018-12-16 17:49 | NUR ---
RN NOTES: PT REFUSED NOVOLOG 3 UNITS SCHEDULED DOSE. BLOOD GLUCOSE WAS 104 WHEN CHECKED. HE DOES NOT WANT THE NOVOLOG 3 UNITS SCHEDULED DOSE BECAUSE HE SAYS THAT HE MAY NOT EAT AND DOES NOT WANT HIS SUGAR TO DROP MORE. I TOLD PT TO LET ME KNOW WHEN HE WANTS TO EAT SO I CAN CHECK HIS BLOOD SUGAR AGAIN. WILL CONTINUE TO MONITOR PT.
[2018-12-16] MEDS: INSULIN GLARGINE [LANTus] (100 UNITS/ML) SYG SC SCH (20:00)
[2018-12-16] MEDS: TAMSULOSIN (SR) 0.4 MG CAP PO SCH (20:48)
[2018-12-17] VITALS (10 sets, daily range): BP systolic 107–133; BP diastolic 47–52; PULSE 63–88; RESP 19–20
[2018-12-17] MEDS: ACCU-CHEK XX SCH (02:00)
--- NOTE | 2018-12-17 03:20 | NUR ---
NURSE NOTE At this time, received a call from Maliha from [facility] regarding patient transfer status. As of now, there is still no bed available.
[2018-12-17] MEDS: HYDROCODONE/APAP (10/325) TAB PO PRN ×2 (04:06→12:04)
[2018-12-17] MEDS: INSULIN ASPART [NOVOLOG] 3 ML PEN SC SCH ×7 (07:00→21:43)
--- NOTE | 2018-12-17 07:39 | NUR ---
EOSS: Patient alert and oriented x4. Cooperative at the beginning of shift, however refused heparin and Lantus. Was able to convince patient to wear SCDs, but only for a short period of time. No acute distress or discomfort noted throughout the night. Patient is currently resting comfortably, vitals stable. Hourly rounding done. All other needs anticipated and met. Will endorse to oncoming shift to continue to monitor.
[2018-12-17] MEDS: NPH, HUMAN INSULIN ISOPHANE 3ML VIAL SC SCH (08:08)
[2018-12-17] MEDS: HEPARIN 5,000 UNIT/1 ML VIAL SC SCH ×2 (08:08→21:00)
[2018-12-17] MEDS: NA BICARBONATE 650 MG TAB PO SCH ×2 (08:52→21:16)
[2018-12-17] MEDS: FAMOTIDINE 20 MG TAB PO SCH (08:52)
[2018-12-17] MEDS: AMPICILLIN/SULB 1.5GM/NS (PMX) 50 ML IVPB SCH ×2 (08:52→21:16)
[2018-12-17] MEDS: ESCITALOPRAM 10 MG TAB PO SCH (08:52)
[2018-12-17] MEDS: predniSONE 5 MG TAB PO SCH (08:52)
[2018-12-17] MEDS: AMLODIPINE 10 MG TAB PO SCH (08:54)
--- NOTE | 2018-12-17 09:55 | NUR ---
case management note followed up with Lucio [phone] at the transfer center at [facility] and at this time, there are no bed available, cm will continue to follow up. Halina Fitzpatrick RN,[facility] ext [phone]
[2018-12-17] MEDS: TACROLIMUS 1 MG CAP PO SCH ×2 (11:18→21:16)
--- NOTE | 2018-12-17 11:20 | CONS ---
Assessment/Plan Assessment/Plan Hospital Course (Demo Recall) IMPRESSION: 1. Hypertension-labile and on lower end today 2. Gangrenous changes of the patient's finger. 3. Renal failure on HD 4. Rheumatoid arthritis. 5. Diabetes mellitus. 6. History of Juan's esophagus. 7. Dyslipidemia. 8. Bacteremia-S aureus Recc: -Tele -serial ecg's -antihypertensives held today due to low BP. -Continue immunosuppresives -HD for volume removal -ongoing ortho eval of finger with probable conservative management at this time -possible transfer to higher level of care Consultation Date/Type/Reason Admit Date/Time Dec 09, 2018 at 14:30 Initial Consult Date 12/10/18 Type of Consult Cardiology Reason for Consultation HTN Requesting Provider: HARVINDER BLOOD MD Date/Time of Note DATE: 12/17/18 TIME: 11:17 Exam/Review of Systems Vital Signs Vitals Vital Signs Date Temp Pulse Resp B/P (MAP) Pulse Ox O2 O2 Flow FiO2 Time Delivery Rate 12/17/18 78 08:19 12/17/18 98.1 20 107/52 96 Room Air 07:38 (70) Intake and Output 12/16/18 12/16/18 12/17/18 1515:00 23:00 07:00 IntakeIntake Total 200 ml OutputOutput Total 500 ml BalanceBalance -300 ml Exam Exam Review of Systems: CONSTITUTIONAL: No fevers, chills. PULMONARY: No sob CARDIOVASCULAR: No chest pain/palpitations GASTROINTESTINAL: No nausea/vomiting. GENITOURINARY: No hematuria/dysuria. MUSCULOSKELETAL: No myagias/arthalgias. PSYCHIATRIC: The patient denies depression. NEUROLOGIC: generalized weakness today Psych: no complaints Head: normocephalic ENMT: mucosa pink and moist Neck: supple, jvd (9 cm water) Respiratory: diminished breath sounds Cardiovascular: regular rate and rhythm Gastrointestinal: soft, non-tender Musculoskeletal: muscle tone (normal) Extremities: edema (none), other (fonger with gangrenous changes) 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: other (No focal deficits) Labs Result Diagram: 12/16/18 0504 12/16/18 0525 Results 24hrs Laboratory Tests Test 12/16/18 17:07 12/16/18 20:52 12/17/18 07:45 Bedside Glucose 104 132 89 Medications Medications Current Medications Prednisone (Prednisone) 5 mg DAILY PO Last administered on 12/17/18at 08:52; Admin Dose 5 MG; Start 12/10/18 at 09:00 Diagnostic Test (Pha) (Accu-Chek) 1 ea 02 XX Last administered on 12/16/18at 01:55; Admin Dose 1 EA; Start 12/10/18 at 02:00 Ondansetron HCl (Zofran Inj) 4 mg Q6H PRN IV NAUSEA/VOMITING Last administered on 12/15/18at 13:02; Admin Dose 4 MG; Start 12/09/18 at 18:30 Acetaminophen (Tylenol Tab) 650 mg Q6H PRN PO .PAIN 1-3 OR TEMP Last administered on 12/09/18at 22:14; Admin Dose 650 MG; Start 12/09/18 at 18:30 Docusate Sodium (Colace) 100 mg Q12H PRN PO .CONSTIPATION; Start 12/09/18 at 18:30 Bisacodyl (Dulcolax) 5 mg DAILY PRN PO .CONSTIPATION; Start 12/09/18 at 18:30 Famotidine (Pepcid) 20 mg DAILY PO Last administered on 12/17/18at 08:52; Admin Dose 20 MG; Start 12/09/18 at 21:00 Heparin Sodium (Porcine) (Heparin (5000 Units/1ml)) 5,000 unit Q12 SC ; Start 12/09/18 at 21:00 Miscellaneous Information 1 ea NOTE XX ; Start 12/09/18 at 18:30 Glucose (Glutose) 15 gm Q15M PRN PO DECREASED GLUCOSE; Start 12/09/18 at 18:30 Glucose (Glutose) 22.5 gm Q15M PRN PO DECREASED GLUCOSE; Start 12/09/18 at 18:30 Dextrose (D50w Syringe) 25 ml Q15M PRN IV DECREASED GLUCOSE; Start 12/09/18 at 18:30 Dextrose (D50w Syringe) 50 ml Q15M PRN IV DECREASED GLUCOSE; Start 12/09/18 at 18:30 Glucagon (Glucagen) 1 mg Q15M PRN IM DECREASED GLUCOSE; Start 12/09/18 at 18:30 Glucose (Glutose) 15 gm Q15M PRN BUCCAL DECREASED GLUCOSE; Start 12/09/18 at 18:30 Hydralazine HCl (Apresoline) 20 mg Q4 PRN IV SBP > 160 Last administered on 12/09/18 21:32; Admin Dose 20 MG; Start 12/09/18 at 21:00 Clonidine (Catapres) 0.1 mg Q6H PRN PO SBP> 160 Last administered on 12/09/18 22:14; Admin Dose 0.1 MG; Start 12/09/18 at 21:00 Amlodipine Besylate (Norvasc) 10 mg DAILY PO Last administered on 12/16/18 08:13; Admin Dose 10 MG; Start 12/09/18 at 21:00 Zolpidem Tartrate (Ambien) 5 mg HS PRN PO INSOMNIA; Start 12/09/18 at 23:30 Acetaminophen/ Hydrocodone Bitart ([place] (10/325)) 1 tab Q6H PRN PO MODERATE PAIN LEVEL 4-6 Last administered on 12/17/18 04:06; Admin Dose 1 TAB; Start 12/10/18 at 19:00 Clonidine (Catapres) 0.1 mg BID PO Last administered on 12/16/18 20:48; Admin Dose 0.1 MG; Start 12/10/18 at 21:00 Hydralazine HCl (Apresoline) 25 mg Q8 PO Last administered on 12/17/18 05:46; Admin Dose 25 MG; Start 12/10/18 at 22:00 Tamsulosin HCl (Flomax) 0.4 mg HS PO Last administered on 12/16/18 20:48; Admin Dose 0.4 MG; Start 12/10/18 at 21:00 Insulin Human NPH (Humulin N) 4 unit DAILY@0900 SC Last administered on 12/16/18 08:24; Admin Dose 4 UNIT; Start 12/12/18 at 09:00 Insulin Glargine (Lantus) 8 units DAILY@2000 SC Last administered on 12/15/18 22:30; Admin Dose 8 UNITS; Start 12/12/18 at 20:00 Ampicillin Sodium/ Sulbactam Sodium 50 ml @ 100 mls/hr Q12 IVPB Last administered on 12/17/18 08:52; Admin Dose 100 MLS/HR; Start 12/13/18 at 13:00 Insulin Aspart (Novolog Insulin Pen) 3 unit AC LUNCH DINNER SC Last administered on 12/15/18 17:00; Admin Dose 3 UNIT; Start 12/13/18 at 17:30 Tacrolimus (Prograf) 1 mg QHS PO Last administered on 12/16/18 20:56; Admin Dose 1 MG; Start 12/13/18 at 21:00 Insulin Aspart (Novolog Insulin Pen) 3 unit AC BREAKFAST SC Last administered on 12/16/18 08:24; Admin Dose 3 UNIT; Start 12/15/18 at 07:00 Insulin Aspart (Novolog Insulin Pen) NOVOLOG *MILD* ALGORITHM AC DINNER BEDTIME SC Last administered on 12/15/18 22:30; Admin Dose 1 UNIT; Start 12/14/18 at 17:30 Insulin Aspart (Novolog Insulin Pen) NOVOLOG *CUSTOM* ALGORITHM AC BREAKFAST LUNCH SC ; Start 12/15/18 at 07:00 Escitalopram Oxalate (Lexapro) 10 mg DAILY PO Last administered on 12/17/18 08:52; Admin Dose 10 MG; Start 12/14/18 at 14:00 Morphine Sulfate (morphine) 6 mg Q4H PRN PO SEVERE PAIN LEVEL 7-10; Start 12/14/18 at 23:00 Tacrolimus (Prograf) 1 mg QAM PO Last administered on 12/16/18 08:12; Admin Dose 1 MG; Start 12/16/18 at 09:00 Miscellaneous Information (* Miscellaneous Pharmacy Order) GIVE VELTASSA 16.8 GM X1 ONCE XX ; Start 12/15/18 at 10:30 Metoclopramide HCl (Reglan) 10 mg Q6H PRN IV NAUSEA; Start 12/15/18 at 18:30 Sodium Bicarbonate (Sodium Bicarbonate Tab) 650 mg BID PO Last administered on 12/17/18 08:52; Admin Dose 650 MG; Start 12/16/18 at 13:00 ABDELRAHMAN KNOTT Dec 17, 2018 11:20
[2018-12-17] MEDS: ONDANSETRON 4 MG INJ IV PRN (12:04)
--- NOTE | 2018-12-17 13:43 | CONS ---
Assessment/Plan Assessment/Plan Hospital Course (Demo Recall) - Progressive swelling of distal aspect of right ring finger with x-ray showing further of erosion and lucency involving the distal aspect of the distal phalanx of the right ring finger suspicious for osteomyelitis with improved but slight associated soft tissue swelling - Hx OM of R 4th digit: swelling with new erosive changes and osteopenia of the underlying R 4th distal phalanx, suggestive of osteomyelitis; wound culture grew Serratia on 03/18/18 and Serratia + CoNS (likely colonizer) on 04/04/18 ; Pt declined amputation. ESR 39 on 03/18/2018. S/p Levaquin x 6 weeks - Bacteremia d/t MSSA 12/09/2018, repeat blood cx 12/12/18 NGTD - MRSA and K. pneumoniae in urine cx 12/09/2018 - UA was neg for pyuria - Hx mild subtle increased activity within the upper aspect of LUE, nonspecific, on WBC tagged scan on 04/05/2018 - Hx OM of R 3rd fingertip (XR showed periosteal reaction at the tip of R 3rd distal phalanx, suspicious for OM, MRI showed cellulitis of distal R 4th phalanx, without OM) and L 2nd fingertip (XR showed cortical irregularity at the tuft of L 2nd distal phalanx with overlying soft tissue defect, suggesting early OM, MRI showed OM at L 2nd distal phalanx with, cellulitis about L 2nd distal phalanx without drainable fluid collection.) - Hx OM of R 2nd finger s/p amputation at proximal phalanx neck, and h/o OM of L 3rd finger s/p amputation at middle and distal phalanges - Acute on chronic renal failure - Hyperkalemia with metabolic acidosis - slowly improving with sodium bicarb - Hx ESRD, was on HD - S/p renal transplant in 2009 (on tacrolimus, mycophenolate and prednisone), chronic renal insufficiency at baseline - DM - Hgb A1c 10.5% - Hx Juan's esophagus and gastritis s/p EGD on 08/12/2017. No H. pylori on Bx - BLE atherosclerosis - Seen by Vascular Surgery during last admit - Onychomycosis, tinea pedis - Seen by Public Policy Associate during last admit - Rheumatoid arthritis - Chronic HCV infection - HTN - Dyslipidemia - Hx polysubstance and IV drug use. - Anemia of chronic disease with h/o pernicious anemia - Hx hyperparathyroidism - Thrombosed graft of LUE - Depression - Abdominal distention and pain Recommendations: - Continue renally dosed Unasyn (12/13/2018-)x 2 weeks and then PO Augmentin x 4weeks to complete therapy - Consider vasc surgery eval - Serial ESR (ordered for today since Dr. Blood ordered stat BMP) - Monitor GI/ fxn Management d/w patient, RN Shaunna, and with Dr. Olmstead Consultation Date/Type/Reason Admit Date/Time Dec 09, 2018 at 14:30 Initial Consult Date 12/10/18 Requesting Provider: HARVINDER BLOOD MD Date/Time of Note DATE: 12/17/18 TIME: 13:43 24 HR Interval Summary Free Text/Dictation C/o abdominal distention and pain. Does not know if he is passing flatus and does not recall last BM. Declines pain medication. Pt refusing some meds but taking IV Unasyn. Pt with poor appetite. Pt asking me for update on his renal function and infection status. Remains afebrile with normal WBC yesterday. No beds available yet at [facility] per d/w nursing. Exam/Review of Systems Exam Vitals Vital Signs Date Temp Pulse Resp B/P (MAP) Pulse Ox O2 O2 Flow FiO2 Time Delivery Rate 12/17/18 85 12:26 12/17/18 98.1 20 133/51 99 Nasal 11:21 (78) Cannula Intake and Output 12/16/18 12/16/18 12/17/18 1515:00 23:00 07:00 IntakeIntake Total 200 ml OutputOutput Total 500 ml BalanceBalance -300 ml Exam Constitutional: alert, oriented, well developed, frail, other (thin, cachectic) Psych: depression (withdrawn with sad face but started to smile when I told him that his Cr went down a little bit yesterday and said "Thank you") Head: normocephalic, atraumatic ENMT: nl external ears & nose, nl nasal mucosa & septum (no thrush) Neck: supple Respiratory: clear to auscultation, normal air movement Cardiovascular: regular rate and rhythm, nl pulses; No edema Gastrointestinal: soft, distended, tender Musculoskeletal: other (LUE AVF graft site with no TTP, no bruit, no thrill) Extremities: normal pulses, other (partial amputation of R 2nd fingers and L 2nd and 3rd fingers; [place] discoloration of R middle finger distally; R 3rd and 4th fingers are swollen); No edema 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: nl mental status, nl speech, nl strength Skin: nl turgor Results Result Diagram: 12/16/18 0504 12/16/18 0525 Results 24hrs Laboratory Tests Test 12/16/18 17:07 12/16/18 20:52 12/17/18 07:45 12/17/18 11:19 Bedside Glucose 104 132 89 120 Imaging Imaging CXR 12/16/2018: Mild bilateral infrahilar atelectasis and trace bilateral pleur al effusions.. Medications Medication Current Medications Prednisone (Prednisone) 5 mg DAILY PO Last administered on 12/17/18at 08:52; Admin Dose 5 MG; Start 12/10/18 at 09:00 Diagnostic Test (Pha) (Accu-Chek) 1 ea 02 XX Last administered on 12/16/18at 01:55; Admin Dose 1 EA; Start 12/10/18 at 02:00 Ondansetron HCl (Zofran Inj) 4 mg Q6H PRN IV NAUSEA/VOMITING Last administered on 12/17/18at 12:04; Admin Dose 4 MG; Start 12/09/18 at 18:30 Acetaminophen (Tylenol Tab) 650 mg Q6H PRN PO .PAIN 1-3 OR TEMP Last administered on 12/09/18at 22:14; Admin Dose 650 MG; Start 12/09/18 at 18:30 Docusate Sodium (Colace) 100 mg Q12H PRN PO .CONSTIPATION; Start 12/09/18 at 18:30 Bisacodyl (Dulcolax) 5 mg DAILY PRN PO .CONSTIPATION; Start 12/09/18 at 18:30 Famotidine (Pepcid) 20 mg DAILY PO Last administered on 12/17/18at 08:52; Admin Dose 20 MG; Start 12/09/18 at 21:00 Heparin Sodium (Porcine) (Heparin (5000 Units/1ml)) 5,000 unit Q12 SC ; Start 12/09/18 at 21:00 Miscellaneous Information 1 ea NOTE XX ; Start 12/09/18 at 18:30 Glucose (Glutose) 15 gm Q15M PRN PO DECREASED GLUCOSE; Start 12/09/18 at 18:30 Glucose (Glutose) 22.5 gm Q15M PRN PO DECREASED GLUCOSE; Start 12/09/18 at 18:30 Dextrose (D50w Syringe) 25 ml Q15M PRN IV DECREASED GLUCOSE; Start 12/09/18 at 18:30 Dextrose (D50w Syringe) 50 ml Q15M PRN IV DECREASED GLUCOSE; Start 12/09/18 at 18:30 Glucagon (Glucagen) 1 mg Q15M PRN IM DECREASED GLUCOSE; Start 12/09/18 at 18:30 Glucose (Glutose) 15 gm Q15M PRN BUCCAL DECREASED GLUCOSE; Start 12/09/18 at 18:30 Hydralazine HCl (Apresoline) 20 mg Q4 PRN IV SBP > 160 Last administered on 12/09/18at 21:32; Admin Dose 20 MG; Start 12/09/18 at 21:00 Clonidine (Catapres) 0.1 mg Q6H PRN PO SBP> 160 Last administered on 12/09/18 22:14; Admin Dose 0.1 MG; Start 12/09/18 at 21:00 Amlodipine Besylate (Norvasc) 10 mg DAILY PO Last administered on 12/16/18 08:13; Admin Dose 10 MG; Start 12/09/18 at 21:00 Zolpidem Tartrate (Ambien) 5 mg HS PRN PO INSOMNIA; Start 12/09/18 at 23:30 Acetaminophen/ Hydrocodone Bitart ([place] (10/325)) 1 tab Q6H PRN PO MODERATE PAIN LEVEL 4-6 Last administered on 12/17/18 12:04; Admin Dose 1 TAB; Start 12/10/18 at 19:00 Clonidine (Catapres) 0.1 mg BID PO Last administered on 12/16/18 20:48; Admin Dose 0.1 MG; Start 12/10/18 at 21:00 Hydralazine HCl (Apresoline) 25 mg Q8 PO Last administered on 12/17/18 05:46; Admin Dose 25 MG; Start 12/10/18 at 22:00 Tamsulosin HCl (Flomax) 0.4 mg HS PO Last administered on 12/16/18 20:48; Admin Dose 0.4 MG; Start 12/10/18 at 21:00 Insulin Human NPH (Humulin N) 4 unit DAILY@0900 SC Last administered on 12/16/18 08:24; Admin Dose 4 UNIT; Start 12/12/18 at 09:00 Insulin Glargine (Lantus) 8 units DAILY@2000 SC Last administered on 12/15/18 22:30; Admin Dose 8 UNITS; Start 12/12/18 at 20:00 Ampicillin Sodium/ Sulbactam Sodium 50 ml @ 100 mls/hr Q12 IVPB Last administered on 12/17/18 08:52; Admin Dose 100 MLS/HR; Start 12/13/18 at 13:00 Insulin Aspart (Novolog Insulin Pen) 3 unit AC LUNCH DINNER SC Last administered on 12/15/18 17:00; Admin Dose 3 UNIT; Start 12/13/18 at 17:30 Tacrolimus (Prograf) 1 mg QHS PO Last administered on 12/16/18 20:56; Admin Dose 1 MG; Start 12/13/18 at 21:00 Insulin Aspart (Novolog Insulin Pen) 3 unit AC BREAKFAST SC Last administered on 12/16/18 08:24; Admin Dose 3 UNIT; Start 12/15/18 at 07:00 Insulin Aspart (Novolog Insulin Pen) NOVOLOG *MILD* ALGORITHM AC DINNER BEDTIME SC Last administered on 12/15/18 22:30; Admin Dose 1 UNIT; Start 12/14/18 at 17:30 Insulin Aspart (Novolog Insulin Pen) NOVOLOG *CUSTOM* ALGORITHM AC BREAKFAST LUNCH SC ; Start 12/15/18 at 07:00 Escitalopram Oxalate (Lexapro) 10 mg DAILY PO Last administered on 12/17/18 08:52; Admin Dose 10 MG; Start 12/14/18 at 14:00 Morphine Sulfate (morphine) 6 mg Q4H PRN PO SEVERE PAIN LEVEL 7-10; Start 12/14/18 at 23:00 Tacrolimus (Prograf) 1 mg QAM PO Last administered on 12/17/18 11:18; Admin Dose 1 MG; Start 12/16/18 at 09:00 Miscellaneous Information (* Miscellaneous Pharmacy Order) GIVE VELTASSA 16.8 GM X1 ONCE XX ; Start 12/15/18 at 10:30 Metoclopramide HCl (Reglan) 10 mg Q6H PRN IV NAUSEA; Start 12/15/18 at 18:30 Sodium Bicarbonate (Sodium Bicarbonate Tab) 650 mg BID PO Last administered on 12/17/18at 08:52; Admin Dose 650 MG; Start 12/16/18 at 13:00 CYNTHIA SHANNON NP Dec 17, 2018 13:43
--- NOTE | 2018-12-17 13:45 | CONS ---
Assessment/Plan Assessment/Plan Problems: (1) Type 2 diabetes mellitus with diabetic peripheral angiopathy with gangrene Status: Chronic Comment: Excellent glycemic control. Cont. current insulin doses. Qualifiers: Diabetes mellitus group home insulin use: with group home use Qualified Codes: E11.52 - Type 2 diabetes mellitus with diabetic peripheral angiopathy with gangrene; Z79.4 - atm servicer (current) use of insulin Consultation Date/Type/Reason Admit Date/Time Dec 09, 2018 at 14:30 Initial Consult Date 12/10/18 Type of Consult Endocrinology Reason for Consultation [id number] Requesting Provider: HARVINDER BLOOD MD Date/Time of Note DATE: 12/17/18 TIME: 13:42 24 HR Interval Summary Constitutional: no complaints Detailed Summary Respiratory: no complaints Cardiovascular: no complaints Gastrointestinal: pain, constipation, other (distension, bloating, feels like belly is full of water) Genitourinary: no complaints Musculoskeletal: no complaints Neurologic: no complaints Exam/Review of Systems Exam Vitals VS - Last 72 Hours, by Label Date Temp Pulse Resp B/P (MAP) Pulse Ox O2 O2 Flow FiO2 Time Delivery Rate 12/17/18 85 12:26 12/17/18 98.1 87 20 133/51 99 Nasal 11:21 (78) Cannula 12/17/18 78 08:19 12/17/18 98.1 78 20 107/52 96 Room Air 07:38 (70) 12/17/18 81 04:00 12/17/18 98.5 80 19 127/47 98 03:39 (73) 12/17/18 63 00:00 12/16/18 98.0 77 19 135/59 98 23:12 (84) 12/16/18 80 20:00 12/16/18 97.4 84 19 127/53 97 19:13 (77) 85 12/16/18 76 16:36 12/16/18 98.3 83 18 136/64 100 16:04 (88) 12/16/18 81 12:20 12/16/18 97.9 78 19 124/68 98 11:40 (86) 12/16/18 98 08:32 12/16/18 97.9 93 19 150/63 100 08:00 (92) 12/16/18 79 04:00 12/16/18 98.2 84 19 106/43 99 03:18 (64) 12/16/18 79 00:00 12/15/18 98.1 96 19 117/53 99 23:12 (74) 12/15/18 78 20:00 12/15/18 98.1 91 19 119/51 98 19:32 (73) 12/15/18 92 16:01 12/15/18 97.9 86 19 114/44 96 15:44 (67) 12/15/18 97.7 79 18 130/56 100 Nasal 12:42 (80) Cannula 12/15/18 82 12:01 12/15/18 103 08:01 12/15/18 77 04:00 12/15/18 97.9 78 18 122/55 98 03:56 (77) 12/15/18 71 00:00 12/14/18 98.2 85 19 112/54 99 23:56 (73) 12/14/18 98.0 84 19 117/56 99 20:45 (76) 12/14/18 92 20:00 12/14/18 86 16:02 12/14/18 98.0 80 18 122/60 99 15:53 (80) Vital Signs Date Temp Pulse Resp B/P (MAP) Pulse Ox O2 O2 Flow FiO2 Time Delivery Rate 12/17/18 85 12:26 12/17/18 98.1 20 133/51 99 Nasal 11:21 (78) Cannula Intake and Output 12/16/18 12/16/18 12/17/18 1515:00 23:00 07:00 IntakeIntake Total 200 ml OutputOutput Total 500 ml BalanceBalance -300 ml Constitutional: alert, oriented, frail Psych: anxiety, depression Respiratory: clear to auscultation, normal air movement Cardiovascular: regular rate and rhythm; No edema, No murmurs/extra sounds, No rub Gastrointestinal: soft, nl liver, spleen, bowel sounds, distended, tender (inferior quadrants); No non-tender Musculoskeletal: No nl extremities to inspection (R 3rd finger w/ demarcating distal gangrene, R 2nd finger and L 3rd finger w/ distal amp sites) Extremities: No cyanosis, No clubbing, No edema 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: COMMERCIAL LENDING ASSISTANT II-XII intact, nl mental status, nl speech, nl strength Results Result Diagram: 12/16/18 0502 12/16/18 0596 Results 24hrs Laboratory Tests Test 12/16/18 17:07 12/16/18 20:52 12/17/18 07:45 12/17/18 11:19 Bedside Glucose 104 132 89 120 Medications Medication Current Medications Prednisone (Prednisone) 5 mg DAILY PO Last administered on 12/17/18at 08:52; Admin Dose 5 MG; Start 12/10/18 at 09:00 Diagnostic Test (Pha) (Accu-Chek) 1 ea 02 XX Last administered on 12/16/18at 0 1:55; Admin Dose 1 EA; Start 12/10/18 at 02:00 Ondansetron HCl (Zofran Inj) 4 mg Q6H PRN IV NAUSEA/VOMITING Last administered on 12/17/18at 12:04; Admin Dose 4 MG; Start 12/09/18 at 18:30 Acetaminophen (Tylenol Tab) 650 mg Q6H PRN PO .PAIN 1-3 OR TEMP Last administered on 12/09/18at 22:14; Admin Dose 650 MG; Start 12/09/18 at 18:30 Docusate Sodium (Colace) 100 mg Q12H PRN PO .CONSTIPATION; Start 12/09/18 at 18:30 Bisacodyl (Dulcolax) 5 mg DAILY PRN PO .CONSTIPATION; Start 12/09/18 at 18:30 Famotidine (Pepcid) 20 mg DAILY PO Last administered on 12/17/18at 08:52; Admin Dose 20 MG; Start 12/09/18 at 21:00 Heparin Sodium (Porcine) (Heparin (5000 Units/1ml)) 5,000 unit Q12 SC ; Start 12/09/18 at 21:00 Miscellaneous Information 1 ea NOTE XX ; Start 12/09/18 at 18:30 Glucose (Glutose) 15 gm Q15M PRN PO DECREASED GLUCOSE; Start 12/09/18 at 18:30 Glucose (Glutose) 22.5 gm Q15M PRN PO DECREASED GLUCOSE; Start 12/09/18 at 18:30 Dextrose (D50w Syringe) 25 ml Q15M PRN IV DECREASED GLUCOSE; Start 12/09/18 at 18:30 Dextrose (D50w Syringe) 50 ml Q15M PRN IV DECREASED GLUCOSE; Start 12/09/18 at 18:30 Glucagon (Glucagen) 1 mg Q15M PRN IM DECREASED GLUCOSE; Start 12/09/18 at 18:30 Glucose (Glutose) 15 gm Q15M PRN BUCCAL DECREASED GLUCOSE; Start 12/09/18 at 18:30 Hydralazine HCl (Apresoline) 20 mg Q4 PRN IV SBP > 160 Last administered on 12/09/18 21:32; Admin Dose 20 MG; Start 12/09/18 at 21:00 Clonidine (Catapres) 0.1 mg Q6H PRN PO SBP> 160 Last administered on 12/09/18 22:14; Admin Dose 0.1 MG; Start 12/09/18 at 21:00 Amlodipine Besylate (Norvasc) 10 mg DAILY PO Last administered on 12/16/18 08 :13; Admin Dose 10 MG; Start 12/09/18 at 21:00 Zolpidem Tartrate (Ambien) 5 mg HS PRN PO INSOMNIA; Start 12/09/18 at 23:30 Acetaminophen/ Hydrocodone Bitart ([place] (10/325)) 1 tab Q6H PRN PO MODERATE PAIN LEVEL 4-6 Last administered on 12/17/18 12:04; Admin Dose 1 TAB; Start 12/10/18 at 19:00 Clonidine (Catapres) 0.1 mg BID PO Last administered on 12/16/18 20:48; Admin Dose 0.1 MG; Start 12/10/18 at 21:00 Hydralazine HCl (Apresoline) 25 mg Q8 PO Last administered on 12/17/18 05:46; Admin Dose 25 MG; Start 12/10/18 at 22:00 Tamsulosin HCl (Flomax) 0.4 mg HS PO Last administered on 12/16/18 20:48; Admin Dose 0.4 MG; Start 12/10/18 at 21:00 Insulin Human NPH (Humulin N) 4 unit DAILY@0900 SC Last administered on 12/16/18 08:24; Admin Dose 4 UNIT; Start 12/12/18 at 09:00 Insulin Glargine (Lantus) 8 units DAILY@2000 SC Last administered on 12/15/18 22:30; Admin Dose 8 UNITS; Start 12/12/18 at 20:00 Ampicillin Sodium/ Sulbactam Sodium 50 ml @ 100 mls/hr Q12 IVPB Last administered on 12/17/18 08:52; Admin Dose 100 MLS/HR; Start 12/13/18 at 13:00 Insulin Aspart (Novolog Insulin Pen) 3 unit AC LUNCH DINNER SC Last administered on 12/15/18 17:00; Admin Dose 3 UNIT; Start 12/13/18 at 17:30 Tacrolimus (Prograf) 1 mg QHS PO Last administered on 12/16/18 20:56; Admin Dose 1 MG; Start 12/13/18 at 21:00 Insulin Aspart (Novolog Insulin Pen) 3 unit AC BREAKFAST SC Last administered on 12/16/18 08:24; Admin Dose 3 UNIT; Start 12/15/18 at 07:00 Insulin Aspart (Novolog Insulin Pen) NOVOLOG *MILD* ALGORITHM AC DINNER BEDTIME SC Last administered on 12/15/18 22:30; Admin Dose 1 UNIT; Start 12/14/18 at 17:30 Insulin Aspart (Novolog Insulin Pen) NOVOLOG *CUSTOM* ALGORITHM AC BREAKFAST LUNCH SC ; Start 12/15/18 at 07:00 Escitalopram Oxalate (Lexapro) 10 mg DAILY PO Last administered on 12/17/18 08:52; Admin Dose 10 MG; Start 12/14/18 at 14:00 Morphine Sulfate (morphine) 6 mg Q4H PRN PO SEVERE PAIN LEVEL 7-10; Start 12/14/18 at 23:00 Tacrolimus (Prograf) 1 mg QAM PO Last administered on 12/17/18 11:18; Admin Dose 1 MG; Start 12/16/18 at 09:00 Miscellaneous Information (* Miscellaneous Pharmacy Order) GIVE VELTASSA 16.8 GM X1 ONCE XX ; Start 12/15/18 at 10:30 Metoclopramide HCl (Reglan) 10 mg Q6H PRN IV NAUSEA; Start 12/15/18 at 18:30 Sodium Bicarbonate (Sodium Bicarbonate Tab) 650 mg BID PO Last administered on 12/17/18 08:52; Admin Dose 650 MG; Start 12/16/18 at 13:00 SYLVESTER CAGLE MD Dec 17, 2018 13:44
--- NOTE | 2018-12-17 15:34 | PN ---
Date/Time of Note Date/Time of Note DATE: 12/17/18 TIME: 15:27 Assessment/Plan VTE Prophylaxis Risk score (from Nsg)>0 risk: 2 SCD applied (from Nsg): No SCD contraindicated: low risk/ambulating Pharmacological prophylaxis: heparin Lines/Catheters IV Catheter Type (from Nrsg): Mid Line Central line still needed: Yes Urinary Cath still in place: Yes Reason Cath still needed: urinary retention Assessment/Plan Hospital Course Patient with creatinine of 4.33 and elevated potassium, patient refused starting hemodialysis, depressed, refusing medications and Accu-Chek however agreed to IV antibiotic, pending psychiatric evaluation. Patient is approved for transfer to [facility] for evaluation and management of acute on chronic renal failure and kidney biopsy, awaiting for bed availability. Assessment/Plan -Severe sepsis with Staphylococcus bacteremia, continue antibiotics per ID. Dr. Olmstead is following in infection disease consultation. -Right middle finger cellulitis with gangrene. S/p evaluation by Dr. Castro in orthopedic surgery consultation. Dr. Sims is asked to see patient in vascular surgery consultation -Hyperkalemia -Acute on chronic renal failure, patient baseline creatinine is 1.5 during last admission. Continue IV fluids, bicarb, patient refused starting hemodialysis. Dr. Meyers is following in nephrology consultation. -Status post cadaveric kidney transplant in 2009. -Poorly controlled diabetes mellitus type 2, hemoglobin A1c is 10.5. Continue Lantus and NovoLog. Dr. Almonte is following in endocrinology consultation. -Hypertension. -History of right fourth finger gangrene -History of Juan's esophagus and severe gastritis. -Chronic HCV infection -Rheumatoid arthritis -History of polysubstance and IV drug use -Poor medical compliance with his diabetic regimen Further recommendations based on clinical course. Plan of care discussed with Dr. Maier. Result Diagram: 12/16/18 0504 12/17/18 1358 Results 24hrs Laboratory Tests Test 12/16/18 17:07 12/16/18 20:52 12/17/18 07:45 12/17/18 11:19 Bedside Glucose 104 132 89 120 Test 12/17/18 13:58 Sodium Level 139 Potassium Level 5.8 H Chloride Level 109 Carbon Dioxide Level 15 L Anion Gap 15 H Blood Urea Nitrogen 49 H Creatinine 4.33 H Est Glomerular 14 L Filtrat Rate mL/min Glucose Level 130 Calcium Level 9.6 Exam/Review of Systems Exam Vitals Vital Signs Date Temp Pulse Resp B/P (MAP) Pulse Ox O2 O2 Flow FiO2 Time Delivery Rate 12/17/18 97.9 88 20 120/50 98 Room Air 15:13 (73) Intake and Output 12/16/18 12/16/18 12/17/18 1515:00 23:00 07:00 IntakeIntake Total 200 ml OutputOutput Total 500 ml BalanceBalance -300 ml Exam Constitutional: alert, oriented Respiratory: clear to auscultation Cardiovascular: nl pulses Gastrointestinal: soft, non-tender Musculoskeletal: nl extremities to inspection Extremities: normal pulses, other (Right middle finger tip necrosis, resolving) 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: nl mental status Skin: nl turgor Results Results 24hrs Laboratory Tests Test 12/16/18 17:07 12/16/18 20:52 12/17/18 07:45 12/17/18 11:19 Bedside Glucose 104 132 89 120 Test 12/17/18 13:58 Sodium Level 139 Potassium Level 5.8 H Chloride Level 109 Carbon Dioxide Level 15 L Anion Gap 15 H Blood Urea Nitrogen 49 H Creatinine 4.33 H Est Glomerular 14 L Filtrat Rate mL/min Glucose Level 130 Calcium Level 9.6 Medications Medication Current Medications Prednisone (Prednisone) 5 mg DAILY PO Last administered on 12/17/18at 08:52; Admin Dose 5 MG; Start 12/10/18 at 09:00 Diagnostic Test (Pha) (Accu-Chek) 1 ea 02 XX Last administered on 12/16/18at 01:55; Admin Dose 1 EA; Start 12/10/18 at 02:00 Ondansetron HCl (Zofran Inj) 4 mg Q6H PRN IV NAUSEA/VOMITING Last administered on 12/17/18at 12:04; Admin Dose 4 MG; Start 12/09/18 at 18:30 Acetaminophen (Tylenol Tab) 650 mg Q6H PRN PO .PAIN 1-3 OR TEMP Last administered on 12/09/18at 22:14; Admin Dose 650 MG; Start 12/09/18 at 18:30 Docusate Sodium (Colace) 100 mg Q12H PRN PO .CONSTIPATION; Start 12/09/18 at 18:30 Bisacodyl (Dulcolax) 5 mg DAILY PRN PO .CONSTIPATION; Start 12/09/18 at 18:30 Famotidine (Pepcid) 20 mg DAILY PO Last administered on 12/17/18at 08:52; Admin Dose 20 MG; Start 12/09/18 at 21:00 Heparin Sodium (Porcine) (Heparin (5000 Units/1ml)) 5,000 unit Q12 SC ; Start 12/09/18 at 21:00 Miscellaneous Information 1 ea NOTE XX ; Start 12/09/18 at 18:30 Glucose (Glutose) 15 gm Q15M PRN PO DECREASED GLUCOSE; Start 12/09/18 at 18:30 Glucose (Glutose) 22.5 gm Q15M PRN PO DECREASED GLUCOSE; Start 12/09/18 at 18:30 Dextrose (D50w Syringe) 25 ml Q15M PRN IV DECREASED GLUCOSE; Start 12/09/18 at 18:30 Dextrose (D50w Syringe) 50 ml Q15M PRN IV DECREASED GLUCOSE; Start 12/09/18 at 18:30 Glucagon (Glucagen) 1 mg Q15M PRN IM DECREASED GLUCOSE; Start 12/09/18 at 18:30 Glucose (Glutose) 15 gm Q15M PRN BUCCAL DECREASED GLUCOSE; Start 12/09/18 at 18:30 Hydralazine HCl (Apresoline) 20 mg Q4 PRN IV SBP > 160 Last administered on 12/09/18at 21:32; Admin Dose 20 MG; Start 12/09/18 at 21:00 Clonidine (Catapres) 0.1 mg Q6H PRN PO SBP> 160 Last administered on 12/09/18at 22:14; Admin Dose 0.1 MG; Start 12/09/18 at 21:00 Amlodipine Besylate (Norvasc) 10 mg DAILY PO Last administered on 12/16/18at 08:13; Admin Dose 10 MG; Start 12/09/18 at 21:00 Zolpidem Tartrate (Ambien) 5 mg HS PRN PO INSOMNIA; Start 12/09/18 at 23:30 Acetaminophen/ Hydrocodone Bitart ([place] (10/325)) 1 tab Q6H PRN PO MODERATE PAIN LEVEL 4-6 Last administered on 12/17/18at 12:04; Admin Dose 1 TAB; Start 12/10/18 at 19:00 Clonidine (Catapres) 0.1 mg BID PO Last administered on 12/16/18 20:48; Admin Dose 0.1 MG; Start 12/10/18 at 21:00 Hydralazine HCl (Apresoline) 25 mg Q8 PO Last administered on 12/17/18 14:56; Admin Dose 25 MG; Start 12/10/18 at 22:00 Tamsulosin HCl (Flomax) 0.4 mg HS PO Last administered on 12/16/18 20:48; Admin Dose 0.4 MG; Start 12/10/18 at 21:00 Insulin Human NPH (Humulin N) 4 unit DAILY@0900 SC Last administered on 12/16/18 08:24; Admin Dose 4 UNIT; Start 12/12/18 at 09:00 Insulin Glargine (Lantus) 8 units DAILY@2000 SC Last administered on 12/15/18 22:30; Admin Dose 8 UNITS; Start 12/12/18 at 20:00 Ampicillin Sodium/ Sulbactam Sodium 50 ml @ 100 mls/hr Q12 IVPB Last administered on 12/17/18 08:52; Admin Dose 100 MLS/HR; Start 12/13/18 at 13:00 Insulin Aspart (Novolog Insulin Pen) 3 unit AC LUNCH DINNER SC Last adm inistered on 12/15/18 17:00; Admin Dose 3 UNIT; Start 12/13/18 at 17:30 Tacrolimus (Prograf) 1 mg QHS PO Last administered on 12/16/18 20:56; Admin Dose 1 MG; Start 12/13/18 at 21:00 Insulin Aspart (Novolog Insulin Pen) 3 unit AC BREAKFAST SC Last administered on 12/16/18 08:24; Admin Dose 3 UNIT; Start 12/15/18 at 07:00 Insulin Aspart (Novolog Insulin Pen) NOVOLOG *MILD* ALGORITHM AC DINNER BEDTIME SC Last administered on 12/15/18 22:30; Admin Dose 1 UNIT; Start 12/14/18 at 17:30 Insulin Aspart (Novolog Insulin Pen) NOVOLOG *CUSTOM* ALGORITHM AC BREAKFAST LUNCH SC ; Start 12/15/18 at 07:00 Escitalopram Oxalate (Lexapro) 10 mg DAILY PO Last administered on 12/17/18 08:52; Admin Dose 10 MG; Start 12/14/18 at 14:00 Morphine Sulfate (morphine) 6 mg Q4H PRN PO SEVERE PAIN LEVEL 7-10; Start 12/14/18 at 23:00 Tacrolimus (Prograf) 1 mg QAM PO Last administered on 12/17/18at 11:18; Admin Dose 1 MG; Start 12/16/18 at 09:00 Miscellaneous Information (* Miscellaneous Pharmacy Order) GIVE VELTASSA 16.8 GM X1 ONCE XX ; Start 12/15/18 at 10:30 Metoclopramide HCl (Reglan) 10 mg Q6H PRN IV NAUSEA; Start 12/15/18 at 18:30 Sodium Bicarbonate (Sodium Bicarbonate Tab) 650 mg BID PO Last administered on 12/17/18at 08:52; Admin Dose 650 MG; Start 12/16/18 at 13:00 LETI RODRIGUEZ Dec 17, 2018 15:34
--- NOTE | 2018-12-17 15:58 | PN ---
Date/Time of Note Date/Time of Note DATE: 12/17/18 TIME: 15:58 Assessment/Plan VTE Prophylaxis Risk score (from Ns)>0 risk: 2 SCD applied (from Ns): No SCD contraindicated: low risk/ambulating Pharmacological prophylaxis: NA/contraindicated Pharm contraindication: low risk/ambulating Lines/Catheters [facility] Urinary Cath still in place: Yes Reason Cath still needed: urinary retention Assessment/Plan Hospital Course 58 y/o with 58 y/o with #. Acute on chronic renal failure, spoke to [facility] Cr was 2.5 in 10/20 now 3.19> 3.9 culd be due to sepsis vs ATN due to sepsis/meds vs prograft toxicity vs mild hydro; Cr continue to rise. Pt also has underlying DM nephropathy ;hold myfortic due to bacterimia;dec Prograft already to 2/2 from 3/2 Levels 12m resend new levels , Cr continue to rise, # Hyperkalemia, could be secondary to uncontrolled sugars/worsening renal failure/acidosis , vs prograft , dose reduced #. Non gap Metabolic acidosis.due to worsening renal failure #. Sepsis # Right middle finger cellulitis with gangrene. # Status post donor renal transplantation in 2009. # Hypertension. #. Right 4th toe gangrene. #. Severe peripheral vascular disease. #. History of Juan's esophagitis. #. Chronic hepatitis C virus infection. # History of polysubstance use. #. DM type II Assessment/Plan (Daily) - Kayexalate for hyperkalemia> pt agreed -We will start the patient on bicarb drip > pt refused> po bicarb - Cr is stable today infact downtrended a bit probaly had ATN which could have peaked, montior Cr , pt refusing HD -cw Prograft 11/03 -[place], -Monitor potassium, urine output, patient might need hemodialysis in the next 24 hours - Hold Myfortic due to staph bacteremia. Continue with prednisone -ID to renally dose all antibiotics -Continue with Flomax , urology following - Pending transfer -Renally dose all meds -Avoid nephrotoxins -repeat blood cultures neg -DM control per primary Result Diagram: 12/16/18 0504 12/17/18 1358 Results 24hrs Laboratory Tests Test 12/16/18 17:07 2/13/19 20:52 12/17/18 07:45 12/17/18 11:19 Bedside Glucose 104 132 89 120 Test 12/17/18 13:58 Sodium Level 139 Potassium Level 5.8 H Chloride Level 109 Carbon Dioxide Level 15 L Anion Gap 15 H Blood Urea Nitrogen 49 H Creatinine 4.33 H Est Glomerular 14 L Filtrat Rate mL/min Glucose Level 130 Calcium Level 9.6 Subjective 24 Hr Interval Summary Free Text/Dictation Feels slight abdominal distension refused iv bicarb Exam/Review of Systems Exam Vitals Vital Signs Date Temp Pulse Resp B/P (MAP) Pulse Ox O2 O2 Flow FiO2 Time Delivery Rate 12/17/18 97.9 88 20 120/50 98 Room Air 15:13 (73) Intake and Output 12/16/18 12/16/18 12/17/18 1515:00 23:00 07:00 IntakeIntake Total 200 ml OutputOutput Total 500 ml BalanceBalance -300 ml Exam Constitutional: alert, oriented Respiratory: clear to auscultation Cardiovascular: regular rate and rhythm Gastrointestinal: soft, abdominal distension Left flank tenderness Gangrene Results Results 24hrs Laboratory Tests Test 12/16/18 17:07 12/16/18 20:52 12/17/18 07:45 12/17/18 11:19 Bedside Glucose 104 132 89 120 Test 12/17/18 13:58 Sodium Level 139 Potassium Level 5.8 H Chloride Level 109 Carbon Dioxide Level 15 L Anion Gap 15 H Blood Urea Nitrogen 49 H Creatinine 4.33 H Est Glomerular 14 L Filtrat Rate mL/min Glucose Level 130 Calcium Level 9.6 Medications Medication Current Medications Prednisone (Prednisone) 5 mg DAILY PO Last administered on 12/17/18at 08:52; Admin Dose 5 MG; Start 12/10/18 at 09:00 Diagnostic Test (Pha) (Accu-Chek) 1 ea 02 XX Last administered on 12/16/18at 01:55; Admin Dose 1 EA; Start 12/10/18 at 02:00 Ondansetron HCl (Zofran Inj) 4 mg Q6H PRN IV NAUSEA/VOMITING Last administered on 12/17/18at 12:04; Admin Dose 4 MG; Start 12/09/18 at 18:30 Acetaminophen (Tylenol Tab) 650 mg Q6H PRN PO .PAIN 1-3 OR TEMP Last administered on 12/09/18at 22:14; Admin Dose 650 MG; Start 12/09/18 at 18:30 Docusate Sodium (Colace) 100 mg Q12H PRN PO .CONSTIPATION; Start 12/09/18 at 18:30 Bisacodyl (Dulcolax) 5 mg DAILY PRN PO .CONSTIPATION; Start 12/09/18 at 18:30 Famotidine (Pepcid) 20 mg DAILY PO Last administered on 12/17/18at 08:52; Admin Dose 20 MG; Start 12/09/18 at 21:00 Heparin Sodium (Porcine) (Heparin (5000 Units/1ml)) 5,000 unit Q12 SC ; Start 12/09/18 at 21:00 Miscellaneous Information 1 ea NOTE XX ; Start 12/09/18 at 18:30 Glucose (Glutose) 15 gm Q15M PRN PO DECREASED GLUCOSE; Start 12/09/18 at 18:30 Glucose (Glutose) 22.5 gm Q15M PRN PO DECREASED GLUCOSE; Start 12/09/18 at 18:30 Dextrose (D50w Syringe) 25 ml Q15M PRN IV DECREASED GLUCOSE; Start 12/09/18 at 18:30 Dextrose (D50w Syringe) 50 ml Q15M PRN IV DECREASED GLUCOSE; Start 12/09/18 at 18:30 Glucagon (Glucagen) 1 mg Q15M PRN IM DECREASED GLUCOSE; Start 12/09/18 at 18:30 Glucose (Glutose) 15 gm Q15M PRN BUCCAL DECREASED GLUCOSE; Start 12/09/18 at 18 :30 Hydralazine HCl (Apresoline) 20 mg Q4 PRN IV SBP > 160 Last administered on 12/09/18at 21:32; Admin Dose 20 MG; Start 12/09/18 at 21:00 Clonidine (Catapres) 0.1 mg Q6H PRN PO SBP> 160 Last administered on 12/09/18at 22:14; Admin Dose 0.1 MG; Start 12/09/18 at 21:00 Amlodipine Besylate (Norvasc) 10 mg DAILY PO Last administered on 12/16/18at 08:13; Admin Dose 10 MG; Start 12/09/18 at 21:00 Zolpidem Tartrate (Ambien) 5 mg HS PRN PO INSOMNIA; Start 12/09/18 at 23:30 Acetaminophen/ Hydrocodone Bitart ([place] ()) 1 tab Q6H PRN PO MODERATE PAIN LEVEL 4-6 Last administered on 12/17/18 12:04; Admin Dose 1 TAB; Start 12/10/18 at 19:00 Clonidine (Catapres) 0.1 mg BID PO Last administered on 12/16/18 20:48; Admin Dose 0.1 MG; Start 12/10/18 at 21:00 Hydralazine HCl (Apresoline) 25 mg Q8 PO Last administered on 12/17/18 14:56; Admin Dose 25 MG; Start 12/10/18 at 22:00 Tamsulosin HCl (Flomax) 0.4 mg HS PO Last administered on 12/16/18 20:48; Admin Dose 0.4 MG; Start 12/10/18 at 21:00 Insulin Human NPH (Humulin N) 4 unit DAILY@0900 SC Last administered on 12/16/18 08:24; Admin Dose 4 UNIT; Start 12/12/18 at 09:00 Insulin Glargine (Lantus) 8 units DAILY@2000 SC Last administered on 12/15/18 22:30; Admin Dose 8 UNITS; Start 12/12/18 at 20:00 Ampicillin Sodium/ Sulbactam Sodium 50 ml @ 100 mls/hr Q12 IVPB Last administered on 12/17/18 08:52; Admin Dose 100 MLS/HR; Start 12/13/18 at 13:00 Insulin Aspart (Novolog Insulin Pen) 3 unit AC LUNCH DINNER SC Last administered on 12/15/18 17:00; Admin Dose 3 UNIT; Start 12/13/18 at 17:30 Tacrolimus (Prograf) 1 mg QHS PO Last administered on 12/16/18 20:56; Admin Dose 1 MG; Start 12/13/18 at 21:00 Insulin Aspart (Novolog Insulin Pen) 3 unit AC BREAKFAST SC Last administered on 12/16/18 08:24; Admin Dose 3 UNIT; Start 12/15/18 at 07:00 Insulin Aspart (Novolog Insulin Pen) NOVOLOG *MILD* ALGORITHM AC DINNER BEDTIME SC Last administered on 12/15/18 22:30; Admin Dose 1 UNIT; Start 12/14/18 at 17:30 Insulin Aspart (Novolog Insulin Pen) NOVOLOG *CUSTOM* ALGORITHM AC BREAKFAST LUNCH SC ; Start 12/15/18 at 07:00 Escitalopram Oxalate (Lexapro) 10 mg DAILY PO Last administered on 12/17/18at 08:52; Admin Dose 10 MG; Start 12/14/18 at 14:00 Morphine Sulfate (morphine) 6 mg Q4H PRN PO SEVERE PAIN LEVEL 7-10; Start 12/14/18 at 23:00 Tacrolimus (Prograf) 1 mg QAM PO Last administered on 12/17/18at 11:18; Admin Dose 1 MG; Start 12/16/18 at 09:00 Miscellaneous Information (* Miscellaneous Pharmacy Order) GIVE VELTASSA 16.8 GM X1 ONCE XX ; Start 12/15/18 at 10:30 Metoclopramide HCl (Reglan) 10 mg Q6H PRN IV NAUSEA; Start 12/15/18 at 18:30 Sodium Bicarbonate (Sodium Bicarbonate Tab) 1,300 mg TID PO ; Start 12/17/18 at 21:00 Sodium Polystyrene Sulfonate (Kayexelate 15 Gm Kit (Powder+Sorbitol)) 60 gm ONCE ONCE PO ; Start 12/17/18 at 16:00; Stop 12/17/18 at 16:01 HARVINDER BLOOD MD Dec 17, 2018 15:58
[2018-12-17] MEDS ORDERED: SODIUM POLYSTYRENE 15 GM KIT (POWDER + SORBITOL) PO ONE (16:00)
[2018-12-17] MEDS ORDERED: FUROSEMIDE 40 MG INJ IV ONE (16:00)
--- NOTE | 2018-12-17 19:32 | NUR ---
EOSS: NO ACUTE DISTRESS DURING DAY SHIFT. PT IS AOX4, RESPIRATIONS UNLABORED, VS STABLE. PT HAS BEEN REFUSING MOST OF THE MEDICATIONS THROUGHOUT THE DAY. HE REFUSED KAYAXELATE, NOVOLOG, HEPARIN, ETC. MD'S ARE AWARE OF PT REFUSING MEDICATIONS. TRANSFER TO [facility] IS STILL PENDING-NO ROOM AVAILABLE. ENDORSED TO [facility] [employer] [facility] NURSE.
[2018-12-17] MEDS: TAMSULOSIN (SR) 0.4 MG CAP PO SCH (21:16)
[2018-12-17] MEDS: INSULIN GLARGINE [LANTus] (100 UNITS/ML) SYG SC SCH (21:38)
[2018-12-18] VITALS (9 sets, daily range): BP systolic 110–133; BP diastolic 49–68; PULSE 75–95; RESP 18
[2018-12-18] MEDS: ACCU-CHEK XX SCH (02:00)
[2018-12-18] MEDS: INSULIN ASPART [NOVOLOG] 3 ML PEN SC SCH ×7 (07:00→21:00)
--- NOTE | 2018-12-18 07:09 | NUR ---
vitals stable no further complaints of pain . refused most of his meds .continue monitoring ,awaiting for [facility] placement
[2018-12-18] MEDS: FAMOTIDINE 20 MG TAB PO SCH (08:46)
[2018-12-18] MEDS: NA BICARBONATE 650 MG TAB PO SCH ×3 (08:46→21:43)
[2018-12-18] MEDS: TACROLIMUS 1 MG CAP PO SCH ×2 (08:46→21:44)
[2018-12-18] MEDS: ESCITALOPRAM 10 MG TAB PO SCH (08:46)
[2018-12-18] MEDS: predniSONE 5 MG TAB PO SCH (08:46)
[2018-12-18] MEDS: NPH, HUMAN INSULIN ISOPHANE 3ML VIAL SC SCH (08:49)
[2018-12-18] MEDS: AMLODIPINE 10 MG TAB PO SCH (08:54)
[2018-12-18] MEDS: HEPARIN 5,000 UNIT/1 ML VIAL SC SCH ×2 (08:54→21:00)
[2018-12-18] MEDS: AMPICILLIN/SULB 1.5GM/NS (PMX) 50 ML IVPB SCH ×2 (08:56→21:00)
--- NOTE | 2018-12-18 10:10 | PSY ---
Date/Time of Note Date/Time of Note DATE: 12/18/18 TIME: 10:05 Psychiatric Subjective Eval Consent Pt consented to telemedicine: No Subjective Evaluation Patient location: inpatient Chief Complaint: RIGHT 3RD FINGER TIP NECROTIC History of present illness Patient is 58-year-old male with underlying medical issues of right fourth finger cellulitis, gangrene osteomyelitis, diabetes mellitus type 2, end- stage renal disease, chronic HCV infection, rheumatoid arthritis, hypertension, Juan's esophagus, severe gastritis, and polysubstance. [id number] evaluation, patient is tearful he reports feeling hopeless and helpless, he denies suicidal ideation and contracted for safety patient is very fearful. Explained risk and benefits of his antidepressant Lexapro. Hospitalization: no Medical history Problems Medical Problems: (1) Abdominal pain Status: Acute (2) Abdominal pain Status: Acute (3) Abdominal pain Status: Resolved (4) Abdominal pain Status: Acute (5) Abdominal pain with vomiting Status: Acute (6) Acquired absence of finger of left hand Status: Chronic (7) Acquired absence of finger of right hand Status: Chronic (8) Acute kidney injury Status: Acute (9) Acute weakness Status: Acute (10) Juan's esophagus with dysplasia Status: Chronic (11) Cannabis abuse, uncomplicated Status: Chronic (12) Chronic kidney disease, stage III (moderate) Status: Chronic (13) Chronic superficial gastritis without bleeding Status: Chronic (14) Dehydration Status: Acute (15) Diabetic ketoacidosis Status: Resolved (16) Ecchymosis Status: Acute (17) Essential (primary) hypertension Status: Chronic (18) Finger osteomyelitis, left Status: Acute (19) Finger osteomyelitis, right Status: Acute (20) Gangrene of finger of right hand Status: Acute (21) General weakness Status: Acute (22) Generalized weakness Status: Acute (23) Hepatitis C infection Status: Chronic (24) History of end stage renal disease Status: Chronic (25) History of hyperparathyroidism Status: Resolved (26) Hyperkalemia Status: Acute (27) Hyperkalemia Status: Resolved (28) Hyperlipidemia Status: Chronic (29) Intractable vomiting Status: Acute (30) Major depressive disorder, single episode, mild Status: Acute (31) Nausea with vomiting Status: Acute (32) Nausea, vomiting, and diarrhea Status: Resolved (33) Onychomycosis Status: Chronic (34) Pain of finger Status: Acute (35) Pain of finger Status: Acute (36) Pain of finger of right hand Status: Acute (37) Pain of left leg Status: Acute (38) Paronychia Status: Acute (39) Paronychia Status: Acute (40) Paronychia of finger of right hand Status: Acute (41) Rheumatoid arthritis Status: Chronic (42) Severe sepsis Status: Acute (43) Tinea pedis Status: Acute (44) Tingling of skin Status: Resolved (45) Troponin level elevated Status: Acute (46) Type 2 diabetes mellitus with diabetic peripheral angiopathy with gangrene Status: Chronic (47) Type 2 diabetes mellitus with hyperglycemia Status: Chronic (48) Uncontrolled hypertension Status: Acute (49) Varicose ulceration Status: Acute Allergies: Coded Allergies: magnesium (Unverified Allergy, Intermediate, 12/09/18) NUMBNESS AND HOT FUSHES Substance Abuse Substance abuse history: Yes Social History Marital status: other DPA/Conservatorship: No Psychiatric Objective Eval Review of Systems: Review of Systems: Not Applicable Physical Examination: Physical Examination: Not Applicable Energy: Decreased Interest: Decreased Mental Status Examination: Appearance: Poor Hygiene Eye Contact: Fair Behavior: Cooperative Speech: Soft AFFECT: Flat Mood: Depressed Though Process: Linear Thought Content: Normal Orientation: x4 Cognition: Alert Insight: Mild Judgement: Mild Attention Span: Distractible Laboratory Results Laboratory Tests Test 12/16/18 10:44 12/16/18 17:07 12/16/18 20:52 12/17/18 07:45 Bedside Glucose 104 mg/dL 104 mg/dL 132 mg/dL 89 mg/dL Test 12/17/18 11:19 12/17/18 13:58 12/17/18 17:26 12/17/18 20:09 Bedside Glucose 120 mg/dL 180 mg/dL Erythrocyte 67 mm/Hr Sedimentation Rate Sodium Level 139 mmol/L 138 mmol/L Potassium Level 5.8 mmol/L 5.5 mmol/L Chloride Level 109 mmol/L 109 mmol/L Carbon Dioxide 15 mmol/L 14 mmol/L Level Anion Gap 15 15 Blood Urea Nitrogen 49 mg/dl 52 mg/dl Creatinine 4.33 mg/dl 4.36 mg/dl Est Glomerular 14 mL/min 14 mL/min Filtrat Rate mL/min Glucose Level 130 mg/dl 125 mg/dl Calcium Level 9.6 mg/dl 9.7 mg/dl Test 12/17/18 21:15 12/18/18 02:42 12/18/18 05:27 12/18/18 07:46 Bedside Glucose 200 mg/dL 195 mg/dL 127 mg/dL White Blood Count 6.0 10^3/ul Red Blood Count 2.68 10^6/ul Hemoglobin 8.7 g/dl Hematocrit 27.4 % Mean Corpuscular 102.2 fl Volume Mean Corpuscular 32.5 pg Hemoglobin Mean Corpuscular 31.8 g/dl Hemoglobin Concent Red Cell 12.7 % Distribution Width Platelet Count 188 10^3/UL Mean Platelet 10.6 fl Volume Immature 0.800 % Granulocytes % Neutrophils % 79.3 % Lymphocytes % 11.3 % Monocytes % 7.8 % Eosinophils % 0.3 % Basophils % 0.5 % Nucleated Red Blood 0.0 /100WBC Cells % Immature 0.050 10^3/ul Granulocytes # Neutrophils # 4.8 10^3/ul Lymphocytes # 0.7 10^3/ul Monocytes # 0.5 10^3/ul Eosinophils # 0.0 10^3/ul Basophils # 0.0 10^3/ul Nucleated Red Blood 0.0 10^3/ul Cells # Sodium Level 138 mmol/L Potassium Level 5.0 mmol/L Chloride Level 111 mmol/L Carbon Dioxide 18 mmol/L Level Anion Gap 9 Blood Urea Nitrogen 56 mg/dl Creatinine 4.43 mg/dl Est Glomerular 14 mL/min Filtrat Rate mL/min Glucose Level 124 mg/dl Calcium Level 9.6 mg/dl Assessment and Plan Assessment/Diagnosis Diagnosis Major depressive disorder severe recurrent without psychosis Recommendation/Plan Medication Management Continue Lexapro 10 mg daily Multiple antipsychotics: No Discharge Disposition: Other Legal Status: Voluntary (Does not meet criteria for 5150 hold) ZORAIDA SNIDER NP Dec 18, 2018 10:10
--- NOTE | 2018-12-18 11:02 | CONS ---
Assessment/Plan Assessment/Plan Hospital Course (Demo Recall) EMR reviewed. Will coordinate and direct care with FINANCIAL REPORTING ADVISOR Consultation Date/Type/Reason Admit Date/Time Dec 09, 2018 at 14:30 Initial Consult Date Type of Consult id Requesting Provider: HARVINDER BLOOD MD Date/Time of Note DATE: 12/18/18 TIME: 11:02 Exam/Review of Systems Exam Vitals Vital Signs Date Temp Pulse Resp B/P (MAP) Pulse Ox O2 O2 Flow FiO2 Time Delivery Rate 12/18/18 79 08:31 12/18/18 98.0 18 110/68 99 Nasal 07:30 (82) Cannula Intake and Output 12/17/18 12/17/18 12/18/18 1515:00 23:00 07:00 IntakeIntake Total 250 ml 240 ml 300 ml OutputOutput Total 100 ml 300 ml 1001 ml BalanceBalance 150 ml -60 ml -701 ml Results Result Diagram: 12/18/18 0527 12/18/18 0527 Results 24hrs Laboratory Tests Test 12/17/18 11:19 12/17/18 13:58 12/17/18 17:26 12/17/18 20:09 Bedside Glucose 120 180 Erythrocyte 67 H Sedimentation Rate Sodium Level 139 138 Potassium Level 5.8 H 5.5 H Chloride Level 109 109 Carbon Dioxide Level 15 L 14 L Anion Gap 15 H 15 H Blood Urea Nitrogen 49 H 52 H Creatinine 4.33 H 4.36 H Est Glomerular 14 L 14 L Filtrat Rate mL/min Glucose Level 130 125 Calcium Level 9.6 9.7 Test 12/17/18 21:15 12/18/18 02:42 12/18/18 05:27 12/18/18 07:46 Bedside Glucose 200 195 127 White Blood Count 6.0 Red Blood Count 2.68 L Hemoglobin 8.7 L Hematocrit 27.4 L Mean Corpuscular 102.2 H Volume Mean Corpuscular 32.5 Hemoglobin Mean Corpuscular 31.8 L Hemoglobin Concent Red Cell 12.7 Distribution Width Platelet Count 188 Mean Platelet Volume 10.6 H Immature 0.800 H Granulocytes % Neutrophils % 79.3 H Lymphocytes % 11.3 L Monocytes % 7.8 Eosinophils % 0.3 Basophils % 0.5 Nucleated Red Blood 0.0 Cells % Immature 0.050 H Granulocytes # Neutrophils # 4.8 Lymphocytes # 0.7 L Monocytes # 0.5 Eosinophils # 0.0 Basophils # 0.0 Nucleated Red Blood 0.0 Cells # Sodium Level 138 Potassium Level 5.0 Chloride Level 111 H Carbon Dioxide Level 18 L Anion Gap 9 # Blood Urea Nitrogen 56 H Creatinine 4.43 H Est Glomerular 14 L Filtrat Rate mL/min Glucose Level 124 Calcium Level 9.6 Medications Medication Current Medications Prednisone (Prednisone) 5 mg DAILY PO Last administered on 12/18/18 08:46; Admin Dose 5 MG; Start 12/10/18 at 09:00 Diagnostic Test (Pha) (Accu-Chek) 1 ea 02 XX Last administered on 12/16/18 01:55; Admin Dose 1 EA; Start 12/10/18 at 02:00 Ondansetron HCl (Zofran Inj) 4 mg Q6H PRN IV NAUSEA/VOMITING Last administered on 12/17/18at 12:04; Admin Dose 4 MG; Start 12/09/18 at 18:30 Acetaminophen (Tylenol Tab) 650 mg Q6H PRN PO .PAIN 1-3 OR TEMP Last administered on 12/09/18at 22:14; Admin Dose 650 MG; Start 12/09/18 at 18:30 Docusate Sodium (Colace) 100 mg Q12H PRN PO .CONSTIPATION; Start 12/09/18 at 18: 30 Bisacodyl (Dulcolax) 5 mg DAILY PRN PO .CONSTIPATION; Start 12/09/18 at 18:30 Famotidine (Pepcid) 20 mg DAILY PO Last administered on 12/18/18 08:46; Admin Dose 20 MG; Start 12/09/18 at 21:00 Heparin Sodium (Porcine) (Heparin (5000 Units/1ml)) 5,000 unit Q12 SC ; Start 12/09/18 at 21:00 Miscellaneous Information 1 ea NOTE XX ; Start 12/09/18 at 18:30 Glucose (Glutose) 15 gm Q15M PRN PO DECREASED GLUCOSE; Start 12/09/18 at 18:30 Glucose (Glutose) 22.5 gm Q15M PRN PO DECREASED GLUCOSE; Start 12/09/18 at 18:30 Dextrose (D50w Syringe) 25 ml Q15M PRN IV DECREASED GLUCOSE; Start 12/09/18 at 18:30 Dextrose (D50w Syringe) 50 ml Q15M PRN IV DECREASED GLUCOSE; Start 12/09/18 at 18:30 Glucagon (Glucagen) 1 mg Q15M PRN IM DECREASED GLUCOSE; Start 12/09/18 at 18:30 Glucose (Glutose) 15 gm Q15M PRN BUCCAL DECREASED GLUCOSE; Start 12/09/18 at 18:30 Hydralazine HCl (Apresoline) 20 mg Q4 PRN IV SBP > 160 Last administered on 12/09/18 21:32; Admin Dose 20 MG; Start 12/09/18 at 21:00 Clonidine (Catapres) 0.1 mg Q6H PRN PO SBP> 160 Last administered on 12/09/18 22:14; Admin Dose 0.1 MG; Start 12/09/18 at 21:00 Amlodipine Besylate (Norvasc) 10 mg DAILY PO Last administered on 12/18/18 08:54; Admin Dose 10 MG; Start 12/09/18 at 21:00 Zolpidem Tartrate (Ambien) 5 mg HS PRN PO INSOMNIA; Start 12/09/18 at 23:30 Acetaminophen/ Hydrocodone Bitart ([place] (10/325)) 1 tab Q6H PRN PO MODERATE PAIN LEVEL 4-6 Last administered on 12/17/18 12:04; Admin Dose 1 TAB; Start 12/10/18 at 19:00 Clonidine (Catapres) 0.1 mg BID PO Last administered on 12/17/18 21:17; Admin Dose 0.1 MG; Start 12/10/18 at 21:00 Hydralazine HCl (Apresoline) 25 mg Q8 PO Last administered on 12/17/18 14:56; Admin Dose 25 MG; Start 12/10/18 at 22:00 Tamsulosin HCl (Flomax) 0.4 mg HS PO Last administered on 12/17/18 21:16; Adm in Dose 0.4 MG; Start 12/10/18 at 21:00 Insulin Human NPH (Humulin N) 4 unit DAILY@0900 SC Last administered on 12/18/18 08:49; Admin Dose 4 UNIT; Start 12/12/18 at 09:00 Insulin Glargine (Lantus) 8 units DAILY@2000 SC Last administered on 12/17/18 21:38; Admin Dose 8 UNITS; Start 12/12/18 at 20:00 Ampicillin Sodium/ Sulbactam Sodium 50 ml @ 100 mls/hr Q12 IVPB Last administered on 12/18/18 08:56; Admin Dose 100 MLS/HR; Start 12/13/18 at 13:00 Insulin Aspart (Novolog Insulin Pen) 3 unit AC LUNCH DINNER SC Last administered on 12/17/18 17:32; Admin Dose 3 UNIT; Start 12/13/18 at 17:30 Tacrolimus (Prograf) 1 mg QHS PO Last administered on 12/17/18 21:16; Admin Dose 1 MG; Start 12/13/18 at 21:00 Insulin Aspart (Novolog Insulin Pen) 3 unit AC BREAKFAST SC Last administered on 12/18/18 07:56; Admin Dose 3 UNIT; Start 12/15/18 at 07:00 Insulin Aspart (Novolog Insulin Pen) NOVOLOG *MILD* ALGORITHM AC DINNER BEDTIME SC Last administered on 12/17/18 21:43; Admin Dose 1 UNIT; Start 12/14/18 at 17:30 Insulin Aspart (Novolog Insulin Pen) NOVOLOG *CUSTOM* ALGORITHM AC BREAKFAST BHAVNA NCH SC ; Start 12/15/18 at 07:00 Escitalopram Oxalate (Lexapro) 10 mg DAILY PO Last administered on 12/18/18 08:46; Admin Dose 10 MG; Start 12/14/18 at 14:00 Morphine Sulfate (morphine) 6 mg Q4H PRN PO SEVERE PAIN LEVEL 7-10; Start 12/14/18 at 23:00 Tacrolimus (Prograf) 1 mg QAM PO Last administered on 12/18/18 08:46; Admin Dose 1 MG; Start 12/16/18 at 09:00 Miscellaneous Information (* Miscellaneous Pharmacy Order) GIVE VELTASSA 16.8 GM X1 ONCE XX ; Start 12/15/18 at 10:30 Metoclopramide HCl (Reglan) 10 mg Q6H PRN IV NAUSEA; Start 12/15/18 at 18:30 Sodium Bicarbonate (Sodium Bicarbonate Tab) 1,300 mg TID PO Last administered on 12/18/18 08:46; Admin Dose 1,300 MG; Start 12/17/18 at 21:00 PARAMJIT COTTRELL MD Dec 18, 2018 11:02
--- NOTE | 2018-12-18 12:55 | CONS ---
Assessment/Plan Assessment/Plan Hospital Course (Demo Recall) - Progressive swelling of distal aspect of right ring finger with x-ray showing further of erosion and lucency involving the distal aspect of the distal phalanx of the right ring finger suspicious for osteomyelitis with improved but slight associated soft tissue swelling. ESR 67. - Hx OM of R 4th digit: swelling with new erosive changes and osteopenia of the underlying R 4th distal phalanx, suggestive of osteomyelitis; wound culture grew Serratia on 03/18/18 and Serratia + CoNS (likely colonizer) on 04/04/18 ; Pt declined amputation. ESR 39 on 03/18/2018. S/p Levaquin x 6 weeks - Bacteremia d/t MSSA 12/09/2018, repeat blood cx 12/12/18 NGTD - MRSA and K. pneumoniae in urine cx 12/09/2018 - UA was neg for pyuria - Hx mild subtle increased activity within the upper aspect of LUE, nonspecific, on WBC tagged scan on 04/05/2018 - Hx OM of R 3rd fingertip (XR showed periosteal reaction at the tip of R 3rd distal phalanx, suspicious for OM, MRI showed cellulitis of distal R 4th phalanx, without OM) and L 2nd fingertip (XR showed cortical irregularity at the tuft of L 2nd distal phalanx with overlying soft tissue defect, suggesting early OM, MRI showed OM at L 2nd distal phalanx with, cellulitis about L 2nd distal phalanx without drainable fluid collection.) - Hx OM of R 2nd finger s/p amputation at proximal phalanx neck, and h/o OM of L 3rd finger s/p amputation at middle and distal phalanges - Acute on chronic renal failure - Hyperkalemia with metabolic acidosis - slowly improving with sodium bicarb - Hx ESRD, was on HD - S/p renal transplant in 2009 (on tacrolimus, mycophenolate and prednisone), chronic renal insufficiency at baseline - DM - Hgb A1c 10.5% - Hx Juan's esophagus and gastritis s/p EGD on 08/12/2017. No H. pylori on Bx - BLE atherosclerosis - Seen by Vascular Surgery during last admit - Onychomycosis, tinea pedis - Seen by Veneer Drier Tailer during last admit - Rheumatoid arthritis - Chronic HCV infection - HTN - Dyslipidemia - Hx polysubstance and IV drug use. 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 psychosis - on Lexapro - Abdominal distention and pain Recommendations: - Continue renally dosed Unasyn (12/13/2018-)x 2 weeks and then PO Augmentin x 4weeks to complete therapy - Consider vasc surgery eval - Serial ESR (67 on 12/17) - Monitor GI/ fxn Management d/w patient, ARJUN Rosenbaum, and with Dr. Olmstead Consultation Date/Type/Reason Admit Date/Time Dec 09, 2018 at 14:30 Initial Consult Date 12/10/18 Type of Consult Infectious Disease Requesting Provider: HARVINDER BLOOD MD Date/Time of Note DATE: 12/18/18 TIME: 12:55 24 HR Interval Summary Free Text/Dictation Pt recently medicated with po morphine but pt wants IV morphine per d/w nursing. Rates pain 9/10. Denies n/v/d. He continues to refuse most meds but is taking IV abx. Still awaiting bed availability at [facility]. Pt was seen by Psych who recommended to continue Lexapro. Pt is declining physical examination. "Not right now. I'm sorry". Remains afebrile. ESR 67. Exam/Review of Systems Exam Vitals Vital Signs Date Temp Pulse Resp B/P (MAP) Pulse Ox O2 O2 Flow FiO2 Time Delivery Rate 12/18/18 80 12:10 12/18/18 18 126/59 11:30 (81) 12/18/18 98.0 99 Nasal 07:30 Cannula Intake and Output 12/17/18 12/17/18 12/18/18 1515:00 23:00 07:00 IntakeIntake Total 250 ml 240 ml 300 ml OutputOutput Total 100 ml 300 ml 1001 ml BalanceBalance 150 ml -60 ml -701 ml Exam Pt lying in bed with blanket covering his head. Constitutional: alert, oriented Genitourinary - Male: other ([place]la with clear yellow urine) Results Result Diagram: 12/18/18 0527 12/18/18526 Results 24hrs Laboratory Tests Test 12/17/18 13:58 12/17/18 17:26 12/17/18 20:09 12/17/18 21:15 Erythrocyte 67 H Sedimentation Rate Sodium Level 139 138 Potassium Level 5.8 H 5.5 H Chloride Level 109 109 Carbon Dioxide Level 15 L 14 L Anion Gap 15 H 15 H Blood Urea Nitrogen 49 H 52 H Creatinine 4.33 H 4.36 H Est Glomerular 14 L 14 L Filtrat Rate mL/min Glucose Level 130 125 Calcium Level 9.6 9.7 Bedside Glucose 180 200 Test 12/18/18 02:42 12/18/18 05:27 12/18/18 07:46 12/18/18 12:09 Bedside Glucose 195 127 77 White Blood Count 6.0 Red Blood Count 2.68 L Hemoglobin 8.7 L Hematocrit 27.4 L Mean Corpuscular 102.2 H Volume Mean Corpuscular 32.5 Hemoglobin Mean Corpuscular 31.8 L Hemoglobin Concent Red Cell 12.7 Distribution Width Platelet Count 188 Mean Platelet Volume 10.6 H Immature 0.800 H Granulocytes % Neutrophils % 79.3 H Lymphocytes % 11.3 L Monocytes % 7.8 Eosinophils % 0.3 Basophils % 0.5 Nucleated Red Blood 0.0 Cells % Immature 0.050 H Granulocytes # Neutrophils # 4.8 Lymphocytes # 0.7 L Monocytes # 0.5 Eosinophils # 0.0 Basophils # 0.0 Nucleated Red Blood 0.0 Cells # Sodium Level 138 Potassium Level 5.0 Chloride Level 111 H Carbon Dioxide Level 18 L Anion Gap 9 # Blood Urea Nitrogen 56 H Creatinine 4.43 H Est Glomerular 14 L Filtrat Rate mL/min Glucose Level 124 Calcium Level 9.6 Imaging Imaging CXR 12/16/2018: Mild bilateral infrahilar atelectasis and trace bilateral pleural effusions.. Medications Medication Current Medications Prednisone (Prednisone) 5 mg DAILY PO Last administered on 12/18/18at 08:46; Admin Dose 5 MG; Start 12/10/18 at 09:00 Diagnostic Test (Pha) (Accu-Chek) 1 ea 02 XX Last administered on 12/16/18at 01:55; Admin Dose 1 EA; Start 12/10/18 at 02:00 Ondansetron HCl (Zofran Inj) 4 mg Q6H PRN IV NAUSEA/VOMITING Last administered on 12/17/18at 12:04; Admin Dose 4 MG; Start 12/09/18 at 18:30 Acetaminophen (Tylenol Tab) 650 mg Q6H PRN PO .PAIN 1-3 OR TEMP Last administered on 12/09/18at 22:14; Admin Dose 650 MG; Start 12/09/18 at 18:30 Docusate Sodium (Colace) 100 mg Q12H PRN PO .CONSTIPATION; Start 12/09/18 at 18:30 Bisacodyl (Dulcolax) 5 mg DAILY PRN PO .CONSTIPATION; Start 12/09/18 at 18:30 Famotidine (Pepcid) 20 mg DAILY PO Last administered on 12/18/18at 08:46; Admin Dose 20 MG; Start 12/09/18 at 21:00 Heparin Sodium (Porcine) (Heparin (5000 Units/1ml)) 5,000 unit Q12 SC ; Start 12/09/18 at 21:00 Miscellaneous Information 1 ea NOTE XX ; Start 12/09/18 at 18:30 Glucose (Glutose) 15 gm Q15M PRN PO DECREASED GLUCOSE; Start 12/09/18 at 18:30 Glucose (Glutose) 22.5 gm Q15M PRN PO DECREASED GLUCOSE; Start 12/09/18 at 18:30 Dextrose (D50w Syringe) 25 ml Q15M PRN IV DECREASED GLUCOSE; Start 12/09/18 at 18:30 Dextrose (D50w Syringe) 50 ml Q15M PRN IV DECREASED GLUCOSE; Start 12/09/18 at 18:30 Glucagon (Glucagen) 1 mg Q15M PRN IM DECREASED GLUCOSE; Start 12/09/18 at 18:30 Glucose (Glutose) 15 gm Q15M PRN BUCCAL DECREASED GLUCOSE; Start 12/09/18 at 18:30 Hydralazine HCl (Apresoline) 20 mg Q4 PRN IV SBP > 160 Last administered on 12/09/18at 21:32; Admin Dose 20 MG; Start 12/09/18 at 21:00 Clonidine (Catapres) 0.1 mg Q6H PRN PO SBP> 160 Last administered on 12/09/18at 22:14; Admin Dose 0.1 MG; Start 12/09/18 at 21:00 Amlodipine Besylate (Norvasc) 10 mg DAILY PO Last administered on 12/18/18at 08:54; Admin Dose 10 MG; Start 12/09/18 at 21:00 Zolpidem Tartrate (Ambien) 5 mg HS PRN PO INSOMNIA; Start 12/09/18 at 23:30 Acetaminophen/ Hydrocodone Bitart ([place] ()) 1 tab Q6H PRN PO MODERATE PAIN LEVEL 4-6 Last administered on 12/17/18 12:04; Admin Dose 1 TAB; Start 12/10/18 at 19:00 Clonidine (Catapres) 0.1 mg BID PO Last administered on 12/17/18 21:17; Admin Dose 0.1 MG; Start 12/10/18 at 21:00 Hydralazine HCl (Apresoline) 25 mg Q8 PO Last administered on 12/17/18 14:56; Admin Dose 25 MG; Start 12/10/18 at 22:00 Tamsulosin HCl (Flomax) 0.4 mg HS PO Last administered on 12/17/18 21:16; Admin Dose 0.4 MG; Start 12/10/18 at 21:00 Insulin Human NPH (Humulin N) 4 unit DAILY@0900 SC Last administered on 12/18/18 08:49; Admin Dose 4 UNIT; Start 12/12/18 at 09:00 Insulin Glargine (Lantus) 8 units DAILY@2000 SC Last administered on 12/17/18 21:38; Admin Dose 8 UNITS; Start 12/12/18 at 20:00 Ampicillin Sodium/ Sulbactam Sodium 50 ml @ 100 mls/hr Q12 IVPB Last administered on 12/18/18 08:56; Admin Dose 100 MLS/HR; Start 12/13/18 at 13:00 Insulin Aspart (Novolog Insulin Pen) 3 unit AC LUNCH DINNER SC Last administered on 12/18/18 12:12; Admin Dose 3 UNIT; Start 12/13/18 at 17:30 Tacrolimus (Prograf) 1 mg QHS PO Last administered on 12/17/18 21:16; Admin Dose 1 MG; Start 12/13/18 at 21:00 Insulin Aspart (Novolog Insulin Pen) 3 unit AC BREAKFAST SC Last administered on 12/18/18 07:56; Admin Dose 3 UNIT; Start 12/15/18 at 07:00 Insulin Aspart (Novolog Insulin Pen) NOVOLOG *MILD* ALGORITHM AC DINNER BEDTIME SC Last administered on 12/17/18 21:43; Admin Dose 1 UNIT; Start 12/14/18 at 17:30 Insulin Aspart (Novolog Insulin Pen) NOVOLOG *CUSTOM* ALGORITHM AC BREAKFAST LUNCH SC ; Start 12/15/18 at 07:00 Escitalopram Oxalate (Lexapro) 10 mg DAILY PO Last administered on 12/18/18 08:46; Admin Dose 10 MG; Start 12/14/18 at 14:00 Morphine Sulfate (morphine) 6 mg Q4H PRN PO SEVERE PAIN LEVEL 7-10 Last administered on 12/18/18 11:19; Admin Dose 6 MG; Start 12/14/18 at 23:00 Tacrolimus (Prograf) 1 mg QAM PO Last administered on 12/18/18 08:46; Admin Dose 1 MG; Start 12/16/18 at 09:00 Miscellaneous Information (* Miscellaneous Pharmacy Order) GIVE VELTASSA 16.8 GM X1 ONCE XX ; Start 12/15/18 at 10:30 Metoclopramide HCl (Reglan) 10 mg Q6H PRN IV NAUSEA; Start 12/15/18 at 18:30 Sodium Bicarbonate (Sodium Bicarbonate Tab) 1,300 mg TID PO Last administered on 12/18/18 08:46; Admin Dose 1,300 MG; Start 12/17/18 at 21:00 CYNTHIA SHANNON NP Dec 18, 2018 12:55
--- NOTE | 2018-12-18 13:38 | CONS ---
Assessment/Plan Assessment/Plan Hospital Course (Demo Recall) IMPRESSION: 1. Hypertension-labile and on lower end today 2. Gangrenous changes of the patient's finger. 3. Renal failure on HD 4. Rheumatoid arthritis. 5. Diabetes mellitus. 6. History of Juan's esophagus. 7. Dyslipidemia. 8. Bacteremia-S aureus Recc: -Tele -serial ecg's -antihypertensives held today due to low BP. -Continue immunosuppresives and follow renal function -HD for volume removal -ongoing ortho eval of finger with probable conservative management at this time -possible transfer to higher level of care Consultation Date/Type/Reason Admit Date/Time Dec 09, 2018 at 14:30 Initial Consult Date 12/10/18 Type of Consult Cardiology Reason for Consultation HTN Requesting Provider: HARVINDER BLOOD MD Date/Time of Note DATE: 12/18/18 TIME: 13:36 Exam/Review of Systems Vital Signs Vitals Vital Signs Date Temp Pulse Resp B/P (MAP) Pulse Ox O2 O2 Flow FiO2 Time Delivery Rate 12/18/18 80 12:10 12/18/18 18 126/59 11:30 (81) 12/18/18 98.0 99 Nasal 07:30 Cannula Intake and Output 12/17/18 12/17/18 12/18/18 1515:00 23:00 07:00 IntakeIntake Total 250 ml 240 ml 300 ml OutputOutput Total 100 ml 300 ml 1001 ml BalanceBalance 150 ml -60 ml -701 ml Exam Exam Review of Systems: CONSTITUTIONAL: No fevers, chills. PULMONARY: No sob CARDIOVASCULAR: No chest pain/palpitations GASTROINTESTINAL: No nausea/vomiting. GENITOURINARY: No hematuria/dysuria. MUSCULOSKELETAL: No myagias/arthalgias. PSYCHIATRIC: The patient denies depression. NEUROLOGIC: No weakness Constitutional: alert Psych: no complaints Head: normocephalic ENMT: mucosa pink and moist Neck: supple, jvd (9 cm water) Respiratory: diminished breath sounds (at bases/B) Cardiovascular: regular rate and rhythm Gastrointestinal: soft, non-tender Musculoskeletal: muscle tone (normal) Extremities: edema (none) Labs Result Diagram: 12/18/18 0527 12/18/18 0527 Results 24hrs Laboratory Tests Test 12/17/18 13:58 12/17/18 17:26 12/17/18 20:09 12/17/18 21:15 Erythrocyte 67 H Sedimentation Rate Sodium Level 139 138 Potassium Level 5.8 H 5.5 H Chloride Level 109 109 Carbon Dioxide Level 15 L 14 L Anion Gap 15 H 15 H Blood Urea Nitrogen 49 H 52 H Creatinine 4.33 H 4.36 H Est Glomerular 14 L 14 L Filtrat Rate mL/min Glucose Level 130 125 Calcium Level 9.6 9.7 Bedside Glucose 180 200 Test 12/18/18 02:42 12/18/18 05:27 12/18/18 07:46 12/18/18 12:09 Bedside Glucose 195 127 77 White Blood Count 6.0 Red Blood Count 2.68 L Hemoglobin 8.7 L Hematocrit 27.4 L Mean Corpuscular 102.2 H Volume Mean Corpuscular 32.5 Hemoglobin Mean Corpuscular 31.8 L Hemoglobin Concent Red Cell 12.7 Distribution Width Platelet Count 188 Mean Platelet Volume 10.6 H Immature 0.800 H Granulocytes % Neutrophils % 79.3 H Lymphocytes % 11.3 L Monocytes % 7.8 Eosinophils % 0.3 Basophils % 0.5 Nucleated Red Blood 0.0 Cells % Immature 0.050 H Granulocytes # Neutrophils # 4.8 Lymphocytes # 0.7 L Monocytes # 0.5 Eosinophils # 0.0 Basophils # 0.0 Nucleated Red Blood 0.0 Cells # Sodium Level 138 Potassium Level 5.0 Chloride Level 111 H Carbon Dioxide Level 18 L Anion Gap 9 # Blood Urea Nitrogen 56 H Creatinine 4.43 H Est Glomerular 14 L Filtrat Rate mL/min Glucose Level 124 Calcium Level 9.6 Medications Medications Current Medications Prednisone (Prednisone) 5 mg DAILY PO Last administered on 12/18/18at 08:46; Admin Dose 5 MG; Start 12/10/18 at 09:00 Diagnostic Test (Pha) (Accu-Chek) 1 ea 02 XX Last administered on 12/16/18at 01:55; Admin Dose 1 EA; Start 12/10/18 at 02:00 Ondansetron HCl (Zofran Inj) 4 mg Q6H PRN IV NAUSEA/VOMITING Last administered on 12/17/18at 12:04; Admin Dose 4 MG; Start 12/09/18 at 18:30 Acetaminophen (Tylenol Tab) 650 mg Q6H PRN PO .PAIN 1-3 OR TEMP Last adm inistered on 12/09/18at 22:14; Admin Dose 650 MG; Start 12/09/18 at 18:30 Docusate Sodium (Colace) 100 mg Q12H PRN PO .CONSTIPATION; Start 12/09/18 at 18:30 Bisacodyl (Dulcolax) 5 mg DAILY PRN PO .CONSTIPATION; Start 12/09/18 at 18:30 Famotidine (Pepcid) 20 mg DAILY PO Last administered on 12/18/18at 08:46; Admin Dose 20 MG; Start 12/09/18 at 21:00 Heparin Sodium (Porcine) (Heparin (5000 Units/1ml)) 5,000 unit Q12 SC ; Start 12/09/18 at 21:00 Miscellaneous Information 1 ea NOTE XX ; Start 12/09/18 at 18:30 Glucose (Glutose) 15 gm Q15M PRN PO DECREASED GLUCOSE; Start 12/09/18 at 18:30 Glucose (Glutose) 22.5 gm Q15M PRN PO DECREASED GLUCOSE; Start 12/09/18 at 18:30 Dextrose (D50w Syringe) 25 ml Q15M PRN IV DECREASED GLUCOSE; Start 12/09/18 at 18:30 Dextrose (D50w Syringe) 50 ml Q15M PRN IV DECREASED GLUCOSE; Start 12/09/18 at 18:30 Glucagon (Glucagen) 1 mg Q15M PRN IM DECREASED GLUCOSE; Start 12/09/18 at 18:30 Glucose (Glutose) 15 gm Q15M PRN BUCCAL DECREASED GLUCOSE; Start 12/09/18 at 18:30 Hydralazine HCl (Apresoline) 20 mg Q4 PRN IV SBP > 160 Last administered on 12/09/18at 21:32; Admin Dose 20 MG; Start 12/09/18 at 21:00 Clonidine (Catapres) 0.1 mg Q6H PRN PO SBP> 160 Last administered on 12/09/18at 22:14; Admin Dose 0.1 MG; Start 12/09/18 at 21:00 Amlodipine Besylate (Norvasc) 10 mg DAILY PO Last administered on 12/18/18at 08:54; Admin Dose 10 MG; Start 12/09/18 at 21:00 Zolpidem Tartrate (Ambien) 5 mg HS PRN PO INSOMNIA; Start 12/09/18 at 23:30 Acetaminophen/ Hydrocodone Bitart ([place] ()) 1 tab Q6H PRN PO MODERATE PAIN LEVEL 4-6 Last administered on 12/17/18 12:04; Admin Dose 1 TAB; Start 12/10/18 at 19:00 Clonidine (Catapres) 0.1 mg BID PO Last administered on 12/17/18 21:17; Admin Dose 0.1 MG; Start 12/10/18 at 21:00 Hydralazine HCl (Apresoline) 25 mg Q8 PO Last administered on 12/17/18 14:56; Admin Dose 25 MG; Start 12/10/18 at 22:00 Tamsulosin HCl (Flomax) 0.4 mg HS PO Last administered on 12/17/18 21:16; Admin Dose 0.4 MG; Start 12/10/18 at 21:00 Insulin Human NPH (Humulin N) 4 unit DAILY@0900 SC Last administered on 12/18/18 08:49; Admin Dose 4 UNIT; Start 12/12/18 at 09:00 Insulin Glargine (Lantus) 8 units DAILY@2000 SC Last administered on 12/17/18 21:38; Admin Dose 8 UNITS; Start 12/12/18 at 20:00 Ampicillin Sodium/ Sulbactam Sodium 50 ml @ 100 mls/hr Q12 IVPB Last administered on 12/18/18 08:56; Admin Dose 100 MLS/HR; Start 12/13/18 at 13:00 Insulin Aspart (Novolog Insulin Pen) 3 unit AC LUNCH DINNER SC Last administered on 12/18/18 12:12; Admin Dose 3 UNIT; Start 12/13/18 at 17:30 Tacrolimus (Prograf) 1 mg QHS PO Last administered on 12/17/18 21:16; Admin Dose 1 MG; Start 12/13/18 at 21:00 Insulin Aspart (Novolog Insulin Pen) 3 unit AC BREAKFAST SC Last administered on 12/18/18 07:56; Admin Dose 3 UNIT; Start 12/15/18 at 07:00 Insulin Aspart (Novolog Insulin Pen) NOVOLOG *MILD* ALGORITHM AC DINNER BEDTIME SC Last administered on 12/17/18 21:43; Admin Dose 1 UNIT; Start 12/14/18 at 17:30 Insulin Aspart (Novolog Insulin Pen) NOVOLOG *CUSTOM* ALGORITHM AC BREAKFAST LUNCH SC ; Start 12/15/18 at 07:00 Escitalopram Oxalate (Lexapro) 10 mg DAILY PO Last administered on 12/18/18 08:46; Admin Dose 10 MG; Start 12/14/18 at 14:00 Morphine Sulfate (morphine) 6 mg Q4H PRN PO SEVERE PAIN LEVEL 7-10 Last administered on 12/18/18 11:19; Admin Dose 6 MG; Start 12/14/18 at 23:00 Tacrolimus (Prograf) 1 mg QAM PO Last administered on 12/18/18 08:46; Admin Dose 1 MG; Start 12/16/18 at 09:00 Miscellaneous Information (* Miscellaneous Pharmacy Order) GIVE VELTASSA 16.8 GM X1 ONCE XX ; Start 12/15/18 at 10:30 Metoclopramide HCl (Reglan) 10 mg Q6H PRN IV NAUSEA; Start 12/15/18 at 18:30 Sodium Bicarbonate (Sodium Bicarbonate Tab) 1,300 mg TID PO Last administered on 12/18/18 08:46; Admin Dose 1,300 MG; Start 12/17/18 at 21:00 ABDELRAHMAN KNOTT Dec 18, 2018 13:38
--- NOTE | 2018-12-18 14:02 | CONS ---
Assessment/Plan Assessment/Plan Problems: (1) Type 2 diabetes mellitus with diabetic peripheral angiopathy with gangrene Status: Chronic Comment: BG mildly above goal last night and mildly below goal now. If high pm BG values persist, will increase NPH or pm Novolog doses. Will monitor and decide if needs to be changed over next few days. 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: with marine oil terminal superintendent use Qualified Codes: E11.52 - Type 2 diabetes mellitus with diabetic peripheral angiopathy with gangrene; Z79.4 - intermediate (current) use of insulin Consultation Date/Type/Reason Admit Date/Time Dec 09, 2018 at 14:30 Initial Consult Date 12/10/18 Type of Consult Endocrinology Reason for Consultation T2DM OOC Requesting Provider: HARVINDER BLOOD MD Date/Time of Note DATE: 12/18/18 TIME: 13:56 24 HR Interval Summary Constitutional: no complaints Detailed Summary Gastrointestinal: pain, other (bloating); No vomiting Exam/Review of Systems Exam Vitals VS - Last 72 Hours, by Label Date Temp Pulse Resp B/P (MAP) Pulse Ox O2 O2 Flow FiO2 Time Delivery Rate 12/18/18 80 12:10 12/18/18 81 18 126/59 11:30 (81) 12/18/18 79 08:31 12/18/18 98.0 84 18 110/68 99 Nasal 07:30 (82) Cannula 12/18/18 79 04:00 12/18/18 98.0 84 18 127/51 99 04:00 (76) 12/18/18 75 00:00 12/18/18 98.2 85 18 124/49 98 00:00 (74) 12/17/18 87 20:00 12/17/18 97.9 88 20 128/52 98 20:00 (77) 12/17/18 84 16:11 12/17/18 97.9 88 20 120/50 98 Room Air 15:13 (73) 12/17/18 85 12:26 12/17/18 98.1 87 20 133/51 99 Nasal 11:21 (78) Cannula 12/17/18 78 08:19 12/17/18 98.1 78 20 107/52 96 Room Air 07:38 (70) 12/17/18 81 04:00 12/17/18 98.5 80 19 127/47 98 03:39 (73) 12/17/18 63 00:00 12/16/18 98.0 77 19 135/59 98 23:12 (84) 12/16/18 80 20:00 12/16/18 97.4 84 19 127/53 97 19:13 (77) 85 12/16/18 76 16:36 12/16/18 98.3 83 18 136/64 100 16:04 (88) 12/16/18 81 12:20 12/16/18 97.9 78 19 124/68 98 11:40 (86) 12/16/18 98 08:32 12/16/18 97.9 93 19 150/63 100 08:00 (92) 12/16/18 79 04:00 12/16/18 98.2 84 19 106/43 99 03:18 (64) 12/16/18 79 00:00 12/15/18 98.1 96 19 117/53 99 23:12 (74) 12/15/18 78 20:00 12/15/18 98.1 91 19 119/51 98 19:32 (73) 12/15/18 92 16:01 12/15/18 97.9 86 19 114/44 96 15:44 (67) Vital Signs Date Temp Pulse Resp B/P (MAP) Pulse Ox O2 O2 Flow FiO2 Time Delivery Rate 12/18/18 80 12:10 12/18/18 18 126/59 11:30 (81) 12/18/18 98.0 99 Nasal 07:30 Cannula Intake and Output 12/17/18 12/17/18 12/18/18 1414:59 22:59 06:59 IntakeIntake Total 250 ml 240 ml 300 ml OutputOutput Total 100 ml 300 ml 1001 ml BalanceBalance 150 ml -60 ml -701 ml Constitutional: alert, oriented, frail Psych: no complaints, nl mood/affect Respiratory: clear to auscultation, normal air movement Cardiovascular: regular rate and rhythm; No edema, No murmurs/extra sounds, No rub Gastrointestinal: soft, nl liver, spleen, bowel sounds, tender (BLQ); No non-tender, No mass, No rebound or guarding Musculoskeletal: nl extremities to inspection Extremities: No cyanosis, No clubbing, No edema 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: 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, nl mental status, nl speech, nl strength Additional Comments Bedside Glucose - 72 Hours Test 12/15/18 16:57 12/15/18 21:49 12/16/18 01:54 12/16/18 07:35 Bedside 192 192 181 94 Glucose mg/dL (70-220) mg/dL (70-220) mg/dL (70-220) mg/dL (70-220) Test 12/16/18 08:14 12/16/18 10:44 12/16/18 17:07 12/16/18 20:52 Bedside 145 104 104 132 Glucose mg/dL (70-220) mg/dL (70-220) mg/dL (70-220) mg/dL (70-220) Test 12/17/18 07:45 12/17/18 11:19 12/17/18 17:26 12/17/18 21:15 Bedside 89 120 180 200 Glucose mg/dL (70-220) mg/dL (70-220) mg/dL (70-220) mg/dL (70-220) Test 12/18/18 02:42 12/18/18 07:46 12/18/18 12:09 Bedside 195 127 77 Glucose mg/dL (70-220) mg/dL (70-220) mg/dL (70-220) Results Result Diagram: 12/18/1827 12/18/1827 Results 24hrs Laboratory Tests Test 12/17/18 13:58 12/17/18 17:26 12/17/18 20:09 12/17/18 21:15 Erythrocyte 67 H Sedimentation Rate Sodium Level 139 138 Potassium Level 5.8 H 5.5 H Chloride Level 109 109 Carbon Dioxide Level 15 L 14 L Anion Gap 15 H 15 H Blood Urea Nitrogen 49 H 52 H Creatinine 4.33 H 4.36 H Est Glomerular 14 L 14 L Filtrat Rate mL/min Glucose Level 130 125 Calcium Level 9.6 9.7 Bedside Glucose 180 200 Test 12/18/18 02:42 12/18/18 05:27 12/18/18 07:46 12/18/18 12:09 Bedside Glucose 195 127 77 White Blood Count 6.0 Red Blood Count 2.68 L Hemoglobin 8.7 L Hematocrit 27.4 L Mean Corpuscular 102.2 H Volume Mean Corpuscular 32.5 Hemoglobin Mean Corpuscular 31.8 L Hemoglobin Concent Red Cell 12.7 Distribution Width Platelet Count 188 Mean Platelet Volume 10.6 H Immature 0.800 H Granulocytes % Neutrophils % 79.3 H Lymphocytes % 11.3 L Monocytes % 7.8 Eosinophils % 0.3 Basophils % 0.5 Nucleated Red Blood 0.0 Cells % Immature 0.050 H Granulocytes # Neutrophils # 4.8 Lymphocytes # 0.7 L Monocytes # 0.5 Eosinophils # 0.0 Basophils # 0.0 Nucleated Red Blood 0.0 Cells # Sodium Level 138 Potassium Level 5.0 Chloride Level 111 H Carbon Dioxide Level 18 L Anion Gap 9 # Blood Urea Nitrogen 56 H Creatinine 4.43 H Est Glomerular 14 L Filtrat Rate mL/min Glucose Level 124 Calcium Level 9.6 Medications Medication Current Medications Prednisone (Prednisone) 5 mg DAILY PO Last administered on 12/18/18 08:46; Admin Dose 5 MG; Start 12/10/18 at 09:00 Diagnostic Test (Pha) (Accu-Chek) 1 ea 02 XX Last administered on 12/16/18 01:55; Admin Dose 1 EA; Start 12/10/18 at 02:00 Ondansetron HCl (Zofran Inj) 4 mg Q6H PRN IV NAUSEA/VOMITING Last administered on 12/17/18 12:04; Admin Dose 4 MG; Start 12/09/18 at 18:30 Acetaminophen (Tylenol Tab) 650 mg Q6H PRN PO .PAIN 1-3 OR TEMP Last administered on 12/09/18 22:14; Admin Dose 650 MG; Start 12/09/18 at 18:30 Docusate Sodium (Colace) 100 mg Q12H PRN PO .CONSTIPATION; Start 12/09/18 at 18:30 Bisacodyl (Dulcolax) 5 mg DAILY PRN PO .CONSTIPATION; Start 12/09/18 at 18:30 Famotidine (Pepcid) 20 mg DAILY PO Last administered on 12/18/18 08:46; Admin Dose 20 MG; Start 12/09/18 at 21:00 Heparin Sodium (Porcine) (Heparin (5000 Units/1ml)) 5,000 unit Q12 SC ; Start 12/09/18 at 21:00 Miscellaneous Information 1 ea NOTE XX ; Start 12/09/18 at 18:30 Glucose (Glutose) 15 gm Q15M PRN PO DECREASED GLUCOSE; Start 12/09/18 at 18:30 Glucose (Glutose) 22.5 gm Q15M PRN PO DECREASED GLUCOSE; Start 12/09/18 at 18:30 Dextrose (D50w Syringe) 25 ml Q15M PRN IV DECREASED GLUCOSE; Start 12/09/18 at 18:30 Dextrose (D50w Syringe) 50 ml Q15M PRN IV DECREASED GLUCOSE; Start 12/09/18 at 18:30 Glucagon (Glucagen) 1 mg Q15M PRN IM DECREASED GLUCOSE; Start 12/09/18 at 18:30 Glucose (Glutose) 15 gm Q15M PRN BUCCAL DECREASED GLUCOSE; Start 12/09/18 at 18:30 Hydralazine HCl (Apresoline) 20 mg Q4 PRN IV SBP > 160 Last administered on 12/09/18 21:32; Admin Dose 20 MG; Start 12/09/18 at 21:00 Clonidine (Catapres) 0.1 mg Q6H PRN PO SBP> 160 Last administered on 12/09/18 22:14; Admin Dose 0.1 MG; Start 12/09/18 at 21:00 Amlodipine Besylate (Norvasc) 10 mg DAILY PO Last administered on 12/18/18 08:54; Admin Dose 10 MG; Start 12/09/18 at 21:00 Zolpidem Tartrate (Ambien) 5 mg HS PRN PO INSOMNIA; Start 12/09/18 at 23:30 Acetaminophen/ Hydrocodone Bitart ([place] (10/325)) 1 tab Q6H PRN PO MODERATE PAIN LEVEL 4-6 Last administered on 12/17/18 12:04; Admin Dose 1 TAB; Start 12/10/18 at 19:00 Clonidine (Catapres) 0.1 mg BID PO Last administered on 12/17/18 21:17; Admin Dose 0.1 MG; Start 12/10/18 at 21:00 Hydralazine HCl (Apresoline) 25 mg Q8 PO Last administered on 12/17/18 14:56; Admin Dose 25 MG; Start 12/10/18 at 22:00 Tamsulosin HCl (Flomax) 0.4 mg HS PO Last administered on 12/17/18 21:16; Admin Dose 0.4 MG; Start 12/10/18 at 21:00 Insulin Human NPH (Humulin N) 4 unit DAILY@0900 SC Last administered on 12/18/18 08:49; Admin Dose 4 UNIT; Start 12/12/18 at 09:00 Insulin Glargine (Lantus) 8 units DAILY@2000 SC Last administered on 12/17/18 21:38; Admin Dose 8 UNITS; Start 12/12/18 at 20:00 Ampicillin Sodium/ Sulbactam Sodium 50 ml @ 100 mls/hr Q12 IVPB Last administered on 12/18/18 08:56; Admin Dose 100 MLS/HR; Start 12/13/18 at 13:00 Insulin Aspart (Novolog Insulin Pen) 3 unit AC LUNCH DINNER SC Last administered on 12/18/18 12:12; Admin Dose 3 UNIT; Start 12/13/18 at 17:30 Tacrolimus (Prograf) 1 mg QHS PO Last administered on 12/17/18 21:16; Admin Dose 1 MG; Start 12/13/18 at 21:00 Insulin Aspart (Novolog Insulin Pen) 3 unit AC BREAKFAST SC Last administered on 12/18/18 07:56; Admin Dose 3 UNIT; Start 12/15/18 at 07:00 Insulin Aspart (Novolog Insulin Pen) NOVOLOG *MILD* ALGORITHM AC DINNER BEDTIME SC Last administered on 12/17/18 21:43; Admin Dose 1 UNIT; Start 12/14/18 at 17:30 Insulin Aspart (Novolog Insulin Pen) NOVOLOG *CUSTOM* ALGORITHM AC BREAKFAST LUNCH SC ; Start 12/15/18 at 07:00 Escitalopram Oxalate (Lexapro) 10 mg DAILY PO Last administered on 12/18/18 08:46; Admin Dose 10 MG; Start 12/14/18 at 14:00 Morphine Sulfate (morphine) 6 mg Q4H PRN PO SEVERE PAIN LEVEL 7-10 Last adm inistered on 12/18/18 11:19; Admin Dose 6 MG; Start 12/14/18 at 23:00 Tacrolimus (Prograf) 1 mg QAM PO Last administered on 12/18/18 08:46; Admin Dose 1 MG; Start 12/16/18 at 09:00 Miscellaneous Information (* Miscellaneous Pharmacy Order) GIVE VELTASSA 16.8 GM X1 ONCE XX ; Start 12/15/18 at 10:30 Metoclopramide HCl (Reglan) 10 mg Q6H PRN IV NAUSEA; Start 12/15/18 at 18:30 Sodium Bicarbonate (Sodium Bicarbonate Tab) 1,300 mg TID PO Last administered on 12/18/18at 08:46; Admin Dose 1,300 MG; Start 12/17/18 at 21:00 SYLVESTER CAGLE MD Dec 18, 2018 14:02
[2018-12-18] MEDS: morphine 2 MG INJ IV PRN ×2 (14:50→19:41)
--- NOTE | 2018-12-18 15:41 | NUR ---
case management note followed up with ESSIE [phone] at the transfer center at [facility] and at this time, there are no bed available, a cm will continue to follow up.this cm will endorse to week end cm to follow up.
--- NOTE | 2018-12-18 15:54 | CONS ---
[facility] Name: Esvin Manley Unit Number: [id number] Date of : 1960 Patient Status: Admitted Inpatient Attending Doctor: Lul Maier MD Edit: HARVINDER BLOOD MD on 12/18/18 @ 17:42 seen and examined with DRIER HELPER Pain/distension at abdomen> kidney transplant stat Renal US IV Pain meds Assessment/Plan Assessment/Plan Hospital Course (Demo Recall) 1. Acute on chronic renal failure. Creatinine is increasing. Hydronephrosis. Dr Blood spoke to [facility], Cr was 2.5 in 10/20 on admission is 3.47. It could be due to sepsis vs ATN vs Prograf toxicity vs mild hydronephros is. Recommended transfer to tertiary center 2. Hyperkalemia, could be secondary to uncontrolled sugars/worsening renal failure, rule out Prograf toxicity. 3. Metabolic acidosis. 4. Sepsis, questionable. 5. Right middle finger cellulitis with gangrene. 6. Status post donor renal transplantation in 2009. 6. Hypertension. 7. Right 4th toe gangrene. 8. Severe peripheral vascular disease. 9. History of Juan's esophagitis. 10. Chronic hepatitis C virus infection. 11. History of polysubstance use. 12. DM type II Assessment/Plan (Daily) -c/w bicarb tabs TID -Varela -We will need sw worker consult to address for depression will need psych consult -he is refusing dialysis currently said that he would go back to [place] if he needs to be started on dialysis need to address depression issues. -Monitor potassium, urine output, patient might need hemodialysis in the next 24 hours -Continue with prednisone -ID to renally dose all antibiotics -Continue with Flomax , urology following -Renally dose all meds -Avoid nephrotoxins -repeat blood cultures negative -DM control per primary Consultation Date/Type/Reason Admit Date/Time Dec 09, 2018 at 14:30 Initial Consult Date 12/10/18 Type of Consult nephrology Requesting Provider: HARVINDER BLOOD MD Date/Time of Note DATE: 12/18/18 TIME: 15:50 24 HR Interval Summary Free Text/Dictation does not talk much Exam/Review of Systems Exam Vitals Vital Signs Date Temp Pulse Resp B/P (MAP) Pulse Ox O2 O2 Flow FiO2 Time Delivery Rate 12/18/18 80 12:10 12/18/18 18 126/59 11:30 (81) 12/18/18 98.0 99 Nasal 07:30 Cannula Intake and Output 12/17/18 12/17/18 12/18/18 1515:00 23:00 07:00 IntakeIntake Total 250 ml 240 ml 300 ml OutputOutput Total 100 ml 300 ml 1001 ml BalanceBalance 150 ml -60 ml -701 ml Exam face is covered, pt is talking in low tone, feel down, does not let finish physical examination Constitutional: alert Cardiovascular: regular rate and rhythm Gastrointestinal: soft Results Result Diagram: 12/18/18 0527 12/18/18 0527 Results 24hrs Laboratory Tests Test 12/17/18 17:26 12/17/18 20:09 12/17/18 21:15 12/18/18 02:42 Bedside Glucose 180 200 195 Sodium Level 138 Potassium Level 5.5 H Chloride Level 109 Carbon Dioxide Level 14 L Anion Gap 15 H Blood Urea Nitrogen 52 H Creatinine 4.36 H Est Glomerular 14 L Filtrat Rate mL/min Glucose Level 125 Calcium Level 9.7 Test 12/18/18 05:27 12/18/18 07:46 12/18/18 12:09 White Blood Count 6.0 Red Blood Count 2.68 L Hemoglobin 8.7 L Hematocrit 27.4 L Mean Corpuscular 102.2 H Volume Mean Corpuscular 32.5 Hemoglobin Mean Corpuscular 31.8 L Hemoglobin Concent Red Cell 12.7 Distribution Width Platelet Count 188 Mean Platelet Volume 10.6 H Immature 0.800 H Granulocytes % Neutrophils % 79.3 H Lymphocytes % 11.3 L Monocytes % 7.8 Eosinophils % 0.3 Basophils % 0.5 Nucleated Red Blood 0.0 Cells % Immature 0.050 H Granulocytes # Neutrophils # 4.8 Lymphocytes # 0.7 L Monocytes # 0.5 Eosinophils # 0.0 Basophils # 0.0 Nucleated Red Blood 0.0 Cells # Sodium Level 138 Potassium Level 5.0 Chloride Level 111 H Carbon Dioxide Level 18 L Anion Gap 9 # Blood Urea Nitrogen 56 H Creatinine 4.43 H Est Glomerular 14 L Filtrat Rate mL/min Glucose Level 124 Calcium Level 9.6 Bedside Glucose 127 77 Medications Medication Current Medications Prednisone (Prednisone) 5 mg DAILY PO Last administered on 12/18/18at 08:46; Admin Dose 5 MG; Start 12/10/18 at 09:00 Diagnostic Test (Pha) (Accu-Chek) 1 ea 02 XX Last administered on 12/16/18at 01:55; Admin Dose 1 EA; Start 12/10/18 at 02:00 Ondansetron HCl (Zofran Inj) 4 mg Q6H PRN IV NAUSEA/VOMITING Last administered on 12/17/18at 12:04; Admin Dose 4 MG; Start 12/09/18 at 18:30 Acetaminophen (Tylenol Tab) 650 mg Q6H PRN PO .PAIN 1-3 OR TEMP Last administered on 12/09/18at 22:14; Admin Dose 650 MG; Start 12/09/18 at 18:30 Docusate Sodium (Colace) 100 mg Q12H PRN PO .CONSTIPATION; Start 12/09/18 at 18:30 Bisacodyl (Dulcolax) 5 mg DAILY PRN PO .CONSTIPATION; Start 12/09/18 at 18:30 Famotidine (Pepcid) 20 mg DAILY PO Last administered on 12/18/18at 08:46; Admin Dose 20 MG; Start 12/09/18 at 21:00 Heparin Sodium (Porcine) (Heparin (5000 Units/1ml)) 5,000 unit Q12 SC ; Start 12/09/18 at 21:00 Miscellaneous Information 1 ea NOTE XX ; Start 12/09/18 at 18:30 Glucose (Glutose) 15 gm Q15M PRN PO DECREASED GLUCOSE; Start 12/09/18 at 18:30 Glucose (Glutose) 22.5 gm Q15M PRN PO DECREASED GLUCOSE; Start 12/09/18 at 18:30 Dextrose (D50w Syringe) 25 ml Q15M PRN IV DECREASED GLUCOSE; Start 12/09/18 at 18:30 Dextrose (D50w Syringe) 50 ml Q15M PRN IV DECREASED GLUCOSE; Start 12/09/18 at 18:30 Glucagon (Glucagen) 1 mg Q15M PRN IM DECREASED GLUCOSE; Start 12/09/18 at 18:30 Glucose (Glutose) 15 gm Q15M PRN BUCCAL DECREASED GLUCOSE; Start 12/09/18 at 18:30 Hydralazine HCl (Apresoline) 20 mg Q4 PRN IV SBP > 160 Last administered on 12/09 21:32; Admin Dose 20 MG; Start 12/09/18 at 21:00 Clonidine (Catapres) 0.1 mg Q6H PRN PO SBP> 160 Last administered on 12/09/18 22:14; Admin Dose 0.1 MG; Start 12/09/18 at 21:00 Amlodipine Besylate (Norvasc) 10 mg DAILY PO Last administered on 12/18/18 08:54; Admin Dose 10 MG; Start 12/09/18 at 21:00 Zolpidem Tartrate (Ambien) 5 mg HS PRN PO INSOMNIA; Start 12/09/18 at 23:30 Acetaminophen/ Hydrocodone Bitart ([place] (10/325)) 1 tab Q6H PRN PO MODERATE PAIN LEVEL 4-6 Last administered on 12/17/18 12:04; Admin Dose 1 TAB; Start 12/10/18 at 19:00 Clonidine (Catapres) 0.1 mg BID PO Last administered on 12/17/18 21:17; Admin Dose 0.1 MG; Start 12/10/18 at 21:00 Hydralazine HCl (Apresoline) 25 mg Q8 PO Last administered on 12/17/18 14:56; Admin Dose 25 MG; Start 12/10/18 at 22:00 Tamsulosin HCl (Flomax) 0.4 mg HS PO Last administered on 12/17/18 21:16; Admin Dose 0.4 MG; Start 12/10/18 at 21:00 Insulin Human NPH (Humulin N) 4 unit DAILY@0900 SC Last administered on 12/18/18 08:49; Admin Dose 4 UNIT; Start 12/12/18 at 09:00 Insulin Glargine (Lantus) 8 units DAILY@2000 SC Last administered on 12/17/18 21:38; Admin Dose 8 UNITS; Start 12/12/18 at 20:00 Ampicillin Sodium/ Sulbactam Sodium 50 ml @ 100 mls/hr Q12 IVPB Last administered on 12/18/18 08:56; Admin Dose 100 MLS/HR; Start 12/13/18 at 13:00 Insulin Aspart (Novolog Insulin Pen) 3 unit AC LUNCH DINNER SC Last adminis tered on 12/18/18 12:12; Admin Dose 3 UNIT; Start 12/13/18 at 17:30 Tacrolimus (Prograf) 1 mg QHS PO Last administered on 12/17/18 21:16; Admin Dose 1 MG; Start 12/13/18 at 21:00 Insulin Aspart (Novolog Insulin Pen) 3 unit AC BREAKFAST SC Last administered on 12/18/18 07:56; Admin Dose 3 UNIT; Start 12/15/18 at 07:00 Insulin Aspart (Novolog Insulin Pen) NOVOLOG *MILD* ALGORITHM AC DINNER BEDTIME SC Last administered on 12/17/18 21:43; Admin Dose 1 UNIT; Start 12/14/18 at 17:30 Insulin Aspart (Novolog Insulin Pen) NOVOLOG *CUSTOM* ALGORITHM AC BREAKFAST LUNCH SC ; Start 12/15/18 at 07:00 Escitalopram Oxalate (Lexapro) 10 mg DAILY PO Last administered on 12/18/18 08:46; Admin Dose 10 MG; Start 12/14/18 at 14:00 Morphine Sulfate (morphine) 6 mg Q4H PRN PO SEVERE PAIN LEVEL 7-10 Last administered on 12/18/18 11:19; Admin Dose 6 MG; Start 12/14/18 at 23:00 Metoclopramide HCl (Reglan) 10 mg Q6H PRN IV NAUSEA; Start 12/15/18 at 18:30 Sodium Bicarbonate (Sodium Bicarbonate Tab) 1,300 mg TID PO Last administered on 12/18/18 08:46; Admin Dose 1,300 MG; Start 12/17/18 at 21:00 Morphine Sulfate (morphine) 2 mg Q4H PRN IV SEVERE PAIN LEVEL 7-10 Last administered on 12/18/18 14:50; Admin Dose 2 MG; Start 12/18/18 at 14:30 Tacrolimus (Prograf) 2 mg QAM PO ; Start 12/19/18 at 09:00 GENNARO GAO 15, 2019 15:54
[2018-12-18] MEDS: ONDANSETRON 4 MG INJ IV PRN (17:44)
--- NOTE | 2018-12-18 18:01 | NUR ---
END OF SHIFT REPORT: Patient withdrawn and stays under the cover most of the time since I took over his care at 1500 today. VSS. No new complaints. Still awaiting bed availability from [facility].
--- NOTE | 2018-12-18 20:28 | PN ---
Date/Time of Note Date/Time of Note DATE: 12/18/18 TIME: 20:25 Assessment/Plan Lines/Catheters IV Catheter Type (from Nrs): Mid Line Varela in Place (from Nrs): Yes Assessment/Plan Chief Complaint/Hosp Course -Chronic kidney disease stage III; seems that the patient is a kidney transplant recipient on immunosuppression, being followed by nephrology colleagues, and was seen at [facility] a few months back. From that standpoint, continue with medical optimization. Continue with his immunosuppression as recommended and judicious use of nephrotoxic medications given his new acute on chronic renal failure -In regards to his left upper arm previous thrombosed grafts: no current infection is identified. -Right upper extremity atherosclerosis and 2nd digit ulceration at the tip: Upon previous arterial upper extremity ultrasound it appeared the patient has monophasic flow in the forearm. Unfortunately given his CKD and renal transplant would hold off on an Angiogram and continue with local wound care and antibiotics for now. Also recommend Orthopedic consult should the infection worsens and him requiring a digit amputation -Bilateral lower extremity atherosclerosis with left lower extremity healed ulcer. It seems the patient had developed an ulcer in the past of the fifth metatarsal segment. Upon bilateral lower extremity arterial studies to further delineate his lower extremity infrainguinal disease, he also has monophasic waveforms and currently no intervention is needed. -Optimize vascular status (BP meds, diet and nutrition, exercise, sugar control, anti-platelets). -Discussed the findings, plan and management with the patient. He understands all that is involved. Total time spent greater than 35 minutes -Thank you for allowing us to partake in the care of your patient. Please call with any questions. Subjective 24 Hr Interval Summary Constitutional: no complaints Exam/Review of Systems Vital Signs Vitals Vital Signs Date Temp Pulse Resp B/P (MAP) Pulse Ox O2 O2 Flow FiO2 Time Delivery Rate 12/18/18 89 16:22 12/18/18 97.6 18 133/53 99 Room Air 15:45 (79) Intake and Output 12/17/18 12/17/18 12/18/18 1515:00 23:00 07:00 IntakeIntake Total 250 ml 240 ml 300 ml OutputOutput Total 100 ml 300 ml 1001 ml BalanceBalance 150 ml -60 ml -701 ml Results Result Diagram: 12/18/18 0527 12/18/18 0527 MATTHEW VELA MD Dec 18, 2018 20:28
--- NOTE | 2018-12-18 21:10 | CONS ---
DATE OF ADMISSION: 12/09/2018 DATE OF CONSULTATION: 12/17/2018 VASCULAR SURGERY CONSULTATION Dear Doctors: HISTORY OF PRESENT ILLNESS: Mr. Manley is a 58-year-old gentleman with a plethora of medical condi tions and history of end-stage renal disease in which he had underwent kidney transplant at [facility] in 2009, had presented to [facility] secondary to [id number] renal failur e and sepsis in which he is being currently evaluated by our multidisciplinary team. It appears the patient reports, after mopping his floor at his house for extended period of time, he had developed r ight third finger blister which gradually worsened, developing cellulitis in that area with suspicion of osteomyelitis on x-ray imaging. Vascular surgery consultation has been obtained for further eval uation. Of note, the patient has had a previous medical history of right fourth finger gangrene and celluliti s back in 03/2018 and was able to heal with conservative management of IV antibiotics and application of Betadine. 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 The patient underwent multiple bilateral upper extremity fist annie creations in the past and also had a left upper arm cellulitis that also healed with management o f antibiotics back in 03/2018. At the moment, the patient's mood seems to be a bit sad. He denies c urrent nausea, vomiting, fever or chills. Denies upper extremity and lower extremity claudication or rest pain-like symptoms. PAST MEDICAL HISTORY: Entails end-stage renal disease status post renal transplant with new onset of [id number] renal failure, diabetes type 2, chronic HCV infection, rheumatoid arthritis, hypert ension, Juan's esophagus, severe gastritis, fourth finger infection in the past. PAST SURGICAL HISTORY: Multiple AV fistula creations in the past, kidney transplant, right second fi nger amputation. FAMILY HISTORY: Hypertension and diabetes, IV drug abuse. SOCIAL HISTORY: Previous abuse of drugs and tobacco. Currently, denies alcohol, tobacco or illicit drug use. PHYSICAL EXAMINATION: GENERAL: Alert and oriented x3, no apparent distress. HEENT: Normocephalic, atraumatic. Mucosa moist. Some temporal wasting. NECK: Supple. No carotid bruit. PULMONARY: Coarse breath sounds bilaterally. No crackles. CARDIOVASCULAR: S1, S2 present. No murmurs. ABDOMEN: Soft, nontender, nondistended. Bowel sounds positive. EXTREMITIES: Right lower extremity: Palpable femoral pulse, faint pedal pulse. Motor and sensory i ntact. Cap refill 3 seconds. Left lower extremity: Palpable femoral pulse, faint pedal pulse. Motor and sensory intact. Cap ref ill 3 seconds. Right upper extremity: Palpable brachial pulse, faint radial pulse. Motor and sensory intact. Cap refill 3 seconds. Second finger amputation stump that is well healed. Third finger blister with dev elopment of some demarcation at the tip of the digit. Previous fourth finger cellulitis and gangrene has healed. Left upper extremity: Multiple surgical scars from previous thrombosed fistulas. Motor and sensory intact. Cap refill 3 seconds. Palpable brachial pulse. ASSESSMENT AND PLAN: 1. Bilateral upper extremity atherosclerosis with right third digit ulceration: It seems that the p atient has developed new ulcerations of the third digit. It appears to be at the tip of the finger, likely as a result of trauma from his extensive use of his broom. Would recommend to continue with c onservative management with application of Betadine Clyman and antibiotics to resolve the cellulitis. I would recommend for the patient to have judicious use of antibiotics as the patient has a kidney t ransplant and has immunosuppression and is immunosuppressed. 2. Joncf-ev-[id number] renal failure. The patient has history of end-stage renal disease status post k idney transplant. It will be ideal to be more cognizant of judicious use of medications to avoid any nephrotoxicity. It appears the patient may be being transferred to tertiary center. Optimize vascular status (BP meds, diet, nutrition, exercise, sugar control, antiplatelets). Discussed findings, plan and management with the patient. He has agreed with our conservative interv ention for now. Thank you for allowing us to partake in the care of your patient. Please call with any questions. Dictated By: MATTHEW LOPEZ/NAKIA Conf#: [id number] DID#: [id number] CC: LUPE KAPLAN MD;*EndCC*
[2018-12-18] MEDS: TAMSULOSIN (SR) 0.4 MG CAP PO SCH (21:44)
[2018-12-18] MEDS: INSULIN GLARGINE [LANTus] (100 UNITS/ML) SYG SC SCH (21:49)
[2018-12-19] VITALS: BP 108/52; PULSE 78; PULSE 90; RESP 18
[2018-12-19] MEDS: ACCU-CHEK XX SCH (02:00)
[2018-12-19 04:00] VITALS: BP 118/73; PULSE 87; RESP 16
--- NOTE | 2018-12-19 05:54 | NUR ---
PT A LITTLE BIT WITHDRAWN, BUT REMAINS IN STABLE CONDITION THROUGHOUT SHIFT. VITAL SIGNS WITHIN NORMAL LIMITS. PENDING BED AVAILABILITY AT [facility] FOR TRANSFER TO A TERTIARY CENTER. WILL ENDORSE TO DAY SHIFT FOR CONTINUITY OF CARE.
[2018-12-19] MEDS: INSULIN ASPART [NOVOLOG] 3 ML PEN SC SCH ×4 (07:00→11:30)
--- NOTE | 2018-12-19 07:49 | NUR ---
RN NOTES: Patient's blood glucose was 49 mg/dl, asymptomatic, patient awake, alert & verbally responsive, not in distress. Patient claimed he doesn't have appetite & always nauseous, zofran IV given to patient. Patient refused to take D50W prn, regular soda was given as per patient's request & started eating his breakfast.
[2018-12-19] MEDS: ONDANSETRON 4 MG INJ IV PRN (07:59)
--- NOTE | 2018-12-19 08:03 | NUR ---
RN NOTES: Blood glucose rechecked, 60 mg/dl, asymptomatic. Patient eating jello & fruits. @ 0830: Blood glucose rechecked, 117 mg/dl. @ 0900: Dr Almonte in & informed about patient's low blood glucose with orders received & carried out. To continue monitoring.
[2018-12-19 08:13] VITALS: PULSE 96
[2018-12-19] MEDS: NPH, HUMAN INSULIN ISOPHANE 3ML VIAL SC SCH ×2 (08:24→10:10)
[2018-12-19 08:26] VITALS: BP 111/43; PULSE 89; RESP 18
[2018-12-19] MEDS: ESCITALOPRAM 10 MG TAB PO SCH (08:31)
[2018-12-19] MEDS: NA BICARBONATE 650 MG TAB PO SCH ×2 (08:32→13:12)
[2018-12-19] MEDS: predniSONE 5 MG TAB PO SCH (08:32)
[2018-12-19] MEDS: morphine 2 MG INJ IV PRN (08:32)
[2018-12-19] MEDS: FAMOTIDINE 20 MG TAB PO SCH (08:32)
[2018-12-19] MEDS: HEPARIN 5,000 UNIT/1 ML VIAL SC SCH (08:33)
[2018-12-19] MEDS: AMLODIPINE 10 MG TAB PO SCH (08:36)
[2018-12-19] MEDS: AMPICILLIN/SULB 1.5GM/NS (PMX) 50 ML IVPB SCH (08:40)
[2018-12-19] MEDS ORDERED: TACROLIMUS 1 MG CAP PO SCH (09:00)
--- NOTE | 2018-12-19 10:16 | CONS ---
Assessment/Plan Assessment/Plan Problems: (1) Type 2 diabetes mellitus with diabetic peripheral angiopathy with gangrene Status: Chronic Comment: Pt. strongly advised that even if he is not going to eat and although BG was low this am, still needs NPH to manage insulin resistance from prednisone. Uncertain why pt. had low glucose this am. Will reduce lantus to 6 units qhs but pt. has had stable glucose levels on this dose for several days and dose may need to be increased in near future. Will monitor. Qualifiers: Diabetes mellitus chcf insulin use: with termite inspector use Qualified Codes: E11.52 - Type 2 diabetes mellitus with diabetic peripheral angiopathy with gangrene; Z79.4 - terminal superintendent (current) use of insulin (2) Major depressive disorder, single episode, mild Status: Acute Comment: Depression appears to be worsening. Will try to convince pt. to take his anti-depressant medication. Consider adding abilify. Consultation Date/Type/Reason Admit Date/Time Dec 09, 2018 at 14:30 Initial Consult Date 12/10/18 Type of Consult Endocrinology Reason for Consultation [id number] Requesting Provider: HARVINDER BLOOD MD Date/Time of Note DATE: 12/19/18 TIME: 10:12 24 HR Interval Summary Constitutional: no complaints, improved, poor po Detailed Summary Respiratory: no complaints Cardiovascular: no complaints Gastrointestinal: pain (improved), decreased appetite (persists), nausea (improved); No vomiting Genitourinary: no complaints Musculoskeletal: no complaints (finger does not hurt) Neurologic: no complaints Psychological: depression (refusing meds and insulin) Exam/Review of Systems Exam Vitals VS - Last 72 Hours, by Label Date Temp Pulse Resp B/P (MAP) Pulse Ox O2 O2 Flow FiO2 Time Delivery Rate 12/19/18 98.4 89 18 111/43 99 08:26 (65) 12/19/18 96 08:13 12/19/18 87 04:00 12/19/18 98.5 16 118/73 98 Room Air 04:00 (88) 12/19/18 98.3 78 18 108/52 98 Room Air 00:00 (70) 12/19/18 90 00:00 12/18/18 94 20:00 12/18/18 97.8 95 18 127/64 100 Room Air 20:00 (85) 12/18/18 89 16:22 12/18/18 97.6 88 18 133/53 99 Room Air 15:45 (79) 12/18/18 80 12:10 12/18/18 81 18 126/59 11:30 (81) 12/18/18 79 08:31 12/18/18 98.0 84 18 110/68 99 Nasal 07:30 (82) Cannula 12/18/18 79 04:00 12/18/18 98.0 84 18 127/51 99 04:00 (76) 12/18/18 75 00:00 12/18/18 98.2 85 18 124/49 98 00:00 (74) 12/17/18 87 20:00 12/17/18 97.9 88 20 128/52 98 20:00 (77) 12/17/18 84 16:11 12/17/18 97.9 88 20 120/50 98 Room Air 15:13 (73) 12/17/18 85 12:26 12/17/18 98.1 87 20 133/51 99 Nasal 11:21 (78) Cannula 12/17/18 78 08:19 12/17/18 98.1 78 20 107/52 96 Room Air 07:38 (70) 12/17/18 81 04:00 12/17/18 98.5 80 19 127/47 98 03:39 (73) 12/17/18 63 00:00 12/16/18 98.0 77 19 135/59 98 23:12 (84) 12/16/18 80 20:00 12/16/18 97.4 84 19 127/53 97 19:13 (77) 85 12/16/18 76 16:36 12/16/18 98.3 83 18 136/64 100 16:04 (88) 12/16/18 81 12:20 12/16/18 97.9 78 19 124/68 98 11:40 (86) Vital Signs Date Temp Pulse Resp B/P (MAP) Pulse Ox O2 O2 Flow FiO2 Time Delivery Rate 12/19/18 98.4 89 18 111/43 99 08:26 (65) 12/19/18 Room Air 04:00 Intake and Output 12/18/18 12/18/18 12/19/18 1515:00 23:00 07:00 IntakeIntake Total 240 ml 240 ml 350 ml OutputOutput Total 200 ml 450 ml BalanceBalance 240 ml 40 ml -100 ml Constitutional: alert, oriented, frail Psych: depression Respiratory: clear to auscultation, normal air movement Cardiovascular: regular rate and rhythm, murmurs/extra sounds (Grade 2/6 JUN); No edema, No rub Gastrointestinal: soft, nl liver, spleen, bowel sounds, tender (RLQ); No non-tender, No mass, No rebound or guarding Musculoskeletal: nl extremities to inspection Extremities: No cyanosis, No clubbing, No edema 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, nl mental status, nl speech, nl strength Additional Comments Bedside Glucose - 72 Hours Test 12/16/18 10:44 12/16/18 17:07 12/16/18 20:52 12/17/18 07:45 Bedside 104 104 132 89 Glucose mg/dL (70-220) mg/dL (70-220) mg/dL (70-220) mg/dL (70-220) Test 12/17/18 11:19 12/17/18 17:26 12/17/18 21:15 12/18/18 02:42 Bedside 120 180 200 195 Glucose mg/dL (70-220) mg/dL (70-220) mg/dL (70-220) mg/dL (70-220) Test 12/18/18 07:46 12/18/18 12:09 12/18/18 17:09 12/18/18 21:42 Bedside 127 77 107 130 Glucose mg/dL (70-220) mg/dL (70-220) mg/dL (70-220) mg/dL (70-220) Test 12/19/18 07:49 12/19/18 08:03 12/19/18 08:30 Bedside 49 60 117 Glucose mg/dL (70-220) mg/dL (70-220) mg/dL (70-220) *L L Results Result Diagram: 12/18/18 0527 12/19/18 0539 Results 24hrs Laboratory Tests Test 12/18/18 12:09 12/18/18 17:09 12/18/18 21:42 12/19/18 05:39 Bedside Glucose 77 107 130 Sodium Level 142 Potassium Level 5.1 Chloride Level 109 Carbon Dioxide Level 19 L Anion Gap 14 H Blood Urea Nitrogen 54 H Creatinine 4.30 H Est Glomerular 14 L Filtrat Rate mL/min Glucose Level 62 #L Calcium Level 9.6 Test 12/19/18 07:49 12/19/18 08:03 12/19/18 08:30 Bedside Glucose 49 *L 60 L 117 Medications Medication Current Medications Prednisone (Prednisone) 5 mg DAILY PO Last administered on 12/19/18at 08:32; Admin Dose 5 MG; Start 12/10/18 at 09:00 Diagnostic Test (Pha) (Accu-Chek) 1 ea 02 XX Last administered on 12/16/18at 01:55; Admin Dose 1 EA; Start 12/10/18 at 02:00 Ondansetron HCl (Zofran Inj) 4 mg Q6H PRN IV NAUSEA/VOMITING Last administered on 12/19/18at 07:59; Admin Dose 4 MG; Start 12/09/18 at 18:30 Acetaminophen (Tylenol Tab) 650 mg Q6H PRN PO .PAIN 1-3 OR TEMP Last administered on 12/09/18at 22:14; Admin Dose 650 MG; Start 12/09/18 at 18:30 Docusate Sodium (Colace) 100 mg Q12H PRN PO .CONSTIPATION; Start 12/09/18 at 18:30 Bisacodyl (Dulcolax) 5 mg DAILY PRN PO .CONSTIPATION; Start 12/09/18 at 18:30 Famotidine (Pepcid) 20 mg DAILY PO Last administered on 12/19/18at 08:32; Admin Dose 20 MG; Start 12/09/18 at 21:00 Heparin Sodium (Porcine) (Heparin (5000 Units/1ml)) 5,000 unit Q12 SC ; Start 12/09/18 at 21:00 Miscellaneous Information 1 ea NOTE XX ; Start 12/09/18 at 18:30 Glucose (Glutose) 15 gm Q15M PRN PO DECREASED GLUCOSE; Start 12/09/18 at 18:30 Glucose (Glutose) 22.5 gm Q15M PRN PO DECREASED GLUCOSE; Start 12/09/18 at 18:30 Dextrose (D50w Syringe) 25 ml Q15M PRN IV DECREASED GLUCOSE; Start 12/09/18 at 18:30 Dextrose (D50w Syringe) 50 ml Q15M PRN IV DECREASED GLUCOSE; Start 12/09/18 at 18:30 Glucagon (Glucagen) 1 mg Q15M PRN IM DECREASED GLUCOSE; Start 12/09/18 at 18:30 Glucose (Glutose) 15 gm Q15M PRN BUCCAL DECREASED GLUCOSE; Start 12/09/18 at 18:30 Hydralazine HCl (Apresoline) 20 mg Q4 PRN IV SBP > 160 Last administered on 12/09/18 21:32; Admin Dose 20 MG; Start 12/09/18 at 21:00 Clonidine (Catapres) 0.1 mg Q6H PRN PO SBP> 160 Last administered on 12/09/18 22:14; Admin Dose 0.1 MG; Start 12/09/18 at 21:00 Amlodipine Besylate (Norvasc) 10 mg DAILY PO Last administered on 12/18/18 08:54; Admin Dose 10 MG; Start 12/09/18 at 21:00 Zolpidem Tartrate (Ambien) 5 mg HS PRN PO INSOMNIA; Start 12/09/18 at 23:30 Acetaminophen/ Hydrocodone Bitart ([place] (10325)) 1 tab Q6H PRN PO MODERATE PAIN LEVEL 4-6 Last administered on 12/17/18 12:04; Admin Dose 1 TAB; Start 12/10/18 at 19:00 Clonidine (Catapres) 0.1 mg BID PO Last administered on 12/18/18 21:43; Admin Dose 0.1 MG; Start 12/10/18 at 21:00 Hydralazine HCl (Apresoline) 25 mg Q8 PO Last administered on 12/19/18 06:20; Admin Dose 25 MG; Start 12/10/18 at 22:00 Tamsulosin HCl (Flomax) 0.4 mg HS PO Last administered on 12/18/18 21:44; Admin Dose 0.4 MG; Start 12/10/18 at 21:00 Insulin Human NPH (Humulin N) 4 unit DAILY@0900 SC Last administered on 12/04 10:10; Admin Dose 4 UNIT; Start 12/12/18 at 09:00 Ampicillin Sodium/ Sulbactam Sodium 50 ml @ 100 mls/hr Q12 IVPB Last administered on 12/19/18 08:40; Admin Dose 100 MLS/HR; Start 12/13/18 at 13:00 Insulin Aspart (Novolog Insulin Pen) 3 unit AC LUNCH DINNER SC Last administered on 12/18/18 17:47; Admin Dose 3 UNIT; Start 12/13/18 at 17:30 Tacrolimus (Prograf) 1 mg QHS PO Last administered on 12/18/18 21:44; Admin Dose 1 MG; Start 12/13/18 at 21:00 Insulin Aspart (Novolog Insulin Pen) 3 unit AC BREAKFAST SC Last administered on 12/18/18 07:56; Admin Dose 3 UNIT; Start 12/15/18 at 07:00 Insulin Aspart (Novolog Insulin Pen) NOVOLOG *MILD* ALGORITHM AC DINNER BEDTIME SC Last administered on 12/17/18 21:43; Admin Dose 1 UNIT; Start 12/14/18 at 17:30 Insulin Aspart (Novolog Insulin Pen) NOVOLOG *CUSTOM* ALGORITHM AC BREAKFAST LUNCH SC ; Start 12/15/18 at 07:00 Escitalopram Oxalate (Lexapro) 10 mg DAILY PO Last administered on 12/19/18 08:31; Admin Dose 10 MG; Start 12/14/18 at 14:00 Morphine Sulfate (morphine) 6 mg Q4H PRN PO SEVERE PAIN LEVEL 7-10 Last administered on 12/18/18 11:19; Admin Dose 6 MG; Start 12/14/18 at 23:00 Metoclopramide HCl (Reglan) 10 mg Q6H PRN IV NAUSEA; Start 12/15/18 at 18:30 Sodium Bicarbonate (Sodium Bicarbonate Tab) 1,300 mg TID PO Last administered on 12/19/18 08:32; Admin Dose 1,300 MG; Start 12/17/18 at 21:00 Morphine Sulfate (morphine) 2 mg Q4H PRN IV SEVERE PAIN LEVEL 7-10 Last administered on 12/19/18 08:32; Admin Dose 2 MG; Start 12/18/18 at 14:30 Tacrolimus (Prograf) 2 mg QAM PO Last administered on 12/19/18 08:32; Admin Dose 2 MG; Start 12/19/18 at 09:00 Insulin Glargine (Lantus) 6 units DAILY@2000 SC ; Start 12/19/18 at 20:00 SYLVESTER CAGLE MD Dec 19, 2018 10:16
--- NOTE | 2018-12-19 10:43 | PN ---
Date/Time of Note Date/Time of Note DATE: 12/19/18 TIME: 10:43 Assessment/Plan VTE Prophylaxis Risk score (from Ns)>0 risk: 1 SCD applied (from Nsg): No Lines/Catheters IV Catheter Type (from Nrs): Mid Line Urinary Cath still in place: Yes Assessment/Plan Assessment/Plan -Severe sepsis with Staphylococcus bacteremia, continue antibiotics per ID. Dr. Olmstead is following in infection disease consultation. -Right middle finger cellulitis with gangrene. S/p evaluation by Dr. Castro in orthopedic surgery consultation. Dr. Sims is asked to see patient in vascular surgery consultation -Hyperkalemia -Acute on chronic renal failure, patient baseline creatinine is 1.5 during last admission. Continue IV fluids, bicarb, patient refused starting hemodialysis. Dr. Meyers is following in nephrology consultation. -Status post cadaveric kidney transplant in 2009. -Poorly controlled diabetes mellitus type 2, hemoglobin A1c is 10.5. Continue Lantus and NovoLog. Dr. Almonte is following in endocrinology consultation. -Hypertension. -History of right fourth finger gangrene -History of Juan's esophagus and severe gastritis. -Chronic HCV infection -Rheumatoid arthritis -History of polysubstance and IV drug use -Poor medical compliance with his diabetic regimen Further recommendations based on clinical course. Plan of care discussed with Dr. Maier. Result Diagram: 12/18/18 0527 12/19/18 0539 Results 24hrs Laboratory Tests Test 12/18/18 12:09 12/18/18 17:09 12/18/18 21:42 12/19/18 05:39 Bedside Glucose 77 107 130 Sodium Level 142 Potassium Level 5.1 Chloride Level 109 Carbon Dioxide Level 19 L Anion Gap 14 H Blood Urea Nitrogen 54 H Creatinine 4.30 H Est Glomerular 14 L Filtrat Rate mL/min Glucose Level 62 #L Calcium Level 9.6 Test 12/19/18 07:49 12/19/18 08:03 12/19/18 08:30 Bedside Glucose 49 *L 60 L 117 Subjective 24 Hr Interval Summary Free Text/Dictation 12/18/2018 ENTRY Exam/Review of Systems Exam Vitals Vital Signs Date Temp Pulse Resp B/P (MAP) Pulse Ox O2 O2 Flow FiO2 Time Delivery Rate 12/19/18 98.4 89 18 111/43 99 08:26 (65) 12/19/18 Room Air 04:00 Intake and Output 12/18/18 12/18/18 12/19/18 1515:00 23:00 07:00 IntakeIntake Total 240 ml 240 ml 350 ml OutputOutput Total 200 ml 450 ml BalanceBalance 240 ml 40 ml -100 ml Results Results 24hrs Laboratory Tests Test 12/18/18 12:09 12/18/18 17:09 12/18/18 21:42 12/19/18 05:39 Bedside Glucose 77 107 130 Sodium Level 142 Potassium Level 5.1 Chloride Level 109 Carbon Dioxide Level 19 L Anion Gap 14 H Blood Urea Nitrogen 54 H Creatinine 4.30 H Est Glomerular 14 L Filtrat Rate mL/min Glucose Level 62 #L Calcium Level 9.6 Test 12/19/18 07:49 12/19/18 08:03 12/19/18 08:30 Bedside Glucose 49 *L 60 L 117 Medications Medication Current Medications Prednisone (Prednisone) 5 mg DAILY PO Last administered on 12/19/18 08:32; Admin Dose 5 MG; Start 12/10/18 at 09:00 Diagnostic Test (Pha) (Accu-Chek) 1 ea 02 XX Last administered on 12/16/18at 01:55; Admin Dose 1 EA; Start 12/10/18 at 02:00 Ondansetron HCl (Zofran Inj) 4 mg Q6H PRN IV NAUSEA/VOMITING Last administered on 12/19/18at 07:59; Admin Dose 4 MG; Start 12/09/18 at 18:30 Acetaminophen (Tylenol Tab) 650 mg Q6H PRN PO .PAIN 1-3 OR TEMP Last administered on 12/09/18at 22:14; Admin Dose 650 MG; Start 12/09/18 at 18:30 Docusate Sodium (Colace) 100 mg Q12H PRN PO .CONSTIPATION; Start 12/09/18 at 18:30 Bisacodyl (Dulcolax) 5 mg DAILY PRN PO .CONSTIPATION; Start 12/09/18 at 18:30 Famotidine (Pepcid) 20 mg DAILY PO Last administered on 12/19/18at 08:32; Admin Dose 20 MG; Start 12/09/18 at 21:00 Heparin Sodium (Porcine) (Heparin (5000 Units/1ml)) 5,000 unit Q12 SC ; Start 12/09/18 at 21:00 Miscellaneous Information 1 ea NOTE XX ; Start 12/09/18 at 18:30 Glucose (Glutose) 15 gm Q15M PRN PO DECREASED GLUCOSE; Start 12/09/18 at 18:30 Glucose (Glutose) 22.5 gm Q15M PRN PO DECREASED GLUCOSE; Start 12/09/18 at 18:30 Dextrose (D50w Syringe) 25 ml Q15M PRN IV DECREASED GLUCOSE; Start 12/09/18 at 18:30 Dextrose (D50w Syringe) 50 ml Q15M PRN IV DECREASED GLUCOSE; Start 12/09/18 at 18:30 Glucagon (Glucagen) 1 mg Q15M PRN IM DECREASED GLUCOSE; Start 12/09/18 at 18:30 Glucose (Glutose) 15 gm Q15M PRN BUCCAL DECREASED GLUCOSE; Start 12/09/18 at 18:30 Hydralazine HCl (Apresoline) 20 mg Q4 PRN IV SBP > 160 Last administered on 12/09/18at 21:32; Admin Dose 20 MG; Start 12/09/18 at 21:00 Clonidine (Catapres) 0.1 mg Q6H PRN PO SBP> 160 Last administered on 12/09/18at 22:14; Admin Dose 0.1 MG; Start 12/09/18 at 21:00 Amlodipine Besylate (Norvasc) 10 mg DAILY PO Last administered on 12/18/18at 08:54; Admin Dose 10 MG; Start 12/09/18 at 21:00 Zolpidem Tartrate (Ambien) 5 mg HS PRN PO INSOMNIA; Start 12/09/18 at 23:30 Acetaminophen/ Hydrocodone Bitart ([place] (10/325)) 1 tab Q6H PRN PO MODERATE PAIN LEVEL 4-6 Last administered on 12/17/18at 12:04; Admin Dose 1 TAB; Start 12/10/18 at 19:00 Clonidine (Catapres) 0.1 mg BID PO Last administered on 12/18/18at 21:43; Admin Dose 0.1 MG; Start 12/10/18 at 21:00 Hydralazine HCl (Apresoline) 25 mg Q8 PO Last administered on 12/19/18at 06:20; Admin Dose 25 MG; Start 12/10/18 at 22:00 Tamsulosin HCl (Flomax) 0.4 mg HS PO Last administered on 12/18/18 21:44; Admin Dose 0.4 MG; Start 12/10/18 at 21:00 Insulin Human NPH (Humulin N) 4 unit DAILY@0900 SC Last administered on 12/19/18 10:10; Admin Dose 4 UNIT; Start 12/12/18 at 09:00 Ampicillin Sodium/ Sulbactam Sodium 50 ml @ 100 mls/hr Q12 IVPB Last administered on 12/19/18 08:40; Admin Dose 100 MLS/HR; Start 12/13/18 at 13:00 Insulin Aspart (Novolog Insulin Pen) 3 unit AC LUNCH DINNER SC Last administered on 12/18/18 17:47; Admin Dose 3 UNIT; Start 12/13/18 at 17:30 Tacrolimus (Prograf) 1 mg QHS PO Last administered on 12/18/18 21:44; Admin Dose 1 MG; Start 12/13/18 at 21:00 Insulin Aspart (Novolog Insulin Pen) 3 unit AC BREAKFAST SC Last administered on 12/18/18 07:56; Admin Dose 3 UNIT; Start 12/15/18 at 07:00 Insulin Aspart (Novolog Insulin Pen) NOVOLOG *MILD* ALGORITHM AC DINNER BEDTIME SC Last administered on 12/17/18 21:43; Admin Dose 1 UNIT; Start 12/14/18 at 17:30 Insulin Aspart (Novolog Insulin Pen) NOVOLOG *CUSTOM* ALGORITHM AC BREAKFAST LUNCH SC ; Start 12/15/18 at 07:00 Escitalopram Oxalate (Lexapro) 10 mg DAILY PO Last administered on 12/19/18 08 :31; Admin Dose 10 MG; Start 12/14/18 at 14:00 Morphine Sulfate (morphine) 6 mg Q4H PRN PO SEVERE PAIN LEVEL 7-10 Last administered on 12/18/18 11:19; Admin Dose 6 MG; Start 12/14/18 at 23:00 Metoclopramide HCl (Reglan) 10 mg Q6H PRN IV NAUSEA; Start 12/15/18 at 18:30 Sodium Bicarbonate (Sodium Bicarbonate Tab) 1,300 mg TID PO Last administered on 12/19/18 08:32; Admin Dose 1,300 MG; Start 12/17/18 at 21:00 Morphine Sulfate (morphine) 2 mg Q4H PRN IV SEVERE PAIN LEVEL 7-10 Last administered on 12/19/18at 08:32; Admin Dose 2 MG; Start 12/18/18 at 14:30 Tacrolimus (Prograf) 2 mg QAM PO Last administered on 12/19/18at 08:32; Admin Dose 2 MG; Start 12/19/18 at 09:00 Insulin Glargine (Lantus) 6 units DAILY@2000 SC ; Start 12/19/18 at 20:00 EILEEN COBURN Dec 19, 2018 10:43
[2018-12-19 11:04] VITALS: BP 140/53; PULSE 88; RESP 19
--- NOTE | 2018-12-19 11:29 | CONS ---
Assessment/Plan Assessment/Plan Hospital Course (Demo Recall) 1. Acute on chronic renal failure. Creatinine is increasing. Increasing hydronephrosis. On US kidney :Slightly echogenic right lower quadrant transplanted kidney with slightly increased resistive index in the arteries. Mild to moderate hydronephrosis in the transplanted kidney, slightly worsened. Feliciano was out of bladder Recommended transfer to tertiary center 2. Hyperkalemia, could be secondary to uncontrolled sugars/worsening renal failure, rule out Prograf toxicity. resolved 3. Metabolic acidosis. 4. Sepsis, questionable. 5. Right middle finger cellulitis with gangrene. 6. Status post donor renal transplantation in 2009. 6. Hypertension. 7. Right 4th toe gangrene. 8. Severe peripheral vascular disease. 9. History of Juan's esophagitis. 10. Chronic hepatitis C virus infection. 11. History of polysubstance use. 12. DM type II 13. Major depressive disorder severe recurrent without psychosis Assessment/Plan (Daily) -c/w bicarb tabs TID -c/w Feliciano -seen by psychotherapist social worker -he is refusing dialysis -Monitor potassium, urine output, -ID to renally dose all antibiotics -Continue with Flomax , urology following -Renally dose all meds -Avoid nephrotoxins -repeat blood cultures are negative -DM control per primary Consultation Date/Type/Reason Admit Date/Time Dec 09, 2018 at 14:30 Initial Consult Date 12/10/18 Type of Consult nephrology Requesting Provider: HARVINDER BLOOD MD Date/Time of Note DATE: 12/19/18 TIME: 11:27 24 HR Interval Summary Free Text/Dictation abdominal pain Constitutional: poor po Exam/Review of Systems Exam Vitals Vital Signs Date Temp Pulse Resp B/P (MAP) Pulse Ox O2 O2 Flow FiO2 Time Delivery Rate 12/19/18 98.2 88 19 140/53 99 11:04 (82) 12/19/18 Room Air 04:00 Intake and Output 12/18/18 12/18/18 12/19/18 1515:00 23:00 07:00 IntakeIntake Total 240 ml 240 ml 350 ml OutputOutput Total 200 ml 450 ml BalanceBalance 240 ml 40 ml -100 ml Constitutional: alert, oriented, frail ENMT: nl external ears & nose Neck: supple Respiratory: clear to auscultation Cardiovascular: regular rate and rhythm Gastrointestinal: soft, distended, other (feliciano) Results Result Diagram: 12/18/18 0527 12/19/18 0539 Results 24hrs Laboratory Tests Test 12/18/18 12:09 12/18/18 17:09 12/18/18 21:42 12/19/18 05:39 Bedside Glucose 77 107 130 Sodium Level 142 Potassium Level 5.1 Chloride Level 109 Carbon Dioxide Level 19 L Anion Gap 14 H Blood Urea Nitrogen 54 H Creatinine 4.30 H Est Glomerular 14 L Filtrat Rate mL/min Glucose Level 62 #L Calcium Level 9.6 Test 12/19/18 07:49 12/19/18 08:03 12/19/18 08:30 Bedside Glucose 49 *L 60 L 117 Medications Medication Current Medications Prednisone (Prednisone) 5 mg DAILY PO Last administered on 12/19/18 08:32; Admin Dose 5 MG; Start 12/10/18 at 09:00 Diagnostic Test (Pha) (Accu-Chek) 1 ea 02 XX Last administered on 12/16/18at 01:55; Admin Dose 1 EA; Start 12/10/18 at 02:00 Ondansetron HCl (Zofran Inj) 4 mg Q6H PRN IV NAUSEA/VOMITING Last administered on 12/19/18 07:59; Admin Dose 4 MG; Start 12/09/18 at 18:30 Acetaminophen (Tylenol Tab) 650 mg Q6H PRN PO .PAIN 1-3 OR TEMP Last administered on 12/09/18at 22:14; Admin Dose 650 MG; Start 12/09/18 at 18:30 Docusate Sodium (Colace) 100 mg Q12H PRN PO .CONSTIPATION; Start 12/09/18 at 18:30 Bisacodyl (Dulcolax) 5 mg DAILY PRN PO .CONSTIPATION; Start 12/09/18 at 18:30 Famotidine (Pepcid) 20 mg DAILY PO Last administered on 12/19/18 08:32; Admin Dose 20 MG; Start 12/09/18 at 21:00 Heparin Sodium (Porcine) (Heparin (5000 Units/1ml)) 5,000 unit Q12 SC ; Start 12/09/18 at 21:00 Miscellaneous Information 1 ea NOTE XX ; Start 12/09/18 at 18:30 Glucose (Glutose) 15 gm Q15M PRN PO DECREASED GLUCOSE; Start 12/09/18 at 18:30 Glucose (Glutose) 22.5 gm Q15M PRN PO DECREASED GLUCOSE; Start 12/09/18 at 18:30 Dextrose (D50w Syringe) 25 ml Q15M PRN IV DECREASED GLUCOSE; Start 12/09/18 at 18:30 Dextrose (D50w Syringe) 50 ml Q15M PRN IV DECREASED GLUCOSE; Start 12/09/18 at 18:30 Glucagon (Glucagen) 1 mg Q15M PRN IM DECREASED GLUCOSE; Start 12/09/18 at 18:30 Glucose (Glutose) 15 gm Q15M PRN BUCCAL DECREASED GLUCOSE; Start 12/09/18 at 18:30 Hydralazine HCl (Apresoline) 20 mg Q4 PRN IV SBP > 160 Last administered on 12/09/18 21:32; Admin Dose 20 MG; Start 12/09/18 at 21:00 Clonidine (Catapres) 0.1 mg Q6H PRN PO SBP> 160 Last administered on 12/09/18 22:14; Admin Dose 0.1 MG; Start 12/09/18 at 21:00 Amlodipine Besylate (Norvasc) 10 mg DAILY PO Last administered on 12/18/18 08:54; Admin Dose 10 MG; Start 12/09/18 at 21:00 Zolpidem Tartrate (Ambien) 5 mg HS PRN PO INSOMNIA; Start 12/09/18 at 23:30 Acetaminophen/ Hydrocodone Bitart (Ponce (10/325)) 1 tab Q6H PRN PO MODERATE PAIN LEVEL 4-6 Last administered on 12/17/18 12:04; Admin Dose 1 TAB; Start 12/10/18 at 19:00 Clonidine (Catapres) 0.1 mg BID PO Last administered on 12/18/18 21:43; Admin Dose 0.1 MG; Start 12/10/18 at 21:00 Hydralazine HCl (Apresoline) 25 mg Q8 PO Last administered on 12/19/18 06:20; Admin Dose 25 MG; Start 12/10/18 at 22:00 Tamsulosin HCl (Flomax) 0.4 mg HS PO Last administered on 12/18/18 21:44; Admin Dose 0.4 MG; Start 12/10/18 at 21:00 Insulin Human NPH (Humulin N) 4 unit DAILY@0900 SC Last administered on 12/19/18 10:10; Admin Dose 4 UNIT; Start 12/12/18 at 09:00 Ampicillin Sodium/ Sulbactam Sodium 50 ml @ 100 mls/hr Q12 IVPB Last administered on 12/19/18 08:40; Admin Dose 100 MLS/HR; Start 12/13/18 at 13:00 Insulin Aspart (Novolog Insulin Pen) 3 unit AC LUNCH DINNER SC Last administered on 12/18/18 17:47; Admin Dose 3 UNIT; Start 12/13/18 at 17:30 Tacrolimus (Prograf) 1 mg QHS PO Last administered on 12/18/18 21:44; Admin Dose 1 MG; Start 12/13/18 at 21:00 Insulin Aspart (Novolog Insulin Pen) 3 unit AC BREAKFAST SC Last administered on 12/18/18 07:56; Admin Dose 3 UNIT; Start 12/15/18 at 07:00 Insulin Aspart (Novolog Insulin Pen) NOVOLOG *MILD* ALGORITHM AC DINNER BEDTIME SC Last administered on 12/17/18 21:43; Admin Dose 1 UNIT; Start 12/14/18 at 17:30 Insulin Aspart (Novolog Insulin Pen) NOVOLOG *CUSTOM* ALGORITHM AC BREAKFAST LUNCH SC ; Start 12/15/18 at 07:00 Escitalopram Oxalate (Lexapro) 10 mg DAILY PO Last administered on 12/19/18 08:31; Admin Dose 10 MG; Start 12/14/18 at 14:00 Morphine Sulfate (morphine) 6 mg Q4H PRN PO SEVERE PAIN LEVEL 7-10 Last administered on 12/18/18 11:19; Admin Dose 6 MG; Start 12/14/18 at 23:00 Metoclopramide HCl (Reglan) 10 mg Q6H PRN IV NAUSEA; Start 12/15/18 at 18:30 Sodium Bicarbonate (Sodium Bicarbonate Tab) 1,300 mg TID PO Last administered on 12/19/18 08:32; Admin Dose 1,300 MG; Start 12/17/18 at 21:00 Morphine Sulfate (morphine) 2 mg Q4H PRN IV SEVERE PAIN LEVEL 7-10 Last administered on 12/19/18 08:32; Admin Dose 2 MG; Start 12/18/18 at 14:30 Tacrolimus (Prograf) 2 mg QAM PO Last administered on 12/19/18at 08:32; Admin D ose 2 MG; Start 12/19/18 at 09:00 Insulin Glargine (Lantus) 6 units DAILY@2000 SC ; Start 12/19/18 at 20:00 GENNARO GAO Dec 19, 2018 11:29
--- NOTE | 2018-12-19 11:58 | NUR ---
RN NOTES: Patient's blood glucose was 52 mg/dl, asymptomatic. Patient refused to eat & wants to drink regular soda only. @ 1240: blood glucose rechecked, 64 mg/dl, patient was eating regular jello & refused to eat lunch. @ 1311: blood glucose rechecked 108 mg/dl. Dr Almonte informed & aware with no orders at this time. Patient has been [facility] with room available. pedigree tracer informed as well as Dr Maier.
--- NOTE | 2018-12-19 12:55 | CONS ---
Consult Date/Type/Reason Admit Date/Time Dec 09, 2018 at 14:30 Initial Consult Date 12/10/18 Type of Consultation: Urology Reason for Consultation Hydronephrosis of the transplanted kidney. Requesting Provider: HARVINDER BLOOD MD Date/Time of Note DATE: 12/19/18 TIME: 12:47 Subjective The patient complaining of pain in the penis. Objective Vitals Vital Signs Date Temp Pulse Resp B/P (MAP) Pulse Ox O2 O2 Flow FiO2 Time Delivery Rate 12/19/18 98.2 88 19 140/53 99 11:04 (82) 12/19/18 Room Air 04:00 Intake and Output 12/18/18 12/18/18 12/19/18 1515:00 23:00 07:00 IntakeIntake Total 240 ml 240 ml 350 ml OutputOutput Total 200 ml 450 ml BalanceBalance 240 ml 40 ml -100 ml Exam The Varela catheter that he had was not inside the bladder. Results/Medications Result Diagram: 12/18/18 0527 12/19/18 0539 Results 24 hrs Laboratory Tests Test 12/18/18 17:09 12/18/18 21:42 12/19/18 05:39 12/19/18 07:49 Bedside Glucose 107 130 49 *L Sodium Level 142 Potassium Level 5.1 Chloride Level 109 Carbon Dioxide Level 19 L Anion Gap 14 H Blood Urea Nitrogen 54 H Creatinine 4.30 H Est Glomerular 14 L Filtrat Rate mL/min Glucose Level 62 #L Calcium Level 9.6 Test 12/19/18 08:03 12/19/18 08:30 12/19/18 11:58 Bedside Glucose 60 L 117 52 L Home Meds Reported Medications Sitagliptin* (Januvia*) 50 Mg Tablet, 50 MG PO DAILY, #30 TAB 12/09/18 Tacrolimus* (Tacrolimus*) 1 Mg Capsule, 3 MG PO QAM, CAP 12/09/18 Tacrolimus* (Tacrolimus*) 1 Mg Capsule, 2 MG PO QHS, CAP 12/09/18 Mycophenolate Sodium* (Mycophenolic Acid*) 180 Mg Tablet.dr, 540 MG PO Q12, TAB 12/09/18 Prednisone* (Prednisone*) 5 Mg Tab, 5 MG PO DAILY, TAB 12/09/18 Glipizide* (Glipizide*) 5 Mg Tablet, 5 MG PO AC BREAKFAST DINNER, TAB 2/6/19 Clonidine Hcl* (Clonidine Hcl*) 0.1 Mg Tab, 0.1 MG PO DAILY, TAB 12/09/18 Insulin Lispro (Humalog) 100 Unit/1 Ml Cartridge, 0 SQ SLIDING SCALE, EA INSURANECE NOT COVERED THIS INSULIN 09/23/18 Medications Current Medications Prednisone (Prednisone) 5 mg DAILY PO Last administered on 12/19/18at 08:32; Admin Dose 5 MG; Start 12/10/18 at 09:00 Diagnostic Test (Pha) (Accu-Chek) 1 ea 02 XX Last administered on 12/16/18at 01:55; Admin Dose 1 EA; Start 12/10/18 at 02:00 Ondansetron HCl (Zofran Inj) 4 mg Q6H PRN IV NAUSEA/VOMITING Last administered on 12/19/18at 07:59; Admin Dose 4 MG; Start 12/09/18 at 18:30 Acetaminophen (Tylenol Tab) 650 mg Q6H PRN PO .PAIN 1-3 OR TEMP Last administered on 12/09/18at 22:14; Admin Dose 650 MG; Start 12/09/18 at 18:30 Docusate Sodium (Colace) 100 mg Q12H PRN PO .CONSTIPATION; Start 12/09/18 at 18:30 Bisacodyl (Dulcolax) 5 mg DAILY PRN PO .CONSTIPATION; Start 12/09/18 at 18:30 Famotidine (Pepcid) 20 mg DAILY PO Last administered on 12/19/18at 08:32; Admin Dose 20 MG; Start 12/09/18 at 21:00 Heparin Sodium (Porcine) (Heparin (5000 Units/1ml)) 5,000 unit Q12 SC ; Start 12/09/18 at 21:00 Miscellaneous Information 1 ea NOTE XX ; Start 12/09/18 at 18:30 Glucose (Glutose) 15 gm Q15M PRN PO DECREASED GLUCOSE; Start 12/09/18 at 18:30 Glucose (Glutose) 22.5 gm Q15M PRN PO DECREASED GLUCOSE; Start 12/09/18 at 18:30 Dextrose (D50w Syringe) 25 ml Q15M PRN IV DECREASED GLUCOSE; Start 12/09/18 at 18:30 Dextrose (D50w Syringe) 50 ml Q15M PRN IV DECREASED GLUCOSE; Start 12/09/18 at 18:30 Glucagon (Glucagen) 1 mg Q15M PRN IM DECREASED GLUCOSE; Start 12/09/18 at 18:30 Glucose (Glutose) 15 gm Q15M PRN BUCCAL DECREASED GLUCOSE; Start 12/09/18 at 18 :30 Hydralazine HCl (Apresoline) 20 mg Q4 PRN IV SBP > 160 Last administered on 12/09/18 21:32; Admin Dose 20 MG; Start 12/09/18 at 21:00 Clonidine (Catapres) 0.1 mg Q6H PRN PO SBP> 160 Last administered on 12/09/18 22:14; Admin Dose 0.1 MG; Start 12/09/18 at 21:00 Amlodipine Besylate (Norvasc) 10 mg DAILY PO Last administered on 12/18/18 08:54; Admin Dose 10 MG; Start 12/09/18 at 21:00 Zolpidem Tartrate (Ambien) 5 mg HS PRN PO INSOMNIA; Start 12/09/18 at 23:30 Acetaminophen/ Hydrocodone Bitart (Sullivan (10/325)) 1 tab Q6H PRN PO MODERATE PAIN LEVEL 4-6 Last administered on 12/17/18 12:04; Admin Dose 1 TAB; Start 12/10/18 at 19:00 Clonidine (Catapres) 0.1 mg BID PO Last administered on 12/18/18 21:43; Admin Dose 0.1 MG; Start 12/10/18 at 21:00 Hydralazine HCl (Apresoline) 25 mg Q8 PO Last administered on 12/19/18 06:20; Admin Dose 25 MG; Start 12/10/18 at 22:00 Tamsulosin HCl (Flomax) 0.4 mg HS PO Last administered on 12/18/18 21:44; Admin Dose 0.4 MG; Start 12/10/18 at 21:00 Insulin Human NPH (Humulin N) 4 unit DAILY@0900 SC Last administered on 12/19/18 10:10; Admin Dose 4 UNIT; Start 12/12/18 at 09:00 Ampicillin Sodium/ Sulbactam Sodium 50 ml @ 100 mls/hr Q12 IVPB Last adm inistered on 12/19/18 08:40; Admin Dose 100 MLS/HR; Start 12/13/18 at 13:00 Insulin Aspart (Novolog Insulin Pen) 3 unit AC LUNCH DINNER SC Last administered on 12/18/18 17:47; Admin Dose 3 UNIT; Start 12/13/18 at 17:30 Tacrolimus (Prograf) 1 mg QHS PO Last administered on 12/18/18 21:44; Admin Dose 1 MG; Start 12/13/18 at 21:00 Insulin Aspart (Novolog Insulin Pen) 3 unit AC BREAKFAST SC Last administered on 12/18/18 07:56; Admin Dose 3 UNIT; Start 12/15/18 at 07:00 Insulin Aspart (Novolog Insulin Pen) NOVOLOG *MILD* ALGORITHM AC DINNER BEDTIME SC Last administered on 12/17/18 21:43; Admin Dose 1 UNIT; Start 12/14/18 at 17:30 Insulin Aspart (Novolog Insulin Pen) NOVOLOG *CUSTOM* ALGORITHM AC BREAKFAST LUNCH SC ; Start 12/15/18 at 07:00 Escitalopram Oxalate (Lexapro) 10 mg DAILY PO Last administered on 12/19/18 08:31; Admin Dose 10 MG; Start 12/14/18 at 14:00 Morphine Sulfate (morphine) 6 mg Q4H PRN PO SEVERE PAIN LEVEL 7-10 Last administered on 12/18/18 11:19; Admin Dose 6 MG; Start 12/14/18 at 23:00 Metoclopramide HCl (Reglan) 10 mg Q6H PRN IV NAUSEA; Start 12/15/18 at 18:30 Sodium Bicarbonate (Sodium Bicarbonate Tab) 1,300 mg TID PO Last administered on 12/19/18 08:32; Admin Dose 1,300 MG; Start 12/17/18 at 21:00 Morphine Sulfate (morphine) 2 mg Q4H PRN IV SEVERE PAIN LEVEL 7-10 Last administered on 12/19/18 08:32; Admin Dose 2 MG; Start 12/18/18 at 14:30 Tacrolimus (Prograf) 2 mg QAM PO Last administered on 12/19/18 08:32; Admin Dose 2 MG; Start 12/19/18 at 09:00 Insulin Glargine (Lantus) 6 units DAILY@2000 SC ; Start 12/19/18 at 20:00 Assessment/Plan Hospital Course (Demo Recall) This is a 58-year-old male with a past medical history of cadaveric kidney transplant in 2009, on Tacrolimus , prednisone 5 mg daily, rheumatoid arthritis, HCV infection, history of 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 The patient said that the symptoms started 4 days ago and the skin darkening progressed over the last couple of days. On admission the blood sugar was 500, sodium 134, potassium 6.1, bicarbonate 18, BUN of 48, creatinine of 3.21. The patient's baseline creatinine is 1.5 and that has been going gradually up since 2017. Patient stated that he had an appointment at [facility] on December 11, 2018 to have biopsy of the kidney transplant because of the rising creatinine. He underwent a renal ultrasound and that showed that the transplanted kidney is a little hydronephrotic. Therefore a urological consultation was requested. Patient states that he does have nocturia about 3 times a night and during the day he voids 4-5 times. He denies any dysuria. He states his urinary stream is strong and there is no gross hematuria. He denies any history of urinary tract infection. The patient does have severe atherosclerosis of his vessels. He does have peripheral vascular disease. His creatinine has been going up gradually and he was supposed to go to [facility] to undergo biopsy of his transplanted kidney. The ultrasound that he had did show a small right hydronephrosis and that is not unusual to see that in the transplanted kidney especially when the bladder is full. On 12/15/2018 he had a Varela catheter put in his renal function continues to deteriorate and he had pelvic ultrasound and that showed the bladder to be full but yet when I reviewed it I do not see the balloon to be inside the bladder. On the examination the catheter did not appear to be inside the bladder with the balloon inflated and the penoscrotal urethra and one could feel the balloon at the base of the scrotum. The patient states that the nurse when she inserted the catheter was nervous and it did hurt. I had his nurse come in and I demonstrated to her signs to diagnose that the catheter is not inside the bladder where the tip of the catheter reaches the knee and the b alloon is felt at the base of the scrotum. We did remove the catheter and he had a bleeding coming out. I tried to insert a 16 British regular catheter and that would not go in as it was going in a false passage. Therefore I did get the urology cart and inserted a 14 British coud catheter. And this 1 was in good position but he only had 40 mL of urine. The patient therefore is oliguric. I did irrigate the catheter and it does irrigate well. I did discuss these findings with his medical team and the patient is awaiting transfer to [facility] to be followed by his transplant team. RAMILA GONZALEZ MD Dec 19, 2018 12:55
[2018-12-19 13:09] VITALS: PULSE 96
--- NOTE | 2018-12-19 13:15 | NUR ---
Pt has a bed at [facility] Bed 3s38. Maryse called and will mixing picker tender at 2 pm. Trip # [id number].
--- NOTE | 2018-12-19 14:30 | CONS ---
Consult Date/Type/Reason Admit Date/Time Dec 09, 2018 at 14:30 Initial Consult Date 12/10/18 Type of Consultation: Urology Requesting Provider: HARVINDER BLOOD MD Date/Time of Note DATE: 12/19/18 TIME: 14:27 Subjective NO acute events - BP in good range - on CP now -will monitor clinically. ROS: No fever, no nausea, no vomiting, no diarrhea/constipation No recent weight changes No chest pain, no PND, no orthopnea -mild SOB, + chills No dizziness, blurred vision No thirst, no heat or cold intolerance Objective Vitals Vital Signs Date Temp Pulse Resp B/P (MAP) Pulse Ox O2 O2 Flow FiO2 Time Delivery Rate 12/19/18 96 13:09 12/19/18 98.2 19 140/53 99 11:04 (82) 12/19/18 Room Air 04:00 Intake and Output 12/18/18 12/18/18 12/19/18 1515:00 23:00 07:00 IntakeIntake Total 240 ml 240 ml 350 ml OutputOutput Total 200 ml 450 ml BalanceBalance 240 ml 40 ml -100 ml Exam General: WN/WD/NAD, AOx 3 comfortable, ill appearing HEENT: Unicetric/atraumatic/EOMI (follow commands) NECK: JVD elevated, no thyromegaly Lymph: no lymphadenopathy HEART: regular with no S3, II/ systolic murmur at apex, PMI L LUNGS: Coarse sounds ABD: soft, NT, ND, +BS : Intact Neuro: non focal SKIN: chronic changes EXT: trace edema, chronic changes Results/Medications Result Diagram: 12/18/18 0527 12/19/18 0539 Results 24 hrs Laboratory Tests Test 12/18/18 17:09 12/18/18 21:42 12/19/18 05:39 12/19/18 07:49 Bedside Glucose 107 130 49 *L Sodium Level 142 Potassium Level 5.1 Chloride Level 109 Carbon Dioxide Level 19 L Anion Gap 14 H Blood Urea Nitrogen 54 H Creatinine 4.30 H Est Glomerular 14 L Filtrat Rate mL/min Glucose Level 62 #L Calcium Level 9.6 Test 12/19/18 08:03 12/19/18 08:30 12/19/18 11:58 12/19/18 12:40 Bedside Glucose 60 L 117 52 L 64 L Test 12/19/18 13:11 Bedside Glucose 108 Home Meds Reported Medications Sitagliptin* (Januvia*) 50 Mg Tablet, 50 MG PO DAILY, #30 TAB 12/09/18 Tacrolimus* (Tacrolimus*) 1 Mg Capsule, 3 MG PO QAM, CAP 12/09/18 Tacrolimus* (Tacrolimus*) 1 Mg Capsule, 2 MG PO QHS, CAP 12/09/18 Mycophenolate Sodium* (Mycophenolic Acid*) 180 Mg Tablet.dr, 540 MG PO Q12, TAB 12/09/18 Prednisone* (Prednisone*) 5 Mg Tab, 5 MG PO DAILY, TAB 12/09/18 Glipizide* (Glipizide*) 5 Mg Tablet, 5 MG PO AC BREAKFAST DINNER, TAB 12/09/18 Clonidine Hcl* (Clonidine Hcl*) 0.1 Mg Tab, 0.1 MG PO DAILY, TAB 12/09/18 Insulin Lispro (Humalog) 100 Unit/1 Ml Cartridge, 0 SQ SLIDING SCALE, EA INSURANECE NOT COVERED THIS INSULIN 09/23/18 Medications Current Medications Prednisone (Prednisone) 5 mg DAILY PO Last administered on 12/19/18at 08:32; Admin Dose 5 MG; Start 12/10/18 at 09:00 Diagnostic Test (Pha) (Accu-Chek) 1 ea 02 XX Last administered on 12/16/18at 01:55; Admin Dose 1 EA; Start 12/10/18 at 02:00 Ondansetron HCl (Zofran Inj) 4 mg Q6H PRN IV NAUSEA/VOMITING Last administered on 12/19/18at 07:59; Admin Dose 4 MG; Start 12/09/18 at 18:30 Acetaminophen (Tylenol Tab) 650 mg Q6H PRN PO .PAIN 1-3 OR TEMP Last administered on 12/09/18at 22:14; Admin Dose 650 MG; Start 12/09/18 at 18:30 Docusate Sodium (Colace) 100 mg Q12H PRN PO .CONSTIPATION; Start 12/09/18 at 18:30 Bisacodyl (Dulcolax) 5 mg DAILY PRN PO .CONSTIPATION; Start 12/09/18 at 18:30 Famotidine (Pepcid) 20 mg DAILY PO Last administered on 12/19/18at 08:32; Admin Dose 20 MG; Start 12/09/18 at 21:00 Heparin Sodium (Porcine) (Heparin (5000 Units/1ml)) 5,000 unit Q12 SC ; Start 12/09/18 at 21:00 Miscellaneous Information 1 ea NOTE XX ; Start 12/09/18 at 18:30 Glucose (Glutose) 15 gm Q15M PRN PO DECREASED GLUCOSE; Start 12/09/18 at 18:30 Glucose (Glutose) 22.5 gm Q15M PRN PO DECREASED GLUCOSE; Start 12/09/18 at 18:30 Dextrose (D50w Syringe) 25 ml Q15M PRN IV DECREASED GLUCOSE; Start 12/09/18 at 18:30 Dextrose (D50w Syringe) 50 ml Q15M PRN IV DECREASED GLUCOSE; Start 12/09/18 at 18:30 Glucagon (Glucagen) 1 mg Q15M PRN IM DECREASED GLUCOSE; Start 12/09/18 at 18:30 Glucose (Glutose) 15 gm Q15M PRN BUCCAL DECREASED GLUCOSE; Start 12/09/18 at 18:30 Hydralazine HCl (Apresoline) 20 mg Q4 PRN IV SBP > 160 Last administered on 12/09/18at 21:32; Admin Dose 20 MG; Start 12/09/18 at 21:00 Clonidine (Catapres) 0.1 mg Q6H PRN PO SBP> 160 Last administered on 12/09/18at 22:14; Admin Dose 0.1 MG; Start 12/09/18 at 21:00 Amlodipine Besylate (Norvasc) 10 mg DAILY PO Last administered on 12/18/18at 08:54; Admin Dose 10 MG; Start 12/09/18 at 21:00 Zolpidem Tartrate (Ambien) 5 mg HS PRN PO INSOMNIA; Start 12/09/18 at 23:30 Acetaminophen/ Hydrocodone Bitart ([place] (10/325)) 1 tab Q6H PRN PO MODERATE PAIN LEVEL 4-6 Last administered on 12/17/18at 12:04; Admin Dose 1 TAB; Start at 19:00 Clonidine (Catapres) 0.1 mg BID PO Last administered on 12/18/18at 21:43; Admin Dose 0.1 MG; Start 12/10/18 at 21:00 Hydralazine HCl (Apresoline) 25 mg Q8 PO Last administered on 12/19/18 13:12; Admin Dose 25 MG; Start 12/10/18 at 22:00 Tamsulosin HCl (Flomax) 0.4 mg HS PO Last administered on 12/18/18 21:44; Admin Dose 0.4 MG; Start 12/10/18 at 21:00 Insulin Human NPH (Humulin N) 4 unit DAILY@0900 SC Last administered on 12/19/18 10:10; Admin Dose 4 UNIT; Start 12/12/18 at 09:00 Ampicillin Sodium/ Sulbactam Sodium 50 ml @ 100 mls/hr Q12 IVPB Last administered on 12/19/18 08:40; Admin Dose 100 MLS/HR; Start 12/13/18 at 13:00 Insulin Aspart (Novolog Insulin Pen) 3 unit AC LUNCH DINNER SC Last administered on 12/18/18 17:47; Admin Dose 3 UNIT; Start 12/13/18 at 17:30 Tacrolimus (Prograf) 1 mg QHS PO Last administered on 12/18/18 21:44; Admin Dose 1 MG; Start 12/13/18 at 21:00 Insulin Aspart (Novolog Insulin Pen) 3 unit AC BREAKFAST SC Last administered on 12/18/18 07:56; Admin Dose 3 UNIT; Start 12/15/18 at 07:00 Insulin Aspart (Novolog Insulin Pen) NOVOLOG *MILD* ALGORITHM AC DINNER BEDTIME SC Last administered on 12/17/18 21:43; Admin Dose 1 UNIT; Start 12/14/18 at 17:30 Insulin Aspart (Novolog Insulin Pen) NOVOLOG *CUSTOM* ALGORITHM AC BREAKFAST L UNCH SC ; Start 12/15/18 at 07:00 Escitalopram Oxalate (Lexapro) 10 mg DAILY PO Last administered on 12/19/18 08:31; Admin Dose 10 MG; Start 12/14/18 at 14:00 Morphine Sulfate (morphine) 6 mg Q4H PRN PO SEVERE PAIN LEVEL 7-10 Last administered on 12/18/18 11:19; Admin Dose 6 MG; Start 12/14/18 at 23:00 Metoclopramide HCl (Reglan) 10 mg Q6H PRN IV NAUSEA; Start 12/15/18 at 18:30 Sodium Bicarbonate (Sodium Bicarbonate Tab) 1,300 mg TID PO Last administered on 12/19/18at 13:12; Admin Dose 1,300 MG; Start 12/17/18 at 21:00 Morphine Sulfate (morphine) 2 mg Q4H PRN IV SEVERE PAIN LEVEL 7-10 Last administered on 12/19/18at 08:32; Admin Dose 2 MG; Start 12/18/18 at 14:30 Tacrolimus (Prograf) 2 mg QAM PO Last administered on 12/19/18at 08:32; Admin Dose 2 MG; Start 12/19/18 at 09:00 Insulin Glargine (Lantus) 6 units DAILY@2000 SC ; Start 12/19/18 at 20:00 Assessment/Plan Hospital Course (Demo Recall) 1. Hypertension-labile, stable now - pt feels tired 2. Gangrenous changes of the patient's finger - defer to surgical team. 3. Renal failure on HD - Rx per renal team. 4. Rheumatoid arthritis - rheum to follow. 5. Diabetes mellitus - on meds, keep euvolemic. 6. History of Juan's esophagus. 7. Dyslipidemia. 8. Bacteremia-S aureus - Rx with anti-Bx now - isolation RAQUEL BAIRES MD Dec 19, 2018 14:30
--- NOTE | 2018-12-19 15:03 | DS ---
Date/Time of Note Date/Time of Note DATE: 12/19/18 TIME: 15:03 Discharge Summary Admission/Discharge Info Admit Date/Time Dec 09, 2018 at 14:30 Discharge Date/Time Home Meds Reported Medications Sitagliptin* (Januvia*) 50 Mg Tablet, 50 MG PO DAILY, #30 TAB 12/09/18 Tacrolimus* (Tacrolimus*) 1 Mg Capsule, 3 MG PO QAM, CAP 12/09/18 Tacrolimus* (Tacrolimus*) 1 Mg Capsule, 2 MG PO QHS, CAP 12/09/18 Mycophenolate Sodium* (Mycophenolic Acid*) 180 Mg Tablet.dr, 540 MG PO Q12, TAB 12/09/18 Prednisone* (Prednisone*) 5 Mg Tab, 5 MG PO DAILY, TAB 12/09/18 Glipizide* (Glipizide*) 5 Mg Tablet, 5 MG PO AC BREAKFAST DINNER, TAB 12/09/18 Clonidine Hcl* (Clonidine Hcl*) 0.1 Mg Tab, 0.1 MG PO DAILY, TAB 12/09/18 Insulin Lispro (Humalog) 100 Unit/1 Ml Cartridge, 0 SQ SLIDING SCALE, EA INSURANECE NOT COVERED THIS INSULIN 09/23/18 Primary Care Provider Care Physician No Primary Pending Labs Laboratory Tests Test 12/18/18 17:09 12/18/18 21:42 12/19/18 05:39 12/19/18 07:49 Bedside 107 130 49 Glucose mg/dL (70-220) mg/dL (70-220) mg/dL (70-220) Sodium Level 142 mmol/L (135-14 4) Potassium 5.1 Level mmol/L (3.5-5. 1) Chloride Level 109 mmol/L (97-110 ) Carbon Dioxide 19 Level mmol/L (21-31) Anion Gap 14 (5-13) Blood Urea 54 Nitrogen mg/dl (7-20) Creatinine 4.30 mg/dl (0.61-1. 24) Est Glomerular 14 Filtrat mL/min (>60) Rate mL/min Glucose Level 62 mg/dl (70-220) Calcium Level 9.6 mg/dl (8.4-10. 2) Test 12/19/18 08:03 12/19/18 08:30 12/19/18 11:58 12/19/18 12:40 Bedside 60 117 52 64 Glucose mg/dL (70-220) mg/dL (70-220) mg/dL (70-220) mg/dL (70-220) Test 12/19/18 13:11 Bedside 108 Glucose mg/dL (70-220) EILEEN COBURN Dec 19, 2018 15:03
--- NOTE | 2018-12-19 15:03 | PDOCDIS ---
Discharge Instructions CONDITION [id number] Patient Condition: [id number] Stable HOME CARE INSTRUCTIONS: [id number] Diet Instructions: [id number] ACTIVITY: [id number] Activity Restrictions: [id number] Avoid heavy lifting Do not operate Machinery Do not operate Power Tool EILEEN COBURN Dec 19, 2018 15:03
--- NOTE | 2018-12-19 15:10 | NUR ---
RN NOTES: Patient discharged to [facility] as ordered via rabhishek with ambulance personnel. Report given to Lucio quarles at [facility].
[2018-12-19] MEDS ORDERED: INSULIN GLARGINE [LANTus] (100 UNITS/ML) SYG SC SCH (20:00)
--- NOTE | 2018-12-19 23:36 | PN ---
Date/Time of Note Date/Time of Note DATE: 12/19/18 TIME: 23:36 Assessment/Plan VTE Prophylaxis Risk score (from Nsg)>0 risk: 1 SCD applied (from Nsg): No Lines/Catheters IV Catheter Type (from Nrsg): Mid Line Urinary Cath still in place: Yes Assessment/Plan Result Diagram: 12/18/18 0527 12/19/18 0539 Results 24hrs Laboratory Tests Test 12/19/18 05:39 12/19/18 07:49 12/19/18 08:03 12/19/18 08:30 Sodium Level 142 Potassium Level 5.1 Chloride Level 109 Carbon Dioxide Level 19 L Anion Gap 14 H Blood Urea Nitrogen 54 H Creatinine 4.30 H Est Glomerular 14 L Filtrat Rate mL/min Glucose Level 62 #L Calcium Level 9.6 Bedside Glucose 49 *L 60 L 117 Test 12/19/18 11:58 12/19/18 12:40 12/19/18 13:11 Bedside Glucose 52 L 64 L 108 Exam/Review of Systems Exam Vitals Vital Signs Date Temp Pulse Resp B/P (MAP) Pulse Ox O2 O2 Flow FiO2 Time Delivery Rate 12/19/18 96 13:09 12/19/18 98.2 19 140/53 99 11:04 (82) 12/19/18 Room Air 04:00 Intake and Output 12/18/18 12/18/18 12/19/18 1515:00 23:00 07:00 IntakeIntake Total 240 ml 240 ml 350 ml OutputOutput Total 200 ml 450 ml BalanceBalance 240 ml 40 ml -100 ml Results Results 24hrs Laboratory Tests Test 12/19/18 05:39 12/19/18 07:49 12/19/18 08:03 12/19/18 08:30 Sodium Level 142 Potassium Level 5.1 Chloride Level 109 Carbon Dioxide Level 19 L Anion Gap 14 H Blood Urea Nitrogen 54 H Creatinine 4.30 H Est Glomerular 14 L Filtrat Rate mL/min Glucose Level 62 #L Calcium Level 9.6 Bedside Glucose 49 *L 60 L 117 Test 12/19/18 11:58 12/19/18 12:40 12/19/18 13:11 Bedside Glucose 52 L 64 L 108 EILEEN COBURN Dec 19, 2018 23:36
== END 2018-12-19 15:10 | disposition short-term general hospital (02) | DRG 872 ==
LOC: E/R 13:35 → 2NE 14:30 → 6WM 18:35
PROVIDERS: ADMIT Internal Medicine; ATTEND Internal Medicine
DX: A41.9 Sepsis, unspecified organism (principal); E11.52 Type 2 diabetes mellitus with diabetic peripheral angiopathy with gangrene; Z94.0 Kidney transplant status; N17.9 Acute kidney failure, unspecified; N13.6 Pyonephrosis; F33.2 Major depressive disorder, recurrent severe without psychotic features; E87.2 Acidosis; I70.268 Atherosclerosis of native arteries of extremities with gangrene, other extremity; E11.21 Type 2 diabetes mellitus with diabetic nephropathy; N18.3 Chronic kidney disease, stage 3 (moderate); E11.22 Type 2 diabetes mellitus with diabetic chronic kidney disease; E11.65 Type 2 diabetes mellitus with hyperglycemia; E87.5 Hyperkalemia; R65.20 Severe sepsis without septic shock; L03.011 Cellulitis of right finger; B18.2 Chronic viral hepatitis C; M06.9 Rheumatoid arthritis, unspecified; I12.9 Hypertensive chronic kidney disease with stage 1 through stage 4 chronic kidney disease, or unspecified chronic kidney disease; E78.5 Hyperlipidemia, unspecified; E89.2 Postprocedural hypoparathyroidism; D63.1 Anemia in chronic kidney disease; D63.8 Anemia in other chronic diseases classified elsewhere; B35.1 Tinea unguium; B95.62 Methicillin resistant Staphylococcus aureus infection as the cause of diseases classified elsewhere; B96.1 Klebsiella pneumoniae [K. pneumoniae] as the cause of diseases classified elsewhere; I70.25 Atherosclerosis of native arteries of other extremities with ulceration; L98.499 Non-pressure chronic ulcer of skin of other sites with unspecified severity; Z79.4 Long term (current) use of insulin; Z79.82 Long term (current) use of aspirin; Z91.14 Patient's other noncompliance with medication regimen; Z89.029 Acquired absence of unspecified finger(s)
CPT/HCPCS: 36415; 71045; 74176; 76775; 80048; 80053; 80197; 81001; 82550; 82553; 82575; 82962; 83036; 83605; 83735; 84100; 84156; 84300; 84484; 85025; 85610; 85651; 85730; 87040; 87086; 89190; 93005; 93306; J0295; J0360; J1644; J1815; J1940; J2270; J2274; J2405; J2543; J3370; J7030; J7070; J7507; J7512

== ENCOUNTER 2019-01-09 17:11 | Inpatient (IN) | payer OTHER ==
[~2019-01-09] VITALS: Ht 172.7 cm; Wt 59.6 kg
[~2019-01-09 17:11] MED LIST changes: -ASPI-831 PO; -ATOR10TA65 PO; -METO10TA92 PO; -MYCO160 PO; +MYCO180T2 PO; -ONDA4TAB14 PO; -TACR0.5C PO; +TACR1CAP PO
[2019-01-09] MEDS ORDERED: FUROSEMIDE 20 MG INJ IV STA (18:22)
--- NOTE | 2019-01-09 18:44 | ERD ---
ER Documentation Chief Complaint Chief Complaint urinary retention and sob x 3 days HPI This is a 58-year-old male who is here because he is getting gradual swelling to his extremities over the past week. He has a history of renal transplant when his last creatinine was 3.1 about a month ago. He also has hepatitis C but denies any heart failure. He says he is getting edema to his legs and left upper extremity. He has dyspnea on exertion and some orthopnea. No fever no chest pain no GI symptoms. He also has testicular and scrotal swelling ROS All systems reviewed and are negative except as per history of present illness. Medications Home Meds Reported Medications Sitagliptin* (Januvia*) 50 Mg Tablet, 50 MG PO DAILY, #30 TAB 12/09/18 Tacrolimus* (Tacrolimus*) 1 Mg Capsule, 3 MG PO QAM, CAP 12/09/18 Tacrolimus* (Tacrolimus*) 1 Mg Capsule, 2 MG PO QHS, CAP 12/09/18 Mycophenolate Sodium* (Mycophenolic Acid*) 180 Mg Tablet.dr, 540 MG PO Q12, TAB 12/09/18 Prednisone* (Prednisone*) 5 Mg Tab, 5 MG PO DAILY, TAB 12/09/18 Glipizide* (Glipizide*) 5 Mg Tablet, 5 MG PO AC BREAKFAST DINNER, TAB 12/09/18 Clonidine Hcl* (Clonidine Hcl*) 0.1 Mg Tab, 0.1 MG PO DAILY, TAB 12/09/18 Insulin Lispro (Humalog) 100 Unit/1 Ml Cartridge, 2-10 UNITS SQ SLIDING SCALE, EA INSURANECE NOT COVERED THIS INSULIN 09/23/18 Allergies Allergies: Coded Allergies: magnesium (Unverified Allergy, Intermediate, 12/09/18) NUMBNESS AND HOT FUSHES PMhx/Soc History of Surgery: Yes (2012 kidney tansplant) Anesthesia Reaction: No Hx 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 Disorder: No Hx Respiratory Disorders: No Hx Cardiac Disorders: Yes (htn) Hx Psychiatric Problems: No Hx Miscellaneous Medical Probl: No Hx Alcohol Use: No Hx Substance Use: Yes (cocaine, marijuana) Hx Tobacco Use: No FmHx Family History: No coronary disease Physical Exam Vitals Vital Signs Date Temp Pulse Resp B/P (MAP) Pulse Ox O2 O2 Flow FiO2 Time Delivery Rate 01/09/19 Nasal 3 18:42 Cannula 01/09/19 97.7 63 16 97 Room Air 18:20 01/09/19 97.8 65 18 127/74 100 17:16 (91) Physical Exam Const: Well-developed, well-nourished Head: Atraumatic, normocephalic Eyes: Normal Conjunctiva, PERRLA, EOMI, normal sclera, no nystagmus ENT: Normal External Ears, Nose and Mouth, moist mucus membranes. Neck: Full range of motion. No meningismus, no lymphadenopathy. Resp: Clear to auscultation bilaterally, no wheezing, rhonchi, rales Cardio: Regular rate and rhythm, no murmurs, S1 S2 present Abd: Soft, non tender x 4, non distended. Normal bowel sounds, no guarding or rebound, no pulsitile abdominal masses or bruits Skin: No petechiae or rashes, no ecchymosis , no maculopapular rash Back: No midline or flank tenderness Ext: No cyanosis, bilateral lower extremity pitting edema there is swelling to the scrotum and penis also edema to the the arms left greater than right. Edema, FROM x 4, normal inspection, neurovascularly intact x 4 Neur: Awake and alert, STR 5/5 x 4, sensation intact x 4, no focal findings, cerebellum intact Psych: Normal Mood and Affect Result Diagram: 01/09/19189901/09/191899 Results 24 hrs Laboratory Tests Test 01/09/19 19:00 01/09/19 19:52 01/09/19 20:40 01/09/19 21:09 White Blood Count 4.7 10^3/ul Red Blood Count 2.39 10^6/ul Hemoglobin 8.0 g/dl Hematocrit 26.2 % Mean Corpuscular 109.6 fl Volume Mean Corpuscular 33.5 pg Hemoglobin Mean Corpuscular 30.5 g/dl Hemoglobin Concent Red Cell Distribution 15.1 % Width Platelet Count 164 10^3/UL Mean Platelet Volume 10.3 fl Immature Granulocytes 0.600 % % Neutrophils % 85.6 % Lymphocytes % 6.6 % Monocytes % 7.0 % Eosinophils % 0.0 % Basophils % 0.2 % Nucleated Red Blood 0.0 /100WBC Cells % Immature Granulocytes 0.030 10^3/ul # Neutrophils # 4.0 10^3/ul Lymphocytes # 0.3 10^3/ul Monocytes # 0.3 10^3/ul Eosinophils # 0.0 10^3/ul Basophils # 0.0 10^3/ul Nucleated Red Blood 0.0 10^3/ul Cells # Sodium Level 142 mmol/L Potassium Level 7.0 mmol/L Chloride Level 116 mmol/L Carbon Dioxide Level 16 mmol/L Anion Gap 10 Blood Urea Nitrogen 55 mg/dl Creatinine 3.40 mg/dl Est Glomerular Filtrat 19 mL/min Rate mL/min Glucose Level 188 mg/dl Calcium Level 9.0 mg/dl Total Bilirubin 0.2 mg/dl Direct Bilirubin 0.00 mg/dl Indirect Bilirubin 0.2 mg/dl Aspartate Amino 24 IU/L Transf (AST/SGOT) Alanine 7 IU/L Aminotransferase (ALT/ SGPT) Alkaline Phosphatase 70 IU/L Troponin I 0.018 ng/ml B-Type Natriuretic 89400 PG/ML Peptide Total Protein 6.4 g/dl Albumin 3.1 g/dl Globulin 3.30 g/dl Albumin/Globulin Ratio 0.93 Plasma Potassium 7.2 mmol/l Bedside Glucose 175 mg/dL 185 mg/dL Current Medications Medications Dose Sig/Kathryn Start Time Status Last (Trade) Ordered Route PRN Stop Time Admin Dose Reason Admin Furosemide 60 mg ONCE STAT 01/09/19 DC 01/09/19 (Lasix) IV 18:22 01/09/19 18:55 18:25 Sodium 30 gm ONCE STAT 01/09/19 DC Polystyrene PO 20:22 01/09/19 Sulfonate 20:25 (Kayexelate 15 Gm Kit (Powder+Sorbi sasha)) Sodium 50 ml ONCE STAT 01/09/19 DC 01/09/19 Bicarbonate IV 20:22 01/09/19 20:44 (Na Bicarb 20:25 8.4% Syg) Calcium 1,000 mg ONCE STAT 01/09/19 DC 01/09/19 Chloride IV 20:22 01/09/19 20:45 (Ca Chloride 20:25 10% Syg) Insulin 10 unit ONCE STAT 01/09/19 DC 01/09/19 Human IVP 20:22 01/09/19 20:44 Regular 20:25 (Humulin R) Dextrose 50 ml NOW PRN 01/09/19 01/09/19 (D50w IV 20:30 20:44 Syringe) HYPERKALEMIA Dextrose ONCE PRN 01/09/19 (D50w IV DECREASED 20:30 Syringe) GLUCOSE Ondansetron 4 mg ONCE STAT 01/09/19 DC HCl (Zofran IV 20:49 01/09/19 Inj) 20:51 Procedures/MDM EKG: Rate/Rhythm: Sinus bradycardia heart rate 56 with old septal infarct QRS, ST, QT: NORMAL RI, QRS, QT] Impression: Abnormal EKG Ordering MD: LILIAM WILLOUGHBY DO Location: E/R Room/Bed: PROCEDURE: XR Chest. CLINICAL INDICATION: Chest pain. TECHNIQUE: Chest, 1 view. COMPARISON: 12/16/2018. FINDINGS: Right PICC with tip at the cavoatrial junction. The cardiomediastinal silhouette is normal in size. There is mild pulmonary vascular congestion. There are small bilateral pleural effusions. No definite pneumothorax is seen. No acute osseous abnormality. IMPRESSION: Mild pulmonary vascular congestion. Small bilateral pleural effusions. Right PICC with tip at the cavoatrial junction. RPTAT: GG Physician Jones Date Time Electronically viewed and signed by Syd Corona Physician on 01/09/2019 19:20 PH/ CC: LILIAM WILLOUGHBY DO [id number] Patient's potassium was 7.0 recheck 7.2. Patient was given the hyperkalemia cocktail of calcium chloride sodium bicarb Kayexalate glucose. The patient was given Lasix for pulmonary edema. The patient has anasarca due to renal insufficiency and heart failure and hep C likely. Patient be admitted to hospital for a critical hyperkalemic state as well as volume overload./Anasarca. Spoke with Dr. Salvador will admit to telemetry. Critical Care Time: 30 minutes Treatments/Evaluations: Close monitoring and treatment of unstable vital signs, cardiorespiratory, and neurologic status, while maintaining tight balance of fluid, respiratory, and cardiac interventions. This time includes discussing the case with the patient and the patient's family. This time does not include all procedures stated elsewhere in this record. This time also includes reviewing old records, labs and radiological studies. This time includes examining and re- examining the patient. Additionally, this time also includes arranging care with admitting and consulting physicians. Departure Diagnosis: Primary Impression: Anasarca associated with disorder of kidney Additional Impressions: Hyperkalemia Congestive heart failure Heart failure type: unspecified Heart failure chronicity: unspecified Qualified Codes: I50.9 - Heart failure, unspecified Condition: Stable LILIAM WILLOUGHBY DO Jan 09, 2019 18:44
[2019-01-09] MEDS ORDERED: CA CHLORIDE 10% 10 ML SYRINGE IV STA (20:22)
[2019-01-09] MEDS ORDERED: NA BICARBONATE 8.4% 50 ML SYG IV STA (20:22)
[2019-01-09] MEDS ORDERED: SODIUM POLYSTYRENE 15 GM KIT (POWDER + SORBITOL) PO STA (20:22)
[2019-01-09] MEDS ORDERED: INSULIN REGULAR, HUMAN 100 UNIT/1 ML 3ML VIAL IVP STA (20:22)
[2019-01-09] MEDS ORDERED: DEXTROSE 50% 50 ML SYRINGE IV PRN (20:30)
[2019-01-09] MEDS: DEXTROSE 50% 50 ML SYRINGE IV PRN ×2 (20:44→22:18)
[2019-01-09] MEDS ORDERED: ONDANSETRON 4 MG INJ IV STA (20:49)
[2019-01-09] MEDS ORDERED: ONDANSETRON 4 MG INJ IV PRN (21:30)
[2019-01-09] MEDS ORDERED: ACETAMINOPHEN 325 MG TAB PO PRN (21:30)
[2019-01-09] MEDS ORDERED: ALBUTEROL 0.083% (NEB) 2.5 MG/3 ML AMP HHN STA (21:38)
[2019-01-09] MEDS ORDERED: NACL 0.9% 3 ML SYG IV SCH (22:00)
[2019-01-09] MEDS ORDERED: IBUPROFEN 600 MG TAB PO ONE (23:00)
[2019-01-10] VITALS (12 sets, daily range): BP systolic 105–133; BP diastolic 46–72; PULSE 63–85; RESP 18–20; Ht 172.7 cm; Wt 59.6 kg
[2019-01-10] MEDS ORDERED: NA POLYST SULFON 15 GM/60 ML BTL PR ONE (03:58)
[2019-01-10] MEDS ORDERED: DEXTROSE 50% 50 ML SYRINGE IV PRN ×2 (04:00)
[2019-01-10] MEDS ORDERED: GLUCOSE GEL 15 GRAM TUBE PO PRN ×2 (04:00)
[2019-01-10] MEDS ORDERED: GLUCAGON 1 MG INJ IM PRN (04:00)
[2019-01-10] MEDS ORDERED: GLUCOSE GEL 15 GRAM TUBE BUCCAL PRN (04:00)
[2019-01-10] MEDS: FUROSEMIDE 40 MG INJ IV SCH ×2 (07:10→17:20)
[2019-01-10] MEDS ORDERED: NA POLYST SULFON 15 GM/60 ML BTL PO ONE (07:30)
[2019-01-10] MEDS: morphine 2 MG INJ IV PRN ×3 (08:06→17:20)
[2019-01-10] MEDS: INSULIN ASPART [NOVOLOG] 3 ML PEN SC SCH ×4 (08:12→20:09)
[2019-01-10] MEDS: ENOXAPARIN 30 MG/0.3 ML SYG SC SCH (09:00)
[2019-01-10] MEDS: GUAIFENESIN/DM 5ML CUP PO PRN ×2 (10:09→16:45)
[2019-01-10] MEDS: FAMOTIDINE 20 MG INJ IV SCH (10:13)
--- NOTE | 2019-01-10 11:28 | HP ---
Date/Time of Note Date/Time of Note DATE: 01/10/19 TIME: 11:26 Assessment/Plan VTE Prophylaxis Risk score (from [facility] [place] risk: 6 SCD applied (from [facility] [place] No SCD contraindicated: other Pharmacological prophylaxis: LMWH Lines/Catheters IV [facility]atheter Type (from [facility] PICC Line Central line still needed: Yes Assessment/Plan Hospital Course 1) anasarca - IV lasix 2) renal insufficiency - monitor BUN/Cr 3) diabetes - monitor blood sugar Result Diagram: 01/10/1952701/10/19527 Results 24hrs Laboratory Tests Test 01/09/19 19:00 01/09/19 19:52 01/09/19 20:40 01/09/19 21:09 White Blood Count 4.7 #L Red Blood Count 2.39 L Hemoglobin 8.0 L Hematocrit 26.2 L Mean Corpuscular 109.6 H Volume Mean Corpuscular 33.5 H Hemoglobin Mean Corpuscular 30.5 L Hemoglobin Concent Red Cell Distribution 15.1 H Width Platelet Count 164 Mean Platelet Volume 10.3 Immature Granulocytes 0.600 H % Neutrophils % 85.6 H Lymphocytes % 6.6 L Monocytes % 7.0 Eosinophils % 0.0 Basophils % 0.2 Nucleated Red Blood 0.0 Cells % Immature Granulocytes 0.030 # Neutrophils # 4.0 Lymphocytes # 0.3 L Monocytes # 0.3 Eosinophils # 0.0 Basophils # 0.0 Nucleated Red Blood 0.0 Cells # Sodium Level 142 Potassium Level 7.0 *H Chloride Level 116 H Carbon Dioxide Level 16 L Anion Gap 10 Blood Urea Nitrogen 55 H Creatinine 3.40 H Est Glomerular 19 L Filtrat Rate mL/min Glucose Level 188 Calcium Level 9.0 Total Bilirubin 0.2 Direct Bilirubin 0.00 Indirect Bilirubin 0.2 Aspartate Amino 24 Transf (AST/SGOT) Alanine 7 L Aminotransferase (ALT /SGPT) Alkaline Phosphatase 70 Troponin I 0.018 B-Type Natriuretic 71467 H Peptide Total Protein 6.4 Albumin 3.1 L Globulin 3.30 H Albumin/Globulin 0.93 Ratio Plasma Potassium 7.2 *H Bedside Glucose 175 185 Test 01/09/19 22:00 01/09/19 22:53 01/10/19 00:18 01/10/19 05:28 Bedside Glucose 88 208 202 White Blood Count 4.0 L Red Blood Count 2.15 L Hemoglobin 7.3 L Hematocrit 23.6 L Mean Corpuscular 109.8 H Volume Mean Corpuscular 34.0 H Hemoglobin Mean Corpuscular 30.9 L Hemoglobin Concent Red Cell Distribution 14.9 H Width Platelet Count 145 Mean Platelet Volume 10.7 H Immature Granulocytes 0.500 H % Neutrophils % 76.6 Lymphocytes % 10.4 L Monocytes % 11.4 H Eosinophils % 0.3 Basophils % 0.8 Nucleated Red Blood 0.0 Cells % Immature Granulocytes 0.020 # Neutrophils # 3.0 Lymphocytes # 0.4 L Monocytes # 0.5 Eosinophils # 0.0 Basophils # 0.0 Nucleated Red Blood 0.0 Cells # Sodium Level 141 Potassium Level 6.1 *H Chloride Level 115 H Carbon Dioxide Level 17 L Anion Gap 9 Blood Urea Nitrogen 53 H Creatinine 3.42 H Est Glomerular 19 L Filtrat Rate mL/min Glucose Level 200 Hemoglobin A1c 7.1 H Calcium Level 9.2 Total Bilirubin 0.2 Direct Bilirubin 0.00 Indirect Bilirubin 0.2 Aspartate Amino 23 Transf (AST/SGOT) Alanine < 6 L Aminotransferase (ALT /SGPT) Alkaline Phosphatase 68 Total Protein 5.8 L Albumin 2.8 L Globulin 3.00 Albumin/Globulin 0.93 Ratio Test 01/10/19 08:04 Bedside Glucose 204 HPI/ROS Admit Date/Time Admit Date/Time Jan 09, 2019 at 21:14 Hx of Present Illness Patient with hypertension, diabetes, renal insufficiency, HCV infection comes in with increased edema and anasarca. Patient states that he is not on diuretics at home. PMH/Family/Social Past Medical History hepatitis C infection Medical History: diabetes, hypertension, renal disease Medications Current Medications IV Flush (NS 3 ml) 3 ml PER PROTOCOL IV ; Start 01/09/19 at 22:00 Ondansetron HCl (Zofran Inj) 4 mg Q6H PRN IV NAUSEA/VOMITING; Start 01/09/19 at 22:00 Morphine Sulfate (morphine) 2 mg Q4H PRN IV .PAIN 7-10 Last administered on 01/10/19at 08:06; Admin Dose 2 MG; Start 01/09/19 at 22:00 Famotidine (Pepcid Iv) 20 mg DAILY IV Last administered on 01/10/19at 10:13; Admin Dose 20 MG; Start 01/10/19 at 09:00 Enoxaparin Sodium (Lovenox) 30 mg DAILY SC ; Start 01/10/19 at 09:00 Furosemide (Lasix) 40 mg BID DIURETICS IV Last administered on 01/10/19at 07:10; Admin Dose 40 MG; Start 01/10/19 at 06:00 Diagnostic Test (Pha) (Accu-Chek) 1 ea 02 XX ; Start 01/11/19 at 02:00 Insulin Aspart (Novolog Insulin Pen) NOVOLOG *MILD* ALGORITHM WITH MEALS BEDTIME SC Last administered on 01/10/19at 08:12; Admin Dose 2 UNIT; Start 01/10/19 at 08:00 Miscellaneous Information 1 ea NOTE XX ; Start 01/10/19 at 04:00 Glucose (Glutose) 15 gm Q15M PRN PO DECREASED GLUCOSE; Start 01/10/19 at 04:00 Glucose (Glutose) 22.5 gm Q15M PRN PO DECREASED GLUCOSE; Start 01/10/19 at 04:00 Dextrose (D50w Syringe) 25 ml Q15M PRN IV DECREASED GLUCOSE; Start 01/10/19 at 04:00 Dextrose (D50w Syringe) 50 ml Q15M PRN IV DECREASED GLUCOSE; Start 01/10/19 at 04:00 Glucagon (Glucagen) 1 mg Q15M PRN IM DECREASED GLUCOSE; Start 01/10/19 at 04:00 Glucose (Glutose) 15 gm Q15M PRN BUCCAL DECREASED GLUCOSE; Start 01/10/19 at 04:00 Guaifenesin/ Dextromethorphan (Robitussin Dm Liquid Cup) 10 ml Q6 PRN PO COUGH Last administered on 01/10/19at 10:09; Admin Dose 10 ML; Start 01/10/19 at 10:30 Coded Allergies: magnesium (Unverified Allergy, Intermediate, 12/09/18) NUMBNESS AND HOT FUSHES Past Surgical History Past Surgical Hx: other Family History Significant Family History: diabetes, vascular disease Social History Smoking Status: Never smoker Exam/Review of Systems Vital Signs Vitals Vital Signs Date Temp Pulse Resp B/P (MAP) Pulse Ox O2 O2 Flow FiO2 Time Delivery Rate 01/10/19 64 08:01 01/10/19 97.6 18 133/56 92 07:47 (81) 01/10/19 Nasal 3.0 01:25 Cannula Exam Constitutional: well developed Head: normocephalic, atraumatic Neck: supple Respiratory: diminished breath sounds Cardiovascular: regular rate and rhythm Gastrointestinal: soft, non-tender Extremities: normal pulses ROJAS BYRD Jan 10, 2019 11:28
[2019-01-10] MEDS: ONDANSETRON 4 MG INJ IV PRN (16:45)
[2019-01-11] VITALS (13 sets, daily range): BP systolic 102–155; BP diastolic 54–85; PULSE 66–88; RESP 19–21
[2019-01-11] MEDS: ONDANSETRON 4 MG INJ IV PRN (01:01)
[2019-01-11] MEDS: ACCU-CHEK XX SCH (02:00)
[2019-01-11] MEDS: FUROSEMIDE 40 MG INJ IV SCH ×2 (05:16→17:39)
[2019-01-11] MEDS ORDERED: SOD CHLORIDE 0.9% 250 ML IV* ONE (06:10)
[2019-01-11] MEDS: morphine 2 MG INJ IV PRN (06:56)
[2019-01-11] MEDS ORDERED: SODIUM POLYSTYRENE 15 GM KIT (POWDER + SORBITOL) PO ONE (07:00)
[2019-01-11] MEDS ORDERED: NA POLYST SULFON 15 GM/60 ML BTL PR SCH (07:33)
[2019-01-11] MEDS: INSULIN ASPART [NOVOLOG] 3 ML PEN SC SCH ×4 (08:00→20:24)
[2019-01-11] MEDS: ENOXAPARIN 30 MG/0.3 ML SYG SC SCH (09:00)
[2019-01-11] MEDS: FAMOTIDINE 20 MG INJ IV SCH (09:43)
[2019-01-11] MEDS ORDERED: ACETAMINOPHEN 325 MG TAB PO ONE (10:00)
--- NOTE | 2019-01-11 15:34 | PN ---
Date/Time of Note Date/Time of Note DATE: 01/11/19 TIME: 15:30 Assessment/Plan VTE Prophylaxis Risk score (from [facility])>0 risk: 6 SCD applied (from [facility] [place]): Yes Pharmacological prophylaxis: NA/contraindicated Pharm contraindication: other Lines/Catheters IV [facility]ter Type (from [facility] PICC Line Central line still needed: Yes Assessment/Plan Hospital Course Patient is undergoing blood transfusion for hemoglobin of 6.8, patient refused p.o. Kayexalate however agrees to [place] Kayexalate for hyperkalemia. Patient's complaints of abdominal pain and lower back pain however denies shortness of breath denies chest pain. Assessment/Plan -Anemia, transfuse blood, will obtain stool for OB, continue to monitor H&H. -Severe hyperkalemia, will administer Kayexalate. Dr. Fofana is asked to see patient in nephrology consultation. -Bilateral lower extremities and scrotal edema -Right middle finger cellulitis with gangrene, resolving. Dr. Olmstead is fol lowing in infection disease consultation. -Acute on chronic renal failure. -Status post cadaveric kidney transplant in 2009. -Poorly controlled diabetes mellitus type 2, Continue Lantus and NovoLog. -Hypertension. -History of right fourth finger gangrene -History of Juan's esophagus and severe gastritis. -Chronic HCV infection -Rheumatoid arthritis -History of polysubstance and IV drug use Further recommendations based on clinical course. Plan of care discussed with Dr. Maier. Result Diagram: 01/11/19 0517 01/11/19 0517 Results 24hrs Laboratory Tests Test 01/10/19 16:51 01/10/19 20:08 01/11/19 05:17 01/11/19 08:01 Bedside Glucose 123 114 138 White Blood Count 4.5 L Red Blood Count 2.00 L Hemoglobin 6.8 *L Hematocrit 22.0 L Mean Corpuscular 110.0 H Volume Mean Corpuscular 34.0 H Hemoglobin Mean Corpuscular 30.9 L Hemoglobin Concent Red Cell 14.6 H Distribution Width Platelet Count 180 # Mean Platelet Volume 10.4 Immature 0.200 Granulocytes % Neutrophils % 80.4 H Lymphocytes % 10.5 L Monocytes % 7.4 Eosinophils % 1.1 Basophils % 0.4 Nucleated Red Blood 0.0 Cells % Immature 0.010 Granulocytes # Neutrophils # 3.6 Lymphocytes # 0.5 L Monocytes # 0.3 Eosinophils # 0.1 Basophils # 0.0 Nucleated Red Blood 0.0 Cells # Sodium Level 142 Potassium Level 6.0 H Chloride Level 113 H Carbon Dioxide Level 17 L Anion Gap 12 Blood Urea Nitrogen 51 H Creatinine 3.69 H Est Glomerular 17 L Filtrat Rate mL/min Glucose Level 154 Calcium Level 9.1 Test 01/11/19 11:57 Bedside Glucose 141 Exam/Review of Systems Exam Vitals Vital Signs Date Temp Pulse Resp B/P (MAP) Pulse Ox O2 O2 Flow FiO2 Time Delivery Rate 01/11/19 98.7 71 19 155/67 99 13:42 (96) 01/11/19 Room Air 08:10 01/10/19 3.0 01:25 Intake and Output 01/10/19 01/10/19 01/11/19 1515:00 23:00 07:00 IntakeIntake Total 200 ml 550 ml OutputOutput Total 100 ml 1180 ml BalanceBalance 100 ml -630 ml Constitutional: alert, oriented Neck: supple Respiratory: clear to auscultation Cardiovascular: regular rate and rhythm Gastrointestinal: soft, non-tender Musculoskeletal: nl extremities to inspection Extremities: edema, other (Right third fingertip wound, dry) Results Results 24hrs Laboratory Tests Test 01/10/19 16:51 01/10/19 20:08 01/11/19 05:17 01/11/19 08:01 Bedside Glucose 123 114 138 White Blood Count 4.5 L Red Blood Count 2.00 L Hemoglobin 6.8 *L Hematocrit 22.0 L Mean Corpuscular 110.0 H Volume Mean Corpuscular 34.0 H Hemoglobin Mean Corpuscular 30.9 L Hemoglobin Concent Red Cell 14.6 H Distribution Width Platelet Count 180 # Mean Platelet Volume 10.4 Immature 0.200 Granulocytes % Neutrophils % 80.4 H Lymphocytes % 10.5 L Monocytes % 7.4 Eosinophils % 1.1 Basophils % 0.4 Nucleated Red Blood 0.0 Cells % Immature 0.010 Granulocytes # Neutrophils # 3.6 Lymphocytes # 0.5 L Monocytes # 0.3 Eosinophils # 0.1 Basophils # 0.0 Nucleated Red Blood 0.0 Cells # Sodium Level 142 Potassium Level 6.0 H Chloride Level 113 H Carbon Dioxide Level 17 L Anion Gap 12 Blood Urea Nitrogen 51 H Creatinine 3.69 H Est Glomerular 17 L Filtrat Rate mL/min Glucose Level 154 Calcium Level 9.1 Test 01/11/19 11:57 Bedside Glucose 141 Medications Medication Current Medications IV Flush (NS 3 ml) 3 ml PER PROTOCOL IV ; Start 01/09/19 at 22:00 Ondansetron HCl (Zofran Inj) 4 mg Q6H PRN IV NAUSEA/VOMITING Last administered on 01/11/19at 01:01; Admin Dose 4 MG; Start 01/09/19 at 22:00 Famotidine (Pepcid Iv) 20 mg DAILY IV Last administered on 01/11/19at 09:43; Admin Dose 20 MG; Start 01/10/19 at 09:00 Furosemide (Lasix) 40 mg BID DIURETICS IV Last administered on 01/11/19at 05:16; Admin Dose 40 MG; Start 01/10/19 at 06:00 Diagnostic Test (Pha) (Accu-Chek) 1 ea 02 XX ; Start 01/11/19 at 02:00 Insulin Aspart (Novolog Insulin Pen) NOVOLOG *MILD* ALGORITHM WITH MEALS BEDTIME SC Last administered on 01/11/19at 12:02; Admin Dose 1 UNIT; Start 01/10/19 at 08:00 Miscellaneous Information 1 ea NOTE XX ; Start 01/10/19 at 04:00 Glucose (Glutose) 15 gm Q15M PRN PO DECREASED GLUCOSE; Start 01/10/19 at 04:00 Glucose (Glutose) 22.5 gm Q15M PRN PO DECREASED GLUCOSE; Start 01/10/19 at 04:00 Dextrose (D50w Syringe) 25 ml Q15M PRN IV DECREASED GLUCOSE; Start 01/10/19 at 04:00 Dextrose (D50w Syringe) 50 ml Q15M PRN IV DECREASED GLUCOSE; Start 01/10/19 at 04:00 Glucagon (Glucagen) 1 mg Q15M PRN IM DECREASED GLUCOSE; Start 01/10/19 at 04:00 Glucose (Glutose) 15 gm Q15M PRN BUCCAL DECREASED GLUCOSE; Start 01/10/19 at 04:00 Guaifenesin/ Dextromethorphan (Robitussin Dm Liquid Cup) 10 ml Q6 PRN PO COUGH Last administered on 01/10/19at 16:45; Admin Dose 10 ML; Start 3/10/19 at 10:30 Epoetin Fidencio (Epogen (Esrd)) 3,000 units MoWeFr@17 SC ; Start 01/11/19 at 17:00 Prednisone (Prednisone) 5 mg DAILY PO ; Start 01/11/19 at 15:30 Tacrolimus (Prograf) 1 mg Q12 PO ; Start 01/11/19 at 21:00 Acetaminophen/ Hydrocodone Bitart ([place] ()) 2 tab Q6H PRN PO MODERATE PAIN LEVEL 4-6; Start 01/11/19 at 15:30 Sodium Bicarbonate (Sodium Bicarbonate Tab) 650 mg BID PO ; Start 01/11/19 at 21:00 LETI RODRIGUEZ Jan 11, 2019 15:34
[2019-01-11] MEDS: HYDROCODONE/APAP (10/325) TAB PO PRN (15:52)
[2019-01-11] MEDS: predniSONE 5 MG TAB PO SCH (15:54)
[2019-01-11] MEDS: EPOETIN 3000 UNITS/1 ML INJ (ESRD) SC SCH (15:54)
--- NOTE | 2019-01-11 16:39 | CONS ---
DATE OF ADMISSION: 01/09/2019 DATE OF CONSULTATION: TYPE OF CONSULTATION: Renal. REASON FOR ADMISSION: Hyperkalemia and anasarca. 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 At that time, the patient had acute on chronic renal failure. Creatinine p eaked up to 4.30. The patient was also found to have Staphylococcus aureus bacteremia. The patient was at that time transferred to [facility] for further care. There was a probability that the patient need s renal biopsy. The patient was also seen by Dr. Noguera for hydronephrosis of the transplanted kidn ey and the patient had a Varela catheter placed. There are no records currently available; however ac cording to the patient, when he went to the [facility], he stayed in the hospital for 5 days. He never got any kidney biopsy done. Mycophenolate was stopped and Prograf was reduced to ____. Accord ing to the patient, the glipizide was also stopped and the patient was continued on Januvia. The pat roberto has been feeling weak, tired and also has been having generalized body swelling and scrotal charley a for the last 3 to 4 days. According to the patient, he has been urinating less. He also had some dyspnea on exertion and some orthopnea. On arrival to ED, vital signs showed temperature 97.8, pulse 65, respirations 18, blood pressure 127/74. The patient had labs that showed potassium of 7.0, BUN of 55, creatinine of 3.40. On last discharge, creatinine was 4.30, bicarbonate of 16, BNP of 18,700, white count of 4.7, hemoglobin 8.0, platelet count 184. The patient received medical management and was started on IV Lasix and was admitted for further management. PAST MEDICAL HISTORY: 1. CKD IV with a GFR of 15 to 16 since last visit. Creatinine was in the 3 range and it peaked up t o 4.3. 2. Hypertension. 3. Hyperlipidemia. 4. Sepsis likely secondary to Staph aureus bacteremia. 5. Right middle finger cellulitis or gangrene. 6. Right 4th toe gangrene. 7. Peripheral vascular disease. 8. History of Juan's esophagus. 9. History of chronic hepatitis C. 10. History of polysubstance use. 11. Diabetes type 2. ALLERGIES: MAGNESIUM. MEDICATIONS TAKING AT HOME: 1. Prograf ____ 2. Mycophenolate was stopped. 3. Prednisone 5. 4. Glipizide was stopped. 5. Januvia 50. 6. Clonidine 0.1. 7. Lispro. SOCIAL HISTORY: Currently denies any smoking, alcohol or any drug use. Currently lives at home by h imself. PHYSICAL EXAMINATION: VITAL SIGNS: Initially, temperature 97.8, pulse 65, respirations 18, blood pressure 127/74. GENERAL: The patient is well-developed, well-nourished male, who does not appear to in any acute dis tress. HEENT: Pupils are equal, round and reactive to light. NECK: Supple. LUNGS: Decreased breath sounds bilaterally. ABDOMEN: Soft, nontender. The patient has positive bowel sounds. No tenderness appreciated at flaquita l transplant site. EXTREMITIES: There is 1 to 2+ edema. GENITOURINARY: The patient has marked scrotal edema. LABORATORY DATA: White count 4.7, hemoglobin 8.0, platelet count 164. Potassium initially 7.01, sod ium 142, chloride 116, bicarbonate 16, BUN of 55, creatinine 3.40. On last discharge, her creatinine was 4.30. The patient received Lasix, Kayexalate, sodium bicarbonate and calcium chloride. DIAGNOSTIC DATA: EKG: Sinus bradycardia. ASSESSMENT AND PLAN: This is a 58-year-old male who presented with: 1. Severe hyperkalemia. The patient has chronic renal failure stage IV. This could be secondary to renal failure. 2. Rule out Prograf toxicity. 3. The patient also has metabolic acidosis that could contribute to that. 4. Chronic kidney disease stage IV. The patient has donor renal transplantation in 2009. The patient also has underlying severe diabetic nephropathy. 5. Non-gap metabolic acidosis likely secondary to renal failure. Rule out obstruction. 6. Anasarca likely secondary to underlying renal failure. 7. Diabetes. 8. donor renal transplantation in 2009. 9. History of Staphylococcus bacteremia off of mycophenolate. 10. Hypertension. 11. Diabetes. 12. Peripheral vascular disease with amputation. 13. History of hepatitis C. PLAN: At this period of time, the patient is admitted to telemetry. We will give the patient Kayexa late as the patient has agreed for receiving Kayexalate through [place]. The patient is on IV Lasix. We will also start the patient on sodium bicarbonate. We will start the patient on low dose of Prograf 1 mg q.12. We will also check for Prograf levels. Continue the patient on prednisone. Mycophenolat e has been on hold due to infection. Continue with IV Lasix 40 b.i.d. The patient will be on renal diet. Rest of the treatment will depend on the patient's hospitalization course. Dictated By: HARVINDER KUMAR/NAKIA Conf#: [id number] DID#: [id number] CC: ROJAS BYRD MD;*EndCC*
--- NOTE | 2019-01-11 18:35 | CONS ---
DATE OF ADMISSION: 01/09/2019 DATE OF CONSULTATION: 01/11/2019 REASON FOR CONSULTATION: Hypertension, congestive heart failure. REQUESTING PHYSICIAN: Lupe Kaplan MD. HISTORY OF PRESENT ILLNESS: Mr. Manley is a very pleasant 58-year-old male with a history cadaveri c renal transplant, right middle finger cellulitis with gangrenous changes, Juan's esophagus, hepa titis C, prior polysubstance abuse, diabetes mellitus, hypertension, end-stage renal disease on hemod ialysis, rheumatoid arthritis who had recently been admitted with gangrenous changes of his finger, v olume overload and acute-on- chronic renal failure. The patient was discharged to outpatient followu p and now represents with findings of generalized volume overload and lab abnormalities with hyperkal emia. Initially upon arrival, temperature 97.8, blood pressure 127/74, pulse 65, respiratory rate 18 , satting 100%. The patient's labs revealed white count of 4.7, hemoglobin 8.0, platelet count of 16 4. Sodium 142, potassium of 7 and then 7.2, creatinine 3.4, BUN of 55. Troponin negative. BNP of 1 8,700. The patient underwent a chest x-ray revealing mild pulmonary vascular congestion, small bilat eral pleural effusions. The patient's electrocardiogram revealed sinus bradycardia at 56, normal axi s and intervals, anteroseptal Q's. The patient subsequently admitted to the floor and, since admit t o the floor, has been treated with Kayexalate and continued on his baseline immunosuppressants, start ed on Lasix diuresis. The patient at this time denies chest pain but does have mild dyspnea on exert ion and orthopnea. PAST MEDICAL HISTORY: As above in HPI with the patient's most recent 2D echo being from 12/2018, at that time revealing an EF of 60% to 65% with trace mitral and tricuspid regurgitation and mild to mo derate aortic stenosis. MEDICATIONS CURRENTLY IN HOSPITAL: 1. Prograf. 2. Sodium bicarbonate. 3. Epogen. 4. Prednisone 5. [place]. 6. Robitussin. 7. Pepcid. 8. Lasix 40 mg IV b.i.d. 9. Insulin sliding scale. ALLERGIES: MAGNESIUM. SOCIAL HISTORY: No current tobacco, ETOH or illicit drug use but a history of polysubstance abuse. FAMILY HISTORY: No history of sudden cardiac or early CAD. REVIEW OF SYSTEMS: As above in HPI. CONSTITUTIONAL: No fevers, chills. PULMONARY: No current signs of respiratory compromise. GASTROINTESTINAL: No vomiting. GENITOURINARY: No hematuria. MUSCULOSKELETAL: Degenerative joint disease and rheumatoid arthritis. PSYCHIATRIC: No documented psych history. NEUROLOGIC: No documented history of CVA. ENDOCRINE: History of diabetes mellitus. No documented history of thyroid disease. PHYSICAL EXAMINATION: VITAL SIGNS: Temperature of 98.2, T-max of 100, blood pressure most recently 152/67, pulse 76, respi ratory rate 19, satting 98%. GENERAL: The patient is alert, awake, complaining of mild shortness of breath. NECK: JVP approximately 9 cm of water. CHEST: Fair movement throughout with mildly decreased breath sounds at the bases bilaterally. HEART: Regular rate and rhythm. Normal S1 and S2, I/ systolic murmur, nondisplaced PMI. ABDOMEN: Positive bowel sounds, soft. EXTREMITIES: No significant pitting edema at this time except for some chronic changes in the legs, may be trace lower extremity edema, somewhat difficult to evaluate his pulses at bilateral posterior tibial. LABORATORIES: Most recently from today, white count of 4.5, hemoglobin dropped to 6.8, platelet coun t of 180. Sodium of 142, potassium 6.0, creatinine 3.6, BUN of 51. IMAGING STUDIES: As above in HPI with chest x-ray revealing mild pulmonary vascular congestion, smal l bilateral pleural effusions. ECG: As above in HPI. No further electrocardiograms for my review at this time. IMPRESSION: 1. Hypertension, currently uncontrolled. 2. Congestive heart failure, diastolic by most recent echo in 12/2018, acute on chronic. 3. Abnormal electrocardiogram with anteroseptal Q's. Assess for acute coronary syndrome. 4. Chronic kidney disease, status post prior cadaveric renal transplant. 5. Rheumatoid arthritis. 6. Diabetes mellitus. 7. Prior gangrenous changes of fingertip, managed conservatively due to the patient's preference. 8. Hyperkalemia, ongoing. 9. [id number] renal failure. 10. Anemia, worsening. RECOMMENDATIONS: 1. At this time, I would maintain the patient on telemetry monitoring to follow rhythm and rates olvin sely. 2. Would continue the patient's immunosuppressants and follow kidney function closely. 3. Continue the patient's Lasix diuresis and will initiate the patient on hydralazine p.o. in order to improve overall systolic blood pressure control. 4. Will complete rule out for myocardial infarction to ensure the patient's ECG abnormalities are ch ronic nature and not due to any recent acute coronary syndrome. 5. Check fasting lipid panel for general risk stratification and initiate medication as necessary. 6. Will hold on any aspirin at this time given worsening anemia. 7. Transfuse packed RBCs with following closely. Thank you for allowing me to take part in the care of this patient. I will continue to follow along very closely with you. Further recommendations will be made as the patient progresses through his in patient hospital clinical course. Dictated By: ABDELRAHMAN DELUNA/NAKIA Conf#: [id number] DID#: [id number] CC: ROJAS BYRD MD; LUPE KAPLAN MD;*EndCC*
[2019-01-11] MEDS: NA BICARBONATE 650 MG TAB PO SCH (20:25)
[2019-01-11] MEDS: TACROLIMUS 1 MG CAP PO SCH (20:25)
[2019-01-12] VITALS (11 sets, daily range): BP systolic 129–158; BP diastolic 56–75; PULSE 68–90; RESP 18–19
[2019-01-12] MEDS: ACCU-CHEK XX SCH (01:40)
[2019-01-12] MEDS ORDERED: CALCIUM CARBONATE 1.25 GM TAB ONE (02:29)
[2019-01-12] MEDS: HYDROCODONE/APAP (10/325) TAB PO PRN ×4 (04:35→20:12)
[2019-01-12] MEDS: FUROSEMIDE 40 MG INJ IV SCH (05:31)
[2019-01-12] MEDS: FAMOTIDINE 20 MG INJ IV SCH (07:44)
[2019-01-12] MEDS: predniSONE 5 MG TAB PO SCH (07:45)
[2019-01-12] MEDS: TACROLIMUS 1 MG CAP PO SCH ×2 (07:45→20:12)
[2019-01-12] MEDS: NA BICARBONATE 650 MG TAB PO SCH ×2 (07:45→20:12)
[2019-01-12] MEDS: INSULIN ASPART [NOVOLOG] 3 ML PEN SC SCH ×6 (07:51→20:13)
--- NOTE | 2019-01-12 08:56 | CONS ---
Consult Date/Type/Reason Admit Date/Time Jan 09, 2019 at 21:14 Initial Consult Date Date/Time of Note DATE: 01/12/19 TIME: 08:55 Subjective NO acute events - H/H low - noCP now + cough ROS: No fever, no chills, no nausea, no vomiting, no diarrhea/constipation + weakness No recent weight changes No chest pain, no PND, no orthopnea - chronic SOB No dizziness, blurred vision No thirst, no heat or cold intolerance Objective Vitals Vital Signs Date Temp Pulse Resp B/P (MAP) Pulse Ox O2 O2 Flow FiO2 Time Delivery Rate 01/12/19 98.5 75 19 131/58 97 07:11 (82) 01/11/19 Room Air 08:10 01/10/19 3.0 01:25 Intake and Output 01/11/19 01/11/19 01/12/19 1414:59 22:59 06:59 IntakeIntake Total 1200 ml 700 ml OutputOutput Total 1800 ml BalanceBalance 1200 ml -1100 ml Exam General: WN/WD/NAD, AOx 3 HEENT: Unicetric/atraumatic/EOMI ( follow commands) NECK: JVD elevated, no thyromegaly Lymph: no lymphadenopathy HEART: regular with no S3, II/ systolic murmur at apex LUNGS: Coarse sounds ABD: soft, NT, ND, +BS : Intact Neuro: non focal SKIN: chronic changes EXT: trace edema Results/Medications Result Diagram: 01/11/19 0517 01/11/19 1830 Results 24 hrs Laboratory Tests Test 01/11/19 11:57 01/11/19 17:36 01/11/19 18:30 01/11/19 20:23 Bedside Glucose 141 132 174 Sodium Level 139 Potassium Level 5.5 H Chloride Level 110 Carbon Dioxide 20 L Level Anion Gap 9 Blood Urea 50 H Nitrogen Creatinine 3.62 H Est Glomerular 17 L Filtrat Rate mL/min Glucose Level 148 Calcium Level 8.8 Creatine Kinase 113 Creatine Kinase 0.7 Index Creatinine Kinase 0.81 MB (Mass) Troponin I 0.062 Test 01/12/19 00:47 01/12/19 04:44 01/12/19 07:46 01/12/19 08:53 Creatine Kinase 90 95 Creatine Kinase 0.6 0.6 Index Creatinine Kinase 0.57 0.59 MB (Mass) Troponin I 0.049 0.048 Triglycerides 166 H Level Cholesterol Level 143 LDL Cholesterol, 65 Calculated HDL Cholesterol 45 Cholesterol/HDL 3.1 Ratio Bedside Glucose 232 H Lab Scanned BLOOD TRANSFUSIO Report N Home Meds Reported Medications Sitagliptin* (Januvia*) 50 Mg Tablet, 50 MG PO DAILY, #30 TAB 12/09/18 Tacrolimus* (Tacrolimus*) 1 Mg Capsule, 3 MG PO QAM, CAP 12/09/18 Tacrolimus* (Tacrolimus*) 1 Mg Capsule, 2 MG PO QHS, CAP 12/09/18 Mycophenolate Sodium* (Mycophenolic Acid*) 180 Mg Tablet.dr, 540 MG PO Q12, TAB 12/09/18 Prednisone* (Prednisone*) 5 Mg Tab, 5 MG PO DAILY, TAB 12/09/18 Glipizide* (Glipizide*) 5 Mg Tablet, 5 MG PO AC BREAKFAST DINNER, TAB 12/09/18 Clonidine Hcl* (Clonidine Hcl*) 0.1 Mg Tab, 0.1 MG PO DAILY, TAB 12/09/18 Insulin Lispro (Humalog) 100 Unit/1 Ml Cartridge, 2-10 UNITS SQ SLIDING SCALE, EA INSURANECE NOT COVERED THIS INSULIN 09/23/18 Medications Current Medications IV Flush (NS 3 ml) 3 ml PER PROTOCOL IV ; Start 01/09/19 at 22:00 Ondansetron HCl (Zofran Inj) 4 mg Q6H PRN IV NAUSEA/VOMITING Last administered on 01/11/19at 01:01; Admin Dose 4 MG; Start 01/09/19 at 22:00 Famotidine (Pepcid Iv) 20 mg DAILY IV Last administered on 01/12/19at 07:44; Admin Dose 20 MG; Start 01/10/19 at 09:00 Furosemide (Lasix) 40 mg BID DIURETICS IV Last administered on 01/12/19at 05:31; Admin Dose 40 MG; Start 01/10/19 at 06:00 Diagnostic Test (Pha) (Accu-Chek) 1 ea 02 XX ; Start 01/11/19 at 02:00 Insulin Aspart (Novolog Insulin Pen) NOVOLOG *MILD* ALGORITHM WITH MEALS BEDTIME SC Last administered on 01/12/19at 07:51; Admin Dose 3 UNIT; Start 01/10/19 at 08:00 Miscellaneous Information 1 ea NOTE XX ; Start 01/10/19 at 04:00 Glucose (Glutose) 15 gm Q15M PRN PO DECREASED GLUCOSE; Start 01/10/19 at 04:00 Glucose (Glutose) 22.5 gm Q15M PRN PO DECREASED GLUCOSE; Start 01/10/19 at 04:00 Dextrose (D50w Syringe) 25 ml Q15M PRN IV DECREASED GLUCOSE; Start 01/10/19 at 04:00 Dextrose (D50w Syringe) 50 ml Q15M PRN IV DECREASED GLUCOSE; Start 01/10/19 at 04:00 Glucagon (Glucagen) 1 mg Q15M PRN IM DECREASED GLUCOSE; Start 01/10/19 at 04:00 Glucose (Glutose) 15 gm Q15M PRN BUCCAL DECREASED GLUCOSE; Start 01/10/19 at 04:00 Guaifenesin/ Dextromethorphan (Robitussin Dm Liquid Cup) 10 ml Q6 PRN PO COUGH Last administered on 01/10/19at 16:45; Admin Dose 10 ML; Start 01/10/19 at 10:30 Epoetin Fidencio (Epogen (Esrd)) 3,000 units MoWeFr@17 SC ; Start 01/11/19 at 17:00 Prednisone (Prednisone) 5 mg DAILY PO Last administered on 01/12/19 07:45; Admin Dose 5 MG; Start 01/11/19 at 15:30 Tacrolimus (Prograf) 1 mg Q12 PO Last administered on 01/12/19 07:45; Admin Dose 1 MG; Start 01/11/19 at 21:00 Acetaminophen/ Hydrocodone Bitart ([place] (10325)) 2 tab Q6H PRN PO MODERATE PAIN LEVEL 4-6 Last administered on 01/12/19at 04:35; Admin Dose 2 TAB; Start 01/11/19 at 15:30 Sodium Bicarbonate (Sodium Bicarbonate Tab) 650 mg BID PO Last administered on 01/12/19 07:45; Admin Dose 650 MG; Start 01/11/19 at 21:00 Hydralazine HCl (Apresoline) 25 mg Q12 PO Last administered on 01/12/19 07:45; Admin Dose 25 MG; Start 01/11/19 at 21:00 Assessment/Plan Hospital Course (Demo Recall) 1. Hypertension-labile, stable now - pt feels tired - better now 2. Gangrenous changes of the patient's finger - defer to surgical team as prior 3. Renal failure on HD - Rx per renal team. Rx per primary team. 4. Rheumatoid arthritis - rheum to follow. 5. Diabetes mellitus - on meds, keep euvolemic. 6. History of Juan's esophagus. 7. Dyslipidemia. 8. Bacteremia-S aureus - Rx with anti-Bx now - isolation 9. Anemia - H/H low, blood RX as needed. RAQUEL BAIRES MD Jan 12, 2019 08:56
--- NOTE | 2019-01-12 11:25 | PN ---
Date/Time of Note Date/Time of Note DATE: 01/12/19 TIME: 11:22 Assessment/Plan VTE Prophylaxis Risk score (from Ns)>0 risk: 4 SCD applied (from Ns): Yes Pharmacological prophylaxis: NA/contraindicated Pharm contraindication: other (hematoma?) Lines/Catheters IV Catheter Type (from Nrs): PICC Line Central line still needed: Yes Assessment/Plan Hospital Course Patient complains of right back pain, bruising noted patient was blood loss will obtain CT of the abdomen and pelvis. Patient is denies any nausea and vomiting. Assessment/Plan -Anemia, status post blood transfusion, f/up on stool for OB, continue to monitor H&H. -Severe hyperkalemia, s/p Kayexalate. Dr. Fofana is following in nephrology consultation. -Bilateral lower extremities and scrotal edema -Right middle finger cellulitis with gangrene, resolving. Dr. Olmstead is following in infection disease consultation. -Chronic kidney disease stage IV status post cadaveric kidney transplant in 2009. -Poorly controlled diabetes mellitus type 2 with diabetic neuropathy, Continue Lantus and NovoLog. -Atherosclerosis -Hypertension. -History of right fourth finger gangrene -History of Juan's esophagus and severe gastritis. -Chronic HCV infection -Rheumatoid arthritis -History of polysubstance and IV drug use Further recommendations based on clinical course. Plan of care discussed with Dr. Maier. Result Diagram: 01/12/19 1104 01/12/19 1026 Results 24hrs Laboratory Tests Test 01/11/19 11:57 01/11/19 17:36 01/11/19 18:30 01/11/19 20:23 Bedside Glucose 141 132 174 Sodium Level 139 Potassium Level 5.5 H Chloride Level 110 Carbon Dioxide 20 L Level Anion Gap 9 Blood Urea 50 H Nitrogen Creatinine 3.62 H Est Glomerular 17 L Filtrat Rate mL/min Glucose Level 148 Calcium Level 8.8 Creatine Kinase 113 Creatine Kinase 0.7 Index Creatinine Kinase 0.81 MB (Mass) Troponin I 0.062 Test 01/12/19 00:47 01/12/19 04:44 01/12/19 07:46 01/12/19 08:53 Creatine Kinase 90 95 Creatine Kinase 0.6 0.6 Index Creatinine Kinase 0.57 0.59 MB (Mass) Troponin I 0.049 0.048 Triglycerides 166 H Level Cholesterol Level 143 LDL Cholesterol, 65 Calculated HDL Cholesterol 45 Cholesterol/HDL 3.1 Ratio Bedside Glucose 232 H Lab Scanned BLOOD TRANSFUSIO Report N Test 01/12/19 10:26 01/12/19 11:04 White Blood Count 4.9 Red Blood Count 2.77 #L Hemoglobin 9.1 #L Hematocrit 28.0 #L Mean Corpuscular 101.1 H Volume Mean Corpuscular 32.9 Hemoglobin Mean Corpuscular 32.5 Hemoglobin Concen t Red Cell 16.3 H Distribution Width Platelet Count 186 177 Mean Platelet 10.3 Volume Immature 0.400 Granulocytes % Neutrophils % 82.3 H Lymphocytes % 6.9 L Monocytes % 9.6 Eosinophils % 0.4 Basophils % 0.4 Nucleated Red 0.0 Blood Cells % Immature 0.020 Granulocytes # Neutrophils # 4.1 Lymphocytes # 0.3 L Monocytes # 0.5 Eosinophils # 0.0 Basophils # 0.0 Nucleated Red 0.0 Blood Cells # Sodium Level 140 Potassium Level 5.0 Chloride Level 107 Carbon Dioxide 22 Level Anion Gap 11 Blood Urea 51 H Nitrogen Creatinine 3.75 H Est Glomerular 17 L Filtrat Rate mL/min Glucose Level 127 Calcium Level 9.0 Prothrombin Time Pending Prothrombin Time Pending Ratio INR International Pending Normalized Ratio Activated Pending Partial Thrombopl ast Time Thrombin Time Pending Exam/Review of Systems Exam Vitals Vital Signs Date Temp Pulse Resp B/P (MAP) Pulse Ox O2 O2 Flow FiO2 Time Delivery Rate 01/12/19 90 08:00 01/12/19 98.5 19 131/58 97 07:11 (82) 01/11/19 Room Air 08:10 01/10/19 3.0 01:25 Intake and Output 01/11/19 01/11/19 01/12/19 1515:00 23:00 07:00 IntakeIntake Total 1200 ml 700 ml OutputOutput Total 1800 ml BalanceBalance 1200 ml -1100 ml Exam Constitutional: alert, oriented Neck: supple Respiratory: clear to auscultation Cardiovascular: regular rate and rhythm Gastrointestinal: soft, non-tender Musculoskeletal: nl extremities to inspection Extremities: edema, other (Right third fingertip wound, dry) Results Results 24hrs Laboratory Tests Test 01/11/19 11:57 01/11/19 17:36 01/11/19 18:30 01/11/19 20:23 Bedside Glucose 141 132 174 Sodium Level 139 Potassium Level 5.5 H Chloride Level 110 Carbon Dioxide 20 L Level Anion Gap 9 Blood Urea 50 H Nitrogen Creatinine 3.62 H Est Glomerular 17 L Filtrat Rate mL/min Glucose Level 148 Calcium Level 8.8 Creatine Kinase 113 Creatine Kinase 0.7 Index Creatinine Kinase 0.81 MB (Mass) Troponin I 0.062 Test 01/12/19 00:47 01/12/19 04:44 01/12/19 07:46 01/12/19 08:53 Creatine Kinase 90 95 Creatine Kinase 0.6 0.6 Index Creatinine Kinase 0.57 0.59 MB (Mass) Troponin I 0.049 0.048 Triglycerides 166 H Level Cholesterol Level 143 LDL Cholesterol, 65 Calculated HDL Cholesterol 45 Cholesterol/HDL 3.1 Ratio Bedside Glucose 232 H Lab Scanned BLOOD TRANSFUSIO Report N Test 01/12/19 10:26 01/12/19 11:04 White Blood Count 4.9 Red Blood Count 2.77 #L Hemoglobin 9.1 #L Hematocrit 28.0 #L Mean Corpuscular 101.1 H Volume Mean Corpuscular 32.9 Hemoglobin Mean Corpuscular 32.5 Hemoglobin Concen t Red Cell 16.3 H Distribution Width Platelet Count 186 177 Mean Platelet 10.3 Volume Immature 0.400 Granulocytes % Neutrophils % 82.3 H Lymphocytes % 6.9 L Monocytes % 9.6 Eosinophils % 0.4 Basophils % 0.4 Nucleated Red 0.0 Blood Cells % Immature 0.020 Granulocytes # Neutrophils # 4.1 Lymphocytes # 0.3 L Monocytes # 0.5 Eosinophils # 0.0 Basophils # 0.0 Nucleated Red 0.0 Blood Cells # Sodium Level 140 Potassium Level 5.0 Chloride Level 107 Carbon Dioxide 22 Level Anion Gap 11 Blood Urea 51 H Nitrogen Creatinine 3.75 H Est Glomerular 17 L Filtrat Rate mL/min Glucose Level 127 Calcium Level 9.0 Prothrombin Time Pending Prothrombin Time Pending Ratio INR International Pending Normalized Ratio Activated Pending Partial Thrombopl ast Time Thrombin Time Pending Medications Medication Current Medications IV Flush (NS 3 ml) 3 ml PER PROTOCOL IV ; Start 01/09/19 at 22:00 Ondansetron HCl (Zofran Inj) 4 mg Q6H PRN IV NAUSEA/VOMITING Last administered on 01/11/19at 01:01; Admin Dose 4 MG; Start 01/09/19 at 22:00 Famotidine (Pepcid Iv) 20 mg DAILY IV Last administered on 01/12/19at 07:44; Admin Dose 20 MG; Start 01/10/19 at 09:00 Furosemide (Lasix) 40 mg BID DIURETICS IV Last administered on 01/12/19at 05:31; Admin Dose 40 MG; Start 01/10/19 at 06:00 Diagnostic Test (Pha) (Accu-Chek) 1 ea 02 XX ; Start 01/11/19 at 02:00 Miscellaneous Information 1 ea NOTE XX ; Start 01/10/19 at 04:00 Glucose (Glutose) 15 gm Q15M PRN PO DECREASED GLUCOSE; Start 01/10/19 at 04:00 Glucose (Glutose) 22.5 gm Q15M PRN PO DECREASED GLUCOSE; Start 01/10/19 at 04:00 Dextrose (D50w Syringe) 25 ml Q15M PRN IV DECREASED GLUCOSE; Start 01/10/19 at 04:00 Dextrose (D50w Syringe) 50 ml Q15M PRN IV DECREASED GLUCOSE; Start 01/10/19 at 04:00 Glucagon (Glucagen) 1 mg Q15M PRN IM DECREASED GLUCOSE; Start 01/10/19 at 04:00 Glucose (Glutose) 15 gm Q15M PRN BUCCAL DECREASED GLUCOSE; Start 01/10/19 at 04:00 Guaifenesin/ Dextromethorphan (Robitussin Dm Liquid Cup) 10 ml Q6 PRN PO COUGH Last administered on 01/10/19at 16:45; Admin Dose 10 ML; Start 01/10/19 at 10:30 Epoetin Fidencio (Epogen (Esrd)) 3,000 units MoWeFr@17 SC ; Start 01/11/19 at 17:00 Prednisone (Prednisone) 5 mg DAILY PO Last administered on 01/12/19at 07:45; Admin Dose 5 MG; Start 01/11/19 at 15:30 Tacrolimus (Prograf) 1 mg Q12 PO Last administered on 01/12/19at 07:45; Admin Dose 1 MG; Start 01/11/19 at 21:00 Acetaminophen/ Hydrocodone Bitart ([place] (10/325)) 2 tab Q6H PRN PO MODERATE PAIN LEVEL 4-6 Last administered on 01/12/19at 04:35; Admin Dose 2 TAB; Start 01/11/19 at 15:30 Sodium Bicarbonate (Sodium Bicarbonate Tab) 650 mg BID PO Last administered on 01/12/19at 07:45; Admin Dose 650 MG; Start 01/11/19 at 21:00 Hydralazine HCl (Apresoline) 25 mg Q12 PO Last administered on 01/12/19at 07:45; Admin Dose 25 MG; Start 01/11/19 at 21:00 Insulin Glargine (Lantus) 6 units DAILY@2000 SC ; Start 01/12/19 at 20:00 Insulin Aspart (Novolog Insulin Pen) 3 unit WITH MEALS SC ; Start 01/12/19 at 12:00 Insulin Aspart (Novolog Insulin Pen) NOVOLOG *MILD* ALGORITHM WITH MEALS BEDTIME SC ; Start 01/12/19 at 12:00 LETI RODRIGUEZ Jan 12, 2019 11:25
--- NOTE | 2019-01-12 11:37 | CONS ---
Assessment/Plan Assessment/Plan Assessment/Plan (Daily) his is a 58-year-old male who presented with: 1. Severe hyperkalemia. The patient has chronic renal failure stage IV. This could be secondary to renal failure. Rule out Prograf toxicity. The patient also has metabolic acidosis that could contribute to that. 4. Chronic kidney disease stage IV. The patient has donor renal transplantation in 2009. The patient also has underlying severe diabetic nephropathy. Creatinine has been 3.5-3.6 range since last discharge 5. Non-gap metabolic acidosis likely secondary to renal failure. Rule out obstruction. Ultrasound positive for hydro-nephrosis in the right kidney which is unchanged from the prior ultrasound 6. Anasarca likely secondary to underlying renal failure/ Proteinuria 7. Diabetes. 8. donor renal transplantation in 2009. 9. History of Staphylococcus bacteremia off of mycophenolate. 10. Hypertension. 11. Diabetes. 12. Peripheral vascular disease with amputation. 13. History of hepatitis C. plan -Agree with checking coags -Decrease Lasix light due to slightly uptrending creatinine -Fluid restriction -cw with sodium bicarb -increased Prograf to 2/.2, continue with prednisone 5 -Hold mycophenolate until the infection is cleared -monitor BMP -Strict i and O Consultation Date/Type/Reason Admit Date/Time Jan 09, 2019 at 21:14 Initial Consult Date Date/Time of Note DATE: 01/12/19 TIME: 11:33 24 HR Interval Summary Free Text/Dictation Feels better today. U Output 1900 cc Potassium is improved today Exam/Review of Systems Exam Vitals Vital Signs Date Temp Pulse Resp B/P (MAP) Pulse Ox O2 O2 Flow FiO2 Time Delivery Rate 01/12/19 90 08:00 01/12/19 98.5 19 131/58 97 07:11 (82) 01/11/19 Room Air 08:10 01/10/19 3.0 01:25 Intake and Output 01/11/19 01/11/19 01/12/19 1515:00 23:00 07:00 IntakeIntake Total 1200 ml 700 ml OutputOutput Total 1800 ml BalanceBalance 1200 ml -1100 ml Exam GENERAL: The patient is well-developed, well-nourished male, who does not appear to in any acute distress. HEENT: Pupils are equal, round and reactive to light. NECK: Supple. LUNGS: Decreased breath sounds bilaterally. ABDOMEN: Soft, nontender. The patient has positive bowel sounds. No tenderness appreciated at renal transplant site. EXTREMITIES: There is 1 to 2+ edema. Improved GENITOURINARY: The patient has marked scrotal edema. Bruising noted on the right flank Results Result Diagram: 01/12/19 1104 01/12/19 1026 Results 24hrs Laboratory Tests Test 01/11/19 11:57 01/11/19 17:36 01/11/19 18:30 01/11/19 20:23 Bedside Glucose 141 132 174 Sodium Level 139 Potassium Level 5.5 H Chloride Level 110 Carbon Dioxide 20 L Level Anion Gap 9 Blood Urea 50 H Nitrogen Creatinine 3.62 H Est Glomerular 17 L Filtrat Rate mL/min Glucose Level 148 Calcium Level 8.8 Creatine Kinase 113 Creatine Kinase 0.7 Index Creatinine Kinase 0.81 MB (Mass) Troponin I 0.062 Test 01/12/19 00:47 01/12/19 04:44 01/12/19 07:46 01/12/19 08:53 Creatine Kinase 90 95 Creatine Kinase 0.6 0.6 Index Creatinine Kinase 0.57 0.59 MB (Mass) Troponin I 0.049 0.048 Triglycerides 166 H Level Cholesterol Level 143 LDL Cholesterol, 65 Calculated HDL Cholesterol 45 Cholesterol/HDL 3.1 Ratio Bedside Glucose 232 H Lab Scanned BLOOD TRANSFUSIO Report N Test 01/12/19 10:26 01/12/19 11:04 White Blood Count 4.9 Red Blood Count 2.77 #L Hemoglobin 9.1 #L Hematocrit 28.0 #L Mean Corpuscular 101.1 H Volume Mean Corpuscular 32.9 Hemoglobin Mean Corpuscular 32.5 Hemoglobin Concen t Red Cell 16.3 H Distribution Width Platelet Count 186 177 Mean Platelet 10.3 Volume Immature 0.400 Granulocytes % Neutrophils % 82.3 H Lymphocytes % 6.9 L Monocytes % 9.6 Eosinophils % 0.4 Basophils % 0.4 Nucleated Red 0.0 Blood Cells % Immature 0.020 Granulocytes # Neutrophils # 4.1 Lymphocytes # 0.3 L Monocytes # 0.5 Eosinophils # 0.0 Basophils # 0.0 Nucleated Red 0.0 Blood Cells # Sodium Level 140 Potassium Level 5.0 Chloride Level 107 Carbon Dioxide 22 Level Anion Gap 11 Blood Urea 51 H Nitrogen Creatinine 3.75 H Est Glomerular 17 L Filtrat Rate mL/min Glucose Level 127 Calcium Level 9.0 Prothrombin Time Pending Prothrombin Time Pending Ratio INR International Pending Normalized Ratio Activated Pending Partial Thrombopl ast Time Thrombin Time Pending Medications Medication Current Medications IV Flush (NS 3 ml) 3 ml PER PROTOCOL IV ; Start 01/09/19 at 22:00 Ondansetron HCl (Zofran Inj) 4 mg Q6H PRN IV NAUSEA/VOMITING Last administered on 01/11/19at 01:01; Admin Dose 4 MG; Start 01/09/19 at 22:00 Famotidine (Pepcid Iv) 20 mg DAILY IV Last administered on 01/12/19at 07:44; Admin Dose 20 MG; Start 01/10/19 at 09:00 Furosemide (Lasix) 40 mg BID DIURETICS IV Last administered on 01/12/19at 05:31; Admin Dose 40 MG; Start 01/10/19 at 06:00 Diagnostic Test (Pha) (Accu-Chek) 1 ea 02 XX ; Start 01/11/19 at 02:00 Miscellaneous Information 1 ea NOTE XX ; Start 01/10/19 at 04:00 Glucose (Glutose) 15 gm Q15M PRN PO DECREASED GLUCOSE; Start 01/10/19 at 04:00 Glucose (Glutose) 22.5 gm Q15M PRN PO DECREASED GLUCOSE; Start 01/10/19 at 04:00 Dextrose (D50w Syringe) 25 ml Q15M PRN IV DECREASED GLUCOSE; Start 01/10/19 at 04:00 Dextrose (D50w Syringe) 50 ml Q15M PRN IV DECREASED GLUCOSE; Start 01/10/19 at 04:00 Glucagon (Glucagen) 1 mg Q15M PRN IM DECREASED GLUCOSE; Start 01/10/19 at 04:00 Glucose (Glutose) 15 gm Q15M PRN BUCCAL DECREASED GLUCOSE; Start 01/10/19 at 04:00 Guaifenesin/ Dextromethorphan (Robitussin Dm Liquid Cup) 10 ml Q6 PRN PO COUGH Last administered on 01/10/19at 16:45; Admin Dose 10 ML; Start 01/10/19 at 10:30 Epoetin Fidencio (Epogen (Esrd)) 3,000 units MoWeFr@17 SC ; Start 01/11/19 at 17:00 Prednisone (Prednisone) 5 mg DAILY PO Last administered on 01/12/19 07:45; Admin Dose 5 MG; Start 01/11/19 at 15:30 Tacrolimus (Prograf) 1 mg Q12 PO Last administered on 01/12/19 07:45; Admin Dose 1 MG; Start 01/11/19 at 21:00 Acetaminophen/ Hydrocodone Bitart ([place] (10/325)) 2 tab Q6H PRN PO MODERATE PAIN LEVEL 4-6 Last administered on 01/12/19at 04:35; Admin Dose 2 TAB; Start 01/11/19 at 15:30 Sodium Bicarbonate (Sodium Bicarbonate Tab) 650 mg BID PO Last administered on 01/12/19 07:45; Admin Dose 650 MG; Start 01/11/19 at 21:00 Hydralazine HCl (Apresoline) 25 mg Q12 PO Last administered on 01/12/19 07:45; Admin Dose 25 MG; Start 01/11/19 at 21:00 Insulin Glargine (Lantus) 6 units DAILY@2000 SC ; Start 01/12/19 at 20:00 Insulin Aspart (Novolog Insulin Pen) 3 unit WITH MEALS SC ; Start 01/12/19 at 12:00 Insulin Aspart (Novolog Insulin Pen) NOVOLOG *MILD* ALGORITHM WITH MEALS BEDTIME SC ; Start 01/12/19 at 12:00 Linagliptin (Tradjenta) 5 mg DAILY PO ; Start 01/12/19 at 11:30 Escitalopram Oxalate (Lexapro) 10 mg DAILY PO ; Start 01/12/19 at 11:30 HARVINDER BLOOD MD Jan 12, 2019 11:37
[2019-01-12] MEDS: LINAGLIPTIN 5 MG TABLET PO SCH (12:04)
[2019-01-12] MEDS: ESCITALOPRAM 10 MG TAB PO SCH (12:04)
--- NOTE | 2019-01-12 12:27 | CONS ---
Assessment/Plan Assessment/Plan Hospital Course (Demo Recall) kindly asked to consult. seeing patient now. full note to follow shortly. Consultation Date/Type/Reason Admit Date/Time Jan 09, 2019 at 21:14 Date/Time of Note DATE: 01/12/19 TIME: 12:26 Past Medical History Medical History: diabetes, hypertension, renal disease Home Meds Reported Medications Sitagliptin* (Januvia*) 50 Mg Tablet, 50 MG PO DAILY, #30 TAB 12/09/18 Tacrolimus* (Tacrolimus*) 1 Mg Capsule, 3 MG PO QAM, CAP 12/09/18 Tacrolimus* (Tacrolimus*) 1 Mg Capsule, 2 MG PO QHS, CAP 12/09/18 Mycophenolate Sodium* (Mycophenolic Acid*) 180 Mg Tablet.dr, 540 MG PO Q12, TAB 12/09/18 Prednisone* (Prednisone*) 5 Mg Tab, 5 MG PO DAILY, TAB 12/09/18 Glipizide* (Glipizide*) 5 Mg Tablet, 5 MG PO AC BREAKFAST DINNER, TAB 12/09/18 Clonidine Hcl* (Clonidine Hcl*) 0.1 Mg Tab, 0.1 MG PO DAILY, TAB 12/09/18 Insulin Lispro (Humalog) 100 Unit/1 Ml Cartridge, 2-10 UNITS SQ SLIDING SCALE, EA INSURANECE NOT COVERED THIS INSULIN 09/23/18 Medications Current Medications IV Flush (NS 3 ml) 3 ml PER PROTOCOL IV ; Start 01/09/19 at 22:00 Ondansetron HCl (Zofran Inj) 4 mg Q6H PRN IV NAUSEA/VOMITING Last administered on 01/11/19at 01:01; Admin Dose 4 MG; Start 01/09/19 at 22:00 Famotidine (Pepcid Iv) 20 mg DAILY IV Last administered on 01/12/19at 07:44; Admin Dose 20 MG; Start 01/10/19 at 09:00 Diagnostic Test (Pha) (Accu-Chek) 1 ea 02 XX ; Start 01/11/19 at 02:00 Miscellaneous Information 1 ea NOTE XX ; Start 01/10/19 at 04:00 Glucose (Glutose) 15 gm Q15M PRN PO DECREASED GLUCOSE; Start 01/10/19 at 04:00 Glucose (Glutose) 22.5 gm Q15M PRN PO DECREASED GLUCOSE; Start 01/10/19 at 04:00 Dextrose (D50w Syringe) 25 ml Q15M PRN IV DECREASED GLUCOSE; Start 01/10/19 at 04:00 Dextrose (D50w Syringe) 50 ml Q15M PRN IV DECREASED GLUCOSE; Start 01/10/19 at 04:00 Glucagon (Glucagen) 1 mg Q15M PRN IM DECREASED GLUCOSE; Start 01/10/19 at 04:00 Glucose (Glutose) 15 gm Q15M PRN BUCCAL DECREASED GLUCOSE; Start 01/10/19 at 04:00 Guaifenesin/ Dextromethorphan (Robitussin Dm Liquid Cup) 10 ml Q6 PRN PO COUGH Last administered on 01/10/19at 16:45; Admin Dose 10 ML; Start 01/10/19 at 10:30 Epoetin Fidencio (Epogen (Esrd)) 3,000 units MoWeFr@17 SC ; Start 01/11/19 at 17:00 Prednisone (Prednisone) 5 mg DAILY PO Last administered on 01/12/19at 07:45; Admin Dose 5 MG; Start 01/11/19 at 15:30 Acetaminophen/ Hydrocodone Bitart ([place] ()) 2 tab Q6H PRN PO MODERATE PAIN LEVEL 4-6 Last administered on 01/12/19at 12:04; Admin Dose 2 TAB; Start 01/11/19 at 15:30 Sodium Bicarbonate (Sodium Bicarbonate Tab) 650 mg BID PO Last administered on 01/12/19at 07:45; Admin Dose 650 MG; Start 01/11/19 at 21:00 Hydralazine HCl (Apresoline) 25 mg Q12 PO Last administered on 01/12/19at 07:45; Admin Dose 25 MG; Start 01/11/19 at 21:00 Insulin Glargine (Lantus) 6 units DAILY@2000 SC ; Start 01/12/19 at 20:00 Insulin Aspart (Novolog Insulin Pen) 3 unit WITH MEALS SC Last administered on 01/12/19at 12:11; Admin Dose 3 UNIT; Start 01/12/19 at 12:00 Insulin Aspart (Novolog Insulin Pen) NOVOLOG *MILD* ALGORITHM WITH MEALS BEDTIME SC Last administered on 01/12/19at 12:11; Admin Dose 2 UNIT; Start 01/12/19 at 12:00 Linagliptin (Tradjenta) 5 mg DAILY PO Last administered on 01/12/19at 12:04; Admin Dose 5 MG; Start 01/12/19 at 11:30 Escitalopram Oxalate (Lexapro) 10 mg DAILY PO Last administered on 01/12/19at 12:04; Admin Dose 10 MG; Start 01/12/19 at 11:30 Furosemide (Lasix) 40 mg DAILY IV ; Start 01/13/19 at 09:00 Tacrolimus (Prograf) 2 mg Q12 PO ; Start 01/12/19 at 21:00 Allergies: Coded Allergies: magnesium (Unverified Allergy, Intermediate, 12/09/18) NUMBNESS AND HOT FUSHES Past Surgical History Past Surgical Hx: other Social History Smoking Status: Never smoker Exam/Review of Systems Exam Vitals Vital Signs Date Temp Pulse Resp B/P (MAP) Pulse Ox O2 O2 Flow FiO2 Time Delivery Rate 01/12/19 98.4 75 19 137/56 97 11:35 (83) 01/11/19 Room Air 08:10 01/10/19 3.0 01:25 Intake and Output 01/11/19 01/11/19 01/12/19 1515:00 23:00 07:00 IntakeIntake Total 1200 ml 700 ml OutputOutput Total 1800 ml BalanceBalance 1200 ml -1100 ml Results Result Diagram: 01/12/19 1104 01/12/19 1026 Results 24hrs Laboratory Tests Test 01/11/19 17:36 01/11/19 18:30 01/11/19 20:23 01/12/19 00:47 Bedside Glucose 132 174 Sodium Level 139 Potassium Level 5.5 H Chloride Level 110 Carbon Dioxide 20 L Level Anion Gap 9 Blood Urea 50 H Nitrogen Creatinine 3.62 H Est Glomerular 17 L Filtrat Rate mL/min Glucose Level 148 Calcium Level 8.8 Creatine Kinase 113 90 Creatine Kinase 0.7 0.6 Index Creatinine Kinase 0.81 0.57 MB (Mass) Troponin I 0.062 0.049 Test 01/12/19 04:44 01/12/19 07:46 01/12/19 08:53 01/12/19 10:26 Creatine Kinase 95 Creatine Kinase 0.6 Index Creatinine Kinase 0.59 MB (Mass) Troponin I 0.048 Triglycerides 166 H Level Cholesterol Level 143 LDL Cholesterol, 65 Calculated HDL Cholesterol 45 Cholesterol/HDL 3.1 Ratio Bedside Glucose 232 H Lab Scanned BLOOD TRANSFUSIO Report N White Blood Count 4.9 Red Blood Count 2.77 #L Hemoglobin 9.1 #L Hematocrit 28.0 #L Mean Corpuscular 101.1 H Volume Mean Corpuscular 32.9 Hemoglobin Mean Corpuscular 32.5 Hemoglobin Concen t Red Cell 16.3 H Distribution Width Platelet Count 186 Mean Platelet 10.3 Volume Immature 0.400 Granulocytes % Neutrophils % 82.3 H Lymphocytes % 6.9 L Monocytes % 9.6 Eosinophils % 0.4 Basophils % 0.4 Nucleated Red 0.0 Blood Cells % Immature 0.020 Granulocytes # Neutrophils # 4.1 Lymphocytes # 0.3 L Monocytes # 0.5 Eosinophils # 0.0 Basophils # 0.0 Nucleated Red 0.0 Blood Cells # Sodium Level 140 Potassium Level 5.0 Chloride Level 107 Carbon Dioxide 22 Level Anion Gap 11 Blood Urea 51 H Nitrogen Creatinine 3.75 H Est Glomerular 17 L Filtrat Rate mL/min Glucose Level 127 Calcium Level 9.0 Test 01/12/19 10:33 01/12/19 11:04 01/12/19 12:05 Hemoglobin A1c 6.7 H Platelet Count 177 Prothrombin Time 13.9 Prothrombin Time 1.1 Ratio INR International 1.06 Normalized Ratio Activated 28.6 Partial Thrombopl ast Time Thrombin Time 14.8 Bedside Glucose 199 Medications Medication Current Medications IV Flush (NS 3 ml) 3 ml PER PROTOCOL IV ; Start 01/09/19 at 22:00 Ondansetron HCl (Zofran Inj) 4 mg Q6H PRN IV NAUSEA/VOMITING Last administered on 01/11/19at 01:01; Admin Dose 4 MG; Start 01/09/19 at 22:00 Famotidine (Pepcid Iv) 20 mg DAILY IV Last administered on 01/12/19at 07:44; Admin Dose 20 MG; Start 01/10/19 at 09:00 Diagnostic Test (Pha) (Accu-Chek) 1 ea 02 XX ; Start 01/11/19 at 02:00 Miscellaneous Information 1 ea NOTE XX ; Start 01/10/19 at 04:00 Glucose (Glutose) 15 gm Q15M PRN PO DECREASED GLUCOSE; Start 01/10/19 at 04:00 Glucose (Glutose) 22.5 gm Q15M PRN PO DECREASED GLUCOSE; Start 01/10/19 at 04:00 Dextrose (D50w Syringe) 25 ml Q15M PRN IV DECREASED GLUCOSE; Start 01/10/19 at 04:00 Dextrose (D50w Syringe) 50 ml Q15M PRN IV DECREASED GLUCOSE; Start 01/10/19 at 04:00 Glucagon (Glucagen) 1 mg Q15M PRN IM DECREASED GLUCOSE; Start 01/10/19 at 04:00 Glucose (Glutose) 15 gm Q15M PRN BUCCAL DECREASED GLUCOSE; Start 01/10/19 at 04:00 Guaifenesin/ Dextromethorphan (Robitussin Dm Liquid Cup) 10 ml Q6 PRN PO COUGH Last administered on 01/10/19at 16:45; Admin Dose 10 ML; Start 01/10/19 at 10:30 Epoetin Fidencio (Epogen (Esrd)) 3,000 units MoWeFr@17 SC ; Start 01/11/19 at 17:00 Prednisone (Prednisone) 5 mg DAILY PO Last administered on 01/12/19at 07:45; Admin Dose 5 MG; Start 01/11/19 at 15:30 Acetaminophen/ Hydrocodone Bitart ([place] (10/325)) 2 tab Q6H PRN PO MODERATE PAIN LEVEL 4-6 Last administered on 01/12/19at 12:04; Admin Dose 2 TAB; Start 01/11/19 at 15:30 Sodium Bicarbonate (Sodium Bicarbonate Tab) 650 mg BID PO Last administered on 01/12/19at 07:45; Admin Dose 650 MG; Start 01/11/19 at 21:00 Hydralazine HCl (Apresoline) 25 mg Q12 PO Last administered on 01/12/19at 07:45; Admin Dose 25 MG; Start 01/11/19 at 21:00 Insulin Glargine (Lantus) 6 units DAILY@2000 SC ; Start 01/12/19 at 20:00 Insulin Aspart (Novolog Insulin Pen) 3 unit WITH MEALS SC Last administered on 01/12/19at 12:11; Admin Dose 3 UNIT; Start 01/12/19 at 12:00 Insulin Aspart (Novolog Insulin Pen) NOVOLOG *MILD* ALGORITHM WITH MEALS BEDTIME SC Last administered on 01/12/19at 12:11; Admin Dose 2 UNIT; Start 01/12/19 at 12:00 Linagliptin (Tradjenta) 5 mg DAILY PO Last administered on 3/12/19at 12:04; Admin Dose 5 MG; Start 01/12/19 at 11:30 Escitalopram Oxalate (Lexapro) 10 mg DAILY PO Last administered on 01/12/19at 12:04; Admin Dose 10 MG; Start 01/12/19 at 11:30 Furosemide (Lasix) 40 mg DAILY IV ; Start 01/13/19 at 09:00 Tacrolimus (Prograf) 2 mg Q12 PO ; Start 01/12/19 at 21:00 PARAMJIT COTTRELL MD Jan 12, 2019 12:27
--- NOTE | 2019-01-12 12:39 | CONS ---
Assessment/Plan Assessment/Plan Hospital Course (Demo Recall) - Anasarca improved with HD - completing Augmentin for progressive swelling of distal aspect of right ring finger with x-ray showing further of erosion and lucency involving the distal aspect of the distal phalanx of the right ring finger suspicious for osteomyelitis with improved but slight associated soft tissue swelling. ESR 67. - Hx OM of R 4th digit: swelling with new erosive changes and osteopenia of the underlying R 4th distal phalanx, suggestive of osteomyelitis; wound culture grew Serratia on 03/18/18 and Serratia + CoNS (likely colonizer) on 04/04/18 ; Pt declined amputation. ESR 39 on 03/18/2018. S/p Levaquin x 6 weeks - Bacteremia d/t MSSA 12/09/2018, repeat blood cx 12/12/18 NGTD - MRSA and K. pneumoniae in urine cx 12/09/2018 - UA was neg for pyuria - Hx mild subtle increased activity within the upper aspect of LUE, nonspecific, on WBC tagged scan on 04/05/2018 - Hx OM of R 3rd fingertip (XR showed periosteal reaction at the tip of R 3rd distal phalanx, suspicious for OM, MRI showed cellulitis of distal R 4th phalanx, without OM) and L 2nd fingertip (XR showed cortical irregularity at the tuft of L 2nd distal phalanx with overlying soft tissue defect, suggesting early OM, MRI showed OM at L 2nd distal phalanx with, cellulitis about L 2nd distal phalanx without drainable fluid collection.) - Hx OM of R 2nd finger s/p amputation at proximal phalanx neck, and h/o OM of L 3rd finger s/p amputation at middle and distal phalanges - Acute on chronic renal failure - Hyperkalemia with metabolic acidosis - slowly improving with sodium bicarb - Hx ESRD, was on HD - S/p renal transplant in 2009 (on tacrolimus, mycophenolate and prednisone), chronic renal insufficiency at baseline - DM - Hgb A1c 10.5% - Hx Juan's esophagus and gastritis s/p EGD on 08/12/2017. No H. pylori on Bx - BLE atherosclerosis - Seen by Vascular Surgery during last admit - Onychomycosis, tinea pedis - Seen by [employer] during last admit - Rheumatoid arthritis - Chronic HCV infection - HTN - Dyslipidemia - Hx polysubstance and IV drug use. 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 psychosis - on Lexapro - Abdominal distention and pain Recommendations: - Complete PO Augmentin x 4weeks to complete therapy - Serial ESR - Monitor GI/ fxn Consultation Date/Type/Reason Admit Date/Time Jan 09, 2019 at 21:14 Date of Consultation: Jan 12, 2019 Type of Consult ID Reason for Consultation [id number] RECS Date/Time of Note DATE: 01/12/19 TIME: 12:34 Hx of Present Illness 58 Yo male well known to our service for om/soft tissue infection of fingers. He was most recently discharged from here mid December to complete a course of Unasyn and then po Augmentin. He was readmitted with caio. denies all Past Medical History Medical History: diabetes, hypertension, renal disease Home Meds Reported Medications Sitagliptin* (Januvia*) 50 Mg Tablet, 50 MG PO DAILY, #30 TAB 12/09/18 Tacrolimus* (Tacrolimus*) 1 Mg Capsule, 3 MG PO QAM, CAP 12/09/18 Tacrolimus* (Tacrolimus*) 1 Mg Capsule, 2 MG PO QHS, CAP 12/09/18 Mycophenolate Sodium* (Mycophenolic Acid*) 180 Mg Tablet.dr, 540 MG PO Q12, TAB 12/09/18 Prednisone* (Prednisone*) 5 Mg Tab, 5 MG PO DAILY, TAB 12/09/18 Glipizide* (Glipizide*) 5 Mg Tablet, 5 MG PO AC BREAKFAST DINNER, TAB 12/09/18 Clonidine Hcl* (Clonidine Hcl*) 0.1 Mg Tab, 0.1 MG PO DAILY, TAB 12/09/18 Insulin Lispro (Humalog) 100 Unit/1 Ml Cartridge, 2-10 UNITS SQ SLIDING SCALE, EA INSURANECE NOT COVERED THIS INSULIN 09/23/18 Medications Current Medications IV Flush (NS 3 ml) 3 ml PER PROTOCOL IV ; Start 01/09/19 at 22:00 Ondansetron HCl (Zofran Inj) 4 mg Q6H PRN IV NAUSEA/VOMITING Last administered on 01/11/19at 01:01; Admin Dose 4 MG; Start 01/09/19 at 22:00 Famotidine (Pepcid Iv) 20 mg DAILY IV Last administered on 01/12/19at 07:44; Admin Dose 20 MG; Start 01/10/19 at 09:00 Diagnostic Test (Pha) (Accu-Chek) 1 ea 02 XX ; Start 01/11/19 at 02:00 Miscellaneous Information 1 ea NOTE XX ; Start 01/10/19 at 04:00 Glucose (Glutose) 15 gm Q15M PRN PO DECREASED GLUCOSE; Start 01/10/19 at 04:00 Glucose (Glutose) 22.5 gm Q15M PRN PO DECREASED GLUCOSE; Start 01/10/19 at 04:00 Dextrose (D50w Syringe) 25 ml Q15M PRN IV DECREASED GLUCOSE; Start 01/10/19 at 04:00 Dextrose (D50w Syringe) 50 ml Q15M PRN IV DECREASED GLUCOSE; Start 01/10/19 at 04:00 Glucagon (Glucagen) 1 mg Q15M PRN IM DECREASED GLUCOSE; Start 01/10/19 at 04:00 Glucose (Glutose) 15 gm Q15M PRN BUCCAL DECREASED GLUCOSE; Start 01/10/19 at 04:00 Guaifenesin/ Dextromethorphan (Robitussin Dm Liquid Cup) 10 ml Q6 PRN PO COUGH Last administered on 01/10/19at 16:45; Admin Dose 10 ML; Start 01/10/19 at 10:30 Epoetin Fidencio (Epogen (Esrd)) 3,000 units MoWeFr@17 SC ; Start 01/11/19 at 17:00 Prednisone (Prednisone) 5 mg DAILY PO Last administered on 01/12/19at 07:45; Admin Dose 5 MG; Start 01/11/19 at 15:30 Acetaminophen/ Hydrocodone Bitart ([place] ()) 2 tab Q6H PRN PO MODERATE PAIN LEVEL 4-6 Last administered on 01/12/19at 12:04; Admin Dose 2 TAB; Start 01/11/19 at 15:30 Sodium Bicarbonate (Sodium Bicarbonate Tab) 650 mg BID PO Last administered on 01/12/19at 07:45; Admin Dose 650 MG; Start 01/11/19 at 21:00 Hydralazine HCl (Apresoline) 25 mg Q12 PO Last administered on 01/12/19at 07:45; Admin Dose 25 MG; Start 01/11/19 at 21:00 Insulin Glargine (Lantus) 6 units DAILY@2000 SC ; Start 01/12/19 at 20:00 Insulin Aspart (Novolog Insulin Pen) 3 unit WITH MEALS SC Last administered on 01/12/19at 12:11; Admin Dose 3 UNIT; Start 01/12/19 at 12:00 Insulin Aspart (Novolog Insulin Pen) NOVOLOG *MILD* ALGORITHM WITH MEALS BEDTIME SC Last administered on 01/12/19at 12:11; Admin Dose 2 UNIT; Start 01/12/19 at 12:00 Linagliptin (Tradjenta) 5 mg DAILY PO Last administered on 01/12/19at 12:04; Admin Dose 5 MG; Start 01/12/19 at 11:30 Escitalopram Oxalate (Lexapro) 10 mg DAILY PO Last administered on 01/12/19at 12:04; Admin Dose 10 MG; Start 01/12/19 at 11:30 Furosemide (Lasix) 40 mg DAILY IV ; Start 01/13/19 at 09:00 Tacrolimus (Prograf) 2 mg Q12 PO ; Start 01/12/19 at 21:00 Allergies: Coded Allergies: magnesium (Unverified Allergy, Intermediate, 12/09/18) NUMBNESS AND HOT FUSHES Past Surgical History Past Surgical Hx: other Social History Smoking Status: Never smoker Exam/Review of Systems Exam Vitals Vital Signs Date Temp Pulse Resp B/P (MAP) Pulse Ox O2 O2 Flow FiO2 Time Delivery Rate 01/12/19 98.4 75 19 137/56 97 11:35 (83) 01/11/19 Room Air 08:10 01/10/19 3.0 01:25 Intake and Output 01/11/19 01/11/19 01/12/19 1515:00 23:00 07:00 IntakeIntake Total 1200 ml 700 ml OutputOutput Total 1800 ml BalanceBalance 1200 ml -1100 ml Constitutional: alert, oriented, well developed Psych: no complaints, nl mood/affect Head: normocephalic, atraumatic Eyes: nl conjunctiva, EOMI, nl lids, nl sclera, PERRL ENMT: nl external ears & nose, nl lips & teeth, nl nasal mucosa & septum Respiratory: clear to auscultation, normal air movement Cardiovascular: regular rate and rhythm, nl pulses Gastrointestinal: soft, nl liver, spleen, non-tender Extremities: other (finger healing w/o active signs of infection) Results Result Diagram: 01/12/19 1104 01/12/19 1026 Results 24hrs Laboratory Tests Test 01/11/19 17:36 01/11/19 18:30 01/11/19 20:23 01/12/19 00:47 Bedside Glucose 132 174 Sodium Level 139 Potassium Level 5.5 H Chloride Level 110 Carbon Dioxide 20 L Level Anion Gap 9 Blood Urea 50 H Nitrogen Creatinine 3.62 H Est Glomerular 17 L Filtrat Rate mL/min Glucose Level 148 Calcium Level 8.8 Creatine Kinase 113 90 Creatine Kinase 0.7 0.6 Index Creatinine Kinase 0.81 0.57 MB (Mass) Troponin I 0.062 0.049 Test 01/12/19 04:44 01/12/19 07:46 01/12/19 08:53 01/12/19 10:26 Creatine Kinase 95 Creatine Kinase 0.6 Index Creatinine Kinase 0.59 MB (Mass) Troponin I 0.048 Triglycerides 166 H Level Cholesterol Level 143 LDL Cholesterol, 65 Calculated HDL Cholesterol 45 Cholesterol/HDL 3.1 Ratio Bedside Glucose 232 H Lab Scanned BLOOD TRANSFUSIO Report N White Blood Count 4.9 Red Blood Count 2.77 #L Hemoglobin 9.1 #L Hematocrit 28.0 #L Mean Corpuscular 101.1 H Volume Mean Corpuscular 32.9 Hemoglobin Mean Corpuscular 32.5 Hemoglobin Concen t Red Cell 16.3 H Distribution Width Platelet Count 186 Mean Platelet 10.3 Volume Immature 0.400 Granulocytes % Neutrophils % 82.3 H Lymphocytes % 6.9 L Monocytes % 9.6 Eosinophils % 0.4 Basophils % 0.4 Nucleated Red 0.0 Blood Cells % Immature 0.020 Granulocytes # Neutrophils # 4.1 Lymphocytes # 0.3 L Monocytes # 0.5 Eosinophils # 0.0 Basophils # 0.0 Nucleated Red 0.0 Blood Cells # Sodium Level 140 Potassium Level 5.0 Chloride Level 107 Carbon Dioxide 22 Level Anion Gap 11 Blood Urea 51 H Nitrogen Creatinine 3.75 H Est Glomerular 17 L Filtrat Rate mL/min Glucose Level 127 Calcium Level 9.0 Test 01/12/19 10:33 01/12/19 11:04 01/12/19 12:05 Hemoglobin A1c 6.7 H Platelet Count 177 Prothrombin Time 13.9 Prothrombin Time 1.1 Ratio INR International 1.06 Normalized Ratio Activated 28.6 Partial Thrombopl ast Time Thrombin Time 14.8 Bedside Glucose 199 Medications Medication Current Medications IV Flush (NS 3 ml) 3 ml PER PROTOCOL IV ; Start 01/09/19 at 22:00 Ondansetron HCl (Zofran Inj) 4 mg Q6H PRN IV NAUSEA/VOMITING Last administered on 01/11/19at 01:01; Admin Dose 4 MG; Start 01/09/19 at 22:00 Famotidine (Pepcid Iv) 20 mg DAILY IV Last administered on 01/12/19at 07:44; Admin Dose 20 MG; Start 01/10/19 at 09:00 Diagnostic Test (Pha) (Accu-Chek) 1 ea 02 XX ; Start 01/11/19 at 02:00 Miscellaneous Information 1 ea NOTE XX ; Start 01/10/19 at 04:00 Glucose (Glutose) 15 gm Q15M PRN PO DECREASED GLUCOSE; Start 01/10/19 at 04:00 Glucose (Glutose) 22.5 gm Q15M PRN PO DECREASED GLUCOSE; Start 01/10/19 at 04:00 Dextrose (D50w Syringe) 25 ml Q15M PRN IV DECREASED GLUCOSE; Start 01/10/19 at 04:00 Dextrose (D50w Syringe) 50 ml Q15M PRN IV DECREASED GLUCOSE; Start 01/10/19 at 04:00 Glucagon (Glucagen) 1 mg Q15M PRN IM DECREASED GLUCOSE; Start 01/10/19 at 04:00 Glucose (Glutose) 15 gm Q15M PRN BUCCAL DECREASED GLUCOSE; Start 01/10/19 at 04:00 Guaifenesin/ Dextromethorphan (Robitussin Dm Liquid Cup) 10 ml Q6 PRN PO COUGH Last administered on 01/10/19at 16:45; Admin Dose 10 ML; Start 01/10/19 at 10:30 Epoetin Fidencio (Epogen (Esrd)) 3,000 units MoWeFr@17 SC ; Start 01/11/19 at 17:00 Prednisone (Prednisone) 5 mg DAILY PO Last administered on 01/12/19at 07:45; Admin Dose 5 MG; Start 01/11/19 at 15:30 Acetaminophen/ Hydrocodone Bitart ([place] (10)) 2 tab Q6H PRN PO MODERATE PAIN LEVEL 4-6 Last administered on 01/12/19 12:04; Admin Dose 2 TAB; Start 01/11/19 at 15:30 Sodium Bicarbonate (Sodium Bicarbonate Tab) 650 mg BID PO Last administered on 01/12/19 07:45; Admin Dose 650 MG; Start 01/11/19 at 21:00 Hydralazine HCl (Apresoline) 25 mg Q12 PO Last administered on 01/12/19 07:45; Admin Dose 25 MG; Start 01/11/19 at 21:00 Insulin Glargine (Lantus) 6 units DAILY@2000 SC ; Start 01/12/19 at 20:00 Insulin Aspart (Novolog Insulin Pen) 3 unit WITH MEALS SC Last administered on 01/12/19 12:11; Admin Dose 3 UNIT; Start 01/12/19 at 12:00 Insulin Aspart (Novolog Insulin Pen) NOVOLOG *MILD* ALGORITHM WITH MEALS BEDTIME SC Last administered on 01/12/19 12:11; Admin Dose 2 UNIT; Start 01/12/19 at 12:00 Linagliptin (Tradjenta) 5 mg DAILY PO Last administered on 01/12/19 12:04; Admin Dose 5 MG; Start 01/12/19 at 11:30 Escitalopram Oxalate (Lexapro) 10 mg DAILY PO Last administered on 01/12/19 12:04; Admin Dose 10 MG; Start 01/12/19 at 11:30 Furosemide (Lasix) 40 mg DAILY IV ; Start 01/13/19 at 09:00 Tacrolimus (Prograf) 2 mg Q12 PO ; Start 01/12/19 at 21:00 PARAMJIT COTTRELL MD Jan 12, 2019 12:39
[2019-01-12] MEDS: AMOXICILLIN/CLAV 500 MG TAB PO SCH ×2 (14:41→20:12)
--- NOTE | 2019-01-12 15:25 | RADRPT ---
V[place] Rate: 70 bpm RR Interval: 0 msec [place] Interval: 162 msec QRS Duration: 72 msec QT Interval: 416 msec QTC Interval: 449 msec P-R-T [place]: 61 - 57 - 62 degrees Normal sinus rhythm Septal infarct , age undetermined Abnormal ECG Electronically Signed By: Marvin Amezcua
[2019-01-12] MEDS ORDERED: CEFA2PLA9 IV (15:54)
[2019-01-12] MEDS: INSULIN GLARGINE [LANTus] (100 UNITS/ML) SYG SC SCH (20:19)
[2019-01-12] MEDS ORDERED: AMOXICILLIN/CLAV 875 MG TAB PO SCH ×2 (21:00)
[2019-01-13] VITALS (13 sets, daily range): BP systolic 130–148; BP diastolic 59–79; PULSE 68–113; RESP 18–19
[2019-01-13] MEDS: ACCU-CHEK XX SCH (01:34)
[2019-01-13] MEDS ORDERED: ACCU-CHEK XX SCH (02:00)
[2019-01-13] MEDS: HYDROCODONE/APAP (10/325) TAB PO PRN ×2 (05:51→17:41)
[2019-01-13] MEDS: INSULIN ASPART [NOVOLOG] 3 ML PEN SC SCH ×7 (08:00→20:18)
[2019-01-13] MEDS ORDERED: FAMOTIDINE 20 MG TAB PO SCH (09:00)
[2019-01-13] MEDS ORDERED: FUROSEMIDE 40 MG INJ IV SCH (09:00)
[2019-01-13] MEDS: ESCITALOPRAM 10 MG TAB PO SCH (09:02)
[2019-01-13] MEDS: NA BICARBONATE 650 MG TAB PO SCH ×2 (09:02→20:08)
[2019-01-13] MEDS: LINAGLIPTIN 5 MG TABLET PO SCH (09:02)
[2019-01-13] MEDS: TACROLIMUS 1 MG CAP PO SCH ×2 (09:02→20:09)
[2019-01-13] MEDS: predniSONE 5 MG TAB PO SCH (09:02)
[2019-01-13] MEDS: AMOXICILLIN/CLAV 500 MG TAB PO SCH ×2 (09:02→20:09)
[2019-01-13] MEDS: ONDANSETRON 4 MG INJ IV PRN (09:19)
--- NOTE | 2019-01-13 10:06 | PN ---
Date/Time of Note Date/Time of Note DATE: 01/13/19 TIME: 10:04 Assessment/Plan VTE Prophylaxis Risk score (from Ns)>0 risk: 4 SCD applied (from [facility] [place] Yes Pharmacological prophylaxis: NA/contraindicated Pharm contraindication: bleeding Lines/Catheters IV Catheter Type (from Nrs): PICC Line Central line still needed: Yes Assessment/Plan Hospital Course CT revealed renal hematoma, Dr Noguera is asked to see pt in urology consultation, hemoglobin is 9.1, pain is adequately controlled. Assessment/Plan -Renal hematoma CT of the abdomen and pelvis, Dr. Noguera is following in urology consultation. -Anemia of acute blood loss, status post blood transfusion, continue to monitor H&H. -Severe hyperkalemia, s/p Kayexalate. Dr. Fofana is following in nephrology consultation. -Bilateral lower extremities and scrotal edema -Right middle finger cellulitis with gangrene, resolving. Dr. Olmstead is following in infection disease consultation. -Chronic kidney disease stage IV, status post cadaveric kidney transplant in 2009. -Diabetes mellitus type 2 with diabetic neuropathy, hemoglobin A1c is 6.7. Continue Tradjenta, Lantus and NovoLog. -Atherosclerosis -Hypertension. -History of right fourth finger gangrene -History of Juan's esophagus and severe gastritis. -Chronic HCV infection -Rheumatoid arthritis -History of polysubstance and IV drug use Further recommendations based on clinical course. Plan of care discussed with Dr. Maier. Result Diagram: 01/13/19 0545 01/13/19 0545 Results 24hrs Laboratory Tests Test 01/12/19 10:26 01/12/19 10:33 01/12/19 11:04 01/12/19 12:05 White Blood Count 4.9 Red Blood Count 2.77 #L Hemoglobin 9.1 #L Hematocrit 28.0 #L Mean Corpuscular 101.1 H Volume Mean Corpuscular 32.9 Hemoglobin Mean Corpuscular 32.5 Hemoglobin Concent Red Cell 16.3 H Distribution Width Platelet Count 186 177 Mean Platelet Volume 10.3 Immature 0.400 Granulocytes % Neutrophils % 82.3 H Lymphocytes % 6.9 L Monocytes % 9.6 Eosinophils % 0.4 Basophils % 0.4 Nucleated Red Blood 0.0 Cells % Immature 0.020 Granulocytes # Neutrophils # 4.1 Lymphocytes # 0.3 L Monocytes # 0.5 Eosinophils # 0.0 Basophils # 0.0 Nucleated Red Blood 0.0 Cells # Sodium Level 140 Potassium Level 5.0 Chloride Level 107 Carbon Dioxide Level 22 Anion Gap 11 Blood Urea Nitrogen 51 H Creatinine 3.75 H Est Glomerular 17 L Filtrat Rate mL/min Glucose Level 127 Calcium Level 9.0 Hemoglobin A1c 6.7 H Prothrombin Time 13.9 Prothrombin Time 1.1 Ratio INR International 1.06 Normalized Ratio Activated 28.6 Partial Thromboplast Time Thrombin Time 14.8 Bedside Glucose 199 Test 01/12/19 17:07 01/12/19 20:10 01/13/19 05:45 01/13/19 09:09 Bedside Glucose 180 124 72 White Blood Count 4.9 Red Blood Count 2.80 L Hemoglobin 9.1 L Hematocrit 28.3 L Mean Corpuscular 101.1 H Volume Mean Corpuscular 32.5 Hemoglobin Mean Corpuscular 32.2 Hemoglobin Concent Red Cell 15.4 H Distribution Width Platelet Count 203 Mean Platelet Volume 10.5 H Immature 0.400 Granulocytes % Neutrophils % 74.9 Lymphocytes % 12.7 L Monocytes % 11.2 H Eosinophils % 0.4 Basophils % 0.4 Nucleated Red Blood 0.0 Cells % Immature 0.020 Granulocytes # Neutrophils # 3.7 Lymphocytes # 0.6 L Monocytes # 0.6 Eosinophils # 0.0 Basophils # 0.0 Nucleated Red Blood 0.0 Cells # Erythrocyte 60 H Sedimentation Rate Sodium Level 142 Potassium Level 4.7 Chloride Level 108 Carbon Dioxide Level 21 Anion Gap 13 Blood Urea Nitrogen 49 H Creatinine 3.64 H Est Glomerular 17 L Filtrat Rate mL/min Glucose Level 66 #L Calcium Level 9.1 Phosphorus Level 5.1 H Magnesium Level 1.8 Exam/Review of Systems Exam Vitals Vital Signs Date Temp Pulse Resp B/P (MAP) Pulse Ox O2 O2 Flow FiO2 Time Delivery Rate 01/13/19 98.7 71 18 136/60 98 07:35 (85) 01/11/19 Room Air 08:10 01/10/19 3.0 01:25 Intake and Output 01/12/19 01/12/19 01/13/19 1515:00 23:00 07:00 IntakeIntake Total 800 ml 500 ml OutputOutput Total 1000 ml 1500 ml BalanceBalance -200 ml -1000 ml Exam Constitutional: alert, oriented Neck: supple Respiratory: clear to auscultation Cardiovascular: regular rate and rhythm Gastrointestinal: soft, non-tender Musculoskeletal: nl extremities to inspection Extremities: edema, other (Right third fingertip wound, dry) Results Results 24hrs Laboratory Tests Test 01/12/19 10:26 01/12/19 10:33 01/12/19 11:04 01/12/19 12:05 White Blood Count 4.9 Red Blood Count 2.77 #L Hemoglobin 9.1 #L Hematocrit 28.0 #L Mean Corpuscular 101.1 H Volume Mean Corpuscular 32.9 Hemoglobin Mean Corpuscular 32.5 Hemoglobin Concent Red Cell 16.3 H Distribution Width Platelet Count 186 177 Mean Platelet Volume 10.3 Immature 0.400 Granulocytes % Neutrophils % 82.3 H Lymphocytes % 6.9 L Monocytes % 9.6 Eosinophils % 0.4 Basophils % 0.4 Nucleated Red Blood 0.0 Cells % Immature 0.020 Granulocytes # Neutrophils # 4.1 Lymphocytes # 0.3 L Monocytes # 0.5 Eosinophils # 0.0 Basophils # 0.0 Nucleated Red Blood 0.0 Cells # Sodium Level 140 Potassium Level 5.0 Chloride Level 107 Carbon Dioxide Level 22 Anion Gap 11 Blood Urea Nitrogen 51 H Creatinine 3.75 H Est Glomerular 17 L Filtrat Rate mL/min Glucose Level 127 Calcium Level 9.0 Hemoglobin A1c 6.7 H Prothrombin Time 13.9 Prothrombin Time 1.1 Ratio INR International 1.06 Normalized Ratio Activated 28.6 Partial Thromboplast Time Thrombin Time 14.8 Bedside Glucose 199 Test 01/12/19 17:07 01/12/19 20:10 01/13/19 05:45 01/13/19 09:09 Bedside Glucose 180 124 72 White Blood Count 4.9 Red Blood Count 2.80 L Hemoglobin 9.1 L Hematocrit 28.3 L Mean Corpuscular 101.1 H Volume Mean Corpuscular 32.5 Hemoglobin Mean Corpuscular 32.2 Hemoglobin Concent Red Cell 15.4 H Distribution Width Platelet Count 203 Mean Platelet Volume 10.5 H Immature 0.400 Granulocytes % Neutrophils % 74.9 Lymphocytes % 12.7 L Monocytes % 11.2 H Eosinophils % 0.4 Basophils % 0.4 Nucleated Red Blood 0.0 Cells % Immature 0.020 Granulocytes # Neutrophils # 3.7 Lymphocytes # 0.6 L Monocytes # 0.6 Eosinophils # 0.0 Basophils # 0.0 Nucleated Red Blood 0.0 Cells # Erythrocyte 60 H Sedimentation Rate Sodium Level 142 Potassium Level 4.7 Chloride Level 108 Carbon Dioxide Level 21 Anion Gap 13 Blood Urea Nitrogen 49 H Creatinine 3.64 H Est Glomerular 17 L Filtrat Rate mL/min Glucose Level 66 #L Calcium Level 9.1 Phosphorus Level 5.1 H Magnesium Level 1.8 Medications Medication Current Medications IV Flush (NS 3 ml) 3 ml PER PROTOCOL IV ; Start 01/09/19 at 22:00 Ondansetron HCl (Zofran Inj) 4 mg Q6H PRN IV NAUSEA/VOMITING Last administered on 01/13/19at 09:19; Admin Dose 4 MG; Start 01/09/19 at 22:00 Diagnostic Test (Pha) (Accu-Chek) 1 ea 02 XX ; Start 01/11/19 at 02:00 Miscellaneous Information 1 ea NOTE XX ; Start 01/10/19 at 04:00 Glucose (Glutose) 15 gm Q15M PRN PO DECREASED GLUCOSE; Start 01/10/19 at 04:00 Glucose (Glutose) 22.5 gm Q15M PRN PO DECREASED GLUCOSE; Start 01/10/19 at 04:00 Dextrose (D50w Syringe) 25 ml Q15M PRN IV DECREASED GLUCOSE; Start 01/10/19 at 04:00 Dextrose (D50w Syringe) 50 ml Q15M PRN IV DECREASED GLUCOSE; Start 01/10/19 at 04:00 Glucagon (Glucagen) 1 mg Q15M PRN IM DECREASED GLUCOSE; Start 01/10/19 at 04:00 Glucose (Glutose) 15 gm Q15M PRN BUCCAL DECREASED GLUCOSE; Start 01/10/19 at 04:00 Guaifenesin/ Dextromethorphan (Robitussin Dm Liquid Cup) 10 ml Q6 PRN PO COUGH Last administered on 01/10/19at 16:45; Admin Dose 10 ML; Start 01/10/19 at 10:30 Epoetin Fidencio (Epogen (Esrd)) 3,000 units MoWeFr@17 SC ; Start 01/11/19 at 17:00 Prednisone (Prednisone) 5 mg DAILY PO Last administered on 01/13/19at 09:02; Admin Dose 5 MG; Start 01/11/19 at 15:30 Acetaminophen/ Hydrocodone Bitart ([place] (10/325)) 2 tab Q6H PRN PO MODERATE PAIN LEVEL 4-6 Last administered on 01/13/19 05:51; Admin Dose 2 TAB; Start 09/21 at 15:30 Sodium Bicarbonate (Sodium Bicarbonate Tab) 650 mg BID PO Last administered on 01/13/19 09:02; Admin Dose 650 MG; Start 01/11/19 at 21:00 Hydralazine HCl (Apresoline) 25 mg Q12 PO Last administered on 01/13/19 09:03; Admin Dose 25 MG; Start 01/11/19 at 21:00 Insulin Glargine (Lantus) 6 units DAILY@2000 SC Last administered on 01/12/19 20:19; Admin Dose 6 UNITS; Start 01/12/19 at 20:00 Insulin Aspart (Novolog Insulin Pen) 3 unit WITH MEALS SC Last administered on 01/12/19 17:15; Admin Dose 3 UNIT; Start 01/12/19 at 12:00 Insulin Aspart (Novolog Insulin Pen) NOVOLOG *MILD* ALGORITHM WITH MEALS BEDTIME SC Last administered on 01/12/19 17:15; Admin Dose 1 UNIT; Start 01/12/19 at 12:00 Linagliptin (Tradjenta) 5 mg DAILY PO Last administered on 01/13/19 09:02; Admin Dose 5 MG; Start 01/12/19 at 11:30 Escitalopram Oxalate (Lexapro) 10 mg DAILY PO Last administered on 01/13/19 09:02; Admin Dose 10 MG; Start 01/12/19 at 11:30 Furosemide (Lasix) 40 mg DAILY IV Last administered on 01/13/19 09:04; Admin Dose 40 MG; Start 01/13/19 at 09:00 Tacrolimus (Prograf) 2 mg Q12 PO Last administered on 01/13/19 09:02; Admin Dose 2 MG; Start 01/12/19 at 21:00 Amoxicillin/ Clavulanate Potassium (Augmentin) 500 mg Q12 PO Last administered on 01/13/19 09:02; Admin Dose 500 MG; Start 01/12/19 at 14:00 Famotidine (Pepcid) 20 mg DAILY PO Last administered on 01/13/19 09:02; Admin Dose 20 MG; Start 01/13/19 at 09:00 LETI RODRIGUEZ Jan 13, 2019 10:06
--- NOTE | 2019-01-13 12:02 | CONS ---
Assessment/Plan Assessment/Plan Assessment/Plan (Daily) his is a 58-year-old male who presented with: 1. Severe hyperkalemia. The patient has chronic renal failure stage IV. This could be secondary to renal failure. Rule out Prograf toxicity. The patient also has metabolic acidosis that could contribute to that. 4. Chronic kidney disease stage IV. The patient has donor renal transplantation in 2009. The patient also has underlying severe diabetic nephropathy. Creatinine has been 3.5-3.6 range since last discharge 5. Non-gap metabolic acidosis likely secondary to renal failure. Rule out obstruction. Ultrasound positive for hydro-nephrosis in the right kidney which is unchanged from the prior ultrasound 6. Anasarca likely secondary to underlying renal failure/ Proteinuria 7. Diabetes. 8. donor renal transplantation in 2009. 9. History of Staphylococcus bacteremia off of mycophenolate. 10. Hypertension. 11. Diabetes. 12. Peripheral vascular disease with amputation. 13. History of hepatitis C. 14 There is a hematoma within the right lateral abdominal wall musculature which has developed since the previous study done 12/13/2018 measuring 7.3 x 4.6 cm in cross diameter and extending an acrylic that dimension approximately 10.7 cm from the level of the superior pole of the pala right kidney to just i nferior to the right iliac crest. plan -Dr. Paolmares was consulted however the hematoma is near the pala kidneys -No anticoagulation please -With Lasix 40, and Cr is stable -Fluid restriction -cw with sodium bicarb -cw Prograf to 2/.2, continue with prednisone 5 -Hold mycophenolate until the infection is cleared -monitor BMP -Strict i and O Consultation Date/Type/Reason Admit Date/Time Jan 09, 2019 at 21:14 Initial Consult Date Date/Time of Note DATE: 01/13/19 TIME: 11:59 24 HR Interval Summary Free Text/Dictation Patient feels a lot better today breathing is much improved swelling is improved Feels that the right side hematoma is expanding Exam/Review of Systems Exam Vitals Vital Signs Date Temp Pulse Resp B/P (MAP) Pulse Ox O2 O2 Flow FiO2 Time Delivery Rate 01/13/19 87 08:01 01/13/19 98.7 18 136/60 98 07:35 (85) 01/11/19 Room Air 08:10 01/10/19 3.0 01:25 Intake and Output 01/12/19 01/12/19 01/13/19 1515:00 23:00 07:00 IntakeIntake Total 800 ml 500 ml OutputOutput Total 1000 ml 1500 ml BalanceBalance -200 ml -1000 ml Exam GENERAL: The patient is well-developed, well-nourished male, who does not appear to in any acute distress. HEENT: Pupils are equal, round and reactive to light. NECK: Supple. LUNGS: Decreased breath sounds bilaterally. ABDOMEN: Soft, nontender. The patient has positive bowel sounds. No t enderness appreciated at renal transplant site. EXTREMITIES: There is 1 to 2+ edema. Improved GENITOURINARY: The patient has marked scrotal edema. Bruising noted on the right flank upper abdomen Results Result Diagram: 01/13/19 0545 01/13/19 0545 Results 24hrs Laboratory Tests Test 01/12/19 12:05 01/12/19 17:07 01/12/19 20:10 01/13/19 05:45 Bedside Glucose 199 180 124 White Blood Count 4.9 Red Blood Count 2.80 L Hemoglobin 9.1 L Hematocrit 28.3 L Mean Corpuscular 101.1 H Volume Mean Corpuscular 32.5 Hemoglobin Mean Corpuscular 32.2 Hemoglobin Concent Red Cell 15.4 H Distribution Width Platelet Count 203 Mean Platelet Volume 10.5 H Immature 0.400 Granulocytes % Neutrophils % 74.9 Lymphocytes % 12.7 L Monocytes % 11.2 H Eosinophils % 0.4 Basophils % 0.4 Nucleated Red Blood 0.0 Cells % Immature 0.020 Granulocytes # Neutrophils # 3.7 Lymphocytes # 0.6 L Monocytes # 0.6 Eosinophils # 0.0 Basophils # 0.0 Nucleated Red Blood 0.0 Cells # Erythrocyte 60 H Sedimentation Rate Sodium Level 142 Potassium Level 4.7 Chloride Level 108 Carbon Dioxide Level 21 Anion Gap 13 Blood Urea Nitrogen 49 H Creatinine 3.64 H Est Glomerular 17 L Filtrat Rate mL/min Glucose Level 66 #L Calcium Level 9.1 Phosphorus Level 5.1 H Magnesium Level 1.8 Test 01/13/19 09:09 Bedside Glucose 72 Medications Medication Current Medications IV Flush (NS 3 ml) 3 ml PER PROTOCOL IV ; Start 01/09/19 at 22:00 Ondansetron HCl (Zofran Inj) 4 mg Q6H PRN IV NAUSEA/VOMITING Last administered on 01/13/19 09:19; Admin Dose 4 MG; Start 01/09/19 at 22:00 Diagnostic Test (Pha) (Accu-Chek) 1 ea 02 XX ; Start 01/11/19 at 02:00 Miscellaneous Information 1 ea NOTE XX ; Start 01/10/19 at 04:00 Glucose (Glutose) 15 gm Q15M PRN PO DECREASED GLUCOSE; Start 01/10/19 at 04:00 Glucose (Glutose) 22.5 gm Q15M PRN PO DECREASED GLUCOSE; Start 01/10/19 at 04:00 Dextrose (D50w Syringe) 25 ml Q15M PRN IV DECREASED GLUCOSE; Start 01/10/19 at 04:00 Dextrose (D50w Syringe) 50 ml Q15M PRN IV DECREASED GLUCOSE; Start 01/10/19 at 04:00 Glucagon (Glucagen) 1 mg Q15M PRN IM DECREASED GLUCOSE; Start 01/10/19 at 04:00 Glucose (Glutose) 15 gm Q15M PRN BUCCAL DECREASED GLUCOSE; Start 01/10/19 at 04:00 Guaifenesin/ Dextromethorphan (Robitussin Dm Liquid Cup) 10 ml Q6 PRN PO COUGH Last administered on 01/10/19at 16:45; Admin Dose 10 ML; Start 01/10/19 at 10:30 Epoetin Fidencio (Epogen (Esrd)) 3,000 units MoWeFr@17 SC ; Start 01/11/19 at 17:00 Prednisone (Prednisone) 5 mg DAILY PO Last administered on 01/13/19at 09:02; Admin Dose 5 MG; Start 01/11/19 at 15:30 Acetaminophen/ Hydrocodone Bitart ([place] (10/325)) 2 tab Q6H PRN PO MODERATE PAIN LEVEL 4-6 Last administered on 01/13/19at 05:51; Admin Dose 2 TAB; Start 01/11/19 at 15:30 Sodium Bicarbonate (Sodium Bicarbonate Tab) 650 mg BID PO Last administered on 01/13/19at 09:02; Admin Dose 650 MG; Start 01/11/19 at 21:00 Hydralazine HCl (Apresoline) 25 mg Q12 PO Last administered on 01/13/19at 09:03; Admin Dose 25 MG; Start 01/11/19 at 21:00 Insulin Glargine (Lantus) 6 units DAILY@2000 SC Last administered on 01/12/19 20:19; Admin Dose 6 UNITS; Start 01/12/19 at 20:00 Insulin Aspart (Novolog Insulin Pen) 3 unit WITH MEALS SC Last administered on 01/12/19 17:15; Admin Dose 3 UNIT; Start 01/12/19 at 12:00 Insulin Aspart (Novolog Insulin Pen) NOVOLOG *MILD* ALGORITHM WITH MEALS BEDTIME SC Last administered on 01/12/19 17:15; Admin Dose 1 UNIT; Start 01/12/19 at 12:00 Linagliptin (Tradjenta) 5 mg DAILY PO Last administered on 01/13/19 09:02; Admin Dose 5 MG; Start 01/12/19 at 11:30 Escitalopram Oxalate (Lexapro) 10 mg DAILY PO Last administered on 01/13/19 09:02; Admin Dose 10 MG; Start 01/12/19 at 11:30 Furosemide (Lasix) 40 mg DAILY IV Last administered on 01/13/19 09:04; Admin Dose 40 MG; Start 01/13/19 at 09:00 Tacrolimus (Prograf) 2 mg Q12 PO Last administered on 01/13/19 09:02; Admin Dose 2 MG; Start 01/12/19 at 21:00 Amoxicillin/ Clavulanate Potassium (Augmentin) 500 mg Q12 PO Last administered on 01/13/19 09:02; Admin Dose 500 MG; Start 01/12/19 at 14:00 Famotidine (Pepcid) 20 mg DAILY PO Last administered on 01/13/19 09:02; Admin Dose 20 MG; Start 01/13/19 at 09:00 HARVINDER BLOOD MD Jan 13, 2019 12:02
--- NOTE | 2019-01-13 12:23 | CONS ---
Assessment/Plan Assessment/Plan Hospital Course (Demo Recall) IMPRESSION: 1. Hypertension, currently uncontrolled. 2. Congestive heart failure, diastolic by most recent echo in 12/2018, EF 60- 65%, acute on chronic. 3. Abnormal electrocardiogram with anteroseptal Q's. Assess for acute coronary syndrome. 4. Chronic kidney disease, status post prior cadaveric renal transplant. 5. Rheumatoid arthritis. 6. Diabetes mellitus. 7. Prior gangrenous changes of fingertip, managed conservatively due to the patient's preference. 8. Hyperkalemia, ongoing. 9. [id number] renal failure. 10. Anemia, worsening.- s/p transfusions 11. Abdominal hematoma-? etiology Recc: -Tele -follow hgb and evaluate abd hemtoma ? surgical consult -Continue hydralazine -Continue immunosuppresibves -Continue abx's and f/u cx data Consultation Date/Type/Reason Admit Date/Time Jan 09, 2019 at 21:14 Initial Consult Date 01/12/19 Type of Consult Cardiology Reason for Consultation HTN Requesting Provider: LUPE KAPLAN MD Date/Time of Note DATE: 01/13/19 TIME: 12:19 Exam/Review of Systems Vital Signs Vitals Vital Signs Date Temp Pulse Resp B/P (MAP) Pulse Ox O2 O2 Flow FiO2 Time Delivery Rate 01/13/19 97.4 113 18 131/68 99 12:13 (89) 01/11/19 Room Air 08:10 01/10/19 3.0 01:25 Intake and Output 01/12/19 01/12/19 01/13/19 1515:00 23:00 07:00 IntakeIntake Total 800 ml 500 ml OutputOutput Total 1000 ml 1500 ml BalanceBalance -200 ml -1000 ml Exam Exam Review of Systems: CONSTITUTIONAL: No fevers, chills. PULMONARY: No sob CARDIOVASCULAR: No chest pain/palpitations GASTROINTESTINAL:c/o abd pain GENITOURINARY: No hematuria/dysuria. MUSCULOSKELETAL: No myagias/arthalgias. PSYCHIATRIC: The patient denies depression. NEUROLOGIC: No weakness Constitutional: alert Psych: no complaints Head: normocephalic ENMT: mucosa pink and moist Neck: supple, jvd (9 cm water) Respiratory: clear to auscultation Cardiovascular: regular rate and rhythm Gastrointestinal: soft, tender (mild on R side of abdomen) Musculoskeletal: muscle weakness (mild generalized) Extremities: edema (none) 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: other (No focal deficits) Labs Result Diagram: 01/13/19 0545 01/13/19 0545 Results 24hrs Laboratory Tests Test 01/12/19 17:07 01/12/19 20:10 01/13/19 05:45 01/13/19 09:09 Bedside Glucose 180 124 72 White Blood Count 4.9 Red Blood Count 2.80 L Hemoglobin 9.1 L Hematocrit 28.3 L Mean Corpuscular 101.1 H Volume Mean Corpuscular 32.5 Hemoglobin Mean Corpuscular 32.2 Hemoglobin Concent Red Cell 15.4 H Distribution Width Platelet Count 203 Mean Platelet Volume 10.5 H Immature 0.400 Granulocytes % Neutrophils % 74.9 Lymphocytes % 12.7 L Monocytes % 11.2 H Eosinophils % 0.4 Basophils % 0.4 Nucleated Red Blood 0.0 Cells % Immature 0.020 Granulocytes # Neutrophils # 3.7 Lymphocytes # 0.6 L Monocytes # 0.6 Eosinophils # 0.0 Basophils # 0.0 Nucleated Red Blood 0.0 Cells # Erythrocyte 60 H Sedimentation Rate Sodium Level 142 Potassium Level 4.7 Chloride Level 108 Carbon Dioxide Level 21 Anion Gap 13 Blood Urea Nitrogen 49 H Creatinine 3.64 H Est Glomerular 17 L Filtrat Rate mL/min Glucose Level 66 #L Calcium Level 9.1 Phosphorus Level 5.1 H Magnesium Level 1.8 Medications Medications Current Medications IV Flush (NS 3 ml) 3 ml PER PROTOCOL IV ; Start 01/09/19 at 22:00 Ondansetron HCl (Zofran Inj) 4 mg Q6H PRN IV NAUSEA/VOMITING Last administered on 01/13/19at 09:19; Admin Dose 4 MG; Start 01/09/19 at 22:00 Diagnostic Test (Pha) (Accu-Chek) 1 ea 02 XX ; Start 01/11/19 at 02:00 Miscellaneous Information 1 ea NOTE XX ; Start 01/10/19 at 04:00 Glucose (Glutose) 15 gm Q15M PRN PO DECREASED GLUCOSE; Start 01/10/19 at 04:00 Glucose (Glutose) 22.5 gm Q15M PRN PO DECREASED GLUCOSE; Start 01/10/19 at 04:00 Dextrose (D50w Syringe) 25 ml Q15M PRN IV DECREASED GLUCOSE; Start 01/10/19 at 04:00 Dextrose (D50w Syringe) 50 ml Q15M PRN IV DECREASED GLUCOSE; Start 01/10/19 at 04:00 Glucagon (Glucagen) 1 mg Q15M PRN IM DECREASED GLUCOSE; Start 01/10/19 at 04:00 Glucose (Glutose) 15 gm Q15M PRN BUCCAL DECREASED GLUCOSE; Start 01/10/19 at 04:00 Guaifenesin/ Dextromethorphan (Robitussin Dm Liquid Cup) 10 ml Q6 PRN PO COUGH Last administered on 01/10/19 16:45; Admin Dose 10 ML; Start 01/10/19 at 10:30 Epoetin Fidencio (Epogen (Esrd)) 3,000 units MoWeFr@17 SC ; Start 01/11/19 at 17:00 Prednisone (Prednisone) 5 mg DAILY PO Last administered on 01/13/19 09:02; Admin Dose 5 MG; Start 01/11/19 at 15:30 Acetaminophen/ Hydrocodone Bitart ([place] ()) 2 tab Q6H PRN PO MODERATE PAIN LEVEL 4-6 Last administered on 01/13/19 05:51; Admin Dose 2 TAB; Start 01/11/19 at 15:30 Sodium Bicarbonate (Sodium Bicarbonate Tab) 650 mg BID PO Last administered on 01/13/19 09:02; Admin Dose 650 MG; Start 01/11/19 at 21:00 Hydralazine HCl (Apresoline) 25 mg Q12 PO Last administered on 01/13/19 09:03; Admin Dose 25 MG; Start 01/11/19 at 21:00 Insulin Glargine (Lantus) 6 units DAILY@2000 SC Last administered on 01/12/19 20:19; Admin Dose 6 UNITS; Start 01/12/19 at 20:00 Insulin Aspart (Novolog Insulin Pen) 3 unit WITH MEALS SC Last administered on 01/12/19 17:15; Admin Dose 3 UNIT; Start 01/12/19 at 12:00 Insulin Aspart (Novolog Insulin Pen) NOVOLOG *MILD* ALGORITHM WITH MEALS BEDTIME SC Last administered on 01/12/19 17:15; Admin Dose 1 UNIT; Start 01/12/19 at 12:00 Linagliptin (Tradjenta) 5 mg DAILY PO Last administered on 01/13/19 09:02; Admin Dose 5 MG; Start 01/12/19 at 11:30 Escitalopram Oxalate (Lexapro) 10 mg DAILY PO Last administered on 01/13/19 09:02; Admin Dose 10 MG; Start 01/12/19 at 11:30 Furosemide (Lasix) 40 mg DAILY IV Last administered on 01/13/19 09:04; Admin Dose 40 MG; Start 01/13/19 at 09:00 Tacrolimus (Prograf) 2 mg Q12 PO Last administered on 01/13/19 09:02; Admin Dose 2 MG; Start 01/12/19 at 21:00 Amoxicillin/ Clavulanate Potassium (Augmentin) 500 mg Q12 PO Last administered on 01/13/19 09:02; Admin Dose 500 MG; Start 01/12/19 at 14:00 Famotidine (Pepcid) 20 mg DAILY PO Last administered on 01/13/19 09:02; Admin Dose 20 MG; Start 01/13/19 at 09:00 ABDELRAHMAN KNOTT Jan 13, 2019 12:23
[2019-01-13] MEDS ORDERED: METOCLOPRAMIDE 10 MG INJ IV PRN (13:00)
--- NOTE | 2019-01-13 16:05 | CONS ---
Assessment/Plan Assessment/Plan Hospital Course (Demo Recall) - Anasarca improved with HD - completing Augmentin for progressive swelling of distal aspect of right ring finger with x-ray showing further of erosion and lucency involving the distal aspect of the distal phalanx of the right ring finger suspicious for osteomyelitis with improved but slight associated soft tissue swelling. ESR 67. - Hx OM of R 4th digit: swelling with new erosive changes and osteopenia of the underlying R 4th distal phalanx, suggestive of osteomyelitis; wound culture grew Serratia on 03/18/18 and Serratia + CoNS (likely colonizer) on 04/04/18 ; Pt declined amputation. ESR 39 on 03/18/2018. S/p Levaquin x 6 weeks, ESR 60 01/13/19 - Hematoma within the right lateral abdominal wall musculature which has developed since the previous study done 12/13/2018 measuring 7.3 x 4.6 cm in cross diameter and extending an acrylic that dimension approximately 10.7 cm from the level of the superior pole of the mcgrath right kidney to just inferior to the right iliac crest per CT 01/12/19 - Calcification of the vas deferens with a persistent hydrocele within the scrotum per CT 01/12/19 - Bacteremia d/t MSSA 12/09/2018, repeat blood cx 12/12/18 NGTD - MRSA and K. pneumoniae in urine cx 12/09/2018 - UA was neg for pyuria - Hx mild subtle increased activity within the upper aspect of LUE, nonspecific, on WBC tagged scan on 04/05/2018 - Hx OM of R 3rd fingertip (XR showed periosteal reaction at the tip of R 3rd distal phalanx, suspicious for OM, MRI showed cellulitis of distal R 4th ph alanx, without OM) and L 2nd fingertip (XR showed cortical irregularity at the tuft of L 2nd distal phalanx with overlying soft tissue defect, suggesting early OM, MRI showed OM at L 2nd distal phalanx with, cellulitis about L 2nd distal phalanx without drainable fluid collection.) - Hx OM of R 2nd finger s/p amputation at proximal phalanx neck, and h/o OM of L 3rd finger s/p amputation at middle and distal phalanges - Acute on chronic renal failure - Hyperkalemia with metabolic acidosis - slowly improving with sodium bicarb - Hx ESRD, was on HD - S/p renal transplant in 2009 (on tacrolimus, mycophenolate and prednisone), chronic renal insufficiency at baseline - DM - Hgb A1c 10.5% - Hx Juan's esophagus and gastritis s/p EGD on 08/12/2017. No H. pylori on Bx - BLE atherosclerosis - Seen by Vascular Surgery during last admit - Onychomycosis, tinea pedis - Seen by Scalder during last admit - Rheumatoid arthritis - Chronic HCV infection - HTN - Dyslipidemia - Hx polysubstance and IV drug use. 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 psychosis - on Lexapro - Abdominal distention and pain Recommendations: - Continue PO Augmentin x 4weeks to complete therapy - Serial ESR - Monitor GI/ fxn Plan was d/w patient and with Dr. Olmstead. Thank you Consultation Date/Type/Reason Admit Date/Time Jan 09, 2019 at 21:14 Initial Consult Date 01/12/19 Type of Consult ID Requesting Provider: LUPE KAPLAN MD Date/Time of Note DATE: 01/13/19 TIME: 15:59 24 HR Interval Summary Free Text/Dictation The patient reports that he had nausea and vomited a small amount earlier today. He denied all other ROS when reviewed. Denied pain. Has remained afebrile with no acute issues reported by nursing. Exam/Review of Systems Exam Vitals Vital Signs Date Temp Pulse Resp B/P (MAP) Pulse Ox O2 O2 Flow FiO2 Time Delivery Rate 01/13/19 98.1 82 18 136/65 98 15:09 (88) 01/11/19 Room Air 08:10 01/10/19 3.0 01:25 Intake and Output 01/12/19 01/12/19 01/13/19 1515:00 23:00 07:00 IntakeIntake Total 800 ml 500 ml OutputOutput Total 1000 ml 1500 ml BalanceBalance -200 ml -1000 ml Allergies Coded Allergies magnesium (Unverified Allergy, Intermediate, 12/09/18) NUMBNESS AND HOT FUSHES Constitutional: alert, oriented, frail (thin) Psych: no complaints, nl mood/affect Head: normocephalic, atraumatic Eyes: nl conjunctiva, nl lids, nl sclera ENMT: nl external ears & nose, nl nasal mucosa & septum, mucosa pink and moist (no thrush) Neck: supple, non-tender Respiratory: clear to auscultation, normal air movement Cardiovascular: regular rate and rhythm, nl pulses, murmurs/extra sounds Gastrointestinal: soft, non-tender, bowel sounds (normoactive ) Musculoskeletal: other (old LUE AVF graft site with no ttp, no bruit no thrill ) Extremities: normal pulses, other (Partial amputation of R 2nd and 3rd fingers and L 2nd and 3rd fingers. R middle finger open to air, dry, without erythema, drainage, swelling, or pain. ); No edema 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: nl mental status, nl speech, nl strength Skin: nl turgor; No rash or lesions Results Result Diagram: 01/13/19 0545 01/13/19 0545 Results 24hrs Laboratory Tests Test 01/12/19 17:07 01/12/19 20:10 01/13/19 05:45 01/13/19 09:09 Bedside Glucose 180 124 72 White Blood Count 4.9 Red Blood Count 2.80 L Hemoglobin 9.1 L Hematocrit 28.3 L Mean Corpuscular 101.1 H Volume Mean Corpuscular 32.5 Hemoglobin Mean Corpuscular 32.2 Hemoglobin Concent Red Cell 15.4 H Distribution Width Platelet Count 203 Mean Platelet Volume 10.5 H Immature 0.400 Granulocytes % Neutrophils % 74.9 Lymphocytes % 12.7 L Monocytes % 11.2 H Eosinophils % 0.4 Basophils % 0.4 Nucleated Red Blood 0.0 Cells % Immature 0.020 Granulocytes # Neutrophils # 3.7 Lymphocytes # 0.6 L Monocytes # 0.6 Eosinophils # 0.0 Basophils # 0.0 Nucleated Red Blood 0.0 Cells # Erythrocyte 60 H Sedimentation Rate Sodium Level 142 Potassium Level 4.7 Chloride Level 108 Carbon Dioxide Level 21 Anion Gap 13 Blood Urea Nitrogen 49 H Creatinine 3.64 H Est Glomerular 17 L Filtrat Rate mL/min Glucose Level 66 #L Calcium Level 9.1 Phosphorus Level 5.1 H Magnesium Level 1.8 Test 01/13/19 12:29 Bedside Glucose 130 Imaging Imaging CXR 01/09/19 IMPRESSION: Mild pulmonary vascular congestion. Small bilateral pleural effusions. Right PICC with tip at the cavoatrial junction. Renal US 01/11/19 IMPRESSION: 1. Mild to moderate hydronephrosis involving the right renal allograft, essentially unchanged from 12/18/2018. US Lower Ext 01/12/19 IMPRESSION: No sonographic evidence for deep venous thrombosis. Abd Pelvis CT 01/12/19 IMPRESSION: 1. There is a hematoma within the right lateral abdominal wall musculature which has developed since the previous study done 12/13/2018 measuring 7.3 x 4.6 cm in cross diameter and extending an acrylic that dimension approximately 10.7 cm from the level of the superior pole of the mcgrath right kidney to just infer ior to the right iliac crest. 2. Atrophic mcgrath kidneys which are largely calcified, unchanged. There is again mild dilatation of the distal mcgrath ureters but the bladder appears unremarkable. A transplanted kidney is again seen within the right iliac fossa and there is again mild caliectasis and increased dilatation of the transplanted renal pelvis over the previous. 3. There is now moderate food debris within the stomach and the bowel pattern reflects an ileus. There is no evidence of bowel obstruction or inflammation. The vermiform appendix is presently poorly seen. Again there is suspicion of a duodenal diverticulum. 4. There is again a moderate amount of free intraperitoneal fluid that measures 12 HU. No free air is evident. 5. Interval increase to the bilateral moderate gravitating pleural fluid accumulations that measure water density. Subsegmental atelectasis is again seen within the lower lobes slightly improved on the left. The heart remains mildly enlarged, there is a small pericardial effusion and coronary artery calcification is again evident. There is extensive vascular calcification seen throughout the abdomen and pelvis most evident peripherally. 6. The osseous elements suggest renal osteodystrophy with multiple Schmorl's nodes evident. 7. Calcification of the vas deferens with a persistent hydrocele within the scrotum. Medications Medication Current Medications IV Flush (NS 3 ml) 3 ml PER PROTOCOL IV ; Start 01/09/19 at 22:00 Ondansetron HCl (Zofran Inj) 4 mg Q6H PRN IV NAUSEA/VOMITING Last administered on 01/13/19at 09:19; Admin Dose 4 MG; Start 01/09/19 at 22:00 Diagnostic Test (Pha) (Accu-Chek) 1 ea 02 XX ; Start 01/11/19 at 02:00 Miscellaneous Information 1 ea NOTE XX ; Start 01/10/19 at 04:00 Glucose (Glutose) 15 gm Q15M PRN PO DECREASED GLUCOSE; Start 01/10/19 at 04:00 Glucose (Glutose) 22.5 gm Q15M PRN PO DECREASED GLUCOSE; Start 01/10/19 at 04:00 Dextrose (D50w Syringe) 25 ml Q15M PRN IV DECREASED GLUCOSE; Start 01/10/19 at 04:00 Dextrose (D50w Syringe) 50 ml Q15M PRN IV DECREASED GLUCOSE; Start 01/10/19 at 04:00 Glucagon (Glucagen) 1 mg Q15M PRN IM DECREASED GLUCOSE; Start 01/10/19 at 04:00 Glucose (Glutose) 15 gm Q15M PRN BUCCAL DECREASED GLUCOSE; Start 01/10/19 at 04 :00 Guaifenesin/ Dextromethorphan (Robitussin Dm Liquid Cup) 10 ml Q6 PRN PO COUGH Last administered on 01/10/19at 16:45; Admin Dose 10 ML; Start 01/10/19 at 10:30 Epoetin Fidencio (Epogen (Esrd)) 3,000 units MoWeFr@17 SC ; Start 01/11/19 at 17:00 Prednisone (Prednisone) 5 mg DAILY PO Last administered on 01/13/19 09:02; Admin Dose 5 MG; Start 01/11/19 at 15:30 Acetaminophen/ Hydrocodone Bitart ([place] ()) 2 tab Q6H PRN PO MODERATE PAIN LEVEL 4-6 Last administered on 01/13/19 05:51; Admin Dose 2 TAB; Start 01/11/19 at 15:30 Sodium Bicarbonate (Sodium Bicarbonate Tab) 650 mg BID PO Last administered on 01/13/19 09:02; Admin Dose 650 MG; Start 01/11/19 at 21:00 Hydralazine HCl (Apresoline) 25 mg Q12 PO Last administered on 01/13/19 09:03; Admin Dose 25 MG; Start 01/11/19 at 21:00 Insulin Glargine (Lantus) 6 units DAILY@2000 SC Last administered on 01/12/19 20:19; Admin Dose 6 UNITS; Start 01/12/19 at 20:00 Insulin Aspart (Novolog Insulin Pen) 3 unit WITH MEALS SC Last administered on 01/12/19at 17:15; Admin Dose 3 UNIT; Start 01/12/19 at 12:00 Insulin Aspart (Novolog Insulin Pen) NOVOLOG *MILD* ALGORITHM WITH MEALS BEDTIME SC Last administered on 01/12/19 17:15; Admin Dose 1 UNIT; Start 01/12/19 at 12:00 Linagliptin (Tradjenta) 5 mg DAILY PO Last administered on 01/13/19 09:02; Admin Dose 5 MG; Start 01/12/19 at 11:30 Escitalopram Oxalate (Lexapro) 10 mg DAILY PO Last administered on 01/13/19 09:02; Admin Dose 10 MG; Start 01/12/19 at 11:30 Furosemide (Lasix) 40 mg DAILY IV Last administered on 01/13/19 09:04; Admin Dose 40 MG; Start 01/13/19 at 09:00 Tacrolimus (Prograf) 2 mg Q12 PO Last administered on 01/13/19 09:02; Admin Dose 2 MG; Start 01/12/19 at 21:00 Amoxicillin/ Clavulanate Potassium (Augmentin) 500 mg Q12 PO Last administered on 01/13/19 09:02; Admin Dose 500 MG; Start 01/12/19 at 14:00 Pantoprazole (Protonix Tab) 40 mg DAILY@06 PO ; Start 01/14/19 at 06:00 Metoclopramide HCl (Reglan) 5 mg Q6H PRN IV NAUSEA AND/OR VOMITING Last ad ministered on 01/13/19 13:16; Admin Dose 5 MG; Start 01/13/19 at 13:00 MAHAD MAHARAJ NP Jan 13, 2019 16:05
[2019-01-13] MEDS: EPOETIN 3000 UNITS/1 ML INJ (ESRD) SC SCH (17:47)
[2019-01-13] MEDS: INSULIN GLARGINE [LANTus] (100 UNITS/ML) SYG SC SCH (20:18)
[2019-01-14] VITALS (13 sets, daily range): BP systolic 119–149; BP diastolic 49–72; PULSE 69–95; RESP 16–18
[2019-01-14] MEDS: HYDROCODONE/APAP (10/325) TAB PO PRN ×3 (00:24→18:05)
[2019-01-14] MEDS: ACCU-CHEK XX SCH (01:16)
[2019-01-14] MEDS: PANTOPRAZOLE (EC) 40 MG TAB PO SCH (06:03)
[2019-01-14] MEDS: INSULIN ASPART [NOVOLOG] 3 ML PEN SC SCH ×7 (08:00→20:47)
--- NOTE | 2019-01-14 08:27 | CONS ---
Assessment/Plan Assessment/Plan Hospital Course (Demo Recall) This is a 58-year-old male who is known to me from prior admission and was admitted again to the hospital with a hyperkalemia. A urological consultation was requested because of a hematoma of the right abdominal wall above the iliac crest on the right side. The patient has also the following problems: -Anemia of acute blood loss, status post blood transfusion -Severe hyperkalemia, s/p Kayexalate. -Bilateral lower extremities and scrotal edema -Right middle finger cellulitis with gangrene, resolving. -Chronic kidney disease stage IV, status post cadaveric kidney transplant in 2009. Diabetes mellitus type 2 with diabetic neuropathy -Atherosclerosis -Hypertension. -History of right fourth finger gangrene -History of Juan's esophagus and severe gastritis. -Chronic HCV infection -Rheumatoid arthritis -History of polysubstance and IV drug use The hematoma that he has is in the right side of the abdomen above the iliac crest. This will be observed and hopefully will subside gradually by itself. If however it causes any problem then it could be drained. Consultation Date/Type/Reason Admit Date/Time Jan 09, 2019 at 21:14 Date of Consultation: Jan 14, 2019 Type of Consult Urology Reason for Consultation Hematoma of the abdominal wall on the right side Requesting Provider: LUPE KAPLAN MD Date/Time of Note DATE: 01/14/19 TIME: 08:18 Hx of Present Illness This is a 58-year-old male who is known to me from prior admission and was admitted again to the hospital with a hyperkalemia. A urological consultation was requested because of a hematoma of the right abdominal wall above the iliac crest on the right side. The patient has also the following problems: -Anemia of acute blood loss, status post blood transfusion -Severe hyperkalemia, s/p Kayexalate. -Bilateral lower extremities and scrotal edema -Right middle finger cellulitis with gangrene, resolving. -Chronic kidney disease stage IV, status post cadaveric kidney transplant in 2009. Diabetes mellitus type 2 with diabetic neuropathy -Atherosclerosis -Hypertension. -History of right fourth finger gangrene -History of Juan's esophagus and severe gastritis. -Chronic HCV infection -Rheumatoid arthritis -History of polysubstance and IV drug use Constitutional: no complaints Eyes: no complaints Respiratory: no complaints; No shortness of breath Cardiovascular: no complaints Gastrointestinal: no complaints; No nausea, No vomiting Genitourinary: No hematuria Musculoskeletal: no complaints Skin: bruising (Over and above the right iliac crest) Neurologic: no complaints Endocrine: no complaints Past Medical History Medical History: diabetes, hypertension, renal disease Home Meds Reported Medications Cefazolin Sodium in 0.9 % NaCl (Cefazolin 2 G/100 ml-0.9% NaCl) 2 Gm/100 Ml Plast..bag, 2 GM IV Q12 01/12/19 Sitagliptin* (Januvia*) 50 Mg Tablet, 50 MG PO DAILY, #30 TAB 12/09/18 Tacrolimus* (Tacrolimus*) 1 Mg Capsule, 3 MG PO QAM, CAP 12/09/18 Tacrolimus* (Tacrolimus*) 1 Mg Capsule, 2 MG PO QHS, CAP 12/09/18 Mycophenolate Sodium* (Mycophenolic Acid*) 180 Mg Tablet.dr, 540 MG PO Q12, TAB 12/09/18 Prednisone* (Prednisone*) 5 Mg Tab, 5 MG PO DAILY, TAB 12/09/18 Glipizide* (Glipizide*) 5 Mg Tablet, 5 MG PO AC BREAKFAST DINNER, TAB 12/09/18 Clonidine Hcl* (Clonidine Hcl*) 0.1 Mg Tab, 0.1 MG PO DAILY, TAB 12/09/18 Insulin Lispro (Humalog) 100 Unit/1 Ml Cartridge, 2-10 UNITS SQ SLIDING SCALE, EA INSURANECE NOT COVERED THIS INSULIN 09/23/18 Medications Current Medications IV Flush (NS 3 ml) 3 ml PER PROTOCOL IV ; Start 01/09/19 at 22:00 Ondansetron HCl (Zofran Inj) 4 mg Q6H PRN IV NAUSEA/VOMITING Last administered on 01/13/19at 09:19; Admin Dose 4 MG; Start 01/09/19 at 22:00 Diagnostic Test (Pha) (Accu-Chek) 1 ea 02 XX Last administered on 01/14/19at 01:16; Admin Dose 1 EA; Start 01/11/19 at 02:00 Miscellaneous Information 1 ea NOTE XX ; Start 01/10/19 at 04:00 Glucose (Glutose) 15 gm Q15M PRN PO DECREASED GLUCOSE; Start 01/10/19 at 04:00 Glucose (Glutose) 22.5 gm Q15M PRN PO DECREASED GLUCOSE; Start 01/10/19 at 04:00 Dextrose (D50w Syringe) 25 ml Q15M PRN IV DECREASED GLUCOSE; Start 01/10/19 at 04:00 Dextrose (D50w Syringe) 50 ml Q15M PRN IV DECREASED GLUCOSE; Start 01/10/19 at 04:00 Glucagon (Glucagen) 1 mg Q15M PRN IM DECREASED GLUCOSE; Start 01/10/19 at 04:00 Glucose (Glutose) 15 gm Q15M PRN BUCCAL DECREASED GLUCOSE; Start 01/10/19 at 04:00 Guaifenesin/ Dextromethorphan (Robitussin Dm Liquid Cup) 10 ml Q6 PRN PO COUGH Last administered on 01/10/19at 16:45; Admin Dose 10 ML; Start 01/10/19 at 10:30 Epoetin Fidencio (Epogen (Esrd)) 3,000 units MoWeFr@17 SC Last administered on 01/13/19 17:47; Admin Dose 3,000 UNITS; Start 01/11/19 at 17:00 Prednisone (Prednisone) 5 mg DAILY PO Last administered on 01/13/19 09:02; Admin Dose 5 MG; Start 01/11/19 at 15:30 Acetaminophen/ Hydrocodone Bitart ([place] (10325)) 2 tab Q6H PRN PO MODERATE PAIN LEVEL 4-6 Last administered on 01/14/19at 00:24; Admin Dose 2 TAB; Start 01/11/19 at 15:30 Sodium Bicarbonate (Sodium Bicarbonate Tab) 650 mg BID PO Last administered on 01/13/19 20:08; Admin Dose 650 MG; Start 01/11/19 at 21:00 Hydralazine HCl (Apresoline) 25 mg Q12 PO Last administered on 01/13/19 20:09; Admin Dose 25 MG; Start 01/11/19 at 21:00 Insulin Glargine (Lantus) 6 units DAILY@2000 SC Last administered on 01/13/19 20:18; Admin Dose 6 UNITS; Start 01/12/19 at 20:00 Insulin Aspart (Novolog Insulin Pen) 3 unit WITH MEALS SC Last administered on 01/12/19 17:15; Admin Dose 3 UNIT; Start 01/12/19 at 12:00 Insulin Aspart (Novolog Insulin Pen) NOVOLOG *MILD* ALGORITHM WITH MEALS BEDTIME SC Last administered on 01/13/19 20:18; Admin Dose 2 UNIT; Start 01/12/19 at 12:00 Linagliptin (Tradjenta) 5 mg DAILY PO Last administered on 01/13/19 09:02; Admin Dose 5 MG; Start 01/12/19 at 11:30 Escitalopram Oxalate (Lexapro) 10 mg DAILY PO Last administered on 01/13/19 09:02; Admin Dose 10 MG; Start 01/12/19 at 11:30 Furosemide (Lasix) 40 mg DAILY IV Last administered on 01/13/19 09:04; Admin Dose 40 MG; Start 01/13/19 at 09:00 Tacrolimus (Prograf) 2 mg Q12 PO Last administered on 01/13/19 20:09; Admin Dose 2 MG; Start 01/12/19 at 21:00 Amoxicillin/ Clavulanate Potassium (Augmentin) 500 mg Q12 PO Last administered on 01/13/19 20:09; Admin Dose 500 MG; Start 01/12/19 at 14:00 Pantoprazole (Protonix Tab) 40 mg DAILY@06 PO Last administered on 01/14/19 06:03; Admin Dose 40 MG; Start 01/14/19 at 06:00 Metoclopramide HCl (Reglan) 5 mg Q6H PRN IV NAUSEA AND/OR VOMITING Last administered on 01/13/19 13:16; Admin Dose 5 MG; Start 01/13/19 at 13:00 Allergies: Coded Allergies: magnesium (Unverified Allergy, Intermediate, 12/09/18) NUMBNESS AND HOT FUSHES Past Surgical History Past Surgical Hx: other (Kidney transplant, dialysis access in the past) Social History Alcohol Use: none Smoking Status: Never smoker Exam/Review of Systems Exam Vitals Vital Signs Date Temp Pulse Resp B/P (MAP) Pulse Ox O2 O2 Flow FiO2 Time Delivery Rate 01/14/19 70 08:16 01/14/19 97.7 18 123/49 93 Room Air 07:11 (73) Intake and Output 01/13/19 01/13/19 01/14/19 1515:00 23:00 07:00 IntakeIntake Total 1100 ml 280 ml OutputOutput Total 950 ml 700 ml BalanceBalance 150 ml -420 ml Constitutional: alert Psych: no complaints Head: normocephalic Neck: supple Respiratory: normal air movement; No wheezing Cardiovascular: regular rate and rhythm; No jugular venous distention (JVD) Gastrointestinal: soft, other (Hematoma right side of the abdomen above the il iac crest.) Genitourinary - Male: other (Mild scrotal edema) Extremities: No calf tenderness 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: nl mental status Skin: nl turgor Results Result Diagram: 01/14/19 0501 01/14/19 0501 Results 24hrs Laboratory Tests Test 01/13/19 09:09 01/13/19 12:29 01/13/19 17:52 01/13/19 20:06 Bedside Glucose 72 130 218 246 H Test 01/14/19 01:11 01/14/19 05:01 Bedside Glucose 90 White Blood Count 3.9 #L Red Blood Count 2.96 L Hemoglobin 9.5 L Hematocrit 30.3 L Mean Corpuscular 102.4 H Volume Mean Corpuscular 32.1 Hemoglobin Mean Corpuscular 31.4 L Hemoglobin Concent Red Cell 15.1 H Distribution Width Platelet Count 205 Mean Platelet Volume 10.7 H Immature 0.300 Granulocytes % Neutrophils % 66.8 Lymphocytes % 20.8 Monocytes % 10.6 Eosinophils % 1.0 Basophils % 0.5 Nucleated Red Blood 0.0 Cells % Immature 0.010 Granulocytes # Neutrophils # 2.6 Lymphocytes # 0.8 Monocytes # 0.4 Eosinophils # 0.0 Basophils # 0.0 Nucleated Red Blood 0.0 Cells # Sodium Level 139 Potassium Level 4.8 Chloride Level 106 Carbon Dioxide Level 23 Anion Gap 10 Blood Urea Nitrogen 49 H Creatinine 3.70 H Est Glomerular 17 L Filtrat Rate mL/min Glucose Level 122 # Calcium Level 9.[address] scan of the abdomen and pelvis: 1. There is a hematoma within the right lateral abdominal wall musculature which has developed since the previous study done 12/13/2018 measuring 7.3 x 4.6 cm in cross diameter and extending an acrylic that dimension approximately 10.7 cm from the level of the superior pole of the [place] right kidney to just inferior to the right iliac crest. 2. Atrophic [place] kidneys which are largely calcified, unchanged. There is again mild dilatation of the distal [place] ureters but the bladder appears unremarkable. A transplanted kidney is again seen within the right iliac fossa and there is again mild caliectasis and increased dilatation of the transplanted renal pelvis over the previous. 3. There is now moderate food debris within the stomach and the bowel pattern reflects an ileus. There is no evidence of bowel obstruction or inflammation. The vermiform appendix is presently poorly seen. Again there is suspicion of a duodenal diverticulum. 4. There is again a moderate amount of free intraperitoneal fluid that measures 12 HU. No free air is evident. 5. Interval increase to the bilateral moderate gravitating pleural fluid accumulations that measure water density. Subsegmental atelectasis is again seen within the lower lobes slightly improved on the left. The heart remains mildly enlarged, there is a small pericardial effusion and coronary artery calcification is again evident. There is extensive vascular calcification seen t hroughout the abdomen and pelvis most evident peripherally. 6. The osseous elements suggest renal osteodystrophy with multiple Schmorl's nodes evident. 7. Calcification of the vas deferens with a persistent hydrocele within the scrotum. Renal ultrasound: 1. Mild to moderate hydronephrosis involving the right renal allograft, essentially unchanged from 12/18/2018. Medications Medication Current Medications IV Flush (NS 3 ml) 3 ml PER PROTOCOL IV ; Start 01/09/19 at 22:00 Ondansetron HCl (Zofran Inj) 4 mg Q6H PRN IV NAUSEA/VOMITING Last administered on 01/13/19at 09:19; Admin Dose 4 MG; Start 01/09/19 at 22:00 Diagnostic Test (Pha) (Accu-Chek) 1 ea 02 XX Last administered on 01/14/19at 01:16; Admin Dose 1 EA; Start 01/11/19 at 02:00 Miscellaneous Information 1 ea NOTE XX ; Start 01/10/19 at 04:00 Glucose (Glutose) 15 gm Q15M PRN PO DECREASED GLUCOSE; Start 01/10/19 at 04:00 Glucose (Glutose) 22.5 gm Q15M PRN PO DECREASED GLUCOSE; Start 01/10/19 at 04:00 Dextrose (D50w Syringe) 25 ml Q15M PRN IV DECREASED GLUCOSE; Start 01/10/19 at 04:00 Dextrose (D50w Syringe) 50 ml Q15M PRN IV DECREASED GLUCOSE; Start 01/10/19 at 04:00 Glucagon (Glucagen) 1 mg Q15M PRN IM DECREASED GLUCOSE; Start 01/10/19 at 04:00 Glucose (Glutose) 15 gm Q15M PRN BUCCAL DECREASED GLUCOSE; Start 01/10/19 at 04:00 Guaifenesin/ Dextromethorphan (Robitussin Dm Liquid Cup) 10 ml Q6 PRN PO COUGH Last administered on 01/10/19 16:45; Admin Dose 10 ML; Start 01/10/19 at 10:30 Epoetin Fidencio (Epogen (Esrd)) 3,000 units MoWeFr@17 SC Last administered on 01/01 17:47; Admin Dose 3,000 UNITS; Start 01/11/19 at 17:00 Prednisone (Prednisone) 5 mg DAILY PO Last administered on 01/13/19 09:02; Admin Dose 5 MG; Start 01/11/19 at 15:30 Acetaminophen/ Hydrocodone Bitart ([place] ()) 2 tab Q6H PRN PO MODERATE PAIN LEVEL 4-6 Last administered on 01/14/19 00:24; Admin Dose 2 TAB; Start 01/11/19 at 15:30 Sodium Bicarbonate (Sodium Bicarbonate Tab) 650 mg BID PO Last administered on 01/13/19 20:08; Admin Dose 650 MG; Start 01/11/19 at 21:00 Hydralazine HCl (Apresoline) 25 mg Q12 PO Last administered on 01/13/19 20:09; Admin Dose 25 MG; Start 01/11/19 at 21:00 Insulin Glargine (Lantus) 6 units DAILY@2000 SC Last administered on 01/13/19 20:18; Admin Dose 6 UNITS; Start 01/12/19 at 20:00 Insulin Aspart (Novolog Insulin Pen) 3 unit WITH MEALS SC Last administered on 01/12/19 17:15; Admin Dose 3 UNIT; Start 01/12/19 at 12:00 Insulin Aspart (Novolog Insulin Pen) NOVOLOG *MILD* ALGORITHM WITH MEALS BEDTIME SC Last administered on 01/13/19 20:18; Admin Dose 2 UNIT; Start 01/12/19 at 12:00 Linagliptin (Tradjenta) 5 mg DAILY PO Last administered on 01/13/19 09:02; Admin Dose 5 MG; Start 01/12/19 at 11:30 Escitalopram Oxalate (Lexapro) 10 mg DAILY PO Last administered on 01/13/19 09:02; Admin Dose 10 MG; Start 01/12/19 at 11:30 Furosemide (Lasix) 40 mg DAILY IV Last administered on 01/13/19 09:04; Admin Dose 40 MG; Start 01/13/19 at 09:00 Tacrolimus (Prograf) 2 mg Q12 PO Last administered on 01/13/19 20:09; Admin Dose 2 MG; Start 01/12/19 at 21:00 Amoxicillin/ Clavulanate Potassium (Augmentin) 500 mg Q12 PO Last administered on 01/13/19 20:09; Admin Dose 500 MG; Start 01/12/19 at 14:00 Pantoprazole (Protonix Tab) 40 mg DAILY@06 PO Last administered on 01/14/19 06:03; Admin Dose 40 MG; Start 01/14/19 at 06:00 Metoclopramide HCl (Reglan) 5 mg Q6H PRN IV NAUSEA AND/OR VOMITING Last administered on 01/13/19 13:16; Admin Dose 5 MG; Start 01/13/19 at 13:00 RAMILA GONZALEZ MD Jan 14, 2019 08:27
[2019-01-14] MEDS: ESCITALOPRAM 10 MG TAB PO SCH (09:15)
[2019-01-14] MEDS: AMOXICILLIN/CLAV 500 MG TAB PO SCH ×2 (09:15→20:45)
[2019-01-14] MEDS: TACROLIMUS 1 MG CAP PO SCH ×2 (09:15→22:09)
[2019-01-14] MEDS: NA BICARBONATE 650 MG TAB PO SCH ×2 (09:15→20:45)
[2019-01-14] MEDS: predniSONE 5 MG TAB PO SCH (09:15)
[2019-01-14] MEDS: LINAGLIPTIN 5 MG TABLET PO SCH (09:16)
[2019-01-14] MEDS: FUROSEMIDE 40 MG TAB PO SCH (09:21)
--- NOTE | 2019-01-14 10:04 | CONS ---
Assessment/Plan Assessment/Plan Assessment/Plan (Daily) is is a 58-year-old male who presented with: 1. Severe hyperkalemia. The patient has chronic renal failure stage IV. This could be secondary to renal failure. Rule out Prograf toxicity. The patient also has metabolic acidosis that could contribute to that. 4. Chronic kidney disease stage IV. The patient has donor renal transplantation in 2009. The patient also has underlying severe diabetic nephropathy. Creatinine has been 3.5-3.6 range since last discharge 5. Non-gap metabolic acidosis likely secondary to renal failure. Rule out obstruction. Ultrasound positive for hydro-nephrosis in the right kidney which is unchanged from the prior ultrasound 6. Anasarca likely secondary to underlying renal failure/ Proteinuria 7. Diabetes. 8. donor renal transplantation in 2009. 9. History of Staphylococcus bacteremia off of mycophenolate. 10. Hypertension. 11. Diabetes. 12. Peripheral vascular disease with amputation. 13. History of hepatitis C. 14 There is a hematoma within the right lateral abdominal wall musculature which has developed since the previous study done 12/13/2018 measuring 7.3 x 4.6 cm in cross diameter and extending an acrylic that dimension approximately 10.7 cm from the level of the superior pole of the [place] right kidney to just in [place] to the right iliac crest. plan -Dr. Palomares was consulted however the hematoma is near the [place] kidneys f up serially -No anticoagulation please -cw With Lasix 40, and Cr is stable -Fluid restriction -cw with sodium bicarb -cw Prograf to 2/.2, continue with prednisone 5 -Hold mycophenolate until the infection is cleared -monitor BMP -Strict i and O Consultation Date/Type/Reason Admit Date/Time Jan 09, 2019 at 21:14 Initial Consult Date Requesting Provider: LUPE KAPLAN MD Date/Time of Note DATE: 01/14/19 TIME: 10:04 24 HR Interval Summary Free Text/Dictation Feels a lot better today feels That the bruising is improving Exam/Review of Systems Exam Vitals Vital Signs Date Temp Pulse Resp B/P (MAP) Pulse Ox O2 O2 Flow FiO2 Time Delivery Rate 01/14/19 70 08:16 01/14/19 97.7 18 123/49 93 Room Air 07:11 (73) Intake and Output 01/13/19 01/13/19 01/14/19 1515:00 23:00 07:00 IntakeIntake Total 1100 ml 280 ml OutputOutput Total 950 ml 700 ml BalanceBalance 150 ml -420 ml Exam GENERAL: The patient is well-developed, well-nourished male, who does not appear to in any acute distress. HEENT: Pupils are equal, round and reactive to light. NECK: Supple. LUNGS: Decreased breath sounds bilaterally. ABDOMEN: Soft, nontender. The patient has positive bowel sounds. No tenderness appreciated at renal transplant site. EXTREMITIES: There is 1 to 2+ edema. Improved GENITOURINARY: The patient has marked scrotal edema. Bruising noted on the right flank upper abdomen fading away Results Result Diagram: 01/14/19 0501 01/14/19 0501 Results 24hrs Laboratory Tests Test 01/13/19 12:29 01/13/19 17:52 01/13/19 20:06 01/14/19 01:11 Bedside Glucose 130 218 246 H 90 Test 01/14/19 05:01 01/14/19 09:09 White Blood Count 3.9 #L Red Blood Count 2.96 L Hemoglobin 9.5 L Hematocrit 30.3 L Mean Corpuscular 102.4 H Volume Mean Corpuscular 32.1 Hemoglobin Mean Corpuscular 31.4 L Hemoglobin Concent Red Cell 15.1 H Distribution Width Platelet Count 205 Mean Platelet Volume 10.7 H Immature 0.300 Granulocytes % Neutrophils % 66.8 Lymphocytes % 20.8 Monocytes % 10.6 Eosinophils % 1.0 Basophils % 0.5 Nucleated Red Blood 0.0 Cells % Immature 0.010 Granulocytes # Neutrophils # 2.6 Lymphocytes # 0.8 Monocytes # 0.4 Eosinophils # 0.0 Basophils # 0.0 Nucleated Red Blood 0.0 Cells # Sodium Level 139 Potassium Level 4.8 Chloride Level 106 Carbon Dioxide Level 23 Anion Gap 10 Blood Urea Nitrogen 49 H Creatinine 3.70 H Est Glomerular 17 L Filtrat Rate mL/min Glucose Level 122 # Calcium Level 9.1 Bedside Glucose 110 Medications Medication Current Medications IV Flush (NS 3 ml) 3 ml PER PROTOCOL IV ; Start 01/09/19 at 22:00 Ondansetron HCl (Zofran Inj) 4 mg Q6H PRN IV NAUSEA/VOMITING Last administered on 01/13/19at 09:19; Admin Dose 4 MG; Start 01/09/19 at 22:00 Diagnostic Test (Pha) (Accu-Chek) 1 ea 02 XX Last administered on 01/14/19at 01:16; Admin Dose 1 EA; Start 01/11/19 at 02:00 Miscellaneous Information 1 ea NOTE XX ; Start 01/10/19 at 04:00 Glucose (Glutose) 15 gm Q15M PRN PO DECREASED GLUCOSE; Start 01/10/19 at 04:00 Glucose (Glutose) 22.5 gm Q15M PRN PO DECREASED GLUCOSE; Start 01/10/19 at 04:00 Dextrose (D50w Syringe) 25 ml Q15M PRN IV DECREASED GLUCOSE; Start 01/10/19 at 04:00 Dextrose (D50w Syringe) 50 ml Q15M PRN IV DECREASED GLUCOSE; Start 01/10/19 at 04:00 Glucagon (Glucagen) 1 mg Q15M PRN IM DECREASED GLUCOSE; Start 01/10/19 at 04:00 Glucose (Glutose) 15 gm Q15M PRN BUCCAL DECREASED GLUCOSE; Start 01/10/19 at 04:00 Guaifenesin/ Dextromethorphan (Robitussin Dm Liquid Cup) 10 ml Q6 PRN PO COUGH Last administered on 01/10/19at 16:45; Admin Dose 10 ML; Start 01/10/19 at 10:30 Epoetin Fidencio (Epogen (Esrd)) 3,000 units MoWeFr@17 SC Last administered on 01/13/19at 17:47; Admin Dose 3,000 UNITS; Start 01/11/19 at 17:00 Prednisone (Prednisone) 5 mg DAILY PO Last administered on 01/14/19 09:15; Admin Dose 5 MG; Start 01/11/19 at 15:30 Acetaminophen/ Hydrocodone Bitart ([place] (10)) 2 tab Q6H PRN PO MODERATE PAIN LEVEL 4-6 Last administered on 01/14/19 09:21; Admin Dose 2 TAB; Start 01/11/19 at 15:30 Sodium Bicarbonate (Sodium Bicarbonate Tab) 650 mg BID PO Last administered on 01/14/19 09:15; Admin Dose 650 MG; Start 01/11/19 at 21:00 Hydralazine HCl (Apresoline) 25 mg Q12 PO Last administered on 01/14/19 09:16; Admin Dose 25 MG; Start 01/11/19 at 21:00 Insulin Glargine (Lantus) 6 units DAILY@2000 SC Last administered on 01/13/19 20:18; Admin Dose 6 UNITS; Start 01/12/19 at 20:00 Insulin Aspart (Novolog Insulin Pen) 3 unit WITH MEALS SC Last administered on 01/14/19 09:30; Admin Dose 3 UNIT; Start 01/12/19 at 12:00 Insulin Aspart (Novolog Insulin Pen) NOVOLOG *MILD* ALGORITHM WITH MEALS BEDT JÚNIOR SC Last administered on 01/13/19 20:18; Admin Dose 2 UNIT; Start 01/12/19 at 12:00 Linagliptin (Tradjenta) 5 mg DAILY PO Last administered on 01/14/19 09:16; Admin Dose 5 MG; Start 01/12/19 at 11:30 Escitalopram Oxalate (Lexapro) 10 mg DAILY PO Last administered on 01/14/19 09:15; Admin Dose 10 MG; Start 01/12/19 at 11:30 Tacrolimus (Prograf) 2 mg Q12 PO Last administered on 01/14/19 09:15; Admin Dose 2 MG; Start 01/12/19 at 21:00 Amoxicillin/ Clavulanate Potassium (Augmentin) 500 mg Q12 PO Last administered on 01/14/19 09:15; Admin Dose 500 MG; Start 01/12/19 at 14:00 Pantoprazole (Protonix Tab) 40 mg DAILY@06 PO Last administered on 01/14/19 06:03; Admin Dose 40 MG; Start 01/14/19 at 06:00 Metoclopramide HCl (Reglan) 5 mg Q6H PRN IV NAUSEA AND/OR VOMITING Last administered on 01/13/19 13:16; Admin Dose 5 MG; Start 01/13/19 at 13:00 Furosemide (Lasix) 40 mg DAILY PO Last administered on 01/14/19 09:21; Admin Dose 40 MG; Start 01/14/19 at 09:00 HARVINDER BLOOD MD Jan 14, 2019 10:04
--- NOTE | 2019-01-14 11:37 | CONS ---
Assessment/Plan Assessment/Plan Hospital Course (Demo Recall) IMPRESSION: 1. Hypertension, currently uncontrolled. 2. Congestive heart failure, diastolic by most recent echo in 12/2018, EF 60- 65%, acute on chronic. 3. Abnormal electrocardiogram with anteroseptal Q's. Assess for acute coronary syndrome. 4. Chronic kidney disease, status post prior cadaveric renal transplant. 5. Rheumatoid arthritis. 6. Diabetes mellitus. 7. Prior gangrenous changes of fingertip, managed conservatively due to the patient's preference. 8. Hyperkalemia, ongoing. 9. Sjayb-le-mvyxfzb renal failure. 10. Anemia, worsening.- s/p transfusions 11. Abdominal hematoma-? etiology Recc: -Tele -follow hgb and evaluate abd hemtoma ? surgical consult -Continue hydralazine -Continue immunosuppresives -Continue abx's and f/u cx data Consultation Date/Type/Reason Admit Date/Time Jan 09, 2019 at 21:14 Initial Consult Date 01/12/19 Type of Consult Cardiology Reason for Consultation HTN Requesting Provider: LUPE KAPLAN MD Date/Time of Note DATE: 01/14/19 TIME: 11:35 Exam/Review of Systems Vital Signs Vitals Vital Signs Date Temp Pulse Resp B/P (MAP) Pulse Ox O2 O2 Flow FiO2 Time Delivery Rate 01/14/19 97.8 72 18 119/53 99 Room Air 11:27 (75) Intake and Output 01/13/19 01/13/19 01/14/19 1515:00 23:00 07:00 IntakeIntake Total 1100 ml 280 ml OutputOutput Total 950 ml 700 ml BalanceBalance 150 ml -420 ml Exam Exam Review of Systems: CONSTITUTIONAL: No fevers, chills. PULMONARY: No sob CARDIOVASCULAR: No chest pain/palpitations GASTROINTESTINAL: No nausea/vomiting. GENITOURINARY: No hematuria/dysuria. MUSCULOSKELETAL: No myagias/arthalgias. PSYCHIATRIC: The patient denies depression. NEUROLOGIC: No weakness Constitutional: alert Psych: no complaints Head: normocephalic ENMT: mucosa pink and moist Neck: supple, jvd (9 cm water) Respiratory: clear to auscultation Cardiovascular: regular rate and rhythm Gastrointestinal: soft, non-tender Musculoskeletal: muscle tone (normal) Extremities: edema (none) 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: other (No focal deficits) Labs Result Diagram: 01/14/19 0501 01/14/19 0501 Results 24hrs Laboratory Tests Test 01/13/19 12:29 01/13/19 17:52 01/13/19 20:06 01/14/19 01:11 Bedside Glucose 130 218 246 H 90 Test 01/14/19 05:01 01/14/19 09:09 White Blood Count 3.9 #L Red Blood Count 2.96 L Hemoglobin 9.5 L Hematocrit 30.3 L Mean Corpuscular 102.4 H Volume Mean Corpuscular 32.1 Hemoglobin Mean Corpuscular 31.4 L Hemoglobin Concent Red Cell 15.1 H Distribution Width Platelet Count 205 Mean Platelet Volume 10.7 H Immature 0.300 Granulocytes % Neutrophils % 66.8 Lymphocytes % 20.8 Monocytes % 10.6 Eosinophils % 1.0 Basophils % 0.5 Nucleated Red Blood 0.0 Cells % Immature 0.010 Granulocytes # Neutrophils # 2.6 Lymphocytes # 0.8 Monocytes # 0.4 Eosinophils # 0.0 Basophils # 0.0 Nucleated Red Blood 0.0 Cells # Sodium Level 139 Potassium Level 4.8 Chloride Level 106 Carbon Dioxide Level 23 Anion Gap 10 Blood Urea Nitrogen 49 H Creatinine 3.70 H Est Glomerular 17 L Filtrat Rate mL/min Glucose Level 122 # Calcium Level 9.1 Bedside Glucose 110 Medications Medications Current Medications IV Flush (NS 3 ml) 3 ml PER PROTOCOL IV ; Start 01/09/19 at 22:00 Ondansetron HCl (Zofran Inj) 4 mg Q6H PRN IV NAUSEA/VOMITING Last administered on 01/13/19at 09:19; Admin Dose 4 MG; Start 01/09/19 at 22:00 Diagnostic Test (Pha) (Accu-Chek) 1 ea 02 XX Last administered on 01/14/19at 01:16; Admin Dose 1 EA; Start 01/11/19 at 02:00 Miscellaneous Information 1 ea NOTE XX ; Start 01/10/19 at 04:00 Glucose (Glutose) 15 gm Q15M PRN PO DECREASED GLUCOSE; Start 01/10/19 at 04:00 Glucose (Glutose) 22.5 gm Q15M PRN PO DECREASED GLUCOSE; Start 01/10/19 at 04 :00 Dextrose (D50w Syringe) 25 ml Q15M PRN IV DECREASED GLUCOSE; Start 01/10/19 at 04:00 Dextrose (D50w Syringe) 50 ml Q15M PRN IV DECREASED GLUCOSE; Start 01/10/19 at 04:00 Glucagon (Glucagen) 1 mg Q15M PRN IM DECREASED GLUCOSE; Start 01/10/19 at 04:00 Glucose (Glutose) 15 gm Q15M PRN BUCCAL DECREASED GLUCOSE; Start 01/10/19 at 04:00 Guaifenesin/ Dextromethorphan (Robitussin Dm Liquid Cup) 10 ml Q6 PRN PO COUGH Last administered on 01/10/19 16:45; Admin Dose 10 ML; Start 01/10/19 at 10:30 Epoetin Fidencio (Epogen (Esrd)) 3,000 units MoWeFr@17 SC Last administered on 01/13/19 17:47; Admin Dose 3,000 UNITS; Start 01/11/19 at 17:00 Prednisone (Prednisone) 5 mg DAILY PO Last administered on 01/14/19 09:15; Admin Dose 5 MG; Start 01/11/19 at 15:30 Acetaminophen/ Hydrocodone Bitart ([place] (10)) 2 tab Q6H PRN PO MODERATE PAIN LEVEL 4-6 Last administered on 01/14/19 09:21; Admin Dose 2 TAB; Start 01/11/19 at 15:30 Sodium Bicarbonate (Sodium Bicarbonate Tab) 650 mg BID PO Last administered on 01/14/19 09:15; Admin Dose 650 MG; Start 01/11/19 at 21:00 Hydralazine HCl (Apresoline) 25 mg Q12 PO Last administered on 01/14/19 09:16; Admin Dose 25 MG; Start 01/11/19 at 21:00 Insulin Glargine (Lantus) 6 units DAILY@2000 SC Last administered on 01/13/19 20:18; Admin Dose 6 UNITS; Start 01/12/19 at 20:00 Insulin Aspart (Novolog Insulin Pen) 3 unit WITH MEALS SC Last administered on 01/14/19 09:30; Admin Dose 3 UNIT; Start 01/12/19 at 12:00 Insulin Aspart (Novolog Insulin Pen) NOVOLOG *MILD* ALGORITHM WITH MEALS BEDTIME SC Last administered on 01/13/19 20:18; Admin Dose 2 UNIT; Start 01/12/19 at 12:00 Linagliptin (Tradjenta) 5 mg DAILY PO Last administered on 01/14/19 09:16; Admin Dose 5 MG; Start 01/12/19 at 11:30 Escitalopram Oxalate (Lexapro) 10 mg DAILY PO Last administered on 01/14/19 09:15; Admin Dose 10 MG; Start 01/12/19 at 11:30 Tacrolimus (Prograf) 2 mg Q12 PO Last administered on 01/14/19 09:15; Admin Dose 2 MG; Start 01/12/19 at 21:00 Amoxicillin/ Clavulanate Potassium (Augmentin) 500 mg Q12 PO Last administered on 01/14/19 09:15; Admin Dose 500 MG; Start 01/12/19 at 14:00 Pantoprazole (Protonix Tab) 40 mg DAILY@06 PO Last administered on 01/14/19 06:03; Admin Dose 40 MG; Start 01/14/19 at 06:00 Metoclopramide HCl (Reglan) 5 mg Q6H PRN IV NAUSEA AND/OR VOMITING Last administered on 01/13/19 13:16; Admin Dose 5 MG; Start 01/13/19 at 13:00 Furosemide (Lasix) 40 mg DAILY PO Last administered on 01/14/19 09:21; Admin Dose 40 MG; Start 01/14/19 at 09:00 ABDELRAHMAN KNOTT 14, 2019 11:37
--- NOTE | 2019-01-14 14:45 | CONS ---
Assessment/Plan Assessment/Plan Hospital Course (Demo Recall) - Anasarca improved with HD - completing Augmentin for progressive swelling of distal aspect of right ring finger with x-ray showing further of erosion and lucency involving the distal aspect of the distal phalanx of the right ring finger suspicious for osteomyelitis with improved but slight associated soft tissue swelling. ESR 67. - Hx OM of R 4th digit: swelling with new erosive changes and osteopenia of the underlying R 4th distal phalanx, suggestive of osteomyelitis; wound culture grew Serratia on 03/18/18 and Serratia + CoNS (likely colonizer) on 04/04/18 ; Pt declined amputation. ESR 39 on 03/18/2018. S/p Levaquin x 6 weeks, ESR 60 01/13/19 - Hematoma within the right lateral abdominal wall musculature which has developed since the previous study done 12/13/2018 measuring 7.3 x 4.6 cm in cross diameter and extending an acrylic that dimension approximately 10.7 cm from the level of the superior pole of the [place] right kidney to just inferior to the right iliac crest per CT 01/12/19 - Calcification of the vas deferens with a persistent hydrocele within the scrotum per CT 01/12/19 - Bacteremia d/t MSSA 12/09/2018, repeat blood cx 12/12/18 NGTD - MRSA and K. pneumoniae in urine cx 12/09/2018 - UA was neg for pyuria - Hx mild subtle increased activity within the upper aspect of LUE, nonspecific, on WBC tagged scan on 04/05/2018 - Hx OM of R 3rd fingertip (XR showed periosteal reaction at the tip of R 3rd distal phalanx, suspicious for OM, MRI showed cellulitis of distal R 4th ph alanx, without OM) and L 2nd fingertip (XR showed cortical irregularity at the tuft of L 2nd distal phalanx with overlying soft tissue defect, suggesting early OM, MRI showed OM at L 2nd distal phalanx with, cellulitis about L 2nd distal phalanx without drainable fluid collection.) - Hx OM of R 2nd finger s/p amputation at proximal phalanx neck, and h/o OM of L 3rd finger s/p amputation at middle and distal phalanges - Acute on chronic renal failure - Hyperkalemia with metabolic acidosis - slowly improving with sodium bicarb - Hx ESRD, was on HD - S/p renal transplant in 2009 (on tacrolimus, mycophenolate and prednisone), chronic renal insufficiency at baseline - DM - Hgb A1c 10.5% - Hx Juan's esophagus and gastritis s/p EGD on 08/12/2017. No H. pylori on Bx - BLE atherosclerosis - Seen by Vascular Surgery during last admit - Onychomycosis, tinea pedis - Seen by Scrum Master during last admit - Rheumatoid arthritis - Chronic HCV infection - HTN - Dyslipidemia - Hx polysubstance and IV drug use. 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 psychosis - on Lexapro - Abdominal distention and pain Recommendations: - Complete PO Augmentin x 4weeks to complete therapy - Serial ESR Consultation Date/Type/Reason Admit Date/Time Jan 09, 2019 at 21:14 Initial Consult Date 01/14/19 Type of Consult ID Requesting Provider: LUPE KAPLAN MD Date/Time of Note DATE: 01/14/19 TIME: 14:40 Exam/Review of Systems Exam Vitals Vital Signs Date Temp Pulse Resp B/P (MAP) Pulse Ox O2 O2 Flow FiO2 Time Delivery Rate 01/14/19 73 12:24 01/14/19 97.8 18 119/53 99 Room Air 11:27 (75) Intake and Output 01/13/19 01/13/19 01/14/19 1515:00 23:00 07:00 IntakeIntake Total 1100 ml 280 ml OutputOutput Total 950 ml 700 ml BalanceBalance 150 ml -420 ml Constitutional: alert, oriented, well developed Psych: no complaints, nl mood/affect Head: normocephalic, atraumatic Eyes: nl conjunctiva, EOMI, nl lids, nl sclera, PERRL Neck: supple, non-tender Respiratory: clear to auscultation, normal air movement Cardiovascular: regular rate and rhythm, nl pulses Gastrointestinal: soft, nl liver, spleen, non-tender Results Result Diagram: 01/14/19 0501 01/14/19 0501 Results 24hrs Laboratory Tests Test 01/13/19 17:52 01/13/19 20:06 01/14/19 01:11 01/14/19 05:01 Bedside Glucose 218 246 H 90 White Blood Count 3.9 #L Red Blood Count 2.96 L Hemoglobin 9.5 L Hematocrit 30.3 L Mean Corpuscular 102.4 H Volume Mean Corpuscular 32.1 Hemoglobin Mean Corpuscular 31.4 L Hemoglobin Concent Red Cell 15.1 H Distribution Width Platelet Count 205 Mean Platelet Volume 10.7 H Immature 0.300 Granulocytes % Neutrophils % 66.8 Lymphocytes % 20.8 Monocytes % 10.6 Eosinophils % 1.0 Basophils % 0.5 Nucleated Red Blood 0.0 Cells % Immature 0.010 Granulocytes # Neutrophils # 2.6 Lymphocytes # 0.8 Monocytes # 0.4 Eosinophils # 0.0 Basophils # 0.0 Nucleated Red Blood 0.0 Cells # Sodium Level 139 Potassium Level 4.8 Chloride Level 106 Carbon Dioxide Level 23 Anion Gap 10 Blood Urea Nitrogen 49 H Creatinine 3.70 H Est Glomerular 17 L Filtrat Rate mL/min Glucose Level 122 # Calcium Level 9.1 Test 01/14/19 09:09 Bedside Glucose 110 Medications Medication Current Medications IV Flush (NS 3 ml) 3 ml PER PROTOCOL IV ; Start 01/09/19 at 22:00 Ondansetron HCl (Zofran Inj) 4 mg Q6H PRN IV NAUSEA/VOMITING Last administered on 01/13/19at 09:19; Admin Dose 4 MG; Start 01/09/19 at 22:00 Diagnostic Test (Pha) (Accu-Chek) 1 ea 02 XX Last administered on 01/14/19at 01:16; Admin Dose 1 EA; Start 01/11/19 at 02:00 Miscellaneous Information 1 ea NOTE XX ; Start 01/10/19 at 04:00 Glucose (Glutose) 15 gm Q15M PRN PO DECREASED GLUCOSE; Start 01/10/19 at 04:00 Glucose (Glutose) 22.5 gm Q15M PRN PO DECREASED GLUCOSE; Start 01/10/19 at 04:00 Dextrose (D50w Syringe) 25 ml Q15M PRN IV DECREASED GLUCOSE; Start 01/10/19 at 04:00 Dextrose (D50w Syringe) 50 ml Q15M PRN IV DECREASED GLUCOSE; Start 01/10/19 at 04:00 Glucagon (Glucagen) 1 mg Q15M PRN IM DECREASED GLUCOSE; Start 01/10/19 at 04:00 Glucose (Glutose) 15 gm Q15M PRN BUCCAL DECREASED GLUCOSE; Start 01/10/19 at 04:00 Guaifenesin/ Dextromethorphan (Robitussin Dm Liquid Cup) 10 ml Q6 PRN PO COUGH Last administered on 01/10/19 16:45; Admin Dose 10 ML; Start 01/10/19 at 10:30 Epoetin Fidencio (Epogen (Esrd)) 3,000 units MoWeFr@17 SC Last administered on 01/13/19 17:47; Admin Dose 3,000 UNITS; Start 01/11/19 at 17:00 Prednisone (Prednisone) 5 mg DAILY PO Last administered on 01/14/19 09:15; Admin Dose 5 MG; Start 01/11/19 at 15:30 Acetaminophen/ Hydrocodone Bitart ([place] ()) 2 tab Q6H PRN PO MODERATE PAIN LEVEL 4-6 Last administered on 01/14/19 09:21; Admin Dose 2 TAB; Start 01/11/19 at 15:30 Sodium Bicarbonate (Sodium Bicarbonate Tab) 650 mg BID PO Last administered on 01/14/19 09:15; Admin Dose 650 MG; Start 01/11/19 at 21:00 Hydralazine HCl (Apresoline) 25 mg Q12 PO Last administered on 01/14/19 09:16; Admin Dose 25 MG; Start 01/11/19 at 21:00 Insulin Glargine (Lantus) 6 units DAILY@2000 SC Last administered on 01/13/19 20:18; Admin Dose 6 UNITS; Start 01/12/19 at 20:00 Insulin Aspart (Novolog Insulin Pen) 3 unit WITH MEALS SC Last administered on 01/14/19 09:30; Admin Dose 3 UNIT; Start 01/12/19 at 12:00 Insulin Aspart (Novolog Insulin Pen) NOVOLOG *MILD* ALGORITHM WITH MEALS BEDTIME SC Last administered on 01/13/19 20:18; Admin Dose 2 UNIT; Start 01/12/19 at 12:00 Linagliptin (Tradjenta) 5 mg DAILY PO Last administered on 01/14/19 09:16; Admin Dose 5 MG; Start 01/12/19 at 11:30 Escitalopram Oxalate (Lexapro) 10 mg DAILY PO Last administered on 01/14/19 09:15; Admin Dose 10 MG; Start 01/12/19 at 11:30 Tacrolimus (Prograf) 2 mg Q12 PO Last administered on 01/14/19 09:15; Admin Dose 2 MG; Start 01/12/19 at 21:00 Amoxicillin/ Clavulanate Potassium (Augmentin) 500 mg Q12 PO Last administered on 01/14/19 09:15; Admin Dose 500 MG; Start 01/12/19 at 14:00 Pantoprazole (Protonix Tab) 40 mg DAILY@06 PO Last administered on 01/14/19 06:03; Admin Dose 40 MG; Start 01/14/19 at 06:00 Metoclopramide HCl (Reglan) 5 mg Q6H PRN IV NAUSEA AND/OR VOMITING Last administered on 01/13/19 13:16; Admin Dose 5 MG; Start 01/13/19 at 13:00 Furosemide (Lasix) 40 mg DAILY PO Last administered on 01/14/19 09:21; Admin Dose 40 MG; Start 01/14/19 at 09:00 PARAMJIT COTTRELL MD Jan 14, 2019 14:45
[2019-01-14] MEDS: INSULIN GLARGINE [LANTus] (100 UNITS/ML) SYG SC SCH (20:54)
[2019-01-14] MEDS: SOD CHLORIDE 0.9% 50 ML IVPB SCH (21:52)
[2019-01-15] VITALS (12 sets, daily range): BP systolic 112–165; BP diastolic 49–95; PULSE 70–79; RESP 18–19
[2019-01-15] MEDS: ACCU-CHEK XX SCH (02:00)
[2019-01-15] MEDS: PANTOPRAZOLE (EC) 40 MG TAB PO SCH (05:47)
[2019-01-15] MEDS: INSULIN ASPART [NOVOLOG] 3 ML PEN SC SCH ×7 (08:00→20:54)
--- NOTE | 2019-01-15 08:40 | CONS ---
Consult Date/Type/Reason Admit Date/Time Jan 09, 2019 at 21:14 Initial Consult Date 01/14/19 Type of Consultation: Urology Reason for Consultation Abdominal wall ecchymosis and hematoma on the right side Requesting Provider: LUPE KAPLAN MD Date/Time of Note DATE: 01/15/19 TIME: 08:38 Subjective Patient is comfortable. He only has pain when the area of the hematoma is touched. Objective Vitals Vital Signs Date Temp Pulse Resp B/P (MAP) Pulse Ox O2 O2 Flow FiO2 Time Delivery Rate 01/15/19 98.0 74 18 150/88 99 Room Air 07:18 (108) Intake and Output 01/14/19 01/14/19 01/15/19 1515:00 23:00 07:00 IntakeIntake Total 575 ml 800 ml BalanceBalance 575 ml 800 ml Exam The hematoma stable. It has not increased as it is still within the marking around it Results/Medications Result Diagram: 01/15/19 0553 01/15/19 0553 Results 24 hrs Laboratory Tests Test 01/14/19 09:09 01/14/19 14:55 01/14/19 17:22 01/14/19 19:38 Bedside Glucose 110 138 190 99 Test 01/14/19 20:40 01/15/19 04:59 01/15/19 05:15 01/15/19 05:53 Bedside Glucose 84 70 99 White Blood Count 2.5 #L Red Blood Count 2.90 L Hemoglobin 9.2 L Hematocrit 29.7 L Mean Corpuscular 102.4 H Volume Mean Corpuscular 31.7 Hemoglobin Mean Corpuscular 31.0 L Hemoglobin Concent Red Cell 15.0 H Distribution Width Platelet Count 173 Mean Platelet Volume 10.4 Immature 0.400 Granulocytes % Neutrophils % 59.3 Lymphocytes % 24.2 Monocytes % 14.1 H Eosinophils % 1.2 Basophils % 0.8 Nucleated Red Blood 0.0 Cells % Immature 0.010 Granulocytes # Neutrophils # 1.5 L Lymphocytes # 0.6 L Monocytes # 0.4 Eosinophils # 0.0 Basophils # 0.0 Nucleated Red Blood 0.0 Cells # Sodium Level 138 Potassium Level 4.0 Chloride Level 104 Carbon Dioxide Level 26 Anion Gap 8 Blood Urea Nitrogen 47 H Creatinine 3.49 H Est Glomerular 18 L Filtrat Rate mL/min Glucose Level 100 Calcium Level 8.9 Test 01/15/19 07:48 Bedside Glucose 111 Home Meds Reported Medications Cefazolin Sodium in 0.9 % NaCl (Cefazolin 2 G/100 ml-0.9% NaCl) 2 Gm/100 Ml Plast..bag, 2 GM IV Q12 01/12/19 Sitagliptin* (Januvia*) 50 Mg Tablet, 50 MG PO DAILY, #30 TAB 12/09/18 Tacrolimus* (Tacrolimus*) 1 Mg Capsule, 3 MG PO QAM, CAP 12/09/18 Tacrolimus* (Tacrolimus*) 1 Mg Capsule, 2 MG PO QHS, CAP 12/09/18 Mycophenolate Sodium* (Mycophenolic Acid*) 180 Mg Tablet.dr, 540 MG PO Q12, TAB 12/09/18 Prednisone* (Prednisone*) 5 Mg Tab, 5 MG PO DAILY, TAB 12/09/18 Glipizide* (Glipizide*) 5 Mg Tablet, 5 MG PO AC BREAKFAST DINNER, TAB 12/09/18 Clonidine Hcl* (Clonidine Hcl*) 0.1 Mg Tab, 0.1 MG PO DAILY, TAB 12/09/18 Insulin Lispro (Humalog) 100 Unit/1 Ml Cartridge, 2-10 UNITS SQ SLIDING SCALE, EA INSURANECE NOT COVERED THIS INSULIN 09/23/18 Medications Current Medications IV Flush (NS 3 ml) 3 ml PER PROTOCOL IV ; Start 01/09/19 at 22:00 Ondansetron HCl (Zofran Inj) 4 mg Q6H PRN IV NAUSEA/VOMITING Last administered on 01/13/19at 09:19; Admin Dose 4 MG; Start 01/09/19 at 22:00 Diagnostic Test (Pha) (Accu-Chek) 1 ea 02 XX Last administered on 01/14/19at 01:16; Admin Dose 1 EA; Start 01/11/19 at 02:00 Miscellaneous Information 1 ea NOTE XX ; Start 01/10/19 at 04:00 Glucose (Glutose) 15 gm Q15M PRN PO DECREASED GLUCOSE; Start 01/10/19 at 04:00 Glucose (Glutose) 22.5 gm Q15M PRN PO DECREASED GLUCOSE; Start 01/10/19 at 04:00 Dextrose (D50w Syringe) 25 ml Q15M PRN IV DECREASED GLUCOSE; Start 01/10/19 at 04:00 Dextrose (D50w Syringe) 50 ml Q15M PRN IV DECREASED GLUCOSE; Start 01/10/19 at 04:00 Glucagon (Glucagen) 1 mg Q15M PRN IM DECREASED GLUCOSE; Start 01/10/19 at 04:00 Glucose (Glutose) 15 gm Q15M PRN BUCCAL DECREASED GLUCOSE; Start 01/10/19 at 04:00 Guaifenesin/ Dextromethorphan (Robitussin Dm Liquid Cup) 10 ml Q6 PRN PO COUGH Last administered on 01/10/19 16:45; Admin Dose 10 ML; Start 01/10/19 at 10:30 Epoetin Fidencio (Epogen (Esrd)) 3,000 units MoWeFr@17 SC Last administered on 01/13/19 17:47; Admin Dose 3,000 UNITS; Start 01/11/19 at 17:00 Prednisone (Prednisone) 5 mg DAILY PO Last administered on 01/14/19 09:15; Admin Dose 5 MG; Start 01/11/19 at 15:30 Acetaminophen/ Hydrocodone Bitart ([place] (10)) 2 tab Q6H PRN PO MODERATE PAIN LEVEL 4-6 Last administered on 01/14/19 18:05; Admin Dose 2 TAB; Start 01/11/19 at 15:30 Sodium Bicarbonate (Sodium Bicarbonate Tab) 650 mg BID PO Last administered on 01/14/19 20:45; Admin Dose 650 MG; Start 01/11/19 at 21:00 Hydralazine HCl (Apresoline) 25 mg Q12 PO Last administered on 01/14/19 20:45; Admin Dose 25 MG; Start 01/11/19 at 21:00 Insulin Glargine (Lantus) 6 units DAILY@2000 SC Last administered on 01/14/19 20:54; Admin Dose 6 UNITS; Start 01/12/19 at 20:00 Insulin Aspart (Novolog Insulin Pen) 3 unit WITH MEALS SC Last administered on 01/15/19 08:00; Admin Dose 3 UNIT; Start 01/12/19 at 12:00 Insulin Aspart (Novolog Insulin Pen) NOVOLOG *MILD* ALGORITHM WITH MEALS BEDTIME SC Last administered on 01/14/19 18:12; Admin Dose 2 UNIT; Start 01/12/19 at 12:00 Linagliptin (Tradjenta) 5 mg DAILY PO Last administered on 01/14/19 09:16; Admin Dose 5 MG; Start 01/12/19 at 11:30 Escitalopram Oxalate (Lexapro) 10 mg DAILY PO Last administered on 01/14/19 09:15; Admin Dose 10 MG; Start 01/12/19 at 11:30 Tacrolimus (Prograf) 2 mg Q12 PO Last administered on 01/14/19 22:09; Admin Dose 2 MG; Start 01/12/19 at 21:00 Amoxicillin/ Clavulanate Potassium (Augmentin) 500 mg Q12 PO Last administered on 01/14/19 20:45; Admin Dose 500 MG; Start 01/12/19 at 14:00 Pantoprazole (Protonix Tab) 40 mg DAILY@06 PO Last administered on 01/15/19 05:47; Admin Dose 40 MG; Start 01/14/19 at 06:00 Metoclopramide HCl (Reglan) 5 mg Q6H PRN IV NAUSEA AND/OR VOMITING Last ad ministered on 01/13/19 13:16; Admin Dose 5 MG; Start 01/13/19 at 13:00 Furosemide (Lasix) 40 mg DAILY PO Last administered on 01/14/19 09:21; Admin Dose 40 MG; Start 01/14/19 at 09:00 Sodium Chloride 50 ml @ 100 mls/hr Q12 IVPB Last administered on 01/14/19 21:52; Admin Dose 100 MLS/HR; Start 01/14/19 at 21:00; Stop 01/29/19 at 23:00 Assessment/Plan Hospital Course (Demo Recall) This is a 58-year-old male who is known to me from prior admission and was admi tted again to the hospital with a hyperkalemia. A urological consultation was requested because of a hematoma of the right abdominal wall above the iliac crest on the right side. The patient has also the following problems: -Anemia of acute blood loss, status post blood transfusion -Severe hyperkalemia, s/p Kayexalate. -Bilateral lower extremities and scrotal edema -Right middle finger cellulitis with gangrene, resolving. -Chronic kidney disease stage IV, status post cadaveric kidney transplant in 2009. Diabetes mellitus type 2 with diabetic neuropathy -Atherosclerosis -Hypertension. -History of right fourth finger gangrene -History of Juan's esophagus and severe gastritis. -Chronic HCV infection -Rheumatoid arthritis -History of polysubstance and IV drug use The hematoma that he has is in the right side of the abdomen is stable. No sign of infection at the present. Plan just observe RAMILA GONZALEZ MD Jan 15, 2019 08:40
[2019-01-15] MEDS: predniSONE 5 MG TAB PO SCH (09:04)
[2019-01-15] MEDS: AMOXICILLIN/CLAV 500 MG TAB PO SCH ×2 (09:05→21:55)
[2019-01-15] MEDS: LINAGLIPTIN 5 MG TABLET PO SCH (09:05)
[2019-01-15] MEDS: TACROLIMUS 1 MG CAP PO SCH ×2 (09:05→20:53)
[2019-01-15] MEDS: ESCITALOPRAM 10 MG TAB PO SCH (09:05)
[2019-01-15] MEDS: NA BICARBONATE 650 MG TAB PO SCH ×2 (09:05→20:53)
[2019-01-15] MEDS: HYDROCODONE/APAP (10/325) TAB PO PRN ×2 (09:05→16:43)
[2019-01-15] MEDS: FUROSEMIDE 40 MG TAB PO SCH (09:06)
[2019-01-15] MEDS: SOD CHLORIDE 0.9% 50 ML IVPB SCH ×2 (09:07→20:47)
--- NOTE | 2019-01-15 13:50 | CONS ---
Assessment/Plan Assessment/Plan Hospital Course (Demo Recall) - Anasarca improved with HD - Endocarditis - Dr. Olmstead rec'd call from [facility] 01/15/19 regarding this - completing Augmentin for progressive swelling of distal aspect of right ring finger with x-ray showing further of erosion and lucency involving the distal aspect of the distal phalanx of the right ring finger suspicious for osteomyelitis with improved but slight associated soft tissue swelling. ESR 67. - Hx OM of R 4th digit: swelling with new erosive changes and osteopenia of the underlying R 4th distal phalanx, suggestive of osteomyelitis; wound culture grew Serratia on 03/18/18 and Serratia + CoNS (likely colonizer) on 04/04/18 ; Pt declined amputation. ESR 39 on 03/18/2018. S/p Levaquin x 6 weeks, ESR 60 01/13/19 - Hematoma within the right lateral abdominal wall musculature which has developed since the previous study done 12/13/2018 measuring 7.3 x 4.6 cm in cross diameter and extending an acrylic that dimension approximately 10.7 cm from the level of the superior pole of the port gamble right kidney to just inferior to the right iliac crest per CT 01/12/19 - Calcification of the vas deferens with a persistent hydrocele within the scrotum per CT 01/12/19 - Bacteremia d/t MSSA 12/09/2018, repeat blood cx 12/12/18 NGTD - MRSA and K. pneumoniae in urine cx 12/09/2018 - UA was neg for pyuria - Hx mild subtle increased activity within the upper aspect of LUE, nonspecific, on WBC tagged scan on 04/05/2018 - Hx OM of R 3rd fingertip (XR showed periosteal reaction at the tip of R 3rd d istal phalanx, suspicious for OM, MRI showed cellulitis of distal R 4th phalanx, without OM) and L 2nd fingertip (XR showed cortical irregularity at the tuft of L 2nd distal phalanx with overlying soft tissue defect, suggesting early OM, MRI showed OM at L 2nd distal phalanx with, cellulitis about L 2nd distal phalanx without drainable fluid collection.) - Hx OM of R 2nd finger s/p amputation at proximal phalanx neck, and h/o OM of L 3rd finger s/p amputation at middle and distal phalanges - Acute on chronic renal failure - Hyperkalemia with metabolic acidosis - slowly improving with sodium bicarb - Hx ESRD, was on HD - S/p renal transplant in 2009 (on tacrolimus, mycophenolate and prednisone), chronic renal insufficiency at baseline - DM - Hgb A1c 10.5% - Hx Juan's esophagus and gastritis s/p EGD on 08/12/2017. No H. pylori on Bx - BLE atherosclerosis - Seen by Vascular Surgery during last admit - Onychomycosis, tinea pedis - Seen by [facility] during last admit - Rheumatoid arthritis - Chronic HCV infection - HTN - Dyslipidemia - Hx polysubstance and IV drug use. 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 psychosis - on Lexapro - Abdominal distention and pain Recommendations: - Complete PO Augmentin x 4weeks to complete therapy - Start cefazolin (01/15/19 - ) for endocarditis - ordered - Serial ESR Plan was d/w patient and with Dr. Olmstead. Thank you Consultation Date/Type/Reason Admit Date/Time Jan 09, 2019 at 21:14 Initial Consult Date 01/12/19 Type of Consult ID Requesting Provider: LUPE KAPLAN MD Date/Time of Note DATE: 01/15/19 TIME: 13:49 24 HR Interval Summary Free Text/Dictation Patient states he is tired. He denied other ROS. He has remained afebrile with no acute issues reported by nursing. Exam/Review of Systems Exam Vitals Vital Signs Date Temp Pulse Resp B/P (MAP) Pulse Ox O2 O2 Flow FiO2 Time Delivery Rate 01/15/19 76 12:15 01/15/19 98.0 18 136/60 99 Room Air 11:05 (85) Intake and Output 01/14/19 01/14/19 01/15/19 1515:00 23:00 07:00 IntakeIntake Total 575 ml 800 ml BalanceBalance 575 ml 800 ml Allergies Coded Allergies magnesium (Unverified Allergy, Intermediate, 12/09/18) NUMBNESS AND HOT FUSHES Exam Constitutional: alert, oriented, frail (thin) Psych: no complaints, nl mood/affect Head: normocephalic, atraumatic Eyes: nl conjunctiva, nl lids, nl sclera ENMT: nl external ears & nose, nl nasal mucosa & septum, mucosa pink and moist (no thrush) Neck: supple, non-tender Respiratory: clear to auscultation, normal air movement Cardiovascular: regular rate and rhythm, nl pulses, murmurs/extra sounds Gastrointestinal: soft, non-tender, bowel sounds (normoactive ) Musculoskeletal: other (old LUE AVF graft site with no ttp, no bruit no thrill ) Extremities: normal pulses, other (Partial amputation of R 2nd and 3rd fingers and L 2nd and 3rd fingers. R middle finger open to air, dry, without erythema, drainage, swelling, or pain. ); No edema 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: nl mental status, nl speech, nl strength Skin: nl turgor; other (pale) No rash or lesions Results Result Diagram: 01/15/19 0553 01/15/19 0553 Results 24hrs Laboratory Tests Test 01/14/19 14:55 01/14/19 17:22 01/14/19 19:38 01/14/19 20:40 Bedside Glucose 138 190 99 84 Test 01/15/19 04:46 01/15/19 04:59 01/15/19 05:15 01/15/19 05:53 Bedside Glucose 62 L 70 99 White Blood Count 2.5 #L Red Blood Count 2.90 L Hemoglobin 9.2 L Hematocrit 29.7 L Mean Corpuscular 102.4 H Volume Mean Corpuscular 31.7 Hemoglobin Mean Corpuscular 31.0 L Hemoglobin Concent Red Cell 15.0 H Distribution Width Platelet Count 173 Mean Platelet Volume 10.4 Immature 0.400 Granulocytes % Neutrophils % 59.3 Lymphocytes % 24.2 Monocytes % 14.1 H Eosinophils % 1.2 Basophils % 0.8 Nucleated Red Blood 0.0 Cells % Immature 0.010 Granulocytes # Neutrophils # 1.5 L Lymphocytes # 0.6 L Monocytes # 0.4 Eosinophils # 0.0 Basophils # 0.0 Nucleated Red Blood 0.0 Cells # Sodium Level 138 Potassium Level 4.0 Chloride Level 104 Carbon Dioxide Level 26 Anion Gap 8 Blood Urea Nitrogen 47 H Creatinine 3.49 H Est Glomerular 18 L Filtrat Rate mL/min Glucose Level 100 Calcium Level 8.9 Test 01/15/19 07:48 01/15/19 11:57 Bedside Glucose 111 86 Medications Medication Current Medications IV Flush (NS 3 ml) 3 ml PER PROTOCOL IV ; Start 01/09/19 at 22:00 Ondansetron HCl (Zofran Inj) 4 mg Q6H PRN IV NAUSEA/VOMITING Last administered on 01/13/19at 09:19; Admin Dose 4 MG; Start 01/09/19 at 22:00 Diagnostic Test (Pha) (Accu-Chek) 1 ea 02 XX Last administered on 01/14/19at 01:16; Admin Dose 1 EA; Start 01/11/19 at 02:00 Miscellaneous Information 1 ea NOTE XX ; Start 01/10/19 at 04:00 Glucose (Glutose) 15 gm Q15M PRN PO DECREASED GLUCOSE; Start 01/10/19 at 04:00 Glucose (Glutose) 22.5 gm Q15M PRN PO DECREASED GLUCOSE; Start 01/10/19 at 04:00 Dextrose (D50w Syringe) 25 ml Q15M PRN IV DECREASED GLUCOSE; Start 01/10/19 at 04:00 Dextrose (D50w Syringe) 50 ml Q15M PRN IV DECREASED GLUCOSE; Start 01/10/19 at 04:00 Glucagon (Glucagen) 1 mg Q15M PRN IM DECREASED GLUCOSE; Start 01/10/19 at 04:00 Glucose (Glutose) 15 gm Q15M PRN BUCCAL DECREASED GLUCOSE; Start 01/10/19 at 04:00 Guaifenesin/ Dextromethorphan (Robitussin Dm Liquid Cup) 10 ml Q6 PRN PO COUGH Last administered on 01/10/19at 16:45; Admin Dose 10 ML; Start 01/10/19 at 10:30 Epoetin Fidencio (Epogen (Esrd)) 3,000 units MoWeFr@17 SC Last administered on 01/01 01/19at 17:47; Admin Dose 3,000 UNITS; Start 01/11/19 at 17:00 Prednisone (Prednisone) 5 mg DAILY PO Last administered on 01/15/19at 09:04; Admin Dose 5 MG; Start 01/11/19 at 15:30 Acetaminophen/ Hydrocodone Bitart ([place] ()) 2 tab Q6H PRN PO MODERATE PAIN LEVEL 4-6 Last administered on 01/15/19at 09:05; Admin Dose 2 TAB; Start 01/11/19 at 15:30 Sodium Bicarbonate (Sodium Bicarbonate Tab) 650 mg BID PO Last administered on 01/15/19 09:05; Admin Dose 650 MG; Start 01/11/19 at 21:00 Hydralazine HCl (Apresoline) 25 mg Q12 PO Last administered on 01/15/19 09:06; Admin Dose 25 MG; Start 01/11/19 at 21:00 Insulin Glargine (Lantus) 6 units DAILY@2000 SC Last administered on 01/14/19 20:54; Admin Dose 6 UNITS; Start 01/12/19 at 20:00 Insulin Aspart (Novolog Insulin Pen) 3 unit WITH MEALS SC Last administered on 01/15/19 12:05; Admin Dose 3 UNIT; Start 01/12/19 at 12:00 Insulin Aspart (Novolog Insulin Pen) NOVOLOG *MILD* ALGORITHM WITH MEALS BEDTIME SC Last administered on 01/14/19 18:12; Admin Dose 2 UNIT; Start 01/12/19 at 12:00 Linagliptin (Tradjenta) 5 mg DAILY PO Last administered on 01/15/19 09:05; Admin Dose 5 MG; Start 01/12/19 at 11:30 Escitalopram Oxalate (Lexapro) 10 mg DAILY PO Last administered on 01/15/19 09:05; Admin Dose 10 MG; Start 01/12/19 at 11:30 Tacrolimus (Prograf) 2 mg Q12 PO Last administered on 01/15/19 09:05; Admin Dose 2 MG; Start 01/12/19 at 21:00 Amoxicillin/ Clavulanate Potassium (Augmentin) 500 mg Q12 PO Last administered on 01/15/19 09:05; Admin Dose 500 MG; Start 01/12/19 at 14:00 Pantoprazole (Protonix Tab) 40 mg DAILY@06 PO Last administered on 01/15/19 05:47; Admin Dose 40 MG; Start 01/14/19 at 06:00 Metoclopramide HCl (Reglan) 5 mg Q6H PRN IV NAUSEA AND/OR VOMITING Last administered on 01/13/19 13:16; Admin Dose 5 MG; Start 01/13/19 at 13:00 Furosemide (Lasix) 40 mg DAILY PO Last administered on 01/15/19 09:06; Admin Dose 40 MG; Start 01/14/19 at 09:00 Sodium Chloride 50 ml @ 100 mls/hr Q12 IVPB Last administered on 01/15/19at 09:07; Admin Dose 100 MLS/HR; Start 01/14/19 at 21:00; Stop 01/29/19 at 23:00 MAHAD MAHARAJ NP Jan 15, 2019 13:50
--- NOTE | 2019-01-15 15:53 | CONS ---
Assessment/Plan Assessment/Plan Hospital Course (Demo Recall) IMPRESSION: 1. Hypertension, currently uncontrolled. 2. Congestive heart failure, diastolic by most recent echo in 12/2018, EF 60- 65%, acute on chronic. 3. Abnormal electrocardiogram with anteroseptal Q's. Assess for acute coronary syndrome. 4. Chronic kidney disease, status post prior cadaveric renal transplant. 5. Rheumatoid arthritis. 6. Diabetes mellitus. 7. Prior gangrenous changes of fingertip, managed conservatively due to the patient's preference. 8. Hyperkalemia, ongoing. 9. [id number] renal failure. 10. Anemia, worsening.- s/p transfusions 11. Abdominal hematoma-? etiology Recc: -Tele -Continue hydralazine -Continue immunosuppresives -Continue abx's and f/u cx data -Contiue daily lasix -Continue steroids Consultation Date/Type/Reason Admit Date/Time Jan 09, 2019 at 21:14 Initial Consult Date 01/12/19 Type of Consult Cardiology Reason for Consultation HTN Requesting Provider: LUPE KAPLAN MD Date/Time of Note DATE: 01/15/19 TIME: 15:49 Exam/Review of Systems Vital Signs Vitals Vital Signs Date Temp Pulse Resp B/P (MAP) Pulse Ox O2 O2 Flow FiO2 Time Delivery Rate 01/15/19 98.4 78 18 147/63 99 Room Air 15:07 (91) Intake and Output 01/14/19 01/14/19 01/15/19 1515:00 23:00 07:00 IntakeIntake Total 575 ml 800 ml BalanceBalance 575 ml 800 ml Exam Exam Review of Systems: CONSTITUTIONAL: No fevers, chills. PULMONARY: No sob CARDIOVASCULAR: No chest pain/palpitations GASTROINTESTINAL: No nausea/vomiting. GENITOURINARY: No hematuria/dysuria. MUSCULOSKELETAL: No myagias/arthalgias. PSYCHIATRIC: The patient denies depression. NEUROLOGIC: No weakness Constitutional: alert Psych: no complaints Head: normocephalic ENMT: mucosa pink and moist Neck: supple, jvd Respiratory: diminished breath sounds Cardiovascular: regular rate and rhythm Gastrointestinal: soft, non-tender Musculoskeletal: muscle tone (normal) Extremities: edema (none), other (Finger healing with some necrotic tissue) 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: other (No focal deficits) Labs Result Diagram: 01/15/19 0553 01/15/19 0553 Results 24hrs Laboratory Tests Test 01/14/19 17:22 01/14/19 19:38 01/14/19 20:40 01/15/19 04:46 Bedside Glucose 190 99 84 62 L Test 01/15/19 04:59 01/15/19 05:15 01/15/19 05:53 01/15/19 07:48 Bedside Glucose 70 99 111 White Blood Count 2.5 #L Red Blood Count 2.90 L Hemoglobin 9.2 L Hematocrit 29.7 L Mean Corpuscular 102.4 H Volume Mean Corpuscular 31.7 Hemoglobin Mean Corpuscular 31.0 L Hemoglobin Concent Red Cell 15.0 H Distribution Width Platelet Count 173 Mean Platelet Volume 10.4 Immature 0.400 Granulocytes % Neutrophils % 59.3 Lymphocytes % 24.2 Monocytes % 14.1 H Eosinophils % 1.2 Basophils % 0.8 Nucleated Red Blood 0.0 Cells % Immature 0.010 Granulocytes # Neutrophils # 1.5 L Lymphocytes # 0.6 L Monocytes # 0.4 Eosinophils # 0.0 Basophils # 0.0 Nucleated Red Blood 0.0 Cells # Sodium Level 138 Potassium Level 4.0 Chloride Level 104 Carbon Dioxide Level 26 Anion Gap 8 Blood Urea Nitrogen 47 H Creatinine 3.49 H Est Glomerular 18 L Filtrat Rate mL/min Glucose Level 100 Calcium Level 8.9 Test 01/15/19 11:57 Bedside Glucose 86 Medications Medications Current Medications IV Flush (NS 3 ml) 3 ml PER PROTOCOL IV ; Start 01/09/19 at 22:00 Ondansetron HCl (Zofran Inj) 4 mg Q6H PRN IV NAUSEA/VOMITING Last administered on 01/13/19at 09:19; Admin Dose 4 MG; Start 01/09/19 at 22:00 Diagnostic Test (Pha) (Accu-Chek) 1 ea 02 XX Last administered on 01/14/19at 01:16; Admin Dose 1 EA; Start 01/11/19 at 02:00 Miscellaneous Information 1 ea NOTE XX ; Start 01/10/19 at 04:00 Glucose (Glutose) 15 gm Q15M PRN PO DECREASED GLUCOSE; Start 01/10/19 at 04:00 Glucose (Glutose) 22.5 gm Q15M PRN PO DECREASED GLUCOSE; Start 01/10/19 at 04:00 Dextrose (D50w Syringe) 25 ml Q15M PRN IV DECREASED GLUCOSE; Start 01/10/19 at 04:00 Dextrose (D50w Syringe) 50 ml Q15M PRN IV DECREASED GLUCOSE; Start 01/10/19 at 04:00 Glucagon (Glucagen) 1 mg Q15M PRN IM DECREASED GLUCOSE; Start 01/10/19 at 04:00 Glucose (Glutose) 15 gm Q15M PRN BUCCAL DECREASED GLUCOSE; Start 01/10/19 at 04:00 Guaifenesin/ Dextromethorphan (Robitussin Dm Liquid Cup) 10 ml Q6 PRN PO COUGH Last administered on 01/10/19 16:45; Admin Dose 10 ML; Start 01/10/19 at 10:30 Epoetin Fidencio (Epogen (Esrd)) 3,000 units MoWeFr@17 SC Last administered on 01/13/19 17:47; Admin Dose 3,000 UNITS; Start 01/11/19 at 17:00 Prednisone (Prednisone) 5 mg DAILY PO Last administered on 01/15/19 09:04; Admin Dose 5 MG; Start 01/11/19 at 15:30 Acetaminophen/ Hydrocodone Bitart ([place] ()) 2 tab Q6H PRN PO MODERATE PAIN LEVEL 4-6 Last administered on 01/15/19 09:05; Admin Dose 2 TAB; Start 01/11/19 at 15:30 Sodium Bicarbonate (Sodium Bicarbonate Tab) 650 mg BID PO Last administered on 01/15/19 09:05; Admin Dose 650 MG; Start 01/11/19 at 21:00 Hydralazine HCl (Apresoline) 25 mg Q12 PO Last administered on 01/15/19 09:06; Admin Dose 25 MG; Start 01/11/19 at 21:00 Insulin Glargine (Lantus) 6 units DAILY@2000 SC Last administered on 01/14/19 20:54; Admin Dose 6 UNITS; Start 01/12/19 at 20:00 Insulin Aspart (Novolog Insulin Pen) 3 unit WITH MEALS SC Last administered on 01/15/19 12:05; Admin Dose 3 UNIT; Start 01/12/19 at 12:00 Insulin Aspart (Novolog Insulin Pen) NOVOLOG *MILD* ALGORITHM WITH MEALS BEDTIME SC Last administered on 3/14/19at 18:12; Admin Dose 2 UNIT; Start 01/12/19 at 12:00 Linagliptin (Tradjenta) 5 mg DAILY PO Last administered on 01/15/19 09:05; Admin Dose 5 MG; Start 01/12/19 at 11:30 Escitalopram Oxalate (Lexapro) 10 mg DAILY PO Last administered on 01/15/19 09:05; Admin Dose 10 MG; Start 01/12/19 at 11:30 Tacrolimus (Prograf) 2 mg Q12 PO Last administered on 01/15/19 09:05; Admin Dose 2 MG; Start 01/12/19 at 21:00 Amoxicillin/ Clavulanate Potassium (Augmentin) 500 mg Q12 PO Last administered on 01/15/19 09:05; Admin Dose 500 MG; Start 01/12/19 at 14:00 Pantoprazole (Protonix Tab) 40 mg DAILY@06 PO Last administered on 01/15/19 05:47; Admin Dose 40 MG; Start 01/14/19 at 06:00 Metoclopramide HCl (Reglan) 5 mg Q6H PRN IV NAUSEA AND/OR VOMITING Last administered on 01/13/19 13:16; Admin Dose 5 MG; Start 01/13/19 at 13:00 Furosemide (Lasix) 40 mg DAILY PO Last administered on 01/15/19 09:06; Admin Dose 40 MG; Start 01/14/19 at 09:00 Sodium Chloride 50 ml @ 100 mls/hr Q12 IVPB Last administered on 01/15/19 09:07; Admin Dose 100 MLS/HR; Start 01/14/19 at 21:00; Stop 01/29/19 at 23:00 Cefazolin Sodium/ Dextrose 50 ml @ 100 mls/hr ONCE ONCE IVPB ; Start 01/15/19 at 16:30; Stop 01/15/19 at 16:59 Cefazolin Sodium 50 ml @ 100 mls/hr Q12 IVPB ; Start 01/16/19 at 01:00 ABDELRAHMAN KNOTT 15, 2019 15:53
[2019-01-15] MEDS ORDERED: CEFAZOLIN 2 GM/50 ML (PMX) 50 ML IVPB ONE (16:30)
[2019-01-15] MEDS: EPOETIN 3000 UNITS/1 ML INJ (ESRD) SC SCH (17:00)
--- NOTE | 2019-01-15 18:23 | PN ---
Date/Time of Note Date/Time of Note DATE: late entry for 01/14/19 TIME: pt is seen at at 14:45 Assessment/Plan VTE Prophylaxis Risk score (from Ns)>0 risk: 3 SCD applied (from [facility] [place]): No SCD contraindicated: patient refusal Pharmacological prophylaxis: NA/contraindicated Pharm contraindication: bleeding Lines/Catheters IV [facility]ter Type (from [facility]): PICC Line Central line still needed: Yes Assessment/Plan Hospital Course Patient stated that he feels weak, complains of mild nausea, hemoglobin is 9.5, continue current care. Assessment/Plan -Renal hematoma CT of the abdomen and pelvis, Dr. Noguera is following in urolo gy consultation. -Anemia of acute blood loss, status post blood transfusion, continue to monitor H&H. -Severe hyperkalemia, s/p Kayexalate. Dr. Fofana is following in nephrology consultation. -Bilateral lower extremities and scrotal edema -Right middle finger cellulitis with gangrene, resolving. Dr. Olmstead is following in infection disease consultation. -Chronic kidney disease stage IV, status post cadaveric kidney transplant in 2009. -Diabetes mellitus type 2 with diabetic neuropathy, hemoglobin A1c is 6.7. Continue Tradjenta, Lantus and NovoLog. -Atherosclerosis -Hypertension. -History of right fourth finger gangrene -History of Juan's esophagus and severe gastritis. -Chronic HCV infection -Rheumatoid arthritis -History of polysubstance and IV drug use Further recommendations based on clinical course. Plan of care discussed with Dr. Maier. Result Diagram: 01/15/19 0553 01/15/19 0553 Results 24hrs Laboratory Tests Test 01/14/19 19:38 01/14/19 20:40 01/15/19 04:46 01/15/19 04:59 Bedside Glucose 99 84 62 L 70 Test 01/15/19 05:15 01/15/19 05:53 01/15/19 07:48 01/15/19 11:57 Bedside Glucose 99 111 86 White Blood Count 2.5 #L Red Blood Count 2.90 L Hemoglobin 9.2 L Hematocrit 29.7 L Mean Corpuscular 102.4 H Volume Mean Corpuscular 31.7 Hemoglobin Mean Corpuscular 31.0 L Hemoglobin Concent Red Cell 15.0 H Distribution Width Platelet Count 173 Mean Platelet Volume 10.4 Immature 0.400 Granulocytes % Neutrophils % 59.3 Lymphocytes % 24.2 Monocytes % 14.1 H Eosinophils % 1.2 Basophils % 0.8 Nucleated Red Blood 0.0 Cells % Immature 0.010 Granulocytes # Neutrophils # 1.5 L Lymphocytes # 0.6 L Monocytes # 0.4 Eosinophils # 0.0 Basophils # 0.0 Nucleated Red Blood 0.0 Cells # Sodium Level 138 Potassium Level 4.0 Chloride Level 104 Carbon Dioxide Level 26 Anion Gap 8 Blood Urea Nitrogen 47 H Creatinine 3.49 H Est Glomerular 18 L Filtrat Rate mL/min Glucose Level 100 Calcium Level 8.9 Test 01/15/19 17:42 Bedside Glucose 190 Exam/Review of Systems Exam Vitals Vital Signs Date Temp Pulse Resp B/P (MAP) Pulse Ox O2 O2 Flow FiO2 Time Delivery Rate 01/15/19 79 16:14 01/15/19 98.4 18 147/63 99 Room Air 15:07 (91) Intake and Output 01/14/19 01/14/19 01/15/19 1515:00 23:00 07:00 IntakeIntake Total 575 ml 800 ml BalanceBalance 575 ml 800 ml Exam Constitutional: alert, oriented Neck: supple Respiratory: clear to auscultation Cardiovascular: regular rate and rhythm Gastrointestinal: soft, non-tender Musculoskeletal: nl extremities to inspection Extremities: edema, other (Right third fingertip wound, dry) Results Results 24hrs Laboratory Tests Test 01/14/19 19:38 01/14/19 20:40 01/15/19 04:46 01/15/19 04:59 Bedside Glucose 99 84 62 L 70 Test 01/15/19 05:15 01/15/19 05:53 01/15/19 07:48 01/15/19 11:57 Bedside Glucose 99 111 86 White Blood Count 2.5 #L Red Blood Count 2.90 L Hemoglobin 9.2 L Hematocrit 29.7 L Mean Corpuscular 102.4 H Volume Mean Corpuscular 31.7 Hemoglobin Mean Corpuscular 31.0 L Hemoglobin Concent Red Cell 15.0 H Distribution Width Platelet Count 173 Mean Platelet Volume 10.4 Immature 0.400 Granulocytes % Neutrophils % 59.3 Lymphocytes % 24.2 Monocytes % 14.1 H Eosinophils % 1.2 Basophils % 0.8 Nucleated Red Blood 0.0 Cells % Immature 0.010 Granulocytes # Neutrophils # 1.5 L Lymphocytes # 0.6 L Monocytes # 0.4 Eosinophils # 0.0 Basophils # 0.0 Nucleated Red Blood 0.0 Cells # Sodium Level 138 Potassium Level 4.0 Chloride Level 104 Carbon Dioxide Level 26 Anion Gap 8 Blood Urea Nitrogen 47 H Creatinine 3.49 H Est Glomerular 18 L Filtrat Rate mL/min Glucose Level 100 Calcium Level 8.9 Test 01/15/19 17:42 Bedside Glucose 190 Medications Medication Current Medications IV Flush (NS 3 ml) 3 ml PER PROTOCOL IV ; Start 01/09/19 at 22:00 Ondansetron HCl (Zofran Inj) 4 mg Q6H PRN IV NAUSEA/VOMITING Last administered on 01/13/19at 09:19; Admin Dose 4 MG; Start 01/09/19 at 22:00 Diagnostic Test (Pha) (Accu-Chek) 1 ea 02 XX Last administered on 01/14/19at 01:16; Admin Dose 1 EA; Start 01/11/19 at 02:00 Miscellaneous Information 1 ea NOTE XX ; Start 01/10/19 at 04:00 Glucose (Glutose) 15 gm Q15M PRN PO DECREASED GLUCOSE; Start 01/10/19 at 04:00 Glucose (Glutose) 22.5 gm Q15M PRN PO DECREASED GLUCOSE; Start 01/10/19 at 04:00 Dextrose (D50w Syringe) 25 ml Q15M PRN IV DECREASED GLUCOSE; Start 01/10/19 at 04:00 Dextrose (D50w Syringe) 50 ml Q15M PRN IV DECREASED GLUCOSE; Start 01/10/19 at 04:00 Glucagon (Glucagen) 1 mg Q15M PRN IM DECREASED GLUCOSE; Start 01/10/19 at 04:00 Glucose (Glutose) 15 gm Q15M PRN BUCCAL DECREASED GLUCOSE; Start 01/10/19 at 04:00 Guaifenesin/ Dextromethorphan (Robitussin Dm Liquid Cup) 10 ml Q6 PRN PO COUGH Last administered on 01/10/19at 16:45; Admin Dose 10 ML; Start 01/10/19 at 10:30 Epoetin Fidencio (Epogen (Esrd)) 3,000 units MoWeFr@17 SC Last administered on 01/13/19at 17:47; Admin Dose 3,000 UNITS; Start 01/11/19 at 17:00 Prednisone (Prednisone) 5 mg DAILY PO Last administered on 01/15/19 09:04; Admin Dose 5 MG; Start 01/11/19 at 15:30 Acetaminophen/ Hydrocodone Bitart ([place] (10/325)) 2 tab Q6H PRN PO MODERATE PAIN LEVEL 4-6 Last administered on 01/15/19 16:43; Admin Dose 2 TAB; Start 01/11/19 at 15:30 Sodium Bicarbonate (Sodium Bicarbonate Tab) 650 mg BID PO Last administered on 01/15/19 09:05; Admin Dose 650 MG; Start 01/11/19 at 21:00 Hydralazine HCl (Apresoline) 25 mg Q12 PO Last administered on 01/15/19 09:06; Admin Dose 25 MG; Start 01/11/19 at 21:00 Insulin Glargine (Lantus) 6 units DAILY@2000 SC Last administered on 01/14/19 20:54; Admin Dose 6 UNITS; Start 01/12/19 at 20:00 Insulin Aspart (Novolog Insulin Pen) 3 unit WITH MEALS SC Last administered on 01/15/19 17:52; Admin Dose 3 UNIT; Start 01/12/19 at 12:00 Insulin Aspart (Novolog Insulin Pen) NOVOLOG *MILD* ALGORITHM WITH MEALS BEDTIME SC Last administered on 01/15/19 17:57; Admin Dose 2 UNIT; Start 01/12/19 at 12:00 Linagliptin (Tradjenta) 5 mg DAILY PO Last administered on 01/15/19 09:05; Admin Dose 5 MG; Start 01/12/19 at 11:30 Escitalopram Oxalate (Lexapro) 10 mg DAILY PO Last administered on 01/15/19 09:05; Admin Dose 10 MG; Start 01/12/19 at 11:30 Tacrolimus (Prograf) 2 mg Q12 PO Last administered on 01/15/19 09:05; Admin Dose 2 MG; Start 01/12/19 at 21:00 Amoxicillin/ Clavulanate Potassium (Augmentin) 500 mg Q12 PO Last administered on 01/15/19 09:05; Admin Dose 500 MG; Start 01/12/19 at 14:00 Pantoprazole (Protonix Tab) 40 mg DAILY@06 PO Last administered on 3/15/19at 05:47; Admin Dose 40 MG; Start 01/14/19 at 06:00 Metoclopramide HCl (Reglan) 5 mg Q6H PRN IV NAUSEA AND/OR VOMITING Last administered on 01/13/19at 13:16; Admin Dose 5 MG; Start 01/13/19 at 13:00 Furosemide (Lasix) 40 mg DAILY PO Last administered on 01/15/19at 09:06; Admin Dose 40 MG; Start 01/14/19 at 09:00 Sodium Chloride 50 ml @ 100 mls/hr Q12 IVPB Last administered on 01/15/19at 09:07; Admin Dose 100 MLS/HR; Start 01/14/19 at 21:00; Stop 01/29/19 at 23:00 Cefazolin Sodium 50 ml @ 100 mls/hr Q12 IVPB ; Start 01/16/19 at 01:00 LETI RODRIGUEZ Jan 15, 2019 18:23
--- NOTE | 2019-01-15 18:31 | PN ---
Date/Time of Note Date/Time of Note DATE: 01/15/19 TIME: 18:26 Assessment/Plan VTE Prophylaxis Risk score (from Ns)>0 risk: 3 SCD applied (from Ns): Yes Pharmacological prophylaxis: NA/contraindicated Pharm contraindication: bleeding Lines/Catheters IV C[facility]ter Type (from [facility]): PICC Line Central line still needed: Yes Assessment/Plan Hospital Course Blood sugar is adequately controlled, patient's complaints of generalized weakness and lower urine output currently on Lasix, hemoglobin is 9.2. If patient's condition improved patient can be discharged home and follow-up with [facility] for kidney biopsy on Friday. Assessment/Plan -Renal hematoma CT of the abdomen and pelvis, Dr. Noguera is following in urology consultation. -Anemia of acute blood loss, status post blood transfusion, continue to monitor H&H. -Severe hyperkalemia, s/p Kayexalate. Dr. Fofana is following in nephrology consultation. -Endocarditis, continue cefazolin. -Bilateral lower extremities and scrotal edema -Right middle finger cellulitis with gangrene, resolving. Dr. Olmstead is following in infection disease consultation. -Chronic kidney disease stage IV, status post cadaveric kidney transplant in 2009. -Diabetes mellitus type 2 with diabetic neuropathy, hemoglobin A1c is 6.7. Continue Tradjenta, Lantus and NovoLog. -Atherosclerosis -Hypertension. -History of right fourth finger gangrene -History of Juan's esophagus and severe gastritis. -Chronic HCV infection -Rheumatoid arthritis -History of polysubstance and IV drug use Further recommendations based on clinical course. Plan of care discussed with Dr. Maier. Result Diagram: 01/15/19 0553 01/15/19 0553 Results 24hrs Laboratory Tests Test 01/14/19 19:38 01/14/19 20:40 01/15/19 04:46 01/15/19 04:59 Bedside Glucose 99 84 62 L 70 Test 01/15/19 05:15 01/15/19 05:53 01/15/19 07:48 01/15/19 11:57 Bedside Glucose 99 111 86 White Blood Count 2.5 #L Red Blood Count 2.90 L Hemoglobin 9.2 L Hematocrit 29.7 L Mean Corpuscular 102.4 H Volume Mean Corpuscular 31.7 Hemoglobin Mean Corpuscular 31.0 L Hemoglobin Concent Red Cell 15.0 H Distribution Width Platelet Count 173 Mean Platelet Volume 10.4 Immature 0.400 Granulocytes % Neutrophils % 59.3 Lymphocytes % 24.2 Monocytes % 14.1 H Eosinophils % 1.2 Basophils % 0.8 Nucleated Red Blood 0.0 Cells % Immature 0.010 Granulocytes # Neutrophils # 1.5 L Lymphocytes # 0.6 L Monocytes # 0.4 Eosinophils # 0.0 Basophils # 0.0 Nucleated Red Blood 0.0 Cells # Sodium Level 138 Potassium Level 4.0 Chloride Level 104 Carbon Dioxide Level 26 Anion Gap 8 Blood Urea Nitrogen 47 H Creatinine 3.49 H Est Glomerular 18 L Filtrat Rate mL/min Glucose Level 100 Calcium Level 8.9 Test 01/15/19 17:42 Bedside Glucose 190 Exam/Review of Systems Exam Vitals Vital Signs Date Temp Pulse Resp B/P (MAP) Pulse Ox O2 O2 Flow FiO2 Time Delivery Rate 01/15/19 79 16:14 01/15/19 98.4 18 147/63 99 Room Air 15:07 (91) Intake and Output 01/14/19 01/14/19 01/15/19 1515:00 23:00 07:00 IntakeIntake Total 575 ml 800 ml BalanceBalance 575 ml 800 ml Exam Constitutional: alert, oriented Neck: supple Respiratory: clear to auscultation Cardiovascular: regular rate and rhythm Gastrointestinal: soft, non-tender Musculoskeletal: nl extremities to inspection Extremities: edema, other (Right third fingertip escar) Results Results 24hrs Laboratory Tests Test 01/14/19 19:38 01/14/19 20:40 01/15/19 04:46 01/15/19 04:59 Bedside Glucose 99 84 62 L 70 Test 01/15/19 05:15 01/15/19 05:53 01/15/19 07:48 01/15/19 11:57 Bedside Glucose 99 111 86 White Blood Count 2.5 #L Red Blood Count 2.90 L Hemoglobin 9.2 L Hematocrit 29.7 L Mean Corpuscular 102.4 H Volume Mean Corpuscular 31.7 Hemoglobin Mean Corpuscular 31.0 L Hemoglobin Concent Red Cell 15.0 H Distribution Width Platelet Count 173 Mean Platelet Volume 10.4 Immature 0.400 Granulocytes % Neutrophils % 59.3 Lymphocytes % 24.2 Monocytes % 14.1 H Eosinophils % 1.2 Basophils % 0.8 Nucleated Red Blood 0.0 Cells % Immature 0.010 Granulocytes # Neutrophils # 1.5 L Lymphocytes # 0.6 L Monocytes # 0.4 Eosinophils # 0.0 Basophils # 0.0 Nucleated Red Blood 0.0 Cells # Sodium Level 138 Potassium Level 4.0 Chloride Level 104 Carbon Dioxide Level 26 Anion Gap 8 Blood Urea Nitrogen 47 H Creatinine 3.49 H Est Glomerular 18 L Filtrat Rate mL/min Glucose Level 100 Calcium Level 8.9 Test 01/15/19 17:42 Bedside Glucose 190 Medications Medication Current Medications IV Flush (NS 3 ml) 3 ml PER PROTOCOL IV ; Start 01/09/19 at 22:00 Ondansetron HCl (Zofran Inj) 4 mg Q6H PRN IV NAUSEA/VOMITING Last administered on 01/13/19at 09:19; Admin Dose 4 MG; Start 01/09/19 at 22:00 Diagnostic Test (Pha) (Accu-Chek) 1 ea 02 XX Last administered on 01/14/19at 01:16; Admin Dose 1 EA; Start 01/11/19 at 02:00 Miscellaneous Information 1 ea NOTE XX ; Start 01/10/19 at 04:00 Glucose (Glutose) 15 gm Q15M PRN PO DECREASED GLUCOSE; Start 01/10/19 at 04:00 Glucose (Glutose) 22.5 gm Q15M PRN PO DECREASED GLUCOSE; Start 01/10/19 at 04:00 Dextrose (D50w Syringe) 25 ml Q15M PRN IV DECREASED GLUCOSE; Start 01/10/19 at 04:00 Dextrose (D50w Syringe) 50 ml Q15M PRN IV DECREASED GLUCOSE; Start 01/10/19 at 04:00 Glucagon (Glucagen) 1 mg Q15M PRN IM DECREASED GLUCOSE; Start 01/10/19 at 04:00 Glucose (Glutose) 15 gm Q15M PRN BUCCAL DECREASED GLUCOSE; Start 01/10/19 at 04:00 Guaifenesin/ Dextromethorphan (Robitussin Dm Liquid Cup) 10 ml Q6 PRN PO COUGH Last administered on 01/10/19at 16:45; Admin Dose 10 ML; Start 01/10/19 at 10:30 Epoetin Fidencio (Epogen (Esrd)) 3,000 units MoWeFr@17 SC Last administered on 01/13/19 17:47; Admin Dose 3,000 UNITS; Start 01/11/19 at 17:00 Prednisone (Prednisone) 5 mg DAILY PO Last administered on 01/15/19 09:04; Admin Dose 5 MG; Start 01/11/19 at 15:30 Acetaminophen/ Hydrocodone Bitart ([place] (10/325)) 2 tab Q6H PRN PO MODERATE PAIN LEVEL 4-6 Last administered on 01/15/19 16:43; Admin Dose 2 TAB; Start 01/11/19 at 15:30 Sodium Bicarbonate (Sodium Bicarbonate Tab) 650 mg BID PO Last administered on 01/15/19 09:05; Admin Dose 650 MG; Start 01/11/19 at 21:00 Hydralazine HCl (Apresoline) 25 mg Q12 PO Last administered on 01/15/19 09:06; Admin Dose 25 MG; Start 01/11/19 at 21:00 Insulin Glargine (Lantus) 6 units DAILY@2000 SC Last administered on 01/14/19 20:54; Admin Dose 6 UNITS; Start 01/12/19 at 20:00 Insulin Aspart (Novolog Insulin Pen) 3 unit WITH MEALS SC Last administered on 01/15/19 17:52; Admin Dose 3 UNIT; Start 01/12/19 at 12:00 Insulin Aspart (Novolog Insulin Pen) NOVOLOG *MILD* ALGORITHM WITH MEALS BEDTIME SC Last administered on 01/15/19 17:57; Admin Dose 2 UNIT; Start 01/12/19 at 12:00 Linagliptin (Tradjenta) 5 mg DAILY PO Last administered on 01/15/19 09:05; Admin Dose 5 MG; Start 01/12/19 at 11:30 Escitalopram Oxalate (Lexapro) 10 mg DAILY PO Last administered on 01/15/19 09:05; Admin Dose 10 MG; Start 01/12/19 at 11:30 Tacrolimus (Prograf) 2 mg Q12 PO Last administered on 01/15/19 09:05; Admin Dose 2 MG; Start 01/12/19 at 21:00 Amoxicillin/ Clavulanate Potassium (Augmentin) 500 mg Q12 PO Last administered on 01/15/19 09:05; Admin Dose 500 MG; Start 01/12/19 at 14:00 Pantoprazole (Protonix Tab) 40 mg DAILY@06 PO Last administered on 01/15/19 05:47; Admin Dose 40 MG; Start 01/14/19 at 06:00 Metoclopramide HCl (Reglan) 5 mg Q6H PRN IV NAUSEA AND/OR VOMITING Last administered on 01/13/19 13:16; Admin Dose 5 MG; Start 01/13/19 at 13:00 Furosemide (Lasix) 40 mg DAILY PO Last administered on 01/15/19at 09:06; Admin Dose 40 MG; Start 01/14/19 at 09:00 Sodium Chloride 50 ml @ 100 mls/hr Q12 IVPB Last administered on 01/15/19 09:07; Admin Dose 100 MLS/HR; Start 01/14/19 at 21:00; Stop 01/29/19 at 23:00 Cefazolin Sodium 50 ml @ 100 mls/hr Q12 IVPB ; Start 01/16/19 at 01:00 LETI RODRIGUEZ Jan 15, 2019 18:31
[2019-01-15] MEDS: ONDANSETRON 4 MG INJ IV PRN (20:09)
[2019-01-15] MEDS: INSULIN GLARGINE [LANTus] (100 UNITS/ML) SYG SC SCH (20:43)
[2019-01-16] VITALS (9 sets, daily range): BP systolic 100–145; BP diastolic 46–83; PULSE 72–82; RESP 18–22
[2019-01-16] MEDS: ACCU-CHEK XX SCH (02:00)
[2019-01-16] MEDS: CEFAZOLIN 1 GM/50 ML (PMX) 50 ML IVPB SCH ×3 (02:23→20:38)
[2019-01-16] MEDS: PANTOPRAZOLE (EC) 40 MG TAB PO SCH (06:00)
[2019-01-16] MEDS: INSULIN ASPART [NOVOLOG] 3 ML PEN SC SCH ×7 (07:49→20:39)
[2019-01-16] MEDS: ESCITALOPRAM 10 MG TAB PO SCH (08:32)
[2019-01-16] MEDS: predniSONE 5 MG TAB PO SCH (08:32)
[2019-01-16] MEDS: TACROLIMUS 1 MG CAP PO SCH ×2 (08:32→20:39)
[2019-01-16] MEDS: NA BICARBONATE 650 MG TAB PO SCH ×2 (08:33→20:38)
[2019-01-16] MEDS: FUROSEMIDE 40 MG TAB PO SCH (08:33)
[2019-01-16] MEDS: LINAGLIPTIN 5 MG TABLET PO SCH (08:33)
[2019-01-16] MEDS: SOD CHLORIDE 0.9% 50 ML IVPB SCH ×2 (08:39→20:39)
[2019-01-16] MEDS: HYDROCODONE/APAP (10/325) TAB PO PRN ×2 (08:42→16:32)
[2019-01-16] MEDS: AMOXICILLIN/CLAV 500 MG TAB PO SCH ×2 (12:02→20:38)
--- NOTE | 2019-01-16 14:11 | CONS ---
Consult Date/Type/Reason Admit Date/Time Jan 09, 2019 at 21:14 Initial Consult Date Type of Consultation: Urology Requesting Provider: LUPE KAPLAN MD Date/Time of Note DATE: 01/16/19 TIME: 14:09 Subjective NO acute events - pt comfortable - not in CHF by exam - con't HTN Rx. ROS: No fever, no chills, no nausea, no vomiting, no diarrhea/constipation No recent weight changes No chest pain, no PND, no orthopnea No dizziness, blurred vision No thirst, no heat or cold intolerance Objective Vitals Vital Signs Date Temp Pulse Resp B/P (MAP) Pulse Ox O2 O2 Flow FiO2 Time Delivery Rate 01/16/19 96.5 77 22 145/64 96 Room Air 12:13 (91) Intake and Output 01/15/19 01/15/19 01/16/19 1515:00 23:00 07:00 IntakeIntake Total 660 ml 400 ml OutputOutput Total 475 ml 900 ml BalanceBalance 185 ml -500 ml Exam General: WN/WD/NAD, AOx 3 HEENT: Unicetric/atraumatic/EOMI (follow commands) NECK: JVD elevated, no thyromegaly Lymph: no lymphadenopathy HEART: regular with no S3, II/ systolic murmur at apex LUNGS: Coarse sounds ABD: soft, NT, ND, +BS : Intact Neuro: non focal SKIN: chronic changes EXT: trace edema Results/Medications Result Diagram: 01/16/19 0525 01/16/19 0525 Results 24 hrs Laboratory Tests Test 01/15/19 17:42 01/15/19 20:13 01/16/19 05:25 01/16/19 07:45 Bedside Glucose 190 103 71 White Blood Count 3.7 #L Red Blood Count 2.96 L Hemoglobin 9.4 L Hematocrit 30.1 L Mean Corpuscular 101.7 H Volume Mean Corpuscular 31.8 Hemoglobin Mean Corpuscular 31.2 L Hemoglobin Concent Red Cell 14.8 H Distribution Width Platelet Count 201 Mean Platelet Volume 10.3 Immature 0.300 Granulocytes % Neutrophils % 63.3 Lymphocytes % 21.4 Monocytes % 12.5 H Eosinophils % 1.4 Basophils % 1.1 Nucleated Red Blood 0.0 Cells % Immature 0.010 Granulocytes # Neutrophils # 2.3 Lymphocytes # 0.8 Monocytes # 0.5 Eosinophils # 0.1 Basophils # 0.0 Nucleated Red Blood 0.0 Cells # Sodium Level 139 Potassium Level 4.8 Chloride Level 105 Carbon Dioxide Level 27 Anion Gap 7 Blood Urea Nitrogen 48 H Creatinine 3.44 H Est Glomerular 18 L Filtrat Rate mL/min Glucose Level 90 Calcium Level 8.8 Test 01/16/19 12:04 Bedside Glucose 125 Home Meds Reported Medications Cefazolin Sodium in 0.9 % NaCl (Cefazolin 2 G/100 ml-0.9% NaCl) 2 Gm/100 Ml Plast..bag, 2 GM IV Q12 01/12/19 Sitagliptin* (Januvia*) 50 Mg Tablet, 50 MG PO DAILY, #30 TAB 12/09/18 Tacrolimus* (Tacrolimus*) 1 Mg Capsule, 3 MG PO QAM, CAP 12/09/18 Tacrolimus* (Tacrolimus*) 1 Mg Capsule, 2 MG PO QHS, CAP 12/09/18 Mycophenolate Sodium* (Mycophenolic Acid*) 180 Mg Tablet.dr, 540 MG PO Q12, TAB 12/09/18 Prednisone* (Prednisone*) 5 Mg Tab, 5 MG PO DAILY, TAB 12/09/18 Glipizide* (Glipizide*) 5 Mg Tablet, 5 MG PO AC BREAKFAST DINNER, TAB 12/09/18 Clonidine Hcl* (Clonidine Hcl*) 0.1 Mg Tab, 0.1 MG PO DAILY, TAB 12/09/18 Insulin Lispro (Humalog) 100 Unit/1 Ml Cartridge, 2-10 UNITS SQ SLIDING SCALE, EA INSURANECE NOT COVERED THIS INSULIN 09/23/18 Medications Current Medications IV Flush (NS 3 ml) 3 ml PER PROTOCOL IV ; Start 01/09/19 at 22:00 Ondansetron HCl (Zofran Inj) 4 mg Q6H PRN IV NAUSEA/VOMITING Last administered on 01/15/19at 20:09; Admin Dose 4 MG; Start 01/09/19 at 22:00 Diagnostic Test (Pha) (Accu-Chek) 1 ea 02 XX Last administered on 01/14/19at 01:16; Admin Dose 1 EA; Start 01/11/19 at 02:00 Miscellaneous Information 1 ea NOTE XX ; Start 01/10/19 at 04:00 Glucose (Glutose) 15 gm Q15M PRN PO DECREASED GLUCOSE; Start 01/10/19 at 04:00 Glucose (Glutose) 22.5 gm Q15M PRN PO DECREASED GLUCOSE; Start 01/10/19 at 04:00 Dextrose (D50w Syringe) 25 ml Q15M PRN IV DECREASED GLUCOSE; Start 01/10/19 at 04:00 Dextrose (D50w Syringe) 50 ml Q15M PRN IV DECREASED GLUCOSE; Start 01/10/19 at 04:00 Glucagon (Glucagen) 1 mg Q15M PRN IM DECREASED GLUCOSE; Start 01/10/19 at 04:00 Glucose (Glutose) 15 gm Q15M PRN BUCCAL DECREASED GLUCOSE; Start 01/10/19 at 04:00 Guaifenesin/ Dextromethorphan (Robitussin Dm Liquid Cup) 10 ml Q6 PRN PO COUGH Last administered on 01/10/19 16:45; Admin Dose 10 ML; Start 01/10/19 at 10:30 Epoetin Fidencio (Epogen (Esrd)) 3,000 units MoWeFr@17 SC Last administered on 01/13/19 17:47; Admin Dose 3,000 UNITS; Start 01/11/19 at 17:00 Prednisone (Prednisone) 5 mg DAILY PO Last administered on 01/16/19 08:32; Admin Dose 5 MG; Start 01/11/19 at 15:30 Acetaminophen/ Hydrocodone Bitart ([place] (10325)) 2 tab Q6H PRN PO MODERATE PAIN LEVEL 4-6 Last administered on 01/16/19 08:42; Admin Dose 2 TAB; Start 01/11/19 at 15:30 Sodium Bicarbonate (Sodium Bicarbonate Tab) 650 mg BID PO Last administered on 01/16/19 08:33; Admin Dose 650 MG; Start 01/11/19 at 21:00 Hydralazine HCl (Apresoline) 25 mg Q12 PO Last administered on 01/16/19 08:33; Admin Dose 25 MG; Start 01/11/19 at 21:00 Insulin Glargine (Lantus) 6 units DAILY@2000 SC Last administered on 01/15/19 20:43; Admin Dose 6 UNITS; Start 01/12/19 at 20:00 Insulin Aspart (Novolog Insulin Pen) 3 unit WITH MEALS SC Last administered on 3/15/19at 17:52; Admin Dose 3 UNIT; Start 01/12/19 at 12:00 Insulin Aspart (Novolog Insulin Pen) NOVOLOG *MILD* ALGORITHM WITH MEALS BEDTIME SC Last administered on 01/15/19 17:57; Admin Dose 2 UNIT; Start 01/12/19 at 12:00 Linagliptin (Tradjenta) 5 mg DAILY PO Last administered on 01/16/19 08:33; Admin Dose 5 MG; Start 01/12/19 at 11:30 Escitalopram Oxalate (Lexapro) 10 mg DAILY PO Last administered on 01/16/19 08:32; Admin Dose 10 MG; Start 01/12/19 at 11:30 Tacrolimus (Prograf) 2 mg Q12 PO Last administered on 01/16/19 08:32; Admin Dose 2 MG; Start 01/12/19 at 21:00 Amoxicillin/ Clavulanate Potassium (Augmentin) 500 mg Q12 PO Last administered on 01/16/19 12:02; Admin Dose 500 MG; Start 01/12/19 at 14:00 Pantoprazole (Protonix Tab) 40 mg DAILY@06 PO Last administered on 01/15/19 05:47; Admin Dose 40 MG; Start 01/14/19 at 06:00 Metoclopramide HCl (Reglan) 5 mg Q6H PRN IV NAUSEA AND/OR VOMITING Last administered on 01/13/19 13:16; Admin Dose 5 MG; Start 01/13/19 at 13:00 Furosemide (Lasix) 40 mg DAILY PO Last administered on 01/16/19 08:33; Admin Dose 40 MG; Start 01/14/19 at 09:00 Sodium Chloride 50 ml @ 100 mls/hr Q12 IVPB Last administered on 01/16/19 08:39; Admin Dose 100 MLS/HR; Start 01/14/19 at 21:00; Stop 01/29/19 at 23:00 Cefazolin Sodium 50 ml @ 100 mls/hr Q12 IVPB Last administered on 01/16/19 08:35; Admin Dose 100 MLS/HR; Start 01/16/19 at 01:00 Assessment/Plan Hospital Course (Demo Recall) 1. Hypertension-labile, stable now - pt feels tired - better now - will monitor as needed. 2. Gangrenous changes of the patient's finger - defer to surgical team as prior 3. Renal failure on HD - Rx per renal team. Rx per primary team. REnal team follows- K+ in range 4. Rheumatoid arthritis - rheum to follow. 5. Diabetes mellitus - on meds, keep euvolemic. 6. History of Juan's esophagus. 7. Dyslipidemia. 8. Bacteremia-S aureus - Rx with anti-Bx now - ID follows 9. Anemia - H/H low, blood RX as needed. RAQUEL BAIRES MD Jan 16, 2019 14:11
--- NOTE | 2019-01-16 14:44 | PN ---
Date/Time of Note Date/Time of Note DATE: 01/16/19 TIME: 14:42 Assessment/Plan VTE Prophylaxis Risk score (from Ns)>0 risk: 3 SCD applied (from Ns): No Lines/Catheters IV Catheter Type (from Nrs): PICC Line Assessment/Plan Assessment/Plan -Renal hematoma CT of the abdomen and pelvis, Dr. Noguera is following in urology consultation. -Anemia of acute blood loss, status post blood transfusion, continue to monitor H&H. -Severe hyperkalemia, s/p Kayexalate. - Dr. Fofana is following in nephrology consultation. -Endocarditis, continue cefazolin. -Bilateral lower extremities and scrotal edema -Right middle finger cellulitis with gangrene, resolving. Dr. Olmstead is following in infection disease consultation. -Chronic kidney disease stage IV, status post cadaveric kidney transplant in 2009. -Diabetes mellitus type 2 with diabetic neuropathy, hemoglobin A1c is 6.7. Continue Tradjenta, Lantus and NovoLog. -Atherosclerosis -Hypertension. -History of right fourth finger gangrene -History of Juan's esophagus and severe gastritis. -Chronic HCV infection -Rheumatoid arthritis -History of polysubstance and IV drug use Result Diagram: 01/16/19 0525 01/16/19 0525 Results 24hrs Laboratory Tests Test 01/15/19 17:42 01/15/19 20:13 01/16/19 05:25 01/16/19 07:45 Bedside Glucose 190 103 71 White Blood Count 3.7 #L Red Blood Count 2.96 L Hemoglobin 9.4 L Hematocrit 30.1 L Mean Corpuscular 101.7 H Volume Mean Corpuscular 31.8 Hemoglobin Mean Corpuscular 31.2 L Hemoglobin Concent Red Cell 14.8 H Distribution Width Platelet Count 201 Mean Platelet Volume 10.3 Immature 0.300 Granulocytes % Neutrophils % 63.3 Lymphocytes % 21.4 Monocytes % 12.5 H Eosinophils % 1.4 Basophils % 1.1 Nucleated Red Blood 0.0 Cells % Immature 0.010 Granulocytes # Neutrophils # 2.3 Lymphocytes # 0.8 Monocytes # 0.5 Eosinophils # 0.1 Basophils # 0.0 Nucleated Red Blood 0.0 Cells # Sodium Level 139 Potassium Level 4.8 Chloride Level 105 Carbon Dioxide Level 27 Anion Gap 7 Blood Urea Nitrogen 48 H Creatinine 3.44 H Est Glomerular 18 L Filtrat Rate mL/min Glucose Level 90 Calcium Level 8.8 Test 01/16/19 12:04 Bedside Glucose 125 Subjective 24 Hr Interval Summary Free Text/Dictation Refused Insulin Respiratory: no complaints Cardiovascular: no complaints Gastrointestinal: no complaints Genitourinary: no complaints Musculoskeletal: no complaints Skin: no complaints Exam/Review of Systems Exam Vitals Vital Signs Date Temp Pulse Resp B/P (MAP) Pulse Ox O2 O2 Flow FiO2 Time Delivery Rate 01/16/19 96.5 77 22 145/64 96 Room Air 12:13 (91) Intake and Output 01/15/19 01/15/19 01/16/19 1515:00 23:00 07:00 IntakeIntake Total 660 ml 400 ml OutputOutput Total 475 ml 900 ml BalanceBalance 185 ml -500 ml Constitutional: alert, oriented, well developed Psych: nl mood/affect Eyes: nl lids, nl sclera Neck: non-tender Respiratory: clear to auscultation Cardiovascular: other Gastrointestinal: soft, non-tender Musculoskeletal: nl extremities to inspection Extremities: normal pulses 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: nl speech, other Lymph: nontender Results Results 24hrs Laboratory Tests Test 01/15/19 17:42 01/15/19 20:13 01/16/19 05:25 01/16/19 07:45 Bedside Glucose 190 103 71 White Blood Count 3.7 #L Red Blood Count 2.96 L Hemoglobin 9.4 L Hematocrit 30.1 L Mean Corpuscular 101.7 H Volume Mean Corpuscular 31.8 Hemoglobin Mean Corpuscular 31.2 L Hemoglobin Concent Red Cell 14.8 H Distribution Width Platelet Count 201 Mean Platelet Volume 10.3 Immature 0.300 Granulocytes % Neutrophils % 63.3 Lymphocytes % 21.4 Monocytes % 12.5 H Eosinophils % 1.4 Basophils % 1.1 Nucleated Red Blood 0.0 Cells % Immature 0.010 Granulocytes # Neutrophils # 2.3 Lymphocytes # 0.8 Monocytes # 0.5 Eosinophils # 0.1 Basophils # 0.0 Nucleated Red Blood 0.0 Cells # Sodium Level 139 Potassium Level 4.8 Chloride Level 105 Carbon Dioxide Level 27 Anion Gap 7 Blood Urea Nitrogen 48 H Creatinine 3.44 H Est Glomerular 18 L Filtrat Rate mL/min Glucose Level 90 Calcium Level 8.8 Test 01/16/19 12:04 Bedside Glucose 125 Medications Medication Current Medications IV Flush (NS 3 ml) 3 ml PER PROTOCOL IV ; Start 01/09/19 at 22:00 Ondansetron HCl (Zofran Inj) 4 mg Q6H PRN IV NAUSEA/VOMITING Last administered on 01/15/19at 20:09; Admin Dose 4 MG; Start 01/09/19 at 22:00 Diagnostic Test (Pha) (Accu-Chek) 1 ea 02 XX Last administered on 01/14/19at 01:16; Admin Dose 1 EA; Start 01/11/19 at 02:00 Miscellaneous Information 1 ea NOTE XX ; Start 01/10/19 at 04:00 Glucose (Glutose) 15 gm Q15M PRN PO DECREASED GLUCOSE; Start 01/10/19 at 04:00 Glucose (Glutose) 22.5 gm Q15M PRN PO DECREASED GLUCOSE; Start 01/10/19 at 04:00 Dextrose (D50w Syringe) 25 ml Q15M PRN IV DECREASED GLUCOSE; Start 01/10/19 at 04:00 Dextrose (D50w Syringe) 50 ml Q15M PRN IV DECREASED GLUCOSE; Start 01/10/19 at 04:00 Glucagon (Glucagen) 1 mg Q15M PRN IM DECREASED GLUCOSE; Start 01/10/19 at 04:00 Glucose (Glutose) 15 gm Q15M PRN BUCCAL DECREASED GLUCOSE; Start 01/10/19 at 04:00 Guaifenesin/ Dextromethorphan (Robitussin Dm Liquid Cup) 10 ml Q6 PRN PO COUGH Last administered on 01/10/19at 16:45; Admin Dose 10 ML; Start 01/10/19 at 10:30 Epoetin Fidencio (Epogen (Esrd)) 3,000 units MoWeFr@17 SC Last administered on 01/13/19at 17:47; Admin Dose 3,000 UNITS; Start 01/11/19 at 17:00 Prednisone (Prednisone) 5 mg DAILY PO Last administered on 01/16/19at 08:32; Admin Dose 5 MG; Start 01/11/19 at 15:30 Acetaminophen/ Hydrocodone Bitart ([place] (10/325)) 2 tab Q6H PRN PO MODERATE PAIN LEVEL 4-6 Last administered on 01/16/19at 08:42; Admin Dose 2 TAB; Start 01/11/19 at 15:30 Sodium Bicarbonate (Sodium Bicarbonate Tab) 650 mg BID PO Last administered on 01/16/19 08:33; Admin Dose 650 MG; Start 01/11/19 at 21:00 Hydralazine HCl (Apresoline) 25 mg Q12 PO Last administered on 01/16/19 08:33; Admin Dose 25 MG; Start 01/11/19 at 21:00 Insulin Glargine (Lantus) 6 units DAILY@2000 SC Last administered on 01/15/19 20:43; Admin Dose 6 UNITS; Start 01/12/19 at 20:00 Insulin Aspart (Novolog Insulin Pen) 3 unit WITH MEALS SC Last administered on 01/15/19 17:52; Admin Dose 3 UNIT; Start 01/12/19 at 12:00 Insulin Aspart (Novolog Insulin Pen) NOVOLOG *MILD* ALGORITHM WITH MEALS BEDTIME SC Last administered on 01/15/19 17:57; Admin Dose 2 UNIT; Start 01/12/19 at 12:00 Linagliptin (Tradjenta) 5 mg DAILY PO Last administered on 01/16/19 08:33; Admin Dose 5 MG; Start 01/12/19 at 11:30 Escitalopram Oxalate (Lexapro) 10 mg DAILY PO Last administered on 01/16/19 08:32; Admin Dose 10 MG; Start 01/12/19 at 11:30 Tacrolimus (Prograf) 2 mg Q12 PO Last administered on 01/16/19 08:32; Admin Dose 2 MG; Start 01/12/19 at 21:00 Amoxicillin/ Clavulanate Potassium (Augmentin) 500 mg Q12 PO Last administered on 01/16/19 12:02; Admin Dose 500 MG; Start 01/12/19 at 14:00 Pantoprazole (Protonix Tab) 40 mg DAILY@06 PO Last administered on 01/15/19 05:47; Admin Dose 40 MG; Start 01/14/19 at 06:00 Metoclopramide HCl (Reglan) 5 mg Q6H PRN IV NAUSEA AND/OR VOMITING Last administered on 01/13/19 13:16; Admin Dose 5 MG; Start 01/13/19 at 13:00 Furosemide (Lasix) 40 mg DAILY PO Last administered on 01/16/19 08:33; Admin Dose 40 MG; Start 01/14/19 at 09:00 Sodium Chloride 50 ml @ 100 mls/hr Q12 IVPB Last administered on 01/16/19at 08:39; Admin Dose 100 MLS/HR; Start 01/14/19 at 21:00; Stop 01/29/19 at 23:00 Cefazolin Sodium 50 ml @ 100 mls/hr Q12 IVPB Last administered on 01/16/19at 08:35; Admin Dose 100 MLS/HR; Start 01/16/19 at 01:00 EILEEN COBURN Jan 16, 2019 14:43
--- NOTE | 2019-01-16 15:51 | CONS ---
Assessment/Plan Assessment/Plan Hospital Course (Demo Recall) 1. The patient has chronic renal failure stage IV. 2. The patient has donor renal transplantation in 2009. The patient also has underlying severe diabetic nephropathy. 3 Ultrasound positive for hydro-nephrosis in the right kidney which is unchanged from the prior ultrasound 4 Diabetes. 5 History of Staphylococcus bacteremia off of mycophenolate. 6 Hypertension.. 7. Peripheral vascular disease with amputation. 8. History of hepatitis C. 9 There is a hematoma within the right lateral abdominal wall musculature which has developed since the previous study done 12/13/2018 measuring 7.3 x 4.6 cm in cross diameter and extending an acrylic that dimension approximately 10.7 cm from the level of the superior pole of the [place] right kidney to just inferior to the right iliac crest. plan per gu ck bmp Consultation Date/Type/Reason Admit Date/Time Jan 09, 2019 at 21:14 Initial Consult Date 01/14/19 Type of Consult RENAL no sob no hematuria no abd pain Requesting Provider: LUPE KAPLAN MD Date/Time of Note DATE: 01/16/19 TIME: 15:46 24 HR Interval Summary Constitutional: No chills, No febrile Exam/Review of Systems Exam Vitals Vital Signs Date Temp Pulse Resp B/P (MAP) Pulse Ox O2 O2 Flow FiO2 Time Delivery Rate 01/16/19 96.5 77 22 145/64 96 Room Air 12:13 (91) Intake and Output 01/15/19 01/15/19 01/16/19 1515:00 23:00 07:00 IntakeIntake Total 660 ml 400 ml OutputOutput Total 475 ml 900 ml BalanceBalance 185 ml -500 ml Neck: supple Respiratory: clear to auscultation Cardiovascular: regular rate and rhythm Gastrointestinal: soft, non-tender, bowel sounds (+) Extremities: No edema Results Result Diagram: 01/16/19 0525 01/16/19 0525 Results 24hrs Laboratory Tests Test 01/15/19 17:42 01/15/19 20:13 01/16/19 05:25 01/16/19 07:45 Bedside Glucose 190 103 71 White Blood Count 3.7 #L Red Blood Count 2.96 L Hemoglobin 9.4 L Hematocrit 30.1 L Mean Corpuscular 101.7 H Volume Mean Corpuscular 31.8 Hemoglobin Mean Corpuscular 31.2 L Hemoglobin Concent Red Cell 14.8 H Distribution Width Platelet Count 201 Mean Platelet Volume 10.3 Immature 0.300 Granulocytes % Neutrophils % 63.3 Lymphocytes % 21.4 Monocytes % 12.5 H Eosinophils % 1.4 Basophils % 1.1 Nucleated Red Blood 0.0 Cells % Immature 0.010 Granulocytes # Neutrophils # 2.3 Lymphocytes # 0.8 Monocytes # 0.5 Eosinophils # 0.1 Basophils # 0.0 Nucleated Red Blood 0.0 Cells # Sodium Level 139 Potassium Level 4.8 Chloride Level 105 Carbon Dioxide Level 27 Anion Gap 7 Blood Urea Nitrogen 48 H Creatinine 3.44 H Est Glomerular 18 L Filtrat Rate mL/min Glucose Level 90 Calcium Level 8.8 Test 01/16/19 12:04 Bedside Glucose 125 Medications Medication Current Medications IV Flush (NS 3 ml) 3 ml PER PROTOCOL IV ; Start 01/09/19 at 22:00 Ondansetron HCl (Zofran Inj) 4 mg Q6H PRN IV NAUSEA/VOMITING Last administered on 01/15/19at 20:09; Admin Dose 4 MG; Start 01/09/19 at 22:00 Diagnostic Test (Pha) (Accu-Chek) 1 ea 02 XX Last administered on 01/14/19at 01:16; Admin Dose 1 EA; Start 01/11/19 at 02:00 Miscellaneous Information 1 ea NOTE XX ; Start 01/10/19 at 04:00 Glucose (Glutose) 15 gm Q15M PRN PO DECREASED GLUCOSE; Start 01/10/19 at 04:00 Glucose (Glutose) 22.5 gm Q15M PRN PO DECREASED GLUCOSE; Start 01/10/19 at 04:00 Dextrose (D50w Syringe) 25 ml Q15M PRN IV DECREASED GLUCOSE; Start 01/10/19 at 04:00 Dextrose (D50w Syringe) 50 ml Q15M PRN IV DECREASED GLUCOSE; Start 01/10/19 at 04:00 Glucagon (Glucagen) 1 mg Q15M PRN IM DECREASED GLUCOSE; Start 01/10/19 at 04:00 Glucose (Glutose) 15 gm Q15M PRN BUCCAL DECREASED GLUCOSE; Start 01/10/19 at 04:00 Guaifenesin/ Dextromethorphan (Robitussin Dm Liquid Cup) 10 ml Q6 PRN PO COUGH Last administered on 01/10/19at 16:45; Admin Dose 10 ML; Start 01/10/19 at 10:30 Epoetin Fidencio (Epogen (Esrd)) 3,000 units MoWeFr@17 SC Last administered on 01/13/19 17:47; Admin Dose 3,000 UNITS; Start 01/11/19 at 17:00 Prednisone (Prednisone) 5 mg DAILY PO Last administered on 01/16/19 08:32; Admin Dose 5 MG; Start 01/11/19 at 15:30 Acetaminophen/ Hydrocodone Bitart ([place] (10)) 2 tab Q6H PRN PO MODERATE PAIN LEVEL 4-6 Last administered on 01/16/19 08:42; Admin Dose 2 TAB; Start 01/11/19 at 15:30 Sodium Bicarbonate (Sodium Bicarbonate Tab) 650 mg BID PO Last administered on 01/16/19 08:33; Admin Dose 650 MG; Start 01/11/19 at 21:00 Hydralazine HCl (Apresoline) 25 mg Q12 PO Last administered on 01/16/19 08:33; Admin Dose 25 MG; Start 01/11/19 at 21:00 Insulin Glargine (Lantus) 6 units DAILY@2000 SC Last administered on 01/15/19 20:43; Admin Dose 6 UNITS; Start 01/12/19 at 20:00 Insulin Aspart (Novolog Insulin Pen) 3 unit WITH MEALS SC Last administered on 01/15/19 17:52; Admin Dose 3 UNIT; Start 01/12/19 at 12:00 Insulin Aspart (Novolog Insulin Pen) NOVOLOG *MILD* ALGORITHM WITH MEALS BEDTIME SC Last administered on 01/15/19 17:57; Admin Dose 2 UNIT; Start 01/12/19 at 12:00 Linagliptin (Tradjenta) 5 mg DAILY PO Last administered on 01/16/19 08:33; Admin Dose 5 MG; Start 01/12/19 at 11:30 Escitalopram Oxalate (Lexapro) 10 mg DAILY PO Last administered on 01/16/19 08:32; Admin Dose 10 MG; Start 01/12/19 at 11:30 Tacrolimus (Prograf) 2 mg Q12 PO Last administered on 01/16/19 08:32; Admin Dose 2 MG; Start 01/12/19 at 21:00 Amoxicillin/ Clavulanate Potassium (Augmentin) 500 mg Q12 PO Last administered on 01/16/19 12:02; Admin Dose 500 MG; Start 01/12/19 at 14:00 Pantoprazole (Protonix Tab) 40 mg DAILY@06 PO Last administered on 01/15/19 05:47; Admin Dose 40 MG; Start 01/14/19 at 06:00 Metoclopramide HCl (Reglan) 5 mg Q6H PRN IV NAUSEA AND/OR VOMITING Last admini stered on 01/13/19 13:16; Admin Dose 5 MG; Start 01/13/19 at 13:00 Furosemide (Lasix) 40 mg DAILY PO Last administered on 01/16/19 08:33; Admin Dose 40 MG; Start 01/14/19 at 09:00 Sodium Chloride 50 ml @ 100 mls/hr Q12 IVPB Last administered on 01/16/19 08:39; Admin Dose 100 MLS/HR; Start 01/14/19 at 21:00; Stop 01/29/19 at 23:00 Cefazolin Sodium 50 ml @ 100 mls/hr Q12 IVPB Last administered on 01/16/19 08:35; Admin Dose 100 MLS/HR; Start 01/16/19 at 01:00 SUSANA CHOWDHURY MD Jan 16, 2019 15:50
[2019-01-16] MEDS: INSULIN GLARGINE [LANTus] (100 UNITS/ML) SYG SC SCH (20:48)
--- NOTE | 2019-01-16 21:44 | CONS ---
Assessment/Plan Assessment/Plan Hospital Course (Demo Recall) - Anasarca, improved with IV Lasix - Endocarditis - Dr. Olmstead rec'd call from [facility] 01/15/19 regarding this - completing Augmentin for progressive swelling of distal aspect of right ring finger with x-ray showing further of erosion and lucency involving the distal aspect of the distal phalanx of the right ring finger suspicious for osteomyelitis with improved but slight associated soft tissue swelling. ESR 67. - Hx OM of R 4th digit: swelling with new erosive changes and osteopenia of the underlying R 4th distal phalanx, suggestive of osteomyelitis; wound culture grew Serratia on 03/18/18 and Serratia + CoNS (likely colonizer) on 04/04/18 ; Pt declined amputation. ESR 39 on 03/18/2018. S/p Levaquin x 6 weeks, ESR 60 01/13/19 - Hematoma within the right lateral abdominal wall musculature which has developed since the previous study done 12/13/2018 measuring 7.3 x 4.6 cm in cross diameter and extending an acrylic that dimension approximately 10.7 cm from the level of the superior pole of the [place] right kidney to just inferior to the right iliac crest per CT 01/12/19 - Calcification of the vas deferens with a persistent hydrocele within the scrotum per CT 01/12/19 - Bacteremia d/t MSSA 12/09/2018, repeat blood cx 12/12/18 NGTD - MRSA and K. pneumoniae in urine cx 12/09/2018 - UA was neg for pyuria - Hx mild subtle increased activity within the upper aspect of LUE, nonspecific, on WBC tagged scan on 04/05/2018 - Hx OM of R 3rd fingertip (XR showed periosteal reaction at the tip of R 3rd distal phalanx, suspicious for OM, MRI showed cellulitis of distal R 4th phalanx, without OM) and L 2nd fingertip (XR showed cortical irregularity at the tuft of L 2nd distal phalanx with overlying soft tissue defect, suggesting early OM, MRI showed OM at L 2nd distal phalanx with, cellulitis about L 2nd distal phalanx without drainable fluid collection.) - Hx OM of R 2nd finger s/p amputation at proximal phalanx neck, and h/o OM of L 3rd finger s/p amputation at middle and distal phalanges - Acute on chronic renal failure - Hyperkalemia with metabolic acidosis - slowly improving with sodium bicarb - Hx ESRD, was on HD - S/p renal transplant in 2009 (on tacrolimus, mycophenolate and prednisone), chronic renal insufficiency at baseline - DM - Hgb A1c 10.5% - Hx Juan's esophagus and gastritis s/p EGD on 08/12/2017. No H. pylori on Bx - BLE atherosclerosis - Seen by Vascular Surgery during last admit - Onychomycosis, tinea pedis - Seen by Director Financial Systems during last admit - Rheumatoid arthritis - Chronic HCV infection - HTN - Dyslipidemia - Hx polysubstance and IV drug use. 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 psychosis - on Lexapro - Abdominal distention and pain Recommendations: - Continue PO Augmentin x 4 weeks to complete therapy for OM; S/p Unasyn x2 weeks (12/13/2018-) - Continue cefazolin (01/15/19 - ) for endocarditis - Serial ESR Management discussed with patient, ARJUN Frank, and with Dr. Olmstead Consultation Date/Type/Reason Admit Date/Time Jan 09, 2019 at 21:14 Initial Consult Date 01/14/19 Type of Consult Infectious Disease Requesting Provider: LUPE KAPLAN MD Date/Time of Note DATE: 01/16/19 TIME: 21:43 24 HR Interval Summary Free Text/Dictation Pt denies fever, chills, SOB, n/v/d, dysuria. Denies pain. Pt remains afebrile; no acute issues per d/w nursing. Exam/Review of Systems Exam Vitals Vital Signs Date Temp Pulse Resp B/P (MAP) Pulse Ox O2 O2 Flow FiO2 Time Delivery Rate 01/16/19 82 20:00 01/16/19 98.6 22 140/83 96 Room Air 16:17 (102) Intake and Output 01/15/19 01/15/19 01/16/19 1414:59 22:59 06:59 IntakeIntake Total 660 ml 400 ml OutputOutput Total 475 ml 900 ml BalanceBalance 185 ml -500 ml Exam Constitutional: alert, oriented, frail, other (thin) Psych: no complaints, nl mood/affect Head: normocephalic, atraumatic Eyes: nl conjunctiva, nl lids, nl sclera ENMT: nl external ears & nose, nl nasal mucosa & septum, mucosa pink and moist (no thrush) Neck: supple Respiratory: clear to auscultation, normal air movement Cardiovascular: regular rate and rhythm, nl pulses, murmurs/extra sounds (holosystolic murmur noted) Gastrointestinal: soft, non-tender, bowel sounds (normoactive) Musculoskeletal: other (old LUE AVF graft site with no TTP) Extremities: normal pulses, other (Partial amputation of R 2nd and 3rd fingers and L 2nd and 3rd fingers. R middle finger open to air, dry, without erythema, drainage, swelling, or pain); No edema 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: nl mental status, nl speech, nl strength Skin: nl turgor No rash or lesions Results Result Diagram: 01/16/19 0525 01/16/19 0525 Results 24hrs Laboratory Tests Test 01/16/19 05:25 01/16/19 07:45 01/16/19 12:04 01/16/19 17:12 White Blood Count 3.7 #L Red Blood Count 2.96 L Hemoglobin 9.4 L Hematocrit 30.1 L Mean Corpuscular 101.7 H Volume Mean Corpuscular 31.8 Hemoglobin Mean Corpuscular 31.2 L Hemoglobin Concent Red Cell 14.8 H Distribution Width Platelet Count 201 Mean Platelet Volume 10.3 Immature 0.300 Granulocytes % Neutrophils % 63.3 Lymphocytes % 21.4 Monocytes % 12.5 H Eosinophils % 1.4 Basophils % 1.1 Nucleated Red Blood 0.0 Cells % Immature 0.010 Granulocytes # Neutrophils # 2.3 Lymphocytes # 0.8 Monocytes # 0.5 Eosinophils # 0.1 Basophils # 0.0 Nucleated Red Blood 0.0 Cells # Sodium Level 139 Potassium Level 4.8 Chloride Level 105 Carbon Dioxide Level 27 Anion Gap 7 Blood Urea Nitrogen 48 H Creatinine 3.44 H Est Glomerular 18 L Filtrat Rate mL/min Glucose Level 90 Calcium Level 8.8 Bedside Glucose 71 125 251 H Test 01/16/19 20:37 Bedside Glucose 180 Medications Medication Current Medications IV Flush (NS 3 ml) 3 ml PER PROTOCOL IV ; Start 01/09/19 at 22:00 Ondansetron HCl (Zofran Inj) 4 mg Q6H PRN IV NAUSEA/VOMITING Last administered on 01/15/19 20:09; Admin Dose 4 MG; Start 01/09/19 at 22:00 Diagnostic Test (Pha) (Accu-Chek) 1 ea 02 XX Last administered on 01/14/19at 01:16; Admin Dose 1 EA; Start 01/11/19 at 02:00 Miscellaneous Information 1 ea NOTE XX ; Start 01/10/19 at 04:00 Glucose (Glutose) 15 gm Q15M PRN PO DECREASED GLUCOSE; Start 01/10/19 at 04:00 Glucose (Glutose) 22.5 gm Q15M PRN PO DECREASED GLUCOSE; Start 01/10/19 at 04:00 Dextrose (D50w Syringe) 25 ml Q15M PRN IV DECREASED GLUCOSE; Start 01/10/19 at 04:00 Dextrose (D50w Syringe) 50 ml Q15M PRN IV DECREASED GLUCOSE; Start 01/10/19 at 04:00 Glucagon (Glucagen) 1 mg Q15M PRN IM DECREASED GLUCOSE; Start 01/10/19 at 04:00 Glucose (Glutose) 15 gm Q15M PRN BUCCAL DECREASED GLUCOSE; Start 01/10/19 at 04:00 Guaifenesin/ Dextromethorphan (Robitussin Dm Liquid Cup) 10 ml Q6 PRN PO COUGH Last administered on 01/10/19 16:45; Admin Dose 10 ML; Start 01/10/19 at 10:30 Epoetin Fidencio (Epogen (Esrd)) 3,000 units MoWeFr@17 SC Last administered on 01/13/19 17:47; Admin Dose 3,000 UNITS; Start 01/11/19 at 17:00 Prednisone (Prednisone) 5 mg DAILY PO Last administered on 01/16/19 08:32; Admin Dose 5 MG; Start 01/11/19 at 15:30 Acetaminophen/ Hydrocodone Bitart ([place] (10)) 2 tab Q6H PRN PO MODERATE PAIN LEVEL 4-6 Last administered on 01/16/19 16:32; Admin Dose 2 TAB; Start 01/11/19 at 15:30 Sodium Bicarbonate (Sodium Bicarbonate Tab) 650 mg BID PO Last administered on 01/16/19at 20:38; Admin Dose 650 MG; Start 01/11/19 at 21:00 Hydralazine HCl (Apresoline) 25 mg Q12 PO Last administered on 01/16/19 20:39; Admin Dose 25 MG; Start 01/11/19 at 21:00 Insulin Glargine (Lantus) 6 units DAILY@2000 SC Last administered on 01/16/19 20:48; Admin Dose 6 UNITS; Start 01/12/19 at 20:00 Insulin Aspart (Novolog Insulin Pen) 3 unit WITH MEALS SC Last administered on 01/16/19 17:17; Admin Dose 3 UNIT; Start 01/12/19 at 12:00 Insulin Aspart (Novolog Insulin Pen) NOVOLOG *MILD* ALGORITHM WITH MEALS BEDTIME SC Last administered on 01/16/19 17:18; Admin Dose 3 UNIT; Start 01/12/19 at 12:00 Linagliptin (Tradjenta) 5 mg DAILY PO Last administered on 01/16/19 08:33; Admin Dose 5 MG; Start 01/12/19 at 11:30 Escitalopram Oxalate (Lexapro) 10 mg DAILY PO Last administered on 01/16/19 08:32; Admin Dose 10 MG; Start 01/12/19 at 11:30 Tacrolimus (Prograf) 2 mg Q12 PO Last administered on 01/16/19 20:39; Admin Dose 2 MG; Start 01/12/19 at 21:00 Amoxicillin/ Clavulanate Potassium (Augmentin) 500 mg Q12 PO Last administered on 01/16/19 20:38; Admin Dose 500 MG; Start 01/12/19 at 14:00 Pantoprazole (Protonix Tab) 40 mg DAILY@06 PO Last administered on 01/15/19 05:47; Admin Dose 40 MG; Start 01/14/19 at 06:00 Metoclopramide HCl (Reglan) 5 mg Q6H PRN IV NAUSEA AND/OR VOMITING Last administered on 01/13/19 13:16; Admin Dose 5 MG; Start 01/13/19 at 13:00 Furosemide (Lasix) 40 mg DAILY PO Last administered on 01/16/19 08:33; Admin Dose 40 MG; Start 01/14/19 at 09:00 Sodium Chloride 50 ml @ 100 mls/hr Q12 IVPB Last administered on 01/16/19 20:39; Admin Dose 100 MLS/HR; Start 01/14/19 at 21:00; Stop 01/29/19 at 23:00 Cefazolin Sodium 50 ml @ 100 mls/hr Q12 IVPB Last administered on 01/16/19at 20:38; Admin Dose 100 MLS/HR; Start 01/16/19 at 01:00 CYNTHIA SHANNON NP Jan 16, 2019 21:44
[2019-01-17] VITALS (9 sets, daily range): BP systolic 125–137; BP diastolic 53–79; PULSE 70–101; RESP 18–22
[2019-01-17] MEDS: HYDROCODONE/APAP (10/325) TAB PO PRN ×3 (01:12→20:38)
[2019-01-17] MEDS: ACCU-CHEK XX SCH (02:00)
[2019-01-17] MEDS: PANTOPRAZOLE (EC) 40 MG TAB PO SCH (06:19)
[2019-01-17] MEDS: INSULIN ASPART [NOVOLOG] 3 ML PEN SC SCH ×7 (07:39→20:40)
[2019-01-17] MEDS: ESCITALOPRAM 10 MG TAB PO SCH (08:45)
[2019-01-17] MEDS: AMOXICILLIN/CLAV 500 MG TAB PO SCH ×2 (08:45→20:23)
[2019-01-17] MEDS: LINAGLIPTIN 5 MG TABLET PO SCH (08:46)
[2019-01-17] MEDS: FUROSEMIDE 40 MG TAB PO SCH (08:46)
[2019-01-17] MEDS: NA BICARBONATE 650 MG TAB PO SCH ×2 (08:46→20:22)
[2019-01-17] MEDS: predniSONE 5 MG TAB PO SCH (08:46)
[2019-01-17] MEDS: SOD CHLORIDE 0.9% 50 ML IVPB SCH ×2 (08:47→20:24)
[2019-01-17] MEDS: TACROLIMUS 1 MG CAP PO SCH ×2 (08:47→20:23)
[2019-01-17] MEDS: CEFAZOLIN 1 GM/50 ML (PMX) 50 ML IVPB SCH ×2 (08:48→20:24)
--- NOTE | 2019-01-17 10:29 | CONS ---
Consult Date/Type/Reason Admit Date/Time Jan 09, 2019 at 21:14 Initial Consult Date Type of Consultation: Urology Requesting Provider: LUPE KAPLAN MD Date/Time of Note DATE: 01/17/19 TIME: 10:28 Subjective NO acute events - no ectopy on tele. ROS: No fever, no chills, no nausea, no vomiting, no diarrhea/constipation No recent weight changes No chest pain, no PND, no orthopnea - mild SOB No dizziness, blurred vision No thirst, no heat or cold intolerance Objective Vitals Vital Signs Date Temp Pulse Resp B/P (MAP) Pulse Ox O2 O2 Flow FiO2 Time Delivery Rate 01/17/19 98.1 08:45 01/17/19 70 08:09 01/17/19 22 130/79 96 Room Air 07:47 (96) Intake and Output 01/16/19 01/16/19 01/17/19 1515:00 23:00 07:00 IntakeIntake Total 420 ml 250 ml BalanceBalance 420 ml 250 ml Exam General: WN/WD/NAD, AOx 3 HEENT: Unicetric/atraumatic/EOMI (follow commands) NECK: JVD elevated, no thyromegaly Lymph: no lymphadenopathy HEART: regular with no S3, II/ systolic murmur at apex LUNGS: Coarse sounds ABD: soft, NT, ND, +BS : Intact Neuro: non focal SKIN: chronic changes EXT: trace edema Results/Medications Result Diagram: 01/17/19 0529 01/17/19 0529 Results 24 hrs Laboratory Tests Test 01/16/19 12:04 01/16/19 17:12 01/16/19 20:37 01/17/19 05:29 Bedside Glucose 125 251 H 180 White Blood Count 3.5 L Red Blood Count 2.79 L Hemoglobin 8.9 L Hematocrit 28.7 L Mean Corpuscular 102.9 H Volume Mean Corpuscular 31.9 Hemoglobin Mean Corpuscular 31.0 L Hemoglobin Concent Red Cell 14.7 H Distribution Width Platelet Count 186 Mean Platelet Volume 10.5 H Immature 0.300 Granulocytes % Neutrophils % 62.1 Lymphocytes % 22.7 Monocytes % 13.1 H Eosinophils % 0.9 Basophils % 0.9 Nucleated Red Blood 0.0 Cells % Immature 0.010 Granulocytes # Neutrophils # 2.2 Lymphocytes # 0.8 Monocytes # 0.5 Eosinophils # 0.0 Basophils # 0.0 Nucleated Red Blood 0.0 Cells # Sodium Level 136 Potassium Level 5.1 Chloride Level 102 Carbon Dioxide Level 29 Anion Gap 5 Blood Urea Nitrogen 52 H Creatinine 3.43 H Est Glomerular 19 L Filtrat Rate mL/min Glucose Level 135 # Calcium Level 8.6 Test 01/17/19 07:32 Bedside Glucose 164 Home Meds Reported Medications Cefazolin Sodium in 0.9 % NaCl (Cefazolin 2 G/100 ml-0.9% NaCl) 2 Gm/100 Ml Plast..bag, 2 GM IV Q12 01/12/19 Sitagliptin* (Januvia*) 50 Mg Tablet, 50 MG PO DAILY, #30 TAB 12/09/18 Tacrolimus* (Tacrolimus*) 1 Mg Capsule, 3 MG PO QAM, CAP 12/09/18 Tacrolimus* (Tacrolimus*) 1 Mg Capsule, 2 MG PO QHS, CAP 12/09/18 Mycophenolate Sodium* (Mycophenolic Acid*) 180 Mg Tablet.dr, 540 MG PO Q12, TAB 12/09/18 Prednisone* (Prednisone*) 5 Mg Tab, 5 MG PO DAILY, TAB 12/09/18 Glipizide* (Glipizide*) 5 Mg Tablet, 5 MG PO AC BREAKFAST DINNER, TAB 12/09/18 Clonidine Hcl* (Clonidine Hcl*) 0.1 Mg Tab, 0.1 MG PO DAILY, TAB 12/09/18 Insulin Lispro (Humalog) 100 Unit/1 Ml Cartridge, 2-10 UNITS SQ SLIDING SCALE, EA INSURANECE NOT COVERED THIS INSULIN 09/23/18 Medications Current Medications IV Flush (NS 3 ml) 3 ml PER PROTOCOL IV ; Start 01/09/19 at 22:00 Ondansetron HCl (Zofran Inj) 4 mg Q6H PRN IV NAUSEA/VOMITING Last administered on 01/15/19at 20:09; Admin Dose 4 MG; Start 01/09/19 at 22:00 Diagnostic Test (Pha) (Accu-Chek) 1 ea 02 XX Last administered on 01/14/19at 01:16; Admin Dose 1 EA; Start 01/11/19 at 02:00 Miscellaneous Information 1 ea NOTE XX ; Start 01/10/19 at 04:00 Glucose (Glutose) 15 gm Q15M PRN PO DECREASED GLUCOSE; Start 01/10/19 at 04:00 Glucose (Glutose) 22.5 gm Q15M PRN PO DECREASED GLUCOSE; Start 01/10/19 at 04:00 Dextrose (D50w Syringe) 25 ml Q15M PRN IV DECREASED GLUCOSE; Start 01/10/19 at 04:00 Dextrose (D50w Syringe) 50 ml Q15M PRN IV DECREASED GLUCOSE; Start 01/10/19 at 04:00 Glucagon (Glucagen) 1 mg Q15M PRN IM DECREASED GLUCOSE; Start 01/10/19 at 04:00 Glucose (Glutose) 15 gm Q15M PRN BUCCAL DECREASED GLUCOSE; Start 01/10/19 at 04:00 Guaifenesin/ Dextromethorphan (Robitussin Dm Liquid Cup) 10 ml Q6 PRN PO COUGH Last administered on 01/10/19at 16:45; Admin Dose 10 ML; Start 01/10/19 at 10:30 Epoetin Fidencio (Epogen (Esrd)) 3,000 units MoWeFr@17 SC Last administered on 01/13/19at 17:47; Admin Dose 3,000 UNITS; Start 01/11/19 at 17:00 Prednisone (Prednisone) 5 mg DAILY PO Last administered on 01/17/19 08:46; Admin Dose 5 MG; Start 01/11/19 at 15:30 Acetaminophen/ Hydrocodone Bitart ([place] (10325)) 2 tab Q6H PRN PO MODERATE PAIN LEVEL 4-6 Last administered on 01/17/19at 08:55; Admin Dose 2 TAB; Start 01/11/19 at 15:30 Sodium Bicarbonate (Sodium Bicarbonate Tab) 650 mg BID PO Last administered on 01/17/19 08:46; Admin Dose 650 MG; Start 01/11/19 at 21:00 Hydralazine HCl (Apresoline) 25 mg Q12 PO Last administered on 01/17/19 08:46; Admin Dose 25 MG; Start 01/11/19 at 21:00 Insulin Glargine (Lantus) 6 units DAILY@2000 SC Last administered on 01/16/19at 20:48; Admin Dose 6 UNITS; Start 01/12/19 at 20:00 Insulin Aspart (Novolog Insulin Pen) 3 unit WITH MEALS SC Last administered on 01/17/19 07:39; Admin Dose 3 UNIT; Start 01/12/19 at 12:00 Insulin Aspart (Novolog Insulin Pen) NOVOLOG *MILD* ALGORITHM WITH MEALS BEDTIME SC Last administered on 01/17/19 07:39; Admin Dose 1 UNIT; Start 01/12/19 at 12:00 Linagliptin (Tradjenta) 5 mg DAILY PO Last administered on 01/17/19 08:46; Admin Dose 5 MG; Start 01/12/19 at 11:30 Escitalopram Oxalate (Lexapro) 10 mg DAILY PO Last administered on 01/17/19 08:45; Admin Dose 10 MG; Start 01/12/19 at 11:30 Tacrolimus (Prograf) 2 mg Q12 PO Last administered on 01/17/19 08:47; Admin Dose 2 MG; Start 01/12/19 at 21:00 Amoxicillin/ Clavulanate Potassium (Augmentin) 500 mg Q12 PO Last administered on 01/17/19 08:45; Admin Dose 500 MG; Start 01/12/19 at 14:00 Pantoprazole (Protonix Tab) 40 mg DAILY@06 PO Last administered on 01/17/19 06:19; Admin Dose 40 MG; Start 01/14/19 at 06:00 Metoclopramide HCl (Reglan) 5 mg Q6H PRN IV NAUSEA AND/OR VOMITING Last administered on 01/13/19 13:16; Admin Dose 5 MG; Start 01/13/19 at 13:00 Furosemide (Lasix) 40 mg DAILY PO Last administered on 01/17/19 08:46; Admin Dose 40 MG; Start 01/14/19 at 09:00 Sodium Chloride 50 ml @ 100 mls/hr Q12 IVPB Last administered on 01/17/19 08:47; Admin Dose 100 MLS/HR; Start 01/14/19 at 21:00; Stop 01/29/19 at 23:00 Cefazolin Sodium 50 ml @ 100 mls/hr Q12 IVPB Last administered on 01/17/19 08:48; Admin Dose 100 MLS/HR; Start 01/16/19 at 01:00 Assessment/Plan Hospital Course (Demo Recall) 1. Hypertension-labile, stable now - pt feels tired - better now - will monitor as needed. BETTER now. 2. Gangrenous changes of the patient's finger - defer to surgical team as prior 3. Renal failure on HD - Rx per renal team. Rx per primary team. REnal team follows- K+ in range now. 4. Rheumatoid arthritis - rheum to follow. 5. Diabetes mellitus - on meds, keep euvolemic - on meds. 6. History of Juan's esophagus. 7. Dyslipidemia. 8. Bacteremia-S aureus - Rx with anti-Bx now - ID follows - no new fevers now. 9. Anemia - H/H low, blood RX as needed. RAQUEL BAIRES MD Jan 17, 2019 10:29
--- NOTE | 2019-01-17 14:36 | CONS ---
Consult Date/Type/Reason Admit Date/Time Jan 09, 2019 at 21:14 Initial Consult Date 01/14/19 Type of Consultation: Urology Reason for Consultation Right flank wall hematoma Requesting Provider: LUPE KAPLAN MD Date/Time of Note DATE: 01/17/19 TIME: 14:35 Subjective The patient is feeling better. The pain over the hematoma has decreased Objective Vitals Vital Signs Date Temp Pulse Resp B/P (MAP) Pulse Ox O2 O2 Flow FiO2 Time Delivery Rate 01/17/19 101 12:08 01/17/19 98.1 08:45 01/17/19 22 130/79 96 Room Air 07:47 (96) Intake and Output 01/16/19 01/16/19 01/17/19 1515:00 23:00 07:00 IntakeIntake Total 50 ml 420 ml 250 ml BalanceBalance 50 ml 420 ml 250 ml Exam The area of the hematoma has not increased in size and it is less tense and is softer Results/Medications Result Diagram: 01/17/19 0529 01/17/19 0529 Results 24 hrs Laboratory Tests Test 01/16/19 17:12 01/16/19 20:37 01/17/19 05:29 01/17/19 07:32 Bedside Glucose 251 H 180 164 White Blood Count 3.5 L Red Blood Count 2.79 L Hemoglobin 8.9 L Hematocrit 28.7 L Mean Corpuscular 102.9 H Volume Mean Corpuscular 31.9 Hemoglobin Mean Corpuscular 31.0 L Hemoglobin Concent Red Cell 14.7 H Distribution Width Platelet Count 186 Mean Platelet Volume 10.5 H Immature 0.300 Granulocytes % Neutrophils % 62.1 Lymphocytes % 22.7 Monocytes % 13.1 H Eosinophils % 0.9 Basophils % 0.9 Nucleated Red Blood 0.0 Cells % Immature 0.010 Granulocytes # Neutrophils # 2.2 Lymphocytes # 0.8 Monocytes # 0.5 Eosinophils # 0.0 Basophils # 0.0 Nucleated Red Blood 0.0 Cells # Sodium Level 136 Potassium Level 5.1 Chloride Level 102 Carbon Dioxide Level 29 Anion Gap 5 Blood Urea Nitrogen 52 H Creatinine 3.43 H Est Glomerular 19 L Filtrat Rate mL/min Glucose Level 135 # Calcium Level 8.6 Test 01/17/19 11:53 Bedside Glucose 144 Home Meds Reported Medications Cefazolin Sodium in 0.9 % NaCl (Cefazolin 2 G/100 ml-0.9% NaCl) 2 Gm/100 Ml Plast..bag, 2 GM IV Q12 01/12/19 Sitagliptin* (Januvia*) 50 Mg Tablet, 50 MG PO DAILY, #30 TAB 12/09/18 Tacrolimus* (Tacrolimus*) 1 Mg Capsule, 3 MG PO QAM, CAP 12/09/18 Tacrolimus* (Tacrolimus*) 1 Mg Capsule, 2 MG PO QHS, CAP 12/09/18 Mycophenolate Sodium* (Mycophenolic Acid*) 180 Mg Tablet.dr, 540 MG PO Q12, TAB 12/09/18 Prednisone* (Prednisone*) 5 Mg Tab, 5 MG PO DAILY, TAB 12/09/18 Glipizide* (Glipizide*) 5 Mg Tablet, 5 MG PO AC BREAKFAST DINNER, TAB 12/09/18 Clonidine Hcl* (Clonidine Hcl*) 0.1 Mg Tab, 0.1 MG PO DAILY, TAB 12/09/18 Insulin Lispro (Humalog) 100 Unit/1 Ml Cartridge, 2-10 UNITS SQ SLIDING SCALE, EA INSURANECE NOT COVERED THIS INSULIN 09/23/18 Medications Current Medications IV Flush (NS 3 ml) 3 ml PER PROTOCOL IV ; Start 01/09/19 at 22:00 Ondansetron HCl (Zofran Inj) 4 mg Q6H PRN IV NAUSEA/VOMITING Last administered on 01/15/19at 20:09; Admin Dose 4 MG; Start 01/09/19 at 22:00 Diagnostic Test (Pha) (Accu-Chek) 1 ea 02 XX Last administered on 01/14/19at 01:16; Admin Dose 1 EA; Start 01/11/19 at 02:00 Miscellaneous Information 1 ea NOTE XX ; Start 01/10/19 at 04:00 Glucose (Glutose) 15 gm Q15M PRN PO DECREASED GLUCOSE; Start 01/10/19 at 04:00 Glucose (Glutose) 22.5 gm Q15M PRN PO DECREASED GLUCOSE; Start 01/10/19 at 04:00 Dextrose (D50w Syringe) 25 ml Q15M PRN IV DECREASED GLUCOSE; Start 01/10/19 at 04:00 Dextrose (D50w Syringe) 50 ml Q15M PRN IV DECREASED GLUCOSE; Start 01/10/19 at 04:00 Glucagon (Glucagen) 1 mg Q15M PRN IM DECREASED GLUCOSE; Start 01/10/19 at 04:00 Glucose (Glutose) 15 gm Q15M PRN BUCCAL DECREASED GLUCOSE; Start 01/10/19 at 04:00 Guaifenesin/ Dextromethorphan (Robitussin Dm Liquid Cup) 10 ml Q6 PRN PO COUGH Last administered on 01/10/19 16:45; Admin Dose 10 ML; Start 01/10/19 at 10:30 Epoetin Fidencio (Epogen (Esrd)) 3,000 units MoWeFr@17 SC Last administered on 01/13/19 17:47; Admin Dose 3,000 UNITS; Start 01/11/19 at 17:00 Prednisone (Prednisone) 5 mg DAILY PO Last administered on 01/17/19 08:46; Admin Dose 5 MG; Start 01/11/19 at 15:30 Acetaminophen/ Hydrocodone Bitart ([place] ()) 2 tab Q6H PRN PO MODERATE PAIN LEVEL 4-6 Last administered on 01/17/19 08:55; Admin Dose 2 TAB; Start 01/11/19 at 15:30 Sodium Bicarbonate (Sodium Bicarbonate Tab) 650 mg BID PO Last administered on 01/17/19 08:46; Admin Dose 650 MG; Start 01/11/19 at 21:00 Hydralazine HCl (Apresoline) 25 mg Q12 PO Last administered on 01/17/19 08:46; Admin Dose 25 MG; Start 01/11/19 at 21:00 Insulin Glargine (Lantus) 6 units DAILY@2000 SC Last administered on 01/16/19 20:48; Admin Dose 6 UNITS; Start 01/12/19 at 20:00 Insulin Aspart (Novolog Insulin Pen) 3 unit WITH MEALS SC Last administered on 01/17/19 07:39; Admin Dose 3 UNIT; Start 01/12/19 at 12:00 Insulin Aspart (Novolog Insulin Pen) NOVOLOG *MILD* ALGORITHM WITH MEALS BEDTIME SC Last administered on 01/17/19 07:39; Admin Dose 1 UNIT; Start 01/12/19 at 12:00 Linagliptin (Tradjenta) 5 mg DAILY PO Last administered on 01/17/19 08:46; Admin Dose 5 MG; Start 01/12/19 at 11:30 Escitalopram Oxalate (Lexapro) 10 mg DAILY PO Last administered on 01/17/19 08:45; Admin Dose 10 MG; Start 01/12/19 at 11:30 Tacrolimus (Prograf) 2 mg Q12 PO Last administered on 01/17/19 08:47; Admin Dose 2 MG; Start 01/12/19 at 21:00 Amoxicillin/ Clavulanate Potassium (Augmentin) 500 mg Q12 PO Last administered on 01/17/19 08:45; Admin Dose 500 MG; Start 01/12/19 at 14:00 Pantoprazole (Protonix Tab) 40 mg DAILY@06 PO Last administered on 01/17/19 06:19; Admin Dose 40 MG; Start 01/14/19 at 06:00 Metoclopramide HCl (Reglan) 5 mg Q6H PRN IV NAUSEA AND/OR VOMITING Last administered on 01/13/19 13:16; Admin Dose 5 MG; Start 01/13/19 at 13:00 Furosemide (Lasix) 40 mg DAILY PO Last administered on 01/17/19 08:46; Admin Dose 40 MG; Start 01/14/19 at 09:00 Sodium Chloride 50 ml @ 100 mls/hr Q12 IVPB Last administered on 01/17/19 08:47; Admin Dose 100 MLS/HR; Start 01/14/19 at 21:00; Stop 01/29/19 at 23:00 Cefazolin Sodium 50 ml @ 100 mls/hr Q12 IVPB Last administered on 01/17/19 08:48; Admin Dose 100 MLS/HR; Start 01/16/19 at 01:00 Assessment/Plan Hospital Course (Demo Recall) This is a 58-year-old male who is known to me from prior admission and was admitted again to the hospital with a hyperkalemia. A urological consultation was requested because of a hematoma of the right abdominal wall above the iliac crest on the right side. The patient has also the following problems: -Anemia of acute blood loss, status post blood transfusion -Severe hyperkalemia, s/p Kayexalate. -Bilateral lower extremities and scrotal edema -Right middle finger cellulitis with gangrene, resolving. -Chronic kidney disease stage IV, status post cadaveric kidney transplant in 2009. Diabetes mellitus type 2 with diabetic neuropathy -Atherosclerosis -Hypertension. -History of right fourth finger gangrene -History of Juan's esophagus and severe gastritis. -Chronic HCV infection -Rheumatoid arthritis -History of polysubstance and IV drug use The hematoma that he has is in the right side of the abdomen is stable, it has not increased in size and it is getting smaller and softer. No sign of infection at the present. Plan just observe RAMILA GONZALEZ MD Jan 17, 2019 14:36
--- NOTE | 2019-01-17 15:42 | PN ---
Date/Time of Note Date/Time of Note DATE: 01/17/19 TIME: 15:42 Assessment/Plan VTE Prophylaxis Risk score (from Ns)>0 risk: 2 SCD applied (from Ns): No Lines/Catheters IV Catheter Type (from Nrs): PICC Line Urinary Cath still in place: No Assessment/Plan Hospital Course -Renal hematoma CT of the abdomen and pelvis, Dr. Noguera is following in urology consultation. -Anemia of acute blood loss, status post blood transfusion, continue to monitor H&H. -Severe hyperkalemia, s/p Kayexalate. - Dr. Fofana is following in nephrology consultation. -Endocarditis, continue cefazolin. -Bilateral lower extremities and scrotal edema -Right middle finger cellulitis with gangrene, resolving. Dr. Olmstead is following in infection disease consultation. -Chronic kidney disease stage IV, status post cadaveric kidney transplant in 2009. -Diabetes mellitus type 2 with diabetic neuropathy, hemoglobin A1c is 6.7. Continue Tradjenta, Lantus and NovoLog. -Atherosclerosis -Hypertension. -History of right fourth finger gangrene -History of Juan's esophagus and severe gastritis. -Chronic HCV infection -Rheumatoid arthritis -History of polysubstance and IV drug use Result Diagram: 01/17/19 0529 01/17/19 0529 Results 24hrs Laboratory Tests Test 01/16/19 17:12 01/16/19 20:37 01/17/19 05:29 01/17/19 07:32 Bedside Glucose 251 H 180 164 White Blood Count 3.5 L Red Blood Count 2.79 L Hemoglobin 8.9 L Hematocrit 28.7 L Mean Corpuscular 102.9 H Volume Mean Corpuscular 31.9 Hemoglobin Mean Corpuscular 31.0 L Hemoglobin Concent Red Cell 14.7 H Distribution Width Platelet Count 186 Mean Platelet Volume 10.5 H Immature 0.300 Granulocytes % Neutrophils % 62.1 Lymphocytes % 22.7 Monocytes % 13.1 H Eosinophils % 0.9 Basophils % 0.9 Nucleated Red Blood 0.0 Cells % Immature 0.010 Granulocytes # Neutrophils # 2.2 Lymphocytes # 0.8 Monocytes # 0.5 Eosinophils # 0.0 Basophils # 0.0 Nucleated Red Blood 0.0 Cells # Sodium Level 136 Potassium Level 5.1 Chloride Level 102 Carbon Dioxide Level 29 Anion Gap 5 Blood Urea Nitrogen 52 H Creatinine 3.43 H Est Glomerular 19 L Filtrat Rate mL/min Glucose Level 135 # Calcium Level 8.6 Test 01/17/19 11:53 Bedside Glucose 144 Exam/Review of Systems Exam Vitals Vital Signs Date Temp Pulse Resp B/P (MAP) Pulse Ox O2 O2 Flow FiO2 Time Delivery Rate 01/17/19 101 12:08 01/17/19 98.1 08:45 01/17/19 22 130/79 96 Room Air 07:47 (96) Intake and Output 01/16/19 01/16/19 01/17/19 1515:00 23:00 07:00 IntakeIntake Total 50 ml 420 ml 250 ml BalanceBalance 50 ml 420 ml 250 ml Constitutional: alert, oriented, well developed Psych: nl mood/affect Head: atraumatic Eyes: EOMI, nl lids, nl sclera ENMT: nl external ears & nose Neck: non-tender Respiratory: clear to auscultation Cardiovascular: nl pulses Gastrointestinal: soft, non-tender Musculoskeletal: nl extremities to inspection Extremities: normal pulses 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: nl speech Skin: nl turgor Lymph: nontender Results Results 24hrs Laboratory Tests Test 01/16/19 17:12 01/16/19 20:37 01/17/19 05:29 01/17/19 07:32 Bedside Glucose 251 H 180 164 White Blood Count 3.5 L Red Blood Count 2.79 L Hemoglobin 8.9 L Hematocrit 28.7 L Mean Corpuscular 102.9 H Volume Mean Corpuscular 31.9 Hemoglobin Mean Corpuscular 31.0 L Hemoglobin Concent Red Cell 14.7 H Distribution Width Platelet Count 186 Mean Platelet Volume 10.5 H Immature 0.300 Granulocytes % Neutrophils % 62.1 Lymphocytes % 22.7 Monocytes % 13.1 H Eosinophils % 0.9 Basophils % 0.9 Nucleated Red Blood 0.0 Cells % Immature 0.010 Granulocytes # Neutrophils # 2.2 Lymphocytes # 0.8 Monocytes # 0.5 Eosinophils # 0.0 Basophils # 0.0 Nucleated Red Blood 0.0 Cells # Sodium Level 136 Potassium Level 5.1 Chloride Level 102 Carbon Dioxide Level 29 Anion Gap 5 Blood Urea Nitrogen 52 H Creatinine 3.43 H Est Glomerular 19 L Filtrat Rate mL/min Glucose Level 135 # Calcium Level 8.6 Test 01/17/19 11:53 Bedside Glucose 144 Medications Medication Current Medications IV Flush (NS 3 ml) 3 ml PER PROTOCOL IV ; Start 01/09/19 at 22:00 Ondansetron HCl (Zofran Inj) 4 mg Q6H PRN IV NAUSEA/VOMITING Last administered on 01/15/19at 20:09; Admin Dose 4 MG; Start 01/09/19 at 22:00 Diagnostic Test (Pha) (Accu-Chek) 1 ea 02 XX Last administered on 01/14/19at 01:16; Admin Dose 1 EA; Start 01/11/19 at 02:00 Miscellaneous Information 1 ea NOTE XX ; Start 01/10/19 at 04:00 Glucose (Glutose) 15 gm Q15M PRN PO DECREASED GLUCOSE; Start 01/10/19 at 04:00 Glucose (Glutose) 22.5 gm Q15M PRN PO DECREASED GLUCOSE; Start 01/10/19 at 04:00 Dextrose (D50w Syringe) 25 ml Q15M PRN IV DECREASED GLUCOSE; Start 01/10/19 at 04:00 Dextrose (D50w Syringe) 50 ml Q15M PRN IV DECREASED GLUCOSE; Start 01/10/19 at 04:00 Glucagon (Glucagen) 1 mg Q15M PRN IM DECREASED GLUCOSE; Start 01/10/19 at 04:00 Glucose (Glutose) 15 gm Q15M PRN BUCCAL DECREASED GLUCOSE; Start 01/10/19 at 04:00 Guaifenesin/ Dextromethorphan (Robitussin Dm Liquid Cup) 10 ml Q6 PRN PO COUGH Last administered on 01/10/19at 16:45; Admin Dose 10 ML; Start 01/10/19 at 10:30 Epoetin Fidencio (Epogen (Esrd)) 3,000 units MoWeFr@17 SC Last administered on 01/13/19at 17:47; Admin Dose 3,000 UNITS; Start 01/11/19 at 17:00 Prednisone (Prednisone) 5 mg DAILY PO Last administered on 01/17/19at 08:46; Admin Dose 5 MG; Start 01/11/19 at 15:30 Acetaminophen/ Hydrocodone Bitart ([place] (10325)) 2 tab Q6H PRN PO MODERATE PAIN LEVEL 4-6 Last administered on 01/17/19at 08:55; Admin Dose 2 TAB; Start 01/11/19 at 15:30 Sodium Bicarbonate (Sodium Bicarbonate Tab) 650 mg BID PO Last administered on 01/17/19 08:46; Admin Dose 650 MG; Start 01/11/19 at 21:00 Hydralazine HCl (Apresoline) 25 mg Q12 PO Last administered on 01/17/19 08:46; Admin Dose 25 MG; Start 01/11/19 at 21:00 Insulin Glargine (Lantus) 6 units DAILY@2000 SC Last administered on 01/16/19 20:48; Admin Dose 6 UNITS; Start 01/12/19 at 20:00 Insulin Aspart (Novolog Insulin Pen) 3 unit WITH MEALS SC Last administered on 01/17/19 07:39; Admin Dose 3 UNIT; Start 01/12/19 at 12:00 Insulin Aspart (Novolog Insulin Pen) NOVOLOG *MILD* ALGORITHM WITH MEALS BEDTIME SC Last administered on 01/17/19 07:39; Admin Dose 1 UNIT; Start 01/12/19 at 12:00 Linagliptin (Tradjenta) 5 mg DAILY PO Last administered on 01/17/19 08:46; Admin Dose 5 MG; Start 01/12/19 at 11:30 Escitalopram Oxalate (Lexapro) 10 mg DAILY PO Last administered on 01/17/19 08:45; Admin Dose 10 MG; Start 01/12/19 at 11:30 Tacrolimus (Prograf) 2 mg Q12 PO Last administered on 01/17/19 08:47; Admin Dose 2 MG; Start 01/12/19 at 21:00 Amoxicillin/ Clavulanate Potassium (Augmentin) 500 mg Q12 PO Last administered on 01/17/19 08:45; Admin Dose 500 MG; Start 01/12/19 at 14:00 Pantoprazole (Protonix Tab) 40 mg DAILY@06 PO Last administered on 01/17/19 06:19; Admin Dose 40 MG; Start 01/14/19 at 06:00 Metoclopramide HCl (Reglan) 5 mg Q6H PRN IV NAUSEA AND/OR VOMITING Last administered on 01/13/19 13:16; Admin Dose 5 MG; Start 01/13/19 at 13:00 Furosemide (Lasix) 40 mg DAILY PO Last administered on 01/17/19 08:46; Admin Dose 40 MG; Start 01/14/19 at 09:00 Sodium Chloride 50 ml @ 100 mls/hr Q12 IVPB Last administered on 01/17/19at 08:47; Admin Dose 100 MLS/HR; Start 01/14/19 at 21:00; Stop 01/29/19 at 23:00 Cefazolin Sodium 50 ml @ 100 mls/hr Q12 IVPB Last administered on 01/17/19at 08:48; Admin Dose 100 MLS/HR; Start 01/16/19 at 01:00 EILEEN COBURN Jan 17, 2019 15:42
--- NOTE | 2019-01-17 17:52 | CONS ---
Assessment/Plan Assessment/Plan Hospital Course (Demo Recall) - Anasarca, improved with IV Lasix - Endocarditis -I rec'd call from [facility] 01/15/19 regarding this and plan was to complete cefazolin through 01.29.19 - completing Augmentin for progressive swelling of distal aspect of right ring finger with x-ray showing further of erosion and lucency involving the distal aspect of the distal phalanx of the right ring finger suspicious for osteomyelitis with improved but slight associated soft tissue swelling. ESR 67. - Hx OM of R 4th digit: swelling with new erosive changes and osteopenia of the underlying R 4th distal phalanx, suggestive of osteomyelitis; wound culture grew Serratia on 03/18/18 and Serratia + CoNS (likely colonizer) on 04/04/18 ; Pt de clined amputation. ESR 39 on 03/18/2018. S/p Levaquin x 6 weeks, ESR 60 01/13/19 - Hematoma within the right lateral abdominal wall musculature which has developed since the previous study done 12/13/2018 measuring 7.3 x 4.6 cm in cross diameter and extending an acrylic that dimension approximately 10.7 cm from the level of the superior pole of the [place] right kidney to just inferior to the right iliac crest per CT 01/12/19 - Calcification of the vas deferens with a persistent hydrocele within the scrotum per CT 01/12/19 - Bacteremia d/t MSSA 12/09/2018, repeat blood cx 12/12/18 NGTD - MRSA and K. pneumoniae in urine cx 12/09/2018 - UA was neg for pyuria - Hx mild subtle increased activity within the upper aspect of LUE, nonspecific, on WBC tagged scan on 04/05/2018 - Hx OM of R 3rd fingertip (XR showed periosteal reaction at the tip of R 3rd distal phalanx, suspicious for OM, MRI showed cellulitis of distal R 4th phalanx, without OM) and L 2nd fingertip (XR showed cortical irregularity at the tuft of L 2nd distal phalanx with overlying soft tissue defect, suggesting early OM, MRI showed OM at L 2nd distal phalanx with, cellulitis about L 2nd distal phalanx without drainable fluid collection.) - Hx OM of R 2nd finger s/p amputation at proximal phalanx neck, and h/o OM of L 3rd finger s/p amputation at middle and distal phalanges - Acute on chronic renal failure - Hyperkalemia with metabolic acidosis - slowly improving with sodium bicarb - Hx ESRD, was on HD - S/p renal transplant in 2009 (on tacrolimus, mycophenolate and prednisone), chronic renal insufficiency at baseline - DM - Hgb A1c 10.5% - Hx Juan's esophagus and gastritis s/p EGD on 08/12/2017. No H. pylori on Bx - BLE atherosclerosis - Seen by Vascular Surgery during last admit - Onychomycosis, tinea pedis - Seen by [facility] during last admit - Rheumatoid arthritis - Chronic HCV infection - HTN - Dyslipidemia - Hx polysubstance and IV drug use. 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 psychosis - on Lexapro - Abdominal distention and pain Recommendations: - will d/w pharmacy about consolidating therapy to Unasyn alone for duration - Continue PO Augmentin x 4 weeks to complete therapy for OM; S/p Unasyn x2 weeks (12/13/2018-) - Continue cefazolin (01/15/19 - ) for endocarditis planned through 01.29.19 - Serial ESR - consider rechecking tacrolimus level as noted to be low on 01.23.19 Consultation Date/Type/Reason Admit Date/Time Jan 09, 2019 at 21:14 Initial Consult Date 01/14/19 Type of Consult ID Requesting Provider: LUPE KAPLAN MD Date/Time of Note DATE: 01/17/19 TIME: 17:49 Exam/Review of Systems Exam Vitals Vital Signs Date Temp Pulse Resp B/P (MAP) Pulse Ox O2 O2 Flow FiO2 Time Delivery Rate 01/17/19 74 16:15 01/17/19 97.8 22 137/60 96 Room Air 16:05 (85) Intake and Output 01/16/19 01/16/19 01/17/19 1515:00 23:00 07:00 IntakeIntake Total 50 ml 420 ml 250 ml BalanceBalance 50 ml 420 ml 250 ml Results Result Diagram: 01/17/19 0529 01/17/19 0529 Results 24hrs Laboratory Tests Test 01/16/19 20:37 01/17/19 05:29 01/17/19 07:32 01/17/19 11:53 Bedside Glucose 180 164 144 White Blood Count 3.5 L Red Blood Count 2.79 L Hemoglobin 8.9 L Hematocrit 28.7 L Mean Corpuscular 102.9 H Volume Mean Corpuscular 31.9 Hemoglobin Mean Corpuscular 31.0 L Hemoglobin Concent Red Cell 14.7 H Distribution Width Platelet Count 186 Mean Platelet Volume 10.5 H Immature 0.300 Granulocytes % Neutrophils % 62.1 Lymphocytes % 22.7 Monocytes % 13.1 H Eosinophils % 0.9 Basophils % 0.9 Nucleated Red Blood 0.0 Cells % Immature 0.010 Granulocytes # Neutrophils # 2.2 Lymphocytes # 0.8 Monocytes # 0.5 Eosinophils # 0.0 Basophils # 0.0 Nucleated Red Blood 0.0 Cells # Sodium Level 136 Potassium Level 5.1 Chloride Level 102 Carbon Dioxide Level 29 Anion Gap 5 Blood Urea Nitrogen 52 H Creatinine 3.43 H Est Glomerular 19 L Filtrat Rate mL/min Glucose Level 135 # Calcium Level 8.6 Test 01/17/19 17:06 Bedside Glucose 206 Medications Medication Current Medications IV Flush (NS 3 ml) 3 ml PER PROTOCOL IV ; Start 01/09/19 at 22:00 Ondansetron HCl (Zofran Inj) 4 mg Q6H PRN IV NAUSEA/VOMITING Last administered on 01/15/19at 20:09; Admin Dose 4 MG; Start 01/09/19 at 22:00 Diagnostic Test (Pha) (Accu-Chek) 1 ea 02 XX Last administered on 01/14/19at 01:16; Admin Dose 1 EA; Start 01/11/19 at 02:00 Miscellaneous Information 1 ea NOTE XX ; Start 01/10/19 at 04:00 Glucose (Glutose) 15 gm Q15M PRN PO DECREASED GLUCOSE; Start 01/10/19 at 04:00 Glucose (Glutose) 22.5 gm Q15M PRN PO DECREASED GLUCOSE; Start 01/10/19 at 04:00 Dextrose (D50w Syringe) 25 ml Q15M PRN IV DECREASED GLUCOSE; Start 01/10/19 at 04:00 Dextrose (D50w Syringe) 50 ml Q15M PRN IV DECREASED GLUCOSE; Start 01/10/19 at 04:00 Glucagon (Glucagen) 1 mg Q15M PRN IM DECREASED GLUCOSE; Start 01/10/19 at 04:00 Glucose (Glutose) 15 gm Q15M PRN BUCCAL DECREASED GLUCOSE; Start 01/10/19 at 04:00 Guaifenesin/ Dextromethorphan (Robitussin Dm Liquid Cup) 10 ml Q6 PRN PO COUGH Last administered on 01/10/19 16:45; Admin Dose 10 ML; Start 01/10/19 at 10:30 Epoetin Fidencio (Epogen (Esrd)) 3,000 units MoWeFr@17 SC Last administered on 01/13/19 17:47; Admin Dose 3,000 UNITS; Start 01/11/19 at 17:00 Prednisone (Prednisone) 5 mg DAILY PO Last administered on 01/17/19 08:46; Admin Dose 5 MG; Start 01/11/19 at 15:30 Acetaminophen/ Hydrocodone Bitart ([place] ()) 2 tab Q6H PRN PO MODERATE PAIN LEVEL 4-6 Last administered on 01/17/19 08:55; Admin Dose 2 TAB; Start 01/11/19 at 15:30 Sodium Bicarbonate (Sodium Bicarbonate Tab) 650 mg BID PO Last administered on 01/17/19 08:46; Admin Dose 650 MG; Start 01/11/19 at 21:00 Hydralazine HCl (Apresoline) 25 mg Q12 PO Last administered on 01/17/19 08:46; Admin Dose 25 MG; Start 01/11/19 at 21:00 Insulin Glargine (Lantus) 6 units DAILY@2000 SC Last administered on 01/16/19 20:48; Admin Dose 6 UNITS; Start 01/12/19 at 20:00 Insulin Aspart (Novolog Insulin Pen) 3 unit WITH MEALS SC Last administered on 01/17/19 17:15; Admin Dose 3 UNIT; Start 01/12/19 at 12:00 Insulin Aspart (Novolog Insulin Pen) NOVOLOG *MILD* ALGORITHM WITH MEALS BEDTIME SC Last administered on 01/17/19 17:14; Admin Dose 2 UNIT; Start 01/12/19 at 12:00 Linagliptin (Tradjenta) 5 mg DAILY PO Last administered on 01/17/19 08:46; Admin Dose 5 MG; Start 01/12/19 at 11:30 Escitalopram Oxalate (Lexapro) 10 mg DAILY PO Last administered on 01/17/19 08:45; Admin Dose 10 MG; Start 01/12/19 at 11:30 Tacrolimus (Prograf) 2 mg Q12 PO Last administered on 01/17/19 08:47; Admin Dose 2 MG; Start 01/12/19 at 21:00 Amoxicillin/ Clavulanate Potassium (Augmentin) 500 mg Q12 PO Last administered on 01/17/19 08:45; Admin Dose 500 MG; Start 01/12/19 at 14:00 Pantoprazole (Protonix Tab) 40 mg DAILY@06 PO Last administered on 01/17/19 06:19; Admin Dose 40 MG; Start 01/14/19 at 06:00 Metoclopramide HCl (Reglan) 5 mg Q6H PRN IV NAUSEA AND/OR VOMITING Last administered on 01/13/19 13:16; Admin Dose 5 MG; Start 01/13/19 at 13:00 Furosemide (Lasix) 40 mg DAILY PO Last administered on 01/17/19 08:46; Admin Dose 40 MG; Start 01/14/19 at 09:00 Sodium Chloride 50 ml @ 100 mls/hr Q12 IVPB Last administered on 01/17/19 08:47; Admin Dose 100 MLS/HR; Start 01/14/19 at 21:00; Stop 01/29/19 at 23:00 Cefazolin Sodium 50 ml @ 100 mls/hr Q12 IVPB Last administered on 01/17/19 08:48; Admin Dose 100 MLS/HR; Start 01/16/19 at 01:00 PARAMJIT COTTRELL MD Jan 17, 2019 17:52
--- NOTE | 2019-01-17 18:04 | CONS ---
Assessment/Plan Assessment/Plan Hospital Course (Demo Recall) 1. The patient has chronic renal failure stage IV. 2. The patient has donor renal transplantation in 2009. The patient also has underlying severe diabetic nephropathy. 3 Ultrasound positive for hydro-nephrosis in the right kidney which is unchanged from the prior ultrasound 4 Diabetes. 5 History of Staphylococcus bacteremia off of mycophenolate. 6 Hypertension.. 7. Peripheral vascular disease with amputation. 8. History of hepatitis C. 9 There is a hematoma within the right lateral abdominal wall musculature which has developed since the previous study done 12/13/2018 measuring 7.3 x 4.6 cm in cross diameter and extending an acrylic that dimension approximately 10.7 cm from the level of the superior pole of the [place] right kidney to just inferior to the right iliac crest. plan per gu ck bmp stable Consultation Date/Type/Reason Admit Date/Time Jan 09, 2019 at 21:14 Initial Consult Date 01/14/19 Type of Consult RENAL no sob no hematuria no abd pain labs seen Requesting Provider: LUPE KAPLAN MD Date/Time of Note DATE: 01/17/19 TIME: 18:03 Exam/Review of Systems Exam Vitals Vital Signs Date Temp Pulse Resp B/P (MAP) Pulse Ox O2 O2 Flow FiO2 Time Delivery Rate 01/17/19 74 16:15 01/17/19 97.8 22 137/60 96 Room Air 16:05 (85) Intake and Output 01/16/19 01/16/19 01/17/19 1515:00 23:00 07:00 IntakeIntake Total 50 ml 420 ml 250 ml BalanceBalance 50 ml 420 ml 250 ml Respiratory: clear to auscultation Cardiovascular: regular rate and rhythm Gastrointestinal: soft, bowel sounds (+) Extremities: No edema Results Result Diagram: 01/17/19 0529 01/17/19 0529 Results 24hrs Laboratory Tests Test 01/16/19 20:37 01/17/19 05:29 01/17/19 07:32 01/17/19 11:53 Bedside Glucose 180 164 144 White Blood Count 3.5 L Red Blood Count 2.79 L Hemoglobin 8.9 L Hematocrit 28.7 L Mean Corpuscular 102.9 H Volume Mean Corpuscular 31.9 Hemoglobin Mean Corpuscular 31.0 L Hemoglobin Concent Red Cell 14.7 H Distribution Width Platelet Count 186 Mean Platelet Volume 10.5 H Immature 0.300 Granulocytes % Neutrophils % 62.1 Lymphocytes % 22.7 Monocytes % 13.1 H Eosinophils % 0.9 Basophils % 0.9 Nucleated Red Blood 0.0 Cells % Immature 0.010 Granulocytes # Neutrophils # 2.2 Lymphocytes # 0.8 Monocytes # 0.5 Eosinophils # 0.0 Basophils # 0.0 Nucleated Red Blood 0.0 Cells # Sodium Level 136 Potassium Level 5.1 Chloride Level 102 Carbon Dioxide Level 29 Anion Gap 5 Blood Urea Nitrogen 52 H Creatinine 3.43 H Est Glomerular 19 L Filtrat Rate mL/min Glucose Level 135 # Calcium Level 8.6 Test 01/17/19 17:06 Bedside Glucose 206 Medications Medication Current Medications IV Flush (NS 3 ml) 3 ml PER PROTOCOL IV ; Start 01/09/19 at 22:00 Ondansetron HCl (Zofran Inj) 4 mg Q6H PRN IV NAUSEA/VOMITING Last administered on 01/15/19at 20:09; Admin Dose 4 MG; Start 01/09/19 at 22:00 Diagnostic Test (Pha) (Accu-Chek) 1 ea 02 XX Last administered on 01/14/19at 01:16; Admin Dose 1 EA; Start 01/11/19 at 02:00 Miscellaneous Information 1 ea NOTE XX ; Start 01/10/19 at 04:00 Glucose (Glutose) 15 gm Q15M PRN PO DECREASED GLUCOSE; Start 01/10/19 at 04:00 Glucose (Glutose) 22.5 gm Q15M PRN PO DECREASED GLUCOSE; Start 01/10/19 at 04:00 Dextrose (D50w Syringe) 25 ml Q15M PRN IV DECREASED GLUCOSE; Start 01/10/19 at 04:00 Dextrose (D50w Syringe) 50 ml Q15M PRN IV DECREASED GLUCOSE; Start 01/10/19 at 04:00 Glucagon (Glucagen) 1 mg Q15M PRN IM DECREASED GLUCOSE; Start 01/10/19 at 04:00 Glucose (Glutose) 15 gm Q15M PRN BUCCAL DECREASED GLUCOSE; Start 01/10/19 at 04:00 Guaifenesin/ Dextromethorphan (Robitussin Dm Liquid Cup) 10 ml Q6 PRN PO COUGH Last administered on 01/10/19at 16:45; Admin Dose 10 ML; Start 01/10/19 at 10:30 Epoetin Fidencio (Epogen (Esrd)) 3,000 units MoWeFr@17 SC Last administered on 01/13/19 17:47; Admin Dose 3,000 UNITS; Start 01/11/19 at 17:00 Prednisone (Prednisone) 5 mg DAILY PO Last administered on 01/17/19 08:46; Admin Dose 5 MG; Start 01/11/19 at 15:30 Acetaminophen/ Hydrocodone Bitart ([employer] (10)) 2 tab Q6H PRN PO MODERATE PAIN LEVEL 4-6 Last administered on 01/17/19 08:55; Admin Dose 2 TAB; Start 01/11/19 at 15:30 Sodium Bicarbonate (Sodium Bicarbonate Tab) 650 mg BID PO Last administered on 01/17/19 08:46; Admin Dose 650 MG; Start 01/11/19 at 21:00 Hydralazine HCl (Apresoline) 25 mg Q12 PO Last administered on 01/17/19 08:46; Admin Dose 25 MG; Start 01/11/19 at 21:00 Insulin Glargine (Lantus) 6 units DAILY@2000 SC Last administered on 01/16/19 20:48; Admin Dose 6 UNITS; Start 01/12/19 at 20:00 Insulin Aspart (Novolog Insulin Pen) 3 unit WITH MEALS SC Last administered on 01/17/19 17:15; Admin Dose 3 UNIT; Start 01/12/19 at 12:00 Insulin Aspart (Novolog Insulin Pen) NOVOLOG *MILD* ALGORITHM WITH MEALS BEDTIME SC Last administered on 01/17/19 17:14; Admin Dose 2 UNIT; Start 01/12/19 at 12:00 Linagliptin (Tradjenta) 5 mg DAILY PO Last administered on 01/17/19 08:46; Admin Dose 5 MG; Start 01/12/19 at 11:30 Escitalopram Oxalate (Lexapro) 10 mg DAILY PO Last administered on 01/17/19 08:45; Admin Dose 10 MG; Start 01/12/19 at 11:30 Tacrolimus (Prograf) 2 mg Q12 PO Last administered on 01/17/19 08:47; Admin Dose 2 MG; Start 01/12/19 at 21:00 Amoxicillin/ Clavulanate Potassium (Augmentin) 500 mg Q12 PO Last administered on 01/17/19 08:45; Admin Dose 500 MG; Start 01/12/19 at 14:00 Pantoprazole (Protonix Tab) 40 mg DAILY@06 PO Last administered on 01/17/19 06:19; Admin Dose 40 MG; Start 01/14/19 at 06:00 Metoclopramide HCl (Reglan) 5 mg Q6H PRN IV NAUSEA AND/OR VOMITING Last administered on 01/13/19 13:16; Admin Dose 5 MG; Start 01/13/19 at 13:00 Furosemide (Lasix) 40 mg DAILY PO Last administered on 01/17/19 08:46; Admin Dose 40 MG; Start 01/14/19 at 09:00 Sodium Chloride 50 ml @ 100 mls/hr Q12 IVPB Last administered on 01/17/19 08:47; Admin Dose 100 MLS/HR; Start 01/14/19 at 21:00; Stop 01/29/19 at 23:00 Cefazolin Sodium 50 ml @ 100 mls/hr Q12 IVPB Last administered on 01/17/19 08:48; Admin Dose 100 MLS/HR; Start 01/16/19 at 01:00 SUSANA CHOWDHURY MD Jan 17, 2019 18:03
[2019-01-17] MEDS: INSULIN GLARGINE [LANTus] (100 UNITS/ML) SYG SC SCH (20:40)
[2019-01-18] VITALS (11 sets, daily range): BP systolic 129–181; BP diastolic 58–84; PULSE 64–99; RESP 16–18
[2019-01-18] MEDS: ACCU-CHEK XX SCH (02:00)
[2019-01-18] MEDS: PANTOPRAZOLE (EC) 40 MG TAB PO SCH (06:36)
[2019-01-18] MEDS: INSULIN ASPART [NOVOLOG] 3 ML PEN SC SCH ×7 (07:52→20:36)
[2019-01-18] MEDS: ONDANSETRON 4 MG INJ IV PRN (08:09)
[2019-01-18] MEDS: CEFAZOLIN 1 GM/50 ML (PMX) 50 ML IVPB SCH ×2 (08:18→20:35)
[2019-01-18] MEDS: SOD CHLORIDE 0.9% 50 ML IVPB SCH ×2 (08:21→20:35)
--- NOTE | 2019-01-18 10:41 | CONS ---
Assessment/Plan Assessment/Plan Assessment/Plan (Daily) 58-year-old male who presented with: 1. Severe hyperkalemia. The patient has chronic renal failure stage IV. This could be secondary to renal failure. Rule out Prograf toxicity. The patient also has metabolic acidosis that could contribute to that. 4. Chronic kidney disease stage IV. The patient has donor renal transplantation in 2009. The patient also has underlying severe diabetic nephropathy. Creatinine has been 3.5-3.6 range since last discharge 5. Non-gap metabolic acidosis likely secondary to renal failure. Rule out obstruction. Ultrasound positive for hydro-nephrosis in the right kidney which is unchanged from the prior ultrasound 6. Anasarca likely secondary to underlying renal failure/ Proteinuria 7. Diabetes. 8. donor renal transplantation in 2009. 9. History of Staphylococcus bacteremia off of mycophenolate. 10. Hypertension. 11. Diabetes. 12. Peripheral vascular disease with amputation. 13. History of hepatitis C. 14 There is a hematoma within the right lateral abdominal wall musculature which has developed since the previous study done 12/13/2018 measuring 7.3 x 4.6 cm in cross diameter and extending an acrylic that dimension approximately 10.7 cm from the level of the superior pole of the [place] right kidney to just inferior to the right iliac crest. plan - cr Stable -Fluid restriction -Hold off sodium bicarb for now -On Lasix 40 -cw Prograf to 2/.2, continue with prednisone 5, recheck Prograf levels -Antibiotics per ID -Hold mycophenolate until the infection is cleared -monitor BMP -Strict i and O Consultation Date/Type/Reason Admit Date/Time Jan 09, 2019 at 21:14 Initial Consult Date Requesting Provider: LUPE KAPLAN MD Date/Time of Note DATE: 01/18/19 TIME: 10:39 24 HR Interval Summary Free Text/Dictation Nausea. Exam/Review of Systems Exam Vitals Vital Signs Date Temp Pulse Resp B/P (MAP) Pulse Ox O2 O2 Flow FiO2 Time Delivery Rate 01/18/19 72 08:54 01/18/19 98.0 16 135/73 100 Room Air 07:40 (93) Intake and Output 01/17/19 01/17/19 01/18/19 1515:00 23:00 07:00 IntakeIntake Total 50 ml 530 ml 1300 ml OutputOutput Total 350 ml 650 ml BalanceBalance 50 ml 180 ml 650 ml Exam Exam GENERAL: The patient is well-developed, well-nourished male, who does not appear to in any acute distress. HEENT: Pupils are equal, round and reactive to light. NECK: Supple. LUNGS: Decreased breath sounds bilaterally. ABDOMEN: Soft, nontender. The patient has positive bowel sounds. No tenderness appreciated at renal transplant site. EXTREMITIES: There is 1 to 2+ edema. Improved GENITOURINARY: The patient has marked scrotal edema. Bruising noted on the right flank upper abdomen improving Results Result Diagram: 01/18/19 0500 01/18/19 0500 Results 24hrs Laboratory Tests Test 01/17/19 11:53 01/17/19 17:06 01/17/19 20:22 01/18/19 05:00 Bedside Glucose 144 206 189 White Blood Count 3.6 L Red Blood Count 2.92 L Hemoglobin 9.3 L Hematocrit 29.9 L Mean Corpuscular 102.4 H Volume Mean Corpuscular 31.8 Hemoglobin Mean Corpuscular 31.1 L Hemoglobin Concent Red Cell 14.6 H Distribution Width Platelet Count 198 Mean Platelet Volume 10.1 Immature 0.300 Granulocytes % Neutrophils % 61.5 Lymphocytes % 23.7 Monocytes % 12.9 H Eosinophils % 0.8 Basophils % 0.8 Nucleated Red Blood 0.0 Cells % Immature 0.010 Granulocytes # Neutrophils # 2.2 Lymphocytes # 0.9 Monocytes # 0.5 Eosinophils # 0.0 Basophils # 0.0 Nucleated Red Blood 0.0 Cells # Sodium Level 143 Potassium Level 4.8 Chloride Level 103 Carbon Dioxide Level 28 Anion Gap 12 # Blood Urea Nitrogen 55 H Creatinine 3.31 H Est Glomerular 19 L Filtrat Rate mL/min Glucose Level 60 #L Calcium Level 9.1 Test 01/18/19 07:47 01/18/19 08:26 01/18/19 08:38 Bedside Glucose 61 L 242 H 186 Medications Medication Current Medications IV Flush (NS 3 ml) 3 ml PER PROTOCOL IV ; Start 01/09/19 at 22:00 Ondansetron HCl (Zofran Inj) 4 mg Q6H PRN IV NAUSEA/VOMITING Last administered on 01/18/19at 08:09; Admin Dose 4 MG; Start 01/09/19 at 22:00 Diagnostic Test (Pha) (Accu-Chek) 1 ea 02 XX Last administered on 01/14/19at 01:16; Admin Dose 1 EA; Start 01/11/19 at 02:00 Miscellaneous Information 1 ea NOTE XX ; Start 01/10/19 at 04:00 Glucose (Glutose) 15 gm Q15M PRN PO DECREASED GLUCOSE; Start 01/10/19 at 04:00 Glucose (Glutose) 22.5 gm Q15M PRN PO DECREASED GLUCOSE; Start 01/10/19 at 04:00 Dextrose (D50w Syringe) 25 ml Q15M PRN IV DECREASED GLUCOSE; Start 01/10/19 at 04:00 Dextrose (D50w Syringe) 50 ml Q15M PRN IV DECREASED GLUCOSE Last administered on 01/18/19at 08:10; Admin Dose 50 ML; Start 01/10/19 at 04:00 Glucagon (Glucagen) 1 mg Q15M PRN IM DECREASED GLUCOSE; Start 01/10/19 at 04:00 Glucose (Glutose) 15 gm Q15M PRN BUCCAL DECREASED GLUCOSE; Start 01/10/19 at 04:00 Guaifenesin/ Dextromethorphan (Robitussin Dm Liquid Cup) 10 ml Q6 PRN PO COUGH Last administered on 01/10/19at 16:45; Admin Dose 10 ML; Start 01/10/19 at 10:30 Epoetin Fidencio (Epogen (Esrd)) 3,000 units MoWeFr@17 SC Last administered on 01/13/19at 17:47; Admin Dose 3,000 UNITS; Start 01/11/19 at 17:00 Prednisone (Prednisone) 5 mg DAILY PO Last administered on 01/17/19at 08:46; Admin Dose 5 MG; Start 01/11/19 at 15:30 Acetaminophen/ Hydrocodone Bitart ([place] (10)) 2 tab Q6H PRN PO MODERATE PAIN LEVEL 4-6 Last administered on 01/17/19at 20:38; Admin Dose 2 TAB; Start 01/11/19 at 15:30 Hydralazine HCl (Apresoline) 25 mg Q12 PO Last administered on 01/17/19at 20:27; Admin Dose 25 MG; Start 01/11/19 at 21:00 Insulin Glargine (Lantus) 6 units DAILY@2000 SC Last administered on 01/17/19at 20:40; Admin Dose 6 UNITS; Start 01/12/19 at 20:00 Insulin Aspart (Novolog Insulin Pen) 3 unit WITH MEALS SC Last administered on 01/17/19 17:15; Admin Dose 3 UNIT; Start 01/12/19 at 12:00 Insulin Aspart (Novolog Insulin Pen) NOVOLOG *MILD* ALGORITHM WITH MEALS BEDTIME SC Last administered on 01/17/19 20:40; Admin Dose 1 UNIT; Start 01/12/19 at 12:00 Linagliptin (Tradjenta) 5 mg DAILY PO Last administered on 01/17/19 08:46; Admin Dose 5 MG; Start 01/12/19 at 11:30 Escitalopram Oxalate (Lexapro) 10 mg DAILY PO Last administered on 01/17/19 08:45; Admin Dose 10 MG; Start 01/12/19 at 11:30 Tacrolimus (Prograf) 2 mg Q12 PO Last administered on 01/17/19 20:23; Admin Dose 2 MG; Start 01/12/19 at 21:00 Amoxicillin/ Clavulanate Potassium (Augmentin) 500 mg Q12 PO Last administered on 01/17/19 20:23; Admin Dose 500 MG; Start 01/12/19 at 14:00 Pantoprazole (Protonix Tab) 40 mg DAILY@06 PO Last administered on 01/18/19 06:36; Admin Dose 40 MG; Start 01/14/19 at 06:00 Metoclopramide HCl (Reglan) 5 mg Q6H PRN IV NAUSEA AND/OR VOMITING Last administered on 01/13/19 13:16; Admin Dose 5 MG; Start 01/13/19 at 13:00 Furosemide (Lasix) 40 mg DAILY PO Last administered on 01/17/19 08:46; Admin Dose 40 MG; Start 01/14/19 at 09:00 Sodium Chloride 50 ml @ 100 mls/hr Q12 IVPB Last administered on 01/18/19 08:21; Admin Dose 100 MLS/HR; Start 01/14/19 at 21:00; Stop 01/29/19 at 23:00 Cefazolin Sodium 50 ml @ 100 mls/hr Q12 IVPB Last administered on 01/18/19 08:18; Admin Dose 100 MLS/HR; Start 01/16/19 at 01:00 HARVINDER BLOOD MD Jan 18, 2019 10:41
--- NOTE | 2019-01-18 11:42 | CONS ---
Assessment/Plan Assessment/Plan Hospital Course (Demo Recall) IMPRESSION: 1. Hypertension, currently uncontrolled. 2. Congestive heart failure, diastolic by most recent echo in 12/2018, EF 60- 65%, acute on chronic. 3. Abnormal electrocardiogram with anteroseptal Q's. Assess for acute coronary syndrome. 4. Chronic kidney disease, status post prior cadaveric renal transplant. 5. Rheumatoid arthritis. 6. Diabetes mellitus. 7. Prior gangrenous changes of fingertip, managed conservatively due to the patient's preference. 8. Hyperkalemia, ongoing. 9. Dnsso-fk-yyldkfj renal failure. 10. Anemia- s/p transfusions 11. Abdominal hematoma-? etiology 12.? endocarditis-Dx at OSH and supposed to still be on abx course Recc: -Tele -Continue hydralazine with slight increase and follow BP clsoely -Immunosuppresives currently held n the setting of infection -Continue abx's and f/u cx data -Contiue daily lasix -Continue steroids Consultation Date/Type/Reason Admit Date/Time Jan 09, 2019 at 21:14 Initial Consult Date 01/12/19 Type of Consult Cardiology Reason for Consultation HTN Requesting Provider: LUPE KAPLAN MD Date/Time of Note DATE: 01/18/19 TIME: 11:39 Exam/Review of Systems Vital Signs Vitals Vital Signs Date Temp Pulse Resp B/P (MAP) Pulse Ox O2 O2 Flow FiO2 Time Delivery Rate 01/18/19 97.9 81 16 152/64 99 Room Air 11:30 (93) Intake and Output 01/17/19 01/17/19 01/18/19 1515:00 23:00 07:00 IntakeIntake Total 50 ml 530 ml 1300 ml OutputOutput Total 350 ml 650 ml BalanceBalance 50 ml 180 ml 650 ml Exam Exam Review of Systems: CONSTITUTIONAL: No fevers, chills. PULMONARY: No sob CARDIOVASCULAR: No chest pain/palpitations GASTROINTESTINAL: No nausea/vomiting. GENITOURINARY: No hematuria/dysuria. MUSCULOSKELETAL: No myagias/arthalgias. PSYCHIATRIC: The patient denies depression. NEUROLOGIC: No weakness Constitutional: other (sleeping) Psych: no complaints Head: normocephalic ENMT: mucosa pink and moist Neck: supple, jvd (9 cm water) Respiratory: diminished breath sounds (at bases/B) Cardiovascular: regular rate and rhythm Gastrointestinal: soft, non-tender Musculoskeletal: muscle tone (normal) Extremities: edema (none) Labs Result Diagram: 01/18/19 0500 01/18/19 0500 Results 24hrs Laboratory Tests Test 01/17/19 11:53 01/17/19 17:06 01/17/19 20:22 01/18/19 05:00 Bedside Glucose 144 206 189 White Blood Count 3.6 L Red Blood Count 2.92 L Hemoglobin 9.3 L Hematocrit 29.9 L Mean Corpuscular 102.4 H Volume Mean Corpuscular 31.8 Hemoglobin Mean Corpuscular 31.1 L Hemoglobin Concent Red Cell 14.6 H Distribution Width Platelet Count 198 Mean Platelet Volume 10.1 Immature 0.300 Granulocytes % Neutrophils % 61.5 Lymphocytes % 23.7 Monocytes % 12.9 H Eosinophils % 0.8 Basophils % 0.8 Nucleated Red Blood 0.0 Cells % Immature 0.010 Granulocytes # Neutrophils # 2.2 Lymphocytes # 0.9 Monocytes # 0.5 Eosinophils # 0.0 Basophils # 0.0 Nucleated Red Blood 0.0 Cells # Sodium Level 143 Potassium Level 4.8 Chloride Level 103 Carbon Dioxide Level 28 Anion Gap 12 # Blood Urea Nitrogen 55 H Creatinine 3.31 H Est Glomerular 19 L Filtrat Rate mL/min Glucose Level 60 #L Calcium Level 9.1 Test 01/18/19 07:47 01/18/19 08:26 01/18/19 08:38 01/18/19 11:32 Bedside Glucose 61 L 242 H 186 99 Medications Medications Current Medications IV Flush (NS 3 ml) 3 ml PER PROTOCOL IV ; Start 01/09/19 at 22:00 Ondansetron HCl (Zofran Inj) 4 mg Q6H PRN IV NAUSEA/VOMITING Last administered on 01/18/19at 08:09; Admin Dose 4 MG; Start 01/09/19 at 22:00 Diagnostic Test (Pha) (Accu-Chek) 1 ea 02 XX Last administered on 01/14/19at 01:16; Admin Dose 1 EA; Start 01/11/19 at 02:00 Miscellaneous Information 1 ea NOTE XX ; Start 01/10/19 at 04:00 Glucose (Glutose) 15 gm Q15M PRN PO DECREASED GLUCOSE; Start 01/10/19 at 04:00 Glucose (Glutose) 22.5 gm Q15M PRN PO DECREASED GLUCOSE; Start 01/10/19 at 04:00 Dextrose (D50w Syringe) 25 ml Q15M PRN IV DECREASED GLUCOSE; Start 01/10/19 at 04:00 Dextrose (D50w Syringe) 50 ml Q15M PRN IV DECREASED GLUCOSE Last administered on 01/18/19 08:10; Admin Dose 50 ML; Start 01/10/19 at 04:00 Glucagon (Glucagen) 1 mg Q15M PRN IM DECREASED GLUCOSE; Start 01/10/19 at 04:00 Glucose (Glutose) 15 gm Q15M PRN BUCCAL DECREASED GLUCOSE; Start 01/10/19 at 04:00 Guaifenesin/ Dextromethorphan (Robitussin Dm Liquid Cup) 10 ml Q6 PRN PO COUGH Last administered on 01/10/19 16:45; Admin Dose 10 ML; Start 01/10/19 at 10:30 Epoetin Fidencio (Epogen (Esrd)) 3,000 units MoWeFr@17 SC Last administered on 01/13/19at 17:47; Admin Dose 3,000 UNITS; Start 01/11/19 at 17:00 Prednisone (Prednisone) 5 mg DAILY PO Last administered on 01/17/19 08:46; Adm in Dose 5 MG; Start 01/11/19 at 15:30 Acetaminophen/ Hydrocodone Bitart ([place] (10/325)) 2 tab Q6H PRN PO MODERATE PAIN LEVEL 4-6 Last administered on 01/17/19 20:38; Admin Dose 2 TAB; Start 01/11/19 at 15:30 Hydralazine HCl (Apresoline) 25 mg Q12 PO Last administered on 01/17/19 20:27; Admin Dose 25 MG; Start 01/11/19 at 21:00 Insulin Glargine (Lantus) 6 units DAILY@2000 SC Last administered on 01/17/19 20:40; Admin Dose 6 UNITS; Start 01/12/19 at 20:00 Insulin Aspart (Novolog Insulin Pen) 3 unit WITH MEALS SC Last administered on 01/17/19 17:15; Admin Dose 3 UNIT; Start 01/12/19 at 12:00 Insulin Aspart (Novolog Insulin Pen) NOVOLOG *MILD* ALGORITHM WITH MEALS BEDTIME SC Last administered on 01/17/19 20:40; Admin Dose 1 UNIT; Start 01/12/19 at 12:00 Linagliptin (Tradjenta) 5 mg DAILY PO Last administered on 01/17/19 08:46; Admin Dose 5 MG; Start 01/12/19 at 11:30 Escitalopram Oxalate (Lexapro) 10 mg DAILY PO Last administered on 01/17/19 08:45; Admin Dose 10 MG; Start 01/12/19 at 11:30 Tacrolimus (Prograf) 2 mg Q12 PO Last administered on 01/17/19 20:23; Admin Dose 2 MG; Start 01/12/19 at 21:00 Amoxicillin/ Clavulanate Potassium (Augmentin) 500 mg Q12 PO Last administered on 01/17/19 20:23; Admin Dose 500 MG; Start 01/12/19 at 14:00 Pantoprazole (Protonix Tab) 40 mg DAILY@06 PO Last administered on 01/18/19 06:36; Admin Dose 40 MG; Start 01/14/19 at 06:00 Metoclopramide HCl (Reglan) 5 mg Q6H PRN IV NAUSEA AND/OR VOMITING Last administered on 01/13/19 13:16; Admin Dose 5 MG; Start 01/13/19 at 13:00 Furosemide (Lasix) 40 mg DAILY PO Last administered on 01/17/19 08:46; Admin Dose 40 MG; Start 01/14/19 at 09:00 Sodium Chloride 50 ml @ 100 mls/hr Q12 IVPB Last administered on 01/18/19 08:21; Admin Dose 100 MLS/HR; Start 01/14/19 at 21:00; Stop 01/29/19 at 23:00 Cefazolin Sodium 50 ml @ 100 mls/hr Q12 IVPB Last administered on 01/18/19 08:18; Admin Dose 100 MLS/HR; Start 01/16/19 at 01:00 ABDELRAHMAN KNOTT 18, 2019 11:42
[2019-01-18] MEDS: HYDROCODONE/APAP (10/325) TAB PO PRN ×2 (11:52→18:10)
[2019-01-18] MEDS: ESCITALOPRAM 10 MG TAB PO SCH (11:53)
[2019-01-18] MEDS: predniSONE 5 MG TAB PO SCH (11:53)
[2019-01-18] MEDS: TACROLIMUS 1 MG CAP PO SCH ×2 (11:53→20:35)
[2019-01-18] MEDS: AMOXICILLIN/CLAV 500 MG TAB PO SCH ×2 (11:53→20:35)
[2019-01-18] MEDS: LINAGLIPTIN 5 MG TABLET PO SCH (11:54)
[2019-01-18] MEDS: FUROSEMIDE 40 MG TAB PO SCH (11:55)
[2019-01-18] MEDS: EPOETIN 3000 UNITS/1 ML INJ (ESRD) SC SCH (17:00)
--- NOTE | 2019-01-18 17:09 | PN ---
Date/Time of Note Date/Time of Note DATE: 01/18/19 TIME: 17:08 Assessment/Plan VTE Prophylaxis Risk score (from Ns)>0 risk: 4 SCD applied (from [facility] [place]): No SCD contraindicated: patient refusal Pharmacological prophylaxis: NA/contraindicated Pharm contraindication: bleeding Lines/Catheters IV Catheter Type (from [facility]): PICC Line Central line still needed: Yes Urinary Cath still in place: No Assessment/Plan Hospital Course The patient complains of significant nausea, unable to eat, patient stated that he does not like hospital food, patient is willing to go home will ask case management to arrange to continue antibiotics with home health IV services for treatment of endocarditis and right middle finger infection. Assessment/Plan -Renal hematoma CT of the abdomen and pelvis, clinically improved. Dr. Noguera is following in urology consultation. -Anemia of acute blood loss, status post blood transfusion, continue to monitor H&H. -Severe hyperkalemia, s/p Kayexalate. Dr. Fofana is following in nephrology consultation. -Endocarditis, continue cefazolin. -Bilateral lower extremities and scrotal edema -Right middle finger cellulitis with gangrene, resolving. Dr. Olmstead is following in infection disease consultation. -Chronic kidney disease stage IV, status post cadaveric kidney transplant in 2009. -Diabetes mellitus type 2 with diabetic neuropathy, hemoglobin A1c is 6.7. Continue Tradjenta, Lantus and NovoLog. -Atherosclerosis -Hypertension. -History of right fourth finger gangrene -History of Juan's esophagus and severe gastritis. -Chronic HCV infection -Rheumatoid arthritis -History of polysubstance and IV drug use Further recommendations based on clinical course. Plan of care discussed with Dr. Maier. Result Diagram: 01/18/19 0500 01/18/19 0500 Results 24hrs Laboratory Tests Test 01/17/19 20:22 01/18/19 05:00 01/18/19 07:47 01/18/19 08:26 Bedside Glucose 189 61 L 242 H White Blood Count 3.6 L Red Blood Count 2.92 L Hemoglobin 9.3 L Hematocrit 29.9 L Mean Corpuscular 102.4 H Volume Mean Corpuscular 31.8 Hemoglobin Mean Corpuscular 31.1 L Hemoglobin Concent Red Cell 14.6 H Distribution Width Platelet Count 198 Mean Platelet Volume 10.1 Immature 0.300 Granulocytes % Neutrophils % 61.5 Lymphocytes % 23.7 Monocytes % 12.9 H Eosinophils % 0.8 Basophils % 0.8 Nucleated Red Blood 0.0 Cells % Immature 0.010 Granulocytes # Neutrophils # 2.2 Lymphocytes # 0.9 Monocytes # 0.5 Eosinophils # 0.0 Basophils # 0.0 Nucleated Red Blood 0.0 Cells # Sodium Level 143 Potassium Level 4.8 Chloride Level 103 Carbon Dioxide Level 28 Anion Gap 12 # Blood Urea Nitrogen 55 H Creatinine 3.31 H Est Glomerular 19 L Filtrat Rate mL/min Glucose Level 60 #L Calcium Level 9.1 Test 01/18/19 08:38 01/18/19 11:32 Bedside Glucose 186 99 Exam/Review of Systems Exam Vitals Vital Signs Date Temp Pulse Resp B/P (MAP) Pulse Ox O2 O2 Flow FiO2 Time Delivery Rate 01/18/19 64 16:30 01/18/19 17 129/84 Room Air 15:59 (99) 01/18/19 98.1 100 15:28 Intake and Output 01/17/19 01/17/19 01/18/19 1515:00 23:00 07:00 IntakeIntake Total 50 ml 530 ml 1300 ml OutputOutput Total 350 ml 650 ml BalanceBalance 50 ml 180 ml 650 ml Exam Constitutional: alert, oriented Neck: supple Respiratory: clear to auscultation Cardiovascular: regular rate and rhythm Gastrointestinal: soft, non-tender Musculoskeletal: nl extremities to inspection Extremities: edema, other (Right third fingertip dry wound) Results Results 24hrs Laboratory Tests Test 01/17/19 20:22 01/18/19 05:00 01/18/19 07:47 01/18/19 08:26 Bedside Glucose 189 61 L 242 H White Blood Count 3.6 L Red Blood Count 2.92 L Hemoglobin 9.3 L Hematocrit 29.9 L Mean Corpuscular 102.4 H Volume Mean Corpuscular 31.8 Hemoglobin Mean Corpuscular 31.1 L Hemoglobin Concent Red Cell 14.6 H Distribution Width Platelet Count 198 Mean Platelet Volume 10.1 Immature 0.300 Granulocytes % Neutrophils % 61.5 Lymphocytes % 23.7 Monocytes % 12.9 H Eosinophils % 0.8 Basophils % 0.8 Nucleated Red Blood 0.0 Cells % Immature 0.010 Granulocytes # Neutrophils # 2.2 Lymphocytes # 0.9 Monocytes # 0.5 Eosinophils # 0.0 Basophils # 0.0 Nucleated Red Blood 0.0 Cells # Sodium Level 143 Potassium Level 4.8 Chloride Level 103 Carbon Dioxide Level 28 Anion Gap 12 # Blood Urea Nitrogen 55 H Creatinine 3.31 H Est Glomerular 19 L Filtrat Rate mL/min Glucose Level 60 #L Calcium Level 9.1 Test 01/18/19 08:38 01/18/19 11:32 Bedside Glucose 186 99 Medications Medication Current Medications IV Flush (NS 3 ml) 3 ml PER PROTOCOL IV ; Start 01/09/19 at 22:00 Ondansetron HCl (Zofran Inj) 4 mg Q6H PRN IV NAUSEA/VOMITING Last administered on 01/18/19 08:09; Admin Dose 4 MG; Start 01/09/19 at 22:00 Diagnostic Test (Pha) (Accu-Chek) 1 ea 02 XX Last administered on 01/14/19at 01:16; Admin Dose 1 EA; Start 01/11/19 at 02:00 Miscellaneous Information 1 ea NOTE XX ; Start 01/10/19 at 04:00 Glucose (Glutose) 15 gm Q15M PRN PO DECREASED GLUCOSE; Start 01/10/19 at 04:00 Glucose (Glutose) 22.5 gm Q15M PRN PO DECREASED GLUCOSE; Start 01/10/19 at 04:00 Dextrose (D50w Syringe) 25 ml Q15M PRN IV DECREASED GLUCOSE; Start 01/10/19 at 04:00 Dextrose (D50w Syringe) 50 ml Q15M PRN IV DECREASED GLUCOSE Last administered on 01/18/19at 08:10; Admin Dose 50 ML; Start 01/10/19 at 04:00 Glucagon (Glucagen) 1 mg Q15M PRN IM DECREASED GLUCOSE; Start 01/10/19 at 04:00 Glucose (Glutose) 15 gm Q15M PRN BUCCAL DECREASED GLUCOSE; Start 01/10/19 at 04:00 Guaifenesin/ Dextromethorphan (Robitussin Dm Liquid Cup) 10 ml Q6 PRN PO COUGH Last administered on 01/10/19at 16:45; Admin Dose 10 ML; Start 01/10/19 at 10:30 Epoetin Fidencio (Epogen (Esrd)) 3,000 units MoWeFr@17 SC Last administered on 01/13/19at 17:47; Admin Dose 3,000 UNITS; Start 01/11/19 at 17:00 Prednisone (Prednisone) 5 mg DAILY PO Last administered on 01/18/19 11:53; Admin Dose 5 MG; Start 01/11/19 at 15:30 Acetaminophen/ Hydrocodone Bitart ([place] (10)) 2 tab Q6H PRN PO MODERATE PAIN LEVEL 4-6 Last administered on 01/18/19 11:52; Admin Dose 2 TAB; Start 01/11/19 at 15:30 Insulin Glargine (Lantus) 6 units DAILY@2000 SC Last administered on 01/17/19 20:40; Admin Dose 6 UNITS; Start 01/12/19 at 20:00 Insulin Aspart (Novolog Insulin Pen) 3 unit WITH MEALS SC Last administered on 01/17/19 17:15; Admin Dose 3 UNIT; Start 01/12/19 at 12:00 Insulin Aspart (Novolog Insulin Pen) NOVOLOG *MILD* ALGORITHM WITH MEALS BEDTIME SC Last administered on 01/17/19 20:40; Admin Dose 1 UNIT; Start 01/12/19 at 12:00 Linagliptin (Tradjenta) 5 mg DAILY PO Last administered on 01/18/19 11:54; Admin Dose 5 MG; Start 01/12/19 at 11:30 Escitalopram Oxalate (Lexapro) 10 mg DAILY PO Last administered on 01/18/19 11:53; Admin Dose 10 MG; Start 01/12/19 at 11:30 Tacrolimus (Prograf) 2 mg Q12 PO Last administered on 01/18/19 11:53; Admin Dose 2 MG; Start 01/12/19 at 21:00 Amoxicillin/ Clavulanate Potassium (Augmentin) 500 mg Q12 PO Last administered on 01/18/19 11:53; Admin Dose 500 MG; Start 01/12/19 at 14:00 Pantoprazole (Protonix Tab) 40 mg DAILY@06 PO Last administered on 01/18/19 06:36; Admin Dose 40 MG; Start 01/14/19 at 06:00 Metoclopramide HCl (Reglan) 5 mg Q6H PRN IV NAUSEA AND/OR VOMITING Last administered on 01/13/19 13:16; Admin Dose 5 MG; Start 01/13/19 at 13:00 Furosemide (Lasix) 40 mg DAILY PO Last administered on 01/18/19at 11:55; Admin Dose 40 MG; Start 01/14/19 at 09:00 Sodium Chloride 50 ml @ 100 mls/hr Q12 IVPB Last administered on 01/18/19at 08:21; Admin Dose 100 MLS/HR; Start 01/14/19 at 21:00; Stop 01/29/19 at 23:00 Cefazolin Sodium 50 ml @ 100 mls/hr Q12 IVPB Last administered on 01/18/19at 08:18; Admin Dose 100 MLS/HR; Start 01/16/19 at 01:00 Hydralazine HCl (Apresoline) 50 mg Q12 PO ; Start 01/18/19 at 21:00 LETI RODRIGUEZ Jan 18, 2019 17:09
--- NOTE | 2019-01-18 17:58 | CONS ---
Assessment/Plan Assessment/Plan Hospital Course (Demo Recall) - Anasarca, improved with IV Lasix - Endocarditis - Dr. Olmstead rec'd call from [facility] 01/15/19 regarding this and plan was to complete cefazolin through 01.29.19 - Completing Augmentin for progressive swelling of distal aspect of right ring finger with x-ray showing further of erosion and lucency involving the distal aspect of the distal phalanx of the right ring finger suspicious for osteomye litis with improved but slight associated soft tissue swelling. ESR 67. - Hx OM of R 4th digit: swelling with new erosive changes and osteopenia of the underlying R 4th distal phalanx, suggestive of osteomyelitis; wound culture grew Serratia on 03/18/18 and Serratia + CoNS (likely colonizer) on 04/04/18 ; Pt declined amputation. ESR 39 on 03/18/2018. S/p Levaquin x 6 weeks, ESR 60 01/13/19 - Hematoma within the right lateral abdominal wall musculature which has developed since the previous study done 12/13/2018 measuring 7.3 x 4.6 cm in cross diameter and extending an acrylic that dimension approximately 10.7 cm from the level of the superior pole of the [place] right kidney to just inferior to the right iliac crest per CT 01/12/19 - Calcification of the vas deferens with a persistent hydrocele within the scrotum per CT 01/12/19 - Bacteremia d/t MSSA 12/09/2018, repeat blood cx 12/12/18 NGTD - MRSA and K. pneumoniae in urine cx 12/09/2018 - UA was neg for pyuria - Hx mild subtle increased activity within the upper aspect of LUE, nonspecific, on WBC tagged scan on 04/05/2018 - Hx OM of R 3rd fingertip (XR showed periosteal reaction at the tip of R 3rd distal phalanx, suspicious for OM, MRI showed cellulitis of distal R 4th phalanx, without OM) and L 2nd fingertip (XR showed cortical irregularity at the tuft of L 2nd distal phalanx with overlying soft tissue defect, suggesting early OM, MRI showed OM at L 2nd distal phalanx with, cellulitis about L 2nd distal phalanx without drainable fluid collection.) - Hx OM of R 2nd finger s/p amputation at proximal phalanx neck, and h/o OM of L 3rd finger s/p amputation at middle and distal phalanges - Acute on chronic renal failure - Hyperkalemia with metabolic acidosis - slowly improving with sodium bicarb - Hx ESRD, was on HD - S/p renal transplant in 2009 (on tacrolimus, mycophenolate and prednisone), chronic renal insufficiency at baseline - DM - Hgb A1c 10.5% - Hx Juan's esophagus and gastritis s/p EGD on 08/12/2017. No H. pylori on Bx - BLE atherosclerosis - Seen by Vascular Surgery during last admit - Onychomycosis, tinea pedis - Seen by [employer] during last admit - Rheumatoid arthritis - Chronic HCV infection - HTN - Dyslipidemia - Hx polysubstance and IV drug use. 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 Olmstead will d/w pharmacy about consolidating therapy to Unasyn alone for duration - Continue PO Augmentin x 4 weeks to complete therapy for OM; S/p Unasyn x2 weeks (12/13/2018-) - Continue cefazolin (01/15/19 - ) for endocarditis - planned through 01.29.19 - Serial ESR - Consider rechecking tacrolimus level as noted to be low on 01.23.19 Plan was d/w patient and with Dr. Olmstead. Thank you Consultation Date/Type/Reason Admit Date/Time Jan 09, 2019 at 21:14 Initial Consult Date 01/12/19 Type of Consult ID Requesting Provider: LUPE KAPLAN MD Date/Time of Note DATE: 01/18/19 TIME: 17:57 24 HR Interval Summary Free Text/Dictation No acute issues reported by nursing, he remains afebrile. Per the patient "the other doctor told me I could go home tomorrow." Patient denied all ROS but states he is having "body pain," did not rate the pain. States he had recent pain medication. Exam/Review of Systems Exam Vitals Vital Signs Date Temp Pulse Resp B/P (MAP) Pulse Ox O2 O2 Flow FiO2 Time Delivery Rate 01/18/19 64 16:30 01/18/19 17 129/84 Room Air 15:59 (99) 01/18/19 98.1 100 15:28 Intake and Output 01/17/19 01/17/19 01/18/19 1515:00 23:00 07:00 IntakeIntake Total 50 ml 530 ml 1300 ml OutputOutput Total 350 ml 650 ml BalanceBalance 50 ml 180 ml 650 ml Allergies Coded Allergies magnesium (Unverified Allergy, Intermediate, 12/09/18) NUMBNESS AND HOT FUSHES Exam Constitutional: alert, oriented, frail (thin), other (resting comfortably in bed.) Psych: no complaints, nl mood/affect Head: normocephalic, atraumatic Eyes: nl conjunctiva, nl lids, nl sclera ENMT: nl external ears & nose, nl nasal mucosa & septum, mucosa pink and moist (no thrush) Neck: supple, non-tender Respiratory: clear to auscultation, normal air movement Cardiovascular: regular rate and rhythm, nl pulses, murmurs/extra sounds Gastrointestinal: soft, non-tender, bowel sounds (normoactive ) Musculoskeletal: other (old LUE AVF graft site with no ttp, no bruit no thrill ) Extremities: normal pulses, other (Partial amputation of R 2nd and 3rd fingers and L 2nd and 3rd fingers. R middle finger wrapped with a c/d/i gauze); No edema 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: nl mental status, nl speech, nl strength Skin: nl turgor; other (pale) No rash or lesions Results Result Diagram: 01/18/19 0500 01/18/19 0500 Results 24hrs Laboratory Tests Test 01/17/19 20:22 01/18/19 05:00 01/18/19 07:47 01/18/19 08:26 Bedside Glucose 189 61 L 242 H White Blood Count 3.6 L Red Blood Count 2.92 L Hemoglobin 9.3 L Hematocrit 29.9 L Mean Corpuscular 102.4 H Volume Mean Corpuscular 31.8 Hemoglobin Mean Corpuscular 31.1 L Hemoglobin Concent Red Cell 14.6 H Distribution Width Platelet Count 198 Mean Platelet Volume 10.1 Immature 0.300 Granulocytes % Neutrophils % 61.5 Lymphocytes % 23.7 Monocytes % 12.9 H Eosinophils % 0.8 Basophils % 0.8 Nucleated Red Blood 0.0 Cells % Immature 0.010 Granulocytes # Neutrophils # 2.2 Lymphocytes # 0.9 Monocytes # 0.5 Eosinophils # 0.0 Basophils # 0.0 Nucleated Red Blood 0.0 Cells # Sodium Level 143 Potassium Level 4.8 Chloride Level 103 Carbon Dioxide Level 28 Anion Gap 12 # Blood Urea Nitrogen 55 H Creatinine 3.31 H Est Glomerular 19 L Filtrat Rate mL/min Glucose Level 60 #L Calcium Level 9.1 Test 01/18/19 08:38 01/18/19 11:32 01/18/19 17:28 Bedside Glucose 186 99 135 Medications Medication Current Medications IV Flush (NS 3 ml) 3 ml PER PROTOCOL IV ; Start 01/09/19 at 22:00 Ondansetron HCl (Zofran Inj) 4 mg Q6H PRN IV NAUSEA/VOMITING Last administered on 01/18/19 08:09; Admin Dose 4 MG; Start 01/09/19 at 22:00 Diagnostic Test (Pha) (Accu-Chek) 1 ea 02 XX Last administered on 01/14/19at 01:16; Admin Dose 1 EA; Start 01/11/19 at 02:00 Miscellaneous Information 1 ea NOTE XX ; Start 01/10/19 at 04:00 Glucose (Glutose) 15 gm Q15M PRN PO DECREASED GLUCOSE; Start 01/10/19 at 04:00 Glucose (Glutose) 22.5 gm Q15M PRN PO DECREASED GLUCOSE; Start 01/10/19 at 04:00 Dextrose (D50w Syringe) 25 ml Q15M PRN IV DECREASED GLUCOSE; Start 01/10/19 at 04:00 Dextrose (D50w Syringe) 50 ml Q15M PRN IV DECREASED GLUCOSE Last administered on 01/18/19at 08:10; Admin Dose 50 ML; Start 01/10/19 at 04:00 Glucagon (Glucagen) 1 mg Q15M PRN IM DECREASED GLUCOSE; Start 01/10/19 at 04:00 Glucose (Glutose) 15 gm Q15M PRN BUCCAL DECREASED GLUCOSE; Start 01/10/19 at 04:00 Guaifenesin/ Dextromethorphan (Robitussin Dm Liquid Cup) 10 ml Q6 PRN PO COUGH Last administered on 01/10/19at 16:45; Admin Dose 10 ML; Start 01/10/19 at 10:30 Epoetin Fidencio (Epogen (Esrd)) 3,000 units MoWeFr@17 SC Last administered on 01/13/19at 17:47; Admin Dose 3,000 UNITS; Start 01/11/19 at 17:00 Prednisone (Prednisone) 5 mg DAILY PO Last administered on 01/18/19 11:53; Admin Dose 5 MG; Start 01/11/19 at 15:30 Acetaminophen/ Hydrocodone Bitart ([place] ()) 2 tab Q6H PRN PO MODERATE P AIN LEVEL 4-6 Last administered on 01/18/19 11:52; Admin Dose 2 TAB; Start 01/11/19 at 15:30 Insulin Glargine (Lantus) 6 units DAILY@2000 SC Last administered on 01/17/19 20:40; Admin Dose 6 UNITS; Start 01/12/19 at 20:00 Insulin Aspart (Novolog Insulin Pen) 3 unit WITH MEALS SC Last administered on 01/17/19 17:15; Admin Dose 3 UNIT; Start 01/12/19 at 12:00 Insulin Aspart (Novolog Insulin Pen) NOVOLOG *MILD* ALGORITHM WITH MEALS BEDTIME SC Last administered on 01/17/19 20:40; Admin Dose 1 UNIT; Start 01/12/19 at 12:00 Linagliptin (Tradjenta) 5 mg DAILY PO Last administered on 01/18/19 11:54; Admin Dose 5 MG; Start 01/12/19 at 11:30 Escitalopram Oxalate (Lexapro) 10 mg DAILY PO Last administered on 01/18/19 11:53; Admin Dose 10 MG; Start 01/12/19 at 11:30 Tacrolimus (Prograf) 2 mg Q12 PO Last administered on 01/18/19 11:53; Admin Dose 2 MG; Start 01/12/19 at 21:00 Amoxicillin/ Clavulanate Potassium (Augmentin) 500 mg Q12 PO Last administered on 01/18/19 11:53; Admin Dose 500 MG; Start 01/12/19 at 14:00 Pantoprazole (Protonix Tab) 40 mg DAILY@06 PO Last administered on 01/18/19 06:36; Admin Dose 40 MG; Start 01/14/19 at 06:00 Metoclopramide HCl (Reglan) 5 mg Q6H PRN IV NAUSEA AND/OR VOMITING Last administered on 01/13/19 13:16; Admin Dose 5 MG; Start 01/13/19 at 13:00 Furosemide (Lasix) 40 mg DAILY PO Last administered on 01/18/19at 11:55; Admin Dose 40 MG; Start 01/14/19 at 09:00 Sodium Chloride 50 ml @ 100 mls/hr Q12 IVPB Last administered on 01/18/19at 08:21; Admin Dose 100 MLS/HR; Start 01/14/19 at 21:00; Stop 01/29/19 at 23:00 Cefazolin Sodium 50 ml @ 100 mls/hr Q12 IVPB Last administered on 01/18/19at 08:18; Admin Dose 100 MLS/HR; Start 01/16/19 at 01:00 Hydralazine HCl (Apresoline) 50 mg Q12 PO ; Start 01/18/19 at 21:00 MAHAD MAHARAJ NP Jan 18, 2019 17:58
--- NOTE | 2019-01-18 19:57 | CONS ---
Consult Date/Type/Reason Admit Date/Time Jan 09, 2019 at 21:14 Initial Consult Date 01/14/19 Type of Consultation: Urology Reason for Consultation Right abdominal wall hematoma Requesting Provider: LUPE KAPLAN MD Date/Time of Note DATE: 01/18/19 TIME: 19:56 Subjective Patient states that he is feeling much better and has no pain in the area of the hematoma Objective Vitals Vital Signs Date Temp Pulse Resp B/P (MAP) Pulse Ox O2 O2 Flow FiO2 Time Delivery Rate 01/18/19 64 16:30 01/18/19 17 129/84 Room Air 15:59 (99) 01/18/19 98.1 100 15:28 Intake and Output 01/17/19 01/17/19 01/18/19 1515:00 23:00 07:00 IntakeIntake Total 50 ml 530 ml 1300 ml OutputOutput Total 350 ml 650 ml BalanceBalance 50 ml 180 ml 650 ml Exam Right side of abdomen and right flank hematoma and bruises. These have decre ased since admission. Results/Medications Result Diagram: 01/18/19 0500 01/18/19 0500 Results 24 hrs Laboratory Tests Test 01/17/19 20:22 01/18/19 05:00 01/18/19 07:47 01/18/19 08:26 Bedside Glucose 189 61 L 242 H White Blood Count 3.6 L Red Blood Count 2.92 L Hemoglobin 9.3 L Hematocrit 29.9 L Mean Corpuscular 102.4 H Volume Mean Corpuscular 31.8 Hemoglobin Mean Corpuscular 31.1 L Hemoglobin Concent Red Cell 14.6 H Distribution Width Platelet Count 198 Mean Platelet Volume 10.1 Immature 0.300 Granulocytes % Neutrophils % 61.5 Lymphocytes % 23.7 Monocytes % 12.9 H Eosinophils % 0.8 Basophils % 0.8 Nucleated Red Blood 0.0 Cells % Immature 0.010 Granulocytes # Neutrophils # 2.2 Lymphocytes # 0.9 Monocytes # 0.5 Eosinophils # 0.0 Basophils # 0.0 Nucleated Red Blood 0.0 Cells # Sodium Level 143 Potassium Level 4.8 Chloride Level 103 Carbon Dioxide Level 28 Anion Gap 12 # Blood Urea Nitrogen 55 H Creatinine 3.31 H Est Glomerular 19 L Filtrat Rate mL/min Glucose Level 60 #L Calcium Level 9.1 Test 01/18/19 08:38 01/18/19 11:32 01/18/19 17:28 Bedside Glucose 186 99 135 Home Meds Reported Medications Cefazolin Sodium in 0.9 % NaCl (Cefazolin 2 G/100 ml-0.9% NaCl) 2 Gm/100 Ml Plast..bag, 2 GM IV Q12 01/12/19 Sitagliptin* (Januvia*) 50 Mg Tablet, 50 MG PO DAILY, #30 TAB 12/09/18 Tacrolimus* (Tacrolimus*) 1 Mg Capsule, 3 MG PO QAM, CAP 12/09/18 Tacrolimus* (Tacrolimus*) 1 Mg Capsule, 2 MG PO QHS, CAP 12/09/18 Mycophenolate Sodium* (Mycophenolic Acid*) 180 Mg Tablet.dr, 540 MG PO Q12, TAB 12/09/18 Prednisone* (Prednisone*) 5 Mg Tab, 5 MG PO DAILY, TAB 12/09/18 Glipizide* (Glipizide*) 5 Mg Tablet, 5 MG PO AC BREAKFAST DINNER, TAB 12/09/18 Clonidine Hcl* (Clonidine Hcl*) 0.1 Mg Tab, 0.1 MG PO DAILY, TAB 12/09/18 Insulin Lispro (Humalog) 100 Unit/1 Ml Cartridge, 2-10 UNITS SQ SLIDING SCALE, EA INSURANECE NOT COVERED THIS INSULIN 09/23/18 Medications Current Medications IV Flush (NS 3 ml) 3 ml PER PROTOCOL IV ; Start 01/09/19 at 22:00 Ondansetron HCl (Zofran Inj) 4 mg Q6H PRN IV NAUSEA/VOMITING Last administered on 01/18/19at 08:09; Admin Dose 4 MG; Start 01/09/19 at 22:00 Diagnostic Test (Pha) (Accu-Chek) 1 ea 02 XX Last administered on 01/14/19at 01:16; Admin Dose 1 EA; Start 01/11/19 at 02:00 Miscellaneous Information 1 ea NOTE XX ; Start 01/10/19 at 04:00 Glucose (Glutose) 15 gm Q15M PRN PO DECREASED GLUCOSE; Start 01/10/19 at 04:00 Glucose (Glutose) 22.5 gm Q15M PRN PO DECREASED GLUCOSE; Start 01/10/19 at 04:00 Dextrose (D50w Syringe) 25 ml Q15M PRN IV DECREASED GLUCOSE; Start 01/10/19 at 04:00 Dextrose (D50w Syringe) 50 ml Q15M PRN IV DECREASED GLUCOSE Last administered on 01/18/19 08:10; Admin Dose 50 ML; Start 01/10/19 at 04:00 Glucagon (Glucagen) 1 mg Q15M PRN IM DECREASED GLUCOSE; Start 01/10/19 at 04:00 Glucose (Glutose) 15 gm Q15M PRN BUCCAL DECREASED GLUCOSE; Start 01/10/19 at 04:00 Guaifenesin/ Dextromethorphan (Robitussin Dm Liquid Cup) 10 ml Q6 PRN PO COUGH Last administered on 01/10/19 16:45; Admin Dose 10 ML; Start 01/10/19 at 10:30 Epoetin Fidencio (Epogen (Esrd)) 3,000 units MoWeFr@17 SC Last administered on 01/13/19 17:47; Admin Dose 3,000 UNITS; Start 01/11/19 at 17:00 Prednisone (Prednisone) 5 mg DAILY PO Last administered on 01/18/19 11:53; Admin Dose 5 MG; Start 01/11/19 at 15:30 Acetaminophen/ Hydrocodone Bitart ([place] ()) 2 tab Q6H PRN PO MODERATE PAIN LEVEL 4-6 Last administered on 01/18/19 18:10; Admin Dose 2 TAB; Start 01/11/19 at 15:30 Insulin Glargine (Lantus) 6 units DAILY@2000 SC Last administered on 01/17/19 20:40; Admin Dose 6 UNITS; Start 01/12/19 at 20:00 Insulin Aspart (Novolog Insulin Pen) 3 unit WITH MEALS SC Last administered on 01/17/19 17:15; Admin Dose 3 UNIT; Start 01/12/19 at 12:00 Insulin Aspart (Novolog Insulin Pen) NOVOLOG *MILD* ALGORITHM WITH MEALS BEDTIME SC Last administered on 01/17/19 20:40; Admin Dose 1 UNIT; Start 01/12/19 at 12:00 Linagliptin (Tradjenta) 5 mg DAILY PO Last administered on 01/18/19 11:54; Admin Dose 5 MG; Start 01/12/19 at 11:30 Escitalopram Oxalate (Lexapro) 10 mg DAILY PO Last administered on 01/18/19 11:53; Admin Dose 10 MG; Start 01/12/19 at 11:30 Tacrolimus (Prograf) 2 mg Q12 PO Last administered on 01/18/19 11:53; Admin Dose 2 MG; Start 01/12/19 at 21:00 Amoxicillin/ Clavulanate Potassium (Augmentin) 500 mg Q12 PO Last administered on 01/18/19 11:53; Admin Dose 500 MG; Start 01/12/19 at 14:00 Pantoprazole (Protonix Tab) 40 mg DAILY@06 PO Last administered on 01/18/19 06:36; Admin Dose 40 MG; Start 01/14/19 at 06:00 Metoclopramide HCl (Reglan) 5 mg Q6H PRN IV NAUSEA AND/OR VOMITING Last administered on 01/13/19 13:16; Admin Dose 5 MG; Start 01/13/19 at 13:00 Furosemide (Lasix) 40 mg DAILY PO Last administered on 01/18/19 11:55; Admin Dose 40 MG; Start 01/14/19 at 09:00 Sodium Chloride 50 ml @ 100 mls/hr Q12 IVPB Last administered on 01/18/19 08:21; Admin Dose 100 MLS/HR; Start 01/14/19 at 21:00; Stop 01/29/19 at 23:00 Cefazolin Sodium 50 ml @ 100 mls/hr Q12 IVPB Last administered on 01/18/19 08:18; Admin Dose 100 MLS/HR; Start 01/16/19 at 01:00 Hydralazine HCl (Apresoline) 50 mg Q12 PO ; Start 01/18/19 at 21:00 Assessment/Plan Hospital Course (Demo Recall) This is a 58-year-old male who is known to me from prior admission and was admitted again to the hospital with a hyperkalemia. A urological consultation was requested because of a hematoma of the right abdominal wall above the iliac crest on the right side. The patient has also the following problems: -Anemia of acute blood loss, status post blood transfusion -Severe hyperkalemia, s/p Kayexalate. -Bilateral lower extremities and scrotal edema -Right middle finger cellulitis with gangrene, resolving. -Chronic kidney disease stage IV, status post cadaveric kidney transplant in 2009. Diabetes mellitus type 2 with diabetic neuropathy -Atherosclerosis -Hypertension. -History of right fourth finger gangrene -History of Juan's esophagus and severe gastritis. -Chronic HCV infection -Rheumatoid arthritis -History of polysubstance and IV drug use The hematoma that he has is in the right side of the abdomen is stable and is not painful at the present, it has not increased in size and it is getting smaller and softer. No sign of infection at the present. Plan just observe RAMILA GONZALEZ MD Jan 18, 2019 19:57
[2019-01-18] MEDS: INSULIN GLARGINE [LANTus] (100 UNITS/ML) SYG SC SCH (20:41)
[2019-01-19] VITALS (11 sets, daily range): BP systolic 122–152; BP diastolic 55–84; PULSE 66–88; RESP 18
[2019-01-19] MEDS: ACCU-CHEK XX SCH (02:00)
[2019-01-19] MEDS: PANTOPRAZOLE (EC) 40 MG TAB PO SCH (05:34)
[2019-01-19] MEDS: INSULIN ASPART [NOVOLOG] 3 ML PEN SC SCH ×7 (08:00→21:00)
[2019-01-19] MEDS: ESCITALOPRAM 10 MG TAB PO SCH (08:28)
[2019-01-19] MEDS: CEFAZOLIN 1 GM/50 ML (PMX) 50 ML IVPB SCH ×2 (08:28→21:25)
[2019-01-19] MEDS: AMOXICILLIN/CLAV 500 MG TAB PO SCH ×2 (08:29→21:25)
[2019-01-19] MEDS: HYDROCODONE/APAP (10/325) TAB PO PRN ×3 (08:29→22:55)
[2019-01-19] MEDS: LINAGLIPTIN 5 MG TABLET PO SCH (08:31)
[2019-01-19] MEDS: predniSONE 5 MG TAB PO SCH (08:31)
[2019-01-19] MEDS: FUROSEMIDE 40 MG TAB PO SCH (08:34)
[2019-01-19] MEDS: SOD CHLORIDE 0.9% 50 ML IVPB SCH ×2 (08:36→21:25)
--- NOTE | 2019-01-19 09:02 | CONS ---
Consult Date/Type/Reason Admit Date/Time Jan 09, 2019 at 21:14 Initial Consult Date Type of Consultation: Urology Requesting Provider: LUPE KAPLAN MD Date/Time of Note DATE: 01/19/19 TIME: 09:01 Subjective NO acute events - pt feels better overall - no CP noted. ROS: No fever, no chills, no nausea, no vomiting, no diarrhea/constipation No recent weight changes + fatigue No chest pain, no PND, no orthopnea No dizziness, blurred vision No thirst, no heat or cold intolerance Objective Vitals Vital Signs Date Temp Pulse Resp B/P (MAP) Pulse Ox O2 O2 Flow FiO2 Time Delivery Rate 01/19/19 97.4 69 18 152/61 97 Room Air 08:51 (91) Intake and Output 01/18/19 01/18/19 01/19/19 1515:00 23:00 07:00 IntakeIntake Total 300 ml 150 ml 500 ml OutputOutput Total 300 ml 250 ml BalanceBalance 0 ml -100 ml 500 ml Exam General: WN/WD/NAD, AOx 2-3 HEENT: Unicetric/atraumatic/EOMI ( follow commands) NECK: JVD elevated, no thyromegaly Lymph: no lymphadenopathy HEART: regular with no S3, II/ systolic murmur at apex LUNGS: Coarse sounds ABD: soft, NT, ND, +BS : Intact Neuro: non focal SKIN: chronic changes EXT: trace edema Results/Medications Result Diagram: 01/19/19 0525 01/19/19 0525 Results 24 hrs Laboratory Tests Test 01/18/19 11:32 01/18/19 17:28 01/18/19 20:31 01/19/19 05:25 Bedside Glucose 99 135 187 White Blood Count 3.4 L Red Blood Count 2.83 L Hemoglobin 9.2 L Hematocrit 29.2 L Mean Corpuscular 103.2 H Volume Mean Corpuscular 32.5 Hemoglobin Mean Corpuscular 31.5 L Hemoglobin Concent Red Cell 14.6 H Distribution Width Platelet Count 191 Mean Platelet Volume 9.8 Immature 0.300 Granulocytes % Neutrophils % 67.0 Lymphocytes % 20.3 Monocytes % 11.5 H Eosinophils % 0.3 Basophils % 0.6 Nucleated Red Blood 0.0 Cells % Immature 0.010 Granulocytes # Neutrophils # 2.3 Lymphocytes # 0.7 L Monocytes # 0.4 Eosinophils # 0.0 Basophils # 0.0 Nucleated Red Blood 0.0 Cells # Sodium Level 140 Potassium Level 5.1 Chloride Level 105 Carbon Dioxide Level 27 Anion Gap 8 Blood Urea Nitrogen 53 H Creatinine 3.25 H Est Glomerular 20 L Filtrat Rate mL/min Glucose Level 74 Calcium Level 8.9 Test 01/19/19 07:45 01/19/19 08:10 01/19/19 08:29 Bedside Glucose 60 L 84 184 Home Meds Reported Medications Cefazolin Sodium in 0.9 % NaCl (Cefazolin 2 G/100 ml-0.9% NaCl) 2 Gm/100 Ml Plas t..bag, 2 GM IV Q12 01/12/19 Sitagliptin* (Januvia*) 50 Mg Tablet, 50 MG PO DAILY, #30 TAB 12/09/18 Tacrolimus* (Tacrolimus*) 1 Mg Capsule, 3 MG PO QAM, CAP 12/09/18 Tacrolimus* (Tacrolimus*) 1 Mg Capsule, 2 MG PO QHS, CAP 12/09/18 Mycophenolate Sodium* (Mycophenolic Acid*) 180 Mg Tablet.dr, 540 MG PO Q12, TAB 12/09/18 Prednisone* (Prednisone*) 5 Mg Tab, 5 MG PO DAILY, TAB 12/09/18 Glipizide* (Glipizide*) 5 Mg Tablet, 5 MG PO AC BREAKFAST DINNER, TAB 12/09/18 Clonidine Hcl* (Clonidine Hcl*) 0.1 Mg Tab, 0.1 MG PO DAILY, TAB 12/09/18 Insulin Lispro (Humalog) 100 Unit/1 Ml Cartridge, 2-10 UNITS SQ SLIDING SCALE, EA INSURANECE NOT COVERED THIS INSULIN 09/23/18 Medications Current Medications IV Flush (NS 3 ml) 3 ml PER PROTOCOL IV ; Start 01/09/19 at 22:00 Ondansetron HCl (Zofran Inj) 4 mg Q6H PRN IV NAUSEA/VOMITING Last administered on 01/18/19at 08:09; Admin Dose 4 MG; Start 01/09/19 at 22:00 Diagnostic Test (Pha) (Accu-Chek) 1 ea 02 XX Last administered on 01/14/19at 01:16; Admin Dose 1 EA; Start 01/11/19 at 02:00 Miscellaneous Information 1 ea NOTE XX ; Start 01/10/19 at 04:00 Glucose (Glutose) 15 gm Q15M PRN PO DECREASED GLUCOSE; Start 01/10/19 at 04:00 Glucose (Glutose) 22.5 gm Q15M PRN PO DECREASED GLUCOSE; Start 01/10/19 at 04:00 Dextrose (D50w Syringe) 25 ml Q15M PRN IV DECREASED GLUCOSE; Start 01/10/19 at 04:00 Dextrose (D50w Syringe) 50 ml Q15M PRN IV DECREASED GLUCOSE Last administered on 01/18/19at 08:10; Admin Dose 50 ML; Start 01/10/19 at 04:00 Glucagon (Glucagen) 1 mg Q15M PRN IM DECREASED GLUCOSE; Start 01/10/19 at 04:00 Glucose (Glutose) 15 gm Q15M PRN BUCCAL DECREASED GLUCOSE; Start 01/10/19 at 04:00 Guaifenesin/ Dextromethorphan (Robitussin Dm Liquid Cup) 10 ml Q6 PRN PO COUGH Last administered on 01/10/19at 16:45; Admin Dose 10 ML; Start 01/10/19 at 10:30 Epoetin Fidencio (Epogen (Esrd)) 3,000 units MoWeFr@17 SC Last administered on 01/13/19 17:47; Admin Dose 3,000 UNITS; Start 01/11/19 at 17:00 Prednisone (Prednisone) 5 mg DAILY PO Last administered on 01/19/19 08:31; Admin Dose 5 MG; Start 01/11/19 at 15:30 Acetaminophen/ Hydrocodone Bitart ([place] (10325)) 2 tab Q6H PRN PO MODERATE PAIN LEVEL 4-6 Last administered on 01/19/19 08:29; Admin Dose 2 TAB; Start 01/11/19 at 15:30 Insulin Glargine (Lantus) 6 units DAILY@2000 SC Last administered on 01/18/19 20:41; Admin Dose 6 UNITS; Start 01/12/19 at 20:00 Insulin Aspart (Novolog Insulin Pen) 3 unit WITH MEALS SC Last administered on 01/17/19 17:15; Admin Dose 3 UNIT; Start 01/12/19 at 12:00 Insulin Aspart (Novolog Insulin Pen) NOVOLOG *MILD* ALGORITHM WITH MEALS BEDTIME SC Last administered on 01/17/19 20:40; Admin Dose 1 UNIT; Start 01/12/19 at 12:00 Linagliptin (Tradjenta) 5 mg DAILY PO Last administered on 01/19/19 08:31; Admin Dose 5 MG; Start 01/12/19 at 11:30 Escitalopram Oxalate (Lexapro) 10 mg DAILY PO Last administered on 01/19/19 08:28; Admin Dose 10 MG; Start 01/12/19 at 11:30 Tacrolimus (Prograf) 2 mg Q12 PO Last administered on 01/18/19 11:53; Admin Dose 2 MG; Start 01/12/19 at 21:00 Amoxicillin/ Clavulanate Potassium (Augmentin) 500 mg Q12 PO Last administered on 01/19/19 08:29; Admin Dose 500 MG; Start 01/12/19 at 14:00 Pantoprazole (Protonix Tab) 40 mg DAILY@06 PO Last administered on 01/19/19 05:34; Admin Dose 40 MG; Start 01/14/19 at 06:00 Metoclopramide HCl (Reglan) 5 mg Q6H PRN IV NAUSEA AND/OR VOMITING Last administered on 01/13/19 13:16; Admin Dose 5 MG; Start 01/13/19 at 13:00 Furosemide (Lasix) 40 mg DAILY PO Last administered on 01/19/19 08:34; Admin Dose 40 MG; Start 01/14/19 at 09:00 Sodium Chloride 50 ml @ 100 mls/hr Q12 IVPB Last administered on 01/19/19 08:36; Admin Dose 100 MLS/HR; Start 01/14/19 at 21:00; Stop 01/29/19 at 23:00 Cefazolin Sodium 50 ml @ 100 mls/hr Q12 IVPB Last administered on 01/19/19 08:28; Admin Dose 100 MLS/HR; Start 01/16/19 at 01:00 Hydralazine HCl (Apresoline) 50 mg Q12 PO Last administered on 01/19/19 08:35; Admin Dose 50 MG; Start 01/18/19 at 21:00 Assessment/Plan Hospital Course (Demo Recall) 1. Hypertension-labile, stable now - pt feels tired - better now - will monitor as needed. Labile - adjust rX as needed. 2. Gangrenous changes of the patient's finger - defer to surgical team as prior 3. Renal failure on HD - Rx per renal team. Rx per primary team. REnal team follows- K+ in range now. Improved with Rx. 4. Rheumatoid arthritis - rheum to follow. 5. Diabetes mellitus - on meds, keep euvolemic - on meds. 6. History of Juan's esophagus. 7. Dyslipidemia. 8. Bacteremia-S aureus - Rx with anti-Bx now - ID follows - no new fevers now. NO new fevers - treaed. 9. Anemia - H/H low, blood RX as needed. 9.2 now. RAQUEL BAIRES MD Jan 19, 2019 09:02
[2019-01-19] MEDS: TACROLIMUS 1 MG CAP PO SCH ×2 (10:13→21:25)
--- NOTE | 2019-01-19 11:42 | CONS ---
Assessment/Plan Assessment/Plan Assessment/Plan (Daily) 58-year-old male who presented with: 1. Severe hyperkalemia. The patient has chronic renal failure stage IV. This could be secondary to renal failure. Rule out Prograf toxicity. The patient also has metabolic acidosis that could contribute to that. 4. Chronic kidney disease stage IV. The patient has donor renal transplantation in 2009. The patient also has underlying severe diabetic nephropathy. Creatinine has been 3.5-3.6 range since last discharge 5. Non-gap metabolic acidosis likely secondary to renal failure. Rule out obstruction. Ultrasound positive for hydro-nephrosis in the right kidney which is unchanged from the prior ultrasound 6. Anasarca likely secondary to underlying renal failure/ Proteinuria 7. Diabetes. 8. donor renal transplantation in 2009. 9. History of Staphylococcus bacteremia off of mycophenolate. 10. Hypertension. 11. Diabetes. 12. Peripheral vascular disease with amputation. 13. History of hepatitis C. 14 There is a hematoma within the right lateral abdominal wall musculature which has developed since the previous study done 12/13/2018 measuring 7.3 x 4.6 cm in cross diameter and extending an acrylic that dimension approximately 10.7 cm from the level of the superior pole of the king salmon right kidney to just inferior to the right iliac crest. plan - cr Stable -Fluid restriction -On Lasix 40 -cw Prograf to 2/.2, continue with prednisone 5, recheck Prograf levels pending -Antibiotics per ID -Hold mycophenolate until the infection is cleared -monitor BMP -Strict i and O Is okay to discharge from renal perspective on Lasix 40 prednisone 5 and Prograf 2 and HOLD mycophenolate until seen in [facility] and infection is cleared will Sign off as please see ask any more additional questions Consultation Date/Type/Reason Admit Date/Time Jan 09, 2019 at 21:14 Initial Consult Date Requesting Provider: LUPE KAPLAN MD Date/Time of Note DATE: 01/19/19 TIME: 11:40 24 HR Interval Summary Free Text/Dictation Doing a lot better today Cr is stable Exam/Review of Systems Exam Vitals Vital Signs Date Temp Pulse Resp B/P (MAP) Pulse Ox O2 O2 Flow FiO2 Time Delivery Rate 01/19/19 98.3 75 18 127/56 100 10:53 (79) 01/19/19 Room Air 08:51 Intake and Output 01/18/19 01/18/19 01/19/19 1515:00 23:00 07:00 IntakeIntake Total 300 ml 150 ml 500 ml OutputOutput Total 300 ml 250 ml BalanceBalance 0 ml -100 ml 500 ml Exam GENERAL: The patient is well-developed, well-nourished male, who does not appear to in any acute distress. HEENT: Pupils are equal, round and reactive to light. NECK: Supple. LUNGS: Decreased breath sounds bilaterally. ABDOMEN: Soft, nontender. The patient has positive bowel sounds. No tenderness appreciated at renal transplant site. EXTREMITIES: There is 1 to 2+ edema. Improved GENITOURINARY: The patient has marked scrotal edema. Bruising noted on the right flank upper abdomen improving Results Result Diagram: 01/19/1952401/19/19 05 Results 24hrs Laboratory Tests Test 01/18/19 17:28 01/18/19 20:31 01/19/19 05:25 01/19/19 07:45 Bedside Glucose 135 187 60 L White Blood Count 3.4 L Red Blood Count 2.83 L Hemoglobin 9.2 L Hematocrit 29.2 L Mean Corpuscular 103.2 H Volume Mean Corpuscular 32.5 Hemoglobin Mean Corpuscular 31.5 L Hemoglobin Concent Red Cell 14.6 H Distribution Width Platelet Count 191 Mean Platelet Volume 9.8 Immature 0.300 Granulocytes % Neutrophils % 67.0 Lymphocytes % 20.3 Monocytes % 11.5 H Eosinophils % 0.3 Basophils % 0.6 Nucleated Red Blood 0.0 Cells % Immature 0.010 Granulocytes # Neutrophils # 2.3 Lymphocytes # 0.7 L Monocytes # 0.4 Eosinophils # 0.0 Basophils # 0.0 Nucleated Red Blood 0.0 Cells # Sodium Level 140 Potassium Level 5.1 Chloride Level 105 Carbon Dioxide Level 27 Anion Gap 8 Blood Urea Nitrogen 53 H Creatinine 3.25 H Est Glomerular 20 L Filtrat Rate mL/min Glucose Level 74 Calcium Level 8.9 Test 01/19/19 08:10 01/19/19 08:29 Bedside Glucose 84 184 Medications Medication Current Medications IV Flush (NS 3 ml) 3 ml PER PROTOCOL IV ; Start 01/09/19 at 22:00 Ondansetron HCl (Zofran Inj) 4 mg Q6H PRN IV NAUSEA/VOMITING Last administered on 01/18/19at 08:09; Admin Dose 4 MG; Start 01/09/19 at 22:00 Diagnostic Test (Pha) (Accu-Chek) 1 ea 02 XX Last administered on 01/14/19at 01:16; Admin Dose 1 EA; Start 01/11/19 at 02:00 Miscellaneous Information 1 ea NOTE XX ; Start 01/10/19 at 04:00 Glucose (Glutose) 15 gm Q15M PRN PO DECREASED GLUCOSE; Start 01/10/19 at 04:00 Glucose (Glutose) 22.5 gm Q15M PRN PO DECREASED GLUCOSE; Start 01/10/19 at 04:00 Dextrose (D50w Syringe) 25 ml Q15M PRN IV DECREASED GLUCOSE; Start 01/10/19 at 04:00 Dextrose (D50w Syringe) 50 ml Q15M PRN IV DECREASED GLUCOSE Last administered on 01/18/19 08:10; Admin Dose 50 ML; Start 01/10/19 at 04:00 Glucagon (Glucagen) 1 mg Q15M PRN IM DECREASED GLUCOSE; Start 01/10/19 at 04:00 Glucose (Glutose) 15 gm Q15M PRN BUCCAL DECREASED GLUCOSE; Start 01/10/19 at 04:00 Guaifenesin/ Dextromethorphan (Robitussin Dm Liquid Cup) 10 ml Q6 PRN PO COUGH Last administered on 01/10/19 16:45; Admin Dose 10 ML; Start 01/10/19 at 10:30 Epoetin Fidecnio (Epogen (Esrd)) 3,000 units MoWeFr@17 SC Last administered on 01/13/19 17:47; Admin Dose 3,000 UNITS; Start 01/11/19 at 17:00 Prednisone (Prednisone) 5 mg DAILY PO Last administered on 01/19/19 08:31; Admin Dose 5 MG; Start 01/11/19 at 15:30 Acetaminophen/ Hydrocodone Bitart ([place] ()) 2 tab Q6H PRN PO MODERATE PAIN LEVEL 4-6 Last administered on 01/19/19 08:29; Admin Dose 2 TAB; Start 01/11/19 at 15:30 Insulin Glargine (Lantus) 6 units DAILY@2000 SC Last administered on 01/18/19 20:41; Admin Dose 6 UNITS; Start 01/12/19 at 20:00 Insulin Aspart (Novolog Insulin Pen) 3 unit WITH MEALS SC Last administered on 01/17/19 17:15; Admin Dose 3 UNIT; Start 01/12/19 at 12:00 Insulin Aspart (Novolog Insulin Pen) NOVOLOG *MILD* ALGORITHM WITH MEALS BEDTIME SC Last administered on 01/17/19 20:40; Admin Dose 1 UNIT; Start 01/12/19 at 12:00 Linagliptin (Tradjenta) 5 mg DAILY PO Last administered on 01/19/19 08:31; Admin Dose 5 MG; Start 01/12/19 at 11:30 Escitalopram Oxalate (Lexapro) 10 mg DAILY PO Last administered on 01/19/19 08:28; Admin Dose 10 MG; Start 01/12/19 at 11:30 Tacrolimus (Prograf) 2 mg Q12 PO Last administered on 01/19/19 10:13; Admin Dose 2 MG; Start 01/12/19 at 21:00 Amoxicillin/ Clavulanate Potassium (Augmentin) 500 mg Q12 PO Last administered on 01/19/19 08:29; Admin Dose 500 MG; Start 01/12/19 at 14:00 Pantoprazole (Protonix Tab) 40 mg DAILY@06 PO Last administered on 01/19/19 05:34; Admin Dose 40 MG; Start 01/14/19 at 06:00 Metoclopramide HCl (Reglan) 5 mg Q6H PRN IV NAUSEA AND/OR VOMITING Last administered on 01/13/19 13:16; Admin Dose 5 MG; Start 01/13/19 at 13:00 Furosemide (Lasix) 40 mg DAILY PO Last administered on 01/19/19 08:34; Admin Dose 40 MG; Start 01/14/19 at 09:00 Sodium Chloride 50 ml @ 100 mls/hr Q12 IVPB Last administered on 01/19/19 08:36; Admin Dose 100 MLS/HR; Start 01/14/19 at 21:00; Stop 01/29/19 at 23:00 Cefazolin Sodium 50 ml @ 100 mls/hr Q12 IVPB Last administered on 01/19/19 08:28; Admin Dose 100 MLS/HR; Start 01/16/19 at 01:00 Hydralazine HCl (Apresoline) 50 mg Q12 PO Last administered on 01/19/19at 08:35; Admin Dose 50 MG; Start 01/18/19 at 21:00 HARVINDER BLOOD MD Jan 19, 2019 11:42
[2019-01-19] MEDS ORDERED: ESCI10TA48 PO (15:30)
[2019-01-19] MEDS ORDERED: SITA50TA2 PO (15:30)
[2019-01-19] MEDS ORDERED: CEFA2PLA9 IV (15:30)
[2019-01-19] MEDS ORDERED: HYDR-3671 PO (15:30)
[2019-01-19] MEDS ORDERED: TACR1CAP26 PO (15:30)
[2019-01-19] MEDS ORDERED: ONDA4TAB13 PO (15:30)
[2019-01-19] MEDS ORDERED: FURO40TA4 PO (15:30)
[2019-01-19] MEDS ORDERED: PANT40TA4 PO (15:30)
--- NOTE | 2019-01-19 15:56 | CONS ---
Assessment/Plan Assessment/Plan Hospital Course (Demo Recall) - Anasarca, improved with IV Lasix - Endocarditis - Dr. Olmstead rec'd call from [facility] 01/15/19 regarding this and plan was to complete cefazolin through 01.29.19 - Completing Augmentin for progressive swelling of distal aspect of right ring finger with x-ray showing further of erosion and lucency involving the distal aspect of the distal phalanx of the right ring finger suspicious for osteomye litis with improved but slight associated soft tissue swelling. ESR 67. - Hx OM of R 4th digit: swelling with new erosive changes and osteopenia of the underlying R 4th distal phalanx, suggestive of osteomyelitis; wound culture grew Serratia on 03/18/18 and Serratia + CoNS (likely colonizer) on 04/04/18 ; Pt declined amputation. ESR 39 on 03/18/2018. S/p Levaquin x 6 weeks, ESR 60 01/13/19 - Hematoma within the right lateral abdominal wall musculature which has developed since the previous study done 12/13/2018 measuring 7.3 x 4.6 cm in cross diameter and extending an acrylic that dimension approximately 10.7 cm from the level of the superior pole of the [place] right kidney to just inferior to the right iliac crest per CT 01/12/19 - Calcification of the vas deferens with a persistent hydrocele within the scrotum per CT 01/12/19 - Bacteremia d/t MSSA 12/09/2018, repeat blood cx 12/12/18 NGTD - MRSA and K. pneumoniae in urine cx 12/09/2018 - UA was neg for pyuria - Hx mild subtle increased activity within the upper aspect of LUE, nonspecific, on WBC tagged scan on 04/05/2018 - Hx OM of R 3rd fingertip (XR showed periosteal reaction at the tip of R 3rd distal phalanx, suspicious for OM, MRI showed cellulitis of distal R 4th phalanx, without OM) and L 2nd fingertip (XR showed cortical irregularity at the tuft of L 2nd distal phalanx with overlying soft tissue defect, suggesting early OM, MRI showed OM at L 2nd distal phalanx with, cellulitis about L 2nd distal phalanx without drainable fluid collection.) - Hx OM of R 2nd finger s/p amputation at proximal phalanx neck, and h/o OM of L 3rd finger s/p amputation at middle and distal phalanges - Acute on chronic renal failure - Hyperkalemia with metabolic acidosis - slowly improving with sodium bicarb - Hx ESRD, was on HD - S/p renal transplant in 2009 (on tacrolimus, mycophenolate and prednisone), chronic renal insufficiency at baseline - DM - Hgb A1c 10.5% - Hx Juan's esophagus and gastritis s/p EGD on 08/12/2017. No H. pylori on Bx - BLE atherosclerosis - Seen by Vascular Surgery during last admit - Onychomycosis, tinea pedis - Seen by Manager Risk during last admit - Rheumatoid arthritis - Chronic HCV infection - HTN - Dyslipidemia - Hx polysubstance and IV drug use. 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 Olmstead will d/w pharmacy about consolidating therapy to Unasyn alone for duration - Continue PO Augmentin x 4 weeks to complete therapy for OM; S/p Unasyn x2 weeks (12/13/2018-) - Continue cefazolin (01/15/19 - ) for endocarditis - planned through 01.29.19 - Serial ESR - Consider rechecking tacrolimus level as noted to be low on 01.23.19 Plan was d/w patient and with Dr. Olmstead. Thank you Consultation Date/Type/Reason Admit Date/Time Jan 09, 2019 at 21:14 Initial Consult Date 01/12/19 Type of Consult ID Requesting Provider: LUPE KAPLAN MD Date/Time of Note DATE: 01/19/19 TIME: 15:56 24 HR Interval Summary Free Text/Dictation The patient says "I'm ok!" He denied all ROS when reviewed. Exam/Review of Systems Exam Vitals Vital Signs Date Temp Pulse Resp B/P (MAP) Pulse Ox O2 O2 Flow FiO2 Time Delivery Rate 01/19/19 98.1 79 18 129/84 99 15:18 (99) 01/19/19 Room Air 08:51 Intake and Output 01/18/19 01/18/19 01/19/19 1515:00 23:00 07:00 IntakeIntake Total 300 ml 150 ml 500 ml OutputOutput Total 300 ml 250 ml BalanceBalance 0 ml -100 ml 500 ml Allergies Coded Allergies magnesium (Unverified Allergy, Intermediate, 12/09/18) NUMBNESS AND HOT FUSHES Exam Constitutional: alert, oriented, frail (thin), other (resting comfortably in bed.) Psych: no complaints, nl mood/affect Head: normocephalic, atraumatic Eyes: nl conjunctiva, nl lids, nl sclera ENMT: nl external ears & nose, nl nasal mucosa & septum, mucosa pink and moist (no thrush) Neck: supple, non-tender Respiratory: clear to auscultation, normal air movement Cardiovascular: regular rate and rhythm, nl pulses, murmurs/extra sounds Gastrointestinal: soft, non-tender, bowel sounds (normoactive ) Musculoskeletal: other (old LUE AVF graft site with no ttp, no bruit no thrill ) Extremities: normal pulses, other (Partial amputation of R 2nd and 3rd fingers and L 2nd and 3rd fingers. R middle finger wrapped with a c/d/i gauze); No edema 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: nl mental status, nl speech, nl strength Skin: nl turgor; other (pale) No rash or lesions Results Result Diagram: 01/19/19 0525 01/19/19 0525 Results 24hrs Laboratory Tests Test 01/18/19 17:28 01/18/19 20:31 01/19/19 05:25 01/19/19 07:45 Bedside Glucose 135 187 60 L White Blood Count 3.4 L Red Blood Count 2.83 L Hemoglobin 9.2 L Hematocrit 29.2 L Mean Corpuscular 103.2 H Volume Mean Corpuscular 32.5 Hemoglobin Mean Corpuscular 31.5 L Hemoglobin Concent Red Cell 14.6 H Distribution Width Platelet Count 191 Mean Platelet Volume 9.8 Immature 0.300 Granulocytes % Neutrophils % 67.0 Lymphocytes % 20.3 Monocytes % 11.5 H Eosinophils % 0.3 Basophils % 0.6 Nucleated Red Blood 0.0 Cells % Immature 0.010 Granulocytes # Neutrophils # 2.3 Lymphocytes # 0.7 L Monocytes # 0.4 Eosinophils # 0.0 Basophils # 0.0 Nucleated Red Blood 0.0 Cells # Sodium Level 140 Potassium Level 5.1 Chloride Level 105 Carbon Dioxide Level 27 Anion Gap 8 Blood Urea Nitrogen 53 H Creatinine 3.25 H Est Glomerular 20 L Filtrat Rate mL/min Glucose Level 74 Calcium Level 8.9 Test 01/19/19 08:10 01/19/19 08:29 01/19/19 12:04 Bedside Glucose 84 184 146 Medications Medication Current Medications IV Flush (NS 3 ml) 3 ml PER PROTOCOL IV ; Start 01/09/19 at 22:00 Ondansetron HCl (Zofran Inj) 4 mg Q6H PRN IV NAUSEA/VOMITING Last administered on 01/18/19at 08:09; Admin Dose 4 MG; Start 01/09/19 at 22:00 Diagnostic Test (Pha) (Accu-Chek) 1 ea 02 XX Last administered on 01/14/19at 01:16; Admin Dose 1 EA; Start 01/11/19 at 02:00 Miscellaneous Information 1 ea NOTE XX ; Start 01/10/19 at 04:00 Glucose (Glutose) 15 gm Q15M PRN PO DECREASED GLUCOSE; Start 01/10/19 at 04:00 Glucose (Glutose) 22.5 gm Q15M PRN PO DECREASED GLUCOSE; Start 01/10/19 at 04:00 Dextrose (D50w Syringe) 25 ml Q15M PRN IV DECREASED GLUCOSE; Start 01/10/19 at 04:00 Dextrose (D50w Syringe) 50 ml Q15M PRN IV DECREASED GLUCOSE Last administered on 01/18/19at 08:10; Admin Dose 50 ML; Start 01/10/19 at 04:00 Glucagon (Glucagen) 1 mg Q15M PRN IM DECREASED GLUCOSE; Start 01/10/19 at 04:00 Glucose (Glutose) 15 gm Q15M PRN BUCCAL DECREASED GLUCOSE; Start 01/10/19 at 04:00 Guaifenesin/ Dextromethorphan (Robitussin Dm Liquid Cup) 10 ml Q6 PRN PO COUGH Last administered on 01/10/19at 16:45; Admin Dose 10 ML; Start 01/10/19 at 10:30 Epoetin Fidencio (Epogen (Esrd)) 3,000 units MoWeFr@17 SC Last administered on 01/13/19at 17:47; Admin Dose 3,000 UNITS; Start 01/11/19 at 17:00 Prednisone (Prednisone) 5 mg DAILY PO Last administered on 01/19/19at 08:31; Admin Dose 5 MG; Start 01/11/19 at 15:30 Acetaminophen/ Hydrocodone Bitart ([place] (10)) 2 tab Q6H PRN PO MODERATE PAIN LEVEL 4-6 Last administered on 01/19/19 08:29; Admin Dose 2 TAB; Start 01/11/19 at 15:30 Insulin Glargine (Lantus) 6 units DAILY@2000 SC Last administered on 01/18/19 20:41; Admin Dose 6 UNITS; Start 01/12/19 at 20:00 Insulin Aspart (Novolog Insulin Pen) 3 unit WITH MEALS SC Last administered on 01/17/19 17:15; Admin Dose 3 UNIT; Start 01/12/19 at 12:00 Insulin Aspart (Novolog Insulin Pen) NOVOLOG *MILD* ALGORITHM WITH MEALS BEDTIME SC Last administered on 01/17/19 20:40; Admin Dose 1 UNIT; Start at 12:00 Linagliptin (Tradjenta) 5 mg DAILY PO Last administered on 01/19/19 08:31; Admin Dose 5 MG; Start 01/12/19 at 11:30 Escitalopram Oxalate (Lexapro) 10 mg DAILY PO Last administered on 01/19/19 08:28; Admin Dose 10 MG; Start 01/12/19 at 11:30 Tacrolimus (Prograf) 2 mg Q12 PO Last administered on 01/19/19 10:13; Admin Dose 2 MG; Start 01/12/19 at 21:00 Amoxicillin/ Clavulanate Potassium (Augmentin) 500 mg Q12 PO Last administered on 01/19/19 08:29; Admin Dose 500 MG; Start 01/12/19 at 14:00 Pantoprazole (Protonix Tab) 40 mg DAILY@06 PO Last administered on 01/19/19 05:34; Admin Dose 40 MG; Start 01/14/19 at 06:00 Metoclopramide HCl (Reglan) 5 mg Q6H PRN IV NAUSEA AND/OR VOMITING Last administered on 01/13/19 13:16; Admin Dose 5 MG; Start 01/13/19 at 13:00 Furosemide (Lasix) 40 mg DAILY PO Last administered on 01/19/19 08:34; Admin Dose 40 MG; Start 01/14/19 at 09:00 Sodium Chloride 50 ml @ 100 mls/hr Q12 IVPB Last administered on 01/19/19at 08:36; Admin Dose 100 MLS/HR; Start 01/14/19 at 21:00; Stop 01/29/19 at 23:00 Cefazolin Sodium 50 ml @ 100 mls/hr Q12 IVPB Last administered on 01/19/19 08:28; Admin Dose 100 MLS/HR; Start 01/16/19 at 01:00 Hydralazine HCl (Apresoline) 50 mg Q12 PO Last administered on 01/19/19at 08:35; Admin Dose 50 MG; Start 01/18/19 at 21:00 MAHAD MAHARAJ NP Jan 19, 2019 15:56
--- NOTE | 2019-01-19 16:07 | CONS ---
Assessment/Plan Assessment/Plan Hospital Course (Demo Recall) emr reviewed. care coordinated with book illustrator and care directed. Consultation Date/Type/Reason Admit Date/Time Jan 09, 2019 at 21:14 Initial Consult Date 01/14/19 Type of Consult ID Requesting Provider: LUPE KAPLAN MD Date/Time of Note DATE: 01/19/19 TIME: 16:07 Exam/Review of Systems Exam Vitals Vital Signs Date Temp Pulse Resp B/P (MAP) Pulse Ox O2 O2 Flow FiO2 Time Delivery Rate 01/19/19 98.1 79 18 129/84 99 15:18 (99) 01/19/19 Room Air 08:51 Intake and Output 01/18/19 01/18/19 01/19/19 1515:00 23:00 07:00 IntakeIntake Total 300 ml 150 ml 500 ml OutputOutput Total 300 ml 250 ml BalanceBalance 0 ml -100 ml 500 ml Results Result Diagram: 01/19/19 0525 01/19/19 0525 Results 24hrs Laboratory Tests Test 01/18/19 17:28 01/18/19 20:31 01/19/19 05:25 01/19/19 07:45 Bedside Glucose 135 187 60 L White Blood Count 3.4 L Red Blood Count 2.83 L Hemoglobin 9.2 L Hematocrit 29.2 L Mean Corpuscular 103.2 H Volume Mean Corpuscular 32.5 Hemoglobin Mean Corpuscular 31.5 L Hemoglobin Concent Red Cell 14.6 H Distribution Width Platelet Count 191 Mean Platelet Volume 9.8 Immature 0.300 Granulocytes % Neutrophils % 67.0 Lymphocytes % 20.3 Monocytes % 11.5 H Eosinophils % 0.3 Basophils % 0.6 Nucleated Red Blood 0.0 Cells % Immature 0.010 Granulocytes # Neutrophils # 2.3 Lymphocytes # 0.7 L Monocytes # 0.4 Eosinophils # 0.0 Basophils # 0.0 Nucleated Red Blood 0.0 Cells # Sodium Level 140 Potassium Level 5.1 Chloride Level 105 Carbon Dioxide Level 27 Anion Gap 8 Blood Urea Nitrogen 53 H Creatinine 3.25 H Est Glomerular 20 L Filtrat Rate mL/min Glucose Level 74 Calcium Level 8.9 Test 01/19/19 08:10 01/19/19 08:29 01/19/19 12:04 Bedside Glucose 84 184 146 Medications Medication Current Medications IV Flush (NS 3 ml) 3 ml PER PROTOCOL IV ; Start 01/09/19 at 22:00 Ondansetron HCl (Zofran Inj) 4 mg Q6H PRN IV NAUSEA/VOMITING Last administered on 01/18/19at 08:09; Admin Dose 4 MG; Start 01/09/19 at 22:00 Diagnostic Test (Pha) (Accu-Chek) 1 ea 02 XX Last administered on 01/14/19at 01:16; Admin Dose 1 EA; Start 01/11/19 at 02:00 Miscellaneous Information 1 ea NOTE XX ; Start 01/10/19 at 04:00 Glucose (Glutose) 15 gm Q15M PRN PO DECREASED GLUCOSE; Start 01/10/19 at 04:00 Glucose (Glutose) 22.5 gm Q15M PRN PO DECREASED GLUCOSE; Start 01/10/19 at 04:00 Dextrose (D50w Syringe) 25 ml Q15M PRN IV DECREASED GLUCOSE; Start 01/10/19 at 04:00 Dextrose (D50w Syringe) 50 ml Q15M PRN IV DECREASED GLUCOSE Last administered on 01/18/19at 08:10; Admin Dose 50 ML; Start 01/10/19 at 04:00 Glucagon (Glucagen) 1 mg Q15M PRN IM DECREASED GLUCOSE; Start 01/10/19 at 04:00 Glucose (Glutose) 15 gm Q15M PRN BUCCAL DECREASED GLUCOSE; Start 01/10/19 at 04:00 Guaifenesin/ Dextromethorphan (Robitussin Dm Liquid Cup) 10 ml Q6 PRN PO COUGH Last administered on 01/10/19at 16:45; Admin Dose 10 ML; Start 01/10/19 at 10:30 Epoetin Fidencio (Epogen (Esrd)) 3,000 units MoWeFr@17 SC Last administered on 01/13/19at 17:47; Admin Dose 3,000 UNITS; Start 01/11/19 at 17:00 Prednisone (Prednisone) 5 mg DAILY PO Last administered on 01/19/19 08:31; Admin Dose 5 MG; Start 01/11/19 at 15:30 Acetaminophen/ Hydrocodone Bitart ([place] (10)) 2 tab Q6H PRN PO MODERATE PAIN LEVEL 4-6 Last administered on 01/19/19 08:29; Admin Dose 2 TAB; Start 01/11/19 at 15:30 Insulin Glargine (Lantus) 6 units DAILY@2000 SC Last administered on 01/18/19 20:41; Admin Dose 6 UNITS; Start 01/12/19 at 20:00 Insulin Aspart (Novolog Insulin Pen) 3 unit WITH MEALS SC Last administered on 01/17/19 17:15; Admin Dose 3 UNIT; Start 01/12/19 at 12:00 Insulin Aspart (Novolog Insulin Pen) NOVOLOG *MILD* ALGORITHM WITH MEALS BEDTIME SC Last administered on 01/17/19 20:40; Admin Dose 1 UNIT; Start 01/12/19 at 12:00 Linagliptin (Tradjenta) 5 mg DAILY PO Last administered on 01/19/19 08:31; Admin Dose 5 MG; Start 01/12/19 at 11:30 Escitalopram Oxalate (Lexapro) 10 mg DAILY PO Last administered on 01/19/19 08:28; Admin Dose 10 MG; Start 01/12/19 at 11:30 Tacrolimus (Prograf) 2 mg Q12 PO Last administered on 01/19/19 10:13; Admin Dose 2 MG; Start 01/12/19 at 21:00 Amoxicillin/ Clavulanate Potassium (Augmentin) 500 mg Q12 PO Last administered on 01/19/19 08:29; Admin Dose 500 MG; Start 01/12/19 at 14:00 Pantoprazole (Protonix Tab) 40 mg DAILY@06 PO Last administered on 01/19/19 05:34; Admin Dose 40 MG; Start 01/14/19 at 06:00 Metoclopramide HCl (Reglan) 5 mg Q6H PRN IV NAUSEA AND/OR VOMITING Last administered on 01/13/19 13:16; Admin Dose 5 MG; Start 01/13/19 at 13:00 Furosemide (Lasix) 40 mg DAILY PO Last administered on 01/19/19 08:34; Admin Dose 40 MG; Start 01/14/19 at 09:00 Sodium Chloride 50 ml @ 100 mls/hr Q12 IVPB Last administered on 01/19/19 08:36; Admin Dose 100 MLS/HR; Start 01/14/19 at 21:00; Stop 01/29/19 at 23:00 Cefazolin Sodium 50 ml @ 100 mls/hr Q12 IVPB Last administered on 01/19/19at 08:28; Admin Dose 100 MLS/HR; Start 01/16/19 at 01:00 Hydralazine HCl (Apresoline) 50 mg Q12 PO Last administered on 01/19/19at 08:35; Admin Dose 50 MG; Start 01/18/19 at 21:00 PARAMJIT COTTRELL MD Jan 19, 2019 16:07
--- NOTE | 2019-01-19 17:46 | CONS ---
Consult Date/Type/Reason Admit Date/Time Jan 09, 2019 at 21:14 Initial Consult Date 01/14/19 Type of Consultation: Urology Reason for Consultation Abdominal wall hematoma Requesting Provider: LUPE KAPLAN MD Date/Time of Note DATE: 01/19/19 TIME: 17:43 Subjective Patient states that he is feeling better and has minimal pain in the area of the hematoma Objective Vitals Vital Signs Date Temp Pulse Resp B/P (MAP) Pulse Ox O2 O2 Flow FiO2 Time Delivery Rate 01/19/19 88 16:29 01/19/19 98.1 18 129/84 99 15:18 (99) 01/19/19 Room Air 08:51 Intake and Output 01/18/19 01/18/19 01/19/19 1515:00 23:00 07:00 IntakeIntake Total 300 ml 150 ml 500 ml OutputOutput Total 300 ml 250 ml BalanceBalance 0 ml -100 ml 500 ml Exam The hematoma has decreased and he still have a small area above the iliac crest where it feels there is some collection of hematoma. Results/Medications Result Diagram: 01/19/19 0525 01/19/19 0525 Results 24 hrs Laboratory Tests Test 01/18/19 20:31 01/19/19 05:25 01/19/19 07:45 01/19/19 08:10 Bedside Glucose 187 60 L 84 White Blood Count 3.4 L Red Blood Count 2.83 L Hemoglobin 9.2 L Hematocrit 29.2 L Mean Corpuscular 103.2 H Volume Mean Corpuscular 32.5 Hemoglobin Mean Corpuscular 31.5 L Hemoglobin Concent Red Cell 14.6 H Distribution Width Platelet Count 191 Mean Platelet Volume 9.8 Immature 0.300 Granulocytes % Neutrophils % 67.0 Lymphocytes % 20.3 Monocytes % 11.5 H Eosinophils % 0.3 Basophils % 0.6 Nucleated Red Blood 0.0 Cells % Immature 0.010 Granulocytes # Neutrophils # 2.3 Lymphocytes # 0.7 L Monocytes # 0.4 Eosinophils # 0.0 Basophils # 0.0 Nucleated Red Blood 0.0 Cells # Sodium Level 140 Potassium Level 5.1 Chloride Level 105 Carbon Dioxide Level 27 Anion Gap 8 Blood Urea Nitrogen 53 H Creatinine 3.25 H Est Glomerular 20 L Filtrat Rate mL/min Glucose Level 74 Calcium Level 8.9 Test 01/19/19 08:29 01/19/19 12:04 01/19/19 17:07 Bedside Glucose 184 146 204 Home Meds Active Scripts Pantoprazole* (Pantoprazole*) 40 Mg Tablet.dr, 40 MG PO DAILY@06 for 30 Days Prov:LETI RODRIGUEZ 01/19/19 Ondansetron Hcl* (Zofran*) 4 Mg Tab, 4 MG PO Q4H PRN for NAUSEA AND OR VOMITING, #30 TAB Prov:LETI RODRIGUEZ 01/19/19 Tacrolimus* (Prograf*) 1 Mg Capsule, 2 MG PO Q12 for 30 Days, CAP Prov:LETI RODRIGUEZ 01/19/19 Furosemide* (Furosemide*) 40 Mg Tablet, 40 MG PO DAILY for 30 Days, TAB Prov:LETI RODRIGUEZ 01/19/19 Escitalopram Oxalate* (Escitalopram Oxalate*) 10 Mg Tablet, 10 MG PO DAILY for 30 Days, TAB Prov:LETI RODRIGUEZ 01/19/19 Hydralazine Hcl* (Hydralazine Hcl*) 25 Mg Tab, 50 MG PO Q12 for 30 Days, TAB Prov:LETI RODRIGUEZ 01/19/19 Cefazolin Sodium in 0.9 % NaCl (Cefazolin 2 G/100 ml-0.9% NaCl) 2 Gm/100 Ml Plast..bag, 1 GM IV Q12 for 10 Days Prov:LETI RODRIGUEZ 01/19/19 Sitagliptin* (Januvia*) 50 Mg Tablet, 50 MG PO DAILY, #30 TAB Prov:LETI RODRIGUEZ 01/19/19 Reported Medications Tacrolimus* (Tacrolimus*) 1 Mg Capsule, 3 MG PO QAM, CAP 12/09/18 Tacrolimus* (Tacrolimus*) 1 Mg Capsule, 2 MG PO QHS, CAP 12/09/18 Mycophenolate Sodium* (Mycophenolic Acid*) 180 Mg Tablet.dr, 540 MG PO Q12, TAB 12/09/18 Prednisone* (Prednisone*) 5 Mg Tab, 5 MG PO DAILY, TAB 12/09/18 Glipizide* (Glipizide*) 5 Mg Tablet, 5 MG PO AC BREAKFAST DINNER, TAB 12/09/18 Clonidine Hcl* (Clonidine Hcl*) 0.1 Mg Tab, 0.1 MG PO DAILY, TAB 12/09/18 Insulin Lispro (Humalog) 100 Unit/1 Ml Cartridge, 2-10 UNITS SQ SLIDING SCALE, EA INSURANECE NOT COVERED THIS INSULIN 09/23/18 Medications Current Medications IV Flush (NS 3 ml) 3 ml PER PROTOCOL IV ; Start 01/09/19 at 22:00 Ondansetron HCl (Zofran Inj) 4 mg Q6H PRN IV NAUSEA/VOMITING Last administered on 01/18/19at 08:09; Admin Dose 4 MG; Start 01/09/19 at 22:00 Diagnostic Test (Pha) (Accu-Chek) 1 ea 02 XX Last administered on 01/14/19at 01:16; Admin Dose 1 EA; Start 01/11/19 at 02:00 Miscellaneous Information 1 ea NOTE XX ; Start 01/10/19 at 04:00 Glucose (Glutose) 15 gm Q15M PRN PO DECREASED GLUCOSE; Start 01/10/19 at 04:00 Glucose (Glutose) 22.5 gm Q15M PRN PO DECREASED GLUCOSE; Start 01/10/19 at 04:00 Dextrose (D50w Syringe) 25 ml Q15M PRN IV DECREASED GLUCOSE; Start 01/10/19 at 04:00 Dextrose (D50w Syringe) 50 ml Q15M PRN IV DECREASED GLUCOSE Last administered on 01/18/19at 08:10; Admin Dose 50 ML; Start 01/10/19 at 04:00 Glucagon (Glucagen) 1 mg Q15M PRN IM DECREASED GLUCOSE; Start 01/10/19 at 04:00 Glucose (Glutose) 15 gm Q15M PRN BUCCAL DECREASED GLUCOSE; Start 01/10/19 at 04:00 Guaifenesin/ Dextromethorphan (Robitussin Dm Liquid Cup) 10 ml Q6 PRN PO COUGH Last administered on 01/10/19at 16:45; Admin Dose 10 ML; Start 01/10/19 at 10:30 Epoetin Fidencio (Epogen (Esrd)) 3,000 units MoWeFr@17 SC Last administered on 01/13/19at 17:47; Admin Dose 3,000 UNITS; Start 01/11/19 at 17:00 Prednisone (Prednisone) 5 mg DAILY PO Last administered on 01/19/19at 08:31; Admin Dose 5 MG; Start 01/11/19 at 15:30 Acetaminophen/ Hydrocodone Bitart ([place] (10)) 2 tab Q6H PRN PO MODERATE PAIN LEVEL 4-6 Last administered on 01/19/19 16:25; Admin Dose 2 TAB; Start 01/11/19 at 15:30 Insulin Glargine (Lantus) 6 units DAILY@2000 SC Last administered on 01/18/19 20:41; Admin Dose 6 UNITS; Start 01/12/19 at 20:00 Insulin Aspart (Novolog Insulin Pen) 3 unit WITH MEALS SC Last administered on 01/17/19 17:15; Admin Dose 3 UNIT; Start 01/12/19 at 12:00 Insulin Aspart (Novolog Insulin Pen) NOVOLOG *MILD* ALGORITHM WITH MEALS BEDTIME SC Last administered on 01/17/19 20:40; Admin Dose 1 UNIT; Start 01/12/19 at 12:00 Linagliptin (Tradjenta) 5 mg DAILY PO Last administered on 01/19/19 08:31; Admin Dose 5 MG; Start 01/12/19 at 11:30 Escitalopram Oxalate (Lexapro) 10 mg DAILY PO Last administered on 01/19/19 08:28; Admin Dose 10 MG; Start 01/12/19 at 11:30 Tacrolimus (Prograf) 2 mg Q12 PO Last administered on 01/19/19 10:13; Admin Dose 2 MG; Start 01/12/19 at 21:00 Amoxicillin/ Clavulanate Potassium (Augmentin) 500 mg Q12 PO Last administered on 01/19/19 08:29; Admin Dose 500 MG; Start 01/12/19 at 14:00 Pantoprazole (Protonix Tab) 40 mg DAILY@06 PO Last administered on 01/19/19 05:34; Admin Dose 40 MG; Start 01/14/19 at 06:00 Metoclopramide HCl (Reglan) 5 mg Q6H PRN IV NAUSEA AND/OR VOMITING Last administered on 01/13/19 13:16; Admin Dose 5 MG; Start 01/13/19 at 13:00 Furosemide (Lasix) 40 mg DAILY PO Last administered on 01/19/19 08:34; Admin Dose 40 MG; Start 01/14/19 at 09:00 Sodium Chloride 50 ml @ 100 mls/hr Q12 IVPB Last administered on 01/19/19at 08:36; Admin Dose 100 MLS/HR; Start 01/14/19 at 21:00; Stop 01/29/19 at 23:00 Cefazolin Sodium 50 ml @ 100 mls/hr Q12 IVPB Last administered on 01/19/19at 08:28; Admin Dose 100 MLS/HR; Start 01/16/19 at 01:00 Hydralazine HCl (Apresoline) 50 mg Q12 PO Last administered on 01/19/19at 08:35; Admin Dose 50 MG; Start 01/18/19 at 21:00 Assessment/Plan Hospital Course (Demo Recall) This is a 58-year-old male who is known to me from prior admission and was admitted again to the hospital with a hyperkalemia. A urological consultation was requested because of a hematoma of the right abdominal wall above the iliac crest on the right side. The patient has also the following problems: -Anemia of acute blood loss, status post blood transfusion -Severe hyperkalemia, s/p Kayexalate. -Bilateral lower extremities and scrotal edema -Right middle finger cellulitis with gangrene, resolving. -Chronic kidney disease stage IV, status post cadaveric kidney transplant in 2009. Diabetes mellitus type 2 with diabetic neuropathy -Atherosclerosis -Hypertension. -History of right fourth finger gangrene -History of Juan's esophagus and severe gastritis. -Chronic HCV infection -Rheumatoid arthritis -History of polysubstance and IV drug use The hematoma that he has is in the right side of the abdomen is getting smaller in size and is mildly painful, it has not increased in size and it is getting smaller and softer. No sign of infection at the present. Plan just observe RAMILA GONZALEZ MD Jan 19, 2019 17:46
[2019-01-19] MEDS: INSULIN GLARGINE [LANTus] (100 UNITS/ML) SYG SC SCH (20:00)
--- NOTE | 2019-01-19 22:32 | DS ---
Date/Time of Note Date/Time of Note DATE: 01/19/19 TIME: 22:27 Discharge Summary Admission/Discharge Info Admit Date/Time Jan 09, 2019 at 21:14 Discharge Date/Time Patient Condition: Stable Hx of Present Illness The patient is 58-year-old male with renal transplant, DM presented to ER with swelling to his extremities over the past week. He has a history of renal t ransplant when his last creatinine was 3.1 about a month ago. He also has hepatitis C but denies any heart failure. He says he is getting edema to his legs and left upper extremity. He has dyspnea on exertion and some orthopnea. No fever no chest pain no GI symptoms. He also has testicular and scrotal swelling. Hospital Course -Renal hematoma CT of the abdomen and pelvis, clinically improved. Dr. Noguera is following in urology consultation. -Anemia of acute blood loss, status post blood transfusion, continue to monitor H&H. -Severe hyperkalemia, s/p Kayexalate. Dr. Fofana is following in nephrology consultation. -Endocarditis, continue cefazolin until 01/29/19. -Bilateral lower extremities and scrotal edema -Right middle finger cellulitis with gangrene, resolving. Continue Augmentin. Dr. Olmstead is following in infection disease consultation. -Chronic kidney disease stage IV, status post cadaveric kidney transplant in 2009. -Diabetes mellitus type 2 with diabetic neuropathy, hemoglobin A1c is 6.7. Continue Tradjenta, Lantus and NovoLog. -Atherosclerosis -Hypertension. -History of right fourth finger gangrene -History of Juan's esophagus and severe gastritis. -Chronic HCV infection -Rheumatoid arthritis -History of polysubstance and IV drug use Plan of care discussed with Dr. Maier. Home Meds Active Scripts Pantoprazole* (Pantoprazole*) 40 Mg Tablet., 40 MG PO DAILY@06 for 30 Days Prov:LETI RODRIGUEZ 01/19/19 Ondansetron Hcl* (Zofran*) 4 Mg Tab, 4 MG PO Q4H PRN for NAUSEA AND OR VOMITING, #30 TAB Prov:LETI RODRIGUEZ 01/19/19 Tacrolimus* (Prograf*) 1 Mg Capsule, 2 MG PO Q12 for 30 Days, CAP Prov:LETI RODRIGUEZ 01/19/19 Furosemide* (Furosemide*) 40 Mg Tablet, 40 MG PO DAILY for 30 Days, TAB Prov:LETI RODRIGUEZ 01/19/19 Escitalopram Oxalate* (Escitalopram Oxalate*) 10 Mg Tablet, 10 MG PO DAILY for 30 Days, TAB Prov:LETI RODRIGUEZ 01/19/19 Hydralazine Hcl* (Hydralazine Hcl*) 25 Mg Tab, 50 MG PO Q12 for 30 Days, TAB Prov:LETI RODRIGUEZ 01/19/19 Cefazolin Sodium in 0.9 % NaCl (Cefazolin 2 G/100 ml-0.9% NaCl) 2 Gm/100 Ml Plast..bag, 1 GM IV Q12 for 10 Days Prov:LETI RODRIGUEZ 01/19/19 Sitagliptin* (Januvia*) 50 Mg Tablet, 50 MG PO DAILY, #30 TAB Prov:LETI RODRIGUEZ 01/19/19 Reported Medications Tacrolimus* (Tacrolimus*) 1 Mg Capsule, 3 MG PO QAM, CAP 12/09/18 Tacrolimus* (Tacrolimus*) 1 Mg Capsule, 2 MG PO QHS, CAP 12/09/18 Mycophenolate Sodium* (Mycophenolic Acid*) 180 Mg Tablet.dr, 540 MG PO Q12, TAB 12/09/18 Prednisone* (Prednisone*) 5 Mg Tab, 5 MG PO DAILY, TAB 12/09/18 Glipizide* (Glipizide*) 5 Mg Tablet, 5 MG PO AC BREAKFAST DINNER, TAB 12/09/18 Clonidine Hcl* (Clonidine Hcl*) 0.1 Mg Tab, 0.1 MG PO DAILY, TAB 12/09/18 Insulin Lispro (Humalog) 100 Unit/1 Ml Cartridge, 2-10 UNITS SQ SLIDING SCALE, EA INSURANECE NOT COVERED THIS INSULIN 09/23/18 Follow-up Plan D/c after arranged for [facility] by IV services, Follow-up with Dr. Noguera in 2 weeks, follow-up at tertiary facility for kidney biopsy. Primary Care Provider [facility] Time spent on discharge: > 30 minutes Pending Labs Laboratory Tests Test 01/19/19 05:25 01/19/19 07:45 01/19/19 08:10 01/19/19 08:29 White Blood 3.4 Count 10^3/ul (4.8-10 .8) Red Blood 2.83 Count 10^6/ul (4.70-6 .10) Hemoglobin 9.2 g/dl (14.0-18.0 ) Hematocrit 29.2 % (42.0-52.0) Mean 103.2 Corpuscular fl (82.0-101.0) Volume Mean 32.5 Corpuscular pg (29.0-33.0) Hemoglobin Mean 31.5 Corpuscular g/dl (32.0-37.0 Hemoglobin Conc ) ent Red Cell 14.6 Distribution % (11.5-14.5) Width Platelet Count 191 10^3/UL (140-41 5) Mean Platelet 9.8 Volume fl (7.4-10.4) Immature 0.300 Granulocytes % % (0.001-0.429) Neutrophils % 67.0 % (39.0-77.0) Lymphocytes % 20.3 % (15.0-51.0) Monocytes % 11.5 % (0.0-11.0) Eosinophils % 0.3 % (0.0-7.0) Basophils % 0.6 % (0.0-2.0) Nucleated Red 0.0 Blood Cells % /100WBC (0.0-0. 0) Immature 0.010 Granulocytes # 10^3/ul (0.0-0. 031) Neutrophils # 2.3 10^3/ul (1.6-7. 5) Lymphocytes # 0.7 10^3/ul (0.8-2. 9) Monocytes # 0.4 10^3/ul (0.3-0. 9) Eosinophils # 0.0 10^3/ul (0.0-0. 5) Basophils # 0.0 10^3/ul (0.0-0. 1) Nucleated Red 0.0 Blood Cells # 10^3/ul (0.0-0. 0) Sodium Level 140 mmol/L (135-144 ) Potassium 5.1 Level mmol/L (3.5-5.1 ) Chloride Level 105 mmol/L (97-110) Carbon Dioxide 27 Level mmol/L (21-31) Anion Gap 8 (5-13) Blood Urea 53 mg/dl (7-20) Nitrogen Creatinine 3.25 mg/dl (0.61-1.2 4) Est Glomerular 20 mL/min (>60) Filtrat Rate mL/min Glucose Level 74 mg/dl (70-220) Calcium Level 8.9 mg/dl (8.4-10.2 ) Bedside 60 84 184 Glucose mg/dL (70-220) mg/dL (70-220) mg/dL (70-220) Test 01/19/19 12:04 01/19/19 17:07 01/19/19 21:24 Bedside 146 204 125 Glucose mg/dL (70-220) mg/dL (70-220) mg/dL (70-220) LETI RODRIGUEZ Jan 19, 2019 22:32
[2019-01-20] VITALS (11 sets, daily range): BP systolic 125–163; BP diastolic 53–85; PULSE 66–85; RESP 18–19
[2019-01-20] MEDS: ACCU-CHEK XX SCH (02:00)
[2019-01-20] MEDS: INSULIN ASPART [NOVOLOG] 3 ML PEN SC SCH ×7 (08:00→20:19)
[2019-01-20] MEDS: CEFAZOLIN 1 GM/50 ML (PMX) 50 ML IVPB SCH (08:26)
[2019-01-20] MEDS: ESCITALOPRAM 10 MG TAB PO SCH (08:26)
[2019-01-20] MEDS: predniSONE 5 MG TAB PO SCH (08:27)
[2019-01-20] MEDS: HYDROCODONE/APAP (10/325) TAB PO PRN ×2 (08:27→16:19)
[2019-01-20] MEDS: AMOXICILLIN/CLAV 500 MG TAB PO SCH (08:27)
[2019-01-20] MEDS: LINAGLIPTIN 5 MG TABLET PO SCH (08:27)
[2019-01-20] MEDS: FUROSEMIDE 40 MG TAB PO SCH (08:28)
[2019-01-20] MEDS: SOD CHLORIDE 0.9% 50 ML IVPB SCH ×2 (08:28→20:19)
--- NOTE | 2019-01-20 08:29 | CONS ---
Consult Date/Type/Reason Admit Date/Time Jan 09, 2019 at 21:14 Initial Consult Date 01/14/19 Type of Consultation: Urology Reason for Consultation Abdominal wall hematoma Requesting Provider: LUPE KAPLAN MD Date/Time of Note DATE: 01/20/19 TIME: 08:27 Subjective Patient is feeling better, he is voiding well and the urine is clear Objective Vitals Vital Signs Date Temp Pulse Resp B/P (MAP) Pulse Ox O2 O2 Flow FiO2 Time Delivery Rate 01/20/19 97.8 70 18 163/85 99 07:57 (111) 01/19/19 Room Air 08:51 Intake and Output 01/19/19 01/19/19 01/20/19 1515:00 23:00 07:00 IntakeIntake Total 600 ml 400 ml BalanceBalance 600 ml 400 ml Exam The abdomen is soft and the right side abdominal wall hematoma is resolving. Results/Medications Result Diagram: 01/19/19 0525 01/19/19 0525 Results 24 hrs Laboratory Tests Test 01/19/19 08:29 01/19/19 12:04 01/19/19 17:07 01/19/19 21:24 Bedside Glucose 184 146 204 125 Test 01/20/19 07:58 Bedside Glucose 139 Home Meds Active Scripts Pantoprazole* (Pantoprazole*) 40 Mg Tablet.dr, 40 MG PO DAILY@06 for 30 Days Prov:LETI RODRIGUEZ 01/19/19 Ondansetron Hcl* (Zofran*) 4 Mg Tab, 4 MG PO Q4H PRN for NAUSEA AND OR VOMITING, #30 TAB Prov:LETI RODRIGUEZ 01/19/19 Tacrolimus* (Prograf*) 1 Mg Capsule, 2 MG PO Q12 for 30 Days, CAP Prov:LETI RODRIGUEZ 01/19/19 Furosemide* (Furosemide*) 40 Mg Tablet, 40 MG PO DAILY for 30 Days, TAB Prov:LETI RODRIGUEZ 01/19/19 Escitalopram Oxalate* (Escitalopram Oxalate*) 10 Mg Tablet, 10 MG PO DAILY for 30 Days, TAB Prov:LETI RODRIGUEZ 01/19/19 Hydralazine Hcl* (Hydralazine Hcl*) 25 Mg Tab, 50 MG PO Q12 for 30 Days, TAB Prov:LETI RODRIGUEZ 01/19/19 Cefazolin Sodium in 0.9 % NaCl (Cefazolin 2 G/100 ml-0.9% NaCl) 2 Gm/100 Ml Plast..bag, 1 GM IV Q12 for 10 Days Prov:LETI RODRIGUEZ 01/19/19 Sitagliptin* (Januvia*) 50 Mg Tablet, 50 MG PO DAILY, #30 TAB Prov:LETI RODRIGUEZ 01/19/19 Reported Medications Tacrolimus* (Tacrolimus*) 1 Mg Capsule, 3 MG PO QAM, CAP 12/09/18 Tacrolimus* (Tacrolimus*) 1 Mg Capsule, 2 MG PO QHS, CAP 12/09/18 Mycophenolate Sodium* (Mycophenolic Acid*) 180 Mg Tablet.dr, 540 MG PO Q12, TAB 12/09/18 Prednisone* (Prednisone*) 5 Mg Tab, 5 MG PO DAILY, TAB 12/09/18 Glipizide* (Glipizide*) 5 Mg Tablet, 5 MG PO AC BREAKFAST DINNER, TAB 12/09/18 Clonidine Hcl* (Clonidine Hcl*) 0.1 Mg Tab, 0.1 MG PO DAILY, TAB 12/09/18 Insulin Lispro (Humalog) 100 Unit/1 Ml Cartridge, 2-10 UNITS SQ SLIDING SCALE, EA INSURANECE NOT COVERED THIS INSULIN 09/23/18 Medications Current Medications IV Flush (NS 3 ml) 3 ml PER PROTOCOL IV ; Start 01/09/19 at 22:00 Ondansetron HCl (Zofran Inj) 4 mg Q6H PRN IV NAUSEA/VOMITING Last administered on 01/18/19at 08:09; Admin Dose 4 MG; Start 01/09/19 at 22:00 Diagnostic Test (Pha) (Accu-Chek) 1 ea 02 XX Last administered on 01/14/19at 01:16; Admin Dose 1 EA; Start 01/11/19 at 02:00 Miscellaneous Information 1 ea NOTE XX ; Start 01/10/19 at 04:00 Glucose (Glutose) 15 gm Q15M PRN PO DECREASED GLUCOSE; Start 01/10/19 at 04:00 Glucose (Glutose) 22.5 gm Q15M PRN PO DECREASED GLUCOSE; Start 01/10/19 at 04 :00 Dextrose (D50w Syringe) 25 ml Q15M PRN IV DECREASED GLUCOSE; Start 01/10/19 at 04:00 Dextrose (D50w Syringe) 50 ml Q15M PRN IV DECREASED GLUCOSE Last administered on 01/18/19 08:10; Admin Dose 50 ML; Start 01/10/19 at 04:00 Glucagon (Glucagen) 1 mg Q15M PRN IM DECREASED GLUCOSE; Start 01/10/19 at 04:00 Glucose (Glutose) 15 gm Q15M PRN BUCCAL DECREASED GLUCOSE; Start 01/10/19 at 04:00 Guaifenesin/ Dextromethorphan (Robitussin Dm Liquid Cup) 10 ml Q6 PRN PO COUGH Last administered on 01/10/19 16:45; Admin Dose 10 ML; Start 01/10/19 at 10:30 Epoetin Fidencio (Epogen (Esrd)) 3,000 units MoWeFr@17 SC Last administered on 01/13/19 17:47; Admin Dose 3,000 UNITS; Start 01/11/19 at 17:00 Prednisone (Prednisone) 5 mg DAILY PO Last administered on 01/19/19 08:31; Admin Dose 5 MG; Start 01/11/19 at 15:30 Acetaminophen/ Hydrocodone Bitart ([place] ()) 2 tab Q6H PRN PO MODERATE PAIN LEVEL 4-6 Last administered on 01/19/19 22:55; Admin Dose 2 TAB; Start 01/11/19 at 15:30 Insulin Glargine (Lantus) 6 units DAILY@2000 SC Last administered on 01/18/19 20:41; Admin Dose 6 UNITS; Start 01/12/19 at 20:00 Insulin Aspart (Novolog Insulin Pen) 3 unit WITH MEALS SC Last administered on 01/19/19 17:43; Admin Dose 3 UNIT; Start 01/12/19 at 12:00 Insulin Aspart (Novolog Insulin Pen) NOVOLOG *MILD* ALGORITHM WITH MEALS BEDTIME SC Last administered on 01/19/19 17:45; Admin Dose 2 UNIT; Start 01/12/19 at 12:00 Linagliptin (Tradjenta) 5 mg DAILY PO Last administered on 01/19/19 08:31; Admin Dose 5 MG; Start 01/12/19 at 11:30 Escitalopram Oxalate (Lexapro) 10 mg DAILY PO Last administered on 01/19/19 08:28; Admin Dose 10 MG; Start 01/12/19 at 11:30 Tacrolimus (Prograf) 2 mg Q12 PO Last administered on 01/19/19 21:25; Admin Dose 2 MG; Start 01/12/19 at 21:00 Amoxicillin/ Clavulanate Potassium (Augmentin) 500 mg Q12 PO Last administered on 01/19/19 21:25; Admin Dose 500 MG; Start 01/12/19 at 14:00 Pantoprazole (Protonix Tab) 40 mg DAILY@06 PO Last administered on 01/19/19 05:34; Admin Dose 40 MG; Start 01/14/19 at 06:00 Metoclopramide HCl (Reglan) 5 mg Q6H PRN IV NAUSEA AND/OR VOMITING Last administered on 01/13/19 13:16; Admin Dose 5 MG; Start 01/13/19 at 13:00 Furosemide (Lasix) 40 mg DAILY PO Last administered on 01/19/19 08:34; Admin Dose 40 MG; Start 01/14/19 at 09:00 Sodium Chloride 50 ml @ 100 mls/hr Q12 IVPB Last administered on 01/19/19 21:25; Admin Dose 100 MLS/HR; Start 01/14/19 at 21:00; Stop 01/29/19 at 23:00 Cefazolin Sodium 50 ml @ 100 mls/hr Q12 IVPB Last administered on 01/19/19 21:25; Admin Dose 100 MLS/HR; Start 01/16/19 at 01:00 Hydralazine HCl (Apresoline) 50 mg Q12 PO Last administered on 01/19/19 21:25; Admin Dose 50 MG; Start 01/18/19 at 21:00 Assessment/Plan Hospital Course (Demo Recall) This is a 58-year-old male who is known to me from prior admission and was admitted again to the hospital with a hyperkalemia. A urological consultation was requested because of a hematoma of the right abdominal wall above the iliac crest on the right side. The patient has also the following problems: -Anemia of acute blood loss, status post blood transfusion -Severe hyperkalemia, s/p Kayexalate. -Bilateral lower extremities and scrotal edema -Right middle finger cellulitis with gangrene, resolving. -Chronic kidney disease stage IV, status post cadaveric kidney transplant in 2009. Diabetes mellitus type 2 with diabetic neuropathy -Atherosclerosis -Hypertension. -History of right fourth finger gangrene -History of Juan's esophagus and severe gastritis. -Chronic HCV infection -Rheumatoid arthritis -History of polysubstance and IV drug use The hematoma that he has is in the right side of the abdomen is getting smaller in size and is less painful, it has decreased in size and it is getting yellowish and softer. No sign of infection at the present. Plan just observe RAMILA GONZALEZ MD Jan 20, 2019 08:29
[2019-01-20] MEDS: PANTOPRAZOLE (EC) 40 MG TAB PO SCH (09:50)
[2019-01-20] MEDS: TACROLIMUS 1 MG CAP PO SCH ×2 (09:50→20:20)
--- NOTE | 2019-01-20 12:23 | CONS ---
Assessment/Plan Assessment/Plan Hospital Course (Demo Recall) IMPRESSION: 1. Hypertension-reasonable control 2. Congestive heart failure, diastolic by most recent echo in 12/2018, EF 60- 65%, acute on chronic. 3. Abnormal electrocardiogram with anteroseptal Q's. Assess for acute coronary syndrome. 4. Chronic kidney disease, status post prior cadaveric renal transplant. 5. Rheumatoid arthritis. 6. Diabetes mellitus. 7. Prior gangrenous changes of fingertip, managed conservatively due to the patient's preference. 8. Hyperkalemia, ongoing. 9. [id number] renal failure. 10. Anemia- s/p transfusions 11. Abdominal hematoma-? etiology 12.? endocarditis-Dx at OSH and supposed to still be on abx course Recc: -Tele -Continue hydralazine with slight increase and follow BP clsoely -Back on Immunosuppresives/steroids -Continue abx's and f/u cx data -Contiue daily lasix -Continue steroids Consultation Date/Type/Reason Admit Date/Time Jan 09, 2019 at 21:14 Initial Consult Date 01/12/19 Type of Consult Cardiology Reason for Consultation HTN Requesting Provider: LUPE KAPLAN MD Date/Time of Note DATE: 01/20/19 TIME: 12:21 Exam/Review of Systems Vital Signs Vitals Vital Signs Date Temp Pulse Resp B/P (MAP) Pulse Ox O2 O2 Flow FiO2 Time Delivery Rate 01/20/19 98.5 77 18 131/53 98 11:25 (79) 01/19/19 Room Air 08:51 Intake and Output 01/19/19 01/19/19 01/20/19 1515:00 23:00 07:00 IntakeIntake Total 600 ml 400 ml BalanceBalance 600 ml 400 ml Exam Exam Review of Systems: CONSTITUTIONAL: No fevers, chills. PULMONARY: No sob CARDIOVASCULAR: No chest pain/palpitations GASTROINTESTINAL: No nausea/vomiting. GENITOURINARY: No hematuria/dysuria. MUSCULOSKELETAL: No myagias/arthalgias. PSYCHIATRIC: The patient denies depression. NEUROLOGIC: No weakness Constitutional: other (sleeping, arousable) Psych: no complaints Head: normocephalic ENMT: mucosa pink and moist Neck: supple, jvd ( 9 cm water) Respiratory: diminished breath sounds Cardiovascular: regular rate and rhythm Gastrointestinal: soft, non-tender Musculoskeletal: muscle tone (normal) Extremities: edema (none) 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: lethargic Labs Result Diagram: 01/19/19 0501/19/19 0525 Results 24hrs Laboratory Tests Test 01/19/19 17:07 01/19/19 21:24 01/20/19 07:58 01/20/19 11:37 Bedside Glucose 204 125 139 158 Medications Medications Current Medications IV Flush (NS 3 ml) 3 ml PER PROTOCOL IV ; Start 01/09/19 at 22:00 Ondansetron HCl (Zofran Inj) 4 mg Q6H PRN IV NAUSEA/VOMITING Last administered on 01/18/19at 08:09; Admin Dose 4 MG; Start 01/09/19 at 22:00 Diagnostic Test (Pha) (Accu-Chek) 1 ea 02 XX Last administered on 01/14/19at 01:16; Admin Dose 1 EA; Start 01/11/19 at 02:00 Miscellaneous Information 1 ea NOTE XX ; Start 01/10/19 at 04:00 Glucose (Glutose) 15 gm Q15M PRN PO DECREASED GLUCOSE; Start 01/10/19 at 04:00 Glucose (Glutose) 22.5 gm Q15M PRN PO DECREASED GLUCOSE; Start 01/10/19 at 04: 00 Dextrose (D50w Syringe) 25 ml Q15M PRN IV DECREASED GLUCOSE; Start 01/10/19 at 04:00 Dextrose (D50w Syringe) 50 ml Q15M PRN IV DECREASED GLUCOSE Last administered on 01/18/19at 08:10; Admin Dose 50 ML; Start 01/10/19 at 04:00 Glucagon (Glucagen) 1 mg Q15M PRN IM DECREASED GLUCOSE; Start 01/10/19 at 04:00 Glucose (Glutose) 15 gm Q15M PRN BUCCAL DECREASED GLUCOSE; Start 01/10/19 at 04:00 Guaifenesin/ Dextromethorphan (Robitussin Dm Liquid Cup) 10 ml Q6 PRN PO COUGH Last administered on 01/10/19at 16:45; Admin Dose 10 ML; Start 01/10/19 at 10:30 Epoetin Fidencio (Epogen (Esrd)) 3,000 units MoWeFr@17 SC Last administered on 01/13/19at 17:47; Admin Dose 3,000 UNITS; Start 01/11/19 at 17:00 Prednisone (Prednisone) 5 mg DAILY PO Last administered on 01/20/19 08:27; Admin Dose 5 MG; Start 01/11/19 at 15:30 Acetaminophen/ Hydrocodone Bitart ([place] (10/325)) 2 tab Q6H PRN PO MODERATE PAIN LEVEL 4-6 Last administered on 01/20/19 08:27; Admin Dose 2 TAB; Start 01/11/19 at 15:30 Insulin Glargine (Lantus) 6 units DAILY@2000 SC Last administered on 01/18/19 20:41; Admin Dose 6 UNITS; Start 01/12/19 at 20:00 Insulin Aspart (Novolog Insulin Pen) 3 unit WITH MEALS SC Last administered on 01/20/19 11:50; Admin Dose 3 UNIT; Start 01/12/19 at 12:00 Insulin Aspart (Novolog Insulin Pen) NOVOLOG *MILD* ALGORITHM WITH MEALS BEDTIME SC Last administered on 01/20/19 12:03; Admin Dose 1 UNIT; Start 01/12/19 at 12:00 Linagliptin (Tradjenta) 5 mg DAILY PO Last administered on 01/20/19 08:27; Admin Dose 5 MG; Start 01/12/19 at 11:30 Escitalopram Oxalate (Lexapro) 10 mg DAILY PO Last administered on 01/19/19 08:28; Admin Dose 10 MG; Start 01/12/19 at 11:30 Tacrolimus (Prograf) 2 mg Q12 PO Last administered on 01/20/19 09:50; Admin Dose 2 MG; Start 01/12/19 at 21:00 Amoxicillin/ Clavulanate Potassium (Augmentin) 500 mg Q12 PO Last administered on 01/20/19 08:27; Admin Dose 500 MG; Start 01/12/19 at 14:00 Pantoprazole (Protonix Tab) 40 mg DAILY@06 PO Last administered on 01/20/19 09:50; Admin Dose 40 MG; Start 01/14/19 at 06:00 Metoclopramide HCl (Reglan) 5 mg Q6H PRN IV NAUSEA AND/OR VOMITING Last administered on 01/13/19 13:16; Admin Dose 5 MG; Start 01/13/19 at 13:00 Furosemide (Lasix) 40 mg DAILY PO Last administered on 01/20/19 08:28; Admin Dose 40 MG; Start 01/14/19 at 09:00 Sodium Chloride 50 ml @ 100 mls/hr Q12 IVPB Last administered on 01/20/19 08:28; Admin Dose 100 MLS/HR; Start 01/14/19 at 21:00; Stop 01/29/19 at 23:00 Cefazolin Sodium 50 ml @ 100 mls/hr Q12 IVPB Last administered on 01/20/19 08:26; Admin Dose 100 MLS/HR; Start 01/16/19 at 01:00 Hydralazine HCl (Apresoline) 50 mg Q12 PO Last administered on 01/20/19 08:27; Admin Dose 50 MG; Start 01/18/19 at 21:00 ABDELRAHMAN KNOTT Jan 20, 2019 12:23
--- NOTE | 2019-01-20 15:33 | PN ---
Date/Time of Note Date/Time of Note DATE: 01/20/19 TIME: 15:32 Assessment/Plan VTE Prophylaxis Risk score (from Nsg)>0 risk: 3 SCD applied (from Nsg): No Lines/Catheters IV Catheter Type (from [facility]): PICC Line Urinary Cath still in place: No Assessment/Plan Hospital Course -Renal hematoma CT of the abdomen and pelvis, Dr. Noguera is following in urology consultation. -Anemia of acute blood loss, status post blood transfusion, continue to monitor H&H. -Severe hyperkalemia, s/p Kayexalate. - Dr. Fofana is following in nephrology consultation. -Endocarditis, continue cefazolin. -Bilateral lower extremities and scrotal edema -Right middle finger cellulitis with gangrene, resolving. Dr. Olmstead is following in infection disease consultation. -Chronic kidney disease stage IV, status post cadaveric kidney transplant in 2009. -Diabetes mellitus type 2 with diabetic neuropathy, hemoglobin A1c is 6.7. Continue Tradjenta, Lantus and NovoLog. -Atherosclerosis -Hypertension. -History of right fourth finger gangrene -History of Juan's esophagus and severe gastritis. -Chronic HCV infection -Rheumatoid arthritis -History of polysubstance and IV drug use Assessment/Plan -Renal hematoma CT of the abdomen and pelvis, Dr. Noguera is following in urology consultation. -Anemia of acute blood loss, status post blood transfusion, continue to monitor H&H. -Severe hyperkalemia, s/p Kayexalate. - Dr. Fofana is following in nephrology consultation. -Endocarditis, continue cefazolin. -Bilateral lower extremities and scrotal edema -Right middle finger cellulitis with gangrene, resolving. Dr. Olmstead is following in infection disease consultation. -Chronic kidney disease stage IV, status post cadaveric kidney transplant in 2009. -Diabetes mellitus type 2 with diabetic neuropathy, hemoglobin A1c is 6.7. Continue Tradjenta, Lantus and NovoLog. -Atherosclerosis -Hypertension. -History of right fourth finger gangrene -History of Juan's esophagus and severe gastritis. -Chronic HCV infection -Rheumatoid arthritis -History of polysubstance and IV drug use Result Diagram: 01/19/19 0525 01/19/19 0525 Results 24hrs Laboratory Tests Test 01/19/19 17:07 01/19/19 21:24 01/20/19 07:58 01/20/19 11:37 Bedside Glucose 204 125 139 158 Exam/Review of Systems Exam Vitals Vital Signs Date Temp Pulse Resp B/P (MAP) Pulse Ox O2 O2 Flow FiO2 Time Delivery Rate 01/20/19 74 12:00 01/20/19 98.5 18 131/53 98 11:25 (79) 01/19/19 Room Air 08:51 Intake and Output 01/19/19 01/19/19 01/20/19 1515:00 23:00 07:00 IntakeIntake Total 600 ml 400 ml BalanceBalance 600 ml 400 ml Constitutional: alert, oriented, well developed Psych: nl mood/affect Head: normocephalic Eyes: EOMI ENMT: nl external ears & nose Neck: non-tender Respiratory: clear to auscultation Cardiovascular: nl pulses Gastrointestinal: soft Extremities: normal pulses 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: nl mental status, nl speech Skin: nl turgor Lymph: nontender Results Results 24hrs Laboratory Tests Test 01/19/19 17:07 01/19/19 21:24 01/20/19 07:58 01/20/19 11:37 Bedside Glucose 204 125 139 158 Medications Medication Current Medications IV Flush (NS 3 ml) 3 ml PER PROTOCOL IV ; Start 01/09/19 at 22:00 Ondansetron HCl (Zofran Inj) 4 mg Q6H PRN IV NAUSEA/VOMITING Last administered on 01/18/19at 08:09; Admin Dose 4 MG; Start 01/09/19 at 22:00 Diagnostic Test (Pha) (Accu-Chek) 1 ea 02 XX Last administered on 01/14/19at 01:16; Admin Dose 1 EA; Start 01/11/19 at 02:00 Miscellaneous Information 1 ea NOTE XX ; Start 01/10/19 at 04:00 Glucose (Glutose) 15 gm Q15M PRN PO DECREASED GLUCOSE; Start 01/10/19 at 04:00 Glucose (Glutose) 22.5 gm Q15M PRN PO DECREASED GLUCOSE; Start 01/10/19 at 04:00 Dextrose (D50w Syringe) 25 ml Q15M PRN IV DECREASED GLUCOSE; Start 01/10/19 at 04:00 Dextrose (D50w Syringe) 50 ml Q15M PRN IV DECREASED GLUCOSE Last administered on 01/18/19 08:10; Admin Dose 50 ML; Start 01/10/19 at 04:00 Glucagon (Glucagen) 1 mg Q15M PRN IM DECREASED GLUCOSE; Start 01/10/19 at 04:00 Glucose (Glutose) 15 gm Q15M PRN BUCCAL DECREASED GLUCOSE; Start 01/10/19 at 04:00 Guaifenesin/ Dextromethorphan (Robitussin Dm Liquid Cup) 10 ml Q6 PRN PO COUGH Last administered on 01/10/19 16:45; Admin Dose 10 ML; Start 01/10/19 at 10:30 Epoetin Fidencio (Epogen (Esrd)) 3,000 units MoWeFr@17 SC Last administered on 01/13/19 17:47; Admin Dose 3,000 UNITS; Start 01/11/19 at 17:00 Prednisone (Prednisone) 5 mg DAILY PO Last administered on 01/20/19 08:27; Admin Dose 5 MG; Start 01/11/19 at 15:30 Acetaminophen/ Hydrocodone Bitart ([place] ()) 2 tab Q6H PRN PO MODERATE PAIN LEVEL 4-6 Last administered on 01/20/19 08:27; Admin Dose 2 TAB; Start 01/11/19 at 15:30 Insulin Glargine (Lantus) 6 units DAILY@2000 SC Last administered on 01/18/19 20:41; Admin Dose 6 UNITS; Start 01/12/19 at 20:00 Insulin Aspart (Novolog Insulin Pen) 3 unit WITH MEALS SC Last administered on 01/20/19 11:50; Admin Dose 3 UNIT; Start 01/12/19 at 12:00 Insulin Aspart (Novolog Insulin Pen) NOVOLOG *MILD* ALGORITHM WITH MEALS BEDTIME SC Last administered on 01/20/19 12:03; Admin Dose 1 UNIT; Start 01/12/19 at 12:00 Linagliptin (Tradjenta) 5 mg DAILY PO Last administered on 01/20/19 08:27; Admin Dose 5 MG; Start 01/12/19 at 11:30 Escitalopram Oxalate (Lexapro) 10 mg DAILY PO Last administered on 01/19/19 08:28; Admin Dose 10 MG; Start 01/12/19 at 11:30 Tacrolimus (Prograf) 2 mg Q12 PO Last administered on 01/20/19 09:50; Admin Do se 2 MG; Start 01/12/19 at 21:00 Amoxicillin/ Clavulanate Potassium (Augmentin) 500 mg Q12 PO Last administered on 01/20/19 08:27; Admin Dose 500 MG; Start 01/12/19 at 14:00 Pantoprazole (Protonix Tab) 40 mg DAILY@06 PO Last administered on 01/20/19 09:50; Admin Dose 40 MG; Start 01/14/19 at 06:00 Metoclopramide HCl (Reglan) 5 mg Q6H PRN IV NAUSEA AND/OR VOMITING Last administered on 01/13/19 13:16; Admin Dose 5 MG; Start 01/13/19 at 13:00 Furosemide (Lasix) 40 mg DAILY PO Last administered on 01/20/19 08:28; Admin Dose 40 MG; Start 01/14/19 at 09:00 Sodium Chloride 50 ml @ 100 mls/hr Q12 IVPB Last administered on 01/20/19 08:28; Admin Dose 100 MLS/HR; Start 01/14/19 at 21:00; Stop 01/29/19 at 23:00 Cefazolin Sodium 50 ml @ 100 mls/hr Q12 IVPB Last administered on 01/20/19 08 :26; Admin Dose 100 MLS/HR; Start 01/16/19 at 01:00 Hydralazine HCl (Apresoline) 50 mg Q12 PO Last administered on 01/20/19 08:27; Admin Dose 50 MG; Start 01/18/19 at 21:00 EILEEN COBURN Jan 20, 2019 15:33
--- NOTE | 2019-01-20 16:53 | CONS ---
Assessment/Plan Assessment/Plan Hospital Course (Demo Recall) - Anasarca, improved with IV Lasix - Endocarditis - Dr. Cottrell rec'd call from [facility] 01/15/19 regarding this and plan was to complete cefazolin through 01.29.19 - Completing Augmentin for progressive swelling of distal aspect of right ring finger with x-ray showing further of erosion and lucency involving the distal aspect of the distal phalanx of the right ring finger suspicious for osteomye litis with improved but slight associated soft tissue swelling. ESR 67. - Hx OM of R 4th digit: swelling with new erosive changes and osteopenia of the underlying R 4th distal phalanx, suggestive of osteomyelitis; wound culture grew Serratia on 03/18/18 and Serratia + CoNS (likely colonizer) on 04/04/18 ; Pt declined amputation. ESR 39 on 03/18/2018. S/p Levaquin x 6 weeks, ESR 60 01/13/19 - Hematoma within the right lateral abdominal wall musculature which has developed since the previous study done 12/13/2018 measuring 7.3 x 4.6 cm in cross diameter and extending an acrylic that dimension approximately 10.7 cm from the level of the superior pole of the [place] right kidney to just inferior to the right iliac crest per CT 01/12/19 - Calcification of the vas deferens with a persistent hydrocele within the scrotum per CT 01/12/19 - Bacteremia d/t MSSA 12/09/2018, repeat blood cx 12/12/18 NGTD - MRSA and K. pneumoniae in urine cx 12/09/2018 - UA was neg for pyuria - Hx mild subtle increased activity within the upper aspect of LUE, nonspecific, on WBC tagged scan on 04/05/2018 - Hx OM of R 3rd fingertip (XR showed periosteal reaction at the tip of R 3rd distal phalanx, suspicious for OM, MRI showed cellulitis of distal R 4th phalanx, without OM) and L 2nd fingertip (XR showed cortical irregularity at the tuft of L 2nd distal phalanx with overlying soft tissue defect, suggesting early OM, MRI showed OM at L 2nd distal phalanx with, cellulitis about L 2nd distal phalanx without drainable fluid collection.) - Hx OM of R 2nd finger s/p amputation at proximal phalanx neck, and h/o OM of L 3rd finger s/p amputation at middle and distal phalanges - Acute on chronic renal failure - Hyperkalemia with metabolic acidosis - slowly improving with sodium bicarb - Hx ESRD, was on HD - S/p renal transplant in 2009 (on tacrolimus, mycophenolate and prednisone), chronic renal insufficiency at baseline - DM - Hgb A1c 10.5% - Hx Juan's esophagus and gastritis s/p EGD on 08/12/2017. No H. pylori on Bx - BLE atherosclerosis - Seen by Vascular Surgery during last admit - Onychomycosis, tinea pedis - Seen by [employer] during last admit - Rheumatoid arthritis - Chronic HCV infection - HTN - Dyslipidemia - Hx polysubstance and IV drug use. 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 psychosis - on Lexapro - Abdominal distention and pain Recommendations: - Unasyn through 01.29.19 - Serial ESR - monitor tacrolimus level as noted to be low on 01.23.19 Consultation Date/Type/Reason Admit Date/Time Jan 09, 2019 at 21:14 Initial Consult Date 01/14/19 Type of Consult ID Requesting Provider: LUPE KAPLAN MD Date/Time of Note DATE: 01/20/19 TIME: 16:52 Exam/Review of Systems Exam Vitals Vital Signs Date Temp Pulse Resp B/P (MAP) Pulse Ox O2 O2 Flow FiO2 Time Delivery Rate 01/20/19 98.1 85 18 135/81 100 15:33 (99) 01/19/19 Room Air 08:51 Intake and Output 01/19/19 01/19/19 01/20/19 1515:00 23:00 07:00 IntakeIntake Total 600 ml 400 ml BalanceBalance 600 ml 400 ml Results Result Diagram: 01/19/19 0525 01/19/19 0525 Results 24hrs Laboratory Tests Test 01/19/19 17:07 01/19/19 21:24 01/20/19 07:58 01/20/19 11:37 Bedside Glucose 204 125 139 158 Medications Medication Current Medications IV Flush (NS 3 ml) 3 ml PER PROTOCOL IV ; Start 01/09/19 at 22:00 Ondansetron HCl (Zofran Inj) 4 mg Q6H PRN IV NAUSEA/VOMITING Last administered on 01/18/19 08:09; Admin Dose 4 MG; Start 01/09/19 at 22:00 Diagnostic Test (Pha) (Accu-Chek) 1 ea 02 XX Last administered on 01/14/19at 01:16; Admin Dose 1 EA; Start 01/11/19 at 02:00 Miscellaneous Information 1 ea NOTE XX ; Start 01/10/19 at 04:00 Glucose (Glutose) 15 gm Q15M PRN PO DECREASED GLUCOSE; Start 01/10/19 at 04:00 Glucose (Glutose) 22.5 gm Q15M PRN PO DECREASED GLUCOSE; Start 01/10/19 at 04:00 Dextrose (D50w Syringe) 25 ml Q15M PRN IV DECREASED GLUCOSE; Start 01/10/19 at 04:00 Dextrose (D50w Syringe) 50 ml Q15M PRN IV DECREASED GLUCOSE Last administered on 01/18/19at 08:10; Admin Dose 50 ML; Start 01/10/19 at 04:00 Glucagon (Glucagen) 1 mg Q15M PRN IM DECREASED GLUCOSE; Start 01/10/19 at 04:00 Glucose (Glutose) 15 gm Q15M PRN BUCCAL DECREASED GLUCOSE; Start 01/10/19 at 04:00 Guaifenesin/ Dextromethorphan (Robitussin Dm Liquid Cup) 10 ml Q6 PRN PO COUGH Last administered on 01/10/19at 16:45; Admin Dose 10 ML; Start 01/10/19 at 10:30 Epoetin Fidencio (Epogen (Esrd)) 3,000 units MoWeFr@17 SC Last administered on 01/13/19 17:47; Admin Dose 3,000 UNITS; Start 01/11/19 at 17:00 Prednisone (Prednisone) 5 mg DAILY PO Last administered on 01/20/19 08:27; Admin Dose 5 MG; Start 01/11/19 at 15:30 Acetaminophen/ Hydrocodone Bitart ([place] ()) 2 tab Q6H PRN PO MODERATE PAIN LEVEL 4-6 Last administered on 01/20/19 16:19; Admin Dose 2 TAB; Start 01/11/19 at 15:30 Insulin Glargine (Lantus) 6 units DAILY@2000 SC Last administered on 01/18/19 20:41; Admin Dose 6 UNITS; Start 01/12/19 at 20:00 Insulin Aspart (Novolog Insulin Pen) 3 unit WITH MEALS SC Last administered on 01/20/19 11:50; Admin Dose 3 UNIT; Start 01/12/19 at 12:00 Insulin Aspart (Novolog Insulin Pen) NOVOLOG *MILD* ALGORITHM WITH MEALS BEDTIME SC Last administered on 01/20/19 12:03; Admin Dose 1 UNIT; Start 01/12/19 at 12:00 Linagliptin (Tradjenta) 5 mg DAILY PO Last administered on 01/20/19 08:27; Admin Dose 5 MG; Start 01/12/19 at 11:30 Escitalopram Oxalate (Lexapro) 10 mg DAILY PO Last administered on 01/19/19 08:28; Admin Dose 10 MG; Start 01/12/19 at 11:30 Tacrolimus (Prograf) 2 mg Q12 PO Last administered on 01/20/19 09:50; Admin Dose 2 MG; Start 01/12/19 at 21:00 Amoxicillin/ Clavulanate Potassium (Augmentin) 500 mg Q12 PO Last administered on 01/20/19 08:27; Admin Dose 500 MG; Start 01/12/19 at 14:00 Pantoprazole (Protonix Tab) 40 mg DAILY@06 PO Last administered on 01/20/19 09:50; Admin Dose 40 MG; Start 01/14/19 at 06:00 Metoclopramide HCl (Reglan) 5 mg Q6H PRN IV NAUSEA AND/OR VOMITING Last administered on 01/13/19 13:16; Admin Dose 5 MG; Start 01/13/19 at 13:00 Furosemide (Lasix) 40 mg DAILY PO Last administered on 01/20/19 08:28; Admin Dose 40 MG; Start 01/14/19 at 09:00 Sodium Chloride 50 ml @ 100 mls/hr Q12 IVPB Last administered on 01/20/19 08:28; Admin Dose 100 MLS/HR; Start 01/14/19 at 21:00; Stop 01/29/19 at 23:00 Cefazolin Sodium 50 ml @ 100 mls/hr Q12 IVPB Last administered on 01/20/19 08:26; Admin Dose 100 MLS/HR; Start 01/16/19 at 01:00 Hydralazine HCl (Apresoline) 50 mg Q12 PO Last administered on 01/20/19at 08:27; Admin Dose 50 MG; Start 01/18/19 at 21:00 PARAMJIT COTTRELL MD Jan 20, 2019 16:53
[2019-01-20] MEDS: EPOETIN 3000 UNITS/1 ML INJ (ESRD) SC SCH (17:00)
[2019-01-20] MEDS: INSULIN GLARGINE [LANTus] (100 UNITS/ML) SYG SC SCH (20:00)
[2019-01-20] MEDS ORDERED: CEFAZOLIN 1 GM/50 ML (PMX) 50 ML IVPB SCH (21:00)
[2019-01-21] MEDS ORDERED: AMPICILLIN/SULB 3 GM/NS (PMX) 100 ML IVPB SCH (09:00)
== END 2019-01-20 21:25 | disposition home health service (06) | DRG 291 ==
LOC: E/R 17:11 → 6WM 21:14
PROVIDERS: ADMIT Internal Medicine; ATTEND Internal Medicine
PROC: 30233N1 Transfusion of Nonautologous Red Blood Cells into Peripheral Vein, Percutaneous Approach (ICD-10-PCS; principal; 2019-01-11)
DX: I13.0 Hypertensive heart and chronic kidney disease with heart failure and stage 1 through stage 4 chronic kidney disease, or unspecified chronic kidney disease (principal); I50.33 Acute on chronic diastolic (congestive) heart failure; N17.9 Acute kidney failure, unspecified; N18.4 Chronic kidney disease, stage 4 (severe); Z94.0 Kidney transplant status; E11.52 Type 2 diabetes mellitus with diabetic peripheral angiopathy with gangrene; D62 Acute posthemorrhagic anemia; I38 Endocarditis, valve unspecified; E87.2 Acidosis; S37.011A Minor contusion of right kidney, initial encounter; I96 Gangrene, not elsewhere classified; F33.9 Major depressive disorder, recurrent, unspecified; E87.5 Hyperkalemia; E11.8 Type 2 diabetes mellitus with unspecified complications; E11.21 Type 2 diabetes mellitus with diabetic nephropathy; E11.22 Type 2 diabetes mellitus with diabetic chronic kidney disease; F14.11 Cocaine abuse, in remission; R60.1 Generalized edema; F12.10 Cannabis abuse, uncomplicated; B19.20 Unspecified viral hepatitis C without hepatic coma; N28.9 Disorder of kidney and ureter, unspecified; I73.9 Peripheral vascular disease, unspecified; E78.5 Hyperlipidemia, unspecified; D64.9 Anemia, unspecified; M06.9 Rheumatoid arthritis, unspecified; E11.40 Type 2 diabetes mellitus with diabetic neuropathy, unspecified; L03.011 Cellulitis of right finger
CPT/HCPCS: 36415; 36430; 71045; 74176; 76775; 80048; 80053; 80061; 80197; 82550; 82553; 82962; 83036; 83735; 83880; 84100; 84132; 84484; 85025; 85049; 85610; 85651; 85670; 85730; 86850; 86900; 86901; 86920; 93005; 93970; 94644; 96374; 96375; J0295; J0690; J0886; J1650; J1815; J1940; J2270; J2405; J2765; J7040; J7507; J7512; P9016

== ENCOUNTER 2019-03-16 12:15 | Inpatient (IN) | payer OTHER ==
[~2019-03-16] VITALS: Ht 172.7 cm; Wt 54.1 kg
[~2019-03-16 12:15] MED LIST changes: +CEFA2PLA9 IV; -CLON-379 PO; +ESCI10TA48 PO; +FURO40TA4 PO; -GLIP5TAB13 PO; +HYDR-3671 PO; -MYCO180T2 PO; +ONDA4TAB13 PO; +PANT40TA4 PO; -TACR1CAP PO; +TACR1CAP26 PO
--- NOTE | 2019-03-16 12:36 | ERD ---
ER Documentation Chief Complaint Chief Complaint SOB/AP HPI The patient is a 58-year-old male, presenting to the ER because of acute dyspnea, orthopnea, paroxysmal nocturnal dyspnea for the last 2 weeks intermittently, worse today. He denies similar symptoms previously, denies fever, chills, neck pain, chest pain, complains of vague lower abdominal discomfort, denies diarrhea, constipation. He does not smoke nor drink, has history of substance abuse. Baseline creatinine is 3 Past medical history: Depression, hypertension, diabetes mellitus, hepatitis C, history of endocarditis, chronic kidney disease, CAD, history of Juan's esophagus, rheumatoid arthritis Past surgical history: Renal transplant in 2009 ROS All systems reviewed and are negative except as per history of present illness. Medications Home Meds Active Scripts Tacrolimus* (Prograf*) 1 Mg Capsule, 2 MG PO Q12 for 30 Days, CAP Prov:LETI RODRIGUEZ 01/19/19 Reported Medications Insulin Lispro (Humalog) 100 Unit/1 Ml Cartridge, 0 SQ SLIDING SCALE, EA 2-10 UNITS 03/16/19 Mycophenolate Sodium* (Mycophenolic Acid*) 180 Mg Tablet.dr, 180 MG PO Q12, TAB 03/16/19 Prednisone* (Prednisone*) 5 Mg Tab, 5 MG PO DAILY, TAB 12/09/18 Discontinued Reported Medications Insulin Lispro (Humalog) 100 Unit/1 Ml Cartridge, 2-10 UNITS SQ SLIDING SCALE, EA INSURANECE NOT COVERED THIS INSULIN 09/23/18 Discontinued Scripts Pantoprazole* (Pantoprazole*) 40 Mg Tablet.dr, 40 MG PO DAILY@06 for 30 Days Prov:LETI RODRIGUEZ 01/19/19 Ondansetron Hcl* (Zofran*) 4 Mg Tab, 4 MG PO Q4H PRN for NAUSEA AND OR VOMITING, #30 TAB Prov:LETI RODRIGUEZ 01/19/19 Furosemide* (Furosemide*) 40 Mg Tablet, 40 MG PO DAILY for 30 Days, TAB Prov:LETI RODRIGUEZ 01/19/19 Escitalopram Oxalate* (Escitalopram Oxalate*) 10 Mg Tablet, 10 MG PO DAILY for 30 Days, TAB Prov:LETI RODRIGUEZ 01/19/19 Hydralazine Hcl* (Hydralazine Hcl*) 25 Mg Tab, 50 MG PO Q12 for 30 Days, TAB Prov:LETI RODRIGUEZ 01/19/19 Cefazolin Sodium in 0.9 % NaCl (Cefazolin 2 G/100 ml-0.9% NaCl) 2 Gm/100 Ml Plast..bag, 1 GM IV Q12 for 10 Days Prov:LETI RODRIGUEZ 01/19/19 Sitagliptin* (Januvia*) 50 Mg Tablet, 50 MG PO DAILY, #30 TAB Prov:LETI RODRIGUEZ 01/19/19 Allergies Allergies: Coded Allergies: magnesium (Unverified Allergy, Intermediate, 03/16/19) NUMBNESS AND HOT FUSHES PMhx/Soc History of Surgery: Yes (Kidney transplant 2011) Anesthesia Reaction: No Hx 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 Disorder: Yes (Neuropathy) Hx Respiratory Disorders: No Hx Cardiac Disorders: Yes (htn) Hx Psychiatric Problems: No Hx Miscellaneous Medical Probl: No Hx Alcohol Use: No Hx Substance Use: No Hx Tobacco Use: Yes Physical Exam Vitals Vital Signs Date Temp Pulse Resp B/P (MAP) Pulse Ox O2 O2 Flow FiO2 Time Delivery Rate 03/16/19 95 25 158/104 100 Room Air 16:12 (122) 03/16/19 81 17 114/93 100 Room Air 15:13 (100) 03/16/19 85 20 96 21 15:00 03/16/19 Nasal 2 13:13 Cannula 03/16/19 98.4 82 18 144/84 96 12:23 (104) Physical Exam Const: No acute distress. Head: Atraumatic. Eyes: Normal Conjunctiva. ENT: Normal External Ears, Nose and Mouth. Neck: Full range of motion. No meningismus. Resp: Clear to auscultation bilaterally. Cardio: Regular rate and rhythm. Abd: Soft, non distended, normal bowel sounds, non tender. Skin: No petechiae or rashes. Back: No midline or flank tenderness. Ext: No cyanosis, or edema. Neur: Awake and alert. No focal deficit Psych: Normal Mood and Affect. Result Diagram: 03/16/19 1329 03/16/19 1324 Results 24 hrs Laboratory Tests Test 03/16/19 13:24 03/16/19 13:26 03/16/19 13:29 03/16/19 15:09 Prothrombin Time 12.9 Sec Prothrombin Time 1.0 Ratio INR International 0.96 Normalized Ratio Activated 27.0 Sec Partial Thromboplas t Time Sodium Level 142 mmol/L Potassium Level 5.8 mmol/L Chloride Level 115 mmol/L Carbon Dioxide 14 mmol/L Level Anion Gap 13 Blood Urea Nitrogen 65 mg/dl Creatinine 4.87 mg/dl Est Glomerular 12 mL/min Filtrat Rate mL/min Glucose Level 163 mg/dl Calcium Level 9.6 mg/dl Total Bilirubin 0.4 mg/dl Direct Bilirubin 0.00 mg/dl Indirect Bilirubin 0.4 mg/dl Aspartate Amino 28 IU/L Transf (AST/SGOT) Alanine 13 IU/L Aminotransferase (A LT/SGPT) Alkaline 116 IU/L Phosphatase Troponin I 0.049 ng/ml B-Type Natriuretic 43439 PG/ML Peptide Total Protein 8.5 g/dl Albumin 4.5 g/dl Globulin 4.00 g/dl Albumin/Globulin 1.12 Ratio Lipase 337 U/L Bedside Urine pH 6.0 (LAB) Bedside Urine 3+ Protein (LAB) Bedside Urine Negative Glucose (UA) Bedside Urine Negative Ketones (LAB) Bedside Urine Blood 1+ Bedside Urine Negative Nitrite (LAB) Bedside Urine 1+ Leukocyte Esterase (L White Blood Count 5.0 10^3/ul Red Blood Count 3.08 10^6/ul Hemoglobin 9.9 g/dl Hematocrit 31.4 % Mean Corpuscular 101.9 fl Volume Mean Corpuscular 32.1 pg Hemoglobin Mean Corpuscular 31.5 g/dl Hemoglobin Concent Red Cell 14.3 % Distribution Width Platelet Count 199 10^3/UL Mean Platelet 10.1 fl Volume Immature 0.400 % Granulocytes % Neutrophils % 74.3 % Lymphocytes % 12.9 % Monocytes % 9.0 % Eosinophils % 3.0 % Basophils % 0.4 % Nucleated Red Blood 0.0 /100WBC Cells % Immature 0.020 10^3/ul Granulocytes # Neutrophils # 3.7 10^3/ul Lymphocytes # 0.6 10^3/ul Monocytes # 0.5 10^3/ul Eosinophils # 0.2 10^3/ul Basophils # 0.0 10^3/ul Nucleated Red Blood 0.0 10^3/ul Cells # Bedside Glucose 155 mg/dL Test 03/16/19 15:38 Bedside Glucose 250 mg/dL Current Medications Medications Dose Sig/Kathryn Start Time Status Last (Trade) Ordered Route PRN Stop Time Admin Dose Reason Admin Ceftriaxone 50 ml @ ONCE ONCE 03/16/19 DC 03/16/19 Sodium 100 mls/hr IVPB 15:00 15:12 03/16/19 15:29 Sodium 30 gm ONCE STAT 03/16/19 DC 03/16/19 Polystyrene PO 14:49 15:12 Sulfonate 03/16/19 14:54 (Kayexelate 15 Gm Kit (Powder+Sorbi sasha)) Albuterol 15 mg ONCE STAT 03/16/19 DC 03/16/19 (Proventil INH 14:49 14:58 0.5% (Neb)) 03/16/19 14:53 Insulin 10 unit ONCE STAT 03/16/19 DC 03/16/19 Human IVP 14:49 15:11 Regular 03/16/19 14:53 (Humulin R) Dextrose ONCE PRN 03/16/19 (D50w IV DECREASED 15:00 Syringe) GLUCOSE 03/17/19 14:59 Dextrose 50 ml ONCE ONCE 03/16/19 DC 03/16/19 (D50w IV 15:00 15:12 Syringe) 03/16/19 15:01 Furosemide 40 mg ONCE ONCE 03/16/19 DC 03/16/19 (Lasix) IV 15:00 15:13 03/16/19 15:01 1 tab ONCE ONCE 03/16/19 DC 03/16/19 Acetaminophen PO 15:30 16:08 / 03/16/19 15:31 Hydrocodone Bitart ([place] (10/325)) Prednisone 5 mg DAILY PO 03/17/19 (Prednisone) 09:00 Tacrolimus 2 mg Q12 PO 03/16/19 (Prograf) 21:00 IV Flush 3 ml PER 03/16/19 (NS 3 ml) PROTOCOL IV 17:30 Ondansetron 4 mg Q6H PRN 03/16/19 HCl (Zofran IV 17:30 Inj) NAUSEA/VOMITI NG Aspirin 81 mg DAILY PO 03/17/19 (Aspirin) 09:00 1 tab Q5M PRN 03/16/19 Nitroglycerin SL .CHEST 17:30 PAIN (Nitroglyceri n (Sl Tab) 0.4 Mg) 650 mg Q6H PRN 03/16/19 Acetaminophen PO .PAIN 1-3 17:30 (Tylenol OR TEMP Tab) 1 tab Q6H PRN 03/16/19 Acetaminophen PO .PAIN 4-6 17:30 / Hydrocodone Bitart ([place] (5/325)) Morphine 2 mg Q4H PRN 03/16/19 Sulfate IV .PAIN 17:30 (morphine) 7-10 Zolpidem 5 mg QHS PRN 03/16/19 Tartrate PO .INSOMNIA 17:30 (Ambien) Docusate 100 mg Q12H PO 03/16/19 Sodium 17:30 (Colace) Bisacodyl 5 mg DAILY PRN 03/16/19 (Dulcolax) PO 17:30 .CONSTIPATION 40 mg DAILY@06 03/17/19 UNV Pantoprazole IV 06:00 (Protonix Iv) 1,000 ml @ [id number] IV 03/16/19 Dextrose/Sodi 60 mls/hr 18:00 um Chloride Insulin NOVOLOG Q6 SC 03/16/19 Aspart *MILD* 18:00 (Novolog ALGORITHM Insulin Pen) Discontinue ONCE ONCE 03/16/19 Miscellaneous all previ... XX 18:00 03/16/19 18:01 Information (* Miscellaneous Pharmacy Order) 1 ea NOTE XX 03/16/19 Miscellaneous 18:00 Information Glucose 15 gm Q15M PRN 03/16/19 (Glutose) PO DECREASED 18:00 GLUCOSE Glucose 22.5 gm Q15M PRN 03/16/19 (Glutose) PO DECREASED 18:00 GLUCOSE Dextrose 25 ml Q15M PRN 03/16/19 (D50w IV DECREASED 18:00 Syringe) GLUCOSE Dextrose 50 ml Q15M PRN 03/16/19 (D50w IV DECREASED 18:00 Syringe) GLUCOSE Glucagon 1 mg Q15M PRN 03/16/19 (Glucagen) IM DECREASED 18:00 GLUCOSE Glucose 15 gm Q15M PRN 03/16/19 (Glutose) BUCCAL 18:00 DECREASED GLUCOSE Sodium 50 ml ONCE ONCE 03/16/19 UNV Bicarbonate IV 18:00 (Na Bicarb 03/16/19 18:01 8.4% Syg) Procedures/[address] [address] Radiology Main Line: [phone] DIAGNOSTIC IMAGING REPORT Patient: MELITA GRIFFIN : 1960 Age: 58 Sex: M MR #: [id number] DOS: 03/16/19 1250 Ordering MD: SYLVESTER FINNEGAN MD Location: E/R Room/Bed: PROCEDURE: XR Chest CLINICAL INDICATION: Shortness of breath . TECHNIQUE: Frontal view of the chest COMPARISON: CT 01/12/2019; DR CHEST 01/09/2019; DREAD CHEST 04/28/2016; FINDINGS: The cardiomediastinal silhouette is within normal limits. Mild opacity in the right lung base. There is no evidence of significant pleural effusion or pneumothorax. Previously seen bilateral pleural effusions have essentially resolved. No suspicious osseous lesions. Soft tissue calcifications of the left upper extremity again noted. IMPRESSION: Right lung base opacity may represent atelectasis versus pulmonary infiltrate. RPTAT: HH Gaurang White Physician Date Time Electronically viewed and signed by Gaurang White Physician on 03/16/2019 13:50 HtN/ CC: SYLVESTER FINNEGAN MD [id number] EKG: Read by emergency physician Rate/Rhythm: Normal Sinus Rhythm 73 beats/min QRS, ST, T-waves: No ST elevation, no T inversion, septal Q's Impression: Abnormal EKG MEDICAL MAKING DECISION: The patient is a 58-year-old male, presenting with acute cystitis, acute hyperkalemia, acute on chronic kidney disease, acute CHF he was treated with Rocephin 1 g IV after urine culture was submitted,. D50 IV/10 units of regular insulin IV/Kayexalate 30 g p.o./albuterol 15 mg nebulizer for acute hyperkalemia, Lasix 40 mg IV for acute CHF with good response. Critical Care: Time: 35 minutes excluding all billable procedures. Treatments/Evaluations: Close monitoring and treatment of unstable vital signs, cardiorespiratory, and neurologic status, while maintaining tight balance of fluid, respiratory, and cardiac interventions. Departure Diagnosis: Primary Impression: Hyperkalemia Additional Impressions: UTI (urinary tract infection) CHF (congestive heart failure) [id number] renal failure Anemia Condition: Stable Comments I discussed the findings with the patient. I discussed the patient with Dr Page at 3:15 p , who was made aware of the lab, the treatment, the patient condition. The patient is admitted to [facility] Disclaimer: Inadvertent spelling and grammatical errors are likely due to EHR/dictation software use and do not reflect on the overall quality of patient care. Also, please note that the electronic time recorded on this note does not necessarily reflect the actual time of the patient encounter. SYLVESTER FINNEGAN MD March 16, 2019 12:36
[2019-03-16] MEDS ORDERED: MYCO180T2 PO (14:37)
[2019-03-16] MEDS ORDERED: INSU100C SQ (14:39)
[2019-03-16] MEDS ORDERED: INSULIN REGULAR, HUMAN 100 UNIT/1 ML 3ML VIAL IVP STA (14:49)
[2019-03-16] MEDS ORDERED: SODIUM POLYSTYRENE 15 GM KIT (POWDER + SORBITOL) PO STA (14:49)
[2019-03-16] MEDS ORDERED: ALBUTEROL 0.5% (NEB) 2.5 MG/0.5 ML AMP INH STA (14:49)
[2019-03-16] MEDS ORDERED: CEFTRIAXONE 1 GM/50 ML (PMX) 50 ML IVPB ONE (15:00)
[2019-03-16] MEDS ORDERED: DEXTROSE 50% 50 ML SYRINGE IV PRN ×3 (15:00→18:00)
[2019-03-16] MEDS ORDERED: FUROSEMIDE 40 MG INJ IV ONE (15:00)
[2019-03-16] MEDS ORDERED: DEXTROSE 50% 50 ML SYRINGE IV ONE (15:00)
[2019-03-16] MEDS ORDERED: HYDROCODONE/APAP (10/325) TAB PO ONE (15:30)
--- NOTE | 2019-03-16 17:28 | HP ---
LETI RODRIGUEZ 03/16/19 1725: Date/Time of Note Date/Time of Note DATE: 03/16/19 TIME: 17:15 Assessment/Plan VTE Prophylaxis Pharmacological prophylaxis: NA/contraindicated Pharm contraindication: other Lines/Catheters IV Catheter Type (from Nrs): Saline Lock Assessment/Plan Assessment/Plan -Acute renal failure on chronic kidney disease stage IV, status post cadaveric kidney transplant in [address]. Dr[address] Allen is asked to see patient in nephrology consultation. Will obtain renal ultrasound. -Hyperkalemia, status post Kayexalate -UTI per UA, continue Rocephin -Possible pancreatitis, n.p.o. monitor lipase -Diabetes mellitus type 2 with diabetic neuropathy. Continue Tradjenta, Lantus and NovoLog. -Hypertension. -Anemia -Chronic HCV infection -Rheumatoid arthritis -History of polysubstance and IV drug use Further recommendations based on clinical course. Plan of care discussed with Dr. Maier. Result Diagram: 03/16/19 1329 03/16/19 1324 Results 24hrs Laboratory Tests Test 03/16/19 13:24 03/16/19 13:26 03/16/19 13:29 03/16/19 15:09 Prothrombin Time 12.9 Prothrombin Time 1.0 Ratio INR International 0.96 Normalized Ratio Activated 27.0 Partial Thromboplast Time Sodium Level 142 Potassium Level 5.8 H Chloride Level 115 H Carbon Dioxide Level 14 L Anion Gap 13 Blood Urea Nitrogen 65 H Creatinine 4.87 H Est Glomerular 12 L Filtrat Rate mL/min Glucose Level 163 Calcium Level 9.6 Total Bilirubin 0.4 Direct Bilirubin 0.00 Indirect Bilirubin 0.4 Aspartate Amino 28 Transf (AST/SGOT) Alanine 13 Aminotransferase (AL T/SGPT) Alkaline Phosphatase 116 Troponin I 0.049 B-Type Natriuretic 46644 H Peptide Total Protein 8.5 H Albumin 4.5 Globulin 4.00 H Albumin/Globulin 1.12 Ratio Lipase 337 H Bedside Urine pH 6.0 (LAB) Bedside Urine 3+ H Protein (LAB) Bedside Urine Negative Glucose (UA) Bedside Urine Negative Ketones (LAB) Bedside Urine Blood 1+ H Bedside Urine Negative Nitrite (LAB) Bedside Urine 1+ H Leukocyte Esterase (L White Blood Count 5.0 # Red Blood Count 3.08 L Hemoglobin 9.9 L Hematocrit 31.4 L Mean Corpuscular 101.9 H Volume Mean Corpuscular 32.1 Hemoglobin Mean Corpuscular 31.5 L Hemoglobin Concent Red Cell 14.3 Distribution Width Platelet Count 199 Mean Platelet Volume 10.1 Immature 0.400 Granulocytes % Neutrophils % 74.3 Lymphocytes % 12.9 L Monocytes % 9.0 Eosinophils % 3.0 Basophils % 0.4 Nucleated Red Blood 0.0 Cells % Immature 0.020 Granulocytes # Neutrophils # 3.7 Lymphocytes # 0.6 L Monocytes # 0.5 Eosinophils # 0.2 Basophils # 0.0 Nucleated Red Blood 0.0 Cells # Bedside Glucose 155 Test 03/16/19 15:38 Bedside Glucose 250 H HPI/ROS Admit Date/Time Admit Date/Time Hx of Present Illness The patient is a 58-year-old male known to me from previous admission. Patient has extensive medical history including cadaveric kidney transplant in 2009 with chronic kidney disease stage IV, diabetes, hypertension, chronic HCV infection, 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 Patient presented to the emergency room with complaints of abdominal pain and decreased urinary output over 1 month. Patient noted to have worsening renal failure with hyperkalemia on evaluation in the emergency room. Patient also stated that he cannot stay flat while sleeping and complained of chest pain. Patient is complaining of nausea and nonbloody nonbilious emesis. Patient denies any fever chills. Urinalysis is positive for leukocyte esterase, protein and blood. Patient is started on Rocephin. Patient will be admitted for further evaluation and management. ROS 12 point review of systems negative except for what mentioned in HPI PMH/Family/Social Past Medical History Medical History: diabetes, hypertension, renal disease Medications Current Medications Dextrose (D50w Syringe) ONCE PRN IV DECREASED GLUCOSE; Start 03/16/19 at 15:00; Stop 03/17/19 at 14:59 Coded Allergies: magnesium (Unverified Allergy, Intermediate, 03/16/19) NUMBNESS AND HOT FUSHES Past Surgical History Past Surgical Hx: other (S/p cadaveric kidney plans transplant in 2009) Family History Significant Family History: diabetes, vascular disease Social History Alcohol Use: none Smoking Status: Former smoker Drug Use: other (History of polysubstance and IV drug use in the past) Exam/Review of Systems Vital Signs Vitals Vital Signs Date Temp Pulse Resp B/P (MAP) Pulse Ox O2 O2 Flow FiO2 Time Delivery Rate 03/16/19 95 25 158/104 100 Room Air 16:12 (122) 03/16/19 21 15:00 03/16/19 2 13:13 03/16/19 98.4 12:23 Exam Constitutional: alert, oriented Neck: supple Respiratory: clear to auscultation Cardiovascular: regular rate and rhythm Gastrointestinal: soft, tender Musculoskeletal: nl extremities to inspection Extremities: normal pulses 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: nl mental status LUPE MAIER MD 03/17/19 1408: Assessment/Plan Assessment/Plan Result Diagram: 03/16/19 1329 03/16/19 1324 PMH/Family/Social Past Medical History Coded Allergies: magnesium (Unverified Allergy, Intermediate, 03/16/19) NUMBNESS AND HOT FUSHES LETI RODRIGUEZ March 16, 2019 17:25 LUPE MAIER MD March 17, 2019 14:08
[2019-03-16] MEDS ORDERED: ACETAMINOPHEN 325 MG TAB PO PRN (17:30)
[2019-03-16] MEDS ORDERED: NITROGLYCERIN (SL) 0.4 MG TAB SL PRN (17:30)
[2019-03-16] MEDS ORDERED: NACL 0.9% 3 ML SYG IV SCH (17:30)
[2019-03-16] MEDS ORDERED: BISACODYL (EC) 5 MG TAB PO PRN (17:30)
[2019-03-16] MEDS ORDERED: SODIUM BICARBONATE (IV ADD) 125 MEQ in DEXTROSE 5% 1,000 ML IV SCH (18:00)
[2019-03-16] MEDS ORDERED: GLUCOSE GEL 15 GRAM TUBE PO PRN ×2 (18:00)
[2019-03-16] MEDS ORDERED: GLUCAGON 1 MG INJ IM PRN (18:00)
[2019-03-16] MEDS ORDERED: DEXTROSE 5%-0.45% NACL 1,000 ML IV SCH (18:00)
[2019-03-16] MEDS: INSULIN ASPART [NOVOLOG] 3 ML PEN SC SCH ×2 (18:00→23:22)
[2019-03-16] MEDS ORDERED: GLUCOSE GEL 15 GRAM TUBE BUCCAL PRN (18:00)
[2019-03-16] MEDS: ONDANSETRON 4 MG INJ IV PRN (18:04)
[2019-03-16] MEDS: DOCUSATE SODIUM 100 MG CAP PO SCH (18:04)
--- NOTE | 2019-03-16 18:13 | CONS ---
DATE OF ADMISSION: 03/16/2019 DATE OF CONSULTATION: TYPE OF CONSULTATION: Renal. REASON FOR CONSULTATION: Renal failure. HISTORY OF PRESENTING ILLNESS: This is a 58-year-old male with a past medical history of DDRT in 0 on tacrolimus, mycophenolate, prednisone; rheumatoid arthritis, HCV infection, history of digital r ight 4th toe gangrene, diabetes, CKD IV due to diabetic nephropathy, severe peripheral vascular disea se, multiple digital amputations, hypertension, who presented to [facility] on 03/03. According to patient, the patient had been feeling sick. He has been feeling weak and tired . He has been having some chills. The patient was noted to have some swelling of the lower extremit ies. The patient presented to the emergency room complaining of lower abdominal pain and some decrea sed urine output. As stated, however, told me that his urine output has been good. The patient said that he has been compliant with his transplant medications. On arrival to ED, vital signs showed te mperature 98.4, pulse 82, respirations 18, blood pressure 140/84, saturating 96% on 2 liters. Labs s howed potassium 5.8, BUN of 65, creatinine 4.87, bicarbonate of 14. On last discharge, creatinine wa s 3.25. Baseline is between 3.2 to 3.5. The patient had a white count of 5.0, hemoglobin 9.0, plate let count 199. UA shows positive for leukocyte esterase. He had chest x-ray that showed right lung base opacity representing atelectasis versus pulmonary infiltrate. The patient received Lasix 40, Ka yexalate, albuterol, Humulin insulin 10 units, Everest and Rocephin and was admitted for further manage ment. PAST MEDICAL HISTORY: 1. DDRT in 2009 with history of CKD IV, baseline creatinine of 3.2 to 3.5, following [facility]. 2. Hypertension. 3. Hyperlipidemia. 4. History of sepsis secondary to Staph aureus bacteremia. 5. History of right middle finger cellulitis or gangrene. 6. Right 4th toe gangrene. 7. Peripheral vascular disease. 8. History of Juan esophagus. 9. History of chronic hepatitis C. 10. History of polysubstance use. 11. Diabetes type 2. ALLERGIES: MAGNESIUM. MEDICATIONS TAKING AT HOME: 1. Prograf. 2. Mycophenolate 2 tablets in the morning, 2 in the evening. 3. Prednisone. 4. Lispro. SOCIAL HISTORY: Currently denies any smoking, alcohol or any drug use. REVIEW OF SYSTEMS: The patient is complaining of generalized body ache, muscle ache, some little swe lling, decreased urine output. PHYSICAL EXAMINATION: VITAL SIGNS: Blood pressure 158/104, temperature 98.4, pulse 95, saturation 100% on room air. GENERAL: The patient is awake, alert, oriented, having active chills. HEENT: Pupils are equal, round, reactive to light. NECK: Supple. HEART: Regular rate and rhythm. LUNGS: Decreased breath sounds in the bases. ABDOMEN: Soft, some tenderness present on the lower quadrant. No tenderness at the renal graft site . EXTREMITIES: Some trace edema. LABORATORY DATA: Show BUN of 65, creatinine 4.87, potassium 5.8, bicarbonate of 14, glucose of 133. BNP 18,400. Lipase 337. White count 5.0, hemoglobin 9.9, platelet count 199. UA: Leukocyte shantanu ase. DIAGNOSTIC DATA: Chest x-ray showed possible right lower lobe infiltrate. ASSESSMENT AND PLAN: This is a 58-year-old male presenting with: 1. Abdominal pain with chills. Rule out sepsis could be secondary to urinary tract infection. 2. Hyperkalemia, could be secondary to worsening renal failure. Need to check for Prograf toxicity. 3. The patient also has severe acidosis that could contribute to that. 4. Acute on chronic renal failure. The patient had chronic kidney disease IV in the past with a cre atinine of 3.2 to 3.4. It could be exacerbated by acute hemodynamic changes with sepsis. 5. Elevated lipase. 6. Urinary tract infection. 7. Pneumonia. 8. Anemia. 9. History of hepatitis C. 10. History of donor renal transplantation. PLAN: At this period of time, the patient is admitted to [facility]. The patient will be on gentle IV flu ids. Continue the patient on Prograf. We will also check for Prograf levels. The patient has alrea dy received a cocktail for potassium. We will also give the patient some bicarbonate. We will also check for lactate. The patient should be on IV antibiotics. We will also obtain for stat renal ultr asound. Rest of the treatment will depend of the patient's hospitalization course. Dictated By: HARVINDER KUMAR/NAKIA Conf#: [id number] DID#: [id number] CC: SYLVESTER FINNEGAN MD;*EndCC*
[2019-03-16] MEDS: NA BICARBONATE 8.4% 50 ML SYG IV ONE ×2 (18:50→23:40)
[2019-03-16 20:00] VITALS: BP 111/56; PULSE 83; RESP 20
[2019-03-16 20:26] VITALS: PULSE 81
[2019-03-16 20:32] VITALS: Ht 172.7 cm; Wt 54.1 kg
[2019-03-16] MEDS: TACROLIMUS 1 MG CAP PO SCH (21:12)
[2019-03-16] MEDS: ZOLPIDEM 5 MG TAB PO PRN (22:12)
[2019-03-16] MEDS: morphine 2 MG INJ IV PRN (22:54)
[2019-03-16] MEDS: SODIUM BICARBONATE (IV ADD) 125 MEQ in DEXTROSE 5% 1,000 ML IV SCH (22:58)
[2019-03-16 23:35] VITALS: BP 118/58; PULSE 85; RESP 20
[2019-03-17] VITALS (11 sets, daily range): BP systolic 93–155; BP diastolic 51–63; PULSE 65–87; RESP 16–20
[2019-03-17] MEDS: INSULIN ASPART [NOVOLOG] 3 ML PEN SC SCH ×3 (05:13→17:45)
[2019-03-17] MEDS: PANTOPRAZOLE (EC) 40 MG TAB PO SCH (05:14)
[2019-03-17] MEDS: DOCUSATE SODIUM 100 MG CAP PO SCH ×2 (05:14→20:16)
[2019-03-17] MEDS ORDERED: PANTOPRAZOLE 40 MG INJ IV SCH (06:00)
[2019-03-17] MEDS: morphine 2 MG INJ IV PRN ×4 (06:23→22:44)
[2019-03-17] MEDS: TACROLIMUS 1 MG CAP PO SCH ×2 (09:26→20:17)
[2019-03-17] MEDS: ASPIRIN 81 MG TAB PO SCH (09:27)
[2019-03-17] MEDS: predniSONE 5 MG TAB PO SCH (09:27)
[2019-03-17] MEDS: HYDROCODONE/APAP (5/325) TAB PO PRN (09:27)
--- NOTE | 2019-03-17 12:53 | CONS ---
Assessment/Plan Assessment/Plan Assessment/Plan (Daily) This is a 58-year-old male presenting with: 1. Abdominal pain with chills. Rule out sepsis could be secondary to urinary tract infection. 2. Hyperkalemia, could be secondary to worsening renal failure. Need to check for Prograf toxicity. The patient also has severe acidosis that could contribut e to that. Renal US showed hydronephrosis of tranplant kidney 4. Acute on chronic renal failure. The patient had chronic kidney disease IV in the past with a creatinine of 3.2 to 3.4. It could be exacerbated by acute hemodynamic changes with sepsis. vs hydronephrosis vs ATN vs progression of dise ase, pt has underlying DM nephropathy 5. Elevated lipase. 6. Urinary tract infection. 7. Pneumonia. 8. Anemia. 9. History of hepatitis C. 10. History of donor renal transplantation. plan - iv bicarb gtt - dec prograft 2/1, add mycophenolate and cw prednsione - montior UOP - repeat labs pending - cw prograft 2/2 levels pending, cw pred , will restart myfortic - urology consult - renally dose al meds Consultation Date/Type/Reason Admit Date/Time March 16, 2019 at 14:59 Initial Consult Date Date/Time of Note DATE: 03/17/19 TIME: 12:50 24 HR Interval Summary Free Text/Dictation feels better today says he is making more urine labs are pending since he refused this morning Exam/Review of Systems Exam Vitals Vital Signs Date Temp Pulse Resp B/P (MAP) Pulse Ox O2 O2 Flow FiO2 Time Delivery Rate 03/17/19 98.8 78 18 131/55 91 11:18 (80) 03/17/19 7.0 08:02 03/16/19 Room Air 19:27 03/16/19 21 15:00 Intake and Output 03/16/19 03/16/19 03/17/19 1515:00 23:00 07:00 IntakeIntake Total 200 ml OutputOutput Total 600 ml BalanceBalance -400 ml Exam GENERAL: The patient is awake, alert, oriented, having active chills. HEENT: Pupils are equal, round, reactive to light. NECK: Supple. HEART: Regular rate and rhythm. LUNGS: Decreased breath sounds in the bases. ABDOMEN: Soft, some tenderness present on the lower quadrant. No tenderness at the renal graft site. EXTREMITIES: Some trace edema. Results Result Diagram: 03/16/19 1329 03/16/19 2047 Results 24hrs Laboratory Tests Test 03/16/19 13:24 03/16/19 13:26 03/16/19 13:29 03/16/19 15:09 Prothrombin Time 12.9 Prothrombin Time 1.0 Ratio INR International 0.96 Normalized Ratio Activated 27.0 Partial Thromboplast Time Sodium Level 142 Potassium Level 5.8 H Chloride Level 115 H Carbon Dioxide Level 14 L Anion Gap 13 Blood Urea Nitrogen 65 H Creatinine 4.87 H Est Glomerular 12 L Filtrat Rate mL/min Glucose Level 163 Calcium Level 9.6 Total Bilirubin 0.4 Direct Bilirubin 0.00 Indirect Bilirubin 0.4 Aspartate Amino 28 Transf (AST/SGOT) Alanine 13 Aminotransferase (AL T/SGPT) Alkaline Phosphatase 116 Troponin I 0.049 B-Type Natriuretic 44869 H Peptide Total Protein 8.5 H Albumin 4.5 Globulin 4.00 H Albumin/Globulin 1.12 Ratio Lipase 337 H Bedside Urine pH 6.0 (LAB) Bedside Urine 3+ H Protein (LAB) Bedside Urine Negative Glucose (UA) Bedside Urine Negative Ketones (LAB) Bedside Urine Blood 1+ H Bedside Urine Negative Nitrite (LAB) Bedside Urine 1+ H Leukocyte Esterase (L White Blood Count 5.0 # Red Blood Count 3.08 L Hemoglobin 9.9 L Hematocrit 31.4 L Mean Corpuscular 101.9 H Volume Mean Corpuscular 32.1 Hemoglobin Mean Corpuscular 31.5 L Hemoglobin Concent Red Cell 14.3 Distribution Width Platelet Count 199 Mean Platelet Volume 10.1 Immature 0.400 Granulocytes % Neutrophils % 74.3 Lymphocytes % 12.9 L Monocytes % 9.0 Eosinophils % 3.0 Basophils % 0.4 Nucleated Red Blood 0.0 Cells % Immature 0.020 Granulocytes # Neutrophils # 3.7 Lymphocytes # 0.6 L Monocytes # 0.5 Eosinophils # 0.2 Basophils # 0.0 Nucleated Red Blood 0.0 Cells # Bedside Glucose 155 Test 03/16/19 15:38 03/16/19 18:13 03/16/19 20:47 03/16/19 23:10 Bedside Glucose 250 H 125 188 Potassium Level 5.5 H Lactic Acid Level 1.2 Test 03/17/19 05:12 03/17/19 11:48 03/17/19 11:50 Bedside Glucose 142 154 White Blood Count Pending Red Blood Count Pending Hemoglobin Pending Hematocrit Pending Mean Corpuscular Pending Volume Mean Corpuscular Pending Hemoglobin Mean Corpuscular Pending Hemoglobin Concent Red Cell Pending Distribution Width Platelet Count Pending Mean Platelet Volume Pending Medications Medication Current Medications Dextrose (D50w Syringe) ONCE PRN IV DECREASED GLUCOSE; Start 03/16/19 at 15:00; Stop 03/17/19 at 14:59 Prednisone (Prednisone) 5 mg DAILY PO Last administered on 03/17/19 09:27; Admin Dose 5 MG; Start 03/17/19 at 09:00 Tacrolimus (Prograf) 2 mg Q12 PO Last administered on 03/17/19 09:26; Admin Dose 2 MG; Start 03/16/19 at 21:00 IV Flush (NS 3 ml) 3 ml PER PROTOCOL IV ; Start 03/16/19 at 17:30 Ondansetron HCl (Zofran Inj) 4 mg Q6H PRN IV NAUSEA/VOMITING Last administered on 03/16/19 18:04; Admin Dose 4 MG; Start 03/16/19 at 17:30 Aspirin (Aspirin) 81 mg DAILY PO Last administered on 03/17/19 09:27; Admin Dose 81 MG; Start 03/17/19 at 09:00 Nitroglycerin (Nitroglycerin (Sl Tab) 0.4 Mg) 1 tab Q5M PRN SL .CHEST PAIN; Start 03/16/19 at 17:30 Acetaminophen (Tylenol Tab) 650 mg Q6H PRN PO .PAIN 1-3 OR TEMP; Start 03/16/19 at 17:30 Acetaminophen/ Hydrocodone Bitart ([place] (5/325)) 1 tab Q6H PRN PO .PAIN 4-6 Last administered on 03/17/19 09:27; Admin Dose 1 TAB; Start 03/16/19 at 17:30 Morphine Sulfate (morphine) 2 mg Q4H PRN IV .PAIN 7-10 Last administered on 03/17/19 11:11; Admin Dose 2 MG; Start 03/16/19 at 17:30 Zolpidem Tartrate (Ambien) 5 mg QHS PRN PO .INSOMNIA Last administered on 03/16/19 22:12; Admin Dose 5 MG; Start 03/16/19 at 17:30 Docusate Sodium (Colace) 100 mg Q12H PO Last administered on 03/17/19at 05:14; Admin Dose 100 MG; Start 03/16/19 at 17:30 Bisacodyl (Dulcolax) 5 mg DAILY PRN PO .CONSTIPATION; Start 03/16/19 at 17:30 Insulin Aspart (Novolog Insulin Pen) NOVOLOG *MILD* ALGORITHM Q6 SC ; Start 03/16/19 at 18:00 Miscellaneous Information 1 ea NOTE XX ; Start 03/16/19 at 18:00 Glucose (Glutose) 15 gm Q15M PRN PO DECREASED GLUCOSE; Start 03/16/19 at 18:00 Glucose (Glutose) 22.5 gm Q15M PRN PO DECREASED GLUCOSE; Start 03/16/19 at 18:00 Dextrose (D50w Syringe) 25 ml Q15M PRN IV DECREASED GLUCOSE; Start 03/16/19 at 18:00 Dextrose (D50w Syringe) 50 ml Q15M PRN IV DECREASED GLUCOSE; Start 03/16/19 at 18:00 Glucagon (Glucagen) 1 mg Q15M PRN IM DECREASED GLUCOSE; Start 03/16/19 at 18:00 Glucose (Glutose) 15 gm Q15M PRN BUCCAL DECREASED GLUCOSE; Start 03/16/19 at 18:00 Ceftriaxone Sodium 50 ml @ 100 mls/hr ONCE ONCE IVPB ; Start 03/17/19 at 18:00; Stop 03/17/19 at 18:29 Pantoprazole (Protonix Tab) 40 mg DAILY@06 PO Last administered on 03/17/19at 05:14; Admin Dose 40 MG; Start 03/17/19 at 06:00 Sodium Bicarbonate 125 meq/Dextrose 1,125 ml @ 40 mls/hr Q24H IV Last administered on 03/16/19at 22:58; Admin Dose 40 MLS/HR; Start 03/16/19 at 18:30 HARVINDER BLOOD MD March 17, 2019 12:53
--- NOTE | 2019-03-17 13:22 | PN ---
Date/Time of Note Date/Time of Note DATE: 03/17/19 TIME: 13:17 Assessment/Plan VTE Prophylaxis Risk score (from [facility])>0 risk: 2 SCD applied (from [facility]): Yes Pharmacological prophylaxis: NA/contraindicated Pharm contraindication: anticoag not tolerated Lines/Catheters IV Catheter Type (from [facility]): Mid Line Assessment/Plan Hospital Course Patient complains of chills generalized weakness, currently on a bicarb drip Assessment/Plan -Possible sepsis secondary to possible pneumonia and UTI, follow-up on urine and blood culture, continue Rocephin. Dr. Olmstead is asked to see patient in infection disease consultation. -Acute renal failure on chronic kidney disease stage IV, status post cadaveric kidney transplant [place] [address]. [address] Allen is following in nephrology consultation. Will obtain renal ultrasound. -Hyperkalemia, status post Kayexalate -UTI per UA, continue Rocephin -Moderate hydronephrosis, Dr. Noguera is asked to see patient in urology consultation. -Possible pancreatitis, n.p.o. monitor lipase -Diabetes mellitus type 2 with diabetic neuropathy. Continue Tradjenta, Lantus and NovoLog. -Hypertension. -Anemia -Chronic HCV infection -Rheumatoid arthritis -History of polysubstance and IV drug use Further recommendations based on clinical course. Plan of care discussed with Dr. Maier. Result Diagram: 03/17/19 1148 03/17/19 1148 Results 24hrs Laboratory Tests Test 03/16/19 13:24 03/16/19 13:26 03/16/19 13:29 03/16/19 15:09 Prothrombin Time 12.9 Prothrombin Time 1.0 Ratio INR International 0.96 Normalized Ratio Activated 27.0 Partial Thromboplast Time Sodium Level 142 Potassium Level 5.8 H Chloride Level 115 H Carbon Dioxide Level 14 L Anion Gap 13 Blood Urea Nitrogen 65 H Creatinine 4.87 H Est Glomerular 12 L Filtrat Rate mL/min Glucose Level 163 Calcium Level 9.6 Total Bilirubin 0.4 Direct Bilirubin 0.00 Indirect Bilirubin 0.4 Aspartate Amino 28 Transf (AST/SGOT) Alanine 13 Aminotransferase (AL T/SGPT) Alkaline Phosphatase 116 Troponin I 0.049 B-Type Natriuretic 70611 H Peptide Total Protein 8.5 H Albumin 4.5 Globulin 4.00 H Albumin/Globulin 1.12 Ratio Lipase 337 H Bedside Urine pH 6.0 (LAB) Bedside Urine 3+ H Protein (LAB) Bedside Urine Negative Glucose (UA) Bedside Urine Negative Ketones (LAB) Bedside Urine Blood 1+ H Bedside Urine Negative Nitrite (LAB) Bedside Urine 1+ H Leukocyte Esterase (L White Blood Count 5.0 # Red Blood Count 3.08 L Hemoglobin 9.9 L Hematocrit 31.4 L Mean Corpuscular 101.9 H Volume Mean Corpuscular 32.1 Hemoglobin Mean Corpuscular 31.5 L Hemoglobin Concent Red Cell 14.3 Distribution Width Platelet Count 199 Mean Platelet Volume 10.1 Immature 0.400 Granulocytes % Neutrophils % 74.3 Lymphocytes % 12.9 L Monocytes % 9.0 Eosinophils % 3.0 Basophils % 0.4 Nucleated Red Blood 0.0 Cells % Immature 0.020 Granulocytes # Neutrophils # 3.7 Lymphocytes # 0.6 L Monocytes # 0.5 Eosinophils # 0.2 Basophils # 0.0 Nucleated Red Blood 0.0 Cells # Bedside Glucose 155 Test 03/16/19 15:38 03/16/19 18:13 03/16/19 20:47 03/16/19 23:10 Bedside Glucose 250 H 125 188 Potassium Level 5.5 H Lactic Acid Level 1.2 Test 03/17/19 05:12 03/17/19 11:48 03/17/19 11:50 Bedside Glucose 142 154 White Blood Count 5.0 Red Blood Count 2.28 #L Hemoglobin 7.5 #L Hematocrit 23.3 #L Mean Corpuscular 102.2 H Volume Mean Corpuscular 32.9 Hemoglobin Mean Corpuscular 32.2 Hemoglobin Concent Red Cell 14.4 Distribution Width Platelet Count 157 # Mean Platelet Volume 10.0 Immature 0.600 H Granulocytes % Neutrophils % 86.8 H Lymphocytes % 6.4 L Monocytes % 4.4 Eosinophils % 1.4 Basophils % 0.4 Nucleated Red Blood 0.0 Cells % Immature 0.030 Granulocytes # Neutrophils # 4.4 Lymphocytes # 0.3 L Monocytes # 0.2 L Eosinophils # 0.1 Basophils # 0.0 Nucleated Red Blood 0.0 Cells # Sodium Level 138 Potassium Level 5.6 H Chloride Level 113 H Carbon Dioxide Level 15 L Anion Gap 10 Blood Urea Nitrogen 62 H Creatinine 4.35 H Est Glomerular 14 L Filtrat Rate mL/min Glucose Level 144 Calcium Level 8.8 Magnesium Level 2.3 Total Bilirubin 0.4 Direct Bilirubin 0.00 Indirect Bilirubin 0.4 Aspartate Amino 28 Transf (AST/SGOT) Alanine 17 Aminotransferase (AL T/SGPT) Alkaline Phosphatase 79 Total Protein 6.2 # Albumin 3.3 # Globulin 2.90 Albumin/Globulin 1.13 Ratio Lipase 329 H Exam/Review of Systems Exam Vitals Vital Signs Date Temp Pulse Resp B/P (MAP) Pulse Ox O2 O2 Flow FiO2 Time Delivery Rate 03/17/19 98.8 78 18 131/55 91 11:18 (80) 03/17/19 7.0 08:02 03/16/19 Room Air 19:27 03/16/19 21 15:00 Intake and Output 03/16/19 03/16/19 03/17/19 1515:00 23:00 07:00 IntakeIntake Total 200 ml OutputOutput Total 600 ml BalanceBalance -400 ml Exam Constitutional: alert, oriented Neck: supple Respiratory: clear to auscultation Cardiovascular: regular rate and rhythm Gastrointestinal: soft, tender Musculoskeletal: nl extremities to inspection Extremities: normal pulses 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: nl mental status Results Results 24hrs Laboratory Tests Test 03/16/19 13:24 03/16/19 13:26 03/16/19 13:29 03/16/19 15:09 Prothrombin Time 12.9 Prothrombin Time 1.0 Ratio INR International 0.96 Normalized Ratio Activated 27.0 Partial Thromboplast Time Sodium Level 142 Potassium Level 5.8 H Chloride Level 115 H Carbon Dioxide Level 14 L Anion Gap 13 Blood Urea Nitrogen 65 H Creatinine 4.87 H Est Glomerular 12 L Filtrat Rate mL/min Glucose Level 163 Calcium Level 9.6 Total Bilirubin 0.4 Direct Bilirubin 0.00 Indirect Bilirubin 0.4 Aspartate Amino 28 Transf (AST/SGOT) Alanine 13 Aminotransferase (AL T/SGPT) Alkaline Phosphatase 116 Troponin I 0.049 B-Type Natriuretic 36255 H Peptide Total Protein 8.5 H Albumin 4.5 Globulin 4.00 H Albumin/Globulin 1.12 Ratio Lipase 337 H Bedside Urine pH 6.0 (LAB) Bedside Urine 3+ H Protein (LAB) Bedside Urine Negative Glucose (UA) Bedside Urine Negative Ketones (LAB) Bedside Urine Blood 1+ H Bedside Urine Negative Nitrite (LAB) Bedside Urine 1+ H Leukocyte Esterase (L White Blood Count 5.0 # Red Blood Count 3.08 L Hemoglobin 9.9 L Hematocrit 31.4 L Mean Corpuscular 101.9 H Volume Mean Corpuscular 32.1 Hemoglobin Mean Corpuscular 31.5 L Hemoglobin Concent Red Cell 14.3 Distribution Width Platelet Count 199 Mean Platelet Volume 10.1 Immature 0.400 Granulocytes % Neutrophils % 74.3 Lymphocytes % 12.9 L Monocytes % 9.0 Eosinophils % 3.0 Basophils % 0.4 Nucleated Red Blood 0.0 Cells % Immature 0.020 Granulocytes # Neutrophils # 3.7 Lymphocytes # 0.6 L Monocytes # 0.5 Eosinophils # 0.2 Basophils # 0.0 Nucleated Red Blood 0.0 Cells # Bedside Glucose 155 Test 03/16/19 15:38 03/16/19 18:13 03/16/19 20:47 03/16/19 23:10 Bedside Glucose 250 H 125 188 Potassium Level 5.5 H Lactic Acid Level 1.2 Test 03/17/19 05:12 03/17/19 11:48 03/17/19 11:50 Bedside Glucose 142 154 White Blood Count 5.0 Red Blood Count 2.28 #L Hemoglobin 7.5 #L Hematocrit 23.3 #L Mean Corpuscular 102.2 H Volume Mean Corpuscular 32.9 Hemoglobin Mean Corpuscular 32.2 Hemoglobin Concent Red Cell 14.4 Distribution Width Platelet Count 157 # Mean Platelet Volume 10.0 Immature 0.600 H Granulocytes % Neutrophils % 86.8 H Lymphocytes % 6.4 L Monocytes % 4.4 Eosinophils % 1.4 Basophils % 0.4 Nucleated Red Blood 0.0 Cells % Immature 0.030 Granulocytes # Neutrophils # 4.4 Lymphocytes # 0.3 L Monocytes # 0.2 L Eosinophils # 0.1 Basophils # 0.0 Nucleated Red Blood 0.0 Cells # Sodium Level 138 Potassium Level 5.6 H Chloride Level 113 H Carbon Dioxide Level 15 L Anion Gap 10 Blood Urea Nitrogen 62 H Creatinine 4.35 H Est Glomerular 14 L Filtrat Rate mL/min Glucose Level 144 Calcium Level 8.8 Magnesium Level 2.3 Total Bilirubin 0.4 Direct Bilirubin 0.00 Indirect Bilirubin 0.4 Aspartate Amino 28 Transf (AST/SGOT) Alanine 17 Aminotransferase (AL T/SGPT) Alkaline Phosphatase 79 Total Protein 6.2 # Albumin 3.3 # Globulin 2.90 Albumin/Globulin 1.13 Ratio Lipase 329 H Medications Medication Current Medications Dextrose (D50w Syringe) ONCE PRN IV DECREASED GLUCOSE; Start 03/16/19 at 15:00; Stop 03/17/19 at 14:59 Prednisone (Prednisone) 5 mg DAILY PO Last administered on 03/17/19 09:27; Admin Dose 5 MG; Start 03/17/19 at 09:00 IV Flush (NS 3 ml) 3 ml PER PROTOCOL IV ; Start 03/16/19 at 17:30 Ondansetron HCl (Zofran Inj) 4 mg Q6H PRN IV NAUSEA/VOMITING Last administered on 03/16/19at 18:04; Admin Dose 4 MG; Start 03/16/19 at 17:30 Aspirin (Aspirin) 81 mg DAILY PO Last administered on 03/17/19 09:27; Admin Dose 81 MG; Start 03/17/19 at 09:00 Nitroglycerin (Nitroglycerin (Sl Tab) 0.4 Mg) 1 tab Q5M PRN SL .CHEST PAIN; Start 03/16/19 at 17:30 Acetaminophen (Tylenol Tab) 650 mg Q6H PRN PO .PAIN 1-3 OR TEMP; Start 03/16/19 at 17:30 Acetaminophen/ Hydrocodone Bitart ([place] (5/325)) 1 tab Q6H PRN PO .PAIN 4-6 Last administered on 03/17/19 09:27; Admin Dose 1 TAB; Start 03/16/19 at 17:30 Morphine Sulfate (morphine) 2 mg Q4H PRN IV .PAIN 7-10 Last administered on 03/17/19at 11:11; Admin Dose 2 MG; Start 03/16/19 at 17:30 Zolpidem Tartrate (Ambien) 5 mg QHS PRN PO .INSOMNIA Last administered on 03/16/19at 22:12; Admin Dose 5 MG; Start 03/16/19 at 17:30 Docusate Sodium (Colace) 100 mg Q12H PO Last administered on 03/17/19at 05:14; Admin Dose 100 MG; Start 03/16/19 at 17:30 Bisacodyl (Dulcolax) 5 mg DAILY PRN PO .CONSTIPATION; Start 03/16/19 at 17:30 Insulin Aspart (Novolog Insulin Pen) NOVOLOG *MILD* ALGORITHM Q6 SC ; Start 03/16/19 at 18:00 Miscellaneous Information 1 ea NOTE XX ; Start 03/16/19 at 18:00 Glucose (Glutose) 15 gm Q15M PRN PO DECREASED GLUCOSE; Start 03/16/19 at 18:00 Glucose (Glutose) 22.5 gm Q15M PRN PO DECREASED GLUCOSE; Start 03/16/19 at 18:00 Dextrose (D50w Syringe) 25 ml Q15M PRN IV DECREASED GLUCOSE; Start 03/16/19 at 18:00 Dextrose (D50w Syringe) 50 ml Q15M PRN IV DECREASED GLUCOSE; Start 03/16/19 at 18:00 Glucagon (Glucagen) 1 mg Q15M PRN IM DECREASED GLUCOSE; Start 03/16/19 at 18:00 Glucose (Glutose) 15 gm Q15M PRN BUCCAL DECREASED GLUCOSE; Start 03/16/19 at 18:00 Ceftriaxone Sodium 50 ml @ 100 mls/hr ONCE ONCE IVPB ; Start 03/17/19 at 18:00; Stop 03/17/19 at 18:29 Pantoprazole (Protonix Tab) 40 mg DAILY@06 PO Last administered on 03/17/19at 05:14; Admin Dose 40 MG; Start 03/17/19 at 06:00 Sodium Bicarbonate 125 meq/Dextrose 1,125 ml @ 40 mls/hr Q24H IV Last administered on 03/16/19at 22:58; Admin Dose 40 MLS/HR; Start 03/16/19 at 18:30 Tacrolimus (Prograf) 2 mg AM PO ; Start 03/18/19 at 09:00 Tacrolimus (Prograf) 1 mg HS PO ; Start 03/17/19 at 21:00 Mycophenolate Sodium (Myfortic) 180 mg Q12 PO ; Start 03/17/19 at 21:00 LETI RODRIGUEZ March 17, 2019 13:22
--- NOTE | 2019-03-17 15:08 | CONS ---
Assessment/Plan Assessment/Plan Hospital Course (Demo Recall) asked to consult. will be in shortly. ty Consultation Date/Type/Reason Admit Date/Time March 17, 2019 at 13:23 Initial Consult Date Date/Time of Note DATE: 03/17/19 TIME: 15:07 Exam/Review of Systems Exam Vitals Vital Signs Date Temp Pulse Resp B/P (MAP) Pulse Ox O2 O2 Flow FiO2 Time Delivery Rate 03/17/19 77 14:15 03/17/19 98.8 18 131/55 91 11:18 (80) 03/17/19 7.0 08:02 03/16/19 Room Air 19:27 03/16/19 21 15:00 Intake and Output 03/16/19 03/16/19 03/17/19 1515:00 23:00 07:00 IntakeIntake Total 200 ml OutputOutput Total 600 ml BalanceBalance -400 ml Results Result Diagram: 03/17/19 1148 03/17/19 1148 Results 24hrs Laboratory Tests Test 03/16/19 15:09 03/16/19 15:38 03/16/19 18:13 03/16/19 20:47 Bedside Glucose 155 250 H 125 Potassium Level 5.5 H Lactic Acid Level 1.2 Test 03/16/19 23:10 03/17/19 05:12 03/17/19 11:48 03/17/19 11:50 Bedside Glucose 188 142 154 White Blood Count 5.0 Red Blood Count 2.28 #L Hemoglobin 7.5 #L Hematocrit 23.3 #L Mean Corpuscular 102.2 H Volume Mean Corpuscular 32.9 Hemoglobin Mean Corpuscular 32.2 Hemoglobin Concent Red Cell 14.4 Distribution Width Platelet Count 157 # Mean Platelet Volume 10.0 Immature 0.600 H Granulocytes % Neutrophils % 86.8 H Lymphocytes % 6.4 L Monocytes % 4.4 Eosinophils % 1.4 Basophils % 0.4 Nucleated Red Blood 0.0 Cells % Immature 0.030 Granulocytes # Neutrophils # 4.4 Lymphocytes # 0.3 L Monocytes # 0.2 L Eosinophils # 0.1 Basophils # 0.0 Nucleated Red Blood 0.0 Cells # Sodium Level 138 Potassium Level 5.6 H Chloride Level 113 H Carbon Dioxide Level 15 L Anion Gap 10 Blood Urea Nitrogen 62 H Creatinine 4.35 H Est Glomerular 14 L Filtrat Rate mL/min Glucose Level 144 Hemoglobin A1c 6.2 H Calcium Level 8.8 Magnesium Level 2.3 Total Bilirubin 0.4 Direct Bilirubin 0.00 Indirect Bilirubin 0.4 Aspartate Amino 28 Transf (AST/SGOT) Alanine 17 Aminotransferase (AL T/SGPT) Alkaline Phosphatase 79 Total Protein 6.2 # Albumin 3.3 # Globulin 2.90 Albumin/Globulin 1.13 Ratio Lipase 329 H Medications Medication Current Medications Prednisone (Prednisone) 5 mg DAILY PO Last administered on 03/17/19 09:27; Admin Dose 5 MG; Start 03/17/19 at 09:00 IV Flush (NS 3 ml) 3 ml PER PROTOCOL IV ; Start 03/16/19 at 17:30 Ondansetron HCl (Zofran Inj) 4 mg Q6H PRN IV NAUSEA/VOMITING Last administered on 03/16/19 18:04; Admin Dose 4 MG; Start 03/16/19 at 17:30 Aspirin (Aspirin) 81 mg DAILY PO Last administered on 03/17/19 09:27; Admin Dose 81 MG; Start 03/17/19 at 09:00 Nitroglycerin (Nitroglycerin (Sl Tab) 0.4 Mg) 1 tab Q5M PRN SL .CHEST PAIN; Start 03/16/19 at 17:30 Acetaminophen (Tylenol Tab) 650 mg Q6H PRN PO .PAIN 1-3 OR TEMP; Start 03/16/19 at 17:30 Acetaminophen/ Hydrocodone Bitart ([place] (5/325)) 1 tab Q6H PRN PO .PAIN 4-6 L ast administered on 03/17/19 09:27; Admin Dose 1 TAB; Start 03/16/19 at 17:30 Morphine Sulfate (morphine) 2 mg Q4H PRN IV .PAIN 7-10 Last administered on 03/17/19 11:11; Admin Dose 2 MG; Start 03/16/19 at 17:30 Zolpidem Tartrate (Ambien) 5 mg QHS PRN PO .INSOMNIA Last administered on 03/16/19 22:12; Admin Dose 5 MG; Start 03/16/19 at 17:30 Docusate Sodium (Colace) 100 mg Q12H PO Last administered on 03/17/19 05:14; Admin Dose 100 MG; Start 03/16/19 at 17:30 Bisacodyl (Dulcolax) 5 mg DAILY PRN PO .CONSTIPATION; Start 03/16/19 at 17:30 Insulin Aspart (Novolog Insulin Pen) NOVOLOG *MILD* ALGORITHM Q6 SC ; Start 03/16/19 at 18:00 Miscellaneous Information 1 ea NOTE XX ; Start 03/16/19 at 18:00 Glucose (Glutose) 15 gm Q15M PRN PO DECREASED GLUCOSE; Start 03/16/19 at 18:00 Glucose (Glutose) 22.5 gm Q15M PRN PO DECREASED GLUCOSE; Start 03/16/19 at 18:00 Dextrose (D50w Syringe) 25 ml Q15M PRN IV DECREASED GLUCOSE; Start 03/16/19 at 18:00 Dextrose (D50w Syringe) 50 ml Q15M PRN IV DECREASED GLUCOSE; Start 03/16/19 at 18:00 Glucagon (Glucagen) 1 mg Q15M PRN IM DECREASED GLUCOSE; Start 03/16/19 at 18:00 Glucose (Glutose) 15 gm Q15M PRN BUCCAL DECREASED GLUCOSE; Start 03/16/19 at 18:00 Ceftriaxone Sodium 50 ml @ 100 mls/hr ONCE ONCE IVPB ; Start 03/17/19 at 18:00; Stop 03/17/19 at 18:29 Pantoprazole (Protonix Tab) 40 mg DAILY@06 PO Last administered on 03/17/19at 05:14; Admin Dose 40 MG; Start 03/17/19 at 06:00 Sodium Bicarbonate 125 meq/Dextrose 1,125 ml @ 40 mls/hr Q24H IV Last administered on 03/16/19at 22:58; Admin Dose 40 MLS/HR; Start 03/16/19 at 18:30 Tacrolimus (Prograf) 2 mg AM PO ; Start 03/18/19 at 09:00 Tacrolimus (Prograf) 1 mg HS PO ; Start 03/17/19 at 21:00 Mycophenolate Sodium (Myfortic) 180 mg Q12 PO ; Start 03/17/19 at 21:00 Patiromer ([place]) 16.8 gm ONCE PO ; Start 03/17/19 at 15:30; Stop 03/17/19 at 19:00 PARAMJIT COTTRELL MD March 17, 2019 15:08
[2019-03-17] MEDS ORDERED: PATIROMER CALCIUM SORBITEX 16.8 GM PKT PO SCH (15:30)
[2019-03-17] MEDS ORDERED: SODIUM POLYSTYRENE 15 GM KIT (POWDER + SORBITOL) PR ONE (16:30)
--- NOTE | 2019-03-17 17:00 | CONS ---
Assessment/Plan Assessment/Plan Hospital Course (Demo Recall) 1. ARF 2. SOB w/u in progress 3. Possible uti but seems less likely PMH as of last admit: - Anasarca, improved with IV Lasix - Endocarditis - Dr. Olmstead rec'd call from [facility] 01/15/19 regarding this and plan was to complete cefazolin through 01.29.19 - Completing Augmentin for progressive swelling of distal aspect of right ring finger with x-ray showing further of erosion and lucency involving the distal aspect of the distal phalanx of the right ring finger suspicious for osteomyelitis with improved but slight associated soft tissue swelling. ESR 67. - Hx OM of R 4th digit: swelling with new erosive changes and osteopenia of the underlying R 4th distal phalanx, suggestive of osteomyelitis; wound culture grew Serratia on 03/18/18 and Serratia + CoNS (likely colonizer) on 04/04/18 ; Pt declined amputation. ESR 39 on 03/18/2018. S/p Levaquin x 6 weeks, ESR 60 01/13/19 - Hematoma within the right lateral abdominal wall musculature which has developed since the previous study done 12/13/2018 measuring 7.3 x 4.6 cm in cross diameter and extending an acrylic that dimension approximately 10.7 cm from the level of the superior pole of the [place] right kidney to just inferior to the right iliac crest per CT 01/12/19 - Calcification of the vas deferens with a persistent hydrocele within the scrotum per CT 01/12/19 - Bacteremia d/t MSSA 12/09/2018, repeat blood cx 12/12/18 NGTD - MRSA and K. pneumoniae in urine cx 12/09/2018 - UA was neg for pyuria - Hx mild subtle increased activity within the upper aspect of LUE, nonspecific, on WBC tagged scan on 04/05/2018 - Hx OM of R 3rd fingertip (XR showed periosteal reaction at the tip of R 3rd distal phalanx, suspicious for OM, MRI showed cellulitis of distal R 4th phalanx, without OM) and L 2nd fingertip (XR showed cortical irregularity at the tuft of L 2nd distal phalanx with overlying soft tissue defect, suggesting early OM, MRI showed OM at L 2nd distal phalanx with, cellulitis about L 2nd distal phalanx without drainable fluid collection.) - Hx OM of R 2nd finger s/p amputation at proximal phalanx neck, and h/o OM of L 3rd finger s/p amputation at middle and distal phalanges - Acute on chronic renal failure - Hyperkalemia with metabolic acidosis - slowly improving with sodium bicarb - Hx ESRD, was on HD - S/p renal transplant in 2009 (on tacrolimus, mycophenolate and prednisone), chronic renal insufficiency at baseline - DM - Hgb A1c 10.5% - Hx Juan's esophagus and gastritis s/p EGD on 08/12/2017. No H. pylori on Bx - BLE atherosclerosis - Seen by Vascular Surgery during last admit - Onychomycosis, tinea pedis - Seen by [facility] during last admit - Rheumatoid arthritis - Chronic HCV infection - HTN - Dyslipidemia - Hx polysubstance and IV drug use. 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 psychosis - on Lexapro - Abdominal distention and pain R: procalc bcxs sputum cx serial cxr ok to cont. ctx for now but anticpate short course will continue to follow closely with you Consultation Date/Type/Reason Admit Date/Time March 17, 2019 at 13:23 Date of Consultation: March 17, 2019 Type of Consult ID Reason for Consultation PNA Requesting Provider: LUPE KAPLAN MD Date/Time of Note DATE: 03/17/19 TIME: 16:47 Hx of Present Illness This is an unfortunate 58 yo male with pmh of chronic kidney disease, s/p cadaveric renal tx, progressive renal failure over last 2-3 years, hx of MSSA endocarditis s/p course of abx culminating last month, several episodes of cellulitis and necrotizing infection of digits s/p courses of abx, now admitted with progressive sob. He is noted to have probable pulm edema on xray. He has been seen by nephrology. He currently is on CTX " Im sick" Constitutional: No no complaints, No improved, No chills, No diaphoresis, No disoriented, No febrile, No poor po, No requiring IVF, No requiring O2, No other Eyes: No no complaints, No pain, No discharge, No redness, No visual change, No other ENT: No no complaints, No bleeding, No pain, No congestion, No discharge, No dysphagia, No sore throat, No other Respiratory: shortness of breath Cardiovascular: No no complaints, No chest pain, No edema, No lightheadedness, No orthopenea, No palpitations, No paroxysmal nocturnal dyspnea, No other Gastrointestinal: No no complaints, No pain, No blood, No constipation, No dec reased appetite, No diarrhea, No flatus, No nausea, No passing stool, No vomiting, No other Genitourinary: No no complaints, No bleeding, No dysuria, No discharge, No flank pain, No hematuria, No other Musculoskeletal: No no complaints, No back pain, No bone/joint pain, No neck pain, No restricted range of motion, No swelling, No other Skin: skin lesions Neurologic: No no complaints, No confusion, No dizziness, No focal-weakness, No headache, No syncope, No seizure, No other Endocrine: No no complaints, No polyuria, No polydypsia, No dry skin, No temp intolerance, No other Lymphatic: No no complaints, No adenopathy, No tender nodes, No lymphadema, No other Psychological: No no complaints, No nl mood/affect, No anxiety, No confusion, No depression, No suicidal, No other Immunologic: No no complaints, No immunodeficiency, No pruritis, No rhinitis, No urticaria, No other Past Medical History Medical History: diabetes, hypertension, renal disease Home Meds Active Scripts Tacrolimus* (Prograf*) 1 Mg Capsule, 2 MG PO Q12 for 30 Days, CAP Prov:LETI RODRIGUEZ 01/19/19 Reported Medications Insulin Lispro (Humalog) 100 Unit/1 Ml Cartridge, 0 SQ SLIDING SCALE, EA 2-10 UNITS 03/16/19 Mycophenolate Sodium* (Mycophenolic Acid*) 180 Mg Tablet.dr, 180 MG PO Q12, TAB 03/16/19 Prednisone* (Prednisone*) 5 Mg Tab, 5 MG PO DAILY, TAB 12/09/18 Discontinued Reported Medications Insulin Lispro (Humalog) 100 Unit/1 Ml Cartridge, 2-10 UNITS SQ SLIDING SCALE, EA INSURANECE NOT COVERED THIS INSULIN 09/23/18 Discontinued Scripts Pantoprazole* (Pantoprazole*) 40 Mg Tablet.dr, 40 MG PO DAILY@06 for 30 Days Prov:LETI RODRIGUEZ 01/19/19 Ondansetron Hcl* (Zofran*) 4 Mg Tab, 4 MG PO Q4H PRN for NAUSEA AND OR VOMITING, #30 TAB Prov:JENNIFERLETI 01/19/19 Furosemide* (Furosemide*) 40 Mg Tablet, 40 MG PO DAILY for 30 Days, TAB Prov:JUAN MANUELMILLILETI 01/19/19 Escitalopram Oxalate* (Escitalopram Oxalate*) 10 Mg Tablet, 10 MG PO DAILY for 30 Days, TAB Prov:KENDRICK RODRIGUEZETLANA 01/19/19 Hydralazine Hcl* (Hydralazine Hcl*) 25 Mg Tab, 50 MG PO Q12 for 30 Days, TAB Prov:LETI RODRIGUEZ 01/19/19 Cefazolin Sodium in 0.9 % NaCl (Cefazolin 2 G/100 ml-0.9% NaCl) 2 Gm/100 Ml Plast..bag, 1 GM IV Q12 for 10 Days Prov:LETI RODRIGUEZ 01/19/19 Sitagliptin* (Januvia*) 50 Mg Tablet, 50 MG PO DAILY, #30 TAB Prov:JENNIFERLETI 01/19/19 Medications Current Medications Prednisone (Prednisone) 5 mg DAILY PO Last administered on 03/17/19at 09:27; Admin Dose 5 MG; Start 03/17/19 at 09:00 IV Flush (NS 3 ml) 3 ml PER PROTOCOL IV ; Start 03/16/19 at 17:30 Ondansetron HCl (Zofran Inj) 4 mg Q6H PRN IV NAUSEA/VOMITING Last administered on 03/16/19at 18:04; Admin Dose 4 MG; Start 03/16/19 at 17:30 Aspirin (Aspirin) 81 mg DAILY PO Last administered on 03/17/19at 09:27; Admin Dose 81 MG; Start 03/17/19 at 09:00 Nitroglycerin (Nitroglycerin (Sl Tab) 0.4 Mg) 1 tab Q5M PRN SL .CHEST PAIN; Start 03/16/19 at 17:30 Acetaminophen (Tylenol Tab) 650 mg Q6H PRN PO .PAIN 1-3 OR TEMP; Start 03/16/19 at 17:30 Acetaminophen/ Hydrocodone Bitart ([place] (5/325)) 1 tab Q6H PRN PO .PAIN 4-6 Last administered on 03/17/19at 09:27; Admin Dose 1 TAB; Start 03/16/19 at 17:30 Morphine Sulfate (morphine) 2 mg Q4H PRN IV .PAIN 7-10 Last administered on 03/17/19at 11:11; Admin Dose 2 MG; Start 03/16/19 at 17:30 Zolpidem Tartrate (Ambien) 5 mg QHS PRN PO .INSOMNIA Last administered on at 22:12; Admin Dose 5 MG; Start 03/16/19 at 17:30 Docusate Sodium (Colace) 100 mg Q12H PO Last administered on 03/17/19at 05:14; Admin Dose 100 MG; Start 03/16/19 at 17:30 Bisacodyl (Dulcolax) 5 mg DAILY PRN PO .CONSTIPATION; Start 03/16/19 at 17:30 Insulin Aspart (Novolog Insulin Pen) NOVOLOG *MILD* ALGORITHM Q6 SC ; Start 03/16/19 at 18:00 Miscellaneous Information 1 ea NOTE XX ; Start 03/16/19 at 18:00 Glucose (Glutose) 15 gm Q15M PRN PO DECREASED GLUCOSE; Start 03/16/19 at 18:00 Glucose (Glutose) 22.5 gm Q15M PRN PO DECREASED GLUCOSE; Start 03/16/19 at 18:00 Dextrose (D50w Syringe) 25 ml Q15M PRN IV DECREASED GLUCOSE; Start 03/16/19 at 18:00 Dextrose (D50w Syringe) 50 ml Q15M PRN IV DECREASED GLUCOSE; Start 03/16/19 at 18:00 Glucagon (Glucagen) 1 mg Q15M PRN IM DECREASED GLUCOSE; Start 03/16/19 at 18:00 Glucose (Glutose) 15 gm Q15M PRN BUCCAL DECREASED GLUCOSE; Start 03/16/19 at 18:00 Ceftriaxone Sodium 50 ml @ 100 mls/hr ONCE ONCE IVPB ; Start 03/17/19 at 18:00; Stop 03/17/19 at 18:29 Pantoprazole (Protonix Tab) 40 mg DAILY@06 PO Last administered on 03/17/19at 05:14; Admin Dose 40 MG; Start 03/17/19 at 06:00 Sodium Bicarbonate 125 meq/Dextrose 1,125 ml @ 40 mls/hr Q24H IV Last administered on 03/16/19at 22:58; Admin Dose 40 MLS/HR; Start 03/16/19 at 18:30 Tacrolimus (Prograf) 2 mg AM PO ; Start 03/18/19 at 09:00 Tacrolimus (Prograf) 1 mg HS PO ; Start 03/17/19 at 21:00 Mycophenolate Sodium (Myfortic) 180 mg Q12 PO ; Start 03/17/19 at 21:00 Patiromer (Veltassa) 16.8 gm ONCE PO ; Start 03/17/19 at 15:30; Stop 03/17/19 at 19:00 Allergies: Coded Allergies: magnesium (Unverified Allergy, Intermediate, 03/16/19) NUMBNESS AND HOT FUSHES Past Surgical History Past Surgical Hx: other (S/p cadaveric kidney plans transplant in 2009) Social History Alcohol Use: none Smoking Status: Never smoker Drug Use: other (History of polysubstance and IV drug use in the past) Exam/Review of Systems Exam Vitals Vital Signs Date Temp Pulse Resp B/P (MAP) Pulse Ox O2 O2 Flow FiO2 Time Delivery Rate 03/17/19 65 16:23 03/17/19 98.6 18 155/63 92 15:22 (93) 03/17/19 7.0 08:02 03/16/19 Room Air 19:27 03/16/19 21 15:00 Intake and Output 03/16/19 03/16/19 03/17/19 1515:00 23:00 07:00 IntakeIntake Total 200 ml OutputOutput Total 600 ml BalanceBalance -400 ml Constitutional: alert, oriented, well developed Psych: no complaints, nl mood/affect Head: normocephalic, atraumatic Eyes: nl conjunctiva, EOMI, nl lids, nl sclera, PERRL ENMT: nl external ears & nose, nl lips & teeth, nl nasal mucosa & septum Respiratory: clear to auscultation, normal air movement Cardiovascular: regular rate and rhythm, nl pulses Gastrointestinal: soft, nl liver, spleen, non-tender Musculoskeletal: nl extremities to inspection, nl gait and stance 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: [employer]ESSION[employer] II-XII intact, nl mental status, nl speech, nl strength Skin: other (wound on finger appears healed) Results Result Diagram: 03/17/19 1148 03/17/19 1148 Results 24hrs Laboratory Tests Test 03/16/19 18:13 03/16/19 20:47 03/16/19 23:10 03/17/19 05:12 Bedside Glucose 125 188 142 Potassium Level 5.5 H Lactic Acid Level 1.2 Test 03/17/19 11:48 03/17/19 11:50 White Blood Count 5.0 Red Blood Count 2.28 #L Hemoglobin 7.5 #L Hematocrit 23.3 #L Mean Corpuscular 102.2 H Volume Mean Corpuscular 32.9 Hemoglobin Mean Corpuscular 32.2 Hemoglobin Concent Red Cell 14.4 Distribution Width Platelet Count 157 # Mean Platelet Volume 10.0 Immature 0.600 H Granulocytes % Neutrophils % 86.8 H Lymphocytes % 6.4 L Monocytes % 4.4 Eosinophils % 1.4 Basophils % 0.4 Nucleated Red Blood 0.0 Cells % Immature 0.030 Granulocytes # Neutrophils # 4.4 Lymphocytes # 0.3 L Monocytes # 0.2 L Eosinophils # 0.1 Basophils # 0.0 Nucleated Red Blood 0.0 Cells # Sodium Level 138 Potassium Level 5.6 H Chloride Level 113 H Carbon Dioxide Level 15 L Anion Gap 10 Blood Urea Nitrogen 62 H Creatinine 4.35 H Est Glomerular 14 L Filtrat Rate mL/min Glucose Level 144 Hemoglobin A1c 6.2 H Calcium Level 8.8 Magnesium Level 2.3 Total Bilirubin 0.4 Direct Bilirubin 0.00 Indirect Bilirubin 0.4 Aspartate Amino 28 Transf (AST/SGOT) Alanine 17 Aminotransferase (AL T/SGPT) Alkaline Phosphatase 79 Total Protein 6.2 # Albumin 3.3 # Globulin 2.90 Albumin/Globulin 1.13 Ratio Lipase 329 H Bedside Glucose 154 Medications Medication Current Medications Prednisone (Prednisone) 5 mg DAILY PO Last administered on 03/17/19at 09:27; Admin Dose 5 MG; Start 03/17/19 at 09:00 IV Flush (NS 3 ml) 3 ml PER PROTOCOL IV ; Start 03/16/19 at 17:30 Ondansetron HCl (Zofran Inj) 4 mg Q6H PRN IV NAUSEA/VOMITING Last administered on 03/16/19at 18:04; Admin Dose 4 MG; Start 03/16/19 at 17:30 Aspirin (Aspirin) 81 mg DAILY PO Last administered on 03/17/19at 09:27; Admin Dose 81 MG; Start 03/17/19 at 09:00 Nitroglycerin (Nitroglycerin (Sl Tab) 0.4 Mg) 1 tab Q5M PRN SL .CHEST PAIN; Start 03/16/19 at 17:30 Acetaminophen (Tylenol Tab) 650 mg Q6H PRN PO .PAIN 1-3 OR TEMP; Start 03/16/19 at 17:30 Acetaminophen/ Hydrocodone Bitart ([place] (5/325)) 1 tab Q6H PRN PO .PAIN 4-6 Last administered on 03/17/19at 09:27; Admin Dose 1 TAB; Start 03/16/19 at 17:30 Morphine Sulfate (morphine) 2 mg Q4H PRN IV .PAIN 7-10 Last administered on 03/17/19at 11:11; Admin Dose 2 MG; Start 03/16/19 at 17:30 Zolpidem Tartrate (Ambien) 5 mg QHS PRN PO .INSOMNIA Last administered on 03/16/19at 22:12; Admin Dose 5 MG; Start 03/16/19 at 17:30 Docusate Sodium (Colace) 100 mg Q12H PO Last administered on 03/17/19at 05:14; Admin Dose 100 MG; Start 03/16/19 at 17:30 Bisacodyl (Dulcolax) 5 mg DAILY PRN PO .CONSTIPATION; Start 03/16/19 at 17:30 Insulin Aspart (Novolog Insulin Pen) NOVOLOG *MILD* ALGORITHM Q6 SC ; Start 03/16/19 at 18:00 Miscellaneous Information 1 ea NOTE XX ; Start 03/16/19 at 18:00 Glucose (Glutose) 15 gm Q15M PRN PO DECREASED GLUCOSE; Start 03/16/19 at 18:00 Glucose (Glutose) 22.5 gm Q15M PRN PO DECREASED GLUCOSE; Start 03/16/19 at 18:00 Dextrose (D50w Syringe) 25 ml Q15M PRN IV DECREASED GLUCOSE; Start 03/16/19 at 18:00 Dextrose (D50w Syringe) 50 ml Q15M PRN IV DECREASED GLUCOSE; Start 03/16/19 at 18:00 Glucagon (Glucagen) 1 mg Q15M PRN IM DECREASED GLUCOSE; Start 03/16/19 at 18:00 Glucose (Glutose) 15 gm Q15M PRN BUCCAL DECREASED GLUCOSE; Start 03/16/19 at 18:00 Ceftriaxone Sodium 50 ml @ 100 mls/hr ONCE ONCE IVPB ; Start 03/17/19 at 18:00; Stop 03/17/19 at 18:29 Pantoprazole (Protonix Tab) 40 mg DAILY@06 PO Last administered on 03/17/19at 05:14; Admin Dose 40 MG; Start 03/17/19 at 06:00 Sodium Bicarbonate 125 meq/Dextrose 1,125 ml @ 40 mls/hr Q24H IV Last admi nistered on 03/16/19at 22:58; Admin Dose 40 MLS/HR; Start 03/16/19 at 18:30 Tacrolimus (Prograf) 2 mg AM PO ; Start 03/18/19 at 09:00 Tacrolimus (Prograf) 1 mg HS PO ; Start 03/17/19 at 21:00 Mycophenolate Sodium (Myfortic) 180 mg Q12 PO ; Start 03/17/19 at 21:00 Patiromer (Veltassa) 16.8 gm ONCE PO ; Start 03/17/19 at 15:30; Stop 03/17/19 at 19:00 PARAMJIT OLMSTEAD MD March 17, 2019 16:58
--- NOTE | 2019-03-17 17:36 | CONS ---
Assessment/Plan Assessment/Plan Hospital Course (Demo Recall) 58-year-old female is known to have a l history of cadaveric kidney transplant in 2010 with chronic kidney disease stage IV, diabetes, hypertension, chronic HCV infection, 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 Patient presented to the emergency room with co mplaints of abdominal pain and decreased urinary output over 1 month. Patient noted to have worsening renal failure with hyperkalemia on evaluation in the emergency room. Patient also stated that he cannot stay flat while sleeping and complained of chest pain. Patient is complaining of nausea and nonbloody nonbilious emesis. Patient had renal ultrasound and that showed mild hydronephrosis of the transplanted kidney therefore a urological consultation was requested. Patient has been admitted to the hospital here before and same findings were noted in the transplanted kidney. On the examination there is no longer hematoma in the right side of the abdomen. Patient does have a large right hydrocele. As far as a hydronephrosis in the transplanted kidney disease has been present before. We will encourage the patient to urinate often and try to keep his bladder empty. Consultation Date/Type/Reason Admit Date/Time March 17, 2019 at 13:23 Date of Consultation: March 17, 2019 Type of Consult Urology Reason for Consultation Mild hydronephrosis in the transplanted kidney Requesting Provider: LUPE KAPLAN MD Date/Time of Note DATE: 03/17/19 TIME: 17:30 Hx of Present Illness 58-year-old female is known to have a l history of cadaveric kidney transplant in 2010 with chronic kidney disease stage IV, diabetes, hypertension, chronic HCV infection, 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 Patient presented to the emergency room with complaints of abdominal pain and decreased urinary output over 1 month. Patient noted to have worsening renal failure with hyperkalemia on evaluation in the emergency room. Patient also stated that he cannot stay flat while sleeping and complained of chest pain. Patient is complaining of nausea and nonbloody nonbilious emesis. Patient had renal ultrasound and that showed mild hydronephrosis of the transplanted kidney therefore a urological consultation was requested. Patient has been admitted to the hospital here before and same findings were noted in the transplanted kidney. Constitutional: no complaints Eyes: no complaints ENT: no complaints Respiratory: no complaints; No wheezing Cardiovascular: no complaints Gastrointestinal: no complaints Genitourinary: other (Enlarged right scrotum) Musculoskeletal: no complaints Skin: no complaints Neurologic: no complaints Past Medical History Medical History: diabetes, hypertension, renal disease Home Meds Active Scripts Tacrolimus* (Prograf*) 1 Mg Capsule, 2 MG PO Q12 for 30 Days, CAP Prov:LETI RODRIGUEZ 01/19/19 Reported Medications Insulin Lispro (Humalog) 100 Unit/1 Ml Cartridge, 0 SQ SLIDING SCALE, EA 2-10 UNITS 03/16/19 Mycophenolate Sodium* (Mycophenolic Acid*) 180 Mg Tablet.dr, 180 MG PO Q12, TAB 03/16/19 Prednisone* (Prednisone*) 5 Mg Tab, 5 MG PO DAILY, TAB 12/09/18 Discontinued Reported Medications Insulin Lispro (Humalog) 100 Unit/1 Ml Cartridge, 2-10 UNITS SQ SLIDING SCALE, EA INSURANECE NOT COVERED THIS INSULIN 09/23/18 Discontinued Scripts Pantoprazole* (Pantoprazole*) 40 Mg Tablet.dr, 40 MG PO DAILY@06 for 30 Days Prov:LETI RODRIGUEZ 01/19/19 Ondansetron Hcl* (Zofran*) 4 Mg Tab, 4 MG PO Q4H PRN for NAUSEA AND OR VOMITING, #30 TAB Prov:LETI RODRIGUEZ 01/19/19 Furosemide* (Furosemide*) 40 Mg Tablet, 40 MG PO DAILY for 30 Days, TAB Prov:LETI RODRIGUEZ 01/19/19 Escitalopram Oxalate* (Escitalopram Oxalate*) 10 Mg Tablet, 10 MG PO DAILY for 30 Days, TAB Prov:LETI RODRIGUEZ 01/19/19 Hydralazine Hcl* (Hydralazine Hcl*) 25 Mg Tab, 50 MG PO Q12 for 30 Days, TAB Prov:LETI RODRIGUEZ 01/19/19 Cefazolin Sodium in 0.9 % NaCl (Cefazolin 2 G/100 ml-0.9% NaCl) 2 Gm/100 Ml Plast..bag, 1 GM IV Q12 for 10 Days Prov:LETI RODRIGUEZ 01/19/19 Sitagliptin* (Januvia*) 50 Mg Tablet, 50 MG PO DAILY, #30 TAB Prov:LETI RODRIGUEZ 01/19/19 Medications Current Medications Prednisone (Prednisone) 5 mg DAILY PO Last administered on 03/17/19 09:27; Admin Dose 5 MG; Start 03/17/19 at 09:00 IV Flush (NS 3 ml) 3 ml PER PROTOCOL IV ; Start 03/16/19 at 17:30 Ondansetron HCl (Zofran Inj) 4 mg Q6H PRN IV NAUSEA/VOMITING Last administered on 03/16/19at 18:04; Admin Dose 4 MG; Start 03/16/19 at 17:30 Aspirin (Aspirin) 81 mg DAILY PO Last administered on 03/17/19 09:27; Admin D ose 81 MG; Start 03/17/19 at 09:00 Nitroglycerin (Nitroglycerin (Sl Tab) 0.4 Mg) 1 tab Q5M PRN SL .CHEST PAIN; Start 03/16/19 at 17:30 Acetaminophen (Tylenol Tab) 650 mg Q6H PRN PO .PAIN 1-3 OR TEMP; Start 03/16/19 at 17:30 Acetaminophen/ Hydrocodone Bitart ([place] (5/325)) 1 tab Q6H PRN PO .PAIN 4-6 Last administered on 03/17/19 09:27; Admin Dose 1 TAB; Start 03/16/19 at 17:30 Morphine Sulfate (morphine) 2 mg Q4H PRN IV .PAIN 7-10 Last administered on 03/17/19at 11:11; Admin Dose 2 MG; Start 03/16/19 at 17:30 Zolpidem Tartrate (Ambien) 5 mg QHS PRN PO .INSOMNIA Last administered on 03/16/19at 22:12; Admin Dose 5 MG; Start 03/16/19 at 17:30 Docusate Sodium (Colace) 100 mg Q12H PO Last administered on 03/17/19at 05:14; Admin Dose 100 MG; Start 03/16/19 at 17:30 Bisacodyl (Dulcolax) 5 mg DAILY PRN PO .CONSTIPATION; Start 03/16/19 at 17:30 Insulin Aspart (Novolog Insulin Pen) NOVOLOG *MILD* ALGORITHM Q6 SC ; Start 03/16/19 at 18:00 Miscellaneous Information 1 ea NOTE XX ; Start 03/16/19 at 18:00 Glucose (Glutose) 15 gm Q15M PRN PO DECREASED GLUCOSE; Start 03/16/19 at 18:00 Glucose (Glutose) 22.5 gm Q15M PRN PO DECREASED GLUCOSE; Start 03/16/19 at 18:00 Dextrose (D50w Syringe) 25 ml Q15M PRN IV DECREASED GLUCOSE; Start 03/16/19 at 18:00 Dextrose (D50w Syringe) 50 ml Q15M PRN IV DECREASED GLUCOSE; Start 03/16/19 at 18:00 Glucagon (Glucagen) 1 mg Q15M PRN IM DECREASED GLUCOSE; Start 03/16/19 at 18:00 Glucose (Glutose) 15 gm Q15M PRN BUCCAL DECREASED GLUCOSE; Start 03/16/19 at 18:00 Ceftriaxone Sodium 50 ml @ 100 mls/hr ONCE ONCE IVPB ; Start 03/17/19 at 18:00; Stop 03/17/19 at 18:29 Pantoprazole (Protonix Tab) 40 mg DAILY@06 PO Last administered on 03/17/19at 05:14; Admin Dose 40 MG; Start 03/17/19 at 06:00 Sodium Bicarbonate 125 meq/Dextrose 1,125 ml @ 40 mls/hr Q24H IV Last administered on 03/16/19at 22:58; Admin Dose 40 MLS/HR; Start 03/16/19 at 18:30 Tacrolimus (Prograf) 2 mg AM PO ; Start 03/18/19 at 09:00 Tacrolimus (Prograf) 1 mg HS PO ; Start 03/17/19 at 21:00 Mycophenolate Sodium (Myfortic) 180 mg Q12 PO ; Start 03/17/19 at 21:00 Patiromer (Veltassa) 16.8 gm ONCE PO ; Start 03/17/19 at 15:30; Stop 03/17/19 at 19:00 Allergies: Coded Allergies: magnesium (Unverified Allergy, Intermediate, 03/16/19) NUMBNESS AND HOT FUSHES Past Surgical History Past Surgical Hx: other (S/p cadaveric kidney transplant in 2009) Social History Alcohol Use: none Smoking Status: Never smoker Drug Use: other (History of polysubstance and IV drug use in the past) Exam/Review of Systems Exam Vitals Vital Signs Date Temp Pulse Resp B/P (MAP) Pulse Ox O2 O2 Flow FiO2 Time Delivery Rate 03/17/19 65 16:23 03/17/19 98.6 18 155/63 92 15:22 (93) 03/17/19 7.0 08:02 03/16/19 Room Air 19:27 03/16/19 21 15:00 Intake and Output 03/16/19 03/16/19 03/17/19 1515:00 23:00 07:00 IntakeIntake Total 200 ml OutputOutput Total 600 ml BalanceBalance -400 ml Constitutional: alert Psych: no complaints Head: normocephalic Eyes: other (pale from anemia) ENMT: nl external ears & nose Neck: supple Respiratory: No wheezing Cardiovascular: No jugular venous distention (JVD) Gastrointestinal: soft, surgical scars (Right lower quadrant where the transplanted kidney is) Genitourinary - Male: nl penis, other (Moderate size right hydrocele) Musculoskeletal: nl extremities to inspection Extremities: No calf tenderness 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: nl mental status Skin: nl turgor Results Result Diagram: 03/17/19 1148 03/17/19 1148 Results 24hrs Laboratory Tests Test 03/16/19 18:13 03/16/19 20:47 03/16/19 23:10 03/17/19 05:12 Bedside Glucose 125 188 142 Potassium Level 5.5 H Lactic Acid Level 1.2 Test 03/17/19 11:48 03/17/19 11:50 White Blood Count 5.0 Red Blood Count 2.28 #L Hemoglobin 7.5 #L Hematocrit 23.3 #L Mean Corpuscular 102.2 H Volume Mean Corpuscular 32.9 Hemoglobin Mean Corpuscular 32.2 Hemoglobin Concent Red Cell 14.4 Distribution Width Platelet Count 157 # Mean Platelet Volume 10.0 Immature 0.600 H Granulocytes % Neutrophils % 86.8 H Lymphocytes % 6.4 L Monocytes % 4.4 Eosinophils % 1.4 Basophils % 0.4 Nucleated Red Blood 0.0 Cells % Immature 0.030 Granulocytes # Neutrophils # 4.4 Lymphocytes # 0.3 L Monocytes # 0.2 L Eosinophils # 0.1 Basophils # 0.0 Nucleated Red Blood 0.0 Cells # Sodium Level 138 Potassium Level 5.6 H Chloride Level 113 H Carbon Dioxide Level 15 L Anion Gap 10 Blood Urea Nitrogen 62 H Creatinine 4.35 H Est Glomerular 14 L Filtrat Rate mL/min Glucose Level 144 Hemoglobin A1c 6.2 H Calcium Level 8.8 Magnesium Level 2.3 Total Bilirubin 0.4 Direct Bilirubin 0.00 Indirect Bilirubin 0.4 Aspartate Amino 28 Transf (AST/SGOT) Alanine 17 Aminotransferase (AL T/SGPT) Alkaline Phosphatase 79 Total Protein 6.2 # Albumin 3.3 # Globulin 2.90 Albumin/Globulin 1.13 Ratio Lipase 329 H Bedside Glucose 154 Imaging Imaging Renal ultrasound: PROCEDURE: Renal US. CLINICAL INDICATION: Flank pain, kidney injury TECHNIQUE: Multiple sonographic images of the kidneys were obtained. The images were reviewed on a PACS workstation. COMPARISON: CT scan from 01/12/2019 FINDINGS: The transplant kidney is again seen in the anterior right pelvis. There is moderate hydronephrosis in the transplanted kidney. The transplant kidney measures 12.2 cm in length. There are questionable ill-defined hypoechoic areas within the cortex of the transplant kidney. These are not further characterized sonographically. There is debris seen within the urinary bladder. Correlate with urinalysis to exclude infection. The [place] kidneys are small and calcified bilaterally. The right [place] kidney measures 9.4 cm in length and the [place] left kidney measures 8.9 cm in length. There is a small amount of abdominal ascites. IMPRESSION: 1. A transplant kidney is seen in the anterior right pelvis. 2. There is moderate hydronephrosis in the transplanted kidney. 3. There are questionable ill-defined hypoechoic areas within the cortex of the transplant kidney. These are not further characterized sonographically. 4. There is debris seen within the urinary bladder. Correlate with urinalysis to exclude infection. 5. There is a small amount of abdominal ascites. Medications Medication Current Medications Prednisone (Prednisone) 5 mg DAILY PO Last administered on 03/17/19at 09:27; Admin Dose 5 MG; Start 03/17/19 at 09:00 IV Flush (NS 3 ml) 3 ml PER PROTOCOL IV ; Start 03/16/19 at 17:30 Ondansetron HCl (Zofran Inj) 4 mg Q6H PRN IV NAUSEA/VOMITING Last administered on 03/16/19at 18:04; Admin Dose 4 MG; Start 03/16/19 at 17:30 Aspirin (Aspirin) 81 mg DAILY PO Last administered on 03/17/19at 09:27; Admin Dose 81 MG; Start 03/17/19 at 09:00 Nitroglycerin (Nitroglycerin (Sl Tab) 0.4 Mg) 1 tab Q5M PRN SL .CHEST PAIN; Start 03/16/19 at 17:30 Acetaminophen (Tylenol Tab) 650 mg Q6H PRN PO .PAIN 1-3 OR TEMP; Start 03/16/19 at 17:30 Acetaminophen/ Hydrocodone Bitart ([place] (5/325)) 1 tab Q6H PRN PO .PAIN 4-6 Last administered on 03/17/19at 09:27; Admin Dose 1 TAB; Start 03/16/19 at 17:30 Morphine Sulfate (morphine) 2 mg Q4H PRN IV .PAIN 7-10 Last administered on 03/17/19at 11:11; Admin Dose 2 MG; Start 03/16/19 at 17:30 Zolpidem Tartrate (Ambien) 5 mg QHS PRN PO .INSOMNIA Last administered on 03/16/19at 22:12; Admin Dose 5 MG; Start 03/16/19 at 17:30 Docusate Sodium (Colace) 100 mg Q12H PO Last administered on 03/17/19at 05:14; Admin Dose 100 MG; Start 03/16/19 at 17:30 Bisacodyl (Dulcolax) 5 mg DAILY PRN PO .CONSTIPATION; Start 03/16/19 at 17:30 Insulin Aspart (Novolog Insulin Pen) NOVOLOG *MILD* ALGORITHM Q6 SC ; Start 03/16/19 at 18:00 Miscellaneous Information 1 ea NOTE XX ; Start 03/16/19 at 18:00 Glucose (Glutose) 15 gm Q15M PRN PO DECREASED GLUCOSE; Start 03/16/19 at 18:00 Glucose (Glutose) 22.5 gm Q15M PRN PO DECREASED GLUCOSE; Start 03/16/19 at 18:00 Dextrose (D50w Syringe) 25 ml Q15M PRN IV DECREASED GLUCOSE; Start 03/16/19 at 18:00 Dextrose (D50w Syringe) 50 ml Q15M PRN IV DECREASED GLUCOSE; Start 03/16/19 at 18:00 Glucagon (Glucagen) 1 mg Q15M PRN IM DECREASED GLUCOSE; Start 03/16/19 at 18:00 Glucose (Glutose) 15 gm Q15M PRN BUCCAL DECREASED GLUCOSE; Start 03/16/19 at 18:00 Ceftriaxone Sodium 50 ml @ 100 mls/hr ONCE ONCE IVPB ; Start 03/17/19 at 18:00; Stop 03/17/19 at 18:29 Pantoprazole (Protonix Tab) 40 mg DAILY@06 PO Last administered on 03/17/19at 05:14; Admin Dose 40 MG; Start 03/17/19 at 06:00 Sodium Bicarbonate 125 meq/Dextrose 1,125 ml @ 40 mls/hr Q24H IV Last adminis tered on 03/16/19at 22:58; Admin Dose 40 MLS/HR; Start 03/16/19 at 18:30 Tacrolimus (Prograf) 2 mg AM PO ; Start 03/18/19 at 09:00 Tacrolimus (Prograf) 1 mg HS PO ; Start 03/17/19 at 21:00 Mycophenolate Sodium (Myfortic) 180 mg Q12 PO ; Start 03/17/19 at 21:00 Patiromer (Veltassa) 16.8 gm ONCE PO ; Start 03/17/19 at 15:30; Stop 03/17/19 at 19:00 RAMILA GONZALEZ MD March 17, 2019 17:36
[2019-03-17] MEDS ORDERED: CEFTRIAXONE 1 GM/50 ML (PMX) 50 ML IVPB ONE (18:00)
[2019-03-17] MEDS: SODIUM BICARBONATE (IV ADD) 125 MEQ in DEXTROSE 5% 1,000 ML IV SCH (20:15)
[2019-03-17] MEDS: ONDANSETRON 4 MG INJ IV PRN (20:16)
[2019-03-17] MEDS: MYCOPHENOLATE (SR) 180 MG TAB PO SCH (20:25)
[2019-03-18] VITALS (13 sets, daily range): BP systolic 105–165; BP diastolic 51–65; PULSE 65–110; RESP 18–20
[2019-03-18] MEDS: ZOLPIDEM 5 MG TAB PO PRN
[2019-03-18] MEDS: SODIUM BICARBONATE (IV ADD) 125 MEQ in DEXTROSE 5% 1,000 ML IV SCH ×2
[2019-03-18] MEDS: ACCU-CHEK XX SCH (01:11)
[2019-03-18] MEDS: PANTOPRAZOLE (EC) 40 MG TAB PO SCH (05:09)
[2019-03-18] MEDS: DOCUSATE SODIUM 100 MG CAP PO SCH ×2 (05:09→16:51)
[2019-03-18] MEDS: MYCOPHENOLATE (SR) 180 MG TAB PO SCH ×2 (08:01→21:00)
[2019-03-18] MEDS: ASPIRIN 81 MG TAB PO SCH (08:01)
[2019-03-18] MEDS: predniSONE 5 MG TAB PO SCH (08:01)
[2019-03-18] MEDS: INSULIN ASPART [NOVOLOG] 3 ML PEN SC SCH ×4 (08:07→21:00)
[2019-03-18] MEDS: HYDROCODONE/APAP (5/325) TAB PO PRN ×2 (08:08→09:10)
[2019-03-18] MEDS: TACROLIMUS 1 MG CAP PO SCH ×3 (08:08→21:00)
--- NOTE | 2019-03-18 13:02 | PN ---
Date/Time of Note Date/Time of Note DATE: 03/18/19 TIME: 12:57 Assessment/Plan VTE Prophylaxis Risk score (from Ns)>0 risk: 1 SCD applied (from Ns): Yes Pharmacological prophylaxis: NA/contraindicated Pharm contraindication: anticoag not tolerated Lines/Catheters IV Catheter Type (from [facility]): Mid Line Assessment/Plan Hospital Course Patient started on clear liquid diet, still has occasional nausea, no labs available, ordered yesterday, continue to monitor lipase. Patient continues on supplemental oxygen, remains generally weak, denies fever and chills. Assessment/Plan -Possible sepsis secondary to possible pneumonia and UTI, follow-up on urine and blood culture, continue Rocephin. Dr. Olmstead is following in infection disease consultation. -Acute renal failure on chronic kidney disease stage IV, status post cadaveric kidney transplant in 2009. Dr[address] Allen is following in nephrology consultation. -Hyperkalemia, status post Kayexalate -UTI per UA, continue Rocephin -Moderate hydronephrosis, Dr. Noguera is following in urology consultation. -Possible pancreatitis, monitor lipase -Diabetes mellitus type 2 with diabetic neuropathy. Continue Tradjenta, Lantus and NovoLog. -Hypertension. -Anemia -Chronic HCV infection -Rheumatoid arthritis -History of polysubstance and IV drug use Further recommendations based on clinical course. Plan of care discussed with Dr. Maier. Result Diagram: 03/17/19 1148 03/17/19 1148 Results 24hrs Laboratory Tests Test 03/17/19 17:25 03/18/19 07:49 03/18/19 11:53 Bedside Glucose 170 165 203 Exam/Review of Systems Exam Vitals Vital Signs Date Temp Pulse Resp B/P (MAP) Pulse Ox O2 O2 Flow FiO2 Time Delivery Rate 03/18/19 83 12:12 03/18/19 98.7 18 124/64 100 Nasal 11:13 (84) Cannula 03/18/19 2.0 08:23 03/16/19 21 15:00 Intake and Output 03/17/19 03/17/19 03/18/19 1515:00 23:00 07:00 IntakeIntake Total 480 ml 1415 ml OutputOutput Total 200 ml 600 ml 450 ml BalanceBalance -200 ml -120 ml 965 ml Exam Constitutional: alert, oriented Respiratory: clear to auscultation Cardiovascular: regular rate and rhythm Gastrointestinal: soft, tender Musculoskeletal: nl extremities to inspection Extremities: normal pulses 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: nl mental status Results Results 24hrs Laboratory Tests Test 03/17/19 17:25 03/18/19 07:49 03/18/19 11:53 Bedside Glucose 170 165 203 Medications Medication Current Medications Prednisone (Prednisone) 5 mg DAILY PO Last administered on 03/18/19 08:01; Admin Dose 5 MG; Start 03/17/19 at 09:00 IV Flush (NS 3 ml) 3 ml PER PROTOCOL IV ; Start 03/16/19 at 17:30 Ondansetron HCl (Zofran Inj) 4 mg Q6H PRN IV NAUSEA/VOMITING Last administered on 03/17/19 20:16; Admin Dose 4 MG; Start 03/16/19 at 17:30 Aspirin (Aspirin) 81 mg DAILY PO Last administered on 03/18/19 08:01; Admin Dose 81 MG; Start 03/17/19 at 09:00 Nitroglycerin (Nitroglycerin (Sl Tab) 0.4 Mg) 1 tab Q5M PRN SL .CHEST PAIN; Start 03/16/19 at 17:30 Acetaminophen (Tylenol Tab) 650 mg Q6H PRN PO .PAIN 1-3 OR TEMP; Start 03/16/19 at 17:30 Acetaminophen/ Hydrocodone Bitart ([place] (5/325)) 1 tab Q6H PRN PO .PAIN 4-6 Last administered on 03/18/19 09:10; Admin Dose 1 TAB; Start 03/16/19 at 17:30 Morphine Sulfate (morphine) 2 mg Q4H PRN IV .PAIN 7-10 Last administered on 03/17/19at 22:44; Admin Dose 2 MG; Start 03/16/19 at 17:30 Zolpidem Tartrate (Ambien) 5 mg QHS PRN PO .INSOMNIA Last administered on 03/18/19at 00:00; Admin Dose 5 MG; Start 03/16/19 at 17:30 Docusate Sodium (Colace) 100 mg Q12H PO Last administered on 03/18/19 05:09; Admin Dose 100 MG; Start 03/16/19 at 17:30 Bisacodyl (Dulcolax) 5 mg DAILY PRN PO .CONSTIPATION; Start 03/16/19 at 17:30 Miscellaneous Information 1 ea NOTE XX ; Start 03/16/19 at 18:00 Glucose (Glutose) 15 gm Q15M PRN PO DECREASED GLUCOSE; Start 03/16/19 at 18:00 Glucose (Glutose) 22.5 gm Q15M PRN PO DECREASED GLUCOSE; Start 03/16/19 at 18:00 Dextrose (D50w Syringe) 25 ml Q15M PRN IV DECREASED GLUCOSE; Start 03/16/19 at 18:00 Dextrose (D50w Syringe) 50 ml Q15M PRN IV DECREASED GLUCOSE; Start 03/16/19 at 18:00 Glucagon (Glucagen) 1 mg Q15M PRN IM DECREASED GLUCOSE; Start 03/16/19 at 18:00 Glucose (Glutose) 15 gm Q15M PRN BUCCAL DECREASED GLUCOSE; Start 03/16/19 at 18:00 Pantoprazole (Protonix Tab) 40 mg DAILY@06 PO Last administered on 03/18/19at 05:09; Admin Dose 40 MG; Start 03/17/19 at 06:00 Tacrolimus (Prograf) 2 mg AM PO Last administered on 03/18/19at 09:03; Admin Dose 2 MG; Start 03/18/19 at 09:00 Tacrolimus (Prograf) 1 mg HS PO Last administered on 03/17/19at 20:17; Admin Dose 1 MG; Start 03/17/19 at 21:00 Mycophenolate Sodium (Myfortic) 180 mg Q12 PO Last administered on 03/18/19at 08:01; Admin Dose 180 MG; Start 03/17/19 at 21:00 Diagnostic Test (Pha) (Accu-Chek) 1 ea 02 XX ; Start 03/18/19 at 02:00 Insulin Aspart (Novolog Insulin Pen) NOVOLOG *MILD* ALGORITHM WITH MEALS BE DTIME SC Last administered on 03/18/19at 12:00; Admin Dose 2 UNIT; Start 03/18/19 at 07:55 LETI RODRIGUEZ March 18, 2019 13:02
--- NOTE | 2019-03-18 13:12 | CONS ---
Assessment/Plan Assessment/Plan Assessment/Plan (Daily) This is a 58-year-old male presenting with: 1. Abdominal pain with chills. Rule out sepsis could be secondary to urinary tract infection. 2. Hyperkalemia, could be secondary to worsening renal failure. Need to check for Prograf toxicity. The patient also has severe acidosis that could contribut e to that. Renal US showed hydronephrosis of tranplant kidney, acute on bicarb drip 4. Acute on chronic renal failure. The patient had chronic kidney disease IV in the past with a creatinine of 3.2 to 3.4. It could be exacerbated by acute hemodynamic changes with sepsis. vs hydronephrosis vs ATN vs progression of disease, pt has underlying DM nephropathy , creatinine had been improving 5. Elevated lipase.? Pancreatitis 6. Urinary tract infection. 7. Pneumonia. 8. Anemia. 9. History of hepatitis C. 10. History of donor renal transplantation. 11 metabolic acidosis likely secondary to renal failure plan -Sánchez is not getting labs done however we cannot keep the patient continuously on bicarb drip patient was explained we will DC the bicarb drip -Had refused p.o. Kayexalate and Veltassa yesterday - cw prograft 12/04, add mycophenolate and cw prednsione - montior UOP - repeat labs pending - urology consult appreciated continue with bladder emptying - renally dose al meds Consultation Date/Type/Reason Admit Date/Time March 17, 2019 at 13:23 Initial Consult Date Requesting Provider: LUPE KAPLAN MD Date/Time of Note DATE: 03/18/19 TIME: 13:12 24 HR Interval Summary Free Text/Dictation Still on bicarb drip. Had been refusing lab draws this morning Patient states that he is feeling much better Exam/Review of Systems Exam Vitals Vital Signs Date Temp Pulse Resp B/P (MAP) Pulse Ox O2 O2 Flow FiO2 Time Delivery Rate 03/18/19 83 12:12 03/18/19 98.7 18 124/64 100 Nasal 11:13 (84) Cannula 03/18/19 2.0 08:23 03/16/19 21 15:00 Intake and Output 03/17/19 03/17/19 03/18/19 1515:00 23:00 07:00 IntakeIntake Total 480 ml 1415 ml OutputOutput Total 200 ml 600 ml 450 ml BalanceBalance -200 ml -120 ml 965 ml Exam Exam GENERAL: The patient is awake, alert, oriented, HEENT: Pupils are equal, round, reactive to light. NECK: Supple. HEART: Regular rate and rhythm. LUNGS: Decreased breath sounds in the bases. ABDOMEN: Soft, some tenderness present on the lower quadrant. No tenderness at the renal graft site. EXTREMITIES: Some trace edema. Results Result Diagram: 03/17/19 1148 03/17/19 1148 Results 24hrs Laboratory Tests Test 03/17/19 17:25 03/18/19 07:49 03/18/19 11:53 Bedside Glucose 170 165 203 Medications Medication Current Medications Prednisone (Prednisone) 5 mg DAILY PO Last administered on 03/18/19 08:01; Admin Dose 5 MG; Start 03/17/19 at 09:00 IV Flush (NS 3 ml) 3 ml PER PROTOCOL IV ; Start 03/16/19 at 17:30 Ondansetron HCl (Zofran Inj) 4 mg Q6H PRN IV NAUSEA/VOMITING Last administered on 03/17/19 20:16; Admin Dose 4 MG; Start 03/16/19 at 17:30 Aspirin (Aspirin) 81 mg DAILY PO Last administered on 03/18/19 08:01; Admin Dose 81 MG; Start 03/17/19 at 09:00 Nitroglycerin (Nitroglycerin (Sl Tab) 0.4 Mg) 1 tab Q5M PRN SL .CHEST PAIN; Start 03/16/19 at 17:30 Acetaminophen (Tylenol Tab) 650 mg Q6H PRN PO .PAIN 1-3 OR TEMP; Start 03/16/19 at 17:30 Acetaminophen/ Hydrocodone Bitart ([place] (5/325)) 1 tab Q6H PRN PO .PAIN 4-6 Last administered on 03/18/19 09:10; Admin Dose 1 TAB; Start 03/16/19 at 17:30 Morphine Sulfate (morphine) 2 mg Q4H PRN IV .PAIN 7-10 Last administered on 03/17/19 22:44; Admin Dose 2 MG; Start 03/16/19 at 17:30 Zolpidem Tartrate (Ambien) 5 mg QHS PRN PO .INSOMNIA Last administered on 03/18/19 00:00; Admin Dose 5 MG; Start 03/16/19 at 17:30 Docusate Sodium (Colace) 100 mg Q12H PO Last administered on 03/18/19at 05:09; Admin Dose 100 MG; Start 03/16/19 at 17:30 Bisacodyl (Dulcolax) 5 mg DAILY PRN PO .CONSTIPATION; Start 03/16/19 at 17:30 Miscellaneous Information 1 ea NOTE XX ; Start 03/16/19 at 18:00 Glucose (Glutose) 15 gm Q15M PRN PO DECREASED GLUCOSE; Start 03/16/19 at 18:00 Glucose (Glutose) 22.5 gm Q15M PRN PO DECREASED GLUCOSE; Start 03/16/19 at 18:00 Dextrose (D50w Syringe) 25 ml Q15M PRN IV DECREASED GLUCOSE; Start 03/16/19 at 18:00 Dextrose (D50w Syringe) 50 ml Q15M PRN IV DECREASED GLUCOSE; Start 03/16/19 at 18:00 Glucagon (Glucagen) 1 mg Q15M PRN IM DECREASED GLUCOSE; Start 03/16/19 at 18:00 Glucose (Glutose) 15 gm Q15M PRN BUCCAL DECREASED GLUCOSE; Start 03/16/19 at 18:00 Pantoprazole (Protonix Tab) 40 mg DAILY@06 PO Last administered on 03/18/19at 05:09; Admin Dose 40 MG; Start 03/17/19 at 06:00 Tacrolimus (Prograf) 2 mg AM PO Last administered on 03/18/19at 09:03; Admin Dose 2 MG; Start 03/18/19 at 09:00 Tacrolimus (Prograf) 1 mg HS PO Last administered on 03/17/19at 20:17; Admin Dose 1 MG; Start 03/17/19 at 21:00 Mycophenolate Sodium (Myfortic) 180 mg Q12 PO Last administered on 03/18/19at 08:01; Admin Dose 180 MG; Start 03/17/19 at 21:00 Diagnostic Test (Pha) (Accu-Chek) 1 ea 02 XX ; Start 03/18/19 at 02:00 Insulin Aspart (Novolog Insulin Pen) NOVOLOG *MILD* ALGORITHM WITH MEALS BEDTIME SC Last administered on 03/18/19at 12:00; Admin Dose 2 UNIT; Start 03/18/19 at 07:55 HARVINDER BLOOD MD March 18, 2019 13:12
[2019-03-18] MEDS ORDERED: GUAIFENESIN/DM 5ML CUP PO PRN (14:30)
[2019-03-18] MEDS: HYDROCODONE/APAP (5/325) TAB NGT PRN ×2 (15:08→21:05)
[2019-03-18] MEDS ORDERED: SODIUM POLYSTYRENE 15 GM KIT (POWDER + SORBITOL) PR ONE (17:30)
[2019-03-18] MEDS: METOCLOPRAMIDE 5 MG TAB PO SCH ×2 (17:49→20:59)
[2019-03-18] MEDS ORDERED: INSULIN ASPART [NOVOLOG] 3 ML PEN SC SCH (17:55)
[2019-03-18] MEDS ORDERED: SODIUM POLYSTYRENE 15 GM KIT (POWDER + SORBITOL) PO ONE (18:00)
[2019-03-18] MEDS ORDERED: SODIUM POLYSTYRENE 15 GM KIT (POWDER + SORBITOL) PO SCH (18:10)
--- NOTE | 2019-03-18 18:35 | CONS ---
Assessment/Plan Assessment/Plan Assessment/Plan (Daily) 1. ARF 2. SOB w/u in progress 3. Possible uti but seems less likely PMH as of last admit: - Anasarca, improved with IV Lasix - Endocarditis - Dr. Olmstead rec'd call from [facility] 01/15/19 regarding this and plan was to complete cefazolin through 01.29.19 - Completing Augmentin for progressive swelling of distal aspect of right ring finger with x-ray showing further of erosion and lucency involving the distal aspect of the distal phalanx of the right ring finger suspicious for osteomyelitis with improved but slight associated soft tissue swelling. ESR 67. - Hx OM of R 4th digit: swelling with new erosive changes and osteopenia of the underlying R 4th distal phalanx, suggestive of osteomyelitis; wound culture grew Serratia on 03/18/18 and Serratia + CoNS (likely colonizer) on 04/04/18 ; Pt decli christos amputation. ESR 39 on 03/18/2018. S/p Levaquin x 6 weeks, ESR 60 01/13/19 - Hematoma within the right lateral abdominal wall musculature which has developed since the previous study done 12/13/2018 measuring 7.3 x 4.6 cm in cross diameter and extending an acrylic that dimension approximately 10.7 cm from the level of the superior pole of the [place] right kidney to just inferior to the right iliac crest per CT 01/12/19 - Calcification of the vas deferens with a persistent hydrocele within the sc rotum per CT 01/12/19 - Bacteremia d/t MSSA 12/09/2018, repeat blood cx 12/12/18 NGTD - MRSA and K. pneumoniae in urine cx 12/09/2018 - UA was neg for pyuria - Hx mild subtle increased activity within the upper aspect of LUE, nonspecific, on WBC tagged scan on 04/05/2018 - Hx OM of R 3rd fingertip (XR showed periosteal reaction at the tip of R 3rd distal phalanx, suspicious for OM, MRI showed cellulitis of distal R 4th phalanx, without OM) and L 2nd fingertip (XR showed cortical irregularity at the tuft of L 2nd distal phalanx with overlying soft tissue defect, suggesting early OM, MRI showed OM at L 2nd distal phalanx with, cellulitis about L 2nd distal phalanx without drainable fluid collection.) - Hx OM of R 2nd finger s/p amputation at proximal phalanx neck, and h/o OM of L 3rd finger s/p amputation at middle and distal phalanges - Acute on chronic renal failure - Hyperkalemia with metabolic acidosis - slowly improving with sodium bicarb - Hx ESRD, was on HD - S/p renal transplant in 2009 (on tacrolimus, mycophenolate and prednisone), chronic renal insufficiency at baseline - DM - Hgb A1c 10.5% - Hx Juan's esophagus and gastritis s/p EGD on 08/12/2017. No H. pylori on Bx - BLE atherosclerosis - Seen by Vascular Surgery during last admit - Onychomycosis, tinea pedis - Seen by [facility] during last admit - Rheumatoid arthritis - Chronic HCV infection - HTN - Dyslipidemia - Hx polysubstance and IV drug use. 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 psychosis - on Lexapro - Abdominal distention and pain R: Monitor closely off antibiotic S/p Ceftriaxone F/u with blood cxs (NGTD), sputum cx (re-ordered 03/18/19), urine cx (pending) serial cxr, procalc will continue to follow closely with you above plan d/t via [employer] Consultation Date/Type/Reason Admit Date/Time March 17, 2019 at 13:23 Initial Consult Date 03/17/19 Requesting Provider: LUPE KAPLAN MD Date/Time of Note DATE: 03/18/19 TIME: 18:26 Detailed Summary Additional Comments Pt reports " I'm just feeling sick" but denies all my ROS questions. Exam/Review of Systems Exam Vitals Vital Signs Date Temp Pulse Resp B/P (MAP) Pulse Ox O2 O2 Flow FiO2 Time Delivery Rate 03/18/19 93 16:19 03/18/19 128/55 15:29 (79) 03/18/19 98.2 20 99 Room Air 15:12 03/18/19 2.0 08:23 03/16/19 21 15:00 Intake and Output 03/17/19 03/17/19 03/18/19 1515:00 23:00 07:00 IntakeIntake Total 480 ml 1415 ml OutputOutput Total 200 ml 600 ml 450 ml BalanceBalance -200 ml -120 ml 965 ml Constitutional: alert Psych: other (agitated) Head: normocephalic, atraumatic Eyes: EOMI, PERRL Neck: supple Respiratory: clear to auscultation, normal air movement; No congested cough, No crackles/rales, No wheezing Cardiovascular: regular rate and rhythm Gastrointestinal: soft, non-tender; No rebound or guarding Musculoskeletal: nl extremities to inspection 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: nl mental status, nl speech Skin: ecchymosis (chest and left sided abdomnen and back), other (LUE and finger wounds healed) Results Result Diagram: 03/18/19 1534 03/18/19 1533 Results 24hrs Laboratory Tests Test 03/18/19 07:49 03/18/19 11:53 03/18/19 15:33 03/18/19 15:34 Bedside Glucose 165 203 Sodium Level 136 Potassium Level 5.7 H Chloride Level 110 Carbon Dioxide Level 17 L Anion Gap 9 Blood Urea Nitrogen 63 H Creatinine 3.98 H Est Glomerular 16 L Filtrat Rate mL/min Glucose Level 183 Calcium Level 8.9 Lipase 523 H Procalcitonin 0.53 H White Blood Count 6.0 Red Blood Count 3.02 #L Hemoglobin 9.7 #L Hematocrit 30.0 #L Mean Corpuscular 99.3 Volume Mean Corpuscular 32.1 Hemoglobin Mean Corpuscular 32.3 Hemoglobin Concent Red Cell 14.0 Distribution Width Platelet Count 219 # Mean Platelet Volume 10.4 Immature 0.300 Granulocytes % Neutrophils % 88.2 H Lymphocytes % 7.2 L Monocytes % 3.8 Eosinophils % 0.2 Basophils % 0.3 Nucleated Red Blood 0.0 Cells % Immature 0.020 Granulocytes # Neutrophils # 5.3 Lymphocytes # 0.4 L Monocytes # 0.2 L Eosinophils # 0.0 Basophils # 0.0 Nucleated Red Blood 0.0 Cells # Test 03/18/19 16:50 Bedside Glucose 203 Medications Medication Current Medications Prednisone (Prednisone) 5 mg DAILY PO Last administered on 03/18/19at 08:01; Admin Dose 5 MG; Start 03/17/19 at 09:00 IV Flush (NS 3 ml) 3 ml PER PROTOCOL IV ; Start 03/16/19 at 17:30 Ondansetron HCl (Zofran Inj) 4 mg Q6H PRN IV NAUSEA/VOMITING Last administered on 03/17/19at 20:16; Admin Dose 4 MG; Start 03/16/19 at 17:30 Aspirin (Aspirin) 81 mg DAILY PO Last administered on 03/18/19at 08:01; Admin Dose 81 MG; Start 03/17/19 at 09:00 Nitroglycerin (Nitroglycerin (Sl Tab) 0.4 Mg) 1 tab Q5M PRN SL .CHEST PAIN; Start 03/16/19 at 17:30 Acetaminophen (Tylenol Tab) 650 mg Q6H PRN PO .PAIN 1-3 OR TEMP; Start 03/16/19 at 17:30 Acetaminophen/ Hydrocodone Bitart ([place] (5/325)) 1 tab Q6H PRN PO .PAIN 4-6 Last administered on 03/18/19at 09:10; Admin Dose 1 TAB; Start 03/16/19 at 17:30 Morphine Sulfate (morphine) 2 mg Q4H PRN IV .PAIN 7-10 Last administered on 03/17/19at 22:44; Admin Dose 2 MG; Start 03/16/19 at 17:30 Zolpidem Tartrate (Ambien) 5 mg QHS PRN PO .INSOMNIA Last administered on 03/18/19at 00:00; Admin Dose 5 MG; Start 03/16/19 at 17:30 Docusate Sodium (Colace) 100 mg Q12H PO Last administered on 03/18/19at 16:51; Admin Dose 100 MG; Start 03/16/19 at 17:30 Bisacodyl (Dulcolax) 5 mg DAILY PRN PO .CONSTIPATION; Start 03/16/19 at 17:30 Miscellaneous Information 1 ea NOTE XX ; Start 03/16/19 at 18:00 Glucose (Glutose) 15 gm Q15M PRN PO DECREASED GLUCOSE; Start 03/16/19 at 18:00 Glucose (Glutose) 22.5 gm Q15M PRN PO DECREASED GLUCOSE; Start 03/16/19 at 18:00 Dextrose (D50w Syringe) 25 ml Q15M PRN IV DECREASED GLUCOSE; Start 03/16/19 at 18:00 Dextrose (D50w Syringe) 50 ml Q15M PRN IV DECREASED GLUCOSE; Start 03/16/19 at 18:00 Glucagon (Glucagen) 1 mg Q15M PRN IM DECREASED GLUCOSE; Start 03/16/19 at 18:00 Glucose (Glutose) 15 gm Q15M PRN BUCCAL DECREASED GLUCOSE; Start 03/16/19 at 18:00 Pantoprazole (Protonix Tab) 40 mg DAILY@06 PO Last administered on 03/18/19at 05:09; Admin Dose 40 MG; Start 03/17/19 at 06:00 Tacrolimus (Prograf) 2 mg AM PO Last administered on 03/18/19at 09:03; Admin Dose 2 MG; Start 03/18/19 at 09:00 Tacrolimus (Prograf) 1 mg HS PO Last administered on 03/17/19at 20:17; Admin Dose 1 MG; Start 03/17/19 at 21:00 Mycophenolate Sodium (Myfortic) 180 mg Q12 PO Last administered on 03/18/19at 0 8:01; Admin Dose 180 MG; Start 03/17/19 at 21:00 Diagnostic Test (Pha) (Accu-Chek) 1 ea 02 XX ; Start 03/18/19 at 02:00 Acetaminophen/ Hydrocodone Bitart ([place] (5/325)) 2 tab Q4H PRN NGT MODERATE to sever 5-10 Last administered on 03/18/19at 15:08; Admin Dose 2 TAB; Start 03/18/19 at 14:30 Guaifenesin/ Dextromethorphan (Robitussin Dm Liquid Cup) 10 ml Q4H PRN PO COUGH; Start 03/18/19 at 14:30 Hydralazine HCl (Apresoline) 10 mg Q4H PRN IV ELEVATED BLOOD PRESSURE; Start 03/18/19 at 15:30 Metoclopramide HCl (Reglan) 5 mg TID PO Last administered on 03/18/19at 17:49; Admin Dose 5 MG; Start 03/18/19 at 17:00 Simethicone (Mylicon) 80 mg Q6H PRN PO DISTENSION/GAS/BLOATING Last administered on 03/18/19at 18:15; Admin Dose 80 MG; Start 03/18/19 at 17:30 Insulin Aspart (Novolog Insulin Pen) NOVOLOG *MODERATE* ALGORITHM WITH MEALS BEDTIME SC ; Start 03/18/19 at 21:00 Sodium Polystyrene Sulfonate (Kayexelate 15 Gm Kit (Powder+Sorbitol)) 60 gm ONCE PO Last administered on 03/18/19at 18:15; Admin Dose 60 GM; Start 03/18/19 at 18:10; Stop 03/18/19 at 19:00 ESTEFANI SAUCEDA NP March 18, 2019 18:35
[2019-03-19] VITALS (11 sets, daily range): BP systolic 92–174; BP diastolic 51–96; PULSE 68–108; RESP 18
[2019-03-19] MEDS: morphine 2 MG INJ IV PRN (01:02)
[2019-03-19] MEDS: ACCU-CHEK XX SCH (02:00)
[2019-03-19] MEDS: DOCUSATE SODIUM 100 MG CAP PO SCH ×2 (05:08→17:11)
[2019-03-19] MEDS: PANTOPRAZOLE (EC) 40 MG TAB PO SCH (05:57)
[2019-03-19] MEDS: METOCLOPRAMIDE 5 MG TAB PO SCH ×3 (07:46→21:13)
[2019-03-19] MEDS: INSULIN ASPART [NOVOLOG] 3 ML PEN SC SCH ×4 (07:46→21:00)
[2019-03-19] MEDS: ASPIRIN 81 MG TAB PO SCH (07:46)
[2019-03-19] MEDS: TACROLIMUS 1 MG CAP PO SCH ×2 (07:47→21:13)
[2019-03-19] MEDS: predniSONE 5 MG TAB PO SCH (07:47)
[2019-03-19] MEDS: MYCOPHENOLATE (SR) 180 MG TAB PO SCH ×2 (07:47→21:13)
--- NOTE | 2019-03-19 11:15 | PN ---
Date/Time of Note Date/Time of Note DATE: 03/19/19 TIME: 11:14 Assessment/Plan VTE [place]axis [place] [facility] [place]: 2 [place] [facility] [place] SCD contraindicated: other Pharmacological prophylaxis: other Pharm contraindication: other Lines/Catheters [facility]from [facility] Mid Line Central line still needed: Yes Urinary Cath still in place: No Assessment/Plan Assessment/Plan -Possible sepsis secondary to possible pneumonia and UTI, follow-up on urine and blood culture, continue Rocephin. Dr. Olmstead is following in infection disease consultation. -Acute renal failure on chronic kidney disease stage IV, status post cadaveric kidney transplant [place] 2009. Dr[address] Allen is following in nephrology consultation. -Hyperkalemia, status post Kayexalate -UTI per UA, continue Rocephin -Moderate hydronephrosis, Dr. Noguera is following in urology consultation. -Possible pancreatitis, monitor lipase -Diabetes mellitus type 2 with diabetic neuropathy. Continue Tradjenta, Lantus and NovoLog. -Hypertension. -Anemia -Chronic HCV infection -Rheumatoid arthritis -History of polysubstance and IV drug use Further recommendations based on clinical course. Plan of care discussed with Dr. Maier. Result Diagram: 03/19/19 0618 03/19/19 0618 Results 24hrs Laboratory Tests Test 03/18/19 11:53 03/18/19 15:33 03/18/19 15:34 03/18/19 16:50 Bedside Glucose 203 203 Sodium Level 136 Potassium Level 5.7 H Chloride Level 110 Carbon Dioxide Level 17 L Anion Gap 9 Blood Urea Nitrogen 63 H Creatinine 3.98 H Est Glomerular 16 L Filtrat Rate mL/min Glucose Level 183 Calcium Level 8.9 Lipase 523 H Procalcitonin 0.53 H White Blood Count 6.0 Red Blood Count 3.02 #L Hemoglobin 9.7 #L Hematocrit 30.0 #L Mean Corpuscular 99.3 Volume Mean Corpuscular 32.1 Hemoglobin Mean Corpuscular 32.3 Hemoglobin Concent Red Cell 14.0 Distribution Width Platelet Count 219 # Mean Platelet Volume 10.4 Immature 0.300 Granulocytes % Neutrophils % 88.2 H Lymphocytes % 7.2 L Monocytes % 3.8 Eosinophils % 0.2 Basophils % 0.3 Nucleated Red Blood 0.0 Cells % Immature 0.020 Granulocytes # Neutrophils # 5.3 Lymphocytes # 0.4 L Monocytes # 0.2 L Eosinophils # 0.0 Basophils # 0.0 Nucleated Red Blood 0.0 Cells # Test 03/18/19 20:59 03/19/19 03:29 03/19/19 06:18 03/19/19 07:46 Bedside Glucose 138 154 136 White Blood Count 6.9 Red Blood Count 2.65 L Hemoglobin 8.7 L Hematocrit 26.4 L Mean Corpuscular 99.6 Volume Mean Corpuscular 32.8 Hemoglobin Mean Corpuscular 33.0 Hemoglobin Concent Red Cell 14.1 Distribution Width Platelet Count 168 # Mean Platelet Volume 10.1 Immature 0.400 Granulocytes % Neutrophils % 81.4 H Lymphocytes % 8.6 L Monocytes % 7.8 Eosinophils % 1.2 Basophils % 0.6 Nucleated Red Blood 0.0 Cells % Immature 0.030 Granulocytes # Neutrophils # 5.6 Lymphocytes # 0.6 L Monocytes # 0.5 Eosinophils # 0.1 Basophils # 0.0 Nucleated Red Blood 0.0 Cells # Sodium Level 139 Potassium Level 4.9 Chloride Level 111 H Carbon Dioxide Level 16 L Anion Gap 12 Blood Urea Nitrogen 69 H Creatinine 4.12 H Est Glomerular 15 L Filtrat Rate mL/min Glucose Level 147 Calcium Level 9.0 Lipase 266 Subjective 24 Hr Interval Summary Free Text/Dictation -nad - seems comfortable on supplemental oxygen - c/o generalized weakness - tolerates clear liquid diet - denies nausea,fever and chills. - no new events reported last night dw staff Constitutional: requiring O2 Eyes: no complaints ENT: no complaints Respiratory: no complaints Cardiovascular: no complaints Gastrointestinal: no complaints Genitourinary: no complaints Musculoskeletal: restricted range of motion Skin: no complaints Neurologic: no complaints Endocrine: no complaints Lymphatic: no complaints Exam/Review of Systems Exam Vitals Vital Signs Date Temp Pulse Resp B/P (MAP) Pulse Ox O2 O2 Flow FiO2 Time Delivery Rate 03/19/19 98.0 68 18 127/69 99 Room Air 11:07 (88) 03/18/19 2.0 22:31 03/16/19 21 15:00 Intake and Output 03/18/19 03/18/19 03/19/19 1515:00 23:00 07:00 IntakeIntake Total 580 ml OutputOutput Total 550 ml BalanceBalance 30 ml Constitutional: alert, frail Psych: nl mood/affect Eyes: nl lids, nl sclera ENMT: nl external ears & nose Respiratory: clear to auscultation Cardiovascular: nl pulses, other (S1S2) Gastrointestinal: soft, non-tender Musculoskeletal: muscle weakness Extremities: normal pulses 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: nl speech, other (ALERT/responsive) Lymph: nontender Results Results 24hrs Laboratory Tests Test 03/18/19 11:53 03/18/19 15:33 03/18/19 15:34 03/18/19 16:50 Bedside Glucose 203 203 Sodium Level 136 Potassium Level 5.7 H Chloride Level 110 Carbon Dioxide Level 17 L Anion Gap 9 Blood Urea Nitrogen 63 H Creatinine 3.98 H Est Glomerular 16 L Filtrat Rate mL/min Glucose Level 183 Calcium Level 8.9 Lipase 523 H Procalcitonin 0.53 H White Blood Count 6.0 Red Blood Count 3.02 #L Hemoglobin 9.7 #L Hematocrit 30.0 #L Mean Corpuscular 99.3 Volume Mean Corpuscular 32.1 Hemoglobin Mean Corpuscular 32.3 Hemoglobin Concent Red Cell 14.0 Distribution Width Platelet Count 219 # Mean Platelet Volume 10.4 Immature 0.300 Granulocytes % Neutrophils % 88.2 H Lymphocytes % 7.2 L Monocytes % 3.8 Eosinophils % 0.2 Basophils % 0.3 Nucleated Red Blood 0.0 Cells % Immature 0.020 Granulocytes # Neutrophils # 5.3 Lymphocytes # 0.4 L Monocytes # 0.2 L Eosinophils # 0.0 Basophils # 0.0 Nucleated Red Blood 0.0 Cells # Test 03/18/19 20:59 03/19/19 03:29 03/19/19 06:18 03/19/19 07:46 Bedside Glucose 138 154 136 White Blood Count 6.9 Red Blood Count 2.65 L Hemoglobin 8.7 L Hematocrit 26.4 L Mean Corpuscular 99.6 Volume Mean Corpuscular 32.8 Hemoglobin Mean Corpuscular 33.0 Hemoglobin Concent Red Cell 14.1 Distribution Width Platelet Count 168 # Mean Platelet Volume 10.1 Immature 0.400 Granulocytes % Neutrophils % 81.4 H Lymphocytes % 8.6 L Monocytes % 7.8 Eosinophils % 1.2 Basophils % 0.6 Nucleated Red Blood 0.0 Cells % Immature 0.030 Granulocytes # Neutrophils # 5.6 Lymphocytes # 0.6 L Monocytes # 0.5 Eosinophils # 0.1 Basophils # 0.0 Nucleated Red Blood 0.0 Cells # Sodium Level 139 Potassium Level 4.9 Chloride Level 111 H Carbon Dioxide Level 16 L Anion Gap 12 Blood Urea Nitrogen 69 H Creatinine 4.12 H Est Glomerular 15 L Filtrat Rate mL/min Glucose Level 147 Calcium Level 9.0 Lipase 266 Medications Medication Current Medications Prednisone (Prednisone) 5 mg DAILY PO Last administered on 03/19/19at 07:47; Admin Dose 5 MG; Start 03/17/19 at 09:00 IV Flush (NS 3 ml) 3 ml PER PROTOCOL IV ; Start 03/16/19 at 17:30 Ondansetron HCl (Zofran Inj) 4 mg Q6H PRN IV NAUSEA/VOMITING Last administered on 03/17/19at 20:16; Admin Dose 4 MG; Start 03/16/19 at 17:30 Aspirin (Aspirin) 81 mg DAILY PO Last administered on 03/19/19at 07:46; Admin Dose 81 MG; Start 03/17/19 at 09:00 Nitroglycerin (Nitroglycerin (Sl Tab) 0.4 Mg) 1 tab Q5M PRN SL .CHEST PAIN; Start 03/16/19 at 17:30 Acetaminophen (Tylenol Tab) 650 mg Q6H PRN PO .PAIN 1-3 OR TEMP; Start 03/16/19 at 17:30 Acetaminophen/ Hydrocodone Bitart ([place] (5/325)) 1 tab Q6H PRN PO .PAIN 4-6 Last administered on 03/18/19at 09:10; Admin Dose 1 TAB; Start 03/16/19 at 17:30 Morphine Sulfate (morphine) 2 mg Q4H PRN IV .PAIN 7-10 Last administered on 03/03 01:02; Admin Dose 2 MG; Start 03/16/19 at 17:30 Zolpidem Tartrate (Ambien) 5 mg QHS PRN PO .INSOMNIA Last administered on 03/18/19at 00:00; Admin Dose 5 MG; Start 03/16/19 at 17:30 Docusate Sodium (Colace) 100 mg Q12H PO Last administered on 03/18/19at 16:51; Admin Dose 100 MG; Start 03/16/19 at 17:30 Bisacodyl (Dulcolax) 5 mg DAILY PRN PO .CONSTIPATION; Start 03/16/19 at 17:30 Miscellaneous Information 1 ea NOTE XX ; Start 03/16/19 at 18:00 Glucose (Glutose) 15 gm Q15M PRN PO DECREASED GLUCOSE; Start 03/16/19 at 18:00 Glucose (Glutose) 22.5 gm Q15M PRN PO DECREASED GLUCOSE; Start 03/16/19 at 18:00 Dextrose (D50w Syringe) 25 ml Q15M PRN IV DECREASED GLUCOSE; Start 03/16/19 at 18:00 Dextrose (D50w Syringe) 50 ml Q15M PRN IV DECREASED GLUCOSE; Start 03/16/19 at 18:00 Glucagon (Glucagen) 1 mg Q15M PRN IM DECREASED GLUCOSE; Start 03/16/19 at 18:00 Glucose (Glutose) 15 gm Q15M PRN BUCCAL DECREASED GLUCOSE; Start 03/16/19 at 18:00 Pantoprazole (Protonix Tab) 40 mg DAILY@06 PO Last administered on 03/19/19at 05:57; Admin Dose 40 MG; Start 03/17/19 at 06:00 Tacrolimus (Prograf) 2 mg AM PO Last administered on 03/19/19at 07:47; Admin Dose 2 MG; Start 03/18/19 at 09:00 Tacrolimus (Prograf) 1 mg HS PO Last administered on 03/18/19at 21:00; Admin Dose 1 MG; Start 03/17/19 at 21:00 Mycophenolate Sodium (Myfortic) 180 mg Q12 PO Last administered on 03/19/19at 07:47; Admin Dose 180 MG; Start 03/17/19 at 21:00 Diagnostic Test (Pha) (Accu-Chek) 1 ea 02 XX ; Start 03/18/19 at 02:00 Acetaminophen/ Hydrocodone Bitart ([place] (5/325)) 2 tab Q4H PRN NGT MODERATE to sever 5-10 Last administered on 03/18/19at 21:05; Admin Dose 2 TAB; Start 03/18/19 at 14:30 Guaifenesin/ Dextromethorphan (Robitussin Dm Liquid Cup) 10 ml Q4H PRN PO COUGH; Start 03/18/19 at 14:30 Hydralazine HCl (Apresoline) 10 mg Q4H PRN IV ELEVATED BLOOD PRESSURE; Start 03/18/19 at 15:30 Metoclopramide HCl (Reglan) 5 mg TID PO Last administered on 03/19/19at 07:46; Admin Dose 5 MG; Start 03/18/19 at 17:00 Simethicone (Mylicon) 80 mg Q6H PRN PO DISTENSION/GAS/BLOATING Last administered on 03/19/19at 01:00; Admin Dose 80 MG; Start 03/18/19 at 17:30 Insulin Aspart (Novolog Insulin Pen) NOVOLOG *MODERATE* ALGORITHM WITH MEALS BEDTIME SC ; Start 03/18/19 at 21:00 EILEEN COBURN March 19, 2019 11:15
--- NOTE | 2019-03-19 13:30 | CONS ---
Assessment/Plan Assessment/Plan Hospital Course (Demo Recall) 1. Hyperkalemia, could be secondary to worsening renal failure. Need to check for Prograf toxicity. The patient also has severe acidosis that could contribute to that. Renal US showed hydronephrosis of transplant kidney, acute 2. Abdominal pain with chills. 4. Acute on chronic renal failure. The patient had chronic kidney disease IV in the past with a creatinine of 3.2 to 3.4. It could be exacerbated by acute hemodynamic changes with sepsis. vs hydronephrosis vs ATN vs progression of disease, pt has underlying DM nephropathy , creatinine had been improving 5. Elevated lipase.? Pancreatitis 6. Urinary tract infection. 7. Pneumonia. 8. Anemia. 9. History of hepatitis C. 10. History of donor renal transplantation. 11. metabolic acidosis likely secondary to renal failure 12. Non compliance He had refused p.o. Kayexalate and Velt[place] Assessment/Plan (Daily) - cw prograft 2 mg/1, mycophenolate and cw prednisone. - monitor UOP - repeat labs pending - urology consult appreciated continue with bladder emptying - renally dose al meds -phos level -hypoglycemic control Consultation Date/Type/Reason Admit Date/Time March 17, 2019 at 13:23 Initial Consult Date 03/17/19 Type of Consult nephrology Requesting Provider: LUPE KAPLAN MD Date/Time of Note DATE: 03/19/19 TIME: 13:24 24 HR Interval Summary Constitutional: improved Exam/Review of Systems Exam Vitals Vital Signs Date Temp Pulse Resp B/P (MAP) Pulse Ox O2 O2 Flow FiO2 Time Delivery Rate 03/19/19 79 12:05 03/19/19 98.0 18 127/69 99 Room Air 11:07 (88) 03/18/19 2.0 22:31 03/16/19 21 15:00 Intake and Output 03/18/19 03/18/19 03/19/19 1515:00 23:00 07:00 IntakeIntake Total 580 ml OutputOutput Total 550 ml BalanceBalance 30 ml Constitutional: alert, oriented Respiratory: diminished breath sounds Cardiovascular: regular rate and rhythm Gastrointestinal: soft Results Result Diagram: 03/19/19 0618 03/19/19 0618 Results 24hrs Laboratory Tests Test 03/18/19 15:33 03/18/19 15:34 03/18/19 16:50 03/18/19 20:59 Sodium Level 136 Potassium Level 5.7 H Chloride Level 110 Carbon Dioxide Level 17 L Anion Gap 9 Blood Urea Nitrogen 63 H Creatinine 3.98 H Est Glomerular 16 L Filtrat Rate mL/min Glucose Level 183 Calcium Level 8.9 Lipase 523 H Procalcitonin 0.53 H White Blood Count 6.0 Red Blood Count 3.02 #L Hemoglobin 9.7 #L Hematocrit 30.0 #L Mean Corpuscular 99.3 Volume Mean Corpuscular 32.1 Hemoglobin Mean Corpuscular 32.3 Hemoglobin Concent Red Cell 14.0 Distribution Width Platelet Count 219 # Mean Platelet Volume 10.4 Immature 0.300 Granulocytes % Neutrophils % 88.2 H Lymphocytes % 7.2 L Monocytes % 3.8 Eosinophils % 0.2 Basophils % 0.3 Nucleated Red Blood 0.0 Cells % Immature 0.020 Granulocytes # Neutrophils # 5.3 Lymphocytes # 0.4 L Monocytes # 0.2 L Eosinophils # 0.0 Basophils # 0.0 Nucleated Red Blood 0.0 Cells # Bedside Glucose 203 138 Test 03/19/19 03:29 03/19/19 06:18 03/19/19 07:46 03/19/19 11:55 Bedside Glucose 154 136 245 H White Blood Count 6.9 Red Blood Count 2.65 L Hemoglobin 8.7 L Hematocrit 26.4 L Mean Corpuscular 99.6 Volume Mean Corpuscular 32.8 Hemoglobin Mean Corpuscular 33.0 Hemoglobin Concent Red Cell 14.1 Distribution Width Platelet Count 168 # Mean Platelet Volume 10.1 Immature 0.400 Granulocytes % Neutrophils % 81.4 H Lymphocytes % 8.6 L Monocytes % 7.8 Eosinophils % 1.2 Basophils % 0.6 Nucleated Red Blood 0.0 Cells % Immature 0.030 Granulocytes # Neutrophils # 5.6 Lymphocytes # 0.6 L Monocytes # 0.5 Eosinophils # 0.1 Basophils # 0.0 Nucleated Red Blood 0.0 Cells # Sodium Level 139 Potassium Level 4.9 Chloride Level 111 H Carbon Dioxide Level 16 L Anion Gap 12 Blood Urea Nitrogen 69 H Creatinine 4.12 H Est Glomerular 15 L Filtrat Rate mL/min Glucose Level 147 Calcium Level 9.0 Lipase 266 Medications Medication Current Medications Prednisone (Prednisone) 5 mg DAILY PO Last administered on 03/19/19at 07:47; Admin Dose 5 MG; Start 03/17/19 at 09:00 IV Flush (NS 3 ml) 3 ml PER PROTOCOL IV ; Start 03/16/19 at 17:30 Ondansetron HCl (Zofran Inj) 4 mg Q6H PRN IV NAUSEA/VOMITING Last administered on 03/17/19at 20:16; Admin Dose 4 MG; Start 03/16/19 at 17:30 Aspirin (Aspirin) 81 mg DAILY PO Last administered on 03/19/19at 07:46; Admin Dose 81 MG; Start 03/17/19 at 09:00 Nitroglycerin (Nitroglycerin (Sl Tab) 0.4 Mg) 1 tab Q5M PRN SL .CHEST PAIN; Start 03/16/19 at 17:30 Acetaminophen (Tylenol Tab) 650 mg Q6H PRN PO .PAIN 1-3 OR TEMP; Start 03/16/19 at 17:30 Acetaminophen/ Hydrocodone Bitart ([place] (5/325)) 1 tab Q6H PRN PO .PAIN 4-6 Last administered on 03/18/19at 09:10; Admin Dose 1 TAB; Start 03/16/19 at 17:30 Morphine Sulfate (morphine) 2 mg Q4H PRN IV .PAIN 7-10 Last administered on 03/19/19at 01:02; Admin Dose 2 MG; Start 03/16/19 at 17:30 Zolpidem Tartrate (Ambien) 5 mg QHS PRN PO .INSOMNIA Last administered on 03/18/19at 00:00; Admin Dose 5 MG; Start 03/16/19 at 17:30 Docusate Sodium (Colace) 100 mg Q12H PO Last administered on 03/18/19at 16:51; Admin Dose 100 MG; Start 03/16/19 at 17:30 Bisacodyl (Dulcolax) 5 mg DAILY PRN PO .CONSTIPATION; Start 03/16/19 at 17:30 Miscellaneous Information 1 ea NOTE XX ; Start 03/16/19 at 18:00 Glucose (Glutose) 15 gm Q15M PRN PO DECREASED GLUCOSE; Start 03/16/19 at 18:00 Glucose (Glutose) 22.5 gm Q15M PRN PO DECREASED GLUCOSE; Start 03/16/19 at 18:00 Dextrose (D50w Syringe) 25 ml Q15M PRN IV DECREASED GLUCOSE; Start 03/16/19 at 18:00 Dextrose (D50w Syringe) 50 ml Q15M PRN IV DECREASED GLUCOSE; Start 03/16/19 at 18:00 Glucagon (Glucagen) 1 mg Q15M PRN IM DECREASED GLUCOSE; Start 03/16/19 at 18:00 Glucose (Glutose) 15 gm Q15M PRN BUCCAL DECREASED GLUCOSE; Start 03/16/19 at 18:00 Pantoprazole (Protonix Tab) 40 mg DAILY@06 PO Last administered on 03/19/19at 05:57; Admin Dose 40 MG; Start 03/17/19 at 06:00 Tacrolimus (Prograf) 2 mg AM PO Last administered on 03/19/19at 07:47; Admin Dose 2 MG; Start 03/18/19 at 09:00 Tacrolimus (Prograf) 1 mg HS PO Last administered on 03/18/19at 21:00; Admin Dose 1 MG; Start 03/17/19 at 21:00 Mycophenolate Sodium (Myfortic) 180 mg Q12 PO Last administered on 03/19/19at 07:47; Admin Dose 180 MG; Start 03/17/19 at 21:00 Diagnostic Test (Pha) (Accu-Chek) 1 ea 02 XX ; Start 03/18/19 at 02:00 Acetaminophen/ Hydrocodone Bitart ([place] (5/325)) 2 tab Q4H PRN NGT MODERATE to sever 5-10 Last administered on 03/18/19at 21:05; Admin Dose 2 TAB; Start 03/18/19 at 14:30 Guaifenesin/ Dextromethorphan (Robitussin Dm Liquid Cup) 10 ml Q4H PRN PO COUGH; Start 03/18/19 at 14:30 Hydralazine HCl (Apresoline) 10 mg Q4H PRN IV ELEVATED BLOOD PRESSURE; Start 03/18/19 at 15:30 Metoclopramide HCl (Reglan) 5 mg TID PO Last administered on 03/19/19at 11:54; Admin Dose 5 MG; Start 03/18/19 at 17:00 Simethicone (Mylicon) 80 mg Q6H PRN PO DISTENSION/GAS/BLOATING Last administered on 03/19/19at 01:00; Admin Dose 80 MG; Start 03/18/19 at 17:30 Insulin Aspart (Novolog Insulin Pen) NOVOLOG *MODERATE* ALGORITHM WITH MEALS BEDTIME SC Last administered on 03/19/19at 11:58; Admin Dose 6 UNIT; Start 03/18/19 at 21:00 GENNARO GAO March 19, 2019 13:30
--- NOTE | 2019-03-19 14:06 | CONS ---
Assessment/Plan Assessment/Plan Hospital Course (Demo Recall) 1. ARF 2. SOB w/u in progress 3. Possible uti but seems less likely PMH as of last admit: - Anasarca, improved with IV Lasix - Endocarditis - Dr. Cottrell rec'd call from [facility] 01/15/19 regarding this and plan was to complete cefazolin through 01.29.19 - Completing Augmentin for progressive swelling of distal aspect of right ring finger with x-ray showing further of erosion and lucency involving the distal aspect of the distal phalanx of the right ring finger suspicious for osteomyelitis with improved but slight associated soft tissue swelling. ESR 67. - Hx OM of R 4th digit: swelling with new erosive changes and osteopenia of the underlying R 4th distal phalanx, suggestive of osteomyelitis; wound culture grew Serratia on 03/18/18 and Serratia + CoNS (likely colonizer) on 04/04/18 ; Pt declined amputation. ESR 39 on 03/18/2018. S/p Levaquin x 6 weeks, ESR 60 01/13/19 - Hematoma within the right lateral abdominal wall musculature which has developed since the previous study done 12/13/2018 measuring 7.3 x 4.6 cm in cross diameter and extending an acrylic that dimension approximately 10.7 cm from the level of the superior pole of the [place] right kidney to just inferior to the right iliac crest per CT 01/12/19 - Calcification of the vas deferens with a persistent hydrocele within the scrotum per CT 01/12/19 - Bacteremia d/t MSSA 12/09/2018, repeat blood cx 12/12/18 NGTD - MRSA and K. pneumoniae in urine cx 12/09/2018 - UA was neg for pyuria - Hx mild subtle increased activity within the upper aspect of LUE, nonspecific, on WBC tagged scan on 04/05/2018 - Hx OM of R 3rd fingertip (XR showed periosteal reaction at the tip of R 3rd distal phalanx, suspicious for OM, MRI showed cellulitis of distal R 4th phalanx, without OM) and L 2nd fingertip (XR showed cortical irregularity at the tuft of L 2nd distal phalanx with overlying soft tissue defect, suggesting early OM, MRI showed OM at L 2nd distal phalanx with, cellulitis about L 2nd distal phalanx without drainable fluid collection.) - Hx OM of R 2nd finger s/p amputation at proximal phalanx neck, and h/o OM of L 3rd finger s/p amputation at middle and distal phalanges - Acute on chronic renal failure - Hyperkalemia with metabolic acidosis - slowly improving with sodium bicarb - Hx ESRD, was on HD - S/p renal transplant in 2009 (on tacrolimus, mycophenolate and prednisone), chronic renal insufficiency at baseline - DM - Hgb A1c 10.5% - Hx Juan's esophagus and gastritis s/p EGD on 08/12/2017. No H. pylori on Bx - BLE atherosclerosis - Seen by Vascular Surgery during last admit - Onychomycosis, tinea pedis - Seen by [employer] during last admit - Rheumatoid arthritis - Chronic HCV infection - HTN - Dyslipidemia - Hx polysubstance and IV drug use. 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 psychosis - on Lexapro - Abdominal distention and pain R: Monitor closely off antibiotic S/p Ceftriaxone F/u with all cxs CASE CARE DIRECTED BY MYSELF TO NEURO INTENSIVIST PHYSICIAN YESTERDAY VIA [employer]. PLEASE REFERENCE [employer] LOG Consultation Date/Type/Reason Admit Date/Time March 17, 2019 at 13:23 Initial Consult Date Type of Consult ID Requesting Provider: LUPE KAPLAN MD Date/Time of Note DATE: 03/19/19 TIME: 14:04 Prolonged service time 1hr Exam/Review of Systems Exam Vitals Vital Signs Date Temp Pulse Resp B/P (MAP) Pulse Ox O2 O2 Flow FiO2 Time Delivery Rate 03/19/19 79 12:05 03/19/19 98.0 18 127/69 99 Room Air 11:07 (88) 03/18/19 2.0 22:31 03/16/19 21 15:00 Intake and Output 03/18/19 03/18/19 03/19/19 1515:00 23:00 07:00 IntakeIntake Total 580 ml OutputOutput Total 550 ml BalanceBalance 30 ml Results Result Diagram: 03/19/19 0618 03/19/19 0618 Results 24hrs Laboratory Tests Test 03/18/19 15:33 03/18/19 15:34 03/18/19 16:50 03/18/19 20:59 Sodium Level 136 Potassium Level 5.7 H Chloride Level 110 Carbon Dioxide Level 17 L Anion Gap 9 Blood Urea Nitrogen 63 H Creatinine 3.98 H Est Glomerular 16 L Filtrat Rate mL/min Glucose Level 183 Calcium Level 8.9 Lipase 523 H Procalcitonin 0.53 H White Blood Count 6.0 Red Blood Count 3.02 #L Hemoglobin 9.7 #L Hematocrit 30.0 #L Mean Corpuscular 99.3 Volume Mean Corpuscular 32.1 Hemoglobin Mean Corpuscular 32.3 Hemoglobin Concent Red Cell 14.0 Distribution Width Platelet Count 219 # Mean Platelet Volume 10.4 Immature 0.300 Granulocytes % Neutrophils % 88.2 H Lymphocytes % 7.2 L Monocytes % 3.8 Eosinophils % 0.2 Basophils % 0.3 Nucleated Red Blood 0.0 Cells % Immature 0.020 Granulocytes # Neutrophils # 5.3 Lymphocytes # 0.4 L Monocytes # 0.2 L Eosinophils # 0.0 Basophils # 0.0 Nucleated Red Blood 0.0 Cells # Bedside Glucose 203 138 Test 03/19/19 03:29 03/19/19 06:18 03/19/19 07:46 03/19/19 11:55 Bedside Glucose 154 136 245 H White Blood Count 6.9 Red Blood Count 2.65 L Hemoglobin 8.7 L Hematocrit 26.4 L Mean Corpuscular 99.6 Volume Mean Corpuscular 32.8 Hemoglobin Mean Corpuscular 33.0 Hemoglobin Concent Red Cell 14.1 Distribution Width Platelet Count 168 # Mean Platelet Volume 10.1 Immature 0.400 Granulocytes % Neutrophils % 81.4 H Lymphocytes % 8.6 L Monocytes % 7.8 Eosinophils % 1.2 Basophils % 0.6 Nucleated Red Blood 0.0 Cells % Immature 0.030 Granulocytes # Neutrophils # 5.6 Lymphocytes # 0.6 L Monocytes # 0.5 Eosinophils # 0.1 Basophils # 0.0 Nucleated Red Blood 0.0 Cells # Sodium Level 139 Potassium Level 4.9 Chloride Level 111 H Carbon Dioxide Level 16 L Anion Gap 12 Blood Urea Nitrogen 69 H Creatinine 4.12 H Est Glomerular 15 L Filtrat Rate mL/min Glucose Level 147 Calcium Level 9.0 Lipase 266 Medications Medication Current Medications Prednisone (Prednisone) 5 mg DAILY PO Last administered on 03/19/19at 07:47; Admin Dose 5 MG; Start 03/17/19 at 09:00 IV Flush (NS 3 ml) 3 ml PER PROTOCOL IV ; Start 03/16/19 at 17:30 Ondansetron HCl (Zofran Inj) 4 mg Q6H PRN IV NAUSEA/VOMITING Last administered on 03/17/19at 20:16; Admin Dose 4 MG; Start 03/16/19 at 17:30 Aspirin (Aspirin) 81 mg DAILY PO Last administered on 03/19/19at 07:46; Admin Dose 81 MG; Start 03/17/19 at 09:00 Nitroglycerin (Nitroglycerin (Sl Tab) 0.4 Mg) 1 tab Q5M PRN SL .CHEST PAIN; Start 03/16/19 at 17:30 Acetaminophen (Tylenol Tab) 650 mg Q6H PRN PO .PAIN 1-3 OR TEMP; Start 03/16/19 at 17:30 Acetaminophen/ Hydrocodone Bitart ([place] (5/325)) 1 tab Q6H PRN PO .PAIN 4-6 Last administered on 03/18/19at 09:10; Admin Dose 1 TAB; Start 03/16/19 at 17:30 Morphine Sulfate (morphine) 2 mg Q4H PRN IV .PAIN 7-10 Last administered on 03/19/19at 01:02; Admin Dose 2 MG; Start 03/16/19 at 17:30 Zolpidem Tartrate (Ambien) 5 mg QHS PRN PO .INSOMNIA Last administered on 03/18/19at 00:00; Admin Dose 5 MG; Start 03/16/19 at 17:30 Docusate Sodium (Colace) 100 mg Q12H PO Last administered on 03/18/19at 16:51; Admin Dose 100 MG; Start 03/16/19 at 17:30 Bisacodyl (Dulcolax) 5 mg DAILY PRN PO .CONSTIPATION; Start 03/16/19 at 17:30 Miscellaneous Information 1 ea NOTE XX ; Start 03/16/19 at 18:00 Glucose (Glutose) 15 gm Q15M PRN PO DECREASED GLUCOSE; Start 03/16/19 at 18:00 Glucose (Glutose) 22.5 gm Q15M PRN PO DECREASED GLUCOSE; Start 03/16/19 at 18:00 Dextrose (D50w Syringe) 25 ml Q15M PRN IV DECREASED GLUCOSE; Start 03/16/19 at 18:00 Dextrose (D50w Syringe) 50 ml Q15M PRN IV DECREASED GLUCOSE; Start 03/16/19 at 18:00 Glucagon (Glucagen) 1 mg Q15M PRN IM DECREASED GLUCOSE; Start 03/16/19 at 18:00 Glucose (Glutose) 15 gm Q15M PRN BUCCAL DECREASED GLUCOSE; Start 03/16/19 at 18:00 Pantoprazole (Protonix Tab) 40 mg DAILY@06 PO Last administered on 03/19/19at 05:57; Admin Dose 40 MG; Start 03/17/19 at 06:00 Tacrolimus (Prograf) 2 mg AM PO Last administered on 03/19/19at 07:47; Admin Dose 2 MG; Start 03/18/19 at 09:00 Tacrolimus (Prograf) 1 mg HS PO Last administered on 03/18/19at 21:00; Admin Dose 1 MG; Start 03/17/19 at 21:00 Mycophenolate Sodium (Myfortic) 180 mg Q12 PO Last administered on 03/19/19at 07:47; Admin Dose 180 MG; Start 03/17/19 at 21:00 Diagnostic Test (Pha) (Accu-Chek) 1 ea 02 XX ; Start 03/18/19 at 02:00 Acetaminophen/ Hydrocodone Bitart ([place] (5/325)) 2 tab Q4H PRN NGT MODERATE to sever 5-10 Last administered on 03/18/19at 21:05; Admin Dose 2 TAB; Start 03/18/19 at 14:30 Guaifenesin/ Dextromethorphan (Robitussin Dm Liquid Cup) 10 ml Q4H PRN PO COUGH; Start 03/18/19 at 14:30 Hydralazine HCl (Apresoline) 10 mg Q4H PRN IV ELEVATED BLOOD PRESSURE; Start 03/18/19 at 15:30 Metoclopramide HCl (Reglan) 5 mg TID PO Last administered on 03/19/19at 11:54; Admin Dose 5 MG; Start 03/18/19 at 17:00 Simethicone (Mylicon) 80 mg Q6H PRN PO DISTENSION/GAS/BLOATING Last administered on 03/19/19at 01:00; Admin Dose 80 MG; Start 03/18/19 at 17:30 Insulin Aspart (Novolog Insulin Pen) NOVOLOG *MODERATE* ALGORITHM WITH MEALS BEDTIME SC Last administered on 03/19/19at 11:58; Admin Dose 6 UNIT; Start 03/18/19 at 21:00 Sodium Bicarbonate (Sodium Bicarbonate Tab) 650 mg BID PO ; Start 03/19/19 at 14:00 PARAMJIT COTTRELL MD March 19, 2019 14:06
--- NOTE | 2019-03-19 14:49 | RADRPT ---
Vent Rate: 73 bpm RR Interval: 0 msec MN Interval: 170 msec QRS Duration: 84 msec QT Interval: 408 msec QTC Interval: 449 msec P-R-T [place]: 38 - 77 - -3 degrees Normal sinus rhythm Septal infarct , age undetermined Abnormal ECG Electronically Signed By: [facility]
[2019-03-19] MEDS: NA BICARBONATE 650 MG TAB PO SCH ×2 (15:05→21:14)
[2019-03-19] MEDS: HYDROCODONE/APAP (5/325) TAB NGT PRN ×2 (15:08→21:20)
[2019-03-20] VITALS (11 sets, daily range): BP systolic 70–170; BP diastolic 40–84; PULSE 68–82; RESP 18–20
[2019-03-20] MEDS: ACCU-CHEK XX SCH (02:00)
[2019-03-20] MEDS: PANTOPRAZOLE (EC) 40 MG TAB PO SCH (05:58)
[2019-03-20] MEDS: DOCUSATE SODIUM 100 MG CAP PO SCH ×2 (05:58→16:59)
[2019-03-20] MEDS: HYDROCODONE/APAP (5/325) TAB NGT PRN ×2 (05:59→18:39)
[2019-03-20] MEDS: INSULIN ASPART [NOVOLOG] 3 ML PEN SC SCH ×4 (08:15→20:30)
[2019-03-20] MEDS: MYCOPHENOLATE (SR) 180 MG TAB PO SCH ×2 (08:21→20:31)
[2019-03-20] MEDS: METOCLOPRAMIDE 5 MG TAB PO SCH ×3 (08:21→20:30)
[2019-03-20] MEDS: ASPIRIN 81 MG TAB PO SCH (08:21)
[2019-03-20] MEDS: NA BICARBONATE 650 MG TAB PO SCH ×2 (08:21→20:31)
[2019-03-20] MEDS: predniSONE 5 MG TAB PO SCH (08:22)
[2019-03-20] MEDS: TACROLIMUS 1 MG CAP PO SCH ×2 (08:22→20:31)
--- NOTE | 2019-03-20 09:22 | CONS ---
Assessment/Plan Assessment/Plan Hospital Course (Demo Recall) 1. ARF 2. SOB w/u in progress 3. Possible uti but seems less likely PMH as of last admit: - Anasarca, improved with IV Lasix - Endocarditis - Dr. Olmstead rec'd call from [facility] 01/15/19 regarding this and plan was to complete cefazolin through 01.29.19 - Completing Augmentin for progressive swelling of distal aspect of right ring finger with x-ray showing further of erosion and lucency involving the distal aspect of the distal phalanx of the right ring finger suspicious for osteomyelitis with improved but slight associated soft tissue swelling. ESR 67. - Hx OM of R 4th digit: swelling with new erosive changes and osteopenia of the underlying R 4th distal phalanx, suggestive of osteomyelitis; wound culture grew Serratia on 03/18/18 and Serratia + CoNS (likely colonizer) on 04/04/18 ; Pt d eclined amputation. ESR 39 on 03/18/2018. S/p Levaquin x 6 weeks, ESR 60 01/13/19 - Hematoma within the right lateral abdominal wall musculature which has developed since the previous study done 12/13/2018 measuring 7.3 x 4.6 cm in cross diameter and extending an acrylic that dimension approximately 10.7 cm from the level of the superior pole of the [place] right kidney to just inferior to the right iliac crest per CT 01/12/19 - Calcification of the vas deferens with a persistent hydrocele within the scrotum per CT 01/12/19 - Bacteremia d/t MSSA 12/09/2018, repeat blood cx 12/12/18 NGTD - MRSA and K. pneumoniae in urine cx 12/09/2018 - UA was neg for pyuria - Hx mild subtle increased activity within the upper aspect of LUE, nonspecific, on WBC tagged scan on 04/05/2018 - Hx OM of R 3rd fingertip (XR showed periosteal reaction at the tip of R 3rd distal phalanx, suspicious for OM, MRI showed cellulitis of distal R 4th phalanx, without OM) and L 2nd fingertip (XR showed cortical irregularity at the tuft of L 2nd distal phalanx with overlying soft tissue defect, suggesting early OM, MRI showed OM at L 2nd distal phalanx with, cellulitis about L 2nd distal phalanx without drainable fluid collection.) - Hx OM of R 2nd finger s/p amputation at proximal phalanx neck, and h/o OM of L 3rd finger s/p amputation at middle and distal phalanges - Acute on chronic renal failure - Hyperkalemia with metabolic acidosis - slowly improving with sodium bicarb - Hx ESRD, was on HD - S/p renal transplant in 2009 (on tacrolimus, mycophenolate and prednisone), chronic renal insufficiency at baseline - DM - Hgb A1c 10.5% - Hx Juan's esophagus and gastritis s/p EGD on 08/12/2017. No H. pylori on Bx - BLE atherosclerosis - Seen by Vascular Surgery during last admit - Onychomycosis, tinea pedis - Seen by [employer] during last admit - Rheumatoid arthritis - Chronic HCV infection - HTN - Dyslipidemia - Hx polysubstance and IV drug use. 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 psychosis - on Lexapro - Abdominal distention and pain Recommendations: - Monitor closely off antibiotic; S/p Ceftriaxone - F/u with blood cultures 03/16/19 (NGTD) and 03/17/19 (NGTD) Plan was d/w patient and his RN verbally, and with Dr. Olmstead via [employer] messaging. Thank you Consultation Date/Type/Reason Admit Date/Time March 17, 2019 at 13:23 Initial Consult Date 03/17/19 Type of Consult ID Requesting Provider: LUPE KAPLAN MD Date/Time of Note DATE: 03/20/19 TIME: 09:19 24 HR Interval Summary Free Text/Dictation The patient stated to me "I'm afraid, I don't want to go home, they want to send me home today." He stated "I am the only one taking care of my grandsons and I live alone, they're only 4 and 7, nobody is there with them." When I asked more questions, the patient stated that he does live with his but that she goes to work and his daughter in law works so this is why he cares for the grandsons but that they are not actually alone right now at home. I alerted nsg that the patient may need a rn case management or nursing home social worker to come speak with him regarding this issue. The patient stated "I can barely take care of myself, I can't take care of them like this." RN will notify cm/sw. Detailed Summary Eyes: no complaints ENT: no complaints Respiratory: other (states he awakened around 0500 with wheezing, sob, cough, needed oxygen. States "I am so scared, I'm so scared, I don't want to go home, this happens every night x1mo") Cardiovascular: palpitations (states when he awakened he was having palpitations and tachycardia, states this occurs as well every morning x1mo) Gastrointestinal: no complaints, other (states when he first came in had severe abd pain, states it went away overnight) Genitourinary: no complaints Musculoskeletal: no complaints Skin: bruising (L flank, BUE - states the L flank bruising occurred after coughing a few days ago), skin lesions (LUE fistula site "coming out" ) Neurologic: no complaints Endocrine: no complaints Lymphatic: no complaints Psychological: anxiety Exam/Review of Systems Exam Vitals Vital Signs Date Temp Pulse Resp B/P (MAP) Pulse Ox O2 O2 Flow FiO2 Time Delivery Rate 03/20/19 82 08:16 03/20/19 Nasal 2.0 07:56 Cannula 03/20/19 98.9 20 131/49 96 07:26 (76) 03/16/19 21 15:00 Allergies Coded Allergies magnesium (Unverified Allergy, Intermediate, 03/16/19) NUMBNESS AND HOT FUSHES Intake and Output 03/19/19 03/19/19 03/20/19 1414:59 22:59 06:59 IntakeIntake Total 750 ml OutputOutput Total 350 ml BalanceBalance 400 ml Constitutional: alert, oriented, frail, other (thin) Psych: nl mood/affect, anxiety Head: normocephalic, atraumatic Eyes: nl conjunctiva, nl lids ENMT: nl external ears & nose, nl nasal mucosa & septum, mucosa pink and moist (no thrush noted ) Neck: supple (no swelling ), non-tender Respiratory: normal air movement, diminished breath sounds, wheezing (mild expiratory wheezing noted ) Cardiovascular: regular rate and rhythm, nl pulses, murmurs/extra sounds Gastrointestinal: soft, non-tender, bowel sounds (normoactive ) Genitourinary - Male: other (no f/c) Musculoskeletal: other (old LUE AVF graft site, no ttp, no bruit or thrill. ) Extremities: normal pulses, other (Partial amputation of R 2nd and 3rd fingers and L 2nd and 3rd fingers, R middle finger is open to air with a dry scab noted, no swelling, erythema, or ttp. ) 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: nl mental status, nl speech, nl strength Skin: ecchymosis (Large left flank bruising which is ttp. BUE bruising scat tered. ); No rash or lesions Results Result Diagram: 03/19/1961703/19/19617 Results 24hrs Laboratory Tests Test 03/19/19 11:55 03/19/19 17:07 03/19/19 20:44 03/20/19 02:50 Bedside Glucose 245 H 230 H 72 183 Test 03/20/19 07:04 03/20/19 07:53 Phosphorus Level 4.6 Vitamin D < 12.8 L 1,25-Dihydroxy Bedside Glucose 171 Medications Medication Current Medications Prednisone (Prednisone) 5 mg DAILY PO Last administered on 03/20/19at 08:22; Admin Dose 5 MG; Start 03/17/19 at 09:00 IV Flush (NS 3 ml) 3 ml PER PROTOCOL IV ; Start 03/16/19 at 17:30 Ondansetron HCl (Zofran Inj) 4 mg Q6H PRN IV NAUSEA/VOMITING Last administered on 03/17/19at 20:16; Admin Dose 4 MG; Start 03/16/19 at 17:30 Aspirin (Aspirin) 81 mg DAILY PO Last administered on 03/20/19at 08:21; Admin Dose 81 MG; Start 03/17/19 at 09:00 Nitroglycerin (Nitroglycerin (Sl Tab) 0.4 Mg) 1 tab Q5M PRN SL .CHEST PAIN; Start 03/16/19 at 17:30 Acetaminophen (Tylenol Tab) 650 mg Q6H PRN PO .PAIN 1-3 OR TEMP; Start 03/16/19 at 17:30 Acetaminophen/ Hydrocodone Bitart ([place] (5/325)) 1 tab Q6H PRN PO .PAIN 4-6 Last administered on 03/18/19at 09:10; Admin Dose 1 TAB; Start 03/16/19 at 17:30 Morphine Sulfate (morphine) 2 mg Q4H PRN IV .PAIN 7-10 Last administered on 03/19/19at 01:02; Admin Dose 2 MG; Start 03/16/19 at 17:30 Zolpidem Tartrate (Ambien) 5 mg QHS PRN PO .INSOMNIA Last administered on 03/18/19at 00:00; Admin Dose 5 MG; Start 03/16/19 at 17:30 Docusate Sodium (Colace) 100 mg Q12H PO Last administered on 03/20/19at 05:58; Admin Dose 100 MG; Start 03/16/19 at 17:30 Bisacodyl (Dulcolax) 5 mg DAILY PRN PO .CONSTIPATION; Start 03/16/19 at 17:30 Miscellaneous Information 1 ea NOTE XX ; Start 03/16/19 at 18:00 Glucose (Glutose) 15 gm Q15M PRN PO DECREASED GLUCOSE; Start 03/16/19 at 18:00 Glucose (Glutose) 22.5 gm Q15M PRN PO DECREASED GLUCOSE; Start 03/16/19 at 18:00 Dextrose (D50w Syringe) 25 ml Q15M PRN IV DECREASED GLUCOSE; Start 03/16/19 at 18:00 Dextrose (D50w Syringe) 50 ml Q15M PRN IV DECREASED GLUCOSE; Start 03/16/19 at 18:00 Glucagon (Glucagen) 1 mg Q15M PRN IM DECREASED GLUCOSE; Start 03/16/19 at 18:00 Glucose (Glutose) 15 gm Q15M PRN BUCCAL DECREASED GLUCOSE; Start 03/16/19 at 18:00 Pantoprazole (Protonix Tab) 40 mg DAILY@06 PO Last administered on 03/20/19at 05:58; Admin Dose 40 MG; Start 03/17/19 at 06:00 Tacrolimus (Prograf) 2 mg AM PO Last administered on 03/20/19at 08:22; Admin Dose 2 MG; Start 03/18/19 at 09:00 Tacrolimus (Prograf) 1 mg HS PO Last administered on 03/19/19at 21:13; Admin Dose 1 MG; Start 03/17/19 at 21:00 Mycophenolate Sodium (Myfortic) 180 mg Q12 PO Last administered on 03/20/19at 08:21; Admin Dose 180 MG; Start 03/17/19 at 21:00 Diagnostic Test (Pha) (Accu-Chek) 1 ea 02 XX ; Start 03/18/19 at 02:00 Acetaminophen/ Hydrocodone Bitart ([place] (5/325)) 2 tab Q4H PRN NGT MODERATE to sever 5-10 Last administered on 03/20/19at 05:59; Admin Dose 2 TAB; Start 03/18/19 at 14:30 Guaifenesin/ Dextromethorphan (Robitussin Dm Liquid Cup) 10 ml Q4H PRN PO COUGH; Start 03/18/19 at 14:30 Hydralazine HCl (Apresoline) 10 mg Q4H PRN IV ELEVATED BLOOD PRESSURE; Start 03/18/19 at 15:30 Metoclopramide HCl (Reglan) 5 mg TID PO Last administered on 03/20/19at 08:21; Admin Dose 5 MG; Start 03/18/19 at 17:00 Simethicone (Mylicon) 80 mg Q6H PRN PO DISTENSION/GAS/BLOATING Last administered on 03/19/19at 01:00; Admin Dose 80 MG; Start 03/18/19 at 17:30 Insulin Aspart (Novolog Insulin Pen) NOVOLOG *MODERATE* ALGORITHM WITH MEALS B EDTIME SC Last administered on 03/20/19 08:15; Admin Dose 2 UNIT; Start 03/18/19 at 21:00 Sodium Bicarbonate (Sodium Bicarbonate Tab) 650 mg BID PO Last administered on 03/20/19 08:21; Admin Dose 650 MG; Start 03/19/19 at 14:00 MAHAD MAHARAJ NP March 20, 2019 09:22
--- NOTE | 2019-03-20 10:50 | CONS ---
Assessment/Plan Assessment/Plan Hospital Course (Demo Recall) 1. Hyperkalemia, could be secondary to worsening renal failure, resolved. enal US showed hydronephrosis of transplant kidney, acute 2. Abdominal pain with chills. NO fever 4. Acute on chronic renal failure. The patient had chronic kidney disease IV in the past with a creatinine of 3.2 to 3.4. It could be exacerbated by acute hemodynamic changes with sepsis. vs hydronephrosis vs ATN vs progression of disease, pt has underlying DM nephropathy 5. Elevated lipase.? Pancreatitis 6. Urinary tract infection. 7. Pneumonia. 8. Anemia. 9. History of hepatitis C. 10. History of donor renal transplantation. 11. metabolic acidosis likely secondary to renal failure 12. Non compliance He had refused p.o. Kayexalate and Veltassa 13, severe acidosis 14. vit d deficiency Assessment/Plan (Daily) - cw prograft 2 mg/1, mycophenolate and cw prednisone. - start ergocalciferol 50 000 u weekly -check cr. daily, increased today -c/w Bicarb tabs - urology consult appreciated continue with bladder emptying - renally dose al meds -phos level normal -hypoglycemic control Consultation Date/Type/Reason Admit Date/Time March 17, 2019 at 13:23 Initial Consult Date 03/17/19 Type of Consult nephrology Requesting Provider: LUPE KAPLAN MD Date/Time of Note DATE: 03/20/19 TIME: 10:50 24 HR Interval Summary Free Text/Dictation ill appearing Exam/Review of Systems Exam Vitals Vital Signs Date Temp Pulse Resp B/P (MAP) Pulse Ox O2 O2 Flow FiO2 Time Delivery Rate 03/20/19 82 08:16 03/20/19 Nasal 2.0 07:56 Cannula 03/20/19 98.9 20 131/49 96 07:26 (76) 03/16/19 21 15:00 Intake and Output 03/19/19 03/19/19 03/20/19 1515:00 23:00 07:00 IntakeIntake Total 750 ml OutputOutput Total 350 ml BalanceBalance 400 ml Constitutional: alert, oriented Head: normocephalic Neck: supple Respiratory: diminished breath sounds Cardiovascular: regular rate and rhythm Gastrointestinal: soft Musculoskeletal: other (left flank hematoma) Skin: other (scabs, left arm non functin fistula) Results Result Diagram: 03/19/19 0618 03/19/19 0618 Results 24hrs Laboratory Tests Test 03/19/19 11:55 03/19/19 17:07 03/19/19 20:44 03/20/19 02:50 Bedside Glucose 245 H 230 H 72 183 Test 03/20/19 07:04 03/20/19 07:53 Phosphorus Level 4.6 Vitamin D < 12.8 L 1,25-Dihydroxy Bedside Glucose 171 Medications Medication Current Medications Prednisone (Prednisone) 5 mg DAILY PO Last administered on 03/20/19 08:22; Admin Dose 5 MG; Start 03/17/19 at 09:00 IV Flush (NS 3 ml) 3 ml PER PROTOCOL IV ; Start 03/16/19 at 17:30 Ondansetron HCl (Zofran Inj) 4 mg Q6H PRN IV NAUSEA/VOMITING Last administered on 03/17/19at 20:16; Admin Dose 4 MG; Start 03/16/19 at 17:30 Aspirin (Aspirin) 81 mg DAILY PO Last administered on 03/20/19 08:21; Admin Dose 81 MG; Start 03/17/19 at 09:00 Nitroglycerin (Nitroglycerin (Sl Tab) 0.4 Mg) 1 tab Q5M PRN SL .CHEST PAIN; Start 03/16/19 at 17:30 Acetaminophen (Tylenol Tab) 650 mg Q6H PRN PO .PAIN 1-3 OR TEMP; Start 03/16/19 at 17:30 Acetaminophen/ Hydrocodone Bitart ([place] (5/325)) 1 tab Q6H PRN PO .PAIN 4-6 Last administered on 03/18/19at 09:10; Admin Dose 1 TAB; Start 03/16/19 at 17:30 Morphine Sulfate (morphine) 2 mg Q4H PRN IV .PAIN 7-10 Last administered on 03/19/19at 01:02; Admin Dose 2 MG; Start 03/16/19 at 17:30 Zolpidem Tartrate (Ambien) 5 mg QHS PRN PO .INSOMNIA Last administered on 03/18/19at 00:00; Admin Dose 5 MG; Start 03/16/19 at 17:30 Docusate Sodium (Colace) 100 mg Q12H PO Last administered on 5/18/19at 05:58; Admin Dose 100 MG; Start 03/16/19 at 17:30 Bisacodyl (Dulcolax) 5 mg DAILY PRN PO .CONSTIPATION; Start 03/16/19 at 17:30 Miscellaneous Information 1 ea NOTE XX ; Start 03/16/19 at 18:00 Glucose (Glutose) 15 gm Q15M PRN PO DECREASED GLUCOSE; Start 03/16/19 at 18:00 Glucose (Glutose) 22.5 gm Q15M PRN PO DECREASED GLUCOSE; Start 03/16/19 at 18:00 Dextrose (D50w Syringe) 25 ml Q15M PRN IV DECREASED GLUCOSE; Start 03/16/19 at 18:00 Dextrose (D50w Syringe) 50 ml Q15M PRN IV DECREASED GLUCOSE; Start 03/16/19 at 18:00 Glucagon (Glucagen) 1 mg Q15M PRN IM DECREASED GLUCOSE; Start 03/16/19 at 18:00 Glucose (Glutose) 15 gm Q15M PRN BUCCAL DECREASED GLUCOSE; Start 03/16/19 at 18:00 Pantoprazole (Protonix Tab) 40 mg DAILY@06 PO Last administered on 03/20/19at 05:58; Admin Dose 40 MG; Start 03/17/19 at 06:00 Tacrolimus (Prograf) 2 mg AM PO Last administered on 03/20/19at 08:22; Admin Dose 2 MG; Start 03/18/19 at 09:00 Tacrolimus (Prograf) 1 mg HS PO Last administered on 03/19/19at 21:13; Admin Dose 1 MG; Start 03/17/19 at 21:00 Mycophenolate Sodium (Myfortic) 180 mg Q12 PO Last administered on 03/20/19at 08:21; Admin Dose 180 MG; Start 03/17/19 at 21:00 Diagnostic Test (Pha) (Accu-Chek) 1 ea 02 XX ; Start 03/18/19 at 02:00 Acetaminophen/ Hydrocodone Bitart ([place] (5/325)) 2 tab Q4H PRN NGT MODERATE to sever 5-10 Last administered on 03/20/19at 05:59; Admin Dose 2 TAB; Start 03/18/19 at 14:30 Guaifenesin/ Dextromethorphan (Robitussin Dm Liquid Cup) 10 ml Q4H PRN PO COUGH; Start 03/18/19 at 14:30 Hydralazine HCl (Apresoline) 10 mg Q4H PRN IV ELEVATED BLOOD PRESSURE; Start 03/18/19 at 15:30 Metoclopramide HCl (Reglan) 5 mg TID PO Last administered on 03/20/19at 08:21; Admin Dose 5 MG; Start 03/18/19 at 17:00 Simethicone (Mylicon) 80 mg Q6H PRN PO DISTENSION/GAS/BLOATING Last administered on 03/19/19at 01:00; Admin Dose 80 MG; Start 03/18/19 at 17:30 Insulin Aspart (Novolog Insulin Pen) NOVOLOG *MODERATE* ALGORITHM WITH MEALS BEDTIME SC Last administered on 03/20/19 08:15; Admin Dose 2 UNIT; Start 03/18/19 at 21:00 Sodium Bicarbonate (Sodium Bicarbonate Tab) 650 mg BID PO Last administered on 03/20/19at 08:21; Admin Dose 650 MG; Start 03/19/19 at 14:00 GENNARO GAO March 20, 2019 10:50
--- NOTE | 2019-03-20 11:25 | PN ---
Date/Time of Note Date/Time of Note DATE: 03/20/19 TIME: 11:24 Assessment/Plan VTE Prophylaxis Risk score (from Ns)>0 risk: 2 SCD applied (from Ns): Yes Pharmacological prophylaxis: LMWH Lines/Catheters IV [facility]from [facility] Mid Line Urinary Cath still in place: No Assessment/Plan Hospital Course -Possible sepsis secondary to possible pneumonia and UTI, follow-up on urine and blood culture, continue Rocephin. Dr. Olmstead is following in infection disease consultation. -Acute renal failure on chronic kidney disease stage IV, status post cadaveric kidney transplant [place] [address]. Dr[address] Allen is following in nephrology consultation. -Hyperkalemia, status post Kayexalate -UTI per UA, continue Rocephin -Moderate hydronephrosis, Dr. Noguera is following in urology consultation. -Possible pancreatitis, monitor lipase -Diabetes mellitus type 2 with diabetic neuropathy. Continue Tradjenta, Lantus and NovoLog. -Hypertension. -Anemia -Chronic HCV infection -Rheumatoid arthritis -History of polysubstance and IV drug use Result Diagram: 03/19/1961703/19/1918 Results 24hrs Laboratory Tests Test 03/19/19 11:55 03/19/19 17:07 03/19/19 20:44 03/20/19 02:50 Bedside Glucose 245 H 230 H 72 183 Test 03/20/19 07:04 03/20/19 07:53 Phosphorus Level 4.6 Vitamin D < 12.8 L 1,25-Dihydroxy Bedside Glucose 171 Subjective 24 Hr Interval Summary Free Text/Dictation Patient complain of shortness of breath and pleuritic chest pain Exam/Review of Systems Exam Vitals Vital Signs Date Temp Pulse Resp B/P (MAP) Pulse Ox O2 O2 Flow FiO2 Time Delivery Rate 03/20/19 98.5 72 18 128/58 96 11:04 (81) 03/20/19 Nasal 2.0 07:56 Cannula 03/16/19 21 15:00 Intake and Output 03/19/19 03/19/19 03/20/19 1515:00 23:00 07:00 IntakeIntake Total 750 ml OutputOutput Total 350 ml BalanceBalance 400 ml Constitutional: well developed Head: normocephalic, atraumatic Neck: supple Respiratory: diminished breath sounds Cardiovascular: regular rate and rhythm Gastrointestinal: soft, non-tender Extremities: normal pulses Results Results 24hrs Laboratory Tests Test 03/19/19 11:55 03/19/19 17:07 03/19/19 20:44 03/20/19 02:50 Bedside Glucose 245 H 230 H 72 183 Test 03/20/19 07:04 03/20/19 07:53 Phosphorus Level 4.6 Vitamin D < 12.8 L 1,25-Dihydroxy Bedside Glucose 171 Medications Medication Current Medications Prednisone (Prednisone) 5 mg DAILY PO Last administered on 03/20/19 08:22; Admin Dose 5 MG; Start 03/17/19 at 09:00 IV Flush (NS 3 ml) 3 ml PER PROTOCOL IV ; Start 03/16/19 at 17:30 Ondansetron HCl (Zofran Inj) 4 mg Q6H PRN IV NAUSEA/VOMITING Last administered on 03/17/19 20:16; Admin Dose 4 MG; Start 03/16/19 at 17:30 Aspirin (Aspirin) 81 mg DAILY PO Last administered on 03/20/19 08:21; Admin Dose 81 MG; Start 03/17/19 at 09:00 Nitroglycerin (Nitroglycerin (Sl Tab) 0.4 Mg) 1 tab Q5M PRN SL .CHEST PAIN; Start 03/16/19 at 17:30 Acetaminophen (Tylenol Tab) 650 mg Q6H PRN PO .PAIN 1-3 OR TEMP; Start 03/16/19 at 17:30 Acetaminophen/ Hydrocodone Bitart ([place] (5/325)) 1 tab Q6H PRN PO .PAIN 4-6 Last administered on 03/18/19at 09:10; Admin Dose 1 TAB; Start 03/16/19 at 17:30 Morphine Sulfate (morphine) 2 mg Q4H PRN IV .PAIN 7-10 Last administered on 03/19/19 01:02; Admin Dose 2 MG; Start 03/16/19 at 17:30 Zolpidem Tartrate (Ambien) 5 mg QHS PRN PO .INSOMNIA Last administered on 03/18/19 00:00; Admin Dose 5 MG; Start 03/16/19 at 17:30 Docusate Sodium (Colace) 100 mg Q12H PO Last administered on 03/20/19at 05:58; Admin Dose 100 MG; Start 03/16/19 at 17:30 Bisacodyl (Dulcolax) 5 mg DAILY PRN PO .CONSTIPATION; Start 03/16/19 at 17:30 Miscellaneous Information 1 ea NOTE XX ; Start 03/16/19 at 18:00 Glucose (Glutose) 15 gm Q15M PRN PO DECREASED GLUCOSE; Start 03/16/19 at 18:00 Glucose (Glutose) 22.5 gm Q15M PRN PO DECREASED GLUCOSE; Start 03/16/19 at 18:00 Dextrose (D50w Syringe) 25 ml Q15M PRN IV DECREASED GLUCOSE; Start 03/16/19 at 18:00 Dextrose (D50w Syringe) 50 ml Q15M PRN IV DECREASED GLUCOSE; Start 03/16/19 at 18:00 Glucagon (Glucagen) 1 mg Q15M PRN IM DECREASED GLUCOSE; Start 03/16/19 at 18:00 Glucose (Glutose) 15 gm Q15M PRN BUCCAL DECREASED GLUCOSE; Start 03/16/19 at 18:00 Pantoprazole (Protonix Tab) 40 mg DAILY@06 PO Last administered on 03/20/19at 05:58; Admin Dose 40 MG; Start 03/17/19 at 06:00 Tacrolimus (Prograf) 2 mg AM PO Last administered on 03/20/19at 08:22; Admin Dose 2 MG; Start 03/18/19 at 09:00 Tacrolimus (Prograf) 1 mg HS PO Last administered on 03/19/19at 21:13; Admin Dose 1 MG; Start 03/17/19 at 21:00 Mycophenolate Sodium (Myfortic) 180 mg Q12 PO Last administered on 03/20/19at 08:21; Admin Dose 180 MG; Start 03/17/19 at 21:00 Diagnostic Test (Pha) (Accu-Chek) 1 ea 02 XX ; Start 03/18/19 at 02:00 Acetaminophen/ Hydrocodone Bitart ([place] (5/325)) 2 tab Q4H PRN NGT MODERATE to sever 5-10 Last administered on 03/20/19at 05:59; Admin Dose 2 TAB; Start 03/18/19 at 14:30 Guaifenesin/ Dextromethorphan (Robitussin Dm Liquid Cup) 10 ml Q4H PRN PO COUGH; Start 03/18/19 at 14:30 Hydralazine HCl (Apresoline) 10 mg Q4H PRN IV ELEVATED BLOOD PRESSURE; Start 03/18/19 at 15:30 Metoclopramide HCl (Reglan) 5 mg TID PO Last administered on 03/20/19at 08:21; Admin Dose 5 MG; Start 03/18/19 at 17:00 Simethicone (Mylicon) 80 mg Q6H PRN PO DISTENSION/GAS/BLOATING Last administe red on 03/19/19at 01:00; Admin Dose 80 MG; Start 03/18/19 at 17:30 Insulin Aspart (Novolog Insulin Pen) NOVOLOG *MODERATE* ALGORITHM WITH MEALS BEDTIME SC Last administered on 03/20/19at 08:15; Admin Dose 2 UNIT; Start 03/18/19 at 21:00 Sodium Bicarbonate (Sodium Bicarbonate Tab) 650 mg BID PO Last administered on 03/20/19 08:21; Admin Dose 650 MG; Start 03/19/19 at 14:00 Ergocalciferol (Drisdol) 50,000 unit [place]@09 PO ; Start 03/21/19 at 09:00 ROJAS BYRD March 20, 2019 11:25
[2019-03-20] MEDS: HYDROCODONE/APAP (5/325) TAB PO PRN (12:30)
[2019-03-21] VITALS (12 sets, daily range): BP systolic 120–160; BP diastolic 56–94; PULSE 65–88; RESP 16–18
[2019-03-21] MEDS: ACCU-CHEK XX SCH (02:00)
[2019-03-21] MEDS: HYDROCODONE/APAP (5/325) TAB PO PRN ×4 (03:24→22:08)
[2019-03-21] MEDS: PANTOPRAZOLE (EC) 40 MG TAB PO SCH (05:26)
[2019-03-21] MEDS: DOCUSATE SODIUM 100 MG CAP PO SCH ×2 (05:26→17:01)
--- NOTE | 2019-03-21 06:43 | EN ---
Date/Time of Note Date/Time of Note DATE: 03/21/19 TIME: 06:42 Event Note Medicine Medicine Event Note EMR reviewed. I coordinated and directed care with CHECKER CASHIER yesterday via Tele[employer]. Please reference telemediq logs. I will review and direct care today. low tacrolimus level noted. PARAMJIT COTTRELL MD March 21, 2019 06:43
[2019-03-21] MEDS: INSULIN ASPART [NOVOLOG] 3 ML PEN SC SCH ×4 (07:55→20:32)
[2019-03-21] MEDS: predniSONE 5 MG TAB PO SCH (09:54)
[2019-03-21] MEDS: ERGOCALCIFEROL 50,000 UNIT CAP PO SCH (09:54)
[2019-03-21] MEDS: TACROLIMUS 1 MG CAP PO SCH ×2 (09:54→20:23)
[2019-03-21] MEDS: NA BICARBONATE 650 MG TAB PO SCH ×2 (09:54→20:22)
[2019-03-21] MEDS: MYCOPHENOLATE (SR) 180 MG TAB PO SCH ×2 (09:54→20:22)
[2019-03-21] MEDS: ASPIRIN 81 MG TAB PO SCH (09:54)
[2019-03-21] MEDS: METOCLOPRAMIDE 5 MG TAB PO SCH ×3 (09:54→20:23)
--- NOTE | 2019-03-21 10:52 | CONS ---
Assessment/Plan Assessment/Plan Assessment/Plan (Daily) 1. ARF 2. SOB w/u in progress 3. Possible uti but seems less likely PMH as of last admit: - Anasarca, improved with IV Lasix - Endocarditis - Dr. Olmstead rec'd call from [facility] 01/15/19 regarding this and plan was to complete cefazolin through 01.29.19 - Completing Augmentin for progressive swelling of distal aspect of right ring finger with x-ray showing further of erosion and lucency involving the distal aspect of the distal phalanx of the right ring finger suspicious for osteomyelitis with improved but slight associated soft tissue swelling. ESR 67. - Hx OM of R 4th digit: swelling with new erosive changes and osteopenia of the underlying R 4th distal phalanx, suggestive of osteomyelitis; wound culture grew Serratia on 03/18/18 and Serratia + CoNS (likely colonizer) on 04/04/18 ; Pt declined amputation. ESR 39 on 03/18/2018. S/p Levaquin x 6 weeks, ESR 60 01/13/19 - Hematoma within the right lateral abdominal wall musculature which has developed since the previous study done 12/13/2018 measuring 7.3 x 4.6 cm in cross diameter and extending an acrylic that dimension approximately 10.7 cm from the level of the superior pole of the [place] right kidney to just inferior to the right iliac crest per CT 01/12/19 - Calcification of the vas deferens with a persistent hydrocele within the scro xiao per CT 01/12/19 - Bacteremia d/t MSSA 12/09/2018, repeat blood cx 12/12/18 NGTD - MRSA and K. pneumoniae in urine cx 12/09/2018 - UA was neg for pyuria - Hx mild subtle increased activity within the upper aspect of LUE, nonspecific, on WBC tagged scan on 04/05/2018 - Hx OM of R 3rd fingertip (XR showed periosteal reaction at the tip of R 3rd distal phalanx, suspicious for OM, MRI showed cellulitis of distal R 4th phalanx, without OM) and L 2nd fingertip (XR showed cortical irregularity at the tuft of L 2nd distal phalanx with overlying soft tissue defect, suggesting early OM, MRI showed OM at L 2nd distal phalanx with, cellulitis about L 2nd distal phalanx without drainable fluid collection.) - Hx OM of R 2nd finger s/p amputation at proximal phalanx neck, and h/o OM of L 3rd finger s/p amputation at middle and distal phalanges - Acute on chronic renal failure - Hyperkalemia with metabolic acidosis - slowly improving with sodium bicarb - Hx ESRD, was on HD - S/p renal transplant in 2009 (on tacrolimus, mycophenolate and prednisone), chronic renal insufficiency at baseline - DM - Hgb A1c 10.5% - Hx Juan's esophagus and gastritis s/p EGD on 08/12/2017. No H. pylori on Bx - BLE atherosclerosis - Seen by Vascular Surgery during last admit - Onychomycosis, tinea pedis - Seen by Therapy Tech during last admit - Rheumatoid arthritis - Chronic HCV infection - HTN - Dyslipidemia - Hx polysubstance and IV drug use. 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 psychosis - on Lexapro - Abdominal distention and pain Recommendations: - Monitor closely off antibiotic; S/p Ceftriaxone - F/u with blood cultures 03/16/19 (NGTD) and 03/17/19 (NGTD) Plan was d/w patient and his RN verbally, and with Dr. Olmstead via [employer] messaging. Thank you Consultation Date/Type/Reason Admit Date/Time March 17, 2019 at 13:23 Initial Consult Date 03/17/19 Type of Consult ID Reason for Consultation uti Requesting Provider: LUPE KAPLAN MD Date/Time of Note DATE: 03/21/19 TIME: 10:51 24 HR Interval Summary Constitutional: requiring O2, other (generelized weakness) Detailed Summary Eyes: no complaints ENT: no complaints Respiratory: no complaints Cardiovascular: no complaints Gastrointestinal: no complaints Genitourinary: no complaints Exam/Review of Systems Exam Vitals Vital Signs Date Temp Pulse Resp B/P (MAP) Pulse Ox O2 O2 Flow FiO2 Time Delivery Rate 03/21/19 98.7 73 16 131/59 98 Room Air 08:05 (83) 03/21/19 4.0 03:53 Intake and Output 03/20/19 03/20/19 03/21/19 1515:00 23:00 07:00 IntakeIntake Total 800 ml 500 ml OutputOutput Total 950 ml 550 ml BalanceBalance -150 ml -50 ml Constitutional: alert, frail Results Result Diagram: 03/19/19 0618 03/21/19 0548 Results 24hrs Laboratory Tests Test 03/20/19 11:56 03/20/19 17:01 03/20/19 20:21 03/21/19 05:48 Bedside Glucose 238 H 242 H 133 Sodium Level 134 L Potassium Level 5.4 H Chloride Level 108 Carbon Dioxide Level 20 L Anion Gap 6 Blood Urea Nitrogen 67 H Creatinine 3.76 H Est Glomerular 17 L Filtrat Rate mL/min Glucose Level 144 Calcium Level 8.4 Medications Medication Current Medications Prednisone (Prednisone) 5 mg DAILY PO Last administered on 03/21/19 09:54; Admin Dose 5 MG; Start 03/17/19 at 09:00 IV Flush (NS 3 ml) 3 ml PER PROTOCOL IV ; Start 03/16/19 at 17:30 Ondansetron HCl (Zofran Inj) 4 mg Q6H PRN IV NAUSEA/VOMITING Last administered on 03/17/19at 20:16; Admin Dose 4 MG; Start 03/16/19 at 17:30 Aspirin (Aspirin) 81 mg DAILY PO Last administered on 03/21/19 09:54; Admin Dose 81 MG; Start 03/17/19 at 09:00 Nitroglycerin (Nitroglycerin (Sl Tab) 0.4 Mg) 1 tab Q5M PRN SL .CHEST PAIN; Start 03/16/19 at 17:30 Acetaminophen (Tylenol Tab) 650 mg Q6H PRN PO .PAIN 1-3 OR TEMP; Start 03/16/19 at 17:30 Morphine Sulfate (morphine) 2 mg Q4H PRN IV .PAIN 7-10 Last administered on 03/19/19at 01:02; Admin Dose 2 MG; Start 03/16/19 at 17:30 Zolpidem Tartrate (Ambien) 5 mg QHS PRN PO .INSOMNIA Last administered on 03/03 00:00; Admin Dose 5 MG; Start 03/16/19 at 17:30 Docusate Sodium (Colace) 100 mg Q12H PO Last administered on 03/21/19at 05:26; Admin Dose 100 MG; Start 03/16/19 at 17:30 Bisacodyl (Dulcolax) 5 mg DAILY PRN PO .CONSTIPATION; Start 03/16/19 at 17:30 Miscellaneous Information 1 ea NOTE XX ; Start 03/16/19 at 18:00 Glucose (Glutose) 15 gm Q15M PRN PO DECREASED GLUCOSE; Start 03/16/19 at 18:00 Glucose (Glutose) 22.5 gm Q15M PRN PO DECREASED GLUCOSE; Start 03/16/19 at 18:00 Dextrose (D50w Syringe) 25 ml Q15M PRN IV DECREASED GLUCOSE; Start 03/16/19 at 18:00 Dextrose (D50w Syringe) 50 ml Q15M PRN IV DECREASED GLUCOSE; Start 03/16/19 at 18:00 Glucagon (Glucagen) 1 mg Q15M PRN IM DECREASED GLUCOSE; Start 03/16/19 at 18:00 Glucose (Glutose) 15 gm Q15M PRN BUCCAL DECREASED GLUCOSE; Start 03/16/19 at 18:00 Pantoprazole (Protonix Tab) 40 mg DAILY@06 PO Last administered on 03/21/19at 05 :26; Admin Dose 40 MG; Start 03/17/19 at 06:00 Tacrolimus (Prograf) 2 mg AM PO Last administered on 03/21/19at 09:54; Admin Dose 2 MG; Start 03/18/19 at 09:00 Tacrolimus (Prograf) 1 mg HS PO Last administered on 03/20/19at 20:31; Admin Dose 1 MG; Start 03/17/19 at 21:00 Mycophenolate Sodium (Myfortic) 180 mg Q12 PO Last administered on 03/21/19at 09:54; Admin Dose 180 MG; Start 03/17/19 at 21:00 Diagnostic Test (Pha) (Accu-Chek) 1 ea 02 XX ; Start 03/18/19 at 02:00 Guaifenesin/ Dextromethorphan (Robitussin Dm Liquid Cup) 10 ml Q4H PRN PO COUGH; Start 03/18/19 at 14:30 Hydralazine HCl (Apresoline) 10 mg Q4H PRN IV ELEVATED BLOOD PRESSURE; Start 03/18/19 at 15:30 Metoclopramide HCl (Reglan) 5 mg TID PO Last administered on 03/21/19at 09:54; Admin Dose 5 MG; Start 03/18/19 at 17:00 Simethicone (Mylicon) 80 mg Q6H PRN PO DISTENSION/GAS/BLOATING Last administered on 03/19/19 01:00; Admin Dose 80 MG; Start 03/18/19 at 17:30 Insulin Aspart (Novolog Insulin Pen) NOVOLOG *MODERATE* ALGORITHM WITH MEALS BEDTIME SC Last administered on 03/20/19 18:01; Admin Dose 6 UNIT; Start 03/18/19 at 21:00 Sodium Bicarbonate (Sodium Bicarbonate Tab) 650 mg BID PO Last administered on 03/21/19 09:54; Admin Dose 650 MG; Start 03/19/19 at 14:00 Ergocalciferol (Drisdol) 50,000 unit [place]@09 PO Last administered on 03/21/19 09:54; Admin Dose 50,000 UNIT; Start 03/21/19 at 09:00 Acetaminophen/ Hydrocodone Bitart ([place] (5/325)) 2 tab Q4H PRN PO MODERATE to sever 5-10 Last administered on 03/21/19 09:54; Admin Dose 2 TAB; Start 03/20/19 at 22:30 EILEEN COBURN March 21, 2019 10:52
--- NOTE | 2019-03-21 11:47 | PN ---
Date/Time of Note Date/Time of Note DATE: 03/21/19 TIME: 11:46 Assessment/Plan VTE Prophylaxis Risk score (from Ns)>0 risk: 1 SCD applied (from [facility]): No SCD contraindicated: other Pharmacological prophylaxis: LMWH Lines/Catheters IV Catheter Type (from [facility] Mid Line Urinary Cath still in place: No Assessment/Plan Hospital Course -Possible sepsis secondary to possible pneumonia and UTI, follow-up on urine and blood culture, continue Rocephin. Dr. Olmstead is following in infection disease consultation. -Acute renal failure on chronic kidney disease stage IV, status post cadaveric kidney transplant [place] [address]. Dr[address] Allen is following in nephrology consultation. -Hyperkalemia, status post Kayexalate -UTI per UA, continue Rocephin -Moderate hydronephrosis, Dr. Noguera is following in urology consultation. -Possible pancreatitis, monitor lipase -Diabetes mellitus type 2 with diabetic neuropathy. Continue Tradjenta, Lantus and NovoLog. -Hypertension. -Anemia -Chronic HCV infection -Rheumatoid arthritis -History of polysubstance and IV drug use Result Diagram: 03/19/19 0618 03/21/19 0548 Results 24hrs Laboratory Tests Test 03/20/19 11:56 03/20/19 17:01 03/20/19 20:21 03/21/19 05:48 Bedside Glucose 238 H 242 H 133 Sodium Level 134 L Potassium Level 5.4 H Chloride Level 108 Carbon Dioxide Level 20 L Anion Gap 6 Blood Urea Nitrogen 67 H Creatinine 3.76 H Est Glomerular 17 L Filtrat Rate mL/min Glucose Level 144 Calcium Level 8.4 Subjective 24 Hr Interval Summary Free Text/Dictation Patient has leg pain intermittently Exam/Review of Systems Exam Vitals Vital Signs Date Temp Pulse Resp B/P (MAP) Pulse Ox O2 O2 Flow FiO2 Time Delivery Rate 03/21/19 98.0 74 16 141/61 100 Nasal 4.0 11:03 (87) Cannula Intake and Output 03/20/19 03/20/19 03/21/19 1515:00 23:00 07:00 IntakeIntake Total 800 ml 500 ml OutputOutput Total 950 ml 550 ml BalanceBalance -150 ml -50 ml Constitutional: well developed Head: normocephalic, atraumatic Neck: supple Respiratory: clear to auscultation Cardiovascular: regular rate and rhythm Gastrointestinal: soft, non-tender Extremities: normal pulses Results Results 24hrs Laboratory Tests Test 03/20/19 11:56 03/20/19 17:01 03/20/19 20:21 03/21/19 05:48 Bedside Glucose 238 H 242 H 133 Sodium Level 134 L Potassium Level 5.4 H Chloride Level 108 Carbon Dioxide Level 20 L Anion Gap 6 Blood Urea Nitrogen 67 H Creatinine 3.76 H Est Glomerular 17 L Filtrat Rate mL/min Glucose Level 144 Calcium Level 8.4 Medications Medication Current Medications Prednisone (Prednisone) 5 mg DAILY PO Last administered on 03/21/19 09:54; Admin Dose 5 MG; Start 03/17/19 at 09:00 IV Flush (NS 3 ml) 3 ml PER PROTOCOL IV ; Start 03/16/19 at 17:30 Ondansetron HCl (Zofran Inj) 4 mg Q6H PRN IV NAUSEA/VOMITING Last administered on 03/17/19at 20:16; Admin Dose 4 MG; Start 03/16/19 at 17:30 Aspirin (Aspirin) 81 mg DAILY PO Last administered on 03/21/19 09:54; Admin Dose 81 MG; Start 03/17/19 at 09:00 Nitroglycerin (Nitroglycerin (Sl Tab) 0.4 Mg) 1 tab Q5M PRN SL .CHEST PAIN; Start 03/16/19 at 17:30 Acetaminophen (Tylenol Tab) 650 mg Q6H PRN PO .PAIN 1-3 OR TEMP; Start 03/16/19 at 17:30 Morphine Sulfate (morphine) 2 mg Q4H PRN IV .PAIN 7-10 Last administered on 03/19/19at 01:02; Admin Dose 2 MG; Start 03/16/19 at 17:30 Zolpidem Tartrate (Ambien) 5 mg QHS PRN PO .INSOMNIA Last administered on 03/18/19at 00:00; Admin Dose 5 MG; Start 03/16/19 at 17:30 Docusate Sodium (Colace) 100 mg Q12H PO Last administered on 03/21/19 05:26; Admin Dose 100 MG; Start 03/16/19 at 17:30 Bisacodyl (Dulcolax) 5 mg DAILY PRN PO .CONSTIPATION; Start 03/16/19 at 17:30 Miscellaneous Information 1 ea NOTE XX ; Start 03/16/19 at 18:00 Glucose (Glutose) 15 gm Q15M PRN PO DECREASED GLUCOSE; Start 03/16/19 at 18:00 Glucose (Glutose) 22.5 gm Q15M PRN PO DECREASED GLUCOSE; Start 03/16/19 at 18:00 Dextrose (D50w Syringe) 25 ml Q15M PRN IV DECREASED GLUCOSE; Start 03/16/19 at 18:00 Dextrose (D50w Syringe) 50 ml Q15M PRN IV DECREASED GLUCOSE; Start 03/16/19 at 18:00 Glucagon (Glucagen) 1 mg Q15M PRN IM DECREASED GLUCOSE; Start 03/16/19 at 18:00 Glucose (Glutose) 15 gm Q15M PRN BUCCAL DECREASED GLUCOSE; Start 03/16/19 at 18:00 Pantoprazole (Protonix Tab) 40 mg DAILY@06 PO Last administered on 03/21/19at 05:26; Admin Dose 40 MG; Start 03/17/19 at 06:00 Tacrolimus (Prograf) 2 mg AM PO Last administered on 03/21/19at 09:54; Admin Dose 2 MG; Start 03/18/19 at 09:00 Tacrolimus (Prograf) 1 mg HS PO Last administered on 03/20/19at 20:31; Admin Dose 1 MG; Start 03/17/19 at 21:00 Mycophenolate Sodium (Myfortic) 180 mg Q12 PO Last administered on 03/21/19at 09:54; Admin Dose 180 MG; Start 03/17/19 at 21:00 Diagnostic Test (Pha) (Accu-Chek) 1 ea 02 XX ; Start 03/18/19 at 02:00 Guaifenesin/ Dextromethorphan (Robitussin Dm Liquid Cup) 10 ml Q4H PRN PO COUGH; Start 03/18/19 at 14:30 Hydralazine HCl (Apresoline) 10 mg Q4H PRN IV ELEVATED BLOOD PRESSURE; Start 03/18/19 at 15:30 Metoclopramide HCl (Reglan) 5 mg TID PO Last administered on 03/21/19at 09:54; Admin Dose 5 MG; Start 03/18/19 at 17:00 Simethicone (Mylicon) 80 mg Q6H PRN PO DISTENSION/GAS/BLOATING Last administered on 03/19/19 01:00; Admin Dose 80 MG; Start 03/18/19 at 17:30 Insulin Aspart (Novolog Insulin Pen) NOVOLOG *MODERATE* ALGORITHM WITH MEALS BEDTIME SC Last administered on 03/20/19 18:01; Admin Dose 6 UNIT; Start 03/18/19 at 21:00 Sodium Bicarbonate (Sodium Bicarbonate Tab) 650 mg BID PO Last administered on 03/21/19 09:54; Admin Dose 650 MG; Start 03/19/19 at 14:00 Ergocalciferol (Drisdol) 50,000 unit [place]@09 PO Last administered on 03/21/19 09:54; Admin Dose 50,000 UNIT; Start 03/21/19 at 09:00 Acetaminophen/ Hydrocodone Bitart ([place] (5/325)) 2 tab Q4H PRN PO MODERATE to sever 5-10 Last administered on 03/21/19 09:54; Admin Dose 2 TAB; Start 03/20/19 at 22:30 ROJAS BYRD March 21, 2019 11:47
--- NOTE | 2019-03-21 13:48 | CONS ---
Assessment/Plan Assessment/Plan Hospital Course (Demo Recall) 1. Hyperkalemia, could be secondary to worsening renal failure, resolved. enal US showed hydronephrosis of transplant kidney, acute 2. Abdominal pain with chills. NO fever 4. Acute on chronic renal failure. The patient had chronic kidney disease IV in the past with a creatinine of 3.2 to 3.4. It could be exacerbated by acute hemodynamic changes with sepsis. vs hydronephrosis vs ATN vs progression of disease, pt has underlying DM nephropathy 5. Elevated lipase.? Pancreatitis 6. Urinary tract infection. 7. Pneumonia. 8. Anemia. 9. History of hepatitis C. 10. History of donor renal transplantation. 11. metabolic acidosis likely secondary to renal failure 12. Non compliance He had refused p.o. Kayexalate and [place] 13, severe acidosis 14. vit d deficiency Assessment/Plan (Daily) - cw prograft 2 mg/1, mycophenolate and cw prednisone. - c/w ergocalciferol 50 000 u weekly -check cr. daily, decreased today -c/w Bicarb tabs - urology consult appreciated continue with frequentbladder emptying - renally dose al meds -phos level normal -hypoglycemic control Consultation Date/Type/Reason Admit Date/Time March 17, 2019 at 13:23 Initial Consult Date 03/17/19 Type of Consult nephrology Requesting Provider: LUPE KAPLAN MD Date/Time of Note DATE: 03/21/19 TIME: 13:47 24 HR Interval Summary Free Text/Dictation little improvement Exam/Review of Systems Exam Vitals Vital Signs Date Temp Pulse Resp B/P (MAP) Pulse Ox O2 O2 Flow FiO2 Time Delivery Rate 03/21/19 72 12:00 03/21/19 98.0 16 141/61 100 Nasal 4.0 11:03 (87) Cannula Intake and Output 03/20/19 03/20/19 03/21/19 1414:59 22:59 06:59 IntakeIntake Total 800 ml 500 ml OutputOutput Total 950 ml 550 ml BalanceBalance -150 ml -50 ml Constitutional: alert, oriented Head: normocephalic Eyes: nl conjunctiva ENMT: nl external ears & nose Cardiovascular: regular rate and rhythm Gastrointestinal: soft, surgical scars Skin: ecchymosis (left side of the body) Results Result Diagram: 5/17/19 0618 03/21/19 0548 Results 24hrs Laboratory Tests Test 03/20/19 17:01 03/20/19 20:21 03/21/19 05:48 03/21/19 12:54 Bedside Glucose 242 H 133 217 Sodium Level 134 L Potassium Level 5.4 H Chloride Level 108 Carbon Dioxide Level 20 L Anion Gap 6 Blood Urea Nitrogen 67 H Creatinine 3.76 H Est Glomerular 17 L Filtrat Rate mL/min Glucose Level 144 Calcium Level 8.4 Medications Medication Current Medications Prednisone (Prednisone) 5 mg DAILY PO Last administered on 03/21/19 09:54; Admin Dose 5 MG; Start 03/17/19 at 09:00 IV Flush (NS 3 ml) 3 ml PER PROTOCOL IV ; Start 03/16/19 at 17:30 Ondansetron HCl (Zofran Inj) 4 mg Q6H PRN IV NAUSEA/VOMITING Last administered on 03/17/19at 20:16; Admin Dose 4 MG; Start 03/16/19 at 17:30 Aspirin (Aspirin) 81 mg DAILY PO Last administered on 03/21/19 09:54; Admin Dose 81 MG; Start 03/17/19 at 09:00 Nitroglycerin (Nitroglycerin (Sl Tab) 0.4 Mg) 1 tab Q5M PRN SL .CHEST PAIN; Start 03/16/19 at 17:30 Acetaminophen (Tylenol Tab) 650 mg Q6H PRN PO .PAIN 1-3 OR TEMP; Start 03/16/19 at 17:30 Morphine Sulfate (morphine) 2 mg Q4H PRN IV .PAIN 7-10 Last administered on 03/19/19at 01:02; Admin Dose 2 MG; Start 03/16/19 at 17:30 Zolpidem Tartrate (Ambien) 5 mg QHS PRN PO .INSOMNIA Last administered on 03/18/19 00:00; Admin Dose 5 MG; Start 03/16/19 at 17:30 Docusate Sodium (Colace) 100 mg Q12H PO Last administered on 03/21/19 05:26; Admin Dose 100 MG; Start 03/16/19 at 17:30 Bisacodyl (Dulcolax) 5 mg DAILY PRN PO .CONSTIPATION; Start 03/16/19 at 17:30 Miscellaneous Information 1 ea NOTE XX ; Start 03/16/19 at 18:00 Glucose (Glutose) 15 gm Q15M PRN PO DECREASED GLUCOSE; Start 03/16/19 at 18:00 Glucose (Glutose) 22.5 gm Q15M PRN PO DECREASED GLUCOSE; Start 03/16/19 at 18:00 Dextrose (D50w Syringe) 25 ml Q15M PRN IV DECREASED GLUCOSE; Start 03/16/19 at 18:00 Dextrose (D50w Syringe) 50 ml Q15M PRN IV DECREASED GLUCOSE; Start 03/16/19 at 18:00 Glucagon (Glucagen) 1 mg Q15M PRN IM DECREASED GLUCOSE; Start 03/16/19 at 18:00 Glucose (Glutose) 15 gm Q15M PRN BUCCAL DECREASED GLUCOSE; Start 03/16/19 at 18:00 Pantoprazole (Protonix Tab) 40 mg DAILY@06 PO Last administered on 03/21/19at 05:26; Admin Dose 40 MG; Start 03/17/19 at 06:00 Tacrolimus (Prograf) 2 mg AM PO Last administered on 03/21/19at 09:54; Admin Dose 2 MG; Start 03/18/19 at 09:00 Tacrolimus (Prograf) 1 mg HS PO Last administered on 03/20/19at 20:31; Admin Do se 1 MG; Start 03/17/19 at 21:00 Mycophenolate Sodium (Myfortic) 180 mg Q12 PO Last administered on 03/21/19at 09:54; Admin Dose 180 MG; Start 03/17/19 at 21:00 Diagnostic Test (Pha) (Accu-Chek) 1 ea 02 XX ; Start 03/18/19 at 02:00 Guaifenesin/ Dextromethorphan (Robitussin Dm Liquid Cup) 10 ml Q4H PRN PO COUGH; Start 03/18/19 at 14:30 Hydralazine HCl (Apresoline) 10 mg Q4H PRN IV ELEVATED BLOOD PRESSURE; Start 03/18/19 at 15:30 Metoclopramide HCl (Reglan) 5 mg TID PO Last administered on 03/21/19at 12:58; Admin Dose 5 MG; Start 03/18/19 at 17:00 Simethicone (Mylicon) 80 mg Q6H PRN PO DISTENSION/GAS/BLOATING Last administered on 03/19/19 01:00; Admin Dose 80 MG; Start 03/18/19 at 17:30 Insulin Aspart (Novolog Insulin Pen) NOVOLOG *MODERATE* ALGORITHM WITH MEALS BEDTIME SC Last administered on 03/21/19 13:37; Admin Dose 4 UNIT; Start 03/18/19 at 21:00 Sodium Bicarbonate (Sodium Bicarbonate Tab) 650 mg BID PO Last administered on 03/21/19 09:54; Admin Dose 650 MG; Start 03/19/19 at 14:00 Ergocalciferol (Drisdol) 50,000 unit [place]@09 PO Last administered on 03/21/19 09:54; Admin Dose 50,000 UNIT; Start 03/21/19 at 09:00 Acetaminophen/ Hydrocodone Bitart ([place] (5/325)) 2 tab Q4H PRN PO MODERATE to sever 5-10 Last administered on 03/21/19 09:54; Admin Dose 2 TAB; Start 03/20 at 22:30 GENNARO GAO March 21, 2019 13:48
[2019-03-21] MEDS ORDERED: SODIUM POLYSTYRENE 15 GM KIT (POWDER + SORBITOL) PO ONE (16:00)
[2019-03-22] VITALS (12 sets, daily range): BP systolic 113–137; BP diastolic 57–68; PULSE 56–83; RESP 18
[2019-03-22] MEDS: ACCU-CHEK XX SCH (01:23)
[2019-03-22] MEDS: HYDROCODONE/APAP (5/325) TAB PO PRN ×4 (03:59→22:12)
[2019-03-22] MEDS: PANTOPRAZOLE (EC) 40 MG TAB PO SCH (04:00)
[2019-03-22] MEDS: DOCUSATE SODIUM 100 MG CAP PO SCH ×2 (04:00→17:23)
[2019-03-22] MEDS: METOCLOPRAMIDE 5 MG TAB PO SCH ×3 (08:14→22:05)
[2019-03-22] MEDS: TACROLIMUS 1 MG CAP PO SCH ×2 (08:14→22:05)
[2019-03-22] MEDS: ASPIRIN 81 MG TAB PO SCH (08:14)
[2019-03-22] MEDS: predniSONE 5 MG TAB PO SCH (08:14)
[2019-03-22] MEDS: NA BICARBONATE 650 MG TAB PO SCH ×2 (08:14→22:06)
[2019-03-22] MEDS: INSULIN ASPART [NOVOLOG] 3 ML PEN SC SCH ×4 (08:57→21:00)
[2019-03-22] MEDS: MYCOPHENOLATE (SR) 180 MG TAB PO SCH ×2 (09:21→22:05)
--- NOTE | 2019-03-22 12:14 | CONS ---
Assessment/Plan Assessment/Plan Hospital Course (Demo Recall) 1. ARF 2. SOB w/u in progress 3. Possible uti but seems less likely PMH as of last admit: - Anasarca, improved with IV Lasix - Endocarditis - Dr. Olmstead rec'd call from [facility] 01/15/19 regarding this and plan was to complete cefazolin through 01.29.19 - Completing Augmentin for progressive swelling of distal aspect of right ring finger with x-ray showing further of erosion and lucency involving the distal aspect of the distal phalanx of the right ring finger suspicious for osteomyelitis with improved but slight associated soft tissue swelling. ESR 67. - Hx OM of R 4th digit: swelling with new erosive changes and osteopenia of the underlying R 4th distal phalanx, suggestive of osteomyelitis; wound culture grew Serratia on 03/18/18 and Serratia + CoNS (likely colonizer) on 04/04/18 ; Pt declined amputation. ESR 39 on 03/18/2018. S/p Levaquin x 6 weeks, ESR 60 01/13/19 - Hematoma within the right lateral abdominal wall musculature which has developed since the previous study done 12/13/2018 measuring 7.3 x 4.6 cm in cross diameter and extending an acrylic that dimension approximately 10.7 cm from the level of the superior pole of the circle right kidney to just inferior to the right iliac crest per CT 01/12/19 - Calcification of the vas deferens with a persistent hydrocele within the scrotum per CT 01/12/19 - Bacteremia d/t MSSA 12/09/2018, repeat blood cx 12/12/18 NGTD - MRSA and K. pneumoniae in urine cx 12/09/2018 - UA was neg for pyuria - Hx mild subtle increased activity within the upper aspect of LUE, nonspecific, on WBC tagged scan on 04/05/2018 - Hx OM of R 3rd fingertip (XR showed periosteal reaction at the tip of R 3rd distal phalanx, suspicious for OM, MRI showed cellulitis of distal R 4th phalanx, without OM) and L 2nd fingertip (XR showed cortical irregularity at the tuft of L 2nd distal phalanx with overlying soft tissue defect, suggesting early OM, MRI showed OM at L 2nd distal phalanx with, cellulitis about L 2nd distal phalanx without drainable fluid collection.) - Hx OM of R 2nd finger s/p amputation at proximal phalanx neck, and h/o OM of L 3rd finger s/p amputation at middle and distal phalanges - Acute on chronic renal failure - Hyperkalemia with metabolic acidosis - slowly improving with sodium bicarb - Hx ESRD, was on HD - S/p renal transplant in 2009 (on tacrolimus, mycophenolate and prednisone), chronic renal insufficiency at baseline - DM - Hgb A1c 10.5% - Hx Juan's esophagus and gastritis s/p EGD on 08/12/2017. No H. pylori on Bx - BLE atherosclerosis - Seen by Vascular Surgery during last admit - Onychomycosis, tinea pedis - Seen by [employer] during last admit - Rheumatoid arthritis - Chronic HCV infection - HTN - Dyslipidemia - Hx polysubstance and IV drug use. 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 psychosis - on Lexapro - Abdominal distention and pain R: Monitor closely off antibiotic S/p Ceftriaxone F/u with all cxs Consultation Date/Type/Reason Admit Date/Time March 17, 2019 at 13:23 Initial Consult Date Type of Consult ID Requesting Provider: LUPE KAPLAN MD Date/Time of Note DATE: 03/22/19 TIME: 12:14 Exam/Review of Systems Exam Vitals Vital Signs Date Temp Pulse Resp B/P (MAP) Pulse Ox O2 O2 Flow FiO2 Time Delivery Rate 03/22/19 98.0 63 18 122/57 98 12:06 (78) 03/22/19 2.0 11:35 03/21/19 Nasal 19:52 Cannula Intake and Output 03/21/19 03/21/19 03/22/19 1515:00 23:00 07:00 IntakeIntake Total 600 ml 650 ml OutputOutput Total 400 ml 1000 ml BalanceBalance 200 ml -350 ml Eyes: nl conjunctiva, EOMI, nl lids, nl sclera, PERRL Respiratory: clear to auscultation, normal air movement Cardiovascular: regular rate and rhythm, nl pulses Gastrointestinal: soft, nl liver, spleen, non-tender 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: LONG GOODS DRIER II-XII intact, nl mental status, nl speech, nl strength Results Result Diagram: 03/19/1918 03/22/19 0543 Results 24hrs Laboratory Tests Test 03/21/19 12:54 03/21/19 17:49 03/21/19 20:25 03/22/19 01:15 Bedside Glucose 217 229 H 231 H 117 Test 03/22/19 05:43 03/22/19 07:52 03/22/19 11:52 Sodium Level 137 Potassium Level 5.0 Chloride Level 110 Carbon Dioxide Level 20 L Anion Gap 7 Blood Urea Nitrogen 64 H Creatinine 3.86 H Est Glomerular 16 L Filtrat Rate mL/min Glucose Level 143 Calcium Level 8.3 L Total Bilirubin 0.3 Direct Bilirubin 0.00 Indirect Bilirubin 0.3 Aspartate Amino 26 Transf (AST/SGOT) Alanine 21 Aminotransferase (AL T/SGPT) Alkaline Phosphatase 65 Total Protein 5.6 L Albumin 2.7 L Globulin 2.90 Albumin/Globulin 0.93 Ratio Bedside Glucose 160 220 Medications Medication Current Medications Prednisone (Prednisone) 5 mg DAILY PO Last administered on 03/22/19 08:14; Admin Dose 5 MG; Start 03/17/19 at 09:00 IV Flush (NS 3 ml) 3 ml PER PROTOCOL IV ; Start 03/16/19 at 17:30 Ondansetron HCl (Zofran Inj) 4 mg Q6H PRN IV NAUSEA/VOMITING Last administered on 03/17/19at 20:16; Admin Dose 4 MG; Start 03/16/19 at 17:30 Aspirin (Aspirin) 81 mg DAILY PO Last administered on 03/22/19 08:14; Admin Dose 81 MG; Start 03/17/19 at 09:00 Nitroglycerin (Nitroglycerin (Sl Tab) 0.4 Mg) 1 tab Q5M PRN SL .CHEST PAIN; Start 03/16/19 at 17:30 Acetaminophen (Tylenol Tab) 650 mg Q6H PRN PO .PAIN 1-3 OR TEMP; Start 03/16/19 at 17:30 Morphine Sulfate (morphine) 2 mg Q4H PRN IV .PAIN 7-10 Last administered on 03/19/19at 01:02; Admin Dose 2 MG; Start 03/16/19 at 17:30 Zolpidem Tartrate (Ambien) 5 mg QHS PRN PO .INSOMNIA Last administered on at 00:00; Admin Dose 5 MG; Start 03/16/19 at 17:30 Docusate Sodium (Colace) 100 mg Q12H PO Last administered on 03/22/19at 04:00; Admin Dose 100 MG; Start 03/16/19 at 17:30 Bisacodyl (Dulcolax) 5 mg DAILY PRN PO .CONSTIPATION; Start 03/16/19 at 17:30 Miscellaneous Information 1 ea NOTE XX ; Start 03/16/19 at 18:00 Glucose (Glutose) 15 gm Q15M PRN PO DECREASED GLUCOSE; Start 03/16/19 at 18:00 Glucose (Glutose) 22.5 gm Q15M PRN PO DECREASED GLUCOSE; Start 03/16/19 at 18:00 Dextrose (D50w Syringe) 25 ml Q15M PRN IV DECREASED GLUCOSE; Start 03/16/19 at 18:00 Dextrose (D50w Syringe) 50 ml Q15M PRN IV DECREASED GLUCOSE; Start 03/16/19 at 18:00 Glucagon (Glucagen) 1 mg Q15M PRN IM DECREASED GLUCOSE; Start 03/16/19 at 18:00 Glucose (Glutose) 15 gm Q15M PRN BUCCAL DECREASED GLUCOSE; Start 03/16/19 at 18:00 Pantoprazole (Protonix Tab) 40 mg DAILY@06 PO Last administered on 03/22/19at 0 4:00; Admin Dose 40 MG; Start 03/17/19 at 06:00 Tacrolimus (Prograf) 2 mg AM PO Last administered on 03/22/19at 08:14; Admin Dose 2 MG; Start 03/18/19 at 09:00 Tacrolimus (Prograf) 1 mg HS PO Last administered on 03/21/19at 20:23; Admin Dose 1 MG; Start 03/17/19 at 21:00 Mycophenolate Sodium (Myfortic) 180 mg Q12 PO Last administered on 03/22/19at 09:21; Admin Dose 180 MG; Start 03/17/19 at 21:00 Diagnostic Test (Pha) (Accu-Chek) 1 ea 02 XX Last administered on 03/22/19at 01:23; Admin Dose 1 EA; Start 03/18/19 at 02:00 Guaifenesin/ Dextromethorphan (Robitussin Dm Liquid Cup) 10 ml Q4H PRN PO COUGH; Start 03/18/19 at 14:30 Hydralazine HCl (Apresoline) 10 mg Q4H PRN IV ELEVATED BLOOD PRESSURE; Start 03/18/19 at 15:30 Metoclopramide HCl (Reglan) 5 mg TID PO Last administered on 03/22/19 08:14; Admin Dose 5 MG; Start 03/18/19 at 17:00 Simethicone (Mylicon) 80 mg Q6H PRN PO DISTENSION/GAS/BLOATING Last administered on 03/19/19 01:00; Admin Dose 80 MG; Start 03/18/19 at 17:30 Insulin Aspart (Novolog Insulin Pen) NOVOLOG *MODERATE* ALGORITHM WITH MEALS BEDTIME SC Last administered on 03/22/19 11:57; Admin Dose 4 UNIT; Start 03/18/19 at 21:00 Sodium Bicarbonate (Sodium Bicarbonate Tab) 650 mg BID PO Last administered on 03/22/19 08:14; Admin Dose 650 MG; Start 03/19/19 at 14:00 Ergocalciferol (Drisdol) 50,000 unit [place]@09 PO Last administered on 03/21/19 09:54; Admin Dose 50,000 UNIT; Start 03/21/19 at 09:00 Acetaminophen/ Hydrocodone Bitart ([place] (5/325)) 2 tab Q4H PRN PO MODERATE to sever 5-10 Last administered on 03/22/19 09:22; Admin Dose 2 TAB; Start 03/20/19 at 22:30 PARAMJIT OLMSTEAD MD March 22, 2019 12:14
--- NOTE | 2019-03-22 12:42 | CONS ---
Assessment/Plan Assessment/Plan Assessment/Plan (Daily) 1. Hyperkalemia, could be secondary to worsening renal failure/Acidosis resolved. enal US showed hydronephrosis of transplant kidney, acute 2. Abdominal pain with chills. NO fever 4. Acute on chronic renal failure. The patient had chronic kidney disease IV in the past with a creatinine of 3.2 to 3.4. It could be exacerbated by acute hemodynamic changes with sepsis. vs hydronephrosis vs ATN vs progression of disease, pt has underlying DM nephropathy, and is improving 5. Elevated lipase.? Pancreatitis 6. Urinary tract infection. 7. Pneumonia. 8. Anemia. 9. History of hepatitis C. 10. History of donor renal transplantation. 11. metabolic acidosis likely secondary to renal failure 12. Non compliance He had refused p.o. Kayexalate and V[place] 13, severe acidosis 14. vit d deficiency Assessment/Plan (Daily) - cw prograft 2 mg/2 now, mycophenolate and cw prednisone. - c/w ergocalciferol 50 000 u weekly - check ABG to check for hypoxia -c/w Bicarb tabs - urology consult appreciated continue with frequentbladder emptying - renally dose al meds -phos level normal Consultation Date/Type/Reason Admit Date/Time March 17, 2019 at 13:23 Initial Consult Date Requesting Provider: LUPE KAPLAN MD Date/Time of Note DATE: 03/22/19 TIME: 12:42 24 HR Interval Summary Free Text/Dictation Little short of breath last night Exam/Review of Systems Exam Vitals Vital Signs Date Temp Pulse Resp B/P (MAP) Pulse Ox O2 O2 Flow FiO2 Time Delivery Rate 03/22/19 98.0 63 18 122/57 98 12:06 (78) 03/22/19 2.0 11:35 03/21/19 Nasal 19:52 Cannula Intake and Output 03/21/19 03/21/19 03/22/19 1515:00 23:00 07:00 IntakeIntake Total 600 ml 650 ml OutputOutput Total 400 ml 1000 ml BalanceBalance 200 ml -350 ml Exam Constitutional: alert, oriented Head: normocephalic Neck: supple Respiratory: diminished breath sounds Cardiovascular: regular rate and rhythm Gastrointestinal: soft Musculoskeletal: other (left flank hematoma) Skin: other (scabs, left arm non functin fistula) Results Result Diagram: 03/19/19 0618 03/22/19 0543 Results 24hrs Laboratory Tests Test 03/21/19 12:54 03/21/19 17:49 03/21/19 20:25 03/22/19 01:15 Bedside Glucose 217 229 H 231 H 117 Test 03/22/19 05:43 03/22/19 07:52 03/22/19 11:52 Sodium Level 137 Potassium Level 5.0 Chloride Level 110 Carbon Dioxide Level 20 L Anion Gap 7 Blood Urea Nitrogen 64 H Creatinine 3.86 H Est Glomerular 16 L Filtrat Rate mL/min Glucose Level 143 Calcium Level 8.3 L Total Bilirubin 0.3 Direct Bilirubin 0.00 Indirect Bilirubin 0.3 Aspartate Amino 26 Transf (AST/SGOT) Alanine 21 Aminotransferase (AL T/SGPT) Alkaline Phosphatase 65 Total Protein 5.6 L Albumin 2.7 L Globulin 2.90 Albumin/Globulin 0.93 Ratio Bedside Glucose 160 220 Medications Medication Current Medications Prednisone (Prednisone) 5 mg DAILY PO Last administered on 03/22/19at 08:14; Admin Dose 5 MG; Start 03/17/19 at 09:00 IV Flush (NS 3 ml) 3 ml PER PROTOCOL IV ; Start 03/16/19 at 17:30 Ondansetron HCl (Zofran Inj) 4 mg Q6H PRN IV NAUSEA/VOMITING Last administered on 03/17/19at 20:16; Admin Dose 4 MG; Start 03/16/19 at 17:30 Aspirin (Aspirin) 81 mg DAILY PO Last administered on 03/22/19at 08:14; Admin Dose 81 MG; Start 03/17/19 at 09:00 Nitroglycerin (Nitroglycerin (Sl Tab) 0.4 Mg) 1 tab Q5M PRN SL .CHEST PAIN; Start 03/16/19 at 17:30 Acetaminophen (Tylenol Tab) 650 mg Q6H PRN PO .PAIN 1-3 OR TEMP; Start 03/16/19 at 17:30 Morphine Sulfate (morphine) 2 mg Q4H PRN IV .PAIN 7-10 Last administered on 03/19/19at 01:02; Admin Dose 2 MG; Start 03/16/19 at 17:30 Zolpidem Tartrate (Ambien) 5 mg QHS PRN PO .INSOMNIA Last administered on 03/18/19at 00:00; Admin Dose 5 MG; Start 03/16/19 at 17:30 Docusate Sodium (Colace) 100 mg Q12H PO Last administered on 03/22/19at 04:00; Admin Dose 100 MG; Start 03/16/19 at 17:30 Bisacodyl (Dulcolax) 5 mg DAILY PRN PO .CONSTIPATION; Start 03/16/19 at 17:30 Miscellaneous Information 1 ea NOTE XX ; Start 03/16/19 at 18:00 Glucose (Glutose) 15 gm Q15M PRN PO DECREASED GLUCOSE; Start 03/16/19 at 18:00 Glucose (Glutose) 22.5 gm Q15M PRN PO DECREASED GLUCOSE; Start 03/16/19 at 18:00 Dextrose (D50w Syringe) 25 ml Q15M PRN IV DECREASED GLUCOSE; Start 03/16/19 at 18:00 Dextrose (D50w Syringe) 50 ml Q15M PRN IV DECREASED GLUCOSE; Start 03/16/19 at 18:00 Glucagon (Glucagen) 1 mg Q15M PRN IM DECREASED GLUCOSE; Start 03/16/19 at 18:00 Glucose (Glutose) 15 gm Q15M PRN BUCCAL DECREASED GLUCOSE; Start 03/16/19 at 18:00 Pantoprazole (Protonix Tab) 40 mg DAILY@06 PO Last administered on 03/22/19at 04:00; Admin Dose 40 MG; Start 03/17/19 at 06:00 Tacrolimus (Prograf) 2 mg AM PO Last administered on 03/22/19at 08:14; Admin Dose 2 MG; Start 03/18/19 at 09:00 Tacrolimus (Prograf) 1 mg HS PO Last administered on 03/21/19at 20:23; Admin Dose 1 MG; Start 03/17/19 at 21:00 Mycophenolate Sodium (Myfortic) 180 mg Q12 PO Last administered on 03/22/19at 09:21; Admin Dose 180 MG; Start 03/17/19 at 21:00 Diagnostic Test (Pha) (Accu-Chek) 1 ea 02 XX Last administered on 03/22/19at 01:23; Admin Dose 1 EA; Start 03/18/19 at 02:00 Guaifenesin/ Dextromethorphan (Robitussin Dm Liquid Cup) 10 ml Q4H PRN PO COUGH; Start 03/18/19 at 14:30 Hydralazine HCl (Apresoline) 10 mg Q4H PRN IV ELEVATED BLOOD PRESSURE; Start 03/18/19 at 15:30 Metoclopramide HCl (Reglan) 5 mg TID PO Last administered on 03/22/19 08:14; Admin Dose 5 MG; Start 03/18/19 at 17:00 Simethicone (Mylicon) 80 mg Q6H PRN PO DISTENSION/GAS/BLOATING Last administered on 03/19/19 01:00; Admin Dose 80 MG; Start 03/18/19 at 17:30 Insulin Aspart (Novolog Insulin Pen) NOVOLOG *MODERATE* ALGORITHM WITH MEALS BEDTIME SC Last administered on 03/22/19 11:57; Admin Dose 4 UNIT; Start 03/18/19 at 21:00 Sodium Bicarbonate (Sodium Bicarbonate Tab) 650 mg BID PO Last administered on 03/22/19 08:14; Admin Dose 650 MG; Start 03/19/19 at 14:00 Ergocalciferol (Drisdol) 50,000 unit [place]@09 PO Last administered on 03/21/19 09:54; Admin Dose 50,000 UNIT; Start 03/21/19 at 09:00 Acetaminophen/ Hydrocodone Bitart ([place] (5/325)) 2 tab Q4H PRN PO MODERATE to sever 5-10 Last administered on 03/22/19 09:22; Admin Dose 2 TAB; Start 03/20/19 at 22:30 HARVINDER BLOOD MD March 22, 2019 12:42
[2019-03-22] MEDS: BALSAM PERU/CASTOR OIL 60 GM TUBE TOP SCH (13:33)
--- NOTE | 2019-03-22 13:52 | PN ---
Date/Time of Note Date/Time of Note DATE: 03/22/19 TIME: 13:52 Assessment/Plan VTE Prophylaxis Risk score (from Ns)>0 risk: 2 SCD applied (from Ns): Yes Pharmacological prophylaxis: NA/contraindicated Pharm contraindication: anticoag not tolerated Lines/Catheters IV C[facility]ter Type (from [facility] Mid Line Urinary Cath still in place: No Assessment/Plan Hospital Course Pt complaines of SOB last night, on supplemental O2, ABG, CXR, breathing treatment. Assessment/Plan -Possible sepsis secondary to possible pneumonia and UTI, s/p Rocephin. Dr. Olmstead is following in infection disease consultation. -Acute renal failure on chronic kidney disease stage IV, status post cadaveric kidney transplant [place] [address]. Dr[address] Allen is following in nephrology consultation. -Hyperkalemia, status post Kayexalate -Moderate hydronephrosis, Dr. Noguera is following in urology consultation. -Possible pancreatitis, monitor lipase -Diabetes mellitus type 2 with diabetic neuropathy. HbgA1C is 6.2. Continue Tradjenta, Lantus and NovoLog. -Hypertension. -Anemia -Chronic HCV infection -Rheumatoid arthritis -History of polysubstance and IV drug use Further recommendations based on clinical course. Plan of care discussed with Dr. Maier. Result Diagram: 03/19/19 0618 03/22/19 0543 Results 24hrs Laboratory Tests Test 03/21/19 17:49 03/21/19 20:25 03/22/19 01:15 03/22/19 05:43 Bedside Glucose 229 H 231 H 117 Sodium Level 137 Potassium Level 5.0 Chloride Level 110 Carbon Dioxide Level 20 L Anion Gap 7 Blood Urea Nitrogen 64 H Creatinine 3.86 H Est Glomerular 16 L Filtrat Rate mL/min Glucose Level 143 Calcium Level 8.3 L Total Bilirubin 0.3 Direct Bilirubin 0.00 Indirect Bilirubin 0.3 Aspartate Amino 26 Transf (AST/SGOT) Alanine 21 Aminotransferase (AL T/SGPT) Alkaline Phosphatase 65 Total Protein 5.6 L Albumin 2.7 L Globulin 2.90 Albumin/Globulin 0.93 Ratio Test 03/22/19 07:52 03/22/19 11:52 Bedside Glucose 160 220 Exam/Review of Systems Exam Vitals Vital Signs Date Temp Pulse Resp B/P (MAP) Pulse Ox O2 O2 Flow FiO2 Time Delivery Rate 03/22/19 98.0 63 18 122/57 98 12:06 (78) 03/22/19 2.0 11:35 03/21/19 Nasal 19:52 Cannula Intake and Output 03/21/19 03/21/19 03/22/19 1515:00 23:00 07:00 IntakeIntake Total 600 ml 650 ml OutputOutput Total 400 ml 1000 ml BalanceBalance 200 ml -350 ml Exam Constitutional: alert, oriented Respiratory: clear to auscultation Cardiovascular: regular rate and rhythm Gastrointestinal: soft, tender Musculoskeletal: nl extremities to inspection Extremities: normal pulses 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: nl mental status Results Results 24hrs Laboratory Tests Test 03/21/19 17:49 03/21/19 20:25 03/22/19 01:15 03/22/19 05:43 Bedside Glucose 229 H 231 H 117 Sodium Level 137 Potassium Level 5.0 Chloride Level 110 Carbon Dioxide Level 20 L Anion Gap 7 Blood Urea Nitrogen 64 H Creatinine 3.86 H Est Glomerular 16 L Filtrat Rate mL/min Glucose Level 143 Calcium Level 8.3 L Total Bilirubin 0.3 Direct Bilirubin 0.00 Indirect Bilirubin 0.3 Aspartate Amino 26 Transf (AST/SGOT) Alanine 21 Aminotransferase (AL T/SGPT) Alkaline Phosphatase 65 Total Protein 5.6 L Albumin 2.7 L Globulin 2.90 Albumin/Globulin 0.93 Ratio Test 03/22/19 07:52 03/22/19 11:52 Bedside Glucose 160 220 Medications Medication Current Medications Prednisone (Prednisone) 5 mg DAILY PO Last administered on 03/22/19at 08:14; Admin Dose 5 MG; Start 03/17/19 at 09:00 IV Flush (NS 3 ml) 3 ml PER PROTOCOL IV ; Start 03/16/19 at 17:30 Ondansetron HCl (Zofran Inj) 4 mg Q6H PRN IV NAUSEA/VOMITING Last administered on 03/17/19at 20:16; Admin Dose 4 MG; Start 03/16/19 at 17:30 Aspirin (Aspirin) 81 mg DAILY PO Last administered on 03/22/19at 08:14; Admin Dose 81 MG; Start 03/17/19 at 09:00 Nitroglycerin (Nitroglycerin (Sl Tab) 0.4 Mg) 1 tab Q5M PRN SL .CHEST PAIN; Start 03/16/19 at 17:30 Acetaminophen (Tylenol Tab) 650 mg Q6H PRN PO .PAIN 1-3 OR TEMP; Start 03/16/19 at 17:30 Morphine Sulfate (morphine) 2 mg Q4H PRN IV .PAIN 7-10 Last administered on 03/19/19at 01:02; Admin Dose 2 MG; Start 03/16/19 at 17:30 Zolpidem Tartrate (Ambien) 5 mg QHS PRN PO .INSOMNIA Last administered on 03/18/19at 00:00; Admin Dose 5 MG; Start 03/16/19 at 17:30 Docusate Sodium (Colace) 100 mg Q12H PO Last administered on 03/22/19at 04:00; Admin Dose 100 MG; Start 03/16/19 at 17:30 Bisacodyl (Dulcolax) 5 mg DAILY PRN PO .CONSTIPATION; Start 03/16/19 at 17:30 Miscellaneous Information 1 ea NOTE XX ; Start 03/16/19 at 18:00 Glucose (Glutose) 15 gm Q15M PRN PO DECREASED GLUCOSE; Start 03/16/19 at 18:00 Glucose (Glutose) 22.5 gm Q15M PRN PO DECREASED GLUCOSE; Start 03/16/19 at 18:00 Dextrose (D50w Syringe) 25 ml Q15M PRN IV DECREASED GLUCOSE; Start 03/16/19 at 18:00 Dextrose (D50w Syringe) 50 ml Q15M PRN IV DECREASED GLUCOSE; Start 03/16/19 at 18:00 Glucagon (Glucagen) 1 mg Q15M PRN IM DECREASED GLUCOSE; Start 03/16/19 at 18:00 Glucose (Glutose) 15 gm Q15M PRN BUCCAL DECREASED GLUCOSE; Start 03/16/19 at 18:00 Pantoprazole (Protonix Tab) 40 mg DAILY@06 PO Last administered on 03/22/19at 04:00; Admin Dose 40 MG; Start 03/17/19 at 06:00 Tacrolimus (Prograf) 2 mg AM PO Last administered on 03/22/19at 08:14; Admin Dose 2 MG; Start 03/18/19 at 09:00 Tacrolimus (Prograf) 1 mg HS PO Last administered on 03/21/19at 20:23; Admin Dose 1 MG; Start 03/17/19 at 21:00 Mycophenolate Sodium (Myfortic) 180 mg Q12 PO Last administered on 03/22/19 09:21; Admin Dose 180 MG; Start 03/17/19 at 21:00 Diagnostic Test (Pha) (Accu-Chek) 1 ea 02 XX Last administered on 03/22/19 01:23; Admin Dose 1 EA; Start 03/18/19 at 02:00 Guaifenesin/ Dextromethorphan (Robitussin Dm Liquid Cup) 10 ml Q4H PRN PO COUGH; Start 03/18/19 at 14:30 Hydralazine HCl (Apresoline) 10 mg Q4H PRN IV ELEVATED BLOOD PRESSURE; Start at 15:30 Metoclopramide HCl (Reglan) 5 mg TID PO Last administered on 03/22/19 12:50; Admin Dose 5 MG; Start 03/18/19 at 17:00 Simethicone (Mylicon) 80 mg Q6H PRN PO DISTENSION/GAS/BLOATING Last administered on 03/19/19 01:00; Admin Dose 80 MG; Start 03/18/19 at 17:30 Insulin Aspart (Novolog Insulin Pen) NOVOLOG *MODERATE* ALGORITHM WITH MEALS BEDTIME SC Last administered on 03/22/19 11:57; Admin Dose 4 UNIT; Start 03/18/19 at 21:00 Sodium Bicarbonate (Sodium Bicarbonate Tab) 650 mg BID PO Last administered on 03/22/19 08:14; Admin Dose 650 MG; Start 03/19/19 at 14:00 Ergocalciferol (Drisdol) 50,000 unit [place]@09 PO Last administered on 03/21/19 09:54; Admin Dose 50,000 UNIT; Start 03/21/19 at 09:00 Acetaminophen/ Hydrocodone Bitart ([place] (5/325)) 2 tab Q4H PRN PO MODERATE to sever 5-10 Last administered on 03/22/19 09:22; Admin Dose 2 TAB; Start 03/20/19 at 22:30 LETI RODRIGUEZ March 22, 2019 13:52
[2019-03-23] VITALS (11 sets, daily range): BP systolic 111–149; BP diastolic 46–87; PULSE 66–94; RESP 18
[2019-03-23] MEDS: ACCU-CHEK XX SCH (02:00)
[2019-03-23] MEDS ORDERED: ALBUTEROL/IPRATROPIUM (NEB) 3 ML AMP HHN PRN (04:00)
[2019-03-23] MEDS: HYDROCODONE/APAP (5/325) TAB PO PRN ×3 (04:08→16:46)
[2019-03-23] MEDS: DOCUSATE SODIUM 100 MG CAP PO SCH ×2 (06:18→17:18)
[2019-03-23] MEDS: PANTOPRAZOLE (EC) 40 MG TAB PO SCH (06:18)
[2019-03-23] MEDS: MYCOPHENOLATE (SR) 180 MG TAB PO SCH ×2 (08:14→21:20)
[2019-03-23] MEDS: TACROLIMUS 1 MG CAP PO SCH ×2 (08:15→21:20)
[2019-03-23] MEDS: NA BICARBONATE 650 MG TAB PO SCH ×2 (08:15→21:20)
[2019-03-23] MEDS: ASPIRIN 81 MG TAB PO SCH (08:15)
[2019-03-23] MEDS: METOCLOPRAMIDE 5 MG TAB PO SCH ×3 (08:15→21:20)
[2019-03-23] MEDS: INSULIN ASPART [NOVOLOG] 3 ML PEN SC SCH ×4 (08:16→22:05)
[2019-03-23] MEDS: predniSONE 5 MG TAB PO SCH (08:16)
[2019-03-23] MEDS: BALSAM PERU/CASTOR OIL 60 GM TUBE TOP SCH (08:17)
--- NOTE | 2019-03-23 11:10 | CONS ---
Assessment/Plan Assessment/Plan Assessment/Plan (Daily) 1 Hyperkalemia, could be secondary to worsening renal failure/Acidosis resolved. enal US showed hydronephrosis of transplant kidney, acute 2. Abdominal pain with chills. NO fever 4. Acute on chronic renal failure. The patient had chronic kidney disease IV in the past with a creatinine of 3.2 to 3.4. It could be exacerbated by acute hemodynamic changes with sepsis. vs hydronephrosis vs ATN vs progression of disease, pt has underlying DM nephropathy, and is improving 5. Elevated lipase.? Pancreatitis 6. Urinary tract infection. 7. Pneumonia. 8. Anemia. 9. History of hepatitis C. 10. History of donor renal transplantation. 11. metabolic acidosis likely secondary to renal failure 12. Non compliance He had refused p.o. Kayexalate and V[place] 13, severe acidosis 14. vit d deficiency 15 sob due to bronchitis vs pul edema with slight coarse breath sounds on rt base, ABG neg for hypoxia Assessment/Plan (Daily) - No new labs today - one dose of lasix iv today - cw prograft 2 mg/2 now, mycophenolate and cw prednisone. - c/w ergocalciferol 50 000 u weekly -c/w Bicarb tabs - urology consult appreciated continue with frequentbladder emptying - renally dose al meds -phos level normal Consultation Date/Type/Reason Admit Date/Time March 17, 2019 at 13:23 Initial Consult Date Requesting Provider: LUPE KAPLAN MD Date/Time of Note DATE: 03/23/19 TIME: 11:04 24 HR Interval Summary Free Text/Dictation Feels little sob Exam/Review of Systems Exam Vitals Vital Signs Date Temp Pulse Resp B/P (MAP) Pulse Ox O2 O2 Flow FiO2 Time Delivery Rate 03/23/19 Nasal 2.0 08:16 Cannula 03/23/19 72 08:00 03/23/19 98.0 18 149/78 98 07:16 (101) 03/23/19 21 01:51 Intake and Output 03/22/19 03/22/19 03/23/19 1515:00 23:00 07:00 IntakeIntake Total 700 ml OutputOutput Total 400 ml BalanceBalance 300 ml Exam Constitutional: alert, oriented Head: normocephalic Neck: supple Respiratory: diminished breath sounds, coarse on rt Cardiovascular: regular rate and rhythm Gastrointestinal: soft Skin: other (scabs, left arm non functin fistula) trace edema Results Result Diagram: 03/19/19 0618 03/22/19 0543 Results 24hrs Laboratory Tests Test 03/22/19 11:52 03/22/19 14:30 03/22/19 17:23 03/22/19 21:55 Bedside Glucose 220 189 147 Blood Gas Blood arterial Specimen Source Arterial Blood 03/22/2019 2:49:5 Date Drawn 3 PM Arterial Blood pH 7.380 (Temp corrected) Arterial Blood 35.0 pCO2 (Temp correct) Arterial Blood 80.8 pO2 (Temp corrected) Arterial Blood 20.2 L HCO3 Arterial Blood -4.4 L Base Excess Arterial Blood 95.3 Oxygen Saturation Presley Test ACCEPTAB Arterial Blood Right Brachial Gas Puncture Site Arterial 0.3 Blood Carboxyhemo globin Arterial Blood 0.4 Methemoglobin Blood Gas A-a O2 27.0 H Differential Oxyhemoglobin 94.6 Percent Blood Gas 37.0 Temperature Blood Gas ROOM AIR Modality FiO2 21.0 Blood Gas TM Notified Whom Blood Gas 03/22/2019 2:57:3 Notified Time 4 PM Test 03/23/19 03:43 03/23/19 08:10 Bedside Glucose 165 162 Medications Medication Current Medications Prednisone (Prednisone) 5 mg DAILY PO Last administered on 03/23/19at 08:16; Admin Dose 5 MG; Start 03/17/19 at 09:00 IV Flush (NS 3 ml) 3 ml PER PROTOCOL IV ; Start 03/16/19 at 17:30 Ondansetron HCl (Zofran Inj) 4 mg Q6H PRN IV NAUSEA/VOMITING Last administered on 03/17/19at 20:16; Admin Dose 4 MG; Start 03/16/19 at 17:30 Aspirin (Aspirin) 81 mg DAILY PO Last administered on 03/23/19at 08:15; Admin Dose 81 MG; Start 03/17/19 at 09:00 Nitroglycerin (Nitroglycerin (Sl Tab) 0.4 Mg) 1 tab Q5M PRN SL .CHEST PAIN; Start 03/16/19 at 17:30 Acetaminophen (Tylenol Tab) 650 mg Q6H PRN PO .PAIN 1-3 OR TEMP; Start 03/16/19 at 17:30 Morphine Sulfate (morphine) 2 mg Q4H PRN IV .PAIN 7-10 Last administered on 03/19/19at 01:02; Admin Dose 2 MG; Start 03/16/19 at 17:30 Zolpidem Tartrate (Ambien) 5 mg QHS PRN PO .INSOMNIA Last administered on 03/18/19at 00:00; Admin Dose 5 MG; Start 03/16/19 at 17:30 Docusate Sodium (Colace) 100 mg Q12H PO Last administered on 03/23/19at 06:18; Admin Dose 100 MG; Start 03/16/19 at 17:30 Bisacodyl (Dulcolax) 5 mg DAILY PRN PO .CONSTIPATION; Start 03/16/19 at 17:30 Miscellaneous Information 1 ea NOTE XX ; Start 03/16/19 at 18:00 Glucose (Glutose) 15 gm Q15M PRN PO DECREASED GLUCOSE; Start 03/16/19 at 18:00 Glucose (Glutose) 22.5 gm Q15M PRN PO DECREASED GLUCOSE; Start 03/16/19 at 18:00 Dextrose (D50w Syringe) 25 ml Q15M PRN IV DECREASED GLUCOSE; Start 03/16/19 at 18:00 Dextrose (D50w Syringe) 50 ml Q15M PRN IV DECREASED GLUCOSE; Start 03/16/19 at 18:00 Glucagon (Glucagen) 1 mg Q15M PRN IM DECREASED GLUCOSE; Start 03/16/19 at 18:00 Glucose (Glutose) 15 gm Q15M PRN BUCCAL DECREASED GLUCOSE; Start 03/16/19 at 18:00 Pantoprazole (Protonix Tab) 40 mg DAILY@06 PO Last administered on 03/23/19at 06:18; Admin Dose 40 MG; Start 03/17/19 at 06:00 Tacrolimus (Prograf) 2 mg AM PO Last administered on 03/23/19at 08:15; Admin D ose 2 MG; Start 03/18/19 at 09:00 Mycophenolate Sodium (Myfortic) 180 mg Q12 PO Last administered on 03/23/19at 08:14; Admin Dose 180 MG; Start 03/17/19 at 21:00 Diagnostic Test (Pha) (Accu-Chek) 1 ea 02 XX Last administered on 03/22/19at 01:23; Admin Dose 1 EA; Start 03/18/19 at 02:00 Guaifenesin/ Dextromethorphan (Robitussin Dm Liquid Cup) 10 ml Q4H PRN PO COUGH; Start 03/18/19 at 14:30 Hydralazine HCl (Apresoline) 10 mg Q4H PRN IV ELEVATED BLOOD PRESSURE; Start 03/18/19 at 15:30 Metoclopramide HCl (Reglan) 5 mg TID PO Last administered on 03/23/19at 08:15; Admin Dose 5 MG; Start 03/18/19 at 17:00 Simethicone (Mylicon) 80 mg Q6H PRN PO DISTENSION/GAS/BLOATING Last administered on 03/19/19at 01:00; Admin Dose 80 MG; Start 03/18/19 at 17:30 Insulin Aspart (Novolog Insulin Pen) NOVOLOG *MODERATE* ALGORITHM WITH MEALS BEDTIME SC Last administered on 03/23/19at 08:16; Admin Dose 2 UNIT; Start 03/18/19 at 21:00 Sodium Bicarbonate (Sodium Bicarbonate Tab) 650 mg BID PO Last administered on 03/23/19at 08:15; Admin Dose 650 MG; Start 03/19/19 at 14:00 Ergocalciferol (Drisdol) 50,000 unit [place]@09 PO Last administered on 03/21/19 09:54; Admin Dose 50,000 UNIT; Start 03/21/19 at 09:00 Acetaminophen/ Hydrocodone Bitart ([place] (5/325)) 2 tab Q4H PRN PO MODERATE to sever 5-10 Last administered on 03/23/19at 10:44; Admin Dose 2 TAB; Start 03/20/19 at 22:30 Tacrolimus (Prograf) 2 mg HS PO Last administered on 03/22/19at 22:05; Admin Dose 2 MG; Start 03/22/19 at 21:00 Albuterol/ Ipratropium (Duoneb) 3 ml Q4H RESP THERAPY PRN HHN SHORTNESS OF BREATH; Start 03/23/19 at 04:00 HARVINDER BLOOD MD March 23, 2019 11:10
[2019-03-23] MEDS ORDERED: FUROSEMIDE 20 MG INJ IV ONE (11:30)
--- NOTE | 2019-03-23 12:30 | CONS ---
Assessment/Plan Assessment/Plan Hospital Course (Demo Recall) 1. ARF 2. SOB w/u in progress 3. Possible uti but seems less likely PMH as of last admit: - Anasarca, improved with IV Lasix - Endocarditis - Dr. Olmstead rec'd call from [facility] 01/15/19 regarding this and plan was to complete cefazolin through 01.29.19 - Completing Augmentin for progressive swelling of distal aspect of right ring finger with x-ray showing further of erosion and lucency involving the distal aspect of the distal phalanx of the right ring finger suspicious for osteomyelitis with improved but slight associated soft tissue swelling. ESR 67. - Hx OM of R 4th digit: swelling with new erosive changes and osteopenia of the underlying R 4th distal phalanx, suggestive of osteomyelitis; wound culture grew Serratia on 03/18/18 and Serratia + CoNS (likely colonizer) on 04/04/18 ; Pt declined amputation. ESR 39 on 03/18/2018. S/p Levaquin x 6 weeks, ESR 60 01/13/19 - Hematoma within the right lateral abdominal wall musculature which has developed since the previous study done 12/13/2018 measuring 7.3 x 4.6 cm in cross diameter and extending an acrylic that dimension approximately 10.7 cm from the level of the superior pole of the [place] right kidney to just inferior to the right iliac crest per CT 01/12/19 - Calcification of the vas deferens with a persistent hydrocele within the scrotum per CT 01/12/19 - Bacteremia d/t MSSA 12/09/2018, repeat blood cx 12/12/18 NGTD - MRSA and K. pneumoniae in urine cx 12/09/2018 - UA was neg for pyuria - Hx mild subtle increased activity within the upper aspect of LUE, nonspecific, on WBC tagged scan on 04/05/2018 - Hx OM of R 3rd fingertip (XR showed periosteal reaction at the tip of R 3rd distal phalanx, suspicious for OM, MRI showed cellulitis of distal R 4th phalanx, without OM) and L 2nd fingertip (XR showed cortical irregularity at the tuft of L 2nd distal phalanx with overlying soft tissue defect, suggesting early OM, MRI showed OM at L 2nd distal phalanx with, cellulitis about L 2nd distal phalanx without drainable fluid collection.) - Hx OM of R 2nd finger s/p amputation at proximal phalanx neck, and h/o OM of L 3rd finger s/p amputation at middle and distal phalanges - Acute on chronic renal failure - Hyperkalemia with metabolic acidosis - slowly improving with sodium bicarb - Hx ESRD, was on HD - S/p renal transplant in 2009 (on tacrolimus, mycophenolate and prednisone), chronic renal insufficiency at baseline - DM - Hgb A1c 10.5% - Hx Juan's esophagus and gastritis s/p EGD on 08/12/2017. No H. pylori on Bx - BLE atherosclerosis - Seen by Vascular Surgery during last admit - Onychomycosis, tinea pedis - Seen by Supervisory Training Specialist during last admit - Rheumatoid arthritis - Chronic HCV infection - HTN - Dyslipidemia - Hx polysubstance and IV drug use. 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 psychosis - on Lexapro - Abdominal distention and pain Recommendation: Monitor closely off antibiotic S/p Ceftriaxone F/u with all cxs Above plan d/w via [email or web address] Consultation Date/Type/Reason Admit Date/Time March 17, 2019 at 13:23 Initial Consult Date 03/17/19 Requesting Provider: LUPE KAPLAN MD Date/Time of Note DATE: 03/23/19 TIME: 12:30 Detailed Summary Eyes: no complaints ENT: no complaints Respiratory: shortness of breath (at times on 2L NC currently) Cardiovascular: palpitations (with activity ) Gastrointestinal: no complaints Genitourinary: no complaints Musculoskeletal: no complaints Skin: no complaints Neurologic: no complaints Endocrine: no complaints Psychological: no complaints Exam/Review of Systems Exam Vitals Vital Signs Date Temp Pulse Resp B/P (MAP) Pulse Ox O2 O2 Flow FiO2 Time Delivery Rate 03/23/19 98.0 77 18 130/80 98 11:37 (97) 03/23/19 Nasal 2.0 08:16 Cannula 03/23/19 21 01:51 Intake and Output 03/22/19 03/22/19 03/23/19 1414:59 22:59 06:59 IntakeIntake Total 700 ml OutputOutput Total 400 ml BalanceBalance 300 ml Exam Constitutional: alert Psych: nl mood/affect, no complaints Head: normocephalic, atraumatic Eyes: EOMI, PERRL Neck: supple Respiratory: clear to auscultation, normal air movement; No congested cough, No crackles/rales, No wheezing Cardiovascular: regular rate and rhythm Gastrointestinal: soft, non-tender; No rebound or guarding Musculoskeletal: nl extremities to inspection 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: nl mental status, nl speech Skin: ecchymosis (chest and left sided abdomen and back), other (LUE and finger wounds healed) Results Result Diagram: 03/19/19 0618 03/22/19 0543 Results 24hrs Laboratory Tests Test 03/22/19 14:30 03/22/19 17:23 03/22/19 21:55 03/23/19 03:43 Blood Gas Blood arterial Specimen Source Arterial Blood 03/22/2019 2:49:5 Date Drawn 3 PM Arterial Blood pH 7.380 (Temp corrected) Arterial Blood 35.0 pCO2 (Temp correct) Arterial Blood 80.8 pO2 (Temp corrected) Arterial Blood 20.2 L HCO3 Arterial Blood -4.4 L Base Excess Arterial Blood 95.3 Oxygen Saturation Presley Test ACCEPTAB Arterial Blood Right Brachial Gas Puncture Site Arterial 0.3 Blood Carboxyhemo globin Arterial Blood 0.4 Methemoglobin Blood Gas A-a O2 27.0 H Differential Oxyhemoglobin 94.6 Percent Blood Gas 37.0 Temperature Blood Gas ROOM AIR Modality FiO2 21.0 Blood Gas TM Notified Whom Blood Gas 03/22/2019 2:57:3 Notified Time 4 PM Bedside Glucose 189 147 165 Test 03/23/19 08:10 03/23/19 12:17 Bedside Glucose 162 214 Medications Medication Current Medications Prednisone (Prednisone) 5 mg DAILY PO Last administered on 03/23/19at 08:16; A dmin Dose 5 MG; Start 03/17/19 at 09:00 IV Flush (NS 3 ml) 3 ml PER PROTOCOL IV ; Start 03/16/19 at 17:30 Ondansetron HCl (Zofran Inj) 4 mg Q6H PRN IV NAUSEA/VOMITING Last administered on 03/17/19at 20:16; Admin Dose 4 MG; Start 03/16/19 at 17:30 Aspirin (Aspirin) 81 mg DAILY PO Last administered on 03/23/19at 08:15; Admin Dose 81 MG; Start 03/17/19 at 09:00 Nitroglycerin (Nitroglycerin (Sl Tab) 0.4 Mg) 1 tab Q5M PRN SL .CHEST PAIN; Start 03/16/19 at 17:30 Acetaminophen (Tylenol Tab) 650 mg Q6H PRN PO .PAIN 1-3 OR TEMP; Start 03/16/19 at 17:30 Morphine Sulfate (morphine) 2 mg Q4H PRN IV .PAIN 7-10 Last administered on 03/19/19at 01:02; Admin Dose 2 MG; Start 03/16/19 at 17:30 Zolpidem Tartrate (Ambien) 5 mg QHS PRN PO .INSOMNIA Last administered on 03/18/19at 00:00; Admin Dose 5 MG; Start 03/16/19 at 17:30 Docusate Sodium (Colace) 100 mg Q12H PO Last administered on 03/23/19at 06:18; A dmin Dose 100 MG; Start 03/16/19 at 17:30 Bisacodyl (Dulcolax) 5 mg DAILY PRN PO .CONSTIPATION; Start 03/16/19 at 17:30 Miscellaneous Information 1 ea NOTE XX ; Start 03/16/19 at 18:00 Glucose (Glutose) 15 gm Q15M PRN PO DECREASED GLUCOSE; Start 03/16/19 at 18:00 Glucose (Glutose) 22.5 gm Q15M PRN PO DECREASED GLUCOSE; Start 03/16/19 at 18:00 Dextrose (D50w Syringe) 25 ml Q15M PRN IV DECREASED GLUCOSE; Start 03/16/19 at 18:00 Dextrose (D50w Syringe) 50 ml Q15M PRN IV DECREASED GLUCOSE; Start 03/16/19 at 18:00 Glucagon (Glucagen) 1 mg Q15M PRN IM DECREASED GLUCOSE; Start 03/16/19 at 18:00 Glucose (Glutose) 15 gm Q15M PRN BUCCAL DECREASED GLUCOSE; Start 03/16/19 at 18:00 Pantoprazole (Protonix Tab) 40 mg DAILY@06 PO Last administered on 03/23/19at 06:18; Admin Dose 40 MG; Start 03/17/19 at 06:00 Tacrolimus (Prograf) 2 mg AM PO Last administered on 03/23/19at 08:15; Admin Dose 2 MG; Start 03/18/19 at 09:00 Mycophenolate Sodium (Myfortic) 180 mg Q12 PO Last administered on 03/23/19 08:14; Admin Dose 180 MG; Start 03/17/19 at 21:00 Diagnostic Test (Pha) (Accu-Chek) 1 ea 02 XX Last administered on 03/22/19 01:23; Admin Dose 1 EA; Start 03/18/19 at 02:00 Guaifenesin/ Dextromethorphan (Robitussin Dm Liquid Cup) 10 ml Q4H PRN PO COUGH; Start 03/18/19 at 14:30 Hydralazine HCl (Apresoline) 10 mg Q4H PRN IV ELEVATED BLOOD PRESSURE; Start 03/18/19 at 15:30 Metoclopramide HCl (Reglan) 5 mg TID PO Last administered on 03/23/19 12:21; Admin Dose 5 MG; Start 03/18/19 at 17:00 Simethicone (Mylicon) 80 mg Q6H PRN PO DISTENSION/GAS/BLOATING Last administered on 03/19/19 01:00; Admin Dose 80 MG; Start 03/18/19 at 17:30 Insulin Aspart (Novolog Insulin Pen) NOVOLOG *MODERATE* ALGORITHM WITH MEALS BEDTIME SC Last administered on 03/23/19 12:21; Admin Dose 4 UNIT; Start 03/03 04/21 at 21:00 Sodium Bicarbonate (Sodium Bicarbonate Tab) 650 mg BID PO Last administered on 03/23/19 08:15; Admin Dose 650 MG; Start 03/19/19 at 14:00 Ergocalciferol (Drisdol) 50,000 unit [place]@09 PO Last administered on 03/21/19 09:54; Admin Dose 50,000 UNIT; Start 03/21/19 at 09:00 Acetaminophen/ Hydrocodone Bitart ([place] (5/325)) 2 tab Q4H PRN PO MODERATE to sever 5-10 Last administered on 03/23/19 10:44; Admin Dose 2 TAB; Start 03/20/19 at 22:30 Tacrolimus (Prograf) 2 mg HS PO Last administered on 03/22/19 22:05; Admin Dose 2 MG; Start 03/22/19 at 21:00 Albuterol/ Ipratropium (Duoneb) 3 ml Q4H RESP THERAPY PRN HHN SHORTNESS OF BREATH; Start 03/23/19 at 04:00 ESTEFANI SAUCEDA NP March 23, 2019 12:30
--- NOTE | 2019-03-23 16:52 | PN ---
Date/Time of Note Date/Time of Note DATE: 03/23/19 TIME: 16:47 Assessment/Plan VTE Prophylaxis Risk score (from [facility])>0 risk: 2 SCD applied (from [facility]): Yes Pharmacological prophylaxis: NA/contraindicated Pharm contraindication: anticoag not tolerated Lines/Catheters IV [facility]ter Type [facility]from [facility] Mid Line Urinary Cath still in place: No Assessment/Plan Hospital Course Patient status post Lasix, chest x-ray noted, continue breathing treatment, IS. Assessment/Plan -Possible sepsis secondary to possible pneumonia and UTI, s/p Rocephin. Dr. Geovanna sanches is following in infection disease consultation. -Acute renal failure on chronic kidney disease stage IV, status post cadaveric kidney transplant [place] 2009. Dr. Allen is following in nephrology consultation. -Hyperkalemia, status post Kayexalate -Moderate hydronephrosis, Dr. Noguera is following in urology consultation. -Possible pancreatitis, monitor lipase -Diabetes mellitus type 2 with diabetic neuropathy. HbgA1C is 6.2. Continue Tradjenta, Lantus and NovoLog. -Hypertension. -Anemia -Chronic HCV infection -Rheumatoid arthritis -History of polysubstance and IV drug use Further recommendations based on clinical course. Plan of care discussed with Dr. Maier. Result Diagram: 03/19/19 0618 03/22/19 0543 Results 24hrs Laboratory Tests Test 03/22/19 17:23 03/22/19 21:55 03/23/19 03:43 03/23/19 08:10 Bedside Glucose 189 147 165 162 Test 03/23/19 12:17 Bedside Glucose 214 Exam/Review of Systems Exam Vitals Vital Signs Date Temp Pulse Resp B/P (MAP) Pulse Ox O2 O2 Flow FiO2 Time Delivery Rate 03/23/19 98.0 78 18 127/79 98 16:44 (95) 03/23/19 Nasal 2.0 08:16 Cannula 03/23/19 21 01:51 Intake and Output 03/22/19 03/22/19 03/23/19 1515:00 23:00 07:00 IntakeIntake Total 700 ml OutputOutput Total 400 ml BalanceBalance 300 ml Exam Constitutional: alert, oriented Respiratory: clear to auscultation Cardiovascular: regular rate and rhythm Gastrointestinal: soft, tender Musculoskeletal: nl extremities to inspection Extremities: normal pulses 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: nl mental status Results Results 24hrs Laboratory Tests Test 03/22/19 17:23 03/22/19 21:55 03/23/19 03:43 03/23/19 08:10 Bedside Glucose 189 147 165 162 Test 03/23/19 12:17 Bedside Glucose 214 Medications Medication Current Medications Prednisone (Prednisone) 5 mg DAILY PO Last administered on 03/23/19at 08:16; Admin Dose 5 MG; Start 03/17/19 at 09:00 IV Flush (NS 3 ml) 3 ml PER PROTOCOL IV ; Start 03/16/19 at 17:30 Ondansetron HCl (Zofran Inj) 4 mg Q6H PRN IV NAUSEA/VOMITING Last administered on 03/17/19at 20:16; Admin Dose 4 MG; Start 03/16/19 at 17:30 Aspirin (Aspirin) 81 mg DAILY PO Last administered on 03/23/19at 08:15; Admin Do se 81 MG; Start 03/17/19 at 09:00 Nitroglycerin (Nitroglycerin (Sl Tab) 0.4 Mg) 1 tab Q5M PRN SL .CHEST PAIN; Start 03/16/19 at 17:30 Acetaminophen (Tylenol Tab) 650 mg Q6H PRN PO .PAIN 1-3 OR TEMP; Start 03/16/19 at 17:30 Morphine Sulfate (morphine) 2 mg Q4H PRN IV .PAIN 7-10 Last administered on 03/19/19at 01:02; Admin Dose 2 MG; Start 03/16/19 at 17:30 Zolpidem Tartrate (Ambien) 5 mg QHS PRN PO .INSOMNIA Last administered on 03/18/19at 00:00; Admin Dose 5 MG; Start 03/16/19 at 17:30 Docusate Sodium (Colace) 100 mg Q12H PO Last administered on 03/23/19at 06:18; Admin Dose 100 MG; Start 03/16/19 at 17:30 Bisacodyl (Dulcolax) 5 mg DAILY PRN PO .CONSTIPATION; Start 03/16/19 at 17:30 Miscellaneous Information 1 ea NOTE XX ; Start 03/16/19 at 18:00 Glucose (Glutose) 15 gm Q15M PRN PO DECREASED GLUCOSE; Start 03/16/19 at 18:00 Glucose (Glutose) 22.5 gm Q15M PRN PO DECREASED GLUCOSE; Start 03/16/19 at 18:00 Dextrose (D50w Syringe) 25 ml Q15M PRN IV DECREASED GLUCOSE; Start 03/16/19 at 18:00 Dextrose (D50w Syringe) 50 ml Q15M PRN IV DECREASED GLUCOSE; Start 03/16/19 at 18:00 Glucagon (Glucagen) 1 mg Q15M PRN IM DECREASED GLUCOSE; Start 03/16/19 at 18:00 Glucose (Glutose) 15 gm Q15M PRN BUCCAL DECREASED GLUCOSE; Start 03/16/19 at 18:00 Pantoprazole (Protonix Tab) 40 mg DAILY@06 PO Last administered on 03/23/19at 06:18; Admin Dose 40 MG; Start 03/17/19 at 06:00 Tacrolimus (Prograf) 2 mg AM PO Last administered on 03/23/19at 08:15; Admin Dose 2 MG; Start 03/18/19 at 09:00 Mycophenolate Sodium (Myfortic) 180 mg Q12 PO Last administered on 03/23/19at 08:14; Admin Dose 180 MG; Start 03/17/19 at 21:00 Diagnostic Test (Pha) (Accu-Chek) 1 ea 02 XX Last administered on 03/22/19at 01:23; Admin Dose 1 EA; Start 03/18/19 at 02:00 Guaifenesin/ Dextromethorphan (Robitussin Dm Liquid Cup) 10 ml Q4H PRN PO COUGH; Start 03/18/19 at 14:30 Hydralazine HCl (Apresoline) 10 mg Q4H PRN IV ELEVATED BLOOD PRESSURE; Start 03/18/19 at 15:30 Metoclopramide HCl (Reglan) 5 mg TID PO Last administered on 03/23/19at 12:21; Admin Dose 5 MG; Start 03/18/19 at 17:00 Simethicone (Mylicon) 80 mg Q6H PRN PO DISTENSION/GAS/BLOATING Last administered on 03/19/19at 01:00; Admin Dose 80 MG; Start 03/18/19 at 17:30 Insulin Aspart (Novolog Insulin Pen) NOVOLOG *MODERATE* ALGORITHM WITH MEALS BEDTIME SC Last administered on 03/23/19at 12:21; Admin Dose 4 UNIT; Start 03/18/19 at 21:00 Sodium Bicarbonate (Sodium Bicarbonate Tab) 650 mg BID PO Last administered on 03/23/19at 08:15; Admin Dose 650 MG; Start 03/19/19 at 14:00 Ergocalciferol (Drisdol) 50,000 unit [place]@09 PO Last administered on 03/21/19at 09:54; Admin Dose 50,000 UNIT; Start 03/21/19 at 09:00 Acetaminophen/ Hydrocodone Bitart ([place] (5/325)) 2 tab Q4H PRN PO MODERATE to sever 5-10 Last administered on 03/23/19at 10:44; Admin Dose 2 TAB; Start 03/20/19 at 22:30 Tacrolimus (Prograf) 2 mg HS PO Last administered on 03/22/19at 22:05; Admin Dose 2 MG; Start 03/22/19 at 21:00 Albuterol/ Ipratropium (Duoneb) 3 ml Q4H RESP THERAPY PRN HHN SHORTNESS OF BREATH; Start 03/23/19 at 04:00 LETI RODRIGUEZ March 23, 2019 16:52
[2019-03-23] MEDS: ALBUTEROL/IPRATROPIUM (NEB) 3 ML AMP HHN SCH (19:58)
[2019-03-24] VITALS (13 sets, daily range): BP systolic 126–166; BP diastolic 53–86; PULSE 72–130; RESP 16–18
[2019-03-24] MEDS: HYDROCODONE/APAP (5/325) TAB PO PRN ×5 (00:38→22:02)
[2019-03-24] MEDS: ACCU-CHEK XX SCH (02:00)
[2019-03-24] MEDS: DOCUSATE SODIUM 100 MG CAP PO SCH ×2 (06:19→17:45)
[2019-03-24] MEDS: PANTOPRAZOLE (EC) 40 MG TAB PO SCH (06:19)
[2019-03-24] MEDS: ALBUTEROL/IPRATROPIUM (NEB) 3 ML AMP HHN SCH ×3 (08:02→21:44)
[2019-03-24] MEDS: MYCOPHENOLATE (SR) 180 MG TAB PO SCH ×2 (08:28→21:37)
[2019-03-24] MEDS: METOCLOPRAMIDE 5 MG TAB PO SCH ×3 (08:29→21:38)
[2019-03-24] MEDS: ASPIRIN 81 MG TAB PO SCH (08:29)
[2019-03-24] MEDS: NA BICARBONATE 650 MG TAB PO SCH ×2 (08:29→21:38)
[2019-03-24] MEDS: TACROLIMUS 1 MG CAP PO SCH ×2 (08:29→21:38)
[2019-03-24] MEDS: predniSONE 5 MG TAB PO SCH (08:29)
[2019-03-24] MEDS: BALSAM PERU/CASTOR OIL 60 GM TUBE TOP SCH (08:31)
[2019-03-24] MEDS: INSULIN ASPART [NOVOLOG] 3 ML PEN SC SCH ×4 (08:31→21:00)
--- NOTE | 2019-03-24 09:35 | CONS ---
Assessment/Plan Assessment/Plan Assessment/Plan (Daily) Hyperkalemia, could be secondary to worsening renal failure/Acidosis resolved. enal US showed hydronephrosis of transplant kidney, acute 2. Abdominal pain with chills. NO fever 4. Acute on chronic renal failure. The patient had chronic kidney disease IV in the past with a creatinine of 3.2 to 3.4. It could be exacerbated by acute hemodynamic changes with sepsis. vs hydronephrosis vs ATN vs progression of disease, pt has underlying DM nephropathy, and is improving 5. Elevated lipase.? Pancreatitis 6. Urinary tract infection. 7. Pneumonia. 8. Anemia. 9. History of hepatitis C. 10. History of donor renal transplantation. 11. metabolic acidosis likely secondary to renal failure 12. Non compliance He had refused p.o. Kayexalate and V[place] 13, severe acidosis 14. vit d deficiency 15 sob due to bronchitis vs pul edema with slight coarse breath sounds on rt base, ABG neg for hypoxia Assessment/Plan (Daily) - No new labs today, recorder today pt agreed - one dose of lasix iv today, fluid restriction - consider CT chest /pull consult , coarse rt lung sounds, on nebs, iv lasix? abx, ID on case - cw prograft 2 mg/2 now, mycophenolate and cw prednisone. - c/w ergocalciferol 50 000 u weekly -c/w Bicarb tabs - urology consult appreciated continue with frequentbladder emptying - renally dose all meds -phos level normal Consultation Date/Type/Reason Admit Date/Time March 17, 2019 at 13:23 Initial Consult Date Requesting Provider: LUPE KAPLAN MD Date/Time of Note DATE: 03/24/19 TIME: 09:33 24 HR Interval Summary Free Text/Dictation sob Exam/Review of Systems Exam Vitals Vital Signs Date Temp Pulse Resp B/P (MAP) Pulse Ox O2 O2 Flow FiO2 Time Delivery Rate 03/24/19 76 09:15 03/24/19 18 97 21 08:12 03/24/19 97.2 126/53 Nasal 07:23 (77) Cannula 03/24/19 2.0 04:11 Intake and Output 03/23/19 03/23/19 03/24/19 1515:00 23:00 07:00 IntakeIntake Total 700 ml OutputOutput Total 600 ml BalanceBalance 100 ml Exam Constitutional: alert, oriented Head: normocephalic Neck: supple Respiratory: coarse on rt ++ Cardiovascular: regular rate and rhythm Gastrointestinal: soft Skin: other (scabs, left arm non functin fistula) trace edema Results Result Diagram: 03/22/19 0543 Results 24hrs Laboratory Tests Test 03/23/19 12:17 03/23/19 17:16 03/23/19 21:11 03/24/19 02:14 Bedside Glucose 214 245 H 182 199 Test 03/24/19 08:27 Bedside Glucose 214 Medications Medication Current Medications Prednisone (Prednisone) 5 mg DAILY PO Last administered on 03/24/19at 08:29; Admin Dose 5 MG; Start 03/17/19 at 09:00 IV Flush (NS 3 ml) 3 ml PER PROTOCOL IV ; Start 03/16/19 at 17:30 Ondansetron HCl (Zofran Inj) 4 mg Q6H PRN IV NAUSEA/VOMITING Last administered on 03/17/19at 20:16; Admin Dose 4 MG; Start 03/16/19 at 17:30 Aspirin (Aspirin) 81 mg DAILY PO Last administered on 03/24/19at 08:29; Admin Dose 81 MG; Start 03/17/19 at 09:00 Nitroglycerin (Nitroglycerin (Sl Tab) 0.4 Mg) 1 tab Q5M PRN SL .CHEST PAIN; Start 03/16/19 at 17:30 Acetaminophen (Tylenol Tab) 650 mg Q6H PRN PO .PAIN 1-3 OR TEMP; Start 03/16/19 at 17:30 Morphine Sulfate (morphine) 2 mg Q4H PRN IV .PAIN 7-10 Last administered on 03/19/19at 01:02; Admin Dose 2 MG; Start 03/16/19 at 17:30 Zolpidem Tartrate (Ambien) 5 mg QHS PRN PO .INSOMNIA Last administered on 03/18/19at 00:00; Admin Dose 5 MG; Start 03/16/19 at 17:30 Docusate Sodium (Colace) 100 mg Q12H PO Last administered on 03/24/19at 06:19; Admin Dose 100 MG; Start 03/16/19 at 17:30 Bisacodyl (Dulcolax) 5 mg DAILY PRN PO .CONSTIPATION; Start 03/16/19 at 17:30 Miscellaneous Information 1 ea NOTE XX ; Start 03/16/19 at 18:00 Glucose (Glutose) 15 gm Q15M PRN PO DECREASED GLUCOSE; Start 03/16/19 at 18:00 Glucose (Glutose) 22.5 gm Q15M PRN PO DECREASED GLUCOSE; Start 03/16/19 at 18:00 Dextrose (D50w Syringe) 25 ml Q15M PRN IV DECREASED GLUCOSE; Start 03/16/19 at 18:00 Dextrose (D50w Syringe) 50 ml Q15M PRN IV DECREASED GLUCOSE; Start 03/16/19 at 18:00 Glucagon (Glucagen) 1 mg Q15M PRN IM DECREASED GLUCOSE; Start 03/16/19 at 18:00 Glucose (Glutose) 15 gm Q15M PRN BUCCAL DECREASED GLUCOSE; Start 03/16/19 at 18:00 Pantoprazole (Protonix Tab) 40 mg DAILY@06 PO Last administered on 03/24/19at 06:19; Admin Dose 40 MG; Start 03/17/19 at 06:00 Tacrolimus (Prograf) 2 mg AM PO Last administered on 03/24/19at 08:29; Admin Dose 2 MG; Start 03/18/19 at 09:00 Mycophenolate Sodium (Myfortic) 180 mg Q12 PO Last administered on 03/24/19at 08:28; Admin Dose 180 MG; Start 03/17/19 at 21:00 Diagnostic Test (Pha) (Accu-Chek) 1 ea 02 XX Last administered on 03/22/19at 01:23; Admin Dose 1 EA; Start 03/18/19 at 02:00 Guaifenesin/ Dextromethorphan (Robitussin Dm Liquid Cup) 10 ml Q4H PRN PO COUGH; Start 03/18/19 at 14:30 Hydralazine HCl (Apresoline) 10 mg Q4H PRN IV ELEVATED BLOOD PRESSURE; Start 03/18/19 at 15:30 Metoclopramide HCl (Reglan) 5 mg TID PO Last administered on 03/24/19at 08:29; Admin Dose 5 MG; Start 03/18/19 at 17:00 Simethicone (Mylicon) 80 mg Q6H PRN PO DISTENSION/GAS/BLOATING Last administered on 03/19/19 01:00; Admin Dose 80 MG; Start 03/18/19 at 17:30 Insulin Aspart (Novolog Insulin Pen) NOVOLOG *MODERATE* ALGORITHM WITH MEALS BEDTIME SC Last administered on 03/24/19 08:31; Admin Dose 4 UNIT; Start 03/18/19 at 21:00 Sodium Bicarbonate (Sodium Bicarbonate Tab) 650 mg BID PO Last administered on 03/24/19 08:29; Admin Dose 650 MG; Start 03/19/19 at 14:00 Ergocalciferol (Drisdol) 50,000 unit [place]@09 PO Last administered on 03/21/19 09:54; Admin Dose 50,000 UNIT; Start 03/21/19 at 09:00 Acetaminophen/ Hydrocodone Bitart ([place] (5/325)) 2 tab Q4H PRN PO MODERATE to sever 5-10 Last administered on 03/24/19 06:31; Admin Dose 2 TAB; Start 03/20/19 at 22:30 Tacrolimus (Prograf) 2 mg HS PO Last administered on 03/23/19 21:20; Admin Dose 2 MG; Start 03/22/19 at 21:00 Albuterol/ Ipratropium (Duoneb) 3 ml Q4H RESP THERAPY PRN HHN SHORTNESS OF BREATH; Start 03/23/19 at 04:00 Albuterol/ Ipratropium (Duoneb) 3 ml Q6HWA RESP THERAPY HHN Last administered on 03/24/19 08:02; Admin Dose 3 ML; Start 03/23/19 at 20:00 HARVINDER BLOOD MD March 24, 2019 09:35
[2019-03-24] MEDS ORDERED: FUROSEMIDE 20 MG INJ IV ONE (10:00)
--- NOTE | 2019-03-24 14:10 | PN ---
Date/Time of Note Date/Time of Note DATE: 03/24/19 TIME: 14:08 Assessment/Plan VTE Prophylaxis Risk score (from Ns)>0 risk: 2 SCD applied (from Ns): Yes Pharmacological prophylaxis: NA/contraindicated Pharm contraindication: anticoag not tolerated Lines/Catheters IV [facility]ter Type [facility]from [facility]): Mid Line Central line still needed: Yes Urinary Cath still in place: No Assessment/Plan Hospital Course Patient with shortness of breath and diminished lung sounds, will obtain CT of the chest, Dr. Bush is asked to see patient in pulmonology consultation. Hemoglobin is 6.9 will transfuse 1 unit of packed red blood cells. Blood sugar is above 200 patient tolerates diet well now so will add Lantus to insulin regimen. Assessment/Plan -Possible sepsis secondary to possible pneumonia and UTI, s/p Rocephin. Dr. Olmstead is following in infection disease consultation. -Acute renal failure on chronic kidney disease stage IV, status post cadaveric kidney transplant [place] 2009. Dr[address] Allen is following in nephrology consultation. -Hyperkalemia, status post Kayexalate -Moderate hydronephrosis, Dr. Noguera is following in urology consultation. -Possible pancreatitis, monitor lipase -Diabetes mellitus type 2 with diabetic neuropathy. HbgA1C is 6.2. Continue Tradjenta, Lantus and NovoLog. -Hypertension. -Anemia -Chronic HCV infection -Rheumatoid arthritis -History of polysubstance and IV drug use Further recommendations based on clinical course. Plan of care discussed with Dr. Maier. Result Diagram: 03/24/1918 03/24/19 0920 Results 24hrs Laboratory Tests Test 03/23/19 17:16 03/23/19 21:11 03/24/19 02:14 03/24/19 08:27 Bedside Glucose 245 H 182 199 214 Test 03/24/19 09:18 03/24/19 09:20 03/24/19 12:57 White Blood Count 5.2 # Red Blood Count 2.10 #L Hemoglobin 6.9 #*L Hematocrit 20.8 #L Mean Corpuscular 99.0 Volume Mean Corpuscular 32.9 Hemoglobin Mean Corpuscular 33.2 Hemoglobin Concent Red Cell 13.7 Distribution Width Platelet Count 185 Mean Platelet Volume 10.0 Immature 0.400 Granulocytes % Neutrophils % 70.9 Segmented 69 Neutrophils % (Manual) Band Neutrophils % 2 (Manual) Lymphocytes % 17.2 Lymphocytes % 17 (Manual) Monocytes % 6.6 Monocytes % (Manual) 3 Eosinophils % 4.1 Eosinophils % 8 H (Manual) Basophils % 0.8 Basophils % (Manual) 1 Nucleated Red Blood 1 H Cells % Immature 0.020 Granulocytes # Neutrophils # 3.7 Neutrophils # 3.6 (Manual) Band Neutrophils # 0.1 Lymphocytes (Manual) 0.8 Lymphocytes # 0.9 Monocytes # 0.3 Monocytes # (Manual) 0.1 L Eosinophils # 0.2 Basophils # 0.0 Basophils # (Manual) 0.0 Nucleated Red Blood 0.0 Cells # Platelet Estimate NORMAL Dimorphic Red Blood 1+ Cells Hypochromasia 1+ Poikilocytosis 1+ Anisocytosis 1+ Microcytosis 1+ Sodium Level 137 Potassium Level 4.3 Chloride Level 109 Carbon Dioxide Level 20 L Anion Gap 8 Blood Urea Nitrogen 65 H Creatinine 3.55 H Est Glomerular 18 L Filtrat Rate mL/min Glucose Level 192 Calcium Level 8.8 Bedside Glucose 241 H Exam/Review of Systems Exam Vitals Vital Signs Date Temp Pulse Resp B/P (MAP) Pulse Ox O2 O2 Flow FiO2 Time Delivery Rate 03/24/19 77 18 98 Nasal 28 13:25 Cannula 03/24/19 98.7 131/86 11:30 (101) 03/24/19 2.0 08:30 Intake and Output 03/23/19 03/23/19 03/24/19 1515:00 23:00 07:00 IntakeIntake Total 700 ml OutputOutput Total 600 ml BalanceBalance 100 ml Exam Constitutional: alert, oriented Respiratory: clear to auscultation Cardiovascular: regular rate and rhythm Gastrointestinal: soft, tender Musculoskeletal: nl extremities to inspection Extremities: normal pulses 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: nl mental status Results Results 24hrs Laboratory Tests Test 03/23/19 17:16 03/23/19 21:11 03/24/19 02:14 03/24/19 08:27 Bedside Glucose 245 H 182 199 214 Test 03/24/19 09:18 03/24/19 09:20 03/24/19 12:57 White Blood Count 5.2 # Red Blood Count 2.10 #L Hemoglobin 6.9 #*L Hematocrit 20.8 #L Mean Corpuscular 99.0 Volume Mean Corpuscular 32.9 Hemoglobin Mean Corpuscular 33.2 Hemoglobin Concent Red Cell 13.7 Distribution Width Platelet Count 185 Mean Platelet Volume 10.0 Immature 0.400 Granulocytes % Neutrophils % 70.9 Segmented 69 Neutrophils % (Manual) Band Neutrophils % 2 (Manual) Lymphocytes % 17.2 Lymphocytes % 17 (Manual) Monocytes % 6.6 Monocytes % (Manual) 3 Eosinophils % 4.1 Eosinophils % 8 H (Manual) Basophils % 0.8 Basophils % (Manual) 1 Nucleated Red Blood 1 H Cells % Immature 0.020 Granulocytes # Neutrophils # 3.7 Neutrophils # 3.6 (Manual) Band Neutrophils # 0.1 Lymphocytes (Manual) 0.8 Lymphocytes # 0.9 Monocytes # 0.3 Monocytes # (Manual) 0.1 L Eosinophils # 0.2 Basophils # 0.0 Basophils # (Manual) 0.0 Nucleated Red Blood 0.0 Cells # Platelet Estimate NORMAL Dimorphic Red Blood 1+ Cells Hypochromasia 1+ Poikilocytosis 1+ Anisocytosis 1+ Microcytosis 1+ Sodium Level 137 Potassium Level 4.3 Chloride Level 109 Carbon Dioxide Level 20 L Anion Gap 8 Blood Urea Nitrogen 65 H Creatinine 3.55 H Est Glomerular 18 L Filtrat Rate mL/min Glucose Level 192 Calcium Level 8.8 Bedside Glucose 241 H Medications Medication Current Medications Prednisone (Prednisone) 5 mg DAILY PO Last administered on 03/24/19at 08:29; Admin Dose 5 MG; Start 03/17/19 at 09:00 IV Flush (NS 3 ml) 3 ml PER PROTOCOL IV ; Start 03/16/19 at 17:30 Ondansetron HCl (Zofran Inj) 4 mg Q6H PRN IV NAUSEA/VOMITING Last administered on 03/17/19at 20:16; Admin Dose 4 MG; Start 03/16/19 at 17:30 Aspirin (Aspirin) 81 mg DAILY PO Last administered on 03/24/19at 08:29; Admin Dose 81 MG; Start 03/17/19 at 09:00 Nitroglycerin (Nitroglycerin (Sl Tab) 0.4 Mg) 1 tab Q5M PRN SL .CHEST PAIN; Start 03/16/19 at 17:30 Acetaminophen (Tylenol Tab) 650 mg Q6H PRN PO .PAIN 1-3 OR TEMP; Start 03/16/19 at 17:30 Morphine Sulfate (morphine) 2 mg Q4H PRN IV .PAIN 7-10 Last administered on 03/19/19 01:02; Admin Dose 2 MG; Start 03/16/19 at 17:30 Zolpidem Tartrate (Ambien) 5 mg QHS PRN PO .INSOMNIA Last administered on 03/18/19at 00:00; Admin Dose 5 MG; Start 03/16/19 at 17:30 Docusate Sodium (Colace) 100 mg Q12H PO Last administered on 03/24/19at 06:19; Admin Dose 100 MG; Start 03/16/19 at 17:30 Bisacodyl (Dulcolax) 5 mg DAILY PRN PO .CONSTIPATION; Start 03/16/19 at 17:30 Miscellaneous Information 1 ea NOTE XX ; Start 03/16/19 at 18:00 Glucose (Glutose) 15 gm Q15M PRN PO DECREASED GLUCOSE; Start 03/16/19 at 18:00 Glucose (Glutose) 22.5 gm Q15M PRN PO DECREASED GLUCOSE; Start 03/16/19 at 18:00 Dextrose (D50w Syringe) 25 ml Q15M PRN IV DECREASED GLUCOSE; Start 03/16/19 at 18:00 Dextrose (D50w Syringe) 50 ml Q15M PRN IV DECREASED GLUCOSE; Start 03/16/19 at 18:00 Glucagon (Glucagen) 1 mg Q15M PRN IM DECREASED GLUCOSE; Start 03/16/19 at 18:00 Glucose (Glutose) 15 gm Q15M PRN BUCCAL DECREASED GLUCOSE; Start 03/16/19 at 18:00 Pantoprazole (Protonix Tab) 40 mg DAILY@06 PO Last administered on 03/24/19at 06:19; Admin Dose 40 MG; Start 03/17/19 at 06:00 Tacrolimus (Prograf) 2 mg AM PO Last administered on 03/24/19at 08:29; Admin Dose 2 MG; Start 03/18/19 at 09:00 Mycophenolate Sodium (Myfortic) 180 mg Q12 PO Last administered on 03/24/19at 08:28; Admin Dose 180 MG; Start 03/17/19 at 21:00 Diagnostic Test (Pha) (Accu-Chek) 1 ea 02 XX Last administered on 03/22/19at 01:23; Admin Dose 1 EA; Start 03/18/19 at 02:00 Guaifenesin/ Dextromethorphan (Robitussin Dm Liquid Cup) 10 ml Q4H PRN PO COUGH; Start 03/18/19 at 14:30 Hydralazine HCl (Apresoline) 10 mg Q4H PRN IV ELEVATED BLOOD PRESSURE; Start 03/18/19 at 15:30 Metoclopramide HCl (Reglan) 5 mg TID PO Last administered on 03/24/19 12:58; Admin Dose 5 MG; Start 03/18/19 at 17:00 Simethicone (Mylicon) 80 mg Q6H PRN PO DISTENSION/GAS/BLOATING Last administered on 03/19/19 01:00; Admin Dose 80 MG; Start 03/18/19 at 17:30 Insulin Aspart (Novolog Insulin Pen) NOVOLOG *MODERATE* ALGORITHM WITH MEALS BEDTIME SC Last administered on 03/24/19 12:59; Admin Dose 6 UNIT; Start 03/18/19 at 21:00 Sodium Bicarbonate (Sodium Bicarbonate Tab) 650 mg BID PO Last administered on 03/24/19 08:29; Admin Dose 650 MG; Start 03/19/19 at 14:00 Ergocalciferol (Drisdol) 50,000 unit [place]@09 PO Last administered on 03/21/19 09:54; Admin Dose 50,000 UNIT; Start 03/21/19 at 09:00 Acetaminophen/ Hydrocodone Bitart ([place] (5/325)) 2 tab Q4H PRN PO MODERATE to sever 5-10 Last administered on 03/24/19 12:59; Admin Dose 2 TAB; Start 03/20/19 at 22:30 Tacrolimus (Prograf) 2 mg HS PO Last administered on 03/23/19 21:20; Admin Dose 2 MG; Start 03/22/19 at 21:00 Albuterol/ Ipratropium (Duoneb) 3 ml Q4H RESP THERAPY PRN HHN SHORTNESS OF BREATH; Start 03/23/19 at 04:00 Albuterol/ Ipratropium (Duoneb) 3 ml Q6HWA RESP THERAPY HHN Last administered on 03/24/19 13:16; Admin Dose 3 ML; Start 03/23/19 at 20:00 LETI RODRIGUEZ March 24, 2019 14:10
--- NOTE | 2019-03-24 15:34 | CONS ---
Assessment/Plan Assessment/Plan Hospital Course (Demo Recall) 1. ARF 2. SOB w/u in progress 3. Possible uti but seems less likely PMH as of last admit: - Anasarca, improved with IV Lasix - Endocarditis - Dr. Olmstead rec'd call from [facility] 01/15/19 regarding this and plan was to complete cefazolin through 01.29.19 - Completing Augmentin for progressive swelling of distal aspect of right ring finger with x-ray showing further of erosion and lucency involving the distal aspect of the distal phalanx of the right ring finger suspicious for osteomyelitis with improved but slight associated soft tissue swelling. ESR 67. - Hx OM of R 4th digit: swelling with new erosive changes and osteopenia of the underlying R 4th distal phalanx, suggestive of osteomyelitis; wound culture grew Serratia on 03/18/18 and Serratia + CoNS (likely colonizer) on 04/04/18 ; Pt declined amputation. ESR 39 on 03/18/2018. S/p Levaquin x 6 weeks, ESR 60 01/13/19 - Hematoma within the right lateral abdominal wall musculature which has developed since the previous study done 12/13/2018 measuring 7.3 x 4.6 cm in cross diameter and extending an acrylic that dimension approximately 10.7 cm from the level of the superior pole of the [place] right kidney to just inferior to the right iliac crest per CT 01/12/19 - Calcification of the vas deferens with a persistent hydrocele within the scrotum per CT 01/12/19 - Bacteremia d/t MSSA 12/09/2018, repeat blood cx 12/12/18 NGTD - MRSA and K. pneumoniae in urine cx 12/09/2018 - UA was neg for pyuria - Hx mild subtle increased activity within the upper aspect of LUE, nonspecific, on WBC tagged scan on 04/05/2018 - Hx OM of R 3rd fingertip (XR showed periosteal reaction at the tip of R 3rd distal phalanx, suspicious for OM, MRI showed cellulitis of distal R 4th phalanx, without OM) and L 2nd fingertip (XR showed cortical irregularity at the tuft of L 2nd distal phalanx with overlying soft tissue defect, suggesting early OM, MRI showed OM at L 2nd distal phalanx with, cellulitis about L 2nd distal phalanx without drainable fluid collection.) - Hx OM of R 2nd finger s/p amputation at proximal phalanx neck, and h/o OM of L 3rd finger s/p amputation at middle and distal phalanges - Acute on chronic renal failure - Hyperkalemia with metabolic acidosis - slowly improving with sodium bicarb - Hx ESRD, was on HD - S/p renal transplant in 2009 (on tacrolimus, mycophenolate and prednisone), chronic renal insufficiency at baseline - DM - Hgb A1c 10.5% - Hx Juan's esophagus and gastritis s/p EGD on 08/12/2017. No H. pylori on Bx - BLE atherosclerosis - Seen by Vascular Surgery during last admit - Onychomycosis, tinea pedis - Seen by Qa Analyst during last admit - Rheumatoid arthritis - Chronic HCV infection - HTN - Dyslipidemia - Hx polysubstance and IV drug use. 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 psychosis - on Lexapro - Abdominal distention and pain R: Monitor closely off antibiotic S/p Ceftriaxone F/u with all cxs Consultation Date/Type/Reason Admit Date/Time March 17, 2019 at 13:23 Initial Consult Date Type of Consult ID Requesting Provider: LUPE KAPLAN MD Date/Time of Note DATE: 03/24/19 TIME: 15:33 Exam/Review of Systems Exam Vitals Vital Signs Date Temp Pulse Resp B/P (MAP) Pulse Ox O2 O2 Flow FiO2 Time Delivery Rate 03/24/19 77 18 98 Nasal 28 13:25 Cannula 03/24/19 98.7 131/86 11:30 (101) 03/24/19 2.0 08:30 Intake and Output 03/23/19 03/23/19 03/24/19 1515:00 23:00 07:00 IntakeIntake Total 700 ml OutputOutput Total 600 ml BalanceBalance 100 ml Results Result Diagram: 03/24/19 0918 03/24/19 0920 Results 24hrs Laboratory Tests Test 03/23/19 17:16 03/23/19 21:11 03/24/19 02:14 03/24/19 08:27 Bedside Glucose 245 H 182 199 214 Test 03/24/19 09:18 03/24/19 09:20 03/24/19 12:57 White Blood Count 5.2 # Red Blood Count 2.10 #L Hemoglobin 6.9 #*L Hematocrit 20.8 #L Mean Corpuscular 99.0 Volume Mean Corpuscular 32.9 Hemoglobin Mean Corpuscular 33.2 Hemoglobin Concent Red Cell 13.7 Distribution Width Platelet Count 185 Mean Platelet Volume 10.0 Immature 0.400 Granulocytes % Neutrophils % 70.9 Segmented 69 Neutrophils % (Manual) Band Neutrophils % 2 (Manual) Lymphocytes % 17.2 Lymphocytes % 17 (Manual) Monocytes % 6.6 Monocytes % (Manual) 3 Eosinophils % 4.1 Eosinophils % 8 H (Manual) Basophils % 0.8 Basophils % (Manual) 1 Nucleated Red Blood 1 H Cells % Immature 0.020 Granulocytes # Neutrophils # 3.7 Neutrophils # 3.6 (Manual) Band Neutrophils # 0.1 Lymphocytes (Manual) 0.8 Lymphocytes # 0.9 Monocytes # 0.3 Monocytes # (Manual) 0.1 L Eosinophils # 0.2 Basophils # 0.0 Basophils # (Manual) 0.0 Nucleated Red Blood 0.0 Cells # Platelet Estimate NORMAL Dimorphic Red Blood 1+ Cells Hypochromasia 1+ Poikilocytosis 1+ Anisocytosis 1+ Microcytosis 1+ Sodium Level 137 Potassium Level 4.3 Chloride Level 109 Carbon Dioxide Level 20 L Anion Gap 8 Blood Urea Nitrogen 65 H Creatinine 3.55 H Est Glomerular 18 L Filtrat Rate mL/min Glucose Level 192 Calcium Level 8.8 Bedside Glucose 241 H Medications Medication Current Medications Prednisone (Prednisone) 5 mg DAILY PO Last administered on 03/24/19at 08:29; Admin Dose 5 MG; Start 03/17/19 at 09:00 IV Flush (NS 3 ml) 3 ml PER PROTOCOL IV ; Start 03/16/19 at 17:30 Ondansetron HCl (Zofran Inj) 4 mg Q6H PRN IV NAUSEA/VOMITING Last administered on 03/17/19at 20:16; Admin Dose 4 MG; Start 03/16/19 at 17:30 Aspirin (Aspirin) 81 mg DAILY PO Last administered on 03/24/19at 08:29; Admin Dose 81 MG; Start 03/17/19 at 09:00 Nitroglycerin (Nitroglycerin (Sl Tab) 0.4 Mg) 1 tab Q5M PRN SL .CHEST PAIN; Start 03/16/19 at 17:30 Acetaminophen (Tylenol Tab) 650 mg Q6H PRN PO .PAIN 1-3 OR TEMP; Start 03/16/19 at 17:30 Morphine Sulfate (morphine) 2 mg Q4H PRN IV .PAIN 7-10 Last administered on 03/19/19at 01:02; Admin Dose 2 MG; Start 03/16/19 at 17:30 Zolpidem Tartrate (Ambien) 5 mg QHS PRN PO .INSOMNIA Last administered on 03/18/19at 00:00; Admin Dose 5 MG; Start 03/16/19 at 17:30 Docusate Sodium (Colace) 100 mg Q12H PO Last administered on 03/24/19at 06:19; Admin Dose 100 MG; Start 03/16/19 at 17:30 Bisacodyl (Dulcolax) 5 mg DAILY PRN PO .CONSTIPATION; Start 03/16/19 at 17:30 Miscellaneous Information 1 ea NOTE XX ; Start 03/16/19 at 18:00 Glucose (Glutose) 15 gm Q15M PRN PO DECREASED GLUCOSE; Start 03/16/19 at 18:00 Glucose (Glutose) 22.5 gm Q15M PRN PO DECREASED GLUCOSE; Start 03/16/19 at 18:00 Dextrose (D50w Syringe) 25 ml Q15M PRN IV DECREASED GLUCOSE; Start 03/16/19 at 18:00 Dextrose (D50w Syringe) 50 ml Q15M PRN IV DECREASED GLUCOSE; Start 03/16/19 at 18:00 Glucagon (Glucagen) 1 mg Q15M PRN IM DECREASED GLUCOSE; Start 03/16/19 at 18:00 Glucose (Glutose) 15 gm Q15M PRN BUCCAL DECREASED GLUCOSE; Start 03/16/19 at 18:00 Pantoprazole (Protonix Tab) 40 mg DAILY@06 PO Last administered on 03/24/19at 06:19; Admin Dose 40 MG; Start 03/17/19 at 06:00 Tacrolimus (Prograf) 2 mg AM PO Last administered on 03/24/19at 08:29; Admin Dose 2 MG; Start 03/18/19 at 09:00 Mycophenolate Sodium (Myfortic) 180 mg Q12 PO Last administered on 03/24/19at 08:28; Admin Dose 180 MG; Start 03/17/19 at 21:00 Diagnostic Test (Pha) (Accu-Chek) 1 ea 02 XX Last administered on 03/22/19 01:23; Admin Dose 1 EA; Start 03/18/19 at 02:00 Guaifenesin/ Dextromethorphan (Robitussin Dm Liquid Cup) 10 ml Q4H PRN PO COUGH; Start 03/18/19 at 14:30 Hydralazine HCl (Apresoline) 10 mg Q4H PRN IV ELEVATED BLOOD PRESSURE; Start 03/18/19 at 15:30 Metoclopramide HCl (Reglan) 5 mg TID PO Last administered on 03/24/19 12:58; Admin Dose 5 MG; Start 03/18/19 at 17:00 Simethicone (Mylicon) 80 mg Q6H PRN PO DISTENSION/GAS/BLOATING Last administered on 03/19/19 01:00; Admin Dose 80 MG; Start 03/18/19 at 17:30 Insulin Aspart (Novolog Insulin Pen) NOVOLOG *MODERATE* ALGORITHM WITH MEALS BEDTIME SC Last administered on 03/24/19 12:59; Admin Dose 6 UNIT; Start 03/18/19 at 21:00 Sodium Bicarbonate (Sodium Bicarbonate Tab) 650 mg BID PO Last administered on 03/24/19 08:29; Admin Dose 650 MG; Start 03/19/19 at 14:00 Ergocalciferol (Drisdol) 50,000 unit [place]@09 PO Last administered on 03/21/19 09:54; Admin Dose 50,000 UNIT; Start 03/21/19 at 09:00 Acetaminophen/ Hydrocodone Bitart ([place] (5/325)) 2 tab Q4H PRN PO MODERATE to sever 5-10 Last administered on 03/24/19 12:59; Admin Dose 2 TAB; Start 03/20/19 at 22:30 Tacrolimus (Prograf) 2 mg HS PO Last administered on 03/23/19 21:20; Admin D ose 2 MG; Start 03/22/19 at 21:00 Albuterol/ Ipratropium (Duoneb) 3 ml Q4H RESP THERAPY PRN HHN SHORTNESS OF BREATH; Start 03/23/19 at 04:00 Albuterol/ Ipratropium (Duoneb) 3 ml Q6HWA RESP THERAPY HHN Last administered on 5/22/19at 13:16; Admin Dose 3 ML; Start 03/23/19 at 20:00 Insulin Glargine (Lantus) 10 units DAILY@2000 SC ; Start 03/24/19 at 20:00 PARAMJIT OLMSTEAD MD March 24, 2019 15:34
[2019-03-24] MEDS: hydrALAzine 20 MG INJ IV PRN (18:07)
[2019-03-24] MEDS: INSULIN GLARGINE [LANTus] (100 UNITS/ML) SYG SC SCH (21:47)
[2019-03-25] VITALS (12 sets, daily range): BP systolic 124–157; BP diastolic 53–84; PULSE 71–107; RESP 16–18
[2019-03-25] MEDS: ACCU-CHEK XX SCH (02:00)
[2019-03-25] MEDS: DOCUSATE SODIUM 100 MG CAP PO SCH ×2 (06:08→17:04)
[2019-03-25] MEDS: PANTOPRAZOLE (EC) 40 MG TAB PO SCH (06:08)
[2019-03-25] MEDS: HYDROCODONE/APAP (5/325) TAB PO PRN ×4 (06:08→20:33)
[2019-03-25] MEDS: INSULIN ASPART [NOVOLOG] 3 ML PEN SC SCH ×4 (07:55→20:42)
[2019-03-25] MEDS: ALBUTEROL/IPRATROPIUM (NEB) 3 ML AMP HHN SCH ×3 (08:13→19:37)
[2019-03-25] MEDS: METOCLOPRAMIDE 5 MG TAB PO SCH ×3 (08:38→20:33)
[2019-03-25] MEDS: TACROLIMUS 1 MG CAP PO SCH ×2 (08:38→20:33)
[2019-03-25] MEDS: ASPIRIN 81 MG TAB PO SCH (08:39)
[2019-03-25] MEDS: predniSONE 5 MG TAB PO SCH (08:39)
[2019-03-25] MEDS: NA BICARBONATE 650 MG TAB PO SCH ×2 (08:39→20:33)
[2019-03-25] MEDS: MYCOPHENOLATE (SR) 180 MG TAB PO SCH ×2 (08:39→20:33)
[2019-03-25] MEDS: BALSAM PERU/CASTOR OIL 60 GM TUBE TOP SCH (08:40)
--- NOTE | 2019-03-25 10:01 | CONS ---
Assessment/Plan Assessment/Plan Assessment/Plan (Daily) CT chest showing bilateral mild bronchiolitis. Assessment recommendations; 1. Patient admitted with abdominal pain due to hyperkalemia with interval resolution. 2. Chronic immunosuppression due to history of cadaveric renal transplant. 3. Likely some element of bronchiolitis causing wheezing and shortness of breath. 4. History of HCV infection. Add Levaquin 50 mg orally daily to be adjusted by pharmacy. Trial of Solu- Medrol 40 mg every 8 hours at least for 6 doses. Continue other supportive measures. Will follow patient. Consultation Date/Type/Reason Admit Date/Time March 17, 2019 at 13:23 Date of Consultation: March 25, 2019 Type of Consult Pulmonary Patient is a 58-year-old male who was admitted on the of this month with complaints of abdominal pain upon evaluation patient was diagnosed with hyperkal emia and has been treated since then however over the last 2 or 3 days patient is now having increasing coughing wheezing and production of green sputum. Patient denies any chest pain, hemoptysis any fever or chills. Past medical history; 1. History of renal failure, status post cadaveric transplant in 2009 maintained on chronic immunosuppression. 2. History of HCV infection. 3. Chronic anemia. 4. History of osteo-mellitus. 5. History of endocarditis status post treatment. Medications; reviewed. Allergies; none. Social history; most of any smoking alcohol abuse. Family history; noncontributory. Occupational history; patient is on disability. Review of systems; denies any headache, seizures, visual changes. Any chest pain, complains of cough with wheezing as well as green sputum production. Denies any further abdominal pain. Any nausea vomiting. Melena or hematochezia. Any weight loss. Any joint symptoms. General exam; middle-aged male, awake alert, currently no distress. Date/Time of Note DATE: 03/25/19 TIME: 09:58 Past Medical History Medical History: diabetes, hypertension, renal disease Home Meds Active Scripts Tacrolimus* (Prograf*) 1 Mg Capsule, 2 MG PO Q12 for 30 Days, CAP Prov:LETI RODRIGUEZ 01/19/19 Reported Medications Insulin Lispro (Humalog) 100 Unit/1 Ml Cartridge, 0 SQ SLIDING SCALE, EA 2-10 UNITS 03/16/19 Mycophenolate Sodium* (Mycophenolic Acid*) 180 Mg Tablet., 180 MG PO Q12, TAB 03/16/19 Prednisone* (Prednisone*) 5 Mg Tab, 5 MG PO DAILY, TAB 12/09/18 Medications Current Medications Prednisone (Prednisone) 5 mg DAILY PO Last administered on 03/25/19at 08:39; Admin Dose 5 MG; Start 03/17/19 at 09:00 IV Flush (NS 3 ml) 3 ml PER PROTOCOL IV ; Start 03/16/19 at 17:30 Ondansetron HCl (Zofran Inj) 4 mg Q6H PRN IV NAUSEA/VOMITING Last administered on 03/17/19at 20:16; Admin Dose 4 MG; Start 03/16/19 at 17:30 Aspirin (Aspirin) 81 mg DAILY PO Last administered on 03/25/19at 08:39; Admin Dose 81 MG; Start 03/17/19 at 09:00 Nitroglycerin (Nitroglycerin (Sl Tab) 0.4 Mg) 1 tab Q5M PRN SL .CHEST PAIN; Start 03/16/19 at 17:30 Acetaminophen (Tylenol Tab) 650 mg Q6H PRN PO .PAIN 1-3 OR TEMP; Start 03/16/19 at 17:30 Morphine Sulfate (morphine) 2 mg Q4H PRN IV .PAIN 7-10 Last administered on 03/19/19at 01:02; Admin Dose 2 MG; Start 03/16/19 at 17:30 Zolpidem Tartrate (Ambien) 5 mg QHS PRN PO .INSOMNIA Last administered on 03/18/19at 00:00; Admin Dose 5 MG; Start 03/16/19 at 17:30 Docusate Sodium (Colace) 100 mg Q12H PO Last administered on 03/25/19at 06:08; Admin Dose 100 MG; Start 03/16/19 at 17:30 Bisacodyl (Dulcolax) 5 mg DAILY PRN PO .CONSTIPATION; Start 03/16/19 at 17:30 Miscellaneous Information 1 ea NOTE XX ; Start 03/16/19 at 18:00 Glucose (Glutose) 15 gm Q15M PRN PO DECREASED GLUCOSE; Start 03/16/19 at 18:00 Glucose (Glutose) 22.5 gm Q15M PRN PO DECREASED GLUCOSE; Start 03/16/19 at 18:00 Dextrose (D50w Syringe) 25 ml Q15M PRN IV DECREASED GLUCOSE; Start 03/16/19 at 18:00 Dextrose (D50w Syringe) 50 ml Q15M PRN IV DECREASED GLUCOSE; Start 03/16/19 at 18:00 Glucagon (Glucagen) 1 mg Q15M PRN IM DECREASED GLUCOSE; Start 03/16/19 at 18:00 Glucose (Glutose) 15 gm Q15M PRN BUCCAL DECREASED GLUCOSE; Start 03/16/19 at 18:00 Pantoprazole (Protonix Tab) 40 mg DAILY@06 PO Last administered on 03/25/19 06:08; Admin Dose 40 MG; Start 03/17/19 at 06:00 Tacrolimus (Prograf) 2 mg AM PO Last administered on 03/25/19 08:38; Admin Dose 2 MG; Start 03/18/19 at 09:00 Mycophenolate Sodium (Myfortic) 180 mg Q12 PO Last administered on 03/25/19 08:39; Admin Dose 180 MG; Start 03/17/19 at 21:00 Diagnostic Test (Pha) (Accu-Chek) 1 ea 02 XX Last administered on 03/22/19at 01:23; Admin Dose 1 EA; Start 03/18/19 at 02:00 Guaifenesin/ Dextromethorphan (Robitussin Dm Liquid Cup) 10 ml Q4H PRN PO COUGH; Start 03/18/19 at 14:30 Hydralazine HCl (Apresoline) 10 mg Q4H PRN IV ELEVATED BLOOD PRESSURE Last administered on 03/24/19at 18:07; Admin Dose 10 MG; Start 03/18/19 at 15:30 Metoclopramide HCl (Reglan) 5 mg TID PO Last administered on 03/25/19 08:38; Admin Dose 5 MG; Start 03/18/19 at 17:00 Simethicone (Mylicon) 80 mg Q6H PRN PO DISTENSION/GAS/BLOATING Last administered on 03/19/19 01:00; Admin Dose 80 MG; Start 03/18/19 at 17:30 Insulin Aspart (Novolog Insulin Pen) NOVOLOG *MODERATE* ALGORITHM WITH MEALS BEDTIME SC Last administered on 03/24/19at 17:44; Admin Dose 6 UNIT; Start 03/18/19 at 21:00 Sodium Bicarbonate (Sodium Bicarbonate Tab) 650 mg BID PO Last administered on 03/25/19 08:39; Admin Dose 650 MG; Start 03/19/19 at 14:00 Ergocalciferol (Drisdol) 50,000 unit [place]@09 PO Last administered on 03/21/19at 0 9:54; Admin Dose 50,000 UNIT; Start 03/21/19 at 09:00 Acetaminophen/ Hydrocodone Bitart ([place] (5/325)) 2 tab Q4H PRN PO MODERATE to sever 5-10 Last administered on 03/25/19 06:08; Admin Dose 2 TAB; Start 03/20/19 at 22:30 Tacrolimus (Prograf) 2 mg HS PO Last administered on 03/24/19at 21:38; Admin Dose 2 MG; Start 03/22/19 at 21:00 Albuterol/ Ipratropium (Duoneb) 3 ml Q4H RESP THERAPY PRN HHN SHORTNESS OF BREATH; Start 03/23/19 at 04:00 Albuterol/ Ipratropium (Duoneb) 3 ml Q6HWA RESP THERAPY HHN Last administered on 03/25/19 08:13; Admin Dose 3 ML; Start 03/23/19 at 20:00 Insulin Glargine (Lantus) 10 units DAILY@2000 SC Last administered on 03/24/19 21:47; Admin Dose 10 UNITS; Start 03/24/19 at 20:00 Allergies: Coded Allergies: magnesium (Unverified Allergy, Intermediate, 03/16/19) NUMBNESS AND HOT FUSHES Past Surgical History Past Surgical Hx: other (S/p cadaveric kidney transplant in 2009) Social History Alcohol Use: none Smoking Status: Never smoker Drug Use: other (History of polysubstance and IV drug use in the past) Exam/Review of Systems Exam Vitals Vital Signs Date Temp Pulse Resp B/P (MAP) Pulse Ox O2 O2 Flow FiO2 Time Delivery Rate 03/25/19 75 08:26 03/25/19 16 96 Nasal 2.0 08:13 Cannula 03/25/19 98.3 128/53 07:42 (78) 03/24/19 28 21:46 Intake and Output 03/24/19 03/24/19 03/25/19 1515:00 23:00 07:00 IntakeIntake Total 800 ml OutputOutput Total 1500 ml BalanceBalance -700 ml Exam HEENT exam; supple neck, no JVD. No lymphadenopathy. Midline trachea. No thyr omegaly. Patient has fair dentition. No neck masses. Chest exam; bilateral mild wheezing. S1-S2 audible, no murmurs. Regular rhythm. Abdomen exam; soft, nontender. No organomegaly. Bowel sounds audible. Extremity exam; no peripheral edema clubbing. BROKE HANDLER exam; no focal deficit. Results Result Diagram: 03/24/1991703/24/19919 Results 24hrs Laboratory Tests Test 03/24/19 12:57 03/24/19 17:41 03/24/19 21:36 03/25/19 03:18 Bedside Glucose 241 H 240 H 163 80 Test 03/25/19 08:09 Bedside Glucose 112 Medications Medication Current Medications Prednisone (Prednisone) 5 mg DAILY PO Last administered on 03/25/19 08:39; Admin Dose 5 MG; Start 03/17/19 at 09:00 IV Flush (NS 3 ml) 3 ml PER PROTOCOL IV ; Start 03/16/19 at 17:30 Ondansetron HCl (Zofran Inj) 4 mg Q6H PRN IV NAUSEA/VOMITING Last administered on 03/17/19 20:16; Admin Dose 4 MG; Start 03/16/19 at 17:30 Aspirin (Aspirin) 81 mg DAILY PO Last administered on 03/25/19 08:39; Admin Dose 81 MG; Start 03/17/19 at 09:00 Nitroglycerin (Nitroglycerin (Sl Tab) 0.4 Mg) 1 tab Q5M PRN SL .CHEST PAIN; Start 03/16/19 at 17:30 Acetaminophen (Tylenol Tab) 650 mg Q6H PRN PO .PAIN 1-3 OR TEMP; Start 03/16/19 at 17:30 Morphine Sulfate (morphine) 2 mg Q4H PRN IV .PAIN 7-10 Last administered on 03/19/19at 01:02; Admin Dose 2 MG; Start 03/16/19 at 17:30 Zolpidem Tartrate (Ambien) 5 mg QHS PRN PO .INSOMNIA Last administered on 03/18/19 00:00; Admin Dose 5 MG; Start 03/16/19 at 17:30 Docusate Sodium (Colace) 100 mg Q12H PO Last administered on 03/25/19at 06:08; Admin Dose 100 MG; Start 03/16/19 at 17:30 Bisacodyl (Dulcolax) 5 mg DAILY PRN PO .CONSTIPATION; Start 03/16/19 at 17:30 Miscellaneous Information 1 ea NOTE XX ; Start 03/16/19 at 18:00 Glucose (Glutose) 15 gm Q15M PRN PO DECREASED GLUCOSE; Start 03/16/19 at 18:00 Glucose (Glutose) 22.5 gm Q15M PRN PO DECREASED GLUCOSE; Start 03/16/19 at 18:00 Dextrose (D50w Syringe) 25 ml Q15M PRN IV DECREASED GLUCOSE; Start 03/16/19 at 18:00 Dextrose (D50w Syringe) 50 ml Q15M PRN IV DECREASED GLUCOSE; Start 03/16/19 at 18:00 Glucagon (Glucagen) 1 mg Q15M PRN IM DECREASED GLUCOSE; Start 03/16/19 at 18:00 Glucose (Glutose) 15 gm Q15M PRN BUCCAL DECREASED GLUCOSE; Start 03/16/19 at 18:00 Pantoprazole (Protonix Tab) 40 mg DAILY@06 PO Last administered on 03/25/19at 06:08; Admin Dose 40 MG; Start 03/17/19 at 06:00 Tacrolimus (Prograf) 2 mg AM PO Last administered on 03/25/19at 08:38; Admin Dose 2 MG; Start 03/18/19 at 09:00 Mycophenolate Sodium (Myfortic) 180 mg Q12 PO Last administered on 03/25/19at 08:39; Admin Dose 180 MG; Start 03/17/19 at 21:00 Diagnostic Test (Pha) (Accu-Chek) 1 ea 02 XX Last administered on 03/22/19at 01:23; Admin Dose 1 EA; Start 03/18/19 at 02:00 Guaifenesin/ Dextromethorphan (Robitussin Dm Liquid Cup) 10 ml Q4H PRN PO COUGH; Start 03/18/19 at 14:30 Hydralazine HCl (Apresoline) 10 mg Q4H PRN IV ELEVATED BLOOD PRESSURE Last administered on 03/24/19at 18:07; Admin Dose 10 MG; Start 03/18/19 at 15:30 Metoclopramide HCl (Reglan) 5 mg TID PO Last administered on 03/25/19 08:38; Admin Dose 5 MG; Start 03/18/19 at 17:00 Simethicone (Mylicon) 80 mg Q6H PRN PO DISTENSION/GAS/BLOATING Last administered on 03/19/19 01:00; Admin Dose 80 MG; Start 03/18/19 at 17:30 Insulin Aspart (Novolog Insulin Pen) NOVOLOG *MODERATE* ALGORITHM WITH MEALS BEDTIME SC Last administered on 03/24/19 17:44; Admin Dose 6 UNIT; Start 03/18/19 at 21:00 Sodium Bicarbonate (Sodium Bicarbonate Tab) 650 mg BID PO Last administered on 03/25/19 08:39; Admin Dose 650 MG; Start 03/19/19 at 14:00 Ergocalciferol (Drisdol) 50,000 unit [place]@09 PO Last administered on 03/21/19 09:54; Admin Dose 50,000 UNIT; Start 03/21/19 at 09:00 Acetaminophen/ Hydrocodone Bitart ([place] (5/325)) 2 tab Q4H PRN PO MODERATE to sever 5-10 Last administered on 03/25/19 06:08; Admin Dose 2 TAB; Start 03/20/19 at 22:30 Tacrolimus (Prograf) 2 mg HS PO Last administered on 03/24/19 21:38; Admin Dose 2 MG; Start 03/22/19 at 21:00 Albuterol/ Ipratropium (Duoneb) 3 ml Q4H RESP THERAPY PRN HHN SHORTNESS OF BREATH; Start 03/23/19 at 04:00 Albuterol/ Ipratropium (Duoneb) 3 ml Q6HWA RESP THERAPY HHN Last administered on 03/25/19 08:13; Admin Dose 3 ML; Start 03/23/19 at 20:00 Insulin Glargine (Lantus) 10 units DAILY@2000 SC Last administered on 03/24/19 21:47; Admin Dose 10 UNITS; Start 03/24/19 at 20:00 CATINA HAQ March 25, 2019 10:01
--- NOTE | 2019-03-25 11:49 | CONS ---
Assessment/Plan Assessment/Plan Hospital Course (Demo Recall) 1. Hyperkalemia, could be secondary to worsening renal failure, resolved. enal US showed hydronephrosis of transplant kidney, acute 2. Abdominal pain with chills. NO fever 4. Acute on chronic renal failure. The patient had chronic kidney disease IV in the past with a creatinine of 3.2 to 3.4. It could be exacerbated by acute hemodynamic changes with sepsis. vs hydronephrosis vs ATN vs progression of disease, pt has underlying DM nephropathy 5. Elevated lipase.? Pancreatitis 6. Urinary tract infection. 7. Pneumonia. 8. Anemia. 9. History of hepatitis C. 10. History of donor renal transplantation. 11. metabolic acidosis likely secondary to renal failure 12. Non compliance He had refused p.o. Kayexalate and [place] 13, Pneumonia 14. vit d deficiency Assessment/Plan (Daily) - fluid restriction - consider CT chest - cw Prograf 2 mg/2 now, mycophenolate and cw prednisone. - c/w ergocalciferol 50 000 u weekly -c/w Bicarb tabs - urology consult appreciated continue with frequent bladder emptying - renally dose all meds -phos level normal Consultation Date/Type/Reason Admit Date/Time March 17, 2019 at 13:23 Initial Consult Date 03/17/19 Type of Consult nephrology Requesting Provider: LUPE KAPLAN MD Date/Time of Note DATE: 03/25/19 TIME: 11:48 24 HR Interval Summary Constitutional: requiring O2 Exam/Review of Systems Exam Vitals Vital Signs Date Temp Pulse Resp B/P (MAP) Pulse Ox O2 O2 Flow FiO2 Time Delivery Rate 03/25/19 97.8 88 16 157/68 98 Nasal 11:10 (97) Cannula 03/25/19 2.0 08:13 03/24/19 28 21:46 Intake and Output 03/24/19 03/24/19 03/25/19 1414:59 22:59 06:59 IntakeIntake Total 800 ml OutputOutput Total 1500 ml BalanceBalance -700 ml Constitutional: alert, oriented Neck: supple Respiratory: diminished breath sounds Cardiovascular: regular rate and rhythm Gastrointestinal: soft, surgical scars Results Result Diagram: 03/24/19 0918 03/24/19 0920 Results 24hrs Laboratory Tests Test 03/24/19 12:57 03/24/19 17:41 03/24/19 21:36 03/25/19 03:18 Bedside Glucose 241 H 240 H 163 80 Test 03/25/19 08:09 Bedside Glucose 112 Medications Medication Current Medications IV Flush (NS 3 ml) 3 ml PER PROTOCOL IV ; Start 03/16/19 at 17:30 Ondansetron HCl (Zofran Inj) 4 mg Q6H PRN IV NAUSEA/VOMITING Last administered on 03/17/19at 20:16; Admin Dose 4 MG; Start 03/16/19 at 17:30 Aspirin (Aspirin) 81 mg DAILY PO Last administered on 03/25/19at 08:39; Admin Dose 81 MG; Start 03/17/19 at 09:00 Nitroglycerin (Nitroglycerin (Sl Tab) 0.4 Mg) 1 tab Q5M PRN SL .CHEST PAIN; Start 03/16/19 at 17:30 Acetaminophen (Tylenol Tab) 650 mg Q6H PRN PO .PAIN 1-3 OR TEMP; Start 03/16/19 at 17:30 Morphine Sulfate (morphine) 2 mg Q4H PRN IV .PAIN 7-10 Last administered on 03/19/19at 01:02; Admin Dose 2 MG; Start 03/16/19 at 17:30 Zolpidem Tartrate (Ambien) 5 mg QHS PRN PO .INSOMNIA Last administered on 03/18/19at 00:00; Admin Dose 5 MG; Start 03/16/19 at 17:30 Docusate Sodium (Colace) 100 mg Q12H PO Last administered on 03/25/19at 06:08; Admin Dose 100 MG; Start 03/16/19 at 17:30 Bisacodyl (Dulcolax) 5 mg DAILY PRN PO .CONSTIPATION; Start 03/16/19 at 17:30 Miscellaneous Information 1 ea NOTE XX ; Start 03/16/19 at 18:00 Glucose (Glutose) 15 gm Q15M PRN PO DECREASED GLUCOSE; Start 03/16/19 at 18:00 Glucose (Glutose) 22.5 gm Q15M PRN PO DECREASED GLUCOSE; Start 03/16/19 at 18:00 Dextrose (D50w Syringe) 25 ml Q15M PRN IV DECREASED GLUCOSE; Start 03/16/19 at 18:00 Dextrose (D50w Syringe) 50 ml Q15M PRN IV DECREASED GLUCOSE; Start 03/16/19 at 18:00 Glucagon (Glucagen) 1 mg Q15M PRN IM DECREASED GLUCOSE; Start 03/16/19 at 18:00 Glucose (Glutose) 15 gm Q15M PRN BUCCAL DECREASED GLUCOSE; Start 03/16/19 at 18:00 Pantoprazole (Protonix Tab) 40 mg DAILY@06 PO Last administered on 03/25/19 06:08; Admin Dose 40 MG; Start 03/17/19 at 06:00 Tacrolimus (Prograf) 2 mg AM PO Last administered on 03/25/19 08:38; Admin Dose 2 MG; Start 03/18/19 at 09:00 Mycophenolate Sodium (Myfortic) 180 mg Q12 PO Last administered on 03/25/19 08:39; Admin Dose 180 MG; Start 03/17/19 at 21:00 Diagnostic Test (Pha) (Accu-Chek) 1 ea 02 XX Last administered on 03/22/19 01:23; Admin Dose 1 EA; Start 03/18/19 at 02:00 Guaifenesin/ Dextromethorphan (Robitussin Dm Liquid Cup) 10 ml Q4H PRN PO COUGH; Start 03/18/19 at 14:30 Hydralazine HCl (Apresoline) 10 mg Q4H PRN IV ELEVATED BLOOD PRESSURE Last administered on 03/24/19 18:07; Admin Dose 10 MG; Start 03/18/19 at 15:30 Metoclopramide HCl (Reglan) 5 mg TID PO Last administered on 03/25/19 08:38; Admin Dose 5 MG; Start 03/18/19 at 17:00 Simethicone (Mylicon) 80 mg Q6H PRN PO DISTENSION/GAS/BLOATING Last administered on 03/19/19 01:00; Admin Dose 80 MG; Start 03/18/19 at 17:30 Insulin Aspart (Novolog Insulin Pen) NOVOLOG *MODERATE* ALGORITHM WITH MEALS BEDTIME SC Last administered on 03/24/19 17:44; Admin Dose 6 UNIT; Start 03/18/19 at 21:00 Sodium Bicarbonate (Sodium Bicarbonate Tab) 650 mg BID PO Last administered on 03/25/19 08:39; Admin Dose 650 MG; Start 03/19/19 at 14:00 Ergocalciferol (Drisdol) 50,000 unit [place]@09 PO Last administered on 03/21/19at 09:54; Admin Dose 50,000 UNIT; Start 03/21/19 at 09:00 Acetaminophen/ Hydrocodone Bitart ([place] (5/325)) 2 tab Q4H PRN PO MODERATE to sever 5-10 Last administered on 03/25/19 11:28; Admin Dose 2 TAB; Start 03/20/19 at 22:30 Tacrolimus (Prograf) 2 mg HS PO Last administered on 03/24/19at 21:38; Admin Dose 2 MG; Start 03/22/19 at 21:00 Albuterol/ Ipratropium (Duoneb) 3 ml Q4H RESP THERAPY PRN HHN SHORTNESS OF BREATH; Start 03/23/19 at 04:00 Albuterol/ Ipratropium (Duoneb) 3 ml Q6HWA RESP THERAPY HHN Last administered on 03/25/19at 08:13; Admin Dose 3 ML; Start 03/23/19 at 20:00 Insulin Glargine (Lantus) 10 units DAILY@2000 SC Last administered on 03/24/19at 21:47; Admin Dose 10 UNITS; Start 03/24/19 at 20:00 Methylprednisolone Sodium Succinate (Solu-Medrol) 40 mg Q8 IV ; Start 03/25/19 at 14:00 Levofloxacin (Levaquin) 250 mg Q48H PO ; Start 03/25/19 at 10:00 GENNARO GAO March 25, 2019 11:49
--- NOTE | 2019-03-25 12:06 | PN ---
Date/Time of Note Date/Time of Note DATE: 03/25/19 TIME: 11:56 Assessment/Plan VTE Prophylaxis Risk score (from Ns)>0 risk: 2 SCD applied (from Ns): Yes Pharmacological prophylaxis: NA/contraindicated Pharm contraindication: anticoag not tolerated Lines/Catheters IV [facility] Type [facility] Mid Line Urinary Cath still in place: No Assessment/Plan Hospital Course Patient is status post 1 unit of packed red blood cells transfusion, follow-up on H&H, CT of the chest noted. Patient is still complains of intermittent shortness of breath, got tachycardic over night, now stable heart rate. Assessment/Plan -Left lower lobe is in keeping with bronchopneumonia and multifocal bronchiolitis greatest in the left. Dr. Bush is following in pulmonology consultation. Started on Levaquin and prednisone. -Possible sepsis secondary to possible pneumonia and UTI, s/p Rocephin. Dr. Olmstead is following in infection disease consultation. -Acute renal failure on chronic kidney disease stage IV, status post cadaveric kidney transplant [place] [address]. Dr[address] Allen is following in nephrology consultation. -Hyperkalemia, status post Kayexalate -Moderate hydronephrosis, Dr. Noguera is following in urology consultation. -Possible pancreatitis, monitor lipase -Diabetes mellitus type 2 with diabetic neuropathy. HbgA1C is 6.2. Continue Tradjenta, Lantus and NovoLog. -Hypertension. -Anemia -Chronic HCV infection -Rheumatoid arthritis -History of polysubstance and IV drug use Further recommendations based on clinical course. Plan of care discussed with Dr. Maier. Result Diagram: 03/24/19 0918 03/24/19 0920 Results 24hrs Laboratory Tests Test 03/24/19 12:57 03/24/19 17:41 03/24/19 21:36 03/25/19 03:18 Bedside Glucose 241 H 240 H 163 80 Test 03/25/19 08:09 Bedside Glucose 112 Exam/Review of Systems Exam Vitals Vital Signs Date Temp Pulse Resp B/P (MAP) Pulse Ox O2 O2 Flow FiO2 Time Delivery Rate 03/25/19 97.8 88 16 157/68 98 Nasal 11:10 (97) Cannula 03/25/19 2.0 08:13 03/24/19 28 21:46 Intake and Output 03/24/19 03/24/19 03/25/19 1515:00 23:00 07:00 IntakeIntake Total 800 ml OutputOutput Total 1500 ml BalanceBalance -700 ml Exam Constitutional: alert, oriented Respiratory: clear to auscultation Cardiovascular: regular rate and rhythm Gastrointestinal: soft, tender Musculoskeletal: nl extremities to inspection Extremities: normal pulses 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: nl mental status Results Results 24hrs Laboratory Tests Test 03/24/19 12:57 03/24/19 17:41 03/24/19 21:36 03/25/19 03:18 Bedside Glucose 241 H 240 H 163 80 Test 03/25/19 08:09 Bedside Glucose 112 Medications Medication Current Medications IV Flush (NS 3 ml) 3 ml PER PROTOCOL IV ; Start 03/16/19 at 17:30 Ondansetron HCl (Zofran Inj) 4 mg Q6H PRN IV NAUSEA/VOMITING Last administered on 03/17/19at 20:16; Admin Dose 4 MG; Start 03/16/19 at 17:30 Aspirin (Aspirin) 81 mg DAILY PO Last administered on 03/25/19at 08:39; Admin Dose 81 MG; Start 03/17/19 at 09:00 Nitroglycerin (Nitroglycerin (Sl Tab) 0.4 Mg) 1 tab Q5M PRN SL .CHEST PAIN; Start 03/16/19 at 17:30 Acetaminophen (Tylenol Tab) 650 mg Q6H PRN PO .PAIN 1-3 OR TEMP; Start 03/16/19 at 17:30 Morphine Sulfate (morphine) 2 mg Q4H PRN IV .PAIN 7-10 Last administered on 03/19/19at 01:02; Admin Dose 2 MG; Start 03/16/19 at 17:30 Zolpidem Tartrate (Ambien) 5 mg QHS PRN PO .INSOMNIA Last administered on 03/18/19at 00:00; Admin Dose 5 MG; Start 03/16/19 at 17:30 Docusate Sodium (Colace) 100 mg Q12H PO Last administered on 03/25/19at 06:08; Admin Dose 100 MG; Start 03/16/19 at 17:30 Bisacodyl (Dulcolax) 5 mg DAILY PRN PO .CONSTIPATION; Start 03/16/19 at 17:30 Miscellaneous Information 1 ea NOTE XX ; Start 03/16/19 at 18:00 Glucose (Glutose) 15 gm Q15M PRN PO DECREASED GLUCOSE; Start 03/16/19 at 18:00 Glucose (Glutose) 22.5 gm Q15M PRN PO DECREASED GLUCOSE; Start 03/16/19 at 18:00 Dextrose (D50w Syringe) 25 ml Q15M PRN IV DECREASED GLUCOSE; Start 03/16/19 at 18:00 Dextrose (D50w Syringe) 50 ml Q15M PRN IV DECREASED GLUCOSE; Start 03/16/19 at 18:00 Glucagon (Glucagen) 1 mg Q15M PRN IM DECREASED GLUCOSE; Start 03/16/19 at 18:00 Glucose (Glutose) 15 gm Q15M PRN BUCCAL DECREASED GLUCOSE; Start 03/16/19 at 18:00 Pantoprazole (Protonix Tab) 40 mg DAILY@06 PO Last administered on 03/25/19at 06:08; Admin Dose 40 MG; Start 03/17/19 at 06:00 Tacrolimus (Prograf) 2 mg AM PO Last administered on 03/25/19 08:38; Admin Dose 2 MG; Start 03/18/19 at 09:00 Mycophenolate Sodium (Myfortic) 180 mg Q12 PO Last administered on 03/25/19 08:39; Admin Dose 180 MG; Start 03/17/19 at 21:00 Diagnostic Test (Pha) (Accu-Chek) 1 ea 02 XX Last administered on 03/22/19at 01:23; Admin Dose 1 EA; Start 03/18/19 at 02:00 Guaifenesin/ Dextromethorphan (Robitussin Dm Liquid Cup) 10 ml Q4H PRN PO COUGH; Start 03/18/19 at 14:30 Hydralazine HCl (Apresoline) 10 mg Q4H PRN IV ELEVATED BLOOD PRESSURE Last administered on 03/24/19 18:07; Admin Dose 10 MG; Start 03/18/19 at 15:30 Metoclopramide HCl (Reglan) 5 mg TID PO Last administered on 03/25/19 08:38; Admin Dose 5 MG; Start 03/18/19 at 17:00 Simethicone (Mylicon) 80 mg Q6H PRN PO DISTENSION/GAS/BLOATING Last administered on 03/19/19at 01:00; Admin Dose 80 MG; Start 03/18/19 at 17:30 Insulin Aspart (Novolog Insulin Pen) NOVOLOG *MODERATE* ALGORITHM WITH MEALS BEDTIME SC Last administered on 03/24/19 17:44; Admin Dose 6 UNIT; Start 03/18/19 at 21:00 Sodium Bicarbonate (Sodium Bicarbonate Tab) 650 mg BID PO Last administered on 03/25/19 08:39; Admin Dose 650 MG; Start 03/19/19 at 14:00 Ergocalciferol (Drisdol) 50,000 unit [place]@09 PO Last administered on 03/21/19 09:54; Admin Dose 50,000 UNIT; Start 03/21/19 at 09:00 Acetaminophen/ Hydrocodone Bitart ([place] (5/325)) 2 tab Q4H PRN PO MODERATE to sever 5-10 Last administered on 03/25/19 11:28; Admin Dose 2 TAB; Start 03/03 06/21 at 22:30 Tacrolimus (Prograf) 2 mg HS PO Last administered on 03/24/19 21:38; Admin Dose 2 MG; Start 03/22/19 at 21:00 Albuterol/ Ipratropium (Duoneb) 3 ml Q4H RESP THERAPY PRN HHN SHORTNESS OF BREATH; Start 03/23/19 at 04:00 Albuterol/ Ipratropium (Duoneb) 3 ml Q6HWA RESP THERAPY HHN Last administered on 03/25/19 08:13; Admin Dose 3 ML; Start 03/23/19 at 20:00 Insulin Glargine (Lantus) 10 units DAILY@2000 SC Last administered on 03/24/19 21:47; Admin Dose 10 UNITS; Start 03/24/19 at 20:00 Methylprednisolone Sodium Succinate (Solu-Medrol) 40 mg Q8 IV ; Start 03/25/19 at 14:00 Levofloxacin (Levaquin) 250 mg Q48H PO ; Start 03/25/19 at 10:00 LETI RODRIGUEZ March 25, 2019 12:06
[2019-03-25] MEDS: LEVOFLOXACIN 250 MG TAB PO SCH (12:31)
[2019-03-25] MEDS: METHYLPREDNISOLONE 40 MG INJ IV SCH ×2 (15:33→22:17)
--- NOTE | 2019-03-25 16:46 | CONS ---
Assessment/Plan Assessment/Plan Hospital Course (Demo Recall) 1. ARF 2. SOB w/u in progress - 03/24/19 CT Chest Nodular consolidation in the left lower lobe is in keeping with bronchopneumonia and there is also multifocal bronchiolitis greatest in the left greater than right lower lobes that is likely also infectious. 3. Possible uti but seems less likely PMH as of last admit: - Anasarca, improved with IV Lasix - Endocarditis - Dr. Olmstead rec'd call from [facility] 01/15/19 regarding this and plan was to complete cefazolin through 01.29.19 - Completing Augmentin for progressive swelling of distal aspect of right ring finger with x-ray showing further of erosion and lucency involving the distal aspect of the distal phalanx of the right ring finger suspicious for osteomyelitis with improved but slight associated soft tissue swelling. ESR 67. - Hx OM of R 4th digit: swelling with new erosive changes and osteopenia of the underlying R 4th distal phalanx, suggestive of osteomyelitis; wound culture grew Serratia on 03/18/18 and Serratia + CoNS (likely colonizer) on 04/04/18 ; Pt declined amputation. ESR 39 on 03/18/2018. S/p Levaquin x 6 weeks, ESR 60 01/13/19 - Hematoma within the right lateral abdominal wall musculature which has developed since the previous study done 12/13/2018 measuring 7.3 x 4.6 cm in cross diameter and extending an acrylic that dimension approximately 10.7 cm from the level of the superior pole of the [place] right kidney to just inferior to the right iliac crest per CT 01/12/19 - Calcification of the vas deferens with a persistent hydrocele within the scrotum per CT 01/12/19 - Bacteremia d/t MSSA 12/09/2018, repeat blood cx 12/12/18 NGTD - MRSA and K. pneumoniae in urine cx 12/09/2018 - UA was neg for pyuria - Hx mild subtle increased activity within the upper aspect of LUE, nonspecific, on WBC tagged scan on 04/05/2018 - Hx OM of R 3rd fingertip (XR showed periosteal reaction at the tip of R 3rd distal phalanx, suspicious for OM, MRI showed cellulitis of distal R 4th phalanx, without OM) and L 2nd fingertip (XR showed cortical irregularity at the tuft of L 2nd distal phalanx with overlying soft tissue defect, suggesting early OM, MRI showed OM at L 2nd distal phalanx with, cellulitis about L 2nd distal phalanx without drainable fluid collection.) - Hx OM of R 2nd finger s/p amputation at proximal phalanx neck, and h/o OM of L 3rd finger s/p amputation at middle and distal phalanges - Acute on chronic renal failure - Hyperkalemia with metabolic acidosis - slowly improving with sodium bicarb - Hx ESRD, was on HD - S/p renal transplant in 2009 (on tacrolimus, mycophenolate and prednisone), chronic renal insufficiency at baseline - DM - Hgb A1c 10.5% - Hx Juan's esophagus and gastritis s/p EGD on 08/12/2017. No H. pylori on Bx - BLE atherosclerosis - Seen by Vascular Surgery during last admit - Onychomycosis, tinea pedis - Seen by Mailmaster during last admit - Rheumatoid arthritis - Chronic HCV infection - HTN - Dyslipidemia - Hx polysubstance and IV drug use. 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 psychosis - on Lexapro - Abdominal distention and pain Recommendation: Sputum culture - ordered Procalcitonin in AM - ordered Continue Levaquin orally (03/25/19 - ) S/p Ceftriaxone F/u with all cxs Above plan d/w via [facility] Consultation Date/Type/Reason Admit Date/Time March 17, 2019 at 13:23 Initial Consult Date 03/17/19 Requesting Provider: LUPE KAPLAN MD Date/Time of Note DATE: 03/25/19 TIME: 16:38 24 HR Interval Summary Free Text/Dictation Chest CT impression noted. Pt has remained afebrile, denies cough, phlegm production. Detailed Summary Eyes: no complaints ENT: no complaints Respiratory: shortness of breath (occasionally ); No pain, No cough, No pleuritic pain, No sputum Cardiovascular: no complaints Gastrointestinal: no complaints Genitourinary: no complaints Musculoskeletal: no complaints Skin: no complaints Neurologic: no complaints Endocrine: no complaints Lymphatic: no complaints Psychological: no complaints Additional Comments Denier fevers, chills. Exam/Review of Systems Exam Vitals Vital Signs Date Temp Pulse Resp B/P (MAP) Pulse Ox O2 O2 Flow FiO2 Time Delivery Rate 03/25/19 2.0 16:37 03/25/19 98.3 98 16 132/72 100 Room Air 15:04 (92) 03/24/19 28 21:46 Intake and Output 03/24/19 03/24/19 03/25/19 1515:00 23:00 07:00 IntakeIntake Total 800 ml OutputOutput Total 1500 ml BalanceBalance -700 ml Exam Constitutional: alert Psych: nl mood/affect, no complaints Head: normocephalic, atraumatic Eyes: EOMI, PERRL Neck: supple Respiratory: clear to auscultation, normal air movement; on room air No congested cough, No crackles/rales, No wheezing Cardiovascular: regular rate and rhythm Gastrointestinal: soft, non-tender; No rebound or guarding Musculoskeletal: nl extremities to inspection 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: nl mental status, nl speech Skin: ecchymosis (chest and left sided abdomen and back), other (LUE and finger wounds healed) Results Result Diagram: 03/25/19 1240 03/24/19 0920 Results 24hrs Laboratory Tests Test 03/24/19 17:41 03/24/19 21:36 03/25/19 03:18 03/25/19 08:09 Bedside Glucose 240 H 163 80 112 Test 03/25/19 12:31 03/25/19 12:40 Bedside Glucose 227 H White Blood Count 4.7 L Red Blood Count 2.68 #L Hemoglobin 8.7 #L Hematocrit 26.4 #L Mean Corpuscular 98.5 Volume Mean Corpuscular 32.5 Hemoglobin Mean Corpuscular 33.0 Hemoglobin Concent Red Cell 14.7 H Distribution Width Platelet Count 202 Mean Platelet Volume 9.5 Immature 0.200 Granulocytes % Neutrophils % 89.3 H Lymphocytes % 6.1 L Monocytes % 3.2 Eosinophils % 0.8 Basophils % 0.4 Nucleated Red Blood 0.0 Cells % Immature 0.010 Granulocytes # Neutrophils # 4.2 Lymphocytes # 0.3 L Monocytes # 0.2 L Eosinophils # 0.0 Basophils # 0.0 Nucleated Red Blood 0.0 Cells # Imaging Imaging PROCEDURE: CT CHEST WITHOUT CONTRAST IMPRESSION: 1. Nodular consolidation in the left lower lobe is in keeping with bronchopneumonia and there is also multifocal bronchiolitis greatest in the left greater than right lower lobes that is likely also infectious. Small left pleural effusion. 2. Severe calcification of the small arteries may be seen with diabetes and end- stage renal disease. [place] kidneys are small and calcified in keeping with end- stage renal disease. There is small volume ascites in the upper abdomen. 3. Severe multivessel coronary artery calcification and moderate aortic valve calcification. 4. Osteopenia. Periosteal reaction over the sternum may be due to secondary hyperparathyroidism from renal osteodystrophy. 5. Please note that in the absence of intravenous contrast, the study does not evaluate the patency of the vasculature. RPTAT: HCTS Antonino Donald, Physician Date Time Electronically viewed and signed by Antonino Donald, Physician on 03/24/2019 21:03 Medications Medication Current Medications IV Flush (NS 3 ml) 3 ml PER PROTOCOL IV ; Start 03/16/19 at 17:30 Ondansetron HCl (Zofran Inj) 4 mg Q6H PRN IV NAUSEA/VOMITING Last administered on 03/17/19at 20:16; Admin Dose 4 MG; Start 03/16/19 at 17:30 Aspirin (Aspirin) 81 mg DAILY PO Last administered on 03/25/19at 08:39; Admin Dose 81 MG; Start 03/17/19 at 09:00 Nitroglycerin (Nitroglycerin (Sl Tab) 0.4 Mg) 1 tab Q5M PRN SL .CHEST PAIN; Start 03/16/19 at 17:30 Acetaminophen (Tylenol Tab) 650 mg Q6H PRN PO .PAIN 1-3 OR TEMP; Start 03/16/19 at 17:30 Morphine Sulfate (morphine) 2 mg Q4H PRN IV .PAIN 7-10 Last administered on 03/19/19at 01:02; Admin Dose 2 MG; Start 03/16/19 at 17:30 Zolpidem Tartrate (Ambien) 5 mg QHS PRN PO .INSOMNIA Last administered on 03/18/19at 00:00; Admin Dose 5 MG; Start 03/16/19 at 17:30 Docusate Sodium (Colace) 100 mg Q12H PO Last administered on 03/25/19at 06:08; Admin Dose 100 MG; Start 03/16/19 at 17:30 Bisacodyl (Dulcolax) 5 mg DAILY PRN PO .CONSTIPATION; Start 03/16/19 at 17:30 Miscellaneous Information 1 ea NOTE XX ; Start 03/16/19 at 18:00 Glucose (Glutose) 15 gm Q15M PRN PO DECREASED GLUCOSE; Start 03/16/19 at 18:00 Glucose (Glutose) 22.5 gm Q15M PRN PO DECREASED GLUCOSE; Start 03/16/19 at 18:00 Dextrose (D50w Syringe) 25 ml Q15M PRN IV DECREASED GLUCOSE; Start 03/16/19 at 18:00 Dextrose (D50w Syringe) 50 ml Q15M PRN IV DECREASED GLUCOSE; Start 03/16/19 at 18:00 Glucagon (Glucagen) 1 mg Q15M PRN IM DECREASED GLUCOSE; Start 03/16/19 at 18:00 Glucose (Glutose) 15 gm Q15M PRN BUCCAL DECREASED GLUCOSE; Start 03/16/19 at 18:00 Pantoprazole (Protonix Tab) 40 mg DAILY@06 PO Last administered on 03/25/19at 06:08; Admin Dose 40 MG; Start 03/17/19 at 06:00 Tacrolimus (Prograf) 2 mg AM PO Last administered on 03/25/19at 08:38; Admin Dos e 2 MG; Start 03/18/19 at 09:00 Mycophenolate Sodium (Myfortic) 180 mg Q12 PO Last administered on 03/25/19at 08:39; Admin Dose 180 MG; Start 03/17/19 at 21:00 Diagnostic Test (Pha) (Accu-Chek) 1 ea 02 XX Last administered on 03/22/19at 01:23; Admin Dose 1 EA; Start 03/18/19 at 02:00 Guaifenesin/ Dextromethorphan (Robitussin Dm Liquid Cup) 10 ml Q4H PRN PO COUGH; Start 03/18/19 at 14:30 Hydralazine HCl (Apresoline) 10 mg Q4H PRN IV ELEVATED BLOOD PRESSURE Last administered on 03/24/19at 18:07; Admin Dose 10 MG; Start 03/18/19 at 15:30 Metoclopramide HCl (Reglan) 5 mg TID PO Last administered on 03/25/19 12:31; Admin Dose 5 MG; Start 03/18/19 at 17:00 Simethicone (Mylicon) 80 mg Q6H PRN PO DISTENSION/GAS/BLOATING Last administered on 03/19/19 01:00; Admin Dose 80 MG; Start 03/18/19 at 17:30 Insulin Aspart (Novolog Insulin Pen) NOVOLOG *MODERATE* ALGORITHM WITH MEALS BEDTIME SC Last administered on 03/25/19 12:32; Admin Dose 6 UNIT; Start 03/18/19 at 21:00 Sodium Bicarbonate (Sodium Bicarbonate Tab) 650 mg BID PO Last administered on 03/25/19 08:39; Admin Dose 650 MG; Start 03/19/19 at 14:00 Ergocalciferol (Drisdol) 50,000 unit [place]@09 PO Last administered on 03/21/19 09:54; Admin Dose 50,000 UNIT; Start 03/21/19 at 09:00 Acetaminophen/ Hydrocodone Bitart ([place] (5/325)) 2 tab Q4H PRN PO MODERATE to sever 5-10 Last administered on 03/25/19 15:30; Admin Dose 2 TAB; Start 03/20/19 at 22:30 Tacrolimus (Prograf) 2 mg HS PO Last administered on 03/24/19 21:38; Admin Do se 2 MG; Start 03/22/19 at 21:00 Albuterol/ Ipratropium (Duoneb) 3 ml Q4H RESP THERAPY PRN HHN SHORTNESS OF BREATH; Start 03/23/19 at 04:00 Albuterol/ Ipratropium (Duoneb) 3 ml Q6HWA RESP THERAPY HHN Last administered on 03/25/19 14:55; Admin Dose 3 ML; Start 03/23/19 at 20:00 Insulin Glargine (Lantus) 10 units DAILY@2000 SC Last administered on 03/24/19 21:47; Admin Dose 10 UNITS; Start 03/24/19 at 20:00 Methylprednisolone Sodium Succinate (Solu-Medrol) 40 mg Q8 IV Last administered on 03/25/19 15:33; Admin Dose 40 MG; Start 03/25/19 at 14:00 Levofloxacin (Levaquin) 250 mg Q48H PO Last administered on 03/25/19at 12:31; Admin Dose 250 MG; Start 03/25/19 at 10:00 ESTEFANI SAUCEDA NP March 25, 2019 16:46
[2019-03-25] MEDS: INSULIN GLARGINE [LANTus] (100 UNITS/ML) SYG SC SCH (20:43)
[2019-03-26] VITALS (13 sets, daily range): BP systolic 100–194; BP diastolic 55–84; PULSE 71–141; RESP 16–20
[2019-03-26] MEDS: morphine 2 MG INJ IV PRN ×2 (01:18→13:25)
[2019-03-26] MEDS: ACCU-CHEK XX SCH (02:00)
[2019-03-26] MEDS: hydrALAzine 20 MG INJ IV PRN (03:56)
[2019-03-26] MEDS: HYDROCODONE/APAP (5/325) TAB PO PRN ×4 (04:34→19:42)
[2019-03-26] MEDS: DOCUSATE SODIUM 100 MG CAP PO SCH ×2 (05:30→17:26)
[2019-03-26] MEDS: PANTOPRAZOLE (EC) 40 MG TAB PO SCH (05:52)
[2019-03-26] MEDS: METHYLPREDNISOLONE 40 MG INJ IV SCH ×3 (05:52→22:04)
[2019-03-26] MEDS: ONDANSETRON 4 MG INJ IV PRN (05:58)
[2019-03-26] MEDS: ALBUTEROL/IPRATROPIUM (NEB) 3 ML AMP HHN SCH ×3 (08:00→19:25)
[2019-03-26] MEDS: INSULIN ASPART [NOVOLOG] 3 ML PEN SC SCH ×4 (08:30→20:33)
[2019-03-26] MEDS: NA BICARBONATE 650 MG TAB PO SCH ×2 (09:00→20:20)
[2019-03-26] MEDS: METOCLOPRAMIDE 5 MG TAB PO SCH ×3 (09:00→20:20)
[2019-03-26] MEDS ORDERED: SODIUM POLYSTYRENE 15 GM KIT (POWDER + SORBITOL) PR ONE (09:00)
[2019-03-26] MEDS: TACROLIMUS 1 MG CAP PO SCH ×2 (11:37→20:20)
[2019-03-26] MEDS: MYCOPHENOLATE (SR) 180 MG TAB PO SCH ×2 (11:37→20:20)
[2019-03-26] MEDS: ASPIRIN 81 MG TAB PO SCH (11:37)
[2019-03-26] MEDS: BALSAM PERU/CASTOR OIL 60 GM TUBE TOP SCH (11:38)
[2019-03-26] MEDS ORDERED: SPECIAL NON-STANDARD MEDICATION PO ONE (12:30)
[2019-03-26] MEDS ORDERED: PATIROMER CALCIUM SORBITEX 8.4 GM PKT PO ONE (13:00)
[2019-03-26] MEDS ORDERED: PATIROMER CALCIUM SORBITEX 16.8 GM PKT PO ONE (13:00)
--- NOTE | 2019-03-26 13:32 | CONS ---
Assessment/Plan Assessment/Plan Hospital Course (Demo Recall) 1. ARF 2. SOB w/u in progress - 03/24/19 CT Chest Nodular consolidation in the left lower lobe is in keeping with bronchopneumonia and there is also multifocal bronchiolitis greatest in the left greater than right lower lobes that is likely also infectious. 3. Possible uti but seems less likely PMH as of last admit: - Anasarca, improved with IV Lasix - Endocarditis - Dr. Olmstead rec'd call from [facility] 01/15/19 regarding this and plan was to complete cefazolin through 01.29.19 - Completing Augmentin for progressive swelling of distal aspect of right ring finger with x-ray showing further of erosion and lucency involving the distal aspect of the distal phalanx of the right ring finger suspicious for osteomyelitis with improved but slight associated soft tissue swelling. ESR 67. - Hx OM of R 4th digit: swelling with new erosive changes and osteopenia of the underlying R 4th distal phalanx, suggestive of osteomyelitis; wound culture grew Serratia on 03/18/18 and Serratia + CoNS (likely colonizer) on 04/04/18 ; Pt declined amputation. ESR 39 on 03/18/2018. S/p Levaquin x 6 weeks, ESR 60 01/13/19 - Hematoma within the right lateral abdominal wall musculature which has developed since the previous study done 12/13/2018 measuring 7.3 x 4.6 cm in cross diameter and extending an acrylic that dimension approximately 10.7 cm from the level of the superior pole of the [place] right kidney to just inferior to the right iliac crest per CT 01/12/19 - Calcification of the vas deferens with a persistent hydrocele within the scrotum per CT 01/12/19 - Bacteremia d/t MSSA 12/09/2018, repeat blood cx 12/12/18 NGTD - MRSA and K. pneumoniae in urine cx 12/09/2018 - UA was neg for pyuria - Hx mild subtle increased activity within the upper aspect of LUE, nonspecific, on WBC tagged scan on 04/05/2018 - Hx OM of R 3rd fingertip (XR showed periosteal reaction at the tip of R 3rd distal phalanx, suspicious for OM, MRI showed cellulitis of distal R 4th phalanx, without OM) and L 2nd fingertip (XR showed cortical irregularity at the tuft of L 2nd distal phalanx with overlying soft tissue defect, suggesting early OM, MRI showed OM at L 2nd distal phalanx with, cellulitis about L 2nd distal phalanx without drainable fluid collection.) - Hx OM of R 2nd finger s/p amputation at proximal phalanx neck, and h/o OM of L 3rd finger s/p amputation at middle and distal phalanges - Acute on chronic renal failure - Hyperkalemia with metabolic acidosis - slowly improving with sodium bicarb - Hx ESRD, was on HD - S/p renal transplant in 2009 (on tacrolimus, mycophenolate and prednisone), chronic renal insufficiency at baseline - DM - Hgb A1c 10.5% - Hx Juan's esophagus and gastritis s/p EGD on 08/12/2017. No H. 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 psychosis - on Lexapro - Abdominal distention and pain Recommendation: - Continue Levaquin orally (03/25/19 - ) - F/u respiratory culture (shows as in process) Plan was d/w patient and with Dr. Olmstead via [employer] messaging Consultation Date/Type/Reason Admit Date/Time March 17, 2019 at 13:23 Initial Consult Date 03/17/19 Type of Consult ID Requesting Provider: LUPE KAPLAN MD Date/Time of Note DATE: 03/26/19 TIME: 13:29 Detailed Summary Eyes: no complaints ENT: no complaints Respiratory: shortness of breath (with exertion), other (reports "I'm feeling better today." ); No cough, No sputum, No wheezing Cardiovascular: no complaints; No chest pain, No palpitations Gastrointestinal: no complaints; No diarrhea, No nausea, No vomiting Genitourinary: no complaints Musculoskeletal: no complaints Skin: other (L flank bruising, nontender) Neurologic: no complaints Endocrine: no complaints Psychological: no complaints Exam/Review of Systems Exam Vitals Vital Signs Date Temp Pulse Resp B/P (MAP) Pulse Ox O2 O2 Flow FiO2 Time Delivery Rate 5/24/19 98 12:18 03/26/19 2.0 11:44 03/26/19 98.1 18 131/62 98 Nasal 11:10 (85) Cannula 03/24/19 28 21:46 Allergies Coded Allergies magnesium (Unverified Allergy, Intermediate, 03/16/19) NUMBNESS AND HOT FUSHES Intake and Output 03/25/19 03/25/19 03/26/19 1515:00 23:00 07:00 IntakeIntake Total 700 ml OutputOutput Total 650 ml BalanceBalance 50 ml Exam Constitutional: alert, oriented, frail, other (thin) Psych: nl mood/affect, anxiety Head: normocephalic, atraumatic Eyes: nl conjunctiva, nl lids ENMT: nl external ears & nose, nl nasal mucosa & septum, mucosa pink and moist (no thrush noted ) Neck: supple (no swelling ), non-tender Respiratory: normal air movement, diminished breath sounds no: wheezing Cardiovascular: regular rate and rhythm, nl pulses, murmurs/extra sounds Gastrointestinal: soft, non-tender, bowel sounds (normoactive ) Genitourinary - Male: other (no f/c) Musculoskeletal: other (old LUE AVF graft site, no ttp, no bruit or thrill. ) Extremities: normal pulses, other (Partial amputation of R 2nd and 3rd fingers and L 2nd and 3rd fingers, R middle finger is open to air with a dry scab noted, no swelling, erythema, or ttp. ) 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: nl mental status, nl speech, nl strength Skin: ecchymosis (Large left flank bruising which is non-ttp. BUE bruising scattered. ); No rash or lesions Results Result Diagram: 03/26/19 0642 03/26/19 0642 Results 24hrs Laboratory Tests Test 03/25/19 17:02 03/25/19 20:32 03/26/19 01:33 03/26/19 04:49 Bedside Glucose 222 H 251 H 251 H Lab Scanned BLOOD TRANSFUSIO Report N Test 03/26/19 06:42 03/26/19 08:12 03/26/19 11:29 White Blood Count 2.5 #L Red Blood Count 2.96 L Hemoglobin 9.7 L Hematocrit 28.8 L Mean Corpuscular 97.3 Volume Mean Corpuscular 32.8 Hemoglobin Mean Corpuscular 33.7 Hemoglobin Concen t Red Cell 14.6 H Distribution Width Platelet Count 289 # Mean Platelet 9.7 Volume Immature 1.200 H Granulocytes % Neutrophils % 86.8 H Lymphocytes % 9.2 L Monocytes % 2.4 Eosinophils % 0.0 Basophils % 0.4 Nucleated Red 0.0 Blood Cells % Immature 0.030 Granulocytes # Neutrophils # 2.2 Lymphocytes # 0.2 L Monocytes # 0.1 L Eosinophils # 0.0 Basophils # 0.0 Nucleated Red 0.0 Blood Cells # Sodium Level 136 Potassium Level 6.1 *H Chloride Level 107 Carbon Dioxide 17 L Level Anion Gap 12 Blood Urea 76 H Nitrogen Creatinine 3.77 H Est Glomerular 17 L Filtrat Rate mL/min Glucose Level 252 H Calcium Level 9.3 Procalcitonin 0.30 H Bedside Glucose 276 H [address] Chest 03/24/19 IMPRESSION: 1. Nodular consolidation in the left lower lobe is in keeping with bronchopneumonia and there is also multifocal bronchiolitis greatest in the left greater than right lower lobes that is likely also infectious. Small left ple ural effusion. 2. Severe calcification of the small arteries may be seen with diabetes and end-stage renal disease. [place] kidneys are small and calcified in keeping with end-stage renal disease. There is small volume ascites in the upper abdomen. 3. Severe multivessel coronary artery calcification and moderate aortic valve calcification. 4. Osteopenia. Periosteal reaction over the sternum may be due to secondary hyperparathyroidism from renal osteodystrophy. 5. Please note that in the absence of intravenous contrast, the study does not evaluate the patency of the vasculature. Medications Medication Current Medications IV Flush (NS 3 ml) 3 ml PER PROTOCOL IV ; Start 03/16/19 at 17:30 Ondansetron HCl (Zofran Inj) 4 mg Q6H PRN IV NAUSEA/VOMITING Last administered on 03/26/19at 05:58; Admin Dose 4 MG; Start 03/16/19 at 17:30 Aspirin (Aspirin) 81 mg DAILY PO Last administered on 03/26/19at 11:37; Admin Dose 81 MG; Start 03/17/19 at 09:00 Nitroglycerin (Nitroglycerin (Sl Tab) 0.4 Mg) 1 tab Q5M PRN SL .CHEST PAIN; Start 03/16/19 at 17:30 Acetaminophen (Tylenol Tab) 650 mg Q6H PRN PO .PAIN 1-3 OR TEMP; Start 03/16/19 at 17:30 Morphine Sulfate (morphine) 2 mg Q4H PRN IV .PAIN 7-10 Last administered on 03/26/19at 01:18; Admin Dose 2 MG; Start 03/16/19 at 17:30 Zolpidem Tartrate (Ambien) 5 mg QHS PRN PO .INSOMNIA Last administered on 03/18/19at 00:00; Admin Dose 5 MG; Start 03/16/19 at 17:30 Docusate Sodium (Colace) 100 mg Q12H PO Last administered on 03/25/19at 17:04; Admin Dose 100 MG; Start 03/16/19 at 17:30 Bisacodyl (Dulcolax) 5 mg DAILY PRN PO .CONSTIPATION; Start 03/16/19 at 17:30 Miscellaneous Information 1 ea NOTE XX ; Start 03/16/19 at 18:00 Glucose (Glutose) 15 gm Q15M PRN PO DECREASED GLUCOSE; Start 03/16/19 at 18:00 Glucose (Glutose) 22.5 gm Q15M PRN PO DECREASED GLUCOSE; Start 03/16/19 at 18:00 Dextrose (D50w Syringe) 25 ml Q15M PRN IV DECREASED GLUCOSE; Start 03/16/19 at 18:00 Dextrose (D50w Syringe) 50 ml Q15M PRN IV DECREASED GLUCOSE; Start 03/16/19 at 18:00 Glucagon (Glucagen) 1 mg Q15M PRN IM DECREASED GLUCOSE; Start 03/16/19 at 18:00 Glucose (Glutose) 15 gm Q15M PRN BUCCAL DECREASED GLUCOSE; Start 03/16/19 at 18:00 Pantoprazole (Protonix Tab) 40 mg DAILY@06 PO Last administered on 03/26/19at 05:52; Admin Dose 40 MG; Start 03/17/19 at 06:00 Tacrolimus (Prograf) 2 mg AM PO Last administered on 03/26/19at 11:37; Admin Dose 2 MG; Start 03/18/19 at 09:00 Mycophenolate Sodium (Myfortic) 180 mg Q12 PO Last administered on 03/26/19at 11:37; Admin Dose 180 MG; Start 03/17/19 at 21:00 Diagnostic Test (Pha) (Accu-Chek) 1 ea 02 XX Last administered on 03/26/19 02:00; Admin Dose 1 EA; Start 03/18/19 at 02:00 Guaifenesin/ Dextromethorphan (Robitussin Dm Liquid Cup) 10 ml Q4H PRN PO COUG H; Start 03/18/19 at 14:30 Hydralazine HCl (Apresoline) 10 mg Q4H PRN IV ELEVATED BLOOD PRESSURE Last administered on 03/26/19 03:56; Admin Dose 10 MG; Start 03/18/19 at 15:30 Metoclopramide HCl (Reglan) 5 mg TID PO Last administered on 03/26/19 13:00; Admin Dose 5 MG; Start 03/18/19 at 17:00 Simethicone (Mylicon) 80 mg Q6H PRN PO DISTENSION/GAS/BLOATING Last administered on 03/26/19 04:34; Admin Dose 80 MG; Start 03/18/19 at 17:30 Insulin Aspart (Novolog Insulin Pen) NOVOLOG *MODERATE* ALGORITHM WITH MEALS BEDTIME SC Last administered on 03/26/19 11:34; Admin Dose 6 UNIT; Start 03/18 at 21:00 Sodium Bicarbonate (Sodium Bicarbonate Tab) 650 mg BID PO Last administered on 03/25/19 20:33; Admin Dose 650 MG; Start 03/19/19 at 14:00 Ergocalciferol (Drisdol) 50,000 unit [place]@09 PO Last administered on 03/21/19 09:54; Admin Dose 50,000 UNIT; Start 03/21/19 at 09:00 Acetaminophen/ Hydrocodone Bitart ([place] (5/325)) 2 tab Q4H PRN PO MODERATE to sever 5-10 Last administered on 03/26/19 11:39; Admin Dose 2 TAB; Start 03/20/19 at 22:30 Tacrolimus (Prograf) 2 mg HS PO Last administered on 03/25/19 20:33; Admin Dose 2 MG; Start 03/22/19 at 21:00 Albuterol/ Ipratropium (Duoneb) 3 ml Q4H RESP THERAPY PRN HHN SHORTNESS OF BREATH; Start 03/23/19 at 04:00 Albuterol/ Ipratropium (Duoneb) 3 ml Q6HWA RESP THERAPY HHN Last administered on 03/25/19 19:37; Admin Dose 3 ML; Start 03/23/19 at 20:00 Insulin Glargine (Lantus) 10 units DAILY@2000 SC Last administered on 03/25/19 20:43; Admin Dose 10 UNITS; Start 03/24/19 at 20:00 Methylprednisolone Sodium Succinate (Solu-Medrol) 40 mg Q8 IV Last administered on 03/26/19 05:52; Admin Dose 40 MG; Start 03/25/19 at 14:00 Levofloxacin (Levaquin) 250 mg Q48H PO Last administered on 03/25/19 12:31; Admin Dose 250 MG; Start 03/25/19 at 10:00 MAHAD MAHARAJ NP March 26, 2019 13:32
--- NOTE | 2019-03-26 13:55 | CONS ---
[facility] Esvin Manley Unit Number: [id number] Date of : 1960 Patient Status: Admitted Inpatient Attending Doctor: Lupe Kaplan MD Edit: HARVINDER BLOOD MD on 03/26/19 @ 16:16 refusing kayexalate/veltassa give albuterol/insulin recehck k Assessment/Plan Assessment/Plan Hospital Course (Demo Recall) 1. Hyperkalemia, could be secondary to worsening renal failure. Renal US showed hydronephrosis of transplant kidney, acute 2. Abdominal pain with chills. 4. Acute on chronic renal failure. The patient had chronic kidney disease IV in the past with a creatinine of 3.2 to 3.4. It could be exacerbated by acute hemodynamic changes with sepsis. vs hydronephrosis vs ATN vs progression of disease, pt has underlying DM nephropathy 5. Elevated lipase.[facility] is notorious for very sensitive lipase level 6. Urinary tract infection. 7. Pneumonia. 8. Anemia. 9. History of hepatitis C. 10. History of donor renal transplantation. 11. metabolic acidosis likely secondary to renal failure 12. Non compliance He had refused p.o. Kayexalate and Veltassa 13, Pneumonia 14. vit d deficiency Assessment/Plan (Daily) - fluid restriction - cw Prograf 2 mg/1 now, mycophenolate and cw prednisone. - c/w ergocalciferol 50 000 u weekly -c/w Bicarb tabs - urology consult appreciated continue with frequent bladder emptying - renally dose all meds -phos level normal -pt is on steroids -pt refused medication Consultation Date/Type/Reason Admit Date/Time March 17, 2019 at 13:23 Initial Consult Date 03/17/19 Type of Consult nephrology Requesting Provider: LUPE KAPLAN MD Date/Time of Note DATE: 03/26/19 TIME: 13:50 24 HR Interval Summary Free Text/Dictation does not feel well Exam/Review of Systems Exam Vitals Vital Signs Date Temp Pulse Resp B/P (MAP) Pulse Ox O2 O2 Flow FiO2 Time Delivery Rate 03/26/19 98 12:18 03/26/19 2.0 11:44 03/26/19 98.1 18 131/62 98 Nasal 11:10 (85) Cannula 03/24/19 28 21:46 Intake and Output 03/25/19 03/25/19 03/26/19 1515:00 23:00 07:00 IntakeIntake Total 700 ml OutputOutput Total 650 ml BalanceBalance 50 ml Constitutional: alert, oriented Head: normocephalic Respiratory: diminished breath sounds Cardiovascular: regular rate and rhythm Gastrointestinal: soft Musculoskeletal: muscle weakness Results Result Diagram: 03/26/19 0642 03/26/19 0642 Results 24hrs Laboratory Tests Test 03/25/19 17:02 03/25/19 20:32 03/26/19 01:33 03/26/19 04:49 Bedside Glucose 222 H 251 H 251 H Lab Scanned BLOOD TRANSFUSIO Report N Test 03/26/19 06:42 03/26/19 08:12 03/26/19 11:29 White Blood Count 2.5 #L Red Blood Count 2.96 L Hemoglobin 9.7 L Hematocrit 28.8 L Mean Corpuscular 97.3 Volume Mean Corpuscular 32.8 Hemoglobin Mean Corpuscular 33.7 Hemoglobin Concen t Red Cell 14.6 H Distribution Width Platelet Count 289 # Mean Platelet 9.7 Volume Immature 1.200 H Granulocytes % Neutrophils % 86.8 H Lymphocytes % 9.2 L Monocytes % 2.4 Eosinophils % 0.0 Basophils % 0.4 Nucleated Red 0.0 Blood Cells % Immature 0.030 Granulocytes # Neutrophils # 2.2 Lymphocytes # 0.2 L Monocytes # 0.1 L Eosinophils # 0.0 Basophils # 0.0 Nucleated Red 0.0 Blood Cells # Sodium Level 136 Potassium Level 6.1 *H Chloride Level 107 Carbon Dioxide 17 L Level Anion Gap 12 Blood Urea 76 H Nitrogen Creatinine 3.77 H Est Glomerular 17 L Filtrat Rate mL/min Glucose Level 252 H Calcium Level 9.3 Procalcitonin 0.30 H Bedside Glucose 276 H 227 H Medications Medication Current Medications IV Flush (NS 3 ml) 3 ml PER PROTOCOL IV ; Start 03/16/19 at 17:30 Ondansetron HCl (Zofran Inj) 4 mg Q6H PRN IV NAUSEA/VOMITING Last administered on 03/26/19at 05:58; Admin Dose 4 MG; Start 03/16/19 at 17:30 Aspirin (Aspirin) 81 mg DAILY PO Last administered on 03/26/19at 11:37; Admin Dose 81 MG; Start 03/17/19 at 09:00 Nitroglycerin (Nitroglycerin (Sl Tab) 0.4 Mg) 1 tab Q5M PRN SL .CHEST PAIN; Start 03/16/19 at 17:30 Acetaminophen (Tylenol Tab) 650 mg Q6H PRN PO .PAIN 1-3 OR TEMP; Start 03/16/19 at 17:30 Morphine Sulfate (morphine) 2 mg Q4H PRN IV .PAIN 7-10 Last administered on 03/26/19at 13:25; Admin Dose 2 MG; Start 03/16/19 at 17:30 Zolpidem Tartrate (Ambien) 5 mg QHS PRN PO .INSOMNIA Last administered on 03/18/19at 00:00; Admin Dose 5 MG; Start 03/16/19 at 17:30 Docusate Sodium (Colace) 100 mg Q12H PO Last administered on 03/25/19at 17:04; Admin Dose 100 MG; Start 03/16/19 at 17:30 Bisacodyl (Dulcolax) 5 mg DAILY PRN PO .CONSTIPATION; Start 03/16/19 at 17:30 Miscellaneous Information 1 ea NOTE XX ; Start 03/16/19 at 18:00 Glucose (Glutose) 15 gm Q15M PRN PO DECREASED GLUCOSE; Start 03/16/19 at 18:00 Glucose (Glutose) 22.5 gm Q15M PRN PO DECREASED GLUCOSE; Start 03/16/19 at 18:00 Dextrose (D50w Syringe) 25 ml Q15M PRN IV DECREASED GLUCOSE; Start 03/16/19 at 18:00 Dextrose (D50w Syringe) 50 ml Q15M PRN IV DECREASED GLUCOSE; Start 03/16/19 at 18:00 Glucagon (Glucagen) 1 mg Q15M PRN IM DECREASED GLUCOSE; Start 03/16/19 at 18:00 Glucose (Glutose) 15 gm Q15M PRN BUCCAL DECREASED GLUCOSE; Start 03/16/19 at 18:00 Pantoprazole (Protonix Tab) 40 mg DAILY@06 PO Last administered on 03/26/19 05:52; Admin Dose 40 MG; Start 03/17/19 at 06:00 Tacrolimus (Prograf) 2 mg AM PO Last administered on 03/26/19 11:37; Admin Dose 2 MG; Start 03/18/19 at 09:00 Mycophenolate Sodium (Myfortic) 180 mg Q12 PO Last administered on 03/26/19 11:37; Admin Dose 180 MG; Start 03/17/19 at 21:00 Diagnostic Test (Pha) (Accu-Chek) 1 ea 02 XX Last administered on 03/26/19 02:00; Admin Dose 1 EA; Start 03/18/19 at 02:00 Guaifenesin/ Dextromethorphan (Robitussin Dm Liquid Cup) 10 ml Q4H PRN PO COUGH; Start 03/18/19 at 14:30 Hydralazine HCl (Apresoline) 10 mg Q4H PRN IV ELEVATED BLOOD PRESSURE Last administered on 03/26/19 03:56; Admin Dose 10 MG; Start 03/18/19 at 15:30 Metoclopramide HCl (Reglan) 5 mg TID PO Last administered on 03/26/19 13:00; A dmin Dose 5 MG; Start 03/18/19 at 17:00 Simethicone (Mylicon) 80 mg Q6H PRN PO DISTENSION/GAS/BLOATING Last administered on 03/26/19 04:34; Admin Dose 80 MG; Start 03/18/19 at 17:30 Insulin Aspart (Novolog Insulin Pen) NOVOLOG *MODERATE* ALGORITHM WITH MEALS BEDTIME SC Last administered on 03/26/19 11:34; Admin Dose 6 UNIT; Start 03/18/19 at 21:00 Sodium Bicarbonate (Sodium Bicarbonate Tab) 650 mg BID PO Last administered on 03/25/19 20:33; Admin Dose 650 MG; Start 03/19/19 at 14:00 Ergocalciferol (Drisdol) 50,000 unit [place]@09 PO Last administered on 03/21/19 09:54; Admin Dose 50,000 UNIT; Start 03/21/19 at 09:00 Acetaminophen/ Hydrocodone Bitart ([place] (5/325)) 2 tab Q4H PRN PO MODERATE to sever 5-10 Last administered on 03/26/19 11:39; Admin Dose 2 TAB; Start 03/20/19 at 22:30 Tacrolimus (Prograf) 2 mg HS PO Last administered on 03/25/19 20:33; Admin Dose 2 MG; Start 03/22/19 at 21:00 Albuterol/ Ipratropium (Duoneb) 3 ml Q4H RESP THERAPY PRN HHN SHORTNESS OF BREATH; Start 03/23/19 at 04:00 Albuterol/ Ipratropium (Duoneb) 3 ml Q6HWA RESP THERAPY HHN Last administered on 03/25/19 19:37; Admin Dose 3 ML; Start 03/23/19 at 20:00 Insulin Glargine (Lantus) 10 units DAILY@2000 SC Last administered on 03/25/19 20:43; Admin Dose 10 UNITS; Start 03/24/19 at 20:00 Methylprednisolone Sodium Succinate (Solu-Medrol) 40 mg Q8 IV Last administered on 03/26/19 13:25; Admin Dose 40 MG; Start 03/25/19 at 14:00 Levofloxacin (Levaquin) 250 mg Q48H PO Last administered on 03/25/19 12:31; Admin Dose 250 MG; Start 03/25/19 at 10:00 GENNARO GAO March 26, 2019 13:55
--- NOTE | 2019-03-26 14:11 | CONS ---
Consult Date/Type/Reason Admit Date/Time March 17, 2019 at 13:23 Initial Consult Date 03/25/19 Type of Consult Pulmonary Requesting Provider: LUEP KAPLAN MD Date/Time of Note DATE: 03/26/19 TIME: 14:09 Subjective Patient is comfortable this morning no respiratory distress. Objective Vital Signs Date Temp Pulse Resp B/P (MAP) Pulse Ox O2 O2 Flow FiO2 Time Delivery Rate 03/26/19 98 12:18 03/26/19 2.0 11:44 03/26/19 98.1 18 131/62 98 Nasal 11:10 (85) Cannula 03/24/19 28 21:46 Intake and Output 03/25/19 03/25/19 03/26/19 1515:00 23:00 07:00 IntakeIntake Total 700 ml OutputOutput Total 650 ml BalanceBalance 50 ml Exam GENERAL: Well-nourished well-developed gentleman comfortable at rest per chart NECK: Supple. No JVD or lymphadenopathy. CARDIAC EXAM: S1, S2. No added sounds or murmurs. CHEST: clear bilaterally, No added sounds, rales or wheezes ABDOMEN: Soft, nontender. No guarding or rebound. EXTREMITIES: No cyanosis, clubbing or edema. NEUROLOGIC: Generalized weakness. No focal deficits. Vent Setting Fraction of Inspired Oxygen pe: 28 Results/Medications Result Diagram: 03/26/19 0642 03/26/19 0642 Results 24 hrs Laboratory Tests Test 03/25/19 17:02 03/25/19 20:32 03/26/19 01:33 03/26/19 04:49 Bedside Glucose 222 H 251 H 251 H Lab Scanned BLOOD TRANSFUSIO Report N Test 03/26/19 06:42 03/26/19 08:12 03/26/19 11:29 White Blood Count 2.5 #L Red Blood Count 2.96 L Hemoglobin 9.7 L Hematocrit 28.8 L Mean Corpuscular 97.3 Volume Mean Corpuscular 32.8 Hemoglobin Mean Corpuscular 33.7 Hemoglobin Concen t Red Cell 14.6 H Distribution Width Platelet Count 289 # Mean Platelet 9.7 Volume Immature 1.200 H Granulocytes % Neutrophils % 86.8 H Lymphocytes % 9.2 L Monocytes % 2.4 Eosinophils % 0.0 Basophils % 0.4 Nucleated Red 0.0 Blood Cells % Immature 0.030 Granulocytes # Neutrophils # 2.2 Lymphocytes # 0.2 L Monocytes # 0.1 L Eosinophils # 0.0 Basophils # 0.0 Nucleated Red 0.0 Blood Cells # Sodium Level 136 Potassium Level 6.1 *H Chloride Level 107 Carbon Dioxide 17 L Level Anion Gap 12 Blood Urea 76 H Nitrogen Creatinine 3.77 H Est Glomerular 17 L Filtrat Rate mL/min Glucose Level 252 H Calcium Level 9.3 Procalcitonin 0.30 H Bedside Glucose 276 H 227 H Medications Current Medications IV Flush (NS 3 ml) 3 ml PER PROTOCOL IV ; Start 03/16/19 at 17:30 Ondansetron HCl (Zofran Inj) 4 mg Q6H PRN IV NAUSEA/VOMITING Last administered on 03/26/19at 05:58; Admin Dose 4 MG; Start 03/16/19 at 17:30 Aspirin (Aspirin) 81 mg DAILY PO Last administered on 03/26/19at 11:37; Admin Dose 81 MG; Start 03/17/19 at 09:00 Nitroglycerin (Nitroglycerin (Sl Tab) 0.4 Mg) 1 tab Q5M PRN SL .CHEST PAIN; Start 03/16/19 at 17:30 Acetaminophen (Tylenol Tab) 650 mg Q6H PRN PO .PAIN 1-3 OR TEMP; Start 03/16/19 at 17:30 Morphine Sulfate (morphine) 2 mg Q4H PRN IV .PAIN 7-10 Last administered on 03/26/19at 13:25; Admin Dose 2 MG; Start 03/16/19 at 17:30 Zolpidem Tartrate (Ambien) 5 mg QHS PRN PO .INSOMNIA Last administered on 03/18/19at 00:00; Admin Dose 5 MG; Start 03/16/19 at 17:30 Docusate Sodium (Colace) 100 mg Q12H PO Last administered on 03/25/19at 17:04; Admin Dose 100 MG; Start 03/16/19 at 17:30 Bisacodyl (Dulcolax) 5 mg DAILY PRN PO .CONSTIPATION; Start 03/16/19 at 17:30 Miscellaneous Information 1 ea NOTE XX ; Start 03/16/19 at 18:00 Glucose (Glutose) 15 gm Q15M PRN PO DECREASED GLUCOSE; Start 03/16/19 at 18:00 Glucose (Glutose) 22.5 gm Q15M PRN PO DECREASED GLUCOSE; Start 03/16/19 at 18:00 Dextrose (D50w Syringe) 25 ml Q15M PRN IV DECREASED GLUCOSE; Start 03/16/19 at 18:00 Dextrose (D50w Syringe) 50 ml Q15M PRN IV DECREASED GLUCOSE; Start 03/16/19 at 18:00 Glucagon (Glucagen) 1 mg Q15M PRN IM DECREASED GLUCOSE; Start 03/16/19 at 18:00 Glucose (Glutose) 15 gm Q15M PRN BUCCAL DECREASED GLUCOSE; Start 03/16/19 at 18:00 Pantoprazole (Protonix Tab) 40 mg DAILY@06 PO Last administered on 03/26/19 05:52; Admin Dose 40 MG; Start 03/17/19 at 06:00 Tacrolimus (Prograf) 2 mg AM PO Last administered on 03/26/19 11:37; Admin Dose 2 MG; Start 03/18/19 at 09:00 Mycophenolate Sodium (Myfortic) 180 mg Q12 PO Last administered on 03/26/19 11:37; Admin Dose 180 MG; Start 03/17/19 at 21:00 Diagnostic Test (Pha) (Accu-Chek) 1 ea 02 XX Last administered on 03/26/19 02:00; Admin Dose 1 EA; Start 03/18/19 at 02:00 Guaifenesin/ Dextromethorphan (Robitussin Dm Liquid Cup) 10 ml Q4H PRN PO COUGH; Start 03/18/19 at 14:30 Hydralazine HCl (Apresoline) 10 mg Q4H PRN IV ELEVATED BLOOD PRESSURE Last adm inistered on 03/26/19 03:56; Admin Dose 10 MG; Start 03/18/19 at 15:30 Metoclopramide HCl (Reglan) 5 mg TID PO Last administered on 03/26/19 13:00; Admin Dose 5 MG; Start 03/18/19 at 17:00 Simethicone (Mylicon) 80 mg Q6H PRN PO DISTENSION/GAS/BLOATING Last administered on 03/26/19 04:34; Admin Dose 80 MG; Start 03/18/19 at 17:30 Insulin Aspart (Novolog Insulin Pen) NOVOLOG *MODERATE* ALGORITHM WITH MEALS BEDTIME SC Last administered on 03/26/19 11:34; Admin Dose 6 UNIT; Start 03/18/19 at 21:00 Sodium Bicarbonate (Sodium Bicarbonate Tab) 650 mg BID PO Last administered on 03/25/19 20:33; Admin Dose 650 MG; Start 03/19/19 at 14:00 Ergocalciferol (Drisdol) 50,000 unit [place]@09 PO Last administered on 03/21/19 09:54; Admin Dose 50,000 UNIT; Start 03/21/19 at 09:00 Acetaminophen/ Hydrocodone Bitart ([place] (5/325)) 2 tab Q4H PRN PO MODERATE to sever 5-10 Last administered on 03/26/19 11:39; Admin Dose 2 TAB; Start 03/20/19 at 22:30 Tacrolimus (Prograf) 2 mg HS PO Last administered on 03/25/19 20:33; Admin Dose 2 MG; Start 03/22/19 at 21:00 Albuterol/ Ipratropium (Duoneb) 3 ml Q4H RESP THERAPY PRN HHN SHORTNESS OF BREATH; Start 03/23/19 at 04:00 Albuterol/ Ipratropium (Duoneb) 3 ml Q6HWA RESP THERAPY HHN Last administered on 03/25/19 19:37; Admin Dose 3 ML; Start 03/23/19 at 20:00 Insulin Glargine (Lantus) 10 units DAILY@2000 SC Last administered on 03/25/19 20:43; Admin Dose 10 UNITS; Start 03/24/19 at 20:00 Methylprednisolone Sodium Succinate (Solu-Medrol) 40 mg Q8 IV Last administered on 03/26/19 13:25; Admin Dose 40 MG; Start 03/25/19 at 14:00 Levofloxacin (Levaquin) 250 mg Q48H PO Last administered on 03/25/19 12:31; Admin Dose 250 MG; Start 03/25/19 at 10:00 Assessment/Plan Hospital Course (Demo Recall) Assessment recommendations; 1. Persistent hyperkalemia in a patient with renal insufficiency. Patient continues to decline Kayexalate. 2. Mild respiratory distress now improved likely secondary to acute bronchitis 3. History of hepatitis C 4. History of cadaveric renal transplant Plan 1. Continue correction of hyperkalemia 2. Continue bronchodilators encourage out of bed [facility]ON[facility]GDEN [facility] March 26, 2019 14:11
[2019-03-26] MEDS ORDERED: CA CHLORIDE 10% 10 ML SYRINGE IV STA (16:13)
[2019-03-26] MEDS ORDERED: INSULIN REGULAR, HUMAN 100 UNIT/1 ML 3ML VIAL IVP STA (16:13)
[2019-03-26] MEDS ORDERED: ALBUTEROL 0.5% (NEB) 2.5 MG/0.5 ML AMP INH STA (16:13)
[2019-03-26] MEDS ORDERED: DEXTROSE 50% 50 ML SYRINGE IV PRN (16:30)
--- NOTE | 2019-03-26 18:09 | CONS ---
Consult Date/Type/Reason Admit Date/Time March 17, 2019 at 13:23 Initial Consult Date 03/25/19 Type of Consultation: Urology Reason for Consultation Hydronephrosis in the transplanted kidney and hematoma in the abdominal wall left side Requesting Provider: LUPE KAPLAN MD Date/Time of Note DATE: 03/26/19 TIME: 18:04 Subjective Patient appears to be comfortable and he denies having any pain Objective Vitals Vital Signs Date Temp Pulse Resp B/P (MAP) Pulse Ox O2 O2 Flow FiO2 Time Delivery Rate 03/26/19 88 16:55 03/26/19 2.0 11:44 03/26/19 98.1 18 131/62 98 Nasal 11:10 (85) Cannula 03/24/19 28 21:46 Intake and Output 03/25/19 03/25/19 03/26/19 1515:00 23:00 07:00 IntakeIntake Total 700 ml OutputOutput Total 650 ml BalanceBalance 50 ml Exam The abdomen is soft there is a hematoma above the left iliac crest extending toward the back and also toward the inguinal area. That happened according to the patient when he was coughing. Results/Medications Result Diagram: 03/26/19 0642 03/26/19 1639 Results 24 hrs Laboratory Tests Test 03/25/19 20:32 03/26/19 01:33 03/26/19 04:49 03/26/19 06:42 Bedside Glucose 251 H 251 H Lab Scanned BLOOD TRANSFUSIO Report N White Blood Count 2.5 #L Red Blood Count 2.96 L Hemoglobin 9.7 L Hematocrit 28.8 L Mean Corpuscular 97.3 Volume Mean Corpuscular 32.8 Hemoglobin Mean Corpuscular 33.7 Hemoglobin Concen t Red Cell 14.6 H Distribution Width Platelet Count 289 # Mean Platelet 9.7 Volume Immature 1.200 H Granulocytes % Neutrophils % 86.8 H Lymphocytes % 9.2 L Monocytes % 2.4 Eosinophils % 0.0 Basophils % 0.4 Nucleated Red 0.0 Blood Cells % Immature 0.030 Granulocytes # Neutrophils # 2.2 Lymphocytes # 0.2 L Monocytes # 0.1 L Eosinophils # 0.0 Basophils # 0.0 Nucleated Red 0.0 Blood Cells # Sodium Level 136 Potassium Level 6.1 *H Chloride Level 107 Carbon Dioxide 17 L Level Anion Gap 12 Blood Urea 76 H Nitrogen Creatinine 3.77 H Est Glomerular 17 L Filtrat Rate mL/min Glucose Level 252 H Calcium Level 9.3 Procalcitonin 0.30 H Test 03/26/19 08:12 03/26/19 11:29 03/26/19 15:00 03/26/19 16:39 Bedside Glucose 276 H 227 H Urine Color YELLOW Urine Clarity SLIGHTLY CLOUDY A Urine pH 5.0 Urine Specific 1.017 [place] Urine Ketones NEGATIVE Urine Nitrite NEGATIVE Urine Bilirubin NEGATIVE Urine NEGATIVE Urobilinogen Urine Leukocyte TRACE A Esterase Urine Microscopic 2 RBC Urine Microscopic 35 H WBC Urine Hemoglobin NEGATIVE Urine Glucose 1+ H Urine Total 3+ H Protein Potassium Level 6.5 *H Test 03/26/19 17:02 03/26/19 17:24 Bedside Glucose 252 H 248 H Home Meds Active Scripts Tacrolimus* (Prograf*) 1 Mg Capsule, 2 MG PO Q12 for 30 Days, CAP Prov:LETI RODRIGUEZ 01/19/19 Reported Medications Insulin Lispro (Humalog) 100 Unit/1 Ml Cartridge, 0 SQ SLIDING SCALE, EA 2-10 UNITS 03/16/19 Mycophenolate Sodium* (Mycophenolic Acid*) 180 Mg Tablet.dr, 180 MG PO Q12, TAB 03/16/19 Prednisone* (Prednisone*) 5 Mg Tab, 5 MG PO DAILY, TAB 12/09/18 Medications Current Medications IV Flush (NS 3 ml) 3 ml PER PROTOCOL IV ; Start 03/16/19 at 17:30 Ondansetron HCl (Zofran Inj) 4 mg Q6H PRN IV NAUSEA/VOMITING Last administered on 03/26/19at 05:58; Admin Dose 4 MG; Start 03/16/19 at 17:30 Aspirin (Aspirin) 81 mg DAILY PO Last administered on 03/26/19at 11:37; Admin Dose 81 MG; Start 03/17/19 at 09:00 Nitroglycerin (Nitroglycerin (Sl Tab) 0.4 Mg) 1 tab Q5M PRN SL .CHEST PAIN; Start 03/16/19 at 17:30 Acetaminophen (Tylenol Tab) 650 mg Q6H PRN PO .PAIN 1-3 OR TEMP; Start 03/16/19 at 17:30 Morphine Sulfate (morphine) 2 mg Q4H PRN IV .PAIN 7-10 Last administered on 03/26/19at 13:25; Admin Dose 2 MG; Start 03/16/19 at 17:30 Zolpidem Tartrate (Ambien) 5 mg QHS PRN PO .INSOMNIA Last administered on 03/18/19at 00:00; Admin Dose 5 MG; Start 03/16/19 at 17:30 Docusate Sodium (Colace) 100 mg Q12H PO Last administered on 03/25/19at 17:04; Admin Dose 100 MG; Start 03/16/19 at 17:30 Bisacodyl (Dulcolax) 5 mg DAILY PRN PO .CONSTIPATION; Start 03/16/19 at 17:30 Miscellaneous Information 1 ea NOTE XX ; Start 03/16/19 at 18:00 Glucose (Glutose) 15 gm Q15M PRN PO DECREASED GLUCOSE; Start 03/16/19 at 18:00 Glucose (Glutose) 22.5 gm Q15M PRN PO DECREASED GLUCOSE; Start 03/16/19 at 18:00 Dextrose (D50w Syringe) 25 ml Q15M PRN IV DECREASED GLUCOSE; Start 03/16/19 at 18:00 Dextrose (D50w Syringe) 50 ml Q15M PRN IV DECREASED GLUCOSE; Start 03/16/19 at 18:00 Glucagon (Glucagen) 1 mg Q15M PRN IM DECREASED GLUCOSE; Start 03/16/19 at 18:00 Glucose (Glutose) 15 gm Q15M PRN BUCCAL DECREASED GLUCOSE; Start 03/16/19 at 18:00 Pantoprazole (Protonix Tab) 40 mg DAILY@06 PO Last administered on 03/26/19at 05:52; Admin Dose 40 MG; Start 03/17/19 at 06:00 Tacrolimus (Prograf) 2 mg AM PO Last administered on 03/26/19at 11:37; Admin Dose 2 MG; Start 03/18/19 at 09:00 Mycophenolate Sodium (Myfortic) 180 mg Q12 PO Last administered on 03/26/19at 11:37; Admin Dose 180 MG; Start 03/17/19 at 21:00 Diagnostic Test (Pha) (Accu-Chek) 1 ea 02 XX Last administered on 03/26/19at 02:00; Admin Dose 1 EA; Start 03/18/19 at 02:00 Guaifenesin/ Dextromethorphan (Robitussin Dm Liquid Cup) 10 ml Q4H PRN PO COUGH; Start 03/18/19 at 14:30 Hydralazine HCl (Apresoline) 10 mg Q4H PRN IV ELEVATED BLOOD PRESSURE Last administered on 03/26/19 03:56; Admin Dose 10 MG; Start 03/18/19 at 15:30 Metoclopramide HCl (Reglan) 5 mg TID PO Last administered on 03/26/19 13:00; Admin Dose 5 MG; Start 03/18/19 at 17:00 Simethicone (Mylicon) 80 mg Q6H PRN PO DISTENSION/GAS/BLOATING Last administered on 03/26/19 04:34; Admin Dose 80 MG; Start 03/18/19 at 17:30 Insulin Aspart (Novolog Insulin Pen) NOVOLOG *MODERATE* ALGORITHM WITH MEALS BEDTIME SC Last administered on 03/26/19 17:44; Admin Dose 6 UNIT; Start 03/18/19 at 21:00 Sodium Bicarbonate (Sodium Bicarbonate Tab) 650 mg BID PO Last administered on 03/25/19 20:33; Admin Dose 650 MG; Start 03/19/19 at 14:00 Ergocalciferol (Drisdol) 50,000 unit Sutton@09 PO Last administered on 03/21/19 09:54; Admin Dose 50,000 UNIT; Start 03/21/19 at 09:00 Acetaminophen/ Hydrocodone Bitart ([place] (5/325)) 2 tab Q4H PRN PO MODERATE to sever 5-10 Last administered on 03/26/19 15:40; Admin Dose 2 TAB; Start 03/20/19 at 22:30 Albuterol/ Ipratropium (Duoneb) 3 ml Q4H RESP THERAPY PRN HHN SHORTNESS OF BREATH; Start 03/23/19 at 04:00 Albuterol/ Ipratropium (Duoneb) 3 ml Q6HWA RESP THERAPY HHN Last administered on 03/25/19 19:37; Admin Dose 3 ML; Start 03/23/19 at 20:00 Insulin Glargine (Lantus) 10 units DAILY@2000 SC Last administered on 03/25/19 20:43; Admin Dose 10 UNITS; Start 03/24/19 at 20:00 Methylprednisolone Sodium Succinate (Solu-Medrol) 40 mg Q8 IV Last administered on 03/26/19at 13:25; Admin Dose 40 MG; Start 03/25/19 at 14:00 Levofloxacin (Levaquin) 250 mg Q48H PO Last administered on 03/25/19at 12:31; Admin Dose 250 MG; Start 03/25/19 at 10:00 Tacrolimus (Prograf) 1 mg HS PO ; Start 03/26/19 at 21:00 Dextrose (D50w Syringe) ONCE PRN IV DECREASED GLUCOSE; Start 03/26/19 at 16:30; Stop 03/27/19 at 16:29 Insulin Human NPH (Humulin N) 5 unit TID SC ; Start 03/26/19 at 21:00 Assessment/Plan Hospital Course (Demo Recall) 58-year-old male is known to have a l history of cadaveric kidney transplant in 2009 with chronic kidney disease stage IV, diabetes, hypertension, chronic HCV infection, 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 Patient presented to the emergency room with complaints of abdominal pain and decreased urinary output over 1 month. Patient noted to have worsening renal failure with hyperkalemia on evaluation in the emergency room. Patient had renal ultrasound and that showed mild hydronephrosis of the transplanted kidney. Patient has been admitted to the hospital here before and same findings were noted in the transplanted kidney. On the examination he has a hematoma in the left side of the abdomen and he states that happened after he cough. Patient does have a right hydrocele. As far as a hydronephrosis in the transplanted kidney disease has been present before. We will encourage the patient to urinate often and try to keep his bladder empty. The hematoma the left side of the abdomen is expanding toward the genital area. It will clear hopefully in the same way as the right side did before. RAMILA GONZALEZ MD March 26, 2019 18:09
[2019-03-26] MEDS: SODIUM POLYSTYRENE 15 GM KIT (POWDER + SORBITOL) PO SCH ×3 (20:00→23:29)
--- NOTE | 2019-03-26 20:22 | PN ---
DATE: 03/26/2019 SUBJECTIVE: The patient denies any chest pain or shortness of breath. No history of fever or chills . The patient's potassium continues to be issue. This morning it was 6.1. Dr. Fofana was called fr om nephrology standpoint. The patient denied any fever or chills. PHYSICAL EXAMINATION: GENERAL: The patient is awake, alert. VITAL SIGNS: Temperature 98.1, pulse 92, respirations 18, blood pressure , O2 saturation 98% on 2 liters nasal cannula. HEENT: No eye discharge or redness. Nose and ears normal. NECK: No mass. CHEST: Diminished air entry at bases. CARDIOVASCULAR: S1, S2 normal. No murmur. ABDOMEN: Soft, nondistended. EXTREMITIES: No edema. NEUROLOGIC: The patient is awake, alert, fairly oriented. IMPRESSION: 1. Hyperkalemia. The patient is noncompliant, intermittently declines Kayexalate. 2. Acute bronchitis/nodular consolidation. Continue IV steroids and Levaquin. The patient is being seen by Dr. Olmstead from infectious disease standpoint. 3. Acute on chronic renal failure with a history of hepatitis C and a history of renal transplant. The patient is being seen by Dr. Fofana and the patient's creatinine is stable at 3.5 at this time. 4. Diabetes. Blood sugar worse due to steroids. We will add NPH with Solu-Medrol dose. Dictated By: LUPE DUARTE/NAKIA Conf#: [id number] DID#: [id number] CC: HARVINDER FOFANA;*EndCC*
[2019-03-26] MEDS: NPH, HUMAN INSULIN ISOPHANE 3ML VIAL SC SCH (20:33)
[2019-03-26] MEDS: INSULIN GLARGINE [LANTus] (100 UNITS/ML) SYG SC SCH (20:33)
[2019-03-27] VITALS (14 sets, daily range): BP systolic 116–150; BP diastolic 56–92; PULSE 67–101; RESP 20–22
[2019-03-27] MEDS: HYDROCODONE/APAP (5/325) TAB PO PRN ×5 (00:13→19:53)
[2019-03-27] MEDS: ACCU-CHEK XX SCH (02:48)
[2019-03-27] MEDS: DOCUSATE SODIUM 100 MG CAP PO SCH ×2 (05:25→16:46)
[2019-03-27] MEDS: METHYLPREDNISOLONE 40 MG INJ IV SCH (05:25)
[2019-03-27] MEDS: PANTOPRAZOLE (EC) 40 MG TAB PO SCH (05:25)
[2019-03-27] MEDS: ALBUTEROL/IPRATROPIUM (NEB) 3 ML AMP HHN SCH ×3 (08:00→20:00)
[2019-03-27] MEDS: INSULIN ASPART [NOVOLOG] 3 ML PEN SC SCH ×4 (08:54→21:00)
[2019-03-27] MEDS: NPH, HUMAN INSULIN ISOPHANE 3ML VIAL SC SCH ×3 (08:58→21:00)
--- NOTE | 2019-03-27 08:58 | CONS ---
Assessment/Plan Assessment/Plan Hospital Course (Demo Recall) 1. Hyperkalemia, could be secondary to worsening renal failure. 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 PT REFUSED HD 2. Abdominal pain with chills. 4. Acute on chronic renal failure. The patient had chronic kidney disease IV in the past with a creatinine of 3.2 to 3.4. It could be exacerbated by acute hemodynamic changes with sepsis. vs hydronephrosis vs ATN vs progression of disease, pt has underlying DM nephropathy 5. Elevated lipase.[facility] is notorious for very sensitive lipase level 6. Urinary tract infection. 7. Pneumonia. 8. Anemia. 9. History of hepatitis C. 10. History of donor renal transplantation. 11. metabolic acidosis likely secondary to renal failure 12. Non compliance He had refused p.o. Kayexalate and V[place] 13, Pneumonia 14. vit d deficiency Assessment/Plan (Daily) - order insulin -CONSENT FOR Hd CATHETER -COMMUNICATED WITH DR Mendez. -spoke to pt he still prefer Full code, refused HD. -spoke to pt in front of nurse -he said he will take KAyaxalate - fluid restriction - cw Prograf 2 mg/1 now, mycophenolate and cw prednisone. - c/w ergocalciferol 50 000 u weekly -c/w Bicarb tabs - urology consult appreciated continue with frequent bladder emptying - renally dose all meds -pt is on steroids -pt refused medication Consultation Date/Type/Reason Admit Date/Time March 17, 2019 at 13:23 Initial Consult Date 03/17/19 Type of Consult nephrology Requesting Provider: LUPE KAPLAN MD Date/Time of Note DATE: 03/27/19 TIME: 08:58 24 HR Interval Summary Free Text/Dictation cough Constitutional: improved Exam/Review of Systems Exam Vitals Vital Signs Date Temp Pulse Resp B/P (MAP) Pulse Ox O2 O2 Flow FiO2 Time Delivery Rate 03/27/19 97.9 76 22 132/92 96 Room Air 07:18 (105) 03/27/19 2.0 03:58 03/24/19 28 21:46 Intake and Output 03/26/19 03/26/19 03/27/19 1515:00 23:00 07:00 IntakeIntake Total 900 ml 800 ml OutputOutput Total 1000 ml 700 ml BalanceBalance -100 ml 100 ml Exam pale Constitutional: alert, oriented Head: normocephalic Eyes: nl conjunctiva Neck: supple Respiratory: diminished breath sounds Cardiovascular: regular rate and rhythm Gastrointestinal: surgical scars Results Result Diagram: 03/27/19 0601 03/27/19 0601 Results 24hrs Laboratory Tests Test 03/26/19 11:29 03/26/19 15:00 03/26/19 16:39 03/26/19 17:02 Bedside Glucose 227 H 252 H Urine Color YELLOW Urine Clarity SLIGHTLY CLOUDY A Urine pH 5.0 Urine Specific 1.017 [place] Urine Ketones NEGATIVE Urine Nitrite NEGATIVE Urine Bilirubin NEGATIVE Urine NEGATIVE Urobilinogen Urine Leukocyte TRACE A Esterase Urine Microscopic 2 RBC Urine Microscopic 35 H WBC Urine Hemoglobin NEGATIVE Urine Glucose 1+ H Urine Total 3+ H Protein Potassium Level 6.5 *H Test 03/26/19 17:24 03/26/19 20:18 03/27/19 02:37 03/27/19 06:01 Bedside Glucose 248 H 202 305 H White Blood Count 3.4 #L Red Blood Count 2.48 L Hemoglobin 8.2 L Hematocrit 24.8 L Mean Corpuscular 100.0 Volume Mean Corpuscular 33.1 H Hemoglobin Mean Corpuscular 33.1 Hemoglobin Concen t Red Cell 14.3 Distribution Width Platelet Count 231 # Mean Platelet 9.9 Volume Immature 0.300 Granulocytes % Neutrophils % 87.6 H Lymphocytes % 7.4 L Monocytes % 4.7 Eosinophils % 0.0 Basophils % 0.0 Nucleated Red 0.0 Blood Cells % Immature 0.010 Granulocytes # Neutrophils # 3.0 Lymphocytes # 0.3 L Monocytes # 0.2 L Eosinophils # 0.0 Basophils # 0.0 Nucleated Red 0.0 Blood Cells # Sodium Level 132 L Potassium Level 6.3 *H Chloride Level 106 Carbon Dioxide 19 L Level Anion Gap 7 Blood Urea 91 H Nitrogen Creatinine 3.99 H Est Glomerular 16 L Filtrat Rate mL/min Glucose Level 171 Calcium Level 9.3 Test 03/27/19 08:18 Bedside Glucose 237 H Medications Medication Current Medications IV Flush (NS 3 ml) 3 ml PER PROTOCOL IV ; Start 03/16/19 at 17:30 Ondansetron HCl (Zofran Inj) 4 mg Q6H PRN IV NAUSEA/VOMITING Last administered on 03/26/19at 05:58; Admin Dose 4 MG; Start 03/16/19 at 17:30 Aspirin (Aspirin) 81 mg DAILY PO Last administered on 03/26/19at 11:37; Admin Dose 81 MG; Start 03/17/19 at 09:00 Nitroglycerin (Nitroglycerin (Sl Tab) 0.4 Mg) 1 tab Q5M PRN SL .CHEST PAIN; Start 03/16/19 at 17:30 Acetaminophen (Tylenol Tab) 650 mg Q6H PRN PO .PAIN 1-3 OR TEMP; Start 03/16/19 at 17:30 Morphine Sulfate (morphine) 2 mg Q4H PRN IV .PAIN 7-10 Last administered on 03/26/19at 13:25; Admin Dose 2 MG; Start 03/16/19 at 17:30 Zolpidem Tartrate (Ambien) 5 mg QHS PRN PO .INSOMNIA Last administered on 03/18/19at 00:00; Admin Dose 5 MG; Start 03/16/19 at 17:30 Docusate Sodium (Colace) 100 mg Q12H PO Last administered on 03/27/19at 05:25; Admin Dose 100 MG; Start 03/16/19 at 17:30 Bisacodyl (Dulcolax) 5 mg DAILY PRN PO .CONSTIPATION; Start 03/16/19 at 17:30 Miscellaneous Information 1 ea NOTE XX ; Start 03/16/19 at 18:00 Glucose (Glutose) 15 gm Q15M PRN PO DECREASED GLUCOSE; Start 03/16/19 at 18:00 Glucose (Glutose) 22.5 gm Q15M PRN PO DECREASED GLUCOSE; Start 03/16/19 at 18:00 Dextrose (D50w Syringe) 25 ml Q15M PRN IV DECREASED GLUCOSE; Start 03/16/19 at 18:00 Dextrose (D50w Syringe) 50 ml Q15M PRN IV DECREASED GLUCOSE; Start 03/16/19 at 18:00 Glucagon (Glucagen) 1 mg Q15M PRN IM DECREASED GLUCOSE; Start 03/16/19 at 18:00 Glucose (Glutose) 15 gm Q15M PRN BUCCAL DECREASED GLUCOSE; Start 03/16/19 at 18:00 Pantoprazole (Protonix Tab) 40 mg DAILY@06 PO Last administered on 03/27/19at 05:25; Admin Dose 40 MG; Start 03/17/19 at 06:00 Tacrolimus (Prograf) 2 mg AM PO Last administered on 03/26/19 11:37; Admin Dose 2 MG; Start 03/18/19 at 09:00 Mycophenolate Sodium (Myfortic) 180 mg Q12 PO Last administered on 03/26/19 20:20; Admin Dose 180 MG; Start 03/17/19 at 21:00 Diagnostic Test (Pha) (Accu-Chek) 1 ea 02 XX Last administered on 03/27/19 02:48; Admin Dose 1 EA; Start 03/18/19 at 02:00 Guaifenesin/ Dextromethorphan (Robitussin Dm Liquid Cup) 10 ml Q4H PRN PO COUGH; Start 03/18/19 at 14:30 Hydralazine HCl (Apresoline) 10 mg Q4H PRN IV ELEVATED BLOOD PRESSURE Last administered on 03/26/19 03:56; Admin Dose 10 MG; Start 03/18/19 at 15:30 Metoclopramide HCl (Reglan) 5 mg TID PO Last administered on 03/26/19 20:20; Admin Dose 5 MG; Start 03/18/19 at 17:00 Simethicone (Mylicon) 80 mg Q6H PRN PO DISTENSION/GAS/BLOATING Last administered on 03/26/19 04:34; Admin Dose 80 MG; Start 03/18/19 at 17:30 Insulin Aspart (Novolog Insulin Pen) NOVOLOG *MODERATE* ALGORITHM WITH MEALS BEDTIME SC Last administered on 03/27/19 08:54; Admin Dose 6 UNIT; Start 03/18/19 at 21:00 Sodium Bicarbonate (Sodium Bicarbonate Tab) 650 mg BID PO Last administered on 03/26/19 20:20; Admin Dose 650 MG; Start 03/19/19 at 14:00 Ergocalciferol (Drisdol) 50,000 unit [place]@09 PO Last administered on 03/21/19 09:54; Admin Dose 50,000 UNIT; Start 03/21/19 at 09:00 Acetaminophen/ Hydrocodone Bitart ([place] (5/325)) 2 tab Q4H PRN PO MODERATE to sever 5-10 Last administered on 03/27/19 06:13; Admin Dose 2 TAB; Start 03/20/19 at 22:30 Albuterol/ Ipratropium (Duoneb) 3 ml Q4H RESP THERAPY PRN HHN SHORTNESS OF [place] TH; Start 03/23/19 at 04:00 Albuterol/ Ipratropium (Duoneb) 3 ml Q6HWA RESP THERAPY HHN Last administered on 03/25/19 19:37; Admin Dose 3 ML; Start 03/23/19 at 20:00 Insulin Glargine (Lantus) 10 units DAILY@2000 SC Last administered on 03/26/19 20:33; Admin Dose 10 UNITS; Start 03/24/19 at 20:00 Methylprednisolone Sodium Succinate (Solu-Medrol) 40 mg Q8 IV Last administered on 03/27/19 05:25; Admin Dose 40 MG; Start 03/25/19 at 14:00 Levofloxacin (Levaquin) 250 mg Q48H PO Last administered on 03/25/19at 12:31; Admin Dose 250 MG; Start 03/25/19 at 10:00 Tacrolimus (Prograf) 1 mg HS PO Last administered on 03/26/19at 20:20; Admin Dose 1 MG; Start 03/26/19 at 21:00 Dextrose (D50w Syringe) ONCE PRN IV DECREASED GLUCOSE; Start 03/26/19 at 16:30; Stop 03/27/19 at 16:29 Insulin Human NPH (Humulin N) 5 unit TID SC Last administered on 03/26/19 20:33; Admin Dose 5 UNIT; Start 03/26/19 at 21:00 GENNARO GAO March 27, 2019 08:58
[2019-03-27] MEDS: NA BICARBONATE 650 MG TAB PO SCH ×2 (09:05→22:45)
[2019-03-27] MEDS: MYCOPHENOLATE (SR) 180 MG TAB PO SCH ×2 (09:06→22:45)
[2019-03-27] MEDS: TACROLIMUS 1 MG CAP PO SCH ×2 (09:06→22:45)
[2019-03-27] MEDS: METOCLOPRAMIDE 5 MG TAB PO SCH ×3 (09:06→22:45)
[2019-03-27] MEDS: BALSAM PERU/CASTOR OIL 60 GM TUBE TOP SCH (09:06)
[2019-03-27] MEDS: ASPIRIN 81 MG TAB PO SCH (09:06)
--- NOTE | 2019-03-27 09:53 | CONS ---
Assessment/Plan Assessment/Plan Assessment/Plan (Daily) Assessment and recommendations; 1. patient admitted with acute bronchitis with severe wheezing with marked overall clinical improvement. 2. History of chronic renal failure, status post cadaveric transplant few years ago maintained on chronic immunosuppression. Discontinue Solu-Medrol. Start prednisone 20 mg daily with further tapering down to maintenance dose in 24 to 48 hours. Continue Levaquin orally for now. Consultation Date/Type/Reason Admit Date/Time March 17, 2019 at 13:23 Initial Consult Date 03/25/19 Type of Consult Pulmonary Patient is a 58-year-old male who was admitted on the of this month with complaints of abdominal pain upon evaluation patient was diagnosed with hyperkalemia and has been treated since then however over the last 2 or 3 days patient is now having increasing coughing wheezing and production of green sputum. Patient denies any chest pain, hemoptysis any fever or chills. Past medical history; 1. History of renal failure, status post cadaveric transplant in 2009 maintained on chronic immunosuppression. 2. History of HCV infection. 3. Chronic anemia. 4. History of osteo-mellitus. 5. History of endocarditis status post treatment. Medications; reviewed. Allergies; none. Social history; most of any smoking alcohol abuse. Family history; noncontributory. Occupational history; patient is on disability. Review of systems; denies any headache, seizures, visual changes. Any chest pain, complains of cough with wheezing as well as green sputum production. Denies any further abdominal pain. Any nausea vomiting. Melena or hematochezia. Any weight loss. Any joint symptoms. General exam; middle-aged male, awake alert, currently no distress. Requesting Provider: LUPE KAPLAN MD Date/Time of Note DATE: 03/27/19 TIME: 09:52 24 HR Interval Summary Free Text/Dictation Patient's condition is stable. There is marked reduction in wheezing as well as coughing and sputum production. General exam; middle-aged male, awake alert, currently in no distress. Exam/Review of Systems Exam Vitals Vital Signs Date Temp Pulse Resp B/P (MAP) Pulse Ox O2 O2 Flow FiO2 Time Delivery Rate 03/27/19 97.9 76 22 132/92 96 Room Air 07:18 (105) 03/27/19 2.0 03:58 03/24/19 28 21:46 Intake and Output 5/24/19 5/24/19 5/25/19 1515:00 23:00 07:00 IntakeIntake Total 900 ml 800 ml OutputOutput Total 1000 ml 700 ml BalanceBalance -100 ml 100 ml Exam H EENT exam; supple neck, no JVD. No lymphadenopathy. Midline trachea. No thyromegaly. Patient has fair dentition. No neck masses. Chest exam; clear to auscultation. S1-S2 audible, no murmurs. Regular rhythm. Abdomen exam; soft, nontender. No organomegaly. Bowel sounds are audible. Extremity exam; no peripheral edema clubbing. Patient has a patchy ecchymosis. There is generalized muscular loss involving the body. [employer] exam; no focal deficit. Results Result Diagram: 03/27/19 0601 03/27/19 0601 Results 24hrs Laboratory Tests Test 03/26/19 11:29 03/26/19 15:00 03/26/19 16:39 03/26/19 17:02 Bedside Glucose 227 H 252 H Urine Color YELLOW Urine Clarity SLIGHTLY CLOUDY A Urine pH 5.0 Urine Specific 1.017 [place] Urine Ketones NEGATIVE Urine Nitrite NEGATIVE Urine Bilirubin NEGATIVE Urine NEGATIVE Urobilinogen Urine Leukocyte TRACE A Esterase Urine Microscopic 2 RBC Urine Microscopic 35 H WBC Urine Hemoglobin NEGATIVE Urine Glucose 1+ H Urine Total 3+ H Protein Potassium Level 6.5 *H Test 03/26/19 17:24 03/26/19 20:18 03/27/19 02:37 03/27/19 06:01 Bedside Glucose 248 H 202 305 H White Blood Count 3.4 #L Red Blood Count 2.48 L Hemoglobin 8.2 L Hematocrit 24.8 L Mean Corpuscular 100.0 Volume Mean Corpuscular 33.1 H Hemoglobin Mean Corpuscular 33.1 Hemoglobin Concen t Red Cell 14.3 Distribution Width Platelet Count 231 # Mean Platelet 9.9 Volume Immature 0.300 Granulocytes % Neutrophils % 87.6 H Lymphocytes % 7.4 L Monocytes % 4.7 Eosinophils % 0.0 Basophils % 0.0 Nucleated Red 0.0 Blood Cells % Immature 0.010 Granulocytes # Neutrophils # 3.0 Lymphocytes # 0.3 L Monocytes # 0.2 L Eosinophils # 0.0 Basophils # 0.0 Nucleated Red 0.0 Blood Cells # Sodium Level 132 L Potassium Level 6.3 *H Chloride Level 106 Carbon Dioxide 19 L Level Anion Gap 7 Blood Urea 91 H Nitrogen Creatinine 3.99 H Est Glomerular 16 L Filtrat Rate mL/min Glucose Level 171 Calcium Level 9.3 Test 03/27/19 08:18 Bedside Glucose 237 H Medications Medication Current Medications IV Flush (NS 3 ml) 3 ml PER PROTOCOL IV ; Start 03/16/19 at 17:30 Ondansetron HCl (Zofran Inj) 4 mg Q6H PRN IV NAUSEA/VOMITING Last administered on 03/26/19at 05:58; Admin Dose 4 MG; Start 03/16/19 at 17:30 Aspirin (Aspirin) 81 mg DAILY PO Last administered on 03/27/19at 09:06; Admin Dose 81 MG; Start 03/17/19 at 09:00 Nitroglycerin (Nitroglycerin (Sl Tab) 0.4 Mg) 1 tab Q5M PRN SL .CHEST PAIN; Start 03/16/19 at 17:30 Acetaminophen (Tylenol Tab) 650 mg Q6H PRN PO .PAIN 1-3 OR TEMP; Start 03/16/19 at 17:30 Morphine Sulfate (morphine) 2 mg Q4H PRN IV .PAIN 7-10 Last administered on 03/26/19at 13:25; Admin Dose 2 MG; Start 03/16/19 at 17:30 Zolpidem Tartrate (Ambien) 5 mg QHS PRN PO .INSOMNIA Last administered on 03/18/19at 00:00; Admin Dose 5 MG; Start 03/16/19 at 17:30 Docusate Sodium (Colace) 100 mg Q12H PO Last administered on 03/27/19at 05:25; Admin Dose 100 MG; Start 03/16/19 at 17:30 Bisacodyl (Dulcolax) 5 mg DAILY PRN PO .CONSTIPATION; Start 03/16/19 at 17:30 Miscellaneous Information 1 ea NOTE XX ; Start 03/16/19 at 18:00 Glucose (Glutose) 15 gm Q15M PRN PO DECREASED GLUCOSE; Start 03/16/19 at 18:00 Glucose (Glutose) 22.5 gm Q15M PRN PO DECREASED GLUCOSE; Start 03/16/19 at 18:00 Dextrose (D50w Syringe) 25 ml Q15M PRN IV DECREASED GLUCOSE; Start 03/16/19 at 18:00 Dextrose (D50w Syringe) 50 ml Q15M PRN IV DECREASED GLUCOSE; Start 03/16/19 at 18:00 Glucagon (Glucagen) 1 mg Q15M PRN IM DECREASED GLUCOSE; Start 03/16/19 at 18:00 Glucose (Glutose) 15 gm Q15M PRN BUCCAL DECREASED GLUCOSE; Start 03/16/19 at 18:00 Pantoprazole (Protonix Tab) 40 mg DAILY@06 PO Last administered on 03/27/19 05:25; Admin Dose 40 MG; Start 03/17/19 at 06:00 Tacrolimus (Prograf) 2 mg AM PO Last administered on 03/27/19 09:06; Admin Dose 2 MG; Start 03/18/19 at 09:00 Mycophenolate Sodium (Myfortic) 180 mg Q12 PO Last administered on 03/27/19 09:06; Admin Dose 180 MG; Start 03/17/19 at 21:00 Diagnostic Test (Pha) (Accu-Chek) 1 ea 02 XX Last administered on 03/27/19 02:48; Admin Dose 1 EA; Start 03/18/19 at 02:00 Guaifenesin/ Dextromethorphan (Robitussin Dm Liquid Cup) 10 ml Q4H PRN PO COUGH; Start 03/18/19 at 14:30 Hydralazine HCl (Apresoline) 10 mg Q4H PRN IV ELEVATED BLOOD PRESSURE Last administered on 03/26/19 03:56; Admin Dose 10 MG; Start 03/18/19 at 15:30 Metoclopramide HCl (Reglan) 5 mg TID PO Last administered on 03/27/19 09:06; Admin Dose 5 MG; Start 03/18/19 at 17:00 Simethicone (Mylicon) 80 mg Q6H PRN PO DISTENSION/GAS/BLOATING Last administered on 03/26/19 04:34; Admin Dose 80 MG; Start 03/18/19 at 17:30 Insulin Aspart (Novolog Insulin Pen) NOVOLOG *MODERATE* ALGORITHM WITH MEALS BEDTIME SC Last administered on 03/27/19 08:54; Admin Dose 6 UNIT; Start 03/18/19 at 21:00 Sodium Bicarbonate (Sodium Bicarbonate Tab) 650 mg BID PO Last administered on 03/27/19 09:05; Admin Dose 650 MG; Start 03/19/19 at 14:00 Ergocalciferol (Drisdol) 50,000 unit [place]@09 PO Last administered on 03/21/19 09:54; Admin Dose 50,000 UNIT; Start 03/21/19 at 09:00 Acetaminophen/ Hydrocodone Bitart ([place] (5/325)) 2 tab Q4H PRN PO MODERATE to sever 5-10 Last administered on 03/27/19 09:05; Admin Dose 2 TAB; Start 03/20/19 at 22:30 Albuterol/ Ipratropium (Duoneb) 3 ml Q4H RESP THERAPY PRN HHN SHORTNESS OF BREATH; Start 03/23/19 at 04:00 Albuterol/ Ipratropium (Duoneb) 3 ml Q6HWA RESP THERAPY HHN Last administered on 03/25/19 19:37; Admin Dose 3 ML; Start 03/23/19 at 20:00 Insulin Glargine (Lantus) 10 units DAILY@2000 SC Last administered on 03/26/19 20:33; Admin Dose 10 UNITS; Start 03/24/19 at 20:00 Methylprednisolone Sodium Succinate (Solu-Medrol) 40 mg Q8 IV Last administered on 03/27/19 05:25; Admin Dose 40 MG; Start 03/25/19 at 14:00 Levofloxacin (Levaquin) 250 mg Q48H PO Last administered on 03/25/19 12:31; Admin Dose 250 MG; Start 03/25/19 at 10:00 Tacrolimus (Prograf) 1 mg HS PO Last administered on 03/26/19 20:20; Admin Dose 1 MG; Start 03/26/19 at 21:00 Dextrose (D50w Syringe) ONCE PRN IV DECREASED GLUCOSE; Start 03/26/19 at 16:30; Stop 03/27/19 at 16:29 Insulin Human NPH (Humulin N) 5 unit TID SC Last administered on 03/27/19 08:58; Admin Dose 5 UNIT; Start 03/26/19 at 21:00 CATINA HAQ March 27, 2019 09:53
[2019-03-27] MEDS: LEVOFLOXACIN 250 MG TAB PO SCH (10:58)
[2019-03-27] MEDS: predniSONE 20 MG TAB PO SCH (11:01)
[2019-03-27] MEDS ORDERED: INSULIN REGULAR, HUMAN 100 UNIT/1 ML 3ML VIAL IVP STA (12:00)
[2019-03-27] MEDS: SODIUM POLYSTYRENE 15 GM KIT (POWDER + SORBITOL) PO SCH ×2 (12:30→12:47)
--- NOTE | 2019-03-27 12:42 | CONS ---
Assessment/Plan Assessment/Plan Hospital Course (Demo Recall) 1. ARF 1. ARF 2. SOB w/u in progress - 03/24/19 CT Chest Nodular consolidation in the left lowe r lobe is in keeping with bronchopneumonia and there is also multifocal bronchiolitis greatest in the left greater than right lower lobes that is likely also infectious. 3. Possible uti but seems less likely PMH as of last admit: - Anasarca, improved with IV Lasix - Endocarditis - Dr. Olmstead rec'd call from [facility] 01/15/19 regarding this and plan was to complete cefazolin through 01.29.19 - Completing Augmentin for progressive swelling of distal aspect of right ring finger with x-ray showing further of erosion and lucency involving the distal aspect of the distal phalanx of the right ring finger suspicious for osteomyelitis with improved but slight associated soft tissue swelling. ESR 67. - Hx OM of R 4th digit: swelling with new erosive changes and osteopenia of the underlying R 4th distal phalanx, suggestive of osteomyelitis; wound culture grew Serratia on 03/18/18 and Serratia + CoNS (likely colonizer) on 04/04/18 ; Pt declined amputation. ESR 39 on 03/18/2018. S/p Levaquin x 6 weeks, ESR 60 01/13/19 - Hematoma within the right lateral abdominal wall musculature which has developed since the previous study done 12/13/2018 measuring 7.3 x 4.6 cm in cross diameter and extending an acrylic that dimension approximately 10.7 cm from the level of the superior pole of the [place] right kidney to just inferior to the right iliac crest per CT 01/12/19 - Calcification of the vas deferens with a persistent hydrocele within the scrotum per CT 01/12/19 - Bacteremia d/t MSSA 12/09/2018, repeat blood cx 12/12/18 NGTD - MRSA and K. pneumoniae in urine cx 12/09/2018 - UA was neg for pyuria - Hx mild subtle increased activity within the upper aspect of LUE, nonspecific, on WBC tagged scan on 04/05/2018 - Hx OM of R 3rd fingertip (XR showed periosteal reaction at the tip of R 3rd distal phalanx, suspicious for OM, MRI showed cellulitis of distal R 4th phalanx, without OM) and L 2nd fingertip (XR showed cortical irregularity at the tuft of L 2nd distal phalanx with overlying soft tissue defect, suggesting early OM, MRI showed OM at L 2nd distal phalanx with, cellulitis about L 2nd distal phalanx without drainable fluid collection.) - Hx OM of R 2nd finger s/p amputation at proximal phalanx neck, and h/o OM of L 3rd finger s/p amputation at middle and distal phalanges - Acute on chronic renal failure - Hyperkalemia with metabolic acidosis - slowly improving with sodium bicarb - Hx ESRD, was on HD - S/p renal transplant in 2009 (on tacrolimus, mycophenolate and prednisone), chronic renal insufficiency at baseline - DM - Hgb A1c 10.5% - Hx Juan's esophagus and gastritis s/p EGD on 08/12/2017. No H. pylori on Bx - BLE atherosclerosis - Seen by Vascular Surgery during last admit - Onychomycosis, tinea pedis - Seen by Inventory Analyst during last admit - Rheumatoid arthritis - Chronic HCV infection - HTN - Dyslipidemia - Hx polysubstance and IV drug use. 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 psychosis - on Lexapro - Abdominal distention and pain Recommendation: - cocci, crypto, hiv screen - Complete 5 -7 days Levaquin orally (03/25/19 - ); consider checking procalc near proposed stop time I personally directed care to canvas cutter hand yesterday via tele[employer] Mobile messaging Consultation Date/Type/Reason Admit Date/Time March 17, 2019 at 13:23 Initial Consult Date Type of Consult ID Requesting Provider: LUPE KAPLAN MD Date/Time of Note DATE: 03/27/19 TIME: 12:40 24 HR Interval Summary Free Text/Dictation resp cx was normal nina Exam/Review of Systems Exam Vitals Vital Signs Date Temp Pulse Resp B/P (MAP) Pulse Ox O2 O2 Flow FiO2 Time Delivery Rate 03/27/19 97.6 69 22 122/56 96 Room Air 3.0 11:19 (78) 03/24/19 28 21:46 Intake and Output 03/26/19 03/26/19 03/27/19 1515:00 23:00 07:00 IntakeIntake Total 900 ml 800 ml OutputOutput Total 1000 ml 700 ml BalanceBalance -100 ml 100 ml Constitutional: alert, oriented, well developed Psych: no complaints, nl mood/affect Head: normocephalic, atraumatic Eyes: nl conjunctiva, EOMI, nl lids, nl sclera, PERRL Respiratory: clear to auscultation, normal air movement Gastrointestinal: soft, nl liver, spleen, non-tender Musculoskeletal: nl extremities to inspection, nl gait and stance 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: PIPE LINE INSPECTOR II-XII intact, nl mental status, nl speech, nl strength Results Result Diagram: 03/27/19 0603/27/19 06 Results 24hrs Laboratory Tests Test 03/26/19 15:00 03/26/19 16:39 03/26/19 17:02 03/26/19 17:24 Urine Color YELLOW Urine Clarity SLIGHTLY CLOUDY A Urine pH 5.0 Urine Specific 1.017 [place] Urine Ketones NEGATIVE Urine Nitrite NEGATIVE Urine Bilirubin NEGATIVE Urine NEGATIVE Urobilinogen Urine Leukocyte TRACE A Esterase Urine Microscopic 2 RBC Urine Microscopic 35 H WBC Urine Hemoglobin NEGATIVE Urine Glucose 1+ H Urine Total 3+ H Protein Potassium Level 6.5 *H Bedside Glucose 252 H 248 H Test 03/26/19 20:18 03/27/19 02:37 03/27/19 06:01 03/27/19 08:18 Bedside Glucose 202 305 H 237 H White Blood Count 3.4 #L Red Blood Count 2.48 L Hemoglobin 8.2 L Hematocrit 24.8 L Mean Corpuscular 100.0 Volume Mean Corpuscular 33.1 H Hemoglobin Mean Corpuscular 33.1 Hemoglobin Concen t Red Cell 14.3 Distribution Width Platelet Count 231 # Mean Platelet 9.9 Volume Immature 0.300 Granulocytes % Neutrophils % 87.6 H Lymphocytes % 7.4 L Monocytes % 4.7 Eosinophils % 0.0 Basophils % 0.0 Nucleated Red 0.0 Blood Cells % Immature 0.010 Granulocytes # Neutrophils # 3.0 Lymphocytes # 0.3 L Monocytes # 0.2 L Eosinophils # 0.0 Basophils # 0.0 Nucleated Red 0.0 Blood Cells # Sodium Level 132 L Potassium Level 6.3 *H Chloride Level 106 Carbon Dioxide 19 L Level Anion Gap 7 Blood Urea 91 H Nitrogen Creatinine 3.99 H Est Glomerular 16 L Filtrat Rate mL/min Glucose Level 171 Calcium Level 9.3 Medications Medication Current Medications IV Flush (NS 3 ml) 3 ml PER PROTOCOL IV ; Start 03/16/19 at 17:30 Ondansetron HCl (Zofran Inj) 4 mg Q6H PRN IV NAUSEA/VOMITING Last administered on 03/26/19at 05:58; Admin Dose 4 MG; Start 03/16/19 at 17:30 Aspirin (Aspirin) 81 mg DAILY PO Last administered on 03/27/19at 09:06; Admin Dose 81 MG; Start 03/17/19 at 09:00 Nitroglycerin (Nitroglycerin (Sl Tab) 0.4 Mg) 1 tab Q5M PRN SL .CHEST PAIN; Start 03/16/19 at 17:30 Acetaminophen (Tylenol Tab) 650 mg Q6H PRN PO .PAIN 1-3 OR TEMP; Start 03/16/19 at 17:30 Morphine Sulfate (morphine) 2 mg Q4H PRN IV .PAIN 7-10 Last administered on 03/26/19at 13:25; Admin Dose 2 MG; Start 03/16/19 at 17:30 Zolpidem Tartrate (Ambien) 5 mg QHS PRN PO .INSOMNIA Last administered on 03/18/19at 00:00; Admin Dose 5 MG; Start 03/16/19 at 17:30 Docusate Sodium (Colace) 100 mg Q12H PO Last administered on 03/27/19at 05:25; Admin Dose 100 MG; Start 03/16/19 at 17:30 Bisacodyl (Dulcolax) 5 mg DAILY PRN PO .CONSTIPATION; Start 03/16/19 at 17:30 Miscellaneous Information 1 ea NOTE XX ; Start 03/16/19 at 18:00 Glucose (Glutose) 15 gm Q15M PRN PO DECREASED GLUCOSE; Start 03/16/19 at 18:00 Glucose (Glutose) 22.5 gm Q15M PRN PO DECREASED GLUCOSE; Start 03/16/19 at 18:00 Dextrose (D50w Syringe) 25 ml Q15M PRN IV DECREASED GLUCOSE; Start 03/16/19 at 18:00 Dextrose (D50w Syringe) 50 ml Q15M PRN IV DECREASED GLUCOSE; Start 03/16/19 at 18:00 Glucagon (Glucagen) 1 mg Q15M PRN IM DECREASED GLUCOSE; Start 03/16/19 at 18:00 Glucose (Glutose) 15 gm Q15M PRN BUCCAL DECREASED GLUCOSE; Start 03/16/19 at 18:00 Pantoprazole (Protonix Tab) 40 mg DAILY@06 PO Last administered on 03/27/19 05:25; Admin Dose 40 MG; Start 03/17/19 at 06:00 Tacrolimus (Prograf) 2 mg AM PO Last administered on 03/27/19 09:06; Admin Dose 2 MG; Start 03/18/19 at 09:00 Mycophenolate Sodium (Myfortic) 180 mg Q12 PO Last administered on 03/27/19 09:06; Admin Dose 180 MG; Start 03/17/19 at 21:00 Diagnostic Test (Pha) (Accu-Chek) 1 ea 02 XX Last administered on 03/27/19 02:48; Admin Dose 1 EA; Start 03/18/19 at 02:00 Guaifenesin/ Dextromethorphan (Robitussin Dm Liquid Cup) 10 ml Q4H PRN PO COUGH; Start 03/18/19 at 14:30 Hydralazine HCl (Apresoline) 10 mg Q4H PRN IV ELEVATED BLOOD PRESSURE Last administered on 03/26/19 03:56; Admin Dose 10 MG; Start 03/18/19 at 15:30 Metoclopramide HCl (Reglan) 5 mg TID PO Last administered on 03/27/19 09:06; Admin Dose 5 MG; Start 03/18/19 at 17:00 Simethicone (Mylicon) 80 mg Q6H PRN PO DISTENSION/GAS/BLOATING Last administered on 03/26/19 04:34; Admin Dose 80 MG; Start 03/18/19 at 17:30 Insulin Aspart (Novolog Insulin Pen) NOVOLOG *MODERATE* ALGORITHM WITH MEALS BEDTIME SC Last administered on 03/27/19 08:54; Admin Dose 6 UNIT; Start 03/18/19 at 21:00 Sodium Bicarbonate (Sodium Bicarbonate Tab) 650 mg BID PO Last administered on 03/27/19 09:05; Admin Dose 650 MG; Start 03/19/19 at 14:00 Ergocalciferol (Drisdol) 50,000 unit [place]@09 PO Last administered on 03/21/19 09:54; Admin Dose 50,000 UNIT; Start 03/21/19 at 09:00 Acetaminophen/ Hydrocodone Bitart ([place] (5/325)) 2 tab Q4H PRN PO MODERATE to sever 5-10 Last administered on 03/27/19 09:05; Admin Dose 2 TAB; Start 03/03 06/21 at 22:30 Albuterol/ Ipratropium (Duoneb) 3 ml Q4H RESP THERAPY PRN HHN SHORTNESS OF BREATH; Start 03/23/19 at 04:00 Albuterol/ Ipratropium (Duoneb) 3 ml Q6HWA RESP THERAPY HHN Last administered on 03/25/19 19:37; Admin Dose 3 ML; Start 03/23/19 at 20:00 Insulin Glargine (Lantus) 10 units DAILY@2000 SC Last administered on 03/26/19 20:33; Admin Dose 10 UNITS; Start 03/24/19 at 20:00 Levofloxacin (Levaquin) 250 mg Q48H PO Last administered on 03/27/19 10:58; Admin Dose 250 MG; Start 03/25/19 at 10:00 Tacrolimus (Prograf) 1 mg HS PO Last administered on 03/26/19 20:20; Admin Dose 1 MG; Start 03/26/19 at 21:00 Dextrose (D50w Syringe) ONCE PRN IV DECREASED GLUCOSE; Start 03/26/19 at 16:30; Stop 03/27/19 at 16:29 Insulin Human NPH (Humulin N) 5 unit TID SC Last administered on 03/27/19 08:58; Admin Dose 5 UNIT; Start 03/26/19 at 21:00 Prednisone (Prednisone) 20 mg DAILY PO Last administered on 03/27/19 11:01; Admin Dose 20 MG; Start 03/27/19 at 10:00 Sodium Polystyrene Sulfonate (Kayexelate 15 Gm Kit (Powder+Sorbitol)) 60 gm ONCE PO ; Start 03/27/19 at 12:30; Stop 03/27/19 at 13:00 PARAMJIT OLMSTEAD MD March 27, 2019 12:42
[2019-03-27] MEDS ORDERED: MANNITOL 25% 50 ML INJ IV* ONE (13:00)
[2019-03-27] MEDS ORDERED: ALBUMIN HUMAN 25% 100 ML IV SCH (13:00)
[2019-03-27] MEDS ORDERED: HEPARIN 1000 UNITS/ML 10 ML INJ CATHETER ONE (13:00)
[2019-03-27] MEDS ORDERED: LORAZEPAM 2 MG INJ IV ONE (13:00)
[2019-03-27] MEDS: morphine 2 MG INJ IV PRN ×3 (17:02→21:35)
[2019-03-27] MEDS ORDERED: morphine 2 MG INJ IV ONE (18:30)
[2019-03-27] MEDS ORDERED: INSULIN REGULAR, HUMAN 100 UNIT/1 ML 3ML VIAL IV STA (18:53)
[2019-03-27] MEDS ORDERED: INSULIN REGULAR, HUMAN 100 UNIT/1 ML 3ML VIAL SC STA (19:03)
[2019-03-27] MEDS: INSULIN GLARGINE [LANTus] (100 UNITS/ML) SYG SC SCH (20:04)
--- NOTE | 2019-03-27 21:11 | PN ---
Date/Time of Note Date/Time of Note DATE: 03/27/19 TIME: 21:10 Assessment/Plan VTE Prophylaxis Risk score (from [facility]0 risk: 1 SCD applied (from [facility] [place]): Yes SCD contraindicated: other Pharmacological prophylaxis: other Pharm contraindication: other Lines/Catheters IV C[facility]ter Type (from [facility] Mid Line Central line still needed: Yes Urinary Cath still in place: Yes Reason Cath still needed: urinary retention Assessment/Plan Assessment/Plan 1. Hyperkalemia. The patient is noncompliant, intermittently declines Kayexalate. - sp rt groin ji cath - HD today 2. Acute bronchitis/nodular consolidation. Continue IV steroids and Levaquin. The patient is being seen by Dr. Olmstead from infectious disease standpoint. 3. Acute on chronic renal failure with a history of hepatitis C and a history of renal transplant. The patient is being seen by Dr. Fofana and the patient's creatinine is stable at 3.5 at this time. 4. Diabetes. Blood sugar worse due to steroids. We will add NPH with Solu- Medrol dose. Result Diagram: 03/27/19 0601 03/27/19 1726 Results 24hrs Laboratory Tests Test 03/27/19 02:37 03/27/19 06:01 03/27/19 08:18 03/27/19 12:33 Bedside Glucose 305 H 237 H 138 White Blood Count 3.4 #L Red Blood Count 2.48 L Hemoglobin 8.2 L Hematocrit 24.8 L Mean Corpuscular 100.0 Volume Mean Corpuscular 33.1 H Hemoglobin Mean Corpuscular 33.1 Hemoglobin Concent Red Cell 14.3 Distribution Width Platelet Count 231 # Mean Platelet Volume 9.9 Immature 0.300 Granulocytes % Neutrophils % 87.6 H Lymphocytes % 7.4 L Monocytes % 4.7 Eosinophils % 0.0 Basophils % 0.0 Nucleated Red Blood 0.0 Cells % Immature 0.010 Granulocytes # Neutrophils # 3.0 Lymphocytes # 0.3 L Monocytes # 0.2 L Eosinophils # 0.0 Basophils # 0.0 Nucleated Red Blood 0.0 Cells # Sodium Level 132 L Potassium Level 6.3 *H Chloride Level 106 Carbon Dioxide Level 19 L Anion Gap 7 Blood Urea Nitrogen 91 H Creatinine 3.99 H Est Glomerular 16 L Filtrat Rate mL/min Glucose Level 171 Calcium Level 9.3 Test 03/27/19 17:26 03/27/19 17:34 03/27/19 19:57 Potassium Level 6.4 *H Bedside Glucose 187 148 Subjective 24 Hr Interval Summary Free Text/Dictation -nad - afebrile -Hyperkalemia. The patient is noncompliant, intermittently declines Kayexalate; sp rt grojeanne workman cath - HD today - no events reported overnight dw staff Eyes: no complaints ENT: no complaints Respiratory: no complaints Cardiovascular: no complaints Gastrointestinal: no complaints Genitourinary: no complaints Musculoskeletal: other (general weakness) Skin: no complaints Psychological: no complaints Exam/Review of Systems Exam Vitals Vital Signs Date Temp Pulse Resp B/P (MAP) Pulse Ox O2 O2 Flow FiO2 Time Delivery Rate 03/27/19 93 20:00 03/27/19 98.0 20 123/57 97 Room Air 19:54 (79) 03/27/19 4.0 13:50 03/24/19 28 21:46 Intake and Output 03/26/19 03/26/19 03/27/19 1515:00 23:00 07:00 IntakeIntake Total 900 ml 800 ml OutputOutput Total 1000 ml 700 ml BalanceBalance -100 ml 100 ml Constitutional: alert, frail Psych: nl mood/affect Head: atraumatic Eyes: nl lids, nl sclera ENMT: nl external ears & nose Neck: non-tender Respiratory: clear to auscultation Cardiovascular: nl pulses, other (s1s2) Gastrointestinal: soft, non-tender Musculoskeletal: muscle weakness Extremities: normal pulses 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: nl mental status, nl speech Results Results 24hrs Laboratory Tests Test 03/27/19 02:37 03/27/19 06:01 03/27/19 08:18 03/27/19 12:33 Bedside Glucose 305 H 237 H 138 White Blood Count 3.4 #L Red Blood Count 2.48 L Hemoglobin 8.2 L Hematocrit 24.8 L Mean Corpuscular 100.0 Volume Mean Corpuscular 33.1 H Hemoglobin Mean Corpuscular 33.1 Hemoglobin Concent Red Cell 14.3 Distribution Width Platelet Count 231 # Mean Platelet Volume 9.9 Immature 0.300 Granulocytes % Neutrophils % 87.6 H Lymphocytes % 7.4 L Monocytes % 4.7 Eosinophils % 0.0 Basophils % 0.0 Nucleated Red Blood 0.0 Cells % Immature 0.010 Granulocytes # Neutrophils # 3.0 Lymphocytes # 0.3 L Monocytes # 0.2 L Eosinophils # 0.0 Basophils # 0.0 Nucleated Red Blood 0.0 Cells # Sodium Level 132 L Potassium Level 6.3 *H Chloride Level 106 Carbon Dioxide Level 19 L Anion Gap 7 Blood Urea Nitrogen 91 H Creatinine 3.99 H Est Glomerular 16 L Filtrat Rate mL/min Glucose Level 171 Calcium Level 9.3 Test 03/27/19 17:26 03/27/19 17:34 03/27/19 19:57 Potassium Level 6.4 *H Bedside Glucose 187 148 Medications Medication Current Medications IV Flush (NS 3 ml) 3 ml PER PROTOCOL IV ; Start 03/16/19 at 17:30 Ondansetron HCl (Zofran Inj) 4 mg Q6H PRN IV NAUSEA/VOMITING Last administered on 03/26/19at 05:58; Admin Dose 4 MG; Start 03/16/19 at 17:30 Aspirin (Aspirin) 81 mg DAILY PO Last administered on 03/27/19at 09:06; Admin Dose 81 MG; Start 03/17/19 at 09:00 Nitroglycerin (Nitroglycerin (Sl Tab) 0.4 Mg) 1 tab Q5M PRN SL .CHEST PAIN; Start 03/16/19 at 17:30 Acetaminophen (Tylenol Tab) 650 mg Q6H PRN PO .PAIN 1-3 OR TEMP; Start 03/16/19 at 17:30 Morphine Sulfate (morphine) 2 mg Q4H PRN IV .PAIN 7-10 Last administered on 03/27/19at 17:02; Admin Dose 2 MG; Start 03/16/19 at 17:30 Zolpidem Tartrate (Ambien) 5 mg QHS PRN PO .INSOMNIA Last administered on 03/18/19at 00:00; Admin Dose 5 MG; Start 03/16/19 at 17:30 Docusate Sodium (Colace) 100 mg Q12H PO Last administered on 03/27/19at 16:46; Admin Dose 100 MG; Start 03/16/19 at 17:30 Bisacodyl (Dulcolax) 5 mg DAILY PRN PO .CONSTIPATION; Start 03/16/19 at 17:30 Miscellaneous Information 1 ea NOTE XX ; Start 03/16/19 at 18:00 Glucose (Glutose) 15 gm Q15M PRN PO DECREASED GLUCOSE; Start 03/16/19 at 18:00 Glucose (Glutose) 22.5 gm Q15M PRN PO DECREASED GLUCOSE; Start 03/16/19 at 18:00 Dextrose (D50w Syringe) 25 ml Q15M PRN IV DECREASED GLUCOSE; Start 03/16/19 at 18:00 Dextrose (D50w Syringe) 50 ml Q15M PRN IV DECREASED GLUCOSE; Start 03/16/19 at 18:00 Glucagon (Glucagen) 1 mg Q15M PRN IM DECREASED GLUCOSE; Start 03/16/19 at 18:00 Glucose (Glutose) 15 gm Q15M PRN BUCCAL DECREASED GLUCOSE; Start 03/16/19 at 18:00 Pantoprazole (Protonix Tab) 40 mg DAILY@06 PO Last administered on 03/27/19 05:25; Admin Dose 40 MG; Start 03/17/19 at 06:00 Tacrolimus (Prograf) 2 mg AM PO Last administered on 03/27/19 09:06; Admin Dose 2 MG; Start 03/18/19 at 09:00 Mycophenolate Sodium (Myfortic) 180 mg Q12 PO Last administered on 03/27/19 09:06; Admin Dose 180 MG; Start 03/17/19 at 21:00 Diagnostic Test (Pha) (Accu-Chek) 1 ea 02 XX Last administered on 03/27/19at 02:48; Admin Dose 1 EA; Start 03/18/19 at 02:00 Guaifenesin/ Dextromethorphan (Robitussin Dm Liquid Cup) 10 ml Q4H PRN PO COUGH; Start 03/18/19 at 14:30 Hydralazine HCl (Apresoline) 10 mg Q4H PRN IV ELEVATED BLOOD PRESSURE Last administered on 03/26/19at 03:56; Admin Dose 10 MG; Start 03/18/19 at 15:30 Metoclopramide HCl (Reglan) 5 mg TID PO Last administered on 03/27/19at 16:16; Admin Dose 5 MG; Start 03/18/19 at 17:00 Simethicone (Mylicon) 80 mg Q6H PRN PO DISTENSION/GAS/BLOATING Last administered on 03/26/19at 04:34; Admin Dose 80 MG; Start 03/18/19 at 17:30 Insulin Aspart (Novolog Insulin Pen) NOVOLOG *MODERATE* ALGORITHM WITH MEALS BEDTIME SC Last administered on 03/27/19 17:38; Admin Dose 4 UNIT; Start 03/18/19 at 21:00 Sodium Bicarbonate (Sodium Bicarbonate Tab) 650 mg BID PO Last administered on 03/27/19 09:05; Admin Dose 650 MG; Start 03/19/19 at 14:00 Ergocalciferol (Drisdol) 50,000 unit [place]@09 PO Last administered on 03/21/19 09:54; Admin Dose 50,000 UNIT; Start 03/21/19 at 09:00 Acetaminophen/ Hydrocodone Bitart ([place] (5/325)) 2 tab Q4H PRN PO MODERATE to sever 5-10 Last administered on 03/27/19 19:53; Admin Dose 2 TAB; Start 03/20/19 at 22:30 Albuterol/ Ipratropium (Duoneb) 3 ml Q4H RESP THERAPY PRN HHN SHORTNESS OF BREATH; Start 03/23/19 at 04:00 Albuterol/ Ipratropium (Duoneb) 3 ml Q6HWA RESP THERAPY HHN Last administered on 03/25/19 19:37; Admin Dose 3 ML; Start 03/23/19 at 20:00 Insulin Glargine (Lantus) 10 units DAILY@2000 SC Last administered on 03/27/19 20:04; Admin Dose 10 UNITS; Start 03/24/19 at 20:00 Levofloxacin (Levaquin) 250 mg Q48H PO Last administered on 03/27/19 10:58; Admin Dose 250 MG; Start 03/25/19 at 10:00 Tacrolimus (Prograf) 1 mg HS PO Last administered on 03/26/19 20:20; Admin Dose 1 MG; Start 03/26/19 at 21:00 Insulin Human NPH (Humulin N) 5 unit TID SC Last administered on 03/27/19 12:40; Admin Dose 5 UNIT; Start 03/26/19 at 21:00 Prednisone (Prednisone) 20 mg DAILY PO Last administered on 03/27/19 11:01; Admin Dose 20 MG; Start 03/27/19 at 10:00 EILEEN COBURN March 27, 2019 21:11
--- NOTE | 2019-03-27 21:26 | OPR ---
DATE OF OPERATION: PREOPERATIVE DIAGNOSIS: Renal failure. POSTOPERATIVE DIAGNOSIS: Renal failure. OPERATION PERFORMED: Right femoral hemodialysis catheter placement. ANESTHESIA: Local. CONSENT: Risks, benefits, complications, alternative therapies explained to the patient, consent obt ained. OPERATIVE TECHNIQUE: The patient was placed in supine position, prepped and draped in usual sterile fashion, 1% lidocaine was used throughout the operation for local anesthesia. Access was gained in t he right common femoral vein. Guidewire was advanced through without any difficulty. Subcutaneous t issues were dilated. A 20 cm dialysis catheter advanced over guidewire, secured to skin using silk s utures. Both ports of the catheter were aspirated and injected using saline solution. The patient t olerated procedure well. Dictated By: MO CAMPOS/NAKIA Conf#: [id number] DID#: [id number]
--- NOTE | 2019-03-27 21:33 | CONS ---
DATE OF ADMISSION: 03/17/2019 DATE OF CONSULTATION: REASON FOR CONSULTATION: Evaluation for dialysis access placement. HISTORY OF PRESENT ILLNESS: This is a 57-year-old male with a history of hypertension, hyperlipidemi a, diabetes, end-stage renal disease, hepatitis C, vitamin D deficiency, pneumonia, anemia. The yassine ent was admitted. Patient has had a renal transplant in the past; however, was admitted because of e levation of the BUN and will need dialysis access. PAST MEDICAL HISTORY: Hypertension, hyperlipidemia, hepatitis C, pneumonia, renal failure. PAST SURGICAL HISTORY: Kidney transplant and dialysis access, left arm. ALLERGIES: NONE. SOCIAL HISTORY: No smoking, drinking or drug use. MEDICATIONS: List reviewed. PHYSICAL EXAMINATION: GENERAL: The patient is awake, alert, responds appropriately. VITAL SIGNS: Blood pressure is 116/57, pulse is 79, respirations 18, saturations 96% on room air. CARDIOVASCULAR: Normal S1, S2. LUNGS: Clear. ABDOMEN: Soft. EXTREMITIES: Warm. Multiple scars in the left arm noted. LABORATORY VALUES: Hemoglobin 8.2, white count 3.4, platelet count 231. Normal coagulation factors and potassium 6.3. IMPRESSION: Renal failure. RECOMMENDATIONS: We will proceed with the placement of a dialysis access, which is temporary. The p atient may need a long-term dialysis in the way of a Perm-A-Cath or AV fistula. Discussed with the p atient. All questions answered. Dictated By: MO CAMPOS/NAKIA Conf#: [id number] DID#: [id number]
[2019-03-27] MEDS ORDERED: HEPARIN 1000 UNITS/ML 10 ML INJ ONE (22:04)
[2019-03-27] MEDS ORDERED: DIPHENHYDRAMINE 50 MG INJ IV PRN (23:30)
[2019-03-28] VITALS (8 sets, daily range): BP systolic 116–151; BP diastolic 43–75; PULSE 78–125; RESP 18–22
[2019-03-28] MEDS: ACCU-CHEK XX SCH (02:00)
[2019-03-28] MEDS: morphine 2 MG INJ IV PRN ×5 (02:17→20:28)
[2019-03-28] MEDS: HYDROCODONE/APAP (5/325) TAB PO PRN ×3 (03:41→13:46)
[2019-03-28] MEDS: DOCUSATE SODIUM 100 MG CAP PO SCH ×2 (05:41→16:51)
[2019-03-28] MEDS: PANTOPRAZOLE (EC) 40 MG TAB PO SCH (05:41)
[2019-03-28] MEDS: INSULIN ASPART [NOVOLOG] 3 ML PEN SC SCH ×5 (07:55→21:05)
[2019-03-28] MEDS: METOCLOPRAMIDE 5 MG TAB PO SCH ×3 (08:21→20:23)
[2019-03-28] MEDS: ASPIRIN 81 MG TAB PO SCH (08:21)
[2019-03-28] MEDS: TACROLIMUS 1 MG CAP PO SCH ×2 (08:21→20:23)
[2019-03-28] MEDS: NA BICARBONATE 650 MG TAB PO SCH ×2 (08:21→20:50)
[2019-03-28] MEDS: BALSAM PERU/CASTOR OIL 60 GM TUBE TOP SCH (08:22)
[2019-03-28] MEDS: predniSONE 20 MG TAB PO SCH (08:22)
[2019-03-28] MEDS: MYCOPHENOLATE (SR) 180 MG TAB PO SCH ×2 (08:22→20:23)
[2019-03-28] MEDS: NPH, HUMAN INSULIN ISOPHANE 3ML VIAL SC SCH ×3 (08:23→21:00)
[2019-03-28] MEDS: ALBUTEROL/IPRATROPIUM (NEB) 3 ML AMP HHN SCH ×3 (08:30→20:00)
[2019-03-28] MEDS ORDERED: SOD CHLORIDE 0.9% 250 ML IV* ONE (09:41)
--- NOTE | 2019-03-28 09:48 | CONS ---
Assessment/Plan Assessment/Plan Hospital Course (Demo Recall) 1. ARF 2. SOB w/u in progress - 03/24/19 CT Chest Nodular consolidation in the left lower lobe is in keeping with bronchopneumonia and there is also multifocal bronchiolitis greatest in the left greater than right lower lobes that is likely also infectious. 3. Possible uti but seems less likely PMH as of last admit: - Anasarca, improved with IV Lasix - Endocarditis - Dr. Olmstead rec'd call from [facility] 01/15/19 regarding this and plan was to complete cefazolin through 01.29.19 - Completing Augmentin for progressive swelling of distal aspect of right ring finger with x-ray showing further of erosion and lucency involving the distal aspect of the distal phalanx of the right ring finger suspicious for osteomyelitis with improved but slight associated soft tissue swelling. ESR 67. - Hx OM of R 4th digit: swelling with new erosive changes and osteopenia of the underlying R 4th distal phalanx, suggestive of osteomyelitis; wound culture grew Serratia on 03/18/18 and Serratia + CoNS (likely colonizer) on 04/04/18 ; Pt declined amputation. ESR 39 on 03/18/2018. S/p Levaquin x 6 weeks, ESR 60 01/13/19 - Hematoma within the right lateral abdominal wall musculature which has developed since the previous study done 12/13/2018 measuring 7.3 x 4.6 cm in cross diameter and extending an acrylic that dimension approximately 10.7 cm from the level of the superior pole of the [place] right kidney to just inferior to the right iliac crest per CT 01/12/19 - Calcification of the vas deferens with a persistent hydrocele within the scrotum per CT 01/12/19 - Bacteremia d/t MSSA 12/09/2018, repeat blood cx 12/12/18 NGTD - MRSA and K. pneumoniae in urine cx 12/09/2018 - UA was neg for pyuria - Hx mild subtle increased activity within the upper aspect of LUE, nonspecific, on WBC tagged scan on 04/05/2018 - Hx OM of R 3rd fingertip (XR showed periosteal reaction at the tip of R 3rd distal phalanx, suspicious for OM, MRI showed cellulitis of distal R 4th phalanx, without OM) and L 2nd fingertip (XR showed cortical irregularity at the tuft of L 2nd distal phalanx with overlying soft tissue defect, suggesting early OM, MRI showed OM at L 2nd distal phalanx with, cellulitis about L 2nd distal phalanx without drainable fluid collection.) - Hx OM of R 2nd finger s/p amputation at proximal phalanx neck, and h/o OM of L 3rd finger s/p amputation at middle and distal phalanges - Acute on chronic renal failure - Hyperkalemia with metabolic acidosis - slowly improving with sodium bicarb - Hx ESRD, was on HD - S/p renal transplant in 2009 (on tacrolimus, mycophenolate and prednisone), chronic renal insufficiency at baseline - DM - Hgb A1c 10.5% - Hx Juan's esophagus and gastritis s/p EGD on 08/12/2017. No H. 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 psychosis - on Lexapro - Abdominal distention and pain Recommendation: - F/u cocci, crypto - Complete 5 -7 days Levaquin orally (03/25/19 - ); - Consider checking procalc near proposed end time Plan was d/w patient and his RN verbally, and with Dr. Olmstead via [employer] messaging. Consultation Date/Type/Reason Admit Date/Time March 17, 2019 at 13:23 Initial Consult Date 03/17/19 Type of Consult ID Requesting Provider: LUPE KAPLAN MD Date/Time of Note DATE: 03/28/19 TIME: 09:47 24 HR Interval Summary Free Text/Dictation D/w patient's RN, patient had HD catheter replacement yesterday. HD was attempted but was unable to complete d/t malfunction. Per RN plan is to possibly remove the line and replace, or readjust. He has remained afebrile and wbc 9.2. Detailed Summary Eyes: no complaints ENT: no complaints Respiratory: no complaints Cardiovascular: no complaints Gastrointestinal: no complaints Genitourinary: no complaints Musculoskeletal: no complaints Skin: bruising, other (tenderness right groin) Neurologic: other (c/o "tired" ) Psychological: other ("tired") Exam/Review of Systems Exam Vitals Vital Signs Date Temp Pulse Resp B/P (MAP) Pulse Ox O2 O2 Flow FiO2 Time Delivery Rate 03/28/19 125 08:30 03/28/19 98.0 22 137/75 96 Room Air 4.0 07:29 (95) Nasal Cannula 03/28/19 33 02:03 Allergies Coded Allergies magnesium (Unverified Allergy, Intermediate, 03/16/19) NUMBNESS AND HOT FUSHES Intake and Output 03/27/19 03/27/19 03/28/19 1515:00 23:00 07:00 IntakeIntake Total 870 ml 60 ml OutputOutput Total 400 ml 200 ml BalanceBalance 470 ml -140 ml Exam Constitutional: oriented, frail, other (thin, sleeping, awakened for assessment but stated "i'm tired" and closed his eyes again) Psych: nl mood/affect Head: normocephalic, atraumatic Eyes: nl conjunctiva, nl lids ENMT: nl external ears & nose, nl nasal mucosa & septum, mucosa pink and moist (did not open his mouth today) Neck: other (no swelling) Respiratory: normal air movement, diminished breath sounds no: wheezing Cardiovascular: regular rate and rhythm, nl pulses, murmurs/extra sounds Gastrointestinal: soft, bowel sounds (normoactive), other (did not allow me to palpate, said "don't touch me.") Genitourinary - Male: other (no f/c, R femoral HD site with mild swelling, did not allow me to palpate - stated "don't touch me" and he also said "it hurts", there was dried sanguinous fluid noted at the site on the dressing) Musculoskeletal: other (old LUE AVF graft site, no ttp, no bruit or thrill) Extremities: normal pulses, other (Partial amputation of R 2nd and 3rd fingers and L 2nd and 3rd fingers, R middle finger is open to air with a dry scab noted, no swelling, erythema, or ttp. ) 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: nl mental status, nl speech, nl strength Skin: ecchymosis (Large left flank bruising BUE bruising scattered - did not allow me to palpate - stated "don't touch me."); No rash or lesions Results Result Diagram: 03/28/19 0826 03/28/19 0826 Results 24hrs Laboratory Tests Test 03/27/19 12:33 03/27/19 17:26 03/27/19 17:34 03/27/19 19:57 Bedside Glucose 138 187 148 Potassium Level 6.4 *H Test 03/27/19 21:52 03/27/19 22:46 03/28/19 07:58 03/28/19 08:26 Hepatitis B Surface NEGATIVE Antigen Bedside Glucose 101 82 White Blood Count 9.2 # Red Blood Count 2.07 L Hemoglobin 6.8 *L Hematocrit 20.6 L Mean Corpuscular 99.5 Volume Mean Corpuscular 32.9 Hemoglobin Mean Corpuscular 33.0 Hemoglobin Concent Red Cell 14.7 H Distribution Width Platelet Count 398 # Mean Platelet Volume 9.9 Immature 0.400 Granulocytes % Neutrophils % 77.4 H Lymphocytes % 11.6 L Monocytes % 10.5 Eosinophils % 0.0 Basophils % 0.1 Nucleated Red Blood 0.0 Cells % Immature 0.040 H Granulocytes # Neutrophils # 7.1 Lymphocytes # 1.1 Monocytes # 1.0 H Eosinophils # 0.0 Basophils # 0.0 Nucleated Red Blood 0.0 Cells # Sodium Level 135 Potassium Level 5.2 H Chloride Level 106 Carbon Dioxide Level 19 L Anion Gap 10 Blood Urea Nitrogen 93 H Creatinine 3.89 H Est Glomerular 16 L Filtrat Rate mL/min Glucose Level 65 #L Calcium Level 9.2 Medications Medication Current Medications IV Flush (NS 3 ml) 3 ml PER PROTOCOL IV ; Start 03/16/19 at 17:30 Ondansetron HCl (Zofran Inj) 4 mg Q6H PRN IV NAUSEA/VOMITING Last administered on 03/26/19at 05:58; Admin Dose 4 MG; Start 03/16/19 at 17:30 Aspirin (Aspirin) 81 mg DAILY PO Last administered on 03/28/19at 08:21; Admin Dose 81 MG; Start 03/17/19 at 09:00 Nitroglycerin (Nitroglycerin (Sl Tab) 0.4 Mg) 1 tab Q5M PRN SL .CHEST PAIN; Start 03/16/19 at 17:30 Acetaminophen (Tylenol Tab) 650 mg Q6H PRN PO .PAIN 1-3 OR TEMP; Start 03/16/19 at 17:30 Morphine Sulfate (morphine) 2 mg Q4H PRN IV .PAIN 7-10 Last administered on 03/28/19at 06:26; Admin Dose 2 MG; Start 03/16/19 at 17:30 Zolpidem Tartrate (Ambien) 5 mg QHS PRN PO .INSOMNIA Last administered on 03/18/19at 00:00; Admin Dose 5 MG; Start 03/16/19 at 17:30 Docusate Sodium (Colace) 100 mg Q12H PO Last administered on 03/28/19at 05:41; Admin Dose 100 MG; Start 03/16/19 at 17:30 Bisacodyl (Dulcolax) 5 mg DAILY PRN PO .CONSTIPATION; Start 03/16/19 at 17:30 Miscellaneous Information 1 ea NOTE XX ; Start 03/16/19 at 18:00 Glucose (Glutose) 15 gm Q15M PRN PO DECREASED GLUCOSE; Start 03/16/19 at 18:00 Glucose (Glutose) 22.5 gm Q15M PRN PO DECREASED GLUCOSE; Start 03/16/19 at 18:00 Dextrose (D50w Syringe) 25 ml Q15M PRN IV DECREASED GLUCOSE; Start 03/16/19 at 18:00 Dextrose (D50w Syringe) 50 ml Q15M PRN IV DECREASED GLUCOSE; Start 03/16/19 at 18:00 Glucagon (Glucagen) 1 mg Q15M PRN IM DECREASED GLUCOSE; Start 03/16/19 at 18:00 Glucose (Glutose) 15 gm Q15M PRN BUCCAL DECREASED GLUCOSE; Start 03/16/19 at 18:00 Pantoprazole (Protonix Tab) 40 mg DAILY@06 PO Last administered on 03/28/19at 05:41; Admin Dose 40 MG; Start 03/17/19 at 06:00 Tacrolimus (Prograf) 2 mg AM PO Last administered on 03/28/19at 08:21; Admin Dose 2 MG; Start 03/18/19 at 09:00 Mycophenolate Sodium (Myfortic) 180 mg Q12 PO Last administered on 03/28/19at 08:22; Admin Dose 180 MG; Start 03/17/19 at 21:00 Diagnostic Test (Pha) (Accu-Chek) 1 ea 02 XX Last administered on 03/27/19 02:48; Admin Dose 1 EA; Start 03/18/19 at 02:00 Guaifenesin/ Dextromethorphan (Robitussin Dm Liquid Cup) 10 ml Q4H PRN PO COUGH; Start 03/18/19 at 14:30 Hydralazine HCl (Apresoline) 10 mg Q4H PRN IV ELEVATED BLOOD PRESSURE Last administered on 03/26/19 03:56; Admin Dose 10 MG; Start 03/18/19 at 15:30 Metoclopramide HCl (Reglan) 5 mg TID PO Last administered on 03/28/19 08:21; Admin Dose 5 MG; Start 03/18/19 at 17:00 Simethicone (Mylicon) 80 mg Q6H PRN PO DISTENSION/GAS/BLOATING Last admini stered on 03/26/19 04:34; Admin Dose 80 MG; Start 03/18/19 at 17:30 Insulin Aspart (Novolog Insulin Pen) NOVOLOG *MODERATE* ALGORITHM WITH MEALS BEDTIME SC Last administered on 03/27/19 17:38; Admin Dose 4 UNIT; Start 03/18/19 at 21:00 Sodium Bicarbonate (Sodium Bicarbonate Tab) 650 mg BID PO Last administered on 03/28/19 08:21; Admin Dose 650 MG; Start 03/19/19 at 14:00 Ergocalciferol (Drisdol) 50,000 unit [place]@09 PO Last administered on 03/21/19 09:54; Admin Dose 50,000 UNIT; Start 03/21/19 at 09:00 Acetaminophen/ Hydrocodone Bitart ([place] (5/325)) 2 tab Q4H PRN PO MODERATE to sever 5-10 Last administered on 03/28/19 08:22; Admin Dose 2 TAB; Start 03/20/19 at 22:30 Albuterol/ Ipratropium (Duoneb) 3 ml Q4H RESP THERAPY PRN HHN SHORTNESS OF BREATH; Start 03/23/19 at 04:00 Albuterol/ Ipratropium (Duoneb) 3 ml Q6HWA RESP THERAPY HHN Last administered on 03/25/19 19:37; Admin Dose 3 ML; Start 03/23/19 at 20:00 Insulin Glargine (Lantus) 10 units DAILY@2000 SC Last administered on 03/27/19 20:04; Admin Dose 10 UNITS; Start 03/24/19 at 20:00 Levofloxacin (Levaquin) 250 mg Q48H PO Last administered on 03/27/19 10:58; Admin Dose 250 MG; Start 03/25/19 at 10:00 Tacrolimus (Prograf) 1 mg HS PO Last administered on 03/27/19 22:45; Admin Dose 1 MG; Start 03/26/19 at 21:00 Insulin Human NPH (Humulin N) 5 unit TID SC Last administered on 03/27/19 12:40; Admin Dose 5 UNIT; Start 03/26/19 at 21:00 Prednisone (Prednisone) 20 mg DAILY PO Last administered on 03/28/19 08:22; Admin Dose 20 MG; Start 03/27/19 at 10:00 Diphenhydramine HCl (Benadryl) 25 mg Q6H PRN IV FOR ITCHING Last administered on 03/27/19 23:42; Admin Dose 25 MG; Start 03/27/19 at 23:30 MAHAD MAHARAJ NP March 28, 2019 09:48
[2019-03-28] MEDS ORDERED: EPOETIN ALFA-EPBX (ESRD) 2,000 UNIT/ML VIAL SC SCH (11:00)
[2019-03-28] MEDS ORDERED: EPOETIN ALFA-EPBX (ESRD) 3,000 UNIT/ML VIAL SC SCH (11:00)
--- NOTE | 2019-03-28 11:17 | CONS ---
Assessment/Plan Assessment/Plan Assessment/Plan (Daily) Assessment and recommendations; 1. Patient admitted with patchy bilateral bronchopneumonia with severe wheezing with marked overall clinical and radiological improvement. 2. Chronic immunosuppression, history of cadaveric renal transplant. 3. Anemia. 4. Diabetes. Change prednisone 10 mg daily with further tapering down to chronic maintenance dose in 24 hours. Continue Levaquin at least for another 48 hours. Consider discharge. Consultation Date/Type/Reason Admit Date/Time March 17, 2019 at 13:23 Initial Consult Date 03/25/19 Type of Consult Pulmonary Patient is a 58-year-old male who was admitted on the of this month with complaints of abdominal pain upon evaluation patient was diagnosed with hyperkalemia and has been treated since then however over the last 2 or 3 days patient is now having increasing coughing wheezing and production of green sputum. Patient denies any chest pain, hemoptysis any fever or chills. Past medical history; 1. History of renal failure, status post cadaveric transplant in 2009 maintained on chronic immunosuppression. 2. History of HCV infection. 3. Chronic anemia. 4. History of osteo-mellitus. 5. History of endocarditis status post treatment. Medications; reviewed. Allergies; none. Social history; most of any smoking alcohol abuse. Family history; noncontributory. Occupational history; patient is on disability. Review of systems; denies any headache, seizures, visual changes. Any chest pain, complains of cough with wheezing as well as green sputum production. Denies any further abdominal pain. Any nausea vomiting. Melena or hematochezia. Any weight loss. Any joint symptoms. General exam; middle-aged male, awake alert, currently no distress. Requesting Provider: LUPE KAPLAN MD Date/Time of Note DATE: 03/28/19 TIME: 11:16 24 HR Interval Summary Free Text/Dictation Patient's condition is continually improving. Denies any shortness of breath, coughing, wheezing, any sputum production. General exam; middle-aged male, awake and alert. Currently in no distress. Exam/Review of Systems Exam Vitals Vital Signs Date Temp Pulse Resp B/P (MAP) Pulse Ox O2 O2 Flow FiO2 Time Delivery Rate 03/28/19 125 08:30 03/28/19 Nasal 2.0 08:02 Cannula 03/28/19 98.0 22 137/75 96 07:29 (95) 03/28/19 33 02:03 Intake and Output 03/27/19 03/27/19 03/28/19 1515:00 23:00 07:00 IntakeIntake Total 870 ml 60 ml OutputOutput Total 400 ml 200 ml BalanceBalance 470 ml -140 ml Exam H EENT exam; supple neck, no JVD. No lymphadenopathy. Midline trachea. No thyromegaly. Patient has fair dentition. No neck masses. Chest exam; diminished but clear breath sounds. No added sounds. S1-S2 audible, no murmurs. Regular rhythm. Abdomen exam; soft, nontender. No organomegaly. Bowel sounds audible. Extremity exam; no peripheral edema. Patient has a patchy ecchymosis. COMPUTER REPAIRER exam; no focal deficit. Results Result Diagram: 03/28/19 0826 03/28/19 0826 Results 24hrs Laboratory Tests Test 03/27/19 12:33 03/27/19 17:26 03/27/19 17:34 03/27/19 19:57 Bedside Glucose 138 187 148 Potassium Level 6.4 *H Test 03/27/19 21:52 03/27/19 22:46 03/28/19 07:58 03/28/19 08:26 Hepatitis B Surface NEGATIVE Antigen Bedside Glucose 101 82 White Blood Count 9.2 # Red Blood Count 2.07 L Hemoglobin 6.8 *L Hematocrit 20.6 L Mean Corpuscular 99.5 Volume Mean Corpuscular 32.9 Hemoglobin Mean Corpuscular 33.0 Hemoglobin Concent Red Cell 14.7 H Distribution Width Platelet Count 398 # Mean Platelet Volume 9.9 Immature 0.400 Granulocytes % Neutrophils % 77.4 H Segmented 73 Neutrophils % (Manual) Lymphocytes % 11.6 L Lymphocytes % 16 (Manual) Monocytes % 10.5 Monocytes % (Manual) 11 Eosinophils % 0.0 Basophils % 0.1 Nucleated Red Blood 0.0 Cells % Immature 0.040 H Granulocytes # Neutrophils # 7.1 Lymphocytes (Manual) 1.4 Lymphocytes # 1.1 Monocytes # 1.0 H Monocytes # (Manual) 1.0 H Eosinophils # 0.0 Basophils # 0.0 Nucleated Red Blood 0.0 Cells # Platelet Estimate NORMAL Polychromasia 1+ Poikilocytosis 1+ Anisocytosis 1+ Sodium Level 135 Potassium Level 5.2 H Chloride Level 106 Carbon Dioxide Level 19 L Anion Gap 10 Blood Urea Nitrogen 93 H Creatinine 3.89 H Est Glomerular 16 L Filtrat Rate mL/min Glucose Level 65 #L Calcium Level 9.2 Medications Medication Current Medications IV Flush (NS 3 ml) 3 ml PER PROTOCOL IV ; Start 03/16/19 at 17:30 Ondansetron HCl (Zofran Inj) 4 mg Q6H PRN IV NAUSEA/VOMITING Last administered on 03/26/19at 05:58; Admin Dose 4 MG; Start 03/16/19 at 17:30 Aspirin (Aspirin) 81 mg DAILY PO Last administered on 03/28/19at 08:21; Admin Dose 81 MG; Start 03/17/19 at 09:00 Nitroglycerin (Nitroglycerin (Sl Tab) 0.4 Mg) 1 tab Q5M PRN SL .CHEST PAIN; Start 03/16/19 at 17:30 Acetaminophen (Tylenol Tab) 650 mg Q6H PRN PO .PAIN 1-3 OR TEMP; Start 03/16/19 at 17:30 Morphine Sulfate (morphine) 2 mg Q4H PRN IV .PAIN 7-10 Last administered on 03/28/19at 06:26; Admin Dose 2 MG; Start 03/16/19 at 17:30 Zolpidem Tartrate (Ambien) 5 mg QHS PRN PO .INSOMNIA Last administered on at 00:00; Admin Dose 5 MG; Start 03/16/19 at 17:30 Docusate Sodium (Colace) 100 mg Q12H PO Last administered on 03/28/19at 05:41; Admin Dose 100 MG; Start 03/16/19 at 17:30 Bisacodyl (Dulcolax) 5 mg DAILY PRN PO .CONSTIPATION; Start 03/16/19 at 17:30 Miscellaneous Information 1 ea NOTE XX ; Start 03/16/19 at 18:00 Glucose (Glutose) 15 gm Q15M PRN PO DECREASED GLUCOSE; Start 03/16/19 at 18:00 Glucose (Glutose) 22.5 gm Q15M PRN PO DECREASED GLUCOSE; Start 03/16/19 at 18:00 Dextrose (D50w Syringe) 25 ml Q15M PRN IV DECREASED GLUCOSE; Start 03/16/19 at 18:00 Dextrose (D50w Syringe) 50 ml Q15M PRN IV DECREASED GLUCOSE; Start 03/16/19 at 18:00 Glucagon (Glucagen) 1 mg Q15M PRN IM DECREASED GLUCOSE; Start 03/16/19 at 18:00 Glucose (Glutose) 15 gm Q15M PRN BUCCAL DECREASED GLUCOSE; Start 03/16/19 at 18:00 Pantoprazole (Protonix Tab) 40 mg DAILY@06 PO Last administered on 03/28/19 05:41; Admin Dose 40 MG; Start 03/17/19 at 06:00 Tacrolimus (Prograf) 2 mg AM PO Last administered on 03/28/19 08:21; Admin Dose 2 MG; Start 03/18/19 at 09:00 Mycophenolate Sodium (Myfortic) 180 mg Q12 PO Last administered on 03/28/19 08:22; Admin Dose 180 MG; Start 03/17/19 at 21:00 Diagnostic Test (Pha) (Accu-Chek) 1 ea 02 XX Last administered on 03/27/19 02:48; Admin Dose 1 EA; Start 03/18/19 at 02:00 Guaifenesin/ Dextromethorphan (Robitussin Dm Liquid Cup) 10 ml Q4H PRN PO COUGH; Start 03/18/19 at 14:30 Hydralazine HCl (Apresoline) 10 mg Q4H PRN IV ELEVATED BLOOD PRESSURE Last admi nistered on 03/26/19 03:56; Admin Dose 10 MG; Start 03/18/19 at 15:30 Metoclopramide HCl (Reglan) 5 mg TID PO Last administered on 03/28/19 08:21; Admin Dose 5 MG; Start 03/18/19 at 17:00 Simethicone (Mylicon) 80 mg Q6H PRN PO DISTENSION/GAS/BLOATING Last administered on 03/26/19 04:34; Admin Dose 80 MG; Start 03/18/19 at 17:30 Insulin Aspart (Novolog Insulin Pen) NOVOLOG *MODERATE* ALGORITHM WITH MEALS BEDTIME SC Last administered on 03/27/19 17:38; Admin Dose 4 UNIT; Start 03/18/19 at 21:00 Sodium Bicarbonate (Sodium Bicarbonate Tab) 650 mg BID PO Last administered on 03/28/19 08:21; Admin Dose 650 MG; Start 03/19/19 at 14:00 Ergocalciferol (Drisdol) 50,000 unit [place]@09 PO Last administered on 03/21/19 09:54; Admin Dose 50,000 UNIT; Start 03/21/19 at 09:00 Acetaminophen/ Hydrocodone Bitart ([place] (5/325)) 2 tab Q4H PRN PO MODERATE to sever 5-10 Last administered on 03/28/19 08:22; Admin Dose 2 TAB; Start 03/20/19 at 22:30 Albuterol/ Ipratropium (Duoneb) 3 ml Q4H RESP THERAPY PRN HHN SHORTNESS OF BREATH; Start 03/23/19 at 04:00 Albuterol/ Ipratropium (Duoneb) 3 ml Q6HWA RESP THERAPY HHN Last administered on 03/25/19 19:37; Admin Dose 3 ML; Start 03/23/19 at 20:00 Insulin Glargine (Lantus) 10 units DAILY@2000 SC Last administered on 03/27/19 20:04; Admin Dose 10 UNITS; Start 03/24/19 at 20:00 Levofloxacin (Levaquin) 250 mg Q48H PO Last administered on 03/27/19 10:58; Admin Dose 250 MG; Start 03/25/19 at 10:00 Tacrolimus (Prograf) 1 mg HS PO Last administered on 03/27/19 22:45; Admin Dose 1 MG; Start 03/26/19 at 21:00 Insulin Human NPH (Humulin N) 5 unit TID SC Last administered on 03/27/19 12:40; Admin Dose 5 UNIT; Start 03/26/19 at 21:00 Prednisone (Prednisone) 20 mg DAILY PO Last administered on 03/28/19 08:22; Admin Dose 20 MG; Start 03/27/19 at 10:00 Diphenhydramine HCl (Benadryl) 25 mg Q6H PRN IV FOR ITCHING Last administered on 03/27/19 23:42; Admin Dose 25 MG; Start 03/27/19 at 23:30 Epoetin Fidencio-epbx (Retacrit (Esrd)) 3,000 unit MoWeFr@1700 SC ; Start 03/29/19 at 17:00 Epoetin Fidencio-epbx (Retacrit (Esrd)) 3,000 unit ONCE SC ; Start 03/28/19 at 11:00; Stop 03/28/19 at 23:59 Multivit/Ca Carb/ B Cmplx/FA/Prenat (Alexandrea-Agustina) 1 tab DAILY PO ; Start 03/29/19 at 09:00 Epoetin Fidencio-epbx (Retacrit (Esrd)) 2,000 unit ONCE SC ; Start 03/28/19 at 11:00; Stop 03/28/19 at 23:59 Epoetin Fidencio-epbx (Retacrit (Esrd)) 2,000 unit MoWeFr@1700 SC ; Start 03/29/19 at 17:00 CATINA HAQ March 28, 2019 11:17
--- NOTE | 2019-03-28 11:36 | CONS ---
Assessment/Plan Assessment/Plan Hospital Course (Demo Recall) 1. Hyperkalemia, could be secondary to worsening renal failure. 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 PT started on HD 2. Abdominal pain with chills. 4. Acute on chronic renal failure. The patient had chronic kidney disease IV in the past with a creatinine of 3.2 to 3.4. It could be exacerbated by acute hemodynamic changes with sepsis. vs hydronephrosis vs ATN vs progression of disease, pt has underlying DM nephropathy 5. Elevated lipase.[facility] is notorious for very sensitive lipase level 6. Urinary tract infection. 7. Pneumonia. 8. Anemia, severe. Pt has a drop in Hg 9. History of hepatitis C. 10. History of donor renal transplantation. 11. metabolic acidosis likely secondary to renal failure 12. Non compliance He had refused p.o. Kayexalate and V[place] 13, Pneumonia 14. vit d deficiency Assessment/Plan (Daily) -HD today -yest. tolerated HD well, then it stopped due to cath malfunction, the right thigh is swollen, possible hematoma. Pt has a drop in hg. as well -called dr Cevallos to realign the David -HD session again Consultation Date/Type/Reason Admit Date/Time March 17, 2019 at 13:23 Initial Consult Date 03/17/19 Type of Consult nephrology Requesting Provider: LUPE KAPLAN MD Date/Time of Note DATE: 03/28/19 TIME: 11:35 24 HR Interval Summary Free Text/Dictation weakness Exam/Review of Systems Exam Vitals Vital Signs Date Temp Pulse Resp B/P (MAP) Pulse Ox O2 O2 Flow FiO2 Time Delivery Rate 03/28/19 98.0 106 121/43 11:10 (69) 03/28/19 Nasal 2.0 08:02 Cannula 03/28/19 22 96 07:29 03/28/19 33 02:03 Intake and Output 03/27/19 03/27/19 03/28/19 1515:00 23:00 07:00 IntakeIntake Total 870 ml 60 ml OutputOutput Total 400 ml 200 ml BalanceBalance 470 ml -140 ml Exam right inguinal David Constitutional: alert, oriented Psych: no complaints Head: normocephalic Neck: supple Respiratory: diminished breath sounds Cardiovascular: regular rate and rhythm Musculoskeletal: swelling (right thigh) Skin: other (pale) Results Result Diagram: 03/28/19 0826 03/28/19 0826 Results 24hrs Laboratory Tests Test 03/27/19 12:33 03/27/19 17:26 03/27/19 17:34 03/27/19 19:57 Bedside Glucose 138 187 148 Potassium Level 6.4 *H Test 03/27/19 21:52 03/27/19 22:46 03/28/19 07:58 03/28/19 08:26 Hepatitis B Surface NEGATIVE Antigen Bedside Glucose 101 82 White Blood Count 9.2 # Red Blood Count 2.07 L Hemoglobin 6.8 *L Hematocrit 20.6 L Mean Corpuscular 99.5 Volume Mean Corpuscular 32.9 Hemoglobin Mean Corpuscular 33.0 Hemoglobin Concent Red Cell 14.7 H Distribution Width Platelet Count 398 # Mean Platelet Volume 9.9 Immature 0.400 Granulocytes % Neutrophils % 77.4 H Segmented 73 Neutrophils % (Manual) Lymphocytes % 11.6 L Lymphocytes % 16 (Manual) Monocytes % 10.5 Monocytes % (Manual) 11 Eosinophils % 0.0 Basophils % 0.1 Nucleated Red Blood 0.0 Cells % Immature 0.040 H Granulocytes # Neutrophils # 7.1 Lymphocytes (Manual) 1.4 Lymphocytes # 1.1 Monocytes # 1.0 H Monocytes # (Manual) 1.0 H Eosinophils # 0.0 Basophils # 0.0 Nucleated Red Blood 0.0 Cells # Platelet Estimate NORMAL Polychromasia 1+ Poikilocytosis 1+ Anisocytosis 1+ Sodium Level 135 Potassium Level 5.2 H Chloride Level 106 Carbon Dioxide Level 19 L Anion Gap 10 Blood Urea Nitrogen 93 H Creatinine 3.89 H Est Glomerular 16 L Filtrat Rate mL/min Glucose Level 65 #L Calcium Level 9.2 Medications Medication Current Medications IV Flush (NS 3 ml) 3 ml PER PROTOCOL IV ; Start 03/16/19 at 17:30 Ondansetron HCl (Zofran Inj) 4 mg Q6H PRN IV NAUSEA/VOMITING Last administered on 03/26/19at 05:58; Admin Dose 4 MG; Start 03/16/19 at 17:30 Aspirin (Aspirin) 81 mg DAILY PO Last administered on 03/28/19at 08:21; Admin Dose 81 MG; Start 03/17/19 at 09:00 Nitroglycerin (Nitroglycerin (Sl Tab) 0.4 Mg) 1 tab Q5M PRN SL .CHEST PAIN; Start 03/16/19 at 17:30 Acetaminophen (Tylenol Tab) 650 mg Q6H PRN PO .PAIN 1-3 OR TEMP; Start 03/16/19 at 17:30 Morphine Sulfate (morphine) 2 mg Q4H PRN IV .PAIN 7-10 Last administered on 03/28/19at 06:26; Admin Dose 2 MG; Start 03/16/19 at 17:30 Zolpidem Tartrate (Ambien) 5 mg QHS PRN PO .INSOMNIA Last administered on 03/18/19at 00:00; Admin Dose 5 MG; Start 03/16/19 at 17:30 Docusate Sodium (Colace) 100 mg Q12H PO Last administered on 03/28/19at 05:41; Admin Dose 100 MG; Start 03/16/19 at 17:30 Bisacodyl (Dulcolax) 5 mg DAILY PRN PO .CONSTIPATION; Start 03/16/19 at 17:30 Miscellaneous Information 1 ea NOTE XX ; Start 03/16/19 at 18:00 Glucose (Glutose) 15 gm Q15M PRN PO DECREASED GLUCOSE; Start 03/16/19 at 18:00 Glucose (Glutose) 22.5 gm Q15M PRN PO DECREASED GLUCOSE; Start 03/16/19 at 18:00 Dextrose (D50w Syringe) 25 ml Q15M PRN IV DECREASED GLUCOSE; Start 03/16/19 at 18:00 Dextrose (D50w Syringe) 50 ml Q15M PRN IV DECREASED GLUCOSE; Start 03/16/19 at 18:00 Glucagon (Glucagen) 1 mg Q15M PRN IM DECREASED GLUCOSE; Start 03/16/19 at 18:00 Glucose (Glutose) 15 gm Q15M PRN BUCCAL DECREASED GLUCOSE; Start 03/16/19 at 18:00 Pantoprazole (Protonix Tab) 40 mg DAILY@06 PO Last administered on 03/28/19at 05:41; Admin Dose 40 MG; Start 03/17/19 at 06:00 Tacrolimus (Prograf) 2 mg AM PO Last administered on 03/28/19at 08:21; Admin Dose 2 MG; Start 03/18/19 at 09:00 Mycophenolate Sodium (Myfortic) 180 mg Q12 PO Last administered on 03/28/19 08:22; Admin Dose 180 MG; Start 03/17/19 at 21:00 Diagnostic Test (Pha) (Accu-Chek) 1 ea 02 XX Last administered on 03/27/19 02:48; Admin Dose 1 EA; Start 03/18/19 at 02:00 Guaifenesin/ Dextromethorphan (Robitussin Dm Liquid Cup) 10 ml Q4H PRN PO COUGH; Start 03/18/19 at 14:30 Hydralazine HCl (Apresoline) 10 mg Q4H PRN IV ELEVATED BLOOD PRESSURE Last administered on 03/26/19 03:56; Admin Dose 10 MG; Start 03/18/19 at 15:30 Metoclopramide HCl (Reglan) 5 mg TID PO Last administered on 03/28/19 08:21; Admin Dose 5 MG; Start 03/18/19 at 17:00 Simethicone (Mylicon) 80 mg Q6H PRN PO DISTENSION/GAS/BLOATING Last administere d on 03/26/19 04:34; Admin Dose 80 MG; Start 03/18/19 at 17:30 Insulin Aspart (Novolog Insulin Pen) NOVOLOG *MODERATE* ALGORITHM WITH MEALS BEDTIME SC Last administered on 03/27/19 17:38; Admin Dose 4 UNIT; Start 03/18/19 at 21:00 Sodium Bicarbonate (Sodium Bicarbonate Tab) 650 mg BID PO Last administered on 03/28/19 08:21; Admin Dose 650 MG; Start 03/19/19 at 14:00 Ergocalciferol (Drisdol) 50,000 unit [place]@09 PO Last administered on 03/21/19 09:54; Admin Dose 50,000 UNIT; Start 03/21/19 at 09:00 Acetaminophen/ Hydrocodone Bitart ([place] (5/325)) 2 tab Q4H PRN PO MODERATE to sever 5-10 Last administered on 03/28/19 08:22; Admin Dose 2 TAB; Start 03/20/19 at 22:30 Albuterol/ Ipratropium (Duoneb) 3 ml Q4H RESP THERAPY PRN HHN SHORTNESS OF BREATH; Start 03/23/19 at 04:00 Albuterol/ Ipratropium (Duoneb) 3 ml Q6HWA RESP THERAPY HHN Last administered on 03/25/19at 19:37; Admin Dose 3 ML; Start 03/23/19 at 20:00 Insulin Glargine (Lantus) 10 units DAILY@2000 SC Last administered on 03/27/19at 20:04; Admin Dose 10 UNITS; Start 03/24/19 at 20:00 Levofloxacin (Levaquin) 250 mg Q48H PO Last administered on 03/27/19at 10:58; Admin Dose 250 MG; Start 03/25/19 at 10:00 Tacrolimus (Prograf) 1 mg HS PO Last administered on 03/27/19at 22:45; Admin Dose 1 MG; Start 03/26/19 at 21:00 Insulin Human NPH (Humulin N) 5 unit TID SC Last administered on 03/27/19at 12:40; Admin Dose 5 UNIT; Start 03/26/19 at 21:00 Diphenhydramine HCl (Benadryl) 25 mg Q6H PRN IV FOR ITCHING Last administered o n 03/27/19at 23:42; Admin Dose 25 MG; Start 03/27/19 at 23:30 Epoetin Fidencio-epbx (Retacrit (Esrd)) 3,000 unit MoWeFr@1700 SC ; Start 03/29/19 at 17:00 Epoetin Fidencio-epbx (Retacrit (Esrd)) 3,000 unit ONCE SC ; Start 03/28/19 at 11:00; Stop 03/28/19 at 23:59 Multivit/Ca Carb/ B Cmplx/FA/Prenat (Alexandrea-Agustina) 1 tab DAILY PO ; Start 03/29/19 at 09:00 Epoetin Fidencio-epbx (Retacrit (Esrd)) 2,000 unit ONCE SC ; Start 03/28/19 at 11:00; Stop 03/28/19 at 23:59 Epoetin Fidencio-epbx (Retacrit (Esrd)) 2,000 unit MoWeFr@1700 SC ; Start 03/29/19 at 17:00 Prednisone (Prednisone) 10 mg DAILY PO ; Start 03/29/19 at 09:00 GENNARO GAO March 28, 2019 11:36
[2019-03-28] MEDS: ERGOCALCIFEROL 50,000 UNIT CAP PO SCH (12:31)
[2019-03-28] MEDS ORDERED: HYDROmorphONE 0.5 MG/0.5 ML SYG IM STA (16:47)
--- NOTE | 2019-03-28 17:26 | CONS ---
Consult Date/Type/Reason Admit Date/Time March 17, 2019 at 13:23 Initial Consult Date 03/25/19 Type of Consultation: Urology Reason for Consultation Hydronephrosis of the transplanted kidney. Requesting Provider: LUPE KAPLAN MD Date/Time of Note DATE: 03/28/19 TIME: 17:23 Subjective Patient denies any pain and he is comfortable at the present. Objective Vitals Vital Signs Date Temp Pulse Resp B/P (MAP) Pulse Ox O2 O2 Flow FiO2 Time Delivery Rate 03/28/19 121 17:07 03/28/19 4.0 15:46 03/28/19 98.0 121/43 11:10 (69) 03/28/19 Nasal 08:02 Cannula 03/28/19 22 96 07:29 03/28/19 33 02:03 Intake and Output 03/27/19 03/27/19 03/28/19 1515:00 23:00 07:00 IntakeIntake Total 870 ml 60 ml OutputOutput Total 400 ml 200 ml BalanceBalance 470 ml -140 ml Exam The hematoma on the left side of the abdomen and over the left iliac crest is stable. There is no pain. Results/Medications Result Diagram: 03/28/19 0803/28/19 08 Results 24 hrs Laboratory Tests Test 03/27/19 17:26 03/27/19 17:34 03/27/19 19:57 03/27/19 21:52 Potassium Level 6.4 *H Bedside Glucose 187 148 Hepatitis B Surface NEGATIVE Antigen Test 03/27/19 22:46 03/28/19 07:58 03/28/19 08:26 03/28/19 11:48 Bedside Glucose 101 82 217 White Blood Count 9.2 # Red Blood Count 2.07 L Hemoglobin 6.8 *L Hematocrit 20.6 L Mean Corpuscular 99.5 Volume Mean Corpuscular 32.9 Hemoglobin Mean Corpuscular 33.0 Hemoglobin Concent Red Cell 14.7 H Distribution Width Platelet Count 398 # Mean Platelet Volume 9.9 Immature 0.400 Granulocytes % Neutrophils % 77.4 H Segmented 73 Neutrophils % (Manual) Lymphocytes % 11.6 L Lymphocytes % 16 (Manual) Monocytes % 10.5 Monocytes % (Manual) 11 Eosinophils % 0.0 Basophils % 0.1 Nucleated Red Blood 0.0 Cells % Immature 0.040 H Granulocytes # Neutrophils # 7.1 Lymphocytes (Manual) 1.4 Lymphocytes # 1.1 Monocytes # 1.0 H Monocytes # (Manual) 1.0 H Eosinophils # 0.0 Basophils # 0.0 Nucleated Red Blood 0.0 Cells # Platelet Estimate NORMAL Polychromasia 1+ Poikilocytosis 1+ Anisocytosis 1+ Sodium Level 135 Potassium Level 5.2 H Chloride Level 106 Carbon Dioxide Level 19 L Anion Gap 10 Blood Urea Nitrogen 93 H Creatinine 3.89 H Est Glomerular 16 L Filtrat Rate mL/min Glucose Level 65 #L Calcium Level 9.2 Test 03/28/19 16:39 Bedside Glucose 283 H Home Meds Active Scripts Tacrolimus* (Prograf*) 1 Mg Capsule, 2 MG PO Q12 for 30 Days, CAP Prov:LETI RODRIGUEZ 01/19/19 Reported Medications Insulin Lispro (Humalog) 100 Unit/1 Ml Cartridge, 0 SQ SLIDING SCALE, EA 2-10 UNITS 03/16/19 Mycophenolate Sodium* (Mycophenolic Acid*) 180 Mg Tablet.dr, 180 MG PO Q12, TAB 03/16/19 Prednisone* (Prednisone*) 5 Mg Tab, 5 MG PO DAILY, TAB 12/09/18 Medications Current Medications IV Flush (NS 3 ml) 3 ml PER PROTOCOL IV ; Start 03/16/19 at 17:30 Ondansetron HCl (Zofran Inj) 4 mg Q6H PRN IV NAUSEA/VOMITING Last administered on 03/26/19at 05:58; Admin Dose 4 MG; Start 03/16/19 at 17:30 Aspirin (Aspirin) 81 mg DAILY PO Last administered on 03/28/19at 08:21; Admin Dose 81 MG; Start 03/17/19 at 09:00 Nitroglycerin (Nitroglycerin (Sl Tab) 0.4 Mg) 1 tab Q5M PRN SL .CHEST PAIN; Start 03/16/19 at 17:30 Acetaminophen (Tylenol Tab) 650 mg Q6H PRN PO .PAIN 1-3 OR TEMP; Start 03/16/19 at 17:30 Morphine Sulfate (morphine) 2 mg Q4H PRN IV .PAIN 7-10 Last administered on 03/28/19at 15:42; Admin Dose 2 MG; Start 03/16/19 at 17:30 Zolpidem Tartrate (Ambien) 5 mg QHS PRN PO .INSOMNIA Last administered on 03/18/19at 00:00; Admin Dose 5 MG; Start 03/16/19 at 17:30 Docusate Sodium (Colace) 100 mg Q12H PO Last administered on 03/28/19at 05:41; Admin Dose 100 MG; Start 03/16/19 at 17:30 Bisacodyl (Dulcolax) 5 mg DAILY PRN PO .CONSTIPATION; Start 03/16/19 at 17:30 Miscellaneous Information 1 ea NOTE XX ; Start 03/16/19 at 18:00 Glucose (Glutose) 15 gm Q15M PRN PO DECREASED GLUCOSE; Start 03/16/19 at 18:00 Glucose (Glutose) 22.5 gm Q15M PRN PO DECREASED GLUCOSE; Start 03/16/19 at 18:00 Dextrose (D50w Syringe) 25 ml Q15M PRN IV DECREASED GLUCOSE; Start 03/16/19 at 18:00 Dextrose (D50w Syringe) 50 ml Q15M PRN IV DECREASED GLUCOSE; Start 03/16/19 at 18:00 Glucagon (Glucagen) 1 mg Q15M PRN IM DECREASED GLUCOSE; Start 03/16/19 at 18:00 Glucose (Glutose) 15 gm Q15M PRN BUCCAL DECREASED GLUCOSE; Start 03/16/19 at 18:00 Pantoprazole (Protonix Tab) 40 mg DAILY@06 PO Last administered on 03/28/19at 05:41; Admin Dose 40 MG; Start 03/17/19 at 06:00 Tacrolimus (Prograf) 2 mg AM PO Last administered on 03/28/19at 08:21; Admin Dose 2 MG; Start 03/18/19 at 09:00 Mycophenolate Sodium (Myfortic) 180 mg Q12 PO Last administered on 03/28/19at 08:22; Admin Dose 180 MG; Start 03/17/19 at 21:00 Diagnostic Test (Pha) (Accu-Chek) 1 ea 02 XX Last administered on 03/27/19at 02:48; Admin Dose 1 EA; Start 03/18/19 at 02:00 Guaifenesin/ Dextromethorphan (Robitussin Dm Liquid Cup) 10 ml Q4H PRN PO COUGH; Start 03/18/19 at 14:30 Hydralazine HCl (Apresoline) 10 mg Q4H PRN IV ELEVATED BLOOD PRESSURE Last administered on 03/26/19 03:56; Admin Dose 10 MG; Start 03/18/19 at 15:30 Metoclopramide HCl (Reglan) 5 mg TID PO Last administered on 03/28/19 12:32; Admin Dose 5 MG; Start 03/18/19 at 17:00 Simethicone (Mylicon) 80 mg Q6H PRN PO DISTENSION/GAS/BLOATING Last administered on 03/26/19 04:34; Admin Dose 80 MG; Start 03/18/19 at 17:30 Insulin Aspart (Novolog Insulin Pen) NOVOLOG *MODERATE* ALGORITHM WITH MEALS BEDTIME SC Last administered on 03/28/19 16:50; Admin Dose 8 UNIT; Start 03/18/19 at 21:00 Sodium Bicarbonate (Sodium Bicarbonate Tab) 650 mg BID PO Last administered on 03/28/19 08:21; Admin Dose 650 MG; Start 03/19/19 at 14:00 Ergocalciferol (Drisdol) 50,000 unit [place]@09 PO Last administered on 03/28/19 12:31; Admin Dose 50,000 UNIT; Start 03/21/19 at 09:00 Acetaminophen/ Hydrocodone Bitart ([place] (5/325)) 2 tab Q4H PRN PO MODERATE to sever 5-10 Last administered on 03/28/19 13:46; Admin Dose 2 TAB; Start 03/20/19 at 22:30 Albuterol/ Ipratropium (Duoneb) 3 ml Q4H RESP THERAPY PRN HHN SHORTNESS OF BREATH; Start 03/23/19 at 04:00 Albuterol/ Ipratropium (Duoneb) 3 ml Q6HWA RESP THERAPY HHN Last administered on 03/25/19 19:37; Admin Dose 3 ML; Start 03/23/19 at 20:00 Insulin Glargine (Lantus) 10 units DAILY@2000 SC Last administered on 03/27/19 20:04; Admin Dose 10 UNITS; Start 03/24/19 at 20:00 Levofloxacin (Levaquin) 250 mg Q48H PO Last administered on 03/27/19 10:58; Admin Dose 250 MG; Start 03/25/19 at 10:00 Tacrolimus (Prograf) 1 mg HS PO Last administered on 03/27/19at 22:45; Admin Dose 1 MG; Start 03/26/19 at 21:00 Insulin Human NPH (Humulin N) 5 unit TID SC Last administered on 03/27/19at 12:40; Admin Dose 5 UNIT; Start 03/26/19 at 21:00 Diphenhydramine HCl (Benadryl) 25 mg Q6H PRN IV FOR ITCHING Last administered on 03/27/19at 23:42; Admin Dose 25 MG; Start 03/27/19 at 23:30 Epoetin Fidencio-epbx (Retacrit (Esrd)) 3,000 unit MoWeFr@1700 SC ; Start 03/29/19 at 17:00 Epoetin Fidencio-epbx (Retacrit (Esrd)) 3,000 unit ONCE SC ; Start 03/28/19 at 11:00; Stop 03/28/19 at 23:59 Multivit/Ca Carb/ B Cmplx/FA/Prenat (Alexandrea-Agustina) 1 tab DAILY PO ; Start 03/29/19 at 09:00 Epoetin Fidencio-epbx (Retacrit (Esrd)) 2,000 unit ONCE SC ; Start 03/28/19 at 11:00; Stop 03/28/19 at 23:59 Epoetin Fidencio-epbx (Retacrit (Esrd)) 2,000 unit MoWeFr@1700 SC ; Start 03/29/19 at 17:00 Prednisone (Prednisone) 10 mg DAILY PO ; Start 03/29/19 at 09:00 Assessment/Plan Hospital Course (Demo Recall) 58-year-old male is known to have a l history of cadaveric kidney transplant in 2009 with chronic kidney disease stage IV, diabetes, hypertension, chronic HCV infection, 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 Patient presented to the emergency room with complaints of abdominal pain and decreased urinary output over 1 month. Patient noted to have worsening renal failure with hyperkalemia on evaluation in the emergency room. Patient had renal ultrasound and that showed mild hydronephrosis of the transplanted kidney. Patient has been admitted to the hospital here before and same findings were noted in the transplanted kidney. On the examination he has a hematoma in the left side of the abdomen and he states that happened after he cough. Patient does have a right hydrocele. As far as a hydronephrosis in the transplanted kidney disease has been present before. We will encourage the patient to urinate often and try to keep his bladder empty. The hematoma the left side of the abdomen is stable. It may take some time for it to clear. RAMILA GONZALEZ MD March 28, 2019 17:25
[2019-03-28] MEDS: INSULIN GLARGINE [LANTus] (100 UNITS/ML) SYG SC SCH (21:04)
[2019-03-29] VITALS (11 sets, daily range): BP systolic 108–160; BP diastolic 47–60; PULSE 79–124; RESP 18–20
[2019-03-29] MEDS: ZOLPIDEM 5 MG TAB PO PRN ×2 (00:47→23:19)
[2019-03-29] MEDS: HYDROCODONE/APAP (5/325) TAB PO PRN ×4 (01:26→23:19)
[2019-03-29] MEDS: ACCU-CHEK XX SCH (02:00)
[2019-03-29] MEDS: PANTOPRAZOLE (EC) 40 MG TAB PO SCH (06:20)
[2019-03-29] MEDS: DOCUSATE SODIUM 100 MG CAP PO SCH ×2 (06:20→18:44)
[2019-03-29] MEDS: morphine 2 MG INJ IV PRN ×2 (07:30→21:28)
[2019-03-29] MEDS: ALBUTEROL/IPRATROPIUM (NEB) 3 ML AMP HHN SCH ×3 (08:00→19:57)
[2019-03-29] MEDS: TACROLIMUS 1 MG CAP PO SCH ×2 (08:25→21:27)
[2019-03-29] MEDS: MYCOPHENOLATE (SR) 180 MG TAB PO SCH ×2 (08:25→21:27)
[2019-03-29] MEDS: NA BICARBONATE 650 MG TAB PO SCH ×2 (08:26→21:27)
[2019-03-29] MEDS: ASPIRIN 81 MG TAB PO SCH (08:26)
[2019-03-29] MEDS: METOCLOPRAMIDE 5 MG TAB PO SCH ×3 (08:28→21:27)
[2019-03-29] MEDS: predniSONE 10 MG TAB PO SCH (08:28)
[2019-03-29] MEDS: MULTIVIT/CA CARB/B CMPLX/FA TAB PO SCH (08:29)
[2019-03-29] MEDS: BALSAM PERU/CASTOR OIL 60 GM TUBE TOP SCH (08:29)
[2019-03-29] MEDS: INSULIN ASPART [NOVOLOG] 3 ML PEN SC SCH ×4 (08:35→22:41)
[2019-03-29] MEDS: NPH, HUMAN INSULIN ISOPHANE 3ML VIAL SC SCH ×3 (08:40→21:00)
--- NOTE | 2019-03-29 10:23 | CONS ---
Assessment/Plan Assessment/Plan Hospital Course (Demo Recall) 1. Hyperkalemia, could be secondary to worsening renal failure. 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 PT started on HD, not successful. The access in right groin is failed. Pt refused new HD access 2. Abdominal pain with chills. 4. Acute on chronic renal failure. The patient had chronic kidney disease IV in the past with a creatinine of 3.2 to 3.4. It could be exacerbated by acute hemodynamic changes with sepsis. vs hydronephrosis vs ATN vs progression of dis ease, pt has underlying DM nephropathy 5. Elevated lipase. [facility] is notorious for very sensitive lipase level 6. Urinary tract infection. 7. Pneumonia. 8. Anemia, severe. Pt has a drop in Hg 9. History of hepatitis C. 10. History of donor renal transplantation. 11. metabolic acidosis likely secondary to renal failure 12. Non compliance. He had refused p.o. Kayexalate and Veltassa few times 13, Pneumonia 14. vit d deficiency Assessment/Plan (Daily) -HD catheter was removed -spoke to dr Dexter to evaluate left AV graft -pt refusing medication -medical treatment of hyperkalemia ordered -pt needs to have psych evaluated -he is full code Consultation Date/Type/Reason Admit Date/Time March 17, 2019 at 13:23 Initial Consult Date 03/17/19 Type of Consult nephrology Requesting Provider: LUPE KAPLAN MD Date/Time of Note DATE: 03/29/19 TIME: 10:22 24 HR Interval Summary Free Text/Dictation pt depressed Exam/Review of Systems Exam Vitals Vital Signs Date Temp Pulse Resp B/P (MAP) Pulse Ox O2 O2 Flow FiO2 Time Delivery Rate 03/29/19 4.0 08:33 03/29/19 79 08:00 03/29/19 98.3 20 160/58 100 07:27 (92) 03/29/19 Nasal 04:40 Cannula 03/29/19 33 02:29 Intake and Output 03/28/19 03/28/19 03/29/19 1515:00 23:00 07:00 IntakeIntake Total 830 ml 400 ml OutputOutput Total 375 ml BalanceBalance 830 ml 25 ml Constitutional: alert, oriented Psych: depression Eyes: nl conjunctiva ENMT: nl external ears & nose Respiratory: clear to auscultation Cardiovascular: regular rate and rhythm Gastrointestinal: soft Results Result Diagram: 03/29/19 0726 03/29/19 0723 Results 24hrs Laboratory Tests Test 03/28/19 11:48 03/28/19 16:39 03/28/19 20:26 03/29/19 03:06 Bedside Glucose 217 283 H 190 157 Test 03/29/19 07:23 03/29/19 07:26 03/29/19 08:05 Sodium Level 135 Potassium Level 5.5 H Chloride Level 108 Carbon Dioxide Level 19 L Anion Gap 8 Blood Urea Nitrogen 110 H Creatinine 4.47 H Est Glomerular 14 L Filtrat Rate mL/min Glucose Level 123 # Calcium Level 8.7 White Blood Count 6.9 # Red Blood Count 1.81 L Hemoglobin 6.1 *L Hematocrit 18.1 L Mean Corpuscular 100.0 Volume Mean Corpuscular 33.7 H Hemoglobin Mean Corpuscular 33.7 Hemoglobin Concent Red Cell 15.3 H Distribution Width Platelet Count 165 # Mean Platelet Volume 10.1 Immature 0.600 H Granulocytes % Neutrophils % 73.2 Lymphocytes % 14.2 L Monocytes % 12.0 H Eosinophils % 0.0 Basophils % 0.0 Nucleated Red Blood 0.0 Cells % Immature 0.040 H Granulocytes # Neutrophils # 5.1 Lymphocytes # 1.0 Monocytes # 0.8 Eosinophils # 0.0 Basophils # 0.0 Nucleated Red Blood 0.0 Cells # Bedside Glucose 173 Medications Medication Current Medications IV Flush (NS 3 ml) 3 ml PER PROTOCOL IV ; Start 03/16/19 at 17:30 Ondansetron HCl (Zofran Inj) 4 mg Q6H PRN IV NAUSEA/VOMITING Last administered on 03/26/19at 05:58; Admin Dose 4 MG; Start 03/16/19 at 17:30 Aspirin (Aspirin) 81 mg DAILY PO Last administered on 03/29/19at 08:26; Admin Dose 81 MG; Start 03/17/19 at 09:00 Nitroglycerin (Nitroglycerin (Sl Tab) 0.4 Mg) 1 tab Q5M PRN SL .CHEST PAIN; Start 03/16/19 at 17:30 Acetaminophen (Tylenol Tab) 650 mg Q6H PRN PO .PAIN 1-3 OR TEMP; Start 03/16/19 at 17:30 Morphine Sulfate (morphine) 2 mg Q4H PRN IV .PAIN 7-10 Last administered on 03/29/19at 07:30; Admin Dose 2 MG; Start 03/16/19 at 17:30 Zolpidem Tartrate (Ambien) 5 mg QHS PRN PO .INSOMNIA Last administered on 03/29/19at 00:47; Admin Dose 5 MG; Start 03/16/19 at 17:30 Docusate Sodium (Colace) 100 mg Q12H PO Last administered on 03/29/19at 06:20; A dmin Dose 100 MG; Start 03/16/19 at 17:30 Bisacodyl (Dulcolax) 5 mg DAILY PRN PO .CONSTIPATION; Start 03/16/19 at 17:30 Miscellaneous Information 1 ea NOTE XX ; Start 03/16/19 at 18:00 Glucose (Glutose) 15 gm Q15M PRN PO DECREASED GLUCOSE; Start 03/16/19 at 18:00 Glucose (Glutose) 22.5 gm Q15M PRN PO DECREASED GLUCOSE; Start 03/16/19 at 18:00 Dextrose (D50w Syringe) 25 ml Q15M PRN IV DECREASED GLUCOSE; Start 03/16/19 at 18:00 Dextrose (D50w Syringe) 50 ml Q15M PRN IV DECREASED GLUCOSE; Start 03/16/19 at 18:00 Glucagon (Glucagen) 1 mg Q15M PRN IM DECREASED GLUCOSE; Start 03/16/19 at 18:00 Glucose (Glutose) 15 gm Q15M PRN BUCCAL DECREASED GLUCOSE; Start 03/16/19 at 18:00 Pantoprazole (Protonix Tab) 40 mg DAILY@06 PO Last administered on 03/29/19at 06:20; Admin Dose 40 MG; Start 03/17/19 at 06:00 Tacrolimus (Prograf) 2 mg AM PO Last administered on 03/29/19at 08:25; Admin Dose 2 MG; Start 03/18/19 at 09:00 Mycophenolate Sodium (Myfortic) 180 mg Q12 PO Last administered on 03/29/19 08:25; Admin Dose 180 MG; Start 03/17/19 at 21:00 Diagnostic Test (Pha) (Accu-Chek) 1 ea 02 XX Last administered on 03/29/19at 02:00; Admin Dose 1 EA; Start 03/18/19 at 02:00 Guaifenesin/ Dextromethorphan (Robitussin Dm Liquid Cup) 10 ml Q4H PRN PO COUGH; Start 03/18/19 at 14:30 Hydralazine HCl (Apresoline) 10 mg Q4H PRN IV ELEVATED BLOOD PRESSURE Last administered on 03/26/19 03:56; Admin Dose 10 MG; Start 03/18/19 at 15:30 Metoclopramide HCl (Reglan) 5 mg TID PO Last administered on 03/29/19 08:28; Admin Dose 5 MG; Start 03/18/19 at 17:00 Simethicone (Mylicon) 80 mg Q6H PRN PO DISTENSION/GAS/BLOATING Last administered on 03/26/19 04:34; Admin Dose 80 MG; Start 03/18/19 at 17:30 Insulin Aspart (Novolog Insulin Pen) NOVOLOG *MODERATE* ALGORITHM WITH MEALS BEDTIME SC Last administered on 03/29/19 08:35; Admin Dose 2 UNIT; Start 03/18/19 at 21:00 Sodium Bicarbonate (Sodium Bicarbonate Tab) 650 mg BID PO Last administered on 03/29/19 08:26; Admin Dose 650 MG; Start 03/19/19 at 14:00 Ergocalciferol (Drisdol) 50,000 unit [place]@09 PO Last administered on 03/28/19 12:31; Admin Dose 50,000 UNIT; Start 03/21/19 at 09:00 Acetaminophen/ Hydrocodone Bitart ([place] (5/325)) 2 tab Q4H PRN PO MODERATE to sever 5-10 Last administered on 03/29/19 01:26; Admin Dose 2 TAB; Start 03/20 at 22:30 Albuterol/ Ipratropium (Duoneb) 3 ml Q4H RESP THERAPY PRN HHN SHORTNESS OF BREATH; Start 03/23/19 at 04:00 Albuterol/ Ipratropium (Duoneb) 3 ml Q6HWA RESP THERAPY HHN Last administered on 03/25/19 19:37; Admin Dose 3 ML; Start 03/23/19 at 20:00 Insulin Glargine (Lantus) 10 units DAILY@2000 SC Last administered on 03/28/19 21:04; Admin Dose 10 UNITS; Start 03/24/19 at 20:00 Levofloxacin (Levaquin) 250 mg Q48H PO Last administered on 03/27/19 10:58; Admin Dose 250 MG; Start 03/25/19 at 10:00 Tacrolimus (Prograf) 1 mg HS PO Last administered on 03/28/19 20:23; Admin Dose 1 MG; Start 03/26/19 at 21:00 Insulin Human NPH (Humulin N) 5 unit TID SC Last administered on 03/29/19at 08:40; Admin Dose 5 UNIT; Start 03/26/19 at 21:00 Diphenhydramine HCl (Benadryl) 25 mg Q6H PRN IV FOR ITCHING Last administered on 03/27/19 23:42; Admin Dose 25 MG; Start 03/27/19 at 23:30 Epoetin Fidencio-epbx (Retacrit (Esrd)) 3,000 unit MoWeFr@1700 SC ; Start 03/29/19 at 17:00 Multivit/Ca Carb/ B Cmplx/FA/Prenat (Alexandrea-Agustina) 1 tab DAILY PO Last administered on 03/29/19 08:29; Admin Dose 1 TAB; Start 03/29/19 at 09:00 Epoetin Fidencio-epbx (Retacrit (Esrd)) 2,000 unit MoWeFr@1700 SC ; Start 03/29/19 at 17:00 Prednisone (Prednisone) 10 mg DAILY PO Last administered on 03/29/19 08:28; Admin Dose 10 MG; Start 03/29/19 at 09:00 GENNARO GAO March 29, 2019 10:23
[2019-03-29] MEDS ORDERED: INSULIN REGULAR, HUMAN 100 UNIT/1 ML 3ML VIAL IVP STA (10:25)
[2019-03-29] MEDS ORDERED: CALCIUM CHLORIDE 10% 1 GM in DEXTROSE 5% 100 ML IV SCH (10:30)
[2019-03-29] MEDS ORDERED: DEXTROSE 50% 50 ML SYRINGE IV PRN (10:30)
[2019-03-29] MEDS ORDERED: CA CHLORIDE 10% 10 ML SYRINGE IV ONE (10:30)
[2019-03-29] MEDS ORDERED: SODIUM POLYSTYRENE 15 GM KIT (POWDER + SORBITOL) PO ONE (10:30)
--- NOTE | 2019-03-29 11:10 | CONS ---
Consult Date/Type/Reason Admit Date/Time March 17, 2019 at 13:23 Initial Consult Date 03/25/19 Type of Consult Pulmonary Requesting Provider: LUPE KAPLAN MD Date/Time of Note DATE: 03/29/19 TIME: 11:09 Subjective Patient stable this morning. No respiratory distress on room air. Objective Vital Signs Date Temp Pulse Resp B/P (MAP) Pulse Ox O2 O2 Flow FiO2 Time Delivery Rate 03/29/19 4.0 08:33 03/29/19 79 08:00 03/29/19 98.3 20 160/58 100 07:27 (92) 03/29/19 Nasal 04:40 Cannula 03/29/19 33 02:29 Intake and Output 03/28/19 03/28/19 03/29/19 1515:00 23:00 07:00 IntakeIntake Total 830 ml 400 ml OutputOutput Total 375 ml BalanceBalance 830 ml 25 ml Exam GENERAL: VITAL SIGNS: per chart NECK: Supple. No JVD or lymphadenopathy. CARDIAC EXAM: S1, S2. No added sounds or murmurs. CHEST: clear bilaterally, No added sounds, rales or wheezes ABDOMEN: Soft, nontender. No guarding or rebound. EXTREMITIES: No cyanosis, clubbing or edema. NEUROLOGIC: Generalized weakness. No focal deficits. Vent Setting Fraction of Inspired Oxygen pe: 33 Results/Medications Result Diagram: 03/29/19 0726 03/29/19 0723 Results 24 hrs Laboratory Tests Test 03/28/19 11:48 03/28/19 16:39 03/28/19 20:26 03/29/19 03:06 Bedside Glucose 217 283 H 190 157 Test 03/29/19 07:23 03/29/19 07:26 03/29/19 08:05 Sodium Level 135 Potassium Level 5.5 H Chloride Level 108 Carbon Dioxide Level 19 L Anion Gap 8 Blood Urea Nitrogen 110 H Creatinine 4.47 H Est Glomerular 14 L Filtrat Rate mL/min Glucose Level 123 # Calcium Level 8.7 White Blood Count 6.9 # Red Blood Count 1.81 L Hemoglobin 6.1 *L Hematocrit 18.1 L Mean Corpuscular 100.0 Volume Mean Corpuscular 33.7 H Hemoglobin Mean Corpuscular 33.7 Hemoglobin Concent Red Cell 15.3 H Distribution Width Platelet Count 165 # Mean Platelet Volume 10.1 Immature 0.600 H Granulocytes % Neutrophils % 73.2 Lymphocytes % 14.2 L Monocytes % 12.0 H Eosinophils % 0.0 Basophils % 0.0 Nucleated Red Blood 0.0 Cells % Immature 0.040 H Granulocytes # Neutrophils # 5.1 Lymphocytes # 1.0 Monocytes # 0.8 Eosinophils # 0.0 Basophils # 0.0 Nucleated Red Blood 0.0 Cells # Bedside Glucose 173 Medications Current Medications IV Flush (NS 3 ml) 3 ml PER PROTOCOL IV ; Start 03/16/19 at 17:30 Ondansetron HCl (Zofran Inj) 4 mg Q6H PRN IV NAUSEA/VOMITING Last administered on 03/26/19at 05:58; Admin Dose 4 MG; Start 03/16/19 at 17:30 Aspirin (Aspirin) 81 mg DAILY PO Last administered on 03/29/19at 08:26; Admin Dose 81 MG; Start 03/17/19 at 09:00 Nitroglycerin (Nitroglycerin (Sl Tab) 0.4 Mg) 1 tab Q5M PRN SL .CHEST PAIN; Start 03/16/19 at 17:30 Acetaminophen (Tylenol Tab) 650 mg Q6H PRN PO .PAIN 1-3 OR TEMP; Start 03/16/19 at 17:30 Morphine Sulfate (morphine) 2 mg Q4H PRN IV .PAIN 7-10 Last administered on 03/29/19at 07:30; Admin Dose 2 MG; Start 03/16/19 at 17:30 Zolpidem Tartrate (Ambien) 5 mg QHS PRN PO .INSOMNIA Last administered on 03/29/19at 00:47; Admin Dose 5 MG; Start 03/16/19 at 17:30 Docusate Sodium (Colace) 100 mg Q12H PO Last administered on 03/29/19at 06:20; Admin Dose 100 MG; Start 03/16/19 at 17:30 Bisacodyl (Dulcolax) 5 mg DAILY PRN PO .CONSTIPATION; Start 03/16/19 at 17:30 Miscellaneous Information 1 ea NOTE XX ; Start 03/16/19 at 18:00 Glucose (Glutose) 15 gm Q15M PRN PO DECREASED GLUCOSE; Start 03/16/19 at 18:00 Glucose (Glutose) 22.5 gm Q15M PRN PO DECREASED GLUCOSE; Start 03/16/19 at 18:00 Dextrose (D50w Syringe) 25 ml Q15M PRN IV DECREASED GLUCOSE; Start 03/16/19 at 18:00 Dextrose (D50w Syringe) 50 ml Q15M PRN IV DECREASED GLUCOSE; Start 03/16/19 at 18:00 Glucagon (Glucagen) 1 mg Q15M PRN IM DECREASED GLUCOSE; Start 03/16/19 at 18:00 Glucose (Glutose) 15 gm Q15M PRN BUCCAL DECREASED GLUCOSE; Start 03/16/19 at 18:00 Pantoprazole (Protonix Tab) 40 mg DAILY@06 PO Last administered on 03/29/19 06:20; Admin Dose 40 MG; Start 03/17/19 at 06:00 Tacrolimus (Prograf) 2 mg AM PO Last administered on 03/29/19 08:25; Admin Dose 2 MG; Start 03/18/19 at 09:00 Mycophenolate Sodium (Myfortic) 180 mg Q12 PO Last administered on 03/29/19 08:25; Admin Dose 180 MG; Start 03/17/19 at 21:00 Diagnostic Test (Pha) (Accu-Chek) 1 ea 02 XX Last administered on 03/29/19 02:00; Admin Dose 1 EA; Start 03/18/19 at 02:00 Guaifenesin/ Dextromethorphan (Robitussin Dm Liquid Cup) 10 ml Q4H PRN PO COUGH; Start 03/18/19 at 14:30 Hydralazine HCl (Apresoline) 10 mg Q4H PRN IV ELEVATED BLOOD PRESSURE Last administered on 03/26/19 03:56; Admin Dose 10 MG; Start 03/18/19 at 15:30 Metoclopramide HCl (Reglan) 5 mg TID PO Last administered on 03/29/19 08:28; Admin Dose 5 MG; Start 03/18/19 at 17:00 Simethicone (Mylicon) 80 mg Q6H PRN PO DISTENSION/GAS/BLOATING Last administered on 03/26/19 04:34; Admin Dose 80 MG; Start 03/18/19 at 17:30 Insulin Aspart (Novolog Insulin Pen) NOVOLOG *MODERATE* ALGORITHM WITH MEALS BEDTIME SC Last administered on 03/29/19 08:35; Admin Dose 2 UNIT; Start 03/18/19 at 21:00 Sodium Bicarbonate (Sodium Bicarbonate Tab) 650 mg BID PO Last administered on 03/29/19 08:26; Admin Dose 650 MG; Start 03/19/19 at 14:00 Ergocalciferol (Drisdol) 50,000 unit Sutton@09 PO Last administered on 03/28/19 12:31; Admin Dose 50,000 UNIT; Start 03/21/19 at 09:00 Acetaminophen/ Hydrocodone Bitart ([place] (5/325)) 2 tab Q4H PRN PO MODERATE to sever 5-10 Last administered on 03/29/19 01:26; Admin Dose 2 TAB; Start 03/20/19 at 22:30 Albuterol/ Ipratropium (Duoneb) 3 ml Q4H RESP THERAPY PRN HHN SHORTNESS OF BREATH; Start 03/23/19 at 04:00 Albuterol/ Ipratropium (Duoneb) 3 ml Q6HWA RESP THERAPY HHN Last administered on 03/25/19 19:37; Admin Dose 3 ML; Start 03/23/19 at 20:00 Insulin Glargine (Lantus) 10 units DAILY@2000 SC Last administered on 03/28/19 21:04; Admin Dose 10 UNITS; Start 03/24/19 at 20:00 Levofloxacin (Levaquin) 250 mg Q48H PO Last administered on 03/27/19 10:58; Admin Dose 250 MG; Start 03/25/19 at 10:00 Tacrolimus (Prograf) 1 mg HS PO Last administered on 03/28/19 20:23; Admin Dose 1 MG; Start 03/26/19 at 21:00 Insulin Human NPH (Humulin N) 5 unit TID SC Last administered on 03/29/19 08:40; Admin Dose 5 UNIT; Start 03/26/19 at 21:00 Diphenhydramine HCl (Benadryl) 25 mg Q6H PRN IV FOR ITCHING Last administered on 03/27/19 23:42; Admin Dose 25 MG; Start 03/27/19 at 23:30 Epoetin Fidencio-epbx (Retacrit (Esrd)) 3,000 unit MoWeFr@1700 SC ; Start 03/29/19 at 17:00 Multivit/Ca Carb/ B Cmplx/FA/Prenat (Alexandrea-Agustina) 1 tab DAILY PO Last administered on 03/29/19at 08:29; Admin Dose 1 TAB; Start 03/29/19 at 09:00 Epoetin Fidencio-epbx (Retacrit (Esrd)) 2,000 unit MoWeFr@1700 SC ; Start 03/29/19 at 17:00 Prednisone (Prednisone) 10 mg DAILY PO Last administered on 03/29/19at 08:28; Admin Dose 10 MG; Start 03/29/19 at 09:00 Dextrose (D50w Syringe) ONCE PRN IV DECREASED GLUCOSE; Start 03/29/19 at 10:30; Stop 03/29/19 at 19:00 Calcium Chloride 1 gm/Dextrose 110 ml @ 110 mls/hr ONCE IV ; Start 03/29/19 at 10:30; Stop 03/29/19 at 12:00 Assessment/Plan Hospital Course (Demo Recall) Assessment recommendations; 1. Persistent hyperkalemia in a patient with renal insufficiency. Patient cont inues to decline Kayexalate. 2. Mild respiratory distress now improved likely secondary to acute bronchitis 3. History of hepatitis C 4. History of cadaveric renal transplant 5. Anemia Plan 1. Continue correction of hyperkalemia 2. Continue bronchodilators encourage out of bed 3. Consider transfusion of packed red blood cells Consider [facility] to [facility]s [facility] March 29, 2019 11:10
[2019-03-29] MEDS: LEVOFLOXACIN 250 MG TAB PO SCH (12:01)
--- NOTE | 2019-03-29 14:40 | CONS ---
Assessment/Plan Assessment/Plan Hospital Course (Demo Recall) 1. ARF 2. SOB w/u in progress - 03/24/19 CT Chest Nodular consolidation in the left lower lobe is in keeping with bronchopneumonia and there is also multifocal bronchiolitis greatest in the left greater than right lower lobes that is likely also infectious. 3. Possible uti but seems less likely PMH as of last admit: - Anasarca, improved with IV Lasix - Endocarditis - Dr. Olmstead rec'd call from [facility] 01/15/19 regarding this and plan was to complete cefazolin through 01.29.19 - Completing Augmentin for progressive swelling of distal aspect of right ring finger with x-ray showing further of erosion and lucency involving the distal aspect of the distal phalanx of the right ring finger suspicious for osteomyelitis with improved but slight associated soft tissue swelling. ESR 67. - Hx OM of R 4th digit: swelling with new erosive changes and osteopenia of the underlying R 4th distal phalanx, suggestive of osteomyelitis; wound culture grew Serratia on 03/18/18 and Serratia + CoNS (likely colonizer) on 04/04/18 ; Pt declined amputation. ESR 39 on 03/18/2018. S/p Levaquin x 6 weeks, ESR 60 01/13/19 - Hematoma within the right lateral abdominal wall musculature which has developed since the previous study done 12/13/2018 measuring 7.3 x 4.6 cm in cross diameter and extending an acrylic that dimension approximately 10.7 cm from the level of the superior pole of the [place] right kidney to just inferior to the right iliac crest per CT 01/12/19 - Calcification of the vas deferens with a persistent hydrocele within the scrotum per CT 01/12/19 - Bacteremia d/t MSSA 12/09/2018, repeat blood cx 12/12/18 NGTD - MRSA and K. pneumoniae in urine cx 12/09/2018 - UA was neg for pyuria - Hx mild subtle increased activity within the upper aspect of LUE, nonspecific, on WBC tagged scan on 04/05/2018 - Hx OM of R 3rd fingertip (XR showed periosteal reaction at the tip of R 3rd distal phalanx, suspicious for OM, MRI showed cellulitis of distal R 4th phalanx, without OM) and L 2nd fingertip (XR showed cortical irregularity at the tuft of L 2nd distal phalanx with overlying soft tissue defect, suggesting early OM, MRI showed OM at L 2nd distal phalanx with, cellulitis about L 2nd distal phalanx without drainable fluid collection.) - Hx OM of R 2nd finger s/p amputation at proximal phalanx neck, and h/o OM of L 3rd finger s/p amputation at middle and distal phalanges - Acute on chronic renal failure - Hyperkalemia with metabolic acidosis - slowly improving with sodium bicarb - Hx ESRD, was on HD - S/p renal transplant in 2009 (on tacrolimus, mycophenolate and prednisone), chronic renal insufficiency at baseline - DM - Hgb A1c 10.5% - Hx Juan's esophagus and gastritis s/p EGD on 08/12/2017. No H. pylori on Bx - BLE atherosclerosis - Seen by Vascular Surgery during last admit - Onychomycosis, tinea pedis - Seen by Studio Technician during last admit - Rheumatoid arthritis - Chronic HCV infection - HTN - Dyslipidemia - Hx polysubstance and IV drug use. 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 psychosis - on Lexapro - Abdominal distention and pain Recommendation: - F/u cocci, crypto - Complete 5 -7 days Levaquin orally (03/25/19 - ); - Consider checking procalc near proposed end time - increase Tacrolimus as per primary/renal recs I directed care to CENTER ADMINISTRATOR yesterday via [email or web address] messaging. Consultation Date/Type/Reason Admit Date/Time March 17, 2019 at 13:23 Initial Consult Date Type of Consult ID Requesting Provider: LUPE KAPLAN MD Date/Time of Note DATE: 03/29/19 TIME: 14:39 Exam/Review of Systems Exam Vitals Vital Signs Date Temp Pulse Resp B/P (MAP) Pulse Ox O2 O2 Flow FiO2 Time Delivery Rate 03/29/19 85 12:00 03/29/19 98.3 20 142/53 100 11:30 (82) 03/29/19 4.0 08:33 03/29/19 Nasal 08:00 Cannula 03/29/19 33 02:29 Intake and Output 03/28/19 03/28/19 03/29/19 1515:00 23:00 07:00 IntakeIntake Total 830 ml 400 ml OutputOutput Total 375 ml BalanceBalance 830 ml 25 ml Exam sleeping peacefully Results Result Diagram: 03/29/19 0726 03/29/19 0723 Results 24hrs Laboratory Tests Test 03/28/19 16:39 03/28/19 20:26 03/29/19 03:06 03/29/19 07:23 Bedside Glucose 283 H 190 157 Sodium Level 135 Potassium Level 5.5 H Chloride Level 108 Carbon Dioxide Level 19 L Anion Gap 8 Blood Urea Nitrogen 110 H Creatinine 4.47 H Est Glomerular 14 L Filtrat Rate mL/min Glucose Level 123 # Calcium Level 8.7 Test 03/29/19 07:26 03/29/19 08:05 03/29/19 11:25 03/29/19 13:08 White Blood Count 6.9 # Red Blood Count 1.81 L Hemoglobin 6.1 *L Hematocrit 18.1 L Mean Corpuscular 100.0 Volume Mean Corpuscular 33.7 H Hemoglobin Mean Corpuscular 33.7 Hemoglobin Concent Red Cell 15.3 H Distribution Width Platelet Count 165 # Mean Platelet Volume 10.1 Immature 0.600 H Granulocytes % Neutrophils % 73.2 Lymphocytes % 14.2 L Monocytes % 12.0 H Eosinophils % 0.0 Basophils % 0.0 Nucleated Red Blood 0.0 Cells % Immature 0.040 H Granulocytes # Neutrophils # 5.1 Lymphocytes # 1.0 Monocytes # 0.8 Eosinophils # 0.0 Basophils # 0.0 Nucleated Red Blood 0.0 Cells # Bedside Glucose 173 178 215 Medications Medication Current Medications IV Flush (NS 3 ml) 3 ml PER PROTOCOL IV ; Start 03/16/19 at 17:30 Ondansetron HCl (Zofran Inj) 4 mg Q6H PRN IV NAUSEA/VOMITING Last administered on 03/26/19at 05:58; Admin Dose 4 MG; Start 03/16/19 at 17:30 Aspirin (Aspirin) 81 mg DAILY PO Last administered on 03/29/19at 08:26; Admin Dose 81 MG; Start 03/17/19 at 09:00 Nitroglycerin (Nitroglycerin (Sl Tab) 0.4 Mg) 1 tab Q5M PRN SL .CHEST PAIN; Start 03/16/19 at 17:30 Acetaminophen (Tylenol Tab) 650 mg Q6H PRN PO .PAIN 1-3 OR TEMP; Start 03/16/19 at 17:30 Morphine Sulfate (morphine) 2 mg Q4H PRN IV .PAIN 7-10 Last administered on 03/29/19at 07:30; Admin Dose 2 MG; Start 03/16/19 at 17:30 Zolpidem Tartrate (Ambien) 5 mg QHS PRN PO .INSOMNIA Last administered on 03/29/19at 00:47; Admin Dose 5 MG; Start 03/16/19 at 17:30 Docusate Sodium (Colace) 100 mg Q12H PO Last administered on 03/29/19 06:20; Admin Dose 100 MG; Start 03/16/19 at 17:30 Bisacodyl (Dulcolax) 5 mg DAILY PRN PO .CONSTIPATION; Start 03/16/19 at 17:30 Miscellaneous Information 1 ea NOTE XX ; Start 03/16/19 at 18:00 Glucose (Glutose) 15 gm Q15M PRN PO DECREASED GLUCOSE; Start 03/16/19 at 18:00 Glucose (Glutose) 22.5 gm Q15M PRN PO DECREASED GLUCOSE; Start 03/16/19 at 18:00 Dextrose (D50w Syringe) 25 ml Q15M PRN IV DECREASED GLUCOSE; Start 03/16/19 at 18:00 Dextrose (D50w Syringe) 50 ml Q15M PRN IV DECREASED GLUCOSE; Start 03/16/19 at 18:00 Glucagon (Glucagen) 1 mg Q15M PRN IM DECREASED GLUCOSE; Start 03/16/19 at 18:00 Glucose (Glutose) 15 gm Q15M PRN BUCCAL DECREASED GLUCOSE; Start 03/16/19 at 18:00 Pantoprazole (Protonix Tab) 40 mg DAILY@06 PO Last administered on 03/29/19at 06:20; Admin Dose 40 MG; Start 03/17/19 at 06:00 Tacrolimus (Prograf) 2 mg AM PO Last administered on 03/29/19at 08:25; Admin Dose 2 MG; Start 03/18/19 at 09:00 Mycophenolate Sodium (Myfortic) 180 mg Q12 PO Last administered on 03/29/19 08:25; Admin Dose 180 MG; Start 03/17/19 at 21:00 Diagnostic Test (Pha) (Accu-Chek) 1 ea 02 XX Last administered on 03/29/19 02:00; Admin Dose 1 EA; Start 03/18/19 at 02:00 Guaifenesin/ Dextromethorphan (Robitussin Dm Liquid Cup) 10 ml Q4H PRN PO COUGH; Start 03/18/19 at 14:30 Hydralazine HCl (Apresoline) 10 mg Q4H PRN IV ELEVATED BLOOD PRESSURE Last administered on 03/26/19 03:56; Admin Dose 10 MG; Start 03/18/19 at 15:30 Metoclopramide HCl (Reglan) 5 mg TID PO Last administered on 03/29/19 13:01; Admin Dose 5 MG; Start 03/18/19 at 17:00 Simethicone (Mylicon) 80 mg Q6H PRN PO DISTENSION/GAS/BLOATING Last administered on 03/26/19 04:34; Admin Dose 80 MG; Start 03/18/19 at 17:30 Insulin Aspart (Novolog Insulin Pen) NOVOLOG *MODERATE* ALGORITHM WITH MEALS BEDTIME SC Last administered on 03/29/19 12:13; Admin Dose 2 UNIT; Start 03/18/19 at 21:00 Sodium Bicarbonate (Sodium Bicarbonate Tab) 650 mg BID PO Last administered on 03/29/19 08:26; Admin Dose 650 MG; Start 03/19/19 at 14:00 Ergocalciferol (Drisdol) 50,000 unit Sutton@09 PO Last administered on 03/28/19 12:31; Admin Dose 50,000 UNIT; Start 03/21/19 at 09:00 Acetaminophen/ Hydrocodone Bitart ([place] (5/325)) 2 tab Q4H PRN PO MODERATE to sever 5-10 Last administered on 03/29/19 11:46; Admin Dose 2 TAB; Start 03/20/19 at 22:30 Albuterol/ Ipratropium (Duoneb) 3 ml Q4H RESP THERAPY PRN HHN SHORTNESS OF BREATH; Start 03/23/19 at 04:00 Albuterol/ Ipratropium (Duoneb) 3 ml Q6HWA RESP THERAPY HHN Last administered on 03/25/19 19:37; Admin Dose 3 ML; Start 03/23/19 at 20:00 Insulin Glargine (Lantus) 10 units DAILY@2000 SC Last administered on 03/28/19 21:04; Admin Dose 10 UNITS; Start 03/24/19 at 20:00 Levofloxacin (Levaquin) 250 mg Q48H PO Last administered on 03/29/19at 12:01; Admin Dose 250 MG; Start 03/25/19 at 10:00 Tacrolimus (Prograf) 1 mg HS PO Last administered on 03/28/19at 20:23; Admin Dose 1 MG; Start 03/26/19 at 21:00 Insulin Human NPH (Humulin N) 5 unit TID SC Last administered on 03/29/19at 13:19; Admin Dose 5 UNIT; Start 03/26/19 at 21:00 Diphenhydramine HCl (Benadryl) 25 mg Q6H PRN IV FOR ITCHING Last administered on 03/27/19at 23:42; Admin Dose 25 MG; Start 03/27/19 at 23:30 Epoetin Fidencio-epbx (Retacrit (Esrd)) 3,000 unit MoWeFr@1700 SC ; Start 03/29/19 at 17:00 Multivit/Ca Carb/ B Cmplx/FA/Prenat (Alexandrea-Agustina) 1 tab DAILY PO Last administered on 03/29/19at 08:29; Admin Dose 1 TAB; Start 03/29/19 at 09:00 Epoetin Fidencio-epbx (Retacrit (Esrd)) 2,000 unit MoWeFr@1700 SC ; Start 03/29/19 at 17:00 Prednisone (Prednisone) 10 mg DAILY PO Last administered on 03/29/19at 08:28; Admin Dose 10 MG; Start 03/29/19 at 09:00 Dextrose (D50w Syringe) ONCE PRN IV DECREASED GLUCOSE; Start 03/29/19 at 10:30; Stop 03/29/19 at 19:00 PARAMJIT OLMSTEAD MD March 29, 2019 14:40
[2019-03-29] MEDS ORDERED: SOD CHLORIDE 0.9% 250 ML IV* ONE (16:29)
--- NOTE | 2019-03-29 16:29 | PN ---
Date/Time of Note Date/Time of Note DATE: 03/29/19 TIME: 16:23 Assessment/Plan VTE Prophylaxis Risk score (from [facility])>0 risk: 6 SCD applied (from [facility]): No SCD contraindicated: patient refusal Pharmacological prophylaxis: NA/contraindicated Pharm contraindication: thrombocytopenia Lines/Catheters IV C[facility]ter Type (from [facility] Mid Line Central line still needed: Yes Urinary Cath still in place: No Assessment/Plan Hospital Course Patient with worsening renal failure and hyperkalemia, status post right femoral hemodialysis catheter placement, access is failed and patient is now refusing new catheter placement. Hemoglobin is 6.1, will repeat CBC if hemoglobin is below 7 will transfuse 1 unit of packed red blood cells. Patient's condition and and plan of care discussed with patient patient's and patient daughter Ivanna at the bedside. Pending tele-psychiatry evaluation. Assessment/Plan -Left lower lobe is in keeping with bronchopneumonia and multifocal bronchiolitis greatest in the left. Dr. Bush is following in pulmonology consultation. Continue Levaquin and prednisone. -Possible sepsis secondary to possible pneumonia and UTI, s/p Rocephin. Dr. Olmstead is following in infection disease consultation. -Acute renal failure on chronic kidney disease stage IV, status post cadaveric kidney transplant [place] 2009. Dr. Allen is following in nephrology consultation. -Hyperkalemia, status post Kayexalate -Moderate hydronephrosis, Dr. Noguera is following in urology consultation. -Possible pancreatitis, monitor lipase -Diabetes mellitus type 2 with diabetic neuropathy. HbgA1C is 6.2. Continue Tradjenta, Lantus and NovoLog. -Hypertension. -Anemia -Chronic HCV infection -Rheumatoid arthritis -History of polysubstance and IV drug use Further recommendations based on clinical course. Plan of care discussed with Dr. Maier. Result Diagram: 03/29/19 0726 03/29/19 0723 Results 24hrs Laboratory Tests Test 03/28/19 16:39 03/28/19 20:26 03/29/19 03:06 03/29/19 07:23 Bedside Glucose 283 H 190 157 Sodium Level 135 Potassium Level 5.5 H Chloride Level 108 Carbon Dioxide Level 19 L Anion Gap 8 Blood Urea Nitrogen 110 H Creatinine 4.47 H Est Glomerular 14 L Filtrat Rate mL/min Glucose Level 123 # Calcium Level 8.7 Test 03/29/19 07:26 03/29/19 08:05 03/29/19 11:25 03/29/19 13:08 White Blood Count 6.9 # Red Blood Count 1.81 L Hemoglobin 6.1 *L Hematocrit 18.1 L Mean Corpuscular 100.0 Volume Mean Corpuscular 33.7 H Hemoglobin Mean Corpuscular 33.7 Hemoglobin Concent Red Cell 15.3 H Distribution Width Platelet Count 165 # Mean Platelet Volume 10.1 Immature 0.600 H Granulocytes % Neutrophils % 73.2 Lymphocytes % 14.2 L Monocytes % 12.0 H Eosinophils % 0.0 Basophils % 0.0 Nucleated Red Blood 0.0 Cells % Immature 0.040 H Granulocytes # Neutrophils # 5.1 Lymphocytes # 1.0 Monocytes # 0.8 Eosinophils # 0.0 Basophils # 0.0 Nucleated Red Blood 0.0 Cells # Bedside Glucose 173 178 215 Exam/Review of Systems Exam Vitals Vital Signs Date Temp Pulse Resp B/P (MAP) Pulse Ox O2 O2 Flow FiO2 Time Delivery Rate 03/29/19 98.6 108 20 129/59 99 15:13 (82) 03/29/19 4.0 08:33 03/29/19 Nasal 08:00 Cannula 03/29/19 33 02:29 Intake and Output 03/28/19 03/28/19 03/29/19 1515:00 23:00 07:00 IntakeIntake Total 830 ml 400 ml OutputOutput Total 375 ml BalanceBalance 830 ml 25 ml Exam Constitutional: alert, oriented Respiratory: clear to auscultation Cardiovascular: regular rate and rhythm Gastrointestinal: soft, tender Musculoskeletal: nl extremities to inspection Extremities: normal pulses 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: nl mental status Right femoral hemodialysis catheter Results Results 24hrs Laboratory Tests Test 03/28/19 16:39 03/28/19 20:26 03/29/19 03:06 03/29/19 07:23 Bedside Glucose 283 H 190 157 Sodium Level 135 Potassium Level 5.5 H Chloride Level 108 Carbon Dioxide Level 19 L Anion Gap 8 Blood Urea Nitrogen 110 H Creatinine 4.47 H Est Glomerular 14 L Filtrat Rate mL/min Glucose Level 123 # Calcium Level 8.7 Test 03/29/19 07:26 03/29/19 08:05 03/29/19 11:25 03/29/19 13:08 White Blood Count 6.9 # Red Blood Count 1.81 L Hemoglobin 6.1 *L Hematocrit 18.1 L Mean Corpuscular 100.0 Volume Mean Corpuscular 33.7 H Hemoglobin Mean Corpuscular 33.7 Hemoglobin Concent Red Cell 15.3 H Distribution Width Platelet Count 165 # Mean Platelet Volume 10.1 Immature 0.600 H Granulocytes % Neutrophils % 73.2 Lymphocytes % 14.2 L Monocytes % 12.0 H Eosinophils % 0.0 Basophils % 0.0 Nucleated Red Blood 0.0 Cells % Immature 0.040 H Granulocytes # Neutrophils # 5.1 Lymphocytes # 1.0 Monocytes # 0.8 Eosinophils # 0.0 Basophils # 0.0 Nucleated Red Blood 0.0 Cells # Bedside Glucose 173 178 215 Medications Medication Current Medications IV Flush (NS 3 ml) 3 ml PER PROTOCOL IV ; Start 03/16/19 at 17:30 Ondansetron HCl (Zofran Inj) 4 mg Q6H PRN IV NAUSEA/VOMITING Last administered on 03/26/19at 05:58; Admin Dose 4 MG; Start 03/16/19 at 17:30 Aspirin (Aspirin) 81 mg DAILY PO Last administered on 03/29/19at 08:26; Admin Dose 81 MG; Start 03/17/19 at 09:00 Nitroglycerin (Nitroglycerin (Sl Tab) 0.4 Mg) 1 tab Q5M PRN SL .CHEST PAIN; Start 03/16/19 at 17:30 Acetaminophen (Tylenol Tab) 650 mg Q6H PRN PO .PAIN 1-3 OR TEMP; Start 03/16/19 at 17:30 Morphine Sulfate (morphine) 2 mg Q4H PRN IV .PAIN 7-10 Last administered on 03/29/19at 07:30; Admin Dose 2 MG; Start 03/16/19 at 17:30 Zolpidem Tartrate (Ambien) 5 mg QHS PRN PO .INSOMNIA Last administered on 03/04 00:47; Admin Dose 5 MG; Start 03/16/19 at 17:30 Docusate Sodium (Colace) 100 mg Q12H PO Last administered on 03/29/19at 06:20; Admin Dose 100 MG; Start 03/16/19 at 17:30 Bisacodyl (Dulcolax) 5 mg DAILY PRN PO .CONSTIPATION; Start 03/16/19 at 17:30 Miscellaneous Information 1 ea NOTE XX ; Start 03/16/19 at 18:00 Glucose (Glutose) 15 gm Q15M PRN PO DECREASED GLUCOSE; Start 03/16/19 at 18:00 Glucose (Glutose) 22.5 gm Q15M PRN PO DECREASED GLUCOSE; Start 03/16/19 at 18:00 Dextrose (D50w Syringe) 25 ml Q15M PRN IV DECREASED GLUCOSE; Start 03/16/19 at 18:00 Dextrose (D50w Syringe) 50 ml Q15M PRN IV DECREASED GLUCOSE; Start 03/16/19 at 18:00 Glucagon (Glucagen) 1 mg Q15M PRN IM DECREASED GLUCOSE; Start 03/16/19 at 18:00 Glucose (Glutose) 15 gm Q15M PRN BUCCAL DECREASED GLUCOSE; Start 03/16/19 at 18:00 Pantoprazole (Protonix Tab) 40 mg DAILY@06 PO Last administered on 03/29/19at 06 :20; Admin Dose 40 MG; Start 03/17/19 at 06:00 Tacrolimus (Prograf) 2 mg AM PO Last administered on 03/29/19at 08:25; Admin Dose 2 MG; Start 03/18/19 at 09:00 Mycophenolate Sodium (Myfortic) 180 mg Q12 PO Last administered on 03/29/19at 08:25; Admin Dose 180 MG; Start 03/17/19 at 21:00 Diagnostic Test (Pha) (Accu-Chek) 1 ea 02 XX Last administered on 03/29/19at 02:00; Admin Dose 1 EA; Start 03/18/19 at 02:00 Guaifenesin/ Dextromethorphan (Robitussin Dm Liquid Cup) 10 ml Q4H PRN PO COUGH; Start 03/18/19 at 14:30 Hydralazine HCl (Apresoline) 10 mg Q4H PRN IV ELEVATED BLOOD PRESSURE Last administered on 03/26/19at 03:56; Admin Dose 10 MG; Start 03/18/19 at 15:30 Metoclopramide HCl (Reglan) 5 mg TID PO Last administered on 03/29/19at 13:01; Admin Dose 5 MG; Start 03/18/19 at 17:00 Simethicone (Mylicon) 80 mg Q6H PRN PO DISTENSION/GAS/BLOATING Last administered on 03/26/19 04:34; Admin Dose 80 MG; Start 03/18/19 at 17:30 Insulin Aspart (Novolog Insulin Pen) NOVOLOG *MODERATE* ALGORITHM WITH MEALS BEDTIME SC Last administered on 03/29/19 12:13; Admin Dose 2 UNIT; Start 03/18/19 at 21:00 Sodium Bicarbonate (Sodium Bicarbonate Tab) 650 mg BID PO Last administered on 03/29/19 08:26; Admin Dose 650 MG; Start 03/19/19 at 14:00 Ergocalciferol (Drisdol) 50,000 unit Sutton@09 PO Last administered on 03/28/19 12:31; Admin Dose 50,000 UNIT; Start 03/21/19 at 09:00 Acetaminophen/ Hydrocodone Bitart ([place] (5/325)) 2 tab Q4H PRN PO MODERATE to sever 5-10 Last administered on 03/29/19 11:46; Admin Dose 2 TAB; Start 03/20/19 at 22:30 Albuterol/ Ipratropium (Duoneb) 3 ml Q4H RESP THERAPY PRN HHN SHORTNESS OF BREATH; Start 03/23/19 at 04:00 Albuterol/ Ipratropium (Duoneb) 3 ml Q6HWA RESP THERAPY HHN Last administered on 03/25/19 19:37; Admin Dose 3 ML; Start 03/23/19 at 20:00 Insulin Glargine (Lantus) 10 units DAILY@2000 SC Last administered on 03/28/19 21:04; Admin Dose 10 UNITS; Start 03/24/19 at 20:00 Levofloxacin (Levaquin) 250 mg Q48H PO Last administered on 03/29/19 12:01; Admin Dose 250 MG; Start 03/25/19 at 10:00 Tacrolimus (Prograf) 1 mg HS PO Last administered on 03/28/19 20:23; Admin Dose 1 MG; Start 03/26/19 at 21:00 Insulin Human NPH (Humulin N) 5 unit TID SC Last administered on 03/29/19 13:19; Admin Dose 5 UNIT; Start 03/26/19 at 21:00 Diphenhydramine HCl (Benadryl) 25 mg Q6H PRN IV FOR ITCHING Last administered on 03/27/19at 23:42; Admin Dose 25 MG; Start 03/27/19 at 23:30 Epoetin Fidencio-epbx (Retacrit (Esrd)) 3,000 unit MoWeFr@1700 SC ; Start 03/29/19 at 17:00 Multivit/Ca Carb/ B Cmplx/FA/Prenat (Alexandrea-Agustina) 1 tab DAILY PO Last administered on 03/29/19at 08:29; Admin Dose 1 TAB; Start 03/29/19 at 09:00 Epoetin Fidencio-epbx (Retacrit (Esrd)) 2,000 unit MoWeFr@1700 SC ; Start 03/29/19 at 17:00 Prednisone (Prednisone) 10 mg DAILY PO Last administered on 03/29/19at 08:28; Admin Dose 10 MG; Start 03/29/19 at 09:00 Dextrose (D50w Syringe) ONCE PRN IV DECREASED GLUCOSE; Start 03/29/19 at 10:30; Stop 03/29/19 at 19:00 LETI RODRIGUEZ March 29, 2019 16:29
[2019-03-29] MEDS: EPOETIN ALFA-EPBX (ESRD) 2,000 UNIT/ML VIAL SC SCH (17:00)
[2019-03-29] MEDS: EPOETIN ALFA-EPBX (ESRD) 3,000 UNIT/ML VIAL SC SCH (17:00)
[2019-03-29] MEDS ORDERED: SODIUM POLYSTYRENE 15 GM KIT (POWDER + SORBITOL) PR ONE (20:00)
[2019-03-29] MEDS: hydrALAzine 20 MG INJ IV PRN (22:09)
[2019-03-29] MEDS: INSULIN GLARGINE [LANTus] (100 UNITS/ML) SYG SC SCH (22:42)
[2019-03-29] MEDS ORDERED: INSULIN GLARGINE [LANTus] (100 UNITS/ML) SYG SC STA (23:22)
[2019-03-30] VITALS (9 sets, daily range): BP systolic 110–156; BP diastolic 48–81; PULSE 83–97; RESP 18–20
[2019-03-30] MEDS: ACCU-CHEK XX SCH (02:00)
[2019-03-30] MEDS: DOCUSATE SODIUM 100 MG CAP PO SCH ×2 (05:11→08:35)
[2019-03-30] MEDS: HYDROCODONE/APAP (5/325) TAB PO PRN ×4 (05:11→19:09)
[2019-03-30] MEDS: PANTOPRAZOLE (EC) 40 MG TAB PO SCH (05:11)
[2019-03-30] MEDS: INSULIN ASPART [NOVOLOG] 3 ML PEN SC SCH ×4 (07:55→22:25)
[2019-03-30] MEDS: ALBUTEROL/IPRATROPIUM (NEB) 3 ML AMP HHN SCH ×3 (08:00→19:43)
[2019-03-30] MEDS: MYCOPHENOLATE (SR) 180 MG TAB PO SCH ×2 (08:35→22:13)
[2019-03-30] MEDS: predniSONE 10 MG TAB PO SCH (08:36)
[2019-03-30] MEDS: MULTIVIT/CA CARB/B CMPLX/FA TAB PO SCH (08:36)
[2019-03-30] MEDS: ASPIRIN 81 MG TAB PO SCH (08:36)
[2019-03-30] MEDS: METOCLOPRAMIDE 5 MG TAB PO SCH ×3 (08:36→22:14)
[2019-03-30] MEDS: TACROLIMUS 1 MG CAP PO SCH ×2 (08:37→22:14)
[2019-03-30] MEDS: NA BICARBONATE 650 MG TAB PO SCH ×2 (08:37→22:14)
[2019-03-30] MEDS: BALSAM PERU/CASTOR OIL 60 GM TUBE TOP SCH (08:40)
[2019-03-30] MEDS: NPH, HUMAN INSULIN ISOPHANE 3ML VIAL SC SCH ×3 (08:45→22:39)
--- NOTE | 2019-03-30 15:44 | PN ---
DATE: 03/30/2019 SUBJECTIVE: The patient was stable this morning. No respiratory distress, appears comfortable. PHYSICAL EXAMINATION: VITAL SIGNS: Temperature 98, pulse 86, blood pressure 121/59, O2 saturation 96% on 2 L nasal cannula . NECK: Supple. No JVD or lymphadenopathy. CARDIAC: S1, S2, no added sounds or murmurs. CHEST: Diminished air entry bilaterally. ABDOMEN: Soft, nontender. No guarding or rebound. EXTREMITIES: No cyanosis, clubbing, or edema. NEUROLOGIC: Generalized weakness. LABORATORY DATA: White count 8.3, hemoglobin 7.3, platelets of 170. IMPRESSION AND PLAN: 1. Status post acute hypoxemic respiratory failure secondary to anemia. 2. Electrolyte abnormality. 3. Medication noncompliance. 4. History of renal transplant.: RECOMMENDATION: 1. Consider transfer to med/surg. 2. Encourage out of bed. 3. Discharge planning okay from pulmonary standpoint. Dictated By: EBONI MARKS/NAKIA Conf#: [id number] DID#: [id number]
[2019-03-30] MEDS: morphine 2 MG INJ IV PRN ×2 (16:50→22:41)
--- NOTE | 2019-03-30 17:17 | CONS ---
Assessment/Plan Assessment/Plan Assessment/Plan (Daily) Hospital Course (Demo Recall) 1. Hyperkalemia, could be secondary to worsening renal failure. 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 PT started on HD, not successful. The access in right groin is failed then now Pt refused new HD access 2. Abdominal pain with chills. 4. Acute on chronic renal failure. The patient had chronic kidney disease IV in the past with a creatinine of 3.2 to 3.4. It could be exacerbated by acute hemodynamic changes with sepsis. vs hydronephrosis vs ATN vs progression of disease, pt has underlying DM nephropathy 5. Elevated lipase. [facility] is notorious for very sensitive lipase level 6. Urinary tract infection. 7. Pneumonia. 8. Anemia, severe. Pt has a drop in Hg 9. History of hepatitis C. 10. History of donor renal transplantation. 11. metabolic acidosis likely secondary to renal failure 12. Non compliance. He had refused p.o. Kayexalate and Veltassa few times 13, Pneumonia 14. vit d deficiency Assessment/Plan (Daily) -HD catheter was removed and pt refused further HD access and says he wants to wait, explained to him about his labs, hyperkalemia but says he has time and he is depressed - plz call natty tejeda for adjustment of meds - cw prograft 2/`, mycophenolate - cw prednisone 10 mg - explained to him about necessity of HD currently but still refusing Consultation Date/Type/Reason Admit Date/Time March 17, 2019 at 13:23 Initial Consult Date Requesting Provider: LUPE KAPLAN MD Date/Time of Note DATE: 03/30/19 TIME: 17:12 24 HR Interval Summary Free Text/Dictation Talk to the patient in detail about hemodialysis Patient says that he did not have good experience with the catheter placement therefore requested removing it out spoke to him rega getting permcath vs ji> pt refused" need timet now " dont want cathether now told him that we can call anybody else for cathether placement but does not agree wants to wait feeling depressed Exam/Review of Systems Exam Vitals Vital Signs Date Temp Pulse Resp B/P (MAP) Pulse Ox O2 O2 Flow FiO2 Time Delivery Rate 03/30/19 92 16:01 03/30/19 98.1 18 130/49 98 15:20 (76) 03/30/19 Nasal 2.0 08:00 Cannula 03/29/19 33 02:29 Intake and Output 03/29/19 03/29/19 03/30/19 1515:00 23:00 07:00 IntakeIntake Total 100 ml 750 ml 250 ml OutputOutput Total 800 ml 600 ml BalanceBalance 100 ml -50 ml -350 ml Exam Constitutional: alert, oriented, thin Psych: depression Eyes: nl conjunctiva ENMT: nl external ears & nose Respiratory: dec breath sounds Cardiovascular: regular rate and rhythm Gastrointestinal: soft, RLQ kidney pre left AV graft Results Result Diagram: 03/30/19 0752 03/30/19 0752 Results 24hrs Laboratory Tests Test 03/29/19 21:42 03/29/19 23:14 03/30/19 02:56 03/30/19 06:31 Bedside Glucose 201 110 White Blood Count 7.4 Red Blood Count 2.44 #L Hemoglobin 7.7 #L Hematocrit 23.0 #L Mean Corpuscular 94.3 Volume Mean Corpuscular 31.6 Hemoglobin Mean Corpuscular 33.5 Hemoglobin Concen t Red Cell 15.7 H Distribution Width Platelet Count 164 Mean Platelet 10.0 Volume Immature 1.100 H Granulocytes % Neutrophils % 79.3 H Lymphocytes % 9.6 L Monocytes % 9.9 Eosinophils % 0.1 Basophils % 0.0 Nucleated Red 0.0 Blood Cells % Immature 0.080 H Granulocytes # Neutrophils # 5.9 Lymphocytes # 0.7 L Monocytes # 0.7 Eosinophils # 0.0 Basophils # 0.0 Nucleated Red 0.0 Blood Cells # Lab Scanned BLOOD TRANSFUSIO Report N Test 03/30/19 07:34 03/30/19 07:52 03/30/19 11:31 03/30/19 13:05 Bedside Glucose 107 73 100 White Blood Count 8.1 Red Blood Count 2.23 L Hemoglobin 7.3 L Hematocrit 21.4 L Mean Corpuscular 96.0 Volume Mean Corpuscular 32.7 Hemoglobin Mean Corpuscular 34.1 Hemoglobin Concen t Red Cell 16.6 H Distribution Width Platelet Count 170 Mean Platelet 9.9 Volume Immature 0.700 H Granulocytes % Neutrophils % 69.2 Lymphocytes % 16.7 Monocytes % 11.7 H Eosinophils % 1.6 Basophils % 0.1 Nucleated Red 0.0 Blood Cells % Immature 0.060 H Granulocytes # Neutrophils # 5.6 Lymphocytes # 1.4 Monocytes # 1.0 H Eosinophils # 0.1 Basophils # 0.0 Nucleated Red 0.0 Blood Cells # Sodium Level 134 L Potassium Level 4.9 Chloride Level 108 Carbon Dioxide 19 L Level Anion Gap 7 Blood Urea 111 H Nitrogen Creatinine 4.33 H Est Glomerular 14 L Filtrat Rate mL/min Glucose Level 55 #L Calcium Level 8.5 Test 03/30/19 16:56 Bedside Glucose 219 Medications Medication Current Medications IV Flush (NS 3 ml) 3 ml PER PROTOCOL IV ; Start 03/16/19 at 17:30 Ondansetron HCl (Zofran Inj) 4 mg Q6H PRN IV NAUSEA/VOMITING Last administered on 03/26/19at 05:58; Admin Dose 4 MG; Start 03/16/19 at 17:30 Aspirin (Aspirin) 81 mg DAILY PO Last administered on 03/30/19at 08:36; Admin Dose 81 MG; Start 03/17/19 at 09:00 Nitroglycerin (Nitroglycerin (Sl Tab) 0.4 Mg) 1 tab Q5M PRN SL .CHEST PAIN; Start 03/16/19 at 17:30 Acetaminophen (Tylenol Tab) 650 mg Q6H PRN PO .PAIN 1-3 OR TEMP; Start 03/16/19 at 17:30 Morphine Sulfate (morphine) 2 mg Q4H PRN IV .PAIN 7-10 Last administered on 03/30/19at 16:50; Admin Dose 2 MG; Start 03/16/19 at 17:30 Zolpidem Tartrate (Ambien) 5 mg QHS PRN PO .INSOMNIA Last administered on 03/29/19at 23:19; Admin Dose 5 MG; Start 03/16/19 at 17:30 Docusate Sodium (Colace) 100 mg Q12H PO Last administered on 03/30/19at 08:35; Admin Dose 100 MG; Start 03/16/19 at 17:30 Bisacodyl (Dulcolax) 5 mg DAILY PRN PO .CONSTIPATION; Start 03/16/19 at 17:30 Miscellaneous Information 1 ea NOTE XX ; Start 03/16/19 at 18:00 Glucose (Glutose) 15 gm Q15M PRN PO DECREASED GLUCOSE; Start 03/16/19 at 18:00 Glucose (Glutose) 22.5 gm Q15M PRN PO DECREASED GLUCOSE; Start 03/16/19 at 18:00 Dextrose (D50w Syringe) 25 ml Q15M PRN IV DECREASED GLUCOSE; Start 03/16/19 at 18:00 Dextrose (D50w Syringe) 50 ml Q15M PRN IV DECREASED GLUCOSE; Start 03/16/19 at 18:00 Glucagon (Glucagen) 1 mg Q15M PRN IM DECREASED GLUCOSE; Start 03/16/19 at 18:00 Glucose (Glutose) 15 gm Q15M PRN BUCCAL DECREASED GLUCOSE; Start 03/16/19 at 18:00 Pantoprazole (Protonix Tab) 40 mg DAILY@06 PO Last administered on 03/30/19at 05:11; Admin Dose 40 MG; Start 03/17/19 at 06:00 Tacrolimus (Prograf) 2 mg AM PO Last administered on 03/30/19at 08:37; Admin Dose 2 MG; Start 03/18/19 at 09:00 Mycophenolate Sodium (Myfortic) 180 mg Q12 PO Last administered on 03/30/19at 08:35; Admin Dose 180 MG; Start 03/17/19 at 21:00 Diagnostic Test (Pha) (Accu-Chek) 1 ea 02 XX Last administered on 03/30/19at 02:00; Admin Dose 1 EA; Start 03/18/19 at 02:00 Guaifenesin/ Dextromethorphan (Robitussin Dm Liquid Cup) 10 ml Q4H PRN PO COUGH; Start 03/18/19 at 14:30 Hydralazine HCl (Apresoline) 10 mg Q4H PRN IV ELEVATED BLOOD PRESSURE Last administered on 03/29/19at 22:09; Admin Dose 10 MG; Start 03/18/19 at 15:30 Metoclopramide HCl (Reglan) 5 mg TID PO Last administered on 03/30/19at 13:50; Admin Dose 5 MG; Start 03/18/19 at 17:00 Simethicone (Mylicon) 80 mg Q6H PRN PO DISTENSION/GAS/BLOATING Last administer ed on 03/26/19at 04:34; Admin Dose 80 MG; Start 03/18/19 at 17:30 Insulin Aspart (Novolog Insulin Pen) NOVOLOG *MODERATE* ALGORITHM WITH MEALS BEDTIME SC Last administered on 03/29/19 22:41; Admin Dose 1 UNIT; Start 03/18/19 at 21:00 Sodium Bicarbonate (Sodium Bicarbonate Tab) 650 mg BID PO Last administered on 03/30/19 08:37; Admin Dose 650 MG; Start 03/19/19 at 14:00 Ergocalciferol (Drisdol) 50,000 unit Sutton@09 PO Last administered on 03/28/19 12:31; Admin Dose 50,000 UNIT; Start 03/21/19 at 09:00 Acetaminophen/ Hydrocodone Bitart ([place] (5/325)) 2 tab Q4H PRN PO MODERATE to sever 5-10 Last administered on 03/30/19 13:51; Admin Dose 2 TAB; Start 03/20/19 at 22:30 Albuterol/ Ipratropium (Duoneb) 3 ml Q4H RESP THERAPY PRN HHN SHORTNESS OF BREATH; Start 03/23/19 at 04:00 Albuterol/ Ipratropium (Duoneb) 3 ml Q6HWA RESP THERAPY HHN Last administered on 03/29/19 19:57; Admin Dose 3 ML; Start 03/23/19 at 20:00 Insulin Glargine (Lantus) 10 units DAILY@2000 SC Last administered on 03/29/19 22:42; Admin Dose 10 UNITS; Start 03/24/19 at 20:00 Levofloxacin (Levaquin) 250 mg Q48H PO Last administered on 03/29/19 12:01; Admin Dose 250 MG; Start 03/25/19 at 10:00 Tacrolimus (Prograf) 1 mg HS PO Last administered on 03/29/19 21:27; Admin Dose 1 MG; Start 03/26/19 at 21:00 Insulin Human NPH (Humulin N) 5 unit TID SC Last administered on 03/30/19 08:45; Admin Dose 5 UNIT; Start 03/26/19 at 21:00 Diphenhydramine HCl (Benadryl) 25 mg Q6H PRN IV FOR ITCHING Last administered on 03/27/19 23:42; Admin Dose 25 MG; Start 03/27/19 at 23:30 Epoetin Fidencio-epbx (Retacrit (Esrd)) 3,000 unit MoWeFr@1700 SC ; Start 03/29/19 at 17:00 Multivit/Ca Carb/ B Cmplx/FA/Prenat (Alexandrea-Agustina) 1 tab DAILY PO Last administered on 03/30/19at 08:36; Admin Dose 1 TAB; Start 03/29/19 at 09:00 Epoetin Fidencio-epbx (Retacrit (Esrd)) 2,000 unit MoWeFr@1700 SC ; Start 03/29/19 at 17:00 Prednisone (Prednisone) 10 mg DAILY PO Last administered on 03/30/19at 08:36; Admin Dose 10 MG; Start 03/29/19 at 09:00 HARVINDER BLOOD MD March 30, 2019 17:17
--- NOTE | 2019-03-30 17:39 | CONS ---
Assessment/Plan Assessment/Plan Hospital Course (Demo Recall) # respiratory - dyspnea due to possible pneumonia vs. bronchiolitis - 03/24/19 CT Chest showed nodular consolidation in the left lower lobe is in keeping with bronchopneumonia and there is also multifocal bronchiolitis greatest in the left greater than right lower lobes that is likely also infe ctious. # musculoskeletal, dermatological - L should pain, possible DJD - h/o OM of R 4th digit: swelling with new erosive changes and osteopenia of the underlying R 4th distal phalanx, suggestive of osteomyelitis; wound culture grew Serratia on 03/18/18 and Serratia + CoNS (likely colonizer) on 04/04/18 ; Pt declined amputation. ESR 39 on 03/18/2018. S/p Levaquin x 6 weeks - Hx mild subtle increased activity within the upper aspect of LUE, nonspecific, on WBC tagged scan on 04/05/2018 - Hx OM of R 3rd fingertip (XR showed periosteal reaction at the tip of R 3rd distal phalanx, suspicious for OM, MRI showed cellulitis of distal R 4th phalanx, without OM) and L 2nd fingertip (XR showed cortical irregularity at the tuft of L 2nd distal phalanx with overlying soft tissue defect, suggesting early OM, MRI showed OM at L 2nd distal phalanx with, cellulitis about L 2nd distal phalanx without drainable fluid collection.) - Hx OM of R 2nd finger s/p amputation at proximal phalanx neck, and h/o OM of L 3rd finger s/p amputation at middle and distal phalanges - h/o onychomycosis, tinea pedis - Seen by Computer Systems Architect during last admit # cardiovascular, heme - HTN - h/o BLE atherosclerosis - Seen by Vascular Surgery in the past - Anemia of chronic disease with h/o pernicious anemia - h/o thrombosed graft of LUE # renal/uro - recurrent acute on chronic renal failure - h/o calcification of the vas deferens with a persistent hydrocele within the scrotum per CT 01/12/19 - ho MRSA and K. pneumoniae in urine culture on 12/09/2018 - UA was neg for pyuria - Hx ESRD, was on HD. Pt declined placement of a new HD catheter - S/p renal transplant in 2009 (on tacrolimus, mycophenolate and prednisone), chronic renal insufficiency at baseline # bacteremia, history of endocarditis - h/o bacteremia d/t MSSA 12/09/2018 - Dr. Olmstead rec'd call from [facility] 01/15/19 regarding this; Pt completed cefazolin through the end of 01/2019 # endo and GI - DM - Dyslipidemia - H/o hematoma within the right lateral abdominal wall musculature which has developed since the previous study done 12/13/2018 measuring 7.3 x 4.6 cm in cross diameter and extending an acrylic that dimension approximately 10.7 cm from the level of the superior pole of the [place] right kidney to just inferior to the right iliac crest per CT 01/12/19 - Hx Juan's esophagus and gastritis s/p EGD on 08/12/2017. No H. pylori on Bx - Hx hyperparathyroidism - Chronic HCV infection # other conditions - Rheumatoid arthritis - Hx polysubstance and IV drug use. - Major depressive disorder Recommendation: - pending results: coccidioides, cryptococcus antigen - ordered: XR of L shoulder - Complete 5 days of levofloxacin (03/25/19 - ) management d/w Pt and his RN Marvin Consultation Date/Type/Reason Admit Date/Time March 17, 2019 at 13:23 Initial Consult Date 03/25/19 Type of Consult ID Requesting Provider: LUPE KAPLAN MD Date/Time of Note DATE: 03/30/19 TIME: 17:30 24 HR Interval Summary Constitutional: other (pain of L shoulder) Detailed Summary Eyes: no complaints ENT: no complaints Respiratory: no complaints Cardiovascular: no complaints Gastrointestinal: no complaints Genitourinary: other (does not want a HD catheter) Musculoskeletal: bone/joint pain (L shoulder), restricted range of motion Skin: no complaints Exam/Review of Systems Exam Vitals Vital Signs Date Temp Pulse Resp B/P (MAP) Pulse Ox O2 O2 Flow FiO2 Time Delivery Rate 03/30/19 92 16:01 03/30/19 98.1 18 130/49 98 15:20 (76) 03/30/19 Nasal 2.0 08:00 Cannula 03/29/19 33 02:29 Intake and Output 03/29/19 03/29/19 03/30/19 1515:00 23:00 07:00 IntakeIntake Total 100 ml 750 ml 250 ml OutputOutput Total 800 ml 600 ml BalanceBalance 100 ml -50 ml -350 ml Constitutional: distress (drying in pain) Psych: other (crying in pain) Head: normocephalic Eyes: nl conjunctiva, nl lids ENMT: nl external ears & nose, nl nasal mucosa & septum Neck: supple Respiratory: diminished breath sounds Cardiovascular: regular rate and rhythm, nl pulses Gastrointestinal: soft; No distended Musculoskeletal: joint tenderness (L posterior shoulder), range of motion (limited LUE); No swelling Extremities: No edema 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: SUPERVISOR INCISING II-XII intact, nl mental status, nl speech Skin: nl turgor; No rash or lesions Results Result Diagram: 03/30/19 0752 03/30/19 0752 Results 24hrs Laboratory Tests Test 03/29/19 21:42 03/29/19 23:14 03/30/19 02:56 03/30/19 06:31 Bedside Glucose 201 110 White Blood Count 7.4 Red Blood Count 2.44 #L Hemoglobin 7.7 #L Hematocrit 23.0 #L Mean Corpuscular 94.3 Volume Mean Corpuscular 31.6 Hemoglobin Mean Corpuscular 33.5 Hemoglobin Concen t Red Cell 15.7 H Distribution Width Platelet Count 164 Mean Platelet 10.0 Volume Immature 1.100 H Granulocytes % Neutrophils % 79.3 H Lymphocytes % 9.6 L Monocytes % 9.9 Eosinophils % 0.1 Basophils % 0.0 Nucleated Red 0.0 Blood Cells % Immature 0.080 H Granulocytes # Neutrophils # 5.9 Lymphocytes # 0.7 L Monocytes # 0.7 Eosinophils # 0.0 Basophils # 0.0 Nucleated Red 0.0 Blood Cells # Lab Scanned BLOOD TRANSFUSIO Report N Test 03/30/19 07:34 03/30/19 07:52 03/30/19 11:31 03/30/19 13:05 Bedside Glucose 107 73 100 White Blood Count 8.1 Red Blood Count 2.23 L Hemoglobin 7.3 L Hematocrit 21.4 L Mean Corpuscular 96.0 Volume Mean Corpuscular 32.7 Hemoglobin Mean Corpuscular 34.1 Hemoglobin Concen t Red Cell 16.6 H Distribution Width Platelet Count 170 Mean Platelet 9.9 Volume Immature 0.700 H Granulocytes % Neutrophils % 69.2 Lymphocytes % 16.7 Monocytes % 11.7 H Eosinophils % 1.6 Basophils % 0.1 Nucleated Red 0.0 Blood Cells % Immature 0.060 H Granulocytes # Neutrophils # 5.6 Lymphocytes # 1.4 Monocytes # 1.0 H Eosinophils # 0.1 Basophils # 0.0 Nucleated Red 0.0 Blood Cells # Sodium Level 134 L Potassium Level 4.9 Chloride Level 108 Carbon Dioxide 19 L Level Anion Gap 7 Blood Urea 111 H Nitrogen Creatinine 4.33 H Est Glomerular 14 L Filtrat Rate mL/min Glucose Level 55 #L Calcium Level 8.5 Test 03/30/19 16:56 Bedside Glucose 219 Medications Medication Current Medications IV Flush (NS 3 ml) 3 ml PER PROTOCOL IV ; Start 03/16/19 at 17:30 Ondansetron HCl (Zofran Inj) 4 mg Q6H PRN IV NAUSEA/VOMITING Last administered on 03/26/19at 05:58; Admin Dose 4 MG; Start 03/16/19 at 17:30 Aspirin (Aspirin) 81 mg DAILY PO Last administered on 03/30/19at 08:36; Admin Dose 81 MG; Start 03/17/19 at 09:00 Nitroglycerin (Nitroglycerin (Sl Tab) 0.4 Mg) 1 tab Q5M PRN SL .CHEST PAIN; Start 03/16/19 at 17:30 Acetaminophen (Tylenol Tab) 650 mg Q6H PRN PO .PAIN 1-3 OR TEMP; Start 03/16/19 at 17:30 Morphine Sulfate (morphine) 2 mg Q4H PRN IV .PAIN 7-10 Last administered on 03/30/19at 16:50; Admin Dose 2 MG; Start 03/16/19 at 17:30 Zolpidem Tartrate (Ambien) 5 mg QHS PRN PO .INSOMNIA Last administered on 03/29/19at 23:19; Admin Dose 5 MG; Start 03/16/19 at 17:30 Docusate Sodium (Colace) 100 mg Q12H PO Last administered on 03/30/19at 08:35; Admin Dose 100 MG; Start 03/16/19 at 17:30 Bisacodyl (Dulcolax) 5 mg DAILY PRN PO .CONSTIPATION; Start 03/16/19 at 17:30 Miscellaneous Information 1 ea NOTE XX ; Start 03/16/19 at 18:00 Glucose (Glutose) 15 gm Q15M PRN PO DECREASED GLUCOSE; Start 03/16/19 at 18:00 Glucose (Glutose) 22.5 gm Q15M PRN PO DECREASED GLUCOSE; Start 03/16/19 at 18:00 Dextrose (D50w Syringe) 25 ml Q15M PRN IV DECREASED GLUCOSE; Start 03/16/19 at 18:00 Dextrose (D50w Syringe) 50 ml Q15M PRN IV DECREASED GLUCOSE; Start 03/16/19 at 18:00 Glucagon (Glucagen) 1 mg Q15M PRN IM DECREASED GLUCOSE; Start 03/16/19 at 18:00 Glucose (Glutose) 15 gm Q15M PRN BUCCAL DECREASED GLUCOSE; Start 03/16/19 at 18:00 Pantoprazole (Protonix Tab) 40 mg DAILY@06 PO Last administered on 03/30/19at 05:11; Admin Dose 40 MG; Start 03/17/19 at 06:00 Tacrolimus (Prograf) 2 mg AM PO Last administered on 03/30/19at 08:37; Admin Dose 2 MG; Start 03/18/19 at 09:00 Mycophenolate Sodium (Myfortic) 180 mg Q12 PO Last administered on 03/30/19at 08:35; Admin Dose 180 MG; Start 03/17/19 at 21:00 Diagnostic Test (Pha) (Accu-Chek) 1 ea 02 XX Last administered on 03/30/19at 02:00; Admin Dose 1 EA; Start 03/18/19 at 02:00 Guaifenesin/ Dextromethorphan (Robitussin Dm Liquid Cup) 10 ml Q4H PRN PO COUGH; Start 03/18/19 at 14:30 Hydralazine HCl (Apresoline) 10 mg Q4H PRN IV ELEVATED BLOOD PRESSURE Last administered on 03/29/19at 22:09; Admin Dose 10 MG; Start 03/18/19 at 15:30 Metoclopramide HCl (Reglan) 5 mg TID PO Last administered on 03/30/19at 13:50; Admin Dose 5 MG; Start 03/18/19 at 17:00 Simethicone (Mylicon) 80 mg Q6H PRN PO DISTENSION/GAS/BLOATING Last administered on 03/26/19 04:34; Admin Dose 80 MG; Start 03/18/19 at 17:30 Insulin Aspart (Novolog Insulin Pen) NOVOLOG *MODERATE* ALGORITHM WITH MEALS BEDTIME SC Last administered on 03/29/19 22:41; Admin Dose 1 UNIT; Start 03/18/19 at 21:00 Sodium Bicarbonate (Sodium Bicarbonate Tab) 650 mg BID PO Last administered on 03/30/19 08:37; Admin Dose 650 MG; Start 03/19/19 at 14:00 Ergocalciferol (Drisdol) 50,000 unit Sutton@09 PO Last administered on 03/28/19 12:31; Admin Dose 50,000 UNIT; Start 03/21/19 at 09:00 Acetaminophen/ Hydrocodone Bitart ([place] (5/325)) 2 tab Q4H PRN PO MODERATE to sever 5-10 Last administered on 03/30/19 13:51; Admin Dose 2 TAB; Start 03/20/19 at 22:30 Albuterol/ Ipratropium (Duoneb) 3 ml Q4H RESP THERAPY PRN HHN SHORTNESS OF BREATH; Start 03/23/19 at 04:00 Albuterol/ Ipratropium (Duoneb) 3 ml Q6HWA RESP THERAPY HHN Last administered on 03/29/19 19:57; Admin Dose 3 ML; Start 03/23/19 at 20:00 Insulin Glargine (Lantus) 10 units DAILY@2000 SC Last administered on 03/29/19 22:42; Admin Dose 10 UNITS; Start 03/24/19 at 20:00 Levofloxacin (Levaquin) 250 mg Q48H PO Last administered on 03/29/19 12:01; Admin Dose 250 MG; Start 03/25/19 at 10:00 Tacrolimus (Prograf) 1 mg HS PO Last administered on 03/29/19 21:27; Admin Dose 1 MG; Start 03/26/19 at 21:00 Insulin Human NPH (Humulin N) 5 unit TID SC Last administered on 03/30/19 08:45; Admin Dose 5 UNIT; Start 03/26/19 at 21:00 Diphenhydramine HCl (Benadryl) 25 mg Q6H PRN IV FOR ITCHING Last administered on 03/27/19 23:42; Admin Dose 25 MG; Start 03/27/19 at 23:30 Epoetin Fidencio-epbx (Retacrit (Esrd)) 3,000 unit MoWeFr@1700 SC ; Start 03/29/19 at 17:00 Multivit/Ca Carb/ B Cmplx/FA/Prenat (Alexandrea-Agustina) 1 tab DAILY PO Last administered on 03/30/19at 08:36; Admin Dose 1 TAB; Start 03/29/19 at 09:00 Epoetin Fidencio-epbx (Retacrit (Esrd)) 2,000 unit MoWeFr@1700 SC ; Start 03/29/19 at 17:00 Prednisone (Prednisone) 10 mg DAILY PO Last administered on 03/30/19at 08:36; Admin Dose 10 MG; Start 03/29/19 at 09:00 MAGO VAIL M.D. March 30, 2019 17:39
--- NOTE | 2019-03-30 19:10 | PN ---
Date/Time of Note Date/Time of Note DATE: 03/30/19 TIME: 19:06 Assessment/Plan VTE Prophylaxis Risk score (from Ns)>0 risk: 5 SCD applied (from Ns): Yes Pharmacological prophylaxis: NA/contraindicated Pharm contraindication: anticoag not tolerated Lines/Catheters IV [facility]from [facility] Mid Line Urinary Cath still in place: No Assessment/Plan Hospital Course Patient status post blood transfusion last night, hemoglobin is 7.3. Patient refused Epogen yesterday discussed the importance of medical compliance. Patient is status post right femoral hemodialysis catheter removal. Patient complains of left shoulder pain, left shoulder shoulder x-rays pending, patient requested additional pain medication. Assessment/Plan -Left lower lobe is in keeping with bronchopneumonia and multifocal bronchiolitis greatest in the left. Dr. Bush is following in pulmonology consultation. Continue Levaquin and prednisone. -Possible sepsis secondary to possible pneumonia and UTI, s/p Rocephin. Dr. Olmstead is following in infection disease consultation. -Acute renal failure on chronic kidney disease stage IV, status post cadaveric kidney transplant [place] [address]. Dr[address] Allen is following in nephrology consultation. -Hyperkalemia, status post Kayexalate -Moderate hydronephrosis, Dr. Noguera is following in urology consultation. -Possible pancreatitis, monitor lipase -Diabetes mellitus type 2 with diabetic neuropathy. HbgA1C is 6.2. Continue Tradjenta, Lantus and NovoLog. -Hypertension. -Anemia -Chronic HCV infection -Rheumatoid arthritis -History of polysubstance and IV drug use -Poor medical compliance Further recommendations based on clinical course. Plan of care discussed with Dr. Maier. Result Diagram: 03/30/19 0752 03/30/19 0752 Results 24hrs Laboratory Tests Test 03/29/19 21:42 03/29/19 23:14 03/30/19 02:56 03/30/19 06:31 Bedside Glucose 201 110 White Blood Count 7.4 Red Blood Count 2.44 #L Hemoglobin 7.7 #L Hematocrit 23.0 #L Mean Corpuscular 94.3 Volume Mean Corpuscular 31.6 Hemoglobin Mean Corpuscular 33.5 Hemoglobin Concen t Red Cell 15.7 H Distribution Width Platelet Count 164 Mean Platelet 10.0 Volume Immature 1.100 H Granulocytes % Neutrophils % 79.3 H Lymphocytes % 9.6 L Monocytes % 9.9 Eosinophils % 0.1 Basophils % 0.0 Nucleated Red 0.0 Blood Cells % Immature 0.080 H Granulocytes # Neutrophils # 5.9 Lymphocytes # 0.7 L Monocytes # 0.7 Eosinophils # 0.0 Basophils # 0.0 Nucleated Red 0.0 Blood Cells # Lab Scanned BLOOD TRANSFUSIO Report N Test 03/30/19 07:34 03/30/19 07:52 03/30/19 11:31 03/30/19 13:05 Bedside Glucose 107 73 100 White Blood Count 8.1 Red Blood Count 2.23 L Hemoglobin 7.3 L Hematocrit 21.4 L Mean Corpuscular 96.0 Volume Mean Corpuscular 32.7 Hemoglobin Mean Corpuscular 34.1 Hemoglobin Concen t Red Cell 16.6 H Distribution Width Platelet Count 170 Mean Platelet 9.9 Volume Immature 0.700 H Granulocytes % Neutrophils % 69.2 Lymphocytes % 16.7 Monocytes % 11.7 H Eosinophils % 1.6 Basophils % 0.1 Nucleated Red 0.0 Blood Cells % Immature 0.060 H Granulocytes # Neutrophils # 5.6 Lymphocytes # 1.4 Monocytes # 1.0 H Eosinophils # 0.1 Basophils # 0.0 Nucleated Red 0.0 Blood Cells # Sodium Level 134 L Potassium Level 4.9 Chloride Level 108 Carbon Dioxide 19 L Level Anion Gap 7 Blood Urea 111 H Nitrogen Creatinine 4.33 H Est Glomerular 14 L Filtrat Rate mL/min Glucose Level 55 #L Calcium Level 8.5 Test 03/30/19 16:56 Bedside Glucose 219 Exam/Review of Systems Exam Vitals Vital Signs Date Temp Pulse Resp B/P (MAP) Pulse Ox O2 O2 Flow FiO2 Time Delivery Rate 03/30/19 3.0 18:20 03/30/19 92 16:01 03/30/19 98.1 18 130/49 98 15:20 (76) 03/30/19 Nasal 08:00 Cannula 03/29/19 33 02:29 Intake and Output 03/29/19 03/29/19 03/30/19 1515:00 23:00 07:00 IntakeIntake Total 100 ml 750 ml 250 ml OutputOutput Total 800 ml 600 ml BalanceBalance 100 ml -50 ml -350 ml Exam Constitutional: alert, oriented Respiratory: clear to auscultation Cardiovascular: regular rate and rhythm Gastrointestinal: soft, tender Musculoskeletal: nl extremities to inspection Extremities: normal pulses 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: nl mental status Results Results 24hrs Laboratory Tests Test 03/29/19 21:42 03/29/19 23:14 03/30/19 02:56 03/30/19 06:31 Bedside Glucose 201 110 White Blood Count 7.4 Red Blood Count 2.44 #L Hemoglobin 7.7 #L Hematocrit 23.0 #L Mean Corpuscular 94.3 Volume Mean Corpuscular 31.6 Hemoglobin Mean Corpuscular 33.5 Hemoglobin Concen t Red Cell 15.7 H Distribution Width Platelet Count 164 Mean Platelet 10.0 Volume Immature 1.100 H Granulocytes % Neutrophils % 79.3 H Lymphocytes % 9.6 L Monocytes % 9.9 Eosinophils % 0.1 Basophils % 0.0 Nucleated Red 0.0 Blood Cells % Immature 0.080 H Granulocytes # Neutrophils # 5.9 Lymphocytes # 0.7 L Monocytes # 0.7 Eosinophils # 0.0 Basophils # 0.0 Nucleated Red 0.0 Blood Cells # Lab Scanned BLOOD TRANSFUSIO Report N Test 03/30/19 07:34 03/30/19 07:52 03/30/19 11:31 03/30/19 13:05 Bedside Glucose 107 73 100 White Blood Count 8.1 Red Blood Count 2.23 L Hemoglobin 7.3 L Hematocrit 21.4 L Mean Corpuscular 96.0 Volume Mean Corpuscular 32.7 Hemoglobin Mean Corpuscular 34.1 Hemoglobin Concen t Red Cell 16.6 H Distribution Width Platelet Count 170 Mean Platelet 9.9 Volume Immature 0.700 H Granulocytes % Neutrophils % 69.2 Lymphocytes % 16.7 Monocytes % 11.7 H Eosinophils % 1.6 Basophils % 0.1 Nucleated Red 0.0 Blood Cells % Immature 0.060 H Granulocytes # Neutrophils # 5.6 Lymphocytes # 1.4 Monocytes # 1.0 H Eosinophils # 0.1 Basophils # 0.0 Nucleated Red 0.0 Blood Cells # Sodium Level 134 L Potassium Level 4.9 Chloride Level 108 Carbon Dioxide 19 L Level Anion Gap 7 Blood Urea 111 H Nitrogen Creatinine 4.33 H Est Glomerular 14 L Filtrat Rate mL/min Glucose Level 55 #L Calcium Level 8.5 Test 03/30/19 16:56 Bedside Glucose 219 Medications Medication Current Medications IV Flush (NS 3 ml) 3 ml PER PROTOCOL IV ; Start 03/16/19 at 17:30 Ondansetron HCl (Zofran Inj) 4 mg Q6H PRN IV NAUSEA/VOMITING Last administered on 03/26/19at 05:58; Admin Dose 4 MG; Start 03/16/19 at 17:30 Aspirin (Aspirin) 81 mg DAILY PO Last administered on 03/30/19at 08:36; Admin Dose 81 MG; Start 03/17/19 at 09:00 Nitroglycerin (Nitroglycerin (Sl Tab) 0.4 Mg) 1 tab Q5M PRN SL .CHEST PAIN; Start 03/16/19 at 17:30 Acetaminophen (Tylenol Tab) 650 mg Q6H PRN PO .PAIN 1-3 OR TEMP; Start 03/16/19 at 17:30 Morphine Sulfate (morphine) 2 mg Q4H PRN IV .PAIN 7-10 Last administered on 03/30/19at 16:50; Admin Dose 2 MG; Start 03/16/19 at 17:30 Zolpidem Tartrate (Ambien) 5 mg QHS PRN PO .INSOMNIA Last administered on 03/29/19at 23:19; Admin Dose 5 MG; Start 03/16/19 at 17:30 Docusate Sodium (Colace) 100 mg Q12H PO Last administered on 03/30/19at 08:35; Admin Dose 100 MG; Start 03/16/19 at 17:30 Bisacodyl (Dulcolax) 5 mg DAILY PRN PO .CONSTIPATION; Start 03/16/19 at 17:30 Miscellaneous Information 1 ea NOTE XX ; Start 03/16/19 at 18:00 Glucose (Glutose) 15 gm Q15M PRN PO DECREASED GLUCOSE; Start 03/16/19 at 18:00 Glucose (Glutose) 22.5 gm Q15M PRN PO DECREASED GLUCOSE; Start 03/16/19 at 18:00 Dextrose (D50w Syringe) 25 ml Q15M PRN IV DECREASED GLUCOSE; Start 03/16/19 at 18:00 Dextrose (D50w Syringe) 50 ml Q15M PRN IV DECREASED GLUCOSE; Start 03/16/19 at 18:00 Glucagon (Glucagen) 1 mg Q15M PRN IM DECREASED GLUCOSE; Start 03/16/19 at 18:00 Glucose (Glutose) 15 gm Q15M PRN BUCCAL DECREASED GLUCOSE; Start 03/16/19 at 18:00 Pantoprazole (Protonix Tab) 40 mg DAILY@06 PO Last administered on 03/30/19 05:11; Admin Dose 40 MG; Start 03/17/19 at 06:00 Tacrolimus (Prograf) 2 mg AM PO Last administered on 03/30/19 08:37; Admin Dose 2 MG; Start 03/18/19 at 09:00 Mycophenolate Sodium (Myfortic) 180 mg Q12 PO Last administered on 03/30/19 08:35; Admin Dose 180 MG; Start 03/17/19 at 21:00 Diagnostic Test (Pha) (Accu-Chek) 1 ea 02 XX Last administered on 03/30/19 02:00; Admin Dose 1 EA; Start 03/18/19 at 02:00 Guaifenesin/ Dextromethorphan (Robitussin Dm Liquid Cup) 10 ml Q4H PRN PO COUGH; Start 03/18/19 at 14:30 Hydralazine HCl (Apresoline) 10 mg Q4H PRN IV ELEVATED BLOOD PRESSURE Last administered on 03/29/19 22:09; Admin Dose 10 MG; Start 03/18/19 at 15:30 Metoclopramide HCl (Reglan) 5 mg TID PO Last administered on 03/30/19 13:50; Admin Dose 5 MG; Start 03/18/19 at 17:00 Simethicone (Mylicon) 80 mg Q6H PRN PO DISTENSION/GAS/BLOATING Last administered on 03/26/19 04:34; Admin Dose 80 MG; Start 03/18/19 at 17:30 Insulin Aspart (Novolog Insulin Pen) NOVOLOG *MODERATE* ALGORITHM WITH MEALS BEDTIME SC Last administered on 03/30/19 17:42; Admin Dose 4 UNIT; Start 03/18/19 at 21:00 Sodium Bicarbonate (Sodium Bicarbonate Tab) 650 mg BID PO Last administered on 03/30/19 08:37; Admin Dose 650 MG; Start 03/19/19 at 14:00 Ergocalciferol (Drisdol) 50,000 unit [place]@09 PO Last administered on 03/28/19 12:31; Admin Dose 50,000 UNIT; Start 03/21/19 at 09:00 Acetaminophen/ Hydrocodone Bitart ([place] (5/325)) 2 tab Q4H PRN PO MODERATE to sever 5-10 Last administered on 03/30/19 13:51; Admin Dose 2 TAB; Start at 22:30 Albuterol/ Ipratropium (Duoneb) 3 ml Q4H RESP THERAPY PRN HHN SHORTNESS OF BREATH; Start 03/23/19 at 04:00 Albuterol/ Ipratropium (Duoneb) 3 ml Q6HWA RESP THERAPY HHN Last administered on 03/29/19 19:57; Admin Dose 3 ML; Start 03/23/19 at 20:00 Insulin Glargine (Lantus) 10 units DAILY@2000 SC Last administered on 03/29/19 22:42; Admin Dose 10 UNITS; Start 03/24/19 at 20:00 Levofloxacin (Levaquin) 250 mg Q48H PO Last administered on 03/29/19 12:01; Admin Dose 250 MG; Start 03/25/19 at 10:00; Stop 03/30/19 at 23:59 Tacrolimus (Prograf) 1 mg HS PO Last administered on 03/29/19 21:27; Admin Dose 1 MG; Start 03/26/19 at 21:00 Insulin Human NPH (Humulin N) 5 unit TID SC Last administered on 03/30/19 08:45; Admin Dose 5 UNIT; Start 03/26/19 at 21:00 Diphenhydramine HCl (Benadryl) 25 mg Q6H PRN IV FOR ITCHING Last administered on 03/27/19 23:42; Admin Dose 25 MG; Start 03/27/19 at 23:30 Epoetin Fidencio-epbx (Retacrit (Esrd)) 3,000 unit MoWeFr@1700 SC ; Start 03/29/19 at 17:00 Multivit/Ca Carb/ B Cmplx/FA/Prenat (Alexandrea-Agustina) 1 tab DAILY PO Last administered on 03/30/19 08:36; Admin Dose 1 TAB; Start 03/29/19 at 09:00 Epoetin Fidencio-epbx (Retacrit (Esrd)) 2,000 unit MoWeFr@1700 SC ; Start 5/27/19 at 17:00 Prednisone (Prednisone) 10 mg DAILY PO Last administered on 03/30/19at 08:36; Admin Dose 10 MG; Start 03/29/19 at 09:00 LETI RODRIGUEZ March 30, 2019 19:10
[2019-03-30] MEDS: INSULIN GLARGINE [LANTus] (100 UNITS/ML) SYG SC SCH (22:26)
[2019-03-31] VITALS (12 sets, daily range): BP systolic 100–142; BP diastolic 40–62; PULSE 78–100; RESP 18–20
[2019-03-31] MEDS: HYDROCODONE/APAP (5/325) TAB PO PRN ×4 (02:37→21:22)
[2019-03-31] MEDS: ACCU-CHEK XX SCH (02:38)
[2019-03-31] MEDS: PANTOPRAZOLE (EC) 40 MG TAB PO SCH (05:30)
[2019-03-31] MEDS: DOCUSATE SODIUM 100 MG CAP PO SCH ×2 (05:30→17:27)
[2019-03-31] MEDS: morphine 2 MG INJ IV PRN ×2 (06:44→12:06)
[2019-03-31] MEDS: INSULIN ASPART [NOVOLOG] 3 ML PEN SC SCH ×4 (07:53→21:35)
[2019-03-31] MEDS: ALBUTEROL/IPRATROPIUM (NEB) 3 ML AMP HHN SCH ×3 (08:38→21:05)
[2019-03-31] MEDS: NA BICARBONATE 650 MG TAB PO SCH ×2 (09:34→21:21)
[2019-03-31] MEDS: MYCOPHENOLATE (SR) 180 MG TAB PO SCH ×2 (09:34→21:21)
[2019-03-31] MEDS: ASPIRIN 81 MG TAB PO SCH (09:34)
[2019-03-31] MEDS: METOCLOPRAMIDE 5 MG TAB PO SCH ×3 (09:35→21:22)
[2019-03-31] MEDS: MULTIVIT/CA CARB/B CMPLX/FA TAB PO SCH (09:35)
[2019-03-31] MEDS: predniSONE 10 MG TAB PO SCH (09:35)
[2019-03-31] MEDS: TACROLIMUS 1 MG CAP PO SCH ×2 (09:35→21:21)
[2019-03-31] MEDS: BALSAM PERU/CASTOR OIL 60 GM TUBE TOP SCH (09:36)
--- NOTE | 2019-03-31 10:16 | CONS ---
Assessment/Plan Assessment/Plan Assessment/Plan (Daily) Hospital Course (Demo Recall) 1. Hyperkalemia, could be secondary to worsening renal failure. 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 PT started on HD, not successful. The access in right groin is failed then now; Pt refused new HD access 2. Abdominal pain with chills. 4. Acute on chronic renal failure. The patient had chronic kidney disease IV in the past with a creatinine of 3.2 to 3.4. It could be exacerbated by acute hemodynamic changes with sepsis. vs hydronephrosis vs ATN vs progression of disease, pt has underlying DM nephropathy 5. Elevated lipase. [facility] is notorious for very sensitive lipase level 6. Urinary tract infection. 7. Pneumonia. 8. Anemia, severe. Pt has a drop in Hg 9. History of hepatitis C. 10. History of donor renal transplantation. 11. metabolic acidosis likely secondary to renal failure 12. Non compliance. He had refused p.o. Kayexalate and Veltassa few times 13, Pneumonia 14. vit d deficiency Assessment/Plan (Daily) -HD catheter was removed and pt refused further HD access and says he wants to wait, explained to him about his labs, hyperkalemia but says he has time -He is also been refusing most of his medications/Epogen - He is not Not ready for hemodialysis - once cleared by pscy , consider discharge as refusing interventions - today labs pending - cw prograft 2/2`, mycophenolate - cw prednisone 10 mg> 5 mg on dc on dc pt will need close fu with either Dr Meyers in 1 week with [facility] or [facility] since he follows there for transplant Consultation Date/Type/Reason Admit Date/Time March 17, 2019 at 13:23 Initial Consult Date Requesting Provider: LUPE KAPLAN MD Date/Time of Note DATE: 03/31/19 TIME: 10:12 24 HR Interval Summary Free Text/Dictation HE has been refusing most of his meds. Has been refusing Epogen. He says that his last potassium was fine and does not feel that he needs to be on hemodialysis. Patient wants to wait before being started on hemodialysis again Exam/Review of Systems Exam Vitals Vital Signs Date Temp Pulse Resp B/P (MAP) Pulse Ox O2 O2 Flow FiO2 Time Delivery Rate 03/31/19 Nasal 2.0 09:40 Cannula 03/31/19 85 18 98 08:48 03/31/19 98.2 129/51 07:27 (77) 03/29/19 33 02:29 Intake and Output 03/30/19 03/30/19 03/31/19 1515:00 23:00 07:00 IntakeIntake Total 400 ml 650 ml OutputOutput Total 600 ml 500 ml BalanceBalance -200 ml 150 ml Exam Constitutional: alert, oriented, thin Psych: depression Eyes: nl conjunctiva ENMT: nl external ears & nose Respiratory: dec breath sounds Cardiovascular: regular rate and rhythm Gastrointestinal: soft, RLQ kidney pre left AV graft Results Result Diagram: 03/31/19 0930 03/30/19 0752 Results 24hrs Laboratory Tests Test 03/30/19 11:31 03/30/19 13:05 03/30/19 16:56 03/30/19 22:13 Bedside Glucose 73 100 219 291 H Test 03/31/19 02:33 03/31/19 07:52 03/31/19 09:30 Bedside Glucose 160 85 White Blood Count 6.6 Red Blood Count 1.89 L Hemoglobin 6.1 *L Hematocrit 18.8 L Mean Corpuscular 99.5 Volume Mean Corpuscular 32.3 Hemoglobin Mean Corpuscular 32.4 Hemoglobin Concent Red Cell 16.3 H Distribution Width Platelet Count 173 Mean Platelet Volume 9.8 Immature 0.800 H Granulocytes % Neutrophils % 69.4 Lymphocytes % 16.6 Monocytes % 9.5 Eosinophils % 3.5 Basophils % 0.2 Nucleated Red Blood 0.0 Cells % Immature 0.050 H Granulocytes # Neutrophils # 4.6 Lymphocytes # 1.1 Monocytes # 0.6 Eosinophils # 0.2 Basophils # 0.0 Nucleated Red Blood 0.0 Cells # Pathologist YES Review (Hematology) Medications Medication Current Medications IV Flush (NS 3 ml) 3 ml PER PROTOCOL IV ; Start 03/16/19 at 17:30 Ondansetron HCl (Zofran Inj) 4 mg Q6H PRN IV NAUSEA/VOMITING Last administered on 03/26/19at 05:58; Admin Dose 4 MG; Start 03/16/19 at 17:30 Aspirin (Aspirin) 81 mg DAILY PO Last administered on 03/31/19at 09:34; Admin Dose 81 MG; Start 03/17/19 at 09:00 Nitroglycerin (Nitroglycerin (Sl Tab) 0.4 Mg) 1 tab Q5M PRN SL .CHEST PAIN; Start 03/16/19 at 17:30 Acetaminophen (Tylenol Tab) 650 mg Q6H PRN PO .PAIN 1-3 OR TEMP; Start 03/16/19 at 17:30 Morphine Sulfate (morphine) 2 mg Q4H PRN IV .PAIN 7-10 Last administered on 03/31/19at 06:44; Admin Dose 2 MG; Start 03/16/19 at 17:30 Zolpidem Tartrate (Ambien) 5 mg QHS PRN PO .INSOMNIA Last administered on 03/29/19at 23:19; Admin Dose 5 MG; Start 03/16/19 at 17:30 Docusate Sodium (Colace) 100 mg Q12H PO Last administered on 03/31/19at 05:30; Admin Dose 100 MG; Start 03/16/19 at 17:30 Bisacodyl (Dulcolax) 5 mg DAILY PRN PO .CONSTIPATION; Start 03/16/19 at 17:30 Miscellaneous Information 1 ea NOTE XX ; Start 03/16/19 at 18:00 Glucose (Glutose) 15 gm Q15M PRN PO DECREASED GLUCOSE; Start 03/16/19 at 18:00 Glucose (Glutose) 22.5 gm Q15M PRN PO DECREASED GLUCOSE; Start 03/16/19 at 18:00 Dextrose (D50w Syringe) 25 ml Q15M PRN IV DECREASED GLUCOSE; Start 03/16/19 at 18:00 Dextrose (D50w Syringe) 50 ml Q15M PRN IV DECREASED GLUCOSE; Start 03/16/19 at 18:00 Glucagon (Glucagen) 1 mg Q15M PRN IM DECREASED GLUCOSE; Start 03/16/19 at 18:00 Glucose (Glutose) 15 gm Q15M PRN BUCCAL DECREASED GLUCOSE; Start 03/16/19 at 18:00 Pantoprazole (Protonix Tab) 40 mg DAILY@06 PO Last administered on 03/31/19at 05:30; Admin Dose 40 MG; Start 03/17/19 at 06:00 Tacrolimus (Prograf) 2 mg AM PO Last administered on 03/31/19at 09:35; Admin Dose 2 MG; Start 03/18/19 at 09:00 Mycophenolate Sodium (Myfortic) 180 mg Q12 PO Last administered on 03/31/19 09:34; Admin Dose 180 MG; Start 03/17/19 at 21:00 Diagnostic Test (Pha) (Accu-Chek) 1 ea 02 XX Last administered on 03/31/19 02:38; Admin Dose 1 EA; Start 03/18/19 at 02:00 Guaifenesin/ Dextromethorphan (Robitussin Dm Liquid Cup) 10 ml Q4H PRN PO COUGH; Start 03/18/19 at 14:30 Hydralazine HCl (Apresoline) 10 mg Q4H PRN IV ELEVATED BLOOD PRESSURE Last administered on 03/29/19 22:09; Admin Dose 10 MG; Start 03/18/19 at 15:30 Metoclopramide HCl (Reglan) 5 mg TID PO Last administered on 03/31/19 09:35; Admin Dose 5 MG; Start 03/18/19 at 17:00 Simethicone (Mylicon) 80 mg Q6H PRN PO DISTENSION/GAS/BLOATING Last administered on 03/26/19 04:34; Admin Dose 80 MG; Start 03/18/19 at 17:30 Insulin Aspart (Novolog Insulin Pen) NOVOLOG *MODERATE* ALGORITHM WITH MEALS BEDTIME SC Last administered on 03/30/19 22:25; Admin Dose 3 UNIT; Start 03/18/19 at 21:00 Sodium Bicarbonate (Sodium Bicarbonate Tab) 650 mg BID PO Last administered on 03/31/19 09:34; Admin Dose 650 MG; Start 03/19/19 at 14:00 Ergocalciferol (Drisdol) 50,000 unit Sutton@09 PO Last administered on 03/28/19at 1 2:31; Admin Dose 50,000 UNIT; Start 03/21/19 at 09:00 Acetaminophen/ Hydrocodone Bitart ([place] (5/325)) 2 tab Q4H PRN PO MODERATE to sever 5-10 Last administered on 03/31/19 07:51; Admin Dose 2 TAB; Start 03/20/19 at 22:30 Albuterol/ Ipratropium (Duoneb) 3 ml Q4H RESP THERAPY PRN HHN SHORTNESS OF BREATH; Start 03/23/19 at 04:00 Albuterol/ Ipratropium (Duoneb) 3 ml Q6HWA RESP THERAPY HHN Last administered on 03/31/19at 08:38; Admin Dose 3 ML; Start 03/23/19 at 20:00 Insulin Glargine (Lantus) 10 units DAILY@2000 SC Last administered on 03/30/19 22:26; Admin Dose 10 UNITS; Start 03/24/19 at 20:00 Tacrolimus (Prograf) 1 mg HS PO Last administered on 03/30/19at 22:14; Admin Dose 1 MG; Start 03/26/19 at 21:00 Diphenhydramine HCl (Benadryl) 25 mg Q6H PRN IV FOR ITCHING Last administered on 03/27/19at 23:42; Admin Dose 25 MG; Start 03/27/19 at 23:30 Epoetin Fidencio-epbx (Retacrit (Esrd)) 3,000 unit MoWeFr@1700 SC ; Start 03/29/19 at 17:00 Multivit/Ca Carb/ B Cmplx/FA/Prenat (Alexandrea-Agustina) 1 tab DAILY PO Last administered on 03/31/19at 09:35; Admin Dose 1 TAB; Start 03/29/19 at 09:00 Epoetin Fidencio-epbx (Retacrit (Esrd)) 2,000 unit MoWeFr@1700 SC ; Start 03/29/19 at 17:00 Prednisone (Prednisone) 10 mg DAILY PO Last administered on 03/31/19at 09:35; Admin Dose 10 MG; Start 03/29/19 at 09:00 HARVINDER BLOOD MD March 31, 2019 10:16
[2019-03-31] MEDS ORDERED: SODIUM POLYSTYRENE 15 GM KIT (POWDER + SORBITOL) PO ONE (13:30)
--- NOTE | 2019-03-31 13:52 | PN ---
Date/Time of Note Date/Time of Note DATE: 03/31/19 TIME: 13:49 Assessment/Plan VTE Prophylaxis Risk score (from Ns)>0 risk: 4 SCD applied (from [facility]): Yes Pharmacological prophylaxis: NA/contraindicated Pharm contraindication: anticoag not tolerated Lines/Catheters IV Catheter Type (from [facility]): Mid Line Central line still needed: Yes Urinary Cath still in place: No Assessment/Plan Hospital Course Patient refused blood draw in the morning however later on agreed and now has hemoglobin 6.1, pending blood transfusion of 2 units of packed red blood cells, potassium is 5.5, patient will get Kayexalate. Assessment/Plan -Left lower lobe is in keeping with bronchopneumonia and multifocal bronchiolitis greatest in the left. Dr. Bush is following in pulmonology consultation. Continue Levaquin and prednisone. -Possible sepsis secondary to possible pneumonia and UTI, s/p Rocephin. Dr. Olmstead is following in infection disease consultation. -Acute renal failure on chronic kidney disease stage IV, status post cadaveric kidney transplant [place] 2009. Dr. Allen is following in nephrology consultation. -Hyperkalemia, status post Kayexalate -Moderate hydronephrosis, Dr. Noguera is following in urology consultation. -Possible pancreatitis, monitor lipase -Diabetes mellitus type 2 with diabetic neuropathy. HbgA1C is 6.2. Continue Tradjenta, Lantus and NovoLog. -Hypertension. -Anemia -Chronic HCV infection -Rheumatoid arthritis -History of polysubstance and IV drug use -Poor medical compliance Further recommendations based on clinical course. Plan of care discussed with Dr. Maier. Result Diagram: 03/31/1930 03/31/19 0930 Results 24hrs Laboratory Tests Test 03/30/19 16:56 03/30/19 22:13 03/31/19 02:33 03/31/19 07:52 Bedside Glucose 219 291 H 160 85 Test 03/31/19 09:30 03/31/19 11:48 White Blood Count 6.6 Red Blood Count 1.89 L Hemoglobin 6.1 *L Hematocrit 18.8 L Mean Corpuscular 99.5 Volume Mean Corpuscular 32.3 Hemoglobin Mean Corpuscular 32.4 Hemoglobin Concent Red Cell 16.3 H Distribution Width Platelet Count 173 Mean Platelet Volume 9.8 Immature 0.800 H Granulocytes % Neutrophils % 69.4 Segmented 81 H Neutrophils % (Manual) Lymphocytes % 16.6 Lymphocytes % 13 L (Manual) Reactive Lymphocytes 1 H % (Manual) Monocytes % 9.5 Monocytes % (Manual) 1 Eosinophils % 3.5 Eosinophils % 4 (Manual) Basophils % 0.2 Nucleated Red Blood 1 H Cells % Immature 0.050 H Granulocytes # Neutrophils # 4.6 Lymphocytes (Manual) 0.8 Lymphocytes # 1.1 Reactive Lymphocytes 0.0 # Monocytes # 0.6 Monocytes # (Manual) 0.0 L Eosinophils # 0.2 Basophils # 0.0 Nucleated Red Blood 0.0 Cells # Pathologist YES Review (Hematology) White Cell @See below Morphology Comment Platelet Estimate NORMAL Hypochromasia 2+ Poikilocytosis 1+ Anisocytosis 2+ Microcytosis 1+ Red Cell Morphology @See below Comment Sodium Level 136 Potassium Level 5.5 H Chloride Level 110 Carbon Dioxide Level 19 L Anion Gap 7 Blood Urea Nitrogen 114 H Creatinine 4.38 H Est Glomerular 14 L Filtrat Rate mL/min Glucose Level 116 # Calcium Level 8.3 L Bedside Glucose 156 Exam/Review of Systems Exam Vitals Vital Signs Date Temp Pulse Resp B/P (MAP) Pulse Ox O2 O2 Flow FiO2 Time Delivery Rate 03/31/19 78 12:00 03/31/19 97.7 18 142/55 97 Room Air 11:02 (84) 03/31/19 2.0 09:40 03/29/19 33 02:29 Intake and Output 03/30/19 03/30/19 03/31/19 1515:00 23:00 07:00 IntakeIntake Total 400 ml 650 ml OutputOutput Total 600 ml 500 ml BalanceBalance -200 ml 150 ml Exam Constitutional: alert, oriented Respiratory: clear to auscultation Cardiovascular: regular rate and rhythm Gastrointestinal: soft, tender Musculoskeletal: nl extremities to inspection Extremities: normal pulses 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: nl mental status Results Results 24hrs Laboratory Tests Test 03/30/19 16:56 03/30/19 22:13 03/31/19 02:33 03/31/19 07:52 Bedside Glucose 219 291 H 160 85 Test 03/31/19 09:30 03/31/19 11:48 White Blood Count 6.6 Red Blood Count 1.89 L Hemoglobin 6.1 *L Hematocrit 18.8 L Mean Corpuscular 99.5 Volume Mean Corpuscular 32.3 Hemoglobin Mean Corpuscular 32.4 Hemoglobin Concent Red Cell 16.3 H Distribution Width Platelet Count 173 Mean Platelet Volume 9.8 Immature 0.800 H Granulocytes % Neutrophils % 69.4 Segmented 81 H Neutrophils % (Manual) Lymphocytes % 16.6 Lymphocytes % 13 L (Manual) Reactive Lymphocytes 1 H % (Manual) Monocytes % 9.5 Monocytes % (Manual) 1 Eosinophils % 3.5 Eosinophils % 4 (Manual) Basophils % 0.2 Nucleated Red Blood 1 H Cells % Immature 0.050 H Granulocytes # Neutrophils # 4.6 Lymphocytes (Manual) 0.8 Lymphocytes # 1.1 Reactive Lymphocytes 0.0 # Monocytes # 0.6 Monocytes # (Manual) 0.0 L Eosinophils # 0.2 Basophils # 0.0 Nucleated Red Blood 0.0 Cells # Pathologist YES Review (Hematology) White Cell @See below Morphology Comment Platelet Estimate NORMAL Hypochromasia 2+ Poikilocytosis 1+ Anisocytosis 2+ Microcytosis 1+ Red Cell Morphology @See below Comment Sodium Level 136 Potassium Level 5.5 H Chloride Level 110 Carbon Dioxide Level 19 L Anion Gap 7 Blood Urea Nitrogen 114 H Creatinine 4.38 H Est Glomerular 14 L Filtrat Rate mL/min Glucose Level 116 # Calcium Level 8.3 L Bedside Glucose 156 Medications Medication Current Medications IV Flush (NS 3 ml) 3 ml PER PROTOCOL IV ; Start 03/16/19 at 17:30 Ondansetron HCl (Zofran Inj) 4 mg Q6H PRN IV NAUSEA/VOMITING Last administered on 03/26/19at 05:58; Admin Dose 4 MG; Start 03/16/19 at 17:30 Aspirin (Aspirin) 81 mg DAILY PO Last administered on 03/31/19at 09:34; Admin Dose 81 MG; Start 03/17/19 at 09:00 Nitroglycerin (Nitroglycerin (Sl Tab) 0.4 Mg) 1 tab Q5M PRN SL .CHEST PAIN; Start 03/16/19 at 17:30 Acetaminophen (Tylenol Tab) 650 mg Q6H PRN PO .PAIN 1-3 OR TEMP; Start 03/16/19 at 17:30 Morphine Sulfate (morphine) 2 mg Q4H PRN IV .PAIN 7-10 Last administered on 03/31/19at 12:06; Admin Dose 2 MG; Start 03/16/19 at 17:30 Zolpidem Tartrate (Ambien) 5 mg QHS PRN PO .INSOMNIA Last administered on 03/29/19at 23:19; Admin Dose 5 MG; Start 03/16/19 at 17:30 Docusate Sodium (Colace) 100 mg Q12H PO Last administered on 03/31/19at 05:30; Admin Dose 100 MG; Start 03/16/19 at 17:30 Bisacodyl (Dulcolax) 5 mg DAILY PRN PO .CONSTIPATION; Start 03/16/19 at 17:30 Miscellaneous Information 1 ea NOTE XX ; Start 03/16/19 at 18:00 Glucose (Glutose) 15 gm Q15M PRN PO DECREASED GLUCOSE; Start 03/16/19 at 18:00 Glucose (Glutose) 22.5 gm Q15M PRN PO DECREASED GLUCOSE; Start 03/16/19 at 18:00 Dextrose (D50w Syringe) 25 ml Q15M PRN IV DECREASED GLUCOSE; Start 03/16/19 at 18:00 Dextrose (D50w Syringe) 50 ml Q15M PRN IV DECREASED GLUCOSE; Start 03/16/19 at 18:00 Glucagon (Glucagen) 1 mg Q15M PRN IM DECREASED GLUCOSE; Start 03/16/19 at 18:00 Glucose (Glutose) 15 gm Q15M PRN BUCCAL DECREASED GLUCOSE; Start 03/16/19 at 18:00 Pantoprazole (Protonix Tab) 40 mg DAILY@06 PO Last administered on 03/31/19at 05:30; Admin Dose 40 MG; Start 03/17/19 at 06:00 Tacrolimus (Prograf) 2 mg AM PO Last administered on 03/31/19at 09:35; Admin Dose 2 MG; Start 03/18/19 at 09:00 Mycophenolate Sodium (Myfortic) 180 mg Q12 PO Last administered on 03/31/19at 09:34; Admin Dose 180 MG; Start 03/17/19 at 21:00 Diagnostic Test (Pha) (Accu-Chek) 1 ea 02 XX Last administered on 03/31/19at 02:38; Admin Dose 1 EA; Start 03/18/19 at 02:00 Guaifenesin/ Dextromethorphan (Robitussin Dm Liquid Cup) 10 ml Q4H PRN PO COUGH; Start 03/18/19 at 14:30 Hydralazine HCl (Apresoline) 10 mg Q4H PRN IV ELEVATED BLOOD PRESSURE Last administered on 03/29/19 22:09; Admin Dose 10 MG; Start 03/18/19 at 15:30 Metoclopramide HCl (Reglan) 5 mg TID PO Last administered on 03/31/19 12:05; Admin Dose 5 MG; Start 03/18/19 at 17:00 Simethicone (Mylicon) 80 mg Q6H PRN PO DISTENSION/GAS/BLOATING Last administered on 03/26/19 04:34; Admin Dose 80 MG; Start 03/18/19 at 17:30 Insulin Aspart (Novolog Insulin Pen) NOVOLOG *MODERATE* ALGORITHM WITH MEALS BEDTIME SC Last administered on 03/31/19 12:15; Admin Dose 2 UNIT; Start 03/18/19 at 21:00 Sodium Bicarbonate (Sodium Bicarbonate Tab) 650 mg BID PO Last administered on 03/31/19 09:34; Admin Dose 650 MG; Start 03/19/19 at 14:00 Ergocalciferol (Drisdol) 50,000 unit Sutton@09 PO Last administered on 03/28/19 12:31; Admin Dose 50,000 UNIT; Start 03/21/19 at 09:00 Acetaminophen/ Hydrocodone Bitart ([place] (5/325)) 2 tab Q4H PRN PO MODERATE to sever 5-10 Last administered on 03/31/19 07:51; Admin Dose 2 TAB; Start 03/20/19 at 22:30 Albuterol/ Ipratropium (Duoneb) 3 ml Q4H RESP THERAPY PRN HHN SHORTNESS OF BREATH; Start 03/23/19 at 04:00 Albuterol/ Ipratropium (Duoneb) 3 ml Q6HWA RESP THERAPY HHN Last administered on 03/31/19 08:38; Admin Dose 3 ML; Start 03/23/19 at 20:00 Insulin Glargine (Lantus) 10 units DAILY@2000 SC Last administered on 03/30/19 22:26; Admin Dose 10 UNITS; Start 03/24/19 at 20:00 Tacrolimus (Prograf) 1 mg HS PO Last administered on 03/30/19 22:14; Admin Dose 1 MG; Start 03/26/19 at 21:00 Diphenhydramine HCl (Benadryl) 25 mg Q6H PRN IV FOR ITCHING Last administered on 03/27/19at 23:42; Admin Dose 25 MG; Start 03/27/19 at 23:30 Epoetin Fidencio-epbx (Retacrit (Esrd)) 3,000 unit MoWeFr@1700 SC ; Start 03/29/19 at 17:00 Multivit/Ca Carb/ B Cmplx/FA/Prenat (Alexandrea-Agustina) 1 tab DAILY PO Last administered on 03/31/19 09:35; Admin Dose 1 TAB; Start 03/29/19 at 09:00 Epoetin Fidencio-epbx (Retacrit (Esrd)) 2,000 unit MoWeFr@1700 SC ; Start 03/29/19 at 17:00 Prednisone (Prednisone) 10 mg DAILY PO Last administered on 03/31/19 09:35; Admin Dose 10 MG; Start 03/29/19 at 09:00 LETI RODRIGUEZ March 31, 2019 13:52
--- NOTE | 2019-03-31 14:38 | CONS ---
Assessment/Plan Assessment/Plan Hospital Course (Demo Recall) # respiratory - dyspnea due to possible pneumonia vs. bronchiolitis - 03/24/19 CT Chest showed nodular consolidation in the left lower lobe is in keeping with bronchopneumonia and there is also multifocal bronchiolitis greatest in the left greater than right lower lobes that is likely also infe ctious. # musculoskeletal, dermatological - L should pain, XR ion 03/30/2019 showed possibly a calcified loose body/calcific bursitis - h/o OM of R 4th digit: swelling with new erosive changes and osteopenia of the underlying R 4th distal phalanx, suggestive of osteomyelitis; wound culture grew Serratia on 03/18/18 and Serratia + CoNS (likely colonizer) on 04/04/18 ; Pt declined amputation. ESR 39 on 03/18/2018. S/p Levaquin x 6 weeks - Hx mild subtle increased activity within the upper aspect of LUE, nonspecific, on WBC tagged scan on 04/05/2018 - Hx OM of R 3rd fingertip (XR showed periosteal reaction at the tip of R 3rd distal phalanx, suspicious for OM, MRI showed cellulitis of distal R 4th p halanx, without OM) and L 2nd fingertip (XR showed cortical irregularity at the tuft of L 2nd distal phalanx with overlying soft tissue defect, suggesting early OM, MRI showed OM at L 2nd distal phalanx with, cellulitis about L 2nd distal phalanx without drainable fluid collection.) - Hx OM of R 2nd finger s/p amputation at proximal phalanx neck. The exposed area is open but dry and has no purulence, erythema or tenderness - h/o OM of L 3rd finger s/p amputation at middle and distal phalanges - h/o onychomycosis, tinea pedis - Seen by Epoxy Specialist during last admit # cardiovascular, heme - HTN - h/o BLE atherosclerosis - Seen by Vascular Surgery in the past - Anemia of chronic disease with h/o pernicious anemia - h/o thrombosed graft of LUE # renal/uro - recurrent acute on chronic renal failure - h/o calcification of the vas deferens with a persistent hydrocele within the scrotum per CT 01/12/19 - ho MRSA and K. pneumoniae in urine culture on 12/09/2018 - UA was neg for pyuria - Hx ESRD, was on HD. Pt declined placement of a new HD catheter - S/p renal transplant in 2009 (on tacrolimus, mycophenolate and prednisone), chronic renal insufficiency at baseline # bacteremia, history of endocarditis - h/o bacteremia d/t MSSA 12/09/2018 - Dr. Olmstead rec'd call from [facility] 01/15/19 regarding this; Pt completed cefazolin through the end of 01/2019 # endo and GI - DM - Dyslipidemia - H/o hematoma within the right lateral abdominal wall musculature which has developed since the previous study done 12/13/2018 measuring 7.3 x 4.6 cm in cross diameter and extending an acrylic that dimension approximately 10.7 cm from the level of the superior pole of the [place] right kidney to just inferior to the right iliac crest per CT 01/12/19 - Hx Juan's esophagus and gastritis s/p EGD on 08/12/2017. No H. pylori on Bx - Hx hyperparathyroidism - Chronic HCV infection # anemia - probably multifactorial, ESRD but also possibly persistent hematoma of L flank/lower back # other conditions - Rheumatoid arthritis - Hx polysubstance and IV drug use. - Major depressive disorder Recommendation: - pending results: coccidioides, cryptococcus antigen - ordered: soft tissue US of L flank, middle and lower thorax to eval hematoma - Complete 5 days of levofloxacin (03/25/19-) today management d/w Pt and his RN Fe Consultation Date/Type/Reason Admit Date/Time March 17, 2019 at 13:23 Initial Consult Date 03/25/19 Type of Consult ID Requesting Provider: LUPE KAPLAN MD Date/Time of Note DATE: 03/31/19 TIME: 14:31 24 HR Interval Summary Constitutional: other (getting pRBC) Detailed Summary Eyes: no complaints ENT: no complaints Respiratory: no complaints Cardiovascular: no complaints Gastrointestinal: other (c/o persistent ecchymosis of L flank/lower back) Genitourinary: no complaints Musculoskeletal: bone/joint pain (less L shoulder pain), other (wanting to cut a residual nail or bone of R 3rd digit) Skin: no complaints Neurologic: no complaints Exam/Review of Systems Exam Vitals Vital Signs Date Temp Pulse Resp B/P (MAP) Pulse Ox O2 O2 Flow FiO2 Time Delivery Rate 03/31/19 3.0 14:28 03/31/19 78 12:00 03/31/19 97.7 18 142/55 97 Room Air 11:02 (84) 03/29/19 33 02:29 Intake and Output 03/30/19 03/30/19 03/31/19 1515:00 23:00 07:00 IntakeIntake Total 400 ml 650 ml OutputOutput Total 600 ml 500 ml BalanceBalance -200 ml 150 ml Constitutional: frail Psych: no complaints, nl mood/affect Head: normocephalic, atraumatic Eyes: nl conjunctiva, nl lids, nl sclera ENMT: nl external ears & nose, nl nasal mucosa & septum, mucosa pink and moist Neck: supple Respiratory: normal air movement Cardiovascular: No edema Gastrointestinal: soft, other (ecchymosis covering L flank, L middle-lower back, non-TTP) Musculoskeletal: muscle weakness (Lshoulder abduction is not possible), range of motion (L shoulder), other (s/p amputation of distal R 2nd and L 3rd digits, +partial amputation of R 3rd digit with exposed bone. Non-TTP, non-purulent) Extremities: No edema 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: FERRY PILOT II-XII intact, nl mental status, nl speech Skin: nl turgor, ecchymosis (L flank, L middle/lower back) Results Result Diagram: 03/31/1930 03/31/19 0930 Results 24hrs Laboratory Tests Test 03/30/19 16:56 03/30/19 22:13 03/31/19 02:33 03/31/19 07:52 Bedside Glucose 219 291 H 160 85 Test 03/31/19 09:30 03/31/19 11:48 White Blood Count 6.6 Red Blood Count 1.89 L Hemoglobin 6.1 *L Hematocrit 18.8 L Mean Corpuscular 99.5 Volume Mean Corpuscular 32.3 Hemoglobin Mean Corpuscular 32.4 Hemoglobin Concent Red Cell 16.3 H Distribution Width Platelet Count 173 Mean Platelet Volume 9.8 Immature 0.800 H Granulocytes % Neutrophils % 69.4 Segmented 81 H Neutrophils % (Manual) Lymphocytes % 16.6 Lymphocytes % 13 L (Manual) Reactive Lymphocytes 1 H % (Manual) Monocytes % 9.5 Monocytes % (Manual) 1 Eosinophils % 3.5 Eosinophils % 4 (Manual) Basophils % 0.2 Nucleated Red Blood 1 H Cells % Immature 0.050 H Granulocytes # Neutrophils # 4.6 Lymphocytes (Manual) 0.8 Lymphocytes # 1.1 Reactive Lymphocytes 0.0 # Monocytes # 0.6 Monocytes # (Manual) 0.0 L Eosinophils # 0.2 Basophils # 0.0 Nucleated Red Blood 0.0 Cells # Pathologist YES Review (Hematology) White Cell @See below Morphology Comment Platelet Estimate NORMAL Hypochromasia 2+ Poikilocytosis 1+ Anisocytosis 2+ Microcytosis 1+ Red Cell Morphology @See below Comment Sodium Level 136 Potassium Level 5.5 H Chloride Level 110 Carbon Dioxide Level 19 L Anion Gap 7 Blood Urea Nitrogen 114 H Creatinine 4.38 H Est Glomerular 14 L Filtrat Rate mL/min Glucose Level 116 # Calcium Level 8.3 L Bedside Glucose 156 Medications Medication Current Medications IV Flush (NS 3 ml) 3 ml PER PROTOCOL IV ; Start 03/16/19 at 17:30 Ondansetron HCl (Zofran Inj) 4 mg Q6H PRN IV NAUSEA/VOMITING Last administered on 03/26/19at 05:58; Admin Dose 4 MG; Start 03/16/19 at 17:30 Aspirin (Aspirin) 81 mg DAILY PO Last administered on 03/31/19at 09:34; Admin Dose 81 MG; Start 03/17/19 at 09:00 Nitroglycerin (Nitroglycerin (Sl Tab) 0.4 Mg) 1 tab Q5M PRN SL .CHEST PAIN; Start 03/16/19 at 17:30 Acetaminophen (Tylenol Tab) 650 mg Q6H PRN PO .PAIN 1-3 OR TEMP; Start 03/16/19 at 17:30 Morphine Sulfate (morphine) 2 mg Q4H PRN IV .PAIN 7-10 Last administered on 03/31/19at 12:06; Admin Dose 2 MG; Start 03/16/19 at 17:30 Zolpidem Tartrate (Ambien) 5 mg QHS PRN PO .INSOMNIA Last administered on 03/29/19at 23:19; Admin Dose 5 MG; Start 03/16/19 at 17:30 Docusate Sodium (Colace) 100 mg Q12H PO Last administered on 03/31/19at 05:30; Admin Dose 100 MG; Start 03/16/19 at 17:30 Bisacodyl (Dulcolax) 5 mg DAILY PRN PO .CONSTIPATION; Start 03/16/19 at 17:30 Miscellaneous Information 1 ea NOTE XX ; Start 03/16/19 at 18:00 Glucose (Glutose) 15 gm Q15M PRN PO DECREASED GLUCOSE; Start 03/16/19 at 18:00 Glucose (Glutose) 22.5 gm Q15M PRN PO DECREASED GLUCOSE; Start 03/16/19 at 18:00 Dextrose (D50w Syringe) 25 ml Q15M PRN IV DECREASED GLUCOSE; Start 03/16/19 at 18:00 Dextrose (D50w Syringe) 50 ml Q15M PRN IV DECREASED GLUCOSE; Start 03/16/19 at 18:00 Glucagon (Glucagen) 1 mg Q15M PRN IM DECREASED GLUCOSE; Start 03/16/19 at 18:00 Glucose (Glutose) 15 gm Q15M PRN BUCCAL DECREASED GLUCOSE; Start 03/16/19 at 18:00 Pantoprazole (Protonix Tab) 40 mg DAILY@06 PO Last administered on 03/31/19at 05:30; Admin Dose 40 MG; Start 03/17/19 at 06:00 Tacrolimus (Prograf) 2 mg AM PO Last administered on 03/31/19at 09:35; Admin Dose 2 MG; Start 03/18/19 at 09:00 Mycophenolate Sodium (Myfortic) 180 mg Q12 PO Last administered on 03/31/19at 09:34; Admin Dose 180 MG; Start 03/17/19 at 21:00 Diagnostic Test (Pha) (Accu-Chek) 1 ea 02 XX Last administered on 03/31/19at 02:38; Admin Dose 1 EA; Start 03/18/19 at 02:00 Guaifenesin/ Dextromethorphan (Robitussin Dm Liquid Cup) 10 ml Q4H PRN PO COUGH; Start 03/18/19 at 14:30 Hydralazine HCl (Apresoline) 10 mg Q4H PRN IV ELEVATED BLOOD PRESSURE Last administered on 03/29/19at 22:09; Admin Dose 10 MG; Start 03/18/19 at 15:30 Metoclopramide HCl (Reglan) 5 mg TID PO Last administered on 03/31/19at 12:05; Admin Dose 5 MG; Start 03/18/19 at 17:00 Simethicone (Mylicon) 80 mg Q6H PRN PO DISTENSION/GAS/BLOATING Last administered on 03/26/19 04:34; Admin Dose 80 MG; Start 03/18/19 at 17:30 Insulin Aspart (Novolog Insulin Pen) NOVOLOG *MODERATE* ALGORITHM WITH MEALS BEDTIME SC Last administered on 03/31/19 12:15; Admin Dose 2 UNIT; Start 03/18/19 at 21:00 Sodium Bicarbonate (Sodium Bicarbonate Tab) 650 mg BID PO Last administered on 03/31/19 09:34; Admin Dose 650 MG; Start 03/19/19 at 14:00 Ergocalciferol (Drisdol) 50,000 unit Sutton@09 PO Last administered on 03/28/19 12:31; Admin Dose 50,000 UNIT; Start 03/21/19 at 09:00 Acetaminophen/ Hydrocodone Bitart ([place] (5/325)) 2 tab Q4H PRN PO MODERATE to sever 5-10 Last administered on 03/31/19 07:51; Admin Dose 2 TAB; Start 03/20/19 at 22:30 Albuterol/ Ipratropium (Duoneb) 3 ml Q4H RESP THERAPY PRN HHN SHORTNESS OF BREATH; Start 03/23/19 at 04:00 Albuterol/ Ipratropium (Duoneb) 3 ml Q6HWA RESP THERAPY HHN Last administered on 03/31/19 08:38; Admin Dose 3 ML; Start 03/23/19 at 20:00 Insulin Glargine (Lantus) 10 units DAILY@2000 SC Last administered on 03/30/19 22:26; Admin Dose 10 UNITS; Start 03/24/19 at 20:00 Tacrolimus (Prograf) 1 mg HS PO Last administered on 03/30/19 22:14; Admin Dose 1 MG; Start 03/26/19 at 21:00 Diphenhydramine HCl (Benadryl) 25 mg Q6H PRN IV FOR ITCHING Last administered on 03/27/19 23:42; Admin Dose 25 MG; Start 03/27/19 at 23:30 Epoetin Fidencio-epbx (Retacrit (Esrd)) 3,000 unit MoWeFr@1700 SC ; Start 03/29/19 at 17:00 Multivit/Ca Carb/ B Cmplx/FA/Prenat (Alexandrea-Agustina) 1 tab DAILY PO Last administered on 03/31/19at 09:35; Admin Dose 1 TAB; Start 03/29/19 at 09:00 Epoetin Fidencio-epbx (Retacrit (Esrd)) 2,000 unit MoWeFr@1700 SC ; Start 03/29/19 at 17:00 Prednisone (Prednisone) 10 mg DAILY PO Last administered on 03/31/19at 09:35; Admin Dose 10 MG; Start 03/29/19 at 09:00 MAGO VAIL M.D. March 31, 2019 14:38
[2019-03-31] MEDS: ONDANSETRON 4 MG INJ IV PRN (15:53)
[2019-03-31] MEDS: EPOETIN ALFA-EPBX (ESRD) 2,000 UNIT/ML VIAL SC SCH (17:00)
[2019-03-31] MEDS: EPOETIN ALFA-EPBX (ESRD) 3,000 UNIT/ML VIAL SC SCH (17:00)
[2019-03-31] MEDS: INSULIN GLARGINE [LANTus] (100 UNITS/ML) SYG SC SCH (21:36)
[2019-04-01] VITALS: PULSE 90
[2019-04-01] MEDS: ACCU-CHEK XX SCH (02:00)
[2019-04-01 04:00] VITALS: BP 141/61; PULSE 76; PULSE 86; RESP 18
[2019-04-01] MEDS: HYDROCODONE/APAP (5/325) TAB PO PRN ×2 (04:44→11:41)
[2019-04-01] MEDS: PANTOPRAZOLE (EC) 40 MG TAB PO SCH (05:47)
[2019-04-01] MEDS: DOCUSATE SODIUM 100 MG CAP PO SCH (05:48)
[2019-04-01 07:12] VITALS: BP 134/58; PULSE 87; RESP 18
[2019-04-01] MEDS: morphine 2 MG INJ IV PRN (07:36)
[2019-04-01] MEDS: INSULIN ASPART [NOVOLOG] 3 ML PEN SC SCH ×2 (07:40→11:38)
[2019-04-01 08:00] VITALS: PULSE 76
[2019-04-01] MEDS: ALBUTEROL/IPRATROPIUM (NEB) 3 ML AMP HHN SCH ×2 (08:00→14:00)
[2019-04-01] MEDS: METOCLOPRAMIDE 5 MG TAB PO SCH ×2 (08:55→13:52)
[2019-04-01] MEDS: ASPIRIN 81 MG TAB PO SCH (08:55)
[2019-04-01] MEDS: MULTIVIT/CA CARB/B CMPLX/FA TAB PO SCH (08:56)
[2019-04-01] MEDS: MYCOPHENOLATE (SR) 180 MG TAB PO SCH (08:56)
[2019-04-01] MEDS: TACROLIMUS 1 MG CAP PO SCH (08:56)
[2019-04-01] MEDS: predniSONE 10 MG TAB PO SCH (08:56)
[2019-04-01] MEDS: NA BICARBONATE 650 MG TAB PO SCH (09:00)
[2019-04-01] MEDS: BALSAM PERU/CASTOR OIL 60 GM TUBE TOP SCH (09:00)
[2019-04-01 11:05] VITALS: BP 115/84; PULSE 73; RESP 18
--- NOTE | 2019-04-01 11:42 | CONS ---
Consult Date/Type/Reason Admit Date/Time March 17, 2019 at 13:23 Initial Consult Date 03/25/19 Type of Consult Pulmonary Requesting Provider: LUPE KAPLAN MD Date/Time of Note DATE: 04/01/19 TIME: 11:41 Subjective Patient appears comfortable this morning no respiratory distress. Fluctuating compliance. Objective Vital Signs Date Temp Pulse Resp B/P (MAP) Pulse Ox O2 O2 Flow FiO2 Time Delivery Rate 04/01/19 98.4 73 18 115/84 97 Room Air 11:05 (94) 04/01/19 2.0 04:55 03/29/19 33 02:29 Intake and Output 03/31/19 03/31/19 04/01/19 1515:00 23:00 07:00 IntakeIntake Total 990 ml 800 ml OutputOutput Total 880 ml 550 ml BalanceBalance 110 ml 250 ml Exam GENERAL: VITAL SIGNS: per chart NECK: Supple. No JVD or lymphadenopathy. CARDIAC EXAM: S1, S2. No added sounds or murmurs. CHEST: clear bilaterally, No added sounds, rales or wheezes ABDOMEN: Soft, nontender. No guarding or rebound. EXTREMITIES: No cyanosis, clubbing or edema. NEUROLOGIC: Generalized weakness. No focal deficits. Vent Setting Fraction of Inspired Oxygen pe: 33 Results/Medications Result Diagram: 04/01/19 0804/01/19 0805 Results 24 hrs Laboratory Tests Test 03/31/19 11:48 03/31/19 17:23 03/31/19 21:20 04/01/19 02:13 Bedside Glucose 156 268 H 214 138 Test 04/01/19 07:40 04/01/19 07:48 04/01/19 08:05 04/01/19 11:38 Bedside Glucose 102 97 Lab Scanned BLOOD TRANSFUSIO Report N White Blood Count 7.3 Red Blood Count 2.72 #L Hemoglobin 8.8 #L Hematocrit 26.6 #L Mean Corpuscular 97.8 Volume Mean Corpuscular 32.4 Hemoglobin Mean Corpuscular 33.1 Hemoglobin Concen t Red Cell 15.3 H Distribution Width Platelet Count 168 Mean Platelet 9.7 Volume Immature 0.500 H Granulocytes % Neutrophils % 72.5 Lymphocytes % 14.2 L Monocytes % 9.3 Eosinophils % 3.4 Basophils % 0.1 Nucleated Red 0.0 Blood Cells % Immature 0.040 H Granulocytes # Neutrophils # 5.3 Lymphocytes # 1.0 Monocytes # 0.7 Eosinophils # 0.3 Basophils # 0.0 Nucleated Red 0.0 Blood Cells # Sodium Level 138 Potassium Level 5.3 H Chloride Level 111 H Carbon Dioxide 19 L Level Anion Gap 8 Blood Urea 112 H Nitrogen Creatinine 3.95 H Est Glomerular 16 L Filtrat Rate mL/min Glucose Level 66 #L Calcium Level 8.6 Medications Current Medications IV Flush (NS 3 ml) 3 ml PER PROTOCOL IV ; Start 03/16/19 at 17:30 Ondansetron HCl (Zofran Inj) 4 mg Q6H PRN IV NAUSEA/VOMITING Last administered on 03/31/19at 15:53; Admin Dose 4 MG; Start 03/16/19 at 17:30 Aspirin (Aspirin) 81 mg DAILY PO Last administered on 04/01/19at 08:55; Admin Dose 81 MG; Start 03/17/19 at 09:00 Nitroglycerin (Nitroglycerin (Sl Tab) 0.4 Mg) 1 tab Q5M PRN SL .CHEST PAIN; Start 03/16/19 at 17:30 Acetaminophen (Tylenol Tab) 650 mg Q6H PRN PO .PAIN 1-3 OR TEMP; Start 03/16/19 at 17:30 Morphine Sulfate (morphine) 2 mg Q4H PRN IV .PAIN 7-10 Last administered on 04/01/19at 07:36; Admin Dose 2 MG; Start 03/16/19 at 17:30 Zolpidem Tartrate (Ambien) 5 mg QHS PRN PO .INSOMNIA Last administered on 03/29/19at 23:19; Admin Dose 5 MG; Start 03/16/19 at 17:30 Docusate Sodium (Colace) 100 mg Q12H PO Last administered on 04/01/19at 05:48; Admin Dose 100 MG; Start 03/16/19 at 17:30 Bisacodyl (Dulcolax) 5 mg DAILY PRN PO .CONSTIPATION; Start 03/16/19 at 17:30 Miscellaneous Information 1 ea NOTE XX ; Start 03/16/19 at 18:00 Glucose (Glutose) 15 gm Q15M PRN PO DECREASED GLUCOSE; Start 03/16/19 at 18:00 Glucose (Glutose) 22.5 gm Q15M PRN PO DECREASED GLUCOSE; Start 03/16/19 at 18:00 Dextrose (D50w Syringe) 25 ml Q15M PRN IV DECREASED GLUCOSE; Start 03/16/19 at 18:00 Dextrose (D50w Syringe) 50 ml Q15M PRN IV DECREASED GLUCOSE; Start 03/16/19 at 18:00 Glucagon (Glucagen) 1 mg Q15M PRN IM DECREASED GLUCOSE; Start 03/16/19 at 18:00 Glucose (Glutose) 15 gm Q15M PRN BUCCAL DECREASED GLUCOSE; Start 03/16/19 at 18:00 Pantoprazole (Protonix Tab) 40 mg DAILY@06 PO Last administered on 04/01/19 05:47; Admin Dose 40 MG; Start 03/17/19 at 06:00 Tacrolimus (Prograf) 2 mg AM PO Last administered on 04/01/19 08:56; Admin Dose 2 MG; Start 03/18/19 at 09:00 Mycophenolate Sodium (Myfortic) 180 mg Q12 PO Last administered on 04/01/19at 0 8:56; Admin Dose 180 MG; Start 03/17/19 at 21:00 Diagnostic Test (Pha) (Accu-Chek) 1 ea 02 XX Last administered on 04/01/19 02:00; Admin Dose 1 EA; Start 03/18/19 at 02:00 Guaifenesin/ Dextromethorphan (Robitussin Dm Liquid Cup) 10 ml Q4H PRN PO COUGH; Start 03/18/19 at 14:30 Hydralazine HCl (Apresoline) 10 mg Q4H PRN IV ELEVATED BLOOD PRESSURE Last administered on 03/29/19 22:09; Admin Dose 10 MG; Start 03/18/19 at 15:30 Metoclopramide HCl (Reglan) 5 mg TID PO Last administered on 04/01/19 08:55; Admin Dose 5 MG; Start 03/18/19 at 17:00 Simethicone (Mylicon) 80 mg Q6H PRN PO DISTENSION/GAS/BLOATING Last administered on 03/26/19 04:34; Admin Dose 80 MG; Start 03/18/19 at 17:30 Insulin Aspart (Novolog Insulin Pen) NOVOLOG *MODERATE* ALGORITHM WITH MEALS BEDTIME SC Last administered on 03/31/19 21:35; Admin Dose 1 UNIT; Start 03/18/19 at 21:00 Sodium Bicarbonate (Sodium Bicarbonate Tab) 650 mg BID PO Last administered on 04/01/19 09:00; Admin Dose 650 MG; Start 03/19/19 at 14:00 Ergocalciferol (Drisdol) 50,000 unit Sutton@09 PO Last administered on 03/28/19 12:31; Admin Dose 50,000 UNIT; Start 03/21/19 at 09:00 Acetaminophen/ Hydrocodone Bitart ([place] (5/325)) 2 tab Q4H PRN PO MODERATE to sever 5-10 Last administered on 04/01/19 04:44; Admin Dose 2 TAB; Start 03/20/19 at 22:30 Albuterol/ Ipratropium (Duoneb) 3 ml Q4H RESP THERAPY PRN HHN SHORTNESS OF BREATH; Start 03/23/19 at 04:00 Albuterol/ Ipratropium (Duoneb) 3 ml Q6HWA RESP THERAPY HHN Last administered on 03/31/19 21:05; Admin Dose 3 ML; Start 03/23/19 at 20:00 Insulin Glargine (Lantus) 10 units DAILY@2000 SC Last administered on 03/31/19 21:36; Admin Dose 10 UNITS; Start 03/24/19 at 20:00 Tacrolimus (Prograf) 1 mg HS PO Last administered on 03/31/19 21:21; Admin Dose 1 MG; Start 03/26/19 at 21:00 Diphenhydramine HCl (Benadryl) 25 mg Q6H PRN IV FOR ITCHING Last administered on 03/27/19 23:42; Admin Dose 25 MG; Start 03/27/19 at 23:30 Epoetin Fidencio-epbx (Retacrit (Esrd)) 3,000 unit MoWeFr@1700 SC ; Start 03/29/19 at 17:00 Multivit/Ca Carb/ B Cmplx/FA/Prenat (Alexandrea-Agustina) 1 tab DAILY PO Last administered on 04/01/19 08:56; Admin Dose 1 TAB; Start 03/29/19 at 09:00 Epoetin Fidencio-epbx (Retacrit (Esrd)) 2,000 unit MoWeFr@1700 SC ; Start 03/29/19 at 17:00 Prednisone (Prednisone) 10 mg DAILY PO Last administered on 04/01/19at 08:56; Admin Dose 10 MG; Start 03/29/19 at 09:00 Assessment/Plan Hospital Course (Demo Recall) Assessment recommendations; 1. Persistent hyperkalemia in a patient with renal insufficiency. Patient continues to decline Kayexalate. 2. Mild respiratory distress now improved likely secondary to acute bronchitis 3. History of hepatitis C 4. History of cadaveric renal transplant 5. Anemia Plan 1. Continue correction of hyperkalemia 2. Continue bronchodilators encourage out of bed 3. Hemodialysis as tolerated Consider transfer to [facility] EBNOI OGDEN MD, FCCP April 01, 2019 11:42
[2019-04-01] MEDS ORDERED: SODI650T PO (11:49)
[2019-04-01] MEDS ORDERED: METO5TAB2 PO (11:49)
[2019-04-01] MEDS ORDERED: TACR1CAP26 PO ×2 (11:49)
[2019-04-01] MEDS ORDERED: PRED10TA PO (11:49)
[2019-04-01] MEDS ORDERED: DOCU-144 PO (11:49)
[2019-04-01] MEDS ORDERED: ASPI-831 PO (11:49)
[2019-04-01] MEDS ORDERED: Insulin Glargine SC (11:49)
[2019-04-01] MEDS ORDERED: ERGO500013 PO (11:49)
[2019-04-01] MEDS ORDERED: PANT40TA4 PO (11:49)
[2019-04-01] MEDS ORDERED: KAYPO PO (11:49)
[2019-04-01] MEDS ORDERED: NEPH PO (11:49)
[2019-04-01 12:00] VITALS: PULSE 79
--- NOTE | 2019-04-01 12:32 | DS ---
Date/Time of Note Date/Time of Note DATE: 04/01/19 TIME: 12:27 Discharge Summary Admission/Discharge Info Admit Date/Time March 17, 2019 at 13:23 Discharge Date/Time Patient Condition: Stable Hx of Present Illness The patient is a 58-year-old male known to me from previous admission. Patient has extensive medical history including cadaveric kidney transplant in 2009 with chronic kidney disease stage IV, diabetes, hypertension, chronic HCV infection, 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 Patient presented to the emergency room with complaints of abdominal pain and decreased urinary output over 1 month. Patient noted to have worsening renal failure with hyperkalemia on evaluation in the emergency room. Patient also stated that he cannot stay flat while sleeping and complained of chest pain. Patient is complaining of nausea and nonbloody nonbilious emesis. Patient denies any fever chills. Urinalysis is positive for leukocyte esterase, protein and blood. Patient is started on Rocephin. Patient will be admitted for further evaluation and management. Hospital Course -Left lower lobe bronchopneumonia and multifocal bronchiolitis. Dr. Bush is following in pulmonology consultation. S/p Levaquin, on prednisone. -Possible sepsis secondary to possible pneumonia and UTI, resolved. Dr. Olmstead is following in infection disease consultation. -Acute renal failure on chronic kidney disease stage IV, status post cadaveric kidney transplant [place] [address]. [address] Allen is following in nephrology consultation. Patient refusing hemodialysis. -Hyperkalemia, status post Kayexalate, patient refusing Kayexalate -Moderate hydronephrosis, Dr. Noguera is following in urology consultation. -Possible pancreatitis, monitor lipase -Diabetes mellitus type 2 with diabetic neuropathy. HbgA1C is 6.2. Continue Tradjenta, Lantus and NovoLog. -Hypertension. -Anemia of chronic disease, status post blood transfusion. Patient refusing Epogen. -Chronic HCV infection -Rheumatoid arthritis -History of polysubstance and IV drug use -Poor medical compliance Plan of care discussed with Dr. Maier. Home Meds Active Scripts Sodium Polystyrene Sulfonate (Kayexalate) 15 Gm/60 Ml Susp, 15 GM PO DAILY for 3 Days, ML Prov:LETI RODRIGUEZ 04/01/19 Ergocalciferol (Vitamin D2) (VITAMIN D2) 50,000 Unit Capsule, 22109 UNIT PO Sutton@09 for 30 Days, CAP Prov:LETI RODRIGUEZ 04/01/19 Aspirin (Aspirin) 81 Mg Chew, 81 MG PO DAILY for 30 Days, TAB Prov:LETI RODRIGUEZ 04/01/19 Docusate Sodium* (Colace*) 100 Mg Capsule, 100 MG PO Q12H for 30 Days, CAP Prov:LETI RODRIGUEZ 04/01/19 Metoclopramide Hcl* (Metoclopramide Hcl*) 5 Mg Tablet, 5 MG PO TID for 30 Days, TAB Prov:LETI RODRIGUEZ 04/01/19 Pantoprazole* (Pantoprazole*) 40 Mg Tablet.dr, 40 MG PO DAILY@ for 30 Days Prov:LETI RODRIGUEZ 04/01/19 [Insulin Glargine] 100 UNITS/ML SOLN No Conflict Check, 10 UNITS SC DAILY@1999 for 30 Days Prov:LETI RODRIGUEZ 04/01/19 Sodium Bicarbonate (Antacid) 650 Mg Tablet, 650 MG PO BID for 30 Days, TAB Prov:LETI RODRIGUEZ 04/01/19 Multivit/Ca Carb/B Cmplx/Fa* (Alexandrea-Agustina*) 1 Tab Tab, 1 TAB PO DAILY for 30 Days, TAB Prov:LETI RODRIGUEZ 04/01/19 Tacrolimus* (Prograf*) 1 Mg Capsule, 2 MG PO AM for 30 Days, CAP Prov:LETI RODRIGUEZ 04/01/19 Tacrolimus* (Prograf*) 1 Mg Capsule, 1 MG PO HS for 30 Days, CAP Prov:LETI RODRIGUEZ 04/01/19 Prednisone* (Prednisone*) 10 Mg Tab, 10 MG PO DAILY for 30 Days, TAB Prov:LETI RODRIGUEZ 04/01/19 Tacrolimus* (Prograf*) 1 Mg Capsule, 2 MG PO Q12 for 30 Days, CAP Prov:LETI RODRIGUEZ 01/19/19 Reported Medications Insulin Lispro (Humalog) 100 Unit/1 Ml Cartridge, 0 SQ SLIDING SCALE, EA 2-10 UNITS 03/16/19 Mycophenolate Sodium* (Mycophenolic Acid*) 180 Mg Tablet.dr, 180 MG PO Q12, TAB 03/16/19 Prednisone* (Prednisone*) 5 Mg Tab, 5 MG PO DAILY, TAB 12/09/18 Follow-up Plan Follow-up with Dr. Meyers in 1 week, [facility]BU in 1 week. Primary Care Provider [facility] Time spent on discharge: > 30 minutes Pending Labs Laboratory Tests Test 03/31/19 17:23 03/31/19 21:20 04/01/19 02:13 04/01/19 07:40 Bedside 268 214 138 102 Glucose mg/dL (70-220) mg/dL (70-220) mg/dL (70-220) mg/dL (70-220) Test 04/01/19 07:48 04/01/19 08:05 04/01/19 11:38 Lab Scanned BLOOD TRANSFUSI Report ON White Blood 7.3 Count 10^3/ul (4.8-1 0.8) Red Blood 2.72 Count 10^6/ul (4.70- 6.10) Hemoglobin 8.8 g/dl (14.0-18. 0) Hematocrit 26.6 % (42.0-52.0) Mean 97.8 Corpuscular fl (82.0-101.0 Volume ) Mean 32.4 Corpuscular pg (29.0-33.0) Hemoglobin Mean 33.1 Corpuscular g/dl (32.0-37. Hemoglobin Conc 0) ent Red Cell 15.3 Distribution % (11.5-14.5) Width Platelet Count 168 10^3/UL (140-4 15) Mean Platelet 9.7 Volume fl (7.4-10.4) Immature 0.500 Granulocytes % % (0.001-0.429 ) Neutrophils % 72.5 % (39.0-77.0) Lymphocytes % 14.2 % (15.0-51.0) Monocytes % 9.3 % (0.0-11.0) Eosinophils % 3.4 % (0.0-7.0) Basophils % 0.1 % (0.0-2.0) Nucleated Red 0.0 Blood Cells % /100WBC (0.0-0 .0) Immature 0.040 Granulocytes # 10^3/ul (0.0-0 .031) Neutrophils # 5.3 10^3/ul (1.6-7 .5) Lymphocytes # 1.0 10^3/ul (0.8-2 .9) Monocytes # 0.7 10^3/ul (0.3-0 .9) Eosinophils # 0.3 10^3/ul (0.0-0 .5) Basophils # 0.0 10^3/ul (0.0-0 .1) Nucleated Red 0.0 Blood Cells # 10^3/ul (0.0-0 .0) Sodium Level 138 mmol/L (135-14 4) Potassium 5.3 Level mmol/L (3.5-5. 1) Chloride Level 111 mmol/L (97-110 ) Carbon Dioxide 19 Level mmol/L (21-31) Anion Gap 8 (5-13) Blood Urea 112 Nitrogen mg/dl (7-20) Creatinine 3.95 mg/dl (0.61-1. 24) Est Glomerular 16 Filtrat mL/min (>60) Rate mL/min Glucose Level 66 mg/dl (70-220) Calcium Level 8.6 mg/dl (8.4-10. 2) Bedside 97 Glucose mg/dL (70-220) LETI RODRIGUEZ April 01, 2019 12:32
--- NOTE | 2019-04-01 13:25 | CONS ---
[facility] HCIS Consult Follow-up Patient Name: Esvin Manley Unit Number: [id number] Date of : 1960 Patient Status: Admitted Inpatient Attending Doctor: Lupe Kaplan MD Edit: MAGO JOHNSON M.D. on 04/02/19 @ 15:37 Elizabeth: I discussed the management with DRY ICE MACHINE OPERATOR Ralph and agree Assessment/Plan Assessment/Plan Hospital Course (Demo Recall) # respiratory - dyspnea due to possible pneumonia vs. bronchiolitis; s/p levofloxacin 03/25/2019-03/29/2019 - 03/24/19 CT Chest showed nodular consolidation in the left lower lobe is in keeping with bronchopneumonia and there is also multifocal bronchiolitis greatest in the left greater than right lower lobes that is likely also infectious. # musculoskeletal, dermatological - L should pain, XR ion 03/30/2019 showed possibly a calcified loose body/calcific bursitis - h/o OM of R 4th digit: swelling with new erosive changes and osteopenia of the underlying R 4th distal phalanx, suggestive of osteomyelitis; wound culture grew Serratia on 03/18/18 and Serratia + CoNS (likely colonizer) on 04/04/18 ; Pt declined amputation. ESR 39 on 03/18/2018. S/p Levaquin x 6 weeks - Hx mild subtle increased activity within the upper aspect of LUE, nonspecific, on WBC tagged scan on 04/05/2018 - Hx OM of R 3rd fingertip (XR showed periosteal reaction at the tip of R 3rd distal phalanx, suspicious for OM, MRI showed cellulitis of distal R 4th phalanx, without OM) and L 2nd fingertip (XR showed cortical irregularity at the tuft of L 2nd distal phalanx with overlying soft tissue defect, suggesting early OM, MRI showed OM at L 2nd distal phalanx with, cellulitis about L 2nd distal ph alanx without drainable fluid collection.) - Hx OM of R 2nd finger s/p amputation at proximal phalanx neck. The exposed area is open but dry and has no purulence, erythema or tenderness - h/o OM of L 3rd finger s/p amputation at middle and distal phalanges - h/o onychomycosis, tinea pedis - Seen by General Production Manager during last admit # cardiovascular, heme - HTN - h/o BLE atherosclerosis - Seen by Vascular Surgery in the past - Anemia of chronic disease with h/o pernicious anemia - h/o thrombosed graft of LUE # renal/uro - recurrent acute on chronic renal failure with hyperkalemia - h/o calcification of the vas deferens with a persistent hydrocele within the scrotum per CT 01/12/19 - ho MRSA and K. pneumoniae in urine culture on 12/09/2018 - UA was neg for pyuria - Hx ESRD, was on HD. Pt declined placement of a new HD catheter - S/p renal transplant in 2009 (on tacrolimus, mycophenolate and prednisone), chronic renal insufficiency at baseline # bacteremia, history of endocarditis - h/o bacteremia d/t MSSA 12/09/2018 - Dr. Olmstead rec'd call from [facility] 01/15/19 regarding this; Pt completed cefazolin through the end of 01/2019 # endo and GI - DM - Hgb A1c 6.2% - Dyslipidemia - H/o hematoma within the right lateral abdominal wall musculature which has developed since the previous study done 12/13/2018 measuring 7.3 x 4.6 cm in cross diameter and extending an acrylic that dimension approximately 10.7 cm from the level of the superior pole of the [place] right kidney to just inferior to the right iliac crest per CT 01/12/19 - Hx Juan's esophagus and gastritis s/p EGD on 08/12/2017. No H. pylori on Bx - Hx hyperparathyroidism - Chronic HCV infection # anemia - probably multifactorial, ESRD but also possibly persistent hematoma of L flank/lower back # other conditions - Rheumatoid arthritis - Hx polysubstance and IV drug use. - Major depressive disorder Recommendation: - pending results: coccidioides - monitor off antibiotics: s/p levofloxacin Management d/w patient, ARJUN Marin and with Dr. Johnson Consultation Date/Type/Reason Admit Date/Time March 17, 2019 at 13:23 Initial Consult Date 03/25/19 Type of Consult Infectious Disease Requesting Provider: LUPE KAPLAN MD Date/Time of Note DATE: 04/01/19 TIME: 13:22 24 HR Interval Summary Free Text/Dictation Crypto not detected. US shows no focal mass or fluid collection visualized in the soft tissues of the left flank. DC planning for home today per d/w nursing. Denies pain, SOB, n/v/d, dysuria. Pt asking if he can take a plastic urinal home. Exam/Review of Systems Exam Vitals Vital Signs Date Temp Pulse Resp B/P (MAP) Pulse Ox O2 O2 Flow FiO2 Time Delivery Rate 04/01/19 79 12:00 04/01/19 98.4 18 115/84 97 Room Air 11:05 (94) 04/01/19 2.0 04:55 03/29/19 33 02:29 Intake and Output 03/31/19 03/31/19 04/01/19 1515:00 23:00 07:00 IntakeIntake Total 990 ml 800 ml OutputOutput Total 880 ml 550 ml BalanceBalance 110 ml 250 ml Exam Gastrointestinal: soft, other (ecchymosis covering L flank, L middle-lower back, non-TTP) Musculoskeletal: muscle weakness (Lshoulder abduction is not possible), range of motion (L shoulder), other (s/p amputation of distal R 2nd and L 3rd digits, +partial amputation of R 3rd digit with exposed bone. Non-TTP, non-purulent) 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: ENGLISH PROFESSOR II-XII intact, nl mental status, nl speech Constitutional: alert, oriented, frail Psych: no complaints, nl mood/affect Head: normocephalic Eyes: nl conjunctiva, nl lids, nl sclera ENMT: nl external ears & nose, nl nasal mucosa & septum, mucosa pink and moist Neck: supple Respiratory: clear to auscultation, normal air movement Cardiovascular: regular rate and rhythm, nl pulses; No edema Gastrointestinal: soft, non-tender Extremities: normal pulses, other (partial amputation noted of L 2nd and R 3rd fingers); No edema Skin: nl turgor, ecchymosis (L flank, L middle/lower back) Results Result Diagram: 04/01/19 0804/01/19 08 Results 24hrs Laboratory Tests Test 03/31/19 17:23 03/31/19 21:20 04/01/19 02:13 04/01/19 07:40 Bedside Glucose 268 H 214 138 102 Test 04/01/19 07:48 04/01/19 08:05 04/01/19 11:38 Lab Scanned BLOOD TRANSFUSIO Report N White Blood Count 7.3 Red Blood Count 2.72 #L Hemoglobin 8.8 #L Hematocrit 26.6 #L Mean Corpuscular 97.8 Volume Mean Corpuscular 32.4 Hemoglobin Mean Corpuscular 33.1 Hemoglobin Concen t Red Cell 15.3 H Distribution Width Platelet Count 168 Mean Platelet 9.7 Volume Immature 0.500 H Granulocytes % Neutrophils % 72.5 Lymphocytes % 14.2 L Monocytes % 9.3 Eosinophils % 3.4 Basophils % 0.1 Nucleated Red 0.0 Blood Cells % Immature 0.040 H Granulocytes # Neutrophils # 5.3 Lymphocytes # 1.0 Monocytes # 0.7 Eosinophils # 0.3 Basophils # 0.0 Nucleated Red 0.0 Blood Cells # Sodium Level 138 Potassium Level 5.3 H Chloride Level 111 H Carbon Dioxide 19 L Level Anion Gap 8 Blood Urea 112 H Nitrogen Creatinine 3.95 H Est Glomerular 16 L Filtrat Rate mL/min Glucose Level 66 #L Calcium Level 8.6 Bedside Glucose 97 Imaging Imaging US soft tissues of the left flank 03/31/2019: No focal mass or fluid collection visualized in the soft tissues of the left flank. Echogenic material noted within the urinary bladder. Small amount of ascites in the left upper quadrant and pelvis.. Follow-up CT is recommended. Medications Medication Current Medications IV Flush (NS 3 ml) 3 ml PER PROTOCOL IV ; Start 03/16/19 at 17:30 Ondansetron HCl (Zofran Inj) 4 mg Q6H PRN IV NAUSEA/VOMITING Last administered on 03/31/19at 15:53; Admin Dose 4 MG; Start 03/16/19 at 17:30 Aspirin (Aspirin) 81 mg DAILY PO Last administered on 04/01/19at 08:55; Admin Dose 81 MG; Start 03/17/19 at 09:00 Nitroglycerin (Nitroglycerin (Sl Tab) 0.4 Mg) 1 tab Q5M PRN SL .CHEST PAIN; Start 03/16/19 at 17:30 Acetaminophen (Tylenol Tab) 650 mg Q6H PRN PO .PAIN 1-3 OR TEMP; Start 03/16/19 at 17:30 Morphine Sulfate (morphine) 2 mg Q4H PRN IV .PAIN 7-10 Last administered on 04/01/19at 07:36; Admin Dose 2 MG; Start 03/16/19 at 17:30 Zolpidem Tartrate (Ambien) 5 mg QHS PRN PO .INSOMNIA Last administered on 03/29/19 23:19; Admin Dose 5 MG; Start 03/16/19 at 17:30 Docusate Sodium (Colace) 100 mg Q12H PO Last administered on 04/01/19 05:48; Admin Dose 100 MG; Start 03/16/19 at 17:30 Bisacodyl (Dulcolax) 5 mg DAILY PRN PO .CONSTIPATION; Start 03/16/19 at 17:30 Miscellaneous Information 1 ea NOTE XX ; Start 03/16/19 at 18:00 Glucose (Glutose) 15 gm Q15M PRN PO DECREASED GLUCOSE; Start 03/16/19 at 18:00 Glucose (Glutose) 22.5 gm Q15M PRN PO DECREASED GLUCOSE; Start 03/16/19 at 18:00 Dextrose (D50w Syringe) 25 ml Q15M PRN IV DECREASED GLUCOSE; Start 03/16/19 at 18:00 Dextrose (D50w Syringe) 50 ml Q15M PRN IV DECREASED GLUCOSE; Start 03/16/19 at 18:00 Glucagon (Glucagen) 1 mg Q15M PRN IM DECREASED GLUCOSE; Start 03/16/19 at 18:00 Glucose (Glutose) 15 gm Q15M PRN BUCCAL DECREASED GLUCOSE; Start 03/16/19 at 18:00 Pantoprazole (Protonix Tab) 40 mg DAILY@06 PO Last administered on 04/01/19at 05:47; Admin Dose 40 MG; Start 03/17/19 at 06:00 Tacrolimus (Prograf) 2 mg AM PO Last administered on 04/01/19 08:56; Admin Dose 2 MG; Start 03/18/19 at 09:00 Mycophenolate Sodium (Myfortic) 180 mg Q12 PO Last administered on 04/01/19 08:56; Admin Dose 180 MG; Start 03/17/19 at 21:00 Diagnostic Test (Pha) (Accu-Chek) 1 ea 02 XX Last administered on 04/01/19 02:00; Admin Dose 1 EA; Start 03/18/19 at 02:00 Guaifenesin/ Dextromethorphan (Robitussin Dm Liquid Cup) 10 ml Q4H PRN PO COUG H; Start 03/18/19 at 14:30 Hydralazine HCl (Apresoline) 10 mg Q4H PRN IV ELEVATED BLOOD PRESSURE Last administered on 03/29/19 22:09; Admin Dose 10 MG; Start 03/18/19 at 15:30 Metoclopramide HCl (Reglan) 5 mg TID PO Last administered on 04/01/19 08:55; Admin Dose 5 MG; Start 03/18/19 at 17:00 Simethicone (Mylicon) 80 mg Q6H PRN PO DISTENSION/GAS/BLOATING Last administered on 03/26/19 04:34; Admin Dose 80 MG; Start 03/18/19 at 17:30 Insulin Aspart (Novolog Insulin Pen) NOVOLOG *MODERATE* ALGORITHM WITH MEALS BEDTIME SC Last administered on 03/31/19 21:35; Admin Dose 1 UNIT; Start 03/18 at 21:00 Sodium Bicarbonate (Sodium Bicarbonate Tab) 650 mg BID PO Last administered on 04/01/19 09:00; Admin Dose 650 MG; Start 03/19/19 at 14:00 Ergocalciferol (Drisdol) 50,000 unit Sutton@09 PO Last administered on 03/28/19 12:31; Admin Dose 50,000 UNIT; Start 03/21/19 at 09:00 Acetaminophen/ Hydrocodone Bitart ([place] (5/325)) 2 tab Q4H PRN PO MODERATE to sever 5-10 Last administered on 04/01/19 11:41; Admin Dose 2 TAB; Start 03/20/19 at 22:30 Albuterol/ Ipratropium (Duoneb) 3 ml Q4H RESP THERAPY PRN HHN SHORTNESS OF BREATH; Start 03/23/19 at 04:00 Albuterol/ Ipratropium (Duoneb) 3 ml Q6HWA RESP THERAPY HHN Last administered on 03/31/19 21:05; Admin Dose 3 ML; Start 03/23/19 at 20:00 Insulin Glargine (Lantus) 10 units DAILY@2000 SC Last administered on 03/31/19 21:36; Admin Dose 10 UNITS; Start 03/24/19 at 20:00 Tacrolimus (Prograf) 1 mg HS PO Last administered on 03/31/19 21:21; Admin Dose 1 MG; Start 03/26/19 at 21:00 Diphenhydramine HCl (Benadryl) 25 mg Q6H PRN IV FOR ITCHING Last administered on 03/27/19at 23:42; Admin Dose 25 MG; Start 03/27/19 at 23:30 Epoetin Fidencio-epbx (Retacrit (Esrd)) 3,000 unit MoWeFr@1700 SC ; Start 03/29/19 at 17:00 Multivit/Ca Carb/ B Cmplx/FA/Prenat (Alexandrea-Agustina) 1 tab DAILY PO Last administered on 04/01/19 08:56; Admin Dose 1 TAB; Start 03/29/19 at 09:00 Epoetin Fidencio-epbx (Retacrit (Esrd)) 2,000 unit MoWeFr@1700 SC ; Start 03/29/19 at 17:00 Prednisone (Prednisone) 10 mg DAILY PO Last administered on 04/01/19 08:56; Admin Dose 10 MG; Start 03/29/19 at 09:00 CYNTHIA SHANNON NP April 01, 2019 13:25
--- NOTE | 2019-04-01 14:53 | CONS ---
Assessment/Plan Assessment/Plan Assessment/Plan (Daily) . Hyperkalemia, could be secondary to worsening renal failure. 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 PT started on HD, not successful. The access in right groin is failed then now; Pt refused new HD access 2. Abdominal pain with chills. 4. Acute on chronic renal failure. The patient had chronic kidney disease IV in the past with a creatinine of 3.2 to 3.4. It could be exacerbated by acute hemodynamic changes with sepsis. vs hydronephrosis vs ATN vs progression of disease, pt has underlying DM nephropathy 5. Elevated lipase. [facility] is notorious for very sensitive lipase level 6. Urinary tract infection. 7. Pneumonia. 8. Anemia, severe. Pt has a drop in Hg 9. History of hepatitis C. 10. History of donor renal transplantation. 11. metabolic acidosis likely secondary to renal failure 12. Non compliance. He had refused p.o. Kayexalate and Veltassa few times 13, Pneumonia 14. vit d deficiency Assessment/Plan (Daily) -HD catheter was removed and pt refused further HD access and says he wants to wait, explained to him about his labs, hyperkalemia but says he has time -He is also been refusing most of his medications/Epogen - He is not Not ready for hemodialysis - once cleared by pscy , consider discharge as refusing interventions - kayexlate today for hyperkalemia but refused - cw prograft 2/`, mycophenolate - cw prednisone 10 mg> 5 mg on dc - pt understands all consequences of refusing medications on dc pt will need close fu with either Dr Meyers in 1 week with [facility] or [facility] since he follows there for transplant Consultation Date/Type/Reason Admit Date/Time March 17, 2019 at 13:23 Initial Consult Date Requesting Provider: LUPE KAPLAN MD Date/Time of Note DATE: 04/01/19 TIME: 14:52 24 HR Interval Summary Free Text/Dictation Patient refused Kayexalate yesterday. Potassium is 5.3 Still refusing hemodialysis and Kayexalate Exam/Review of Systems Exam Vitals Vital Signs Date Temp Pulse Resp B/P (MAP) Pulse Ox O2 O2 Flow FiO2 Time Delivery Rate 04/01/19 79 12:00 04/01/19 98.4 18 115/84 97 Room Air 11:05 (94) 04/01/19 2.0 04:55 03/29/19 33 02:29 Intake and Output 03/31/19 03/31/19 04/01/19 1515:00 23:00 07:00 IntakeIntake Total 990 ml 800 ml OutputOutput Total 880 ml 550 ml BalanceBalance 110 ml 250 ml Exam Constitutional: alert, oriented, thin Psych: depression Eyes: nl conjunctiva ENMT: nl external ears & nose Respiratory: dec breath sounds Cardiovascular: regular rate and rhythm Gastrointestinal: soft, RLQ kidney pre left AV graft Results Result Diagram: 04/01/19 0805 04/01/19 0805 Results 24hrs Laboratory Tests Test 03/31/19 17:23 03/31/19 21:20 04/01/19 02:13 04/01/19 07:40 Bedside Glucose 268 H 214 138 102 Test 04/01/19 07:48 04/01/19 08:05 04/01/19 11:38 Lab Scanned BLOOD TRANSFUSIO Report N White Blood Count 7.3 Red Blood Count 2.72 #L Hemoglobin 8.8 #L Hematocrit 26.6 #L Mean Corpuscular 97.8 Volume Mean Corpuscular 32.4 Hemoglobin Mean Corpuscular 33.1 Hemoglobin Concen t Red Cell 15.3 H Distribution Width Platelet Count 168 Mean Platelet 9.7 Volume Immature 0.500 H Granulocytes % Neutrophils % 72.5 Lymphocytes % 14.2 L Monocytes % 9.3 Eosinophils % 3.4 Basophils % 0.1 Nucleated Red 0.0 Blood Cells % Immature 0.040 H Granulocytes # Neutrophils # 5.3 Lymphocytes # 1.0 Monocytes # 0.7 Eosinophils # 0.3 Basophils # 0.0 Nucleated Red 0.0 Blood Cells # Sodium Level 138 Potassium Level 5.3 H Chloride Level 111 H Carbon Dioxide 19 L Level Anion Gap 8 Blood Urea 112 H Nitrogen Creatinine 3.95 H Est Glomerular 16 L Filtrat Rate mL/min Glucose Level 66 #L Calcium Level 8.6 Bedside Glucose 97 Medications Medication Current Medications IV Flush (NS 3 ml) 3 ml PER PROTOCOL IV ; Start 03/16/19 at 17:30 Ondansetron HCl (Zofran Inj) 4 mg Q6H PRN IV NAUSEA/VOMITING Last administered on 03/31/19at 15:53; Admin Dose 4 MG; Start 03/16/19 at 17:30 Aspirin (Aspirin) 81 mg DAILY PO Last administered on 04/01/19at 08:55; Admin Dose 81 MG; Start 03/17/19 at 09:00 Nitroglycerin (Nitroglycerin (Sl Tab) 0.4 Mg) 1 tab Q5M PRN SL .CHEST PAIN; Start 03/16/19 at 17:30 Acetaminophen (Tylenol Tab) 650 mg Q6H PRN PO .PAIN 1-3 OR TEMP; Start 03/16/19 at 17:30 Morphine Sulfate (morphine) 2 mg Q4H PRN IV .PAIN 7-10 Last administered on 04/01/19 07:36; Admin Dose 2 MG; Start 03/16/19 at 17:30 Zolpidem Tartrate (Ambien) 5 mg QHS PRN PO .INSOMNIA Last administered on 03/29/19at 23:19; Admin Dose 5 MG; Start 03/16/19 at 17:30 Docusate Sodium (Colace) 100 mg Q12H PO Last administered on 04/01/19at 05:48; Admin Dose 100 MG; Start 03/16/19 at 17:30 Bisacodyl (Dulcolax) 5 mg DAILY PRN PO .CONSTIPATION; Start 03/16/19 at 17:30 Miscellaneous Information 1 ea NOTE XX ; Start 03/16/19 at 18:00 Glucose (Glutose) 15 gm Q15M PRN PO DECREASED GLUCOSE; Start 03/16/19 at 18:00 Glucose (Glutose) 22.5 gm Q15M PRN PO DECREASED GLUCOSE; Start 03/16/19 at 18:00 Dextrose (D50w Syringe) 25 ml Q15M PRN IV DECREASED GLUCOSE; Start 03/16/19 at 18:00 Dextrose (D50w Syringe) 50 ml Q15M PRN IV DECREASED GLUCOSE; Start 03/16/19 at 18:00 Glucagon (Glucagen) 1 mg Q15M PRN IM DECREASED GLUCOSE; Start 03/16/19 at 18:00 Glucose (Glutose) 15 gm Q15M PRN BUCCAL DECREASED GLUCOSE; Start 03/16/19 at 18:00 Pantoprazole (Protonix Tab) 40 mg DAILY@06 PO Last administered on 04/01/19at 05:47; Admin Dose 40 MG; Start 03/17/19 at 06:00 Tacrolimus (Prograf) 2 mg AM PO Last administered on 04/01/19 08:56; Admin Dose 2 MG; Start 03/18/19 at 09:00 Mycophenolate Sodium (Myfortic) 180 mg Q12 PO Last administered on 04/01/19 08:56; Admin Dose 180 MG; Start 03/17/19 at 21:00 Diagnostic Test (Pha) (Accu-Chek) 1 ea 02 XX Last administered on 04/01/19 02:00; Admin Dose 1 EA; Start 03/18/19 at 02:00 Guaifenesin/ Dextromethorphan (Robitussin Dm Liquid Cup) 10 ml Q4H PRN PO COUGH; Start 03/18/19 at 14:30 Hydralazine HCl (Apresoline) 10 mg Q4H PRN IV ELEVATED BLOOD PRESSURE Last administered on 03/29/19 22:09; Admin Dose 10 MG; Start 03/18/19 at 15:30 Metoclopramide HCl (Reglan) 5 mg TID PO Last administered on 04/01/19 13:52; Admin Dose 5 MG; Start 03/18/19 at 17:00 Simethicone (Mylicon) 80 mg Q6H PRN PO DISTENSION/GAS/BLOATING Last administered on 03/26/19 04:34; Admin Dose 80 MG; Start 03/18/19 at 17:30 Insulin Aspart (Novolog Insulin Pen) NOVOLOG *MODERATE* ALGORITHM WITH MEALS BEDTIME SC Last administered on 03/31/19 21:35; Admin Dose 1 UNIT; Start 03/18/19 at 21:00 Sodium Bicarbonate (Sodium Bicarbonate Tab) 650 mg BID PO Last administered on 04/01/19 09:00; Admin Dose 650 MG; Start 03/19/19 at 14:00 Ergocalciferol (Drisdol) 50,000 unit Sutton@09 PO Last administered on 03/28/19 12:31; Admin Dose 50,000 UNIT; Start 03/21/19 at 09:00 Acetaminophen/ Hydrocodone Bitart ([place] (5/325)) 2 tab Q4H PRN PO MODERATE to sever 5-10 Last administered on 04/01/19 11:41; Admin Dose 2 TAB; Start 03/20/19 at 22:30 Albuterol/ Ipratropium (Duoneb) 3 ml Q4H RESP THERAPY PRN HHN SHORTNESS OF BREATH; Start 03/23/19 at 04:00 Albuterol/ Ipratropium (Duoneb) 3 ml Q6HWA RESP THERAPY HHN Last administered on 03/31/19 21:05; Admin Dose 3 ML; Start 03/23/19 at 20:00 Insulin Glargine (Lantus) 10 units DAILY@2000 SC Last administered on 03/31/19at 21:36; Admin Dose 10 UNITS; Start 03/24/19 at 20:00 Tacrolimus (Prograf) 1 mg HS PO Last administered on 03/31/19 21:21; Admin Dose 1 MG; Start 03/26/19 at 21:00 Diphenhydramine HCl (Benadryl) 25 mg Q6H PRN IV FOR ITCHING Last administered on 03/27/19at 23:42; Admin Dose 25 MG; Start 03/27/19 at 23:30 Epoetin Fidencio-epbx (Retacrit (Esrd)) 3,000 unit MoWeFr@1700 SC ; Start 03/29/19 at 17:00 Multivit/Ca Carb/ B Cmplx/FA/Prenat (Alexandrea-Agustina) 1 tab DAILY PO Last a dministered on 04/01/19 08:56; Admin Dose 1 TAB; Start 03/29/19 at 09:00 Epoetin Fidencio-epbx (Retacrit (Esrd)) 2,000 unit MoWeFr@1700 SC ; Start 03/29/19 at 17:00 Prednisone (Prednisone) 10 mg DAILY PO Last administered on 04/01/19 08:56; Admin Dose 10 MG; Start 03/29/19 at 09:00 HARVINDER BLOOD MD April 01, 2019 14:53
== END 2019-04-01 15:31 | disposition home or self-care (01) | DRG 871 ==
LOC: E/R 12:15 → TEL 14:59 → OBSVTOIN 03-17 13:23 → TEL 03-20 20:41
PROVIDERS: ADMIT Internal Medicine; ATTEND Internal Medicine
PROC: 30233N1 Transfusion of Nonautologous Red Blood Cells into Peripheral Vein, Percutaneous Approach (ICD-10-PCS; 2019-03-24)
PROC: 06HY33Z Insertion of Infusion Device into Lower Vein, Percutaneous Approach (ICD-10-PCS; principal; 2019-03-27)
PROC: 5A1D70Z Performance of Urinary Filtration, Intermittent, Less than 6 Hours Per Day (ICD-10-PCS; 2019-03-27)
DX: A41.9 Sepsis, unspecified organism (principal); K85.90 Acute pancreatitis without necrosis or infection, unspecified; J18.1 Lobar pneumonia, unspecified organism; N17.9 Acute kidney failure, unspecified; I13.0 Hypertensive heart and chronic kidney disease with heart failure and stage 1 through stage 4 chronic kidney disease, or unspecified chronic kidney disease; Z94.0 Kidney transplant status; E87.2 Acidosis; N18.4 Chronic kidney disease, stage 4 (severe); N13.6 Pyonephrosis; F33.9 Major depressive disorder, recurrent, unspecified; D63.1 Anemia in chronic kidney disease; E55.9 Vitamin D deficiency, unspecified; E11.22 Type 2 diabetes mellitus with diabetic chronic kidney disease; E87.5 Hyperkalemia; E11.40 Type 2 diabetes mellitus with diabetic neuropathy, unspecified; E78.5 Hyperlipidemia, unspecified; E11.51 Type 2 diabetes mellitus with diabetic peripheral angiopathy without gangrene; E21.3 Hyperparathyroidism, unspecified; E11.21 Type 2 diabetes mellitus with diabetic nephropathy; I50.9 Heart failure, unspecified; I25.10 Atherosclerotic heart disease of native coronary artery without angina pectoris; K22.70 Barrett's esophagus without dysplasia; M06.9 Rheumatoid arthritis, unspecified; N43.3 Hydrocele, unspecified; B18.2 Chronic viral hepatitis C; B35.1 Tinea unguium; B35.3 Tinea pedis; T85.868A Thrombosis due to other internal prosthetic devices, implants and grafts, initial encounter; Z86.79 Personal history of other diseases of the circulatory system; Z89.022 Acquired absence of left finger(s); Z89.021 Acquired absence of right finger(s); Z79.82 Long term (current) use of aspirin; Z79.4 Long term (current) use of insulin; Z79.52 Long term (current) use of systemic steroids; Z79.899 Other long term (current) drug therapy; Z91.14 Patient's other noncompliance with medication regimen
CPT/HCPCS: 36430; 36600; 71045; 71250; 73030; 76536; 76775; 80048; 80053; 80197; 81001; 81003; 82652; 82803; 82962; 83036; 83605; 83690; 83735; 83880; 84100; 84132; 84145; 84484; 85025; 85610; 85730; 86635; 86641; 86703; 86850; 86900; 86901; 86920; 87070; 87086; 87340; 90935; 93005; 94640; 94664; G0378; J0360; J0696; J1170; J1200; J1644; J1815; J1940; J2060; J2150; J2270; J2405; J2920; J7040; J7042; J7070; J7507; J7512; P9016; P9047; Q5105

== ENCOUNTER 2019-06-27 21:09 | Emergency (ER) | payer OTHER ==
[~2019-06-27] VITALS: Ht 167.6 cm; Wt 59.1 kg
[~2019-06-27 21:09] MED LIST changes: +ASPI-831 PO; -CEFA2PLA9 IV; +CEPH-443 PO; +CLON0.2T5 ORAL; +DOCU-144 PO; +ERGO500013 PO; -ESCI10TA48 PO; -FURO40TA4 PO; +GLIP10TA14 PO; +HYDR-3609 ORAL; -HYDR-3671 PO; +Insulin Glargine SC; +KAYPO PO; +METO5TAB2 PO; +MYCO180T2 PO; +NEPH PO; +NIFE30TA23 ORAL; -ONDA4TAB13 PO; +PRED10TA PO; -PRED5TAB PO; +SITA50TA2 ORAL; -SITA50TA2 PO; +SODI650T PO
[2019-06-27 21:11] VITALS: Ht 167.6 cm; Wt 59.1 kg
[2019-06-27 21:47] VITALS: BP 126/84; PULSE 86; RESP 16
== END 2019-06-27 22:11 | disposition home or self-care (01) ==
LOC: E/R 21:09
DX: T23.121A Burn of first degree of single right finger (nail) except thumb, initial encounter (principal); E11.9 Type 2 diabetes mellitus without complications; X19.XXXA Contact with other heat and hot substances, initial encounter; Y92.9 Unspecified place or not applicable; Z79.4 Long term (current) use of insulin; Z79.82 Long term (current) use of aspirin
CPT/HCPCS: 99283

== ENCOUNTER 2019-07-02 10:34 | Inpatient (IN) | payer OTHER ==
[2019-07-02] VITALS (14 sets, daily range): BP systolic 95–190; BP diastolic 46–98; PULSE 63–82; RESP 18; Ht 172.7 cm; Wt 47.0 kg
[~2019-07-02] VITALS: Ht 172.7 cm; Wt 47.0 kg
[~2019-07-02 10:34] MED LIST changes: +AMLO-147 PO; +APIX2.5T PO; +ASPI-817 PO; +BENA10TA6 PO; +BUME1TAB3 PO; +CEFA2SYR IV; +CIPR500T4 PO; +CLON-379 PO; +HALF81 PO; +HYDR-3671 PO; +HYDR-4011 PO; +LACT1CAP28 PO; +LANT3I SC; +LINA5TAB PO; +METO-429 PO; +METO-448 PO; +NIFE30TA2 PO; +NIFE60TA2 PO; +PRED5TAB PO; +[UNRECOGNIZED DRUG - CODE] MC
[2019-07-02] MEDS ORDERED: KETOROLAC 15 MG INJ IV STA (12:41)
[2019-07-02] MEDS ORDERED: LACTATED RINGER'S 1,000 ML IV STA (12:41)
[2019-07-02] MEDS ORDERED: ACETAMINOPHEN 325 MG TAB PO PRN ×2 (15:30→16:00)
[2019-07-02] MEDS ORDERED: ONDANSETRON 4 MG INJ IV PRN (15:30)
[2019-07-02] MEDS ORDERED: ERTAPENEM SODIUM 1 GM in SOD CHLORIDE 0.9% 100 ML IVPB ONE (16:00)
[2019-07-02] MEDS ORDERED: NACL 0.9% 3 ML SYG IV SCH (16:00)
[2019-07-02] MEDS ORDERED: MAGNESIUM HYDROXIDE 30ML CUP PO PRN (16:00)
[2019-07-02] MEDS ORDERED: hydrALAzine 20 MG INJ IV PRN (16:00)
[2019-07-02] MEDS ORDERED: DOCUSATE SODIUM 100 MG CAP PO PRN (16:00)
[2019-07-02] MEDS ORDERED: HYDROCODONE/APAP (5/325) TAB PO PRN ×2 (16:00→17:00)
[2019-07-02] MEDS ORDERED: ALBUTEROL/IPRATROPIUM (NEB) 3 ML AMP HHN PRN (16:00)
[2019-07-02] MEDS ORDERED: NITROGLYCERIN (SL) 0.4 MG TAB SL PRN (16:00)
[2019-07-02] MEDS ORDERED: DEXTROSE 50% 50 ML SYRINGE IV PRN ×2 (16:30)
[2019-07-02] MEDS ORDERED: GLUCAGON 1 MG INJ IM PRN (16:30)
[2019-07-02] MEDS ORDERED: GLUCOSE GEL 15 GRAM TUBE BUCCAL PRN (16:30)
[2019-07-02] MEDS ORDERED: GLUCOSE GEL 15 GRAM TUBE PO PRN ×2 (16:30)
[2019-07-02] MEDS ORDERED: INSULIN ASPART [NOVOLOG] 3 ML PEN SC SCH ×3 (17:00→21:00)
[2019-07-02] MEDS: HYDROCODONE/APAP (5/325) TAB PO PRN ×2 (17:11→21:22)
[2019-07-02] MEDS: ONDANSETRON 4 MG INJ IV PRN (17:49)
[2019-07-02] MEDS: HEPARIN 5,000 UNIT/1 ML VIAL SC SCH ×2 (20:55→21:00)
[2019-07-02] MEDS: HEPARIN 1000 UNITS/ML 10 ML INJ CATHETER SCH (22:16)
[2019-07-02] MEDS ORDERED: VANCOMYCIN IV PER PHARMACY XX SCH (22:30)
[2019-07-03] MEDS ORDERED: VANCOMYCIN 1 GM 250 ML IVPB SCH
[2019-07-03] MEDS: ERTAPENEM SODIUM 0.5 GM in SOD CHLORIDE 0.9% 100 ML IVPB SCH ×2 (00:10→23:16)
[2019-07-03] MEDS: HYDROCODONE/APAP (5/325) TAB PO PRN ×5 (01:23→19:37)
[2019-07-03] MEDS: ONDANSETRON 4 MG INJ IV PRN (01:24)
[2019-07-03] MEDS: ACCU-CHEK XX SCH (01:28)
[2019-07-03 02:23] VITALS: BP 139/60; PULSE 78; RESP 18
[2019-07-03] MEDS: INSULIN ASPART [NOVOLOG] 3 ML PEN SC SCH ×4 (08:00→21:00)
[2019-07-03 08:19] VITALS: BP 136/60; PULSE 76; RESP 20
[2019-07-03] MEDS: HEPARIN 5,000 UNIT/1 ML VIAL SC SCH ×2 (08:50→21:00)
[2019-07-03] MEDS: LINAGLIPTIN 5 MG TABLET PO SCH (08:52)
[2019-07-03] MEDS: NIFEdipine (XL) 30 MG TAB PO SCH (08:53)
[2019-07-03] MEDS ORDERED: SITAGLIPTIN ORAL SCH (09:00)
[2019-07-03] MEDS ORDERED: NIFEdipine (XL) 30 MG TAB PO SCH (09:00)
[2019-07-03] MEDS ORDERED: predniSOLONE (3 MG/ML) CUP PO SCH (14:00)
[2019-07-03] MEDS: MULTIVIT/CA CARB/B CMPLX/FA TAB PO SCH (15:16)
[2019-07-03 15:24] VITALS: BP 110/84; PULSE 64
[2019-07-03] MEDS: SEVELAMER CARBONATE 800 MG TABLET PO SCH ×2 (17:13→22:39)
[2019-07-03] MEDS: morphine 2 MG INJ IV PRN (17:17)
[2019-07-03 20:15] VITALS: BP 135/76; PULSE 100; RESP 18
[2019-07-03] MEDS: TACROLIMUS 1 MG CAP PO SCH (22:34)
[2019-07-04] MEDS: HYDROCODONE/APAP (5/325) TAB PO PRN ×5 (01:59→20:23)
[2019-07-04] MEDS: ACCU-CHEK XX SCH (02:00)
[2019-07-04 02:25] VITALS: BP 130/58; PULSE 98; RESP 18
[2019-07-04] MEDS: INSULIN ASPART [NOVOLOG] 3 ML PEN SC SCH ×4 (08:00→20:51)
[2019-07-04 08:25] VITALS: BP 128/70; PULSE 103; RESP 16
[2019-07-04] MEDS: TACROLIMUS 1 MG CAP PO SCH ×2 (08:28→20:24)
[2019-07-04] MEDS: LINAGLIPTIN 5 MG TABLET PO SCH (08:28)
[2019-07-04] MEDS: MULTIVIT/CA CARB/B CMPLX/FA TAB PO SCH (08:28)
[2019-07-04] MEDS: NIFEdipine (XL) 30 MG TAB PO SCH (08:28)
[2019-07-04] MEDS: HEPARIN 5,000 UNIT/1 ML VIAL SC SCH ×2 (08:29→20:25)
[2019-07-04] MEDS: SEVELAMER CARBONATE 800 MG TABLET PO SCH ×3 (08:29→17:35)
[2019-07-04 14:00] VITALS: BP 109/74; PULSE 102; RESP 18
[2019-07-04] MEDS: ERGOCALCIFEROL 50,000 UNIT CAP PO SCH (14:40)
[2019-07-04 20:00] VITALS: BP 133/59; PULSE 112; RESP 18
[2019-07-04] MEDS: ERTAPENEM SODIUM 0.5 GM in SOD CHLORIDE 0.9% 100 ML IVPB SCH (23:02)
[2019-07-05] VITALS (17 sets, daily range): BP systolic 117–145; BP diastolic 34–80; PULSE 62–89; RESP 16–18
[2019-07-05] MEDS: ACCU-CHEK XX SCH (02:00)
[2019-07-05] MEDS: HYDROCODONE/APAP (5/325) TAB PO PRN ×5 (04:11→20:59)
[2019-07-05] MEDS: INSULIN ASPART [NOVOLOG] 3 ML PEN SC SCH ×4 (07:45→20:46)
[2019-07-05] MEDS: HEPARIN 5,000 UNIT/1 ML VIAL SC SCH ×2 (07:46→20:51)
[2019-07-05] MEDS: MULTIVIT/CA CARB/B CMPLX/FA TAB PO SCH (08:06)
[2019-07-05] MEDS: LINAGLIPTIN 5 MG TABLET PO SCH (08:06)
[2019-07-05] MEDS: predniSONE 5 MG TAB PO SCH (08:06)
[2019-07-05] MEDS: TACROLIMUS 1 MG CAP PO SCH ×2 (08:06→20:48)
[2019-07-05] MEDS: SEVELAMER CARBONATE 800 MG TABLET PO SCH ×3 (08:06→17:04)
[2019-07-05] MEDS: NIFEdipine (XL) 30 MG TAB PO SCH (09:00)
[2019-07-05] MEDS ORDERED: VANCOMYCIN 750 MG (PMX) 250 ML IVPB SCH ×2 (10:00→16:00)
[2019-07-05] MEDS: HEPARIN 1000 UNITS/ML 10 ML INJ CATHETER SCH (12:48)
[2019-07-05] MEDS: EPOETIN ALFA-EPBX (ESRD) 4,000 UNIT/ML VIAL IV SCH (17:00)
[2019-07-05] MEDS ORDERED: EPOETIN ALFA-EPBX (ESRD) 4,000 UNIT/ML VIAL SC SCH (17:00)
[2019-07-05] MEDS: LORAZEPAM 2 MG INJ IV PRN (18:40)
[2019-07-06] MEDS: ERTAPENEM SODIUM 0.5 GM in SOD CHLORIDE 0.9% 100 ML IVPB SCH ×2 (00:08→23:00)
[2019-07-06] MEDS: HYDROCODONE/APAP (5/325) TAB PO PRN ×5 (00:56→23:03)
[2019-07-06] MEDS: ACCU-CHEK XX SCH (02:00)
[2019-07-06 02:45] VITALS: BP 147/60; PULSE 71; RESP 16
[2019-07-06] MEDS: SEVELAMER CARBONATE 800 MG TABLET PO SCH ×3 (07:35→17:34)
[2019-07-06 08:00] VITALS: BP 126/53; PULSE 67; RESP 16
[2019-07-06] MEDS: INSULIN ASPART [NOVOLOG] 3 ML PEN SC SCH ×4 (08:00→20:29)
[2019-07-06] MEDS: HEPARIN 5,000 UNIT/1 ML VIAL SC SCH ×2 (09:00→20:37)
[2019-07-06] MEDS: LINAGLIPTIN 5 MG TABLET PO SCH (09:18)
[2019-07-06] MEDS: MULTIVIT/CA CARB/B CMPLX/FA TAB PO SCH (09:18)
[2019-07-06] MEDS: TACROLIMUS 1 MG CAP PO SCH ×2 (09:18→20:34)
[2019-07-06] MEDS: predniSONE 5 MG TAB PO SCH (09:18)
[2019-07-06] MEDS: NIFEdipine (XL) 30 MG TAB PO SCH (09:19)
[2019-07-06] MEDS ORDERED: LORAZEPAM 2 MG INJ IV ONE (12:00)
[2019-07-06 14:00] VITALS: BP 118/47; PULSE 59; RESP 16
[2019-07-06 20:33] VITALS: BP 107/44; PULSE 75; RESP 18
[2019-07-07] VITALS (18 sets, daily range): BP systolic 105–155; BP diastolic 34–59; PULSE 60–84; RESP 16–18
[2019-07-07] MEDS: ACCU-CHEK XX SCH (01:35)
[2019-07-07] MEDS: HYDROCODONE/APAP (5/325) TAB PO PRN ×5 (02:57→20:50)
[2019-07-07] MEDS: SEVELAMER CARBONATE 800 MG TABLET PO SCH ×4 (07:35→17:43)
[2019-07-07] MEDS: INSULIN ASPART [NOVOLOG] 3 ML PEN SC SCH ×4 (08:00→20:49)
[2019-07-07] MEDS: MULTIVIT/CA CARB/B CMPLX/FA TAB PO SCH (08:26)
[2019-07-07] MEDS: TACROLIMUS 1 MG CAP PO SCH ×2 (08:26→20:50)
[2019-07-07] MEDS: LINAGLIPTIN 5 MG TABLET PO SCH (08:27)
[2019-07-07] MEDS: predniSONE 5 MG TAB PO SCH (08:27)
[2019-07-07] MEDS: HEPARIN 5,000 UNIT/1 ML VIAL SC SCH ×2 (08:28→20:49)
[2019-07-07] MEDS: NIFEdipine (XL) 30 MG TAB PO SCH (08:28)
[2019-07-07] MEDS: LORAZEPAM 2 MG INJ IV PRN ×2 (12:02→18:45)
[2019-07-07] MEDS: EPOETIN ALFA-EPBX (ESRD) 4,000 UNIT/ML VIAL IV SCH (12:09)
[2019-07-07] MEDS: HEPARIN 1000 UNITS/ML 10 ML INJ CATHETER SCH (15:52)
[2019-07-07] MEDS: ERTAPENEM SODIUM 0.5 GM in SOD CHLORIDE 0.9% 100 ML IVPB SCH (23:05)
[2019-07-07] MEDS: morphine 2 MG INJ IV PRN (23:11)
[2019-07-08] MEDS: HYDROCODONE/APAP (5/325) TAB PO PRN ×5 (01:30→22:15)
[2019-07-08] MEDS: ACCU-CHEK XX SCH (01:45)
[2019-07-08 02:00] VITALS: BP 134/60; PULSE 71; RESP 16
[2019-07-08] MEDS: LORAZEPAM 2 MG INJ IV PRN ×3 (07:25→21:11)
[2019-07-08 07:51] VITALS: BP 133/63; PULSE 71; RESP 16
[2019-07-08] MEDS: INSULIN ASPART [NOVOLOG] 3 ML PEN SC SCH ×4 (08:00→20:25)
[2019-07-08] MEDS: HEPARIN 5,000 UNIT/1 ML VIAL SC SCH ×2 (08:56→20:22)
[2019-07-08] MEDS: MULTIVIT/CA CARB/B CMPLX/FA TAB PO SCH (08:58)
[2019-07-08] MEDS: LINAGLIPTIN 5 MG TABLET PO SCH (08:58)
[2019-07-08] MEDS: TACROLIMUS 1 MG CAP PO SCH ×2 (08:58→20:26)
[2019-07-08] MEDS: SEVELAMER CARBONATE 800 MG TABLET PO SCH ×3 (08:58→17:35)
[2019-07-08] MEDS: predniSONE 5 MG TAB PO SCH (08:58)
[2019-07-08] MEDS: NIFEdipine (XL) 30 MG TAB PO SCH (09:00)
[2019-07-08] MEDS ORDERED: VANCOMYCIN 750 MG (PMX) 250 ML IVPB SCH (11:30)
[2019-07-08 14:09] VITALS: BP 134/60; PULSE 90; RESP 16
[2019-07-08] MEDS: morphine 2 MG INJ IV PRN (18:46)
[2019-07-08 19:33] VITALS: BP 134/63; PULSE 86; RESP 16
[2019-07-08] MEDS: ERTAPENEM SODIUM 0.5 GM in SOD CHLORIDE 0.9% 100 ML IVPB SCH (23:32)
[2019-07-09] VITALS (17 sets, daily range): BP systolic 126–175; BP diastolic 54–98; PULSE 67–81; RESP 16–19
[2019-07-09] MEDS: ACCU-CHEK XX SCH (02:00)
[2019-07-09] MEDS: HYDROCODONE/APAP (5/325) TAB PO PRN ×4 (05:36→18:38)
[2019-07-09] MEDS: INSULIN ASPART [NOVOLOG] 3 ML PEN SC SCH ×4 (08:00→21:00)
[2019-07-09] MEDS: morphine 2 MG INJ IV PRN ×2 (08:47→13:31)
[2019-07-09] MEDS: LINAGLIPTIN 5 MG TABLET PO SCH (08:50)
[2019-07-09] MEDS: TACROLIMUS 1 MG CAP PO SCH ×2 (08:50→21:15)
[2019-07-09] MEDS: predniSONE 5 MG TAB PO SCH (08:50)
[2019-07-09] MEDS: MULTIVIT/CA CARB/B CMPLX/FA TAB PO SCH (08:50)
[2019-07-09] MEDS: SEVELAMER CARBONATE 800 MG TABLET PO SCH ×3 (08:50→17:52)
[2019-07-09] MEDS: NIFEdipine (XL) 30 MG TAB PO SCH (08:51)
[2019-07-09] MEDS: HEPARIN 5,000 UNIT/1 ML VIAL SC SCH ×2 (08:52→21:00)
[2019-07-09] MEDS: LORAZEPAM 2 MG INJ IV PRN ×2 (12:14→18:12)
[2019-07-09] MEDS: HEPARIN 1000 UNITS/ML 10 ML INJ CATHETER SCH (14:34)
[2019-07-09] MEDS: EPOETIN ALFA-EPBX (ESRD) 4,000 UNIT/ML VIAL IV SCH (17:00)
[2019-07-09] MEDS: ERTAPENEM SODIUM 0.5 GM in SOD CHLORIDE 0.9% 100 ML IVPB SCH (23:06)
[2019-07-10] MEDS: ACCU-CHEK XX SCH (01:14)
[2019-07-10] MEDS: HYDROCODONE/APAP (5/325) TAB PO PRN ×3 (01:47→17:27)
[2019-07-10 02:00] VITALS: BP 131/58; PULSE 74; RESP 17
[2019-07-10 07:33] VITALS: BP 133/64; PULSE 89; RESP 16
[2019-07-10] MEDS: INSULIN ASPART [NOVOLOG] 3 ML PEN SC SCH ×4 (08:00→20:28)
[2019-07-10] MEDS: HEPARIN 5,000 UNIT/1 ML VIAL SC SCH ×3 (09:00→20:38)
[2019-07-10] MEDS: LINAGLIPTIN 5 MG TABLET PO SCH (09:03)
[2019-07-10] MEDS: predniSONE 5 MG TAB PO SCH (09:03)
[2019-07-10] MEDS: TACROLIMUS 1 MG CAP PO SCH ×2 (09:03→20:28)
[2019-07-10] MEDS: NIFEdipine (XL) 30 MG TAB PO SCH (09:04)
[2019-07-10] MEDS: MULTIVIT/CA CARB/B CMPLX/FA TAB PO SCH (09:04)
[2019-07-10] MEDS: LORAZEPAM 2 MG INJ IV PRN ×2 (09:05→20:45)
[2019-07-10] MEDS: SEVELAMER CARBONATE 800 MG TABLET PO SCH ×3 (09:07→17:27)
[2019-07-10 14:34] VITALS: BP 130/68; PULSE 86; RESP 16
[2019-07-10 20:20] VITALS: PULSE 76; RESP 20
[2019-07-10 20:30] VITALS: BP 120/50; PULSE 77
[2019-07-10] MEDS: ERTAPENEM SODIUM 0.5 GM in SOD CHLORIDE 0.9% 100 ML IVPB SCH (23:00)
[2019-07-11] MEDS: ACCU-CHEK XX SCH (01:48)
[2019-07-11 02:26] VITALS: BP 131/68; PULSE 80; RESP 19
[2019-07-11] MEDS: HYDROCODONE/APAP (5/325) TAB PO PRN ×4 (04:55→23:18)
[2019-07-11] MEDS: INSULIN ASPART [NOVOLOG] 3 ML PEN SC SCH ×4 (07:55→21:00)
[2019-07-11 08:00] VITALS: BP_SYST 82; BP_DIAS 34; BP_DIAS 54; PULSE 75; RESP 16
[2019-07-11] MEDS: HEPARIN 5,000 UNIT/1 ML VIAL SC SCH ×2 (09:00→21:00)
[2019-07-11] MEDS: SEVELAMER CARBONATE 800 MG TABLET PO SCH ×3 (09:07→17:27)
[2019-07-11] MEDS: MULTIVIT/CA CARB/B CMPLX/FA TAB PO SCH (09:07)
[2019-07-11] MEDS: TACROLIMUS 1 MG CAP PO SCH ×2 (09:07→21:42)
[2019-07-11] MEDS: LINAGLIPTIN 5 MG TABLET PO SCH (09:07)
[2019-07-11] MEDS: predniSONE 5 MG TAB PO SCH (09:08)
[2019-07-11] MEDS: NIFEdipine (XL) 30 MG TAB PO SCH (09:08)
[2019-07-11] MEDS: ERGOCALCIFEROL 50,000 UNIT CAP PO SCH (09:25)
[2019-07-11] MEDS: VANCOMYCIN 750 MG (PMX) 250 ML IVPB SCH (12:56)
[2019-07-11 14:30] VITALS: BP 111/55; PULSE 63; RESP 16
[2019-07-11 20:00] VITALS: BP 123/48; PULSE 68; RESP 18
[2019-07-11] MEDS: LORAZEPAM 2 MG INJ IV PRN (21:49)
[2019-07-11] MEDS: ERTAPENEM SODIUM 0.5 GM in SOD CHLORIDE 0.9% 100 ML IVPB SCH (23:15)
[2019-07-12] VITALS (18 sets, daily range): BP systolic 96–157; BP diastolic 52–84; PULSE 58–85; RESP 16–20
[2019-07-12] MEDS: ACCU-CHEK XX SCH (01:53)
[2019-07-12] MEDS: HYDROCODONE/APAP (5/325) TAB PO PRN ×3 (06:48→23:50)
[2019-07-12] MEDS: INSULIN ASPART [NOVOLOG] 3 ML PEN SC SCH ×4 (07:59→21:00)
[2019-07-12] MEDS: TACROLIMUS 1 MG CAP PO SCH ×2 (08:46→21:43)
[2019-07-12] MEDS: SEVELAMER CARBONATE 800 MG TABLET PO SCH ×3 (08:46→17:53)
[2019-07-12] MEDS: LINAGLIPTIN 5 MG TABLET PO SCH (08:47)
[2019-07-12] MEDS: predniSONE 5 MG TAB PO SCH (08:47)
[2019-07-12] MEDS: MULTIVIT/CA CARB/B CMPLX/FA TAB PO SCH (08:47)
[2019-07-12] MEDS: HEPARIN 5,000 UNIT/1 ML VIAL SC SCH ×2 (09:00→21:00)
[2019-07-12] MEDS ORDERED: HEPARIN 1000 UNITS/ML 10 ML INJ CATHETER SCH (10:00)
[2019-07-12] MEDS: NIFEdipine (XL) 30 MG TAB PO SCH (11:15)
[2019-07-12] MEDS: LORAZEPAM 2 MG INJ IV PRN ×2 (11:16→21:23)
[2019-07-12] MEDS: EPOETIN ALFA-EPBX (ESRD) 4,000 UNIT/ML VIAL IV SCH (17:56)
[2019-07-12] MEDS ORDERED: HYDROGEN PEROXIDE 118 ML TOP ONE (23:30)
[2019-07-12] MEDS: ERTAPENEM SODIUM 0.5 GM in SOD CHLORIDE 0.9% 100 ML IVPB SCH (23:45)
[2019-07-13] MEDS: ACCU-CHEK XX SCH (01:20)
[2019-07-13 02:34] VITALS: BP 149/75; PULSE 62; RESP 16
[2019-07-13] MEDS: INSULIN ASPART [NOVOLOG] 3 ML PEN SC SCH ×4 (08:00→20:18)
[2019-07-13 08:13] VITALS: BP 126/59; PULSE 71; RESP 16
[2019-07-13] MEDS: SEVELAMER CARBONATE 800 MG TABLET PO SCH ×3 (08:16→17:27)
[2019-07-13] MEDS: HYDROCODONE/APAP (5/325) TAB PO PRN ×3 (08:17→18:17)
[2019-07-13] MEDS: MULTIVIT/CA CARB/B CMPLX/FA TAB PO SCH (08:17)
[2019-07-13] MEDS: HEPARIN 5,000 UNIT/1 ML VIAL SC SCH (08:18)
[2019-07-13] MEDS: LINAGLIPTIN 5 MG TABLET PO SCH (08:18)
[2019-07-13] MEDS: TACROLIMUS 1 MG CAP PO SCH ×2 (08:19→20:18)
[2019-07-13] MEDS: NIFEdipine (XL) 30 MG TAB PO SCH (08:19)
[2019-07-13] MEDS: predniSONE 5 MG TAB PO SCH (08:19)
[2019-07-13] MEDS: LORAZEPAM 2 MG INJ IV PRN ×3 (10:25→22:48)
[2019-07-13 14:19] VITALS: BP 101/60; PULSE 73; RESP 18
[2019-07-13 19:57] VITALS: BP 150/78; PULSE 76; RESP 20
[2019-07-13] MEDS: ERTAPENEM SODIUM 0.5 GM in SOD CHLORIDE 0.9% 100 ML IVPB SCH (20:19)
[2019-07-14] VITALS (18 sets, daily range): BP systolic 119–169; BP diastolic 45–100; PULSE 60–84; RESP 16–19
[2019-07-14] MEDS: ACCU-CHEK XX SCH (00:32)
[2019-07-14] MEDS: HYDROCODONE/APAP (5/325) TAB PO PRN ×5 (00:32→22:19)
[2019-07-14] MEDS: DEXTROSE 5%-0.45% NACL 1,000 ML IV SCH (02:29)
[2019-07-14] MEDS: INSULIN ASPART [NOVOLOG] 3 ML PEN SC SCH ×5 (05:21→22:18)
[2019-07-14] MEDS: SEVELAMER CARBONATE 800 MG TABLET PO SCH ×3 (07:35→17:26)
[2019-07-14] MEDS: LORAZEPAM 2 MG INJ IV PRN ×3 (07:57→23:28)
[2019-07-14] MEDS: NIFEdipine (XL) 30 MG TAB PO SCH (08:46)
[2019-07-14] MEDS: LINAGLIPTIN 5 MG TABLET PO SCH (09:00)
[2019-07-14] MEDS: predniSONE 5 MG TAB PO SCH (09:14)
[2019-07-14] MEDS: TACROLIMUS 1 MG CAP PO SCH ×2 (09:14→22:18)
[2019-07-14] MEDS: MULTIVIT/CA CARB/B CMPLX/FA TAB PO SCH (09:14)
[2019-07-14] MEDS: HEPARIN 1000 UNITS/ML 10 ML INJ CATHETER SCH (13:30)
[2019-07-14] MEDS: VANCOMYCIN 750 MG (PMX) 250 ML IVPB SCH (13:35)
[2019-07-14] MEDS: EPOETIN ALFA-EPBX (ESRD) 4,000 UNIT/ML VIAL IV SCH ×2 (17:00→17:27)
[2019-07-14] MEDS: ERTAPENEM SODIUM 0.5 GM in SOD CHLORIDE 0.9% 100 ML IVPB SCH (22:18)
[2019-07-14] MEDS: ONDANSETRON 4 MG INJ IV PRN (23:24)
[2019-07-15] VITALS (20 sets, daily range): BP systolic 105–188; BP diastolic 57–79; PULSE 68–92; RESP 13–22
[2019-07-15] MEDS: DEXTROSE 5%-0.45% NACL 1,000 ML IV SCH (00:04)
[2019-07-15] MEDS: HYDROCODONE/APAP (5/325) TAB PO PRN ×3 (04:12→21:19)
[2019-07-15] MEDS: LORAZEPAM 2 MG INJ IV PRN ×2 (05:59→13:18)
[2019-07-15] MEDS: INSULIN ASPART [NOVOLOG] 3 ML PEN SC SCH ×4 (06:00→21:21)
[2019-07-15] MEDS: SEVELAMER CARBONATE 800 MG TABLET PO SCH ×3 (07:35→16:51)
[2019-07-15] MEDS: MULTIVIT/CA CARB/B CMPLX/FA TAB PO SCH (08:13)
[2019-07-15] MEDS: TACROLIMUS 1 MG CAP PO SCH ×2 (08:13→21:19)
[2019-07-15] MEDS: predniSONE 5 MG TAB PO SCH (08:13)
[2019-07-15] MEDS: NIFEdipine (XL) 30 MG TAB PO SCH (08:15)
[2019-07-15] MEDS: ONDANSETRON 4 MG INJ IV PRN (08:43)
[2019-07-15] MEDS: LINAGLIPTIN 5 MG TABLET PO SCH (08:48)
[2019-07-15] MEDS ORDERED: FENTAnyl 50 MCG/ML VIAL IV PRN ×3 (16:00)
[2019-07-15] MEDS ORDERED: HYDROmorphONE 1 MG/5 ML IV SYRINGE IV PRN ×3 (16:00)
[2019-07-15] MEDS ORDERED: IPRATROPIUM (NEB) 0.5 MG/2.5 ML AMP HHN PRN (16:00)
[2019-07-15] MEDS ORDERED: EPHEDrine 25 MG/5 ML SYG IV PRN (16:00)
[2019-07-15] MEDS ORDERED: ONDANSETRON 4 MG INJ IV PRN (16:00)
[2019-07-15] MEDS ORDERED: DIPHENHYDRAMINE 50 MG INJ IV PRN (16:00)
[2019-07-15] MEDS ORDERED: PHENYLephrine (100 MCG/ML) 10ML SYG ONE (16:00)
[2019-07-15] MEDS ORDERED: LABETALOL HCL 20MG INJ IV PRN (16:00)
[2019-07-15] MEDS ORDERED: hydrALAzine 20 MG INJ IV PRN (16:00)
[2019-07-15] MEDS ORDERED: ALBUTEROL 0.083% (NEB) 2.5 MG/3 ML AMP HHN PRN (16:00)
[2019-07-15] MEDS ORDERED: OXYCODONE/ACETAMINOPHEN (5/325) TAB PO PRN ×2 (16:00)
[2019-07-15] MEDS ORDERED: MEPERIDINE 25 MG INJ IV PRN (16:00)
[2019-07-15] MEDS ORDERED: MIDAZOLAM 1 MG/ML 2 ML INJ ONE (16:05)
[2019-07-15] MEDS ORDERED: ROPIVACAINE 0.5 % 30 ML VIAL ONE (16:22)
[2019-07-15] MEDS ORDERED: LIDOCAINE 2% (SDV) 5 ML INJ ONE (16:23)
[2019-07-15] MEDS ORDERED: EPHEDrine 25 MG/5 ML SYG ONE (17:26)
[2019-07-15] MEDS ORDERED: HYDROGEN PEROXIDE 118 ML ONE (17:45)
[2019-07-15] MEDS ORDERED: FENTAnyl 50 MCG/ML VIAL ONE (18:13)
[2019-07-15] MEDS ORDERED: morphine 2 MG INJ IV PRN (19:00)
[2019-07-15] MEDS ORDERED: HYDROCODONE/APAP (5/325) TAB PO PRN (19:00)
[2019-07-15] MEDS: SOD CHLORIDE 0.9% 1,000 ML IV SCH (22:32)
[2019-07-15] MEDS: ERTAPENEM SODIUM 0.5 GM in SOD CHLORIDE 0.9% 100 ML IVPB SCH (22:32)
[2019-07-15] MEDS: morphine 2 MG INJ IV PRN (22:37)
[2019-07-15] MEDS: HYDROmorphONE 0.5 MG/0.5 ML SYG IV PRN (23:58)
[2019-07-16] VITALS (64 sets, daily range): BP systolic 68–183; BP diastolic 16–134; PULSE 59–124; RESP 12–34
[2019-07-16] MEDS: LORAZEPAM 2 MG INJ IV PRN ×4 (01:18→22:34)
[2019-07-16] MEDS: HYDROmorphONE 0.5 MG/0.5 ML SYG IV PRN ×3 (04:23→20:15)
[2019-07-16] MEDS: SOD CHLORIDE 0.9% 1,000 ML IV SCH (04:43)
[2019-07-16] MEDS ORDERED: FUROSEMIDE 40 MG INJ ONE (07:02)
[2019-07-16] MEDS: INSULIN ASPART [NOVOLOG] 3 ML PEN SC SCH ×4 (08:00→21:00)
[2019-07-16] MEDS: ONDANSETRON 4 MG INJ IV PRN ×2 (08:30→14:44)
[2019-07-16] MEDS ORDERED: ADENOSINE 0 ML ONE (08:43)
[2019-07-16] MEDS: SEVELAMER CARBONATE 800 MG TABLET PO SCH ×4 (09:54→17:35)
[2019-07-16] MEDS ORDERED: ALBUMIN HUMAN 25% 100 ML IV STA (10:56)
[2019-07-16] MEDS ORDERED: ALBUMIN HUMAN 25% 100 ML ONE (10:59)
[2019-07-16] MEDS: NIFEdipine (XL) 30 MG TAB PO SCH (11:03)
[2019-07-16] MEDS: TACROLIMUS 1 MG CAP PO SCH ×2 (11:39→21:00)
[2019-07-16] MEDS: predniSONE 5 MG TAB PO SCH ×2 (11:39→16:50)
[2019-07-16] MEDS: MULTIVIT/CA CARB/B CMPLX/FA TAB PO SCH (11:40)
[2019-07-16] MEDS: LINAGLIPTIN 5 MG TABLET PO SCH (11:40)
[2019-07-16] MEDS ORDERED: ALBUMIN HUMAN 25% 100 ML IV PRN (12:00)
[2019-07-16] MEDS: HEPARIN 1000 UNITS/ML 10 ML INJ CATHETER SCH (13:17)
[2019-07-16] MEDS: PIPER-TAZO 2.25 GM (PMX) 50 ML IVPB SCH ×2 (16:08→22:39)
[2019-07-16] MEDS ORDERED: niCARdipine 25 MG in SOD CHLORIDE 0.9% 240 ML IV SCH (17:00)
[2019-07-16] MEDS ORDERED: METOPROLOL 5 MG INJ IV PRN (17:00)
[2019-07-16] MEDS ORDERED: AMIODARONE 150MG/D5W BOLUS 100 ML IV ONE (17:00)
[2019-07-16] MEDS ORDERED: DIGOXIN 500 MCG INJ IV ONE (17:00)
[2019-07-16] MEDS ORDERED: AMIODARONE 900 MG in DEXTROSE 5% 482 ML IV SCH (17:00)
[2019-07-16] MEDS ORDERED: HYDROCODONE/APAP (10/325) TAB PO PRN (20:00)
[2019-07-16] MEDS: ERTAPENEM SODIUM 0.5 GM in SOD CHLORIDE 0.9% 100 ML IVPB SCH (22:07)
[2019-07-17] VITALS (44 sets, daily range): BP systolic 91–241; BP diastolic 36–116; PULSE 68–85; RESP 10–24
[2019-07-17] MEDS: PIPER-TAZO 2.25 GM (PMX) 50 ML IVPB SCH ×3 (06:36→22:53)
[2019-07-17] MEDS ORDERED: glipiZIDE 10 MG TAB PO SCH (07:05)
[2019-07-17] MEDS: SEVELAMER CARBONATE 800 MG TABLET PO SCH ×3 (07:35→19:15)
[2019-07-17] MEDS: INSULIN ASPART [NOVOLOG] 3 ML PEN SC SCH ×4 (07:35→20:39)
[2019-07-17] MEDS: LINAGLIPTIN 5 MG TABLET PO SCH (08:28)
[2019-07-17] MEDS: MULTIVIT/CA CARB/B CMPLX/FA TAB PO SCH (08:28)
[2019-07-17] MEDS ORDERED: ACETAMINOPHEN 650 MG SUPP PR PRN (08:30)
[2019-07-17] MEDS: NIFEdipine (XL) 30 MG TAB PO SCH (09:00)
[2019-07-17] MEDS: VANCOMYCIN 750 MG (PMX) 250 ML IVPB SCH (11:13)
[2019-07-17] MEDS: LORAZEPAM 2 MG INJ IV PRN ×2 (12:58→21:34)
[2019-07-17] MEDS: HYDROmorphONE 0.5 MG/0.5 ML SYG IV PRN (12:59)
[2019-07-17] MEDS: NA POLYST SULFON 15 GM/60 ML BTL PO ONE ×2 (13:00→14:20)
[2019-07-17] MEDS: TACROLIMUS 1 MG CAP PO SCH ×2 (14:19→21:34)
[2019-07-17] MEDS: predniSONE 5 MG TAB PO SCH (14:20)
[2019-07-17] MEDS: HYDROCODONE/APAP (5/325) TAB PO PRN (20:28)
[2019-07-17] MEDS: ERTAPENEM SODIUM 0.5 GM in SOD CHLORIDE 0.9% 100 ML IVPB SCH (21:34)
[2019-07-18] MEDS: HYDROmorphONE 0.5 MG/0.5 ML SYG IV PRN ×5 (02:47→22:20)
[2019-07-18 04:00] VITALS: BP 135/56; PULSE 64; RESP 19
[2019-07-18] MEDS: PIPER-TAZO 2.25 GM (PMX) 50 ML IVPB SCH ×3 (06:32→22:20)
[2019-07-18 07:35] VITALS: BP 120/69; PULSE 64; RESP 18
[2019-07-18] MEDS: INSULIN ASPART [NOVOLOG] 3 ML PEN SC SCH ×4 (08:58→21:00)
[2019-07-18] MEDS: TACROLIMUS 1 MG CAP PO SCH ×2 (09:25→21:01)
[2019-07-18] MEDS: predniSONE 5 MG TAB PO SCH (09:25)
[2019-07-18] MEDS: LINAGLIPTIN 5 MG TABLET PO SCH (09:25)
[2019-07-18] MEDS: MULTIVIT/CA CARB/B CMPLX/FA TAB PO SCH (09:25)
[2019-07-18] MEDS: SEVELAMER CARBONATE 800 MG TABLET PO SCH ×3 (09:25→18:03)
[2019-07-18] MEDS: NIFEdipine (XL) 30 MG TAB PO SCH (09:26)
[2019-07-18] MEDS: ERGOCALCIFEROL 50,000 UNIT CAP PO SCH (09:35)
[2019-07-18] MEDS: LORAZEPAM 2 MG INJ IV PRN ×2 (09:36→21:01)
[2019-07-18 11:35] VITALS: BP 122/72; PULSE 71; RESP 18
[2019-07-18 16:16] VITALS: BP 133/77; PULSE 70; RESP 17
[2019-07-18 20:00] VITALS: BP 135/56; PULSE 69; RESP 19
[2019-07-19] VITALS (20 sets, daily range): BP systolic 109–171; BP diastolic 53–93; PULSE 65–82; RESP 18–20
[2019-07-19] MEDS: HYDROmorphONE 0.5 MG/0.5 ML SYG IV PRN ×4 (05:51→21:58)
[2019-07-19] MEDS: PIPER-TAZO 2.25 GM (PMX) 50 ML IVPB SCH (05:52)
[2019-07-19] MEDS: LORAZEPAM 2 MG INJ IV PRN (06:53)
[2019-07-19] MEDS: INSULIN ASPART [NOVOLOG] 3 ML PEN SC SCH ×4 (08:06→21:00)
[2019-07-19] MEDS: TACROLIMUS 1 MG CAP PO SCH ×2 (08:19→21:54)
[2019-07-19] MEDS: predniSONE 5 MG TAB PO SCH (08:19)
[2019-07-19] MEDS: LINAGLIPTIN 5 MG TABLET PO SCH (08:19)
[2019-07-19] MEDS: MULTIVIT/CA CARB/B CMPLX/FA TAB PO SCH (08:19)
[2019-07-19] MEDS: SEVELAMER CARBONATE 800 MG TABLET PO SCH ×4 (08:19→21:54)
[2019-07-19] MEDS: NIFEdipine (XL) 30 MG TAB PO SCH (08:21)
[2019-07-19] MEDS: CIPROFLOXACIN 500 MG TAB PO SCH (12:31)
[2019-07-19] MEDS: CEFAZOLIN 1 GM/50 ML (PMX) 50 ML IVPB SCH (12:31)
[2019-07-19] MEDS: EPOETIN ALFA-EPBX (ESRD) 3,000 UNIT/ML VIAL IV SCH (17:00)
[2019-07-19] MEDS: HEPARIN 1000 UNITS/ML 10 ML INJ CATHETER SCH (17:52)
[2019-07-20] MEDS: LORAZEPAM 2 MG INJ IV PRN ×2 (01:16→17:37)
[2019-07-20] MEDS: CIPROFLOXACIN 500 MG TAB PO SCH (06:29)
[2019-07-20 07:15] VITALS: BP 141/53; PULSE 77; RESP 17
[2019-07-20] MEDS: ONDANSETRON 4 MG INJ IV PRN (07:39)
[2019-07-20] MEDS: HYDROmorphONE 0.5 MG/0.5 ML SYG IV PRN ×3 (08:37→20:41)
[2019-07-20] MEDS: LINAGLIPTIN 5 MG TABLET PO SCH (08:41)
[2019-07-20] MEDS: MULTIVIT/CA CARB/B CMPLX/FA TAB PO SCH (08:41)
[2019-07-20] MEDS: NIFEdipine (XL) 30 MG TAB PO SCH (08:42)
[2019-07-20] MEDS: TACROLIMUS 1 MG CAP PO SCH ×2 (08:42→20:40)
[2019-07-20] MEDS: BENAZEPRIL 5 MG TAB PO SCH (08:43)
[2019-07-20] MEDS: CEFAZOLIN 1 GM/50 ML (PMX) 50 ML IVPB SCH (08:43)
[2019-07-20] MEDS: predniSONE 5 MG TAB PO SCH (08:43)
[2019-07-20] MEDS: INSULIN ASPART [NOVOLOG] 3 ML PEN SC SCH ×4 (08:58→20:50)
[2019-07-20] MEDS: SEVELAMER CARBONATE 800 MG TABLET PO SCH ×2 (11:16→17:24)
[2019-07-20 11:34] VITALS: BP 129/53; PULSE 69; RESP 18
[2019-07-20] MEDS ORDERED: REGADENOSON 0.4 MG/5 ML SYG ONE (13:33)
[2019-07-20 15:46] VITALS: BP 121/50; PULSE 72; RESP 18
[2019-07-20 20:19] VITALS: BP 114/57; PULSE 66; RESP 18
[2019-07-21] VITALS (19 sets, daily range): BP systolic 106–163; BP diastolic 41–103; PULSE 51–78; RESP 18
[2019-07-21] MEDS: INSULIN ASPART [NOVOLOG] 3 ML PEN SC SCH ×6 (01:00→21:00)
[2019-07-21] MEDS: ACCU-CHEK XX SCH (01:15)
[2019-07-21] MEDS: HYDROmorphONE 0.5 MG/0.5 ML SYG IV PRN ×4 (04:13→21:11)
[2019-07-21] MEDS: CIPROFLOXACIN 500 MG TAB PO SCH (05:24)
[2019-07-21] MEDS: LORAZEPAM 2 MG INJ IV PRN ×3 (07:32→22:38)
[2019-07-21] MEDS: predniSONE 5 MG TAB PO SCH (08:29)
[2019-07-21] MEDS: CEFAZOLIN 1 GM/50 ML (PMX) 50 ML IVPB SCH (08:30)
[2019-07-21] MEDS: TACROLIMUS 1 MG CAP PO SCH ×2 (08:30→21:09)
[2019-07-21] MEDS: SEVELAMER CARBONATE 800 MG TABLET PO SCH ×3 (08:30→17:10)
[2019-07-21] MEDS: LINAGLIPTIN 5 MG TABLET PO SCH (08:30)
[2019-07-21] MEDS: NIFEdipine (XL) 30 MG TAB PO SCH (08:31)
[2019-07-21] MEDS: BENAZEPRIL 5 MG TAB PO SCH (08:31)
[2019-07-21] MEDS: MULTIVIT/CA CARB/B CMPLX/FA TAB PO SCH (08:34)
[2019-07-21] MEDS: HEPARIN 1000 UNITS/ML 10 ML INJ CATHETER SCH (13:51)
[2019-07-21] MEDS: EPOETIN ALFA-EPBX (ESRD) 3,000 UNIT/ML VIAL IV SCH (16:00)
[2019-07-22] VITALS (7 sets, daily range): BP systolic 106–124; BP diastolic 44–75; PULSE 59–78; RESP 16–18
[2019-07-22] MEDS: ACCU-CHEK XX SCH (01:12)
[2019-07-22] MEDS: CIPROFLOXACIN 500 MG TAB PO SCH (05:48)
[2019-07-22] MEDS: HYDROmorphONE 0.5 MG/0.5 ML SYG IV PRN ×4 (05:53→21:22)
[2019-07-22] MEDS: SEVELAMER CARBONATE 800 MG TABLET PO SCH ×3 (07:55→17:48)
[2019-07-22] MEDS: INSULIN ASPART [NOVOLOG] 3 ML PEN SC SCH ×4 (07:55→21:00)
[2019-07-22] MEDS: predniSONE 5 MG TAB PO SCH (09:05)
[2019-07-22] MEDS: BENAZEPRIL 5 MG TAB PO SCH (09:06)
[2019-07-22] MEDS: MULTIVIT/CA CARB/B CMPLX/FA TAB PO SCH (09:06)
[2019-07-22] MEDS: NIFEdipine (XL) 30 MG TAB PO SCH (09:06)
[2019-07-22] MEDS: LINAGLIPTIN 5 MG TABLET PO SCH (09:06)
[2019-07-22] MEDS: TACROLIMUS 1 MG CAP PO SCH ×2 (09:06→21:23)
[2019-07-22] MEDS: LORAZEPAM 2 MG INJ IV PRN ×2 (09:08→17:49)
[2019-07-22] MEDS: CEFAZOLIN 1 GM/50 ML (PMX) 50 ML IVPB SCH (09:08)
[2019-07-23] VITALS (18 sets, daily range): BP systolic 110–160; BP diastolic 47–98; PULSE 53–80; RESP 18–20
[2019-07-23] MEDS: LORAZEPAM 2 MG INJ IV PRN ×2 (00:34→13:09)
[2019-07-23] MEDS: ACCU-CHEK XX SCH (02:00)
[2019-07-23] MEDS: CIPROFLOXACIN 500 MG TAB PO SCH (05:57)
[2019-07-23] MEDS: SEVELAMER CARBONATE 800 MG TABLET PO SCH ×3 (10:23→18:22)
[2019-07-23] MEDS: INSULIN ASPART [NOVOLOG] 3 ML PEN SC SCH ×4 (10:23→20:22)
[2019-07-23] MEDS: TACROLIMUS 1 MG CAP PO SCH ×2 (10:24→20:21)
[2019-07-23] MEDS: MULTIVIT/CA CARB/B CMPLX/FA TAB PO SCH (10:24)
[2019-07-23] MEDS: LINAGLIPTIN 5 MG TABLET PO SCH (10:24)
[2019-07-23] MEDS: predniSONE 5 MG TAB PO SCH (10:24)
[2019-07-23] MEDS: NIFEdipine (XL) 30 MG TAB PO SCH (10:25)
[2019-07-23] MEDS: BENAZEPRIL 5 MG TAB PO SCH (10:25)
[2019-07-23] MEDS: HYDROmorphONE 0.5 MG/0.5 ML SYG IV PRN ×3 (10:29→20:23)
[2019-07-23] MEDS: HEPARIN 1000 UNITS/ML 10 ML INJ CATHETER SCH (11:54)
[2019-07-23] MEDS: CEFAZOLIN 1 GM/50 ML (PMX) 50 ML IVPB SCH (13:10)
[2019-07-23] MEDS: EPOETIN ALFA-EPBX (ESRD) 3,000 UNIT/ML VIAL IV SCH (18:29)
[2019-07-24] MEDS: HYDROmorphONE 0.5 MG/0.5 ML SYG IV PRN ×5 (00:08→22:46)
[2019-07-24] MEDS: LORAZEPAM 2 MG INJ IV PRN ×2 (00:08→13:10)
[2019-07-24 00:15] VITALS: BP 134/56; PULSE 65; RESP 19
[2019-07-24] MEDS: ACCU-CHEK XX SCH (02:00)
[2019-07-24 03:54] VITALS: BP 118/51; PULSE 70; RESP 19
[2019-07-24] MEDS: CIPROFLOXACIN 500 MG TAB PO SCH (05:53)
[2019-07-24 07:40] VITALS: BP 111/59; PULSE 74; RESP 20
[2019-07-24] MEDS: SEVELAMER CARBONATE 800 MG TABLET PO SCH ×3 (07:55→17:18)
[2019-07-24] MEDS: INSULIN ASPART [NOVOLOG] 3 ML PEN SC SCH ×4 (07:55→21:00)
[2019-07-24] MEDS: MULTIVIT/CA CARB/B CMPLX/FA TAB PO SCH (08:50)
[2019-07-24] MEDS: CEFAZOLIN 1 GM/50 ML (PMX) 50 ML IVPB SCH (08:52)
[2019-07-24] MEDS: predniSONE 5 MG TAB PO SCH (08:53)
[2019-07-24] MEDS: BENAZEPRIL 10 MG TAB PO SCH (08:53)
[2019-07-24] MEDS: LINAGLIPTIN 5 MG TABLET PO SCH (08:54)
[2019-07-24] MEDS: NIFEdipine (XL) 30 MG TAB PO SCH (08:54)
[2019-07-24] MEDS: TACROLIMUS 1 MG CAP PO SCH ×2 (08:54→21:35)
[2019-07-24 11:43] VITALS: BP 121/53; PULSE 73; RESP 20
[2019-07-24 15:09] VITALS: BP 143/56; PULSE 78; RESP 20
[2019-07-24 19:36] VITALS: BP 131/53; PULSE 75; RESP 19
[2019-07-25] VITALS (7 sets, daily range): BP systolic 91–225; BP diastolic 40–114; PULSE 62–82; RESP 17–19
[2019-07-25] MEDS: LORAZEPAM 2 MG INJ IV PRN ×3 (00:32→23:32)
[2019-07-25] MEDS: ACCU-CHEK XX SCH (02:00)
[2019-07-25] MEDS: CIPROFLOXACIN 500 MG TAB PO SCH (06:14)
[2019-07-25] MEDS: INSULIN ASPART [NOVOLOG] 3 ML PEN SC SCH ×4 (07:55→20:46)
[2019-07-25] MEDS: HYDROmorphONE 0.5 MG/0.5 ML SYG IV PRN ×3 (08:12→19:21)
[2019-07-25] MEDS: CEFAZOLIN 1 GM/50 ML (PMX) 50 ML IVPB SCH (08:14)
[2019-07-25] MEDS: ERGOCALCIFEROL 50,000 UNIT CAP PO SCH (08:16)
[2019-07-25] MEDS: SEVELAMER CARBONATE 800 MG TABLET PO SCH ×3 (08:16→17:02)
[2019-07-25] MEDS: predniSONE 5 MG TAB PO SCH (08:17)
[2019-07-25] MEDS: LINAGLIPTIN 5 MG TABLET PO SCH (08:17)
[2019-07-25] MEDS: BENAZEPRIL 10 MG TAB PO SCH (08:17)
[2019-07-25] MEDS: TACROLIMUS 1 MG CAP PO SCH ×2 (08:17→20:46)
[2019-07-25] MEDS: MULTIVIT/CA CARB/B CMPLX/FA TAB PO SCH (08:17)
[2019-07-25] MEDS: NIFEdipine (XL) 30 MG TAB PO SCH (08:17)
[2019-07-26] VITALS (20 sets, daily range): BP systolic 114–215; BP diastolic 30–102; PULSE 55–79; RESP 17–20
[2019-07-26] MEDS: ACCU-CHEK XX SCH (02:00)
[2019-07-26] MEDS: CIPROFLOXACIN 500 MG TAB PO SCH (05:54)
[2019-07-26] MEDS: HYDROmorphONE 0.5 MG/0.5 ML SYG IV PRN ×2 (05:59→12:31)
[2019-07-26] MEDS: INSULIN ASPART [NOVOLOG] 3 ML PEN SC SCH ×2 (07:48→11:03)
[2019-07-26] MEDS: SEVELAMER CARBONATE 800 MG TABLET PO SCH ×2 (08:09→11:03)
[2019-07-26] MEDS: predniSONE 5 MG TAB PO SCH (08:10)
[2019-07-26] MEDS: CEFAZOLIN 1 GM/50 ML (PMX) 50 ML IVPB SCH (08:10)
[2019-07-26] MEDS: MULTIVIT/CA CARB/B CMPLX/FA TAB PO SCH (08:10)
[2019-07-26] MEDS: LINAGLIPTIN 5 MG TABLET PO SCH (08:10)
[2019-07-26] MEDS: TACROLIMUS 1 MG CAP PO SCH (08:10)
[2019-07-26] MEDS: BENAZEPRIL 10 MG TAB PO SCH (09:00)
[2019-07-26] MEDS: NIFEdipine (XL) 30 MG TAB PO SCH (09:00)
[2019-07-26] MEDS: HEPARIN 1000 UNITS/ML 10 ML INJ CATHETER SCH (13:06)
== END 2019-07-26 15:10 | disposition home or self-care (01) | DRG 255 ==
LOC: E/R 10:34 → PP2 15:26 → 6WM 07-16 07:41 → ICU 07-16 09:06 → TEL 07-17 16:52
PROVIDERS: ADMIT Internal Medicine; ATTEND Internal Medicine
PROC: 5A1D70Z Performance of Urinary Filtration, Intermittent, Less than 6 Hours Per Day (ICD-10-PCS; 2019-07-02)
PROC: 30233N1 Transfusion of Nonautologous Red Blood Cells into Peripheral Vein, Percutaneous Approach (ICD-10-PCS; 2019-07-13)
PROC: 0X6Q0Z0 Detachment at Right Middle Finger, Complete, Open Approach (ICD-10-PCS; principal; 2019-07-15 15:30)
PROC: 5A09457 Assistance with Respiratory Ventilation, 24-96 Consecutive Hours, Continuous Positive Airway Pressure (ICD-10-PCS; 2019-07-16)
DX: E11.52 Type 2 diabetes mellitus with diabetic peripheral angiopathy with gangrene (principal); N18.6 End stage renal disease; J18.9 Pneumonia, unspecified organism; J96.01 Acute respiratory failure with hypoxia; J81.0 Acute pulmonary edema; I50.23 Acute on chronic systolic (congestive) heart failure; I13.2 Hypertensive heart and chronic kidney disease with heart failure and with stage 5 chronic kidney disease, or end stage renal disease; M86.9 Osteomyelitis, unspecified; R64 Cachexia; I47.1 Supraventricular tachycardia; Z68.1 Body mass index [BMI] 19.9 or less, adult; N25.81 Secondary hyperparathyroidism of renal origin; L02.511 Cutaneous abscess of right hand; L98.499 Non-pressure chronic ulcer of skin of other sites with unspecified severity; D63.1 Anemia in chronic kidney disease; E11.69 Type 2 diabetes mellitus with other specified complication; E11.622 Type 2 diabetes mellitus with other skin ulcer; E11.22 Type 2 diabetes mellitus with diabetic chronic kidney disease; E11.40 Type 2 diabetes mellitus with diabetic neuropathy, unspecified; E11.21 Type 2 diabetes mellitus with diabetic nephropathy; E87.70 Fluid overload, unspecified; E87.5 Hyperkalemia; E55.9 Vitamin D deficiency, unspecified; M06.9 Rheumatoid arthritis, unspecified; B18.2 Chronic viral hepatitis C; B95.7 Other staphylococcus as the cause of diseases classified elsewhere; B96.20 Unspecified Escherichia coli [E. coli] as the cause of diseases classified elsewhere; B96.1 Klebsiella pneumoniae [K. pneumoniae] as the cause of diseases classified elsewhere; Z89.022 Acquired absence of left finger(s); Z89.021 Acquired absence of right finger(s); Z99.2 Dependence on renal dialysis; Z87.891 Personal history of nicotine dependence; Z79.84 Long term (current) use of oral hypoglycemic drugs
CPT/HCPCS: 36430; 36600; 71045; 73218; 76705; 78452; 80048; 80053; 80061; 80202; 82550; 82553; 82652; 82803; 82962; 83036; 83540; 83605; 83690; 83735; 83970; 84100; 84132; 84145; 84439; 84443; 84484; 85025; 85610; 85651; 85730; 86644; 86850; 86900; 86901; 86920; 87070; 87075; 87081; 87102; 87340; 88305; 88311; 90935; 93005; 93017; 93306; 94660; 96374; 97116; 97161; 97164; 97530; A9500; A9505; J0153; J0282; J0360; J0690; J1170; J1335; J1644; J1815; J1885; J1940; J2060; J2250; J2270; J2370; J2405; J2543; J2785; J2795; J3010; J3370; J7030; J7042; J7050; J7060; J7120; J7507; J7510; J7512; P9016; P9047; Q5105